=== PATIENT | female | born 1985 | race Caucasian/White ===

== ENCOUNTER 2022-12-25 10:53 | Outpatient (RCR) | payer OTHER, SELFPAY | END 2023-03-30 12:05 | disposition home or self-care (01) | LOC: PT 10:53 | PROVIDERS: Visit Provider Nurse Practitioner Family | DX: M26.609 Unspecified temporomandibular joint disorder, unspecified side (principal) | CPT/HCPCS: 20560; 20561; 97110; 97140; 97161; 97162 ==

== ENCOUNTER 2023-01-20 14:51 | Outpatient (OUT) | payer OTHER, SELFPAY ==
--- NOTE | 2023-01-20 15:01 | XR_ITS ---
The [address] [address] Patient Name: LADI YUN MRN: [id number] date: 1985 Sex: F Assigned Patient Location: [facility] Current Patient Location: [facility] Accession/Order Number: [id number] Exam Date: 01/20/2023 15:15 Report Date: 01/21/2023 07:26 At the request of: GINNY PATEL Procedure: XR cervical spine 2-3V EXAMINATION: XR cervical spine 2-3V HISTORY: Cervicalgia M54.2 COMPARISON: No relevant comparison available. FINDINGS: BONES: Normal alignment with no acute fracture or spondylolisthesis. Mild posterior degenerative spondylosis C5-C7 DISC SPACES: Normal. No significant disc height narrowing, subluxation, or endplate abnormality. PARASPINOUS: Negative. No paraspinous abnormality is seen. OTHER: Negative. XR/XR cervical spine 2-3V IMPRESSION: Mild posterior spondylosis C5-C7 Electronically authenticated by: NELL MAS Date: 01/21/2023 07:26
--- NOTE | 2023-01-20 15:01 | XR_ITS ---
[address] [address] Patient Name: LADI YUN MRN: [id number] date: 1985 Sex: F Assigned Patient Location: [facility] Current Patient Location: Accession/Order Number: [id number] Exam Date: 01/20/2023 15:15 Report Date: 01/21/2023 07:24 At the request of: GINNY PATEL Procedure: XR mandible min 4V PROCEDURE: XR mandible min 4V COMPARISON: None. 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 SOFT TISSUES:Negative. No visible soft tissue swelling. EFFUSION:None visible. OTHER: Negative. XR/XR mandible min 4V IMPRESSION: No acute radiographic abnormality Electronically authenticated by: NELL MAS Date: 01/21/2023 07:24
== END 2023-01-20 14:52 | disposition home or self-care (01) ==
LOC: RAD 14:54
PROVIDERS: PCP Nurse Practitioner Family; Visit Provider Nurse Practitioner Family
DX: M54.2 Cervicalgia (principal); M26.609 Unspecified temporomandibular joint disorder, unspecified side; R29.810 Facial weakness; M47.812 Spondylosis without myelopathy or radiculopathy, cervical region
CPT/HCPCS: 70110; 72040

== ENCOUNTER 2023-01-22 09:58 | Outpatient (RCR) | payer OTHER, SELFPAY | END 2023-03-10 12:04 | disposition home or self-care (01) | LOC: OT 09:58 | PROVIDERS: PCP Nurse Practitioner Family; Visit Provider Nurse Practitioner Family | DX: M54.2 Cervicalgia (principal); M50.30 Other cervical disc degeneration, unspecified cervical region | CPT/HCPCS: 97140; 97166; 97535 ==

== ENCOUNTER 2023-01-26 09:00 | Outpatient (OUT) | payer OTHER, SELFPAY ==
--- NOTE | 2023-01-26 09:04 | MR_ITS ---
The [address] [address] Patient Name: LADI YUN MRN: [id number] date: 1985 Sex: F Assigned Patient Location: MRI Current Patient Location: Accession/Order Number: [id number] Exam Date: 01/26/2023 09:05 Report Date: 01/27/2023 07:53 At the request of: GINNY PATEL Procedure: MR head/brain wo con EXAMINATION: MR head/brain wo con HISTORY: Facial Weakness R29.810 ; loss of sensation on right side of face; right hearing loss COMPARISON: No relevant comparison available. TECHNIQUE: A variety of imaging planes and parameters were utilized for visualization of suspected pathology. Images were performed without contrast. FINDINGS: CEREBRUM: No edema, hemorrhage, mass, acute infarction, or inappropriate atrophy. CEREBELLUM: Cerebellar tonsils extend 3 mm below the foramen magnum. No edema, hemorrhage, mass, acute infarction, or inappropriate atrophy. BRAINSTEM: No edema, hemorrhage, mass, acute infarction, or inappropriate atrophy. CSF SPACES: Ventricles, cisterns, and sulci are appropriate for age. No hydrocephalus, subarachnoid hemorrhage, or mass. SKULL: No mass or other significant visible lesion. SINUSES: Limited views demonstrate no significant mucosal thickening or fluid. ORBITS: Limited views are unremarkable. OTHER: Negative. MR/MR head/brain wo con IMPRESSION: 1. Cerebellar tonsillar ectopia. 2. Otherwise unremarkable brain. No specific findings to account for patient's symptoms. Electronically authenticated by: JACKY FRITZ Date: 01/27/2023 07:53
== END 2023-01-26 09:01 | disposition home or self-care (01) ==
LOC: MRI 09:00
PROVIDERS: PCP Nurse Practitioner Family; Visit Provider Nurse Practitioner Family
DX: R29.810 Facial weakness (principal); Q04.8 Other specified congenital malformations of brain; M26.609 Unspecified temporomandibular joint disorder, unspecified side; M54.2 Cervicalgia
CPT/HCPCS: 70551

== ENCOUNTER 2023-03-17 15:15 | Outpatient (OUT) | payer OTHER, SELFPAY ==
[2023-03-18 05:07] LABS: Varicella-Zoster V Ab, IgG 458 index (Immune >165)
== END 2023-03-17 15:16 | disposition home or self-care (01) ==
LOC: LAB 15:16
PROVIDERS: PCP Nurse Practitioner Family; Visit Provider Nurse Practitioner Family
DX: Z02.1 Encounter for pre-employment examination (principal)
CPT/HCPCS: 36415; 86787

== ENCOUNTER 2023-05-10 13:04 | Outpatient (RCR) | payer OTHER, SELFPAY | END 2023-06-01 15:04 | disposition home or self-care (01) | LOC: OT 13:04 | PROVIDERS: PCP Nurse Practitioner Family | DX: M54.2 Cervicalgia (principal); R68.84 Jaw pain; M54.9 Dorsalgia, unspecified | CPT/HCPCS: 97140; 97166 ==

== ENCOUNTER 2023-05-12 13:02 | Outpatient (RCR) | payer OTHER, SELFPAY | END 2023-06-01 15:05 | disposition home or self-care (01) | LOC: PT 13:02 | PROVIDERS: PCP Nurse Practitioner Family | DX: M54.2 Cervicalgia (principal); R68.84 Jaw pain; M54.9 Dorsalgia, unspecified | CPT/HCPCS: 97010; 97012; 97014; 97140; 97161 ==

== ENCOUNTER 2023-06-11 06:39 | Outpatient (RCR) | payer OTHER, SELFPAY | END 2023-07-04 08:00 | disposition home or self-care (01) | LOC: PT 06:39 | PROVIDERS: PCP Nurse Practitioner Family | DX: M54.2 Cervicalgia (principal); R68.84 Jaw pain; M54.9 Dorsalgia, unspecified | CPT/HCPCS: 97010; 97012; 97014; 97140; 97164 ==

== ENCOUNTER 2023-06-11 15:07 | Outpatient (RCR) | payer OTHER, SELFPAY | END 2023-07-04 08:13 | disposition home or self-care (01) | LOC: OT 15:07 | PROVIDERS: PCP Nurse Practitioner Family | DX: M54.2 Cervicalgia (principal); R68.84 Jaw pain; M54.9 Dorsalgia, unspecified | CPT/HCPCS: 97140 ==

== ENCOUNTER 2023-07-05 09:32 | Outpatient (RCR) | payer OTHER, SELFPAY | END 2023-11-09 16:12 | disposition home or self-care (01) | LOC: OT 09:32 | PROVIDERS: PCP Nurse Practitioner Family; Visit Provider Physician Assistant | DX: M54.2 Cervicalgia (principal); M54.9 Dorsalgia, unspecified; R68.84 Jaw pain | CPT/HCPCS: 97140; 97530; 97535 ==

== ENCOUNTER 2023-07-05 09:33 | Outpatient (RCR) | payer OTHER, SELFPAY | END 2023-07-30 15:29 | disposition home or self-care (01) | LOC: PT 09:33 | PROVIDERS: PCP Nurse Practitioner Family; Visit Provider Physician Assistant | DX: M54.2 Cervicalgia (principal); M54.9 Dorsalgia, unspecified; R68.84 Jaw pain ==

== ENCOUNTER 2023-11-12 09:31 | Outpatient (RCR) | payer OTHER, SELFPAY | END 2023-12-08 11:54 | disposition home or self-care (01) | LOC: PT 09:31 | PROVIDERS: PCP Nurse Practitioner Family | DX: M48.02 Spinal stenosis, cervical region (principal); G99.2 Myelopathy in diseases classified elsewhere | CPT/HCPCS: 97014; 97110; 97140; 97162 ==

== ENCOUNTER 2023-12-14 10:21 | Outpatient (OUT) | payer OTHER, SELFPAY ==
[2023-12-14 11:16] LABS: Basophils Percent Auto 0.6 % (0.2-2.0); Eosinophils Absolute Auto 0.1 10^3/uL (0.0-0.7); Eosinophils Percent Auto 1.2 % (0.9-7.0); Hematocrit 38.3 % (36.0-48.0); Hemoglobin 12.1 g/dL (12.0-16.0); Immature Granulocytes Abs Auto 0.04 10^3/uL (0.00-0.03); Immature Granulocytes Pct Auto 0.6 % (0.0-0.5); Lymphocytes Absolute Auto 2.7 10^3/uL (1.2-3.8); Lymphocytes Percent Auto 37.6 % (20.5-60.0); Mean Corpuscular HGB Conc 31.6 g/dL (29.9-35.2); Mean Corpuscular Hemoglobin 25.9 pg (26.7-34.0); Monocytes Absolute Auto 0.5 10^3/uL (0.3-0.8); Monocytes Percent Auto 7.2 % (1.7-12.0); Neutrophils Absolute Auto 3.8 10^3/uL (1.4-6.5); Neutrophils Percent Auto 52.8 % (43.0-75.0); Platelet Count 320 10^3/uL (150-450); Red Blood Count 4.67 10^6/uL (4.20-5.40); Red Cell Distribution Width 17.7 % (11.0-15.0); White Blood Count 7.2 10^3/uL (4.0-11.0)
[2023-12-14 11:26] LABS: INR 0.94; Partial Thromboplastin Time 29.3 sec (22.3-36.2)
[2023-12-14 11:38] LABS: Estimated Average Glucose 108 mg/dL; Glycohemoglobin A1C 5.4 % (4.5-6.2)
[2023-12-14 11:45] LABS: HCG Quantitative <1 mIU/mL; Thyroid Stimulating Hormone 0.741 uIU/mL (0.358-3.740)
[2023-12-14 12:01] LABS: Free T4 1.08 ng/dL (0.76-1.46)
== END 2023-12-14 10:22 | disposition home or self-care (01) ==
PROVIDERS: Visit Provider Physician Assistant
DX: N92.0 Excessive and frequent menstruation with regular cycle (principal)
CPT/HCPCS: 36415; 83036; 84439; 84443; 84702; 85025; 85610; 85730

== ENCOUNTER 2023-12-15 07:02 | Outpatient (OUT) | payer OTHER, SELFPAY ==
--- NOTE | 2023-12-15 07:06 | US_ITS ---
The [address] [address] Patient Name: LADI YUN MRN: [id number] date: 1985 Sex: F Assigned Patient Location: US Current Patient Location: Accession/Order Number: [id number] Exam Date: 12/15/2023 07:07 Report Date: 12/15/2023 07:43 At the request of: STEVENSON JAEGER Procedure: US pelvis w/ transvaginal EXAMINATION: US pelvis w/ transvaginal HISTORY: Menorrhagia N92.0 COMPARISON: No relevant comparison available. FINDINGS: Transabdominal and transvaginal images The uterus is normal in size, contour and echotexture measuring 6.6 x 2.7 x 3.9 cm. No focal mass. The uterus is anteverted. Endometrium measures 2 mm, normal. The ovaries were not visualized likely due to bowel gas. No free fluid US/US pelvis w/ transvaginal IMPRESSION: Nonvisualization of the ovaries Thin endometrial stripe Electronically authenticated by: NELL MAS Date: 12/15/2023 07:43
--- OUTSIDE RECORDS SUMMARY | 2023-12-15 07:06 | XMS_ITS | CCD ---
Author Organization [facility] Inform ion Partnership [facility] Care Team Providers Care Round Kiln Drawer Name Role Phone MIRIAM CAVAZOS Primary Care Unavailable PROVIDER, UNKNOWN Admitting Unavailable GENARO CASTELLANOS Attending Unavailable PATIENT, SELF Referring Unavailable TERESA PATEL Primary Care Physician Teresa Patel CNP Primary Care Provider Amara Palacio CNP Unavailable TERESA PATEL Admitting Unavailable TERESA PATEL Attending Unavailable RADHA, DR MONCADA Primary Care Unavailable TERESA PATEL Consulting Unavailable TERESA PATEL Admitting Unavailable TERESA PATEL Attending Unavailable RADHA, DR MONCADA Primary Care Unavailable WEST, DR CAMEJO Consulting Unavailable TERESA PATEL Consulting Unavailable MISC, DR ZIMMERMAN Admitting Unavailable MISC, DR ZIMMERMAN Attending Unavailable TERESA PATEL Primary Care Unavailable MISC, DR ZIMMERMAN Consulting Unavailable RADHA, DR MONCADA Primary Care Unavailable LOREE MARTEL Admitting Unavailable LOREE MARTEL Attending Unavailable LOREE MARTEL Consulting Unavailable RADHA, DR MONCADA Primary Care Unavailable PAY, DR PADILLA Admitting Unavailable PAY, DR PADILLA Attending Unavailable WEST, DR CAMEJO Consulting Unavailable PAY, DR PADILLA Consulting Unavailable RADHA, DR MONCADA Primary Care Unavailable ZULEYMA MARTELID Admitting Unavailable LOREE MARTEL Attending Unavailable WEST, DR CAMEJO Consulting Unavailable LOREE MARTEL Consulting Unavailable DWIGHT, TERESA Admitting Unavailable TERESA PATEL Attending Unavailable RADHA, DR MONCADA Primary Care Unavailable TERESA PATEL Admitting Unavailable TERESA PATEL Attending Unavailable RADHA, DR MONCADA Primary Care Unavailable DWIGHT TERESA Admitting Unavailable TERESA PATEL Attending Unavailable TERESA PATEL Primary Care Unavailable TERESA PATEL Consulting Unavailable Miriam Cavazos Primary Care Provider [phone] Dwight FINANCIAL INSTITUTION PRESIDENT, Teresa S Primary Care Provider Pia FINANCIAL INSTITUTION PRESIDENT, Amara Unavailable [phone] Miriam Cavazos Primary Care Unavailable KYLEE VALENCIA Attending Unavailable Mizanin ABA Reuben L Primary Care Provider Bonifacio ARBORIST CLIMBER, Nitza Unavailable Unavailable Dwight FINANCIAL INSTITUTION PRESIDENT, Teresa S Primary Care Provider Bonifacio ARBORIST CLIMBER, Nitza Unavailable Unavailable Elizabeth Piedra Unavailable PROVIDER, UNKNOWN Referring Unavailable MIZANIN, REUBEN L Primary Care Unavailable DWIGHT, TERESA S Primary Care Unavailable ZORAIDA VALLE Attending Unavailable TRISTAN GUALLPA Referring Unavailabl e ZORAIDA VALLE Referring Unavailable MIZANIN, REUBEN L Primary Care Unavailable MIZANIN, REUBEN L Attending Unavailable MAURICE LEÓN Referring Unavailable DWIGHT, TERESA S Primary Care Unavailable MAURICE LEÓN Referring Unavailable MAURICE LEÓN Attending Unavailable DWIGHT, TERESA S Primary Care Unavailable MIZANIN, REUBEN L Referring Unavailable MIZANIN, REUBEN L Primary Care Unavailable DWIGHT, TERESA S Primary Care Unavailable TRISTAN GUALLPA Attending Unavailabl e DWIGHT, TERESA S Primary Care Unavailable TRISTAN GUALLPA Referring Unavailabl e TRISTAN GUALLPA Attending Unavailabl e DWIGHT, TERESA S Referring Unavailable DWIGHT, TERESA S Primary Care Unavailable TRISTAN GUALLPA Attending Unavailabl e MIZANIN, REUBEN L Primary Care Unavailable HUY ASCENCIO Attending Unavailable MIZANIN, REUBNE L Referring Unavailable MIZANIN, REUBEN L Primary Care Unavailable BUTT, BILAL MISTY Referring Unavailable ZORAIDA VALLE Referring Unavailable ZORAIDA VALLE Attending Unavailable MIZANIN, REUBEN L Primary Care Unavailable DWIGHT, TERESA S Referring Unavailable DWIGHT, TERESA S Primary Care Unavailable TRISTAN GUALLPA Attending Unavailabl e MIZANIN, REUBEN L Primary Care Unavailable NAYANA MCLEAN Referring Unavailable MIZANIN, REUBEN L Primary Care Unavailable BUTT, BILAL MISTY Referring Unavailable MIZANIN, REUBEN L Primary Care Unavailable HUY ASCENCIO Attending Unavailable MIZANIN, REUBEN L Primary Care Unavailable ASCENCIO, HUY Referring Unavailable MAURICE LEÓN N Referring Unavailable HAZARIKA, SUROVI Attending Unavailable MIZANIN, REUBEN L Primary Care Unavailable MIZANIN, REUBEN L Primary Care Unavailable MIZANIN, REUBEN L Primary Care Unavailable BUTT, BILAL MISTY Referring Unavailable MIZANIN, REUBEN L Attending Unavailable MIZANIN, REUBEN L Primary Care Unavailable HAZARIKA, SUROVI Referring Unavailable MIZANIN, REUBEN L Primary Care Unavailable CHANTAL HUMPHREY Attending Unavailable MIZANIN, REUBEN L Referring Unavailable MIZANIN, REUBEN L Primary Care Unavailable TRISTAN GUALLPA Attending Unavailabl e Mizanin ABA Reuben L Primary Care Provider BUTT, BILAL MISTY Referring Unavailable MIZANIN, REUBEN L Primary Care Unavailable BUTT, BILAL MISTY Attending Unavailable BUTT, BILAL MISTY Referring Unavailable MIZANIN, REUBEN L Primary Care Unavailable BUTT, BILAL MISTY Attending Unavailable BUTT, BILAL MISTY Referring Unavailable MIZANIN, REUBEN L Primary Care Unavailable BUTT, BILAL MISTY Admitting Unavailable BUTT, BILAL MISTY Attending Unavailable MIZANIN, REUBEN L Primary Care Unavailable NAPOLEON BISHOP Consulting Unavailabl e BUTT, BILAL MISTY Attending Unavailable ASCENCIO, HUY Referring Unavailable MIZANIN, REUBEN L Primary Care Unavailable BUTT, BILAL MISTY Attending Unavailable BUTT, BILAL MISTY Referring Unavailable MIZANIN, REUBEN L Primary Care Unavailable Mikal Garcia Attending Unavailable Silas Durant Attending Unavailable Amara Palacio Attending Unavailable Jimmie Barkley Admitting Unavailable Jimmie Barkley Attending Unavailable Jimmie Barkley Referring Unavailable Erika Flores Attending Unavailable Erika Flores Admitting Unavailable BROOK PIERSON Attending Unavailable STEVENSON JAEGER Attending Unavailable Allergies Allergy Classification Reported Allergen(s) Allergy Type Date of Onset Reaction(s) Facility cariprazine (1 source) cariprazine Drug Allergy 2 Other: See Comments, Unknown [facility] DOPamine Antagonists (2 sources) Metoclopramide Drug Allergy 0 Other: See Comments, Mental Status Change [facility] Penicillins (antibiotic) (1 source) Penicillins Drug Allergy 9 [facility] (20 sources) Metoclopramide; Translations: [METOCLOPRAMIDE] Drug Allergy 0 Other: See Comments, rash [facility] (20 sources) Amoxicillin; Translations: [amoxicillin] Drug Allergy 3 Unknown (qualifier value), [facility] (20 sources) Amoxicillin / Clavulanate; Translations: [amoxicillin-clavu lanate] Drug Allergy [facility] (20 sources) cariprazine; Translations: [cariprazine] Drug Allergy 2 [facility] (20 sources) cariprazine; Translations: [CARIPRAZINE] Drug Allergy 2 Other: See Comments, Unknown [facility] (20 sources) Metoclopramide; Translations: [METOCLOPRAMIDE HCL] Drug Allergy 0 Mental Status Change [facility] Work Phone: (20 sources) Penicillins; Translations: [PENICILLINS] Drug Allergy 9 [facility] (20 sources) Iothalamic Acid; Translations: [IOTHALAMIC ACID] Drug Allergy 4 Other: See Comments [facility] (5 sources) Iothalamate; Translations: [iothalamate] Drug Allergy 4 Unknown [facility] Repository (2 sources) Penicillin Drug Allergy [facility] Repository (2 sources) Iothalamate; Translations: [iothalamate] Drug Allergy 4 [facility] Repository Medications Current Medications Medication Drug Class(es) Dates Sig (Normalized) Sig (Original) acetaminophen 325 mg / HYDROcodone bitartrate 5 mg oral tablet (4 sources) Opioid Agonist Start: 01-12-2022 [place] 325 mg-5 mg oral tablet 1 tab(s), Oral, q6hr as needed for pain, 7 tab(s), Refill(s) 0, [id number], 152, cm, 01/12/22 9:47:00 EDT, Height/Length Dosing, 68, kg, 01/12/22 9:47:00 EDT, Weight Dosing Start Date: 01/12/22 Status: Ordered [id number] 200 actuat albuterol 0.09 mg/actuat metered dose inhaler (20 sources) beta2-Adrenergic Agonist Start: 06-22-2023 End: 09-20-2023 take 1-2 puff(s) by inhalation every four hours as needed for wheezing albuterol HFA (PROVENTIL HFA) 90 mcg/actuation inhaler Inhale 1-2 Puffs as instructed every 4 hours as needed for wheezing/shortne ss of breath. 18 g 0 06/22/2023 Active Comment on above: Inhale 1-2 Puffs as instructed every 4 hours as needed for wheezing/shortness of breath. celecoxib 200 mg oral capsule (20 sources) Nonsteroidal Anti-inflammatory Drug Start: 04-09-2023 End: 12-13-2023 take 1 capsule by mouth once daily celecoxib (CELEBREX) 200 mg capsule take 1 capsule by mouth every day 30 capsule 5 12/13/2023 Active Comment on above: Take 1 capsule by mo ut once daily. TAKE 1 CAPSULE BY MO [facility] EVERY DAY cetirizine hydrochloride 10 mg oral tablet (20 sources) Histamine-1 Receptor Antagonist Start: 10-01-2023 take 1 tablet by mouth once daily at bedtime cetirizine (ZYRTEC) 10 mg tablet Take 1 tablet by mouth daily at bedtime. 90 tablet 1 10/01/2023 Active Start: 01-07-2022 take 1 tablet by layo th once daily at bedtime cetirizine (ZYRTEC) 10 mg tablet Take 10 mg by mouth daily at bedtime. 0 01/07/2022 Active Start: 11-30-2018 End: 03-19-2022 take 1 capsule by mouth once daily as needed cetirizine 10 mg oral capsule 10 mg = 1 cap(s), Oral, Daily, PRN for allergy symptoms, # 40 cap(s), Refills(s) 0 Start Date: 11/30/18 Status: Ordered Comment on above: Take by mouth. Take 10 mg by mouth daily at bedtime. Take 1 tablet by layo th daily at bedtime. clonazePAM 1 mg oral tablet (1 source) Benzodiazepine End: 03-19-20 take 1 tablet by mouth every twelve hours as needed clonazePAM (KLONOPIN) 1 mg tablet Take 1 mg by mouth twice daily as needed. 0 03/19/2022 Discontinued Comment on above: Take 1 mg by mouth t wice daily as needed. dicyclomine hydrochloride 10 mg oral capsule (20 sources) Anticholinergic Start: 12-25-19 23 take 1 capsule by mouth four times daily as needed Bentyl 10 mg Cap 10 mg = 1 cap(s), Oral, QID, PRN Other (see comment), For abdominal cramping, # 16 cap(s), Refills(s) 0, Pharmacy: [facility] #[id number], 152, cm, 12/23/22 19:46:00 EDT, Height/Length Dosing, 58, kg, 12/23/22 19:46:00 EDT, Weight Dosing Start Date: 12/24/22 Status: Ordered Start: 11-14-2021 End: 08-05-2022 take 1 capsule by mouth four times daily Bentyl 10 mg Cap 10 mg = 1 cap(s), Oral, QID, X 7 day(s), # 28 cap(s), Refills(s) 0, Pharmacy: [facility]/pharmacy #[id number], 152, cm, 07/29/22 2:29:00 EST, Height/Length Dosing, 64, kg, 07/29/22 2:29:00 EST, Weight Dosing Start Date: 07/29/22 Stop Date: 08/05/22 Status: Ordered Comment on above: 1 capsule. DULoxetine 60 mg delayed release oral capsule (1 source) Serotonin and Norepinephrine Reuptake Inhibitor Start: 09-09-19 17 take 1 capsule by mouth once daily duloxetine (CYMBALTA) 60 MG capsule Take 1 Capsule by mouth daily. 30 Capsule 5 09/08/2016 Active Ethinyl Estradiol / Ferrous fumarate / Norethindrone (20 sources) Estrogen Start: 07-25-19 24 take 1 tablet by mouth once BLISOVI 24 FE 1 mg-20 mcg (24)/75 mg (4) Take 1 tablet by mouth every afternoon. 0 07/25/2023 Active Blisovi 24 Fe 1- 20 MG-MCG(24) Oral for 84 Days Active Comment on above: Take 1 tablet by layo th every afternoon. fenofibrate 48 mg oral tablet (1 source) Peroxisome Proliferator Receptor alpha Agonist Start: 10-09-2021 take 1 tablet by mouth once daily TriCor 48 mg Tab 48 mg = 1 tab(s), Oral, Daily, # 30 tab(s), Refills(s) 0 Start Date: 10/09/21 Status: Ordered fidaxomicin 200 mg oral tablet (5 sources) Macrolide Antibacterial Start: 03-19-2022 take 1 tablet by mouth twice daily Dificid 200 mg oral tablet 200 mg = 1 tab(s), Oral, BID, # 20 tab(s), Refills(s) 0, Pharmacy: [facility]/pharmacy #[id number], 152, cm, 03/19/22 14:05:00 EDT, Height/Length Dosing, 68.2, kg, 03/19/22 14:05:00 EDT, Weight Dosing Start Date: 03/19/22 Status: Ordered Start: 02-09-2022 Dificid 200 mg oral tablet Refills(s) 0, Infection or prophylaxis for antibiotics Start Date: 02/09/22 Status: Ordered folic acid 1 mg oral tablet (3 sources) Start: 11-07-2022 take 1 tablet by mouth once daily folic acid 1 mg Tab 1 mg = 1 tab(s), Oral, Daily, # 30 tab(s), Refills(s) 0, Pharmacy: [facility]/pharmacy #[id number], 152.4, cm, 11/06/22 14:36:00 EDT, Height/Length Dosing, 59.5, kg, 11/06/22 14:36:00 EDT, Weight Dosing Start Date: 11/07/22 Status: Ordered gabapentin 100 mg oral capsule (20 sources) Anti-epilepti c Agent Start: 10-22-2023 End: 11-21-2023 take 2 capsules by mouth every twelve hours gabapentin (NEURONTIN) 100 mg capsule Take 2 capsules by mouth every 12 hours for 30 days. 120 capsule 0 10/22/2023 Active Start: 07-19-2023 End: 02-28-2024 take 2 capsules by mouth twice daily gabapentin (NEURONTIN) 100 mg capsule TAKE 2 CAPSULES BY MOUTH TWICE A DAY FOR 90 DAYS 120 capsule 2 11/30/2023 02/28/2024 Active Start: 03-26-2023 End: 06-24-2023 take 2 capsules by mouth twice daily gabapentin (NEURONTIN) 100 mg capsule Take 2 capsules by mouth twice daily for 90 days. 120 capsule 2 03/26/2023 Active Gabapentin 100 M G Oral for 30 Days Active Comment on above: Take 2 capsules by m outh twice daily for 90 days. TAKE 2 CAPSULES BY M OUTH TWICE A DAY FOR 90 DAYS Take 2 capsules by m outh two times a day for 90 days. Take 2 BID Take 2 capsules by m outh every 12 hours for 30 days. 12 hr guaiFENesin 600 mg extended release oral tablet (20 sources) guaiFENesin (MUCINEX) 600 mg 12 hr tablet Take 1,200 mg by mouth twice daily as needed for cold/allergy symptoms. 0 Active Comment on above: Take 1,200 mg by layo th twice daily as needed for cold/allergy symptoms. ibuprofen 800 mg oral tablet (1 source) Nonsteroidal Anti-inflammatory Drug Start: 12-19-19 End: 03-19-20 take 1 tablet by mouth every eight hours as needed ibuprofen (MOTRIN) 800 mg tablet Take 1 tablet by mouth every 8 hours as needed. 30 tablet 0 12/18/2018 03/19/2022 Discontinued Comment on above: Take 1 tablet by [facility] every 8 hours as needed. lamoTRIgine (1 source) Mood Stabilizer, Anti-epileptic Agent End: 03-19-20 lamotrigine (LAMICTAL ORAL) Take by mouth. 0 03/19/2022 Discontinued Comment on above: Take by mouth. lisdexamfetamine dimesylate 20 mg oral capsule (20 sources) Central Nervous System Stimulant Start: 12-04-19 End: 04-09-20 VYVANSE 30 mg capsule Start: 07-29-2022 take 1 capsule by [facility] once daily VYVANSE 20 mg capsule Take 20 mg by mouth once daily. 0 03/24/2023 Active Comment on above: TAKE 1 CAPSULE BY MO [facility] EVERY DAY IN THE MORNING FOR 30 DAYS lurasidone hydrochloride 40 mg oral tablet (1 source) Atypical Antipsychotic End: 03-19-20 lurasidone (LATUDA) 40 mg tablet Take by mouth. 0 03/19/2022 Discontinued Comment on above: Take by mouth. magnesium oxide 400 mg oral tablet (1 source) Start: 01-13-20 End: 01-18-20 take 1 tablet by mouth once daily magnesium oxide 400 mg Tab 400 mg = 1 tab(s), Oral, Daily, X 5 day(s), # 5 tab(s), Refills(s) 0, Pharmacy: [facility]/pharmacy #[id number], 152, cm, 01/12/22 9:47:00 EDT, Height/Length Dosing, 68, kg, 01/12/22 9:47:00 EDT, Weight Dosing Start Date: 01/12/22 Stop Date: 01/17/22 Status: Ordered magnesium sulfate 225 MG / potassium chloride 188 MG / sodium sulfate 1479 MG Oral Tablet [Sutab] (2 sources) Start: 07-30-19 take 1 tablet by mouth once Sutab oral tablet See Instructions, 1 EA, Refill(s) 0, Please follow instructions per packaging and physician's handout, [facility]/pharmacy #[id number], 152, cm, 07/30/22 12:41:00 EST, Height/Length Dosing, 65, kg, 07/30/22 12:41:00 EST, Weight Dosing Start Date: 07/30/22 Status: Ordered melatonin 3 mg oral tablet (20 sources) Start: 11-08-19 take 1 tablet by mouth at bedtime as needed for sleep melatonin 3 mg Tab 3 mg = 1 tab(s), Oral, Bedtime, PRN Sleep, # 30 tab(s), Refills(s) 0, [id number] 152.4, cm, 11/06/22 14:36:00 EDT, Height/Length Dosing, 59.5, kg, 11/06/22 14:36:00 EDT, Weight Dosing Start Date: 11/07/22 Status: Ordered Comment on above: Take 3 mg by mouth. metoprolol tartrate 25 mg oral tablet (20 sources) beta-Adrenergic Jeanna Start: 02-03-20 take 1 mg by mouth twice daily Metoprolol tartrate 25 mg Tab mg tab(s), Oral, BID, Refills(s) 0 Start Date: 02/02/22 Status: Ordered Start: 01-30-2022 End: 03-18-2023 take 1 tablet by mouth twice daily metoprolol tartrate, short acting, (LOPRESSOR) 50 mg tablet Take 50 mg by mouth twice daily. 0 01/30/2022 03/18/2023 Discontinued Comment on above: Take 50 mg by mouth twice daily. montelukast (1 source) Leukotriene Receptor Antagonist End: 03-19-20 montelukast sodium (SINGULAIR ORAL) Take 30 mg by mouth. 0 03/19/2022 Discontinued Comment on above: Take 30 mg by mouth. nicotine 21 mg/24 hr Transderm ER Film (1 source) Start: 10-13-19 nicotine 21 mg/24 hr Transderm ER Film 1 patch(es), TransDermal, Daily, 30 EA, Refill(s) 0, [facility]/pharmacy #[id number], 152.4, cm, 10/09/21 9:00:00 EDT, Height/Length Dosing, 78, kg, 10/09/21 9:00:00 EDT, Weight Dosing Start Date: 10/12/21 Status: Ordered OLANZapine 5 mg oral tablet (11 sources) Atypical Antipsychotic Start: 09-09-19 take 3 tablets by mouth once daily OLANZapine (ZYPREXA) 5 mg tablet Take 15 mg by mouth once daily. 0 09/09/2023 Active Start: 09-09-2023 take 1 tablet by layo once daily OLANZapine (ZYPREXA) 5 mg tablet Take 5 mg by mouth once daily. 0 09/09/2023 Active Comment on above: Take 5 mg by mouth o nce daily. omeprazole 40 mg delayed release oral capsule (12 sources) Proton Pump Inhibitor Start: 2 End: 3 take 1 capsule by mouth once daily omeprazole (PRILOSEC) 40 mg capsule Take 40 mg by mouth once daily. 0 02/16/2022 03/18/2023 Discontinued Start: 02-12-2014 End: 03-19-2022 omeprazole (PRILOSEC) 20 mg capsule Comment on above: Take 40 mg by mouth once daily. ondansetron 4 mg oral tablet (8 sources) Serotonin-3 Receptor Antagonist Start: 10-14-2021 take 1 tablet by mouth every eight hours as needed for nausea Zofran 4 mg Tab 4 mg = 1 tab(s), Oral, q8hr, PRN Nausea/Vomiting, # 12 tab(s), Refills(s) 0, Pharmacy: [facility]/pharmacy #[id number], 152, cm, 10/13/21 23:36:00 EDT, Height/Length Dosing, 71.7, kg, 10/13/21 23:36:00 EDT, Weight Dosing Start Date: 10/14/21 Status: Ordered Start: 10-12-2021 take 1 tablet by layo th every eight hours as needed for nausea Zofran 4 mg Tab 4 mg = 1 tab(s), Oral, q8hr, PRN Nausea/Vomiting, # 12 tab(s), Refills(s) 0, Pharmacy: [facility]/pharmacy #[id number], 152.4, cm, 10/09/21 9:00:00 EDT, Height/Length Dosing, 78, kg, 10/09/21 9:00:00 EDT, Weight Dosing Start Date: 10/12/21 Status: Ordered End: 04-09-2023 ondansetron (ZOFRAN) 8 mg ta blet Take 1 tablet by mouth. 0 04/09/2023 Discontinued Comment on above: Take 1 tablet by layo th. oxyCODONE hydrochloride 5 mg oral tablet (10 sources) Opioid Agonist Start: 09-27-2023 End: 10-04-2023 oxyCODONE IR (ROXICODONE) 5 mg immediate release tablet Indications: Postoperative pain One BID 14 tablet 0 09/27/2023 10/04/2023 Active Start: 09-07-2023 End: 09-14-2023 take 1 tablet by mouth every four hours as needed for pain oxyCODONE IR (ROXICODONE) 5 mg immediate release tablet Indications: Postoperative pain Take 1 tablet by mouth every 4 hours as needed for pain for up to 7 days. 42 tablet 0 09/07/2023 09/14/2023 Start: 08-25-2023 End: 09-01-2023 take 1 tablet by mouth every four hours as needed for pain oxyCODONE IR (ROXICODONE) 5 mg immediate release tablet Indications: Postoperative pain Take 1 tablet by mouth every 4 hours as needed for pain for up to 7 days. 42 tablet 0 08/25/2023 09/01/2023 Comment on above: Take 1 tablet by layo th every 4 hours as needed for pain for up to 7 days. One BID pantoprazole 40 mg delayed release oral tablet (20 sources) Proton Pump Inhibitor Start: take 1 tablet by mouth once pantoprazole DR (PROTONIX) 40 mg tablet Take 1 tablet by mouth every afternoon. 0 03/20/2023 Active Start: 10-12-2021 take 1 tablet by layo th twice daily Protonix 40 mg Tab-EC 40 mg = 1 tab(s), Oral, BID, # 60 tab(s), Refills(s) 0, [id number] 152.4, cm, 10/09/21 9:00:00 EDT, Height/Length Dosing, 78, kg, 10/09/21 9:00:00 EDT, Weight Dosing Start Date: 10/12/21 Status: Ordered Comment on above: Take 1 tablet by layo th every afternoon. promethazine hydrochloride 25 mg rectal suppository (20 sources) Phenothiazine Start: 3 End: 3 take 25 mg rectal route every six hours as needed for nausea Phenergan 25 mg Supp 25 mg = 1 supp, Rectal, q6hr, PRN Nausea/Vomiting, # 6 EA, Refills(s) 0, [id number] 152, cm, 12/23/22 19:46:00 EDT, Height/Length Dosing, 58, kg, 12/23/22 19:46:00 EDT, Weight Dosing Start Date: 12/24/22 Status: Ordered Start: 10-20-2022 take 1 tablet by layo th every six hours as needed for nausea promethazine 25 mg Tab 25 mg = 1 tab(s), Oral, q6hr, PRN as needed for nausea/vomiting, # 16 tab(s), Refills(s) 0, [id number], 152.4, cm, 10/20/22 0:45:00 EDT, Height/Length Dosing, 61.2, kg, 10/20/22 0:45:00 EDT, Weight Dosing Start Date: 10/20/22 Status: Ordered Start: 11-13-2021 End: 04-09-2023 promethazine (PHENERGAN) 25 mg tablet Take 0.5 mg by mouth. 0 11/13/2021 04/09/2023 Discontinued Comment on above: Take 0.5 mg by mouth . UNWRAP AND INSERT 1 SUPPOSITORY RECTALLY EVERY 6 HOURS NEEDED FOR NAUSEA AND VOMITING 24 hr propranolol hydrochloride 80 mg extended release oral capsule (20 sources) beta-Adrenergic Jeanna Start: 4 End: 4 take 1 capsule by mouth once daily propranolol ER (INDERAL LA) 80 mg 24 hr capsule take 1 capsule by mouth every day 90 capsule 1 11/16/2023 Active Start: 06-25-2023 propranolol (I NDERAL) 20 mg tablet Indications: Palpitations Take 1 tablet by mouth as directed. Take 20 mg as needed for sustained palpitations. Can repeat 20 mg every 6-8 hrs if needed. 30 tablet 1 06/25/2023 Active Propranolol HCl 20 MG Oral for 8 Days Active Comment on above: Take 1 tablet by layo as directed. Take 20 mg as needed for sustained palpitations. Can repeat 20 mg every 6-8 hrs if needed. Take 1 capsule by mo [facility] once daily. Protonix 40 mg Tab-EC (3 sources) Start: take 1 tablet by mouth twice daily Protonix 40 mg Tab-EC 40 mg = 1 tab(s), Oral, BID, # 60 tab(s), Refills(s) 0, Pharmacy: [facility]/pharmacy #[id number], 152.4, cm, 10/09/21 9:00:00 EDT, Height/Length Dosing, 78, kg, 10/09/21 9:00:00 EDT, Weight Dosing Start Date: 10/12/21 Status: Ordered Pseudoephedrine (4 sources) alpha-Adrenergic Agonist End: 023 take 1 tablet by mouth once daily pseudoephedrine HCl (SUDAFED 12 HOUR ORAL) Take 1 tablet by mouth once daily. 0 03/18/2023 Discontinued take 1 tablet by mouth once shani y pseudoephedrine HCl (SUDAFED 12 HOUR ORAL) Take 1 tablet by mouth once daily. 0 Active Comment on above: Take 1 tablet by laoy once daily. psyllium 525 mg oral capsule (6 sources) Start: 10-22-2022 End: 01-20-2023 take 2 capsules by mouth once daily Metamucil 525 mg oral capsule 1,050 mg = 2 cap(s), Oral, Daily, X 90 day(s), # 180 cap(s), Refills(s) 0, Pharmacy: [facility]/pharmacy #[id number], 152.4, cm, 10/22/22 10:27:00 EDT, Height/Length Dosing, 61.9, kg, 10/22/22 10:27:00 EDT, Weight Dosing Start Date: 10/22/22 Stop Date: 01/20/23 Status: Ordered sucralfate 1000 mg oral tablet (12 sources) Aluminum Complex Start: 10-20-2022 End: 11-03-2022 take 1 tablet by mouth four times daily sucralfate 1 g Tab 1 gm = 1 tab(s), Oral, QID, X 14 day(s), # 56 tab(s), Refills(s) 0, Pharmacy: [facility]/pharmacy #[id number], 152.4, cm, 10/20/22 0:45:00 EDT, Height/Length Dosing, 61.2, kg, 10/20/22 0:45:00 EDT, Weight Dosing Start Date: 10/20/22 Stop Date: 11/03/22 Status: Ordered Start: 07-29-2022 End: 08-12-2022 take 1 tablet by mouth four times daily Carafate 1 gram Tab 1 gm = 1 tab(s), Oral, QID, X 14 day(s), # 56 tab(s), Refills(s) 0, Pharmacy: [facility]/pharmacy #[id number], 152, cm, 07/29/22 2:29:00 EST, Height/Length Dosing, 64, kg, 07/29/22 2:29:00 EST, Weight Dosing Start Date: 07/29/22 Stop Date: 08/12/22 Status: Ordered Start: 10-14-2021 take 1 tablet by layo th four times daily Carafate 1 gram Tab 1 gm = 1 tab(s), Oral, QID, # 240 tab(s), Refills(s) 0, Pharmacy: [facility]/pharmacy #[id number], 152, cm, 10/13/21 23:36:00 EDT, Height/Length Dosing, 71.7, kg, 10/13/21 23:36:00 EDT, Weight Dosing Start Date: 10/14/21 Status: Ordered Start: 10-14-2021 take 1 tablet by layo th four times daily Carafate 1 gram Tab 1 gm = 1 tab(s), Oral, QID, # 240 tab(s), Refills(s) 0, Pharmacy: [facility]/pharmacy #[id number], 152, cm, 10/13/21 23:36:00 EDT, Height/Length Dosing, 71.7, kg, 10/13/21 23:36:00 EDT, Weight Dosing Start Date: 10/14/21 Status: Ordered Start: 10-12-2021 take 2 tablets by mo uth four times daily Carafate 1 gram Tab 2 gm = 2 tab(s), Oral, QID, # 240 tab(s), Refills(s) 0, [id number] 152.4, cm, 10/09/21 9:00:00 EDT, Height/Length Dosing, 78, kg, 10/09/21 9:00:00 EDT, Weight Dosing Start Date: 10/12/21 Status: Ordered SUMAtriptan 50 mg oral tablet (20 sources) Serotonin-1b and Serotonin-1d Receptor Agonist Start: 02-28-2022 take 1 tablet by mouth twice daily as needed for headache SUMAtriptan (IMITREX) 50 mg tablet TAKE 1 TABLET BY MOUTH TWICE DAILY NEEDED AT ONSET OF HEADACHE MAY REPEAT IN 1 HOUR 0 02/28/2022 Active Start: 01-23-2004 End: 03-19-2022 take 1 tablet by mouth once daily as needed for headache Imitrex 100 mg Tab 100 mg = 1 tab(s), Oral, Daily, PRN as needed for migraine headache, Refills(s) 0 Start Date: 11/30/18 Status: Ordered Comment on above: 1 at onset, may repe at x 1. TAKE 1 TABLET BY LAYO TWICE DAILY NEEDED AT ONSET OF HEADACHE MAY REPEAT IN 1 HOUR tiZANidine 4 mg oral tablet (13 sources) Central alpha-2 Adrenergic Agonist Start: 024 End: 024 take 1 tablet by mouth every six hours as needed tiZANidine (ZANAFLEX) 4 mg tablet Take 1 tablet by mouth every 6 hours as needed. 360 tablet 1 09/30/2023 12/29/2023 Active Comment on above: Take 1 tablet by layo th every 6 hours as needed. traZODone hydrochloride 100 mg oral tablet (1 source) Serotonin Reuptake Inhibitor Start: take 1 tablet by mouth once daily at bedtime traZODONE 100 mg Tab 100 mg = 1 tab(s), Oral, Once a day (at bedtime), # 30 tab(s), Refills(s) 5, Pharmacy: [facility] [id number], 160, cm, 03/20/20 16:08:00 EDT, Height/Length Dosing, 79.7, kg, 03/20/20 16:08:00 EDT, Weight Dosing Start Date: 03/20/20 Status: Ordered triamcinolone acetonide 1 mg/ml topical cream (1 source) Corticosteroid Start: Triamcinolone Acetonide 0.1 % 1 application to affected area Externally Twice a day for 14 days Jul, Active vancomycin 125 mg oral capsule (2 sources) Glycopeptide Antibacterial Start: End: take 1 capsule by mouth every six hours vancomycin 125 mg Cap 125 mg = 1 cap(s), Oral, q6hr, X 8 day(s), # 32 cap(s), Refills(s) 0, 0, Stop date 10/20/21 10:07:00 EDT, Route to Pharmacy Electronically, Pharmacy: [facility]/pharmacy #[id number], 152.4, cm, 10/09/21 9:00:00 EDT, Height/Length Dosing, 78, kg, 10/09/21 9:00:00 E... Start Date: 10/12/21 Stop Date: 10/20/21 Status: Ordered vitamin b12 1 mg oral tablet (20 sources) Vitamin B12 Start: take 1 tablet by mouth once cyanocobalamin (VITAMIN B-12) 1,000 mcg tab Take 1 tablet by mouth every afternoon. 0 07/27/2023 Active Start: 11-07-2022 End: 04-09-2023 take 1 tablet by mouth once daily VITAMIN B-12 1,000 mcg tab Take 1,000 mcg by mouth once daily. 0 11/07/2022 04/09/2023 Discontinued Comment on above: Take 1,000 mcg by mo uth once daily. Take 1 tablet by layo every afternoon. Vitamin B12 1000 mcg Tab (3 sources) Start: 11-07-2022 take 1 tablet by mouth once daily Vitamin B12 1000 mcg Tab 1,000 mcg = 1 tab(s), Oral, Daily, # 30 tab(s), Refills(s) 0, Pharmacy: [facility]/pharmacy #[id number], 152.4, cm, 11/06/22 14:36:00 EDT, Height/Length Dosing, 59.5, kg, 11/06/22 14:36:00 EDT, Weight Dosing Start Date: 11/07/22 Status: Ordered Completed/Discontinued Medications Medication Drug Class(es) Dates Sig (Normalized) Sig (Original) busPIRone hydrochloride 10 mg oral tablet (20 sources) Start: 02-23-2022 End: 09-10-2023 take 1 tablet by mouth three times daily busPIRone (BUSPAR) 10 mg tablet Take 10 mg by mouth three times a day. 0 02/23/2022 09/10/2023 Discontinued Start: 02-19-2022 take 10 mg by mouth twice shani y busPIRone 10 mg, Oral, BID, Refills(s) 0 Start Date: 02/19/22 Status: Ordered Comment on above: TAKE 1 TABLET BY LAYO TWICE A DAY FOR 30 DAYS Take 10 mg by mouth three times a day. cyclobenzaprine hydrochloride 10 mg oral tablet (20 sources) Muscle Relaxant Start: 08-25-19 End: 09-14-19 take 1 tablet by mouth three times daily cyclobenzaprine (FLEXERIL) 10 mg tablet Take 1 tablet by mouth three times a day for 20 days. 30 tablet 1 08/25/2023 09/10/2023 Discontinued Start: 12-21-2022 End: 09-10-2023 take 1 tablet by mouth once daily as needed cyclobenzaprine (FLEXERIL) 5 mg tablet Take 1 tablet by mouth once daily as needed. 0 12/21/2022 09/10/2023 Discontinued Comment on above: Take 1 tablet by layo once daily as needed. Take 1 tablet by layo three times a day for 20 days. docusate sodium 100 mg oral capsule (9 sources) Start: 08-25-2023 End: 09-24-2023 take 1 capsule by mouth twice daily docusate sodium (COLACE) 100 mg capsule Take 1 capsule by mouth two times a day. 60 capsule 0 08/25/2023 09/10/2023 Discontinued Start: 05-05-2016 take 1 capsule by [facility] twice daily docusate sodium (COLACE) 100 MG capsule Take 1 Capsule by mouth 2 times daily. 60 Capsule 3 05/05/2016 Active Comment on above: Take 1 capsule by [facility] two times a day. etonogestrel 68 mg drug implant (7 sources) Progestin Start: 12-09-19 End: 03-26-20 etonogestrel (NEXPLANON) 68 mg impl subdermal implant Inject 68 mg subcutaneously. 0 12/08/2018 03/26/2023 Discontinued Comment on above: Inject 68 mg subcuta neously. hydrOXYzine hydrochloride 25 mg oral tablet (20 sources) Antihistamine Start: 09-09-19 End: 09-10-19 hydrOXYzine HCl (ATARAX) 25 mg tablet lithium carbonate 300 mg oral capsule (2 sources) End: 04-09-20 take 1 capsule by mouth three times daily lithium carbonate (ESKALITH) 300 mg capsule TAKE ONE CAPSULE BY MOUTH THREE TIMES A DAY FOR 30 DAYS 0 04/09/2023 Discontinued Comment on above: TAKE ONE CAPSULE BY MOUTH THREE TIMES A DAY FOR 30 DAYS mupirocin 0.02 mg/mg topical ointment (2 sources) RNA Synthetase Inhibitor Antibacterial Start: 08-05-19 End: 08-10-19 mupirocin (BACTROBAN) 2 % ointment Apply 0.5 inch with cotton swab (Q-tip) to each nostril in the morning and evening for 5 days prior to and including day of surgery. Patient should start on August 05, 2023. 22 g 0 08/05/2023 08/10/2023 Comment on above: Apply 0.5 inch with cotton swab (Q-tip) to each nostril in the morning and evening for 5 days prior to and including day of surgery. Patient should start on August 05, 2023. naproxen 250 mg oral tablet (8 sources) Nonsteroidal Anti-inflammatory Drug End: 04-09-20 take 1 tablet by mouth twice daily naproxen (NAPROSYN) 250 mg tablet Take 1 tablet by mouth two times a day. 0 Active Comment on above: Take 250 mg by mouth two times a day with meals. Take 1 tablet by [facility] two times a day. Nexplanon 68 mg subcutaneous implant (1 source) Start: 12-09-19 Nexplanon 68 mg subcutaneous implant 68 mg = 1 EA, Refills(s) 0 Start Date: 12/08/18 Status: Ordered norgestimate-ethinyl estradiol (MARIA EUGENIA ORAL) (16 sources) take 1 tablet by mouth once daily norgestimate-ethinyl estradiol (MARIA EUGENIA ORAL) Take 1 tablet by mouth once daily. 0 Active Comment on above: Take 1 tablet by layo th once daily. potassium chloride 20 meq extended release oral tablet (13 sources) Start: 12-25-19 End: 04-09-20 take 1 tablet by mouth once daily potassium chloride 20 mEq TbER TAKE 1 TABLET BY MOUTH EVERY DAY FOR 5 DAYS 0 12/24/2022 04/09/2023 Discontinued Start: 11-14-2021 take 1 tablet by layo th once daily as needed for diarrhea potassium chloride 20 mEq ER Tab 20 mEq = 1 tab(s), Oral, Daily, PRN when you have diarrhea, # 30 tab(s), Refills(s) 0, Pharmacy: [facility]/pharmacy #[id number], 152, cm, 11/13/21 12:21:00 EDT, Height/Length Dosing, 72.9, kg, 11/13/21 12:21:00 EDT, Weight Dosing Start Date: 11/14/21 Status: Ordered Comment on above: TAKE 1 TABLET BY LAYO TH EVERY DAY FOR 5 DAYS 28-0.8 MG (1 source) Start: 1 take 1 tablet by mouth once daily as needed 28-0.8 MG 1 tablet Orally Once a day for 30 day(s) Sep, Not-Taking/PRN QUEtiapine 50 mg oral tablet (15 sources) Atypical Antipsychotic Start: 4 End: 4 take 1 tablet by mouth once daily at bedtime QUEtiapine (SEROQUEL) 50 mg tablet Take 1 tablet by mouth daily at bedtime. 0 08/06/2023 09/10/2023 Discontinued Start: 02-25-2023 End: 04-09-2023 take 1 tablet by mouth once daily in the evening QUEtiapine XR (SEROQUEL XR) 50 mg Tb24 TAKE 1 TABLET BY MOUTH EVERY DAY IN THE EVENING FOR 30 DAYS 0 02/25/2023 04/09/2023 Discontinued Start: 09-08-2016 quetiapine (SE ROQUEL) 200 MG tablet Take one at bedtime 30 Tablet 5 09/08/2016 Active Comment on above: TAKE 1 TABLET BY LAYO TH EVERY DAY IN THE EVENING FOR 30 DAYS Take 1 tablet by layo th daily at bedtime. Problems Active Problems Problem Classification Problem Date Documented Da te Episodic/Chronic Abdominal pain (14 sources) Abdominal pain; Translations: [Unspecified abdominal pain] Onset: 2 Episodic Administrative/social admission (2 sources) Patient encounter status; Translations: [Persons encountering health services in other specified circumstances] 04-07-2023 Episodic Allergic reactions (1 source) Irritant contact dermatitis, unspecified cause Episodic Anxiety disorders (20 sources) Anxiety disorder; Translations: [Chronic post-traumatic stress disorder] Onset: 2 01-31-2019 Chronic Cardiac dysrhythmias (2 sources) Supraventricular tachycardia; Translations: [Supraventricular tachycardia] Onset: 3 Chronic Conduction disorders (20 sources) Unspecified right bundle-branch block; Translations: [Right bundle branch block] Onset: 2 04-07-2023 Chronic Diseases of white blood cells (20 sources) Leukocytosis; Translations: [Elevated white blood cell count, unspecified] Onset: 2 Chronic Disorders of lipid metabolism (1 source) Hyperlipidemia; Translations: [Hyperlipidemia, unspecified] Onset: 2 Chronic Esophageal disorders (17 sources) Gastroesophageal reflux disease without esophagitis; Translations: [Gastro-esophageal reflux disease without esophagitis] Onset: 2 Chronic Essential hypertension (3 sources) Elevated blood pressure; Translations: [Essential (primary) hypertension] Onset: 3 04-07-2023 Chronic Fluid and electrolyte disorders (20 sources) Hypokalemia; Translations: [Hypokalemia] Onset: 2 Episodic Gastritis and duodenitis (1 source) Gastritis; Translations: [Gastritis, unspecified, without bleeding] Onset: 2 Episodic Gastroduodenal ulcer (except hemorrhage) (20 sources) Gastric ulcer; Translations: [Gastric ulcer, unspecified as acute or chronic, without hemorrhage or perforation] Onset: 2 Chronic Gastrointestinal hemorrhage (1 source) Hematemesis; Translations: [Hematemesis] Onset: 2 Episodic Headache; including migraine (20 sources) Migraine; Translations: [Migraine] Onset: 3 Resolved: 3 10-29-2003 Chronic Hemorrhoids (9 sources) Hemorrhoids; Translations: [Unspecified hemorrhoids] Onset: 3 Episodic Intestinal infection (20 sources) Clostridium difficile colitis; Translations: [Enterocolitis due to Clostridium difficile, not specified as recurrent] Onset: 2 Episodic Comment on above: Problem added second remigio to positive C-Diff lab result. Problem added second remigio to positive C-Diff lab result. Mood disorders (20 sources) Mixed bipolar affective disorder, mild; Translations: [Bipolar disorder] Onset: 6 Resolved: 6 04-03-2020 Chronic Nausea and vomiting (20 sources) Nausea and vomiting; Translations: [Nausea with vomiting, unspecified] Onset: 2 Episodic Nervous system congenital anomalies (20 sources) Cerebellar disorder; Translations: [Other specified congenital malformations of brain] Onset: 3 04-07-2023 Chronic Other connective tissue disease (2 sources) H/O: musculoskeletal disease; Translations: [Personal history of other diseases of the musculoskeletal system and connective tissue] 02-26-2023 Episodic Other disorders of stomach and duodenum (1 source) Cyclical vomiting syndrome; Translations: [Cyclical vomiting syndrome unrelated to migraine] Onset: 3 Episodic Other gastrointestinal disorders (20 sources) Irritable bowel syndrome; Translations: [Other irritable bowel syndrome] Onset: 3 04-09-2023 Chronic Other gastrointestinal disorders (13 sources) Diarrhea; Translations: [Diarrhea, unspecified] Onset: 2 Episodic Other gastrointestinal disorders (1 source) Diarrhea of presumed infectious origin; Translations: [Diarrhea, unspecified] Episodic Other gastrointestinal disorders (1 source) Abnormal feces; Translations: [Other fecal abnormalities] Onset: 3 Episodic Other gastrointestinal disorders (7 sources) Loose stool 10-22-2022 Episodic Other hereditary and degenerative nervous system conditions (1 source) Myelopathy in diseases classified elsewhere; Translations: [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)] Onset: 4 Chronic Other nervous system disorders (3 sources) Chiari malformation type I; Translations: [Compression of brain] 03-05-2023 Chronic Other nervous system disorders (1 source) Compression of brain; Translations: [Chiari malformation type I (HCC)] Onset: 3 Chronic Other nervous system disorders (1 source) Postoperative pain ; Translations: [Other acute postprocedural pain] 09-27-2023 Episodic Other nervous system disorders (1 source) Other acute postprocedural pain; Translations: [Postoperative pain] Onset: 4 Episodic Other nutritional; endocrine; and metabolic disorders (20 sources) Hypomagnesemia; Translations: [Hypomagnesemia] Onset: 2 Chronic Other nutritional; endocrine; and metabolic disorders (20 sources) Obesity; Translations: [Obesity, unspecified] Onset: 2 Chronic Other nutritional; endocrine; and metabolic disorders (1 source) Abnormal weight loss; Translations: [Abnormal weight loss] Onset: 2 Episodic Other nutritional; endocrine; and metabolic disorders (16 sources) Weight loss 02-02-2022 Episodic Other upper respiratory infections (4 sources) Chronic sinusitis, unspecified; Translations: [CHRONIC SINUSITIS UNSPECIFIED] Onset: 2 Chronic Residual codes; unclassified (20 sources) Insomnia; Translations: [Insomnia, unspecified] Onset: 2 Episodic Residual codes; unclassified (1 source) Tobacco user; Translations: [Tobacco use] Onset: 2 Episodic Residual codes; unclassified (2 sources) Family history of malignant neoplasm of digestive organ; Translations: [Family history of malignant neoplasm of digestive organs] Onset: 2 Episodic Residual codes; unclassified (16 sources) Family history of cancer of colon 02-02-2022 Episodic Spondylosis; intervertebral disc disorders; other back problems (3 sources) 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 Added secondary to d ocumentation in Social History. Substance-related disorders (20 sources) Cannabis misuse; Translations: [Cannabis use, unspecified, uncomplicated] Onset: 2 Episodic Unclassified (4 sources) CONTACT W/AND (SUSP) EXPOS COVID-19; Translations: [CONTACT W/AND (SUSP) EXPOS COVID-19] Onset: 2 Unclassified (1 source) COUGH, UNSPECIFIED; Translations: [COUGH, UNSPECIFIED] Onset: 2 Unclassified (9 sources) Liver function test increased 07-30-2022 Unclassified (1 source) Multiple Concerns Onset: 3 Past or Other Problems Problem Classification Problem Date Documented Da te Episodic/Chronic Calculus of urinary tract (20 sources) History of calculus of kidney; Translations: [Personal history of urinary calculi] Onset: 3 04-09-2023 Episodic Cardiac dysrhythmias (20 sources) Tachycardia, unspecified; Translations: [Palpitations] Onset: 2 Episodic Disorders of teeth and jaw (20 sources) Temporomandibular joint disorder; Translations: [Unspecified temporomandibular joint disorder, unspecified side] Onset: 3 04-09-2023 Episodic Gastroduodenal ulcer (except hemorrhage) (20 sources) H/O: peptic ulcer; Translations: [Personal history of peptic ulcer disease] Onset: 2 Episodic Headache; including migraine (20 sources) Headache; Translations: [Headache] Onset: 4 01-22-2004 Episodic Nonspecific chest pain (4 sources) Chest pain, unspecified; Translations: [CHEST PAIN UNSPECIFIED] Onset: 2 Episodic Other aftercare (1 source) Other terminal worker (current) drug therapy; Translations: [OTH LOGISTIC MANAGER CURRENT DRUG THERAPY] Onset: 2 Episodic Other connective tissue disease (20 sources) History of cervical spine fusion; Translations: [Arthrodesis status] Onset: 4 08-24-2023 Episodic Other gastrointestinal disorders (4 sources) Diarrhea, unspecified; Translations: [DIARRHEA UNSPECIFIED] Onset: 2 Episodic Other nervous system disorders (3 sources) Paresthesia of skin; Translations: [PARESTHESIA OF SKIN] Onset: 2 Episodic Other screening for suspected conditions (not mental disorders or infectious disease) (20 sources) Blood chemistry abnormal; Translations: [Other specified abnormal findings of blood chemistry] Onset: 3 Episodic Other upper respiratory disease (1 source) Retropharyngeal abscess; Translations: [Retropharyngeal and parapharyngeal abscess] Onset: 6 05-03-2016 Episodic Screening and history of mental health and substance abuse codes (20 sources) Personal history of nicotine dependence; Translations: [Ex-smoker] Onset: 2 08-03-2023 Episodic Spondylosis; intervertebral disc disorders; other back problems (20 sources) Neck pain; Translations: [Cervicalgia] Onset: 3 04-09-2023 Episodic Unclassified (20 sources) Alcohol use during ( Confirmed ) Resolved: 1 02-24-2011 Unclassified (1 source) Exposure to 2019 novel coronavirus; Translations: [Contact with and (suspected) exposure to COVID19] Unclassified (20 sources) Alcohol use during Resolved: 1 02-24-2011 Unclassified (1 source) CONTACT W/AND (SUSP) EXPOS COVID-19; Translations: [CONTACT W/AND (SUSP) EXPOS COVID-19] Onset: 2 Unclassified (1 source) with history of ; Translations: [ with history of ] Results Test Name Value Interpretation Reference Range Facility PAP [id number] 11-23-2023 Cytology report Cyto stain Doc (Cvx/Vag) Note Invalid Interpretation Code [facility] Comment on above: Result Comment: TEST S RESULT FLAG UNITS REF RANGE LAB Clinician Provided Cytology Information Source.............Cervix No. of containers..01 ThinPrep Vial DIAGNOSIS: 01 NEGATIVE FOR INTRAEPITHELIAL LESION OR MALIGNANCY. THIS SPECIMEN WAS RESCREENED PART OF OUR TOUR MANAGER PROGRAM. Specimen adequacy: 01 Satisfactory for evaluation. Endocervical and/or squamous metaplastic cells (endocervical component) are present. Performed by: 01 Shayna Mckeon, Personnel Arbitrator (ASCP) QC reviewed by: Merna Baig, Personnel Arbitrator . 01 Note: Note 01 The Pap smear is a screening test designed to aid in the detection of premalignant and malignant conditions of the uterine cervix. It is not a diagnostic procedure and should not be used as the sole means of detecting cervical cancer. Both false-positive and false-negative reports do occur. Test Methodology: Note 01 This liquid based ThinPrep(R) pap test was screened with the use of an image guided system. FLAG LEGEND: L-Low Normal,H-High Normal,LL-Alert Low,HH-Alert High <-Panic Low,>-Panic High,A-Abnormal,AA-Critical Abnormal Performed at: [address] [id number] Delicia Mcintosh MD, Performed By: #### 3 [id number] #### [facility] [address] [place] [address] HPV 16+18+31+33+35+39+45+5 1+52+56+58+59+66+68 DNA Probe+sig amp Ql (Cvx) Negative Invalid Interpretation Code Negative [facility] Comment on above: Result Comment: This nucleic acid amplification test detects fourteen high-risk HPV types (16,18,31,33,35,39,45,51,52,56,58,59,66,68) without differentiation. Performed at: [facility] [address] [place], [place] [id number] MD Arnaldo Nesbitt Performed at: =G [facility] [address] [place], [place] [id number] MD Arnaldo Nesbitt Performed By: #### 3 [id number] #### [facility] [address] [place] [address] PAP [id number] 11-16-2023 Collection Technique BRUSH-SPATULA Normal F [facility] Comment on above: Performed By: #### 3 [id number] #### [facility] [address] [place] [address] Gynecological Body Site CERVIX Normal [facility] Comment on above: Performed By: #### 3 [id number] #### [facility] [address] [place] [address] Previous Cytology Negative Normal [facility] Comment on above: Performed By: #### 3 [id number] #### [facility] [address] [place] [address] Previous Treatment NONE Normal [facility] Comment on above: Performed By: #### 3 [id number] #### [facility] [address] [id number] Physician Orderon 11-15-2023 Physician Order [id number] Normal [facility] 11-12-2023 [facility] ----- LADI BYERS ([id number]) 1985 F Date Time Provider Department 11/12/23 JOO CRUZ [facility] During your visit today, we recorded the following information about you: Murillo, Marv M, RN 11/12/2023 1:40 PM Signed Incoming fax received at 1 E office and scanned into patient chart. Marv Murillo RN 11/15/2023 10:26 AM Signed Fax sent to [facility] regarding completed Physical Therapy Initial Examination. Marv Murillo RN November 15, 2023 10:26 AM Allergies As of Date: 11/12/2023 Noted Allergy Reaction CARIPRAZINE 12/29/2021 14 - Other: See Comments 16 - Unknown IOTHALAMIC ACID 08/10/2013 14 - Other: See Comments METOCLOPRAMIDE 08/10/2013 14 - Other: See Comments PENICILLINS 12/18/2018 4 - Hives REGLAN (METOCLOPRAMIDE HCL) 12/30/2009 1 - Mental Status Change Date Reviewed: 11/01/2023 Reviewed by: Berta Barnard MA - Fully Assessed Prescriptions as of 11/15/2023 - gabapentin (NEURONTIN) 100 mg capsule Take 2 capsules by mouth every 12 hours for 30 days. - cetirizine (ZYRTEC) 10 mg tablet Take 1 tablet by mouth daily at bedtime. - tiZANidine (ZANAFLEX) 4 mg tablet Take 1 tablet by mouth every 6 hours as needed. - OLANZapine (ZYPREXA) 5 mg tablet Take 15 mg by mouth once daily. - cyanocobalamin (VITAMIN B-12) 1,000 mcg tab Take 1 tablet by mouth every afternoon. - BLISOVI 24 FE 1 mg-20 mcg (24)/75 mg (4) Take 1 tablet by mouth every afternoon. - propranolol ER (INDERAL LA) 80 mg 24 hr capsule Take 1 capsule by mouth once daily. - gabapentin (NEURONTIN) 100 mg capsule TAKE 2 CAPSULES BY MOUTH TWICE A DAY FOR 90 DAYS - celecoxib (CELEBREX) 200 mg capsule TAKE 1 CAPSULE BY MOUTH EVERY DAY - albuterol HFA (PROVENTIL HFA) 90 mcg/actuation inhaler Inhale 1-2 Puffs as instructed every 4 hours as needed for wheezing/shortness of breath. - VYVANSE 20 mg capsule Take 20 mg by mouth once daily. - pantoprazole DR (PROTONIX) 40 mg tablet Take 1 tablet by mouth every afternoon. - guaiFENesin (MUCINEX) 600 mg 12 hr tablet Take 1,200 mg by mouth twice daily as needed for cold/allergy symptoms. - dicyclomine (BENTYL) 10 mg capsule Take 10 mg by mouth as needed. - SUMAtriptan (IMITREX) 50 mg tablet TAKE 1 TABLET BY MOUTH TWICE DAILY NEEDED AT ONSET OF HEADACHE MAY REPEAT IN 1 HOUR Problem List As Of Date 11/12/2023 Noted Resolved Migraine [346] 01/25/2003 04/09/2023 Migraines [G43.909] 01/22/2004 HEADACHE [R51] 01/22/2004 PTSD (post-traumatic stress disorder) [F43.10] 04/09/2023 Bipolar 1 disorder (HCC) [F31.9] 04/09/2023 Palpitations [R00.2] 04/09/2023 RBBB [I45.10] 04/09/2023 TMJ disorder, unspecified [M26.609] 04/09/2023 Neck pain [M54.2] 04/09/2023 Other irritable bowel syndrome [K58.8] 04/09/2023 History of peptic ulcer [Z87.11] 04/09/2023 History of nephrolithiasis [Z87.442] 04/09/2023 Abnormal Pap smear of cervix [R87.619] 04/09/2023 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] 04/09/2023 DIMITRI (generalized anxiety disorder) [F41.1] 04/09/2023 MDD (major depressive disorder), recurrent epis*04/09/2023 Former smoker [Z87.891] 08/03/2023 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*08/24/2023 Status post cervical spinal arthrodesis [Z98.1] 08/24/2023 S/P cervical spinal fusion [Z98.1] 08/24/2023 Encounter Status:Closed by MARV MURILLO on 11/12/[address] [facility] Office Visit (SPSLU ) ----- LADI BYERS ([id number]) 1985 F Date Time Provider Department 11/01/23 4:00 PM JOO CRUZ During your visit today, we recorded the following information about you: Weight Height 70.4 kg 1.524 m Joo Cruz MD 11/01/2023 3:36 PM Signed SPINE SURGERY FOLLOW UP This is an in-person visit. SERVICE DATE: 11/01/2023 SURGERY DATE: ACDF C6/7 on (Date: 08/24/2023) Ladi Byers is seen for 10 week post operative follow up. She reports she is doing well. Has noticed improvements in hand function. Reports upper back pain, that improved with nsaids. She previously has tried dry needling which improved this pain. No issues with swallowing. She is interested in therapy for back. ANTIPLATELET OR ANTICOAGULATION STATUS: No Patient Entered Questionnaires 08/10/2023 09/09/2023 10/31/2023 Spine Questions Pain Location: Upper back/torso Upper back/torso Upper back/torso Symptoms from neck/cervical spine: Yes Yes Yes Employment Status: Disabled due to back pain, permanently or temporarily Off work 1 month or more due to back/neck pain: Yes Applied for/receive disability/WC due to low back/neck pain Yes 08/10/2023 Spine Red Flags Any type of cancer: No Unexplained fever: No Bowel or bladder disfunction: No Unintentional weight loss: No Osteoporosis: No 06/18/2023 08/10/2023 10/31/2023 Neck Questionnaires Benzel Modified NITIN Score 14 (A lower score indicates increased pain and issues.) Incomplete 13 (A lower score indicates increased pain and issues.) PROMIS Score Percentiles 08/10/2023 09/09/2023 10/31/2023 Physical Health Physical Function Percentile 5 3 18* Sleep Percentile 7 5 Fatigue Percentile 1 4 Pain Interference Percentile 2 1 7 07/22/2023 09/09/2023 10/31/2023 PROMIS SOCIAL ROLE SCORE Social Role Satisfaction Percentile 18* 4 42 04/09/2023 07/02/2023 10/31/2023 PROMIS Global Health Scale Physical Health Percentile 15 4 7 Mental Health Percentile 13 13 13 Percentiles provide an indication of how the patient's score ranks in relation to the general population. Higher percentile rankings indicate better function/quality of life. 50th percentile is the average of the general population and indicates half of respondents had a worse score. Descriptive Summary for PROMIS Physical Function T-score = 41 (Percentile 18) Much difficulty - Do 2 hours of physical labor. Some difficulty - Walk more than a mile (1.6 km). Depression Screenin08/10/2023 09/09/2023 10/31/2023 PHQ-9 Score 14 11 18 08/10/2023 09/09/2023 10/31/2023 PHQ-9 Self-harm Question Question 9 Not at all Not at all Not at all PHQ-9 Self-Harm (Item 9) response options: 0 Not at all 1 Several days 2 More than half the days 3 Nearly every day PHQ-9 Levels: 0-4 No to mild depression 5-9 Mild depression 10-14 Moderate depression 15-19 Moderately severe depression 20-27 Severe depression PHYSICAL EXAM: LMP 07/19/2023 (Exact Date) GENERAL APPEARANCE: Well nourished, well developed, and no apparent distress. NEURO PSYCH: Patient oriented to person, place, and time. Mood pleasant. Benign affect. MUSCULOSKELETAL VISUAL INSPECTION CERVICAL: WNL THORACIC: WNL LUMBAR: WNL MOTOR: 5/5 in all muscle groups. SENSORY: Normal sensory exam GAIT: Normal. Right sided incision CDI, healing well. 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 1. Phone visit in 4 weeks for a check in. Next xrays at 6 month post op maurice. All questions answered. She was in agreement with plan. 2. Follow up: Following above Imaging Ordered: None The majority of the visit was spent counseling and/or coordinating care for the patient. The patient was counseled regarding cervical myelopathy . Total face to face time was 25 minutes. SIGNATURE: Joo Cruz MD PATIENT NAME: Ladi Byers DATE: November 01, 2023 TIME: 3:21 PM PAGER: Referring Provider: JOO CRUZ [[id number]] Allergies As of Date: 11/01/2023 Noted Allergy Reaction CARIPRAZINE 12/29/2021 14 - Other: See Comments 16 - Unknown IOTHALAMIC ACID 08/10/2013 14 - Other: See Comments METOCLOPRAMIDE 08/10/2013 14 - Other: See Comments PENICILLINS 12/18/2018 4 - Hives REGLAN (METOCLOPRAMIDE HCL) 12/30/2009 1 - Mental Status Change Date Reviewed: 11/01/2023 Reviewed by: Berta Barnard MA - Fully Assessed Reason for Visit: Follow Up [171] Cmt: 6 wk post op Primary Visit Diagnosis: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) [M48.02, G99.2] Order(s):CONSULT TO PHYSICAL THERAPY [9032] Order #: [id number] (more content not included)... [facility] XR CERVICAL 2V AP/LATon 04-2 XR CERVICAL 2V AP/LAT * * *Final Report* * * DATE OF EXAM: Nov 01 2023 3:18PM LUX 5308 - XR CERVICAL 2V AP/LAT / PROCEDURE REASON: multiple diagnoses * * * * Physician Interpretation * * * * EXAM TITLE: XR CERVICAL 2V AP/LAT EXAM DATE/TIME: 11/01/2023 3:18 PM COMPARISON: X-ray cervical spine on 08/25/2023 CLINICAL INDICATION/HISTORY: Follow-up TECHNIQUE: AP and lateral views of the cervical spine are presented. FINDINGS: C6-C7 anterior spinal fusion is visualized, with C6-7 disc spacer/bone graft in place. The surgical hardware appears intact. The disc spaces are maintained. There is no significant osteophyte formation. The prevertebral soft tissues are normal. IMPRESSION: Status post C6-C7 anterior spinal fusion. Career Coach: ADRYAN Transcribe Date/Time: Nov 02 2023 2:05P Dictated by : DIEGO AMIN MD This examination was interpreted and the report reviewed and electronically signed by: DIEGO AMIN MD on Nov 02 2023 2:08PM EST [id number] [facility] 09-10-2023 [facility] Office Visit (SPSLUH ) ----- LADI BYERS ([id number]) 1985 F Date Time Provider Department 09/10/23 8:40 AM JOO CRUZ [facility] During your visit today, we recorded the following information about you: Weight Height 65.8 kg 1.524 m Joo Cruz MD 09/10/2023 11:39 AM Signed SPINE SURGERY FOLLOW UP This is an in-person visit. SERVICE DATE: 09/10/2023 SURGERY DATE: ACDF C6/7 on (Date: 08/24/2023) Ladi Byers is seen for 2 week post operative follow up. Patient reports improvement in pre op symptoms . Reports her balance is improved, arm pain improved. No issues with incision. Takes occasional narcotics, but has weaned down. ANTIPLATELET OR ANTICOAGULATION STATUS: No Patient Entered Questionnaires Spine Questions 07/26/2023 08/10/2023 09/09/2023 Pain Location: Neck Upper back/torso Upper back/torso Pain Duration: - - - Pain over last 6 months: - - - Symptoms from neck/cervical spine: Yes Yes Yes Employment Status: - - - Off work 1 month or more due to back/neck pain: - - - Applied for/receive disability/WC due to low back/neck pain - - - Involved in law suit/legal claim: - - - Spine Red Flags 08/10/2023 Any type of cancer: No Unexplained fever: No Bowel or bladder disfunction: No Unintentional weight loss: No Osteoporosis: No Neck Questionnaires 06/18/2023 08/10/2023 Benzel Modified NITIN Score 14 (A lower score indicates increased pain and issues.) Incomplete PROMIS Score Percentiles Physical Health 07/22/2023 08/10/2023 09/09/2023 Physical Function Percentile - 5 3 Sleep Percentile 4 - 7 Fatigue Percentile 4 - 1 Pain Interference Percentile - 2 1 PROMIS SOCIAL ROLE SCORE 06/18/2023 07/22/2023 09/09/2023 Social Role Satisfaction Percentile 14 18* 4 PROMIS Global Health Scale 04/09/2023 07/02/2023 Physical Health Percentile 15 4 Mental Health Percentile 13 13 Percentiles provide an indication of how the patient's score ranks in relation to the general population. Higher percentile rankings indicate better function/quality of life. 50th percentile is the average of the general population and indicates half of respondents had a worse score. Depression Screening: PHQ-9 07/02/2023 08/10/2023 09/09/2023 Score 12 14 11 PHQ-9 Self-harm Question 07/02/2023 08/10/2023 09/09/2023 Thoughts that you would be better off , or of hurting yourself in some way 0 0 0 PHQ-9 Self-Harm (Item 9) response options: 0 Not at all 1 Several days 2 More than half the days 3 Nearly every day PHQ-9 Levels: 0-4 No to mild depression 5-9 Mild depression 10-14 Moderate depression 15-19 Moderately severe depression 20-27 Severe depression PHYSICAL EXAM: Ht 152.4 cm (5') Wt 65.8 kg (145 lb) LMP 07/19/2023 (Exact Date) BMI 28.32 kg/m? GENERAL APPEARANCE: Well nourished, well developed, and no apparent distress. NEURO PSYCH: Patient oriented to person, place, and time. Mood pleasant. Benign affect. MUSCULOSKELETAL VISUAL INSPECTION CERVICAL: WNL THORACIC: WNL LUMBAR: WNL MOTOR: 5/5 in all muscle groups. SENSORY: Normal sensory exam GAIT: Normal. 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 1. 2 weeks out from acdf doing well. Continue with 10lb lifting restriction. Avoid excessive twisting. I will see back at 6 weeks post op with pre visit xrays. All questions answered patient pleased with encounter. 2. Follow up: Following above Imaging Ordered: None The majority of the visit was spent counseling and/or coordinating care for the patient. The patient was counseled regarding cervical stenosis . Total face to face time was 15 minutes. SIGNATURE: Joo Cruz MD PATIENT NAME: Ladi Byers DATE: September 10, 2023 TIME: 9:38 AM PAGER: Referring Provider: JOO CRUZ [[id number]] Allergies As of Date: 09/10/2023 Noted Allergy Reaction CARIPRAZINE 12/29/2021 14 - Other: See Comments 16 - Unknown IOTHALAMIC ACID 08/10/2013 14 - Other: See Comments METOCLOPRAMIDE 08/10/2013 14 - Other: See Comments PENICILLINS 12/18/2018 4 - Hives REGLAN (METOCLOPRAMIDE HCL) 12/30/2009 1 - Mental Status Change Date Reviewed: 08/25/2023 Reviewed by: Jimena Jolley, RN - Fully Assessed Reason for Visit: Established Patient [175] Neck Pain [135] Primary Visit Diagnosis: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) [M48.02, G99.2] Prescriptions as of 09/10/2023 - OLANZapine (ZYPREXA) 5 mg tablet Take 5 mg by mouth once daily. - tiZANidine (ZANAFLEX) 4 mg tablet Take 1 tablet by mouth every 6 hours as needed. - oxyCODONE IR (ROXICODONE) 5 mg immediate release tablet Take 1 tablet by mouth every 4 hours as needed fo (more content not included)... [facility] 09-09-2023 [facility] Telephone ([facility]) ----- DIMITRILADI GONZALES ([id number]) 1985 F Date Time Provider Department 09/09/23 REUBEN AGRAWAL During your visit today, we recorded the following information about you: Lauren Hernandez MA 09/09/2023 9:36 AM Signed Fax came over for Occupational Therapy Re-certification Note from [facility]. Physician signed paperwork and was faxed back over to [place] with confirmation. Lauren Hernandez MA September 09, 2023 9:35 AM Allergies As of Date: 09/09/2023 Noted Allergy Reaction CARIPRAZINE 12/29/2021 14 - Other: See Comments 16 - Unknown IOTHALAMIC ACID 08/10/2013 14 - Other: See Comments METOCLOPRAMIDE 08/10/2013 14 - Other: See Comments PENICILLINS 12/18/2018 4 - Hives REGLAN (METOCLOPRAMIDE HCL) 12/30/2009 1 - Mental Status Change Date Reviewed: 08/25/2023 Reviewed by: Jimena Jolley RN - Fully Assessed Reason for Visit: [facility]- Occupational Therapy [Other] Cmt: Re-certification Note Prescriptions as of 09/09/2023 - tiZANidine (ZANAFLEX) 4 mg tablet Take 1 tablet by mouth every 6 hours as needed. - oxyCODONE IR (ROXICODONE) 5 mg immediate release tablet Take 1 tablet by mouth every 4 hours as needed for pain for up to 7 days. - docusate sodium (COLACE) 100 mg capsule Take 1 capsule by mouth two times a day. - cyclobenzaprine (FLEXERIL) 10 mg tablet Take 1 tablet by mouth three times a day for 20 days. - QUEtiapine (SEROQUEL) 50 mg tablet Take 1 tablet by mouth daily at bedtime. - cyanocobalamin (VITAMIN B-12) 1,000 mcg tab Take 1 tablet by mouth every afternoon. - BLISOVI 24 FE 1 mg-20 mcg (24)/75 mg (4) Take 1 tablet by mouth every afternoon. - propranolol ER (INDERAL LA) 80 mg 24 hr capsule Take 1 capsule by mouth once daily. - gabapentin (NEURONTIN) 100 mg capsule TAKE 2 CAPSULES BY MOUTH TWICE A DAY FOR 90 DAYS - gabapentin (NEURONTIN) 100 mg capsule Take 2 capsules by mouth two times a day for 90 days. - celecoxib (CELEBREX) 200 mg capsule TAKE 1 CAPSULE BY MOUTH EVERY DAY - albuterol HFA (PROVENTIL HFA) 90 mcg/actuation inhaler Inhale 1-2 Puffs as instructed every 4 hours as needed for wheezing/shortness of breath. - VYVANSE 20 mg capsule - pantoprazole DR (PROTONIX) 40 mg tablet Take 1 tablet by mouth every afternoon. - cyclobenzaprine (FLEXERIL) 5 mg tablet Take 1 tablet by mouth once daily as needed. - guaiFENesin (MUCINEX) 600 mg 12 hr tablet Take 1,200 mg by mouth twice daily as needed for cold/allergy symptoms. - dicyclomine (BENTYL) 10 mg capsule 1 capsule. - busPIRone (BUSPAR) 10 mg tablet Take 10 mg by mouth three times a day. - hydrOXYzine HCl (ATARAX) 25 mg tablet - cetirizine (ZYRTEC) 10 mg tablet Take 10 mg by mouth daily at bedtime. - SUMAtriptan (IMITREX) 50 mg tablet TAKE 1 TABLET BY MOUTH TWICE DAILY NEEDED AT ONSET OF HEADACHE MAY REPEAT IN 1 HOUR Problem List As Of Date 09/09/2023 Noted Resolved Migraine [346] 01/25/2003 04/09/2023 Migraines [G43.909] 01/22/2004 HEADACHE [R51] 01/22/2004 PTSD (post-traumatic stress disorder) [F43.10] 04/09/2023 Bipolar 1 disorder (HCC) [F31.9] 04/09/2023 Palpitations [R00.2] 04/09/2023 RBBB [I45.10] 04/09/2023 TMJ disorder, unspecified [M26.609] 04/09/2023 Neck pain [M54.2] 04/09/2023 Other irritable bowel syndrome [K58.8] 04/09/2023 History of peptic ulcer [Z87.11] 04/09/2023 History of nephrolithiasis [Z87.442] 04/09/2023 Abnormal Pap smear of cervix [R87.619] 04/09/2023 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] 04/09/2023 DIMITIR (generalized anxiety disorder) [F41.1] 04/09/2023 MDD (major depressive disorder), recurrent epis*04/09/2023 Former smoker [Z87.891] 08/03/2023 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*08/24/2023 Status post cervical spinal arthrodesis [Z98.1] 08/24/2023 S/P cervical spinal fusion [Z98.1] 08/24/2023 Encounter Status:Closed by LAUREN HERNANDEZ on 09/09/23 [facility] LADI BYERS ([id number]) 1985 F Date Time Provider Department 08/27/23 JOO CRUZ [facility] During your visit today, we recorded the following information about you: Marv Murillo RN 08/27/2023 9:14 AM Signed Incoming mail to [address] office [employer]. Insurance document scanned into patient chart. Allergies As of Date: 08/27/2023 Noted Allergy Reaction CARIPRAZINE 12/29/2021 14 - Other: See Comments 16 - Unknown IOTHALAMIC ACID 08/10/2013 14 - Other: See Comments METOCLOPRAMIDE 08/10/2013 14 - Other: See Comments PENICILLINS 12/18/2018 4 - Hives REGLAN (METOCLOPRAMIDE HCL) 12/30/2009 1 - Mental Status Change Date Reviewed: 08/25/2023 Reviewed by: Jimena Jolley, MOISE - Fully Assessed Prescriptions as of 08/27/2023 - oxyCODONE IR (ROXICODONE) 5 mg immediate release tablet Take 1 tablet by mouth every 4 hours as needed for pain for up to 7 days. - docusate sodium (COLACE) 100 mg capsule Take 1 capsule by mouth two times a day. - cyclobenzaprine (FLEXERIL) 10 mg tablet Take 1 tablet by mouth three times a day for 20 days. - QUEtiapine (SEROQUEL) 50 mg tablet Take 1 tablet by mouth daily at bedtime. - cyanocobalamin (VITAMIN B-12) 1,000 mcg tab Take 1 tablet by mouth every afternoon. - BLISOVI 24 FE 1 mg-20 mcg (24)/75 mg (4) Take 1 tablet by mouth every afternoon. - propranolol ER (INDERAL LA) 80 mg 24 hr capsule Take 1 capsule by mouth once daily. - gabapentin (NEURONTIN) 100 mg capsule TAKE 2 CAPSULES BY MOUTH TWICE A DAY FOR 90 DAYS - gabapentin (NEURONTIN) 100 mg capsule Take 2 capsules by mouth two times a day for 90 days. - celecoxib (CELEBREX) 200 mg capsule TAKE 1 CAPSULE BY MOUTH EVERY DAY - albuterol HFA (PROVENTIL HFA) 90 mcg/actuation inhaler Inhale 1-2 Puffs as instructed every 4 hours as needed for wheezing/shortness of breath. - VYVANSE 20 mg capsule - pantoprazole DR (PROTONIX) 40 mg tablet Take 1 tablet by mouth every afternoon. - cyclobenzaprine (FLEXERIL) 5 mg tablet Take 1 tablet by mouth once daily as needed. - guaiFENesin (MUCINEX) 600 mg 12 hr tablet Take 1,200 mg by mouth twice daily as needed for cold/allergy symptoms. - dicyclomine (BENTYL) 10 mg capsule 1 capsule. - busPIRone (BUSPAR) 10 mg tablet Take 10 mg by mouth three times a day. - hydrOXYzine HCl (ATARAX) 25 mg tablet - cetirizine (ZYRTEC) 10 mg tablet Take 10 mg by mouth daily at bedtime. - SUMAtriptan (IMITREX) 50 mg tablet TAKE 1 TABLET BY MOUTH TWICE DAILY NEEDED AT ONSET OF HEADACHE MAY REPEAT IN 1 HOUR Problem List As Of Date 08/27/2023 Noted Resolved Migraine [346] 01/25/2003 04/09/2023 Migraines [G43.909] 01/22/2004 HEADACHE [R51] 01/22/2004 PTSD (post-traumatic stress disorder) [F43.10] 04/09/2023 Bipolar 1 disorder (HCC) [F31.9] 04/09/2023 Palpitations [R00.2] 04/09/2023 RBBB [I45.10] 04/09/2023 TMJ disorder, unspecified [M26.609] 04/09/2023 Neck pain [M54.2] 04/09/2023 Other irritable bowel syndrome [K58.8] 04/09/2023 History of peptic ulcer [Z87.11] 04/09/2023 History of nephrolithiasis [Z87.442] 04/09/2023 Abnormal Pap smear of cervix [R87.619] 04/09/2023 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] 04/09/2023 DIMITRI (generalized anxiety disorder) [F41.1] 04/09/2023 MDD (major depressive disorder), recurrent epis*04/09/2023 Former smoker [Z87.891] 08/03/2023 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*08/24/2023 Status post cervical spinal arthrodesis [Z98.1] 08/24/2023 S/P cervical spinal fusion [Z98.1] 08/24/2023 Encounter Status:Closed by MARV MURILLO on 08/27/23 [facility] 08-26-2023 [facility] Telephone ([employer]) ----- JAMALADI ([id number]) 1985 F Date Time Provider Department 08/26/23 [facility] [place] your visit today, we recorded the following information about you: Palak Holbrook, MOISE 08/26/2023 9:28 AM Signed CALL FOR ER FOLLOW UP: Ladi was seen for cervical spinal fusion at Date:08/24/2023 - 08/25/2023 (30 hours) [facility] How is patient doing now? Sore from incision all across chest. Pain with position changes but otherwise states pain is controlled. Otherwise is moving, taking all meds as prescribed (sometimes waits 5 hours between oxycodone doses). Admission Follow Up scheduled 09-10-23 DX/Clinical Impression: s/p neck surgery PTSD (post-traumatic stress disorder) Bipolar 1 disorder (HCC) RBBB DIMITRI (generalized anxiety disorder) MDD (major depressive disorder), recurrent episode, mild (HCC) 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) S/P cervical spinal fusion Medication List at Discharge: albuterol sulfate 90 mcg/actuation 1-2 Puffs INHALATION EVERY 4 HOURS NEEDED buspirone HCl 10 mg 3 TIMES DAILY Patient not taking: Reported on 08/24/2023 celecoxib 200 mg ORAL DAILY cetirizine HCl 10 mg ORAL AT BEDTIME cyanocobalamin (vitamin B-12) 1,000 mcg 1 tablet ORAL EVERY AFTERNOON cyclobenzaprine HCl 5 mg Tab, 1 tablet ORAL ONCE DAILY NEEDED 10 mg ORAL 3 TIMES DAILY dicyclomine HCl 10 mg 1 capsule docusate sodium 100 mg ORAL 2 TIMES DAILY gabapentin 100 mg Cap, TAKE 2 CAPSULES BY MOUTH TWICE A DAY FOR 90 DAYS 200 mg ORAL 2 TIMES DAILY guaifenesin 1,200 mg ORAL 2 TIMES DAILY NEEDED hydroxyzine HCl 25 mg No dose, route, or frequency recorded. 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 [place] [id number] TEL FAX Allergies As of Date: 08/26/2023 Noted Allergy Reaction CARIPRAZINE 12/29/2021 14 - Other: See Comments 16 - Unknown IOTHALAMIC ACID 08/10/2013 14 - Other: See Comments METOCLOPRAMIDE 08/10/2013 14 - Other: See Comments PENICILLINS 12/18/2018 4 - Hives REGLAN (METOCLOPRAMIDE HCL) 12/30/2009 1 - Mental Status Change Date Reviewed: 08/25/2023 Reviewed by: Jimena Jolley RN - Fully Assessed Reason for Visit: Appointment [186] Prescriptions as of 08/26/2023 - oxyCODONE IR (ROXICODONE) 5 mg immediate release tablet Take 1 tablet by mouth every 4 hours as needed for pain for up to 7 days. - docusate sodium (COLACE) 100 mg capsule Take 1 capsule by mouth two times a day. - cyclobenzaprine (FLEXERIL) 10 mg tablet Take 1 tablet by mouth three times a day for 20 days. - QUEtiapine (SEROQUEL) 50 mg tablet Take 1 tablet by mouth daily at bedtime. - cyanocobalamin (VITAMIN B-12) 1,000 mcg tab Take 1 tablet by mouth every afternoon. - BLISOVI 24 FE 1 mg-20 mcg (24)/75 mg (4) Take 1 tablet by mouth every afternoon. - propranolol ER (INDERAL LA) 80 mg 24 hr capsule Take 1 capsule by mouth once daily. - gabapentin (NEURONTIN) 100 mg capsule TAKE 2 CAPSULES BY MOUTH TWICE A DAY FOR 90 DAYS - gabapentin (NEURONTIN) 100 mg capsule Take 2 capsules by mouth two times a day for 90 days. - celecoxib (CELEBREX) 200 mg capsule TAKE 1 CAPSULE BY MOUTH EVERY DAY - albuterol HFA (PROVENTIL HFA) 90 mcg/actuation inhaler Inhale 1-2 Puffs as instructed every 4 hours as needed for wheezing/shortness of breath. - VYVANSE 20 mg capsule - pantoprazole DR (PROTONIX) 40 mg tablet Take 1 tablet by mouth every afternoon. - cyclobenzaprine (FLEXERIL) 5 mg tablet Take 1 tablet by mouth once daily as needed. - guaiFENesin (MUCINEX) 600 mg 12 hr tablet Take 1,200 mg by mouth twice daily as needed for cold/allergy symptoms. - dicyclomine (BENTYL) 10 mg capsule 1 capsule. - busPIRone (BUSPAR) 10 mg tablet Take 10 mg by mouth three times a day. - hydrOXYzine HCl (ATARAX) 25 mg tablet - cetirizine (ZYRTEC) 10 mg tablet Take 10 mg by mouth daily at bedtime. - SUMAtriptan (IMITREX) 50 mg tablet TAKE 1 TABLET BY MOUTH TWICE DAILY NEEDED AT ONSET OF HEADACHE MAY REPEAT IN 1 HOUR Problem List As Of Date 08/26/2023 Noted Resolved Migraine [346] 01/25/2003 04/09/2023 Migraines [G43.909] 01/22/2004 HEADACHE [R51] 01/22/2004 PTSD (post-traumatic stress disorder) [F43.10] 04/09/2023 Bipolar 1 disorder (HCC) [F31.9] 04/09/2023 Palpitations [R00.2] more content not included)... Normal [facility] 08-25-2023 ALL[facility] HNO ID: [id number] Author: YULY SUMMERS RT(R) Service: Radiology Author Type: Technologist Type: Allied Health Filed: 08/25/2023 13:49 Note Text: Radiology Service Progress Note PATIENT NAME: Ladi Byers DATE OF SERVICE: August 25, 2023 TIME: 1:48 PM PATIENT IDENTITY VERIFICATION COMPLETED USING TWO (2) IDENTIFIERS: Name and Date of confirmed by patient verbally and Name and Date of confirmed by identification band. FALL SCREENING: Has the patient had 2 falls in the last year or 1 fall with injury or currently using an Ambulatory Assistive Device (Walker, Cane, Wheelchair, Crutches, etc.)? Inpatient: Screened on floor PATIENT GENDER DATA: Female. status: : No status: N/A PATIENT RELEVANT IMPLANT DATA REVIEWED: Not Applicable PATIENT PRESENTS WITH AN IMPLANTABLE OR ATTACHED TIRE TECHNICIAN: No RADIOLOGY DEPARTMENT: General X-ray: Exam(s) Completed: Spine X-Ray(s): Cervical AP / LAT PERIPHERAL IV DATA: Not applicable SIGNED BY: RT Carlos Manuel(R) August 25, 2023 1:48 PM [facility] Basic metabolic 2000 panelon 08-25-2023 Anion gap [Moles/Vol] 10 mmol/L Normal - [facility] Comment on above: Order Comment: Speci men Type: BLOOD SPECIMEN Ordering Facility: [facility] Address: [address] [place] [address] Performed By: #### 2 4321-2 #### [facility] CLIA [id number] [address] [place] [address] [place] Calcium [Mass/Vol] 8.8 mg/dL Normal 8.5-10.2 [facility] Comment on above: Order Comment: Speci men Type: BLOOD SPECIMEN Ordering Facility: [facility] Address: [address] [place] [address] Performed By: #### 2 4321-2 #### [facility] CLIA [id number] [address] [place] [address] [place] Chloride [Moles/Vol] 107 mmol/L High 97-105 [facility] Comment on above: Order Comment: Speci men Type: BLOOD SPECIMEN Ordering Facility: [facility] Address: [address] [place] [address] Performed By: #### 2 4321-2 #### [facility] CLIA [id number] [address] [place] [address] [place] CO2 [Moles/Vol] 23 mmol/L Normal 22-30 [facility] Comment on above: Order Comment: Speci men Type: BLOOD SPECIMEN Ordering Facility: [facility] Address: [address] [place] [address] Performed By: #### 2 4321-2 #### [facility] CLIA [id number] [address] [place] [address] [place] Creatinine [Mass/Vol] 0.73 mg/dL Normal 0.58-0.96 [facility] Comment on above: Order Comment: Speci men Type: BLOOD SPECIMEN Ordering Facility: [facility] Address: [address] [place] [address] Performed By: #### 2 4321-2 #### [facility] CLIA [id number] [address] [place] [address] [place] Creatinine and Glomerular filtration rate.predicted panel (S/P/Bld) 108 mL/min/1.73m??? Normal >=60 [facility] Comment on above: Order Comment: Speci men Type: BLOOD SPECIMEN Ordering Facility: [facility] Address: [address] [place] [address] Result Comment: Ludivina mated Glomerular Filtration Rate (eGFR) is calculated using the 2020 CKD-EPI creatinine equation. This equation utilizes serum creatinine, sex, and age as parameters. The creatinine assay has traceable calibration to isotope dilution-mass spectrometry. Refer to KDIGO guidelines for clinical interpretation. In patients with unstable renal function, e.g. those with acute kidney injury, the eGFR may not accurately reflect actual GFR. Performed By: #### 2 4321-2 #### [facility] IA [id number] [address] [place] [address] [place] Glucose [Mass/Vol] 103 mg/dL High 74-99 [facility] Comment on above: Order Comment: Caryn campos Type: BLOOD SPECIMEN Ordering Facility: [facility] Address: [address] [place] [address] Result Comment: The [place] Diabetes Association (ADA) provides guidance for cutoff values for fasting glucose and random glucose. The ADA defines fasting as no caloric intake for at least 8 hours. Fasting plasma glucose results between 100 to 125 mg/dL indicate increased risk for diabetes (prediabetes). Fasting plasma glucose results greater than or equal to 126 mg/dL meet the criteria for diagnosis of diabetes. In the absence of unequivocal hyperglycemia, results should be confirmed by repeat testing. In a patient with classic symptoms of hyperglycemia or hyperglycemic crisis, random plasma glucose results greater than or equal to 200 mg/dL meet the criteria for diagnosis of diabetes. Reference: Standards of Medical Care in Diabetes 2016, [place] [employer]. Diabetes Care. 2016.39(Suppl 1). Performed By: #### 2 4321-2 #### [facility] IA [id number] [address] [place], [place] [id number] [place] Potassium [Moles/Vol] 4.5 mmol/L Normal 3.7-5.1 [facility] Comment on above: Order Comment: Caryn campos Type: BLOOD SPECIMEN Ordering Facility: [facility] Address: [address] [place] [address] Performed By: #### 2 4321-2 #### [facility] IA [id number] [address] [place], [place] [id number] [place] Sodium [Moles/Vol] 140 mmol/L Normal 136-144 [facility] Comment on above: Order Comment: Speci men Type: BLOOD SPECIMEN Ordering Facility: [facility] Address: [address] [id number] Performed By: #### 2 4321-2 #### [facility] CLIA [id number] [address] [place], [place] [id number] [facility] Urea nitrogen [Mass/Vol] 6 mg/dL Low 01-22 [facility] Comment on above: Order Comment: Caryn campos Type: BLOOD SPECIMEN Ordering Facility: [facility] Address: [address] [place] [address] Performed By: #### 2 4321-2 #### [facility] CLIA [id number] [address] [id number] [facility] CASE MGT INIT ASSESon 2023 CASE MGT INIT ASSES HNO ID: [id number] Author: JUANJOSE CHAN LISW Service: ? Author Type: Retail Event Coordinator Type: Care Mgt Initial Assessment Filed: 08/25/2023 10:14 Note Text: CARE MANAGEMENT: ASSESSMENT AND DISCHARGE PLAN SERVICE DATE: August 25, 2023 SERVICE TIME: 10:12 PCP: Reuben Agrawal PA-C Primary Contact: Extended Emergency Contact Information Primary Emergency Contact: Jameson Byers Address: [address] [place] [address] Mobile Relation: Son Secondary Emergency Contact: Dari Byers Mobile Relation: Mother Admission Status: Inpatient Insurance Provider: [employer] Discharge Planning requested by: Per Department Practice Potential Transition Plans Home Advance Directives Current Advance Directive: None White Washer Attempted to Assist with AD Completion: Yes Action: Education Provided Current Living Arrangements and Support Lives with: Children Type of Residence: Private Residence (Apartment or Condo) Does the patient have to climb stairs at home?: No Support: Children, Parent How do you manage to accomplish the following: Independent: Ambulation;Transportation to appointments/community;Ba the/Shower;Dress;Meals/Me al Prep;Going to the bathroom;Medication Management Current Services/Equipment Current Post-Acute Service(s): None Discharge Planning Patient Goal(s): Less pain, General wellness Rosalie of Choice Explained: Rosalie of Choice Given: No Reason Not Given: No placements necessary Are you interested in bedside delivery of your medications? No Discharge Planning Participant(s): Patient Patient/Family Comments: Caregiver Assessment: Caregiver is ready, willing and able to meet the patient's needs as recommended by the inter-professional team: Yes Name of Caregiver: 18 yo son Transport at Discharge: Transportation Arrangements: Car Needs Prior to Discharge: Needs Prior to Discharge: Ready for Discharge Post-Acute Discharge Plan: Patient had spine surgery. CM met with the patient at bedside. Patient resides with her 2 sons in an apartment. Patient is independent in ADLs and drives. Patient's mother will provide transport at discharge. DME: none Anticipated Needs:none CM Department will continue to follow. The patient was discharged home with no needs. The patient was aware of the discharge. The patient will be transported by her mother. SIGNATURE: MISHEL Omalley PATIENT NAME: Ladi Byers DATE: August 25, 2023 TIME: 10:12 AM CONTACT #: [phone] [facility] CBC panel Auto (Bld)on 08-25 Erythrocyte distribution width (RBC) [Ratio] 16.1 % High 11.5-15.0 [facility] Comment on above: Order Comment: Caryn campos Type: BLOOD SPECIMEN Ordering Facility: [facility] Address: [address] [place] [address] Performed By: #### 2 4321-2 #### [facility] CLIA [id number] [address] [place] [address] [place] Hematocrit (Bld) [Volume fraction] 30.2 % Low 36.0-46.0 [facility] Comment on above: Order Comment: Caryn campos Type: BLOOD SPECIMEN Ordering Facility: [facility] Address: [address] [place] [address] Performed By: #### 2 4321-2 #### [facility] CLIA [id number] [address] [place] [address] [place] Hemoglobin (Bld) [Mass/Vol] 9.5 g/dL Low 11.5-15.5 [facility] Comment on above: Order Comment: Speci men Type: BLOOD SPECIMEN Ordering Facility: [facility] Address: [address] [place] [address] Performed By: #### 2 4321-2 #### [facility] CLIA [id number] [address] [place] [address] [place] MCH (RBC) [Entitic mass] 25.4 pg Low 26.0-34.0 [facility] Comment on above: Order Comment: Speci men Type: BLOOD SPECIMEN Ordering Facility: [facility] Address: [address] [place] [address] Performed By: #### 2 4321-2 #### [facility] CLIA [id number] [address] [place] [address] [place] MCHC (RBC) [Mass/Vol] 31.5 g/dL Normal 30.5-36.0 [facility] Comment on above: Order Comment: Speci men Type: BLOOD SPECIMEN Ordering Facility: [facility] Address: [address] [place] [address] Performed By: #### 2 4321-2 #### [facility] IA [id number] [address] [place] [address] [place] MCV (RBC) [Entitic vol] 80.7 fL Normal 80.0-100.0 [facility] Comment on above: Order Comment: Speci men Type: BLOOD SPECIMEN Ordering Facility: [facility] Address: [address] [place] [address] Performed By: #### 2 4321-2 #### [facility] IA [id number] [address] [place] [address] [place] Nucleated RBC (Bld) [#/Vol] 10*3/uL Normal <0.01 [facility] Comment on above: Order Comment: Speci men Type: BLOOD SPECIMEN Ordering Facility: [facility] Address: [address] [place] [address] Performed By: #### 2 4321-2 #### [facility] CLIA [id number] [address] [place] [address] [place] Platelet mean volume (Bld) [Entitic vol] 9.6 fL Normal 9.0-12.7 [facility] Comment on above: Order Comment: Speci men Type: BLOOD SPECIMEN Ordering Facility: [facility] Address: [address] [place] [address] Performed By: #### 2 4321-2 #### [facility] CLIA [id number] [address] [place] [address] [place] Platelets (Bld) [#/Vol] 355 10*3/uL Normal 150-400 [facility] Comment on above: Order Comment: Speci men Type: BLOOD SPECIMEN Ordering Facility: [facility] Address: [address] [place] [address] Performed By: #### 2 4321-2 #### [facility] IA [id number] [address] [place] [address] [place] RBC (Bld) [#/Vol] 3.74 10*6/uL Low 3.90-5.20 [facility] Comment on above: Order Comment: Speci men Type: BLOOD SPECIMEN Ordering Facility: [facility] Address: [address] [place] [address] Performed By: #### 2 4321-2 #### [facility] CLIA [id number] [address] [place], [place] [id number] [place] WBC (Bld) [#/Vol] 14.23 10*3/uL High 3.70-11.00 [facility] Comment on above: Order Comment: Speci men Type: BLOOD SPECIMEN Ordering Facility: [facility] Address: [address] [place] [address] Performed By: #### 2 4321-2 #### [facility] CLIA [id number] [address] [place], [place] [id number] [place] CNDSon 08-25-2023 CNDS HNO ID: [id number] Author: DERIK AMARAL MD Service: Orthopaedic Surgery Author Type: Resident Type: Discharge Summary Filed: 08/25/2023 07:08 Note Text: ----- Attestation signed by Joo Cruz MD at 08/25/2023 8:18 AM I have personally seen and examined the above patient. I have confirmed the carrasco components of the history and physical exam with the patient and agree with the findings, assesment and plan documented above by the ortho resident. Post op acdf doing well.. Joo Cruz MD Spine Surgery. ----- ORTHOPEDIC SURGERY DISCHARGE SUMMARY ADMISSION DATE: 08/24/2023 DISCHARGE DATE: 08/25/2023 Attending Physician: Joo Cruz MD Reason for Hospitalization: C6-7 ACDF Admitting Diagnosis: Cervical stenosis Discharge Diagnosis: Cervical stenosis Additional Diagnoses: ACTIVE PROBLEM LIST Migraines Headache(784.0) Ptsd (Post-Traumatic Stress Disorder) Bipolar 1 Disorder (Hcc) Palpitations Rbbb TMJ Disorder, Unspecified Neck Pain Other Irritable Bowel Syndrome History of Peptic Ulcer History of Nephrolithiasis Abnormal Pap Smear of Cervix Cerebellar Tonsillar Ectopia (Hcc) Dimitri (Generalized Anxiety Disorder) Mdd (Major Depressive Disorder), Recurrent Episode, Mild (Hcc) Former Smoker 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 It was determined she would benefit from surgery. The procedure, its risks, benefits, and potential complications were discussed in detail with the patient prior to surgery. Understanding of all topics was conveyed by the patient, and consent was given for surgery. The patient was electively admitted to the [facility] on 08/24/2023. Surgery was scheduled and on 08/24/2023 she underwent a Procedure(s) (LRB): ARTHRODESIS ANT DISC PREP DISCECTOMY OSTEOPHYTECTOMY DECOMPRES S CORD/NERVE ROOT C' BELOW C2 (N/A) SPINE ALLOGRAFT (N/A) ANTERIOR INSTRUMENTATION 2 VERTEBRAL SEGMENTS (N/A). The procedure was tolerated well and she was sent to the post operative recovery room in stable condition, where she also did well. She was subsequently sent to her hospital room for postoperative management. Once on the floor her postoperative course was unremarkable and she did well. Her diet was advanced which she tolerated. Her pain was well controlled and was eventually transitioned to oral medication alone prior to discharge. She worked with Physical and Occupational Therapy who recommended she be discharged. Her dressing remained clean dry and intact throughout her stay. She remained afebrile with stable vital signs throughout her stay. She was stable for discharge. Complete and comprehensive discharge instructions were provided to the patient as well as necessary prescriptions. The patient had no further questions and was advised to call with any questions, concerns, or problems. Patient was hemodynamically stable postoperatively and postoperative labs were reviewed. Discharge Antibiotics: Prior to surgery the patient was treated with antibiotics and continued with antibiotics 24 hours postoperatively Transfers: PACU and then to the hospital surgical floor when PACU criteria was met. DVT Prophylaxis: See discharge medications section Pain Control: Oral narcotics Complications: Continued throughout the hospital course without complications. Patient Condition at Discharge: Stable Discharge Disposition: Home Other Information: N/A Discharge Activity/Weight Bearing Status: WBAT, no heavy lifting, bending, twisting The patient was instructed to follow-up as per preoperative plan. Future Appointments Date Time Provider Department Center 09/10/2023 8:40 AM Joo Cruz MD [facility] 09/13/2023 9:15 AM [facility] 11/01/2023 4:00 PM Joo Cruz MD [facility] 01/31/2024 1:30 PM Franchesca Low MD [facility] [place] Discharge Medications: Medication List START taking these medications docusate sodium 100 mg capsule Commonly known as: COLACE Take 1 capsule by mouth two times a day. oxyCODONE IR 5 mg immediate release tablet Commonly known as: ROXICODONE Take 1 tablet by mouth every 4 hours as needed for (more content not included)... Normal [facility] THERAPY NTon 08-25-2023 THERAPY NT HNO ID: [id number] Author: AKIN BILLINGSLEY, PT, DPT Service: Physical Therapy Author Type: Physical Therapist Type: Therapy (PT/OT/Speech/Resp) Filed: 08/25/2023 13:34 Note Text: Physical Therapy Evaluation Summary SERVICE DATE: 08/25/2023 SERVICE TIME: 1253 to 1311 ROOM: [place] [address] PT 6 Clicks Score: 24 DISCHARGE RECOMMENDATIONS Home-Cleared from PT standpoint for D/C home today with no skilled PT needs Recommended Discharge Equipment: No equipment needs anticipated ASSESSMENT Response to Therapy Interventions: Good Participation in Activities, Improved Tolerance for Activity, Notable Progression with Functional Activities/Skills, Pain, On-Track to Achieve Discharge Goals PRECAUTIONS Spine C-spine CURRENT HOSPITAL COURSE 38 y.o female admitted 08/24/23 s/p C6-7 ACDF Relevant Past Medical History: RBBB, PTSD, bipolar, CAD, MDD, migraines HOME LIVING Patient Lives With: Family, Other: See Comment Comments: 18 y/o and 12 y.o sons Assistance Available: PRN Entry To Home: No Stairs Number Of Stairs To Bed/Bath: 0 Laundry: son can complete Equipment Owned: Other: See Comment (none) PRIOR FUNCTIONAL LEVEL Within Functional Limits Pt ambulated without AD. Independent with ADLs/IADLs SUBJECTIVE I already noticed I do not have the balance issues I had before THERAPY DIAGNOSIS Reduced mobility-other TREATMENT INTERVENTIONS Evaluation Skilled Treatment Time (minutes): 18 TRAINING AND EDUCATION PROVIDED Advanced Balance Activities, Anatomy and Impact on Deficits, Assistive Device Use, Bed Mobility, Benefits of In-Hospital Mobility, Energy Conservation, Handout Issued, Precautions/Restrictions, Gait Pattern, Reduction of Deviations THERAPEUTIC SKILLS USED Activity Dosing, Assessment of Tolerance Including Vitals Response to Activity, Cues for Sequencing/Proper Technique for Activity, Cuing Verbal, Teach-Back for Education FUNCTIONAL STATUS Bed Mobility Supine To Sit: Modified Independent Sit to Supine: Modified Independent Scooting: Modified Independent Transfers Sit To Stand: Independent Stand To Sit: Independent Bed to Chair Independent Gait Supervision Gait Device: None General Deviations/Observations: Petrona decreased, Arm swing decreased Gait Distance (feet): 175 feet x 1, 15 feet x 1 Stairs GOALS Patient will demonstrate understanding of importance of mobility during hospital stay and resolve all functional needs identified., Patient will demonstrate progress with functional mobility to allow safe discharge to home with available support and/or physical assistance. Rehab Potential: Good Progress Toward Goals: Progressing as expected PLAN PT Frequency: 2 Times Per Week Treatment Interventions: Functional Mobility Training Plan for Next Visit: Gait Training SIGNATURE: Akin Billingsley, PT, DPT PATIENT NAME: Ladi Byers DATE: August 25, 2023 TIME: 1:34 PM [facility] THERAPY NT HNO ID: [id number] Author: LATOYA HEIN OTR/Rocio Service: Occupational Therapy Author Type: Occupational Therapist Type: Therapy (PT/OT/Speech/Resp) Filed: 08/25/2023 13:39 Note Text: Per discussion with PT, pt with no skilled OT needs at this time. OT to discontinue orders. [facility] XR CERVICAL 2V AP/LATon 08-06 XR CERVICAL 2V AP/LAT * * *Final Report* * * DATE OF EXAM: Aug 25 2023 1:54PM LUX 5308 - XR CERVICAL 2V AP/LAT / PROCEDURE REASON: Post-operative / post-procedure assessment, asymptomatic * * * * Physician Interpretation * * * * History: Postoperative imaging FINDINGS/ IMPRESSION: AP and lateral views of the cervical spine have been obtained. Correlation is made with prior study of 06/18/2023. Since the prior study patient has had anterior plate and screw fusion at the C6 and C7 levels with intervertebral spacer in place. Hardware is intact and alignment satisfactory. No acute bony abnormality is seen. Prevertebral soft tissues are unremarkable. Career Coach: ADRYAN Transcribe Date/Time: Aug 25 2023 3:54P Dictated by : EUGENIA CISENROS MD This examination was interpreted and the report reviewed and electronically signed by: EUGENIA CISNEROS MD on Aug 25 2023 3:55PM EST [id number] [facility] ANES POSTPROC EVALon 024 ANES POSTPROC EVAL HNO ID: [id number] Author: GENEVIEVE VIEIRA MD Service: Anesthesiology Author Type: Anesthesiologist Type: Anesthesia Postprocedure Evaluation Filed: 08/24/2023 15:18 Note Text: POST ANESTHESIA EVALUATION NOTE : 1985 Procedure Summary Date: 08/24/23 Room / Location: OR09 / [facility] Anesthesia Start: 1204 Anesthesia Stop: 1501 Procedures: ARTHRODESIS ANT DISC PREP DISCECTOMY OSTEOPHYTECTOMY DECOMPRES S CORD/NERVE ROOT C' BELOW C2 (Neck) SPINE ALLOGRAFT (Neck) ANTERIOR INSTRUMENTATION 2 VERTEBRAL SEGMENTS (Neck) Diagnosis: Cervical spinal stenosis Pre-op testing (Cervical spinal stenosis [M48.02]) (Pre-op testing [Z01.818]) Surgeons: Joo Cruz MD Responsible Provider: Genevieve Vieira MD Anesthesia Type: general ASA Status: 3 Anesthesia Type: general Airway Type: ETT Last Vitals Vitals Value Taken Time BP 129/73 08/24/23 1515 Temp 36.2 ?C (97.2 ?F) 08/24/23 1453 Pulse 71 08/24/23 1517 Resp 18 08/24/23 1453 SpO2 90 % 08/24/23 1517 Vitals shown include unfiled device data. Post Anesthesia Patient Status Patient Evaluation: PACU. PACU/ICU Patient Condition: stable. Anticipated Disposition: inpatient floor planned admission. Neurological Status: aware and responsive. Pulmonary Status: breathing comfortably on room air Airway Control: returned to baseline unsupported. Cardiovascular Status: stable. Pain Management: clinically adequate Postoperative Hydration: acceptable. Intraoperative Events: no significant anesthesia events Post Operative Nausea/Vomiting Status: no significant post operative nausea or vomiting Recommendation: continue current plan of care. Anesthesia Observations No Documentation SIGNATURE: Genevieve Vieira MD PATIENT NAME: Ladi Byers DATE: August 24, 2023 TIME: 3:18 PM CSN: [id number] [facility] ANES PRE-OPon 08-24-2023 ANES PRE-OP HNO ID: [id number] Author: GENEVIEVE VIEIRA MD Service: Anesthesiology Author Type: Anesthesiologist Type: Anesthesia Preprocedure Evaluation Filed: 08/24/2023 10:52 Note Text: ANESTHESIOLOGY DAY OF SURGERY NOTE : 1985 Procedure Information Date/Time: 08/24/23 1145 Procedures: ARTHRODESIS ANT DISC PREP DISCECTOMY OSTEOPHYTECTOMY DECOMPRES S CORD/NERVE ROOT C' BELOW C2 (Neck) SPINE ALLOGRAFT (Neck) ANTERIOR INSTRUMENTATION 2 VERTEBRAL SEGMENTS (Neck) Location: [facility]09 / [facility] Surgeons: Joo Cruz MD Estimated body mass index is 29.1 kg/m? as calculated from the following: Height as of 08/03/23: 152.4 cm (5'). Weight as of 08/10/23: 67.6 kg (149 lb). Most recent hematocrit and potassium results: Hematocrit 36.9 08/04/2023 Potassium 3.9 08/04/2023 Relevant Problems CARDIO (+) Migraines (+) RBBB NEURO-PSYCH (+) History of nephrolithiasis (+) History of peptic ulcer (+) Migraines I - PHYSICAL EVALUATION AIRWAY Patient intubated: No. Tracheostomy tube not present Mallampati: III. TM distance: >3 FB. Neck ROM: full ROM without neurological symptoms. Mouth opening: adequate. Short neck: no. Thick neck: no Koo present: no Lip Bite Test: II Microretrognathia/Microna gthia/Recessed Chin: No DENTAL Dental findings: missing tooth/teeth and teeth intact. Additional comments: Some crown. II - ANESTHESIA PLAN ASA Score: 3 Anesthetic Plan: general Airway type: ETT NPO Status: adequate Beta Jeanna Monitoring Plan Monitoring plan: standard ASA and invasive hemodynamic monitoring. Monitoring method: arterial Line Post Procedure Analgesic Plan Postoperative analgesic plan: parenteral or oral opioids and multimodal analgesia. Informed Consent Anesthetic risks, benefits, alternatives, personnel and consent discussed: yes. Patient / Responsible Constitution Party agrees to proceed: yes Patient / Surrogate agrees to blood products: Yes Significant changes in the patient condition since the History and Physical, not otherwise documented in primary service progress note: no. Vitals Value Taken Time BP 112/79 08/24/23 1018 Pulse 74 08/24/23 1018 Resp 16 08/24/23 1018 Temp 37.2 ?C (99 ?F) 08/24/23 1018 SpO2 100 % 08/24/23 1018 Facility-Administered Medications as of 08/24/2023 Medication Dose Route Frequency - [COMPLETED] acetaminophen 1,000 mg tab(s) (TYLENOL) 1,000 mg ORAL Pre-Op Once - [COMPLETED] promethazine 12.5 mg tab(s) (PHENERGAN) 12.5 mg ORAL Pre-Op Once - [COMPLETED] magnesium oxide 800 mg tab(s) (MAG-OX) 800 mg ORAL ONCE - lidocaine (PF) 10 mg/mL (1 %) 1-2 mg injection (XYLOCAINE) 0.1-0.2 mL INTRADERMAL PRN - lactated ringers iv infusion 5-30 mL/hr INTRAVENOUS CONTINUOUS - NaCl 0.9% iv flush bag 20 mL INTRAVENOUS PRN - ceFAZolin iv piggyback 2 g in D5W (iso-osmotic) 100 mL (ANCEF) 2 g INTRAVENOUS Pre-Op Once - scopolamine 1 mg over 3 days 1 Patch (TRANSDERM-SCOP) 1 Patch TRANSDERMAL q 72 HR And - [START ON 08/27/2023] scopolamine - REMOVE PATCH OTHER q 72 HR And - scopolamine - VERIFY patch OTHER q 8 H Outpatient Medications as of 08/24/2023 Medication Sig - celecoxib (CELEBREX) 200 mg capsule TAKE 1 CAPSULE BY MOUTH EVERY DAY - albuterol HFA (PROVENTIL HFA) 90 mcg/actuation inhaler Inhale 1-2 Puffs as instructed every 4 hours as needed for wheezing/shortness of breath. - VYVANSE 20 mg capsule - pantoprazole DR (PROTONIX) 40 mg tablet Take 1 tablet by mouth every afternoon. - cyclobenzaprine (FLEXERIL) 5 mg tablet Take 1 tablet by mouth once daily as needed. - guaiFENesin (MUCINEX) 600 mg 12 hr tablet Take 1,200 mg by mouth twice daily as needed for cold/allergy symptoms. - dicyclomine (BENTYL) 10 mg capsule 1 capsule. - cetirizine (ZYRTEC) 10 mg tablet Take 10 mg by mouth daily at bedtime. - SUMAtriptan (IMITREX) 50 mg tablet TAKE 1 TABLET BY MOUTH TWICE DAILY NEEDED AT ONSET OF HEADACHE MAY REPEAT IN 1 HOUR - busPIRone (BUSPAR) 10 mg tablet Take 10 mg by mouth three times a day. (Patient not taking: Reported on 08/24/2023) - hydrOXYzine HCl (ATARAX) 25 mg tablet (Patient not taking: Reported on 08/24/2023) I have interviewed and examined the patient. I have reviewed the medical record and/or the pre-anesthesia evaluation, pertinent labs, and test results. This contains updated information obtained within 48 hours of Surgery/Procedure. SIGNATURE: Genevieve Vieira MD PATIENT NAME: Ladi Byers DATE: August 24, 2023 TIME: 10:51 AM CSN: [id number] [facility] BRIEF OP NOTon 08-24-2023 BRIEF OP NOT HNO ID: [id number] Author: JOO CRUZ MD Service: Neurosurgery Author Type: Physician Type: Brief Op Note Filed: 08/24/2023 14:51 Note Text: BRIEF OP NOTE LOG ID: [id number] Surgery/Procedure Date: 08/24/2023 Incision/Procedure Start Time: 12:49 PM Incision Close/Procedure End Time: 2:41 PM Surgeon(s)/Proceduralist( s) and Caterers Helper(s): Surgeon(s) and Role: * Joo Cruz MD - Primary Pre-Op/Pre-Procedure Diagnosis: cervical myelo/radiculopathy Post-Op/Post-Procedure Diagnosis: same Procedure(s): ACDF C6/7 Anesthesia: General Estimated Blood Loss: 15 mls Specimens Removed: * No specimens in log * Drain: Implant Name Type Inv. Item Serial No. Customer Equipment Engineer Lot No. LRB No. Used Action PIN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 once daily. - gabapentin (NEURONTIN) 100 mg capsule TAKE 2 CAPSULES BY MOUTH TWICE A DAY FOR 90 DAYS - gabapentin (NEURONTIN) 100 mg capsule Take 2 capsules by mouth two times a day for 90 days. - celecoxib (CELEBREX) 200 mg capsule TAKE 1 CAPSULE BY MOUTH EVERY DAY - albuterol HFA (PROVENTIL HFA) 90 mcg/actuation inhaler Inhale 1-2 Puffs as instructed every 4 hours as needed for wheezing/shortness of breath. - VYVANSE 20 mg capsule - pantoprazole DR (PROTONIX) 40 mg tablet Take 1 tablet by mouth every afternoon. - cyclobenzaprine (FLEXERIL) 5 mg tablet Take 1 tablet by mouth once daily as needed. - guaiFENesin (MUCINEX) 600 mg 12 hr tablet Take 1,200 mg by mouth twice daily as needed for cold/allergy symptoms. - dicyclomine (BENTYL) 10 mg capsule 1 capsule. - busPIRone (BUSPAR) 10 mg tablet Take 10 mg by mouth three times a day. - hydrOXYzine HCl (ATARAX) 25 mg tablet - cetirizine (ZYRTEC) 10 mg tablet Take 10 mg by mouth daily at bedtime. - SUMAtriptan (IMITREX) 50 mg tablet TAKE 1 TABLET BY MOUTH TWICE DAILY NEEDED AT ONSET OF HEADACHE MAY REPEAT IN 1 HOUR Problem List As Of Date 08/06/2023 Noted Resolved Migraine [346] 01/25/2003 04/09/2023 Migraines [G43.909] 01/22/2004 HEADACHE [R51] 01/22/2004 PTSD (post-traumatic stress disorder) [F43.10] 04/09/2023 Bipolar 1 disorder (HCC) [F31.9] 04/09/2023 Palpitations [R00.2] 04/09/2023 RBBB [I45.10] 04/09/2023 TMJ disorder, unspecified [M26.609] 04/09/2023 Neck pain [M54.2] 04/09/2023 Other irritable bowel syndrome [K58.8] 04/09/2023 History of peptic ulcer [Z87.11] 04/09/2023 History of nephrolithiasis [Z87.442] 04/09/2023 Abnormal Pap smear of cervix [R87.619] 04/09/2023 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] 04/09/2023 DIMITRI (generalized anxiety disorder) [F41.1] 04/09/2023 MDD (major depressive disorder), recurrent epis*04/09/2023 Former smoker [Z87.891] 08/03/2023 Encounter Status:Closed by VENTURA DE JESUS on 08/06/23 Normal [facility] Basic metabolic 2000 panelon 08-04-2023 Anion gap [Moles/Vol] 10 mmol/L Normal 9-18 [facility] Comment on above: Order Comment: Speci men Type: BLOOD SPECIMENOrdering Facility: [facility] Address: [address] [place] [address] Performed By: #### 2 4321-2 ####[facility] LABCL[facility] [id number] [place] [address] Calcium [Mass/Vol] 9.5 mg/dL Normal 8.5-10.2 [facility] Comment on above: Order Comment: Speci men Type: BLOOD SPECIMENOrdering Facility: [facility] Address: [address] [place] [address] Performed By: #### 2 4321-2 ####[facility] LABCL[facility] [id number] [place] [address] Chloride [Moles/Vol] 106 mmol/L High 97-105 [facility] Comment on above: Order Comment: Speci men Type: BLOOD SPECIMENOrdering Facility: [facility] Address: [address] [place] [address] Performed By: #### 2 4321-2 ####[facility] LABCL[facility] [id number] [place] [address] CO2 [Moles/Vol] 24 mmol/L Normal 22-30 [facility] Comment on above: Order Comment: Speci men Type: BLOOD SPECIMENOrdering Facility: [facility] Address: [address] [place] [address] Performed By: #### 2 4321-2 ####[facility]CL[facility] [id number] [place] [address] Creatinine [Mass/Vol] 0.79 mg/dL Normal 0.58-0.96 [facility] Comment on above: Order Comment: Speci men Type: BLOOD SPECIMENOrdering Facility: [facility] Address: [address] [place] [address] Performed By: #### 2 4321-2 ####[facility] LABCL[facility] [id number] [place] [address] Creatinine and Glomerular filtration rate.predicted panel (S/P/Bld) 98 mL/min/1.73m??? Normal >=60 [facility] Comment on above: Order Comment: Speci men Type: BLOOD SPECIMENOrdering Facility: [facility] Address: [address] [id number] Result Comment: Ludivina mated Glomerular Filtration Rate (eGFR) is calculated using the 2020 CKD-EPI creatinine equation. This equation utilizes serum creatinine, sex, and age as parameters. The creatinine assay has traceable calibration to isotope dilution-mass spectrometry. Refer to KDIGO guidelines for clinical interpretation. In patients with unstable renal function, e.g. those with acute kidney injury, the eGFR may not accurately reflect actual GFR. Performed By: #### 2 4321-2 ####[facility]CL[facility] [id number] [place] [address] Glucose [Mass/Vol] 98 mg/dL Normal 74-99 [facility] Comment on above: Order Comment: Caryn campos Type: BLOOD SPECIMENOrdering Facility: [facility] Address: [address] [place] [address] Result Comment: The [place] [employer] (ADA) provides guidance for cutoff values for fasting glucose and random glucose. The ADA defines fasting as no caloric intake for at least 8 hours. Fasting plasma glucose results between 100 to 125 mg/dL indicate increased risk for diabetes (prediabetes). Fasting plasma glucose results greater than or equal to 126 mg/dL meet the criteria for diagnosis of diabetes. In the absence of unequivocal hyperglycemia, results should be confirmed by repeat testing. In a patient with classic symptoms of hyperglycemia or hyperglycemic crisis, random plasma glucose results greater than or equal to 200 mg/dL meet the criteria for diagnosis of diabetes. Reference: Standards of Medical Care in Diabetes 2016, [place] [employer]. Diabetes Care. 2016.39(Suppl 1). Performed By: #### 2 4321-2 ####[facility] [id number] [place] [address] Potassium [Moles/Vol] 3.9 mmol/L Normal 3.7-5.1 [facility] Comment on above: Order Comment: Caryn campos Type: BLOOD SPECIMENOrdering Facility: [facility] Address: [address] [id number] Performed By: #### 2 4321-2 ####[facility]CL[facility] [id number] [place] [address] Sodium [Moles/Vol] 140 mmol/L Normal 136-144 [facility] Comment on above: Order Comment: Speci men Type: BLOOD SPECIMENOrdering Facility: [facility] Address: [address] [place] [address] Performed By: #### 2 4321-2 ####[facility]CL[facility] [id number] [place] [address] Urea nitrogen [Mass/Vol] 8 mg/dL Normal 7-21 [facility] Comment on above: Order Comment: Speci men Type: BLOOD SPECIMENOrdering Facility: [facility] Address: [address] [place] [address] Performed By: #### 2 4321-2 ####[facility]CL[facility] [id number] [place] [address] CBC W Auto Differential pane l (Bld)on 08-04-2023 Basophils (Bld) [#/Vol] 10*3/uL Normal <0.11 [facility] Comment on above: Order Comment: Speci men Type: BLOOD SPECIMENOrdering Facility: [facility] Address: [address] [place] [address] Performed By: #### 5 7021-8 ####[facility] [id number] [place] [address] Basophils/100 WBC (Bld) 0.3 % Normal [facility] Comment on above: Order Comment: Speci men Type: BLOOD SPECIMENOrdering Facility: [facility] Address: [address] [place] [address] Performed By: #### 5 7021-8 ####[facility] LABIA [id number] [place] [address] Differential cell count method Nom (Bld) Auto Normal [facility] Comment on above: Order Comment: Speci men Type: BLOOD SPECIMENOrdering Facility: [facility] Address: [address] [place] [address] Performed By: #### 5 7021-8 ####[facility]CL[facility] [id number] [place] [address] Eosinophils (Bld) [#/Vol] 0.08 10*3/uL Normal <0.46 [facility] Comment on above: Order Comment: Speci men Type: BLOOD SPECIMENOrdering Facility: [facility] Address: [address] [place] [address] Performed By: #### 5 7021-8 ####[facility]CL[facility] [id number] [place] [address] Eosinophils/100 WBC (Bld) 1.3 % Normal [facility] Comment on above: Order Comment: Speci men Type: BLOOD SPECIMENOrdering Facility: [facility] Address: [address] [place] [address] Performed By: #### 5 7021-8 ####[facility]CL[facility] [id number] [place] [address] Erythrocyte distribution width (RBC) [Ratio] 14.8 % Normal 11.5-15.0 [facility] Comment on above: Order Comment: Speci men Type: BLOOD SPECIMENOrdering Facility: [facility] Address: [address] [place] [address] Performed By: #### 5 7021-8 ####[facility]CL[facility] [id number] [place] [address] Hematocrit (Bld) [Volume fraction] 36.9 % Normal 36.0-46.0 [facility] Comment on above: Order Comment: Speci men Type: BLOOD SPECIMENOrdering Facility: [facility] Address: [address] [place] [address] Performed By: #### 5 7021-8 ####[facility] [id number] [place] [address] Hemoglobin (Bld) [Mass/Vol] 11.5 g/dL Normal 11.5-15.5 [facility] Comment on above: Order Comment: Speci men Type: BLOOD SPECIMENOrdering Facility: [facility] Address: [address] [place] [address] Performed By: #### 5 7021-8 ####[facility] [id number] [place] [address] Immature granulocytes (Bld) [#/Vol] 10*3/uL Normal <0.10 [facility] Comment on above: Order Comment: Speci men Type: BLOOD SPECIMENOrdering Facility: [facility] Address: [address] [place] [address] Performed By: #### 5 7021-8 ####[facility] [id number] [place] [address] Immature granulocytes/100 WBC (Bld) 0.3 % Normal [facility] Comment on above: Order Comment: Speci men Type: BLOOD SPECIMENOrdering Facility: [facility] Address: [address] [place] [address] Performed By: #### 5 7021-8 ####[facility]CL[facility] [id number] [place] [address] Lymphocytes (Bld) [#/Vol] 2.60 10*3/uL Normal 1.00-4.00 [facility] Comment on above: Order Comment: Speci men Type: BLOOD SPECIMENOrdering Facility: [facility] Address: [address] [place] [address] Performed By: #### 5 7021-8 ####[facility]CL[facility] [id number] [place] [address] Lymphocytes/100 WBC (Bld) 40.9 % Normal [facility] Comment on above: Order Comment: Speci men Type: BLOOD SPECIMENOrdering Facility: [facility] Address: [address] [place] [address] Performed By: #### 5 7021-8 ####[facility]CL[facility] [id number] [place] [address] MCH (RBC) [Entitic mass] 24.7 pg Low 26.0-34.0 [facility] Comment on above: Order Comment: Speci men Type: BLOOD SPECIMENOrdering Facility: [facility] Address: [address] [place] [address] Performed By: #### 5 7021-8 ####[facility]CL[facility] [id number] [place] [address] MCHC (RBC) [Mass/Vol] 31.2 g/dL Normal 30.5-36.0 [facility] Comment on above: Order Comment: Speci men Type: BLOOD SPECIMENOrdering Facility: [facility] Address: [address] [place] [address] Performed By: #### 5 7021-8 ####[facility] LABIA [id number] [place] [address] MCV (RBC) [Entitic vol] 79.2 fL Low 80.0-100.0 [facility] Comment on above: Order Comment: Speci men Type: BLOOD SPECIMENOrdering Facility: [facility] Address: [address] [place] [address] Performed By: #### 5 7021-8 ####[facility] LABIA [id number] [place] [address] Monocytes (Bld) [#/Vol] 0.38 10*3/uL Normal <0.87 [facility] Comment on above: Order Comment: Speci men Type: BLOOD SPECIMENOrdering Facility: [facility] Address: [address] [place] [address] Performed By: #### 5 7021-8 ####[facility] LABIA [id number] [place] [address] Monocytes/100 WBC (Bld) 6.0 % Normal [facility] Comment on above: Order Comment: Speci men Type: BLOOD SPECIMENOrdering Facility: [facility] Address: [address] [place] [address] Performed By: #### 5 7021-8 ####[facility]CL[facility] [id number] [place] [address] Neutrophils (Bld) [#/Vol] 3.26 10*3/uL Normal 1.45-7.50 [facility] Comment on above: Order Comment: Speci men Type: BLOOD SPECIMENOrdering Facility: [facility] Address: [address] [place] [address] Performed By: #### 5 7021-8 ####[facility]CL[facility] [id number] [place] [address] Neutrophils/100 WBC (Bld) 51.2 % Normal [facility] Comment on above: Order Comment: Speci men Type: BLOOD SPECIMENOrdering Facility: [facility] Address: [address] [place] [address] Performed By: #### 5 7021-8 ####[facility]CL[facility] [id number] [place] [address] Nucleated RBC (Bld) [#/Vol] 10*3/uL Normal <0.01 [facility] Comment on above: Order Comment: Speci men Type: BLOOD SPECIMENOrdering Facility: [facility] Address: [address] [place] [address] Performed By: #### 5 7021-8 ####[facility]CL[facility] [id number] [place] [address] Nucleated RBC/100 WBC (Bld) [Ratio] 0.0 /100 WBC Normal [facility] Comment on above: Order Comment: Speci men Type: BLOOD SPECIMENOrdering Facility: [facility] Address: [address] [place] [address] Performed By: #### 5 7021-8 ####[facility]CL[facility] [id number] [place] [address] Platelet mean volume (Bld) [Entitic vol] 9.0 fL Normal 9.0-12.7 [facility] Comment on above: Order Comment: Speci men Type: BLOOD SPECIMENOrdering Facility: [facility] Address: [address] [place] [address] Performed By: #### 5 7021-8 ####[facility]CL[facility] [id number] [place] [address] Platelets (Bld) [#/Vol] 359 10*3/uL Normal 150-400 [facility] Comment on above: Order Comment: Speci men Type: BLOOD SPECIMENOrdering Facility: [facility] Address: [address] [place] [address] Performed By: #### 5 7021-8 ####[facility] LABIA [id number] [place] [address] RBC (Bld) [#/Vol] 4.66 10*6/uL Normal 3.90-5.20 [facility] Comment on above: Order Comment: Speci men Type: BLOOD SPECIMENOrdering Facility: [facility] Address: [address] [place] [address] Performed By: #### 5 7021-8 ####[facility] LABIA [id number] [place] [address] WBC (Bld) [#/Vol] 6.36 10*3/uL Normal 3.70-11.00 [facility] Comment on above: Order Comment: Speci men Type: BLOOD SPECIMENOrdering Facility: [facility] Address: [address] [place] [address] Performed By: #### 5 7021-8 ####[facility] LABIA [id number] [place] [address] CONFIRM BLOOD TYPEon 024 ABO O Normal [facility] Comment on above: Order Comment: Speci men Type: BLOOD SPECIMENOrdering Facility: [facility] Address: [address] [place] [address] Performed By: #### C ONABO ####[facility] BANKCLIA [id number] [address] Rh Nom (Bld) Positive Normal [facility] Comment on above: Order Comment: Speci men Type: BLOOD SPECIMENOrdering Facility: [facility] Address: [address] [place] [address] Performed By: #### C ONABO ####[facility] MA[facility] BLOOD BANKCLIA [id number] [address] TYPE AND SCREEN,30 DAYon ABO O Normal [facility] Comment on above: Order Comment: Speci men Type: BLOOD SPECIMENOrdering Facility: [facility] Address: [address] [place] [address] Performed By: #### T SCR30 ####[facility] BLOOD BANKCLIA [id number] [address] HISTORICAL AB SCR STATUS Negative Normal [facility] Comment on above: Order Comment: Speci men Type: BLOOD SPECIMENOrdering Facility: [facility] Address: [address] [place] [address] Performed By: #### T SCR30 ####[facility] BLOOD BANKCLIA [id number] [address] Rh Nom (Bld) Positive Normal [facility] Comment on above: Order Comment: Speci men Type: BLOOD SPECIMENOrdering Facility: [facility] Address: [address] [place] [address] Performed By: #### T SCR30 ####[facility] BLOOD BANKCLIA [id number] [address] CNPNon 08-03-2023 CNPN Telephone (SPNSMN) ----- LADI BYERS ([id number]) 1985 F Date Time Provider Department 08/03/23 JOO CRUZ During your visit today, we recorded the following information about you: Ventura De Jesus RN 08/03/2023 8:36 AM Signed Neuro SPINE CARE COORDINATION QUICK NOTE Call to the pt who has cx and postponed her PACC apt times two. Insurer requesting nicotine test. FC working with insurer have been updated that pt has cord compression with long tract signs per Dr. Cruz. Pt has apt today and will complete her nicotine screen today . JOSEE updated. Allergies As of Date: 08/03/2023 Noted Allergy Reaction CARIPRAZINE 12/29/2021 14 - Other: See Comments 16 - Unknown IOTHALAMIC ACID 08/10/2013 14 - Other: See Comments METOCLOPRAMIDE 08/10/2013 14 - Other: See Comments PENICILLINS 12/18/2018 4 - Hives REGLAN (METOCLOPRAMIDE HCL) 12/30/2009 1 - Mental Status Change Date Reviewed: 08/02/2023 Reviewed by: Julieta Correa OCCA - Fully Assessed Prescriptions as of 08/03/2023 - propranolol ER (INDERAL LA) 80 mg 24 hr capsule Take 1 capsule by mouth once daily. - gabapentin (NEURONTIN) 100 mg capsule TAKE 2 CAPSULES BY MOUTH TWICE A DAY FOR 90 DAYS - gabapentin (NEURONTIN) 100 mg capsule Take 2 capsules by mouth two times a day for 90 days. - celecoxib (CELEBREX) 200 mg capsule TAKE 1 CAPSULE BY MOUTH EVERY DAY - albuterol HFA (PROVENTIL HFA) 90 mcg/actuation inhaler Inhale 1-2 Puffs as instructed every 4 hours as needed for wheezing/shortness of breath. - VYVANSE 20 mg capsule - pantoprazole DR (PROTONIX) 40 mg tablet Take 1 tablet by mouth every afternoon. - melatonin 3 mg tablet Take 3 mg by mouth. - cyclobenzaprine (FLEXERIL) 5 mg tablet Take 1 tablet by mouth once daily as needed. - guaiFENesin (MUCINEX) 600 mg 12 hr tablet Take 1,200 mg by mouth twice daily as needed for cold/allergy symptoms. - dicyclomine (BENTYL) 10 mg capsule 1 capsule. - busPIRone (BUSPAR) 10 mg tablet Take 10 mg by mouth three times a day. - hydrOXYzine HCl (ATARAX) 25 mg tablet - cetirizine (ZYRTEC) 10 mg tablet Take 10 mg by mouth daily at bedtime. - SUMAtriptan (IMITREX) 50 mg tablet TAKE 1 TABLET BY MOUTH TWICE DAILY NEEDED AT ONSET OF HEADACHE MAY REPEAT IN 1 HOUR Problem List As Of Date 08/03/2023 Noted Resolved Migraine [346] 01/25/2003 04/09/2023 Migraines [G43.909] 01/22/2004 HEADACHE [R51] 01/22/2004 PTSD (post-traumatic stress disorder) [F43.10] 04/09/2023 Bipolar 1 disorder (HCC) [F31.9] 04/09/2023 Palpitations [R00.2] 04/09/2023 RBBB [I45.10] 04/09/2023 TMJ disorder, unspecified [M26.609] 04/09/2023 Neck pain [M54.2] 04/09/2023 Other irritable bowel syndrome [K58.8] 04/09/2023 History of peptic ulcer [Z87.11] 04/09/2023 History of nephrolithiasis [Z87.442] 04/09/2023 Abnormal Pap smear of cervix [R87.619] 04/09/2023 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] 04/09/2023 DIMITRI (generalized anxiety disorder) [F41.1] 04/09/2023 MDD (major depressive disorder), recurrent epis*04/09/2023 Encounter Status:Closed by VENTURA DE JESUS on 08/03/23 [facility] HISTORY PHYSICALon HISTORY PHYSICAL HNO ID: [id number] Author: NAYANA MCLEAN PA-C Service: ? Author Type: Physician Caterers Helper Type: H&P Filed: 08/06/2023 09:46 Note Text: HISTORY AND PHYSICAL EXAMINATION SERVICE DATE: 08/03/2023 SERVICE TIME: 12:00 PM PRIMARY CARE PHYSICIAN: Reuben Agrawal PA-C REASON FOR VISIT: Ladi Byers is a 38 year old female who is scheduled for ARTHRODESIS ANT DISC PREP DISCECTOMY OSTEOPHYTECTOMY DECOMPRES S CORD/NERVE ROOT C' BELOW C2 SPINE ALLOGRAFT ANTERIOR INSTRUMENTATION 2 VERTEBRAL SEGMENTS at the request of Dr. Joo Cruz for consultation. My final recommendation will be communicated back to the requesting physician by way of shared medical record or letter. The patient has the following: ACTIVE PROBLEM LIST Migraines Headache(784.0) Ptsd (Post-Traumatic Stress Disorder) Bipolar 1 Disorder (Hcc) Palpitations Rbbb TMJ Disorder, Unspecified Neck Pain Other Irritable Bowel Syndrome History of Peptic Ulcer History of Nephrolithiasis Abnormal Pap Smear of Cervix Cerebellar Tonsillar Ectopia (Hcc) Dimitri (Generalized Anxiety Disorder) Mdd (Major Depressive Disorder), Recurrent Episode, Mild (Hcc) Former Smoker Subjective CHIEF COMPLAINT: Pre op exam HPI: Patient is a 38 year old female with c/o neck pain rated 5 out of 10 and described as aching and tightness. Has been seen and evaluated by neurosurgery. Found to have cervical spinal stenosis. Patient has been recommended for procedure listed above; electing to proceed. PAST MEDICAL HISTORY Diagnosis Date Bipolar 1 disorder (HCC) Followed by psychiatry C. difficile diarrhea Cervical dysplasia or atypia status post cryo treatment Chlamydia 07/05/2004 DIMITRI (generalized anxiety disorder) 04/09/2023 Headache(784.0) 07/05/2009 Daily-qod, thoracic to base of skull, tightening, no time of day History of peptic ulcer large 2021 MDD (major depressive disorder), recurrent episode, mild (HCC) 04/09/2023 Migraine headache 07/05/2003 Photophobia, nausea, vomiting, weekly Neck pain Nephrolithiasis 07/05/2004 Other irritable bowel syndrome Palpitation Evaluated by cardiology RBBB TMJ disorder, unspecified PAST SURGICAL HISTORY Procedure Laterality Date ACL repair 2001 Left knee COLONOSCOPY 08/25/2022 EGD 10/09/2021 ulcer EGD 02/09/2022 scar from previous ulcer EGD 08/25/2022 TONSILLECTOMY HX FAMILY HISTORY Problem Relation Age of Onset Skin Cancer Mother Alcohol/Drug Mother Migraines Father Drug abuse Brother Colon Cancer Maternal Grandmother Ischemic Heart Disease Paternal Grandmother Ischemic Heart Disease Paternal Grandfather Lung Cancer Paternal Grandfather Colon Cancer Maternal great-grandfather SOCIAL HISTORY: Social History Tobacco Use Smoking status: Former Packs/day: 0.50 Years: 20.00 Additional pack years: 0.00 Total pack years: 10.00 Types: Cigarettes Quit date: 07/12/2023 Years since quittin.0 Smokeless tobacco: Never Vaping Use Vaping Use: current everyday user Substances: Nicotine, Flavoring Devices: Disposable Substance Use Topics Alcohol use: Yes Alcohol/week: 2.0 standard drinks of alcohol Types: 2 Standard drinks or equivalent per week Comment: 7-8 drinks per month Drug use: No Comment: Marijuana at age 17 Prior to Admission medications as of 08/03/23 1205 Medication Sig Last Dose Taking cyanocobalamin (VITAMIN B-12) 1,000 mcg tab Take 1 tablet by mouth every afternoon. Taking Yes BLISOVI 24 FE 1 mg-20 mcg (24)/75 mg (4) Take 1 tablet by mouth every afternoon. Taking Yes mupirocin (BACTROBAN) 2 % ointment Apply 0.5 inch with cotton swab (Q-tip) to each nostril in the morning and evening for 5 days prior to and including day of surgery. Patient should start on August 05, 2023. Yes propranolol ER (INDERAL LA) 80 mg 24 hr capsule Take 1 capsule by mouth once daily. Taking Yes gabapentin (NEURONTIN) 100 mg capsule TAKE 2 CAPSULES BY MOUTH TWICE A DAY FOR 90 DAYS Taking Yes gabapentin (NEURONTIN) 100 mg capsule Take 2 capsules by mouth two times a day for 90 days. Taking Yes celecoxib (CELEBREX) 200 mg capsule TAKE 1 CAPSULE BY MOUTH EVERY DAY Taking Yes albuterol HFA (PROVENTIL HFA) 90 mcg/actuation inhaler Inhale 1-2 Puffs as instructed every 4 hours as needed for wheezing/shortness of breath. Taking Yes VYVANSE 20 mg capsule Taking Yes pantoprazole DR (PROTONIX) 40 mg tablet Take 1 tablet by mouth every afternoon. Yes cyclobenzaprine (FLEXERIL) 5 mg tablet Take 1 tablet by mouth once daily as needed. Taking Yes guaiFENesin (MUCINEX) 600 mg 12 hr tablet Take 1,200 mg by mouth twice daily as needed for cold/allergy symptoms. Taking Yes dicyclomine (BENTYL) 10 mg capsule 1 capsule. Taking Yes busPIRone (BUSPAR) 10 mg tablet Take 10 mg by mouth three times a day. Taking Yes hydrOXYzine HCl (ATARAX) 25 mg tablet Taking Yes cetirizine (ZYRTEC) 10 mg tablet Take 10 mg by mouth daily (more content not included)... Normal [facility] NICOTINE/COTININEon 08-03-19 24 Cotinine [Mass/Vol] 100 ng/mL High <2 [facility] Comment on above: Order Comment: Speci men Type: BLOOD SPECIMENOrdering Facility: [facility] Address: [address] [place] [address] Result Comment: Acti ve tobacco product user: Nicotine concentration: 30 - 50 ng/mL Cotinine concentration: 200 - 800 ng/mL Passive exposure to tobacco: Nicotine concentration: < 2 ng/mL Cotinine concentration: < 8 ng/mL Unexposed non-tobacco user or abstinent user for > 2 weeks: Nicotine concentration: < 2 ng/mL Cotinine concentration: < 2 ng/mL This test was developed and its performance characteristics determined by [facility]'s [facility] Pathology and Laboratory Medicine [place] ([facility]). It has not been cleared or approved by the FDA. [facility] is regulated under CLIA as qualified to perform high-complexity testing. This test is used for clinical purposes. It should not be regarded as investigational or for research. Performed By: #### N ICOT ####[facility] LABCLIA [id number] [place] [address] [place] Nicotine [Mass/Vol] 16 ng/mL High <2 [facility] Comment on above: Order Comment: Speci men Type: BLOOD SPECIMENOrdering Facility: [facility] Address: [address] [place] [address] Performed By: #### N ICOT ####[facility] LABCLIA [id number] [place] [address] [place] STAPH AUREUS PCRon 4 S. aureus and MRSA panel SAMAN+probe (Nose) Normal Negative [facility] Comment on above: Order Comment: Speci men Type: SWAB OF INTERNAL NOSEOrdering Facility: [facility] Address: [address], [place] [address] Result Comment: Nega tive for Staphylococcus aureus by PCR. Negative for MRSA by PCR Performed By: #### S APCR ####[facility] LABCLIA [id number] [id number] [id number] [place] CNOVon 08-02-2023 CNOV Office Visit (CHRISTIAN ) ----- LADI BYERS ([id number]) 1985 F Date Time Provider Department 08/02/23 11:00 AM CHANTAL HUMPHREY During your visit today, we recorded the following information about you: Pulse Blood pressure Weight Height 112/minute 118/74 70.3 kg 1.524 m Last Period 07/19/23 Chantal Humphrey APRN.[employer]CIAL [employer] PRESIDENT 08/02/2023 12:22 PM Signed [facility] [place] [facility] [place] Department of Cardiovascular Medicine SECTION OF CLINICAL CARDIOLOGY OUTPATIENT VISIT DATE August 02, 2023 OUTPATIENT VISIT TYPE ESTABLISHED PRIMARY CARE PHYSICIAN: Reuben Agrawal [address] [place] [address] CHIEF COMPLAINT: Follow Up HISTORY OF PRESENT ILLNESS: Ms. Byers is a 38 year old female, patient of Dr. Low who presents today for a cardiovascular medicine follow-up visit to review ZIO monitor results. Ms. Byers was seen by Dr. Low in June at which time Ms. Byers had concerns regarding palpitations/tachycardia and RBBB. She was provided with PRN propranolol and a ZIO monitor was applied. She presents today to review these results. She states that she has used propranolol a few times and it has helped her palpitations. PMH: PAST MEDICAL HISTORY Diagnosis Date Bipolar 1 disorder (HCC) Followed by psychiatry C. difficile diarrhea Cervical dysplasia or atypia status post cryo treatment Chlamydia 07/05/2004 DIMITRI (generalized anxiety disorder) 04/09/2023 Headache(784.0) 07/05/2009 Daily-qod, thoracic to base of skull, tightening, no time of day History of peptic ulcer large 2021 MDD (major depressive disorder), recurrent episode, mild (HCC) 04/09/2023 Migraine headache 07/05/2003 Photophobia, nausea, vomiting, weekly Neck pain Nephrolithiasis 07/05/2004 Other irritable bowel syndrome Palpitation Evaluated by cardiology RBBB TMJ disorder, unspecified PAST SURGICAL HISTORY Procedure Laterality Date ACL repair 2001 Left knee COLONOSCOPY 08/25/2022 EGD 10/09/2021 ulcer EGD 02/09/2022 scar from previous ulcer EGD 08/25/2022 TONSILLECTOMY HX SOCIAL HISTORY Social History Tobacco Use Smoking status: Every Day Packs/day: 0.50 Years: 20.00 Additional pack years: 0.00 Total pack years: 10.00 Types: Cigarettes Smokeless tobacco: Never Vaping Use Vaping Use: current everyday user Substances: Nicotine, Flavoring Devices: Disposable Substance Use Topics Alcohol use: Yes Alcohol/week: 2.0 standard drinks of alcohol Types: 2 Standard drinks or equivalent per week Comment: 7-8 drinks per month Drug use: No Comment: Marijuana at age 17 FAMILY HISTORY Problem Relation Age of Onset Skin Cancer Mother Alcohol/Drug Mother Migraines Father Drug abuse Brother Colon Cancer Maternal Grandmother Ischemic Heart Disease Paternal Grandmother Ischemic Heart Disease Paternal Grandfather Lung Cancer Paternal Grandfather Colon Cancer Maternal great-grandfather ALLERGIES Allergen Reactions Cariprazine Other: See Comments, Unknown Iothalamic Acid Other: See Comments Metoclopramide Other: See Comments Penicillins Hives Reglan [Metoclopram* Mental Status Change MEDICATIONS: gabapentin (NEURONTIN) 100 mg capsule TAKE 2 CAPSULES BY MOUTH TWICE A DAY FOR 90 DAYS gabapentin (NEURONTIN) 100 mg capsule Take 2 capsules by mouth two times a day for 90 days. celecoxib (CELEBREX) 200 mg capsule TAKE 1 CAPSULE BY MOUTH EVERY DAY propranolol (INDERAL) 20 mg tablet Take 1 tablet by mouth as directed. Take 20 mg as needed for sustained palpitations. Can repeat 20 mg every 6-8 hrs if needed. albuterol HFA (PROVENTIL HFA) 90 mcg/actuation inhaler Inhale 1-2 Puffs as instructed every 4 hours as needed for wheezing/shortness of breath. VYVANSE [address] (PROTONIX) 40 mg tablet Take 1 tablet by mouth every afternoon. melatonin 3 mg tablet Take 3 mg by mouth. cyclobenzaprine (FLEXERIL) 5 mg tablet Take 1 tablet by mouth once daily as needed. guaiFENesin (MUCINEX) 600 mg 12 hr tablet Take 1,200 mg by mouth twice daily as needed for cold/allergy symptoms. dicyclomine (BENTYL) 10 mg capsule 1 capsule. busPIRone (BUSPAR) 10 mg tablet Take 10 mg by mouth three times a day. hydrOXYzine HCl (ATARAX) 25 mg tablet cetirizine (ZYRTEC) 10 mg tablet Take 10 mg by mouth daily at bedtime. SUMAtriptan (IMITREX) 50 mg tablet TAKE 1 TABLET BY MOUTH TWICE DAILY NEEDED AT ONSET OF HEADACHE MAY REPEAT IN 1 HOUR REVIEW OF SYSTEMS: ROS is otherwise negative apart from what has been documented in HPI PHYSICAL EXAMINATION: BP 118/74 (BP Site: Right Arm, BP Position: Sitting, BP Cuff Size: Regular Adult) Pulse 112 Ht 152.4 cm (5') Wt 70.3 kg (155 lb) LMP 07/19/2023 (Exact Date) SpO2 98% BMI 30.27 kg/m? General: Well ap (more content not included)... Normal [facility] yKle [facility]20[facility] [place] LADI BYERS ([id number]) 1985 F Date Time Provider Department 07/29/23 REUBEN AGRAWAL During your visit today, we recorded the following information about you: Godfrey Martin MA 07/29/2023 10:41 AM Signed Type of form: Discharge note Form received via fax When form is completed, Fax form to [facility] @ [phone] Form has been forwarded to Physician Mailbox: Reuben Agrawal PA-C Last appointment: 04/09/2023 Next scheduled appointment: Visit date not found Godfrey Martin MA July 29, 2023 10:40 AM Godfrey Martin MA 07/30/2023 12:16 PM Signed Faxed back. Sent to scanning. Godfrey Martin MA July 30, 2023 12:15 PM Allergies As of Date: 07/29/2023 Noted Allergy Reaction CARIPRAZINE 12/29/2021 14 - Other: See Comments 16 - Unknown IOTHALAMIC ACID 08/10/2013 14 - Other: See Comments METOCLOPRAMIDE 08/10/2013 14 - Other: See Comments PENICILLINS 12/18/2018 4 - Hives REGLAN (METOCLOPRAMIDE HCL) 12/30/2009 1 - Mental Status Change Date Reviewed: 07/26/2023 Reviewed by: Corine Smalls MA - Fully Assessed Reason for Visit: Orders [681] Cmt: Discharge note Prescriptions as of 07/30/2023 - gabapentin (NEURONTIN) 100 mg capsule TAKE 2 CAPSULES BY MOUTH TWICE A DAY FOR 90 DAYS - gabapentin (NEURONTIN) 100 mg capsule Take 2 capsules by mouth two times a day for 90 days. - celecoxib (CELEBREX) 200 mg capsule TAKE 1 CAPSULE BY MOUTH EVERY DAY - propranolol (INDERAL) 20 mg tablet Take 1 tablet by mouth as directed. Take 20 mg as needed for sustained palpitations. Can repeat 20 mg every 6-8 hrs if needed. - albuterol HFA (PROVENTIL HFA) 90 mcg/actuation inhaler Inhale 1-2 Puffs as instructed every 4 hours as needed for wheezing/shortness of breath. - VYVANSE 20 mg capsule - pantoprazole DR (PROTONIX) 40 mg tablet Take 1 tablet by mouth every afternoon. - melatonin 3 mg tablet Take 3 mg by mouth. - cyclobenzaprine (FLEXERIL) 5 mg tablet Take 1 tablet by mouth once daily as needed. - guaiFENesin (MUCINEX) 600 mg 12 hr tablet Take 1,200 mg by mouth twice daily as needed for cold/allergy symptoms. - dicyclomine (BENTYL) 10 mg capsule 1 capsule. - busPIRone (BUSPAR) 10 mg tablet Take 10 mg by mouth three times a day. - hydrOXYzine HCl (ATARAX) 25 mg tablet - cetirizine (ZYRTEC) 10 mg tablet Take 10 mg by mouth daily at bedtime. - SUMAtriptan (IMITREX) 50 mg tablet TAKE 1 TABLET BY MOUTH TWICE DAILY NEEDED AT ONSET OF HEADACHE MAY REPEAT IN 1 HOUR Problem List As Of Date 07/29/2023 Noted Resolved Migraine [346] 01/25/2003 04/09/2023 Migraines [G43.909] 01/22/2004 HEADACHE [R51] 01/22/2004 PTSD (post-traumatic stress disorder) [F43.10] 04/09/2023 Bipolar 1 disorder (HCC) [F31.9] 04/09/2023 Palpitations [R00.2] 04/09/2023 RBBB [I45.10] 04/09/2023 TMJ disorder, unspecified [M26.609] 04/09/2023 Neck pain [M54.2] 04/09/2023 Other irritable bowel syndrome [K58.8] 04/09/2023 History of peptic ulcer [Z87.11] 04/09/2023 History of nephrolithiasis [Z87.442] 04/09/2023 Abnormal Pap smear of cervix [R87.619] 04/09/2023 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] 04/09/2023 DIMITRI (generalized anxiety disorder) [F41.1] 04/09/2023 MDD (major depressive disorder), recurrent epis*04/09/2023 Encounter Status:Closed by GODFREY MARTIN on 07/29/23 [facility] CNOVon 07-26-2023 CNOV Office Visit ([facility]PS[facility] ) ----- LADI BYERS ([id number]) 1985 F Date Time Provider Department 07/26/23 8:40 AM JOO CRUZ [facility] During your visit today, we recorded the following information about you: Joo Cruz MD 07/26/2023 12:31 PM Signed SPINE SURGERY ESTABLISHED This is an in-person visit. DATE OF SERVICE: 07/26/2023 DATE OF LAST VISIT: 07/02/2023 SUBJECTIVE: HPI:Ladi Byers is a 38 year old female presenting alone. Patient returns to see me following updated imaging, she denies any changes in her overall condition continues to report left greater than right radicular complaints going down the back of the arms into the middle finger. She reports that she has stopped all nicotine products, she denies any progression of her balance issues, reports no issues with bowel or bladder. DERMATOMAL DISTRIBUTION: L>R C7 AMBULATORY STATUS: Independent Community Distances ANTIPLATELET OR ANTICOAGULATION STATUS: No PREVIOUS CONSERVATIVE TREATMENTS: Nsaids Traction therapy PT Membrane stablizers REVIEW OF SYSTEMS: All are negative except those stated in the History of Present illness. MEDICATIONS: gabapentin (NEURONTIN) 100 mg capsule TAKE 2 CAPSULES BY MOUTH TWICE A DAY FOR 90 DAYS gabapentin (NEURONTIN) 100 mg capsule Take 2 capsules by mouth two times a day for 90 days. celecoxib (CELEBREX) 200 mg capsule TAKE 1 CAPSULE BY MOUTH EVERY DAY propranolol (INDERAL) 20 mg tablet Take 1 tablet by mouth as directed. Take 20 mg as needed for sustained palpitations. Can repeat 20 mg every 6-8 hrs if needed. albuterol HFA (PROVENTIL HFA) 90 mcg/actuation inhaler Inhale 1-2 Puffs as instructed every 4 hours as needed for wheezing/shortness of breath. VYVANSE [address] (PROTONIX) 40 mg tablet Take 1 tablet by mouth every afternoon. melatonin 3 mg tablet Take 3 mg by mouth. cyclobenzaprine (FLEXERIL) 5 mg tablet Take 1 tablet by mouth once daily as needed. guaiFENesin (MUCINEX) 600 mg 12 hr tablet Take 1,200 mg by mouth twice daily as needed for cold/allergy symptoms. dicyclomine (BENTYL) 10 mg capsule 1 capsule. busPIRone (BUSPAR) 10 mg tablet Take 10 mg by mouth three times a day. hydrOXYzine HCl (ATARAX) 25 mg tablet cetirizine (ZYRTEC) 10 mg tablet Take 10 mg by mouth daily at bedtime. SUMAtriptan (IMITREX) 50 mg tablet TAKE 1 TABLET BY MOUTH TWICE DAILY NEEDED AT ONSET OF HEADACHE MAY REPEAT IN 1 HOUR Patient Entered Questionnaires Spine Questions 07/02/2023 07/22/2023 07/26/2023 Pain Location: Neck Neck Neck Pain Duration: 1 to 5 years - - Pain over last 6 months: Every day or nearly every day in the past 6 months - - Symptoms from neck/cervical spine: Yes Yes Yes Employment Status: Looking for work, unemployed - - Off work 1 month or more due to back/neck pain: Yes - - Applied for/receive disability/WC due to low back/neck pain No - - Involved in law suit/legal claim: No - - Neck Questionnaires 06/18/2023 Benzel Modified NITIN Score 14 (A lower score indicates increased pain and issues.) PROMIS Score Percentiles Physical Health 06/18/2023 07/02/2023 07/22/2023 Physical Function Percentile - 12 - Sleep Percentile 1 - 4 Fatigue Percentile 1 - 4 Pain Interference Percentile - 4 - PROMIS SOCIAL ROLE SCORE 06/18/2023 07/22/2023 Social Role Satisfaction Percentile 14 18* PROMIS Global Health Scale 04/09/2023 07/02/2023 Physical Health Percentile 15 4 Mental Health Percentile 13 13 Percentiles provide an indication of how the patient's score ranks in relation to the general population. Higher percentile rankings indicate better function/quality of life. 50th percentile is the average of the general population and indicates half of respondents had a worse score. Depression Screening: PHQ-9 04/07/2023 07/02/2023 Score 7 12 PHQ-9 Self-harm Question 04/07/2023 07/02/2023 Thoughts that you would be better off , or of hurting yourself in some way 0 0 PHQ-9 Self-Harm (Item 9) response options: 0 Not at all 1 Several days 2 More than half the days 3 Nearly every day PHQ-9 Levels: 0-4 No to mild depression 5-9 Mild depression 10-14 Moderate depression 15-19 Moderately severe depression 20-27 Severe depression OBJECTIVE: PHYSICAL EXAM: LMP 03/31/2023 GENERAL APPEARANCE: Well nourished, well developed, and no apparent distress. NEURO PSYCH: Patient oriented to person, place, and time. Mood pleasant. Benign affect. MUSCULOSKELETAL VISUAL INSPECTION CERVICAL: WNL THORACIC: WNL LUMBAR: WNL MOTOR: 5/5 in all muscle groups. SENSORY: Normal sensory exam GAIT: Normal. DATA REVIEW:Diagnostic tests reviewed for today's visit, films/specimens were personally reviewed by me: [facility] records independently reviewed MRI reviewed with large central C6/7 dis heirnation slightly biased towar (more content not included)... [facility] 07-20-2023 [facility] Telephone ([facility]) ----- LADI BYERS ([id number]) 1985 F Date Time Provider Department 07/20/23 JOO CRUZ [facility] During your visit today, we recorded the following information about you: Ventura De Jesus RN 07/20/2023 12:12 PM Signed Neuro SPINE CARE COORDINATION QUICK NOTE Insurance recommending Nicotine test. Order has been placed and the pt. Will complete at [facility]. Ventura De Jesus RN 07/27/2023 11:32 AM Signed Neuro SPINE CARE COORDINATION QUICK NOTE Call to the pt for update. She is planning her nicotine test on 07-29-23 along with her PACC apt. Allergies As of Date: 07/20/2023 Noted Allergy Reaction CARIPRAZINE 12/29/2021 14 - Other: See Comments 16 - Unknown IOTHALAMIC ACID 08/10/2013 14 - Other: See Comments METOCLOPRAMIDE 08/10/2013 14 - Other: See Comments PENICILLINS 12/18/2018 4 - Hives REGLAN (METOCLOPRAMIDE HCL) 12/30/2009 1 - Mental Status Change Date Reviewed: 07/02/2023 Reviewed by: Marv Murillo RN - Fully Assessed Prescriptions as of 07/27/2023 - gabapentin (NEURONTIN) 100 mg capsule TAKE 2 CAPSULES BY MOUTH TWICE A DAY FOR 90 DAYS - gabapentin (NEURONTIN) 100 mg capsule Take 2 capsules by mouth two times a day for 90 days. - celecoxib (CELEBREX) 200 mg capsule TAKE 1 CAPSULE BY MOUTH EVERY DAY - propranolol (INDERAL) 20 mg tablet Take 1 tablet by mouth as directed. Take 20 mg as needed for sustained palpitations. Can repeat 20 mg every 6-8 hrs if needed. - albuterol HFA (PROVENTIL HFA) 90 mcg/actuation inhaler Inhale 1-2 Puffs as instructed every 4 hours as needed for wheezing/shortness of breath. - VYVANSE 20 mg capsule - pantoprazole DR (PROTONIX) 40 mg tablet Take 1 tablet by mouth every afternoon. - melatonin 3 mg tablet Take 3 mg by mouth. - cyclobenzaprine (FLEXERIL) 5 mg tablet Take 1 tablet by mouth once daily as needed. - guaiFENesin (MUCINEX) 600 mg 12 hr tablet Take 1,200 mg by mouth twice daily as needed for cold/allergy symptoms. - dicyclomine (BENTYL) 10 mg capsule 1 capsule. - busPIRone (BUSPAR) 10 mg tablet Take 10 mg by mouth three times a day. - hydrOXYzine HCl (ATARAX) 25 mg tablet - cetirizine (ZYRTEC) 10 mg tablet Take 10 mg by mouth daily at bedtime. - SUMAtriptan (IMITREX) 50 mg tablet TAKE 1 TABLET BY MOUTH TWICE DAILY NEEDED AT ONSET OF HEADACHE MAY REPEAT IN 1 HOUR Problem List As Of Date 07/20/2023 Noted Resolved Migraine [346] 01/25/2003 04/09/2023 Migraines [G43.909] 01/22/2004 HEADACHE [R51] 01/22/2004 PTSD (post-traumatic stress disorder) [F43.10] 04/09/2023 Bipolar 1 disorder (HCC) [F31.9] 04/09/2023 Palpitations [R00.2] 04/09/2023 RBBB [I45.10] 04/09/2023 TMJ disorder, unspecified [M26.609] 04/09/2023 Neck pain [M54.2] 04/09/2023 Other irritable bowel syndrome [K58.8] 04/09/2023 History of peptic ulcer [Z87.11] 04/09/2023 History of nephrolithiasis [Z87.442] 04/09/2023 Abnormal Pap smear of cervix [R87.619] 04/09/2023 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] 04/09/2023 DIMITRI (generalized anxiety disorder) [F41.1] 04/09/2023 MDD (major depressive disorder), recurrent epis*04/09/2023 Encounter Status:Closed by VENTURA DE JESUS on 07/20/23 Normal [facility] ECG 12-Leadon 07-19-2023 ECG 12-Lead [id number] Normal [facility] Comment on above: Other Comment: PROVI CARLO REFUSED TO SIGN Echocardiographyon Echocardiography [id number] Normal [facility] CT CERVICAL SPINE WO IVCONon 07-16-2023 CT CERVICAL SPINE WO IVCON * * *Final Report* * * DATE OF EXAM: Jul 16 2023 3:26PM [facility] [place] CERVICAL SPINE WO IVCON / PROCEDURE REASON: M48.02-Spinal stenosis of cervical region * * * * Physician Interpretation * * * * EXAMINATION: CT CERVICAL SPINE WO IVCON CLINICAL HISTORY: Spinal stenosis of cervical region TECHNIQUE: Spiral, high resolution axial unenhanced images were obtained from the skull base to the cervicothoracic junction with sagittal and coronal planar reconstructions. MQ: [id number] CT Radiation dose: Integrated CT Dose-Length Product (DLP) for this visit = 450 mGy*cm CT Dose Reduction Employed: Automated exposure control(AEC) and iterative recon COMPARISON: None. RESULT: Counting reference: Craniocervical junction. Anatomic Variants: None. Radio Talk Show Host (topogram) images: No additional findings. Alignment: There appears be minimal C5 on C6 anterolisthesis. No jumped facet. There is straightening of the cervical spine curvature. Craniocervical junction: Craniocervical junction is normal. Osseous structures/fracture: No evidence of a lytic or blastic process in the visualized spine. No evidence of acute or chronic fracture. Cervical soft tissues: The paraspinal soft tissues are within normal limits. Degenerative changes: No significant degenerative changes. The disc spaces are grossly maintained. No central canal stenosis. IMPRESSION: Straightening of the cervical spine curvature. Minimal C5 on C6 anterolisthesis. No CT evidence of central canal stenosis. Career Coach: [facility] Transcribe Date/Time: Jul 16 2023 8:55P Dictated by : DIEGO AMIN MD This examination was interpreted and the report reviewed and electronically signed by: DIEGO AMIN MD on Jul 16 2023 9:00PM EST [id number] [facility] Office Visit (MATTS ) ----- LADI BYERS ([id number]) 1985 F Date Time Provider Department 07/09/23 11:00 AM TRISTAN GUALLPA During your visit today, we recorded the following information about you: Temperature Pulse Blood pressure Weight 98.3 degrees 109/minute 110/69 77 kg Height 1.524 m Tristan Guallpa MD 07/12/2023 6:58 AM Signed Impression: This is Ms. Ladi Byers, a 38 year old female who presents to the [facility] clinic with the chief complaint of tremor. Reports episodes of head heaviness. Starts in neck. Neck pain. Hands can get shaky and lock up. It can be difficult to hold things with the hands. Ongoing for 6 months. Seems to be brought on with activity (e.g., physical therapy). Feels better with neck extension. Episodes can occur every day. Random. 60 to 90 seconds. No weakness between episodes. No constant numbness/tingling. Does well on exam today. I wonder if these episodes are cervical related. The patient is established with neurosurgery and has cervical spine surgery scheduled, in fact. I also wonder if there is an affective component to these episodes. Plan: - No further workup at this time from neurology/neuromuscular perspective. - If possible, obtain a video of 1 of these episodes. This could be sent to our office for further review. - Follow-up together as needed. Tristan Guallpa MD Staff, Neurom[facility] Center [facility] [place] HPI: This is Ms. Ladi Byers, a 38 year old female who presents to the [facility] clinic with the chief complaint of tremor. Review: Last seen 03/05/2023. New complaints today, outside work-up discussed. Cervical pain. Constant? Seems worse in the setting of stress. Outside of the left face, no fluctuating numbness. No fluctuating weakness in the arms or legs that seems to be related to neck pain. No trouble swallowing. On very focused exam, does quite well. Brings MRI report as well as MRI CD-ROM. MRI CD-ROM uploaded into our system during our visit together. This study seems to have shown very slight descent of cerebellar tonsils through the foramen magnum. Of note, very recently with challenging social situation. On unpaid leave since our last visit. The patient's TMJ seems to be improving. Plan: - Physical therapy prescription refilled for TMJ today. - With regard to MRI findings as well as neck pain, referral to neurosurgery to go over the patient's symptomatology as well as MRI report. - For comprehensive care, follow-up with primary care. CC: Tremor? Today: Tremor Feels like head is hanging on shoulders Sensation of tremor Almost like shaking of seizure Starts in neck Like up behind back of skull Neck hurts when this happens Imitates an episode Sits on hospital bed in room Pops neck Tearful Hands can get shaky Hands lock up Hard to hold pots and pans Ongoing for past 6 months or so PT seems to have brought things on Can last 60-90 seconds Can occur every day Random, Comes on with PT Stress brings it on Worse when explaining it Feels better when head is back Feels better on traction machine No weakness between episodes No constant numbness/tingling Get floaters Head spinning Balance issues (she thinks this is cord related) Past history per chart review includes: (Per my 12/21/2022 clinic note) Past medical history, problem list: Migraine, nephrolithiasis, chlamydia, cervical dysplasia or atypia status post cryo treatment Past surgical history: ACL repair, knee arthroscopy Family history: Social history: Former smoker Drinks alcohol OBJECTIVE: PHYSICAL EXAM: Imitates an episode Sits on hospital bed in room Pops neck Tearful Crying Starts to do its own thing Head contorted Neurological: Mental Status: Alert. Speech fluent. Cranial Nerves: CN IX: No hypophonia. Motor: No rest tremor (but writhing in pain) No postural tremor No intention tremor Individual muscle group testing: Right Left Shoulder abduction 5 5 Elbow flexion 5 5 Elbow extension 5 5 Wrist extension Wrist flexion Finger extension 5 Approx 5? Distal finger flexion 5 5 Thumb abduction Snow Groomer Approx 5 5 Hip flexion Knee extension Knee flexion Dorsiflexion 5 5 Ankle inversion 5 5 Ankle eversion Plantarflexion See below See below Performs multiple unassisted squats Toe walks. Reflexes: R L Biceps 2 2 Triceps 2 2 Patellar 2 2 Ankle 2 2 Difficult, but toes seem down Sensation: Intact to sharp in the distal upper and lower extremities. Coordination: FNF intact. Gait: Stands with arms crossed. Ambulates easily in the clinic ram. Normal, narrow-based gait. Good foot clearance. This note was partially created using voice recognition software and is (more content not included)... Normal [facility] HbA1c (Bld)on 07-08-2023 Average glucose Estimated from glycated hemoglobin (Bld) [Mass/Vol] 94 mg/dL Normal [facility] Comment on above: Order Comment: Speci men Type: BLOOD SPECIMENOrdering Facility: [facility] Address: [address] [place] [address] Result Comment: eAG: (Estimated average glucose) is a calculated value from HgbA1c and is hvac sales representative of the average blood glucose level in the last 2-3 month period. Performed By: #### [id number] ####[facility] LABCLIA [id number] [facility] [place] [address] [place] HbA1c (Bld) [Mass fraction] 4.9 % Normal 4.3-5.6 [facility] Comment on above: Order Comment: Speci men Type: BLOOD SPECIMENOrdering Facility: [facility] Address: [address] [place] [address] Result Comment: Amer ican Diabetes Association guidelines indicate that patients with HgbA1c in the range 5.7-6.4% are at increased risk for development of diabetes, and intervention by lifestyle modification may be beneficial. HgbA1c greater or equal to 6.5% is considered diagnostic of diabetes. Performed By: #### 5 [id number] ####[facility] LABCLIA [id number] [facility] [id number] [address] [facility] CNPNon 07-06-2023 CNPN Telephone (SPNSMN) ----- LADI BYERS ([id number]) 1985 F Date Time Provider Department 07/06/23 JOO CRUZ SPNSMN During your visit today, we recorded the following information about you: Ventura De Jesus, RN 07/06/2023 9:42 AM Signed Neuro SPINE CARE COORDINATION SURGERY SCHEDULING Patient accepts surgery date of 08-10-[address] Cruz . Planned procedure is C6-7 ACDF . PACC will be 07-23-23 with CAT and IC. Healthquest : completed Medications reviewed : Yes}. Meds to be stopped prior to surgery : NSAIDS and Vitamins and supplements. Additional pre op clearances needed : cardiac.-elevated HR Any implanted devices : No. Transplant History No na. Patient will get optimization lab work : HgbA1C. Questions answered. Patient verbalizes understanding via teach back. Additional comments : home with sons Preoperative Needs Assessment Do you live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 daily. - etonogestrel (NEXPLANON) 68 mg impl subdermal implant Inject 68 mg subcutaneously. - hydrOXYzine HCl (ATARAX) 25 mg tablet - promethazine (PHENERGAN) 25 mg tablet Take 0.5 mg by mouth. - cetirizine (ZYRTEC) 10 mg tablet Take 10 mg by mouth daily at bedtime. - omeprazole (PRILOSEC) 40 mg capsule Take 40 mg by mouth once daily. - SUMAtriptan (IMITREX) 50 mg tablet TAKE 1 TABLET BY MOUTH TWICE DAILY NEEDED AT ONSET OF HEADACHE MAY REPEAT IN 1 HOUR Problem List As Of Date 03/02/2023 Noted Resolved MIGRAINE [346] 01/25/2003 MIGRAINE NOS [346.9] 01/22/2004 HEADACHE [R51] 01/22/2004 Encounter Status:Closed by REMY PUCKETT CORINA on 03/10/23 [facility] Telephone (NIQ) ----- LADI BYERS ([id number]) 1985 F Date Time Provider Department 03/02/23 TRISTAN GUALLPA NIQ During your visit today, we recorded the following information about you: Corina Osman 03/02/2023 10:08 AM Signed Received Attending Physician Statement by fax from [employer]. Scanned to patient's chart for review. Allergies As of Date: 03/02/2023 Noted Allergy Reaction CARIPRAZINE 12/29/2021 14 - Other: See Comments IOTHALAMIC ACID 08/10/2013 14 - Other: See Comments METOCLOPRAMIDE 08/10/2013 14 - Other: See Comments PENICILLINS 12/18/2018 4 - Hives REGLAN (METOCLOPRAMIDE HCL) 12/30/2009 1 - Mental Status Change Date Reviewed: 01/15/2023 Reviewed by: Jacklyn Charles, MA - Fully Assessed Reason for Visit: Forms [913] Prescriptions as of 08/05/2023 - cyanocobalamin (VITAMIN B-12) 1,000 mcg tab Take 1 tablet by mouth every afternoon. - BLISOVI 24 FE 1 mg-20 mcg (24)/75 mg (4) Take 1 tablet by mouth every afternoon. - mupirocin (BACTROBAN) 2 % ointment Apply 0.5 inch with cotton swab (Q-tip) to each nostril in the morning and evening for 5 days prior to and including day of surgery. Patient should start on August 05, 2023. - propranolol ER (INDERAL LA) 80 mg 24 hr capsule Take 1 capsule by mouth once daily. - gabapentin (NEURONTIN) 100 mg capsule TAKE 2 CAPSULES BY MOUTH TWICE A DAY FOR 90 DAYS - gabapentin (NEURONTIN) 100 mg capsule Take 2 capsules by mouth two times a day for 90 days. - celecoxib (CELEBREX) 200 mg capsule TAKE 1 CAPSULE BY MOUTH EVERY DAY - albuterol HFA (PROVENTIL HFA) 90 mcg/actuation inhaler Inhale 1-2 Puffs as instructed every 4 hours as needed for wheezing/shortness of breath. - VYVANSE 20 mg capsule - pantoprazole DR (PROTONIX) 40 mg tablet Take 1 tablet by mouth every afternoon. - cyclobenzaprine (FLEXERIL) 5 mg tablet Take 1 tablet by mouth once daily as needed. - guaiFENesin (MUCINEX) 600 mg 12 hr tablet Take 1,200 mg by mouth twice daily as needed for cold/allergy symptoms. - dicyclomine (BENTYL) 10 mg capsule 1 capsule. - busPIRone (BUSPAR) 10 mg tablet Take 10 mg by mouth three times a day. - hydrOXYzine HCl (ATARAX) 25 mg tablet - cetirizine (ZYRTEC) 10 mg tablet Take 10 mg by mouth daily at bedtime. - SUMAtriptan (IMITREX) 50 mg tablet TAKE 1 TABLET BY MOUTH TWICE DAILY NEEDED AT ONSET OF HEADACHE MAY REPEAT IN 1 HOUR Problem List As Of Date 03/02/2023 Noted Resolved MIGRAINE [346] 01/25/2003 MIGRAINE NOS [346.9] 01/22/2004 HEADACHE [R51] 01/22/2004 Encounter Status:Closed by CORINA OSMAN on 08/05/23 [facility] 02-22-2023 [facility] Telephone ([facility]) ----- LADI BYERS ([id number]) 1985 F Date Time Provider Department 02/22/23 TRISTAN GUALLPA During your visit today, we recorded the following information about you: Jr Long 02/22/2023 2:33 PM Signed Received a fax from [facility] requesting a physician signature on a P.T. recertification dated 02/19/23. Scanned into [employer]. Genaro Vee RN 02/22/2023 2:[address] Ramu Vee RN BSN [facility] [place] Jr Long 03/01/2023 11:59 AM Signed Kodi from [facility] calling to see if the provider could sign and fax back the recertification ZACH. She can be reached at [phone] if any questions. Genaro Vee RN 03/01/2023 12:[address] Ramu Vee RN BSN [facility] [place] Genaro Vee RN 03/01/2023 2:01 PM Signed Called Kodi at [facility] Explained that Dr Guallpa and pt had a discussion that pt's PCP would order the aquatherapy Per her request I faxed office note from Dr Guallpa attn Kodi [phone] Genaro Vee RN BSN [facility] [place] Allergies As of Date: 02/22/2023 Noted Allergy Reaction CARIPRAZINE 12/29/2021 14 - Other: See Comments IOTHALAMIC ACID 08/10/2013 14 - Other: See Comments METOCLOPRAMIDE 08/10/2013 14 - Other: See Comments PENICILLINS 12/18/2018 4 - Hives REGLAN (METOCLOPRAMIDE HCL) 12/30/2009 1 - Mental Status Change Date Reviewed: 01/15/2023 Reviewed by: Jacklyn Charles MA - Fully Assessed Reason for Visit: Forms [913] Prescriptions as of 05/11/2023 - norgestimate-ethinyl estradiol (MARIA EUGENIA ORAL) Take 1 tablet by mouth once daily. - celecoxib (CELEBREX) 200 mg capsule Take 1 capsule by mouth once daily. - VYVANSE 20 mg capsule - pantoprazole DR (PROTONIX) 40 mg tablet Take 1 tablet by mouth every afternoon. - melatonin 3 mg tablet Take 3 mg by mouth. - gabapentin (NEURONTIN) 100 mg capsule Take 2 capsules by mouth twice daily for 90 days. - cyclobenzaprine (FLEXERIL) 5 mg tablet Take 1 tablet by mouth once daily as needed. - guaiFENesin (MUCINEX) 600 mg 12 hr tablet Take 1,200 mg by mouth twice daily as needed for cold/allergy symptoms. - dicyclomine (BENTYL) 10 mg capsule 1 capsule. - busPIRone (BUSPAR) 10 mg tablet Take 10 mg by mouth three times a day. - hydrOXYzine HCl (ATARAX) 25 mg tablet - cetirizine (ZYRTEC) 10 mg tablet Take 10 mg by mouth daily at bedtime. - SUMAtriptan (IMITREX) 50 mg tablet TAKE 1 TABLET BY MOUTH TWICE DAILY NEEDED AT ONSET OF HEADACHE MAY REPEAT IN 1 HOUR Problem List As Of Date 02/22/2023 Noted Resolved MIGRAINE [346] 01/25/2003 MIGRAINE NOS [346.9] 01/22/2004 HEADACHE [R51] 01/22/2004 Encounter Status:Closed by JR LONG on 05/11/23 [facility] Pelvis Non-OB Completeon 02-08-2023 US Pelvis Non-OB Complete Exam Date/Time: 02/04/2023 13:38 EDT Reason for Exam: R10.2 Report IMPRESSION: NORMAL APPEARANCE OF THE UTERUS AND RIGHT OVARY. THE LEFT OVARY WAS NOT VISUALIZED. CLINICAL HISTORY: Pelvic pain. COMPARISON: COMMENT: Transabdominal and transvaginal images were obtained. Transvaginal portion of the examination was ended early due to patient discomfort. The uterus measurements and an estimated volume are: Uterus Length: 7.2 cm Endometrium Thickness: 0.2 cm No abnormality of the echo pattern of the uterus is noted. No uterine mass is evident. The right ovary measurements and an estimated volume are: Right Ovary Length: 2.6 cm Right Ovary Width: 1.9 cm Right Ovary Height: 1.5 cm Right Ovary Volume: 3.8 cm3 Normal sonographic appearance of the right ovary. The left ovary was not visualized. No adnexal mass. No free fluid within the pelvis. Ordering Provider: Jimmie Barkley FINAL REPORT Dictated: 02/08/2023 11:58 am Yury Ho DO Signed (Electronic Signature): 02/08/2023 11:58 am Signed by: Yury Ho DO Transcribed by: DEEPTHI Technologist: EVAN Technical Comments Transabdominal Ultrasound Performed Transvaginal Ultrasound Performed Uterus Position Anteverted [facility] US Transvaginal Non-OBon US Transvaginal Non-OB Exam Date/Time: 02/04/2023 13:40 EDT Reason for Exam: Pelvic pain Report Please see ultrasound pelvis non-OB complete report. Ordering Provider: Jimmie Barkley FINAL REPORT Dictated: 02/08/2023 11:58 am Yury Ho DO Signed (Electronic Signature): 02/08/2023 11:58 am Signed by: Yury Ho DO Transcribed by: DEEPTHI Technologist: EVAN [facility] Consent for Treatmenton Consent for Treatment [id number]:12 7 [facility] Consent for Treatmenton 01-04 Consent for Treatment [id number]:12 [facility] Consent for Treatment [id number]:12 7 [facility] Physician Orderon 01-28-2023 Physician Order [id number]#1.00CD:12 7 [facility] Telephone ([facility]) ----- LADI BYERS ([id number]) 1985 F Date Time Provider Department 01/01/23 TRISTAN GUALLPAFV During your visit today, we recorded the following information about you: Janel Villagomez 01/01/2023 4:13 PM Signed Received call from SARITHA Arguello at [facility], who has concerns about new symptoms patients is having. She would like to speak to either nurse or provider regarding this. Saundra Cell [phone] ok to leave message Genaro Vee RN 01/01/2023 4:56 PM Signed Called Saundra [phone] She reports she evaluated pt last week Did cervical stretching last week and pt returned today Pt's jaw and face pain gone which is good However now she has constant dizziness NOT VBP presenting it has random peaks Also visual issues with floaters and black spots Both symptoms new for her Next appt Monday 01/08 Would like advice before she does any further therapy with pt Genaro Vee RECRUITING ADMINISTRATOR [facility] [place] Allergies As of Date: 01/01/2023 Noted Allergy Reaction CARIPRAZINE 12/29/2021 14 - Other: See Comments IOTHALAMIC ACID 08/10/2013 14 - Other: See Comments METOCLOPRAMIDE 08/10/2013 14 - Other: See Comments PENICILLINS 12/18/2018 4 - Hives REGLAN (METOCLOPRAMIDE HCL) 12/30/2009 1 - Mental Status Change Date Reviewed: 12/21/2022 Reviewed by: Evette Jeffrey MA - Fully Assessed Reason for Visit: Patient Update [1234] Prescriptions as of 01/13/2023 - guaiFENesin (MUCINEX) 600 mg 12 hr tablet Take 1,200 mg by mouth twice daily as needed for cold/allergy symptoms. - VYVANSE 30 mg capsule TAKE 1 CAPSULE BY MOUTH EVERY DAY IN THE MORNING FOR 30 DAYS - VITAMIN B-12 1,000 mcg tab Take 1,000 mcg by mouth once daily. - dicyclomine (BENTYL) 10 mg capsule 1 capsule. - busPIRone (BUSPAR) 10 mg tablet TAKE 1 TABLET BY MOUTH TWICE A DAY FOR 30 DAYS - metoprolol tartrate, short acting, (LOPRESSOR) 50 mg tablet Take 50 mg by mouth twice daily. - etonogestrel (NEXPLANON) 68 mg impl subdermal implant Inject 68 mg subcutaneously. - hydrOXYzine HCl (ATARAX) 25 mg tablet - promethazine (PHENERGAN) 25 mg tablet Take 0.5 mg by mouth. - cetirizine (ZYRTEC) 10 mg tablet Take 10 mg by mouth daily at bedtime. - omeprazole (PRILOSEC) 40 mg capsule Take 40 mg by mouth once daily. - SUMAtriptan (IMITREX) 50 mg tablet TAKE 1 TABLET BY MOUTH TWICE DAILY NEEDED AT ONSET OF HEADACHE MAY REPEAT IN 1 HOUR Problem List As Of Date 01/01/2023 Noted Resolved MIGRAINE [346] 01/25/2003 MIGRAINE NOS [346.9] 01/22/2004 HEADACHE [R51] 01/22/2004 Encounter Status:Closed by JANEL VILLAGOMEZ on 01/13/23 Normal [facility] Discharge Instructionson Discharge Instructions [id number]:1 27 Normal [facility] ED Clinical Summaryon 2022 ED Clinical Summary (Inserted Image. Natalya ble to display) [place] [id number] ED Clinical Summary Person Information Name: LADI BYERS [facility] Age: 37 Years : 1985 Sex: Female Language: Nepali PCP: TERESA PATEL CNP Marital Status: Single Visit Id: Visit Reason: Abdominal pain; Diarrhea; Vomiting; VOMITING Speciality: Acuity: 3 Enc Type: Emergency Med Service: Emergency Arrival: 12/23/2022 19:36:32 Discharge: 12/24/2022 01:12:14 LOS: 000 05:36 Checkin: 12/23/2022 19:36:32 Checkout: 12/24/2022 01:12:14 Dispo Type: Home (Routine DC) EVENTS: Event Name Event Status Request Date/Time Start Date/Time Complete Date/Time Arrive Complete 12/23/2022 19:36:32 12/23/2022 19:36:32 12/23/2022 19:36:32 Document Home Meds Request 12/23/2022 19:36:32 Triage Complete 12/23/2022 19:36:32 12/23/2022 19:46:05 12/23/2022 19:46:05 Registration Complete 12/23/2022 19:39:00 12/23/2022 19:39:00 12/23/2022 19:39:00 Reg Complete Request 12/23/2022 19:39:00 Reg Bed Request Complete 12/23/2022 19:39:00 12/23/2022 19:39:00 12/23/2022 19:39:00 Isolation Screening Request 12/23/2022 19:46:06 Pending Labs Complete 12/23/2022 19:46:56 12/23/2022 22:19:47 Lab Complete 12/23/2022 19:46:56 12/23/2022 22:19:47 Urine Collect Complete 12/23/2022 19:46:56 12/23/2022 22:19:47 Bed Assign Complete 12/23/2022 20:11:20 12/23/2022 20:11:20 12/23/2022 20:11:20 Dr Exam Complete 12/23/2022 20:11:20 12/23/2022 20:34:47 12/23/2022 20:34:47 RN Exam Complete 12/23/2022 20:11:20 12/23/2022 20:26:22 12/23/2022 20:26:22 Pending Labs Complete 12/23/2022 20:17:24 12/23/2022 20:17:24 12/23/2022 20:38:08 Lab Complete 12/23/2022 20:17:24 12/23/2022 20:17:24 12/23/2022 20:38:08 Pending Labs Complete 12/23/2022 20:19:26 12/23/2022 20:19:26 12/23/2022 20:19:26 Pending Labs Complete 12/23/2022 20:23:18 12/23/2022 20:23:18 12/23/2022 20:23:27 Lab Complete 12/23/2022 20:23:18 12/23/2022 20:23:18 12/23/2022 20:23:27 Pending Labs Complete 12/23/2022 20:30:58 12/23/2022 20:30:58 12/23/2022 20:30:58 EKG Complete 12/23/2022 20:33:09 12/23/2022 20:44:14 Registration Complete 12/23/2022 20:34:47 12/23/2022 20:43:47 12/23/2022 20:43:47 Pending Labs Cancel 12/23/2022 20:45:27 12/23/2022 20:51:17 Lab Cancel 12/23/2022 20:45:27 12/23/2022 20:51:17 Pending Labs Complete 12/23/2022 20:51:27 12/23/2022 20:51:27 12/23/2022 20:54:35 Pending Labs Complete 12/23/2022 20:51:29 12/23/2022 20:51:29 12/23/2022 21:01:21 Lab Complete 12/23/2022 20:51:29 12/23/2022 20:51:29 12/23/2022 21:01:21 Pending Labs Complete 12/23/2022 20:51:39 12/23/2022 22:42:30 Lab Complete 12/23/2022 20:51:39 12/23/2022 22:42:30 Urine Collect Complete 12/23/2022 20:51:39 12/23/2022 22:42:30 Pending Labs Complete 12/23/2022 20:54:49 12/23/2022 20:54:49 12/23/2022 20:58:04 Meds Admin Complete 12/23/2022 20:56:07 12/24/2022 00:58:07 Meds Admin Complete 12/23/2022 20:56:29 12/23/2022 22:26:48 Pending Labs Complete 12/23/2022 20:59:24 12/23/2022 20:59:24 12/23/2022 21:09:34 Meds Admin Request 12/23/2022 21:06:32 Meds Admin Complete 12/23/2022 21:28:18 12/23/2022 21:54:49 Meds Admin Complete 12/23/2022 21:29:46 12/23/2022 21:54:49 Discharge Complete 12/24/2022 00:33:30 12/24/2022 01:12:18 12/24/2022 01:12:18 Transfer Complete 12/24/2022 01:12:18 12/24/2022 01:12:18 12/24/2022 01:12:18 ADDRESS: [address] [place] [address] DR SANCHEZ [facility] [phone] PHYS DOC NOTES: MEDICAL INFORMATION: Prescriptions Given: New Medications [facility]/pharmacy #[id number], [address], [place] [id number], [phone] dicyclomine (Bentyl 10 mg Cap) 1 Capsules By Mouth 4 times a day as needed Other (see comment). For abdominal cramping. Refills: 0. potassium chloride (potassium chloride 20 mEq ER Tab) 1 Tablets By Mouth every day for 5 Days. Refills: 0. Medications to Continue Taking That Have Changed [facility]/pharmacy #[id number], [address], [place] [id number], [phone] START: promethazine (Phenergan 25 mg Supp) 1 Suppositories By rectum every 6 hours as needed Nausea/Vomiting. Refills: 0. Other Medications START: promethazine (promethazine 25 mg Tab) 1 Tablets By Mouth every 6 hours as needed as needed for nausea/vomiting. Refills: 0. Medications to Continue with No Changes Other Medications busPIRone 10 Milligram By Mouth 2 times a day. cyanocobalamin (Vitamin B12 1000 mcg Tab) 1 Tablets By Mouth every day. Refills: 0. folic acid (folic acid 1 mg Tab) 1 Tablets By Mouth every day. Refills: 0. lisdexamfetamine (Vyvanse 20 mg oral capsule) TAKE 1 CAPSULE BY MOUTH EVERY DAY IN THE MORNING FOR 30 DAYS. melatonin (melatonin 3 mg Tab) 1 Tablets By Mouth at bedtime as needed Sleep. Refills: 0. metoprolol (Metoprolol tartrate 25 mg Tab) By Mouth 2 times a day. pantoprazole (Protonix 40 mg Tab-DR) 1 Tablets By Mouth every day. Refills: 0. psyllium (Metamucil 525 mg oral capsule) 2 Capsules By Mouth every day for 90 Days. Refills: 0. sumatriptan (Imitrex 100 mg Tab) 1 Tablets By Mouth every da (more content not included)... Normal [facility] ED Note-Physicianon 12-25-19 ED Note-Physician Basic Information Time Seen: Silas Durant DO 12/23/2022 20:34 Chief Complaint pt. states she has had intermittent diarrhea x 1 year, vomiting started today. hx Cdiff and ulcers per pt. History of Present Illness 37-year-old female to the emergency department chief complaint of vomiting, abdominal pain. Patient reports she has a history of chronic diarrhea. She has cyclical vomiting. She follows with Dr. Antunez. She reports she has had multiple scopes and no one can figure out what is wrong with her. She reports that she uses marijuana near daily to help with her chronic nausea. She denies any fever, sweats, chills. Symptoms today are similar to past presentations. No dysuria, urgency, frequency. No chest pain or shortness of breath. She took a Zofran at home but believes she vomited up immediately. Review of Systems A 10 point review of systems is negative except as noted above. Medical and Surgical History: Reviewed and noted Social history: Lives at home Tobacco: Denies Physical Exam Vitals & Measurements T: 36.7 ?C(Oral) HR: 83(Peripheral) RR: 22 BP: 119/78 SpO2: 97% HT: 152 cm WT: 58 kg BMI: 25.1 VITALS: I have reviewed the triage vital signs. GENERAL: Adult female vomiting actively. Daughter at the bedside. NEURO: Alert and oriented. Moves all extremities. Face is symmetric and expressive. EYES: PERRL. No scleral icterus or conjunctival injection. No discharge. HENT: Normocephalic, atraumatic. Hearing is grossly intact. Nares grossly patent and without discharge. Mucous membranes moist. NECK: No JVD. Patient moves neck without restriction. CARDIO: Rhythm regular. Normal rate. No murmur, rub, or gallop. Pulses equal bilaterally in the upper and lower extremity. No lower extremity edema. PULM: Lungs clear to auscultation in all alas. No wheezes, rales, or rhonchi. No conversational dyspnea. No splinting, stridor, or accessory muscle use. GI/: Abdomen is soft and non-tender. Normoactive bowel sounds. EXTREMITIES: Symmetric muscle bulk. No joint swelling. No clubbing, cyanosis, or deformity. SKIN: Warm and dry. Normal turgor. No rash or lesions appreciated. PSYCH: Anxious Procedure Critical Care Procedure Note Authorized and Performed by: Silas Durant DO Total critical care time: 33 min Due to a high probability of clinically significant, life threatening deterioration, the patient required my highest level of preparedness to intervene emergently and I personally spent this critical care time directly and personally managing the patient. This critical care time included obtaining a history; examining the patient; pulse oximetry; ordering and review of studies; arranging urgent treatment with development of a management plan; evaluation of patient's response to treatment; frequent reassessment; and, discussions with other providers. This critical care time was performed to assess and manage the high probability of imminent, life-threatening deterioration that could result in multi-organ failure. It was exclusive of separately billable procedures and treating other patients and teaching time. Please see MDM section and the rest of the note for further information on patient assessment and treatment. Medical Decision Making 37-year-old female to the emergency department chief complaint of nausea, vomiting, unable to keep anything down. Vital stable, the patient is afebrile. Abdominal examination is benign. This similar to the patient's past presentations. Basic labs, lipase are ordered. EKG is ordered given her history of prolonged QTc. Fluids are ordered for the patient. Patient's QTc is significantly prolonged today as per her past presentation. We will correct her electrolytes. She is placed on monitoring. Given her severe nausea vomiting we will give a single dose of Phenergan antiemetic as piggyback over 30 minutes while she is on monitoring. Discussed risks with the patient and she is agreeable. Lab reviewed and noted. Her liver function tests have improved from previous. Normal renal function. She is mildly hypokalemic. Magnesium is within normal limits. hCG negative. EKG without evidence of ischemia, QTc is significantly prolonged again. No indication for further imaging of the abdomen today. Patient observed on telemetry monitoring. She was given fluid rehydration. She had no significant increase in her QTc with the medication Phenergan. Patient reevaluated several times at the bedside. Her symptoms improved. She is no longer writhing on the cart. She is no longer vomiting. She was able to tolerate a p.o. challenge. Findings discussed with the patient. She refused the second bag of potassium that was ordered. She would like discharge home. I believe this is reasonable at this point. We discussed risks of antiemetics given her prolonged QTc. She will use Phenergan only when absolutely needed. She reports that she has seen a security architect for this in the past. My recommendation was she discussed with them debora (more content not included)... Normal [facility] Comment on above: Result Comment: Elec tronically Signed By: Silas Durant DO\.br\Date and Time Signed: 12/24/22 02:36 EDT ED Patient Education Noteon 12-24-2022 ED Patient Education Note Gastroenterology Cyclic Vomiting Syndrome, Adult Cyclic vomiting syndrome (CVS) is a condition that causes episodes of severe nausea and vomiting. It can last for hours or even days. Attacks may occur several times a month or several times a year. Between episodes of CVS, you may be otherwise healthy. What are the causes? The cause of this condition is not known. Although many of the episodes can happen for no obvious reason, you may have specific CVS triggers. Episodes may be triggered by: ? An infection, especially colds and the flu. ? Emotional stress, including excitement or anxiety about finances, relationships, or moving. ? Certain foods or beverages, such as chocolate, cheese, alcohol, and food additives. ? Food allergies. ? Motion sickness. ? Eating a large meal before bed. ? Being very tired. ? Being overheated. ? Menstruation. ? Long-term cannabis use. What increases the risk? You are more likely to develop this condition if: ? You get migraine headaches. ? You have a family history of CVS or migraine headaches. What are the signs or symptoms? Symptoms tend to happen at the same time of day, and each episode tends to last about the same amount of time. Symptoms commonly start at night or when you wake up. Many people have warning signs (prodrome) before an episode, which may include slight nausea, sweating, and pale skin (pallor). The most common symptoms of a CVS attack include: ? Severe vomiting. Vomiting may happen every 5?15 minutes. ? Severe nausea. ? Gagging (retching). Other symptoms may include: ? Headache. ? Dizziness. ? Sensitivity to light or sound. ? Abdominal pain. This can be severe. ? Loose stools or diarrhea. ? Weakness or exhaustion. ? Dehydration. This can cause: ? Thirst. ? Dry mouth. ? Decreased urination. ? Fatigue. How is this diagnosed? This condition may be diagnosed based on your symptoms, medical history, and family history of CVS or migraine. Your health care provider will ask whether you have had: ? Episodes of severe nausea and vomiting that have happened a total of 5 or more times, or 3 or more times in the past 6 months. ? Episodes that last for 1 hour or more, and occur 1 week apart or further apart. ? Episodes that are similar each time. ? Normal health between episodes. Your health care provider will also do a physical exam. To rule out other conditions, you may have tests, such as: ? Blood tests. ? Urine tests. ? Imaging tests. How is this treated? There is no cure for this condition, but treatment can help manage or prevent CVS episodes. Work with your health care provider to find the best treatment for you. Treatment may include: ? Avoiding stress and CVS triggers. ? Eating smaller, more frequent meals. ? Taking medicines, such as: ? Anti-nausea medicines. ? Antacids. ? Antidepressants. ? Antihistamines. ? Medicines for migraines. ? Zqbh-toi-qsnoxri pain medicine. ? Over-the counter diet supplements. Severe nausea and vomiting may require you to stay at the hospital. You may need IV fluids to prevent or treat dehydration. Follow these instructions at home: During an episode ? Take zjsy-fbo-tnxkquq and prescription medicines only as told by your health care provider. ? Stay in bed and rest in a dark, quiet room. After an episode ? Drink an oral rehydration solution (ORS), if directed by your health care provider. This is a drink that helps you replace fluids and the salts and minerals in your blood (electrolytes). It can be found at pharmacies and retail stores. ? Drink small amounts of clear fluids slowly and gradually add more. ? Drink clear fluids such as water or fruit juice that has water added (is diluted). You may also eat low-calorie popsicles. ? Avoid drinking fluids that contain a lot of sugar or caffeine, such as sports drinks and soda. ? Eat soft foods in small amounts every 3?4 hours. Eat your regular diet, but avoid spicy or fatty foods, such as tajik fries and pizza. General instructions ? Monitor your condition for any changes. ? Keep track of your attacks and symptoms, and pay attention to any triggers. Avoid those triggers when you can. ? If you use cannabis, stop using it right away. Ending cannabis use can reduce or even stop your cyclic vomiting syndrome. ? Keep all follow-up visits. This is important. Where to find more information ? Cyclic Vomiting Syndrome Association: cvsaonline.org Contact a health care provider if: ? Your condition gets worse. ? You cannot drink fluids without vomiting. ? You have pain and trouble swallowing after an episode. Get help right away if: ? You have blood in your vomit. ? Your vomit looks like coffee grounds. ? You have stools that are bloody or black, or stools that look like tar. ? You have signs of dehydration, such as: ? Sunken eyes. ? Not making tears while (more content not included)... Normal [facility] ED Patient Summaryon 023 ED Patient Summary (Inserted Image. Natalya ble to display) [address] [address] Patient Discharge Instructions Person Information Name: LADI BYERS Age: 37 Years Arrival Date: 12/23/2022 19:36:32 Discharge Diagnosis: Cyclical vomiting; Marijuana use; Prolonged QT interval Primary Care Physician: TERESA PATEL CNP Provider Information Primary Provider: Silas Durant DO Advanced Staff Interpreter:None The exam and treatment you received in the Emergency Department were for an urgent problem and are not intended as complete care. It is important that you follow up with a doctor, nurse practitioner, or physician?s nursing assistants teacher for ongoing care. If your symptoms become worse or you do not improve as expected and you are unable to reach your usual health care provider, you should return to the Emergency Department. We are available 24 hours a day. LADI BYERS has been given the following list of patient education materials, prescriptions and follow-up instructions: Follow-up Instructions: With: Address: When: Vito ROBERTSON [address] [place] [address]. [address] [place], [place] [phone] [employer] (1) In 3 days 12/27/2022 Comments: Call to discuss your ongoing cyclic vomiting. Abstain from marijuana for 6 months to determine if this may be the cause. Take antinausea meds only as prescribed. There is increased risk of these medications for you given your prolonged QTc. Only take 1 antiemetic at this time. Follow-up with your security architect to discuss your QTc prolongation further. With: Address: When: TERESA PATEL [address] [place] [phone] [employer] (1) In 3 days 12/27/2022 Comments: Call the office of your primary care doctor to arrange for follow-up within the above-stated timeframe. Follow-up with your primary care doctor about this ED visit. You should review your labs, imaging, and diagnoses from this ED visit with your primary care physician. There are occasionally non-emergent findings that require additional follow-up after your ED visit. If you were prescribed medications you should discuss possible side-effects and drug interactions with your pharmacist. Call 911 or go to the nearest Emergency Department if you develop any new or worsening symptoms. Seek immediate medical attention if you develop: worsening abdominal pain, new or worsening nausea, new or worsening vomiting, new or worsening diarrhea, chest pain, shortness of breath, pain with urination, problems urinating, fever, chills, weakness, or any new or worsening symptoms. In the event that this physician does not participate in your insurance network, please consult with your insurance company to find a nearby participating provider. Patient Education Materials: Cyclic Vomiting Syndrome, Adult; Hypokalemia A MESSAGE TO ALL PATIENTS REGARDING OPIOIDS PRESCRIPTION OPIOIDS: WHAT YOU NEED TO KNOW Prescription opioids can be used to help relieve zorvvhbt-rm-wjczpt pain and are often prescribed following a surgery or injury, or for certain health conditions. These medications can be an important part of the treatment but also come with serious risks. It is important to work with your healthcare provider to make sure you are getting the safest, most effective care. WHAT ARE THE RISKS AND SIDE EFFECTS OF OPIOID USE? Prescription opioids carry serious risks of addiction and overdose, especially with prolonged use. An opioid overdose, often marked by slowed breathing, can cause sudden . The use of prescription opioids can have a number of side effects as well, even when taken as directed: ? Tolerance?meaning you might need to take more of the medication for the same pain relief ? Physical dependence?meaning you have symptoms of withdrawal when a medication is stopped ? Increased sensitivity to pain ? Constipation ? Nausea, vomiting, and dry mouth ? Sleepiness and dizziness ? Confusion ? Depression ? Low levels of testosterone that can result in lower sex drive, energy, and strength ? Itching and sweating RISKS ARE GREATER WITH: ? History of drug misuse, substance use disorder, or overdose ? Mental health conditions (such as depression or anxiety) ? Sleep apnea ? Older age (65 years and older) ? Avoid alcohol while taking prescription opioids. Also, unless specifically advised by your health care provider, medications to avoid include: ? Benzodiazepines (such as Xanax or Valium) ? Muscle relaxants (such as Soma or Flexeril) ? Hypnotics (such as Ambien or Lunesta) ? Other prescription opioids KNOW YOUR OPTIONS Talk to your health care provider about ways to manage your pain that don?t involve prescription opioids. Some of these options may actually work better and have fewer risks and side effects. Options may include: ? Pain relievers such as acetaminophen, ibuprofen, and naproxen ? Some (more content not included)... Normal [facility] Monitor Recordon 12-24-2022 Monitor Record [id number] Normal [facility] U Drug Screenon 12-24-2022 Tetrahydrocannabinol Screen method >50 ng/mL Ql (U) Positive Abnormal Negative [facility] Comment on above: Result Comment: Nega tive Cutoff: <50 ng/mL Performed By: #### 2 [id number] ####[facility] [address] [place] [address] Amphetamines Screen method >1000 ng/mL Ql (U) Negative Normal Negative [facility] Comment on above: Result Comment: Nega tive Cutoff: <1000 ng/mL Performed By: #### 2 [id number] ####[facility] [address] [place] [address] Barbiturates Screen Ql (U) Negative Normal Negative [facility] Comment on above: Result Comment: Nega tive Cutoff: <200 ng/mL Performed By: #### 2 [id number] ####[facility] [address] [place] [address] Benzodiazepines Ql (U) Negative Normal Negative [facility] Comment on above: Result Comment: Nega tive Cutoff: <200 ng/mL Performed By: #### 2 [id number] ####[facility] [address] [facility] [address] Cocaine Ql (U) Negative Normal Negative [facility] Comment on above: Result Comment: Nega tive Cutoff: <300 ng/mL Performed By: #### 2 [id number] ####[facility] [address] [place] [address] Opiates Screen Ql (U) Negative Normal Negative [facility] Comment on above: Result Comment: Nega tive Cutoff: <300 ng/mL Performed By: #### 2 [id number] ####[address] [place] [address] Phencyclidine Screen method >25 ng/mL Ql (U) Negative Normal Negative [facility] Comment on above: Result Comment: Nega tive Cutoff: <25 ng/mL These drug screen results are to be used for medical (i.e., treatment) purposes only. Unconfirmed drug screening results must not be used for non-medical purposes (e.g., employment testing, legal testing). Performed By: #### 2 [id number] ####[facility] [address] [place] [address] UA With Cult Reflexon 2022 Bilirubin Ql (U) Negative Normal Negative [facility] Comment on above: Performed By: #### 1 [id number] ####[facility] [address] [place] [address] Clarity (U) CLEAR Normal Clear [facility] Comment on above: Performed By: #### 1 [id number] ####[facility] [address] [facility] [place] [facility] [place] [address] Color (U) YELLOW Normal Yellow [facility] Comment on above: Performed By: #### 1 [id number] ####[facility] [address] [place] [address] Crystals LM Ql (Urine sed) Present Normal [facility] Comment on above: Performed By: #### 1 [id number] ####[address] [address] Epithelial cells.squamous LM.HPF (Urine sed) [#/Area] 0-2 Normal 0-2 [facility] Comment on above: Performed By: #### 1 [id number] ####[facility] [address] [place] [address] Glucose Test strip (U) [Mass/Vol] Negative Normal Negative [facility] Comment on above: Performed By: #### 1 [id number] ####[address] [address] Hemoglobin Ql (U) Negative Normal Negative [facility] Comment on above: Performed By: #### 1 [id number] ####[address] [address] Ketones (U) [Mass/Vol] 1+ Abnormal Negative [facility] Comment on above: Performed By: #### 1 [id number] ####[address] [address] [place].plasma/[place] .RBC (Bld) [Mass ratio] 0-3 Normal 0-3 [facility] Comment on above: Performed By: #### 1 [id number] ####[address] [address] Nitrite Ql (U) Negative Normal Negative [facility] Comment on above: Performed By: #### 1 [id number] ####[address] [address] pH (U) 8.5 [pH] Invalid Interpretation Code 5.0-9.0 [facility] Comment on above: Performed By: #### 1 [id number] ####[facility] [address] [place] [address] Protein (U) [Mass/Vol] 1+ Abnormal Negative [facility] Comment on above: Performed By: #### 1 [id number] ####[address] [address] Specific gravity (U) [Rel density] 1.010 Invalid Interpretation Code 1.005-1.030 [facility] Comment on above: Performed By: #### 1 [id number] ####[address] [address] Type of Urine collection method Clean Catch Normal [facility] Comment on above: Performed By: #### 1 [id number] ####[address] [address] Urobilinogen Qn (U) 0.2 {Patty'U}/dL Normal 0.0-1.0 [facility] Comment on above: Performed By: #### 1 [id number] ####[address] [address] WBC Auto Ql (U) Negative Normal Negative [facility] Comment on above: Performed By: #### 1 [id number] ####[address] [address] WBC LM.HPF (Urine sed) [#/Area] 0-5 Normal 0-5 [facility] Comment on above: Performed By: #### 1 [id number] ####[address] [address] Auto Diffon 12-23-2022 Basophils/100 WBC (Bld) 1.0 % Normal 0.0-2.0 [facility] Comment on above: Order Comment: Order Added by Discern Expert. Performed By: #### 2 740848, [id number], [id number], 4419242, 2874749, 7886793, 3941960, 8969187 ####[address] [address] Basophils/Leukocytes Auto (Bld) [Pure # fraction] 0.1 E9/L Normal 0.0-0.2 [facility] Comment on above: Order Comment: Order Added by Discern Expert. Performed By: #### 2 472154, [id number], [id number], 2550802, 7855788, 1495559, 1820255, 3848449 ####[address] [place] [address] Eosinophils/100 WBC (Bld) 0.2 % Normal 0.0-8.0 [facility] Comment on above: Order Comment: Order Added by Discern Expert. Performed By: #### 2 454881, [id number], 11729799, 0178648, 6252633, 4275078, 3720335, 8546976 ####[address] [address] Eosinophils/Leukocytes Auto (Bld) [Pure # fraction] 0.0 E9/L Normal 0.0-0.5 [facility] Comment on above: Order Comment: Order Added by Discern Expert. Performed By: #### 2 994549, [id number], 40574696, 2477252, 3366317, 3977168, 1578714, 8711621 ####[address] [address] Lymphocytes/100 WBC (Bld) 20.2 % Normal 14.0-50.0 [facility] Comment on above: Order Comment: Order Added by Discern Expert. Performed By: #### 2 839347, [id number], [id number], 8677057, 9124470, 0172753, 3787637, 7469642 ####[address] [address] Lymphocytes/Leukocytes Auto (Bld) [Pure # fraction] 2.0 E9/L Normal 1.0-4.0 [facility] Comment on above: Order Comment: Order Added by Discern Expert. Performed By: #### 2 396702, [id number], 24048916, 4265003, 0417988, 4019966, 6296754, 3747988 ####[address] [address] Monocytes/100 WBC (Bld) 4.2 % Normal 4.0-14.0 [facility] Comment on above: Order Comment: Order Added by Discern Expert. Performed By: #### 2 167377, [id number], 51575896, 3395794, 5270138, 5715577, 2546943, 8222977 ####[facility] [address] [place] [address] Monocytes/Leukocytes Auto (Bld) [Pure # fraction] 0.4 E9/L Normal 0.2-1.0 [facility] Comment on above: Order Comment: Order Added by Discern Expert. Performed By: #### 2 002015, [id number], 69460185, 2726471, 0687416, 3979824, 7330445, 1514629 ####[facility] [address] [place] [address] Neutrophils/100 WBC (Bld) 74.4 % Normal 36.0-75.0 [facility] Comment on above: Order Comment: Order Added by Discern Expert. Performed By: #### 2 745614, 15424712, 78746493, 7830330, 3465298, 7411125, 0543840, 2231675 ####[facility] [address] [place] [address] Neutrophils/Leukocytes Auto (Bld) [Pure # fraction] 7.3 E9/L Normal 2.0-7.5 [facility] Comment on above: Order Comment: Order Added by Ke Expert. Performed By: #### 2 141784, 39715943, 74134616, 5064048, 7159914, 1301501, 3825920, 9203103 ####[facility] [address] [place] [address] B hCG Qualon 12-23-2022 Beta hCG Ql Negative Normal [facility] Comment on above: Performed By: #### 2 406076, 82432474, 88361570, 6434551, 5968073, 9125560, 9923446, 1425153 ####[facility] [address] [place] [address] BMPon 12-23-2022 Creatinine [Mass/Vol] 0.6 mg/dL Normal 0.5-1.3 [facility] Comment on above: Performed By: #### 2 073992, 11832545, 82050459, 7054894, 1617733, 3562219, 7493690, 8331089 ####[facility] [address] [place] [address] Urea nitrogen [Mass/Vol] 7 mg/dL Normal 5-21 [facility] Comment on above: Performed By: #### 2 796198, 76040708, 28689572, 8199106, 0984942, 1156049, 4967327, 9558029 ####[facility] [address] [place] [address] Urea nitrogen/Creatinine [Mass ratio] 12 No Units Normal 10-20 [facility] Comment on above: Performed By: #### 2 684683, 26521571, 24665885, 9619537, 3925760, 9635711, 9227109, 8822456 ####[facility] [address] [place] [address] Anion gap [Moles/Vol] 14 mmol/L Normal 6-16 [facility] Comment on above: Performed By: #### 2 081466, 63828067, 43953670, 6090675, 8494672, 6181154, 0745953, 7862722 ####[facility] [address] [place] [address] Calcium [Mass/Vol] 9.5 mg/dL Normal 8.9-11.1 [facility] Comment on above: Performed By: #### 2 086998, 20530499, 97237518, 9131228, 4238202, 8784021, 0340206, 4900049 ####[facility] [address] [place] [address] Chloride [Moles/Vol] 102 mmol/L Normal 101-111 [facility] Comment on above: Performed By: #### 2 362876, 65174631, 54538594, 9190240, 1049152, 8902196, 1491407, 9742362 ####[facility] [address] [place] [address] CO2 [Moles/Vol] 28 mmol/L Normal 21-31 [facility] Comment on above: Performed By: #### 2 400000, 78468724, 51571218, 6151600, 8372362, 1475427, 1007163, 7854936 ####[facility] [address] [place] [address] Glucose [Mass/Vol] 105 mg/dL Normal 55-199 [facility] Comment on above: Result Comment: If t his glucose result represents a fasting glucose, interpretation should refer to the following reference range: 55-99 mg/dL Performed By: #### 2 821574, 86651664, 94095743, 9392442, 4408760, 5951981, 2794030, 9231189 ####[facility] [address] [place] [address] Potassium [Moles/Vol] 3.1 mmol/L Low 3.5-5.3 [facility] Comment on above: Performed By: #### 2 835765, 38885245, 62662648, 2412807, 1836072, 6779436, 5323493, 4755792 ####[facility] [address] [place] [address] Sodium [Moles/Vol] 141 mmol/L Normal 135-145 [facility] Comment on above: Performed By: #### 2 893078, 24736098, 60558752, 8280247, 4043674, 6795840, 3432795, 2393287 ####[facility] [address] [place] [address] CBC w/ Auto Diffon 3 Erythrocyte distribution width (RBC) [Ratio] 13.6 % Normal 10.9-14.2 [facility] Comment on above: Performed By: #### 2 177262, 95663260, 19392883, 6065819, 1200411, 3252023, 8623676, 2636273 ####[facility] [address] [place] [address] Hematocrit (Bld) [Volume fraction] 47.1 % High 34.0-46.0 [facility] Comment on above: Performed By: #### 2 608475, 03823104, 11702781, 1490438, 4513846, 1066654, 8229642, 6087687 ####[address] [address] Hemoglobin (Bld) [Mass/Vol] 16.6 g/dL High 12.0-16.0 [facility] Comment on above: Performed By: #### 2 884472, 21676641, 44252380, 1306287, 3472192, 6976124, 3301212, 0197666 ####[address] [address] MCH (RBC) [Entitic mass] 34.9 pg High 27.0-34.0 [facility] Comment on above: Performed By: #### 2 796518, 64426543, 51521861, 2180994, 6431630, 2959674, 2274988, 7175708 ####[facility] [address] [place] [address] MCHC (RBC) [Mass/Vol] 35.2 g/dL Normal 31.4-36.0 [facility] Comment on above: Performed By: #### 2 255709, 42048553, 66206294, 8092980, 9309472, 4302285, 7604432, 4385534 ####[address] [address] MCV (RBC) [Entitic vol] 99.1 fL Normal 80.0-100.0 [facility] Comment on above: Performed By: #### 2 081324, 28552132, 27240161, 6756054, 1610698, 0437334, 0332638, 7740976 ####[address] [address] Platelet mean volume (Bld) [Entitic vol] 7.7 fL Normal 6.4-10.8 [facility] Comment on above: Performed By: #### 2 898236, 89692031, 11574086, 4894380, 3298150, 8754071, 8786010, 3708840 ####[facility] [address] [place] [address] Platelets (Bld) [#/Vol] 294.0 E9/L Normal 150.0-500.0 [facility] Comment on above: Performed By: #### 2 809136, 64432720, 74607968, 2178371, 9899298, 8037628, 9141809, 0066832 ####[facility] [address] [place] [address] RBC (Bld) [#/Vol] 4.8 E12/L Normal 4.3-5.9 [facility] Comment on above: Performed By: #### 2 389810, 02468956, 83931979, 6843923, 0110972, 9574323, 4464122, 5081802 ####[facility] [address] [place] [address] WBC corrected for nucl RBC Auto (Bld) [#/Vol] 9.8 E9/L Normal 4.0-11.0 [facility] Comment on above: Performed By: #### 2 946469, 17452822, 82421325, 8427611, 8049455, 5575446, 9255737, 5036301 ####[address] [address] CHEMISTRYOrdered By: SYSTEM SYSTEM on 12-23-2022 Amphetamines Screen method >1000 ng/mL Ql (U) Negative (12/23/22 9:58 PM) Normal Negative [facility] Barbiturates Screen Ql (U) Negative (12/23/22 9:58 PM) Normal Negative [facility] Benzodiazepines Ql (U) Negative (12/23/22 9:58 PM) Normal Negative [facility] Cocaine Ql (U) Negative (12/23/22 9:58 PM) Normal Negative [facility] Opiates Screen Ql (U) Negative (12/23/22 9:58 PM) Normal Negative [facility] Phencyclidine Screen method >25 ng/mL Ql (U) Negative (12/23/22 9:58 PM) Normal Negative [facility] Tetrahydrocannabinol Screen method >50 ng/mL Ql (U) Positive *ABN* (12/23/22 9:58 PM) Invalid Interpretation Code Negative [facility] Albumin [Mass/Vol] 4.6 g/dL Normal 3.3 - 5.0 gm/dL [facility] Albumin/Globulin [Mass ratio] 1.4 {ratio} Normal 1.1 - 2.2 [facility] ALP [Catalytic activity/Vol] 78 [iU]/d Normal 21 - 98 Int._Unit/L [facility] ALT No additional P-5'-P [Catalytic activity/Vol] 41 [iU]/d Normal 6 - 46 Int._Unit/L [facility] Anion gap [Moles/Vol] 14 mmol/L Normal 6 - 16 mEq/L [facility] AST [Catalytic activity/Vol] 59 [iU]/d High 5 - 43 Int._Unit/L [facility] Bilirubin [Mass/Vol] 0.9 mg/dL Normal 0.0 - 1 .1 mg/dL [facility] Bilirubin.direct [Mass/Vol] 0.1 mg/dL Normal 0.1 - 0.4 mg/dL [facility] Bilirubin.indirect [Mass or moles/Vol] 0.8 mg/dL Normal 0.1 - 0.9 mg/dL [facility] Calcium [Mass/Vol] 9.5 mg/dL Normal 8.9 - 11. 1 mg/dL [facility] Chloride [Moles/Vol] 102 mmol/L Normal 101 - 1 11 mmol/L [facility] CO2 [Moles/Vol] 28 mmol/L Normal 21 - 31 mmol/L [facility] Creatinine [Mass/Vol] 0.6 mg/dL Normal 0.5 - 1.3 mg/dL [facility] GFR/1.73 sq M.predicted among non-blacks MDRD (S/P/Bld) [Vol rate/Area] 118 mL/min/1.73 m2 Normal >=59mL/min/ 1.73 m2 [facility] Chem S Globulin (S) [Mass/Vol] 3.2 g/dL Normal 1.4 - 4.0 gm/dL [facility] Glucose [Mass/Vol] 105 mg/dL Normal 55 - 199 mg/dL [facility] Lipase [Catalytic activity/Vol] 32 U/L Normal 13 - 58 unit/L [facility] Magnesium [Mass/Vol] 2.2 mg/dL Normal 1.3 - 2 .4 mg/dL [facility] Potassium [Moles/Vol] 3.1 mmol/L Low 3.5 - 5.3 mmol/L [facility] Protein [Mass/Vol] 7.8 g/dL Normal 6.0 - 7.8 gm/dL [facility] Remisol Sodium [Moles/Vol] 141 mmol/L Normal 135 - 145 mmol/L [facility] Remisol Urea nitrogen [Mass/Vol] 7 mg/dL Normal 5 - 21 mg/dL [facility] Remisol Urea nitrogen/Creatinine [Mass ratio] 12 mg/mg Normal 10 - 20 [facility] Consent for Treatmenton 12-04 Consent for Treatment [id number] Normal [facility] ED Note-Nursingon 12-23-2022 ED Note-Nursing pt restless on ED ca rt. pt uncooperative with this RN to hook patient to IV pump with medications per provider orders. pt states Why is it taking so long to give me meds? . as this RN is attempting to administer medications, pt requesting to use restroom. pt denies needs of assistance and is asking for meds while pt in restroom. pt instructed she will receive her medications once she is back on ED cart and on credit card associate. Normal [facility] HEMATOLOGYOrdered By: SYSTEM SYSTEM on 12-23-2022 Basophils/100 WBC (Bld) 1.0 % Normal 0.0 - 2.0 % [facility] HemeAutoSS Basophils/Leukocytes Auto (Bld) [Pure # fraction] 0.1 E9/L Normal 0.0 - 0.2 E9/L [facility]eAutoSS Eosinophils/100 WBC (Bld) 0.2 % Normal 0.0 - 8.0 % [facility] HemeAutoSS Eosinophils/Leukocytes Auto (Bld) [Pure # fraction] 0.0 E9/L Normal 0.0 - 0.5 E9/L [facility] HemeAutoSS Lymphocytes/100 WBC (Bld) 20.2 % Normal 14.0 - 50.0 % [facility] HemeAutoSS Lymphocytes/Leukocytes Auto (Bld) [Pure # fraction] 2.0 E9/L Normal 1.0 - 4.0 E9/L [facility] HemeAutoSS Monocytes/100 WBC (Bld) 4.2 % Normal 4.0 - 14.0 % [facility] HemeAutoSS Monocytes/Leukocytes Auto (Bld) [Pure # fraction] 0.4 E9/L Normal 0.2 - 1.0 E9/L [facility]eAutoSS Neutrophils/100 WBC (Bld) 74.4 % Normal 36.0 - 75.0 % [facility] HemeAutoSS Neutrophils/Leukocytes Auto (Bld) [Pure # fraction] 7.3 E9/L Normal 2.0 - 7.5 E9/L [facility] HemeAutoSS HEMATOLOGYOrdered By: Archie Hackett on 12-23-2022 Erythrocyte distribution width (RBC) [Ratio] 13.6 % Normal 10.9 - 14.2 % [facility]eAutoSS Hematocrit (Bld) [Volume fraction] 47.1 % High 34.0 - 46.0 % [facility] HemeAutoSS Hemoglobin (Bld) [Mass/Vol] 16.6 g/dL High 12.0 - 16.0 gm/dL [facility] HemeAutoSS MCH (RBC) [Entitic mass] 34.9 pg High 27.0 - 34.0 pg [facility] HemeAutoSS MCHC (RBC) [Mass/Vol] 35.2 g/dL Normal 31.4 - 36.0 gm/dL [facility] HemeAutoSS MCV (RBC) [Entitic vol] 99.1 fL Normal 80.0 - 100.0 fL [facility] HemeAutoSS Platelet mean volume (Bld) [Entitic vol] 7.7 fL Normal 6.4 - 10.8 fL [facility] HemeAutoSS Platelets (Bld) [#/Vol] 294.0 E9/L Normal 150.0 - 500.0 E9/L [facility] HemeAutoSS RBC (Bld) [#/Vol] 4.8 E12/L Normal 4.3 - 5.9 E12/L [facility] HemeAutoSS WBC corrected for nucl RBC Auto (Bld) [#/Vol] 9.8 E9/L Normal 4.0 - 11.0 E9/L [facility] HemeAutoSS Hep Func Panelon 12-23-2022 Albumin [Mass/Vol] 4.6 g/dL Normal 3.3-5.0 [facility] Comment on above: Performed By: #### 2 291651, 88868849, 96416930, 5302531, 8100536, 6334182, 9031426, 5738314 ####[facility] [address] [place] [address] Albumin/Globulin (S) [Mass conc ratio] 1.4 Normal 1.1-2.2 [facility] Comment on above: Performed By: #### 2 056448, 71627865, 65232393, 1630798, 2810673, 2395750, 2183434, 0061776 ####[facility] [address] [place] [address] ALP [Catalytic activity/Vol] 78 Int._Unit/L Normal 21-98 [facility] Comment on above: Performed By: #### 2 367371, 19701173, 44135585, 9486138, 0145440, 0789281, 1411865, 2829433 ####[facility] [address] [place] [address] ALT No additional P-5'-P [Catalytic activity/Vol] 41 Int._Unit/L Normal 6-46 [facility] Comment on above: Performed By: #### 2 094498, 12047459, 80459324, 7042462, 7381419, 8023551, 0611895, 7655205 ####[facility] [address] [place] [address] AST [Catalytic activity/Vol] 59 Int._Unit/L High 5-43 [facility] Comment on above: Performed By: #### 2 587745, 39801222, 77094665, 1894054, 8611874, 5182398, 9479200, 9717328 ####[facility] [address] [place] [address] Bilirubin [Mass/Vol] 0.9 mg/dL Normal 0.0-1.1 [facility] Comment on above: Performed By: #### 2 177227, 95196096, 93167098, 2112648, 7296202, 3414792, 6427168, 1826940 ####[address] [place] [address] Bilirubin.direct [Mass/Vol] 0.1 mg/dL Normal 0.1-0.4 [facility] Comment on above: Performed By: #### 2 643168, 04452499, 66672967, 6393420, 9491815, 0105154, 8878155, 7060628 ####[address] [address] Bilirubin.indirect [Mass or moles/Vol] 0.8 mg/dL Normal 0.1-0.9 [facility] Comment on above: Performed By: #### 2 861948, 50737459, 00710528, 6302342, 7031066, 7663601, 5535600, 4644368 ####[address] [address] Globulin (S) [Mass/Vol] 3.2 g/dL Normal 1.4-4.0 [facility] Comment on above: Performed By: #### 2 914900, 86733014, 61722974, 7940168, 9481689, 1071857, 4215919, 4333356 ####[address] [place] [address] Protein [Mass/Vol] 7.8 g/dL Normal 6.0-7.8 [facility] Comment on above: Performed By: #### 2 268907, 41626291, 62746461, 3638320, 0768889, 4493430, 5460592, 4959563 ####[address] [address] Lipase Levelon 12-23-2022 Lipase [Catalytic activity/Vol] 32 U/L Normal 13-58 [facility] Comment on above: Performed By: #### 2 235959, 88888687, 17174043, 9794937, 1316171, 7942984, 4203414, 7173146 ####[facility] [address] [place] [address] Magnesiumon 12-23-2022 Magnesium [Mass/Vol] 2.2 mg/dL Normal 1.3-2.4 [facility] Comment on above: Performed By: #### 2 553536, 23030097, 16681474, 1673037, 2057834, 3106647, 5022380, 1011874 ####[facility] [address] [place] [address] SEROLOGYOrdered By: Micky sebastian on 12-23-2022 Beta hCG Ql Negative (12/23/22 8:13 PM) Normal [facility]ero URINALYSISOrdered By: Micky isaacs on 12-23-2022 Bilirubin Ql (U) Negative (12/23/22 9:58 PM) Normal Negative [facility] UA Auto SS Clarity (U) Clear (12/23/22 9:58 PM) Normal Clear [facility] UA Auto SS Color (U) Yellow (12/23/22 9:58 PM) Normal Yellow [facility] UA Auto SS Crystals LM Ql (Urine sed) Present (12/23/22 9:58 PM) Normal [facility] UA Auto SS Epithelial cells.squamous LM.HPF (Urine sed) [#/Area] 0-2 /HPF Normal 0-2/HPF [facility] UA Auto SS Glucose Test strip (U) [Mass/Vol] Negative (12/23/22 9:58 PM) Normal Negative [facility] UA Auto SS Hemoglobin Ql (U) Negative (12/23/22 9:58 PM) Normal Negative [facility] UA Auto SS Ketones (U) [Mass/Vol] 1+ *ABN* (12/23/22 9:58 PM) Invalid Interpretation Code Negative [facility] UA Auto SS [place].plasma/[place] .RBC (Bld) [Mass ratio] 0-3 /HPF Normal 0-3/HPF [facility] UA Auto SS Nitrite Ql (U) Negative (12/23/22 9:58 PM) Normal Negative [facility] UA Auto SS pH (U) 8.5 *NA* (12/23/22 9:58 PM) Invalid Interpretation Code 5.0 - 9.0 [facility] UA Auto SS Protein (U) [Mass/Vol] 1+ *ABN* (12/23/22 9:58 PM) Invalid Interpretation Code Negative [facility] UA Auto SS Specific gravity (U) [Rel density] 1.010 *NA* (12/23/22 9:58 PM) Invalid Interpretation Code 1.005 - 1.030 [facility] Auto SS UA Spec Desc Clean Catch (12/23/22 9:58 PM) Normal [facility] Auto SS Urobilinogen Qn (U) 0.6691777 {Patty'U}/dL Normal 0.0 - 1.0 EU/dL [facility] UA Auto SS WBC Auto Ql (U) Negative (12/23/22 9:58 PM) Normal Negative [facility] UA Auto SS WBC LM.HPF (Urine sed) [#/Area] 0-5 /HPF Normal 0-5/HPF [facility] UA Auto SS eGFRon 12-23-2022 GFR/1.73 sq M.predicted among non-blacks MDRD (S/P/Bld) [Vol rate/Area] 118 mL/min/1.73 m2 Normal >=59 [facility] Comment on above: Order Comment: Order added by Discern Expert. Result Comment: [employer] Operator lanette kidney disease could be indicated at eGFR's of less than 60 mL/min/1.73m2. Kidney failure is indicated at less than 15 mL/min/1.73m2. Performed By: #### 2 839034, 38107878, 90099062, 8977094, 6565939, 5818230, 6248562, 0978299 ####[facility] [address] [place] [address] CNOVon 12-21-2022 CNOV Office Visit ([facility] ) ----- LADI BYERS ([id number]) 1985 F Date Time Provider Department 12/21/22 8:00 AM TRISTAN GUALLPA During your visit today, we recorded the following information about you: Pulse Blood pressure Weight Height 93/minute 127/82 57.2 kg 1.524 m Tristan Guallpa MD 12/22/2022 6:38 PM Signed Reason for Evaluation: Consultation requested by Teresa Patel for an opinion regarding left facial droop. My final recommendations will be communicated back to the requesting physician by way of shared medical record or letter to requesting physician via US mail. Impression: This is Ms. Ladi Byers, a 37 year old female who presents to the [facility] clinic with the chief complaint of pain. Suspect temporomandibular disorder for multiple reasons. Pain near the ear. Ear feels full. Ear hurts. Head and neck hurt. Cracking and popping with jaw movement. Jaw seems to deviate to the affected side during our interaction today. Impression is at least for temporomandibular disorder. Plan: - Physical therapy for temporomandibular disorder. - Follow-up in clinic as needed. Reach out anytime with any questions or concerns. MyChart is an excellent way to get ahold of our team. Tristan Guallpa MD Staff, [facility] [place] HPI: This is Ms. Ladi Byers, a 37 year old female who presents to the [facility] clinic with the chief complaint of pain. CC: Pain, excruciating Today: Hospitalized a year ago for stomach ulcer Treated for Cdiff Has been to ENT Left septum deviated it seems Has been told she has TMJ by dentist Pain started a few months ago, maybe beginning of year Constant Just anterior to left ear Like pressure Worse when she moves her jaw Ear feels full on left Ear hurts on inside Gets tinnitus bilateral, same both side ENT last saw her last month Not always able to complete 8 hour shift Nothing sets it off, it's always there Feels better when plugging ear Feels better if she hums Jaw pops Head can spin Room can spin around her When she moves her jaw she gets pain Jaw movement is With jaw movement gets cracking or popping Jaw gets tired after eating Head and neck hurt Does not think she grinds teeth Area has been affected before by trauma, but no clear trauma link to today's symptoms Wearing mouth guard for about 2 months Past history per chart review includes: Past medical history, problem list: Migraine, nephrolithiasis, chlamydia, 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 Speech fluent. Cogent. Responds appropriately. Cranial Nerves: CNII: Visual alas intact. CNIII, IV, : Pupils are reactive to light. Horizontal and vertical gaze intact. CN V: Facial sensation intact bilaterally to touch. Reports left V2 is 80% and left V3 is about 50%. CN VII: Smile is symmetric. CN VIII: Hearing intact to finger rub bilaterally. CN IX: No hypophonia. CN XI: Full strength shoulder shrug bilaterally. CN XII: Tongue protrusion full, midline. Jaw slightly to left Motor: Individual muscle group testing: Right Left Shoulder abduction 5 5 Elbow flexion 5 5 Elbow extension 5 5 Wrist extension 5 5 Wrist flexion Finger extension 5 5 Distal finger flexion 5 5 Thumb abduction Hip flexion Knee extension Knee flexion Dorsiflexion Plantarflexion Ambulates easily. Hops on one foot. Performs multiple deep knee bends. Toe walks Reflexes: R L Biceps 1-2 1 Patellar 2 X (deferred on L per patient preference) Ankle 2 2 Sensation: Intact to sharp in the distal upper and lower extremities. Rhomberg negative. Coordination: Intact yfcvet-mc-qtst-finger bilaterally. Gait: Stands with arms crossed. Ambulates easily in the clinic ram. Normal, narrow-based gait. Able to tandem walk. Good arm swing. Turns easily. Hops on one foot, then the other. Toe walks David Hallpike Reports reproduction of symptoms left ear down No nystagmus noted Same with right ear down This note was partially created using voice recognition software and is inherently subject to errors including those of syntax and sound-alike substitutions which may escape proofreading. In such instances, original meaning may be extrapolated by contextual derivation. I spent a total of 44 minutes on the date of the service which included time spent talking to the patient/documenting in the chart, examining the patient. Referring Provider: TERESA PATEL [[id number]] Allergies As of Date: 12/21/2022 Noted Allergy Reaction CARIPRAZINE 0 (more content not included)... Normal [facility] CHEMISTRYOrdered By: SYSTEM SYSTEM on 11-07-2022 Anion gap [Moles/Vol] 11 mmol/L Normal 6 - 16 mEq/L [facility] Calcium [Mass/Vol] 8.3 mg/dL Low 8.9 - 11. 1 mg/dL [facility] Chloride [Moles/Vol] 106 mmol/L Normal 101 - 1 11 mmol/L [facility] CO2 [Moles/Vol] 24 mmol/L Normal 21 - 31 mmol/L [facility] Cobalamin (Vitamin B12) [Mass/Vol] 258 pg/mL Normal 50 - 1500 pg/mL [facility] Creatinine [Mass/Vol] 0.7 mg/dL Normal 0.5 - 1.3 mg/dL [facility] Folate [Mass/Vol] 3.2 ng/mL Low >=6.7ng/mL [facility] GFR/1.73 sq M.predicted among non-blacks MDRD (S/P/Bld) [Vol rate/Area] 114 mL/min/1.73 m2 Normal >=59mL/min/ 1.73 m2 [facility] S Glucose [Mass/Vol] 78 mg/dL Normal 55 - 199 mg/dL [facility] Magnesium [Mass/Vol] 2.4 mg/dL Normal 1.3 - 2 .4 mg/dL [facility] Potassium [Moles/Vol] 3.9 mmol/L Normal 3.5 - 5.3 mmol/L [facility] Sodium [Moles/Vol] 137 mmol/L Normal 135 - 145 mmol/L [facility] Urea nitrogen [Mass/Vol] 9 mg/dL Normal 5 - 21 mg/dL [facility] Urea nitrogen/Creatinine [Mass ratio] 13 mg/mg Normal 10 - 20 [facility] HEMATOLOGYOrdered By: SYSTEM SYSTEM on 11-07-2022 Basophils/100 WBC (Bld) 0.2 % Normal 0.0 - 2.0 % [facility] HemeAutoSS Basophils/Leukocytes Auto (Bld) [Pure # fraction] 0.0 E9/L Normal 0.0 - 0.2 E9/L [facility]eAuto[facility] Eosinophils/100 WBC (Bld) 0.2 % Normal 0.0 - 8.0 % [facility]eAuto[facility] Eosinophils/Leukocytes Auto (Bld) [Pure # fraction] 0.0 E9/L Normal 0.0 - 0.5 E9/L [facility] Lymphocytes/100 WBC (Bld) 25.0 % Normal 14.0 - 50.0 % [facility]eAuto[facility] Lymphocytes/Leukocytes Auto (Bld) [Pure # fraction] 1.2 E9/L Normal 1.0 - 4.0 E9/L [facility]eAuto[facility] Monocytes/100 WBC (Bld) 9.6 % Normal 4.0 - 14.0 % [facility]eAuto[facility] Monocytes/Leukocytes Auto (Bld) [Pure # fraction] 0.5 E9/L Normal 0.2 - 1.0 E9/L [facility]Auto[facility] Neutrophils/100 WBC (Bld) 65.0 % Normal 36.0 - 75.0 % [facility]eAuto[facility] Neutrophils/Leukocytes Auto (Bld) [Pure # fraction] 3.2 E9/L Normal 2.0 - 7.5 E9/L [facility] HEMATOLOGYOrdered By: Archie Hackett on 11-07-2022 Erythrocyte distribution width (RBC) [Ratio] 13.6 % Normal 10.9 - 14.2 % [facility]eAuto[facility] Hematocrit (Bld) [Volume fraction] 40.2 % Normal 34.0 - 46.0 % [facility]eAuto[facility] Hemoglobin (Bld) [Mass/Vol] 14.0 g/dL Normal 12.0 - 16.0 gm/dL [facility] MCH (RBC) [Entitic mass] 35.0 pg High 27.0 - 34.0 pg [facility]eAuto[facility] MCHC (RBC) [Mass/Vol] 34.8 g/dL Normal 31.4 - 36.0 gm/dL [facility]eAuto[facility] MCV (RBC) [Entitic vol] 100.5 fL High 80.0 - 100.0 fL [facility]eAuto[facility] Platelet mean volume (Bld) [Entitic vol] 7.8 fL Normal 6.4 - 10.8 fL [facility]eAutoSS Platelets (Bld) [#/Vol] 216.0 E9/L Normal 150.0 - 500.0 E9/L [facility] RBC (Bld) [#/Vol] 4.0 E12/L Low 4.3 - 5.9 E12/L [facility] WBC corrected for nucl RBC Auto (Bld) [#/Vol] 4.9 E9/L Normal 4.0 - 11.0 E9/L [facility] CHEMISTRYOrdered By: SYSTEM SYSTEM on 11-06-2022 Amphetamines Screen method >1000 ng/mL Ql (U) Positive 2 *ABN* (11/06/22 5:23 PM) Invalid Interpretation Code Negative [facility] Comment on above: Result Comment: No c onfirmation requested by Physican\Results verified by repeat analysis\Unconfirmed by alternate method\Critical Result UD_AMPH:POS Called to [facility] ER by NORBERT AVERY And Read Back For Confirmation at: 11/06/2022 18:45:06 Barbiturates Screen Ql (U) Negative (11/06/22 5:23 PM) Normal Negative [facility] Benzodiazepines Ql (U) Negative (11/06/22 5:23 PM) Normal Negative [facility] Cocaine Ql (U) Negative (11/06/22 5:23 PM) Normal Negative [facility] Opiates Screen Ql (U) Negative (11/06/22 5:23 PM) Normal Negative [facility] Phencyclidine Screen method >25 ng/mL Ql (U) Negative (11/06/22 5:23 PM) Normal Negative [facility] Tetrahydrocannabinol Screen method >50 ng/mL Ql (U) Positive 1 *ABN* (11/06/22 5:23 PM) Invalid Interpretation Code Negative [facility] Comment on above: Result Comment: No c onfirmation requested by Physican\Results verified by repeat analysis\Unconfirmed by alternate method\Critical Result UD_THC:POS Called to [facility] ER by NORBERT AVERY And Read Back For Confirmation at: 11/06/2022 18:45:06 Albumin [Mass/Vol] 4.4 g/dL Normal 3.3 - 5.0 gm/dL [facility] Albumin/Globulin [Mass ratio] 1.3 {ratio} Normal 1.1 - 2.2 [facility] ALP [Catalytic activity/Vol] 90 [iU]/d Normal 21 - 98 Int._Unit/L [facility] ALT No additional P-5'-P [Catalytic activity/Vol] 48 [iU]/d High 6 - 46 Int._Unit/L [facility] Anion gap [Moles/Vol] 23 mmol/L High 6 - 16 mEq/L [facility] AST [Catalytic activity/Vol] 68 [iU]/d High 5 - 43 Int._Unit/L [facility] Bilirubin [Mass/Vol] 3.0 mg/dL High 0.0 - 1 .1 mg/dL [facility] Bilirubin.direct [Mass/Vol] 0.6 mg/dL High 0.1 - 0.4 mg/dL [facility] Bilirubin.indirect [Mass or moles/Vol] 2.4 mg/dL High 0.1 - 0.9 mg/dL [facility] Calcium [Mass/Vol] 9.7 mg/dL Normal 8.9 - 11. 1 mg/dL [facility] Chloride [Moles/Vol] 99 mmol/L Low 101 - 1 11 mmol/L [facility] CO2 [Moles/Vol] 19 mmol/L Low 21 - 31 mmol/L [facility] Creatinine [Mass/Vol] 0.8 mg/dL Normal 0.5 - 1.3 mg/dL [facility] GFR/1.73 sq M.predicted among non-blacks MDRD (S/P/Bld) [Vol rate/Area] 97 mL/min/1.73 m2 Normal >=59mL/min/ 1.73 m2 [facility] Globulin (S) [Mass/Vol] 3.4 g/dL Normal 1.4 - 4.0 gm/dL [facility] Glucose [Mass/Vol] 87 mg/dL Normal 55 - 199 mg/dL [facility] Lipase [Catalytic activity/Vol] 23 U/L Normal 13 - 58 unit/L [facility] Potassium [Moles/Vol] 3.4 mmol/L Low 3.5 - 5.3 mmol/L [facility] Protein [Mass/Vol] 7.8 g/dL Normal 6.0 - 7.8 gm/dL [facility] Sodium [Moles/Vol] 138 mmol/L Normal 135 - 145 mmol/L [facility] Troponin I.cardiac [Mass/Vol] 3.00 pg/mL Low 10.10 - 27.10 pg/mL [facility] TSH Qn 0.91 m[IU]/L Normal 0.34 - 5.60 mcIU/mL [facility] Urea nitrogen [Mass/Vol] 11 mg/dL Normal 5 - 21 mg/dL [facility] Urea nitrogen/Creatinine [Mass ratio] 14 mg/mg Normal 10 - 20 [facility] HEMATOLOGYOrdered By: [employer] SYSTEM on 11-06-2022 Basophils/100 WBC (Bld) 0.2 % Normal 0.0 - 2.0 % [facility] Basophils/Leukocytes Auto (Bld) [Pure # fraction] 0.0 E9/L Normal 0.0 - 0.2 E9/L [facility] Eosinophils/100 WBC (Bld) 0.0 % Normal 0.0 - 8.0 % [facility] Eosinophils/Leukocytes Auto (Bld) [Pure # fraction] 0.0 E9/L Normal 0.0 - 0.5 E9/L [facility] Lymphocytes/100 WBC (Bld) 4.2 % Low 14.0 - 50.0 % [facility] Lymphocytes/Leukocytes Auto (Bld) [Pure # fraction] 0.5 E9/L Low 1.0 - 4.0 E9/L [facility] Monocytes/100 WBC (Bld) 3.1 % Low 4.0 - 14.0 % [facility] Monocytes/Leukocytes Auto (Bld) [Pure # fraction] 0.3 E9/L Normal 0.2 - 1.0 E9/L [facility] Neutrophils/100 WBC (Bld) 92.5 % High 36.0 - 75.0 % [facility] Neutrophils/Leukocytes Auto (Bld) [Pure # fraction] 10.2 E9/L High 2.0 - 7.5 E9/L [facility] HEMATOLOGYOrdered By: Monse Alejandro on 11-06-2022 Erythrocyte distribution width (RBC) [Ratio] 13.8 % Normal 10.9 - 14.2 % [facility] Hematocrit (Bld) [Volume fraction] 48.6 % High 34.0 - 46.0 % [facility] Hemoglobin (Bld) [Mass/Vol] 16.3 g/dL High 12.0 - 16.0 gm/dL [facility] MCH (RBC) [Entitic mass] 34.2 pg High 27.0 - 34.0 pg [facility] MCHC (RBC) [Mass/Vol] 33.5 g/dL Normal 31.4 - 36.0 gm/dL [facility] MCV (RBC) [Entitic vol] 102.2 fL High 80.0 - 100.0 fL [facility] Platelet mean volume (Bld) [Entitic vol] 7.3 fL Normal 6.4 - 10.8 fL [facility] Platelets (Bld) [#/Vol] 328.0 E9/L Normal 150.0 - 500.0 E9/L [facility] RBC (Bld) [#/Vol] 4.8 E12/L Normal 4.3 - 5.9 E12/L [facility] WBC corrected for nucl RBC Auto (Bld) [#/Vol] 11.0 E9/L Normal 4.0 - 11.0 E9/L [facility] SEROLOGYOrdered By: Trent Schmidt on 11-06-2022 Beta hCG Ql Negative (11/06/22 3:05 PM) Normal [facility] URINALYSISOrdered By: Liu Schmidt on 11-06-2022 Bacteria LM Ql (Urine sed) Trace /HPF Normal Trace/HPF [facility] Bilirubin Ql (U) Negative (11/06/22 5:23 PM) Normal Negative [facility] Clarity (U) Clear (11/06/22 5:23 PM) Normal Clear [facility] Color (U) Yellow (11/06/22 5:23 PM) Normal Yellow [facility] Epithelial cells.squamous LM.HPF (Urine sed) [#/Area] 0-2 /HPF Normal 0-2/HPF [facility] Glucose Test strip (U) [Mass/Vol] Negative (11/06/22 5:23 PM) Normal Negative [facility] Hemoglobin Ql (U) Trace *ABN* (11/06/22 5:23 PM) Invalid Interpretation Code Negative [facility] Ketones (U) [Mass/Vol] 3+ *ABN* (11/06/22 5:23 PM) Invalid Interpretation Code Negative [facility] Auto SS [place].plasma/[place] .RBC (Bld) [Mass ratio] 0-3 /HPF Normal 0-3/HPF [facility] Nitrite Ql (U) Negative (11/06/22 5:23 PM) Normal Negative [facility] pH (U) 6.0 *NA* (11/06/22 5:23 PM) Invalid Interpretation Code 5.0 - 9.0 [facility] Protein (U) [Mass/Vol] Negative (11/06/22 5:23 PM) Normal Negative [facility] Specific gravity (U) [Rel density] 1.025 *NA* (11/06/22 5:23 PM) Invalid Interpretation Code 1.005 - 1.030 [facility] UA Spec Desc Clean Catch (11/06/22 5:23 PM) Normal [facility] Urobilinogen Qn (U) [id number] {Patty'U}/dL Normal 0.0 - 1.0 EU/dL [facility] WBC Auto Ql (U) Negative (11/06/22 5:23 PM) Normal Negative [facility] SS WBC LM.HPF (Urine sed) [#/Area] 0-5 /HPF Normal 0-5/HPF [facility] CHEMISTRYOrdered By: SYSTEM SYSTEM on 10-22-2022 Albumin [Mass/Vol] 4.2 g/dL Normal 3.3 - 5.0 gm/dL [facility] Albumin/Globulin [Mass ratio] 1.4 {ratio} Normal 1.1 - 2.2 [facility] ALP [Catalytic activity/Vol] 65 [iU]/d Normal 21 - 98 Int._Unit/L [facility] ALT No additional P-5'-P [Catalytic activity/Vol] 51 [iU]/d High 6 - 46 Int._Unit/L [facility] Anion gap [Moles/Vol] 14 mmol/L Normal 6 - 16 mEq/L [facility] AST [Catalytic activity/Vol] 86 [iU]/d High 5 - 43 Int._Unit/L [facility] Bilirubin [Mass/Vol] 0.9 mg/dL Normal 0.0 - 1 .1 mg/dL [facility] Calcium [Mass/Vol] 9.2 mg/dL Normal 8.9 - 11. 1 mg/dL [facility] Chloride [Moles/Vol] 105 mmol/L Normal 101 - 1 11 mmol/L [facility] CO2 [Moles/Vol] 24 mmol/L Normal 21 - 31 mmol/L [facility] Creatinine [Mass/Vol] 0.6 mg/dL Normal 0.5 - 1.3 mg/dL [facility] Ferritin [Mass/Vol] 79 ng/mL Normal 11 - 307 ng/mL [facility] GFR/1.73 sq M.predicted among blacks MDRD (S/P/Bld) [Vol rate/Area] mL/min/1.73 m2 Normal >=59mL/min/ 1.73 m2 [facility] GFR/1.73 sq M.predicted among non-blacks MDRD (S/P/Bld) [Vol rate/Area] mL/min/1.73 m2 Normal >=59mL/min/ 1.73 m2 [facility] Globulin (S) [Mass/Vol] 2.9 g/dL Normal 1.4 - 4.0 gm/dL [facility] Glucose [Mass/Vol] 84 mg/dL Normal 55 - 199 mg/dL [facility] Iron [Mass/Vol] 48 ug/dL Normal 35 - 153 mcg/dL [facility] Iron binding capacity [Mass/Vol] 423 ug/dL High 250 - 400 mcg/dL [facility] Potassium [Moles/Vol] 3.1 mmol/L Low 3.5 - 5.3 mmol/L [facility] Protein [Mass/Vol] 7.1 g/dL Normal 6.0 - 7.8 gm/dL [facility] Sodium [Moles/Vol] 140 mmol/L Normal 135 - 145 mmol/L [facility] Transferrin [Mass/Vol] 302 mg/dL Normal 200 - 370 mg/dL [facility] Urea nitrogen [Mass/Vol] 5 mg/dL Normal 5 - 21 mg/dL [facility] Urea nitrogen/Creatinine [Mass ratio] 8 mg/mg Low 10 - 20 [facility] HEMATOLOGYOrdered By: Hellen tipton on 10-22-2022 Erythrocyte distribution width (RBC) [Ratio] 14.3 % High 10.9 - 14.2 % [facility] Hematocrit (Bld) [Volume fraction] 44.9 % Normal 34.0 - 46.0 % [facility] Hemoglobin (Bld) [Mass/Vol] 15.4 g/dL Normal 12.0 - 16.0 gm/dL [facility] MCH (RBC) [Entitic mass] 34.9 pg High 27.0 - 34.0 pg [facility] MCHC (RBC) [Mass/Vol] 34.3 g/dL Normal 31.4 - 36.0 gm/dL [facility] MCV (RBC) [Entitic vol] 101.7 fL High 80.0 - 100.0 fL [facility] Platelet mean volume (Bld) [Entitic vol] 7.8 fL Normal 6.4 - 10.8 fL [facility] Platelets (Bld) [#/Vol] 254.0 E9/L Normal 150.0 - 500.0 E9/L [facility] RBC (Bld) [#/Vol] 4.4 E12/L Normal 4.3 - 5.9 E12/L [facility] WBC corrected for nucl RBC Auto (Bld) [#/Vol] 6.8 E9/L Normal 4.0 - 11.0 E9/L [facility] CHEMISTRYOrdered By: SYSTEM SYSTEM on 07-29-2022 Albumin [Mass/Vol] 4.9 g/dL Normal 3.3 - 5.0 gm/dL [facility] Albumin/Globulin [Mass ratio] 1.4 {ratio} Normal 1.1 - 2.2 [facility] ALP [Catalytic activity/Vol] 95 [iU]/d Normal 21 - 98 Int._Unit/L [facility] ALT No additional P-5'-P [Catalytic activity/Vol] 109 [iU]/d High 6 - 46 Int._Unit/L [facility] Anion gap [Moles/Vol] 20 mmol/L High 6 - 16 mEq/L [facility] AST [Catalytic activity/Vol] 148 [iU]/d High 5 - 43 Int._Unit/L [facility] Bilirubin [Mass/Vol] 2.8 mg/dL High 0.0 - 1 .1 mg/dL [facility] Bilirubin.direct [Mass/Vol] 0.6 mg/dL High 0.1 - 0.4 mg/dL [facility] Bilirubin.indirect [Mass or moles/Vol] 2.2 mg/dL High 0.1 - 0.9 mg/dL [facility] Calcium [Mass/Vol] 9.5 mg/dL Normal 8.9 - 11. 1 mg/dL [facility] Chloride [Moles/Vol] 97 mmol/L Low 101 - 1 11 mmol/L [facility] CO2 [Moles/Vol] 19 mmol/L Low 21 - 31 mmol/L [facility] Creatinine [Mass/Vol] 0.9 mg/dL Normal 0.5 - 1.3 mg/dL [facility] GFR/1.73 sq M.predicted among blacks MDRD (S/P/Bld) [Vol rate/Area] mL/min/1.73 m2 Normal >=59mL/min/ 1.73 m2 [facility] Chem S GFR/1.73 sq M.predicted among non-blacks MDRD (S/P/Bld) [Vol rate/Area] mL/min/1.73 m2 Normal >=59mL/min/ 1.73 m2 [facility] Chem S Globulin (S) [Mass/Vol] 3.4 g/dL Normal 1.4 - 4.0 gm/dL [facility] Glucose [Mass/Vol] 98 mg/dL Normal 55 - 199 mg/dL [facility] Lipase [Catalytic activity/Vol] 32 U/L Normal 13 - 58 unit/L [facility] Potassium [Moles/Vol] 3.1 mmol/L Low 3.5 - 5.3 mmol/L [facility] Protein [Mass/Vol] 8.3 g/dL High 6.0 - 7.8 gm/dL [facility] Sodium [Moles/Vol] 133 mmol/L Low 135 - 145 mmol/L [facility] Urea nitrogen [Mass/Vol] 7 mg/dL Normal 5 - 21 mg/dL [facility] Urea nitrogen/Creatinine [Mass ratio] 8 mg/mg Low 10 - 20 [facility] HEMATOLOGYOrdered By: SYSTEM SYSTEM on 07-29-2022 Basophils/100 WBC (Bld) 0.7 % Normal 0.0 - 2.0 % [facility] Basophils/Leukocytes Auto (Bld) [Pure # fraction] 0.1 E9/L Normal 0.0 - 0.2 E9/L [facility] Eosinophils/100 WBC (Bld) 0.6 % Normal 0.0 - 8.0 % [facility] Eosinophils/Leukocytes Auto (Bld) [Pure # fraction] 0.1 E9/L Normal 0.0 - 0.5 E9/L [facility] Lymphocytes/100 WBC (Bld) 20.3 % Normal 14.0 - 50.0 % [facility] Lymphocytes/Leukocytes Auto (Bld) [Pure # fraction] 2.9 E9/L Normal 1.0 - 4.0 E9/L [facility] Monocytes/100 WBC (Bld) 4.5 % Normal 4.0 - 14.0 % [facility] Monocytes/Leukocytes Auto (Bld) [Pure # fraction] 0.6 E9/L Normal 0.2 - 1.0 E9/L [facility] Neutrophils/100 WBC (Bld) 73.9 % Normal 36.0 - 75.0 % [facility] Neutrophils/Leukocytes Auto (Bld) [Pure # fraction] 10.5 E9/L High 2.0 - 7.5 E9/L [facility] HEMATOLOGYOrdered By: Virginia De Jesus on 07-29-2022 Erythrocyte distribution width (RBC) [Ratio] 15.4 % High 10.9 - 14.2 % [facility] Hematocrit (Bld) [Volume fraction] 54.3 % High 34.0 - 46.0 % [facility] Hemoglobin (Bld) [Mass/Vol] 18.4 g/dL High 12.0 - 16.0 gm/dL [facility] MCH (RBC) [Entitic mass] 33.8 pg Normal 27.0 - 34.0 pg [facility] MCHC (RBC) [Mass/Vol] 33.8 g/dL Normal 31.4 - 36.0 gm/dL [facility] MCV (RBC) [Entitic vol] 99.9 fL Normal 80.0 - 100.0 fL [facility] Platelet mean volume (Bld) [Entitic vol] 7.2 fL Normal 6.4 - 10.8 fL [facility] Platelets (Bld) [#/Vol] 278.0 E9/L Normal 150.0 - 500.0 E9/L [facility] RBC (Bld) [#/Vol] 5.4 E12/L Normal 4.3 - 5.9 E12/L [facility] WBC corrected for nucl RBC Auto (Bld) [#/Vol] 14.2 E9/L High 4.0 - 11.0 E9/L [facility] Covid-19 PCR (CVDTBH)on 05-05 SARS-CoV-2 (COVID-19) RNA SAMAN+probe Ql (Unsp spec) Not detected Normal NOT DETECTED [facility] Comment on above: Result Comment: This test is not yet approved or cleared by the [place] FDA. When there are no FDA-approved or cleared tests available, and other criteria are met, FDA can make tests available under an emergency access mechanism called an Emergency Use Authorization (EUA). The EUA for this test is supported by the [place] Service Technician of Health and Human Service's (HHS's) declaration that circumstances exist to justify the emergency use of in vitro diagnostics for the detection and/or diagnosis of the virus that causes COVID-19. This EUA will remain in effect (meaning this test can be used) for the duration of the COVID-19 declaration justifying emergency of IVDs, unless it is terminated or revoked by FDA (after which the test may no longer be used). When diagnostic testing is negative, the possibility of a false negative should be considered in the context of a patient's recent exposures and the presence of clinical signs and symptoms consistent with SARS-CoV-2. Performed By: #### C MP, [facility] #### [facility] [address] [place] [address] Dr. Kingsley Bautista INFLUENZA A AND B AGon 05-18 INFLUANEGH SEE BELOW Normal [facility] Comment on above: Result Comment: Nega tive for Flu A protein angiten. Infection due to Flu A cannot be ruled out. Flu A angiten in the sample may be below the detection limit of the test. Performed By: #### I NFLUAB #### [facility] [address] [place] [address] Dr. Kingsley Bautista [facility] SEE BELOW Normal [facility] Comment on above: Result Comment: Nega tive for Flu B protein antigen. Infection due to Flu B cannot be ruled out. Flu B antigen in the sample may be below the detection limit of the test. Performed By: #### I NFLUAB #### [facility] [address] [place] [address] Dr. Kingsley Bautista INFLUENZA A AG Negative Normal NEGATIVE SEE COMMENT [facility] Comment on above: Performed By: #### I NFLUAB #### [facility] [address] [place] [address] Dr. Kingsley Bautista INFLUENZA B AG Negative Normal NEGATIVE SEE COMMENT [facility] Comment on above: Performed By: #### I NFLUAB #### [facility] [address] [place] [address] Dr. Kingsley Bautista INTERNAL CONTROLS Within Normal Limits Normal Wi thin Normal Limits [facility] Comment on above: Performed By: #### I NFLUAB #### [facility] [address] [place] [address] Dr. Kingsley Bautista GI PANEL (PCR)on 01-13-2022 Adenovirus F 40/41 Not detected Normal NOT DETECTED [facility] Comment on above: Performed By: #### G IPANEL #### [facility] [address] [place] [address] Dr. Kingsley Bautista Astrovirus Not detected Normal NOT DETECTED [facility] Comment on above: Performed By: #### G IPANEL #### [facility] [address] [place] [address] Dr. Kingsley Bautista C. Diff toxin A/B Detected Critically abnormal NOT DETECTED [facility] Comment on above: Performed By: #### G IPANEL #### [facility] [address] [place] [address] Dr. Kingsley Bautista Campylobacter Not detected Normal NOT DETECTED [facility] Comment on above: Performed By: #### G IPANEL #### [facility] [address] [place] [address] Dr. Kingsley Bautista Cryptosporidium Not detected Normal NOT DETECTED [facility] Comment on above: Performed By: #### G IPANEL #### [facility] [address] [place] [address] Dr. Kingsley Bautista Cyclos. Cayetanensis Not detected Normal NOT DETECTED [facility] Comment on above: Performed By: #### G IPANEL #### [facility] [address] [place] [address] Dr. Kingsley Bautista E. Coli O157 Not Applicable Normal Not Applicable [facility] Comment on above: Performed By: #### G IPANEL #### [facility] [address] [place] [address] Dr. Kingsley Bautista E. histolytica Not detected Normal NOT DETECTED [facility] Comment on above: Performed By: #### G IPANEL #### [facility] [address] [place] [address] Dr. Kingsley Bautista EAEC Not detected Normal NOT DETECTED [facility] Comment on above: Performed By: #### G IPANEL #### [facility] [address] [place] [address] Dr. Kingsley Bautista EIEC Not detected Normal NOT DETECTED [facility] Comment on above: Performed By: #### G IPANEL #### [facility] [address] [place] [address] Dr. Kingsley Bautista EPEC Not detected Normal NOT DETECTED [facility] Comment on above: Performed By: #### G IPANEL #### [facility] [address] [place] [address] Dr. Kingsley Bautista ETEC Not detected Normal NOT DETECTED [facility] Comment on above: Performed By: #### G IPANEL #### [facility] [address] [place] [address] Dr. Kingsley Dunham. Lamblia Not detected Normal NOT DETECTED [facility] Comment on above: Performed By: #### G IPANEL #### [facility] [address] [place] [address] Dr. Kingsley Bautista GIPANEL CONTROLS PASSED Normal [facility] Comment on above: Performed By: #### G IPANEL #### [facility] [address] [address] [address] Kingsley [facility] HEADER GI PANEL BACTERIA Normal T [facility] Comment on above: Performed By: #### G IPANEL #### [facility] [address] [address] [address] Kingsley GILLESPIE ECOLI GI PANEL DIARRHEAGEN IC E.COLI / SHIGELLA Normal [facility] Comment on above: Performed By: #### G IPANEL #### [facility] [address] [place] [address] Dr. Kingsley GILLESPIE INFO SEE BELOW [facility] Comment on above: Result Comment: EAEC - Enteroaggregative E. Coli EPEC- Enteropathogenic E. Coli ETEC- Enterotoxigenic E. Coli lt/st STEC- Shigella-like toxin-producing E. Coli stx1/stx2 EIEC- Shigella/Enteroinvasive E. Coli Performed By: #### G IPANEL #### [facility] [address] [place] [address] Dr. Kingsley GILLESPIE PARASITES GI PANEL PARASITES Normal [facility] Comment on above: Performed By: #### G IPANEL #### [facility] [address] [place] [address] Dr. Kingsley GILLESPIE VIRUS GI PANEL VIRUSES Normal [facility] Comment on above: Performed By: #### G IPANEL #### [facility] [address] [place] [address] Dr. Kingsley Bautista Norovirus GI/GII Not detected Normal NOT DETECTED [facility] Comment on above: Performed By: #### G IPANEL #### [facility] [address] [place] [address] Dr. Kingsley Bautista P. Shigelloides Not detected Normal NOT DETECTED [facility] Comment on above: Performed By: #### G IPANEL #### [facility] [address] [place] [address] Dr. Kingsley Bautista Rotavirus A Not detected Normal NOT DETECTED [facility] Comment on above: Performed By: #### G IPANEL #### [facility] [address] [address] [address] Kingsley Bautista Salmonella Not detected Normal NOT DETECTED [facility] Comment on above: Performed By: #### G IPANEL #### [facility] [address] [place] [address] Dr. Kingsley Bautista Sapovirus Not detected Normal NOT DETECTED [facility] Comment on above: Performed By: #### G IPANEL #### [facility] [address] [address] [address] Kingsley Bautista STEC Not detected Normal NOT DETECTED [facility] Comment on above: Performed By: #### G IPANEL #### [facility] [address] [place] [address] Dr. Kingsley Bautista Vibrio Not detected Normal NOT DETECTED [facility] Comment on above: Performed By: #### G IPANEL #### [facility] [address] [place] [address] Dr. Kingsley Bautista Vibrio Cholera Not detected Normal NOT DETECTED [facility] Comment on above: Performed By: #### G IPANEL #### [facility] [address] [place] [address] Dr. Kingsley Bautista Y. Enterocolitica Not detected Normal NOT DETECTED [facility] Comment on above: Performed By: #### G IPANEL #### [facility] [address] [place] [address] Dr. Kingsley Bautista CHEMISTRYOrdered By: SYSTEM SYSTEM on 01-12-2022 Albumin [Mass/Vol] 4.4 g/dL Normal 3.3 - 5.0 gm/dL [facility] Albumin/Globulin [Mass ratio] 1.5 {ratio} Normal 1.1 - 2.2 [facility] ALP [Catalytic activity/Vol] 85 [iU]/d Normal 21 - 98 Int._Unit/L [facility] ALT No additional P-5'-P [Catalytic activity/Vol] 97 [iU]/d High 6 - 46 Int._Unit/L [facility] Anion gap [Moles/Vol] 13 mmol/L Normal 6 - 16 mEq/L [facility] AST [Catalytic activity/Vol] 122 [iU]/d High 5 - 43 Int._Unit/L [facility] Bilirubin [Mass/Vol] 1.9 mg/dL High 0.0 - 1 .1 mg/dL [facility] Bilirubin.direct [Mass/Vol] 0.4 mg/dL Normal 0.1 - 0.4 mg/dL [facility] Bilirubin.indirect [Mass or moles/Vol] 1.5 mg/dL High 0.1 - 0.9 mg/dL [facility] Calcium [Mass/Vol] 9.4 mg/dL Normal 8.9 - 11. 1 mg/dL [facility] Chloride [Moles/Vol] 104 mmol/L Normal 101 - 1 11 mmol/L [facility] CO2 [Moles/Vol] 23 mmol/L Normal 21 - 31 mmol/L [facility] Creatinine [Mass/Vol] 0.8 mg/dL Normal 0.5 - 1.3 mg/dL [facility] GFR/1.73 sq M.predicted among blacks MDRD (S/P/Bld) [Vol rate/Area] mL/min/1.73 m2 Normal >=59mL/min/ 1.73 m2 [facility] Chem S GFR/1.73 sq M.predicted among non-blacks MDRD (S/P/Bld) [Vol rate/Area] mL/min/1.73 m2 Normal >=59mL/min/ 1.73 m2 [facility] Chem S Globulin (S) [Mass/Vol] 2.9 g/dL Normal 1.4 - 4.0 gm/dL [facility] Glucose [Mass/Vol] 105 mg/dL Normal 55 - 199 mg/dL [facility] Lipase [Catalytic activity/Vol] 37 U/L Normal 13 - 58 unit/L [facility] Magnesium [Mass/Vol] 1.2 mg/dL Low 1.3 - 2 .4 mg/dL [facility] Potassium [Moles/Vol] 3.0 mmol/L Low 3.5 - 5.3 mmol/L [facility] Remisol Protein [Mass/Vol] 7.3 g/dL Normal 6.0 - 7.8 gm/dL [facility] Remisol Sodium [Moles/Vol] 137 mmol/L Normal 135 - 145 mmol/L [facility] Remisol Urea nitrogen [Mass/Vol] 7 mg/dL Normal 5 - 21 mg/dL [facility] Remisol Urea nitrogen/Creatinine [Mass ratio] 9 mg/mg Low 10 - 20 [facility] Remisol HEMATOLOGYOrdered By: Genoveva Lorenzo on 01-12-2022 Anisocytosis Ql (Bld) Present (01/12/22 10:03 AM) Normal [facility] HemeManSS Erythrocyte distribution width (RBC) [Ratio] 21.1 % High 10.9 - 14.2 % [facility] Hematocrit (Bld) [Volume fraction] 45.0 % Normal 34.0 - 46.0 % [facility] Hemoglobin (Bld) [Mass/Vol] 15.6 g/dL Normal 12.0 - 16.0 gm/dL [facility] Comment on above: Result Comment: Spec imen warmed for presence of possible cold agglutinin. Results Verified By Repeat Analysis Slide reviewed by BR. MCH (RBC) [Entitic mass] 32.1 pg Normal 27.0 - 34.0 pg [facility] MCHC (RBC) [Mass/Vol] 34.7 g/dL Normal 31.4 - 36.0 gm/dL [facility] MCV (RBC) [Entitic vol] 92.5 fL Normal 80.0 - 100.0 fL [facility] Morphology Kirill (Bld) [Interp] See Morphology (01/12/22 10:03 AM) Normal [facility] HemeManSS Platelet mean volume (Bld) [Entitic vol] 7.7 fL Normal 6.4 - 10.8 fL [facility] Platelets (Bld) [#/Vol] 273.0 E9/L Normal 150.0 - 500.0 E9/L [facility] RBC (Bld) [#/Vol] 4.9 E12/L Normal 4.3 - 5.9 E12/L [facility] WBC corrected for nucl RBC Auto (Bld) [#/Vol] 7.2 E9/L Normal 4.0 - 11.0 E9/L [facility] HEMATOLOGYOrdered By: SYSTEM SYSTEM on 01-12-2022 Basophils/100 WBC (Bld) 0.5 % Normal 0.0 - 2.0 % [facility] Basophils/Leukocytes Auto (Bld) [Pure # fraction] 0.0 E9/L Normal 0.0 - 0.2 E9/L [facility] Eosinophils/100 WBC (Bld) 0.0 % Normal 0.0 - 8.0 % [facility] Eosinophils/Leukocytes Auto (Bld) [Pure # fraction] 0.0 E9/L Normal 0.0 - 0.5 E9/L [facility] Lymphocytes/100 WBC (Bld) 17.8 % Normal 14.0 - 50.0 % [facility] Lymphocytes/Leukocytes Auto (Bld) [Pure # fraction] 1.3 E9/L Normal 1.0 - 4.0 E9/L [facility] Monocytes/100 WBC (Bld) 7.4 % Normal 4.0 - 14.0 % [facility] Monocytes/Leukocytes Auto (Bld) [Pure # fraction] 0.5 E9/L Normal 0.2 - 1.0 E9/L [facility] Neutrophils/100 WBC (Bld) 74.3 % Normal 36.0 - 75.0 % [facility] Neutrophils/Leukocytes Auto (Bld) [Pure # fraction] 5.4 E9/L Normal 2.0 - 7.5 E9/L [facility] HEMATOLOGYOrdered By: Kingsley Bautista on 01-12-2022 Path Review No significant morphological abnormalities identified.CPT [id number] Invalid Interpretation Code [facility] HemeManSS SEROLOGYOrdered By: Virginia tomas on 01-12-2022 Beta hCG Ql Negative (01/12/22 10:03 AM) Normal [facility] Man Sero URINALYSISOrdered By: Virginia Aguirre on 01-12-2022 Bilirubin Ql (U) Negative (01/12/22 1:10 PM) Normal Negative [facility] UA Auto SS Clarity (U) Clear (01/12/22 1:10 PM) Normal Clear [facility] UA Auto SS Color (U) Yellow (01/12/22 1:10 PM) Normal Yellow [facility] UA Auto SS Epithelial cells.squamous LM.HPF (Urine sed) [#/Area] 0-2 /HPF Normal 0-2/HPF [facility]A Auto SS Glucose Test strip (U) [Mass/Vol] Negative (01/12/22 1:10 PM) Normal Negative [facility] UA Auto SS Hemoglobin Ql (U) Trace *ABN* (01/12/22 1:10 PM) Invalid Interpretation Code Negative [facility] UA Auto SS Ketones (U) [Mass/Vol] Negative (01/12/22 1:10 PM) Normal Negative [facility] UA Auto SS [place].plasma/[place] .RBC (Bld) [Mass ratio] 0-3 /HPF Normal 0-3/HPF [facility]A Auto SS Nitrite Ql (U) Negative (01/12/22 1:10 PM) Normal Negative [facility]A Auto SS pH (U) 6.5 *NA* (01/12/22 1:10 PM) Invalid Interpretation Code 5.0 - 9.0 [facility]A Auto SS Protein (U) [Mass/Vol] Negative (01/12/22 1:10 PM) Normal Negative [facility] UA Auto SS Specific gravity (U) [Rel density] <=1.005 *NA* (01/12/22 1:10 PM) Invalid Interpretation Code 1.005 - 1.030 [facility] UA Auto SS UA Spec Desc Clean Catch (01/12/22 1:10 PM) Normal [facility] UA Auto SS Urobilinogen Qn (U) [id number] {Patty'U}/dL Normal 0.0 - 1.0 EU/dL [facility] UA Auto SS WBC Auto Ql (U) Negative (01/12/22 1:10 PM) Normal Negative [facility]A Auto SS WBC LM.HPF (Urine sed) [#/Area] 0-5 /HPF Normal 0-5/HPF [facility] UA Auto SS NM STRESS/REST MULTIon 12-30 NM STRESS/REST MULTI Patient: LADI BYERS Exam Date: 12/30/2021 : 1985 Gender:F Ordering : [facility] Admission #: [id number] Family : Order #: [id number] CLICK HERE TO VIEW EXAM RADIOLOGY REPORT PROCEDURE: RADIONUCLIDE IMAGING STRESS/REST MULTI COMPARISON: None. INDICATIONS: Tachycardia TECHNIQUE: Exam Description: Stress/Rest one day protocol gated SPECT Rest Imagin.5 mCi Tc-99m Cardiolite IV on 12/30/2021 Stress Imaging 30.9 mCi Tc-99m Cardiolite IV on 12/30/2021 Exercise Protocol: 0.4 mg Lexiscan given IV Heart Rate (bpm): Rest: 82 Max: 210 PMHR: 114 Blood Pressure: Rest: 104/70 Max: 146/98 Symptoms: Rest and peak stress ECG findings were normal and the exercise portion of the study was normal per attending physician Dr. Dooley . For more details please see separate cardiac stress test report. FINDINGS: QUALITY OF STUDY: Good. PERFUSION DEFECT: None. LOCATION: N/A SIZE: N/A. SEVERITY: N/A. TYPE: N/A. WALL MOTION: LV SIZE: Normal. 70 mL. TID / TCD: None; 1.0 LVEF: Normal. Calculated EF 63%. SUMMARY: Myocardial perfusion imaging study is NORMAL. CONCLUSION: 1. Normal myocardial profusion scan. No reversible ischemia 2. Normal exercise test Dictated by: Nell Lundberg MD on 12/30/2021 at 15:34 Approved by: Nell Lundberg MD on 12/30/2021 at 15:36 Normal [facility] CBC AUTO DIFFon 12-29-2021 BASO # 0.0 103/ul Normal 0.0-0.1 [facility] Comment on above: Performed By: #### C ANTHONY BHATTI #### [facility] [address] [place] [address] Dr. Kingsley Bautista Basophils/100 WBC (Bld) 0.3 % Normal 0.2-2.0 [facility] Comment on above: Performed By: #### C ANTHONY BHATTI #### [facility] [address] [place] [address] Dr. Kingsley Bautista EO # 0.0 103/ul Normal 0.0-0.7 [facility] Comment on above: Performed By: #### C ANTHONY BHATTI #### [facility] [address] [place] [address] Dr. Kingsley Bautista Eosinophils/100 WBC (Bld) 0.1 % Critically low 0.9-7.0 [facility] Comment on above: Performed By: #### C ANTHONY BHATTI #### [facility] [address] [place] [address] Dr. Kingsley Bautista Erythrocyte distribution width (RBC) [Ratio] 17.1 % Critically high 11.0-15.0 [facility] Comment on above: Performed By: #### C ANTHONY BHATTI #### [facility] [address] [place] [address] Dr. Kingsley Bautitsa Hematocrit (Bld) [Volume fraction] 44.6 % Normal 36.0-48.0 [facility] Comment on above: Performed By: #### C MP, CMADM #### [facility] [address] [place] [address] Dr. Kingsley Bautista Hemoglobin (Bld) [Mass/Vol] 15.1 g/dL Normal 12.0-16.0 [facility] Comment on above: Performed By: #### C MP, CMADM #### [facility] [address] [place] [address] Dr. Kingsley Bautista IG # 0.02 10e3/ul Normal 0.00-0.03 [facility] Comment on above: Performed By: #### C DAVY, CMADM #### [facility] [address] [place] [address] Dr. Kingsley Bautista IG % 0.3 % Normal 0.0-0.5 [facility] Comment on above: Performed By: #### C DAVY, CMADM #### [facility] [address] [place] [address] Dr. Kingsley Bautista LYMPH # 1.9 103/ul Normal 1.2-3.8 [facility] Comment on above: Performed By: #### C DAVY, CMADM #### [facility] [address] [place] [address] Dr. Kingsley Bautista Lymphocytes/100 WBC (Bld) 26.1 % Normal 20.5-60.0 [facility] Comment on above: Performed By: #### C MP, CMADM #### [facility] [address] [place] [address] Dr. Kingsley Bautista MANUAL DIFF REQ NO Normal [facility] Comment on above: Performed By: #### C MP, CMADM #### [facility] [address] [place] [address] Dr. Kingsley Bautista MCH (RBC) [Entitic mass] 31.0 pg Normal 26.7-34.0 [facility] Comment on above: Performed By: #### C MP, CMADM #### [facility] [address] [place] [address] Dr. Kingsley Bautista MCHC (RBC) [Mass/Vol] 33.9 g/dL Normal 29.9-35.2 [facility] Comment on above: Performed By: #### C MP, CMADM #### [facility] [address] [place] [address] Dr. Kingsley Bautista MCV (RBC) [Entitic vol] 91.6 fL Normal 81.0-99.0 [facility] Comment on above: Performed By: #### C MP, CMADM #### [facility] [address] [place] [address] Dr. Kingsley Bautista MONO # 0.5 103/ul Normal 0.3-0.8 [facility] Comment on above: Performed By: #### C MP, CMADM #### [facility] [address] [place] [address] Dr. Kingsley Bautista Monocytes/100 WBC (Bld) 6.5 % Normal 1.7-12.0 [facility] Comment on above: Performed By: #### C MP, CMADM #### [facility] [address] [place] [address] Dr. Kingsley Bautista NEUT # 4.8 103/ul Normal 1.4-6.5 [facility] Comment on above: Performed By: #### C MP, CMADM #### [facility] [address] [place] [address] Dr. Kingsley Bautista Neutrophils/100 WBC (Bld) 66.7 % Normal 43.0-75.0 [facility] Comment on above: Performed By: #### C MP, CMADM #### [facility] [address] [place] [address] Dr. Kingsley Bautista Platelet mean volume (Bld) [Entitic vol] 8.9 fL Critically low 9.5-13.5 [facility] Comment on above: Performed By: #### C MP, CMADM #### [facility] [address] [place] [address] Dr. Kingsley Bautista PLT 263 103/ul Normal 150-450 [facility] Comment on above: Performed By: #### C MP, CMADM #### [facility] [address] [place] [address] Dr. Kingsley Bautista RBC 4.87 106/ul Normal 4.20-5.40 [facility] Comment on above: Performed By: #### C MP, CMADM #### [facility] [address] [place] [address] Dr. Kingsley Bautista WBC 7.2 103/ul Normal 4.0-11.0 [facility] Comment on above: Performed By: #### C DAVY, CMADM #### [facility] [address] [place] [address] Dr. Kingsley Bautista LIPASEon 12-29-2021 Lipase [Catalytic activity/Vol] 142.0 U/L Normal 73.0-393.0 [facility] Comment on above: Performed By: #### E , BMP #### [facility] [address] [place] [address] Dr. Kingsley Bautista PROF 14(COMP METB)on 022 Albumin [Mass/Vol] 4.1 g/dL Normal 3.4-5.0 [facility] Comment on above: Performed By: #### E , BMP #### [facility] [address] [place] [address] Dr. Kingsley Bautista Albumin/Globulin [Mass ratio] 1.1 {ratio} Normal [facility] Comment on above: Performed By: #### E , BMP #### [facility] [address] [place] [address] Dr. Kingsley Bautista ALP [Catalytic activity/Vol] 109 U/L Normal 46-116 [facility] Comment on above: Performed By: #### E , BMP #### [facility] [address] [place] [address] Dr. Kingsley Bautista ALT [Catalytic activity/Vol] 92 U/L Critically high 14-59 [facility] Comment on above: Performed By: #### E , BMP #### [facility] [address] [place] [address] Dr. Kingsley Bautista Anion gap [Moles/Vol] 17.4 mmol/L Normal [facility] Comment on above: Performed By: #### E , BMP #### [facility] [address] [place] [address] Dr. Kingsley Bautista AST [Catalytic activity/Vol] 123 U/L Critically high 15-37 [facility] Comment on above: Performed By: #### E , BMP #### [facility] [address] [place] [address] Dr. Kingsley Bautista Bilirubin [Mass/Vol] 1.2 mg/dL Critically high 0.2-1.0 [facility] Comment on above: Performed By: #### E , BMP #### [facility] [address] [place] [address] Dr. Kingsley Bautista Calcium [Mass/Vol] 9.3 mg/dL Normal 8.5-10.1 [facility] Comment on above: Performed By: #### E , BMP #### [facility] [address] [place] [address] Dr. Kingsley Bautista Chloride [Moles/Vol] 105 mmol/L Normal 98-107 [facility] Comment on above: Performed By: #### E , BMP #### [facility] [address] [place] [address] Dr. Kingsley Bautista CO2 [Moles/Vol] 22.1 mmol/L Normal 21.0-32.0 [facility] Comment on above: Performed By: #### E , BMP #### [facility] [address] [place] [address] Dr. Kingsley Bautista Creatinine [Mass/Vol] 0.67 mg/dL Normal 0.55-1.02 [facility] Comment on above: Performed By: #### E , BMP #### [facility] [address] [place] [address] Dr. Kingsley Bautista EGFR-AF BRAZILIAN >=60 Normal >=60 [facility] Comment on above: Performed By: #### E , BMP #### [facility] [address] [place] [address] Dr. Kingsley Bautista EGFR-NON AF BRAZILIAN >=60 Normal >=60 [facility] Comment on above: Performed By: #### E , BMP #### [facility] [address] [address] [address] Kingsley Bautista Globulin (S) [Mass/Vol] 3.8 g/dL Normal [facility] Comment on above: Performed By: #### E , BMP #### [facility] [address] [address] [address] Kingsley Bautista Glucose [Mass/Vol] 101 mg/dL Normal 74-106 [facility] Comment on above: Performed By: #### E , BMP #### [facility] [address] [place] [address] Dr. Kingsley Bautista Potassium [Moles/Vol] 3.5 mmol/L Normal 3.5-5.1 [facility] Comment on above: Performed By: #### E , BMP #### [facility] [address] [place] [address] Dr. Kingsley Bautista Protein [Mass/Vol] 7.9 g/dL Normal 6.4-8.2 [facility] Comment on above: Performed By: #### E , BMP #### [facility] [address] [place] [address] Dr. Kingsley Bautista Sodium [Moles/Vol] 141 mmol/L Normal 136-145 [facility] Comment on above: Performed By: #### E , BMP #### [facility] [address] [address] [address] Kingsley Bautista Urea nitrogen [Mass/Vol] 6.0 mg/dL Critically low 7.0-18.0 [facility] Comment on above: Performed By: #### E , BMP #### [facility] [address] [place] [address] Dr. Kingsley Bautista Urea nitrogen/Creatinine [Mass ratio] 9.0 mg/mg Normal [facility] Comment on above: Performed By: #### E , BMP #### [facility] [address] [place] [address] Dr. Kingsley Bautista TROPONIN, HIGH SENSITIVITYon 12-29-2021 HSTROP 4.5 pg/mL Normal 4.0-51.3 [facility] Comment on above: Result Comment: CUT- OFF POINTS HAVE BEEN ESTABLISHED BASED ON THE FOURTH UNIVERSAL DEFINITIONS OF MYOCARDIAL INFARCTION. THE UPPER REFERENCE LIMIT (URL) OF TROPONIN, DEFINED THE 99TH PERCENTILE OF cTnI DISTRIBUTION IN A REFERENCE POPULATION, HAS BEEN CONFIRMED THE DECISION THRESHOLD FOR LA DIAGNOSIS. Performed By: #### E , [facility] #### [facility] [address] [address] [address] Kingsley Bautista XR CHEST 2 Von 12-29-2021 XR CHEST 2 V EXAMINATION: XR CHES T 2 V HISTORY: SHORTNESS OF BREATH COMPARISON: 09/10/2019 TECHNIQUE: PA and lateral FINDINGS: LUNGS: No significant pulmonary parenchymal abnormalities. VASCULATURE: No increased pulmonary vasculature. PLEURA: No pneumothorax, effusion, or pleural thickening. CARDIAC: No cardiomegaly or cardiac silhouette abnormality. MEDIASTINUM: No visible mass or adenopathy. BONES: No fracture or visible bone lesion. OTHER: Negative. IMPRESSION: No acute disease. Electronically authenticated by: NELL LUNDBERG Date: 2021-12-29 09:43 Normal [facility] CHEMISTRYOrdered By: SYSTEM SYSTEM on 10-14-2021 Anion gap [Moles/Vol] 9 mmol/L Normal 6 - 16 mEq/L [facility] Rem[facility] Calcium [Mass/Vol] 8.4 mg/dL Low 8.9 - 11. 1 mg/dL [facility] Chloride [Moles/Vol] 109 mmol/L Normal 101 - 1 11 mmol/L [facility] CO2 [Moles/Vol] 26 mmol/L Normal 21 - 31 mmol/L [facility] Creatinine [Mass/Vol] 0.7 mg/dL Normal 0.5 - 1.3 mg/dL [facility] CRP [Mass/Vol] 0.5 mg/dL Normal <=1.9mg/dL [facility] GFR/1.73 sq M.predicted among blacks MDRD (S/P/Bld) [Vol rate/Area] mL/min/1.73 m2 Normal >=59mL/min/ 1.73 m2 [facility] Chem S GFR/1.73 sq M.predicted among non-blacks MDRD (S/P/Bld) [Vol rate/Area] mL/min/1.73 m2 Normal >=59mL/min/ 1.73 m2 [facility] Chem S Glucose [Mass/Vol] 96 mg/dL Normal 55 - 199 mg/dL [facility] Lactate [Mass/Vol] 0.5 mmol/L Normal 0.5 - 2.2 mmol/L [facility] Magnesium [Mass/Vol] 2.3 mg/dL Normal 1.3 - 2 .4 mg/dL [facility] Potassium [Moles/Vol] 4.0 mmol/L Normal 3.5 - 5.3 mmol/L [facility] Sodium [Moles/Vol] 140 mmol/L Normal 135 - 145 mmol/L [facility] TSH Qn 1.15 m[IU]/L Normal 0.34 - 5.60 mcIU/mL [facility] Urea nitrogen [Mass/Vol] mg/dL Normal 5 - 21 mg/dL [facility] Urea nitrogen/Creatinine [Mass ratio] Unable to Calculate Invalid Interpretation Code 10 - 20 [facility] Lactate [Mass/Vol] 0.8 mmol/L Normal 0.5 - 2.2 mmol/L [facility] HEMATOLOGYOrdered By: Neli rose on 10-14-2021 Hemoglobin (Bld) [Mass/Vol] 12.4 g/dL Normal 12.0 - 16.0 gm/dL [facility] HEMATOLOGYOrdered By: SYSTEM SYSTEM on 10-14-2021 Basophils/100 WBC (Bld) 0.4 % Normal 0.0 - 2.0 % [facility] Basophils/Leukocytes Auto (Bld) [Pure # fraction] 0.0 E9/L Normal 0.0 - 0.2 E9/L [facility] Eosinophils/100 WBC (Bld) 0.1 % Normal 0.0 - 8.0 % [facility] Eosinophils/Leukocytes Auto (Bld) [Pure # fraction] 0.0 E9/L Normal 0.0 - 0.5 E9/L [facility] Lymphocytes/100 WBC (Bld) 18.3 % Normal 14.0 - 50.0 % [facility] Lymphocytes/Leukocytes Auto (Bld) [Pure # fraction] 1.5 E9/L Normal 1.0 - 4.0 E9/L [facility] Monocytes/100 WBC (Bld) 6.4 % Normal 4.0 - 14.0 % [facility] Monocytes/Leukocytes Auto (Bld) [Pure # fraction] 0.5 E9/L Normal 0.2 - 1.0 E9/L [facility] Neutrophils/100 WBC (Bld) 74.8 % Normal 36.0 - 75.0 % [facility] Neutrophils/Leukocytes Auto (Bld) [Pure # fraction] 6.0 E9/L Normal 2.0 - 7.5 E9/L [facility] HEMATOLOGYOrdered By: Ann-Marie Gregory on 10-14-2021 Erythrocyte distribution width (RBC) [Ratio] 16.1 % High 10.9 - 14.2 % [facility] Hematocrit (Bld) [Volume fraction] 38.2 % Normal 34.0 - 46.0 % [facility] Hemoglobin (Bld) [Mass/Vol] 13.2 g/dL Normal 12.0 - 16.0 gm/dL [facility] MCH (RBC) [Entitic mass] 33.2 pg Normal 27.0 - 34.0 pg [facility] MCHC (RBC) [Mass/Vol] 34.7 g/dL Normal 31.4 - 36.0 gm/dL [facility] MCV (RBC) [Entitic vol] 95.7 fL Normal 80.0 - 100.0 fL [facility] Platelet mean volume (Bld) [Entitic vol] 8.0 fL Normal 6.4 - 10.8 fL [facility] Platelets (Bld) [#/Vol] 328.0 E9/L Normal 150.0 - 500.0 E9/L [facility] RBC (Bld) [#/Vol] 4.0 E12/L Low 4.3 - 5.9 E12/L [facility] WBC corrected for nucl RBC Auto (Bld) [#/Vol] 8.0 E9/L Normal 4.0 - 11.0 E9/L [facility] BLOOD BANKOrdered By: Neli rose on 10-13-2021 ABO/Rh Interp Positive Invalid Interpretation Code [facility] BB Subsection BLOOD BANKOrdered By: Archie Hackett on 10-13-2021 ABSC Gel Interp Negative (10/13/21 11:53 PM) Normal [facility] BB Subsection CHEMISTRYOrdered By: SYSTEM SYSTEM on 10-13-2021 Albumin [Mass/Vol] 4.1 g/dL Normal 3.3 - 5.0 gm/dL [facility] Remisol Albumin/Globulin [Mass ratio] 1.3 {ratio} Normal 1.1 - 2.2 [facility] ALP [Catalytic activity/Vol] 69 [iU]/d Normal 21 - 98 Int._Unit/L [facility] ALT No additional P-5'-P [Catalytic activity/Vol] 41 [iU]/d Normal 6 - 46 Int._Unit/L [facility] Anion gap [Moles/Vol] 18 mmol/L High 6 - 16 mEq/L [facility] AST [Catalytic activity/Vol] 47 [iU]/d High 5 - 43 Int._Unit/L [facility] Bilirubin [Mass/Vol] 0.9 mg/dL Normal 0.0 - 1 .1 mg/dL [facility]isol Bilirubin.direct [Mass/Vol] 0.2 mg/dL Normal 0.1 - 0.4 mg/dL [facility]isol Bilirubin.indirect [Mass or moles/Vol] 0.7 mg/dL Normal 0.1 - 0.9 mg/dL [facility]isol Calcium [Mass/Vol] 9.6 mg/dL Normal 8.9 - 11. 1 mg/dL [facility] Chloride [Moles/Vol] 100 mmol/L Low 101 - 1 11 mmol/L [facility] CO2 [Moles/Vol] 23 mmol/L Normal 21 - 31 mmol/L [facility] Creatinine [Mass/Vol] 0.9 mg/dL Normal 0.5 - 1.3 mg/dL [facility] GFR/1.73 sq M.predicted among blacks MDRD (S/P/Bld) [Vol rate/Area] mL/min/1.73 m2 Normal >=59mL/min/ 1.73 m2 [facility] Chem S GFR/1.73 sq M.predicted among non-blacks MDRD (S/P/Bld) [Vol rate/Area] mL/min/1.73 m2 Normal >=59mL/min/ 1.73 m2 [facility] Chem S Globulin (S) [Mass/Vol] 3.2 g/dL Normal 1.4 - 4.0 gm/dL [facility] Glucose [Mass/Vol] 116 mg/dL Normal 55 - 199 mg/dL [facility] Lactate [Mass/Vol] 2.5 mmol/L High 0.5 - 2.2 mmol/L [facility] Protein [Mass/Vol] 7.3 g/dL Normal 6.0 - 7.8 gm/dL [facility] Sodium [Moles/Vol] 138 mmol/L Normal 135 - 145 mmol/L [facility] Troponin I.cardiac [Mass/Vol] 3.40 pg/mL Low 10.10 - 27.10 pg/mL [facility] Urea nitrogen [Mass/Vol] mg/dL Normal 5 - 21 mg/dL [facility] Urea nitrogen/Creatinine [Mass ratio] Unable to Calculate Invalid Interpretation Code 10 - 20 [facility] Remisol CHEMISTRYOrdered By: Archie mccabe on 10-13-2021 Potassium [Moles/Vol] 2.7 mmol/L Invalid Interpretation Code 3.5 - 5.3 mmol/L [facility]isol Comment on above: Result Comment: Crit ical Result verified by repeat analysis\Critical Result S_K:2.7 Called to SERGIO GAVIRIA AT by ARCHIE HACKETT And Read Back For Confirmation at: 10/14/2021 00:30:16 COAGULATIONOrdered By: Archie Hackett on 10-13-2021 aPTT Coag (PPP) [Time] 32.8 s Normal 25.1 - 36.5 second(s) [facility] Auto Coag INR Coag (PPP) [Relative time] 1.0 {INR} Invalid Interpretation Code [facility] Auto Coag PT Coag (PPP) [Time] 12.1 s Normal 10.2 - 12.9 second(s) [facility] Auto Coag HEMATOLOGYOrdered By: SYSTEM SYSTEM on 10-13-2021 Basophils/100 WBC (Bld) 0.8 % Normal 0.0 - 2.0 % [facility] Basophils/Leukocytes Auto (Bld) [Pure # fraction] 0.1 E9/L Normal 0.0 - 0.2 E9/L [facility] Eosinophils/100 WBC (Bld) 0.2 % Normal 0.0 - 8.0 % [facility] Eosinophils/Leukocytes Auto (Bld) [Pure # fraction] 0.0 E9/L Normal 0.0 - 0.5 E9/L [facility] Lymphocytes/100 WBC (Bld) 26.2 % Normal 14.0 - 50.0 % [facility] Lymphocytes/Leukocytes Auto (Bld) [Pure # fraction] 2.9 E9/L Normal 1.0 - 4.0 E9/L [facility] Monocytes/100 WBC (Bld) 8.3 % Normal 4.0 - 14.0 % [facility] Monocytes/Leukocytes Auto (Bld) [Pure # fraction] 0.9 E9/L Normal 0.2 - 1.0 E9/L [facility] Neutrophils/100 WBC (Bld) 64.5 % Normal 36.0 - 75.0 % [facility] Neutrophils/Leukocytes Auto (Bld) [Pure # fraction] 7.1 E9/L Normal 2.0 - 7.5 E9/L [facility] HEMATOLOGYOrdered By: Neli rose on 10-13-2021 Erythrocyte distribution width (RBC) [Ratio] 16.0 % High 10.9 - 14.2 % [facility] Hematocrit (Bld) [Volume fraction] 44.7 % Normal 34.0 - 46.0 % [facility] Hemoglobin (Bld) [Mass/Vol] 15.6 g/dL Normal 12.0 - 16.0 gm/dL [facility] MCH (RBC) [Entitic mass] 32.7 pg Normal 27.0 - 34.0 pg [facility] MCHC (RBC) [Mass/Vol] 34.9 g/dL Normal 31.4 - 36.0 gm/dL [facility] MCV (RBC) [Entitic vol] 93.7 fL Normal 80.0 - 100.0 fL [facility] Platelet mean volume (Bld) [Entitic vol] 8.0 fL Normal 6.4 - 10.8 fL [facility] Platelets (Bld) [#/Vol] 383.0 E9/L Normal 150.0 - 500.0 E9/L [facility] RBC (Bld) [#/Vol] 4.8 E12/L Normal 4.3 - 5.9 E12/L [facility] WBC corrected for nucl RBC Auto (Bld) [#/Vol] 11.1 E9/L High 4.0 - 11.0 E9/L [facility] CHEMISTRYOrdered By: SYSTEM SYSTEM on 10-11-2021 Anion gap [Moles/Vol] 12 mmol/L Normal 6 - 16 mEq/L [facility] Calcium [Mass/Vol] 8.3 mg/dL Low 8.9 - 11. 1 mg/dL [facility] Chloride [Moles/Vol] 106 mmol/L Normal 101 - 1 11 mmol/L [facility] CO2 [Moles/Vol] 27 mmol/L Normal 21 - 31 mmol/L [facility] Creatinine [Mass/Vol] 0.6 mg/dL Normal 0.5 - 1.3 mg/dL [facility] GFR/1.73 sq M.predicted among blacks MDRD (S/P/Bld) [Vol rate/Area] mL/min/1.73 m2 Normal >=59mL/min/ 1.73 m2 [facility] Chem S GFR/1.73 sq M.predicted among non-blacks MDRD (S/P/Bld) [Vol rate/Area] mL/min/1.73 m2 Normal >=59mL/min/ 1.73 m2 [facility] Chem S Glucose [Mass/Vol] 82 mg/dL Normal 55 - 199 mg/dL [facility] Potassium [Moles/Vol] 3.5 mmol/L Normal 3.5 - 5.3 mmol/L [facility] Sodium [Moles/Vol] 141 mmol/L Normal 135 - 145 mmol/L [facility] Urea nitrogen [Mass/Vol] mg/dL Normal 5 - 21 mg/dL [facility] Urea nitrogen/Creatinine [Mass ratio] Unable to Calculate Invalid Interpretation Code 10 - 20 [facility] CHEMISTRYOrdered By: SYSTEM SYSTEM on 10-10-2021 Anion gap [Moles/Vol] 9 mmol/L Normal 6 - 16 mEq/L [facility] Chloride [Moles/Vol] 109 mmol/L Normal 101 - 1 11 mmol/L [facility] CO2 [Moles/Vol] 26 mmol/L Normal 21 - 31 mmol/L [facility] Potassium [Moles/Vol] 3.2 mmol/L Low 3.5 - 5.3 mmol/L [facility] Sodium [Moles/Vol] 141 mmol/L Normal 135 - 145 mmol/L [facility] HEMATOLOGYOrdered By: SYSTEM SYSTEM on 10-10-2021 Basophils/100 WBC (Bld) 0.2 % Normal 0.0 - 2.0 % [facility] Basophils/Leukocytes Auto (Bld) [Pure # fraction] 0.0 E9/L Normal 0.0 - 0.2 E9/L [facility] Eosinophils/100 WBC (Bld) 0.4 % Normal 0.0 - 8.0 % [facility] Eosinophils/Leukocytes Auto (Bld) [Pure # fraction] 0.0 E9/L Normal 0.0 - 0.5 E9/L [facility] Lymphocytes/100 WBC (Bld) 25.6 % Normal 14.0 - 50.0 % [facility] Lymphocytes/Leukocytes Auto (Bld) [Pure # fraction] 1.9 E9/L Normal 1.0 - 4.0 E9/L [facility] Monocytes/100 WBC (Bld) 5.8 % Normal 4.0 - 14.0 % [facility] Monocytes/Leukocytes Auto (Bld) [Pure # fraction] 0.4 E9/L Normal 0.2 - 1.0 E9/L [facility] Neutrophils/100 WBC (Bld) 68.0 % Normal 36.0 - 75.0 % [facility] Neutrophils/Leukocytes Auto (Bld) [Pure # fraction] 5.2 E9/L Normal 2.0 - 7.5 E9/L [facility] HEMATOLOGYOrdered By: Archie Hackett on 10-10-2021 Erythrocyte distribution width (RBC) [Ratio] 16.5 % High 10.9 - 14.2 % [facility] Hematocrit (Bld) [Volume fraction] 36.6 % Normal 34.0 - 46.0 % [facility] Hemoglobin (Bld) [Mass/Vol] 12.6 g/dL Normal 12.0 - 16.0 gm/dL [facility] MCH (RBC) [Entitic mass] 33.0 pg Normal 27.0 - 34.0 pg [facility] MCHC (RBC) [Mass/Vol] 34.4 g/dL Normal 31.4 - 36.0 gm/dL [facility] MCV (RBC) [Entitic vol] 95.9 fL Normal 80.0 - 100.0 fL [facility] Platelet mean volume (Bld) [Entitic vol] 7.9 fL Normal 6.4 - 10.8 fL [facility] Platelets (Bld) [#/Vol] 227.0 E9/L Normal 150.0 - 500.0 E9/L [facility] RBC (Bld) [#/Vol] 3.8 E12/L Low 4.3 - 5.9 E12/L [facility] WBC corrected for nucl RBC Auto (Bld) [#/Vol] 7.6 E9/L Normal 4.0 - 11.0 E9/L [facility] Reference Laboratory Testing Ordered By: Generated DomainUser on 10-10-2021 Gastrin [Mass/Vol] 150 pg/mL High 0-115pg/mL [facility] Comment on above: Result Comment: Siem [facility] Immulite 2000 Immunochemiluminometric assay (ICMA) Values obtained with different assay methods or kits cannot be used interchangeably. Results cannot be interpreted as absolute evidence of the presence or absence of malignant disease. Performed at: [facility] [id number] MD Yash Lewis BLOOD BANKOrdered By: Jules Torres on 10-09-2021 ABO/Rh Interp Positive Invalid Interpretation Code [facility] BB Subsection ABSC Gel Interp Negative (10/09/21 2:03 PM) Normal [facility] BB Subsection CHEMISTRYOrdered By: SYSTEM SYSTEM on 10-09-2021 Potassium [Moles/Vol] 3.0 mmol/L Low 3.5 - 5.3 mmol/L [facility] Anion gap [Moles/Vol] 10 mmol/L Normal 6 - 16 mEq/L [facility] Calcium [Mass/Vol] 8.0 mg/dL Low 8.9 - 11. 1 mg/dL [facility] Chloride [Moles/Vol] 103 mmol/L Normal 101 - 1 11 mmol/L [facility] CO2 [Moles/Vol] 27 mmol/L Normal 21 - 31 mmol/L [facility] Creatinine [Mass/Vol] 0.7 mg/dL Normal 0.5 - 1.3 mg/dL [facility] GFR/1.73 sq M.predicted among blacks MDRD (S/P/Bld) [Vol rate/Area] mL/min/1.73 m2 Normal >=59mL/min/ 1.73 m2 [facility] Chem S GFR/1.73 sq M.predicted among non-blacks MDRD (S/P/Bld) [Vol rate/Area] mL/min/1.73 m2 Normal >=59mL/min/ 1.73 m2 [facility] Chem S Glucose [Mass/Vol] 93 mg/dL Normal 55 - 199 mg/dL [facility] Magnesium [Mass/Vol] 1.3 mg/dL Normal 1.3 - 2 .4 mg/dL [facility] Sodium [Moles/Vol] 137 mmol/L Normal 135 - 145 mmol/L [facility] Urea nitrogen [Mass/Vol] 5 mg/dL Normal 5 - 21 mg/dL [facility] Urea nitrogen/Creatinine [Mass ratio] 7 mg/mg Low 10 - 20 [facility] Albumin [Mass/Vol] 4.0 g/dL Normal 3.3 - 5.0 gm/dL [facility] Albumin/Globulin [Mass ratio] 1.4 {ratio} Normal 1.1 - 2.2 [facility] ALP [Catalytic activity/Vol] 60 [iU]/d Normal 21 - 98 Int._Unit/L [facility] ALT No additional P-5'-P [Catalytic activity/Vol] 29 [iU]/d Normal 6 - 46 Int._Unit/L [facility] AST [Catalytic activity/Vol] 29 [iU]/d Normal 5 - 43 Int._Unit/L [facility] Bilirubin [Mass/Vol] 0.9 mg/dL Normal 0.0 - 1 .1 mg/dL [facility] Bilirubin.direct [Mass/Vol] 0.2 mg/dL Normal 0.1 - 0.4 mg/dL [facility] Bilirubin.indirect [Mass or moles/Vol] 0.7 mg/dL Normal 0.1 - 0.9 mg/dL [facility] Calcium [Mass/Vol] 9.3 mg/dL Normal 8.9 - 11. 1 mg/dL [facility] Creatinine [Mass/Vol] 0.7 mg/dL Normal 0.5 - 1.3 mg/dL [facility] GFR/1.73 sq M.predicted among blacks MDRD (S/P/Bld) [Vol rate/Area] mL/min/1.73 m2 Normal >=59mL/min/ 1.73 m2 [facility] Chem S GFR/1.73 sq M.predicted among non-blacks MDRD (S/P/Bld) [Vol rate/Area] mL/min/1.73 m2 Normal >=59mL/min/ 1.73 m2 [facility] Chem S Globulin (S) [Mass/Vol] 2.9 g/dL Normal 1.4 - 4.0 gm/dL [facility] Glucose [Mass/Vol] 121 mg/dL Normal 55 - 199 mg/dL [facility] Lipase [Catalytic activity/Vol] 21 U/L Normal 13 - 58 unit/L [facility] Protein [Mass/Vol] 6.9 g/dL Normal 6.0 - 7.8 gm/dL [facility] TSH Qn 2.68 m[IU]/L Normal 0.34 - 5.60 mcIU/mL [facility] Urea nitrogen [Mass/Vol] 5 mg/dL Normal 5 - 21 mg/dL [facility] Urea nitrogen/Creatinine [Mass ratio] 7 mg/mg Low 10 - 20 [facility] COAGULATIONOrdered By: Rosita Lorenzo on 10-09-2021 aPTT Coag (PPP) [Time] 28.4 s Normal 25.1 - 36.5 second(s) [facility] INR Coag (PPP) [Relative time] 1.1 {INR} Invalid Interpretation Code [facility] PT Coag (PPP) [Time] 13.1 s High 10.2 - 12.9 second(s) [facility] HEMATOLOGYOrdered By: SYSTEM SYSTEM on 10-09-2021 Basophils/100 WBC (Bld) 0.1 % Normal 0.0 - 2.0 % [facility] Basophils/Leukocytes Auto (Bld) [Pure # fraction] 0.0 E9/L Normal 0.0 - 0.2 E9/L [facility] Eosinophils/100 WBC (Bld) 0.5 % Normal 0.0 - 8.0 % [facility] Eosinophils/Leukocytes Auto (Bld) [Pure # fraction] 0.0 E9/L Normal 0.0 - 0.5 E9/L [facility] Lymphocytes/100 WBC (Bld) 27.9 % Normal 14.0 - 50.0 % [facility] Lymphocytes/Leukocytes Auto (Bld) [Pure # fraction] 2.5 E9/L Normal 1.0 - 4.0 E9/L [facility] Monocytes/100 WBC (Bld) 6.4 % Normal 4.0 - 14.0 % [facility] Monocytes/Leukocytes Auto (Bld) [Pure # fraction] 0.6 E9/L Normal 0.2 - 1.0 E9/L [facility] Neutrophils/100 WBC (Bld) 65.1 % Normal 36.0 - 75.0 % [facility] Neutrophils/Leukocytes Auto (Bld) [Pure # fraction] 5.8 E9/L Normal 2.0 - 7.5 E9/L [facility] Basophils/100 WBC (Bld) 0.7 % Normal 0.0 - 2.0 % [facility] Basophils/Leukocytes Auto (Bld) [Pure # fraction] 0.1 E9/L Normal 0.0 - 0.2 E9/L [facility] Eosinophils/100 WBC (Bld) 0.3 % Normal 0.0 - 8.0 % [facility] Eosinophils/Leukocytes Auto (Bld) [Pure # fraction] 0.0 E9/L Normal 0.0 - 0.5 E9/L [facility] Lymphocytes/100 WBC (Bld) 20.2 % Normal 14.0 - 50.0 % [facility] Lymphocytes/Leukocytes Auto (Bld) [Pure # fraction] 2.0 E9/L Normal 1.0 - 4.0 E9/L [facility] Monocytes/100 WBC (Bld) 7.3 % Normal 4.0 - 14.0 % [facility] Monocytes/Leukocytes Auto (Bld) [Pure # fraction] 0.7 E9/L Normal 0.2 - 1.0 E9/L [facility] Neutrophils/100 WBC (Bld) 71.5 % Normal 36.0 - 75.0 % [facility] Neutrophils/Leukocytes Auto (Bld) [Pure # fraction] 6.9 E9/L Normal 2.0 - 7.5 E9/L [facility] HEMATOLOGYOrdered By: Archie Hackett on 10-09-2021 Erythrocyte distribution width (RBC) [Ratio] 16.2 % High 10.9 - 14.2 % [facility] Hematocrit (Bld) [Volume fraction] 37.9 % Normal 34.0 - 46.0 % [facility] Hemoglobin (Bld) [Mass/Vol] 13.0 g/dL Normal 12.0 - 16.0 gm/dL [facility] MCH (RBC) [Entitic mass] 32.6 pg Normal 27.0 - 34.0 pg [facility] MCHC (RBC) [Mass/Vol] 34.2 g/dL Normal 31.4 - 36.0 gm/dL [facility] MCV (RBC) [Entitic vol] 95.2 fL Normal 80.0 - 100.0 fL [facility] Platelet mean volume (Bld) [Entitic vol] 7.9 fL Normal 6.4 - 10.8 fL [facility] Platelets (Bld) [#/Vol] 238.0 E9/L Normal 150.0 - 500.0 E9/L [facility] RBC (Bld) [#/Vol] 4.0 E12/L Low 4.3 - 5.9 E12/L [facility] WBC corrected for nucl RBC Auto (Bld) [#/Vol] 8.9 E9/L Normal 4.0 - 11.0 E9/L [facility] HEMATOLOGYOrdered By: Chanel Jaquez on 10-09-2021 Erythrocyte distribution width (RBC) [Ratio] 15.6 % High 10.9 - 14.2 % [facility] Hematocrit (Bld) [Volume fraction] 36.1 % Normal 34.0 - 46.0 % [facility] Hemoglobin (Bld) [Mass/Vol] 12.6 g/dL Normal 12.0 - 16.0 gm/dL [facility] MCH (RBC) [Entitic mass] 32.9 pg Normal 27.0 - 34.0 pg [facility] MCHC (RBC) [Mass/Vol] 35.0 g/dL Normal 31.4 - 36.0 gm/dL [facility] MCV (RBC) [Entitic vol] 94.2 fL Normal 80.0 - 100.0 fL [facility] Platelet mean volume (Bld) [Entitic vol] 7.8 fL Normal 6.4 - 10.8 fL [facility] Platelets (Bld) [#/Vol] 288.0 E9/L Normal 150.0 - 500.0 E9/L [facility] RBC (Bld) [#/Vol] 3.8 E12/L Low 4.3 - 5.9 E12/L [facility] WBC corrected for nucl RBC Auto (Bld) [#/Vol] 9.7 E9/L Normal 4.0 - 11.0 E9/L [facility] Reference Laboratory Testing Ordered By: Generated DomainUser on 10-09-2021 Calprotectin (Stl) [Mass/Mass] 19 ug/g Invalid Interpretation Code 0-120mcg/gm [facility] Comment on above: Result Comment: Conc entration Interpretation Follow-Up <16 - 50 ug/g Normal None >50 -120 ug/g Borderline Re-evaluate in 4-6 weeks >120 ug/g Abnormal Repeat as clinically indicated Performed at: [facility] [id number] MD Yash Lewis [facility]on SARS-CoV-2 (COVID-19) RNA SAMAN+probe Ql (Unsp spec) Not detected Normal NOT DETECTED [facility] Comment on above: Result Comment: This test is not yet approved or cleared by the [place] FDA. When there are no FDA-approved or cleared tests available, and other criteria are met, FDA can make tests available under an emergency access mechanism called an Emergency Use Authorization (EUA). The EUA for this test is supported by the [place] of Health and Human Service's (HHS's) declaration that circumstances exist to justify the emergency use of in vitro diagnostics for the detection and/or diagnosis of the virus that causes COVID-19. This EUA will remain in effect (meaning this test can be used) for the duration of the COVID-19 declaration justifying emergency of IVDs, unless it is terminated or revoked by FDA (after which the test may no longer be used). When diagnostic testing is negative, the possibility of a false negative should be considered in the context of a patient's recent exposures and the presence of clinical signs and symptoms consistent with SARS-CoV-2. Performed By: #### C DAVY, CMADM #### [facility] [address] [place] [address] Dr. Kingsley Bautista INFLUENZA A AND B AGon 10-03 [facility] SEE BELOW Normal [facility] Comment on above: Result Comment: Nega tive for Flu A protein angiten. Infection due to Flu A cannot be ruled out. Flu A angiten in the sample may be below the detection limit of the test. Performed By: #### C DAVY, CMADM #### [facility] [address] [place] [address] Dr. Kingsley Bautista INFLUBNEG SEE BELOW Normal [facility] Comment on above: Result Comment: Nega tive for Flu B protein antigen. Infection due to Flu B cannot be ruled out. Flu B antigen in the sample may be below the detection limit of the test. Performed By: #### C DAVY, HERMANDM #### [facility] [address] [place] [address] Dr. Kingsley Bautista INFLUENZA A AG Negative Normal NEGATIVE SEE COMMENT [facility] Comment on above: Performed By: #### C DAVY, CMADM #### [facility] [address] [place] [address] Dr. Kingsley Bautista INFLUENZA B AG Negative Normal NEGATIVE SEE COMMENT [facility] Comment on above: Performed By: #### C DAVY, HERMANDM #### [facility] [address] [place] [address] Dr. Kingsley Bautista INTERNAL CONTROLS Within Normal Limits Normal Wi thin Normal Limits [facility] Comment on above: Performed By: #### C DAVY, HERMANDM #### [facility] [address] [place] [address] Dr. Kingsley Bautista CBC AUTO DIFFon 09-27-2021 BASO # 0.0 103/ul Normal 0.0-0.1 [facility] Comment on above: Performed By: #### C BC #### [facility] [address] [place] [address] Dr. Kingsley Bautista Basophils/100 WBC (Bld) 0.2 % Normal 0.2-2.0 [facility] Comment on above: Performed By: #### C BC #### [facility] [address] [place] [address] Dr. Kingsley Bautista EO # 0.0 103/ul Normal 0.0-0.7 [facility] Comment on above: Performed By: #### C BC #### [facility] [address] [place] [address] Dr. Kingsley Bautista Eosinophils/100 WBC (Bld) 0.0 % Critically low 0.9-7.0 [facility] Comment on above: Performed By: #### C BC #### [facility] [address] [place] [address] Dr. Kingsley Bautista Erythrocyte distribution width (RBC) [Ratio] 13.4 % Normal 11.0-15.0 [facility] Comment on above: Performed By: #### C BC #### [facility] [address] [place] [address] Dr. Kingsley Bautista Hematocrit (Bld) [Volume fraction] 43.6 % Normal 36.0-48.0 [facility] Comment on above: Performed By: #### C BC #### [facility] [address] [place] [address] Dr. Kingsley Bautista Hemoglobin (Bld) [Mass/Vol] 15.1 g/dL Normal 12.0-16.0 [facility] Comment on above: Performed By: #### C BC #### [facility] [address] [place] [address] Dr. Kingsley Bautista IG # 0.03 10e3/ul Normal 0.00-0.03 [facility] Comment on above: Performed By: #### C BC #### [facility] [address] [place] [address] Dr. Kingsley Bautisat IG % 0.3 % Normal 0.0-0.5 [facility] Comment on above: Performed By: #### C BC #### [facility] [address] [place] [address] Dr. Kingsley Bautista LYMPH # 1.5 103/ul Normal 1.2-3.8 [facility] Comment on above: Performed By: #### C BC #### [facility] [address] [place] [address] Dr. Kingsley Bautista Lymphocytes/100 WBC (Bld) 13.6 % Critically low 20.5-60.0 [facility] Comment on above: Performed By: #### C BC #### [facility] [address] [place] [address] Dr. Kingsley Bautista MANUAL DIFF REQ NO Normal [facility] Comment on above: Performed By: #### C BC #### [facility] [address] [place] [address] Dr. Kingsley Bautista MCH (RBC) [Entitic mass] 32.1 pg Normal 26.7-34.0 [facility] Comment on above: Performed By: #### C BC #### [facility] [address] [place] [address] Dr. Kingsley Bautista MCHC (RBC) [Mass/Vol] 34.6 g/dL Normal 29.9-35.2 [facility] Comment on above: Performed By: #### C BC #### [facility] [address] [place] [address] Dr. Kingsley Bautista MCV (RBC) [Entitic vol] 92.8 fL Normal 81.0-99.0 [facility] Comment on above: Performed By: #### C BC #### [facility] [address] [place] [address] Dr. Kingsley Bautista MONO # 0.6 103/ul Normal 0.3-0.8 [facility] Comment on above: Performed By: #### C BC #### [facility] [address] [place] [address] Dr. Kingsley Bautista Monocytes/100 WBC (Bld) 5.7 % Normal 1.7-12.0 [facility] Comment on above: Performed By: #### C BC #### [facility] [address] [place] [address] Dr. Kingsley Bautista NEUT # 9.1 103/ul Critically high 1.4-6.5 [facility] Comment on above: Performed By: #### C BC #### [facility] [address] [place] [address] Dr. Kingsley Bautista Neutrophils/100 WBC (Bld) 80.2 % Critically high 43.0-75.0 [facility] Comment on above: Performed By: #### C BC #### [facility] [address] [place] [address] Dr. Kingsley Bautista Platelet mean volume (Bld) [Entitic vol] 9.0 fL Critically low 9.5-13.5 [facility] Comment on above: Performed By: #### C BC #### [facility] [address] [place] [address] Dr. Kingsley Bautista PLT 341 103/ul Normal 150-450 [facility] Comment on above: Performed By: #### C BC #### [facility] [address] [place] [address] Dr. Kingsley Bautista RBC 4.70 106/ul Normal 4.20-5.40 [facility] Comment on above: Performed By: #### C BC #### [facility] [address] [place] [address] Dr. Kingsley Bautista WBC 11.3 103/ul Critically high 4.0-11.0 [facility] Comment on above: Performed By: #### C BC #### [facility] [address] [place] [address] Dr. Kingsley Bautista ETHANOL (BLD ALC)on 09-28-19 AL[facility] NOTE NOTE: 80 mg/dl is th e legal limit for a blood alcohol level Normal [facility] Comment on above: Performed By: #### E TH, BMP #### [facility] [address] [place] [address] Dr. Kingsley Bautista Ethanol [Mass/Vol] 59 mg/dL Normal [facility] Comment on above: Performed By: #### E , BMP #### [facility] [address] [place] [address] Dr. Kingsley Bautista PROF CHEM 8 (BAS METB)on Anion gap [Moles/Vol] 16.4 mmol/L Normal [facility] Comment on above: Performed By: #### E , BMP #### [facility] [address] [place] [address] Dr. Kingsley Bautista Calcium [Mass/Vol] 9.1 mg/dL Normal 8.5-10.1 [facility] Comment on above: Performed By: #### E , BMP #### [facility] [address] [place] [address] Dr. Kingsley Bautista Chloride [Moles/Vol] 102 mmol/L Normal 98-107 [facility] Comment on above: Performed By: #### E , BMP #### [facility] [address] [place] [address] Dr. Kingsley Bautista CO2 [Moles/Vol] 25.6 mmol/L Normal 22.0-30.0 [facility] Comment on above: Performed By: #### E , BMP #### [facility] [address] [place] [address] Dr. Kingsley Bautista Creatinine [Mass/Vol] 0.78 mg/dL Normal 0.52-1.04 [facility] Comment on above: Performed By: #### E , BMP #### [facility] [address] [place] [address] Dr. Kingsley Bautista EGFR-AF BRAZILIAN >60 Normal >=60 [facility] Comment on above: Performed By: #### E , BMP #### [facility] [address] [place] [address] Dr. Kingsley Bautista EGFR-NON AF BRAZILIAN >60 Normal >=60 [facility] Comment on above: Performed By: #### E , BMP #### [facility] [address] [place] [address] Dr. Kingsley Bautista Glucose [Mass/Vol] 82 mg/dL Normal 74-106 [facility] Comment on above: Performed By: #### E , BMP #### [facility] [address] [place] [address] Dr. Kingsley Bautista Potassium [Moles/Vol] 3.0 mmol/L Critically low 3.4-5.0 [facility] Comment on above: Performed By: #### E , BMP #### [facility] [address] [place] [address] Dr. Kingsley Bautista Sodium [Moles/Vol] 140 mmol/L Normal 137-145 [facility] Comment on above: Performed By: #### E , BMP #### [facility] [address] [place] [address] Dr. Kingsley Bautista Urea nitrogen [Mass/Vol] 5.0 mg/dL Critically low 7.0-18.0 [facility] Comment on above: Performed By: #### E , BMP #### [facility] [address] [place] [address] Dr. Kingsley Bautista Urea nitrogen/Creatinine [Mass ratio] 6.4 mg/mg Normal [facility] Comment on above: Performed By: #### E , BMP #### [facility] [address] [place] [address] Dr. Kingsley Bautista CARDIAC MAURICE ADMITon 022 CK [Catalytic activity/Vol] 163 U/L Critically high 30-135 [facility] Comment on above: Performed By: #### C ANTHONY BHATTI #### [facility] [address] [place] [address] Dr. Kingsley Bautista CK.MB [Mass/Vol] 0.86 ng/mL Normal <=2.37 [facility] Comment on above: Performed By: #### C ANTHONY BHATTI #### [facility] [address] [place] [address] Dr. Kingsley Bautista HSTROP 4.2 pg/mL Normal 4.0-35.5 [facility] Comment on above: Result Comment: CUT- OFF POINTS HAVE BEEN ESTABLISHED BASED ON THE FOURTH UNIVERSAL DEFINITIONS OF MYOCARDIAL INFARCTION. THE UPPER REFERENCE LIMIT (URL) OF TROPONIN, DEFINED THE 99TH PERCENTILE OF cTnI DISTRIBUTION IN A REFERENCE POPULATION, HAS BEEN CONFIRMED THE DECISION THRESHOLD FOR LA DIAGNOSIS. Performed By: #### C DAVY, ANTHONY #### [facility] [address] [place] [address] Dr. Kingsley Bautista TREMAINE 44.0 ng/mL Normal <=61.5 [facility] Comment on above: Performed By: #### C ADVY, HERMANDM #### [facility] [address] [place] [address] Dr. Kingsley Bautista CBC AUTO DIFFon 09-09-2021 BASO # 0.0 103/ul Normal 0.0-0.1 [facility] Comment on above: Performed By: #### C DAVY, ANTHONY #### [facility] [address] [place] [address] Dr. Kingsley Bautista Basophils/100 WBC (Bld) 0.3 % Normal 0.2-2.0 [facility] Comment on above: Performed By: #### C DAVY, HERMANDM #### [facility] [address] [place] [address] Dr. Kingsley Bautista EO # 0.0 103/ul Normal 0.0-0.7 [facility] Comment on above: Performed By: #### C DAVY, HERMANDM #### [facility] [address] [place] [address] Dr. Kingsley Bautista Eosinophils/100 WBC (Bld) 0.5 % Critically low 0.9-7.0 [facility] Comment on above: Performed By: #### C DAVY, HERMANDM #### [facility] [address] [place] [address] Dr. Kingsley Bautista Erythrocyte distribution width (RBC) [Ratio] 14.1 % Normal 11.0-15.0 [facility] Comment on above: Performed By: #### C DAVY, HERMANDM #### [facility] [address] [place] [address] Dr. Kingsley Bautista Hematocrit (Bld) [Volume fraction] 42.2 % Normal 36.0-48.0 [facility] Comment on above: Performed By: #### C DAVY, HERMANDM #### [facility] [address] [place] [address] Dr. Kingsley Bautista Hemoglobin (Bld) [Mass/Vol] 14.4 g/dL Normal 12.0-16.0 [facility] Comment on above: Performed By: #### C MP, CMADM #### [facility] [address] [place] [address] Dr. Kingsley Bautista IG # 0.02 10e3/ul Normal 0.00-0.03 [facility] Comment on above: Performed By: #### C MP, CMADM #### [facility] [address] [place] [address] Dr. Kingsley Bautista IG % 0.3 % Normal 0.0-0.5 [facility] Comment on above: Performed By: #### C MP, CMADM #### [facility] [address] [place] [address] Dr. Kingsley Bautista LYMPH # 1.8 103/ul Normal 1.2-3.8 [facility] Comment on above: Performed By: #### C MP, CMADM #### [facility] [address] [place] [address] Dr. Kingsley Bautista Lymphocytes/100 WBC (Bld) 30.6 % Normal 20.5-60.0 [facility] Comment on above: Performed By: #### C MP, CMADM #### [facility] [address] [place] [address] Dr. Kingsley Bautista MANUAL DIFF REQ NO Normal [facility] Comment on above: Performed By: #### C MP, CMADM #### [facility] [address] [place] [address] Dr. Kingsley Bautista MCH (RBC) [Entitic mass] 31.7 pg Normal 26.7-34.0 [facility] Comment on above: Performed By: #### C MP, CMADM #### [facility] [address] [place] [address] Dr. Kingsley Bautista MCHC (RBC) [Mass/Vol] 34.1 g/dL Normal 29.9-35.2 [facility] Comment on above: Performed By: #### C MP, CMADM #### [facility] [address] [address] [address] Kingsley Bautista MCV (RBC) [Entitic vol] 93.0 fL Normal 81.0-99.0 [facility] Comment on above: Performed By: #### C MP, CMADM #### [facility] [address] [address] [address] Kingsley Bautista MONO # 0.4 103/ul Normal 0.3-0.8 [facility] Comment on above: Performed By: #### C MP, CMADM #### [facility] [address] [address] [address] Kingsley Bautista Monocytes/100 WBC (Bld) 7.2 % Normal 1.7-12.0 [facility] Comment on above: Performed By: #### C MP, CMADM #### [facility] [address] [place] [address] Dr. Kingsley Bautista NEUT # 3.7 103/ul Normal 1.4-6.5 [facility] Comment on above: Performed By: #### C MP, CMADM #### [facility] [address] [place] [address] Dr. Kingsley Bautista Neutrophils/100 WBC (Bld) 61.1 % Normal 43.0-75.0 [facility] Comment on above: Performed By: #### C MP, CMADM #### [facility] [address] [place] [address] Dr. Kingsley Bautista Platelet mean volume (Bld) [Entitic vol] 9.7 fL Normal 9.5-13.5 [facility] Comment on above: Performed By: #### C MP, CMADM #### [facility] [address] [place] [address] Dr. Kingsley Bautista PLT 314 103/ul Normal 150-450 [facility] Comment on above: Performed By: #### C MP, CMADM #### [facility] [address] [place] [address] Dr. Kingsley Bautista RBC 4.54 106/ul Normal 4.20-5.40 [facility] Comment on above: Performed By: #### C DAVY, HERMANDM #### [facility] [address] [place] [address] Dr. Kingsley Bautista WBC 6.0 103/ul Normal 4.0-11.0 [facility] Comment on above: Performed By: #### C DAVY, HERMANDM #### [facility] [address] [place] [address] Dr. Kingsley Bautista D-DIMERon 09-09-2021 D-DIMER <0.19 Normal 0.19-0.50 [facility] Comment on above: Performed By: #### C DAVY, HERMANDM #### [facility] [address] [place] [address] Dr. Kingsley Bautista D-DIMER COMMENTS SEE BELOW Normal [facility] Comment on above: Result Comment: Incr eases in D-Dimer concentration observed with thromboembolic events can be variable due to localization, size, and age of the thrombus. Therefore, a thromboembolic event cannot be diagnosed with certainty on the basis of the reference range. D-Dimers may also be elevated for a variety of disorders including: advanced age, , coronary disease, cancer, liver disease, infection, inflammation, hematoma, DIC, trauma, post-surgery, diabetes, thrombolytic or anticoagulant therapy, stress, and generalized hospitalization. Performed By: #### C DAVY, CMADM #### [facility] [address] [place] [address] Dr. Kingsely Bautista DRUG SCREEN RAPID (URINE)on 09-09-2021 AMP Positive Abnormal NEGATIVE [facility] Comment on above: Performed By: #### E RUR, DRUGRPD, PREGU #### [facility] [address] [place] [address] Dr. Kingsley Bautista BAR Negative Normal NEGATIVE [facility] Comment on above: Performed By: #### E RUR, DRUGRPD, PREGU #### [facility] [address] [place] [address] Dr. Kingsley Bautista BUP Negative Normal NEGATIVE [facility] Comment on above: Performed By: #### E RUR, DRUGRPD, PREGU #### [facility] [address] [place] [address] Dr. Kingsley Bautista BZO Negative Normal NEGATIVE [facility] Comment on above: Performed By: #### E RUR, DRUGRPD, PREGU #### [facility] [address] [place] [address] Dr. Kingsley Bautista CALLY Negative Normal NEGATIVE [facility] Comment on above: Performed By: #### E RUR, DRUGRPD, PREGU #### [facility] [address] [place] [address] Dr. Kingsley Bautista CUT-OFFS SEE BELOW Normal [facility] Comment on above: Result Comment: AMP (Amphetamine): 500ng/mL, BAR (Barbituates): 200 ng/mL, BZO (Benzodiazepines): 150 ng/mL, BUP (Buprenorphine): 10 ng/mL, CALLY (Cocaine): 150 ng/mL, mAMP (Methamphetamine): 500 ng/mL, MTD (Methadone): 200 ng/mL, OPI (Opiates): 100 ng/mL, OXY (Oxycodone): 100 ng/mL, PCP (Phencyclidine): 25 ng/mL, PPX (Propoxyphene): 300 ng/mL, THC (Cannabinoids): 50 ng/mL, TCA (Trycyclic Antidepressants): 300 ng/mL Performed By: #### E RUR, DRUGRPD, PREGU #### [facility] [address] [place] [address] Dr. Kingsley Bautista DRUG CUT HEADER DRUG CLASS TEST SYST EM CUT-OFF CONCENTRATIONS ARE FOLLOWS: Normal [facility] Comment on above: Performed By: #### E RUR, DRUGRPD, PREGU #### [facility] [address] [place] [address] Dr. Kingsley Bautista mAMP Negative Normal NEGATIVE [facility] Comment on above: Performed By: #### E RUR, DRUGRPD, PREGU #### [facility] [address] [place] [address] Dr. Kingsley Bautista MTD Negative Normal NEGATIVE [facility] Comment on above: Performed By: #### E RUR, DRUGRPD, PREGU #### [facility] [address] [place] [address] Dr. Kingsley Bautista OPI Negative Normal NEGATIVE [facility] Comment on above: Performed By: #### E RUR, DRUGRPD, PREGU #### [facility] [address] [place] [address] Dr. Kingsley Bautista OXY Negative Normal NEGATIVE [facility] Comment on above: Performed By: #### E RUR, DRUGRPD, PREGU #### [facility] [address] [place] [address] Dr. Kingsley Bautista PCP Negative Normal NEGATIVE [facility] Comment on above: Performed By: #### E RUR, DRUGRPD, PREGU #### [facility] [address] [place] [address] Dr. Kingsley Bautista PPX Negative Normal NEGATIVE [facility] Comment on above: Performed By: #### E RUR, DRUGRPD, PREGU #### [facility] [address] [place] [address] Dr. Kingsley Bautista TCA Negative Normal NEGATIVE [facility] Comment on above: Performed By: #### E RUR, DRUGRPD, PREGU #### [facility] [address] [place] [address] Dr. Kingsley Bautista THC Positive Abnormal NEGATIVE [facility] Comment on above: Performed By: #### E RUR, DRUGRPD, PREGU #### [facility] [address] [place] [address] Dr. Kingsley Bautista ER URINE PROFILEon 2 Bilirubin Ql (U) Negative Normal NEGATIVE [facility] Comment on above: Performed By: #### E RUR, DRUGRPD, PREGU #### [facility] [address] [place] [address] Dr. Kingsley Bautista Clarity (U) CLEAR Normal CLEAR [facility] Comment on above: Performed By: #### E RUR, DRUGRPD, PREGU #### [facility] [address] [place] [address] Dr. Kingsley Bautista Color (U) LT. YELLOW Normal YELLOW [facility] Comment on above: Performed By: #### E RUR, DRUGRPD, PREGU #### [facility] [address] [place] [address] Dr. Kingsley ROBERTSAHHenny A micrscopic examina tion will be performed if indicated. Normal [facility] Comment on above: Performed By: #### E RUR, DRUGRPD, PREGU #### [facility] [address] [place] [address] Dr. Kingsley Bautista Glucose Ql (U) Negative Normal NEGATIVE [facility] Comment on above: Performed By: #### E RUR, DRUGRPD, PREGU #### [facility] [address] [place] [address] Dr. Kingsley Bautista Hemoglobin Ql (U) Negative Normal NEGATIVE [facility] Comment on above: Performed By: #### E RUR, DRUGRPD, PREGU #### [facility] [address] [place] [address] Dr. Kingsley Bautista Ketones Ql (U) Negative Normal NEGATIVE [facility] Comment on above: Performed By: #### E RUR, DRUGRPD, PREGU #### [facility] [address] [place] [address] Dr. Kingsley Bautista LEUKOCYTES Negative Normal NEGATIVE [facility] Comment on above: Performed By: #### E RUR, DRUGRPD, PREGU #### [facility] [address] [place] [address] Dr. Kingsley Bautista Nitrite Ql (U) Negative Normal NEGATIVE [facility] Comment on above: Performed By: #### E RUR, DRUGRPD, PREGU #### [facility] [address] [place] [address] Dr. Kingsley Bautista pH (U) 6.5 [pH] Normal 5-9 [facility] Comment on above: Performed By: #### E RUR, DRUGRPD, PREGU #### [facility] [address] [place] [address] Dr. Kingsley Bautista SPEC GRAVITY <=1.005 Abnormal 1.005-<=1.0 25 [facility] Comment on above: Performed By: #### E RUR, DRUGRPD, PREGU #### [facility] [address] [place] [address] Dr. Kingsley Bautista UA PROTEIN Negative Normal NEGATIVE/ TRACE [facility] Comment on above: Performed By: #### E RUR, DRUGRPD, PREGU #### [facility] [address] [place] [address] Dr. Kingsley Bautista UR MICRO IND NOT INDICATED Normal [facility] Comment on above: Performed By: #### E RUR, DRUGRPD, PREGU #### [facility] [address] [place] [address] Dr. Kingsley Bautista Urobilinogen Qn (U) 0.2 {Patty'U}/dL Normal 0.2 - 1. 0 [facility] Comment on above: Performed By: #### E RUR, DRUGRPD, PREGU #### [facility] [address] [place] [address] Dr. Kingsley Bautista URon 09-09-2021 , QUAL Negative Normal NEGATIVE [facility] Comment on above: Performed By: #### E RUR, DRUGRPD, PREGU #### [facility] [address] [place] [address] Dr. Kingsley Bautista PROF 14(COMP METB)on 022 Albumin [Mass/Vol] 3.9 g/dL Normal 3.5-5.0 [facility] Comment on above: Performed By: #### C ANTHONY BHATTI #### [facility] [address] [place] [address] Dr. Kingsley Bautista Albumin/Globulin [Mass ratio] 1.2 {ratio} Normal [facility] Comment on above: Performed By: #### C DAVY, CMADM #### [facility] [address] [place] [address] Dr. Kingsley Bautista ALP [Catalytic activity/Vol] 67 U/L Normal 38-126 [facility] Comment on above: Performed By: #### C DAVY, HERMANDM #### [facility] [address] [place] [address] Dr. Kingsley Bautista ALT [Catalytic activity/Vol] 26 U/L Normal 9-52 [facility] Comment on above: Performed By: #### C MP, CMADM #### [facility] [address] [address] [address] Kingsley Bautista Anion gap [Moles/Vol] 11.3 mmol/L Normal Th e [facility] Comment on above: Performed By: #### C MP, CMADM #### [facility] [address] [place] [address] Dr. Kingsley Bautista AST [Catalytic activity/Vol] 38 U/L Critically high 14-36 [facility] Comment on above: Performed By: #### C MP, CMADM #### [facility] [address] [place] [address] Dr. Kingsley Bautista Bilirubin [Mass/Vol] 0.8 mg/dL Normal 0.2-1.3 [facility] Comment on above: Performed By: #### C DAVY, CMADM #### [facility] [address] [place] [address] Dr. Kingsley Bautista Calcium [Mass/Vol] 8.8 mg/dL Normal 8.4-10.2 [facility] Comment on above: Performed By: #### C DAVY, CMADM #### [facility] [address] [place] [address] Dr. Kingsley Bautista Chloride [Moles/Vol] 103 mmol/L Normal 98-107 [facility] Comment on above: Performed By: #### C MP, CMADM #### [facility] [address] [place] [address] Dr. Kingsley Bautista CO2 [Moles/Vol] 24.8 mmol/L Normal 22.0-30.0 [facility] Comment on above: Performed By: #### C MP, CMADM #### [facility] [address] [place] [address] Dr. Knigsley Bautista Creatinine [Mass/Vol] 0.86 mg/dL Normal 0.52-1.04 [facility] Comment on above: Performed By: #### C MP, CMADM #### [facility] [address] [place] [address] Dr. Kingsley Bautista EGFR-AF BRAZILIAN >60 Normal >=60 [facility] Comment on above: Performed By: #### C MP, CMADM #### [facility] [address] [place] [address] Dr. Kingsley Bautista EGFR-NON AF BRAZILIAN >60 Normal >=60 [facility] Comment on above: Performed By: #### C MP, CMADM #### [facility] [address] [address] [address] Kingsley Bautista Globulin (S) [Mass/Vol] 3.3 g/dL Normal [facility] Comment on above: Performed By: #### C MP, CMADM #### [facility] [address] [place] [address] Dr. Kingsley Bautista Glucose [Mass/Vol] 102 mg/dL Normal 74-106 [facility] Comment on above: Performed By: #### C MP, CMADM #### [facility] [address] [place] [address] Dr. Kingsley Bautista Potassium [Moles/Vol] 3.1 mmol/L Critically low 3.4-5.0 [facility] Comment on above: Performed By: #### C MP, CMADM #### [facility] [address] [place] [address] Dr. Kingsley Bautista Protein [Mass/Vol] 7.2 g/dL Normal 6.1-8.2 [facility] Comment on above: Performed By: #### C MP, CMADM #### [facility] [address] [place] [address] Dr. Kingsley Bautista Sodium [Moles/Vol] 136 mmol/L Critically low 137-145 [facility] Comment on above: Performed By: #### C MP, CMADM #### [facility] [address] [place] [address] Dr. Kingsley Bautista Urea nitrogen [Mass/Vol] 6.0 mg/dL Critically low 7.0-17.0 [facility] Comment on above: Performed By: #### C MP, CMADM #### [facility] [address] [place] [address] Dr. Kingsley Bautista Urea nitrogen/Creatinine [Mass ratio] 7.0 mg/mg Normal [facility] Comment on above: Performed By: #### C DAVY, HERMANDM #### [facility] [address] [place] [address] Dr. Kingsley Bautista PROTIMEon 09-09-2021 INR Coag (PPP) [Relative time] 1.01 {INR} Normal [facility] Comment on above: Performed By: #### C DAVY, HERMANDM #### [facility] [address] [place] [address] Dr. Kingsley Bautista INR GUIDELINES SEE BELOW Normal [facility] Comment on above: Result Comment: HERIEBRTO RED INR: 2.0 - 3.0 CONDITIONS NOT LISTED BELOW 2.5 - 3.5 FOR PROSTHETIC HEART VALVE REPLACEMENT 2.5 - 3.5 RECURRENT THROMBOSIS Performed By: #### C DAVY, ANTHONY #### [facility] [address] [place] [address] Dr. Kingsley Bautista PT Coag (PPP) [Time] 10.9 s Normal 9.0-11.6 [facility] Comment on above: Performed By: #### C DAVY, HERMANDM #### [facility] [address] [place] [address] Dr. Kingsley Bautista PTTon 09-09-2021 aPTT Coag (Bld) [Time] 25.9 s Normal 22.3-36.2 [facility] Comment on above: Performed By: #### C DAVY, HERMANDM #### [facility] [address] [place] [address] Dr. Kingsley Bautista TROPONIN, HIGH SENSITIVITYon 09-09-2021 HSTROP 7.7 pg/mL Normal 4.0-35.5 [facility] Comment on above: Result Comment: CUT- OFF POINTS HAVE BEEN ESTABLISHED BASED ON THE FOURTH UNIVERSAL DEFINITIONS OF MYOCARDIAL INFARCTION. THE UPPER REFERENCE LIMIT (URL) OF TROPONIN, DEFINED THE 99TH PERCENTILE OF cTnI DISTRIBUTION IN A REFERENCE POPULATION, HAS BEEN CONFIRMED THE DECISION THRESHOLD FOR LA DIAGNOSIS. Performed By: #### C DAVY, HERMANDM #### [facility] [address] [place] [address] Dr. Kingsley Bautista XR CHEST 1 Von 09-09-2021 XR CHEST 1 V EXAMINATION: XR CHES T 1 V HISTORY: CHEST PAIN, UNSPECIFIED COMPARISON: 10/09/2020 TECHNIQUE: AP portable] FINDINGS: LUNGS: No significant pulmonary parenchymal abnormalities. VASCULATURE: No increased pulmonary vasculature. PLEURA: No pneumothorax, effusion, or pleural thickening. CARDIAC: No cardiomegaly or cardiac silhouette abnormality. MEDIASTINUM: No visible mass or adenopathy. BONES: No fracture or visible bone lesion. OTHER: Negative. IMPRESSION: No acute disease. Electronically authenticated by: NELL LUNDBERG Date: 2021-09-09 11:09 Normal [facility] Vital Signs Date Time Vital Sign Value Performing Clinician Facility 11-01-2023 15:26-0400 Body height 152.4 cm Joo Cruz MD Work Phone: [facility] 11-01-2023 15:26-0400 Body mass index (BMI) [Ratio] 30.31 kg/m2 Bilaneta Cruz MD Work Phone: [facility] 11-01-2023 15:26-0400 Body weight 70.4 kg Bilal Butt Work Phone: [facility] 09-10-2023 09:06-0500 Body height 152.4 cm Butchal Butt Work Phone: [facility] 09-10-2023 09:06-0500 Body weight 65.77 kg Bilal Butt Work Phone: [facility] 08-10-2023 15:15-0500 Body weight 67.59 kg Huy Ascencio APRN.CNP Work Phone: [facility] 07-15-2023 17:10-0500 Body height 152.4 cm Elizabeth Piedra Other [facility] Other 07-15-2023 17:10-0500 Body mass index (BMI) [Ratio] 30.46 kg/m2 Elizabeth Piedra Other [facility] Other 07-15-2023 17:10-0500 Body temperature 98.6 [degF] Elizabeth Valdes [facility] Other 07-15-2023 17:10-0500 Body weight 70.76 kg Elizabeth Tadeo Other [facility] Other 07-15-2023 17:10-0500 Respiratory rate 18 /min Elizabeth Piedra Other [facility] Other 07-15-2023 17:10-0500 SaO2% (BldA) [Mass fraction] 99 % Elizabeth Piedra Other [facility] Other 07-02-2023 11:01-0500 Body height 152.4 cm Bilal Butt Work Phone: [facility] 07-02-2023 11:01-0500 Body weight 70.35 kg Bilal Butt Work Phone: [facility] 06-18-2023 07:58-0500 Body height 153.3 cm Huy Ascencio [employer]ER[employer] PRESIDENT Work Phone: [facility] 06-18-2023 07:58-0500 Body weight 67.5 kg Huy Ascencio [employer]ER DELIVERER[employer]CIAL [employer]STIT[employer] PRESIDENT Work Phone: [facility] 04-09-2023 12:51-0400 Body height 152.4 cm Reuben Mizanin PA-C Work Phone: [facility] 04-09-2023 12:51-0400 Body temperature 98.2 [degF] Reuben Mizanin PA-C Work Phone: [facility] 04-09-2023 12:51-0400 Body weight 58.42 kg Reuben Mizanin PA-C Work Phone: [facility] 04-09-2023 12:51-0400 Diastolic blood pressure 85 mm[Hg] Reuben Mizanin PA-C Work Phone: [facility] 04-09-2023 12:51-0400 Heart rate 106 /min Reuben Mizanin PA-C Work Phone: [facility] 04-09-2023 12:51-0400 SaO2% (BldA) [Mass fraction] 99 % Reuben Mizanin PA-C Work Phone: [facility] 04-09-2023 12:51-0400 Systolic blood pressure 120 mm[Hg] Reuben Mizanin PA-C Work Phone: [facility] 04-07-2023 09:27-0400 Body height 152.4 cm Maurice León MD Work Phone: [facility] 04-07-2023 09:27-0400 Body weight 57.15 kg Maurice León MD Work Phone: [facility] 03-05-2023 10:40-0400 Body temperature 98.8 [degF] Tristan Guallpa MD Work Phone: [facility] 03-05-2023 10:40-0400 Body weight 54.43 kg Tristan Guallpa MD Work Phone: [facility] 03-05-2023 10:40-0400 Diastolic blood pressure 91 mm[Hg] Tristan Guallpa MD Work Phone: [facility] 03-05-2023 10:40-0400 Heart rate 99 /min Tristan Guallpa MD Work Phone: [facility] 03-05-2023 10:40-0400 SaO2% (BldA) [Mass fraction] 100 % Tristan Guallpa MD Work Phone: [facility] 03-05-2023 10:40-0400 Systolic blood pressure 132 mm[Hg] Tristan Guallpa MD Work Phone: [facility] 12-24-2022 00:25-0400 Diastolic blood pressure 73 mm[Hg] Silas Durant [facility] 12-24-2022 00:25-0400 Heart rate 73 /min Silas Bhargav [facility] 12-24-2022 00:25-0400 Mean blood pressure 81 mm[Hg] Silas Bhargav [facility] 12-24-2022 00:25-0400 Respiratory rate 11 /min Silas Bhargav [facility] 12-24-2022 00:25-0400 SaO2% (BldA) [Mass fraction] 97 % Silas Bhargav [facility] 12-24-2022 00:25-0400 Systolic blood pressure 98 mm[Hg] Silas Bhargav [facility] 12-23-2022 23:30-0400 Diastolic blood pressure 71 mm[Hg] Silas Bhargav [facility] 12-23-2022 23:30-0400 Heart rate 70 /min Silas Bhargav [facility] 12-23-2022 23:30-0400 Mean blood pressure 78 mm[Hg] Silas Bhargav [facility] 12-23-2022 23:30-0400 Respiratory rate 14 /min Silas Bhargav [facility] 12-23-2022 23:30-0400 SaO2% (BldA) [Mass fraction] 98 % Silas Bhargav [facility] 12-23-2022 23:30-0400 Systolic blood pressure 93 mm[Hg] Silas Bhargav [facility] 12-23-2022 22:30-0400 Diastolic blood pressure 82 mm[Hg] Silas Bhargav [facility] 12-23-2022 22:30-0400 Heart rate 78 /min Silas Bhargav [facility] 12-23-2022 22:30-0400 Mean blood pressure 92 mm[Hg] Silas Durant [facility] 12-23-2022 22:30-0400 Respiratory rate 12 /min Silas Durant [facility] 12-23-2022 22:30-0400 SaO2% (BldA) [Mass fraction] 99 % Silas Durant [facility] 12-23-2022 22:30-0400 Systolic blood pressure 111 mm[Hg] Silas Durant [facility] 12-23-2022 22:12-0400 Heart rate 55 /min Silas Durant [facility] 12-23-2022 22:12-0400 Respiratory rate 18 /min Silas Durant [facility] 12-23-2022 19:38-0400 Body temperature 98.06 [degF] Silas Duratn [facility] 12-23-2022 19:38-0400 Heart rate 83 /min Silas Durant [facility] 12-23-2022 19:38-0400 Respiratory rate 22 /min Silas Durant [facility] 11-07-2022 18:00-0400 [facility] 18:00-0400 [facility] 11-07-2022 17:00-0400 [facility] 11-07-2022 17:00-0400 [facility] 11-07-2022 16:33-0400 Heart rate 89 /min [facility] 11-07-2022 16:33-0400 SaO2% (BldA) [Mass fraction] 100 % [facility] 11-07-2022 16:33-0400 Diastolic blood pressure 61 mm[Hg] [facility] 11-07-2022 16:33-0400 Mean blood pressure 78 mm[Hg] [facility] 11-07-2022 16:33-0400 Systolic blood pressure 111 mm[Hg] anniehenny [facility] 11-07-2022 16:32-0400 Body temperature 98.06 [degF] [facility] 11-07-2022 16:00-0400 [facility] 11-07-2022 16:00-0400 [facility]ly [facility]ing [facility] 11-07-2022 16:00-0400 [facility] 11-07-2022 11:41-0400 Heart rate 66 /min [facility] 11-07-2022 11:41-0400 SaO2% (BldA) [Mass fraction] 98 % [facility] 11-07-2022 11:39-0400 Body temperature 97.7 [degF] [facility] 11-07-2022 11:39-0400 Diastolic blood pressure 75 mm[Hg] annied [facility] 11-07-2022 11:39-0400 Mean blood pressure 87 mm[Hg] [facility] 11-07-2022 11:39-0400 Systolic blood pressure 112 mm[Hg] [facility] 11-07-2022 11:00-0400 Respiratory rate 16 /min [facility] 11-07-2022 08:25-0400 Heart rate 74 /min [facility] 11-07-2022 08:25-0400 SaO2% (BldA) [Mass fraction] 98 % [facility] 11-07-2022 08:24-0400 Body temperature 98.24 [degF] [facility] 11-07-2022 08:23-0400 Diastolic blood pressure 70 mm[Hg] [facility] 11-07-2022 08:23-0400 Mean blood pressure 81 mm[Hg] [facility] 11-07-2022 08:23-0400 Systolic blood pressure 103 mm[Hg] [facility] 11-07-2022 08:00-0400 Respiratory rate 18 /min [facility] 11-06-2022 20:29-0400 Heart rate 88 /min [facility] 11-06-2022 14:33-0400 Heart rate 65 /min [facility] 10-22-2022 10:20-0400 Blood Pressure Location Amara Palacio [facility] 10-22-2022 10:20-0400 Body temperature 97.7 [degF] Amara Palacio [facility] 10-22-2022 10:20-0400 Diastolic blood pressure 87 mm[Hg] Amara Palacio [facility] 10-22-2022 10:20-0400 Heart rate 105 /min Amara Palacio [facility] 10-22-2022 10:20-0400 Systolic blood pressure 123 mm[Hg] Amara Palacio [facility] 07-30-2022 12:40-0500 Diastolic blood pressure 64 mm[Hg] Vito ROBERTSON [facility] 07-30-2022 12:40-0500 Systolic blood pressure 102 mm[Hg] Padron SALAM [facility] 07-29-2022 05:30-0500 Diastolic blood pressure 85 mm[Hg] Mikal Radha [facility] 07-29-2022 05:30-0500 Heart rate 69 /min Mikal Radha [facility] 07-29-2022 05:30-0500 Mean blood pressure 96 mm[Hg] Mikal Radha [facility] 07-29-2022 05:30-0500 Respiratory rate 18 /min Mikal Radha [facility] 07-29-2022 05:30-0500 Systolic blood pressure 118 mm[Hg] Mikal Radha [facility] 07-29-2022 05:00-0500 Diastolic blood pressure 80 mm[Hg] Mikal Radha [facility] 07-29-2022 05:00-0500 Heart rate 99 /min Mikal Radha [facility] 07-29-2022 05:00-0500 Mean blood pressure 100 mm[Hg] Mikal Radha [facility] 07-29-2022 05:00-0500 Systolic blood pressure 141 mm[Hg] Mikal Radha [facility] 07-29-2022 04:30-0500 Diastolic blood pressure 84 mm[Hg] Mikal Radha [facility] 07-29-2022 04:30-0500 Heart rate 73 /min Mikal Radha [facility] 07-29-2022 04:30-0500 Mean blood pressure 95 mm[Hg] Mikal Radha [facility] 07-29-2022 04:30-0500 Respiratory rate 11 /min Mikal Radha [facility] 07-29-2022 04:30-0500 Systolic blood pressure 117 mm[Hg] Mikal Radha [facility] 07-29-2022 04:01-0500 SaO2% (BldA) [Mass fraction] 98 % Mikalalaina Garcia [facility] 07-29-2022 03:16-0500 Nursing Progress Note Reason Other: pt back from CT, 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 pt denies current needs. Mikal Garcia [facility] 07-29-2022 03:07-0500 Nursing Progress Note Reason Other: pt to CT at this time Mikal Radha [facility] 07-29-2022 02:51-0500 SaO2% (BldA) [Mass fraction] 99 % Mikalalaina Garcia [facility] 07-29-2022 02:24-0500 Body temperature 97.34 [degF] Mikal Radha [facility] 07-29-2022 02:24-0500 Heart rate 117 /min Mikal Radha [facility] 07-29-2022 02:24-0500 Respiratory rate 20 /min Mikal Radha [facility] 07-29-2022 02:24-0500 SaO2% (BldA) [Mass fraction] 96 % Mikal Radha [facility] 03-19-2022 14:03-0400 Blood Pressure Location Padron SALAM [facility] 03-19-2022 14:03-0400 Diastolic blood pressure 80 mm[Hg] Padron SALAM [facility] 03-19-2022 14:03-0400 Heart rate 82 /min Padron SALAM [facility] 03-19-2022 14:03-0400 Respiratory rate 16 /min Vito SALAM [facility] 03-19-2022 14:03-0400 Systolic blood pressure 117 mm[Hg] Padron SALAM [facility] 03-19-2022 08:05-0400 Body height 152.4 cm Brooks Lamb MD Work Phone: [facility] 03-19-2022 08:05-0400 Body weight 68.81 kg Brooks Lamb MD Work Phone: [facility] 03-19-2022 08:05-0400 Diastolic blood pressure 72 mm[Hg] Brooks Lamb MD Work Phone: [facility] 03-19-2022 08:05-0400 Heart rate 91 /min Brooks Lamb MD Work Phone: [facility] 03-19-2022 08:05-0400 Systolic blood pressure 108 mm[Hg] Brooks Lamb MD Work Phone: [facility] 02-19-2022 10:43-0400 Blood Pressure Location Amara Palacio [facility] 02-19-2022 10:43-0400 Body temperature 97.52 [degF] Amara Palacio [facility] 02-19-2022 10:43-0400 Diastolic blood pressure 72 mm[Hg] Amara Pia [facility] 02-19-2022 10:43-0400 Heart rate 98 /min Amara Pia [facility] 02-19-2022 10:43-0400 Systolic blood pressure 103 mm[Hg] Amaradeana TovarPia [facility] 02-09-2022 09:22-0400 Diastolic blood pressure 80 mm[Hg] Padron SALAM [facility] 02-09-2022 09:22-0400 Heart rate 54 /min Padron SALAM [facility] 02-09-2022 09:22-0400 Respiratory rate 16 /min Padron SALAM [facility] 02-09-2022 09:22-0400 SaO2% (BldA) [Mass fraction] 100 % Padron SALAM [facility] 02-09-2022 09:22-0400 Systolic blood pressure 110 mm[Hg] Padron SALAM [facility] 02-09-2022 09:10-0400 Diastolic blood pressure 75 mm[Hg] Padron SALAM [facility] 02-09-2022 09:10-0400 Heart rate 52 /min Padron SALAM [facility] 02-09-2022 09:10-0400 Respiratory rate 15 /min Padron SALAM [facility] 02-09-2022 09:10-0400 SaO2% (BldA) [Mass fraction] 99 % Padron SALAM [facility] 02-09-2022 09:10-0400 Systolic blood pressure 118 mm[Hg] Padron SALAM [facility] 02-09-2022 09:05-0400 Diastolic blood pressure 88 mm[Hg] Padron SALAM [facility] 02-09-2022 09:05-0400 Heart rate 58 /min Padron SALAM [facility] 02-09-2022 09:05-0400 Respiratory rate 16 /min Padron SALAM [facility] 02-09-2022 09:05-0400 SaO2% (BldA) [Mass fraction] 99 % Padron SALAM [facility] 02-09-2022 09:05-0400 Systolic blood pressure 116 mm[Hg] Padron SALAM [facility] 02-09-2022 08:57-0400 Body temperature 97.34 [degF] Padron SALAM [facility] 02-09-2022 08:55-0400 Respiratory rate 18 /min Padron SALAM [facility] 02-09-2022 08:50-0400 Respiratory rate 22 /min Padron SALAM [facility] 02-09-2022 07:55-0400 Blood Pressure Location Padron SALAM [facility] 02-09-2022 07:55-0400 Body temperature 96.98 [degF] Padron SALAM [facility] 02-02-2022 08:27-0400 Blood Pressure Location Amara Pia [facility] 02-02-2022 08:27-0400 Body temperature 97.34 [degF] Amara Palacio [facility] 02-02-2022 08:27-0400 Diastolic blood pressure 72 mm[Hg] Amara Palacio [facility] 02-02-2022 08:27-0400 Heart rate 96 /min Amara Palacio [facility] 02-02-2022 08:27-0400 SaO2% (BldA) [Mass fraction] 98 % Amara Palacio [facility] 02-02-2022 08:27-0400 Systolic blood pressure 102 mm[Hg] Amara Palacio [facility] 01-12-2022 14:27-0400 Hourly Rounding [facility] 01-12-2022 14:27-0400 Promise to Return [facility] 01-12-2022 14:00-0400 Diastolic blood pressure 88 mm[Hg] [facility] 01-12-2022 14:00-0400 Heart rate 55 /min [facility] 01-12-2022 14:00-0400 Respiratory rate 16 /min [facility] 01-12-2022 14:00-0400 Systolic blood pressure 128 mm[Hg] [facility] 01-12-2022 13:30-0400 Diastolic blood pressure 93 mm[Hg] [facility] 01-12-2022 13:30-0400 Heart rate 80 /min [facility] 01-12-2022 13:30-0400 Mean blood pressure 101 mm[Hg] [facility] 01-12-2022 13:30-0400 Respiratory rate 58 /min [facility] 01-12-2022 13:30-0400 SaO2% (BldA) [Mass fraction] 99 % [facility] 01-12-2022 13:30-0400 Systolic blood pressure 118 mm[Hg] [facility] 01-12-2022 13:00-0400 Hourly Rounding [facility] 01-12-2022 13:00-0400 Promise to Return [facility] 01-12-2022 12:27-0400 Hourly Rounding [facility] 01-12-2022 12:27-0400 Promise to Return [facility] 01-12-2022 12:26-0400 Diastolic blood pressure 92 mm[Hg] [facility] 01-12-2022 12:26-0400 Heart rate 73 /min [facility] 01-12-2022 12:26-0400 Respiratory rate 18 /min [facility] 01-12-2022 12:26-0400 Systolic blood pressure 121 mm[Hg] [facility] 01-12-2022 11:30-0400 Mean blood pressure 111 mm[Hg] [facility] 01-12-2022 09:43-0400 Body temperature 98.42 [degF] [facility] 01-12-2022 09:43-0400 Heart rate 96 /min [facility] 01-12-2022 09:43-0400 Respiratory rate 18 /min [facility] 12-24-2021 08:56-0400 Blood Pressure Location Vito ROBERTSON [facility] 12-24-2021 08:56-0400 Diastolic blood pressure 76 mm[Hg] Padron SALAM [facility] 12-24-2021 08:56-0400 Heart rate 99 /min Padron SALAM [facility] 12-24-2021 08:56-0400 Respiratory rate 16 /min Padron SALAM [facility] 12-24-2021 08:56-0400 Systolic blood pressure 138 mm[Hg] Padron SALAM [facility] 10-14-2021 18:00-0400 Hourly Rounding Nagi DRIVERLIN [facility] 10-14-2021 18:00-0400 Promise to Return Nagiwilla PITTSSLIN [facility] 10-14-2021 15:42-0400 Body temperature 98.6 [degF] Nagiwilla PITTSSLIN [facility] 10-14-2021 15:42-0400 Diastolic blood pressure 70 mm[Hg] Angiwilla PITTSSLIN [facility] 10-14-2021 15:42-0400 Heart rate 87 /min Nagi GEOVANI [facility] 10-14-2021 15:42-0400 Mean blood pressure 84 mm[Hg] Nagi GEOVANI [facility] 10-14-2021 15:42-0400 SaO2% (BldA) [Mass fraction] 98 % Nagi GEOVANI [facility] 10-14-2021 15:42-0400 Systolic blood pressure 110 mm[Hg] Nagi GEOVANI [facility] 10-14-2021 12:00-0400 Body temperature 98.06 [degF] Nagiwilla PITTSSLIN [facility] 10-14-2021 12:00-0400 Diastolic blood pressure 62 mm[Hg] Nagiwilla PITTSSLIN [facility] 10-14-2021 12:00-0400 Heart rate 97 /min Nagiwilla PITTSSLIN [facility] 10-14-2021 12:00-0400 Systolic blood pressure 97 mm[Hg] Nagiwilla PITTSSLIN [facility] 10-14-2021 08:16-0400 Body temperature 97.34 [degF] Nagiwilla PITTSSLIN [facility] 10-14-2021 08:16-0400 Diastolic blood pressure 71 mm[Hg] Nagiwilla PITTSSLIN [facility] 10-14-2021 08:16-0400 Heart rate 62 /min Nagiwilla PITTSSLIN [facility] 10-14-2021 08:16-0400 Mean blood pressure 83 mm[Hg] Nagiwilla PITTSSLIN [facility] 10-14-2021 08:16-0400 SaO2% (BldA) [Mass fraction] 97 % Nagiwilla PITTSSLIN [facility] 10-14-2021 08:16-0400 Systolic blood pressure 107 mm[Hg] Nagi GEOVANI [facility] 10-14-2021 02:10-0400 Blood Pressure Location Nagiwilla PITTSSLIN [facility] 10-14-2021 02:10-0400 Heart rate 107 /min Nagiwilla PITTSSLIN [facility] 10-14-2021 01:14-0400 Mean blood pressure 91 mm[Hg] Nagiwilla PITTSSLIN [facility] 10-14-2021 01:14-0400 Respiratory rate 15 /min Nagiwilla PITTSSLIN [facility] 10-14-2021 00:39-0400 Mean blood pressure 98 mm[Hg] Nagiwilla PITTSSLIN [facility] 10-14-2021 00:39-0400 Respiratory rate 15 /min Nagiwilla DRIVERLIN [facility] 10-13-2021 23:30-0400 Heart rate 101 /min Nagiwilla DRIVERLIN [facility] 10-13-2021 23:30-0400 Respiratory rate 16 /min Nagiwilla DRIVERLIN [facility] 10-12-2021 16:00-0400 Hourly Rounding [facility] 10-12-2021 16:00-0400 Promise to Return [facility] 10-12-2021 11:34-0400 Blood Pressure Location [facility] 10-12-2021 11:34-0400 Body temperature 98.42 [degF] [facility] 10-12-2021 11:34-0400 BP/Pulse Patient Position [facility] 10-12-2021 11:34-0400 Diastolic blood pressure 77 mm[Hg] [facility] 10-12-2021 11:34-0400 Heart rate 65 /min [facility] 10-12-2021 11:34-0400 Mean blood pressure 92 mm[Hg] [facility] 11:34-0400 Respiratory rate 18 /min [facility] 10-12-2021 11:34-0400 SaO2% (BldA) [Mass fraction] 98 % [facility]-12-2021 11:34-0400 Systolic blood pressure 123 mm[Hg] [facility] 10-12-2021 08:13-0400 [facility] 10-12-2021 08:13-0400 Body temperature 98.24 [degF] [facility] 10-12-2021 08:13-0400 BP/Pulse [facility] 10-12-2021 08:13-0400 Diastolic blood pressure 49 mm[Hg] [facility] 10-12-2021 08:13-0400 Heart rate 84 /min [facility] 10-12-2021 08:13-0400 Mean blood pressure 64 mm[Hg] [facility] 10-12-2021 08:13-0400 Respiratory rate 18 /min [facility] 10-12-2021 08:13-0400 SaO2% (BldA) [Mass fraction] 97 % [facility] 10-12-2021 08:13-0400 Systolic blood pressure 93 mm[Hg] [facility] 10-12-2021 01:00-0400 Blood Pressure [facility] 10-12-2021 01:00-0400 Body temperature 97.34 [degF] [facility] 10-12-2021 01:00-0400 BP/Pulse [facility] 10-12-2021 01:00-0400 Diastolic blood pressure 78 mm[Hg] [facility]agonz[facility]lez [facility] 10-12-2021 01:00-0400 Heart rate 59 /min [facility] 10-12-2021 01:00-0400 Mean blood pressure 91 mm[Hg] [facility]-12-[facility]21 01:00-0400 Respiratory rate 18 /min [facility] 10-12-2021 01:00-0400 SaO2% (BldA) [Mass fraction] 98 % [facility] 10-12-2021 01:00-0400 Systolic blood pressure 118 mm[Hg] [facility] 10-11-2021 21:00-0400 Mean blood pressure 98 mm[Hg] gonzález [facility] 10-11-2021 17:10-0400 Mean blood pressure 96 mm[Hg] [facility] 10-11-2021 01:00-0400 Mean blood pressure 79 mm[Hg] [facility] 10-10-2021 10:00-0400 Respiratory rate 10 /min gonzález [facility] 10-10-2021 09:00-0400 Respiratory rate 9 /min [facility] 10-10-2021 08:00-0400 Body temperature 98.06 [degF] [facility] 10-10-2021 08:00-0400 Respiratory rate 19 /min gonzález [facility] 10-10-2021 04:00-0400 Body temperature 98.24 [degF] [facility] 10-10-2021 00:00-0400 Body temperature 98.6 [degF] [facility] 10-09-2021 11:10-0400 Heart rate 60 /min [facility] 10-09-2021 10:58-0400 Nursing Progress Note Reason Other: PT TO FLOOR VIA Mónica PFEIFFER ON IV pump [facility] 10-09-2021 10:40-0400 Nursing Progress Note Reason Other: Patient and family updadted on admission and room [facility] 10-09-2021 08:56-0400 Heart rate 67 /min [facility] Encounters Encounter Date Encounter Type Care Provider Facility Start: 12-14-2023 End: 12-14-2023 ambulatory STEVENSON JAEGER Not Available Start: 12-12-2023 Refill Reuben hampton PA-C Work Phone: Internal [facility] Comment on above: Refill Request Start: 11-30-2023 [facility] Get Medical Advice Reuben Agrawal PA-C Work Phone: Internal [facility] Comment on above: Refill Start: 11-16-2023 End: 11-16-2023 ambulatory BROOK Bradley FELTER Not Available Start: 11-15-2023 End: 11-16-2023 ambulatory Erika J Sandra Facility:[facility] Start: 11-15-2023 End: 11-15-2023 Lab Drop off Erika Flores [facility] Start: 11-13-2023 Refill Chantal Humphrey APRN.[employer] Work Phone: Cardiology Comment on above: Refill Request Start: 11-12-2023 Telephone encounter Joo Cruz MD Work Phone: [facility] [place] Start: 11-01-2023 End: 11-02-2023 ambulatory JOO CRUZ Facility:[facility] Start: 11-01-2023 Encounter for other preprocedural examination [facility] Start: 11-01-2023 End: 11-01-2023 Postop follow up visit related to original px Joo Cruz MD Work Phone: [facility] [place] Comment on above: 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) Start: 11-01-2023 End: 11-01-2023 Patient encounter status General [facility] Start: 11-01-2023 End: 11-01-2023 Subsequent hospital visit by physician General [facility] Radiology Comment on above: Cervical spinal sten osis [M48.02] Start: 10-22-2023 ambulatory Joo mackenzie MD Work Phone: [facility] [place] Comment on above: Appeal Denied Start: 09-24-2023 Refill Joo makcenzie MD Work Phone: [facility] [place] Comment on above: Refill Request Start: 09-14-2023 ambulatory Reuben LIZ-C Work Phone: Internal Medicine [facility] Comment on above: Questions Start: 09-10-2023 End: 09-10-2023 ambulatory REUBEN AGRAWAL Facility:[facility] Start: 09-10-2023 End: 09-11-2023 ambulatory JOO CRUZ Facility:[facility] Start: 09-10-2023 End: 09-10-2023 [facility] Reuben LIZ-C Work Phone: Internal Medicine [facility] Comment on above: Palpitations (Primar y Dx); Bipolar 1 disorder (HCC); S/P cervical spinal fusion Start: 09-10-2023 End: 09-10-2023 Postop follow up visit related to original px Joo Cruz MD Work Phone: [facility] [place] Comment on above: 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) Start: 09-09-2023 ambulatory Joo mackenzie MD Work Phone: [facility] [place] Comment on above: Zanaflex Start: 09-09-2023 E-mail encounter hussein m caregiver Joo Cruz MD Work Phone: [facility] Start: 09-09-2023 Telephone encounter Reuben Agrawal PA-C Work Phone: Internal Medicine [facility] Comment on above: [facility] l- Occupational Therapy (Re-certification Note) Start: 09-06-2023 ambulatory Joo mackenzie MD Work Phone: [facility] [place] Comment on above: Medication Start: 09-01-2023 ambulatory Joo mackenzie MD Work Phone: [facility] [place] Comment on above: Question Start: 08-27-2023 Telephone encounter Joo Cruz MD Work Phone: [facility] [place] Start: 08-26-2023 ambulatory Reuben L Darlin anin PA-C Work Phone: Internal Medicine [facility] Comment on above: Plasma consent to re lease medical records Start: 08-26-2023 Telephone encounter Reuben L Mizanin PA-C Work Phone: Internal Medicine [facility] Comment on above: Appointment Start: 08-24-2023 End: 08-25-2023 ambulatory JOO CRUZ Facility:[facility] Start: 08-19-2023 Telephone encounter Joo Cruz MD Work Phone: Neurology Comment on above: Patient Update; Alicia ent Question Start: 08-12-2023 ambulatory Reuben L Darlin anin PA-C Work Phone: [facility] Comment on above: Clearance Start: 08-10-2023 End: 08-10-2023 ambulatory REUBEN L MIZANIN Facility:[facility] Start: 08-10-2023 End: 08-10-2023 Patient encounter procedure Huy Ascencio COOLER DELIVERER.FINANCIAL INSTITUTION PRESIDENT Work Phone: [facility] [place] Comment on above: Spinal stenosis of c ervical region (Primary Dx) Start: 08-06-2023 Telephone encounter Joo Cruz MD Work Phone: [facility] [place] Start: 08-04-2023 End: 08-04-2023 ambulatory REUBEN L MIZANIN Facility:[facility] Start: 08-04-2023 Encounter for other preprocedural examination TERESA PATEL [facility] Start: 08-03-2023 End: 08-03-2023 ambulatory REUBEN L MIZANIN Facility:[facility] Start: 08-03-2023 End: 08-03-2023 ambulatory REUBEN L MIZANIN Facility:[facility] Start: 08-03-2023 Encounter for other preprocedural examination TERESA PATEL [facility] Start: 08-02-2023 End: 08-02-2023 ambulatory SUROVI HAZARIKA Facility:[facility] Start: 07-29-2023 End: 07-30-2023 ambulatory REUBEN L MIZANIN Facility:[facility] Start: 07-29-2023 Encounter for other preprocedural examination TERESA PATEL [facility] Start: 07-26-2023 End: 07-26-2023 ambulatory BILAL MISTY BUTT Facility:[facility] Start: 07-16-2023 ambulatory UNKNOWN PROVIDER Facili ty:[facility] Start: 07-15-2023 End: 07-15-2023 ambulatory Elizabeth Piedra Other [facility] Other Start: 07-15-2023 Office outpatient ne w 20 minutes Elizabeth Piedra [facility] Start: 07-09-2023 End: 07-09-2023 ambulatory REUBEN L MIZANIN Facility:[facility] Start: 07-08-2023 End: 07-08-2023 ambulatory REUBEN L MIZANIN Facility:[facility] Start: 07-02-2023 End: 07-02-2023 ambulatory BILAL MISTY BUTT Facility:[facility] Start: 07-02-2023 End: 07-02-2023 Office outpatient new 30 minutes Bilal Mistyheidy Cruz MD Work Phone: [facility] [place] Comment on above: Spinal stenosis of c ervical region (Primary Dx) Start: 06-25-2023 End: 06-25-2023 ambulatory MAURICE LEÓN Facility:[facility] Start: 06-18-2023 End: 06-18-2023 ambulatory Reuben L Mizanin ABA Work Phone: Internal [facility] Comment on above: Question on results Start: 06-18-2023 End: 06-18-2023 Subsequent hospital visit by physician Xr [facility] General Radiology Comment on above: Cervicalgia [M54.2] Start: 06-18-2023 End: 06-18-2023 Patient encounter procedure Huy Ascencio COOLER DELIVERER.FINANCIAL INSTITUTION PRESIDENT Work Phone: [facility] [place] Comment on above: Cervicalgia (Primary Dx); 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; Radiculopathy, cervical region Start: 06-14-2023 Telephone encounter Reuben Agrawal PA-C Work Phone: [facility] Comment on above: Orders (OT recertifi cation note) Start: 06-03-2023 E-mail encounter hussein m caregiver Reuben Saeedanin PA-C Work Phone: [place] Start: 06-03-2023 Follow-up encounter Reuben Agrawal PA-C Work Phone: [facility] Comment on above: Follow up Start: 06-03-2023 Telephone encounter Reuben Agrawal PA-C Work Phone: [facility] Start: 06-02-2023 E-mail encounter hussein m caregiver [facility] Provider [facility] Start: 06-02-2023 Patient encounter procedure [facility] Provider Pain Management Comment on above: regarding appointmen t with pain mgmt Start: 06-02-2023 Telephone encounter Reuben Agrawal PA-C Work Phone: [address] [place] [address] Comment on above: Patient Question Start: 04-16-2023 End: 04-16-2023 ambulatory Nitza Bonifacio ARBORIST CLIMBER [facility] Social Work Comment on above: SDOH Start: 04-15-2023 End: 04-15-2023 ambulatory Ladiperri Calixtoi RT(R) Radiology Comment on above: Radiology MRI Start: 04-15-2023 Patient encounter procedure Ladi Stevens RT(R) [facility] Start: 04-12-2023 Telephone encounter Reubenalonso Agrawal PA-C Work Phone: [facility] Comment on above: Received Outside Med ical Records (Records received ) Start: 04-09-2023 End: 04-09-2023 ambulatory REUBEN AGRAWAL Facility:[facility] Start: 04-09-2023 Telephone encounter Reuben Agrawal PA-C Work Phone: Internal [facility] Comment on above: [facility] l Medical Record Request Joce Heller TRANSITION NURSE Medical Records Request [facility] Start: 04-09-2023 End: 04-09-2023 Office outpatient new 60 minutes Reuben Agrawal PA-C Work Phone: [facility] Comment on above: Abnormal EKG (Primar y Dx); RBBB; Palpitation; Jaw pain; TMJ disorder, unspecified; Cerebellar tonsillar ectopia (HCC); Neck pain; Upper back pain; History of peptic ulcer; Other irritable bowel syndrome; Bipolar 1 disorder (HCC); PTSD (post-traumatic stress disorder); DIMITRI (generalized anxiety disorder); MDD (major depressive disorder), recurrent episode, mild (HCC); Migraine without status migrainosus, not intractable, unspecified migraine type; Abnormal cervical Papanicolaou smear, unspecified abnormal pap finding; History of nephrolithiasis; Elevated blood pressure reading in office with diagnosis of hypertension; Encounter to establish care with new doctor Start: 04-07-2023 End: 04-07-2023 [facility] Maurice León MD Work Phone: [facility] Comment on above: Abnormal EKG (Primar y Dx); Encounter to establish care with new doctor; PTSD (post-traumatic stress disorder); DIMITIR (generalized anxiety disorder); MDD (major depressive disorder), recurrent episode, mild (HCC); Elevated blood pressure reading in office with diagnosis of hypertension; Cerebellar tonsillar ectopia (HCC); Prolonged Q-T interval on ECG; RBBB Start: 03-26-2023 ambulatory Zoraida cobb PA-C Work Phone: [facility] Comment on above: Echo and gabapentin Start: 03-26-2023 E-mail encounter fro m caregiver Zoraida Valle PA-C Work Phone: [facility] Start: 03-26-2023 Telephone encounter Zoraida menard PA-C Work Phone: [facility] Comment on above: Patient Update; Alicia ent Question; Orders Start: 03-18-2023 End: 03-18-2023 ambulatory [facility] Facility:[facility] Start: 03-18-2023 End: 03-18-2023 ambulatory Zoraida Perez Tori TRONCOSO Work Phone: [facility] Comment on above: Chiari I malformatio n (HCC) (Primary Dx); Chiari malformation type I (HCC) Start: 03-18-2023 End: 03-18-2023 Telemedicine consultation with patient Zoraida Chris Valle PA-C Work Phone: [facility] Start: 03-05-2023 End: 03-05-2023 ambulatory [facility] Kathryn [facility] Facility:[facility] Start: 03-05-2023 End: 03-05-2023 Patient encounter procedure Tristan Guallpa MD Work Phone: Neurology Comment on above: Chiari malformation type I (HCC) (Primary Dx); History of TMJ syndrome Start: 03-04-2023 End: 03-04-2023 ambulatory [facility] Start: 03-02-2023 Telephone encounter Tristan Guallpa MD Work Phone: Neurology Comment on above: Forms Start: 02-26-2023 End: 02-26-2023 [facility] Tristan Guallpa MD Work Phone: Neurology Comment on above: History of TMJ disor carlo (Primary Dx) Start: 02-22-2023 Telephone encounter Tristan Guallpa MD Work Phone: Neurology Comment on above: Forms Start: 02-04-2023 End: 02-05-2023 ambulatory [facility] Facility:[facility] Start: 02-01-2023 Emergency department patient visit Mikal Garcia Facility:[facility] Start: 01-15-2023 End: 01-15-2023 ambulatory TERESA PATEL Facility:[facility] Start: 01-01-2023 Telephone encounter Tristan Guallpa MD Work Phone: Neurology Comment on above: Patient Update Start: 12-23-2022 End: 12-24-2022 Emergency department patient visit Silas Durant Facility:[facility] Start: 12-23-2022 End: 12-24-2022 Emergency department patient visit Silas Durant [facility] Start: 12-21-2022 End: 12-21-2022 ambulatory TERESA PATEL Facility:[facility] Start: 11-26-2022 End: 11-27-2022 ambulatory Amara Palacio Facility:[facility] Start: 11-07-2022 ambulatory Miriam Ash Cavazos Fac ility:[id number] Start: 11-06-2022 End: 11-07-2022 Observation Trey Treadwell [facility] Start: 11-05-2022 End: 11-05-2022 Lab Drop off Erika Flores [facility] Start: 10-27-2022 End: 10-27-2022 Patient encounter procedure Amara Palacio [facility] Start: 10-22-2022 End: 10-22-2022 Patient encounter procedure Amara Palacio [facility] Start: 09-01-2022 Letter encounter Miriam Guevaraan Work Phone: [facility] Start: 08-25-2022 End: 08-25-2022 Lab Drop off Padron SALAM [facility] Start: 07-30-2022 End: 07-30-2022 Patient encounter procedure Padronlino TOLBERTAM [facility] Start: 07-29-2022 End: 07-29-2022 Emergency department patient visit Mikal SMarialuisa Garcia [facility] Start: 05-18-2022 End: 05-18-2022 ambulatory TERESA PATEL Facility:[facility] Start: 03-20-2022 End: 03-20-2022 Lab Drop off Padronlino ROBERTSON [facility] Start: 03-19-2022 End: 03-19-2022 Patient encounter procedure Brooks Lamb MD Work Phone: [facility] [place] Comment on above: Diarrhea of presumed infectious origin (Primary Dx) Start: 02-19-2022 End: 02-19-2022 Patient encounter procedure Amara Palacio [facility] Start: 02-09-2022 End: 02-09-2022 Patient encounter procedure Vito ROBERTSON [facility] Start: 02-02-2022 End: 02-02-2022 Patient encounter procedure Amara Palacio [facility] Start: 01-13-2022 End: 01-13-[address] DOCTOR HAN Facility:[facility] Start: 01-12-2022 End: 01-12-2022 Emergency department patient visit Pardeep Jo [facility] Start: 12-30-2021 End: 12-31-2021 ambulatory TERESA PATEL Facility:[facility] Start: 12-29-2021 End: 12-29-[address] ANTWAN GARCIA Facility:[facility] Start: 12-24-2021 End: 05-13-2022 Recurring Vito ROBERTSON [facility] Start: 12-24-2021 End: 12-24-2021 Patient encounter procedure Vito ROBERTSON [facility] Start: 12-23-2021 ambulatory TERESA PATEL Facility: [facility] Start: 12-03-2021 End: 12-03-2021 Patient encounter procedure Amara Palacio [facility] Start: 10-21-2021 ambulatory TERESA PATEL Facility: [facility] Start: 10-13-2021 End: 10-14-2021 Observation Nagi OLIVO [facility] Start: 10-09-2021 End: 10-12-2021 Evaluation and management of inpatient Trey Treadwell [facility] Start: 10-03-2021 End: 10-03-2021 ambulatory TERSEA PATEL Facility:[facility] Start: 09-27-2021 End: 09-27-[address] ANTWAN GARCIA Facility:[facility] Start: 09-09-2021 End: 09-09-[address] ANTWAN GARCIA Facility:[facility] Start: 05-19-2016 End: 05-23-2016 ambulatory [facility]OS [facility] Procedures Date Procedure Procedure Detail Performing Clinician Start: 08-04-2023 Antibody screen TERESA PATEL Comment on above: Order Comment: Specimen Type: BLOOD SPEC IMENOrdering Facility: [facility] Address: [address] [place] [address] Performed By: #### T [id number] ####CC MAIN BLOOD BANKCLIA [id number] [facility] [id number] [address] [place] Start: 07-26-2023 Follow-up visit Follow Up BILAL MISTY BUTT Start: 06-18-2023 Radex spine cervical 4 or 5 views Huy Ascencio APRN.CNP Work Phone: Start: 08-25-2022 Colonoscopy Amara Palacio Start: 02-09-2022 Esophagogastroduodenoscopy Vito ROBERTSON Start: 10-09-2021 Esophagogastroduodenoscopy Trey Stephenson i Start: 07-05-2001 Rupture of anterior cruciate ligament of left knee (disorder) Trey Treadwell Plan of Treatment Date Care Activity Detail Author Start: 2035 Shingles (RZV) Vaccine (1 of 2) Shingles (RZV) Vaccine (1 of 2) [facility] Start: 02-12-2033 Urine microalbumin profile DTaP,Tdap,Td Vaccine (8 - Td or Tdap) [facility] Start: 09-09-2024 Annual PCP Team Chronic Disease Visit Annual PCP Team Chronic Disease Visit [facility] Start: 08-03-2024 BP Controlled (<130/80) BP Controlled (<130/80) [facility] Start: 06-25-2024 BP Controlled (<130/80) BP Controlled (<130/80) [facility] Start: 04-09-2024 Annual PCP Team Chronic Disease Visit Annual PCP Team Chronic Disease Visit [facility] Start: 02-08-2024 End: 02-08-2024 Patient encounter procedure 02/08/2024 1:30 PM EDT Office Visit Cardiology [address] [place] [address] Franchesca Low MD [address] [place] [id number] 6 month f/u, rs from 01/30 Cardiology Comment on above: 6 month f/u, rs from 01/30 Start: 08-15-2023 Hepatitis B Vaccine (3 of 3 - 19+ 3-dose series) Hepatitis B Vaccine (3 of 3 - 19+ 3-dose series) [facility] Start: 03-05-2023 Covid-19 Vaccine ( season) Covid-19 Vaccine ( season) [facility] Start: 03-05-2023 Influenza vaccination INFLUENZA (#1) [facility] Start: 08-29-2022 COVID-19 VACCINE (3 - Pfizer series) COVID-19 VACCINE (3 - Pfizer series) [facility] Start: 07-05-2022 DEPRESSION ASSESSMENT DEPRESSION ASSESSMENT [facility] Start: 04-04-2022 Influenza vaccination Influenza Vaccine (#1) [facility] Start: 03-19-2022 End: 05-19-2022 CBC panel - Blood by Automated count CBC Lab Routine Diarrhea of presumed infectious origin Expected: 03/19/2022, Expires: 05/19/2022 [facility] Work Phone: Comment on above: Expected: 03/19/2022, Expires: 2 Start: 03-19-2022 End: 05-19-2022 Comprehensive metabolic 2000 panel - Serum or Plasma COMP METABOLIC PANEL Lab Routine Diarrhea of presumed infectious origin Expected: 03/19/2022, Expires: 05/19/2022 [facility] Work Phone: Comment on above: Expected: 03/19/2022, Expires: 2 Start: 03-05-2022 Influenza vaccination INFLUENZA (#1) [facility] Start: 2015 HPV TESTING HPV TESTING [facility] Start: 2015 Screening for malignant neoplasm of cervix HPV Testing [facility] Start: 07-03-2009 PAP TESTING PAP TESTING [facility] Start: 07-03-2009 Screening for malignant neoplasm of cervix Pap Testing [facility] Start: 07-03-2007 Screening for malignant neoplasm of cervix Cervical Cancer Screening [facility] Start: 2006 Screening for malignant neoplasm of cervix Pap Smear [facility] Start: 02-18-2004 Urine microalbumin profile [facility] Start: 2003 BP Controlled (<130/80) BP Controlled (<130/80) [facility] Start: 2003 HEPATITIS C SCREENING HEPATITIS C SCREENING [facility] Start: 2003 Hepatitis C screening [facility] Start: 2003 Tetanus + diphtheria + acellular pertussis vaccine (product) Tdap Booster [facility] Start: 02-18-2000 HIV screening HIV Test [facility] Start: 1997 Adult depression screening assessment DEPRESSION SCREENING [facility] Start: 1991 Pneumococcal vaccination [facility] Start: 1985 COVID-19 VACCINE (#1) COVID-19 VACCINE (#1) [facility] Start: 1985 HEPATITIS B (1 of 3 - 3-dose series) HEPATITIS B (1 of 3 - 3-dose series) [facility] Start: 1985 Hepatitis B Vaccine (1 of 3 - 3-dose series) Hepatitis B Vaccine (1 of 3 - 3-dose series) [facility] Start: 1985 Screening for malignant neoplasm of breast Mammography shared decision making (35 through 39 years) [facility] Calprotectin [Mass/m ass] in Stool CALPROTECTIN,FECAL Lab Routine Diarrhea of presumed infectious origin Ordered: 03/19/2022 [facility] Work Phone: Comment on above: Ordered: 03/19/2022 Clostridioides diffi cile toxin genes [Presence] in Stool by SAMAN with probe detection C. DIFFICILE PCR Lab Routine Diarrhea of presumed infectious origin Ordered: 03/19/2022 [facility] Work Phone: Comment on above: Ordered: 03/19/2022 End: 07-31-2024 Ct cervical spine w/o contrast material CT CERVICAL SPINE WO IVCON Radiology Routine Spinal stenosis of cervical region 1 Occurrences starting 07/02/2023 until 07/31/2024 [facility] Work Phone: Comment on above: 1 Occurrences starting 07/02/2023 until 07/31/2024 End: 04-09-2024 Echocardiography ECHO Cardiology Routine Abnormal EKG 1 Occurrences starting 04/09/2023 until 04/09/2024 [facility] Work Phone: Comment on above: 1 Occurrences starting 04/09/2023 until 04/09/2024 Gastrointestinal pathogens panel - Stool by Culture STOOL CULTURE/EIA Microbiology Routine Diarrhea of presumed infectious origin Ordered: 03/19/2022 [facility] Work Phone: Comment on above: Ordered: 03/19/2022 Giardia lamblia+Cryptosporidium sp Ag [Presence] in Stool by Immunoassay CRYPTOSPORIDIUM AND GIARDIA ANTIGENS BY EIA Microbiology Routine Diarrhea of presumed infectious origin Ordered: 03/19/2022 [facility] Work Phone: Comment on above: Ordered: 03/19/2022 End: 04-16-2024 Mri spinal canal cervical w/o contrast matrl MRI CERVICAL SPINE WO IVCON Radiology Routine Chiari I malformation (HCC) 1 Occurrences starting 03/18/2023 until 04/16/2024 [facility] Work Phone: Comment on above: 1 Occurrences starting 03/18/2023 until 04/16/2024 SPINE INTERVENTION PROCEDURE SPINE INTERVENTION PROCEDURE Procedures Routine Cervicalgia 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 Radiculopathy, cervical region Ordered: 06/18/2023 [facility] Work Phone: Comment on above: Ordered: 06/18/2023 XR Cervical spine AP and Lateral XR CERV GENERAL 2V AP/LAT Radiology Routine Cervical spinal stenosis Pre-op testing 11/01/2023 3:18 PM EDT [facility] Work Phone: [facility] PRASANNA [place] [facility] Immunizations Immunization Date Immunization Notes Care Provider Fa [facility] 06-17-2023 hepatitis B vaccine, adult dosage Joo Cruz MD Work Phone: [facility] 03-16-2023 hepatitis B vaccine, adult dosage Joo Cruz MD Work Phone: [facility] 02-14-2023 Influenza, injectable, [facility]in [place] Canine Kidney, preservative free, quadrivalent Joo Cruz MD Work Phone: [facility] 02-12-2023 hepatitis B vaccine, adult dosage Joo Cruz MD Work Phone: [facility] 02-12-2023 tetanus toxoid, reduced diphtheria toxoid, and acellular pertussis vaccine, adsorbed Joo Cruz MD Work Phone: [facility] 07-04-2022 SARS-CoV-2 mRNA (qvyosluqddb-sinw-puv belkis) vaccine Padron [facility] Comment on above: Result Comment: 2022: TPVALL 06-13-2022 SARS-CoV-2 mRNA (bzzqgrappzi-pseu-vzm belkis) vaccine [facility] Comment on above: Result Comment: 2022: TPVALL 02-03-2011 tetanus toxoid, reduced diphtheria toxoid, and acellular pertussis vaccine, adsorbed Trey Treadwell [facility] Comment on above: Reason for Medicatio n: Other (see comment) Reason for Medicatio n: Other (see comment) 09-09-2010 influenza virus vaccine, split virus (incl. purified surface antigen) Elizabeth Piedra Other [facility] Other 02-14-1997 measles, mumps and rubella virus vaccine Vito TOLBERT [facility] 02-07-1990 diphtheria, tetanus toxoids and pertussis vaccine Joo Cruz MD Work Phone: [facility] 11-07-1989 trivalent poliovirus vaccine, live, oral Joo Cruz MD Work Phone: [facility] 04-24-1987 haemophilus influenzae type b vaccine, conjugate unspecified formulation Joo Cruz MD Work Phone: [facility] 04-24-1987 Hib, unspecified formulation Vito ROBERTSON [facility] 01-22-1987 diphtheria, tetanus toxoids and pertussis vaccine Joo Cruz MD Work Phone: [facility] 11-19-1986 trivalent poliovirus vaccine, live, oral Joo Cruz MD Work Phone: [facility] 06-18-1986 measles, mumps and rubella virus vaccine Padron [facility] 1985 diphtheria, tetanus toxoids and pertussis vaccine Joo Cruz MD Work Phone: [facility] 1985 diphtheria, tetanus toxoids and pertussis vaccine Joo Cruz MD Work Phone: [facility] 1985 trivalent poliovirus vaccine, live, oral Joo Cruz MD Work Phone: [facility] 1985 diphtheria, tetanus toxoids and pertussis vaccine Joo Cruz MD Work Phone: [facility] 1985 trivalent poliovirus vaccine, live, oral Joo Cruz MD Work Phone: [facility] NEGATED: Highlighted row has not occurred!03-19-2022 influenza virus vaccine, unspecified formulation [facility] NEGATED: Highlighted row has not occurred!02-19-2022 influenza virus vaccine, unspecified formulation Amara Palacio [facility] Payers Date Payer Category Payer Unknown [facility] [place] MEDICA[employer] [id number] 2016-Present [id number] 2014 Medicaid [id number] 1985 Unknown [id number] 1985 Unknown [id number] 1985 Unknown [id number]3 1985 Unknown [id number] 1985 Unknown [id number] 2.840.1.860984.3.579.2.59 1985 Unknown [id number] 2.840.1.321877.3.579.2.59 1985 Unknown [id number] .[id number] 1985 Unknown [id number] 2.840.1.682231.3.579.2.593 1985 Unknown [id number] 1985 Unknown [id number] 2.840.1.572287.3.579.2.593 1985 Unknown [id number] 1985 Unknown [id number] 1985 Unknown [id number] 1985 Unknown [id number] .[id number] 1985 Unknown [id number] 1985 Unknown [id number] .840.1.137421.3.579.2.72 1985 Unknown [id number] 1985 Unknown [id number] 1985 Unknown [id number] 1959 Medicaid [id number] 1959 Self-pay Social History Date Type Detail Facility Start: 03-20-2020 End: 08-02-2023 Tobacco smoking status Ex-smoker (finding) [facility] Comment on above: Patient vapes 1 cart erage a day quit over a month ag o Start: 12-21-2022 End: 01-15-2023 Sex Assigned At Female [facility] Start: 11-13-2021 Tobacco smoking status Heavy t obacco smoker (finding) [facility] Comment on above: Patient vapes 1 cart erage a day Tobacco smoking status Never [facility] Comment on above: quit over a month ag o End: 07-12-2023 History of tobacco use Current smoker [facility] End: 07-12-2023 History of tobacco use Cigarette Smoker [facility] Start: 03-19-2022 End: 01-15-2023 Cigarettes smoked current (pack per day) - Reported 0.5 [facility] Start: 03-19-2022 End: 08-02-2023 Tobacco use and exposure Smokeless tobacco non-user [facility] Start: 03-19-2022 End: 11-01-2023 Alcohol intake Current drinker of alcohol (finding) [facility] Start: 1985 Sex Assigned At Not on file C [facility] Start: 03-09-2022 End: 03-19-2022 Exposure to SARS-CoV-2 (event) Not sure [facility] Start: 05-02-2016 End: 07-02-2023 Tobacco smoking status NHIS Smokes tobacco daily [facility] Work Phone: Start: 05-02-2016 Alcohol Comment rare/social [facility] Start: 1985 [facility] Start: 03-18-2023 Gender identity Identifies as female gender (finding) [facility] Start: 04-08-2023 Sexual orientation Bisexual (finding ) [facility] Has the [employer], [employer], oil, or water company threatened to shut off services in your home in past 12Mo Yes [facility] Are you now , , , , never or living with a partner? Never [facility] How often to you hav e a drink containing alcohol? 2-4 times a month [facility] How hard is it for y ou to pay for the very basics like food, housing, medical care, and heating Very hard [facility] Do you feel stress - tense, restless, nervous, or anxious, or unable to sleep at night because your mind is troubled all the time - these days [OSQ] Very much [facility] (I/We) worried carley er (my/our) food would run out before (I/we) got money to buy more. Often true [facility] At any time in the p ast 12 months, were you homeless or living in prison [including now]? No [facility] Start: 06-22-2023 Sexual orientation Choose not to dis close [facility] Medical Equipment Procedure Code Equipment Code Equipment Origin al Text Equipment Identifier Dates FDA Start: 10-09-2021 FDA Start: 10-09-2021 FDA Start: 10-09-2021 FDA Start: 10-09-2021 FDA Start: 10-09-2021 FDA Start: 10-09-2021 Unknown Unknown 10/09/21 Non Biological Unknown FDA Start: 10-09-2021 FDA Start: 10-09-2021 Unknown Unknown 10/09/21 Non Biological Unknown FDA Start: 10-09-2021 FDA Start: 10-09-2021 Unknown Unknown 10/09/21 Non Biological Unknown FDA Start: 10-09-2021 FDA Start: 10-09-2021 Unknown Unknown 10/09/21 Non Biological Unknown FDA Start: 10-09-2021 FDA Start: 10-09-2021 Unknown Unknown 10/09/21 Non Biological Unknown FDA Start: 10-09-2021 FDA Start: 10-09-2021 Unknown Unknown 10/09/21 Non Biological Unknown FDA Start: 10-09-2021 FDA Start: 10-09-2021 Unknown Unknown 10/09/21 Non Biological Unknown FDA Start: 10-09-2021 FDA Start: 10-09-2021 Unknown Unknown 10/09/21 Non Biological Unknown FDA Start: 10-09-2021 FDA Start: 10-09-2021 Unknown Unknown 10/09/21 Non Biological Unknown FDA Start: 10-09-2021 FDA Start: 10-09-2021 Unknown Unknown 10/09/21 Non Biological Unknown FDA Start: 10-09-2021 FDA Start: 10-09-2021 Unknown Unknown 10/09/21 Non Biological Unknown FDA Start: 10-09-2021 FDA Start: 10-09-2021 Unknown Unknown 10/09/21 Non Biological Unknown FDA Start: 10-09-2021 FDA Start: 10-09-2021 Unknown Unknown 10/09/21 Non Biological Unknown FDA Start: 10-09-2021 FDA Start: 10-09-2021 Unknown Unknown 10/09/21 Non Biological Unknown FDA Start: 10-09-2021 FDA Start: 10-09-2021 Unknown Unknown 10/09/21 Non Biological Unknown FDA Start: 10-09-2021 FDA Start: 10-09-2021 Unknown Unknown 10/09/21 Non Biological Unknown FDA Start: 10-09-2021 FDA Start: 10-09-2021 Unknown Unknown 10/09/21 Non Biological Unknown FDA Start: 10-09-2021 FDA Start: 10-09-2021 Spacer Avs 4d 6m m Spinal Bone Plug - [id number] Start: 08-24-2023 Schoolcraft Plate, 1 Level, Sz 18mm [id number] Start: 08-24-2023 Schoolcraft Self Start ing Variable Screw Size 4mm X 12mm [id number] Start: 08-24-2023 Unknown Unknown 10/09/21 Non Biological Unknown FDA Start: 10-09-2021 FDA Start: 10-09-2021 Functional Status Date Assessment Result Facility 12-23-2022 Functional Status N/A [facility] 11-06-2022 Functional Status N/A [facility] 11-06-2022 Functional Status [facility] 10-22-2022 Functional Status N/A [facility] 07-30-2022 Functional Status N/A [facility] 07-29-2022 Functional Status Yes [facility] 03-19-2022 Functional Status N/A [facility] 02-19-2022 N/A [facility] 02-09-2022 Functional Status N/A [facility] 02-02-2022 Functional Status N/A [facility] 01-12-2022 Functional Status N/A [facility] 12-24-2021 Functional Status N/A [facility] Clinical Notes 01-25-2003 to 12-13-2023 Telephone Encounter - Reuben Agrawal PA-C - 12/13/2023 4:44 PM EDTTelephone Encounter - Reuben Agrawal PA-C - 12/13/2023 4:44 PM EDTBJoo mackenzie MD - 11/01/2023 3:21 PM EDT Note Date & Type Note Facility 12-13-2023 Telephone encounter Note Rx sent as requested. [facility] 12-13-2023 Miscellaneous Notes Rx sent as requested. Patient is requesting a medication refill. Last appointment: 09/10/2023 Next scheduled appointment: Requested Prescriptions Pending Prescriptions Disp Refills celecoxib (CELEBREX) 200 mg capsule [Pharmacy Med Name: CELECOXIB 200 MG CAPSULE] 30 capsule 5 Sig: take 1 capsule by mouth every day Lauren Hernandez MA December 13, 2023 7:35 AM documented in this encounter [facility] 12-13-2023 Telephone encounter Note Patient is requesting a medication refill. Last appointment: 09/10/2023 Next scheduled appointment: Requested Prescriptions Pending Prescriptions Disp Refills celecoxib (CELEBREX) 200 mg capsule [Pharmacy Med Name: CELECOXIB 200 MG CAPSULE] 30 capsule 5 Sig: take 1 capsule by mouth every day Lauren Hernandez MA December 13, 2023 7:35 AM [facility] 11-30-2023 Telephone encounter Note Rx prescribed by neurosurg. Please forward to neurosurg as she has maintained care with that team. Reuben Agrawal PA-C [facility] 11-30-2023 Miscellaneous Notes Rx prescribed by neurosurg. Please forward to neurosurg as she has maintained care with that team. Reuben Agrawal PA-C [facility]: 09/10/23 Last ov: 04/09/23 Next ov: none Patient requests via MyChart refills as follows: Requested Prescriptions Pending Prescriptions Disp Refills gabapentin (NEURONTIN) 100 mg capsule 120 capsule 2 Sig: TAKE 2 CAPSULES BY MOUTH TWICE A DAY FOR 90 DAYS Please review and advise. Nilda Herndon MA documented in this encounter [facility] 11-30-2023 Telephone encounter Note [facility]: 09/10/23 Last ov: 04/09/23 Next ov: none Patient requests via MyChart refills as follows: Requested Prescriptions Pending Prescriptions Disp Refills gabapentin (NEURONTIN) 100 mg capsule 120 capsule 2 Sig: TAKE 2 CAPSULES BY MOUTH TWICE A DAY FOR 90 DAYS Please review and advise. Nilda Herndon MA T [facility] 11-16-2023 Telephone encounter Note Received request for refill of the following medications: Requested Prescriptions Pending Prescriptions Disp Refills propranolol ER (INDERAL LA) 80 mg 24 hr capsule [Pharmacy Med Name: PROPRANOLOL ER 80 MG CAPSULE] 90 capsule 1 Sig: take 1 capsule by mouth every day Patient requested a 90 day refill. Pharmacy verified and updated accordingly. Patient was last seen in cardiology office: 08/02/2023. Upcoming appointment scheduled: na. Labs: Hemoglobin (g/dL) Date Value 08/25/2023 9.5 07/07/2010 12.8 Hematocrit (%) Date Value 08/25/2023 30.2 07/07/2010 37.7 WBC (k/uL) Date Value 08/25/2023 14.23 07/07/2010 9.73 Platelet Count (k/uL) Date Value 08/25/2023 355 07/07/2010 264 Creatinine Date Value Ref Range Status 08/25/2023 0.73 0.58 - 0.96 mg/dL Final 08/04/2023 0.79 0.58 - 0.96 mg/dL Final [facility] 11-16-2023 Miscellaneous Notes Received request for refill of the following medications: Requested Prescriptions Pending Prescriptions Disp Refills propranolol ER (INDERAL LA) 80 mg 24 hr capsule [Pharmacy Med Name: PROPRANOLOL ER 80 MG CAPSULE] 90 capsule 1 Sig: take 1 capsule by mouth every day Patient requested a 90 day refill. Pharmacy verified and updated accordingly. Patient was last seen in cardiology office: 08/02/2023. Upcoming appointment scheduled: na. Labs: Hemoglobin (g/dL) Date Value 08/25/2023 9.5 07/07/2010 12.8 Hematocrit (%) Date Value 08/25/2023 30.2 07/07/2010 37.7 WBC (k/uL) Date Value 08/25/2023 14.23 07/07/2010 9.73 Platelet Count (k/uL) Date Value 08/25/2023 355 07/07/2010 264 Creatinine Date Value Ref Range Status 08/25/2023 0.73 0.58 - 0.96 mg/dL Final 08/04/2023 0.79 0.58 - 0.96 mg/dL Final documented in this encounter [facility] 11-12-2023 Telephone encounter Note Incoming fax received at 1 E office and scanned into patient chart. [facility] 11-12-2023 Miscellaneous Notes Incoming fax received at 1 E office and scanned into patient chart. documented in this encounter [facility] 11-01-2023 Note HNO ID: [id number] Author: JOO CRUZ MD Service: ? Author Type: Physician Type: Progress Notes Filed: 11/01/2023 15:36 Note Text: SPINE SURGERY FOLLOW UP This is an in-person visit. SERVICE DATE: 11/01/2023 SURGERY DATE: ACDF C6/7 on (Date: 08/24/2023) Ladi Byers is seen for 10 week post operative follow up. She reports she is doing well. Has noticed improvements in hand function. Reports upper back pain, that improved with nsaids. She previously has tried dry needling which improved this pain. No issues with swallowing. She is interested in therapy for back. ANTIPLATELET OR ANTICOAGULATION STATUS: No Patient Entered Questionnaires 08/10/2023 09/09/2023 10/31/2023 Spine Questions Pain Location: Upper back/torso Upper back/torso Upper back/torso Symptoms from neck/cervical spine: Yes Yes Yes Employment Status: Disabled due to back pain, permanently or temporarily Off work 1 month or more due to back/neck pain: Yes Applied for/receive disability/WC due to low back/neck pain Yes 08/10/2023 Spine Red Flags Any type of cancer: No Unexplained fever: No Bowel or bladder disfunction: No Unintentional weight loss: No Osteoporosis: No 06/18/2023 08/10/2023 10/31/2023 Neck Questionnaires Benzel Modified NITIN Score 14 (A lower score indicates increased pain and issues.) Incomplete 13 (A lower score indicates increased pain and issues.) PROMIS Score Percentiles 08/10/2023 09/09/2023 10/31/2023 Physical Health Physical Function Percentile 5 3 18* Sleep Percentile 7 5 Fatigue Percentile 1 4 Pain Interference Percentile 2 1 7 07/22/2023 09/09/2023 10/31/2023 PROMIS SOCIAL ROLE SCORE Social Role Satisfaction Percentile 18* 4 42 04/09/2023 07/02/2023 10/31/2023 PROMIS Global Health Scale Physical Health Percentile 15 4 7 Mental Health Percentile 13 13 13 Percentiles provide an indication of how the patient's score ranks in relation to the general population. Higher percentile rankings indicate better function/quality of life. 50th percentile is the average of the general population and indicates half of respondents had a worse score. Descriptive Summary for PROMIS Physical Function T-score = 41 (Percentile 18) Much difficulty - Do 2 hours of physical labor. Some difficulty - Walk more than a mile (1.6 km). Depression Screenin08/10/2023 09/09/2023 10/31/2023 PHQ-9 Score 14 11 18 08/10/2023 09/09/2023 10/31/2023 PHQ-9 Self-harm Question Question 9 Not at all Not at all Not at all PHQ-9 Self-Harm (Item 9) response options: 0 Not at all 1 Several days 2 More than half the days 3 Nearly every day PHQ-9 Levels: 0-4 No to mild depression 5-9 Mild depression 10-14 Moderate depression 15-19 Moderately severe depression 20-27 Severe depression PHYSICAL EXAM: LMP 07/19/2023 (Exact Date) GENERAL APPEARANCE: Well nourished, well developed, and no apparent distress. NEURO PSYCH: Patient oriented to person, place, and time. Mood pleasant. Benign affect. MUSCULOSKELETAL VISUAL INSPECTION CERVICAL: WNL THORACIC: WNL LUMBAR: WNL MOTOR: 5/5 in all muscle groups. SENSORY: Normal sensory exam GAIT: Normal. Right sided incision CDI, healing well. 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 1. Phone visit in 4 weeks for a check in. Next xrays at 6 month post op maurice. All questions answered. She was in agreement with plan. 2. Follow up: Following above Imaging Ordered: None The majority of the visit was spent counseling and/or coordinating care for the patient. The patient was counseled regarding cervical myelopathy . Total face to face time was 25 minutes. SIGNATURE: Joo Cruz MD PATIENT NAME: Ladi Byers DATE: November 01, 2023 TIME: 3:21 PM PAGER: [facility] 11-01-2023 Note HNO ID: [id number] Author: YULY SUMMERS RT(Heidy) Service: Radiology Author Type: Technologist Type: Progress Notes Filed: 11/01/2023 15:19 Note Text: Radiology Service Progress Note PATIENT NAME: Ladi Byers DATE OF SERVICE: November 01, 2023 TIME: 3:18 PM PATIENT IDENTITY VERIFICATION COMPLETED USING TWO (2) IDENTIFIERS: Name and Date of confirmed by patient verbally and Name and Date of confirmed by identification band. FALL SCREENING: Has the patient had 2 falls in the last year or 1 fall with injury or currently using an Ambulatory Assistive Device (Walker, Cane, Wheelchair, Crutches, etc.)? No PATIENT GENDER DATA: Female. status: : No status: NO. PATIENT RELEVANT IMPLANT DATA REVIEWED: Not Applicable PATIENT PRESENTS WITH AN IMPLANTABLE OR ATTACHED TIRE TECHNICIAN: No RADIOLOGY DEPARTMENT: General X-ray: Exam(s) Completed: Spine X-Ray(s): Cervical AP / LAT PERIPHERAL IV DATA: Not applicable SIGNED BY: RT Carlos Manuel(R) November 01, 2023 3:18 PM [facility] 11-01-2023 History of Presen t illness Narrative SPINE SURGERY FOLLOW UP This is an in-person visit. SERVICE DATE: 11/01/2023 SURGERY DATE: ACDF C6/7 on (Date: 08/24/2023) Ladi Byers is seen for 10 week post operative follow up. She reports she is doing well. Has noticed improvements in hand function. Reports upper back pain, that improved with nsaids. She previously has tried dry needling which improved this pain. No issues with swallowing. She is interested in therapy for back. ANTIPLATELET OR ANTICOAGULATION STATUS: No Patient Entered Questionnaires 08/10/2023 09/09/2023 10/31/2023 Spine Questions Pain Location: Upper back/torso Upper back/torso Upper back/torso Symptoms from neck/cervical spine: Yes Yes Yes Employment Status: Disabled due to back pain, permanently or temporarily Off work 1 month or more due to back/neck pain: Yes Applied for/receive disability/WC due to low back/neck pain Yes 08/10/2023 Spine Red Flags Any type of cancer: No Unexplained fever: No Bowel or bladder disfunction: No Unintentional weight loss: No Osteoporosis: No 06/18/2023 08/10/2023 10/31/2023 Neck Questionnaires Benzel Modified NITIN Score 14 (A lower score indicates increased pain and issues.) Incomplete 13 (A lower score indicates increased pain and issues.) PROMIS Score Percentiles 08/10/2023 09/09/2023 10/31/2023 Physical Health Physical Function Percentile 5 3 18* Sleep Percentile 7 5 Fatigue Percentile 1 4 Pain Interference Percentile 2 1 7 07/22/2023 09/09/2023 10/31/2023 PROMIS SOCIAL ROLE SCORE Social Role Satisfaction Percentile 18* 4 42 04/09/2023 07/02/2023 10/31/2023 PROMIS Global Health Scale Physical Health Percentile 15 4 7 Mental Health Percentile 13 13 13 Percentiles provide an indication of how the patient's score ranks in relation to the general population. Higher percentile rankings indicate better function/quality of life. 50th percentile is the average of the general population and indicates half of respondents had a worse score. Descriptive Summary for PROMIS Physical Function T-score = 41 (Percentile 18) Much difficulty - Do 2 hours of physical labor. Some difficulty - Walk more than a mile (1.6 km). Depression Screenin08/10/2023 09/09/2023 10/31/2023 PHQ-9 Score 14 11 18 08/10/2023 09/09/2023 10/31/2023 PHQ-9 Self-harm Question Question 9 Not at all Not at all Not at all PHQ-9 Self-Harm (Item 9) response options: 0 Not at all 1 Several days 2 More than half the days 3 Nearly every day PHQ-9 Levels: 0-4 No to mild depression 5-9 Mild depression 10-14 Moderate depression 15-19 Moderately severe depression 20-27 Severe depression PHYSICAL EXAM: LMP 07/19/2023 (Exact Date) GENERAL APPEARANCE: Well nourished, well developed, and no apparent distress. NEURO PSYCH: Patient oriented to person, place, and time. Mood pleasant. Benign affect. MUSCULOSKELETAL VISUAL INSPECTION CERVICAL: WNL THORACIC: WNL LUMBAR: WNL MOTOR: 5/5 in all muscle groups. SENSORY: Normal sensory exam GAIT: Normal. Right sided incision CDI, healing well. 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 1. Phone visit in 4 weeks for a check in. Next xrays at 6 month post op maurice. All questions answered. She was in agreement with plan. 2. Follow up: Following above Imaging Ordered: None The majority of the visit was spent counseling and/or coordinating care for the patient. The patient was counseled regarding cervical myelopathy . Total face to face time was 25 minutes. SIGNATURE: Joo Cruz MD PATIENT NAME: Ladi Byers DATE: November 01, 2023 TIME: 3:21 PM PAGER: documented in this encounter [facility] 11-01-2023 History of Presen t illness Narrative Radiology Service Progress Note PATIENT NAME: Ladi Byers DATE OF SERVICE: November 01, 2023 TIME: 3:18 PM PATIENT IDENTITY VERIFICATION COMPLETED USING TWO (2) IDENTIFIERS: Name and Date of confirmed by patient verbally and Name and Date of confirmed by identification band. FALL SCREENING: Has the patient had 2 falls in the last year or 1 fall with injury or currently using an Ambulatory Assistive Device (Walker, Cane, Wheelchair, Crutches, etc.)? No PATIENT GENDER DATA: Female. status: : No status: NO. PATIENT RELEVANT IMPLANT DATA REVIEWED: Not Applicable PATIENT PRESENTS WITH AN IMPLANTABLE OR ATTACHED TIRE TECHNICIAN: No RADIOLOGY DEPARTMENT: General X-ray: Exam(s) Completed: Spine X-Ray(s): Cervical AP / LAT PERIPHERAL IV DATA: Not applicable SIGNED BY: RT Carlos Manuel(R) November 01, 2023 3:18 PM documented in this encounter [facility] 09-27-2023 Miscellaneous Notes Neuro SPINE CARE COORDINATION QUICK NOTE SURGERY DATE: ACDF C6/7 on (Date: 08/24/2023) - improved balance - hand strength improving. Occasional RUE pain but improving. Pt continues with Roxicodone 1-2 day - requesting one more refill as she continues to taper. Pt very mindful with opioid use as she reports family HX of dependence. Root canal pending on 09-29-23 ( pt reports right tooth pain and right ear pain ) - pt is currently on ATB per her dentist. Tylenol / Motrin alternating for her tooth pain Neurontin 200 BID Pt requests one refill of Roxicodone - she is taking 1-2 per day and continues to wean. Routed to Dr. Cruz for review/ Refill Last filled: 09/07/23 Last OV: 09/10/23 documented in this encounter [facility] 09-10-2023 Note HNO ID: [id number] Author: REUBEN AGRAWAL PA-C Service: ? Author Type: Physician Caterers Helper Type: Progress Notes Filed: 09/10/2023 12:27 Note Text: Telemedicine Visit - [facility] Virtual Visit Note Patient seen on [employer] Video Visit platform. Location of patient: [place] I have communicated my name and active licensure. The patient's identity and physical location were verified at the time of this visit. Either the patient or their legal hvac sales representative has been informed of the risks and benefits of -- and alternatives to -- treatment through a remote evaluation and consents to proceed with the evaluation remotely. History of Present Illness Ladi Byers is a 38 year old year old female who presents for follow up. Psych: She reports a hx of depression, anxiety, complex PTSD and Bipolar disorder. She's followed by psychiatry. Most recently, Seroquel is being tapered off and starting on Zyprexa. She's is no longer on the hydroxyzine. Surgery: She had C-spine surgery 08/24/2023 which she reports was to help cervical radiculopathy and balance. She's maintained her follow ups with neurosurgery. She's reports her flexeril was changed to Tizanidine. She states she has a 10 pound lifting restriction. She is not doing PT for her neck - but is in OT for other medical conditions. 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 Inquiry was made to her specialists - and it was recommended she wait 3 months from her C-spine surgery which was 08/24/2023. Cardio: She has seen cardiology and was started on propranolol. She's notes her average HR is improved and also thinks the medication has helped her anxiety. She also wanted to make me aware that I should be receiving information from her data reduction technician regarding her disability case. PAST MEDICAL HISTORY Diagnosis Date Bipolar 1 disorder (HCC) Followed by psychiatry C. difficile diarrhea Cervical dysplasia or atypia status post cryo treatment Chlamydia 07/05/2004 DIMITRI (generalized anxiety disorder) 04/09/2023 Headache(784.0) 07/05/2009 Daily-qod, thoracic to base of skull, tightening, no time of day History of peptic ulcer large 2021 MDD (major depressive disorder), recurrent episode, mild (HCC) 04/09/2023 Migraine headache 07/05/2003 Photophobia, nausea, vomiting, weekly Neck pain Nephrolithiasis 07/05/2004 Other irritable bowel syndrome Palpitation Evaluated by cardiology RBBB TMJ disorder, unspecified PAST SURGICAL HISTORY Procedure Laterality Date ACL repair 2002 Left knee COLONOSCOPY 08/25/2022 EGD 10/09/2021 ulcer EGD 02/09/2022 scar from previous ulcer EGD 08/25/2022 TONSILLECTOMY HX FAMILY HISTORY Problem Relation Age of Onset Skin Cancer Mother Alcohol/Drug Mother Migraines Father Drug abuse Brother Colon Cancer Maternal Grandmother Ischemic Heart Disease Paternal Grandmother Ischemic Heart Disease Paternal Grandfather Lung Cancer Paternal Grandfather Colon Cancer Maternal great-grandfather Social History Tobacco Use Smoking status: Former Packs/day: 0.50 Years: 20.00 Additional pack years: 0.00 Total pack years: 10.00 Types: Cigarettes Quit date: 07/12/2023 Years since quittin.1 Smokeless tobacco: Never Vaping Use Vaping Use: current everyday user Substances: Nicotine, Flavoring Devices: Disposable Substance Use Topics Alcohol use: Yes Alcohol/week: 2.0 standard drinks of alcohol Types: 2 Standard drinks or equivalent per week Comment: 7-8 drinks per month Drug use: No Comment: Marijuana at age 17 Current Outpatient Medications Medication Sig OLANZapine (ZYPREXA) 5 mg tablet Take 5 mg by mouth once daily. tiZANidine (ZANAFLEX) 4 mg tablet Take 1 tablet by mouth every 6 hours as needed. oxyCODONE IR (ROXICODONE) 5 mg immediate release tablet Take 1 tablet by mouth every 4 hours as needed for pain for up to 7 days. cyanocobalamin (VITAMIN B-12) 1,000 mcg tab Take 1 tablet by mouth every afternoon. BLISOVI 24 FE 1 mg-20 mcg (24)/75 mg (4) Take 1 tablet by mouth every afternoon. propranolol ER (INDERAL LA) 80 mg 24 hr capsule Take 1 capsule by mouth once daily. gabapentin (NEURONTIN) 100 mg capsule TAKE 2 CAPSULES BY MOUTH TWICE A DAY FOR 90 DAYS celecoxib (CELEBREX) 200 mg capsule TAKE 1 CAPSULE BY MOUTH EVERY DAY albuterol HFA (PROVENTIL HFA) 90 mcg/actuation inhaler Inhale 1-2 Puffs as instructed every 4 hours as needed for wheezing/shortness of breath. VYVANSE [address] (PROTONIX) 40 mg tablet Take 1 tablet by mouth every afternoon. guaiFENesin (MUCINEX) 600 mg 12 hr tablet Take 1,200 mg by mouth twice daily as needed for cold/allergy symptoms. dicyclomine (BENTYL) 10 mg capsule 1 capsule. cetirizine (ZYRTEC) 10 mg tablet Take 10 mg by mouth daily at bedtime. SUMAtriptan (IMITREX) 50 mg tablet TAKE 1 TABLET BY MOUTH TWICE DAILY NEE (more content not included)... [facility] 09-10-2023 History of Presen t illness Narrative Telemedicine Visit - Distance Health Virtual Visit Note Patient seen on [employer] Video Visit platform. Location of patient: [place] I have communicated my name and active licensure. The patient's identity and physical location were verified at the time of this visit. Either the patient or their legal hvac sales representative has been informed of the risks and benefits of -- and alternatives to -- treatment through a remote evaluation and consents to proceed with the evaluation remotely. History of Present Illness Ladi Byers is a 38 year old year old female who presents for follow up. Psych: She reports a hx of depression, anxiety, complex PTSD and Bipolar disorder. She's followed by psychiatry. Most recently, Seroquel is being tapered off and starting on Zyprexa. She's is no longer on the hydroxyzine. Surgery: She had C-spine surgery 08/24/2023 which she reports was to help cervical radiculopathy and balance. She's maintained her follow ups with neurosurgery. She's reports her flexeril was changed to Tizanidine. She states she has a 10 pound lifting restriction. She is not doing PT for her neck - but is in OT for other medical conditions. 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 Inquiry was made to her specialists - and it was recommended she wait 3 months from her C-spine surgery which was 08/24/2023. Cardio: She has seen cardiology and was started on propranolol. She's notes her average HR is improved and also thinks the medication has helped her anxiety. She also wanted to make me aware that I should be receiving information from her data reduction technician regarding her disability case. PAST MEDICAL HISTORY Diagnosis Date Bipolar 1 disorder (HCC) Followed by psychiatry C. difficile diarrhea Cervical dysplasia or atypia status post cryo treatment Chlamydia 07/05/2004 DIMITRI (generalized anxiety disorder) 04/09/2023 Headache(784.0) 07/05/2009 Daily-qod, thoracic to base of skull, tightening, no time of day History of peptic ulcer large 2021 MDD (major depressive disorder), recurrent episode, mild (HCC) 04/09/2023 Migraine headache 07/05/2003 Photophobia, nausea, vomiting, weekly Neck pain Nephrolithiasis 07/05/2004 Other irritable bowel syndrome Palpitation Evaluated by cardiology RBBB TMJ disorder, unspecified PAST SURGICAL HISTORY Procedure Laterality Date ACL repair 2001 Left knee COLONOSCOPY 08/25/2022 EGD 10/09/2021 ulcer EGD 02/09/2022 scar from previous ulcer EGD 08/25/2022 TONSILLECTOMY HX FAMILY HISTORY Problem Relation Age of Onset Skin Cancer Mother Alcohol/Drug Mother Migraines Father Drug abuse Brother Colon Cancer Maternal Grandmother Ischemic Heart Disease Paternal Grandmother Ischemic Heart Disease Paternal Grandfather Lung Cancer Paternal Grandfather Colon Cancer Maternal great-grandfather Social History Tobacco Use Smoking status: Former Packs/day: 0.50 Years: 20.00 Additional pack years: 0.00 Total pack years: 10.00 Types: Cigarettes Quit date: 07/12/2023 Years since quittin.1 Smokeless tobacco: Never Vaping Use Vaping Use: current everyday user Substances: Nicotine, Flavoring Devices: Disposable Substance Use Topics Alcohol use: Yes Alcohol/week: 2.0 standard drinks of alcohol Types: 2 Standard drinks or equivalent per week Comment: 7-8 drinks per month Drug use: No Comment: Marijuana at age 17 Current Outpatient Medications Medication Sig OLANZapine (ZYPREXA) 5 mg tablet Take 5 mg by mouth once daily. tiZANidine (ZANAFLEX) 4 mg tablet Take 1 tablet by mouth every 6 hours as needed. oxyCODONE IR (ROXICODONE) 5 mg immediate release tablet Take 1 tablet by mouth every 4 hours as needed for pain for up to 7 days. cyanocobalamin (VITAMIN B-12) 1,000 mcg tab Take 1 tablet by mouth every afternoon. BLISOVI 24 FE 1 mg-20 mcg (24)/75 mg (4) Take 1 tablet by mouth every afternoon. propranolol ER (INDERAL LA) 80 mg 24 hr capsule Take 1 capsule by mouth once daily. gabapentin (NEURONTIN) 100 mg capsule TAKE 2 CAPSULES BY MOUTH TWICE A DAY FOR 90 DAYS celecoxib (CELEBREX) 200 mg capsule TAKE 1 CAPSULE BY MOUTH EVERY DAY albuterol HFA (PROVENTIL HFA) 90 mcg/actuation inhaler Inhale 1-2 Puffs as instructed every 4 hours as needed for wheezing/shortness of breath. VYVANSE [address] (PROTONIX) 40 mg tablet Take 1 tablet by mouth every afternoon. guaiFENesin (MUCINEX) 600 mg 12 hr tablet Take 1,200 mg by mouth twice daily as needed for cold/allergy symptoms. dicyclomine (BENTYL) 10 mg capsule 1 capsule. cetirizine (ZYRTEC) 10 mg tablet Take 10 mg by mouth daily at bedtime. SUMAtriptan (IMITREX) 50 mg tablet TAKE 1 TABLET BY MOUTH TWICE DAILY NEEDED AT ONSET OF HEADACHE MAY REPEAT IN 1 HOUR No current facility-administered medications for this visit. ALLERGIES Allergen Reactions Cariprazine Other: See Comments, Unknown Iothalamic Acid Other: See Comments Metoclopramide Other: See Comments Penicillins Hives Reglan [Metoclopram* Mental Status Change Video Exam (Examination performed via Video enabled technology) General appearance: Alert, oriented, pleasant, in NAD :Yes Ill appearing :No Lethargic appearing :No Respiratory distress :No ASSESSMENT/PLAN: 1. Palpitations - ICD9: 785.1, ICD10: R00.2 (primary diagnosis) Palpations previously evaluated and had also seen cardiology. Compliant with propranolol with benefit. Continue care as outlined by specialist. 2. Bipolar 1 disorder (HCC) - ICD9: 296.7, ICD10: F31.9 Known psychiatric conditions followed by psychiatry. Continue care as outlined by specialist. 3. S/P cervical spinal fusion - ICD9: V45.4, ICD10: Z98.1 C-spine surgery 08/24/2023. Advised to maintain care as recommended by neurosurgery. Advised that if she wishes to donate plasma to reach back out to me after 11/22/2023 if a form needs completed. Recommend follow up in April for annual physical. Reuben Agrawal PA-C documented in this encounter [facility] 09-10-2023 Note HNO ID: [id number] Author: JOO CRUZ MD Service: ? Author Type: Physician Type: Progress Notes Filed: 09/10/2023 11:39 Note Text: SPINE SURGERY FOLLOW UP This is an in-person visit. SERVICE DATE: 09/10/2023 SURGERY DATE: ACDF C6/7 on (Date: 08/24/2023) Ladi Byers is seen for 2 week post operative follow up. Patient reports improvement in pre op symptoms . Reports her balance is improved, arm pain improved. No issues with incision. Takes occasional narcotics, but has weaned down. ANTIPLATELET OR ANTICOAGULATION STATUS: No Patient Entered Questionnaires Spine Questions 07/26/2023 08/10/2023 09/09/2023 Pain Location: Neck Upper back/torso Upper back/torso Pain Duration: - - - Pain over last 6 months: - - - Symptoms from neck/cervical spine: Yes Yes Yes Employment Status: - - - Off work 1 month or more due to back/neck pain: - - - Applied for/receive disability/WC due to low back/neck pain - - - Involved in law suit/legal claim: - - - Spine Red Flags 08/10/2023 Any type of cancer: No Unexplained fever: No Bowel or bladder disfunction: No Unintentional weight loss: No Osteoporosis: No Neck Questionnaires 06/18/2023 08/10/2023 Benzel Modified NITIN Score 14 (A lower score indicates increased pain and issues.) Incomplete PROMIS Score Percentiles Physical Health 07/22/2023 08/10/2023 09/09/2023 Physical Function Percentile - 5 3 Sleep Percentile 4 - 7 Fatigue Percentile 4 - 1 Pain Interference Percentile - 2 1 PROMIS SOCIAL ROLE SCORE 06/18/2023 07/22/2023 09/09/2023 Social Role Satisfaction Percentile 14 18* 4 PROMIS Global Health Scale 04/09/2023 07/02/2023 Physical Health Percentile 15 4 Mental Health Percentile 13 13 Percentiles provide an indication of how the patient's score ranks in relation to the general population. Higher percentile rankings indicate better function/quality of life. 50th percentile is the average of the general population and indicates half of respondents had a worse score. Depression Screening: PHQ-9 07/02/2023 08/10/2023 09/09/2023 Score 12 14 11 PHQ-9 Self-harm Question 07/02/2023 08/10/2023 09/09/2023 Thoughts that you would be better off , or of hurting yourself in some way 0 0 0 PHQ-9 Self-Harm (Item 9) response options: 0 Not at all 1 Several days 2 More than half the days 3 Nearly every day PHQ-9 Levels: 0-4 No to mild depression 5-9 Mild depression 10-14 Moderate depression 15-19 Moderately severe depression 20-27 Severe depression PHYSICAL EXAM: Ht 152.4 cm (5') Wt 65.8 kg (145 lb) LMP 07/19/2023 (Exact Date) BMI 28.32 kg/m? GENERAL APPEARANCE: Well nourished, well developed, and no apparent distress. NEURO PSYCH: Patient oriented to person, place, and time. Mood pleasant. Benign affect. MUSCULOSKELETAL VISUAL INSPECTION CERVICAL: WNL THORACIC: WNL LUMBAR: WNL MOTOR: 5/5 in all muscle groups. SENSORY: Normal sensory exam GAIT: Normal. 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 1. 2 weeks out from acdf doing well. Continue with 10lb lifting restriction. Avoid excessive twisting. I will see back at 6 weeks post op with pre visit xrays. All questions answered patient pleased with encounter. 2. Follow up: Following above Imaging Ordered: None The majority of the visit was spent counseling and/or coordinating care for the patient. The patient was counseled regarding cervical stenosis . Total face to face time was 15 minutes. SIGNATURE: Joo Cruz MD PATIENT NAME: Ladi Byers DATE: September 10, 2023 TIME: 9:38 AM PAGER: [facility] 09-10-2023 History of Presen t illness Narrative SPINE SURGERY FOLLOW UP This is an in-person visit. SERVICE DATE: 09/10/2023 SURGERY DATE: ACDF C6/7 on (Date: 08/24/2023) Ladi Byers is seen for 2 week post operative follow up. Patient reports improvement in pre op symptoms . Reports her balance is improved, arm pain improved. No issues with incision. Takes occasional narcotics, but has weaned down. ANTIPLATELET OR ANTICOAGULATION STATUS: No Patient Entered Questionnaires Spine Questions 07/26/2023 08/10/2023 09/09/2023 Pain Location: Neck Upper back/torso Upper back/torso Pain Duration: - - - Pain over last 6 months: - - - Symptoms from neck/cervical spine: Yes Yes Yes Employment Status: - - - Off work 1 month or more due to back/neck pain: - - - Applied for/receive disability/WC due to low back/neck pain - - - Involved in law suit/legal claim: - - - Spine Red Flags 08/10/2023 Any type of cancer: No Unexplained fever: No Bowel or bladder disfunction: No Unintentional weight loss: No Osteoporosis: No Neck Questionnaires 06/18/2023 08/10/2023 Benzel Modified NITIN Score 14 (A lower score indicates increased pain and issues.) Incomplete PROMIS Score Percentiles Physical Health 07/22/2023 08/10/2023 09/09/2023 Physical Function Percentile - 5 3 Sleep Percentile 4 - 7 Fatigue Percentile 4 - 1 Pain Interference Percentile - 2 1 PROMIS SOCIAL ROLE SCORE 06/18/2023 07/22/2023 09/09/2023 Social Role Satisfaction Percentile 14 18* 4 PROMIS Global Health Scale 04/09/2023 07/02/2023 Physical Health Percentile 15 4 Mental Health Percentile 13 13 Percentiles provide an indication of how the patient's score ranks in relation to the general population. Higher percentile rankings indicate better function/quality of life. 50th percentile is the average of the general population and indicates half of respondents had a worse score. Depression Screening: PHQ-9 07/02/2023 08/10/2023 09/09/2023 Score 12 14 11 PHQ-9 Self-harm Question 07/02/2023 08/10/2023 09/09/2023 Thoughts that you would be better off , or of hurting yourself in some way 0 0 0 PHQ-9 Self-Harm (Item 9) response options: 0 Not at all 1 Several days 2 More than half the days 3 Nearly every day PHQ-9 Levels: 0-4 No to mild depression 5-9 Mild depression 10-14 Moderate depression 15-19 Moderately severe depression 20-27 Severe depression PHYSICAL EXAM: Ht 152.4 cm (5') Wt 65.8 kg (145 lb) LMP 07/19/2023 (Exact Date) BMI 28.32 kg/m GENERAL APPEARANCE: Well nourished, well developed, and no apparent distress. NEURO PSYCH: Patient oriented to person, place, and time. Mood pleasant. Benign affect. MUSCULOSKELETAL VISUAL INSPECTION CERVICAL: WNL THORACIC: WNL LUMBAR: WNL MOTOR: 5/5 in all muscle groups. SENSORY: Normal sensory exam GAIT: Normal. 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 1. 2 weeks out from acdf doing well. Continue with 10lb lifting restriction. Avoid excessive twisting. I will see back at 6 weeks post op with pre visit xrays. All questions answered patient pleased with encounter. 2. Follow up: Following above Imaging Ordered: None The majority of the visit was spent counseling and/or coordinating care for the patient. The patient was counseled regarding cervical stenosis . Total face to face time was 15 minutes. SIGNATURE: Joo Cruz MD PATIENT NAME: Ladi Byers DATE: September 10, 2023 TIME: 9:38 AM PAGER: documented in this encounter [facility] 09-09-2023 Miscellaneous Notes Fax came over for Occupational Therapy Re-certification Note from [facility]. Physician signed paperwork and was faxed back over to [place] with confirmation. Lauren Hernandez MA September 09, 2023 9:35 AM documented in this encounter [facility] 09-06-2023 Miscellaneous Notes Pt returned your call. [phone] Neuro SPINE CARE COORDINATION QUICK NOTE Procedure(s): ACDF C6/7 ( 08-24-23 ) Call to the pt and LM on identified VM documented in this encounter [facility] 08-27-2023 Miscellaneous Notes Incoming mail to 1 [address] office [employer]. Insurance document scanned into patient chart. documented in this encounter [facility] 08-26-2023 Miscellaneous Notes Images from the original note were not included. CALL FOR ER FOLLOW UP: Ladi was seen for cervical spinal fusion at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 changes to potassium levels in the blood can be life-threatening. What are the causes? This condition may be caused by: Antibiotic medicine. Diarrhea or vomiting. Taking too much of a medicine that helps you have a bowel movement (laxative)can cause diarrhea and lead to hypokalemia. Chronic kidney disease (CKD). Medicines that help the body get rid of excess fluid (diuretics). Eating disorders, such as anorexia or bulimia. Low magnesium levels in the body. Sweating a lot. What are the signs or symptoms? Symptoms of this condition include: Weakness. Constipation. Fatigue. Muscle cramps. Mental confusion. Skipped heartbeats or irregular heartbeat (palpitations). Tingling or numbness. How is this diagnosed? This condition is diagnosed with a blood test. How is this treated? This condition may be treated by: Taking potassium supplements. Adjusting the medicines that you take. Eating more foods that contain a lot of potassium. If your potassium level is very low, you may need to get potassium through an IV and be monitored in the hospital. Follow these instructions at home: Eating and drinking Eat a healthy diet. A healthy diet includes fresh fruits and vegetables, whole grains, healthy fats, and lean proteins. If told, eat more foods that contain a lot of potassium. These include: ?Nuts, such as peanuts and pistachios. ?Seeds, such as sunflower seeds and pumpkin seeds. ?Peas, lentils, and pena beans. ?Whole grain and bran cereals and breads. ?Fresh fruits and vegetables, such as apricots, avocado, bananas, cantaloupe, kiwi, oranges, tomatoes, asparagus, and potatoes. ?Juices, such as orange, tomato, and prune. ?Lean meats, including fish. ?Milk and milk products, such as yogurt. General instructions Take togs-pyb-rdyqpzh and prescription medicines only as told by your health care provider. This includes vitamins, natural food products, and supplements. Keep all follow-up visits. This is important. Contact a health care provider if: You have weakness that gets worse. You feel your heart pounding or racing. You vomit. You have diarrhea. You have diabetes and you have trouble keeping your blood sugar in your target range. Get help right away if: You have chest pain. You have shortness of breath. You have vomiting or diarrhea that lasts for more than 2 days. You faint. These symptoms may be an emergency. Get help right away. Call 911. Do not wait to see if the symptoms will go away. Do not drive yourself to the hospital. Summary Hypokalemia means that the amount of potassium in the blood is lower than normal. This condition is diagnosed with a blood test. Hypokalemia may be treated by taking potassium supplements, adjusting the medicines that you take, or eating more foods that are high in potassium. If your potassium level is very low, you may need to get potassium through an IV and be monitored in the hospital. This information is not intended to replace advice given to you by your health care provider. Make sure you discuss any questions you have with your health care provider. Document Revised: 03/05/2022 Document Reviewed: 03/05/2022 [employer] Patient Education 2022 [employer]. Follow Up Care 12/23/2022 19:37:14 With:Vito ROBERTSON Address: [address] [place] [address]. [address] [place] [address] Business (1) When:12/27/2022 Comments:Call to discuss your ongoing cyclic vomiting.Abstain from marijuana for 6 months to determine if this may be the cause.Take antinausea meds only as prescribed. There is increased risk of these medications for you given your prolonged QTc. Only take 1 antiemetic at this time. Follow-up with your card iologist to discuss your QTc prolongation further. With:TERESA PATEL Address: [address] [place] [phone] Business (1) When:12/27/2022 Comments:Call the office of your primary care doctor to arrange for follow-up within the above-stated timeframe. Follow-up with your primary care doctor about this ED visit. You should review your labs, imaging, and diagnoses from this ED visit with your primary care physician. There are occasionally non-emergent findings that require additional follow-up after your ED visit. If you were prescribed medications you should discuss possible side-effects and drug interactions with your pharmacist. Call 911 or go to the nearest Emergency Department if you develop any new or worsening symptoms.Seek immediate medical attention if you develop:worsening abdominal pain, new or worsening nausea, new or worsening vomiting, new or worsening diarrhea, chest pain, shortness of breath, pain with urination, problems urinating, fever, chills, weakness, or any new or worsening symptoms. [facility]06-21-2023 Evaluation + Plan noteExtracted from: Title:ED Note Author:Silas Durant DO Date: Cyclical vomiting (R11.15: C yclical vomiting syndrome unrelated to migraine) Marijuana use (F12.90: Cannabis use, unspecified, uncomplicated) Prolonged QT interval (R94.31: Abnormal electrocardiogram [ECG] [EKG]) Orders: lorazepam, 1 mg = 0.5 mL, Injection, IV Push, Once, Stop date 12/23/22 22:00:00 EDT, Routine, Start date 12/23/22 22:00:00 EDT, 12/23/22 21:26:00 EDT magnesium sulfate + Generic Diluent 50 mL, 2 gram = 50 mL, IV Piggyback, Once, Stop date 12/23/22 20:56:00 EDT, STAT, Start date 12/23/22 20:56:00 EDT, 25 mL/hr, Infuse over 2 hour(s), 12/23/22 20:56:00 EDT pantoprazole, 40 mg = 10 mL, Injection, IV Push, Once, Stop date 12/23/22 21:29:00 EDT, STAT, Start date 12/23/22 21:29:00 EDT, 12/23/22 21:29:00 EDT potassium chloride + Generic Diluent 100 mL, 20 mEq = 100 mL, IV Piggyback, q2hr for 2 dose(s), Stop date 12/24/22 0:54:00 EDT, STAT, Start date 12/23/22 20:55:00 EDT, 50 mL/hr, Infuse over 2 hour(s), 12/23/22 20:55:00 EDT promethazine, 25 mg = 1 mL, Injection, IV Push, Once, Stop date 12/23/22 21:27:00 EDT, STAT, Start date 12/23/22 21:27:00 EDT, run as piggyback over 30 min, 12/23/22 21:27:00 EDT Sodium Chloride 0.9% intravenous solution, Soln-IV, Misc, Once, Stop date 12/23/22 21:06:27 EDT, Physician Stop, 12/23/22 21:06:27 EDT Sodium Chloride 0.9% intravenous solution, Soln-IV, Misc, Once, Stop date 12/23/22 21:30:31 EDT, Physician Stop, 12/23/22 21:30:31 EDT Sodium Chloride 0.9% intravenous solution 1,000 mL, 1,000 mL, IV, 999 mL/hr, STAT, Start date 12/23/22 21:06:00 EDT, 1 hour(s), Total volume (mL): 1,000, 58 kg, 1.56, m2 Add on Test Add on Test Automated Diff Basic Metabolic Panel Beta hCG Qual CBC w/ Auto Diff Drug Screen Urine ECG 12 Lead Adult eGFR Extra Blue Tube Extra SST Tube Hepatic Function Panel Lipase Level Magnesium Level UA With Cult Reflex Future Scheduled Tests Laboratory* Fecal WBC Lactoferrin 10/22/22 * Giardia lamblia, Direct Detection EIA 10/22/22 * O & P Exam, Routine 10/22/22 * Clostridium Difficile PCR 10/22/22 * Enteric Panel by PCR 10/22/22 * Gastrin Level 11/09/22 [facility]06-19-2023 NoteHNO ID: [id number] Author: Tristan Guallpa MD Service: ? Author Type: Physician Type: Progress Notes Filed: 12/22/2022 6:38 PM Note Text: Reason for Evaluation: Consultation requested by Teresa Patel for an opinion regarding left facial droop. My final recommendations will be communicated back to the requesting physician by way of shared medical record or letter to requesting physician via US mail. Impression: This is Ms. Ladi Byers, a 37 year old female who presents to the [facility] clinic with the chief complaint of pain. Suspect temporomandibular disorder for multiple reasons. Pain near the ear. Ear feels full. Ear hurts. Head and neck hurt. Cracking and popping with jaw movement. Jaw seems to deviate to the affected side during our interaction today. Impression is at least for temporomandibular disorder. Plan: - Physical therapy for temporomandibular disorder. - Follow-up in clinic as needed. Reach out anytime with any questions or concerns. MyChart is an excellent way to get ahold of our team. Tristan Guallpa MD Staff, [facility] [place] HPI: This is Ms. Ladi Byers, a 37 year old female who presents to the [facility] clinic with the chief complaint of pain. CC: Pain, excruciating Today: Hospitalized a year ago for stomach ulcer Treated for Cdiff Has been to ENT Left septum deviated it seems Has been told she has TMJ by dentist Pain started a few months ago, maybe beginning of year Constant Just anterior to left ear Like pressure Worse when she moves her jaw Ear feels full on left Ear hurts on inside Gets tinnitus bilateral, same both side ENT last saw her last month Not always able to complete 8 hour shift Nothing sets it off, it's always there Feels better when plugging ear Feels better if she hums Jaw pops Head can spin Room can spin around her When she moves her jaw she gets pain Jaw movement is With jaw movement gets cracking or popping Jaw gets tired after eating Head and neck hurt Does not think she grinds teeth Area has been affected before by trauma, but no clear trauma link to today's symptoms Wearing mouth guard for about 2 months Past history per chart review includes: Past medical history, problem list: Migraine, nephrolithiasis, chlamydia, 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 Speech fluent. Cogent. Responds appropriately. Cranial Nerves: CNII: Visual alas intact. CNIII, IV, : Pupils are reactive to light. Horizontal and vertical gaze intact. CN V: Facial sensation intact bilaterally to touch. Reports left V2 is 80% and left V3 is about 50%. CN VII: Smile is symmetric. CN VIII: Hearing intact to finger rub bilaterally. CN IX: No hypophonia. CN XI: Full strength shoulder shrug bilaterally. CN XII: Tongue protrusion full, midline. Jaw slightly to left Motor: Individual muscle group testing: Right Left Shoulder abduction 5 5 Elbow flexion 5 5 Elbow extension 5 5 Wrist extension 5 5 Wrist flexion Finger extension 5 5 Distal finger flexion 5 5 Thumb abduction Hip flexion Knee extension Knee flexion Dorsiflexion Plantarflexion Ambulates easily. Hops on one foot. Performs multiple deep knee bends. Toe walks Reflexes: R L Biceps 1-2 1 Patellar 2 X (deferred on L per patient preference) Ankle 2 2 Sensation: Intact to sharp in the distal upper and lower extremities. Rhomberg negative. Coordination: Intact evpwvr-ff-wfcx-finger bilaterally. Gait: Stands with arms crossed. Ambulates easily in the clinic ram. Normal, narrow-based gait. Able to tandem walk. Good arm swing. Turns easily. Hops on one foot, then the other. Toe walks [place] Reports reproduction of symptoms left ear down No nystagmus noted Same with right ear down This note was partially created using voice recognition software and is inherently subject to errors including those of syntax and sound-alike substitutions which may escape proofreading. In such instances, original meaning may be extrapolated by contextual derivation. I spent a total of 44 minutes on the date of the service which included time spent talking to the patient/documenting in the chart, examining the patient.[facility]05-06-2023 Hospital Discharge instructions Patient Education 11/07/2022 16:53:43 Hypokalemia Hypokalemia Hypokalemia means that the amount of potassium in the blood is lower than normal. Potassium is a mineral (electrolyte) that helps regulate the amount of fluid in the body. It also stimulates muscle tightening (contraction) and helps nerves work properly. Normally, most of the body's potassium is inside cells, and only a very small amount is in the blood. Because the amount in the blood is so small, minor changes to potassium levels in the blood can be life-threatening. What are the causes? This condition may be caused by: Antibiotic medicine. Diarrhea or vomiting. Taking too much of a medicine that helps you have a bowel movement (laxative)can cause diarrhea and lead to hypokalemia. Chronic kidney disease (CKD). Medicines that help the body get rid of excess fluid (diuretics). Eating disorders, such as anorexia or bulimia. Low magnesium levels in the body. Sweating a lot. What are the signs or symptoms? Symptoms of this condition include: Weakness. Constipation. Fatigue. Muscle cramps. Mental confusion. Skipped heartbeats or irregular heartbeat (palpitations). Tingling or numbness. How is this diagnosed? This condition is diagnosed with a blood test. How is this treated? This condition may be treated by: Taking potassium supplements. Adjusting the medicines that you take. Eating more foods that contain a lot of potassium. If your potassium level is very low, you may need to get potassium through an IV and be monitored in the hospital. Follow these instructions at home: Eating and drinking Eat a healthy diet. A healthy diet includes fresh fruits and vegetables, whole grains, healthy fats, and lean proteins. If told, eat more foods that contain a lot of potassium. These include: ?Nuts, such as peanuts and pistachios. ?Seeds, such as sunflower seeds and pumpkin seeds. ?Peas, lentils, and pena beans. ?Whole grain and bran cereals and breads. ?Fresh fruits and vegetables, such as apricots, avocado, bananas, cantaloupe, kiwi, oranges, tomatoes, asparagus, and potatoes. ?Juices, such as orange, tomato, and prune. ?Lean meats, including fish. ?Milk and milk products, such as yogurt. General instructions Take cgym-srj-mlgmgdg and prescription medicines only as told by your health care provider. This includes vitamins, natural food products, and supplements. Keep all follow-up visits. This is important. Contact a health care provider if: You have weakness that gets worse. You feel your heart pounding or racing. You vomit. You have diarrhea. You have diabetes and you have trouble keeping your blood sugar in your target range. Get help right away if: You have chest pain. You have shortness of breath. You have vomiting or diarrhea that lasts for more than 2 days. You faint. These symptoms may be an emergency. Get help right away. Call 911. Do not wait to see if the symptoms will go away. Do not drive yourself to the hospital. Summary Hypokalemia means that the amount of potassium in the blood is lower than normal. This condition is diagnosed with a blood test. Hypokalemia may be treated by taking potassium supplements, adjusting the medicines that you take, or eating more foods that are high in potassium. If your potassium level is very low, you may need to get potassium through an IV and be monitored in the hospital. This information is not intended to replace advice given to you by your health care provider. Make sure you discuss any questions you have with your health care provider. Document Revised: 03/05/2022 Document Reviewed: 03/05/2022 [employer] Patient Education 2022 [employer]. Follow Up Care 11/06/2022 14:31:05 With:Vito ROBERTSON Address: [address] [place] [address]. [address] [place] [address] Business (1) When: Unknown With:TERESA PATEL Address: [facility] [place] [phone] Business (1) When: Unknown [facility]05-06-2023 Evaluation + Plan noteExtracted from: Title:Discharge Note Author:Mile JUAREZ, Trey Pineda ate:11/07/22 Home Discharge To, Anticipated II - Home independently Discharged to - Home independently Prescriptions folic acid 1 mg Tab, 1 mg= 1 tab(s), Oral, Daily melatonin 3 mg Tab, 3 mg= 1 tab(s), Oral, Bedtime, PRN Metamucil 525 mg oral capsule, 1050 mg= 2 cap(s), Oral, Daily promethazine 25 mg Tab, 25 mg= 1 tab(s), Oral, q6hr, PRN Protonix 40 mg Tab-DR, 40 mg= 1 tab(s), Oral, Daily Vitamin B12 1000 mcg Tab, 1000 mcg= 1 tab(s), Oral, Daily Home busPIRone, 10 mg, Oral, BID Imitrex 100 mg Tab, 100 mg= 1 tab(s), Oral, Daily, PRN Metoprolol tartrate 25 mg Tab, Oral, BID, Not taking Vyvanse 20 mg oral capsule With When Contact Information Vito Sidhu. [address] [place] [address] Business (1) Additional Instructions: TERESA PATEL In 0 days [address] [place] [phone] Business (1) Additional Instructions: Extracted from: Title:ED Note Author:Julia TRONCOSO, Iggy Ambriz Enrike e:11/06/22 1. Acid reflux (K21.9: Gastr o-esophageal reflux disease without esophagitis) 2. Acute hypokalemia (E87.6: Hypokalemia) 3. Hemorrhoids (K64.9: Unspecified hemorrhoids) 4. History of stomach ulcers (Z87.11: Personal history of peptic ulcer disease) 5. LFT elevation (R79.89: Other specified abnormal findings of blood chemistry) 6. Marijuana use (F12.90: Cannabis use, unspecified, uncomplicated) 7. Obesity (E66.9: Obesity, unspecified) 8. Intractable nausea and vomiting (R11.2: Nausea with vomiting, unspecified) 9. Mixed bipolar affective disorder, mild (F31.61: Bipolar disorder, current episode mixed, mild) Orders: famotidine, 20 mg = 2 mL, Soln-IV, IV Push, Once, Stop date 11/06/22 14:45:00 EDT, STAT, Start date 11/06/22 14:45:00 EDT, 11/06/22 14:45:00 EDT ketorolac, 30 mg = 1 mL, Injection, IV Push, Once, Stop date 11/06/22 14:45:00 EDT, STAT, Start date 11/06/22 14:45:00 EDT, 11/06/22 14:45:00 EDT lorazepam, 1 mg = 0.5 mL, Injection, IV Push, Once, Stop date 11/06/22 17:18:00 EDT, STAT, Start date 11/06/22 17:18:00 EDT, 11/06/22 17:18:00 EDT magnesium sulfate + Generic Diluent 50 mL, 2 gram = 50 mL, IV Piggyback, Once, Stop date 11/06/22 16:24:00 EDT, STAT, Start date 11/06/22 16:24:00 EDT, 25 mL/hr, Infuse over 2 hour(s), 11/06/22 16:24:00 EDT morphine, 4 mg = 2 mL, Injection, IV Push, Once, Stop date 11/06/22 17:08:00 EDT, STAT, Start date 11/06/22 17:08:00 EDT, 11/06/22 17:08:00 EDT ondansetron, 4 mg = 2 mL, Injection, IV Push, Once, Stop date 11/06/22 17:17:00 EDT, STAT, Start date 11/06/22 17:17:00 EDT, Infuse over 30 minute(s), 11/06/22 17:17:00 EDT pantoprazole, 40 mg = 10 mL, Injection, IV Push, Once, Stop date 11/06/22 14:45:00 EDT, STAT, Start date 11/06/22 14:45:00 EDT, 11/06/22 14:45:00 EDT promethazine, 12.5 mg = 0.5 mL, Injection, IV Push, Once, Stop date 11/06/22 14:45:00 EDT, STAT, Start date 11/06/22 14:45:00 EDT, 11/06/22 14:45:00 EDT Sodium Chloride 0.9% intravenous solution, 1,000 mL, Soln-IV, IV, Once, Stop date 11/06/22 14:45:00 EDT, STAT, Start date 11/06/22 14:45:00 EDT, Infuse over 61, minute(s) Automated Diff Basic Metabolic Panel Beta hCG Qual CBC w/ Auto Diff CT Abdomen/Pelvis w/ Contrast Drug Screen Urine ECG 12 Lead Adult ECG 12 Lead Adult ED Physician consult Hospitalist for continued care eGFR Extra Blue Tube Extra SST Tube Hepatic Function Panel Lipase Level Troponin 0 Hr. UA With Cult Reflex Future Appointments Appointment Date:11/19/2022 09:20:00 AM Scheduled Provider:Amara Palacio CNP Location:[facility] [place] [facility] Appointment Type:[facility] Follow Up Diagnostic Tests Pending * Clostridium Difficile PCR 11/06/22 * Acute Hepatitis A B C Panel 11/07/22 Future Scheduled Tests Laboratory* Fecal WBC Lactoferrin 10/22/22 * Giardia lamblia, Direct Detection EIA 10/22/22 * O & P Exam, Routine 10/22/22 * Clostridium Difficile PCR 10/22/22 * Enteric Panel by PCR 10/22/22 [facility]04-20-2023 Hospital Discharge instructions Patient Education 10/22/2022 10:51:58 Abdominal Pain, Adult Abdominal Pain, Adult Pain in the abdomen (abdominal pain) can be caused by many things. Often, abdominal pain is not serious and it gets better with no treatment or by being treated at home. However, sometimes abdominal pain is serious. Your health care provider will ask questions about your medical history and do a physical exam to try to determine the cause of your abdominal pain. Follow these instructions at home: Medicines Take jvlp-tfv-onjbgtr and prescription medicines only as told by your health care provider. Do not take a laxative unless told by your health care provider. General instructions Watch your condition for any changes. Drink enough fluid to keep your urine pale yellow. Keep all follow-up visits as told by your health care provider. This is important. Contact a health care provider if: Your abdominal pain changes or gets worse. You are not hungry or you lose weight without trying. You are constipated or have diarrhea for more than 2 3 days. You have pain when you urinate or have a bowel movement. Your abdominal pain wakes you up at night. Your pain gets worse with meals, after eating, or with certain foods. You are vomiting and cannot keep anything down. You have a fever. You have blood in your urine. Get help right away if: Your pain does not go away as soon as your health care provider told you to expect. You cannot stop vomiting. Your pain is only in areas of the abdomen, such as the right side or the left lower portion of the abdomen. Pain on the right side could be caused by appendicitis. You have bloody or black stools, or stools that look like tar. You have severe pain, cramping, or bloating in your abdomen. You have signs of dehydration, such as: ?Dark urine, very little urine, or no urine. ?Cracked lips. ?Dry mouth. ?Sunken eyes. ?Sleepiness. ?Weakness. You have trouble breathing or chest pain. Summary Often, abdominal pain is not serious and it gets better with no treatment or by being treated at home. However, sometimes abdominal pain is serious. Watch your condition for any changes. Take fwxg-tla-cbkyuez and prescription medicines only as told by your health care provider. Contact a health care provider if your abdominal pain changes or gets worse. Get help right away if you have severe pain, cramping, or bloating in your abdomen. This information is not intended to replace advice given to you by your health care provider. Make sure you discuss any questions you have with your health care provider. Document Revised: 08/09/2020 Document Reviewed: 10/30/2019 [employer] Patient Education 2022 [employer]. Follow Up Care 10/14/2022 11:29:35 With:Amara Palacio CNP Address: When:1 month [facility] 01-26-2023 Evaluation + Plan note Future Scheduled Tests Laboratory* [id number]-[id number] 07/30/22 * Ceruloplasmin 07/30/22 * Antimitochondrial Antibody, Quantitative 07/30/22 * Smooth Muscle Antibody Screen 07/30/22 * DAY w/Reflex if POS 07/30/22 * TIBC Calculated 07/30/22 * Celiac Disease Comprehensive 07/30/22 * HCV Antibody RFX to Quant PCR 07/30/22 * CBC w/ Indices 07/30/22 * Comprehensive Metabolic Panel 07/30/22 * Ferritin 07/30/22 * Gastrin Level 12/24/21 * Hepatitis B Surface Antibody 07/30/22 * Hepatitis B Surface Antigen 07/30/22 * Iron Level 07/30/22 * Transferrin 07/30/22 [facility]01-25-2023 Evaluation + Plan noteExtracted from: Title:ED Note Author:Mikal Garcia DO Date :07/29/22 Abdominal pain, acute (R10.9 : Unspecified abdominal pain) Hypokalemia (E87.6: Hypokalemia) N&V (nausea and vomiting) (R11.2: Nausea with vomiting, unspecified) Orders: Al hydroxide/Mg hydroxide/simethicone, 30 mL, Susp-Oral, Oral, Once, Stop date 07/29/22 2:38:00 EST, STAT, Start date 07/29/22 2:38:00 EST atropine/hyoscyamine/PB/scopolamine, 10 mL, Elixir, Oral, Once, Stop date 07/29/22 2:38:00 EST, STAT, Start date 07/29/22 2:38:00 EST dicyclomine, 10 mg = 1 cap(s), Oral, QID, X 7 day(s), # 28 cap(s), Refills(s) 0, Pharmacy: [facility]/pharmacy #[id number], 152, cm, 07/29/22 2:29:00 EST, Height/Length Dosing, 64, kg, 07/29/22 2:29:00 EST, Weight Dosing dicyclomine, 10 mg = 1 cap(s), Cap, Oral, Once, Stop date 07/29/22 4:33:00 EST, STAT, Start date 07/29/22 4:33:00 EST, 07/29/22 4:33:00 EST famotidine, 20 mg = 2 mL, Soln-IV, IV Push, Once, Stop date 07/29/22 2:38:00 EST, STAT, Start date 07/29/22 2:38:00 EST, 07/29/22 2:38:00 EST Lactated Ringers Injection, 1,000 mL, Soln-IV, IV, Once, Stop date 07/29/22 4:24:00 EST, STAT, Start date 07/29/22 4:24:00 EST, Infuse over 61, minute(s) Lactated Ringers Injection, Soln-IV, Misc, Once, Stop date 07/29/22 2:37:21 EST, Physician Stop, 07/29/22 2:37:21 EST Lactated Ringers Injection, 1,000 mL, Soln-IV, IV, Once, Stop date 07/29/22 2:23:00 EST, STAT, Start date 07/29/22 2:23:00 EST, Infuse over 61, minute(s) Lactated Ringers Injection, Soln-IV, Misc, Once, Stop date 07/29/22 4:29:48 EST, Physician Stop, 07/29/22 4:29:48 EST lidocaine topical, 200 mg, 10 mL, Soln-Oral, Oral, Once, Stop date 07/29/22 2:38:00 EST, STAT, Start date 07/29/22 2:38:00 EST morphine, 4 mg = 2 mL, Injection, IV Push, Once, Stop date 07/29/22 3:21:00 EST, STAT, Start date 07/29/22 3:21:00 EST, 07/29/22 3:21:00 EST ondansetron, 4 mg = 2 mL, Injection, IV Push, Once, Stop date 07/29/22 2:23:00 EST, STAT, Start date 07/29/22 2:23:00 EST, 07/29/22 2:23:00 EST pantoprazole, 40 mg = 10 mL, Injection, IV Push, Once, Stop date 07/29/22 2:38:00 EST, STAT, Start date 07/29/22 2:38:00 EST, 07/29/22 2:38:00 EST pantoprazole, 40 mg = 1 tab(s), Oral, Daily, # 30 tab(s), Refills(s) 0, Pharmacy: [facility]/pharmacy #[id number], 152, cm, 07/29/22 2:29:00 EST, Height/Length Dosing, 64, kg, 07/29/22 2:29:00 EST, Weight Dosing potassium chloride, 40 mEq = 2 tab(s), Tab-ER, Oral, Once, Stop date 07/29/22 4:25:00 EST, STAT, Start date 07/29/22 4:25:00 EST, 07/29/22 4:25:00 EST promethazine, 12.5 mg = 0.5 mL, Injection, IV Push, Once, Stop date 07/29/22 3:21:00 EST, STAT, Start date 07/29/22 3:21:00 EST, 07/29/22 3:21:00 EST promethazine, 12.5 mg = 0.5 mL, Injection, IV Push, Once, Stop date 07/29/22 4:33:00 EST, STAT, Start date 07/29/22 4:33:00 EST, 07/29/22 4:33:00 EST sucralfate, 1 gm = 1 tab(s), Oral, QID, X 14 day(s), # 56 tab(s), Refills(s) 0, Pharmacy: [facility]/pharmacy #[id number], 152, cm, 07/29/22 2:29:00 EST, Height/Length Dosing, 64, kg, 07/29/22 2:29:00 EST, Weight Dosing Automated Diff Basic Metabolic Panel CBC w/ Auto Diff CT Abdomen/Pelvis w/ Contrast eGFR Hepatic Function Panel Lipase Level U Beta Hcg Qual UA With Cult Reflex Future Appointments Appointment Date:07/30/2022 12:30:00 PM Scheduled Provider:Vito ROBERTSON MD Location:[facility] Appointment Type:[facility] Follow Up Future Scheduled Tests Laboratory* Gastrin Level 12/24/21 [facility]01-25-2023 Hospital Discharge instructions Patient Education 07/29/2022 05:43:13 Abdominal Pain, Adult Abdominal Pain, Adult Pain in the abdomen (abdominal pain) can be caused by many things. Often, abdominal pain is not serious and it gets better with no treatment or by being treated at home. However, sometimes abdominal pain is serious. Your health care provider will ask questions about your medical history and do a physical exam to try to determine the cause of your abdominal pain. Follow these instructions at home: Medicines Take tcpq-pms-tqzukuw and prescription medicines only as told by your health care provider. Do not take a laxative unless told by your health care provider. General instructions Watch your condition for any changes. Drink enough fluid to keep your urine pale yellow. Keep all follow-up visits as told by your health care provider. This is important. Contact a health care provider if: Your abdominal pain changes or gets worse. You are not hungry or you lose weight without trying. You are constipated or have diarrhea for more than 2 3 days. You have pain when you urinate or have a bowel movement. Your abdominal pain wakes you up at night. Your pain gets worse with meals, after eating, or with certain foods. You are vomiting and cannot keep anything down. You have a fever. You have blood in your urine. Get help right away if: Your pain does not go away as soon as your health care provider told you to expect. You cannot stop vomiting. Your pain is only in areas of the abdomen, such as the right side or the left lower portion of the abdomen. Pain on the right side could be caused by appendicitis. You have bloody or black stools, or stools that look like tar. You have severe pain, cramping, or bloating in your abdomen. You have signs of dehydration, such as: ?Dark urine, very little urine, or no urine. ?Cracked lips. ?Dry mouth. ?Sunken eyes. ?Sleepiness. ?Weakness. You have trouble breathing or chest pain. Summary Often, abdominal pain is not serious and it gets better with no treatment or by being treated at home. However, sometimes abdominal pain is serious. Watch your condition for any changes. Take mssf-srr-plfbeny and prescription medicines only as told by your health care provider. Contact a health care provider if your abdominal pain changes or gets worse. Get help right away if you have severe pain, cramping, or bloating in your abdomen. This information is not intended to replace advice given to you by your health care provider. Make sure you discuss any questions you have with your health care provider. Document Released: 03/31/2006 Document Revised: 10/30/2019 Document Reviewed: 10/30/2019 [employer] Patient Education 2020 [employer]. Follow Up Care 07/29/2022 02:21:57 With:Vito ROBERTSON Address: [address] [place] [address]. [address] [place] [address] Business (1) When:08/01/2022 With:TERESA PATEL Address: [address] [place] [phone] Business (1) When:08/01/2022 [facility]09-16-2022 Evaluation + Plan note Diagnostic Tests Pending * Clostridium difficile by PCR 03/20/22 Future Scheduled Tests Laboratory* Gastrin Level 12/24/21 [facility]09-15-2022 Evaluation + Plan note Future Scheduled Tests Laboratory* Clostridium difficile by PCR 03/19/22 * Gastrin Level 12/24/21 [facility] [id number] History of Present illness Narrative* Brooks Lamb MD - 03/19/2022 8:04 AM EDT CHIEF COMPLAINT: Patient presents with: Eval for Fecal Transplant : C Diff since October- 3 rounds of antibiotics and nothing is helping This consult was requested by Amara Palacio CNP for an opinion regarding recurrent C diff infection. My final recommendations will be communicated to the requesting health care provider by way of the shared medical record for internal providers or letter via the [employer] for external providers. HPI: Ladi Byers is a 37 year old female who presents for Eval for Fecal Transplant (C Diff since October- 3 rounds of antibiotics and nothing is helping ). ER visit in October 2021 - PUD + C diff. Feb 2022 - healed PUD. Gets 7-10 Bms/day. Given Vancomycin X 1 course. Then Difficid X 2 course. Continues to have diarrhea. Nausea + Denies any blood in stool. Mucus + Abdominal pain/cramps + Bloating + No prior colonoscopy. 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 No sick contacts. PUD thought to be secondary to Ibuprofen. Record Review: [facility] / Outside records reviewed. PAST MEDICAL HISTORY Diagnosis Date Abnormal Pap smear Normal x 2 since then C. difficile diarrhea Cervical dysplasia or atypia status post cryo treatment Chlamydia 07/05/2004 Headache(784.0) 07/05/2009 Daily-qod, thoracic to base of skull, tightening, no time of day Migraine headache 07/05/2003 Photophobia, nausea, vomiting, weekly Nephrolithiasis 07/05/2004 PAST SURGICAL HISTORY Procedure Laterality Date ACL repair Left knee KNEE ARTHROSCOPY Allergies: ALLERGIES Allergen Reactions Cariprazine Other: See Comments Iothalamic Acid Other: See Comments Metoclopramide Other: See Comments Penicillins Ishmael Escalera [Metoclopram* Mental Status Change Medications: busPIRone (BUSPAR) 10 mg tablet TAKE 1 TABLET BY MOUTH TWICE A DAY FOR 30 DAYS metoprolol tartrate, short acting, (LOPRESSOR) 50 mg tablet Take 50 mg by mouth twice daily. etonogestrel (NEXPLANON) 68 mg impl subdermal implant Inject 68 mg subcutaneously. promethazine (PHENERGAN) 25 mg tablet Take 0.5 mg by mouth. cetirizine (ZYRTEC) 10 mg tablet Take 10 mg by mouth daily at bedtime. omeprazole (PRILOSEC) 40 mg capsule Take 40 mg by mouth once daily. 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 Gas, Heartburn All other systems reviewed and are negative. Are you taking any blood thinners? No Physical Examination: BP 108/72 Pulse 91 Ht 5' 0 (1.52m) Wt 151 lb 11.2 oz (68.8kg) LMP 01/09/2004 BMI 29.63 kg/(m^2). Physical Exam Constitutional: Appearance: Normal appearance. HENT: Head: Normocephalic. Mouth/Throat: Mouth: Mucous membranes are moist. Eyes: Extraocular Movements: Extraocular movements intact. Cardiovascular: Rate and Rhythm: Normal rate. Pulses: Normal pulses. Pulmonary: Effort: Pulmonary effort is normal. Abdominal: General: There is no distension. Palpations: Abdomen is soft. There is no mass. Tenderness: There is no abdominal tenderness. There is no guarding. Musculoskeletal: Cervical back: Normal range of motion and neck supple. Right lower leg: No edema. Left lower leg: No edema. Skin: General: Skin is warm and dry. Neurological: General: No focal deficit present. Mental Status: She is alert and oriented to person, place, and time. Psychiatric: Mood and Affect: Mood normal. Behavior: Behavior normal. ASSESSMENT: Ms. Ladi Byers is a very pleasant 37 year old lady with PMH/PSH found to have PUD and C diff infection in October. Since then had 3 courses of antibiotics (Vancomycin X 1, Difficid X 2) but persistent diarrhea here for FMT evaluation. PLAN: Check CBC, CMP Check stool c/s, o/p, c diff, stool calprotectin Avoid NSAIDs. RTC 3 months/PRN. Brooks Lamb MD DATE: 03/19/22 TIME: 8:13 AM CC: Amara Palacio, LEILA [facility] Discharge instructions Patient Education 02/19/2022 10:44:55 Peptic Ulcer, Hwdr-wj-Urzn Peptic Ulcer A peptic ulcer is a painful sore in the lining of your stomach or the first part of your small intestine. What are the causes? Common causes of this condition include: An infection. Using certain pain medicines too often or too much. What increases the risk? You are more likely to get this condition if you: Smoke. Have a family history of ulcer disease. Drink alcohol. Have been hospitalized in an intensive care unit (ICU). What are the signs or symptoms? Symptoms include: Burning pain in the area between the chest and the belly button. The pain may: ?Not go away (be persistent). ?Be worse when your stomach is empty. ?Be worse at night. Heartburn. Feeling sick to your stomach (nauseous) and throwing up (vomiting). Bloating. If the ulcer results in bleeding, it can cause you to: Have poop (stool) that is black and looks like tar. Throw up bright red blood. Throw up material that looks like coffee grounds. How is this treated? Treatment for this condition may include: Stopping things that can cause the ulcer, such as: ?Smoking. ?Using pain medicines. Medicines to reduce stomach acid. Antibiotic medicines if the ulcer is caused by an infection. A procedure that is done using a small, flexible tube that has a camera at the end (upper endoscopy). This may be done if you have a bleeding ulcer. Surgery. This may be needed if: ?You have a lot of bleeding. ?The ulcer caused a hole somewhere in the digestive system. Follow these instructions at home: Do not drink alcohol if your doctor tells you not to drink. Limit how much caffeine you take in. Do not use any products that contain nicotine or tobacco, such as cigarettes, e- cigarettes, and chewing tobacco. If you need help quitting, ask your doctor. Take ubww-euk-mqovjpu and prescription medicines only as told by your doctor. ?Do not stop or change your medicines unless you talk with your doctor about it first. ?Do not take aspirin, ibuprofen, or other NSAIDs unless your doctor told you to do so. Keep all follow-up visits as told by your doctor. This is important. Contact a doctor if: You do not get better in 7 days after you start treatment. You keep having an upset stomach (indigestion) or heartburn. Get help right away if: You have sudden, sharp pain in your belly (abdomen). You have belly pain that does not go away. You have bloody poop (stool) or black, tarry poop. You throw up blood. It may look like coffee grounds. You feel light-headed or feel like you may pass out (faint). You get weak. You get sweaty or feel sticky and cold to the touch (clammy). Summary Symptoms of a peptic ulcer include burning pain in the area between the chest and the belly button. Take medicines only as told by your doctor. Limit how much alcohol and caffeine you have. Keep all follow-up visits as told by your doctor. This information is not intended to replace advice given to you by your health care provider. Make sure you discuss any questions you have with your health care provider. Document Released: 09/15/2010 Document Revised: 12/27/2018 Document Reviewed: 12/27/2018 [employer] Patient Education 2020 [employer]. Follow Up Care 02/10/2022 14:51:10 With:MARCELO JUAREZ, BRITTNI Padron, [facility] Address: [address] [place], [place] [address]. [address] [place] [phone] When:1 to 2 weeks Comments:Elevated liver enzymes. [facility] [id number] Hospital Discharge instructions Patient Education 02/09/2022 09:04:31 Endoscopy, Care After Procedure [facility] ([facility]) Endoscopy Care After Procedure Please read the instructions outlined below and refer to this sheet in the next few weeks. These discharge instructions provide you with general information on caring [facility] Your doctor may also give you specific instructions. While your treatment has been planned according to the most current medical practices available, unavoidable complications occasionally occur. If you have any problems or questions after discharge, please call your doctor. ACTIVITY You may resume your regular activity but move at a slower pace for the next 24 hours. Take frequent rest periods for the next 24 hours. Walking will help expel (get rid of) the air and reduce the bloated feeling in your abdomen. No driving for 24 hours (because of the anesthesia (medicine) used during the test). You may shower. Do not sign any important legal documents or operate any machinery for 24 hours (because of the anesthesia used during the test). NUTRITION Drink plenty of fluids. You may resume your normal diet. Begin with a light meal and progress to your normal diet. Avoid alcoholic beverages for 24 hours or as instructed by your caregiver. MEDICATIONS You may resume your normal medications unless your caregiver tells you otherwise. WHAT YOU CAN EXPECT TODAY You may experience abdominal discomfort such as a feeling of fullness or gas pains. FOLLOW-UP Your doctor will discuss the results of your test with you. SEEK IMMEDIATE MEDICAL ATTENTION IF ANY OF THE FOLLOWING OCCUR: Excessive nausea (feeling sick to your stomach) and/or vomiting. Severe abdominal pain and distention (swelling). Trouble swallowing. Temperature over 100 F (37.8 C). Rectal bleeding or vomiting of blood. Document Released: 02/02/2005 Document Re-Released: 12/13/2006 ExitCare Patient Information 2009 [employer]. Follow Up Care 12/24/2021 09:43:04 With:Vito ROBERTSON Address: [address] [place] [address]. [address] [place] [address] [facility] ([employer] When:1 to 2 weeks Comments:Call for any problems. Office will call for follow up appointment [facility]08-01-2022 Hospital Discharge instructions Patient Education 02/02/2022 08:53:42 Clostridioides Difficile Infection Clostridioides Difficile Infection Clostridioides difficile infection, also known as C. difficile or C. diff infection, happens when too much C. diff bacteria grows and causes inflammation of the colon (colitis). It is linked to recent use of antibiotic medicine. This infection can be passed from person to person (is contagious). You may also be exposed to the bacteria in the environment, such as from contact with food, water, or surfaces that have the bacteria on them. What are the causes? Certain bacteria live in the colon and help to digest food. This infection develops when the balance of helpful bacteria in the colon changes and the C. diff bacteria grow out of control. This is caused by taking antibiotics. What increases the risk? The following factors may make you more likely to develop this condition: Taking certain antibiotics that kill many types of bacteria or taking antibiotics for a long time. Having an extended stay in health care settings, such as hospitals and long-term care facilities. Being older than age 65. Having had a C. diff infection before or a known exposure to C. diff bacteria. Having a weak disease-fighting system (immune system). Taking a medicine to reduce stomach acid, such as a proton pump inhibitor, for a long time. Having a serious underlying condition, such as colon cancer or inflammatory bowel disease (IBD). Having had a gastrointestinal (GI) tract procedure or surgery. Some people develop this infection even though they do not have any known risk factors. What are the signs or symptoms? Symptoms of this condition include: Diarrhea (three or more times a day) for several days. Fever. Tiredness (fatigue). Loss of appetite. Nausea. Swelling, pain, cramping, or tenderness in the abdomen. How is this diagnosed? This condition is diagnosed with: Your medical history and a physical exam. Tests, which may include: ?A test for C. diff in your stool (feces). ?Blood tests. ?Imaging tests, such as a CT scan of your abdomen. A procedure in which your health care provider can look inside your colon. This is rare. How is this treated? Treatment for this condition may include: Stopping the antibiotics that you were taking when the C. diff infection began. Do this only as told by your health care provider. Taking certain antibiotics to stop C. diff growth. Taking donor stool from a healthy person and placing it into the colon (fecal transplant). This maybe done if the infection keeps coming back. Having surgery to remove the infected part of the colon. This is rare. Follow these instructions at home: Medicines Take fnre-kje-mehhguw and prescription medicines only as told by your health care provider. Take your antibiotic medicine as told by your health care provider. Do not stop taking the antibiotic even if you start to feel better. Do not treat diarrhea with medicines unless your health care provider tells you to. Eating and drinking Follow instructions from your health care provider about eating or drinking restrictions. Eat foods that are bland and easy to digest in small amounts as you can. These foods include bananas, applesauce, rice, lean meats, toast, and crackers. Follow instructions on how to replace body fluid that has been lost (rehydrate). This may include: ?Drinking clear fluids, such as water, clear fruit juice, and low-calorie sports drinks. ?Sucking on ice chips. ?Taking an oral rehydration solution (ORS). This drink is sold at pharmacies and retail stores. Avoid milk, caffeine, and alcohol. Drink enough fluid to keep your urine pale yellow. Activity Rest as told by your health care provider. Return to your normal activities as told by your health care provider. Ask your health care provider what activities are safe for you. General instructions Wash your hands often with soap and water for at least 20 seconds. Bathe using soap and water daily. Be sure your home is clean before you leave the hospital or clinic to go home. Continue daily cleaning for at least a week after going home. Keep all follow-up visits as told by your health care provider. This is important. How is this prevented? Hand hygiene Wash your hands thoroughly with soap and water for at least 20 seconds before preparing food and after using the bathroom. Make sure the people you live with also wash their hands often with soap andwater for at least 20 seconds. If you are being treated at a hospital or clinic, make sure that all health care providers and visitors wash their hands with soap and water before touching you. Contact precautions If you develop diarrhea while in the hospital or a long-term care facility, tell your health care team right away. When visiting someone in the hospital or a long-term care facility, follow guidelines for wearing agown, gloves, or other protective equipment. If possible, avoid contact with people who have diarrhea. If you are sick and live with other people, use a separate bathroom, if possible. Clean environment Clean surfaces that are touched often every day. C. diff bacteria are very resistant to cleaning and can live for months on surfaces. The bacteria are killed only by cleaning products containing 10%-solution chlorine bleach. Be sure to: ?Read the elementary school counselor's instructions or read online resources to find out if the product you are using will work for the surface you are cleaning. ?Clean frequently touched surfaces, such as toilets (remember the flush handle), bathtubs, sinks, door knobs, and work surfaces. If you are in the [facility], make sure that staff members clean the surfaces in your room daily. Shirin staff person know right away if body fluids have splashed or spilled. Washing clothes and linens Use a laundry detergent containing chlorine bleach. Be sure to use powder detergent instead of liquid. Only some liquid detergents have bleaching agents that contain chlorine bleach. Powder detergents contain chlorine bleach in low levels to help kill any bacteria. Run your washing machine on the hot setting once a month without clothes or linens but with enough detergent for washing at full capacity. This will kill any remaining C. diff bacteria. Contact a health care provider if: Your symptoms do not get better, or they get worse, even with treatment. Your symptoms go away and then come back. You have a fever. You develop new symptoms. Get help right away if: You have more pain or tenderness in your abdomen. You have stool that is mostly bloody, or your stool looks dark black and tarry. You cannot eat or drink without vomiting. You have signs or symptoms of dehydration, such as: ?Dark urine, very little urine, or no urine. ?Cracked lips or dry mouth. ?Not making tears when you cry. ?Sunken eyes. ?Sleepiness. ?Weakness or dizziness. Summary Clostridioides difficile, or C. diff, infection happens when too much C. diff bacteria grows and causes inflammation of the colon (colitis) after antibiotic use. Symptoms of this infection include diarrhea, fever, tiredness (fatigue), loss of appetite, nausea, and symptoms affecting the abdomen. This infection may be treated by stopping the antibiotics you were using when the infection began, and then taking certain antibiotics to stop C. diff from growing. Sometimes, fecal transplant or surgery is done. Handwashing, contact precautions, a clean environment, and washing clothes and linens can help prevent or limit spread of this infection. This information is not intended to replace advice given to you by your health care provider. Make sure you discuss any questions you have with your health care provider. Document Released: 03/31/2006 Document Revised: 11/15/2019 Document Reviewed: 11/15/2019 [employer] Patient Education 2020 [employer]. Follow Up Care 01/12/2022 08:08:14 With:MARCELO JUAREZ, BRITTNI Padron, [facility] Address: [address] [place] [address]. [address] [place] [address] When:1 month [facility] [phone] Hospital Discharge instructions Patient Education 01/12/2022 14:42:18 Hypomagnesemia Hypomagnesemia Hypomagnesemia is a condition in which the level of magnesium in the blood is low. Magnesium is a mineral that is found in many foods. It is used in many different processes in the body. Hypomagnesemia can affect every organ in the body. In severe cases, it can cause life-threatening problems. What are the causes? This condition may be caused by: Not getting enough magnesium in your diet. Malnutrition. Problems with absorbing magnesium from the intestines. Dehydration. Alcohol abuse. Vomiting. Severe or chronic diarrhea. Some medicines, including medicines that make you urinate more (diuretics). Certain diseases, such as kidney disease, diabetes, celiac disease, and overactive thyroid. What are the signs or symptoms? Symptoms of this condition include: Loss of appetite. Nausea and vomiting. Involuntary shaking or trembling of a body part (tremor). Muscle weakness. Tingling in the arms and legs. Sudden tightening of muscles (muscle spasms). Confusion. Psychiatric issues, such as depression, irritability, or psychosis. A feeling of fluttering of the heart. Seizures. These symptoms are more severe if magnesium levels drop suddenly. How is this diagnosed? This condition may be diagnosed based on: Your symptoms and medical history. A physical exam. Blood and urine tests. How is this treated? Treatment depends on the cause and the severity of the condition. It may be treated with: A magnesium supplement. This can be taken in pill form. If the condition is severe, magnesium is usually given through an IV. Changes to your diet. You may be directed to eat foods that have a lot of magnesium, such as green leafy vegetables, peas, beans, and nuts. Stopping any intake of alcohol. Follow these instructions at home: Make sure that your diet includes foods with magnesium. Foods that have a lot of magnesium in them include: ?Green leafy vegetables, such as spinach and broccoli. ?Beans and peas. ?Nuts and seeds, such as almonds and sunflower seeds. ?Whole grains, such as whole grain bread and fortified cereals. Take magnesium supplements if your health care provider tells you to do that. Take them as directed. Take arlv-lxu-jtklsxi and prescription medicines only as told by your health care provider. Have your magnesium levels monitored as told by your health care provider. When you are active, drink fluids that contain electrolytes. Avoid drinking alcohol. Keep all follow-up visits as told by your health care provider. This is important. Contact a health care provider if: You get worse instead of better. Your symptoms return. Get help right away if you: Develop severe muscle weakness. Have trouble breathing. Feel that your heart is racing. Summary Hypomagnesemia is a condition in which the level of magnesium in the blood is low. Hypomagnesemia can affect every organ in the body. Treatment may include eating more foods that contain magnesium, taking magnesium supplements, and not drinking alcohol. Have your magnesium levels monitored as told by your health care provider. This information is not intended to replace advice given to you by your health care provider. Make sure you discuss any questions you have with your health care provider. Document Released: 03/17/2006 Document Revised: 06/03/2018 Document Reviewed: 05/23/2018 [employer] Patient Education 2020 [employer]. 01/12/2022 14:42:18 Hypokalemia Hypokalemia Hypokalemia means that the amount of potassium in the blood is lower than normal. Potassium is a chemical (electrolyte) that helps regulate the amount of fluid in the body. It also stimulates muscle tightening (contraction) and helps nerves work properly. Normally, most of the body's potassium is inside cells, and only a very small amount is in the blood. Because the amount in the blood is so small, minor changes to potassium levels in the blood can be life-threatening. What are the causes? This condition may be caused by: Antibiotic medicine. Diarrhea or vomiting. Taking too much of a medicine that helps you have a bowel movement (laxative)can cause diarrhea and lead to hypokalemia. Chronic kidney disease (CKD). Medicines that help the body get rid of excess fluid (diuretics). Eating disorders, such as bulimia. Low magnesium levels in the body. Sweating a lot. What are the signs or symptoms? Symptoms of this condition include: Weakness. Constipation. Fatigue. Muscle cramps. Mental confusion. Skipped heartbeats or irregular heartbeat (palpitations). Tingling or numbness. How is this diagnosed? This condition is diagnosed with a blood test. How is this treated? This condition may be treated by: Taking potassium supplements by mouth. Adjusting the medicines that you take. Eating more foods that contain a lot of potassium. If your potassium level is very low, you may need to get potassium through an IV and be monitored in the hospital. Follow these instructions at home: Take upvd-mrk-vkdzfpq and prescription medicines only as told by your health care provider. This includes vitamins and supplements. Eat a healthy diet. A healthy diet includes fresh fruits and vegetables, whole grains, healthy fats, and lean proteins. If instructed, eat more foods that contain a lot of potassium. This includes: ?Nuts, such as peanuts and pistachios. ?Seeds, such as sunflower seeds and pumpkin seeds. ?Peas, lentils, and pena beans. ?Whole grain and bran cereals and breads. ?Fresh fruits and vegetables, such as apricots, avocado, bananas, cantaloupe, kiwi, oranges, tomatoes, asparagus, and potatoes. ?[place] juice. ?Tomato juice. ?Red meats. ?Yogurt. Keep all follow-up visits as told by your health care provider. This is important. Contact a health care provider if you: Have weakness that gets worse. Feel your heart pounding or racing. Vomit. Have diarrhea. Have diabetes (diabetes mellitus) and you have trouble keeping your blood sugar (glucose) in your target range. Get help right away if you: Have chest pain. Have shortness of breath. Have vomiting or diarrhea that lasts for more than 2 days. Faint. Summary Hypokalemia means that the amount of potassium in the blood is lower than normal. This condition is diagnosed with a blood test. Hypokalemia may be treated by taking potassium supplements, adjusting the medicines that you take, or eating more foods that are high in potassium. If your potassium level is very low, you may need to get potassium through an IV and be monitored in the hospital. This information is not intended to replace advice given to you by your health care provider. Make sure you discuss any questions you have with your health care provider. Document Released: 06/21/2006 Document Revised: 02/01/2019 Document Reviewed: 02/01/2019 [employer] Patient Education 2020 [employer]. 01/12/2022 14:42:18 Diarrhea, Adult Diarrhea, Adult Diarrhea is frequent loose and watery bowel movements. Diarrhea can make you feel weak and cause you to become dehydrated. Dehydration can make you tired and thirsty, cause you to have a dry mouth, and decrease how often you urinate. Diarrhea typically lasts 2 3 days. However, it can last longer if it is a sign of something more serious. It is important to treat your diarrhea as told by your health care provider. Follow these instructions at home: Eating and drinking Follow these recommendations as told by your health care provider: Take an oral rehydration solution (ORS). This is an tfkw-pyx-skprmiz medicine that helps return your body to its normal balance of nutrients and water. It is found at pharmacies and retail stores. Drink plenty of fluids, such as water, ice chips, diluted fruit juice, and low- calorie sports drinks. You can drink milk also, if desired. Avoid drinking fluids that contain a lot of sugar or caffeine, such as energy drinks, sports drinks, and soda. Eat bland, ujsl-ui-fjnvay foods in small amounts as you are able. These foods include bananas, applesauce, rice, lean meats, toast, and crackers. Avoid alcohol. Avoid spicy or fatty foods. Medicines Take udtn-oxh-cmaftlc and prescription medicines only as told by your health care provider. If you were prescribed an antibiotic medicine, take it as told by your health care provider. Do notstop using the antibiotic even if you start to feel better. General instructions Wash your hands often using soap and water. If soap and water are not available, use a hand commercial counsel. Others in the household should wash their hands as well. Hands should be washed: ?After using the toilet or changing a diaper. ?Before preparing, cooking, or serving food. ?While caring for a sick person or while visiting someone in a hospital. Drink enough fluid to keep your urine pale yellow. Rest at home while you recover. Watch your condition for any changes. Take a warm bath to relieve any burning or pain from frequent diarrhea episodes. Keep all follow-up visits as told by your health care provider. This is important. Contact a health care provider if: You have a fever. Your diarrhea gets worse. You have new symptoms. You cannot keep fluids down. You feel light-headed or dizzy. You have a headache. You have muscle cramps. Get help right away if: You have chest pain. You feel extremely weak or you faint. You have bloody or black stools or stools that look like tar. You have severe pain, cramping, or bloating in your abdomen. You have trouble breathing or you are breathing very quickly. Your heart is beating very quickly. Your skin feels cold and clammy. You feel confused. You have signs of dehydration, such as: ?Dark urine, very little urine, or no urine. ?Cracked lips. ?Dry mouth. ?Sunken eyes. ?Sleepiness. ?Weakness. Summary Diarrhea is frequent loose and watery bowel movements. Diarrhea can make you feel weak and cause you to become dehydrated. Drink enough fluids to keep your urine pale yellow. Make sure that you wash your hands after using the toilet. If soap and water are not available, usehand commercial counsel. Contact a health care provider if your diarrhea gets worse or you have new symptoms. Get help right away if you have signs of dehydration. This information is not intended to replace advice given to you by your health care provider. Make sure you discuss any questions you have with your health care provider. Document Released: 06/11/2003 Document Revised: 11/07/2019 Document Reviewed: 11/25/2018 [employer] Patient Education 2020 [employer]. 01/12/2022 14:42:18 Nausea and Vomiting, Adult Nausea and Vomiting, Adult Nausea is the feeling that you have an upset stomach or that you are about to vomit. Vomiting is when stomach contents are thrown up and out of the mouth as a result of nausea. Vomiting can make you feel weak and cause you to become dehydrated. Dehydration can make you feel tired and thirsty, cause you to have a dry mouth, and decrease how often you urinate. Older adults and people with other diseases or a weak disease-fighting system (immune system) are at higher risk for dehydration. It is important to treat your nausea and vomiting as told by your health care provider. Follow these instructions at home: Watch your symptoms for any changes. Tell your health care provider about them. Follow these instructions to care for yourself at home. Eating and drinking Take an oral rehydration solution (ORS). This is a drink that is sold at pharmacies and retail stores. Drink clear fluids slowly and in small amounts as you are able. Clear fluids include water, ice chips, low-calorie sports drinks, and fruit juice that has water added (diluted fruit juice). Eat bland, yduo-ql-ynkkqt foods in small amounts as you are able. These foods include bananas, applesauce, rice, lean meats, toast, and crackers. Avoid fluids that contain a lot of sugar or caffeine, such as energy drinks, sports drinks, and soda. Avoid alcohol. Avoid spicy or fatty foods. General instructions Take ruzf-hjt-rdrzenu and prescription medicines only as told by your health care provider. Drink enough fluid to keep your urine pale yellow. Wash your hands often using soap and water. If soap and water are not available, use hand commercial counsel. Make sure that all people in your household wash their hands well and often. Rest at home while you recover. Watch your condition for any changes. Breathe slowly and deeply when you feel nauseated. Keep all follow-up visits as told by your health care provider. This is important. Contact a health care provider if: Your symptoms get worse. You have new symptoms. You have a fever. You cannot drink fluids without vomiting. Your nausea does not go away after 2 days. You feel light-headed or dizzy. You have a headache. You have muscle cramps. You have a rash. You have pain while urinating. Get help right away if: You have pain in your chest, neck, arm, or jaw. You feel extremely weak or you faint. You have persistent vomiting. You have vomit that is bright red or looks like black coffee grounds. You have bloody or black stools or stools that look like tar. You have a severe headache, a stiff neck, or both. You have severe pain, cramping, or bloating in your abdomen. You have difficulty breathing, or you are breathing very quickly. Your heart is beating very quickly. Your skin feels cold and clammy. You feel confused. You have signs of dehydration, such as: ?Dark urine, very little urine, or no urine. ?Cracked lips. ?Dry mouth. ?Sunken eyes. ?Sleepiness. ?Weakness. These symptoms may represent a serious problem that is an emergency. Do not wait to see if the symptoms will go away. Get medical help right away. Call your local emergency services (911 in the [place] Do not drive yourself to the hospital. Summary Nausea is the feeling that you have an upset stomach or that you are about to vomit. As nausea getsworse, it can lead to vomiting. Vomiting can make you feel weak and cause you to become dehydrated. Follow instructions from your health care provider about eating and drinking to prevent dehydration. Take acql-cpv-rwlfiyh and prescription medicines only as told by your health care provider. Contact your health care provider if your symptoms get worse, or you have new symptoms. Keep all follow-up visits as told by your health care provider. This is important. This information is not intended to replace advice given to you by your health care provider. Make sure you discuss any questions you have with your health care provider. Document Released: 06/21/2006 Document Revised: 10/13/2019 Document Reviewed: 11/29/2018 [employer] Patient Education 2020 [employer]. 01/12/2022 14:42:18 Abdominal Pain, Adult Abdominal Pain, Adult Pain in the abdomen (abdominal pain) can be caused by many things. Often, abdominal pain is not serious and it gets better with no treatment or by being treated at home. However, sometimes abdominal pain is serious. Your health care provider will ask questions about your medical history and do a physical exam to try to determine the cause of your abdominal pain. Follow these instructions at home: Medicines Take ilsw-efr-bbgaqmk and prescription medicines only as told by your health care provider. Do not take a laxative unless told by your health care provider. General instructions Watch your condition for any changes. Drink enough fluid to keep your urine pale yellow. Keep all follow-up visits as told by your health care provider. This is important. Contact a health care provider if: Your abdominal pain changes or gets worse. You are not hungry or you lose weight without trying. You are constipated or have diarrhea for more than 2 3 days. You have pain when you urinate or have a bowel movement. Your abdominal pain wakes you up at night. Your pain gets worse with meals, after eating, or with certain foods. You are vomiting and cannot keep anything down. You have a fever. You have blood in your urine. Get help right away if: Your pain does not go away as soon as your health care provider told you to expect. You cannot stop vomiting. Your pain is only in areas of the abdomen, such as the right side or the left lower portion of the abdomen. Pain on the right side could be caused by appendicitis. You have bloody or black stools, or stools that look like tar. You have severe pain, cramping, or bloating in your abdomen. You have signs of dehydration, such as: ?Dark urine, very little urine, or no urine. ?Cracked lips. ?Dry mouth. ?Sunken eyes. ?Sleepiness. ?Weakness. You have trouble breathing or chest pain. Summary Often, abdominal pain is not serious and it gets better with no treatment or by being treated at home. However, sometimes abdominal pain is serious. Watch your condition for any changes. Take etxx-lep-rwgwvsv and prescription medicines only as told by your health care provider. Contact a health care provider if your abdominal pain changes or gets worse. Get help right away if you have severe pain, cramping, or bloating in your abdomen. This information is not intended to replace advice given to you by your health care provider. Make sure you discuss any questions you have with your health care provider. Document Released: 03/31/2006 Document Revised: 10/30/2019 Document Reviewed: 10/30/2019 [employer] Patient Education 2020 [employer]. Follow Up Care 01/12/2022 09:37:31 With:Vito ROBERTSON Address: [address] [place] [address] Business (1) When:01/15/2022 14:27:38 Comments:Return to the emergency room if your pain gets worse, vomiting recurs or any new symptoms. With:TERESA PATEL Address: [address] [place] [phone] Business (1) When:Within 3 Day(s) [facility]07-11-2022 Evaluation + Plan noteExtracted from: Title:ED Note Author:Pardeep Jo M.D. te:01/12/22 1. Vomiting and diarrhea (R1 1.10: Vomiting, unspecified) 2. Abdominal pain (R10.9: Unspecified abdominal pain) Ordered: acetaminophen-hydrocodone, 1 tab(s), Oral, q6hr as needed for pain, 7 tab(s), Refill(s) 0, [facility]/pharmacy #[id number], 152, cm, 01/12/22 9:47:00 EDT, Height/Length Dosing, 68, kg, 01/12/22 9:47:00 EDT, Weight Dosing 3. Hypokalemia (E87.6: Hypokalemia) 4. Hypomagnesemia (E83.42: Hypomagnesemia) Diarrhea, unspecified (R19.7: Diarrhea, unspecified) Orders: HYDROmorphone, 0.5 mg = 0.5 mL, Injection, IV Push, Once, Stop date 01/12/22 12:02:00 EDT, STAT, Start date 01/12/22 12:02:00 EDT, 01/12/22 12:02:00 EDT magnesium oxide, 400 mg = 1 tab(s), Oral, Daily, X 5 day(s), # 5 tab(s), Refills(s) 0, Pharmacy: [facility]/pharmacy #[id number], 152, cm, 01/12/22 9:47:00 EDT, Height/Length Dosing, 68, kg, 01/12/22 9:47:00 EDT, Weight Dosing magnesium oxide, 400 mg = 1 tab(s), Tab, Oral, Once, Stop date 01/12/22 13:46:00 EDT, STAT, Start date 01/12/22 13:46:00 EDT magnesium sulfate + Generic Diluent 50 mL, 2 gm = 50 mL, Soln-IV, IV Piggyback, Once, Stop date 01/12/22 10:56:00 EDT, STAT, Start date 01/12/22 10:56:00 EDT, 25 mL/hr, Infuse over 2 hour(s) morphine, 4 mg = 2 mL, Injection, IV Push, Once, Stop date 01/12/22 10:09:00 EDT, STAT, Start date 01/12/22 10:09:00 EDT, 01/12/22 10:09:00 EDT ondansetron, 4 mg = 2 mL, Injection, IV Push, Once, Stop date 01/12/22 10:07:00 EDT, STAT, Start date 01/12/22 10:07:00 EDT, 01/12/22 10:07:00 EDT potassium chloride, 40 mEq = 2 tab(s), Tab-ER, Oral, Once, Stop date 01/12/22 13:47:00 EDT, STAT, Start date 01/12/22 13:47:00 EDT promethazine, 12.5 mg = 0.5 mL, Injection, IV Push, Once, Stop date 01/12/22 12:02:00 EDT, STAT, Start date 01/12/22 12:02:00 EDT, 01/12/22 12:02:00 EDT Sodium Chloride 0.9% intravenous solution, 1,000 mL, Soln-IV, IV, Once, Stop date 01/12/22 10:07:00 EDT, STAT, Start date 01/12/22 10:07:00 EDT, mL/hr, Infuse over 61, minute(s) Sodium Chloride 0.9% with KCl 20 mEq/l 1,000 mL, 1,000 mL, IV, 500 mL/hr, for 1 dose(s), Stop date 01/12/22 13:28:00 EDT, STAT, Start date 01/12/22 11:29:00 EDT, 2 hour(s), Total volume (mL): 1,000, 68 kg, 1.69, m2 Automated Diff Basic Metabolic Panel Beta hCG Qual CBC w/ Auto Diff Clostridium difficile by PCR CT Abdomen/Pelvis w/ Contrast eGFR Enteric Panel by PCR Extra Blue Tube Hepatic Function Panel Lipase Level Magnesium Level Morphology Path. Review UA With Cult Reflex Future Appointments Appointment Date:02/02/2022 08:20:00 AM Scheduled Provider:Amara Palacio CNP Location:[facility] [place] [facility] Appointment Type:BAD Follow Up Appointment Date:02/12/2022 09:00:00 AM Scheduled Provider: Location:[facility] Appointment Type:Surgery PAT COVID Testing Appointment Date:02/19/2022 08:35:00 AM Scheduled Provider: Location:[facility] Appointment Type:Surgery FT Future Scheduled Tests Laboratory* Gastrin Level 12/24/21 [facility]06-22-2022 Evaluation + Plan note Future Scheduled Tests Laboratory* Gastrin Level 12/24/21 [facility]04-12-2022 Hospital Discharge instructions Patient Education 10/14/2021 17:33:17 Peptic Ulcer Eating Plan Peptic Ulcer Eating Plan Peptic ulcers are sores that form on the lining of the stomach, esophagus, or the part of the smallintestine that is attached to the stomach (duodenum). These sores are also called stomach ulcers. When ulcers develop, they can cause a burning feeling in the stomach as well as bloating, nausea, vomiting, and poor appetite. If you have a history of peptic ulcers, it is important to keep track of what foods and drinks cause symptoms. What are tips for following this plan? Eat a healthy, well-balanced diet. This includes: ?Fresh fruits and vegetables. Eat a variety of colors of fruits and vegetables. ?Whole grains. Try to make sure at least half of the grains you eat each day are whole grains. ?Low-fat dairy. ?Lean meat, fish, poultry, eggs, beans, and nuts. ?Healthy fats, such as olive oil, grapeseed oil, or canola oil. Try to eat less than 8 teaspoons offats and oils each day. Avoid foods that cause irritation or pain. These may be different for different people. Keep a fooddiary to identify foods that cause symptoms. Avoid processed foods that have added salt and sugar. Avoid drinking alcohol. Avoid drinks with caffeine, such as cola, black tea, energy drinks, and coffee. Recommended foods Grains Whole grains. Vegetables All fresh or frozen vegetables. Low-sodium canned vegetables. Fruits All fresh, frozen, or dried fruit. Fruit canned in juice. Meats and other protein foods Lean cuts of meat. Skinless poultry. Fresh or canned fish. Eggs. Tofu. Nuts and nut butter. Dried beans. Low-sodium canned beans. Dairy Low-fat or nonfat (skim) milk. Nonfat or low-fat yogurt. Nonfat or low-fat cheese. Beverages Water. Soy or nut milks. Caffeine-free soft drinks. Herbal tea. Fats and oils [place] oil. Canola oil. Grapeseed oil. [place] oil. Seasoning and other foods Low-fat salad dressing. Ketchup. Low-fat mayonnaise. All spices except pepper. Low-sodium seasoningmixes. Foods to avoid Meats and other protein foods Fatty meats. Fried meats. Any meat that causes symptoms. Dairy Whole milk. Ice cream. Cream. Chocolate milk. Beverages Alcohol. Coffee. Cola and energy drinks. Black or green tea. [place]. Fats and oils Butter. Lard. Ghee. Seasoning and other foods Pepper. Hot sauce. Any seasonings or condiments that cause symptoms. Summary Peptic ulcers can cause burning in the stomach as well as bloating, nausea, vomiting, and poor appetite. You may be able to limit symptoms by avoiding foods that make you feel worse. Work with your dietitian or health care provider to identify foods that cause symptoms. This may include caffeinated drinks, alcohol, or pepper. This information is not intended to replace advice given to you by your health care provider. Make sure you discuss any questions you have with your health care provider. Document Released: 09/12/2012 Document Revised: 06/03/2018 Document Reviewed: 08/02/2017 [employer] Patient Education 2020 [employer]. 10/14/2021 17:33:16 Peptic Ulcer Peptic Ulcer A peptic ulcer is a sore in the lining of the stomach (gastric ulcer) or the first part of the small intestine (duodenal ulcer). The ulcer causes a gradual wearing away (erosion) of the deeper tissue. What are the causes? Normally, the lining of the stomach and the small intestine protects them from the acid that digests food. The protective lining can be damaged by: An infection caused by a type of bacteria called Helicobacter pylori or H. pylori. Regular use of NSAIDs, such as ibuprofen or aspirin. Rare tumors in the stomach, small intestine, or pancreas (Rosemarie German syndrome). What increases the risk? The following factors may make you more likely to develop this condition: Smoking. Having a family history of ulcer disease. Drinking alcohol. Having been hospitalized in an intensive care unit (ICU). What are the signs or symptoms? Symptoms of this condition include: Persistent burning pain in the area between the chest and the belly button. The pain may be worse on an empty stomach and at night. Heartburn. Nausea and vomiting. Bloating. If the ulcer results in bleeding, it can cause: Black, tarry stools. Vomiting of bright red blood. Vomiting of material that looks like coffee grounds. How is this diagnosed? This condition may be diagnosed based on: Your medical history and a physical exam. Various tests or procedures, such as: ?Blood tests, stool tests, or breath tests to check for the H. pylori bacteria. ?An X-ray exam (upper gastrointestinal series) of the esophagus, stomach, and small intestine. ?Upper endoscopy. The health care provider examines the esophagus, stomach, and small intestine using a small flexible tube that has a video camera at the end. ?Biopsy. A tissue sample is removed to be examined under a microscope. How is this treated? Treatment for this condition may include: Eliminating the cause of the ulcer, such as smoking or use of NSAIDs, and limiting alcohol and caffeine intake. Medicines to reduce the amount of acid in your digestive tract. Antibiotic medicines, if the ulcer is caused by an H. pylori infection. An upper endoscopy may be used to treat a bleeding ulcer. Surgery. This may be needed if the bleeding is severe or if the ulcer created a hole somewhere in the digestive system. Follow these instructions at home: Do not drink alcohol if your health care provider tells you not to drink. Do not use any products that contain nicotine or tobacco, such as cigarettes, e- cigarettes, and chewing tobacco. If you need help quitting, ask your health care provider. Take iitn-esv-ghvriya and prescription medicines only as told by your health care provider. ?Do not use xflp-hox-kkwlexi medicines in place of prescription medicines unless your health care provider approves. ?Do not take aspirin, ibuprofen, or other NSAIDs unless your health care provider told you to do so. Take tzcx-pgp-lcfsmjk and prescription medicines only as told by your health care provider. Keep all follow-up visits as told by your health care provider. This is important. Contact a health care provider if: Your symptoms do not improve within 7 days of starting treatment. You have ongoing indigestion or heartburn. Get help right away if: You have sudden, sharp, or persistent pain in your abdomen. You have bloody or dark black, tarry stools. You vomit blood or material that looks like coffee grounds. You become light-headed or you feel faint. You become weak. You become sweaty or clammy. Summary A peptic ulcer is a sore in the lining of the stomach (gastric ulcer) or the first part of the small intestine (duodenal ulcer). The ulcer causes a gradual wearing away (erosion) of the deeper tissue. Do not use any products that contain nicotine or tobacco, such as cigarettes, e- cigarettes, and chewing tobacco. If you need help quitting, ask your health care provider. Take cdmo-txi-adjtved and prescription medicines only as told by your health care provider. Do not use btyy-rea-cjqmlwz medicines in place of prescription medicines unless your health care provider approves. Contact your health care provider if you have ongoing indigestion or heartburn. Keep all follow-up visits as told by your health care provider. This is important. This information is not intended to replace advice given to you by your health care provider. Make sure you discuss any questions you have with your health care provider. Document Released: 06/18/2001 Document Revised: 12/27/2018 Document Reviewed: 12/27/2018 [employer] Patient Education 2020 [employer]. 10/14/2021 17:33:09 Gastrointestinal Bleeding Gastrointestinal Bleeding Gastrointestinal (GI) bleeding is bleeding somewhere along the digestive tract, between the mouth and the anus. This tract includes the mouth, esophagus, stomach, small intestine, large intestine, and anus. The large intestine is often called the colon. GI bleeding can be caused by various problems. The severity of these problems can range from mild to serious or even life-threatening. If you have GI bleeding, you may find blood in your stools (feces), you may have black stools, or you may vomit blood. If there is a lot of bleeding, you may need to stay in the hospital. What are the causes? This condition may be caused by: Inflammation, irritation, or swelling of the esophagus (esophagitis). The esophagus is part of the body that moves food from your mouth to your stomach. Swollen veins in the rectum (hemorrhoids). Areas of painful tearing in the anus that are often caused by passing hard stool (anal fissures). Pouches that form on the colon over time, with age, and may bleed a lot (diverticulosis). Inflammation (diverticulitis) in areas with diverticulosis. This can cause pain, fever, and bloody stools, although bleeding may be mild. Growths (polyps) or cancer. Colon cancer often starts out as precancerous polyps. Gastritis and ulcers. With these, bleeding may come from the upper GI tract, near the stomach. What increases the risk? You are more likely to develop this condition if you: Have an infection in your stomach from a type of bacteria called Helicobacter pylori. Take certain medicines, such as: ?NSAIDs. ?Aspirin. ?Selective serotonin reuptake inhibitors (SSRIs). ?Steroids. ?Antiplatelet or anticoagulant medicines. Smoke. Drink alcohol. What are the signs or symptoms? Common symptoms of this condition include: Bright red blood in your vomit, or vomit that looks like coffee grounds. Bloody, black, or tarry stools. ?Bleeding from the lower GI tract will usually cause red or maroon blood in the stools. ?Bleeding from the upper GI tract may cause black, tarry stools that are often stronger smelling than usual. ?In certain cases, if the bleeding is fast enough, the stools may be red. Pain or cramping in the abdomen. How is this diagnosed? This condition may be diagnosed based on: Your medical history and a physical exam. Various tests, such as: ?Blood tests. ?Stool tests. ?X-rays and other imaging tests. ?Esophagogastroduodenoscopy (EGD). In this test, a flexible, lighted tube is used to look at your esophagus, stomach, and small intestine. ?Colonoscopy. In this test, a flexible, lighted tube is used to look at your colon. How is this treated? Treatment for this condition depends on the cause of the bleeding. For example: For bleeding from the esophagus, stomach, small intestine, or colon, the health care provider doingyour EGD or colonoscopy may be able to stop the bleeding as part of the procedure. Inflammation or infection of the colon can be treated with medicines. Certain rectal problems can be treated with creams, suppositories, or warm baths. Medicines may be given to reduce acid in your stomach. Surgery is sometimes needed. Blood transfusions are sometimes needed if a lot of blood has been lost. If bleeding is mild, you may be allowed to go home. If there is a lot of bleeding, you will need tostay in the hospital for observation. Follow these instructions at home: Take wgfu-xro-znifqqs and prescription medicines only as told by your health care provider. Eat foods that are high in fiber, such as beans, whole grains, and fresh fruits and vegetables. This will help to keep your stools soft. Eating 1 3 prunes each day works well for many people. Drink enough fluid to keep your urine pale yellow. Keep all follow-up visits as told by your health care provider. This is important. Contact a health care provider if: Your symptoms do not improve. Get help right away if: Your bleeding does not stop. You feel light-headed or you faint. You feel weak. You have severe cramps in your back or abdomen. You pass large blood clots in your stool. Your symptoms are getting worse. You have chest pain or fast heartbeats. Summary Gastrointestinal (GI) bleeding is bleeding somewhere along the digestive tract, between the mouth and anus. GI bleeding can be caused by various problems. The severity of these problems can range from mild to serious or even life-threatening. Treatment for this condition depends on the cause of the bleeding. Take ijrg-vhq-ivjomse and prescription medicines only as told by your health care provider. Keep all follow-up visits as told by your health care provider. This is important. Get help right away if your bleeding increases, your symptoms are getting worse, or you have new symptoms. This information is not intended to replace advice given to you by your health care provider. Make sure you discuss any questions you have with your health care provider. Document Released: 06/18/2001 Document Revised: 02/01/2019 Document Reviewed: 02/01/2019 [employer] Patient Education 2020 [employer]. 10/14/2021 11:53:50 Hematemesis Hematemesis Hematemesis is when you vomit blood. It is a sign of bleeding in the upper GI tract (gastrointestinal tract). The upper GI tract includes the mouth, throat, esophagus, stomach, and the upper part of the small intestine (duodenum). Hematemesis is usually caused by bleeding in the esophagus or stomach. You may suddenly vomit bright red blood. Or, the blood may look like coffee grounds. You may also have other symptoms, such as: Stomach pain. Heartburn. Stool (feces) that looks black and tarry. Follow these instructions at home: Take qvdp-elh-lchgvtd and prescription medicines only as told by your health care provider. Do not take NSAIDs, including aspirin and ibuprofen, unless your health care provider approves. These medicines can increase bleeding. Rest as needed. Drink enough fluids to keep your urine pale yellow. Take small sips of fluid at a time. Do not drink alcohol. Do not use any products that contain nicotine or tobacco, such as cigarettes and e-cigarettes. If you need help quitting, ask your health care provider. Keep all follow-up visits as told by your health care provider. This is important. Contact a health care provider if: You have more blood in your vomit. Your vomiting of blood begins again after it has stopped. You have persistent stomach pain. You have nausea, indigestion, or heartburn. Get help right away if: You faint. You feel weak or dizzy. You are urinating less than normal or not at all. You vomit up: ?Large amounts of blood or dark material that may look like coffee grounds. ?Bright red blood. You have any of the following: ?Persistent vomiting. ?A rapid heartbeat. ?Blood in your stool. ?Chest pain. ?Difficulty breathing. These symptoms may represent a serious problem that is an emergency. Do not wait to see if the symptoms will go away. Get medical help right away. Call your local emergency services (911 in the [place]). Do not drive yourself to the hospital. Summary Hematemesis is when you vomit blood. It is a sign of bleeding in the upper GI tract (gastrointestinal tract). Hematemesis is usually caused by bleeding in the esophagus or stomach. Do not take NSAIDs (including aspirin and ibuprofen), drink alcohol, or use tobacco products. Take pxmt-azn-ooqdhfj and prescription medicines only as told by your health care provider. This information is not intended to replace advice given to you by your health care provider. Make sure you discuss any questions you have with your health care provider. Document Released: 07/29/2005 Document Revised: 07/01/2018 Document Reviewed: 07/01/2018 [employer] Patient Education 2020 [employer]. Follow Up Care 10/13/2021 23:28:04 With:MARCELO JUAREZ, BRITTNI Padron, [facility] Address: [address] [place] [address]. [address] [place] [address] When:2 to 4 weeks With:TERESA PATEL CNP S Address: [facility] [facility] [place] [phone] When:2 to 4 days [facility]04-12-2022 Evaluation + Plan noteExtracted from: Title:Discharge Note Author:Sonido Hayes MD Date:10/14/21 1. Coffee ground emesis (K92.0: Hematemesis) 2. Abdominal pain in female (R10.9: Unspecified abdominal pain) 3. Gastric ulcer (K25.9: Gastric ulcer, unspecified as acute or chronic, without hemorrhage or perforation) 4. Hypokalemia (E87.6: Hypokalemia) 5. Clostridium difficile colitis (A04.72: Enterocolitis due to Clostridium difficile, not specified as recurrent) 6. Hyperlipidemia (E78.5: Hyperlipidemia, unspecified) 7. Bipolar disorder (F31.9: Bipolar disorder, unspecified) 8. Tobacco abuse (Z72.0: Tobacco use) 9. Marijuana use (F12.90: Cannabis use, unspecified, uncomplicated) Orders: ondansetron, 4 mg = 1 tab(s), Oral, q8hr, PRN Nausea/Vomiting, # 12 tab(s), Refills(s) 0, Pharmacy: [facility]/pharmacy #[id number], 152, cm, 10/13/21 23:36:00 EDT, Height/Length Dosing, 71.7, kg, 10/13/21 23:36:00 EDT, Weight Dosing sucralfate, 1 gm = 1 tab(s), Tab, Oral, QID, Routine, Start date 10/14/21 13:00:00 EDT sucralfate, 1 gm = 1 tab(s), Oral, QID, # 240 tab(s), Refills(s) 0, Pharmacy: [facility]/pharmacy #[id number], 152, cm, 10/13/21 23:36:00 EDT, Height/Length Dosing, 71.7, kg, 10/13/21 23:36:00 EDT, Weight Dosing tramadol, 50 mg = 1 tab(s), Tab, Oral, q6hr PRN Pain for 7 day(s), Stop date 10/21/21 12:10:00 EDT, Routine, Start date 10/14/21 12:11:00 EDT, 10/14/21 12:11:00 EDT Hemoglobin Regular Diet Prescriptions Carafate 1 gram Tab, 1 gm= 1 tab(s), Oral, QID Protonix 40 mg Tab-EC, 40 mg= 1 tab(s), Oral, BID vancomycin 125 mg Cap, 125 mg= 1 cap(s), Oral, q6hr Zofran 4 mg Tab, 4 mg= 1 tab(s), Oral, q8hr, PRN Home Imitrex 100 mg Tab, 100 mg= 1 tab(s), Oral, Once With When Contact Information MARCELO JUAREZ, BRITTNI Padron, LYNDSAY Within 2 to 4 weeks [address] [place] [address] Additional Instructions: DWIGHT DEE, TERESA S Within 2 to 4 [address] [facility] [phone] Additional Instructions: Peptic Ulcer Eating Plan Peptic Ulcer Gastrointestinal Bleeding Hematemesis Extracted from: Title:Admission H & P Author:Nagi OLIVO DO Date:10/14/21 1. N&V (nausea and vomiting) (R11.2: Nausea with vomiting, unspecified) Question related to gastrointestinal tract bleeding (note below regarding ulcer) versus role of marijuana use versus other. Will limit patient's p.o. intake to ice chips, continue as needed Zofran and Phenergan and continue to hydrate 2. Coffee ground emesis (K92.0: Hematemesis) Of concern with her recent diagnosed large gastric ulcer with visible vessel. Patient was given Protonix 80 mg at 2300 approximately 4 hours prior. With no recurrent coffee-ground emesis or blood in her stool will hold on Protonix drip for now but will have a low threshold if concern exist. Will monitor hemoglobin closely hemoglobin was within normal limits on her presentation Ordered: pantoprazole, 40 mg = 10 mL, Injection, IV Push, BID, Routine, Start date 10/14/21 9:00:00 EDT, 10/14/21 3:00:00 EDT 3. Abdominal pain in female (R10.9: Unspecified abdominal pain) Make as needed lower dose Dilaudid available, as she states this was effective on previous hospitalization but will be conservative with such for this can certainly decreased GI motility. 4. Marijuana use (F12.90: Cannabis use, unspecified, uncomplicated) Advised against its use to I described to patient in layman's terms cyclical vomiting or cannabis hyperemesis syndrome on the basic physiology behind such. 5. Gastric ulcer (K25.9: Gastric ulcer, unspecified as acute or chronic, without hemorrhage or perforation) And recent hospitalization on 09 October patient was noted to have a large antral ulcer of 3 x 4 cm with an adherent clot once the clot was removed there was a visible vessel. Patient was given Protonix. We will continue Carafate if tolerated orally Ordered: pantoprazole, 40 mg = 10 mL, Injection, IV Push, BID, Routine, Start date 10/14/21 9:00:00 EDT, 10/14/21 3:00:00 EDT 6. Hypokalemia (E87.6: Hypokalemia) This can certainly affect GI motility and likely results from GI losses both vomiting and diarrhea (see below). Will empirically treat with magnesium as she was on prior hospitalization where she was 1.3. Check mag levels in the a.m. Patient has been ordered 40 mEq by the emergency department. Repeat labs in the a.m. to determine if further potassium supplementation is needed Ordered: magnesium sulfate + Generic Diluent 50 mL, 2 gram = 50 mL, IV Piggyback, Once, Stop date 10/14/21 3:00:00 EDT, Routine, Start date 10/14/21 3:00:00 EDT, 25 mL/hr, Infuse over 2 hour(s), 10/14/21 2:59:00 EDT Magnesium Level 7. Clostridium difficile colitis (A04.72: Enterocolitis due to Clostridium difficile, not specified as recurrent) Curiously patient states she had diarrhea for 2 months and did not seek medical attention. She confirms receiving Cipro approximately 3 weeks ago for a sinus infection but curiously states that the diarrhea had not worsened. This was diagnosed on a recent admission she was given a few days of Dificid. Patient has not vomited up her vancomycin, which will be continued orally. She states her diarrhea had worsened when she went home but implies she believes it was due to advancing her diet. With duration of symptoms, question additional factors. Repeat lactic acid with a.m. labs Ordered: C-Reactive Protein TSH With T4fr Reflex 8. Tobacco abuse (Z72.0: Tobacco use) Continue her nicotine patch. She estimates she has smoked for 20 years at 1/2 pack/day has not smoked cigarettes since 9. Hyperlipidemia (E78.5: Hyperlipidemia, unspecified) Weight confirmation of home meds she was previously on TriCor. Can resume once confirmed its observe for any further vomiting 10. Bipolar disorder (F31.9: Bipolar disorder, unspecified) Patient states she had weaned herself off her meds greater than a few months ago and she feels that she is doing well without them. She discussed this with her counselor who was in support Orders: ondansetron, 4 mg = 2 mL, Injection, IV Push, q6hr PRN Nausea, Routine, Start date 10/14/21 3:02:00 EDT, 10/14/21 3:02:00 EDT promethazine, 12.5 mg = 0.5 mL, Injection, IV Push, q6hr PRN Nausea, Routine, Start date 10/14/21 3:02:00 EDT, 10/14/21 3:02:00 EDT Sodium Chloride 0.9% intravenous solution 1,000 mL, 1,000 mL, IV, 75 mL/hr, Routine, Start date 10/14/21 3:02:00 EDT, 13.3 hour(s), Total volume (mL): 1,000, 71.7 kg, 1.74, m2 Basic Metabolic Panel Cardiac Monitoring CBC w/ Auto Diff Lactic Acid Notify Provider Vital Signs Notify Provider Vital Signs NPO Diet Place in Status Resuscitation Status - Full Up ad [place] Vital Signs Weight Patient is admitted as an observation if there is no further coffee-ground emesis, hemoglobin remained stable, and diarrhea improves then she would not be anticipated to require 2 midnight stay Extracted from: Title:ED Note Author:Verónica Yates DO Date :10/13/21 Abdominal pain in female (R1 0.9: Unspecified abdominal pain) Hypokalemia (E87.6: Hypokalemia) N&V (nausea and vomiting) (R11.2: Nausea with vomiting, unspecified) Orders: HYDROmorphone, 0.5 mg = 0.5 mL, Injection, IV Push, Once, Stop date 10/14/21 1:04:00 EDT, STAT, Start date 10/14/21 1:04:00 EDT, 10/14/21 1:04:00 EDT morphine, 4 mg = 1 mL, Injection, IV Push, Once, Stop date 10/13/21 23:42:00 EDT, STAT, Start date 10/13/21 23:42:00 EDT, 10/13/21 23:42:00 EDT pantoprazole, 80 mg = 20 mL, Injection, IV Push, Once, Stop date 10/13/21 23:42:00 EDT, STAT, Start date 10/13/21 23:42:00 EDT, Infuse over 2 minute(s), 10/13/21 23:42:00 EDT potassium chloride, Soln-IV, Misc, Once, Stop date 10/14/21 0:56:23 EDT, Physician Stop, 10/14/21 0:56:23 EDT potassium chloride + Generic Diluent 100 mL, 20 mEq = 100 mL, IV Piggyback, Once, Stop date 10/14/21 0:57:00 EDT, STAT, Start date 10/14/21 0:57:00 EDT, 50 mL/hr, Infuse over 2 hour(s), 10/14/21 0:57:00 EDT potassium chloride + Generic Diluent 100 mL, 20 mEq = 100 mL, IV Piggyback, Once, Stop date 10/14/21 0:57:00 EDT, STAT, Start date 10/14/21 0:57:00 EDT, 50 mL/hr, Infuse over 2 hour(s), 10/14/21 0:57:00 EDT promethazine, 25 mg = 1 mL, Injection, IV Push, Once, Stop date 10/13/21 23:42:00 EDT, STAT, Start date 10/13/21 23:42:00 EDT, 10/13/21 23:42:00 EDT Sodium Chloride 0.9% intravenous solution, Soln-IV, Misc, Once, Stop date 10/14/21 0:57:56 EDT, Physician Stop, 10/14/21 0:57:56 EDT Sodium Chloride 0.9% intravenous solution, 1,000 mL, IV, Stop date 10/14/21 1:01:00 EDT, Start date 10/14/21 1:01:00 EDT Sodium Chloride 0.9% intravenous solution 1,000 mL, 1,000 mL, IV, 983.61 mL/hr, for 30 day(s), Stop date 11/12/21 23:43:00 EDT, STAT, Start date 10/13/21 23:44:00 EDT, 61 minute(s), Total volume (mL): 1,000, 71.7 kg, 1.74, m2 ABO/Rh ABO/Rh History Check Antibody Screen Automated Diff Basic Metabolic Panel Blood Bank ID# CBC w/ Auto Diff CT Abdomen/Pelvis w/ Contrast ECG 12 Lead Adult ED Physician consult Hospitalist for continued care eGFR Hepatic Function Panel Lactic Acid Lactic Acid PT & PTT Stool for Occult Blood POC Troponin [facility]04-10-2022 Evaluation + Plan noteExtracted from: Title:Discharge Note Author:Mile JUAREZ, Trey Pineda ate:10/12/21 Gastritis Antral Ulcer -S/P EGD on 10/09/21, no stigmata of bleeding at this time. CBC good overnight. -PPI BID -Carafate -Follow up w/GI C. Diff Colitis -Likely etiology of diarrhea -Pharmacy did not have Dificid we will switch her over to vancomycin 125 4 times daily times 8 days -Follow up w/GI out patient Leukocytosis: Likely from above Tobacco use: Tobacco cessation counseling performed. Continue patch Obesity: Patient's BMI >30. Lifestyle modifications encouraged. Obesity is a pro-inflammatory state likely affecting above medical processes. Outpatient follow up. Migraines: Chronic, no FND, Resume Imitrex Insomnia -Chronic -Ambien as needed Hyponatremia: resolved Hypokalemia: resolved Code: Full Diet: Regular diet DVT prophylaxis: SCDs Plan: Plan was discussed with patient and family (if applicable) at bedside Orders: nicotine, 1 patch(es), TransDermal, Daily, 30 EA, Refill(s) 0, [id number], 152.4, cm, 10/09/21 9:00:00 EDT, Height/Length Dosing, 78, kg, 10/09/21 9:00:00 EDT, Weight Dosing nicotine, 21 mg, 1 patch(es), Patch-ER, TransDermal, Once, Stop date 10/11/21 16:00:00 EDT, Routine, Start date 10/11/21 16:00:00 EDT, to replace patch that fell off during shower until tomorrow's dose ondansetron, 4 mg = 1 tab(s), Oral, q8hr, PRN Nausea/Vomiting, # 12 tab(s), Refills(s) 0, Pharmacy: [facility]/pharmacy #[id number], 152.4, cm, 10/09/21 9:00:00 EDT, Height/Length Dosing, 78, kg, 10/09/21 9:00:00 EDT, Weight Dosing pantoprazole, 40 mg = 1 tab(s), Oral, BID, # 60 tab(s), Refills(s) 0, Pharmacy: [facility]/pharmacy #[id number], 152.4, cm, 10/09/21 9:00:00 EDT, Height/Length Dosing, 78, kg, 10/09/21 9:00:00 EDT, Weight Dosing sucralfate, 2 gm = 2 tab(s), Oral, QID, # 240 tab(s), Refills(s) 0, Pharmacy: [facility]/pharmacy #[id number], 152.4, cm, 10/09/21 9:00:00 EDT, Height/Length Dosing, 78, kg, 10/09/21 9:00:00 EDT, Weight Dosing sumatriptan, 100 mg = 2 tab(s), Tab, Oral, Once, Stop date 10/11/21 12:00:00 EDT, Routine, Start date 10/11/21 12:00:00 EDT, 10/11/21 11:12:00 EDT vancomycin, 125 mg = 1 cap(s), Oral, q6hr, X 8 day(s), # 32 cap(s), Refills(s) 0, 0, Stop date 10/20/21 10:07:00 EDT, Route to Pharmacy Electronically, [id number] 152.4, cm, 10/09/21 9:00:00 EDT, Height/Length Dosing, 78, kg, 10/09/21 9:00:00 E... Calprotectin, Fecal Stable Home Prescriptions Carafate 1 gram Tab, 2 gm= 2 tab(s), Oral, QID nicotine 21 mg/24 hr Transderm ER Film, 1 patch(es), TransDermal, Daily Protonix 40 mg Tab-EC, 40 mg= 1 tab(s), Oral, BID traZODONE 100 mg Tab, 100 mg= 1 tab(s), Oral, Once a day (at bedtime), 5 refills vancomycin 125 mg Cap, 125 mg= 1 cap(s), Oral, q6hr Zofran 4 mg Tab, 4 mg= 1 tab(s), Oral, q8hr, PRN Home cetirizine 10 mg oral capsule, 10 mg= 1 cap(s), Oral, Daily, PRN Imitrex 100 mg Tab, 100 mg= 1 tab(s), Oral, Once Nexplanon 68 mg subcutaneous implant, 68 mg= 1 EA TriCor 48 mg Tab, 48 mg= 1 tab(s), Oral, Daily With When Contact Information [address] [place] [address] Business (1) Additional Instructions: Peptic Ulcer TERESA PATEL In 0 days [address] [facility] [phone] Business (1) Additional Instructions: Peptic Ulcer Endoscopy, Care After Procedure (SHSSTEV) Extracted from: Title:APSO Note Author:Mile JUAREZ, [facility] Date: Gastritis Antral Ulcer -S/P EGD on 10/09/21, no stigmata of bleeding at this time. CBC good overnight. -Protonix drip x 2 more days -Advancing diet as tolerated, now clear liquids, patient still nauseated and requring IV fluids -Zofran as needed for nausea -Holding 3 units of PRBCs -Dilaudid for pain control -Transferring to the floor Diarrhea -Chronic, infectious V irritable V inflammatory -Fecal calprotectin, enteric PCR, TCH -If enteric PCR negative will give loperamide Hypokalemia Hypomagnesemia -Patient is continuting to have difficutlies w/PO and requiring IV replacement of Mg and K -2g of IV mag -40 more of K -Repeat BMP later Leukocytosis: Likely from above Tobacco use: Tobacco cessation counseling performed. Continue patch Obesity: Patient's BMI >30. Lifestyle modifications encouraged. Obesity is a pro-inflammatory state likely affecting above medical processes. Outpatient follow up. Chronic Medical Conditions -Med rec than resume Code: Full Diet: NPO for possible EGD DVT prophylaxis: SCDs Plan: Plan was discussed with patient and family (if applicable) at bedside Orders: HYDROmorphone, 0.5 mg = 0.5 mL, Injection, IV Push, q4hr PRN Pain, Routine, Start date 10/10/21 10:05:00 EDT, 10/10/21 10:05:00 EDT magnesium sulfate + Generic Diluent 50 mL, 2 gram = 50 mL, Soln-IV, IV Piggyback, Once, Stop date 10/10/21 8:00:00 EDT, Routine, Start date 10/10/21 8:00:00 EDT, 25 mL/hr, Infuse over 2 hour(s) nicotine, 21 mg, 1 patch(es), Patch-ER, TransDermal, Daily, Routine, Start date 10/09/21 14:30:00 EDT ondansetron, 4 mg = 2 mL, Injection, IV Push, q6hr PRN Nausea, Routine, Start date 10/09/21 11:06:00 EDT, 10/09/21 11:06:00 EDT potassium chloride, Soln-IV, Misc, Once, Stop date 10/10/21 0:30:21 EDT, Physician Stop, 10/10/21 0:30:21 EDT potassium chloride + Generic Diluent 100 mL, 20 mEq = 100 mL, Soln-IV, IV Piggyback, q2hr for 2 dose(s), Stop date 10/10/21 10:54:00 EDT, Routine, Start date 10/10/21 6:55:00 EDT, 50 mL/hr, Infuse over 2 hour(s) potassium chloride + Generic Diluent 100 mL, 20 mEq = 100 mL, Soln-IV, IV Piggyback, q2hr for 3 dose(s), Stop date 10/09/21 17:06:00 EDT, Routine, Start date 10/09/21 11:07:00 EDT, 50 mL/hr, Infuse over 2 hour(s) remove patch, 1 patch(es), Patch, Topical, Daily, 10/10/21 9:00:00 EDT Sodium Chloride 0.9% intravenous solution, Soln-IV, Misc, Once, Stop date 10/09/21 11:40:05 EDT, Physician Stop, 10/09/21 11:40:05 EDT Sodium Chloride 0.9% intravenous solution 1,000 mL, 1,000 mL, IV, 120 mL/hr, Routine, Start date 10/09/21 11:07:00 EDT, 8.3 hour(s), Total volume (mL): 1,000, 78 kg, 1.82, m2 Ambulate with Assistance Automated Diff Automated Diff Automated Diff Automated Diff Basic Metabolic Panel Basic Metabolic Panel Calprotectin, Fecal Cardiac Monitoring Clear Liquid Diet Communication Order Physician to Nursing Consult to GI eGFR Elevate Head of Bed Enteric Panel by PCR Evaluate Need For Continued Telemetry Magnesium Level Place in Status Resuscitation Status - Full Transfer Patient Intrahospital Transfer Patient Intrahospital TSH With T4fr Reflex Vital Signs Weight Addendum by Mile JUAREZ, [facility] evan on October 10, 2021 11:27:57 EDT +ve for C. Diff. Dificid 200mg BID x 10 days. Extracted from: Title:Abdominal Pain * Author:Vito ROBERTSON MD te:10/09/21 Impression and Plan 36 years old white female with severe epigastric abdominal pain associated with chronic nausea, nonbloody emesis and chronic diarrhea, she also reports 45 pounds weight loss over the last 6 months, noted to have hypokalemia and normal CBC, normal lipase and normal LFTs, abdomen CT scan showed antral wall thickening. The patient includes peptic ulcer disease, gastritis and duodenitis. Her diarrhea needs to be further evaluated to rule out infectious etiology and inflammatory bowel disease, this can be done as an outpatient, for now we will proceed with EGD to rule out peptic ulcer disease 1. Proceed with EGD 2. Stool testing for enteric panel, C. difficile 3. Outpatient colonoscopy to rule out inflammatory bowel disease 4. 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 -Protonix 40 mg twice daily -Zofran as needed for nausea -GI consulted Diarrhea -Chronic, infectious V irritable V inflammatory -Fecal calprotectin, enteric PCR, TCH -If enteric PCR negative will give loperamide Hypokalemia -Likely secondary to diarrhea -Give 60 M EQ's of potassium, follow-up with BMP, adjust accordingly Leukocytosis -Acute likely from above -As above Tobacco use -Tobacco cessation counseling performed -Continue patch Obesity -Patient's BMI >30. Lifestyle modifications encouraged. Obesity is a pro- inflammatory state likely affecting above medical processes. Outpatient follow up. Chronic Medical Conditions -Med rec than resume Code: Full Diet: NPO for possible EGD DVT prophylaxis: SCDs now, Lovenox later Family: Aunt bedside and updated Admit: Plan: Plan was discussed with patient and family (if applicable) at bedside Orders: nicotine, 21 mg, 1 patch(es), Patch-ER, TransDermal, Daily, Routine, Start date 10/10/21 9:00:00 EDT ondansetron, 4 mg = 2 mL, Injection, IV Push, q6hr PRN Nausea, Routine, Start date 10/09/21 11:06:00 EDT, 10/09/21 11:06:00 EDT pantoprazole, 40 mg = 10 mL, Injection, IV Push, BID, Routine, Start date 10/09/21 21:00:00 EDT, 10/09/21 10:30:00 EDT potassium chloride + Generic Diluent 100 mL, 20 mEq = 100 mL, Soln-IV, IV Piggyback, q2hr for 3 dose(s), Stop date 10/09/21 17:06:00 EDT, Routine, Start date 10/09/21 11:07:00 EDT, 50 mL/hr, Infuse over 2 hour(s) remove patch, 1 patch(es), Patch, Topical, Daily, 10/11/21 9:00:00 EDT Sodium Chloride 0.9% intravenous solution 1,000 mL, 1,000 mL, IV, 120 mL/hr, Routine, Start date 10/09/21 11:07:00 EDT, 8.3 hour(s), Total volume (mL): 1,000, 78 kg, 1.82, m2 Ambulate with Assistance Basic Metabolic Panel Calprotectin, Fecal Cardiac Monitoring Communication Order Physician to Nursing Consult to GI Elevate Head of Bed Enteric Panel by PCR Evaluate Need For Continued Telemetry Magnesium Level NPO Diet Place in Status Resuscitation Status - Full TSH With T4fr Reflex Vital Signs Weight Addendum by Mile JUAREZ, [facility] ad on October 09, 2021 12:54:04 EDT Status: In patient >2 midnights, ICU. Patient has giant ulcer noted on EGD, will require close monitoring For Giant ulcer: contacted blood bank, hold 3 units of blood, stat type and cross match w/auto renew q3days, appreciate blood bank assistance, ppi drip, Gi following, appreciate assistance, agree with recs. CBC q6hr. Extracted from: Title:ED Note Author:Kirt Figueroa PA-C te:10/09/21 1. Nausea vomiting and diarr hea (R11.2: Nausea with vomiting, unspecified) 2. Hypokalemia (E87.6: Hypokalemia) 3. Gastritis (K29.70: Gastritis, unspecified, without bleeding) Diarrhea, unspecified (R19.7: Diarrhea, unspecified) Orders: pantoprazole, 40 mg = 10 mL, Injection, IV Push, Once, Stop date 10/09/21 9:29:00 EDT, STAT, Start date 10/09/21 9:29:00 EDT, 10/09/21 9:29:00 EDT potassium bicarbonate, 50 mEq = 2 tab(s), Tab-Eff, Oral, Once, Stop date 10/09/21 10:12:00 EDT, STAT, Start date 10/09/21 10:12:00 EDT, 10/09/21 10:12:00 EDT promethazine, 12.5 mg = 0.5 mL, Injection, IV Push, Once, Stop date 10/09/21 9:29:00 EDT, STAT, Start date 10/09/21 9:29:00 EDT, 10/09/21 9:29:00 EDT Sodium Chloride 0.9% intravenous solution, 1,000 mL, Soln-IV, IV, Once, Stop date 10/09/21 9:29:00 EDT, STAT, Start date 10/09/21 9:29:00 EDT, mL/hr, Infuse over 61, minute(s) Sodium Chloride 0.9% with KCl 40 mEq/l 1,000 mL, 1,000 mL, IV, 250 mL/hr, STAT, Start date 10/09/21 10:12:00 EDT, 4 hour(s), Total volume (mL): 1,000, 78 kg, 1.82, m2 Automated Diff Basic Metabolic Panel CBC w/ Auto Diff ECG 12 Lead Adult ED Physician consult Hospitalist for continued care eGFR Hepatic Function Panel Lipase Level PT & PTT [facility]04-10-2022 Hospital Discharge instructions Patient Education 10/12/2021 10:12:41 Peptic Ulcer Peptic Ulcer A peptic ulcer is a sore in the lining of the stomach (gastric ulcer) or the first part of the small intestine (duodenal ulcer). The ulcer causes a gradual wearing away (erosion) of the deeper tissue. What are the causes? Normally, the lining of the stomach and the small intestine protects them from the acid that digests food. The protective lining can be damaged by: An infection caused by a type of bacteria called Helicobacter pylori or H. pylori. Regular use of NSAIDs, such as ibuprofen or aspirin. Rare tumors in the stomach, small intestine, or pancreas (Rosemarie German syndrome). What increases the risk? The following factors may make you more likely to develop this condition: Smoking. Having a family history of ulcer disease. Drinking alcohol. Having been hospitalized in an intensive care unit (ICU). What are the signs or symptoms? Symptoms of this condition include: Persistent burning pain in the area between the chest and the belly button. The pain may be worse on an empty stomach and at night. Heartburn. Nausea and vomiting. Bloating. If the ulcer results in bleeding, it can cause: Black, tarry stools. Vomiting of bright red blood. Vomiting of material that looks like coffee grounds. How is this diagnosed? This condition may be diagnosed based on: Your medical history and a physical exam. Various tests or procedures, such as: ?Blood tests, stool tests, or breath tests to check for the H. pylori bacteria. ?An X-ray exam (upper gastrointestinal series) of the esophagus, stomach, and small intestine. ?Upper endoscopy. The health care provider examines the esophagus, stomach, and small intestine using a small flexible tube that has a video camera at the end. ?Biopsy. A tissue sample is removed to be examined under a microscope. How is this treated? Treatment for this condition may include: Eliminating the cause of the ulcer, such as smoking or use of NSAIDs, and limiting alcohol and caffeine intake. Medicines to reduce the amount of acid in your digestive tract. Antibiotic medicines, if the ulcer is caused by an H. pylori infection. An upper endoscopy may be used to treat a bleeding ulcer. Surgery. This may be needed if the bleeding is severe or if the ulcer created a hole somewhere in the digestive system. Follow these instructions at home: Do not drink alcohol if your health care provider tells you not to drink. Do not use any products that contain nicotine or tobacco, such as cigarettes, e- cigarettes, and chewing tobacco. If you need help quitting, ask your health care provider. Take vrxo-cyn-nryltsn and prescription medicines only as told by your health care provider. ?Do not use ugcx-crl-lhifiwr medicines in place of prescription medicines unless your health care provider approves. ?Do not take aspirin, ibuprofen, or other NSAIDs unless your health care provider told you to do so. Take zmby-tdn-zzhtqlc and prescription medicines only as told by your health care provider. Keep all follow-up visits as told by your health care provider. This is important. Contact a health care provider if: Your symptoms do not improve within 7 days of starting treatment. You have ongoing indigestion or heartburn. Get help right away if: You have sudden, sharp, or persistent pain in your abdomen. You have bloody or dark black, tarry stools. You vomit blood or material that looks like coffee grounds. You become light-headed or you feel faint. You become weak. You become sweaty or clammy. Summary A peptic ulcer is a sore in the lining of the stomach (gastric ulcer) or the first part of the small intestine (duodenal ulcer). The ulcer causes a gradual wearing away (erosion) of the deeper tissue. Do not use any products that contain nicotine or tobacco, such as cigarettes, e- cigarettes, and chewing tobacco. If you need help quitting, ask your health care provider. Take olpe-myb-kekbrbe and prescription medicines only as told by your health care provider. Do not use tmur-shs-bwesqnp medicines in place of prescription medicines unless your health care provider approves. Contact your health care provider if you have ongoing indigestion or heartburn. Keep all follow-up visits as told by your health care provider. This is important. This information is not intended to replace advice given to you by your health care provider. Make sure you discuss any questions you have with your health care provider. Document Released: 06/18/2001 Document Revised: 12/27/2018 Document Reviewed: 12/27/2018 [employer] Patient Education 2020 [employer] 10/12/2021 10:12:41 Endoscopy, Care After Procedure (SHSSTEV) Endoscopy Care After Procedure Please read the instructions outlined below and refer to this sheet in the next few weeks. These discharge instructions provide you with general information on caring [facility] Your doctor may also give you specific instructions. While your treatment has been planned according to the most current medical practices available, unavoidable complications occasionally occur. If you have any problems or questions after discharge, please call your doctor. ACTIVITY You may resume your regular activity but move at a slower pace for the next 24 hours. Take frequent rest periods for the next 24 hours. Walking will help expel (get rid of) the air and reduce the bloated feeling in your abdomen. No driving for 24 hours (because of the anesthesia (medicine) used during the test). You may shower. Do not sign any important legal documents or operate any machinery for 24 hours (because of the anesthesia used during the test). NUTRITION Drink plenty of fluids. You may resume your normal diet. Begin with a light meal and progress to your normal diet. Avoid alcoholic beverages for 24 hours or as instructed by your caregiver. MEDICATIONS You may resume your normal medications unless your caregiver tells you otherwise. WHAT YOU CAN EXPECT TODAY You may experience abdominal discomfort such as a feeling of fullness or gas pains. FOLLOW-UP Your doctor will discuss the results of your test with you. SEEK IMMEDIATE MEDICAL ATTENTION IF ANY OF THE FOLLOWING OCCUR: Excessive nausea (feeling sick to your stomach) and/or vomiting. Severe abdominal pain and distention (swelling). Trouble swallowing. Temperature over 100 F (37.8 C). Rectal bleeding or vomiting of blood. Document Released: 02/02/2005 Document Re-Released: 12/13/2006 [facility] Patient Information 2009 [employer]. Follow Up Care 10/09/2021 08:53:26 With:Vito ROBERTSON Address: [address] [place] [address] Business (1) When: Unknown Comments:Peptic Ulcer With:TERESA PATEL Address: [address] [facility] [address] [phone] Business (1) When: Unknown [facility]07-24-2003 History of Past illness Narrative* Problem Noted Date Diagnosed Date Resolved Date Migraine 01/25/2003 04/09/2023 documented as of this encounter (statuses as of 04/10/2023) [address] History of Past illness Narrative* Problem Noted Date Diagnosed Date Resolved Date Migraine 01/25/2003 04/09/2023 documented as of this encounter (statuses as of 04/10/2023) [address] History of Past illness Narrative* Problem Noted Date Diagnosed Date Resolved Date Migraine 01/25/2003 04/09/2023 documented as of this encounter (statuses as of 04/13/2023) [address] History of Past illness Narrative* Problem Noted Date Diagnosed Date Resolved Date Migraine 01/25/2003 04/09/2023 documented as of this encounter (statuses as of 04/15/2023) [address] History of Past illness Narrative* Problem Noted Date Diagnosed Date Resolved Date Migraine 01/25/2003 04/09/2023 documented as of this encounter (statuses as of 04/16/2023) [address] History of Past illness Narrative* Problem Noted Date Diagnosed Date Resolved Date Migraine 01/25/2003 04/09/2023 documented as of this encounter (statuses as of 05/12/2023) [address] History of Past illness Narrative* Problem Noted Date Diagnosed Date Resolved Date Migraine 01/25/2003 04/09/2023 documented as of this encounter (statuses as of 06/02/2023) [address] History of Past illness Narrative* Problem Noted Date Diagnosed Date Resolved Date Migraine 01/25/2003 04/09/2023 documented as of this encounter (statuses as of 06/03/2023) [address] History of Past illness Narrative* Problem Noted Date Diagnosed Date Resolved Date Migraine 01/25/2003 04/09/2023 documented as of this encounter (statuses as of 06/04/2023) [address] History of Past illness Narrative* Problem Noted Date Diagnosed Date Resolved Date Migraine 01/25/2003 04/09/2023 documented as of this encounter (statuses as of 06/04/2023) [address] History of Past illness Narrative* Problem Noted Date Diagnosed Date Resolved Date Migraine 01/25/2003 04/09/2023 documented as of this encounter (statuses as of 06/14/2023) [address] History of Past illness Narrative* Problem Noted Date Diagnosed Date Resolved Date Migraine 01/25/2003 04/09/2023 documented as of this encounter (statuses as of 06/18/2023) [address] History of Past illness Narrative* Problem Noted Date Diagnosed Date Resolved Date Migraine 01/25/2003 04/09/2023 documented as of this encounter (statuses as of 06/19/2023) [address] History of Past illness Narrative* Problem Noted Date Diagnosed Date Resolved Date Migraine 01/25/2003 04/09/2023 documented as of this encounter (statuses as of 06/20/2023) [address] History of Past illness Narrative* Problem Noted Date Diagnosed Date Resolved Date Migraine 01/25/2003 04/09/2023 documented as of this encounter (statuses as of 07/04/2023) [address] History of Past illness Narrative* Problem Noted Date Diagnosed Date Resolved Date Migraine 01/25/2003 04/09/2023 documented as of this encounter (statuses as of 08/06/2023) [address] History of Past illness Narrative* Problem Noted Date Diagnosed Date Resolved Date Migraine 01/25/2003 04/09/2023 documented as of this encounter (statuses as of 08/06/2023) [address] History of Past illness Narrative* Problem Noted Date Diagnosed Date Resolved Date Migraine 01/25/2003 04/09/2023 documented as of this encounter (statuses as of 08/11/2023) [address] History of Past illness Narrative* Problem Noted Date Diagnosed Date Resolved Date Migraine 01/25/2003 04/09/2023 documented as of this encounter (statuses as of 08/13/2023) [address] History of Past illness Narrative* Problem Noted Date Diagnosed Date Resolved Date Migraine 01/25/2003 04/09/2023 documented as of this encounter (statuses as of 08/19/2023) [address] History of Past illness Narrative* Problem Noted Date Diagnosed Date Resolved Date Migraine 01/25/2003 04/09/2023 documented as of this encounter (statuses as of 08/26/2023) [address] History of Past illness Narrative* Problem Noted Date Diagnosed Date Resolved Date Migraine 01/25/2003 04/09/2023 documented as of this encounter (statuses as of 08/26/2023) [address] History of Past illness Narrative* Problem Noted Date Diagnosed Date Resolved Date Migraine 01/25/2003 04/09/2023 documented as of this encounter (statuses as of 08/27/2023) [address] History of Past illness Narrative* Problem Noted Date Diagnosed Date Resolved Date Migraine 01/25/2003 04/09/2023 documented as of this encounter (statuses as of 09/02/2023) [address] History of Past illness Narrative* Problem Noted Date Diagnosed Date Resolved Date Migraine 01/25/2003 04/09/2023 documented as of this encounter (statuses as of 09/06/2023) [address] History of Past illness Narrative* Problem Noted Date Diagnosed Date Resolved Date Migraine 01/25/2003 04/09/2023 documented as of this encounter (statuses as of 09/09/2023) [address] History of Past illness Narrative* Problem Noted Date Diagnosed Date Resolved Date Migraine 01/25/2003 04/09/2023 documented as of this encounter (statuses as of 09/09/2023) [address] History of Past illness Narrative* Problem Noted Date Diagnosed Date Resolved Date Migraine 01/25/2003 04/09/2023 documented as of this encounter (statuses as of 09/10/2023) [address] History of Past illness Narrative* Problem Noted Date Diagnosed Date Resolved Date Migraine 01/25/2003 04/09/2023 documented as of this encounter (statuses as of 09/10/2023) [address] History of Past illness Narrative* Problem Noted Date Diagnosed Date Resolved Date Migraine 01/25/2003 04/09/2023 documented as of this encounter (statuses as of 09/15/2023) [address] History of Past illness Narrative* Problem Noted Date Diagnosed Date Resolved Date Migraine 01/25/2003 04/09/2023 documented as of this encounter (statuses as of 09/27/2023) [address] History of Past illness Narrative* Problem Noted Date Diagnosed Date Resolved Date Migraine 01/25/2003 04/09/2023 documented as of this encounter (statuses as of 10/22/2023) [facility] Appointment Date:12/24/2021 08:30:00 AM Scheduled Provider:Vito ROBERTSON MD Location:[facility] Appointment Type:BADH Follow Up [facility] Evaluation + Plan note Future Appointments Appointment Date:02/12/2022 09:00:00 AM Scheduled Provider: Location:[facility] Appointment Type:Surgery PAT COVID Testing Appointment Date:02/19/2022 08:35:00 AM Scheduled Provider: Location:[facility] Appointment Type:Surgery FT Future Scheduled Tests Laboratory* Gastrin Level 12/24/21 [facility] Evaluation + Plan note Future Appointments Appointment Date:02/09/2022 08:40:00 AM Scheduled Provider: Location:[facility] Appointment Type:Surgery FT Appointment Date:03/11/2022 08:00:00 AM Scheduled Provider:Vito ROBERTSON MD Location:[facility] Appointment Type:BAD Follow Up Future Scheduled Tests Laboratory* Gastrin Level 12/24/21 [facility] Evaluation + Plan note Future Appointments Appointment Date:03/11/2022 08:00:00 AM Scheduled Provider:Vito ROBERTSON MD Location:[facility] Appointment Type:BAD Follow Up Future Scheduled Tests Laboratory* Gastrin Level [facility] Appointment Date:02/24/2022 03:00:00 PM Scheduled Provider:Vito ROBERTSON MD Location:[facility] Health Appointment Type:BAD Follow Up Future Scheduled Tests Laboratory* Gastrin Level 12/24/21 [facility] Evaluation + Plan note Future Appointments Appointment Date:08/03/2022 03:00:00 PM Scheduled Provider: Location:.[facility] Appointment Type:US Abdominal/Pelvis (FT) Future Scheduled Tests Laboratory* [id number] 07/30/22 * Ceruloplasmin 07/30/22 * Antimitochondrial Antibody, Quantitative 07/30/22 * Smooth Muscle Antibody Screen 07/30/22 * DAY w/Reflex if POS 07/30/22 * TIBC Calculated 07/30/22 * Celiac Disease Comprehensive 07/30/22 * HCV Antibody RFX to Quant PCR 07/30/22 * CBC w/ Indices 07/30/22 * Comprehensive Metabolic Panel 07/30/22 * Ferritin 07/30/22 * Gastrin Level 12/24/21 * Hepatitis B Surface Antibody 07/30/22 * Hepatitis B Surface Antigen 07/30/22 * Iron Level 07/30/22 * Transferrin 07/30/22 Radiology* US Liver 08/03/22 [facility] Evaluation + Plan note Future Appointments Appointment Date:10/27/2022 10:30:00 AM Scheduled Provider: [facility] Type:US Abdominal/Pelvis (FT) Appointment Date:11/19/2022 09:20:00 AM Scheduled Provider:Amara Palacio CNP Location:[facility] Digestive [facility] Appointment Type:[facility] Follow Up Future Scheduled Tests Laboratory* Fecal WBC Lactoferrin 10/22/22 * Giardia lamblia, Direct Detection EIA 10/22/22 * O & P Exam, Routine 10/22/22 * Clostridium Difficile PCR 10/22/22 * Enteric Panel by PCR 10/22/22 Radiology* US Gallbladder 10/27/22 [facility] Evaluation + Plan note Future Appointments Appointment Date:10/27/2022 10:30:00 AM Scheduled [facility]: [facility] Type:US Abdominal/Pelvis (FT) Appointment Date:11/19/2022 09:20:00 AM Scheduled Provider:Amara Palacio CNP Location:[facility] Digestive [facility] Appointment Type:[facility] Follow Up Diagnostic Tests Pending * Wmpdm-3-Tuoadzgteed 10/22/22 * Antimitochondrial Antibody, Quantitative 10/22/22 * DAY w/Reflex if POS 10/22/22 * Celiac Disease Comprehensive 10/22/22 * Ceruloplasmin 10/22/22 * Hepatitis B Surface Antibody 10/22/22 * Hepatitis B Surface Antigen 10/22/22 * HCV Antibody RFX to Quant PCR 10/22/22 * Smooth Muscle Antibody Screen 10/22/22 * Gastrin Level 10/22/22 Future Scheduled Tests Laboratory* Fecal WBC Lactoferrin 10/22/22 * Giardia lamblia, Direct Detection EIA 10/22/22 * O & P Exam, Routine 10/22/22 * Clostridium Difficile PCR 10/22/22 * Enteric Panel by PCR 10/22/22 Radiology* US Gallbladder [facility]27[facility]22 [facility]ments Appointment Date:11/19/2022 09:20:00 AM Scheduled Provider:Amara Palacio CNP Location:[facility] [facility] Appointment Type:[facility] Follow Up Future Scheduled Tests Laboratory* Fecal WBC Lactoferrin 10/22/22 * Giardia lamblia, Direct Detection EIA 10/22/22 * O & P Exam, Routine 10/22/22 * Clostridium Difficile PCR 10/22/22 * Enteric Panel by PCR 10/22/22 [facility] Future Appointments Appointment Date:11/19/2022 09:20:00 AM Scheduled Provider:Amara Palacio CNP Location:[facility] Appointment Type:[facility] Follow Up Diagnostic Tests Pending * PAP [id number] 11/05/22 Future Scheduled Tests Laboratory* Fecal WBC Lactoferrin 10/22/22 * Giardia lamblia, Direct Detection EIA 10/22/22 * O & P Exam, Routine 10/22/22 * Clostridium Difficile PCR 10/22/22 * Enteric Panel by PCR 10/22/22 [facility]* Diagnosis Diarrhea of presumed infectious origin- Primary [facility] [place] [facility] Diagnosis History of TMJ disorder- Primary Personal history of other musculoskeletal disorders [facility] [place] [facility]* Diagnosis Chiari malformation type I (HCC)- Primary Compression of brain History of TMJ syndrome Personal history of other musculoskeletal disorders [facility] [place] [facility]* Diagnosis Chiari I malformation (HCC)- Primary Compression of brain Chiari malformation type I (HCC) Compression of brain [facility] [place] [facility]* Diagnosis Abnormal EKG- Primary Nonspecific abnormal electrocardiogram (ECG) (EKG) Encounter to establish care with new doctor Other reasons for seeking consultation PTSD (post-traumatic stress disorder) Posttraumatic stress disorder DIMITRI (generalized anxiety disorder) Generalized anxiety disorder MDD (major depressive disorder), recurrent episode, mild (HCC) Major depressive disorder, recurrent episode, mild Elevated blood pressure reading in office with diagnosis of hypertension Cerebellar tonsillar ectopia (HCC) Other specified congenital anomalies of brain Prolonged Q-T interval on ECG Nonspecific abnormal electrocardiogram (ECG) (EKG) RBBB Right bundle branch block [facility] Diagnosis Abnormal EKG- Primary Nonspecific abnormal electrocardiogram (ECG) (EKG) RBBB Right bundle branch block Palpitation Palpitations Jaw pain TMJ disorder, unspecified Cerebellar tonsillar ectopia (HCC) Other specified congenital anomalies of brain Neck pain Cervicalgia Upper back pain History of peptic ulcer Personal history of peptic ulcer disease Other irritable bowel syndrome Bipolar 1 disorder (HCC) Bipolar I disorder, most recent episode (or current) unspecified PTSD (post-traumatic stress disorder) Posttraumatic stress disorder DIMITRI (generalized anxiety disorder) Generalized anxiety disorder MDD (major depressive disorder), recurrent episode, mild (HCC) Major depressive disorder, recurrent episode, mild Migraine without status migrainosus, not intractable, unspecified migraine type Abnormal cervical Papanicolaou smear, unspecified abnormal pap finding History of nephrolithiasis Personal history of urinary calculi Elevated blood pressure reading in office with diagnosis of hypertension Encounter to establish care with new doctor Other reasons for seeking consultation [facility] Diagnosis Encounter for screening involving social determinants of health (SDoH)- Primary [facility] [place] [facility]* Diagnosis Cervicalgia- Primary 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 Displacement of cervical intervertebral disc without myelopathy Radiculopathy, cervical region Brachial neuritis or radiculitis nos documented [facility] [place] [facility]* Diagnosis Cervicalgia 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 Displacement of cervical intervertebral disc without myelopathy Radiculopathy, cervical region Brachial neuritis or radiculitis nos documented [facility] [place] [facility]* Diagnosis Spinal stenosis of cervical region- Primary Spinal stenosis in cervical region Cervicalgia Displacement of cervical intervertebral disc without myelopathy Brachial neuritis Brachial neuritis or radiculitis nos [facility] Diagnosis Spinal stenosis of cervical region- Primary Spinal stenosis in cervical region Cervical spinal stenosis Spinal stenosis in cervical region Pre-op testing Preoperative examination, unspecified [facility] [place] [facility]* Diagnosis 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)- Primary [facility] [place] [facility]* Diagnosis Palpitations- Primary Bipolar 1 disorder (HCC) Bipolar I disorder, most recent episode (or current) unspecified S/P cervical spinal fusion Arthrodesis status [facility] [place] [facility]* Diagnosis Chronic TMJ pain- Primary [facility] [place] [facility]* Diagnosis Postoperative pain Other acute postoperative pain [facility] [place] [facility]* Diagnosis 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 general Narrative - Reported* Type Description Date Medical History migraines Medical History back pain Medical History Esophageal reflux Surgical History Acl left knee 2002 Surgical History left knee ligament reconstructi on 2003 Hospitalization History 01/30/05 Hospitalization History stomach ulcer 2021 [facility] Other Hospital course Narrative No data available for this section [facility] No data available for this section [facility] Progress note No data available for this section [facility] Reason for referral (narrative)* Diagnostic Procedure Only (Routine) - Closed Specialty Diagnoses / Procedures Referred By Renee ambrosio Referred To Contact XR IMAGING Diagnoses Cervicalgia 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 Radiculopathy, cervical region Procedures XR CERV OTHER 4V AP/LAT/FLX/EXT RADEX SPINE CERVICAL 4 OR 5 VIEWS Huy Ascencio, COOLER DELIVERER.FINANCIAL INSTITUTION PRESIDENT [id number] [place] [address] [place] [address] Referral ID Status Reason Start Date Expiration Date V isits Requested Visits Authorized [id number] Closed Auto-Generate d Referral 06/18/2023 07/17/2024 1 1 [facility] for visit Narrative* Diagnostic Procedure Only (Routine) - Closed Specialty Diagnoses / Procedures Referred By Contac t Referred To Contact XR IMAGING Diagnoses Cervicalgia 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 Radiculopathy, cervical region Procedures XR CERV OTHER 4V AP/LAT/FLX/EXT RADEX SPINE CERVICAL 4 OR 5 VIEWS Huy Ascencio APRN.FINANCIAL INSTITUTION PRESIDENT [id number] [place] [id number] X[facility] [place] [address] Referral ID Status Reason Start Date Expiration Date V isits Requested Visits Authorized [id number] Closed Auto-Generate d Referral 06/18/2023 07/17/2024 1 1 [facility] for visit Narrative* Diagnostic Procedure Only (Routine) - Closed Specialty Diagnoses / Procedures Referred By Contac t Referred To Contact XR IMAGING Diagnoses Cervical spinal stenosis Pre-op testing Procedures XR CERV GENERAL 2V AP/LAT RADEX SPINE CERVICAL 2 OR 3 VIEWS Joo Cruz MD [address] [place] [address] Xr Imaging [facility] Referral ID Status Reason Start Date Expiration Date V isits Requested Visits Authorized [id number] Closed Auto-Generate d Referral 07/07/2023 08/04/2024 1 1 [facility] Summary Purpose Family History No Family History Records FoundNo Family History Records FoundNo Family History Records FoundNo Family History Records FoundNo Family History Records FoundNo Family History Records FoundNo Family History Records Found No data available for this section No Family History Records FoundNo Family History Records FoundNo Family History Records FoundNo Family History Records Found Advance Directives No Advanced Directives Records FoundLatest Code Status on File Code Status Date Activated Date Inactivated Comments Full Code 05/03/2016 3:00 PM 05/05/2016 1:34 PM Code Status History Code Status Date Activated Date Inactivated Comments Full Code 05/03/2016 4:03 AM 05/03/2016 3:00 PM Full Code 05/03/2016 3:46 AM 05/03/2016 4:03 AM Reason for Referral Specialty Diagnoses / Procedures Referred By Contac t Referred To Contact [facility] Diagnoses 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) Procedures CONSULT TO PHYSICAL THERAPY PHYSICAL THERAPY EVALUATION HIGH COMPLEX 45 MINS Joo Cruz MD [address] [place] [address] [facility] [place] [address] [place] [address] Referral ID Status Reason Start Date Expiration Date Visits Requested Visits Authorized [id number] Pending Review Auto-Generat ed Referral 11/01/2023 10/31/2024 1 1 Specialty Diagnoses / Procedures Referred By Contac t Referred To Contact Dentistry Diagnoses Chronic TMJ pain Procedures CONSULT TO DENTISTRY OFFICE/OUTPATIENT [facility] MDM 60 MINUTES Reuben Agrawal PA-C [address] [place] [address] Referral ID Status Reason Start Date Expiration Date Visits Requested Visits Authorized [id number] Pending Review PCP Requested Referral 09/14/2023 09/13/2024 1 1 Specialty Diagnoses / Procedures Referred By Contac t Referred To Contact CT IMAGING Diagnoses Spinal stenosis of cervical region Procedures CT CERVICAL SPINE WO IVCON CT CERVICAL SPINE W/O CONTRAST MATERIAL Joo Cruz MD [address] [place] [address] [address] [place] [address] Referral ID Status Reason Start Date Expiration Date Visits Requested Visits Authorized [id number] Additional Clinical Info Needed Auto-Generat ed Referral 3 07/31/2024 1 1 Specialty Diagnoses / Procedures Referred By Contac t Referred To Contact Diagnoses Cervicalgia 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 Radiculopathy, cervical region Procedures CONSULT TO SPINE SURGERY OFFICE/OUTPATIENT [facility] MDM 60-74 MINUTES Huy Ascencio APRN.FINANCIAL INSTITUTION PRESIDENT [address] [place] [address] Referral ID Status Reason Start Date Expiration Date Visits Requested Visits Authorized [id number] Authorized PCP Requested Referral 3 06/17/2024 1 1 Specialty Diagnoses / Procedures Referred By Contac t Referred To Contact XR IMAGING Diagnoses Cervicalgia 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 Radiculopathy, cervical region Procedures XR CERV OTHER 4V AP/LAT/FLX/EXT RADEX SPINE CERVICAL 4 OR 5 VIEWS Huy Ascencio, COOLER DELIVERER.FINANCIAL INSTITUTION PRESIDENT [address] [place] [address] [place] [address] Referral ID Status Reason Start Date Expiration Date V isits Requested Visits Authorized [id number] Closed Auto-Generate d Referral 06/18/2023 07/17/2024 1 1 Specialty Diagnoses / Procedures Referred By Contac t Referred To Contact [facility] Diagnoses Neck pain Jaw pain Upper back pain Procedures CONSULT TO ROBOTIC WELD TECHNICIAN OCCUPATIONAL THERAPY EVAL HIGH COMPLEX 60 MINS Reuben Agrawal PA-C [address] [place] [address] [facility] [address] [address] Referral ID Status Reason Start Date Expiration Date Visits Requested Visits Authorized [id number] Pending Review Auto-Generat ed Referral 04/09/2023 04/08/2024 1 1 Specialty Diagnoses / Procedures Referred By Contac t Referred To Contact [facility] Diagnoses Neck pain Jaw pain Upper back pain Procedures CONSULT TO PHYSICAL THERAPY PHYSICAL THERAPY EVALUATION HIGH COMPLEX 45 MINS Reuben Agrawal PA-C [address] [place] [address] [facility] [address] [address] Referral ID Status Reason Start Date Expiration Date Visits Requested Visits Authorized [id number] Pending Review Auto-Generat ed Referral 04/09/2023 04/08/2024 1 1 Specialty Diagnoses / Procedures Referred By Contac t Referred To Contact Cardiology Diagnoses Abnormal EKG Procedures CONSULT TO CARDIOLOGY OFFICE/OUTPATIENT [facility] MDM 60-74 MINUTES Reuben Agrawal PA-C [address] [place] [address] Referral ID Status Reason Start Date Expiration Date Visits Requested Visits Authorized [id number] Authorized PCP Requested Referral 04/09/2023 04/08/2024 1 1 Specialty Diagnoses / Procedures Referred By Contac t Referred To Contact [facility] Diagnoses Abnormal EKG Procedures ECHO ECHO TTHRC R-T 2D W/WOM-MODE COMPL SPEC&COLR D Reuben Agrawal PA-C [address] [place] [address] [facility] [place] [address] [place] [address] Referral ID Status Reason Start Date Expiration Date Visits Requested Visits Authorized [id number] Pending Review Auto-Generat ed Referral 04/09/2023 04/08/2024 1 1 Specialty Diagnoses / Procedures Referred By Renee ambrosio Referred To Contact Cardiology Diagnoses PTSD (post-traumatic stress disorder) DIMITRI (generalized anxiety disorder) MDD (major depressive disorder), recurrent episode, mild (HCC) Elevated blood pressure reading in office with diagnosis of hypertension Cerebellar tonsillar ectopia (HCC) Abnormal EKG Prolonged Q-T interval on ECG RBBB Procedures CONSULT TO CARDIOLOGY OFFICE/OUTPATIENT NEW [facility]IGH MDM 60-74 MINUTES Maurice León MD [address] [facility] [address] [place] [address] Referral ID Status Reason Start Date Expiration Date Visits Requested Visits Authorized [id number] Authorized PCP Requested Referral 04/07/2023 04/06/2024 1 1 Specialty Diagnoses / Procedures Referred By Renee ambrosio Referred To Contact [facility] Diagnoses Encounter to establish care with new doctor PTSD (post-traumatic stress disorder) DIMITRI (generalized anxiety disorder) MDD (major depressive disorder), recurrent episode, mild (HCC) Elevated blood pressure reading in office with diagnosis of hypertension Cerebellar tonsillar ectopia (HCC) Abnormal EKG Procedures ESTABLISH WITH PRIMARY CARE NEW PATIENT OFFICE/OUTPATIENT NEW [facility] 60-74 MINUTES Maurice León MD [address] [facility] [address] [place] [address] [facility] [address] [place] [address] Referral ID Status Reason Start Date Expiration Date Visits Requested Visits Authorized [id number] Authorized PCP Requested Referral 04/07/2023 04/06/2024 1 1 Specialty Diagnoses / Procedures Referred By Renee ambrosio Referred To Contact MR IMAGING Diagnoses Chiari I malformation (HCC) Procedures MRI CERVICAL SPINE WO IVCON MRI SPINAL CANAL CERVICAL W/O CONTRAST LILYL Zoraida Valle PA-C [address] [place] [address] [place] [address] Referral ID Status Reason Start Date Expiration Date Visits Requested Visits Authorized [id number] Pending Review Auto-Generat ed Referral 03/18/2023 04/16/2024 1 1 Specialty Diagnoses / Procedures Referred By Contac t Referred To Contact Neurosurgery Diagnoses Chiari malformation type I (HCC) Procedures CONSULT TO NEUROSURGERY OFFICE/OUTPATIENT [facility] MDM 60-74 MINUTES Tristan Guallpa MD [address] [place] [address] Referral ID Status Reason Start Date Expiration Date Visits Requested Visits Authorized [id number] Authorized PCP Requested Referral 03/05/2023 03/04/2024 1 1 Additional Source Comments INFORMATION SOURCE (unrecogn ized section and content) DATE CREATED AUTHOR 08/12/2021 [employer] DATE CREATED AUTHOR AUTHOR'S ORGANIZ ATION 05/22/2022 [facility] DATE CREATED AUTHOR AUTHOR'S ORGANIZ ATION 02/16/2023 [facility] DATE CREATED AUTHOR AUTHOR'S ORGANIZ ATION 03/05/2023 [facility] DATE CREATED AUTHOR AUTHOR'S ORGANIZ ATION 05/12/2023 [facility] DATE CREATED AUTHOR AUTHOR'S ORGANIZ ATION 07/17/2023 [facility] DATE CREATED AUTHOR AUTHOR'S ORGANIZ ATION 09/11/2023 [facility] DATE CREATED AUTHOR AUTHOR'S ORGANIZ ATION 11/16/2023 [facility] DATE CREATED AUTHOR AUTHOR'S ORGANIZ ATION 11/16/2023 [facility] DATE CREATED AUTHOR AUTHOR'S ORGANIZ ATION 11/25/2023 [facility] DATE CREATED AUTHOR AUTHOR'S ORGANIZ ATION 12/14/2023 [facility] [place] [facility] dical Specialists EPIC Care Team (unrecognized sect ion and content) Round Kiln Drawer Relationship Specialty Start Date End Date Teresa Patel, FINANCIAL INSTITUTION PRESIDENT [address] [place] [address] PCP - General 12/18/18 Amara Palacio CNP [address] [place] [address] Referring Family Practice 02/20/22 [employer]n Drawer Relationship Specialty Start Date End Date Sterling Cavazost [address] [place] [address] PCP - General 05/02/16 [employer] Drawer Relationship Specialty Start Date End Date Teresa Patel CNP [address] [place] [address] PCP - General 12/18/18 Amara Palacio CNP [address] [place] [address] Referring Family Medicine 02/20/22 [employer] Drawer Relationship Specialty Start Date End Date Teresa Patel CNP [address] [place] [address] PCP - General 12/18/18 Amara Palacio CNP [address] [place] [address] Referring Family Medicine 02/20/22 [employer] Drawer Relationship Specialty Start Date End Date Teresa Patel CNP [address] [place] [address] PCP - General 12/18/18 Amara Palacio CNP [address] [place] [address] Referring Family Medicine 02/20/22 Round [employer]n Drawer Relationship Specialty Start Date End Date Teresa Patel CNP [address] [facility] [place] [address] PCP - General 12/18/18 Amara Palacio CNP [address] [place] [address] Referring Family Medicine 02/20/22 [employer] Drawer Relationship Specialty Start Date End Date Teresa Patel CNP [address] [facility] [place] [address] PCP - General 12/18/18 Amara Palacio CNP [address] [place] [address] Referring Family Medicine 02/20/22 [employer] Drawer Relationship Specialty Start Date End Date Teresa Patel CNP [address] [facility] [place] [address] PCP - General 12/18/18 Amara Palacio CNP [address] [place] [address] Referring Family Medicine 02/20/22 Round [employer]n Drawer Relationship Specialty Start Date End Date Teresa Patel CNP [address] [facility] [place] [address] PCP - General 12/18/18 Amara Palacio CNP [address] [place] [address] Referring Family Medicine 02/20/22 Round [employer] Drawer Relationship Specialty Start Date End Date Teresa Patel CNP [address] [place] [address] PCP - General 12/18/18 Amara Palacio CNP [address] [place] [address] Referring Family Medicine 02/20/22 Round [employer]n Drawer Relationship Specialty Start Date End Date Reuben Agrawal PA-C [address] [place] [address] PCP - General Internal Medicine 04/09/23 Amara Palacio CNP [address] [place] [address] Referring Family Medicine 02/20/22 Round Kiln Drawer Relationship Specialty Start Date End Date Reuben Agrawal PA-C [address] [place] [address] PCP - General Internal Medicine 04/09/23 Amara Palacio CNP [address] [place] [address] Referring Family Medicine 02/20/22 Round Kiln Drawer Relationship Specialty Start Date End Date Reuben Agrawal PA-C [address] [place] [address] PCP - General Internal Medicine 04/09/23 Amara Palacio CNP [address] [place] [address] Referring Family Medicine 02/20/22 Round Kiln Drawer Relationship Specialty Start Date End Date Reuben Agrawal PA-C [address] [place] [address] PCP - General Internal Medicine 04/09/23 Amara Palacio, LEILA [address] [place] [address] Referring Family Medicine 02/20/22 [facility] [employer] Drawer Relationship Specialty Start Date End Date Teresa Patel FINANCIAL INSTITUTION PRESIDENT [address] [place] [address] PCP - General 12/18/18 04/08/23 Reuben Agrawal PA-C [address] [place] [address] PCP - General Internal Medicine 04/09/23 Amara Palacio, LEILA [address] [place] [address] Referring Family Medicine 02/20/22 [facility] 04/15/23 04/20/23 Round [employer]n Drawer Relationship Specialty Start Date End Date Reuben Agrawal PA-C [address] [place] [address] PCP - General Internal Medicine 04/09/23 Amara Palacio, LEILA [address] [place] [address] Referring Family Medicine 02/20/22 Round Kiln Drawer Relationship Specialty Start Date End Date Reuben Agrawal PA-C [address] [place] [address] PCP - General Internal Medicine 04/09/23 Amara Palacio CNP [address] [place] [address] Referring Family Medicine 02/20/22 Round Kiln Drawer Relationship Specialty Start Date End Date Reuben Agrawal PA-C [address] [place] [address] PCP - General Internal Medicine 04/09/23 Amara Palacio CNP [address] [place] [address] Referring Family Medicine 02/20/22 Round Kiln Drawer Relationship Specialty Start Date End Date Reuben Agrawal PA-C [address] [place] [address] PCP - General Internal Medicine 04/09/23 Amara Palacio CNP [address] [place] [address] Referring Family Medicine 02/20/22 Round [employer]n Drawer Relationship Specialty Start Date End Date Reuben Agrawal PA-C [address] [place] [address] PCP - General Internal Medicine 04/09/23 Amara Palacio CNP [address] [place] [address] Referring Family Medicine 02/20/22 Round Kiln Drawer Relationship Specialty Start Date End Date Reuben Agrawal PA-C [address] [place] [address] PCP - General Internal Medicine 04/09/23 Amara Palacio, LEILA [address] [place] [address] Referring Family Medicine 02/20/22 Round Kiln Drawer Relationship Specialty Start Date End Date Reuben Agrawal PA-C [address] [place] [address] PCP - General Internal Medicine 04/09/23 Amara Palacio, LEILA [address] [place] [address] Referring Family Medicine 02/20/22 Round Kiln Drawer Relationship Specialty Start Date End Date Teresa [facility] FINANCIAL INSTITUTION PRESIDENT [address] [place] [address] PCP - General 12/18/18 04/08/23 Reuben Agrawal PA-C [address] [place] [address] PCP - General Internal Medicine 04/09/23 Amara Palacio, FINANCIAL INSTITUTION PRESIDENT [address] [facility] [place] [place] [address] Referring Family Medicine 02/20/22 Nitza Yarbrough LSW Retail Event Coordinator Interior Design Faculty Member 04/15/23 04/20/23 Round Kiln Drawer Relationship Specialty Start Date End Date Reuben Agrawal PA-C [address] [place] [address] PCP - General Internal Medicine 04/09/23 Amara Palacio CNP [address] [place] [address] Referring Family Medicine 02/20/22 Round Kiln Drawer Relationship Specialty Start Date End Date Reuben Agrawal PA-C [address] [place] [address] PCP - General Internal Medicine 04/09/23 Amara Palacio CNP [address] [place] [address] Referring Family Medicine 02/20/22 Round Kiln Drawer Relationship Specialty Start Date End Date Reuben Agrawal PA-C [address] [place] [address] PCP - General Internal Medicine 04/09/23 Amara Palacio CNP [address] [place] [address] Referring Family Medicine 02/20/22 Round Kiln Drawer Relationship Specialty Start Date End Date Reuben Agrawal PA-C [address] [place] [address] PCP - General Internal Medicine 04/09/23 Amara Palacio CNP [address] [place] [address] Referring Family Medicine 02/20/22 Round Kiln Drawer Relationship Specialty Start Date End Date Reuben Agrawal PA-C [address] [place] [address] PCP - General Internal Medicine 04/09/23 Amara Palacio CNP [address] [place] [address] Referring Family Medicine 02/20/22 Round Kiln Drawer Relationship Specialty Start Date End Date Reuben Agrawal PA-C [address] [place] [address] PCP - General Internal Medicine 04/09/23 Amara Palacio CNP [address] [place] [address] Referring Family Medicine 02/20/22 Round Kiln Drawer Relationship Specialty Start Date End Date Reuben Agrawal PA-C [address] [place] [address] PCP - General Internal Medicine 04/09/23 Amara Palacio CNP [address] [place] [address] Referring Family Medicine 02/20/22 Round Kiln Drawer Relationship Specialty Start Date End Date Reuben Agrawal PA-C [address] [place] [address] PCP - General Internal Medicine 04/09/23 Amara Palacio, LEILA [address] [place] [address] Referring Family Medicine 02/20/22 Round Kiln Drawer Relationship Specialty Start Date End Date Reuben Agrawal PA-C [address] [place] [address] PCP - General Internal Medicine 04/09/23 Amara Palacio CNP [address] [place] [address] Referring Family Medicine 02/20/22 Round Kiln Drawer Relationship Specialty Start Date End Date Reuben Agrawal PA-C [address] [place] [address] PCP - General Internal Medicine 04/09/23 Amara Palacio CNP [address] [place] [address] Referring Family Medicine 02/20/22 Round Kiln Drawer Relationship Specialty Start Date End Date Reuben Agrawal PA-C [address] [place] [address] PCP - General Internal Medicine 04/09/23 Amara Palacio CNP [address] [place] [address] Referring Family Medicine 02/20/22 Round Kiln Drawer Relationship Specialty Start Date End Date Reuben Agrawal PA-C [address] [place] [address] PCP - General Internal Medicine 04/09/23 Amara Palacio CNP [address] [place] [address] Referring Family Medicine 02/20/22 Round Kiln Drawer Relationship Specialty Start Date End Date Reuben Agrawal PA-C [address] [place] [address] PCP - General Internal Medicine 04/09/23 Amara Palacio CNP [address] [place] [address] Referring Family Medicine 02/20/22 Round Kiln Drawer Relationship Specialty Start Date End Date Reuben Agrawal PA-C [address] [place] [address] PCP - General Internal Medicine 04/09/23 Amara Palacio CNP [address] [place] [address] Referring Family Medicine 02/20/22 Source Comments (unrecognize d section and content) In the event this informatio n is protected by the Federal Confidentiality of Alcohol and Drug Abuse Patient Records regulations: The Federal rules restrict any use of the information to criminally investigate or prosecute any alcohol or drug abuse patient.[facility] the event this information is protected by the Federal Confidentiality of Alcohol and Drug Abuse Patient Records regulations: The Federal rules restrict any use of the information to criminally investigate or prosecute any alcohol or drug abuse patient.[facility] HospitalIn the event this information is protected by the Federal Confidentiality of Alcohol and Drug Abuse Patient Records regulations: The Federal rules restrict any use of the information to criminally investigate or prosecute any alcohol or drug abuse patient.[facility] HospitalIn the event this information is protected by the Federal Confidentiality of Alcohol and Drug Abuse Patient Records regulations: The Federal rules restrict any use of the information to criminally investigate or prosecute any alcohol or drug abuse patient.[facility] HospitalIn the event this information is protected by the Federal Confidentiality of Alcohol and Drug Abuse Patient Records regulations: The Federal rules restrict any use of the information to criminally investigate or prosecute any alcohol or drug abuse patient.[facility] HospitalIn the event this information is protected by the Federal Confidentiality of Alcohol and Drug Abuse Patient Records regulations: The Federal rules restrict any use of the information to criminally investigate or prosecute any alcohol or drug abuse patient.[facility] HospitalIn the event this information is protected by the Federal Confidentiality of Alcohol and Drug Abuse Patient Records regulations: The Federal rules restrict any use of the information to criminally investigate or prosecute any alcohol or drug abuse patient.[facility] HospitalIn the event this information is protected by the Federal Confidentiality of Alcohol and Drug Abuse Patient Records regulations: The Federal rules restrict any use of the information to criminally investigate or prosecute any alcohol or drug abuse patient.[facility] HospitalIn the event this information is protected by the Federal Confidentiality of Alcohol and Drug Abuse Patient Records regulations: The Federal rules restrict any use of the information to criminally investigate or prosecute any alcohol or drug abuse patient.[facility] HospitalIn the event this information is protected by the Federal Confidentiality of Alcohol and Drug Abuse Patient Records regulations: The Federal rules restrict any use of the information to criminally investigate or prosecute any alcohol or drug abuse patient.[facility] HospitalIn the event this information is protected by the Federal Confidentiality of Alcohol and Drug Abuse Patient Records regulations: The Federal rules restrict any use of the information to criminally investigate or prosecute any alcohol or drug abuse patient.[facility] HospitalIn the event this information is protected by the Federal Confidentiality of Alcohol and Drug Abuse Patient Records regulations: The Federal rules restrict any use of the information to criminally investigate or prosecute any alcohol or drug abuse patient.[facility] HospitalIn the event this information is protected by the Federal Confidentiality of Alcohol and Drug Abuse Patient Records regulations: The Federal rules restrict any use of the information to criminally investigate or prosecute any alcohol or drug abuse patient.[facility] HospitalIn the event this information is protected by the Federal Confidentiality of Alcohol and Drug Abuse Patient Records regulations: The Federal rules restrict any use of the information to criminally investigate or prosecute any alcohol or drug abuse patient.[facility] HospitalIn the event this information is protected by the Federal Confidentiality of Alcohol and Drug Abuse Patient Records regulations: The Federal rules restrict any use of the information to criminally investigate or prosecute any alcohol or drug abuse patient.[facility] HospitalIn the event this information is protected by the Federal Confidentiality of Alcohol and Drug Abuse Patient Records regulations: The Federal rules restrict any use of the information to criminally investigate or prosecute any alcohol or drug abuse patient.[facility] HospitalIn the event this information is protected by the Federal Confidentiality of Alcohol and Drug Abuse Patient Records regulations: The Federal rules restrict any use of the information to criminally investigate or prosecute any alcohol or drug abuse patient.[facility] HospitalIn the event this information is protected by the Federal Confidentiality of Alcohol and Drug Abuse Patient Records regulations: The Federal rules restrict any use of the information to criminally investigate or prosecute any alcohol or drug abuse patient.[facility] HospitalIn the event this information is protected by the Federal Confidentiality of Alcohol and Drug Abuse Patient Records regulations: The Federal rules restrict any use of the information to criminally investigate or prosecute any alcohol or drug abuse patient.[facility] HospitalIn the event this information is protected by the Federal Confidentiality of Alcohol and Drug Abuse Patient Records regulations: The Federal rules restrict any use of the information to criminally investigate or prosecute any alcohol or drug abuse patient.[facility] HospitalIn the event this information is protected by the Federal Confidentiality of Alcohol and Drug Abuse Patient Records regulations: The Federal rules restrict any use of the information to criminally investigate or prosecute any alcohol or drug abuse patient.[facility] HospitalIn the event this information is protected by the Federal Confidentiality of Alcohol and Drug Abuse Patient Records regulations: The Federal rules restrict any use of the information to criminally investigate or prosecute any alcohol or drug abuse patient.[facility] HospitalIn the event this information is protected by the Federal Confidentiality of Alcohol and Drug Abuse Patient Records regulations: The Federal rules restrict any use of the information to criminally investigate or prosecute any alcohol or drug abuse patient.[facility] HospitalIn the event this information is protected by the Federal Confidentiality of Alcohol and Drug Abuse Patient Records regulations: The Federal rules restrict any use of the information to criminally investigate or prosecute any alcohol or drug abuse patient.[facility] HospitalIn the event this information is protected by the Federal Confidentiality of Alcohol and Drug Abuse Patient Records regulations: The Federal rules restrict any use of the information to criminally investigate or prosecute any alcohol or drug abuse patient.[facility] HospitalIn the event this information is protected by the Federal Confidentiality of Alcohol and Drug Abuse Patient Records regulations: The Federal rules restrict any use of the information to criminally investigate or prosecute any alcohol or drug abuse patient.[facility] HospitalIn the event this information is protected by the Federal Confidentiality of Alcohol and Drug Abuse Patient Records regulations: The Federal rules restrict any use of the information to criminally investigate or prosecute any alcohol or drug abuse patient.[facility] HospitalIn the event this information is protected by the Federal Confidentiality of Alcohol and Drug Abuse Patient Records regulations: The Federal rules restrict any use of the information to criminally investigate or prosecute any alcohol or drug abuse patient.[facility] HospitalIn the event this information is protected by the Federal Confidentiality of Alcohol and Drug Abuse Patient Records regulations: The Federal rules restrict any use of the information to criminally investigate or prosecute any alcohol or drug abuse patient.[facility] HospitalIn the event this information is protected by the Federal Confidentiality of Alcohol and Drug Abuse Patient Records regulations: The Federal rules restrict any use of the information to criminally investigate or prosecute any alcohol or drug abuse patient.[facility] HospitalIn the event this information is protected by the Federal Confidentiality of Alcohol and Drug Abuse Patient Records regulations: The Federal rules restrict any use of the information to criminally investigate or prosecute any alcohol or drug abuse patient.[facility] HospitalIn the event this information is protected by the Federal Confidentiality of Alcohol and Drug Abuse Patient Records regulations: The Federal rules restrict any use of the information to criminally investigate or prosecute any alcohol or drug abuse patient.[facility] HospitalIn the event this information is protected by the Federal Confidentiality of Alcohol and Drug Abuse Patient Records regulations: The Federal rules restrict any use of the information to criminally investigate or prosecute any alcohol or drug abuse patient.[facility] HospitalIn the event this information is protected by the Federal Confidentiality of Alcohol and Drug Abuse Patient Records regulations: The Federal rules restrict any use of the information to criminally investigate or prosecute any alcohol or drug abuse patient.[facility] HospitalIn the event this information is protected by the Federal Confidentiality of Alcohol and Drug Abuse Patient Records regulations: The Federal rules restrict any use of the information to criminally investigate or prosecute any alcohol or drug abuse patient.[facility] HospitalIn the event this information is protected by the Federal Confidentiality of Alcohol and Drug Abuse Patient Records regulations: The Federal rules restrict any use of the information to criminally investigate or prosecute any alcohol or drug abuse patient.[facility] HospitalIn the event this information is protected by the Federal Confidentiality of Alcohol and Drug Abuse Patient Records regulations: The Federal rules restrict any use of the information to criminally investigate or prosecute any alcohol or drug abuse patient.[facility] HospitalIn the event this information is protected by the Federal Confidentiality of Alcohol and Drug Abuse Patient Records regulations: The Federal rules restrict any use of the information to criminally investigate or prosecute any alcohol or drug abuse patient.[facility] HospitalIn the event this information is protected by the Federal Confidentiality of Alcohol and Drug Abuse Patient Records regulations: The Federal rules restrict any use of the information to criminally investigate or prosecute any alcohol or drug abuse patient.[facility] HospitalIn the event this information is protected by the Federal Confidentiality of Alcohol and Drug Abuse Patient Records regulations: The Federal rules restrict any use of the information to criminally investigate or prosecute any alcohol or drug abuse patient.[facility] HospitalIn the event this information is protected by the Federal Confidentiality of Alcohol and Drug Abuse Patient Records regulations: The Federal rules restrict any use of the information to criminally investigate or prosecute any alcohol or drug abuse patient.[facility] HospitalIn the event this information is protected by the Federal Confidentiality of Alcohol and Drug Abuse Patient Records regulations: The Federal rules restrict any use of the information to criminally investigate or prosecute any alcohol or drug abuse patient.[facility] HospitalIn the event this information is protected by the Federal Confidentiality of Alcohol and Drug Abuse Patient Records regulations: The Federal rules restrict any use of the information to criminally investigate or prosecute any alcohol or drug abuse patient.[facility] HospitalIn the event this information is protected by the Federal Confidentiality of Alcohol and Drug Abuse Patient Records regulations: The Federal rules restrict any use of the information to criminally investigate or prosecute any alcohol or drug abuse patient.[facility] HospitalIn the event this information is protected by the Federal Confidentiality of Alcohol and Drug Abuse Patient Records regulations: The Federal rules restrict any use of the information to criminally investigate or prosecute any alcohol or drug abuse patient.[facility] HospitalIn the event this information is protected by the Federal Confidentiality of Alcohol and Drug Abuse Patient Records regulations: The Federal rules restrict any use of the information to criminally investigate or prosecute any alcohol or drug abuse patient.[facility] HospitalIn the event this information is protected by the Federal Confidentiality of Alcohol and Drug Abuse Patient Records regulations: The Federal rules restrict any use of the information to criminally investigate or prosecute any alcohol or drug abuse patient.[facility] HospitalIn the event this information is protected by the Federal Confidentiality of Alcohol and Drug Abuse Patient Records regulations: The Federal rules restrict any use of the information to criminally investigate or prosecute any alcohol or drug abuse patient.[facility] HospitalIn the event this information is protected by the Federal Confidentiality of Alcohol and Drug Abuse Patient Records regulations: The Federal rules restrict any use of the information to criminally investigate or prosecute any alcohol or drug abuse patient.[facility] HospitalIn the event this information is protected by the Federal Confidentiality of Alcohol and Drug Abuse Patient Records regulations: The Federal rules restrict any use of the information to criminally investigate or prosecute any alcohol or drug abuse patient.[facility] Reason for Visit (unrecogniz ed section and content) Reason Comments Eval for Fecal Transplant C Diff since A pril- 3 rounds of antibiotics and nothing is helping Specialty Diagnoses / Procedures Referred By Contact Referred To Contact Gastroenterology / GASTROENTEROLOGY Diagnoses Evaluation of FMT (Fecal Transplant). Procedures NEW DDI PATIENT Amara Palacio, LEILA [address] [place] [address] Brooks Lamb MD [address] [place] [address] Referral ID Status Reason Start Date Expiration Date V isits Requested Visits Authorized [id number] Closed OON/Self Pay Override 03/19/2022 05/18/2022 1 1 Reason Comments Patient Update Reason Comments Follow Up Reason Comments Follow Up Specialty Diagnoses / Procedures Referred By Contac t Referred To Contact Neurology / NEUROMUSCULAR Diagnoses TMJ follow up, back/neck pain Procedures EST NI PATIENT Teresa Patel, FINANCIAL INSTITUTION PRESIDENT [address] [place] [address] Tristan Guallpa MD [address] [place] [address] Referral ID Status Reason Start Date Expiration Date V isits Requested Visits Authorized [id number] Outside PCP 03/05/2023 05/04/2023 1 1 Reason Comments New Patient Specialty Diagnoses / Procedures Referred By Contac t Referred To Contact Neurosurgery Diagnoses Chiari malformation type I (HCC) Procedures CONSULT TO NEUROSURGERY OFFICE/OUTPATIENT NEW HIGH MDM 60-74 MINUTES Tristan Guallpa MD [address] [place] [address] Referral ID Status Reason Start Date Expiration Date V isits Requested Visits Authorized [id number] Closed PCP Requested Referral 03/05/2023 03/04/2024 1 1 Reason Comments Patient Update Patient Question Orders Reason Comments Multiple Concerns Cardiology referral extensive health history would like care moved to [facility] Specialty Diagnoses / Procedures Referred By Contac t Referred To Contact Diagnoses Evaluation Procedures VIRTUAL VISIT MNT, GILBERTO CADE EA. 15 MIN INCREMENT [id number] Maurice León MD [address] [facility] [address] [place] [address] [place] [address] Referral ID Status Reason Start Date Expiration Date V isits Requested Visits Authorized [id number] New Request 04/05/2023 07/04/2023 99 99 Reason Comments [facility] Medical Record Req uest Reason Comments [facility] TRANSITION NURSE Medical Records Requ est Reason Comments [facility] Inpatient/Outpatient M edical Record Reque Reason Comments [facility] Medical Records R equest Reason Comments Establish Care Patient has no sarika rns, will like to establish care with a PCP Specialty Diagnoses / Procedures Referred By Contac t Referred To Contact Diagnoses Establish care with PCP Procedures Establish Care with PCP Maurice León MD [address] [place] [address] [facility] [address] Referral ID Status Reason Start Date Expiration Date V isits Requested Visits Authorized [id number] New Request 04/09/2023 07/08/2023 99 99 Reason Comments Received Outside Medical Records Records received Reason Comments Radiology MRI Reason Onset Date Comments SDOH 04/16/2023 Reason Comments Forms Reason Comments Patient Question Reason Comments Orders OT recertification n ote Reason Comments Neck Pain Specialty Diagnoses / Procedures Referred By Contac t Referred To Contact Neurosurgery / SPINE Diagnoses 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] Procedures NEW MEDICAL Reuben Agrawal PA-C [address] [place] [address] Huy Ascencio, HIMANSHU.FINANCIAL INSTITUTION PRESIDENT [address] [place] [address] Referral ID Status Reason Start Date Expiration Date V isits Requested Visits Authorized [id number] Pending Review 06/18/2023 08/17/2023 1 1 Reason Comments New Patient Neck pain Reason Comments Follow Up Neck and arm pain Reason Comments Patient Update Patient Question Reason Comments Appointment Reason Comments [facility]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 This clinical summary was aggregated from multiple sources. Caution should be exercised in using it in the provision of clinical care. This summary normalizes information from multiple sources, and as a consequence, information in this document may materially change the coding, format and clinical context of patient data. In addition, data may be omitted in some cases. CLINICAL DECISIONS SHOULD BE BASED ON THE PRIMARY CLINICAL RECORDS. [facility]. provides no warranty or guarantee of the accuracy or completeness of information in this document.
== END 2023-12-15 07:03 | disposition home or self-care (01) ==
LOC: US 07:02
PROVIDERS: Visit Provider Obstetrics & Gynecology
DX: N92.0 Excessive and frequent menstruation with regular cycle (principal)
CPT/HCPCS: 76830; 76856

== ENCOUNTER 2024-02-09 12:23 | Outpatient (REF) | payer OTHER, SELFPAY | END 2024-02-09 12:24 | disposition home or self-care (01) | LOC: LAB 12:23 | PROVIDERS: Visit Provider Obstetrics & Gynecology | DX: N92.0 Excessive and frequent menstruation with regular cycle (principal) | CPT/HCPCS: 88305 ==

== ENCOUNTER 2024-02-11 08:03 | Outpatient (OUT) | payer OTHER, SELFPAY ==
--- NOTE | 2024-02-11 08:38 | XR_ITS ---
[address] [address] Patient Name: LADI YUN MRN: [id number] date: 1985 Sex: F Assigned Patient Location: [facility] Current Patient Location: Accession/Order Number: [id number] Exam Date: 02/11/2024 09:05 Report Date: 02/12/2024 10:13 At the request of: STEVENSON JAEGER Procedure: XR chest 2V EXAMINATION: XR chest 2V, 02/11/2024 9:05 AM EDT HISTORY: Preop exam COMPARISON: None. TECHNIQUE: Chest x-ray: Two views. FINDINGS: No focal consolidations or pleural effusions. Cardiomediastinal silhouette is unremarkable. Visualized osseous structures are unremarkable. Lower cervical spine anterior fusion. XR/XR chest 2V IMPRESSION: No acute disease. Electronically authenticated by: ALENA GUPTA Date: 02/12/2024 10:13
--- NOTE | 2024-02-11 08:38 | ECG_ITS ---
The [facility] Test Date: 2024-02-11 Pat Name: LADI YUN Department: Room: - Gender: Female Combination Presser: : 1985 Requested By: STEVENSON JAEGER Order Number: [id number] Reading MD: BEATA REEVES Measurements Intervals [place] Rate: 96 P: -1 SD: 124 QRS: 257 QRSD: 148 T: 18 QT: 439 QTc: 555 Interpretive Statements SINUS RHYTHM MARKED RIGHT AXIS DEVIATION [QRS AXIS > 100] RIGHT BUNDLE BRANCH BLOCK [120+ ms QRS DURATION, UPRIGHT V1, 40+ ms S IN I/aVL/V4/V5/V6] Compared to ECG 12/29/2021 07:56:18 Electronically Signed On 02-11-2024 18:31:47 EDT by BEATA REEVES
== END 2024-02-11 08:04 | disposition home or self-care (01) ==
LOC: PST 08:03
PROVIDERS: Visit Provider Obstetrics & Gynecology
DX: Z01.810 Encounter for preprocedural cardiovascular examination (principal); Z30.2 Encounter for sterilization; R10.2 Pelvic and perineal pain; N92.0 Excessive and frequent menstruation with regular cycle; N93.9 Abnormal uterine and vaginal bleeding, unspecified
CPT/HCPCS: 71046; 93005

== ENCOUNTER 2024-02-11 08:55 | Outpatient (OUT) | payer OTHER, SELFPAY ==
--- NOTE | 2024-02-11 09:01 | XR_ITS ---
The [address] [address] Patient Name: LADI YUN MRN: [id number] date: 1985 Sex: F Assigned Patient Location: [facility] Current Patient Location: [facility] Accession/Order Number: [id number] Exam Date: 02/11/2024 09:05 Report Date: 02/15/2024 06:18 At the request of: NON-STAFF PHYSICIAN Procedure: XR cervical spine 2-3V EXAMINATION: XR cervical spine 2-3V HISTORY: Stenosis Of Cervical Spine With Myelopathy COMPARISON: XR C-spine 01/20/2023 FINDINGS: BONES: Plate and screws along the anterior margin of C6-C7 with plate from the anterior margin of the vertebral bodies 4.4 mm. Straightening of normal lordotic curvature of cervical spine. No fracture or significant listhesis. No significant facet arthropathy. DISC SPACES: Intervertebral disc spacer at C6-C7. PARASPINOUS: Negative. No paraspinous abnormality is seen. OTHER: Negative. XR/XR cervical spine 2-3V IMPRESSION: 1. Interval disc spacer placement and anterior mechanical fusion C6-C7. Please see details above and correlate with desired surgical findings. Electronically authenticated by: JACKY FRITZ Date: 02/15/2024 06:18
== END 2024-02-11 08:56 | disposition home or self-care (01) ==
LOC: RAD 08:57
DX: Z01.810 Encounter for preprocedural cardiovascular examination (principal); R10.2 Pelvic and perineal pain; N92.0 Excessive and frequent menstruation with regular cycle; N93.9 Abnormal uterine and vaginal bleeding, unspecified; M48.02 Spinal stenosis, cervical region; G99.2 Myelopathy in diseases classified elsewhere
CPT/HCPCS: 71046; 72040; 93005

== ENCOUNTER 2024-02-25 07:05 | Day surgery (SDC) | payer OTHER, SELFPAY ==
[2024-02-11 08:41] VITALS: BP 110/78; PULSE 103; TEMP 36.2; O2SAT 97; BMI 32.9
[2024-02-25] VITALS (12 sets, daily range): BP systolic 121–159; BP diastolic 81–106; PULSE 65–93; TEMP 36.1–36.3; O2SAT 93–100; BMI 34.0
--- OUTSIDE RECORDS SUMMARY | 2024-02-25 07:10 | XMS_ITS | CCD ---
Author Organization [facility] CliniSyva Care Team Providers Care Coagulating Bath Mixer Name Role Phone MIRIAM CAVAZOS Primary Care Unavailable PROVIDER, UNKNOWN Admitting Unavailable GENARO CASTELLANOS Attending Unavailable PATIENT, SELF Referring Unavailable TERESA PATEL Primary Care Physician [phone] Teresa Patel CNP Primary Care Provider [phone] Amara Palacio CNP Unavailable TERESA PATEL Admitting Unavailable TERESA PATEL Attending Unavailable RADHA, DR MONCADA Primary Care Unavailable TERESA PATEL Consulting Unavailable DWIGHT, TERESA Admitting Unavailable TERESA PATEL Attending Unavailable RADHA, DR MONCADA Primary Care Unavailable WEST, DR CAMEJO Consulting Unavailable TERESA PATEL Consulting Unavailable MISC, DR ZIMMERMAN Admitting Unavailable MISC, DR ZIMMERMAN Attending Unavailable TERESA PATEL Primary Care Unavailable MISC, DR ZIMMERMAN Consulting Unavailable RADHA, DR MONCADA Primary Care Unavailable LOREE MARTEL Admitting Unavailable LOREE MARTEL Attending Unavailable TAHMINA, LOREE Consulting Unavailable RADHA, DR MONCADA Primary Care Unavailable PAY, DR PADILLA Admitting Unavailable PAY, DR PADILLA Attending Unavailable WEST, DR CAMEJO Consulting Unavailable PAY, DR PADILLA Consulting Unavailable RADHA, DR MONCADA Primary Care Unavailable ZULEYMA MARTELID Admitting Unavailable LOREE MARTEL Attending Unavailable WEST, DR CAMEJO Consulting Unavailable LOREE MARTEL Consulting Unavailable DWIGHT, TERESA Admitting Unavailable DWIGHT, TERESA Attending Unavailable RADHA, DR MONCADA Primary Care Unavailable DWIGHT, TERESA Admitting Unavailable TERESA PATEL Attending Unavailable RADHA, DR MONCADA Primary Care Unavailable DWIGHT, TERESA Admitting Unavailable DWIGHT, TERESA Attending Unavailable TERESA PATEL Primary Care Unavailable DWIGHT TERESA Consulting Unavailable Miriam Cavazos Primary Care Provider Teresa Patel CNP Primary Care Provider Pia GANG DRILL OPERATOR, Amara Unavailable [phone] Miriam Cavazos Primary Care Unavailable KYLEE VALENCIA Attending Unavailable Mizanin PA-C, Reuben L Primary Care Provider Bonifacio INSPECTOR OF DREDGING, Nitza Unavailable Unavailable Dwight DEE, Teresa S Primary Care Provider Bonifacio INSPECTOR OF DREDGING, Nitza Unavailable Unavailable Elizabeth Piedra Unavailable PROVIDER, UNKNOWN Referring Unavailable MIZANIN, REUBEN L Primary Care Unavailable Mizanin PA-C, Reuben L Primary Care Provider Mikal Garcia Attending Unavailable Silas Durant Attending Unavailable Amara Palacio Attending Unavailable Jimmie Barkley Admitting Unavailable Jimmie Barkley Attending Unavailable Jimmie Barkley Referring Unavailable Erika Flores Attending Unavailable Erika Flores Admitting Unavailable MIZANIN, REUBEN L Primary Care Unavailable ZORAIDA VALLE Referring Unavailable MIZANIN, REUBEN L Primary Care Unavailable HUY ASCENCIO Attending Unavailable MIZANIN, REUBEN L Primary Care Unavailable HUY ASCENCIO Referring Unavailable MIZANIN, REUBEN L Primary Care Unavailable MIZANIN, REUBEN L Referring Unavailable MIZANIN, REUBEN L Primary Care Unavailable BUTT, BILAL MISTY Referring Unavailable MIZANIN, REUBEN L Primary Care Unavailable HAZARIKA, SUROVI Referring Unavailable CHANTAL HUMPHREY Attending Unavailable TERESA PATEL S Primary Care Unavailable TRISTAN GUALLPA Referring Unavailabl e TRISTAN GUALLPA Attending Unavailabl e MIZANIN, REUBEN L Primary Care Unavailable ZORAIDA VALLE Referring Unavailable ZORAIDA VALLE Attending Unavailable MIZANIN, REUBEN L Primary Care Unavailable MIZANIN, REUBEN L Referring Unavailable HUY ASCENCIO Attending Unavailable MIZANIN, REUBEN L Primary Care Unavailable MAURICE LEÓN Referring Unavailable HAZARIKA, SUROVI Attending Unavailable MIZANIN, REUBEN L Primary Care Unavailable MIZANIN, REUBEN L Primary Care Unavailable MIZANIN, REUBEN L Referring Unavailable TRISTAN GUALLPA Attending Unavailabl e MIZANIN, REUBEN L Primary Care Unavailable BUTT, BILAL MISTY Referring Unavailable MIZANIN, REUBEN L Primary Care Unavailable BUTT, BILAL MISTY Referring Unavailable MIZANIN, REUBEN L Primary Care Unavailable NAYANA MCLEAN Referring Unavailable DWIGHT, TERESA S Primary Care Unavailable DWIGHT, TERESA S Referring Unavailable TRISTAN GUALLPA Attending Unavailabl e DWIGHT, TERESA S Primary Care Unavailable TRISTAN GUALLPA Referring Unavailabl ZORAIDA Bustos Attending Unavailable DWIGHT, TERESA S Primary Care Unavailable ROMELIAMAURICE Referring Unavailable ROMELIAMAURICE Attending Unavailable MIZANIN, REUBEN L Primary Care Unavailable MIZANIN, REUBEN L Attending Unavailable DWIGHT, TERESA S Primary Care Unavailable ROMELIA, MAURICE N Referring Unavailable MIZANIN, REUBEN L Attending Unavailable BUTT, BILAL MISTY Referring Unavailable BUTT, BILAL MISTY Attending Unavailable MIZANIN, REUBEN L Primary Care Unavailable BUTT, BILAL MISTY Referring Unavailable MIZANIN, REUBEN L Primary Care Unavailable BUTT, BILAL MISTY Referring Unavailable BUTT, BILAL MISTY Attending Unavailable MIZANIN, REUBEN L Primary Care Unavailable NAPOLEON BISHOP Consulting Unavailabl e BUTT, BILAL MISTY Admitting Unavailable MIZANIN, REUBEN L Primary Care Unavailable BUTT, BILAL MISTY Attending Unavailable HUY ASCENCIO Referring Unavailable MIZANIN, REUBEN L Primary Care Unavailable BUTT, BILAL MISTY Attending Unavailable BUTT, BILAL MISTY Referring Unavailable MIZANIN, REUBEN L Primary Care Unavailable BUTT, BILAL MISTY Attending Unavailable DO Solomon Sorensen Attending Provider [phone] BROOK PIERSON Attending Unavailable SOLOMON SORENSEN Attending Unavailable SOLOMON SORENSEN Attending Unavailable Solomon Sorensen Attending Unavailable Solomon Sorensen Admitting Unavailable Allergies Allergy Classification Reported Allergen(s) Allergy Type Date of Onset Reaction(s) Facility cariprazine (2 sources) cariprazine Drug Allergy 2 Other: See Comments, Unknown [facility] DOPamine Antagonists (4 sources) Metoclopramide Drug Allergy 0 Other: See Comments, Mental Status Change [facility] Penicillins (antibiotic) (2 sources) Penicillins Drug Allergy 9 Hives [facility] (20 sources) Metoclopramide; Translations: [METOCLOPRAMIDE] Drug Allergy 0 Other: See Comments, rash [facility] Rep[facility] (20 sources) Amoxicillin; Translations: [amoxicillin] Drug Allergy 3 Unknown (qualifier value), [facility] (20 sources) Amoxicillin / Clavulanate; Translations: [amoxicillin-clavu lanate] Drug Allergy [facility] (20 sources) cariprazine; Translations: [cariprazine] Drug Allergy 2 [facility] (20 sources) cariprazine; Translations: [CARIPRAZINE] Drug Allergy 2 Other: See Comments, Unknown [facility] (20 sources) Metoclopramide; Translations: [METOCLOPRAMIDE HCL] Drug Allergy 0 Mental Status Change [facility] Work Phone: (20 sources) Penicillins; Translations: [PENICILLINS] Drug Allergy 9 [facility] (20 sources) Iothalamic Acid; Translations: [IOTHALAMIC ACID] Drug Allergy 4 Other: See Comments [facility] (5 sources) Iothalamate; Translations: [iothalamate] Drug Allergy 4 Unknown [facility] Repository (2 sources) Penicillin Drug Allergy [facility] Repository (2 sources) Iothalamate; Translations: [iothalamate] Drug Allergy 4 [facility] Repository (1 source) Amoxicillin Drug Allergy 4 [facility] Repository (1 source) cariprazine Drug Allergy 4 [facility] Repository Medications Current Medications Medication Drug Class(es) Dates Sig (Normalized) Sig (Original) acetaminophen 325 mg / HYDROcodone bitartrate 5 mg oral tablet (4 sources) Opioid Agonist Start: 01-12-2022 Bevier 325 mg-5 mg oral tablet 1 tab(s), Oral, q6hr as needed for pain, 7 tab(s), Refill(s) 0, [id number], 152, cm, 01/12/22 9:47:00 EDT, Height/Length Dosing, 68, kg, 01/12/22 9:47:00 EDT, Weight Dosing Start Date: 01/12/22 Status: Ordered [id number] 200 actuat albuterol 0.09 mg/actuat metered dose [...] on above: Take 1 capsule by mo [facility] once daily. TAKE 1 CAPSULE BY [facility] EVERY DAY cetirizine hydrochloride 10 mg oral tablet (20 sources) Histamine-1 Receptor Antagonist Start: 10-01-2023 take 1 tablet by mouth once daily at bedtime cetirizine (ZYRTEC) 10 mg tablet Take 1 tablet by mouth daily at bedtime. 90 tablet 1 10/01/2023 Active Start: 01-07-2022 take 1 tablet by layo once daily at bedtime cetirizine (ZYRTEC) 10 [...] at bedtime. Take 1 tablet by layo daily at bedtime. clonazePAM 1 mg oral [...] cramping, # 16 cap(s), Refills(s) 0, Pharmacy: [id number], 152, cm, 12/23/22 19:46:00 EDT, Height/Length Dosing, 58, kg, 12/23/22 19:46:00 EDT, Weight Dosing Start Date: 12/24/22 Status: Ordered Start: 11-14-2021 End: 08-05-2022 take 1 capsule by mouth four times daily Bentyl 10 mg Cap 10 mg = 1 cap(s), Oral, QID, X 7 day(s), # 28 cap(s), Refills(s) 0, Pharmacy: [id number], 152, cm, 07/29/22 2:29:00 EST, Height/Length [...] BID, # 20 tab(s), Refills(s) 0, Pharmacy: [facility]acy [facility][id number], 152, cm, 03/19/22 14:05:00 EDT, Height/Length [...] Daily, # 30 tab(s), Refills(s) 0, Pharmacy: [facility]acy [facility][id number], 152.4, cm, 11/06/22 14:36:00 EDT, Height/Length [...] capsule 0 10/22/2023 Active Start: 07-19-2023 End: 04-03-2024 take 2 capsules by mouth twice daily gabapentin (NEURONTIN) 100 mg capsule Take 2 capsules by mouth two times a day for 90 days. 120 capsule 2 01/04/2024 04/03/2024 Active Start: 03-26-2023 End: 06-24-2023 take 2 [...] on above: Take 1 tablet by layo every 8 hours as needed. lamoTRIgine (1 source) Mood Stabilizer, Anti-epileptic Agent End: 03-19-20 lamotrigine (LAMICTAL ORAL) Take by mouth. 0 03/19/2022 Discontinued Comment on above: Take by mouth. lisdexamfetamine dimesylate 20 mg oral capsule (20 sources) Central Nervous System Stimulant Start: 12-04-19 End: 04-09-20 VYVANSE 30 mg capsule Start: 07-29-2022 take 1 capsule by mo [facility] once daily VYVANSE 20 mg capsule Take 20 mg by mouth once daily. 0 03/24/2023 Active Comment on above: TAKE 1 CAPSULE BY [facility] EVERY DAY IN THE MORNING FOR 30 [...] day(s), # 5 tab(s), Refills(s) 0, Pharmacy: [id number], 152, cm, 01/12/22 9:47:00 EDT, Height/Length [...] follow instructions per packaging and physician's handout, [id number], 152, cm, 07/30/22 12:41:00 EST, Height/Length Dosing, 65, kg, 07/30/22 12:41:00 EST, Weight Dosing Start Date: 07/30/22 Status: Ordered melatonin 3 mg oral tablet (20 sources) Start: 11-08-19 take 1 tablet by mouth at bedtime as needed for sleep melatonin 3 mg Tab 3 mg = 1 tab(s), Oral, Bedtime, PRN Sleep, # 30 tab(s), Refills(s) 0, [id number] 152.4, cm, 11/06/22 14:36:00 EDT, Height/Length Dosing, 59.5, kg, 11/06/22 14:36:00 EDT, Weight Dosing Start Date: 11/07/22 Status: Ordered Comment on above: Take 3 mg by mouth. metoprolol tartrate 25 mg oral tablet (20 sources) beta-Adrenergic Jaenna Start: 02-03-20 take 1 mg by mouth [...] patch(es), TransDermal, Daily, 30 EA, Refill(s) 0, [id number], 152.4, cm, 10/09/21 9:00:00 EDT, Height/Length Dosing, 78, kg, 10/09/21 9:00:00 EDT, Weight Dosing Start Date: 10/12/21 Status: Ordered OLANZapine 5 mg oral tablet (17 sources) Atypical Antipsychotic Start: 09-09-19 take 3 tablets by mouth once daily OLANZapine (ZYPREXA) 5 mg tablet Take 15 mg by mouth once daily. 0 09/09/2023 Active Start: 09-09-2023 take 1 tablet by layo th once daily OLANZapine (ZYPREXA) 5 mg tablet Take 5 mg by mouth once daily. 0 09/09/2023 Active Comment on above: Take 5 mg by mouth o nce daily. omeprazole 40 mg delayed release oral capsule (12 sources) Proton Pump Inhibitor Start: End: 3 take 1 capsule by mouth [...] Nausea/Vomiting, # 12 tab(s), Refills(s) 0, Pharmacy: [id number], 152, cm, 10/13/21 23:36:00 EDT, Height/Length Dosing, 71.7, kg, 10/13/21 23:36:00 EDT, Weight Dosing Start Date: 10/14/21 Status: Ordered Start: 10-12-2021 take 1 tablet by layo th every eight hours as needed for nausea Zofran 4 mg Tab 4 mg = 1 tab(s), Oral, q8hr, PRN Nausea/Vomiting, # 12 tab(s), Refills(s) 0, Pharmacy: [facility]/pharmacy #[id number], 152.4, cm, 10/09/21 9:00:00 EDT, Height/Length [...] tablet (20 sources) Proton Pump Inhibitor Start: 01-25-202 3 take 1 tablet by mouth once pantoprazole DR (PROTONIX) 40 mg tablet Take 1 tablet by mouth every afternoon. 0 03/20/2023 Active Start: 10-12-2021 take 1 tablet by layo th twice daily Protonix 40 mg Tab-EC 40 mg = 1 tab(s), Oral, BID, # 60 tab(s), Refills(s) 0, [id number] 152.4, cm, 10/09/21 9:00:00 EDT, Height/Length Dosing, 78, kg, 10/09/21 9:00:00 EDT, Weight Dosing Start Date: 10/12/21 Status: Ordered Comment on above: Take 1 tablet by layo th every afternoon. promethazine hydrochloride 25 mg rectal suppository (20 sources) Phenothiazine Start: End: 3 take 25 mg rectal route every six hours as needed for nausea Phenergan 25 mg Supp 25 mg = 1 supp, Rectal, q6hr, PRN Nausea/Vomiting, # 6 EA, Refills(s) 0, [id number] 152, cm, 12/23/22 19:46:00 EDT, Height/Length Dosing, 58, kg, 12/23/22 19:46:00 EDT, Weight Dosing Start Date: 12/24/22 Status: Ordered Start: 10-20-2022 take 1 tablet by layo th every six hours as needed for nausea promethazine 25 mg Tab 25 mg = 1 tab(s), Oral, q6hr, PRN as needed for nausea/vomiting, # 16 tab(s), Refills(s) 0, [id number] 152.4, cm, 10/20/22 0:45:00 EDT, [...] oral capsule (20 sources) beta-Adrenergic Jeanna Start: End: take 1 capsule by mouth once daily [...] if needed. Take 1 capsule by mo [facility] once daily. Protonix 40 mg Tab-EC (3 sources) Start: 022 take 1 tablet by mouth twice daily Protonix 40 mg Tab-EC 40 mg = 1 tab(s), Oral, BID, # 60 tab(s), Refills(s) 0, Pharmacy: [facility]/pharmacy #[id number], 152.4, cm, 10/09/21 9:00:00 EDT, Height/Length [...] above: Take 1 tablet by layo once daily. psyllium 525 mg oral capsule (6 sources) Start: 10-22-2022 End: 01-20-2023 take 2 capsules by mouth once daily Metamucil 525 mg oral capsule 1,050 mg = 2 cap(s), Oral, Daily, X 90 day(s), # 180 cap(s), Refills(s) 0, Pharmacy: [facility]/pharmacy #[id number], 152.4, cm, 10/22/22 10:27:00 EDT, Height/Length [...] day(s), # 56 tab(s), Refills(s) 0, Pharmacy: [facility]/pharmacy #[id number], 152.4, cm, 10/20/22 0:45:00 EDT, Height/Length Dosing, 61.2, kg, 10/20/22 0:45:00 EDT, Weight Dosing Start Date: 10/20/22 Stop Date: 11/03/22 Status: Ordered Start: 07-29-2022 End: 08-12-2022 take 1 tablet by mouth four times daily Carafate 1 gram Tab 1 gm = 1 tab(s), Oral, QID, X 14 day(s), # 56 tab(s), Refills(s) 0, [id number] 152, cm, 07/29/22 2:29:00 EST, Height/Length Dosing, 64, kg, 07/29/22 2:29:00 EST, Weight Dosing Start Date: 07/29/22 Stop Date: 08/12/22 Status: Ordered Start: 10-14-2021 take 1 tablet by layo th four times daily Carafate 1 gram Tab 1 gm = 1 tab(s), Oral, QID, # 240 tab(s), Refills(s) 0, Pharmacy: [facility]acy [id number], 152, cm, 10/13/21 23:36:00 EDT, Height/Length Dosing, 71.7, kg, 10/13/21 23:36:00 EDT, Weight Dosing Start Date: 10/14/21 Status: Ordered Start: 10-14-2021 take 1 tablet by layo four times daily Carafate 1 gram Tab 1 gm = 1 tab(s), Oral, QID, # 240 tab(s), Refills(s) 0, [id number] 152, cm, 10/13/21 23:36:00 EDT, Height/Length Dosing, 71.7, kg, 10/13/21 23:36:00 EDT, Weight Dosing Start Date: 10/14/21 Status: Ordered Start: 10-12-2021 take 2 tablets by mo [facility] four times daily Carafate 1 gram Tab 2 gm = 2 tab(s), Oral, QID, # 240 tab(s), Refills(s) 0, [id number] 152.4, cm, 10/09/21 9:00:00 EDT, [...] 1 HOUR tiZANidine 4 mg oral tablet (14 sources) Central alpha-2 Adrenergic Agonist Start: End: take 1 tablet by mouth every six hours as needed tiZANidine (ZANAFLEX) 4 mg tablet Take 1 tablet by mouth every 6 hours as needed. 360 tablet 1 09/30/2023 12/29/2023 Active Comment on above: Take 1 tablet by layo every 6 hours as needed. traZODone hydrochloride 100 mg oral tablet (1 source) Serotonin Reuptake Inhibitor Start: 020 take 1 tablet by mouth once daily at bedtime traZODONE 100 mg Tab 100 mg = 1 tab(s), Oral, Once a day (at bedtime), # 30 tab(s), Refills(s) 5, Pharmacy: [id number], 160, cm, 03/20/20 16:08:00 EDT, Height/Length [...] 10:07:00 EDT, Route to Pharmacy Electronically, Pharmacy: [facility]/pharmacy #[id number], 152.4, cm, 10/09/21 9:00:00 EDT, Height/Length [...] on above: Take 1,000 mcg by mo [facility] once daily. Take 1 tablet by layo every afternoon. Vitamin B12 1000 mcg Tab (3 sources) Start: 11-07-2022 take 1 tablet by mouth once daily Vitamin B12 1000 mcg Tab 1,000 mcg = 1 tab(s), Oral, Daily, # 30 tab(s), Refills(s) 0, Pharmacy: [facility]/pharmacy #[id number], 152.4, cm, 11/06/22 14:36:00 EDT, Height/Length [...] Discontinued Start: 05-05-2016 take 1 capsule by [facility] twice daily docusate sodium (COLACE) 100 MG capsule Take 1 Capsule by mouth 2 times daily. 60 Capsule 3 05/05/2016 Active Comment on above: Take 1 capsule by [facility] two times a day. etonogestrel 68 mg [...] day with meals. [facility]. Nexplanon 68 [...] diarrhea, # 30 tab(s), Refills(s) 0, Pharmacy: [facility]/pharmacy [id number], 152, cm, 11/13/21 12:21:00 EDT, Height/Length [...] [Other acute postprocedural pain] 09-27-2023 Episodic Other nutritional; endocrine; and metabolic disorders [...] 2 Episodic Other aftercare (1 source) Other moth exterminator (current) drug therapy; Translations: [OTH SLIP OPERATOR CURRENT DRUG THERAPY] Onset: 2 Episodic Other connective tissue disease (20 sources) History of cervical spine fusion; Translations: [Arthrodesis status] Onset: 4 08-24-2023 Episodic Other gastrointestinal disorders (4 sources) Diarrhea, unspecified; Translations: [DIARRHEA UNSPECIFIED] Onset: 2 Episodic Other nervous system disorders (3 sources) Paresthesia of skin; Translations: [PARESTHESIA OF SKIN] Onset: 2 Episodic Other nervous system disorders (1 source) Other acute postprocedural pain; Translations: [Postoperative pain] Onset: 4 Episodic Other screening for suspected conditions (not [...] Test Name Value Interpretation Reference Range Facility Pathology Request for Lab Co rpon 02-09-2024 Pathology Request for Lab [facility] Normal [facility] Comment on above: Order Comment: PATHO LOGY STEEP TENDER SPECIMEN Result Comment: See report. Scanned copy available in EMR. PERFORMED BY: [place] [id number] PATHOLOGIST [facility] [employer] [facility]EVERMAN ABHAY SOLOMON M.D. Performed By: #### P ATH TO [facility] #### [address] [place] [facility] LADI BYERS ([id number]) 1985 Date Time Provider Department 01/24/24 JOO CRUZ [facility] During your visit today, we recorded the following information about you: Joo Cruz MD 01/24/2024 10:49 AM Signed Call placed to the patient as she is now 6 months postop. Reports significant improvement in preoperative status no issues swallowing no issues with her incision. She has participated in formal physical therapy for her upper back spasms with significant relief she has no complaints at this time. She reports that she is pleased she underwent the surgery. She will obtain upright x-rays and return to see me after. All questions were answered she was thankful for the encounter on the phone call. Joo Cruz MD Spine Surgery. Allergies As of Date: 01/24/2024 Noted Allergy Reaction CARIPRAZINE 12/29/2021 14 - Other: See Comments 16 - Unknown IOTHALAMIC ACID 08/10/2013 14 - Other: See Comments METOCLOPRAMIDE 08/10/2013 14 - Other: See Comments PENICILLINS 12/18/2018 4 - Hives REGLAN (METOCLOPRAMIDE HCL) 12/30/2009 1 - Mental Status Change Date Reviewed: 11/30/2023 Reviewed by: Michell Mcconnell APRN.GANG DRILL OPERATOR - Fully Assessed Prescriptions as of 01/26/2024 - gabapentin (NEURONTIN) 100 mg capsule Take 2 capsules by mouth two times a day for 90 days. - celecoxib (CELEBREX) 200 mg capsule take 1 capsule by mouth every day - propranolol ER (INDERAL LA) 80 mg 24 hr capsule take 1 capsule by mouth every day - gabapentin (NEURONTIN) 100 mg capsule Take 2 capsules by mouth every 12 hours for 30 days. - cetirizine (ZYRTEC) 10 mg tablet Take 1 tablet by mouth daily at bedtime. - OLANZapine (ZYPREXA) 5 mg tablet Take 15 mg by mouth once daily. - cyanocobalamin (VITAMIN B-12) 1,000 mcg tab Take 1 tablet by mouth every afternoon. - BLISOVI 24 FE 1 mg-20 mcg (24)/75 mg (4) Take 1 tablet by mouth every afternoon. - albuterol HFA (PROVENTIL HFA) 90 mcg/actuation [...] 1 HOUR Problem List As Of Date 01/24/2024 Noted Resolved Migraine [346] 01/25/2003 04/09/2023 Migraines [...] 08/24/2023 S/P cervical spinal fusion [Z98.1] 08/24/2023 Level of Service: OFFICE/OUTPATIENT ESTABLISHED [facility] 10 MIN [[id number]] Encounter Status:Closed by JOO CRUZ on 01/24/24 [facility] 01-17-2024 CNPN Telephone (SPNSMN) ----- LADI BYERS ([id number]) 1985 F Date Time Provider Department 01/17/24 JOO CRUZ [facility]NS[facility] During your visit today, we recorded the following information about you: Ventura De Jesus, RN 01/17/2024 8:26 AM Signed Neuro SPINE CARE COORDINATION QUICK NOTE Call to the pt @ Dr. Cruz request Pt will have x rays done locally ( she will my chart the facility name and fax) Virtual apt with Dr. Cruz on 01-21-24 @ 4 20 pm Allergies As of Date: 01/17/2024 Noted Allergy Reaction CARIPRAZINE 12/29/2021 14 - Other: See Comments 16 - Unknown IOTHALAMIC ACID 08/10/2013 14 - Other: See Comments METOCLOPRAMIDE 08/10/2013 14 - Other: See Comments PENICILLINS 12/18/2018 4 - Hives REGLAN (METOCLOPRAMIDE HCL) 12/30/2009 1 - Mental Status Change Date Reviewed: 11/30/2023 Reviewed by: Michell Mcconnell APRN.GANG DRILL OPERATOR - Fully Assessed Prescriptions as of 01/17/2024 - gabapentin (NEURONTIN) 100 mg capsule Take 2 capsules by mouth two times a day for 90 days. - celecoxib (CELEBREX) 200 mg capsule take 1 capsule by mouth every day - propranolol ER (INDERAL LA) 80 mg 24 hr capsule take 1 capsule by mouth every day - gabapentin (NEURONTIN) 100 mg capsule Take 2 capsules by mouth every 12 hours for 30 days. - cetirizine (ZYRTEC) 10 mg tablet Take 1 tablet by mouth daily at bedtime. - OLANZapine (ZYPREXA) 5 mg tablet Take 15 mg by mouth once daily. - cyanocobalamin (VITAMIN B-12) 1,000 mcg tab Take 1 tablet by mouth every afternoon. - BLISOVI 24 FE 1 mg-20 mcg (24)/75 mg (4) Take 1 tablet by mouth every afternoon. - albuterol HFA (PROVENTIL HFA) 90 mcg/actuation [...] 1 HOUR Problem List As Of Date 01/17/2024 Noted Resolved Migraine [346] 01/25/2003 04/09/2023 Migraines [...] spinal fusion [Z98.1] 08/24/2023 Encounter Status:Closed by VENTURA DE JESUS on 01/17/24 [facility] PAP [id number] 11-23-2023 Cytology report Cyto stain Doc (Cvx/Vag) Note Invalid Interpretation Code [facility] Comment on above: Result Comment: TEST S RESULT FLAG UNITS REF RANGE LAB Clinician Provided Cytology Information Source.............Cervix No. of containers..01 ThinPrep Vial DIAGNOSIS: 01 NEGATIVE FOR INTRAEPITHELIAL LESION OR MALIGNANCY. THIS SPECIMEN WAS RESCREENED PART OF OUR LINE REPAIRER TOWER PROGRAM. Specimen adequacy: 01 Satisfactory for evaluation. Endocervical and/or squamous metaplastic cells (endocervical component) are present. Performed by: 01 Shayna Mckeon, Threshing Department Supervisor (ASCP) QC reviewed by: Hayden Baig Threshing Department Supervisor . 01 Note: Note 01 The Pap [...] <-Panic Low,>-Panic High,A-Abnormal,AA-Critical Abnormal Performed at: [address] [address] Delicia Mcintosh MD, Performed By: #### 3 [id number] #### [facility] Laboratory [address] [place] [address] HPV 16+18+31+33+35+39+45+5 1+52+56+58+59+66+68 DNA Probe+sig amp Ql (Cvx) Negative Invalid Interpretation Code Negative [facility] Comment on above: Result Comment: This nucleic acid amplification test detects fourteen high-risk HPV types (16,18,31,33,35,39,45,51,52,56,58,59,66,68) without differentiation. Performed at: [address] [id number] MD Arnaldo Nesbitt Performed at: =G [facility] [id number] MD Arnaldo Nesbitt Performed By: #### 3 [id number] #### [facility] Laboratory [address] [place] [address] PAP [id number] 11-16-2023 Collection Technique BRUSH-SPATULA Normal F [facility] Comment on above: Performed By: #### 3 [id number] #### [facility] [address] [place] [address] Gynecological Body Site CERVIX Normal [facility] Comment on above: Performed By: #### 3 [id number] #### [facility] [address] [place] [address] Previous Cytology Negative Normal [facility] Comment on above: Performed By: #### 3 [id number] #### [facility] [address] [place] [address] Previous Treatment NONE Normal [facility] Comment on above: Performed By: #### 3 [id number] #### [facility] [address] [place] [address] Physician Orderon 11-15-2023 Physician Order [id number] Normal [facility] ----- LADI BYERS ([id number]) 1985 F Date Time Provider Department 11/12/23 JOO CRUZ [facility] During your visit today, we recorded the following information about you: Marv Murillo RN 11/12/2023 1:40 PM Signed Incoming fax received at 1 E office and scanned into patient chart. Marv Murillo RN 11/15/2023 10:26 AM Signed Fax sent to [facility] regarding completed Physical Therapy Initial Examination. Marv [...] Encounter Status:Closed by MAR[facility] Office Visit ([facility] ) ----- ARIADNE BYERSANDA Rocio ([id number]) 1985 F Date Time Provider Department 11/01/23 4:00 PM JOO CRUZ [facility] During your visit today, we recorded the following information about you: Weight Height 70.4 kg 1.524 m Joo Cruz MD 11/01/2023 3:36 PM Signed SPINE SURGERY FOLLOW UP This is an in-person visit. SERVICE DATE: 11/01/2023 SURGERY DATE: ACDF C6/7 on (Date: 08/24/2023) Ladi L Dimitrikvng is seen for 10 week post operative [...] 3:21 PM PAGER: Referring Provider: JOO CRUZ [[id number]] Allergies As of Date: 11/01/2023 Noted Allergy [...] Order #: [id number] (more content not included)... [facility] XR CERVICAL 2V AP/LATon 04- XR CERVICAL 2V AP/LAT * * *Final [...] IMPRESSION: Status post C6-C7 anterior spinal fusion. Scaffold Erector: PSCB Transcribe Date/Time: Nov 02 2023 2:05P Dictated by : DIEGO AMIN MD This examination was interpreted and the report reviewed and electronically signed by: DIEGO AMIN MD on Nov 02 2023 2:08PM EST [id number] [facility] CNOVon 09-10-2023 CNOV Office Visit (SPSLUH ) ----- LADI BYERS ([id number]) 1985 F Date Time Provider Department 09/10/23 8:40 AM JOO CRUZ [facility] During your visit today, we recorded the [...] 9:38 AM PAGER: Referring Provider: JOO CRUZ [[id number]] Allergies As of Date: 09/10/2023 Noted Allergy [...] as needed fo (more content not included)... [facility] 09-09-[address] [facility] Telephone ([employer]) ----- LADI BYERS ([id number]) 1985 F Date Time Provider Department 09/09/23 [facility] your visit today, we recorded the following information about you: Lauren Hernandez MA 09/09/2023 9:36 AM Signed Fax came over for Occupational Therapy Re-certification Note from [facility]. Physician signed paperwork and was faxed back over to [place] with confirmation. Lauren Hernandez MA September 09, [...] - Fully Assessed Reason for Visit: [facility]- Occupational Therapy [Other] Cmt: Re-certification Note [...] Encounter Status:Closed by LAUREN HERNANDEZ on 09/09/23 [facility] Kyle 08-27-2023 [facility] Telephone ([facility]) ----- GADBERRY,LADI L ([id number]) 1985 F Date Time Provider Department 08/27[facility]23 [facility] your visit today, we recorded the following information about you: Marv Murillo RN 08/27/2023 9:14 AM Signed Incoming mail to 1 E office [employer]. Insurance document scanned into patient chart. Allergies [...] by: Jimena Jolley RN - Fully Assessed Prescriptions as of 08/27/2023 [...] Encounter Status:Closed by MARV MURILLO on 08/27/23 [facility] Kyle 08-26-[address] [facility] Telephone ([employer]) ----- DIMITRILADI GONZALES ([id number]) 1985 F Date Time Provider Department 08/26/23 [facility] During your visit today, we recorded the following information about you: Palak Holbrook, RN 08/26/2023 9:28 AM Signed CALL FOR ER FOLLOW UP: Ladi was seen for cervical spinal fusion at Date:08/24/2023 - 08/25/2023 (30 hours) [facility] How is patient doing now? Sore from [...] MAY REPEAT IN 1 HOUR Palak INTERIANO event marketing intern of Stephani Douglas PA-C [place] [id number] TEL FAX Allergies As of Date: 08/26/2023 [...] Palpitations [R00.2] more content not included)... Normal [facility] HEALTHon 08-25-2023 [facility] HNO ID: [id number] Author: YULY SUMMERS RT(Heidy) Service: Radiology Author Type: Technologist Type: Allied [...] PATIENT PRESENTS WITH AN IMPLANTABLE OR ATTACHED MANAGER BRANCH: No RADIOLOGY DEPARTMENT: General X-ray: Exam(s) Completed: Spine X-Ray(s): Cervical AP / LAT PERIPHERAL IV DATA: Not applicable SIGNED BY: RT Carlos Manuel(R) August 25, 2023 1:48 PM [facility] Basic metabolic 2000 panelon 08-25-2023 Anion gap [Moles/Vol] 10 mmol/L Normal 9-18 [facility] Comment on above: Order Comment: Jaelyni beth Type: BLOOD SPECIMENOrdering Facility: [facility] Address: [address] [place] [address] Performed By: #### 2 4321-2 ####[facility]ORATORYCLIA [id number] [place] [id number] [place] Calcium [Mass/Vol] 8.8 mg/dL Normal 8.5-10.2 [facility] Comment on above: Order Comment: Caryn campos Type: BLOOD SPECIMENOrdering Facility: [facility] Address: [address] [place] [address] Performed By: #### 2 4321-2 ####[facility] LABORATORYCLIA [id number] [place] [address] [place] Chloride [Moles/Vol] 107 mmol/L High 97-105 [facility] Comment on above: Order Comment: Caryn campos Type: BLOOD SPECIMENOrdering Facility: [facility] Address: [address] [place] [address] Performed By: #### 2 4321-2 ####[facility] LABORATORYCLIA [id number] [place] [address] [place] CO2 [Moles/Vol] 23 mmol/L Normal 22-30 [facility] Comment on above: Order Comment: Speci men Type: BLOOD SPECIMENOrdering Facility: [facility] Address: [address] [place] [address] Performed By: #### 2 4321-2 ####[facility] LABORATORYCLIA [id number] [place] [address] [place] Creatinine [Mass/Vol] 0.73 mg/dL Normal 0.58-0.96 [facility] Comment on above: Order Comment: Speci men Type: BLOOD SPECIMENOrdering Facility: [facility] Address: [address] [place] [address] Performed By: #### 2 4321-2 ####[facility] LABORATORYCLIA [id number] [address] Creatinine and Glomerular filtration rate.predicted panel (S/P/Bld) 108 mL/min/1.73m??? Normal >=60 [facility] Comment on above: Order Comment: Speci men Type: BLOOD SPECIMENOrdering Facility: [facility] Address: [address] [place] [address] Result Comment: Ludivina mated Glomerular Filtration Rate [...] actual GFR. Performed By: #### 2 4321-2 ####[facility] LABORATORYCLIA [id number] [place] [address] [place] Glucose [Mass/Vol] 103 mg/dL High 74-99 [facility] Comment on above: Order Comment: Speci men Type: BLOOD SPECIMENOrdering Facility: [facility] Address: [address] [place] [address] Result Comment: The [place] [employer] (ADA) provides guidance for cutoff [...] Standards of Medical Care in Diabetes 2016, [place] [employer]. Diabetes Care. 2016.39(Suppl 1). Performed By: #### 2 4321-2 ####[facility] LABORATORYCLIA [id number] [place] [address] [place] Potassium [Moles/Vol] 4.5 mmol/L Normal 3.7-5.1 [facility] Comment on above: Order Comment: Specemily men Type: BLOOD SPECIMENOrdering Facility: [facility] Address: [address] [place] [address] Performed By: #### 2 4321-2 ####[facility] LABORATORYCLIA [id number] [place] [address] [place] Sodium [Moles/Vol] 140 mmol/L Normal 136-144 [facility] Comment on above: Order Comment: Caryn campos Type: BLOOD SPECIMENOrdering Facility: [facility] Address: [address] [place] [address] Performed By: #### 2 4321-2 ####[facility] LABORATORYCLIA [id number] [place] [address] [place] Urea nitrogen [Mass/Vol] 6 mg/dL Low 7-21 [facility] Comment on above: Order Comment: Jaelyni men Type: BLOOD SPECIMENOrdering Facility: [facility] Address: [address] [place] [address] Performed By: #### 2 4321-2 ####[facility] LABORATORYCLIA [id number] [place] [address] [place] LANNY MGT INDARIEN Donnelly 2023 CASE MGT INIT RAYO HNO ID: [id number] Author: JUANJOSE CHAN LISW Service: ? Author Type: Vice Principal Type: Care Mgt Initial Assessment Filed: 08/25/2023 10:14 Note Text: CARE MANAGEMENT: ASSESSMENT AND DISCHARGE PLAN SERVICE DATE: August 25, 2023 SERVICE TIME: 10:12 PCP: Reuben Agrawal PA-C Primary Contact: Extended Emergency Contact Information Primary Emergency Contact: Jameson Byers Address: [address] [place] [address], [place] [address] [facility] Mobile Relation: Son Secondary Emergency Contact: Dari Byers Mobile Relation: Mother Admission Status: Inpatient Insurance Provider: [employer] Discharge Planning requested by: Per Department Practice Potential Transition Plans Home Advance Directives Current Advance Directive: None Leadership Development Manager Attempted to Assist with AD Completion: Yes [...] Planning Patient Goal(s): Less pain, General wellness [place] of Choice Explained: [place] of [place] Given: No Reason Not Given: [...] 25, 2023 TIME: 10:12 AM CONTACT #: [phone] [facility] CBC panel Auto (Bld)on 08-25 Erythrocyte distribution width (RBC) [Ratio] 16.1 % High 11.5-15.0 [facility] Comment on above: Order Comment: Speci men Type: BLOOD SPECIMEN Ordering Facility: [facility] Address: [address] [place] [address] Performed By: #### 5 8410-2 #### [facility] CLIA [id number] [address] [place] [address] [place] Hematocrit (Bld) [Volume fraction] 30.2 % Low 36.0-46.0 [facility] Comment on above: Order Comment: Speci men Type: BLOOD SPECIMEN Ordering Facility: [facility] Address: [address] [place] [address] Performed By: #### 5 8410-2 #### [facility] CLIA [id number] [address] [place], [place] [address] [place] Hemoglobin (Bld) [Mass/Vol] 9.5 g/dL Low 11.5-15.5 [facility] Comment on above: Order Comment: Speci men Type: BLOOD SPECIMEN Ordering Facility: [facility] Address: [address] [place] [address] Performed By: #### 5 8410-2 #### [facility] CLIA [id number] [address] [place], [place] [address] [place] MCH (RBC) [Entitic mass] 25.4 pg Low 26.0-34.0 [facility] Comment on above: Order Comment: Speci men Type: BLOOD SPECIMEN Ordering Facility: [facility] Address: [address] [place] [address] Performed By: #### 5 8410-2 #### [facility] CLIA [id number] [address] [place] [address] [place] MCHC (RBC) [Mass/Vol] 31.5 g/dL Normal 30.5-36.0 [facility] Comment on above: Order Comment: Speci men Type: BLOOD SPECIMEN Ordering Facility: [facility] Address: [address] [place] [address] Performed By: #### 5 8410-2 #### [facility] CLIA [id number] [address] [place] [address] [place] MCV (RBC) [Entitic vol] 80.7 fL Normal 80.0-100.0 [facility] Comment on above: Order Comment: Speci men Type: BLOOD SPECIMEN Ordering Facility: [facility] Address: [address] [place] [address] Performed By: #### 5 8410-2 #### [facility] [place] [id number] [address] [place] [address] [place] Nucleated RBC (Bld) [#/Vol] 10*3/uL Normal <0.01 [facility] Comment on above: Order Comment: Speci men Type: BLOOD SPECIMEN Ordering Facility: [facility] Address: [address] [place] [address] Performed By: #### 5 8410-2 #### [facility] [place] [id number] [address] [place] [address] [place] Platelet mean volume (Bld) [Entitic vol] 9.6 fL Normal 9.0-12.7 [facility] Comment on above: Order Comment: Speci men Type: BLOOD SPECIMEN Ordering Facility: [facility] Address: [address] [place] [address] Performed By: #### 5 8410-2 #### [facility] CLIA [id number] [address] [place] [address] [place] Platelets (Bld) [#/Vol] 355 10*3/uL Normal 150-400 [facility] Comment on above: Order Comment: Speci men Type: BLOOD SPECIMEN Ordering Facility: [facility] Address: [address] [place] [address] Performed By: #### 5 8410-2 #### [facility] CLIA [id number] [address] [place], [place] [address] [place] RBC (Bld) [#/Vol] 3.74 10*6/uL Low 3.90-5.20 [facility] Comment on above: Order Comment: Caryn campos Type: BLOOD SPECIMEN Ordering Facility: [facility] Address: [address] [place] [address] Performed By: #### 5 8410-2 #### [facility] [place] [id number] [address] [place], [place] [address] [place] WBC (Bld) [#/Vol] 14.23 10*3/uL High 3.70-11.00 [facility] Comment on above: Order Comment: Caryn campos Type: BLOOD SPECIMEN Ordering Facility: [facility] Address: [address] [place] [address] Performed By: #### 5 8410-2 #### [facility] [place] [id number] [address] [place], [place] [address] [employer] [place] CNDSon 08-25-2023 CNDS HNO ID: [id number] Author: DERIK AMARAL MD Service: Orthopaedic Surgery [...] The patient was electively admitted to the [facility] on 08/24/2023. Surgery was scheduled and [...] Center 09/10/2023 8:40 AM Joo Cruz MD [facility] 09/13/2023 9:15 AM GENERAL [facility] 11/01/2023 4:00 PM Joo Cruz MD [facility] 01/31/2024 1:30 PM Franchesca Low MD [facility] Discharge Medications: Medication List START taking these medications docusate sodium 100 mg capsule Commonly known as: COLACE Take 1 capsule by mouth two times a day. oxyCODONE IR 5 mg immediate release tablet Commonly known as: ROXICODONE Take 1 tablet by mouth every 4 hours as needed for (more content not included)... [facility] THERAPY NTon 08-25-2023 THERAPY NT HNO ID: [id number] Author: AKIN BILLINGSLEY, PT, DPT Service: Physical Therapy Author Type: Physical Therapist Type: Therapy (PT/OT/Speech/Resp) Filed: 08/25/2023 13:34 Note Text: Physical Therapy Evaluation Summary SERVICE DATE: 08/25/2023 SERVICE TIME: 1253 to 1311 ROOM: [place] [address] PT 6 Clicks Score: 24 DISCHARGE RECOMMENDATIONS [...] DATE: August 25, 2023 TIME: 1:34 PM [facility] THERAPY NT HNO ID: [id number] Author: LATOYA HEIN OTR/Rocio Service: Occupational Therapy Author Type: Occupational Therapist Type: Therapy (PT/OT/Speech/Resp) Filed: 08/25/2023 13:39 Note Text: Per discussion with PT, pt with no skilled OT needs at this time. OT to discontinue orders. [facility] XR CERVICAL 2V AP/LATon 08-06 XR CERVICAL [...] is seen. Prevertebral soft tissues are unremarkable. Scaffold Erector: PSCB Transcribe Date/Time: Aug 25 2023 3:54P Dictated by : EUGENIA CISNEROS MD This examination was interpreted and the report reviewed and electronically signed by: EUGENIA CISNEROS MD on Aug 25 2023 3:55PM EST [id number] [facility] ANES POSTPROC EVALon 024 ANES POSTPROC EVAL HNO ID: [id number] Author: GENEVIEVE VIEIRA MD Service: Anesthesiology Author [...] August 24, 2023 TIME: 3:18 PM CSN: [id number] [facility] ANES PRE-OPon 08-24-2023 ANES PRE-OP HNO ID: [id number] Author: GENEVIEVE VIEIRA MD Service: Anesthesiology Author [...] and consent discussed: yes. Patient / Responsible Republican agrees to proceed: yes Patient / Surrogate [...] August 24, 2023 TIME: 10:51 AM CSN: [id number] [facility] BRIEF OP NOTon 08-24-2023 BRIEF OP NOT HNO ID: [id number] Author: JOO CRUZ MD Service: Neurosurgery Author Type: Physician Type: Brief Op Note Filed: 08/24/2023 14:51 Note Text: BRIEF OP NOTE LOG ID: [id number] Surgery/Procedure Date: 08/24/2023 Incision/Procedure Start Time: 12:49 PM Incision Close/Procedure End Time: 2:41 PM Surgeon(s)/Proceduralist( s) and Admission Specialist(s): Surgeon(s) and Role: * Joo Cruz MD - Primary Pre-Op/Pre-Procedure Diagnosis: cervical myelo/radiculopathy Post-Op/Post-Procedure Diagnosis: same Procedure(s): ACDF C6/7 Anesthesia: General Estimated Blood Loss: 15 mls Specimens Removed: * No specimens in log * Drain: Implant Name Type Inv. Item Serial No. Bookkeeper Lot No. LRB No. Used Action PIN YELLOW TITANIUM 14MM DISTRACTION STERILE DISPOSABLE - [id number] Pin PIN YELLOW TITANIUM 14MM DISTRACTION STERILE DISPOSABLE MEDICAL D0142-38 N/A 1 Non-Implant PIN YELLOW TITANIUM 14MM DISTRACTION STERILE DISPOSABLE - [id number] Pin PIN YELLOW TITANIUM 14MM DISTRACTION STERILE DISPOSABLE MEDICAL R4502-28 N/A 1 Non-Implant SPACER AVS 4D 6MM SPINAL BONE PLUG - [id number] Graft SPACER AVS 4D 6MM SPINAL BONE PLUG [id number] SHANNON SPINE N/A 1 Implanted OZARK SELF STARTING VARIABLE SCREW SIZE 4MM X 12MM Screw SHANNON N/A 4 Implanted OZARK PLATE, 1 LEVEL, SZ 18MM Plate SHANNON Pending 1 Implanted Complications: None Wbat Xrays PT/OT ADAT Po pain control with IV back up Anticipate d/c in AM. SIGNATURE: Joo Cruz MD PATIENT NAME: Ladi Byers DATE: August 24, 2023 TIME: 2:51 PM PAGER/CONTACT #: [phone] Joo Cruz MD Spine Surgery. Call/text with any issues: Please page [facility] ([phone]) from 5p-6a and on weekends for any issues. Between 5PM to 7AM, or if urgent, please page the orthopaedic on-call resident at: [facility] ([phone]) for [facility] patients [phone] for [facility] patients [facility] CONSULTon 08-24-2023 CONSULT HNO ID: [id number] Author: NAPOLEON BISHOP MD Service: General Internal [...] Penicillins Hives Reglan [Metoclopram* Mental Status Change PRIOR TO [...] NECK: Ne (more content not included)... Normal [facility] HCG Preg Ur Qlon 08-24-2023 HCG ( test) Ql (U) Negative Normal Negative [facility] Comment on above: Order Comment: Speci men Type: URINE SPECIMEN [facility] Address: [address] [place] [address] Result Comment: This test is intended to aid in the early detection of . Very dilute urine samples, as indicated by a low specific gravity, may not contain independent sales representative levels of hCG. This test [...] . Performed By: #### 2 106-3 #### [facility] [id number] [address] [place] [address] [place] NURSING PROGon 08-24-2023 NURSING PROG HNO ID: [id number] Author: JULES ZUÑIGA RN Service: ? Author Type: Registered Nurse Type: Nursing Progress Note Filed: 08/24/2023 18:27 Note Text: Transfer Note: PATIENT NAME: Ladi Byers Patient Location: [facility]/[id number] Room: [place]-[id number] Patient transferred into room/unit [facility] in stable condition. Actions taken: No futher actions taken at this time. Will continue to monitor and check with patient. [facility] OPERATIVE NOon 08-24-2023 OPERATIVE NO HNO ID: [id number] Author: JOO CRUZ MD Service: Neurosurgery Author Type: Physician Type: Operative Report Filed: 08/24/2023 16:58 Note Text: Operative NOTE LOG ID: [id number] Surgery/Procedure Date: 08/24/2023 Incision/Procedure Start Time: 12:49 PM Incision Close/Procedure End Time: 2:41 PM Surgeon(s)/Proceduralist( s) and Admission Specialist(s): Surgeon(s) and Role: * Joo Cruz MD - Primary Pre-Op/Pre-Procedure Diagnosis: Cervical myelopathy /radiculopathy Post-Op/Post-Procedure Diagnosis: same Procedure(s): ACDF C6/7 Anesthesia: General Estimated Blood Loss: 15 mls Specimens Removed: * No specimens in log * Drain: Implant Name Type Inv. Item Serial No. Bookkeeper Lot No. LRB No. Used Action PIN YELLOW TITANIUM 14MM DISTRACTION STERILE DISPOSABLE - [id number] Pin PIN YELLOW TITANIUM 14MM DISTRACTION STERILE DISPOSABLE MEDICAL M7336-25 N/A 1 Non-Implant PIN YELLOW TITANIUM 14MM DISTRACTION STERILE DISPOSABLE - [id number] Pin PIN YELLOW TITANIUM 14MM DISTRACTION STERILE DISPOSABLE MEDICAL S7534-56 N/A 1 Non-Implant SPACER AVS 4D 6MM SPINAL BONE PLUG - [id number] Graft SPACER AVS 4D 6MM SPINAL BONE PLUG [id number] SHANNON SPINE N/A 1 Implanted OZARK SELF [...] the longus colli muscle flaps at C6/7. Fedora pins were placed into the vertebral body of C6 and C7. We confirmed our level using intraoperative fluoroscopy according to [facility]. At this point, The surgical microscope was brought into the field and the remaining portion of the operation performed using microdissection techniques. A complete diskectomy was performed at C6-C7 level. An anterior annulotomy was created using a #15 blade scalpel. The disk and endplate cartilages were removed in their entirety from [id number] in anterior-posterior fashion. A posterior osteophyte was [...] used a 6 (more content not included)... [facility] XR CERVICAL 2V AP/LATon 08-06 XR CERVICAL [...] spaces are maintained IMPRESSION: SATISFACTORY POSTOPERATIVE SPINE Scaffold Erector: PSCB Transcribe Date/Time: Aug 26 2023 3:02P Dictated by : SADIE NATH MD This examination was interpreted and the report reviewed and electronically signed by: SADIE NATH MD on Aug 26 2023 3:03PM EST [id number] [facility] XR VERIFY LEVEL M-LIKKR-LMwz 08-24-2023 XR VERIFY LEVEL C-SPINE-NB * * [...] phone and Skype during the surgical procedure. [facility] Transcribe Date/Time: Aug 24 2023 1:18P Dictated by : EUGENIA CISNEROS MD This examination was interpreted and the report reviewed and electronically signed by: EUGENIA CISNEROS MD on Aug 24 2023 1:20PM EST [id number] [facility] 08-19-[address] [facility] Telephone (NIQ) ----- LADI BYERS ([id number]) 1985 F Date Time Provider Department 08/19/23 JOO CRUZ [facility] During your visit today, we recorded [...] appointment: 09/10/2023 Best number to reach caller: [phone] Best time to reach caller: anytime Is [...] for Visit: Patient Update [1234] Patient Question [2517] Prescriptions as of 08/19/2023 - QUEtiapine (SEROQUEL) [...] Status:Closed by VENTURA DE JESUS on 08/19/23 [facility] Ernesto 08-10-2023 CNOV Office Visit ([facility] ) ----- LADI BYERS ([id number]) 1985 F Date Time Provider Department 08/10/23 3:30 PM HUY ASCENCIO [facility] During your visit today, we recorded the following information about you: Weight 67.6 kg Huy Ascencio APRN.GANG DRILL OPERATOR 08/10/2023 3:30 PM Signed Spine Care Path [...] just get past . Currently employed at [employer]. 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 Smoker and [...] Physical Therapy and Occupational therapy : At [facility] 01/2023 - 05/31/2023 - 22 visits , [...] 2 PROMIS (more content not included)... Normal [facility] CNPNon 08-06-2023 CNPN Telephone (SPNSMN) ----- LADI BYERS ([id number]) 1985 F Date Time Provider Department 08/06/23 JOO CRUZ SPNSMN During your visit today, we recorded the following information about you: Ventura De Jesus, RN 08/06/2023 10:04 AM Signed Neuro SPINE CARE COORDINATION QUICK NOTE Call to the pt - due to ATB. Use for the tooth infection - she will postponed to 08-24-[address] Cruz Allergies As of [...] by VENTURA DE JESUS on 08/06/23 Normal [facility] Basic metabolic 2000 panelon 08-04-2023 Anion gap [Moles/Vol] 10 mmol/L Normal 9-18 [facility] Comment on above: Order Comment: Speci men Type: BLOOD SPECIMENOrdering Facility: [facility] Address: [address] [place] [address] Performed By: #### 2 4321-2 ####[facility] LABCLIA [id number] [place] [address] Calcium [Mass/Vol] 9.5 mg/dL Normal 8.5-10.2 [facility] Comment on above: Order Comment: Speci men Type: BLOOD SPECIMENOrdering Facility: [facility] Address: [address] [place] [address] Performed By: #### 2 4321-2 ####[facility] LABCLIA [id number] [place] [address] Chloride [Moles/Vol] 106 mmol/L High 97-105 [facility] Comment on above: Order Comment: Speci men Type: BLOOD SPECIMENOrdering Facility: [facility] Address: [address] [place] [address] Performed By: #### 2 4321-2 ####[facility] LABCLIA [id number] [place] [address] CO2 [Moles/Vol] 24 mmol/L Normal 22-30 [facility] Comment on above: Order Comment: Speci men Type: BLOOD SPECIMENOrdering Facility: [facility] Address: [address] [place] [address] Performed By: #### 2 4321-2 ####[facility] LABCLIA [id number] [place] [address] Creatinine [Mass/Vol] 0.79 mg/dL Normal 0.58-0.96 [facility] Comment on above: Order Comment: Speci men Type: BLOOD SPECIMENOrdering Facility: [facility] Address: [address] [place] [address] Performed By: #### 2 4321-2 ####[facility] LABCLIA [id number] [place] [address] Creatinine and Glomerular filtration rate.predicted panel (S/P/Bld) 98 mL/min/1.73m??? Normal >=60 [facility] Comment on above: Order Comment: Speci men Type: BLOOD SPECIMENOrdering Facility: [facility] Address: [address] [place] [address] Result Comment: Ludivina mated Glomerular Filtration Rate [...] actual GFR. Performed By: #### 2 4321-2 ####[facility] LABCLIA [id number] [place] [address] Glucose [Mass/Vol] 98 mg/dL Normal 74-99 [facility] Comment on above: Order Comment: Speci men Type: BLOOD SPECIMENOrdering Facility: [facility] Address: [address] [id number] Result Comment: The [place] Diabetes Association (ADA) provides guidance for cutoff [...] Standards of Medical Care in Diabetes 2016, [place] [employer]. Diabetes Care. 2016.39(Suppl 1). Performed By: #### 2 4321-2 ####[facility] LABCLIA [id number] [place] [address] Potassium [Moles/Vol] 3.9 mmol/L Normal 3.7-5.1 [facility] Comment on above: Order Comment: Speci men Type: BLOOD SPECIMENOrdering Facility: [facility] Address: [address] [place] [address] Performed By: #### 2 4321-2 ####[facility] LABCLIA [id number] [place] [address] Sodium [Moles/Vol] 140 mmol/L Normal 136-144 [facility] Comment on above: Order Comment: Speci men Type: BLOOD SPECIMENOrdering Facility: [facility] Address: [address] [place] [address] Performed By: #### 2 4321-2 ####[facility] LABCLIA [id number] [place] [address] Urea nitrogen [Mass/Vol] 8 mg/dL Normal 7-21 [facility] Comment on above: Order Comment: Speci men Type: BLOOD SPECIMENOrdering Facility: [facility] Address: [address] [place] [address] Performed By: #### 2 4321-2 ####[facility] LABCLIA [id number] [place] [address] CBC W Auto Differential pane l (Bld)on 08-04-2023 Basophils (Bld) [#/Vol] 10*3/uL Normal <0.11 [facility] Comment on above: Order Comment: Speci men Type: BLOOD SPECIMENOrdering Facility: [facility] Address: [address] [place] [address] Performed By: #### 5 7021-8 ####[facility] LABCLIA [id number] [place] [address] Basophils/100 WBC (Bld) 0.3 % Normal [facility] Comment on above: Order Comment: Speci men Type: BLOOD SPECIMENOrdering Facility: [facility] Address: [address] [place] [address] Performed By: #### 5 7021-8 ####[facility] LABCLIA [id number] [place] [address] Differential cell count method Nom (Bld) Auto Normal [facility] Comment on above: Order Comment: Speci men Type: BLOOD SPECIMENOrdering Facility: [facility] Address: [address] [place] [address] Performed By: #### 5 7021-8 ####[facility] LABCLIA [id number] [place] [address] Eosinophils (Bld) [#/Vol] 0.08 10*3/uL Normal <0.46 [facility] Comment on above: Order Comment: Speci men Type: BLOOD SPECIMENOrdering Facility: [facility] Address: [address] [place] [address] Performed By: #### 5 7021-8 ####[facility] LABCLIA [id number] [place] [address] Eosinophils/100 WBC (Bld) 1.3 % Normal [facility] Comment on above: Order Comment: Speci men Type: BLOOD SPECIMENOrdering Facility: [facility] Address: [address] [place] [address] Performed By: #### 5 7021-8 ####[facility] LABCLIA [id number] [place] [address] Erythrocyte distribution width (RBC) [Ratio] 14.8 % Normal 11.5-15.0 [facility] Comment on above: Order Comment: Speci men Type: BLOOD SPECIMENOrdering Facility: [facility] Address: [address] [place] [address] Performed By: #### 5 7021-8 ####[facility] LABCLIA [id number] [place] [address] Hematocrit (Bld) [Volume fraction] 36.9 % Normal 36.0-46.0 [facility] Comment on above: Order Comment: Speci men Type: BLOOD SPECIMENOrdering Facility: [facility] Address: [address] [place] [address] Performed By: #### 5 7021-8 ####[facility] LABCLIA [id number] [place] [address] Hemoglobin (Bld) [Mass/Vol] 11.5 g/dL Normal 11.5-15.5 [facility] Comment on above: Order Comment: Speci men Type: BLOOD SPECIMENOrdering Facility: [facility] Address: [address] [place] [address] Performed By: #### 5 7021-8 ####[facility] LABCLIA [id number] [place] [address] Immature granulocytes (Bld) [#/Vol] 10*3/uL Normal <0.10 [facility] Comment on above: Order Comment: Speci men Type: BLOOD SPECIMENOrdering Facility: [facility] Address: [address] [place] [address] Performed By: #### 5 7021-8 ####[facility] LABCLIA [id number] [place] [address] Immature granulocytes/100 WBC (Bld) 0.3 % Normal [facility] Comment on above: Order Comment: Speci men Type: BLOOD SPECIMENOrdering Facility: [facility] Address: [address] [place] [address] Performed By: #### 5 7021-8 ####[facility] LABCLIA [id number] [place] [address] Lymphocytes (Bld) [#/Vol] 2.60 10*3/uL Normal 1.00-4.00 [facility] Comment on above: Order Comment: Speci men Type: BLOOD SPECIMENOrdering Facility: [facility] Address: [address] [place] [address] Performed By: #### 5 7021-8 ####[facility] LABIA [id number] [place] [address] Lymphocytes/100 WBC (Bld) 40.9 % Normal [facility] Comment on above: Order Comment: Speci men Type: BLOOD SPECIMENOrdering Facility: [facility] Address: [address] [place] [address] Performed By: #### 5 7021-8 ####[facility] LABCLIA [id number] [place] [address] MCH (RBC) [Entitic mass] 24.7 pg Low 26.0-34.0 [facility] Comment on above: Order Comment: Speci men Type: BLOOD SPECIMENOrdering Facility: [facility] Address: [address] [place] [address] Performed By: #### 5 7021-8 ####[facility] LABIA [id number] [place] [address] MCHC (RBC) [Mass/Vol] 31.2 g/dL Normal 30.5-36.0 [facility] Comment on above: Order Comment: Speci men Type: BLOOD SPECIMENOrdering Facility: [facility] Address: [address] [place] [address] Performed By: #### 5 7021-8 ####[facility] LABCLIA [id number] [place] [address] MCV (RBC) [Entitic vol] 79.2 fL Low 80.0-100.0 [facility] Comment on above: Order Comment: Speci men Type: BLOOD SPECIMENOrdering Facility: [facility] Address: [address] [place] [address] Performed By: #### 5 7021-8 ####[facility] LABCLIA [id number] [place] [address] Monocytes (Bld) [#/Vol] 0.38 10*3/uL Normal <0.87 [facility] Comment on above: Order Comment: Speci men Type: BLOOD SPECIMENOrdering Facility: [facility] Address: [address] [place] [address] Performed By: #### 5 7021-8 ####[facility] LABCLIA [id number] [place] [address] Monocytes/100 WBC (Bld) 6.0 % Normal [facility] Comment on above: Order Comment: Speci men Type: BLOOD SPECIMENOrdering Facility: [facility] Address: [address] [place] [address] Performed By: #### 5 7021-8 ####[facility] LABCLIA [id number] [place] [address] Neutrophils (Bld) [#/Vol] 3.26 10*3/uL Normal 1.45-7.50 [facility] Comment on above: Order Comment: Speci men Type: BLOOD SPECIMENOrdering Facility: [facility] Address: [address] [place] [address] Performed By: #### 5 7021-8 ####[facility] LABCLIA [id number] [place] [address] Neutrophils/100 WBC (Bld) 51.2 % Normal [facility] Comment on above: Order Comment: Speci men Type: BLOOD SPECIMENOrdering Facility: [facility] Address: [address] [place] [address] Performed By: #### 5 7021-8 ####[facility] LABCLIA [id number] [place] [address] Nucleated RBC (Bld) [#/Vol] 10*3/uL Normal <0.01 [facility] Comment on above: Order Comment: Speci men Type: BLOOD SPECIMENOrdering Facility: [facility] Address: [address] [place] [address] Performed By: #### 5 7021-8 ####[facility] LABCLIA [id number] [place] [address] Nucleated RBC/100 WBC (Bld) [Ratio] 0.0 /100 WBC Normal [facility] Comment on above: Order Comment: Speci men Type: BLOOD SPECIMENOrdering Facility: [facility] Address: [address] [place] [address] Performed By: #### 5 7021-8 ####[facility] LABCLIA [id number] [place] [address] Platelet mean volume (Bld) [Entitic vol] 9.0 fL Normal 9.0-12.7 [facility] Comment on above: Order Comment: Speci men Type: BLOOD SPECIMENOrdering Facility: [facility] Address: [address] [place] [address] Performed By: #### 5 7021-8 ####[facility] LABCLIA [id number] [place] [address] Platelets (Bld) [#/Vol] 359 10*3/uL Normal 150-400 [facility] Comment on above: Order Comment: Speci men Type: BLOOD SPECIMENOrdering Facility: [facility] Address: [address] [place] [address] Performed By: #### 5 7021-8 ####[facility] LABCLIA [id number] [place] [address] RBC (Bld) [#/Vol] 4.66 10*6/uL Normal 3.90-5.20 [facility] Comment on above: Order Comment: Speci men Type: BLOOD SPECIMENOrdering Facility: [facility] Address: [address] [place] [address] Performed By: #### 5 7021-8 ####[facility] LABCLIA [id number] [place] [address] WBC (Bld) [#/Vol] 6.36 10*3/uL Normal 3.70-11.00 [facility] Comment on above: Order Comment: Speci men Type: BLOOD SPECIMENOrdering Facility: [facility] Address: [address] [place] [address] Performed By: #### 5 7021-8 ####[facility] LABCLIA [id number] [place] [address] CONFIRM BLOOD TYPEon 024 ABO O Normal [facility] Comment on above: Order Comment: Speci men Type: BLOOD SPECIMENOrdering Facility: [facility] Address: [address] [place] [address] Performed By: #### C ONABO ####[facility] MA[facility] BLOOD BANKCLIA [id number] [place] [address] [place] Rh Nom (Bld) Positive Normal [facility] Comment on above: Order Comment: Speci men Type: BLOOD SPECIMENOrdering Facility: [facility] Address: [address] [place] [address] Performed By: #### C ONABO ####CC MAIN BLOOD BANKCLIA [id number] [address] [address] [place] TYPE AND SCREEN,30 DAYon ABO O Normal [facility] Comment on above: Order Comment: Speci men Type: BLOOD SPECIMENOrdering Facility: [facility] Address: [address] [place] [address] Performed By: #### T SCR30 ####CC MAIN BLOOD BANKCLIA [id number] [address] [place] HISTORICAL AB SCR STATUS Negative Normal [facility] Comment on above: Order Comment: Speci men Type: BLOOD SPECIMENOrdering Facility: [facility] Address: [address] [place] [address] Performed By: #### T SCR30 ####[facility] MA[facility] BLOOD BANKCLIA [id number] [address] [place] Rh Nom (Bld) Positive Normal [facility] Comment on above: Order Comment: Speci men Type: BLOOD SPECIMENOrdering Facility: [facility] Address: [address] [place] [address] Performed By: #### T SCR30 ####CC MAIN BLOOD BANKCLIA [id number] [address] [place] CNPNon 08-03-2023 CNPN Telephone (SPNSMN) ----- LADI BYERS ([id number]) 1985 F Date Time Provider Department 08/03/23 JOO CRUZ SPNSMN During your visit today, we recorded the following information about you: Ventura De Jesus, RN 08/03/2023 8:36 AM Signed Neuro SPINE CARE COORDINATION QUICK NOTE Call to the pt who has cx and postponed her PACC apt times two. Insurer requesting nicotine test. FC working with insurer have been updated that pt has cord compression with long tract signs per Dr. Cruz. Pt has apt today and will complete her nicotine screen today . PAVE updated. Allergies As of Date: 08/03/2023 Noted [...] Status:Closed by VENTURA DE JESUS on 08/03/23 [facility] HISTORY PHYSICALon HISTORY PHYSICAL HNO ID: [id number] Author: NAYANA MCLEAN PA-C Service: ? Author Type: Physician Admission Specialist Type: H&P Filed: 08/06/2023 09:46 Note Text: [...] mouth daily (more content not included)... Normal [facility] NICOTINE/COTININEon 08-03-19 24 Cotinine [Mass/Vol] 100 ng/mL High <2 [facility] Comment on above: Order Comment: Speci men Type: BLOOD SPECIMENOrdering Facility: [facility] Address: [address] [place] [address] Result Comment: Acti ve tobacco product user: Nicotine concentration: 30 - 50 ng/mL Cotinine concentration: 200 - 800 ng/mL Passive exposure to tobacco: Nicotine concentration: < 2 ng/mL Cotinine concentration: < 8 ng/mL Unexposed non-tobacco user or abstinent user for > 2 weeks: Nicotine concentration: < 2 ng/mL Cotinine concentration: < 2 ng/mL This test was developed and its performance characteristics determined by [facility]'s Yury Moeller [facility] Pathology and Laboratory Medicine [place] ([facility]). It has not been cleared or approved by the FDA. [facility] is regulated under CLIA as qualified to perform high-complexity testing. This test is used for clinical purposes. It should not be regarded as investigational or for research. Performed By: #### N ICOT ####[facility] LABIA [id number] [place] [address] [place] Nicotine [Mass/Vol] 16 ng/mL High <2 [facility] Comment on above: Order Comment: Speci men Type: BLOOD SPECIMENOrdering Facility: [facility] Address: [address] [place] [address] Performed By: #### N ICOT ####[facility] [id number] [place] [address] [place] STAPH AUREUS PCRon S. aureus and MRSA panel SAMAN+probe (Nose) Normal Negative [facility] Comment on above: Order Comment: Speci men Type: SWAB OF INTERNAL NOSEOrdering Facility: [facility] Address: [address] [place] [address] Result Comment: Nega tive for Staphylococcus aureus by PCR. Negative for MRSA by PCR Performed By: #### S APCR ####[facility] [id number] [place] [address] [place] CNOVon 08-02-2023 CNOV Office Visit ([place] ) ----- LADI [id number]) 1985 F Date Time Provider Department 08/02/23 11:00 AM CHANTAL HUMPHREY During your visit today, we recorded the following information about you: Pulse Blood pressure Weight Height 112/minute 118/74 70.3 kg 1.524 m Last Period 07/19/23 Chantal Humphrey APRN.GANG DRILL OPERATOR 08/02/2023 12:22 PM Signed [facility] [place] [facility] Department of Cardiovascular Medicine SECTION OF CLINICAL CARDIOLOGY OUTPATIENT VISIT DATE August 02, 2023 OUTPATIENT VISIT TYPE ESTABLISHED PRIMARY CARE PHYSICIAN: Reuben Agrawal [address] [place] [address] CHIEF COMPLAINT: Follow Up HISTORY OF PRESENT [...] Well ap (more content not included)... Normal [facility] CNPNon 07-29-2023 CNPN Telephone (INJobs2Web) ----- LADI BYERS ([id number]) 1985 F Date Time Provider Department 07/29/23 [facility] During your visit today, we recorded the following information about you: Godfrey Martin MA 07/29/2023 10:41 AM Signed Type of form: Discharge note Form received via fax When form is completed, Fax form to [facility] serves @ [phone] Form has been forwarded to Physician Mailbox: [...] Encounter Status:Closed by GODFREY MARTIN on 07/29/23 [facility] CNOVon 07-26-2023 CNOV Office Visit (SPSLUH ) ----- LADI BYERS ([id number]) 1985 F Date Time Provider Department 07/26/23 8:40 AM JOO CRUZ [facility] During your visit today, we recorded [...] depression 20-27 Severe depression OBJECTIVE: PHYSICAL EXAM: [facility] 03/31/2023 GENERAL APPEARANCE: Well nourished, well developed, [...] slightly biased towar (more content not included)... [facility] 07-20-[address] [facility] Telephone (SPNSMN) ----- LADI BYERS ([id number]) 1985 F Date Time Provider Department 07/20/23 JOO CRUZMN During your visit today, we recorded the following information about you: Ventura De Jesus, MOISE 07/20/2023 12:12 PM Signed Neuro SPINE CARE COORDINATION QUICK NOTE Insurance recommending Nicotine test. Order has been placed and the pt. Will complete at [facility]. Ventura De Jesus RN 07/27/2023 11:32 [...] Change Date Reviewed: 07/02/2023 Reviewed by: Marv Murillo, RN - Fully Assessed Prescriptions as of [...] by VENTURA DE JESUS on 07/20/23 Normal [facility] ECG 12-Leadon 07-19-2023 ECG 12-Lead [id number]#1.00TIFF Normal [facility] Comment on above: Other Comment: PROVI CARLO REFUSED TO SIGN Echocardiographyon Echocardiography [id number]#1.00TIFF Normal [facility] CT CERVICAL SPINE WO IVCONon 07-16-2023 CT CERVICAL SPINE WO IVCON * * *Final Report* * * DATE OF EXAM: Jul 16 2023 3:26PM [facility] 0505 - CT CERVICAL SPINE WO IVCON [...] Counting reference: Craniocervical junction. Anatomic Variants: None. Undercutter (topogram) images: No additional findings. Alignment: There [...] No CT evidence of central canal stenosis. Scaffold Erector: PSCB Transcribe Date/Time: Jul 16 2023 8:55P Dictated by : DIEGO AMIN MD This examination was interpreted and the report reviewed and electronically signed by: DIEGO AMIN MD on Jul 16 2023 9:00PM EST [id number] [facility] CNOVon 07-09-2023 CNOV Office Visit (NEUFHS ) ----- LADI BYERS ([id number]) 1985 F Date Time Provider Department 07/09/23 11:00 AM TRISTAN GUALLPA During your visit today, we recorded the following information about you: Temperature Pulse Blood pressure Weight 98.3 degrees 109/minute 110/69 77 kg Height 1.524 m Tristan Guallpa MD 07/12/2023 6:58 AM Signed Impression: This is Ms. Ladi Byers, a 38 year old female who presents to the [facility] clinic with the chief complaint of [...] needed. Tristan Guallpa MD Staff, Neu[facility] [place] HPI: This is Ms. 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 Normal [facility] HbA1c (Bld)on 07-08-2023 Average glucose Estimated from glycated hemoglobin (Bld) [Mass/Vol] 94 mg/dL Normal [facility] Comment on above: Order Comment: Caryn campos Type: BLOOD SPECIMENOrdering Facility: [facility] Address: [address] [place] [address] Result Comment: eAG: (Estimated average glucose) is a calculated value from HgbA1c and is independent sales representative of the average blood glucose level in the last 2-3 month period. Performed By: #### 5 5454-3 ####[facility] LABIA [id number] [address] [place] HbA1c (Bld) [Mass fraction] 4.9 % Normal 4.3-5.6 [facility] Comment on above: Order Comment: Caryn campos Type: BLOOD SPECIMENOrdering Facility: [facility] Address: [address] [place] [address] Result Comment: Amer ican Diabetes Association guidelines indicate that patients with HgbA1c in the range 5.7-6.4% are at increased risk for development of diabetes, and intervention by lifestyle modification may be beneficial. HgbA1c greater or equal to 6.5% is considered diagnostic of diabetes. Performed By: #### 5 5454-3 ####[facility] LABCLIA [id number] [address] [place] Kyle 07-06-2023 LEILAN Telephone (SPNSMN) ----- LADI BYERS ([id number]) 1985 F Date Time Provider Department 07/06/23 JOO CRUZ SPNSMN During your visit today, we recorded the following information about you: Ventura De Jesus RN 07/06/2023 9:42 AM Signed Neuro SPINE [...] teach back. Additional comments : home with mavis Preoperative Needs Assessment Do you live alone [...] Status:Closed by VENTURA DE JESUS [facility] LADI BY[facility] ([id number]) 1985 F Date Time Provider Department 07/06/23 DIMITRY [facility] During your visit today, we recorded the following information about you: Nell Riley LPN 07/06/2023 1:45 PM Signed Phoned patient and spoke with Ladi to confirm appointment for Ladi Byers for spine procedure on 07/15/2023. 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 [facility] 06-25-2023 [facility] Office Visit (LORAINE ) ----- LADI BYERS ([id number]) 1985 F Date Time Provider Department 06/25/23 11:00 AM FRANCHESCA LOW During your visit today, we recorded the following information about you: Pulse Blood pressure Weight 83/minute 118/78 69.3 kg Franchesca Low MD 06/25/2023 11:36 AM Signed [facility] [place] SECTION OF REGIONAL CARDIOLOGY OUTPATIENT VISIT DATE June 25, 2023 OUTPATIENT VISIT TYPE NEW PRIMARY CARE PHYSICIAN: Reuben Agrawal [address] [place] [address] REFERRING PHYSICIAN: Maurice León [facility] [address] [place] [address] Patient is being seen at the request of the referring physician for palpitations- HISTORY OF PRESENT ILLNESS: Ms. Byers is a 38 year old female, seen in clinic today as a new patient for evaluation of palpitations, right bundle branch block noted on EKG. Hx of palpitations with possible sinus tachycardia-seen an treated at [facility]. Was started on metoprolol in the [...] with psychiatrist [facility] [place]. REVIEW OF SYSTEMS: 10 systems reviewed and [...] I have personally reviewed ECG: Sinus rhythm, SD 108, right bundle branch block. PAST MEDICAL [...] MEDICATIONS: albuterol (more content not included)... Normal [facility] QUO22kg 06-25-2023 ECG01 Ventricular Rate : 8 3 BPM Atrial Rate : 83 BPM P-R Interval : 108 ms QRS Duration : 136 ms Q-T Interval : 378 ms QTC Calculation(Bazett) : 444 ms Calculated P [place] : 27 degrees Calculated R [place] : -87 degrees Calculated T [place] : 44 degrees SINUS RHYTHM WITH SHORT SD COMPLETE RIGHT BUNDLE BRANCH BLOCK LEFT ANTERIOR FASCICULAR BLOCK LOW VOLTAGE QRS, IN PRECORDIAL LEADS ABNORMAL ECG Confirmed by SANDY MARES MD ([id number]) on 06/30/2023 6:20:36 PM NAME : LADI BYERS PID : [id number] : 1985 Gender : Female Race : ORD : Procedure Date : Jun 25 2023 10:53:52 Edit Date : Jun 30 2023 18:20:42 Diagnosis: SINUS RHYTHM WITH SHORT SD COMPLETE RIGHT BUNDLE BRANCH BLOCK LEFT ANTERIOR FASCICULAR BLOCK LOW VOLTAGE QRS, IN PRECORDIAL LEADS ABNORMAL ECG Confirmed by SANDY MARES MD ([id number]) on 06/30/2023 6:20:36 PM Test Reason : Location : 145 : LOCARD Overread By : SANDY MARES MD Edited By : SANDY MARES MD Referred By : FRANCHESCA LOW Acquired by : Gissel edge [facility] CNOVon 06-18-2023 CNOV Office Visit ([facility] ) ----- LADI BYERS ([id number]) 1985 F Date Time Provider Department 06/18/23 8:00 AM HUY ASCENCIO [facility] During your visit today, we recorded the following information about you: Weight Height 67.5 kg 1.533 m Huy Ascencio APRN.GANG DRILL OPERATOR 06/18/2023 12:10 PM Signed Spine Care Path [...] just get past . Currently employed at [employer]. 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 Smoker and [...] Physical Therapy and Occupational therapy : At [facility] 01/2023 - 05/31/2023 - visits , restarted on 06/14 and 2022 [...] History o (more content not included)... Normal [facility] ECHOon 06-18-2023 Echocardiography Echocardiography Rep ort: Transthoracic Echo [facility] Date of service: 06/18/2023 3:31:30 PM PRESS HAND Ordering physician: REUBEN AGRAWAL Indication: Abnormal ECG [...] * * Final * * * CC IP [employer] Image : [id number] Normal [facility] No Panel Informationon 06-18 [facility] XR CERVICAL 4V AP/LAT/FLX/EX Ton 06-18-2023 XR [...] instability at C5-6 upon flexion and extension Scaffold Erector: ADRYAN Transcribe Date/Time: Jun 18 2023 12:44P Dictated by : WILFREDO PORTILLO MD This examination was interpreted and the report reviewed and electronically signed by: WILFREDO PORTILLO MD on Jun 18 2023 12:47PM EST [id number] Normal [facility] CNPNon 06-14-2023 CNPN Telephone (INJobs2Web) ----- LADI BYERS ([id number]) 1985 F Date Time Provider Department 06/14/23 [facility] During your visit today, we recorded the [...] Encounter Status:Closed by GODFREY MARTIN on 06/14/23 [facility] Kyle 06-03-2023 CNPN Telephone (INJobs2Web) ----- LADI BYERS ([id number]) 1985 F Date Time Provider Department 06/03/23 [facility] During your visit today, we recorded the [...] - appt 06/18 We never received any STEEP TENDER records that we requested including any paps Maintain care with STEEP TENDER High risk to be 35+ years old smoking and on combination oral control. Increased risk for blood clots/stroke. Would not recommend she be on it. Work with STEEP TENDER regarding options/recommendations. Will send Cedexis message to pt Reuben Agrawal PA-C Allergies [...] Encounter Status:Closed by REUBEN AGRAWAL on 06/03/23 [facility] 06-02-2023 CNPN Telephone (4CQ) ----- LADI BYERS ([id number]) 1985 F Date Time Provider Department 06/02/23 [...] calling: self Call patient at: on cell [phone] (home) [phone] (cell) Was an appointment scheduled: No Closing statement: Results or non-symptom based questions: Thank you for calling [facility], your call will be returned within the [...] Fully Assessed Reason for Visit: Patient Question [6121] Prescriptions as of 06/03/2023 - norgestimate-ethinyl estradiol [...] Encounter Status:Closed by GODFREY MARTIN on 06/03/23 [facility] Kyle [facility]-06-20[facility] LAD[facility] BY[facility] ([id number]) 1985 F Date Time Provider Department 05/06/23 REUBEN AGRAWAL 4CQ During your visit today, we recorded the following information about you: Huber Serrano 05/06/2023 10:23 AM Signed Ladi Byers is calling Reuben Agrawal PA-C today Patient called asking if PT and OT orders can be sent to [facility]. Patient is unsure of the fax # but does have a ph of [phone]. Please advise. No chief complaint on file. Patient has been identified by name and birthdate. Duration of symptoms: N/A Person calling: self Call patient at: at home [phone] (home) [phone] (cell) Was an appointment scheduled: No Closing statement: Results or non-symptom based questions: Thank you for calling [facility], your call will be returned within the next business day. Reuben Barragan PA-C 05/06/2023 12:16 PM Signed Okay to [...] Status:Closed by GODFREY MARTIN on 05/06/23 Normal [facility] MRI CERVICAL SPINE WO IVCONo n 04-15-2023 [...] vertebrae with counting from the craniocervical junction. Scaffold Erector: PSCB Transcribe Date/Time: Apr 15 2023 12:11P Dictated by : KRISTY RINCON MD This examination was interpreted and the report reviewed and electronically signed by: KRISTY RINCON MD on Apr 15 2023 12:19PM EST [id number] Normal [facility] 04-12-[address] [facility] Telephone ([facility]) ----- LADI BYERS ([id number]) 1985 F Date Time Provider Department 04/12/23 REUBEN AGRAWAL During your visit today, we [...] Reason for Visit: Received Outside Medical Records [[id number]] Cmt: Records received Prescriptions as of 04/12/2023 [...] Encounter Status:Closed by YUE BURKETT on 04/12/23 [facility] Ernesto 04-09-2023 CNOV Office Visit (INMSHE ) ----- LADI BYERS ([id number]) 1985 F Date Time Provider Department 04/09/23 1:20 PM MIZANIN, REUBEN L INMSHE During your visit today, we recorded the [...] enjoyed her previous PCP which was an BENCH BORING MACHINE OPERATOR - thinks her labs were done earlier this year. Pt currently in [employer] school at [employer]. Psych: She reports a hx of depression, [...] denied because she needed to see a nipple machine operator. She suspects they didn't submit the right information for authorization. She also reports that the nipple machine operator verbally told psychiatry it was okay - but that documentation suggested otherwise so psychiatry will not refill/change medications. She had a stress test previously with cardiology - reports it ws done at [facility]. TMJ: Pt reports she was previously dx [...] She takes Imitrex prn. She's followed by [facility] - mild cerebellar tonsillar ectopia. MRI C-spine ordered. C-spine: She reports ongoing neck pain and upper back pain. She has had imaging including xray. She's followed by [facility] - mild cerebellar tonsillar ectopia. MRI C-spine ordered. She requests an order for PT and OT - previously was seeing therapy but wishes to transfer all care to [facility]. She takes naproxen daily and flexeril prn. IBS: She reports a history of irritable bowel syndrome. She has had a colonoscopy in the past - done at [facility]. She takes Bentyl prn with benefit. PUD: She reports a history of a gastric ulcer. She has had an EGD in the past - done at [facility]. She takes pantoprazole daily. She also takes naproxen daily. She also reports hx of fibromyalgia and nephrolithiasis. STEEP TENDER: She's followed by STEEP TENDER annually. She has a history of abnormal [...] Medications: norges (more content not included)... Normal [facility] CNPNon 04-09-2023 CNPN Telephone (FELIPE) ----- JAMALADI Rocio ([id number]) 1985 F Date Time Provider Department 04/09/23 [facility] During your visit today, we recorded the following information about you: Lauren Hernandez MA 04/09/2023 3:51 PM Signed Just sent over a request for medical records for [facility]. Lauren Hernandez MA April 09, 2023 3:51 PM Reuben Agrawal PA-C 04/15/2023 6:07 PM Signed Received papers printed from [facility] fax. Unfortunately, pages 1-123 were not included. Page 124 does include HPV test results which are negative (though not date). Will check with clinical who provided me the fax. ABA Matthews Jennifer, MA 04/20/2023 10:12 AM Signed Called [facility] and requested pages 1-123 that we have [...] Student - Fully Assessed Reason for Visit: [facility] Medical Record Request [Other] Prescriptions as of [...] Encounter Status:Closed by LAUREN HERNANDEZ on 04/09/23 [facility] ----- JAMALADI Rocio ([id number]) 1985 F Date Time Provider Department 04/09/23 [facility] During your visit today, we recorded the following information about you: Lauren Hernandez MA 04/09/2023 3:53 PM Signed Just sent over a request for medical records for [facility]. Lauren Hernandez MA April 09, 2023 3:53 [...] Other: See Comments PENICILLINS 12/18/2018 4 - Ishmael CAMPBELL (METOCLOPRAMIDE HCL) 12/30/2009 1 - Mental Status Change Date Reviewed: 04/09/2023 Reviewed by: Arsenio Humphrey MA Student - Fully Assessed Reason for Visit: [facility] Medical Record Request [Other] Prescriptions [...] Encounter Status:Closed by LAUREN HERNANDEZ on 04/09/23 [facility]INJobs[facility]Web[facility] ----- LADI BYERS ([id number]) 1985 F Date Time Provider Department 04/09/23 [facility]RAW[facility] During your visit today, we recorded the following information about you: Lauren Hernandez MA 04/09/2023 3:59 PM Signed Just sent over a request for medical records for [facility]. Lauren Hernandez MA April 09, 2023 3:59 PM Yue Burkett MA 04/12/2023 9:58 AM Signed Records received printed and scanned into chart placed in provider box Reuben Agrawal PA-C 04/15/2023 6:05 PM Signed Reviewed records from PCP office (initially was [facility] but later records in that file are listed as Joce Heller) Family history updated. ABA Matthews Meredith L, PA-C 04/16/2023 6:31 PM Signed Additional records reviewed (pages 1-55). Had chemical nuclear stress test. Pt did have palpitation during - note made it was [facility] ABA Matthews Meredith L, PA-C 04/19/2023 7:35 PM Addendum Received additional information from [facility]. Packet #1 96 pages No new information [...] Student - Fully Assessed Reason for Visit: [facility] Medical Records Request [Other] Prescriptions as of [...] Encounter Status:Closed by LAUREN HERNANDEZ on 04/09/23 [facility]Fluidnet[facility] ----- LADI BYERS ([id number]) 1985 F Date Time Provider Department 04/09/23 [facility] During your visit today, we recorded the following information about you: Lauren Hernandez MA 04/09/2023 3:54 PM Signed Just sent over a request for medical records for Joce Heller PICU NURSE. Lauren Hernandez MA April 09, 2023 [...] Fully Assessed Reason for Visit: Joce Heller PICU NURSE Medical Records Request [Other] Prescriptions as [...] Encounter Status:Closed by LAUREN HERNANDEZ on 04/09/23 [facility] ----- LADI BYERS ([id number]) 1985 F Date Time Provider Department 04/09/23 REUBEN AGRAWAL During your visit today, we recorded the following information about you: Lauren Hernandez MA 04/09/2023 3:56 PM Signed Just sent over a request for medical records for [facility]. Lauren Hernandez MA April 09, 2023 3:56 [...] Student - Fully Assessed Reason for Visit: [facility] Inpatient/Outpatient Medical Record Reque [Other] Prescriptions [...] Encounter Status:Closed by LAUREN HERNANDEZ on 04/09/23 [facility] 03-26-[address] [facility] ----- LADI BYERS ([id number]) 1985 F Date Time Provider Department 03/26/23 [facility] During your visit today, we recorded the [...] for Visit: Patient Update [1234] Patient Question [7977] Orders [681] Order(s):gabapentin (NEURONTIN) 100 mg capsuleTake [...] Encounter Status:Closed by ZORAIDA VALLE on 03/26/23 [facility] CNOVon 03-05-2023 CNOV Office Visit (NEUS ) ----- LADI BYERS ([id number]) 1985 F Date Time Provider Department 03/05/23 11:00 AM TRISTAN GUALLPA During your visit today, we recorded the following information about you: Temperature Pulse Blood pressure Weight 98.8 degrees 99/minute 132/91 54.4 kg Tristan Guallpa MD 03/10/2023 10:24 PM Signed Impression: This is Ms. Ladi Byers, a 38 year old female who presents to the [facility] Neurology clinic for follow up. New complaints [...] care. Tristan Guallpa MD Staff, [facility] [place] HPI: This is Ms. Ladi Byers, a 38 year old female who presents to the [facility] Neurology clinic for follow up. Review: Just seen by virtual visit 02/26/2023. This is Ms. Ladi Byers, a 38 year old female who presents to the [facility] Neurology clinic for follow up. 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 Normal [facility] Office Visiton 03-04-2023 Follow-up visit [id number] Ariadne Byers 1985 F Date Provider Department Center 03/04/2023 [id number] VALENCIA CARD [facility] No family history on file Level of Service:63915 SD OFFICE/OUTPATIENT ESTABLISHED MOD MDM 30-39 MIN Normal [facility] CNPNon 03-02-2023 CNPN Telephone (NIQ) ----- LADI BYERS ([id number]) 1985 F Date Time Provider Department 03/02/23 TRISTAN GUALLPA NICece During your visit today, we recorded the following information about you: Corina Osman 03/02/2023 10:08 AM Signed Received Attending Physician Statement by fax from [facility]. Scanned to patient's chart for review. Allergies [...] Encounter Status:Closed by CORINA OSMAN on 08/05/23 [facility] ----- LADI BYERS ([id number]) 1985 F Date Time Provider Department 03/02/23 TRISTAN GUALLPA During your visit today, we recorded the following information about you: Corina Osman 03/02/2023 8:56 AM Signed Received PT Recertification addendum by fax from [facility]. Scanned to patient's chart for provider review. Genaro Vee RN 03/02/2023 9:[address] Guallpa aware of outside medical records available in scanned documents Genaro Vee ELEMENTARY ASSISTANT TEACHER [facility] [place] Allergies As of Date: 03/02/2023 Noted Allergy [...] 01/22/2004 Encounter Status:Closed by CORINA OSMAN on 03/10/23 [facility]NEAD[facility] ----- LADI BYERS ([id number]) 1985 F Date Time Provider Department 02/22/23 TRISTAN GUALLPA NEMEGANFV During your visit today, we recorded the following information about you: Jr Mark 02/22/2023 2:33 PM Signed Received a fax from [facility] requesting a physician signature on a P.T. recertification dated 02/19/23. Scanned into [employer]. Genaro Vee RN 02/22/2023 2:[address] Ramu Vee ELEMENTARY ASSISTANT TEACHER [facility] [place] Jr Mark 03/01/2023 11:59 AM Signed Kodi from [facility] calling to see if the provider could sign and fax back the recertification ZACH. She can be reached at [phone] if any questions. Genaro Vee RN 03/01/2023 12:[address] Ramu Vee RN BSN [facility] [place] Genaro Vee RN 03/01/2023 2:01 PM Signed Keven Mariee at [facility] Explained that Dr Guallpa and pt had a discussion that pt's PCP would order the aquatherapy Per her request I faxed office note from Dr Guallpa attn Kodi [phone] Genaro Vee RN BSN [facility] [place] Allergies As of Date: 02/22/2023 Noted Allergy [...] 01/22/2004 HEADACHE [R51] 01/22/2004 Encounter Status:Closed by ETHANMARKHALEY العراقي on 05/11/23 [facility] US Pelvis Non-OB Completeon 02-08-2023 US Pelvis Non-OB [...] Yury Ho DO Transcribed by: DEEPTHI Technologist: MEGAN Technical Comments Transabdominal Ultrasound Performed Transvaginal Ultrasound Performed Uterus Position Anteverted [facility] US Transvaginal Non-OBon US Transvaginal Non-OB Exam Date/Time: 02/04/2023 13:40 EDT Reason for Exam: Pelvic pain Report Please see ultrasound pelvis non-OB complete report. Ordering Provider: Jimmie Barkley FINAL REPORT Dictated: 02/08/2023 11:58 am Yury Ho DO Signed (Electronic Signature): 02/08/2023 11:58 am Signed by: Yury Ho DO Transcribed by: DEEPTHI Technologist: AD [facility] Consent for Treatmenton 08-0 Consent for Treatment [id number]:12 7 [facility] Consent for Treatmenton -3 Consent for Treatment [id number]:12 7 [facility] Consent for Treatment [id number]:12 7 [facility] Physician Orderon 01-28-2023 Physician Order [id number]:12 7 [facility] CNPN Telephone (NEADFV) ----- LADI BYERS ([id number]) 1985 F Date Time Provider Department 01/01/23 TRISTAN GUALLPA NEADFV During your visit today, we recorded the following information about you: Janel Villagomez 01/01/2023 4:13 PM Signed Received call from SARITHA Arguello at [facility], who has concerns about new symptoms patients is having. She would like to speak to either nurse or provider regarding this. Saundra Harman [phone] ok to leave message Genaro Vee, RN 01/01/2023 4:56 PM Signed Called Saundra [phone] She reports she evaluated pt last week [...] any further therapy with pt Genaro Vee RN BSN [facility] [place] Allergies As of Date: 01/01/2023 Noted Allergy [...] Encounter Status:Closed by JANEL VILLAGOMEZ on 01/13/23 [facility] Discharge Instructionson Discharge Instructions [id number]#[id number]:1 27 Normal [facility] ED Clinical Summaryon 2022 ED Clinical Summary (Inserted Image. Natalya ble to display) [address] [address] ED Clinical Summary Person Information Name: LADI BYERS [place] Age: 37 Years : 1985 Sex: Female Language: Bangladeshi PCP: TERESA PATEL CNP Marital Status: Single [...] 12/24/2022 01:12:18 12/24/2022 01:12:18 12/24/2022 01:12:18 ADDRESS: [facility] [place] ID [id number] PHYS DOC NOTES: MEDICAL INFORMATION: Prescriptions Given: New Medications [id number], [address], [place] [id number], [phone] dicyclomine (Bentyl 10 mg Cap) 1 Capsules By Mouth 4 times a day as needed Other (see comment). For abdominal cramping. Refills: 0. potassium chloride (potassium chloride 20 mEq ER Tab) 1 Tablets By Mouth every day for 5 Days. Refills: 0. Medications to Continue Taking That Have Changed [facility] [id number], [address], [place] [id number], [phone] START: promethazine (Phenergan 25 mg Supp) 1 [...] every da (more content not included)... Normal [facility] ED Note-Physicianon 12-25-19 ED Note-Physician [...] She reports that she has seen a nipple machine operator for this in the past. My recommendation was she discussed with them debora (more content not included)... Normal [facility] Comment on above: Result Comment: [...] ? Antihistamines. ? Medicines for migraines. ? Butf-zpo-ghnqiby pain medicine. ? Over-the counter diet supplements. Severe nausea and vomiting may require you to stay at the hospital. You may need IV fluids to prevent or treat dehydration. Follow these instructions at home: During an episode ? Take cdhx-nzk-bgzxajq and prescription medicines only as told by [...] avoid spicy or fatty foods, such as puerto rican fries and pizza. General instructions ? Monitor [...] tears while (more content not included)... Normal [facility] ED Patient Summaryon 023 ED Patient Summary (Inserted Image. Natalya ble to display) [address] [address] Patient Discharge Instructions Person Information Name: LADI BYERS Age: 37 Years Arrival Date: 12/23/2022 19:36:32 Discharge Diagnosis: Cyclical vomiting; Marijuana use; Prolonged QT interval Primary Care Physician: TERESA PATEL CNP Provider Information Primary Provider: Silas Durant DO Advanced Middleware Systems Architect:Jake The exam and treatment you received in the Emergency Department were for an urgent problem and are not intended as complete care. It is important that you follow up with a doctor, nurse practitioner, or physician?s administrative library assistant for ongoing care. If your symptoms become worse or you do not improve as expected and you are unable to reach your usual health care provider, you should return to the Emergency Department. We are available 24 hours a day. LADI BYERS has been given the following list of patient education materials, prescriptions and follow-up instructions: Follow-up Instructions: With: Address: When: Vito ROBERTSON [address] [place], [place] [id number] Business (1) In 3 days 12/27/2022 Comments: Call to discuss your ongoing cyclic vomiting. Abstain from marijuana for 6 months to determine if this may be the cause. Take antinausea meds only as prescribed. There is increased risk of these medications for you given your prolonged QTc. Only take 1 antiemetic at this time. Follow-up with your nipple machine operator to discuss your QTc prolongation further. With: Address: Laura: TERESA PATEL [address] [place] [phone] [facility] (1) In 3 days 12/27/2022 Comments: Call [...] opioids can be used to help relieve wnzyjwfz-nx-defkka pain and are often prescribed following a [...] ? Some (more content not included)... Normal [facility] Monitor Recordon 12-24-2022 Monitor Record [id number]:1 27 Normal [facility] U Drug Screenon 12-24-2022 Tetrahydrocannabinol Screen method >50 ng/mL Ql (U) Positive Abnormal Negative [facility] Comment on above: Result Comment: Nega tive Cutoff: <50 ng/mL Performed By: #### 2 765329 ####[facility] [address] [place] [address] Amphetamines Screen method >1000 ng/mL Ql (U) Negative Normal Negative [facility] Comment on above: Result Comment: Nega tive Cutoff: <1000 ng/mL Performed By: #### 2 296518 ####[facility] [address] [place] [address] Barbiturates Screen Ql (U) Negative Normal Negative [facility] Comment on above: Result Comment: Nega tive Cutoff: <200 ng/mL Performed By: #### 2 922181 ####[facility] [address] [place] [address] Benzodiazepines Ql (U) Negative Normal Negative Fi [facility] Comment on above: Result Comment: Nega tive Cutoff: <200 ng/mL Performed By: #### 2 180737 ####[facility] [address] [place] [address] Cocaine Ql (U) Negative Normal Negative [facility] Comment on above: Result Comment: Nega tive Cutoff: <300 ng/mL Performed By: #### 2 905993 ####[facility] [address] [place] [address] Opiates Screen Ql (U) Negative Normal Negative [facility] Comment on above: Result Comment: Nega tive Cutoff: <300 ng/mL Performed By: #### 2 924313 ####[address] [address] Phencyclidine Screen method >25 ng/mL Ql (U) Negative Normal Negative [facility] Comment on above: Result Comment: Nega tive Cutoff: <25 ng/mL These drug screen results are to be used for medical (i.e., treatment) purposes only. Unconfirmed drug screening results must not be used for non-medical purposes (e.g., employment testing, legal testing). Performed By: #### 2 991482 ####[address] [address] UA With Cult Reflexon 2022 Bilirubin Ql (U) Negative Normal Negative [facility] Comment on above: Performed By: #### 1 [id number] ####[address] [address] Clarity (U) CLEAR Normal Clear [facility] Comment on above: Performed By: #### 1 3275546 ####[address] [address] Color (U) YELLOW Normal Yellow [facility] Comment on above: Performed By: #### 1 5829899 ####[address] [address] Crystals LM Ql (Urine sed) Present Normal [facility] Comment on above: Performed By: #### 1 2915131 ####[address] [address] Epithelial cells.squamous LM.HPF (Urine sed) [#/Area] 0-2 Normal 0-2 [facility] Comment on above: Performed By: #### 1 3377572 ####[address] [address] Glucose Test strip (U) [Mass/Vol] Negative Normal Negative [facility] Comment on above: Performed By: #### 1 7630343 ####[address] [address] Hemoglobin Ql (U) Negative Normal Negative [facility] Comment on above: Performed By: #### 1 0177603 ####[address] [address] Ketones (U) [Mass/Vol] 1+ Abnormal Negative [facility] Comment on above: Performed By: #### 1 0522932 ####[address] [address] Coleridge.plasma/Coleridge .RBC (Bld) [Mass ratio] 0-3 Normal 0-3 [facility] Comment on above: Performed By: #### 1 1497870 ####[address] [address] Nitrite Ql (U) Negative Normal Negative [facility] Comment on above: Performed By: #### 1 8702123 ####[address] [address] pH (U) 8.5 [pH] Invalid Interpretation Code 5.0-9.0 [facility] Comment on above: Performed By: #### 1 2470383 ####[address] [address] Protein (U) [Mass/Vol] 1+ Abnormal Negative [facility] Comment on above: Performed By: #### 1 3988104 ####[address] [address] Specific gravity (U) [Rel density] 1.010 Invalid Interpretation Code 1.005-1.030 [facility] Comment on above: Performed By: #### 1 7710934 ####[address] [address] Type of Urine collection method Clean Catch Normal [facility] Comment on above: Performed By: #### 1 8586555 ####[address] [address] Urobilinogen Qn (U) 0.2 {Patty'U}/dL Normal 0.0-1.0 [facility] Comment on above: Performed By: #### 1 2188145 ####[facility] [address] [place] [address] WBC Auto Ql (U) Negative Normal Negative [facility] Comment on above: Performed By: #### 1 3158771 ####[facility] [address] [place] [address] WBC LM.HPF (Urine sed) [#/Area] 0-5 Normal 0-5 [facility] Comment on above: Performed By: #### 1 2056772 ####[facility] [address] [place] [address] Auto Diffon 12-23-2022 Basophils/100 WBC (Bld) 1.0 % Normal 0.0-2.0 [facility] Comment on above: Order Comment: Order Added by Discern Expert. Performed By: #### 2 828676, 38413829, 07878172, 6813954, 1581798, 9554637, 5667204, 2550027 ####[address] [address] Basophils/Leukocytes Auto (Bld) [Pure # fraction] 0.1 E9/L Normal 0.0-0.2 [facility] Comment on above: Order Comment: Order Added by Discern Expert. Performed By: #### 2 905791, 12806886, 79154878, 3861568, 7228968, 3824454, 6213338, 7169292 ####[facility] [address] [place] [address] Eosinophils/100 WBC (Bld) 0.2 % Normal 0.0-8.0 [facility] Comment on above: Order Comment: Order Added by Discern Expert. Performed By: #### 2 445287, 27735748, 38116095, 8717935, 8538592, 7813955, 8449632, 8195164 ####[facility] [address] [place] [address] Eosinophils/Leukocytes Auto (Bld) [Pure # fraction] 0.0 E9/L Normal 0.0-0.5 [facility] Comment on above: Order Comment: Order Added by Ke Expert. Performed By: #### 2 286644, 46229036, 76041107, 1855122, 6662702, 0917716, 5061559, 2666179 ####[facility] [address] [place] [address] Lymphocytes/100 WBC (Bld) 20.2 % Normal 14.0-50.0 [facility] Comment on above: Order Comment: Order Added by Discern Expert. Performed By: #### 2 319409, 47473294, 70644364, 4034102, 5084874, 8158977, 6720327, 7707812 ####[address] [place] [address] Lymphocytes/Leukocytes Auto (Bld) [Pure # fraction] 2.0 E9/L Normal 1.0-4.0 [facility] Comment on above: Order Comment: Order Added by Ke Expert. Performed By: #### 2 953445, 55931917, 01990074, 1765031, 4229319, 1442647, 7615367, 6148742 ####[address] [address] Monocytes/100 WBC (Bld) 4.2 % Normal 4.0-14.0 [facility] Comment on above: Order Comment: Order Added by Ke Expert. Performed By: #### 2 948666, 75134416, 70065709, 4440964, 5546261, 9300361, 1441144, 3959942 ####[address] [place] [address] Monocytes/Leukocytes Auto (Bld) [Pure # fraction] 0.4 E9/L Normal 0.2-1.0 [facility] Comment on above: Order Comment: Order Added by Ke Expert. Performed By: #### 2 623075, 15442318, 21375475, 3263515, 6106004, 0353615, 8873712, 5998526 ####[address] [address] Neutrophils/100 WBC (Bld) 74.4 % Normal 36.0-75.0 [facility] Comment on above: Order Comment: Order Added by Discern Expert. Performed By: #### 2 691590, 42639429, 47457274, 9451983, 9465834, 5197156, 9859178, 6180278 ####[facility] [address] [place] [address] Neutrophils/Leukocytes Auto (Bld) [Pure # fraction] 7.3 E9/L Normal 2.0-7.5 [facility] Comment on above: Order Comment: Order Added by Discern Expert. Performed By: #### 2 092554, 66760575, 31831887, 6001480, 8065005, 9166389, 4963360, 0423104 ####[facility] [address] [place] [address] B hCG Qualon 12-23-2022 Beta hCG Ql Negative Normal [facility] Comment on above: Performed By: #### 2 323143, 13300860, 73858813, 7118273, 1879981, 5656976, 5623613, 5206490 ####[facility] [address] [place] [address] BMPon 12-23-2022 Creatinine [Mass/Vol] 0.6 mg/dL Normal 0.5-1.3 [facility] Comment on above: Performed By: #### 2 165345, 80078862, 26413734, 5119590, 9792446, 5127146, 1625276, 7752803 ####[facility] [address] [place] [address] Urea nitrogen [Mass/Vol] 7 mg/dL Normal 5-21 [facility] Comment on above: Performed By: #### 2 352039, 42687544, 91824370, 1349147, 9573751, 2320033, 9459216, 4307579 ####[facility] [address] [place] [address] Urea nitrogen/Creatinine [Mass ratio] 12 No Units Normal 10-20 [facility] Comment on above: Performed By: #### 2 589911, 63368753, 74705782, 9027663, 0916730, 1820334, 0377860, 2124166 ####[facility] [address] [place] [address] Anion gap [Moles/Vol] 14 mmol/L Normal 6-16 [facility] Comment on above: Performed By: #### 2 418761, 28173855, 18474227, 8052754, 9767893, 7656668, 8927006, 9665182 ####[facility] [address] [place] [address] Calcium [Mass/Vol] 9.5 mg/dL Normal 8.9-11.1 [facility] Comment on above: Performed By: #### 2 220207, 64373084, 45544022, 9441814, 7406007, 9971556, 9088258, 9634648 ####[facility] [address] [place] [address] Chloride [Moles/Vol] 102 mmol/L Normal 101-111 [facility] Comment on above: Performed By: #### 2 051331, 24241771, 87258645, 4589972, 8519696, 2543052, 8710743, 1093798 ####[facility] [address] [place] [address] CO2 [Moles/Vol] 28 mmol/L Normal 21-31 [facility] Comment on above: Performed By: #### 2 701187, 20137542, 63030816, 2587230, 5889469, 5828159, 0933834, 8222612 ####[facility] [address] [place] [address] Glucose [Mass/Vol] 105 mg/dL Normal 55-199 [facility] Comment on above: Result Comment: If t his glucose result represents a fasting glucose, interpretation should refer to the following reference range: 55-99 mg/dL Performed By: #### 2 540639, 62273051, 96538937, 0571939, 1854646, 0389795, 2183357, 9629480 ####[facility] [address] [place] [address] Potassium [Moles/Vol] 3.1 mmol/L Low 3.5-5.3 [facility] Comment on above: Performed By: #### 2 205707, 45868263, 86050826, 2068779, 1592507, 6881086, 2519226, 2678328 ####[facility] [address] [place] [address] Sodium [Moles/Vol] 141 mmol/L Normal 135-145 [facility] Comment on above: Performed By: #### 2 937547, 50648514, 06134483, 7963508, 3382559, 5659495, 4685434, 8346564 ####[address] [place] [address] CBC w/ Auto Diffon 3 Erythrocyte distribution width (RBC) [Ratio] 13.6 % Normal 10.9-14.2 [facility] Comment on above: Performed By: #### 2 949956, 10925741, 47805598, 5810330, 5323620, 1846579, 2843131, 2975722 ####[address] [place] [address] Hematocrit (Bld) [Volume fraction] 47.1 % High 34.0-46.0 [facility] Comment on above: Performed By: #### 2 987133, 36467988, 53127287, 6115955, 3913156, 8934037, 5634962, 7912236 ####[address] [place] [address] Hemoglobin (Bld) [Mass/Vol] 16.6 g/dL High 12.0-16.0 [facility] Comment on above: Performed By: #### 2 295428, 88477211, 84012896, 0517868, 9702773, 0090927, 4686636, 1292426 ####[place] [address] [address] MCH (RBC) [Entitic mass] 34.9 pg High 27.0-34.0 [facility] Comment on above: Performed By: #### 2 979199, 89133174, 55426718, 4923258, 8627025, 8464741, 7023454, 0393162 ####[address] [address] MCHC (RBC) [Mass/Vol] 35.2 g/dL Normal 31.4-36.0 [facility] Comment on above: Performed By: #### 2 721257, 61326902, 53251117, 5610545, 1757345, 1074475, 2384737, 4443094 ####[place] [address] MCV (RBC) [Entitic vol] 99.1 fL Normal 80.0-100.0 [facility] Comment on above: Performed By: #### 2 086995, 48568951, 86867429, 1596976, 7803257, 4311637, 0824410, 1211516 ####[address] [address] Platelet mean volume (Bld) [Entitic vol] 7.7 fL Normal 6.4-10.8 [facility] Comment on above: Performed By: #### 2 674510, 05882534, 74238804, 3300798, 2426220, 2971905, 9039676, 8887333 ####[address] [address] Platelets (Bld) [#/Vol] 294.0 E9/L Normal 150.0-500.0 [facility] Comment on above: Performed By: #### 2 579474, 11858124, 84404380, 6530564, 0096532, 0569784, 3042734, 2567918 ####[address] [address] RBC (Bld) [#/Vol] 4.8 E12/L Normal 4.3-5.9 [facility] Comment on above: Performed By: #### 2 119130, 24570643, 88603773, 0168923, 5355147, 4328150, 7310283, 9657311 ####[facility] [address] [place] [address] WBC corrected for nucl RBC Auto (Bld) [#/Vol] 9.8 E9/L Normal 4.0-11.0 [facility] Comment on above: Performed By: #### 2 196565, 77385021, 77458052, 0843962, 9350604, 3835453, 7007507, 9084980 ####[facility] [address] [place] [address] CHEMISTRYOrdered By: SYSTEM SYSTEM on 12-23-2022 Amphetamines [...] mg/dL FT Remisol GFR/1.73 sq M.predicted among non-blacks MDRD (S/P/Bld) [Vol rate/Area] 118 mL/min/1.73 m2 Normal >=59mL/min/ 1.73 m2 [facility] S Globulin (S) [Mass/Vol] 3.2 g/dL Normal 1.4 - 4.0 gm/dL [facility] Remisol Glucose [Mass/Vol] 105 mg/dL Normal 55 - 199 mg/dL [facility] Remisol Lipase [Catalytic activity/Vol] 32 U/L Normal 13 - 58 unit/L [facility]isol Magnesium [Mass/Vol] 2.2 mg/dL Normal 1.3 - 2 .4 mg/dL [facility] Potassium [Moles/Vol] 3.1 mmol/L Low 3.5 - 5.3 mmol/L [facility] Protein [Mass/Vol] 7.8 g/dL Normal 6.0 - 7.8 gm/dL [facility] Sodium [Moles/Vol] 141 mmol/L Normal 135 - 145 mmol/L [facility] Urea nitrogen [Mass/Vol] 7 mg/dL Normal 5 - 21 mg/dL [facility] Urea nitrogen/Creatinine [Mass ratio] 12 mg/mg Normal 10 - 20 [facility] Remisol Consent for Treatmenton 12-04 Consent for Treatment [id number]:12 7 Normal [facility] ED Note-Nursingon 12-23-2022 ED Note-Nursing [...] is back on ED cart and on clinical research monitor. Normal [facility] HEMATOLOGYOrdered By: SYSTEM SYSTEM on 12-23-2022 Basophils/100 WBC (Bld) 1.0 % Normal 0.0 - 2.0 % [facility] [...] 7.3 E9/L Normal 2.0 - 7.5 E9/L FT HemeAutoSS HEMATOLOGYOrdered By: Archie Hackett on 12-23-2022 Erythrocyte distribution width (RBC) [Ratio] 13.6 % Normal 10.9 - 14.2 % FT HemeAutoSS Hematocrit (Bld) [Volume fraction] 47.1 % High 34.0 - 46.0 % FT HemeAutoSS Hemoglobin (Bld) [Mass/Vol] 16.6 g/dL High 12.0 - 16.0 gm/dL FT HemeAutoSS MCH (RBC) [Entitic mass] 34.9 pg High 27.0 - 34.0 pg [facility] HemeAutoSS MCHC (RBC) [Mass/Vol] 35.2 g/dL Normal 31.4 - 36.0 gm/dL [facility] HemeAutoSS MCV (RBC) [Entitic vol] 99.1 fL Normal 80.0 - 100.0 fL [facility] HemeAutoSS Platelet mean volume (Bld) [Entitic vol] 7.7 fL Normal 6.4 - 10.8 fL FT HemeAutoSS Platelets (Bld) [#/Vol] 294.0 E9/L Normal 150.0 - 500.0 E9/L FT HemeAutoSS RBC (Bld) [#/Vol] 4.8 E12/L Normal 4.3 - 5.9 E12/L FT HemeAutoSS WBC corrected for nucl RBC Auto (Bld) [#/Vol] 9.8 E9/L Normal 4.0 - 11.0 E9/L FT HemeAutoSS Hep Func Panelon 12-23-2022 Albumin [Mass/Vol] 4.6 g/dL Normal 3.3-5.0 [facility] Comment on above: Performed By: #### 2 209588, 43441155, 97922445, 3263402, 2477035, 9373806, 8048695, 4044444 ####[facility] [address] [place] [address] Albumin/Globulin (S) [Mass conc ratio] 1.4 Normal 1.1-2.2 [facility] Comment on above: Performed By: #### 2 483524, 32820761, 88880439, 4868943, 1962467, 9864542, 9443438, 9879467 ####[address] [place] [address] ALP [Catalytic activity/Vol] 78 Int._Unit/L Normal 21-98 [facility] Comment on above: Performed By: #### 2 974998, 27038801, 34418113, 2922932, 6371566, 7646583, 5367888, 0693658 ####[address] [address] ALT No additional P-5'-P [Catalytic activity/Vol] 41 Int._Unit/L Normal 6-46 [facility] Comment on above: Performed By: #### 2 979759, 35185978, 16010536, 8030559, 3956981, 4286729, 1919489, 1161458 ####[place] [address] AST [Catalytic activity/Vol] 59 Int._Unit/L High 5-43 [facility] Comment on above: Performed By: #### 2 551646, 96704098, 30727883, 2961535, 1852582, 1652967, 7425665, 8600371 ####[address] [address] Bilirubin [Mass/Vol] 0.9 mg/dL Normal 0.0-1.1 [facility] Comment on above: Performed By: #### 2 537970, 88765071, 44120283, 3875090, 0293097, 3664324, 6897366, 0043359 ####[address] [address] Bilirubin.direct [Mass/Vol] 0.1 mg/dL Normal 0.1-0.4 [facility] Comment on above: Performed By: #### 2 611148, 78568729, 09925972, 2764394, 6624947, 0167419, 7401007, 3650741 ####[facility] [address] [place] [address] Bilirubin.indirect [Mass or moles/Vol] 0.8 mg/dL Normal 0.1-0.9 [facility] Comment on above: Performed By: #### 2 157415, 01308677, 67963535, 4534875, 5174891, 9077177, 8226350, 9031867 ####[facility] [address] [place] [address] Globulin (S) [Mass/Vol] 3.2 g/dL Normal 1.4-4.0 [facility] Comment on above: Performed By: #### 2 873103, 19981091, 27049627, 8758229, 9776951, 3400833, 4225359, 9152301 ####[facility] [address] [place] [address] Protein [Mass/Vol] 7.8 g/dL Normal 6.0-7.8 [facility] Comment on above: Performed By: #### 2 177948, 33795068, 30058893, 8733835, 3156041, 1770647, 4068238, 1735034 ####[address] [place] [address] Lipase Levelon 12-23-2022 Lipase [Catalytic activity/Vol] 32 U/L Normal 13-58 [facility] Comment on above: Performed By: #### 2 760016, 76720778, 80640313, 3833627, 6637309, 6984546, 7843789, 4368580 ####[facility] [address] [place] [address] Magnesiumon 12-23-2022 Magnesium [Mass/Vol] 2.2 mg/dL Normal 1.3-2.4 [facility] Comment on above: Performed By: #### 2 138892, 35392614, 74909594, 8577840, 6072889, 2704128, 0166797, 6751066 ####[facility] [address] [place] [address] SEROLOGYOrdered By: Micky sebastian on 12-23-2022 Beta hCG Ql Negative (12/23/22 8:13 PM) Normal [facility] URINALYSISOrdered By: Micky isaacs on [...] Interpretation Code Negative [facility] UA Auto SS Coleridge.plasma/Coleridge .RBC (Bld) [Mass ratio] 0-3 /HPF Normal [...] Desc Clean Catch (12/23/22 9:58 PM) Normal [facility] UA Auto SS Urobilinogen Qn (U) 0.1468879 {Patty'U}/dL Normal 0.0 - 1.0 EU/dL [facility] UA Auto SS WBC Auto Ql (U) Negative (12/23/22 9:58 PM) Normal Negative FT UA Auto SS WBC LM.HPF (Urine sed) [#/Area] 0-5 /HPF Normal 0-5/HPF [facility] UA Auto SS eGFRon 12-23-2022 GFR/1.73 sq M.predicted among non-blacks MDRD (S/P/Bld) [Vol rate/Area] 118 mL/min/1.73 m2 Normal >=59 [facility] Comment on above: Order Comment: Order added by Discern Expert. Result Comment: Trimming Cutter Machine lanette kidney disease could be indicated at eGFR's of less than 60 mL/min/1.73m2. Kidney failure is indicated at less than 15 mL/min/1.73m2. Performed By: #### 2 833252, 65642164, 15232307, 8393984, 6740391, 4571518, 0462843, 9113149 ####[facility] [facility] [id number] [place] [address] CHEMISTRYOrdered By: SYSTEM SYSTEM on 11-07-2022 Anion [...] 114 mL/min/1.73 m2 Normal >=59mL/min/ 1.73 m2 [facility] Chem S Glucose [Mass/Vol] 78 mg/dL Normal [...] 10 - 20 [facility] Remisol HEMATOLOGYOrdered By: mSchool SYSTEM on 11-07-2022 Basophils/100 WBC (Bld) 0.2 [...] Result UD_AMPH:POS Called to ESTEBAN CORDON AT by NORBERT AVERY And Read Back For [...] Result UD_THC:POS Called to ESTEBAN CORDON AT by NORBERT AVERY And Read Back For [...] 97 mL/min/1.73 m2 Normal >=59mL/min/ 1.73 m2 [facility] Chem S Globulin (S) [Mass/Vol] 3.4 g/dL [...] [facility] Remisol HEMATOLOGYOrdered By: SYSTEM SYSTEM on 11-06-2022 Basophils/100 WBC (Bld) 0.2 [...] hCG Ql Negative (11/06/22 3:05 PM) Normal [facility] URINALYSISOrdered By: Liu Schmidt on [...] Interpretation Code Negative [facility] UA Auto SS Coleridge.plasma/Coleridge .RBC (Bld) [Mass ratio] 0-3 /HPF Normal [...] [facility] UA Auto SS Urobilinogen Qn (U) [id number] {Patty'U}/dL Normal 0.0 - 1.0 EU/dL [facility] [...] Normal >=59mL/min/ 1.73 m2 [facility] Chem S Globulin (S) [Mass/Vol] 2.9 g/dL [...] 11. 1 mg/dL [facility] Remisol Chloride [Moles/Vol] 97 mmol/L Low 101 [...] - 4.0 gm/dL [facility] Remisol Glucose [Mass/Vol] 98 mg/dL Normal 55 - 199 mg/dL [facility] Remisol Lipase [Catalytic activity/Vol] 32 U/L Normal 13 - 58 unit/L [facility] Remisol Potassium [Moles/Vol] 3.1 mmol/L Low 3.5 - 5.3 mmol/L [facility] Remisol Protein [Mass/Vol] 8.3 g/dL High 6.0 - 7.8 gm/dL [facility] Remisol Sodium [Moles/Vol] 133 mmol/L Low 135 - 145 mmol/L [facility] Remisol Urea [...] - 11.0 E9/L [facility] HemeAutoSS Covid-19 PCR ([facility]on 05-05 SARS-CoV-2 (COVID-19) RNA SAMAN+probe Ql (Unsp spec) Not detected Normal NOT DETECTED [facility] Comment on above: Result Comment: This test is not yet approved or cleared by the [place] FDA. When there are no FDA-approved or cleared tests available, and other criteria are met, FDA can make tests available under an emergency access mechanism called an Emergency Use Authorization (EUA). The EUA for this test is supported by the [place] of Health and Human Service's (HHS's) declaration [...] with SARS-CoV-2. Performed By: #### C MP, [facility] #### [facility] [address] [place] [address] Dr. Kingsley Bautista INFLUENZA A AND B AGon 05-18 [facility] SEE BELOW Normal [facility] Comment on above: Result Comment: Nega tive for Flu A protein angiten. Infection due to Flu A cannot be ruled out. Flu A angiten in the sample may be below the detection limit of the test. Performed By: #### I NFLUAB #### [facility] [address] [place] [address] Dr. Kingsley Bautista INFLUBNEG SEE BELOW Normal [facility] Comment on above: Result Comment: Nega tive for Flu B protein antigen. Infection due to Flu B cannot be ruled out. Flu B antigen in the sample may be below the detection limit of the test. Performed By: #### I NFLUAB #### [facility] [address] [place] [address] Dr. Kingsley Bautista INFLUENZA A AG Negative Normal NEGATIVE SEE COMMENT [facility] Comment on above: Performed By: #### I NFLUAB #### [facility] [address] [place] [address] Dr. Kingsley Bautista INFLUENZA B AG Negative Normal NEGATIVE SEE COMMENT [facility] Comment on above: Performed By: #### I NFLUAB #### [facility] [address] [place] [address] Dr. Kingsley Bautista INTERNAL CONTROLS Within Normal Limits Normal Wi thin Normal Limits [facility] Comment on above: Performed By: #### I NFLUAB #### [facility] [address] [place] [address] Dr. Kingsley Bautista GI PANEL (PCR)on 01-13-2022 Adenovirus F 40/41 Not detected Normal NOT DETECTED [facility] Comment on above: Performed By: #### G IPANEL #### [facility] [address] [place] [address] Dr. Kingsley Bautista Astrovirus Not detected Normal NOT DETECTED [facility] Comment on above: Performed By: #### G IPANEL #### [facility] [address] [place] [address] Dr. Kingsley Bautista C. Diff toxin A/B Detected Critically abnormal NOT DETECTED [facility] Comment on above: Performed By: #### G IPANEL #### [facility] [address] [place] [address] Dr. Kingsley Bautista Campylobacter Not detected Normal NOT DETECTED [facility] Comment on above: Performed By: #### G IPANEL #### [facility] [address] [place] [address] Dr. Kingsley Bautista Cryptosporidium Not detected Normal NOT DETECTED [facility] Comment on above: Performed By: #### G IPANEL #### [facility] [address] [place] [address] Dr. Kingsley Bautista Cyclos. Cayetanensis Not detected Normal NOT DETECTED [facility] Comment on above: Performed By: #### G IPANEL #### [facility] [address] [place] [address] Dr. Kingsley Bautista E. Coli O157 Not Applicable Normal Not Applicable [facility] Comment on above: Performed By: #### G IPANEL #### [facility] [address] [place] [address] Dr. Kingsley Bautista E. histolytica Not detected Normal NOT DETECTED [facility] Comment on above: Performed By: #### G IPANEL #### [facility] [address] [place] [address] Dr. Kingsley Bautista EAEC Not detected Normal NOT DETECTED [facility] Comment on above: Performed By: #### G IPANEL #### [facility] [address] [place] [address] Dr. Kingsley Bautista EIEC Not detected Normal NOT DETECTED [facility] Comment on above: Performed By: #### G IPANEL #### [facility] [address] [place] [address] Dr. Kingsley Bautista EPEC Not detected Normal NOT DETECTED [facility] Comment on above: Performed By: #### G IPANEL #### [facility] [address] [place] [address] Dr. Kingsley Bautista ETEC Not detected Normal NOT DETECTED [facility] Comment on above: Performed By: #### G IPANEL #### [facility] [address] [address] [address] Kingsley Watson Lamblia Not detected Normal NOT DETECTED [facility] Comment on above: Performed By: #### G IPANEL #### [facility] [address] [place] [address] Dr. Kingsley ALTAMIRANO CONTROLS PASSED Normal [facility] Comment on above: Performed By: #### G IPANEL #### [facility] [address] [place] [address] Dr. Kingsley CHILD HEADER GI PANEL BACTERIA Normal [facility] Comment on above: Performed By: #### G IPANEL #### [facility] [address] [place] [address] Dr. Kingsley GILLESPIE ECOLI GI PANEL DIARRHEAGEN IC E.COLI / SHIGELLA Normal [facility] Comment on above: Performed By: #### G IPANEL #### [facility] [address] [place] [address] Dr. Kingsley GILLESPIE INFO SEE BELOW Normal [facility] Comment on above: Result Comment: EAEC - Enteroaggregative E. Coli EPEC- Enteropathogenic E. Coli ETEC- Enterotoxigenic E. Coli lt/st STEC- Shigella-like toxin-producing E. Coli stx1/stx2 EIEC- Shigella/Enteroinvasive E. Coli Performed By: #### G IPANEL #### [facility] [address] [place] [address] Dr. Kingsley GILLESPIE PARASITES GI PANEL PARASITES Normal [facility] Comment on above: Performed By: #### G IPANEL #### [facility] [address] [place] [address] Dr. Kingsley GILLESPIE VIRUS GI PANEL VIRUSES Normal [facility] Comment on above: Performed By: #### G IPANEL #### [facility] [address] [address] [address] Kingsley Bautista Norovirus GI/GII Not detected Normal NOT DETECTED [facility] Comment on above: Performed By: #### G IPANEL #### [facility] [address] [place] [address] Dr. Kingsley Bautista P. Shigelloides Not detected Normal NOT DETECTED [facility] Comment on above: Performed By: #### G IPANEL #### [facility] [address] [address] [address] Kingsley Bautista Rotavirus A Not detected Normal NOT DETECTED [facility] Comment on above: Performed By: #### G IPANEL #### [facility] [address] [place] [address] Dr. Kingsley Bautista Salmonella Not detected Normal NOT DETECTED [facility] Comment on above: Performed By: #### G IPANEL #### [facility] [address] [place] [address] Dr. Kingsley Bautista Sapovirus Not detected Normal NOT DETECTED [facility] Comment on above: Performed By: #### G IPANEL #### [facility] [address] [place] [address] Dr. Kingsley Bautista STEC Not detected Normal NOT DETECTED [facility] Comment on above: Performed By: #### G IPANEL #### [facility] [address] [place] [address] Dr. Kingsley Bautista Vibrio Not detected Normal NOT DETECTED [facility] Comment on above: Performed By: #### G IPANEL #### [facility] [address] [place] [address] Dr. Kingsley Bautista Vibrio Cholera Not detected Normal NOT DETECTED [facility] Comment on above: Performed By: #### G IPANEL #### [facility] [address] [place] [address] Dr. Kingsley Bautista Y. Enterocolitica Not detected Normal NOT DETECTED [facility] Comment on above: Performed By: #### G IPANEL #### [facility] [address] [address] [address] Kingsley Bautista CHEMISTRYOrdered By: SYSTEM SYSTEM [...] - 4.0 gm/dL [facility] Remisol Glucose [Mass/Vol] 105 mg/dL Normal 55 - 199 mg/dL [facility] Remisol Lipase [Catalytic activity/Vol] 37 U/L Normal [...] Ql (Bld) Present (01/12/22 10:03 AM) Normal [facility] HemeManSS Erythrocyte distribution width (RBC) [Ratio] 21.1 % High 10.9 - 14.2 % [facility] HemeAutoSS Hematocrit (Bld) [Volume fraction] 45.0 % Normal 34.0 - 46.0 % [facility] HemeAutoSS Hemoglobin (Bld) [Mass/Vol] 15.6 g/dL Normal 12.0 - 16.0 gm/dL [facility]eAutoSS Comment on above: Result Comment: Spec imen warmed for presence of possible cold agglutinin. Results Verified By Repeat Analysis Slide reviewed by BR. MCH (RBC) [Entitic mass] 32.1 pg Normal 27.0 - 34.0 pg [facility] HemeAutoSS MCHC (RBC) [Mass/Vol] 34.7 g/dL Normal 31.4 - 36.0 gm/dL [facility] HemeAutoSS MCV (RBC) [Entitic vol] 92.5 fL Normal 80.0 - 100.0 fL [facility]eAutoSS Morphology Kirill (Bld) [Interp] See Morphology (01/12/22 10:03 AM) Normal [facility] HemeManSS Platelet mean volume (Bld) [Entitic vol] 7.7 fL Normal 6.4 - 10.8 fL [facility] HemeAutoSS Platelets (Bld) [#/Vol] 273.0 E9/L Normal 150.0 - 500.0 E9/L [facility] HemeAutoSS RBC (Bld) [#/Vol] 4.9 E12/L Normal 4.3 - 5.9 E12/L [facility] HemeAutoSS WBC corrected for nucl RBC Auto (Bld) [#/Vol] 7.2 E9/L Normal 4.0 - 11.0 E9/L [facility] HemeAutoSS HEMATOLOGYOrdered By: SYSTEM SYSTEM on 01-12-2022 Basophils/100 WBC (Bld) 0.5 % Normal 0.0 - 2.0 % [facility] [...] Path Review No significant morphological abnormalities identified.CPT 82806 Invalid Interpretation Code FT HemeManSS SEROLOGYOrdered By: Virginia tomas on 01-12-2022 Beta hCG Ql Negative (01/12/22 10:03 AM) Normal [facility] Man Sero URINALYSISOrdered By: Virginia Aguirre on [...] PM) Normal Negative [facility] UA Auto SS Coleridge.plasma/Coleridge .RBC (Bld) [Mass ratio] 0-3 /HPF Normal [...] [facility] UA Auto SS Urobilinogen Qn (U) 0.4170019 {Patty'U}/dL Normal 0.0 - 1.0 EU/dL [facility] UA Auto SS WBC Auto Ql (U) Negative (01/12/22 1:10 PM) Normal Negative [facility] UA Auto SS WBC LM.HPF (Urine sed) [#/Area] 0-5 /HPF Normal 0-5/HPF [facility] UA Auto SS NM STRESS/REST MULTIon 12-30 NM STRESS/REST MULTI Patient: LADI BYERS Exam Date: 12/30/2021 : 1985 Gender:F Ordering : TERESASHAINA PATEL [facility] Admission #: [id number] Family : Order #: [id number] CLICK HERE TO VIEW EXAM RADIOLOGY REPORT [...] MD on 12/30/2021 at 15:36 Normal [facility] CBC AUTO DIFFon 12-29-2021 BASO # 0.0 103/ul Normal 0.0-0.1 [facility] Comment on above: Performed By: #### C ANTHONY BHATTI #### [facility] [address] [address] [address] Kingsley Bautista Basophils/100 WBC (Bld) 0.3 % Normal 0.2-2.0 [facility] Comment on above: Performed By: #### C ANTHONY BHATTI #### [facility] [address] [place] [address] Dr. Kingsley Bautista EO # 0.0 103/ul Normal 0.0-0.7 [facility] Comment on above: Performed By: #### C DAVY, HERMANDM #### [facility] [address] [place] [address] Dr. Kingsley Bautista Eosinophils/100 WBC (Bld) 0.1 % Critically low 0.9-7.0 [facility] Comment on above: Performed By: #### C DAVY, HERMANDM #### [facility] [address] [place] [address] Dr. Kingsley Bautista Erythrocyte distribution width (RBC) [Ratio] 17.1 % Critically high 11.0-15.0 [facility] Comment on above: Performed By: #### C DAVY, HERMANDM #### [facility] [address] [place] [address] Dr. Kingsley Bautista Hematocrit (Bld) [Volume fraction] 44.6 % Normal 36.0-48.0 [facility] Comment on above: Performed By: #### C DAVY, CMADM #### [facility] [address] [place] [address] Dr. Kingsley Bautista Hemoglobin (Bld) [Mass/Vol] 15.1 g/dL Normal 12.0-16.0 [facility] Comment on above: Performed By: #### C DAVY, CMADM #### [facility] [address] [place] [address] Dr. Kingsley Bautista IG # 0.02 10e3/ul Normal 0.00-0.03 [facility] Comment on above: Performed By: #### C DAVY, CMADM #### [facility] [address] [place] [address] Dr. Kingsley Bautista IG % 0.3 % Normal 0.0-0.5 [facility] Comment on above: Performed By: #### C DAVY, CMADM #### [facility] [address] [place] [address] Dr. Kingsley Bautista LYMPH # 1.9 103/ul Normal 1.2-3.8 [facility] Comment on above: Performed By: #### C DAVY, CMADM #### [facility] [address] [place] [address] Dr. Kingsley Bautista Lymphocytes/100 WBC (Bld) 26.1 % Normal 20.5-60.0 [facility] Comment on above: Performed By: #### C MP, CMADM #### [facility] [address] [place] [address] Dr. Kingsley Bautista MANUAL DIFF REQ NO Normal [facility] Comment on above: Performed By: #### C MP, CMADM #### [facility] [address] [place] [address] Dr. Kingsley Bautista MCH (RBC) [Entitic mass] 31.0 pg Normal 26.7-34.0 [facility] Comment on above: Performed By: #### C MP, CMADM #### [facility] [address] [place] [address] Dr. Kingsley Bautista MCHC (RBC) [Mass/Vol] 33.9 g/dL Normal 29.9-35.2 [facility] Comment on above: Performed By: #### C DAVY, CMADM #### [facility] [address] [place] [address] Dr. Kingsley Bautista MCV (RBC) [Entitic vol] 91.6 fL Normal 81.0-99.0 [facility] Comment on above: Performed By: #### C MP, CMADM #### [facility] [address] [place] [address] Dr. Kingsley Bautista MONO # 0.5 103/ul Normal 0.3-0.8 [facility] Comment on above: Performed By: #### C MP, CMADM #### [facility] [address] [place] [address] Dr. Kingsley Bautista Monocytes/100 WBC (Bld) 6.5 % Normal 1.7-12.0 [facility] Comment on above: Performed By: #### C MP, CMADM #### [facility] [address] [place] [address] Dr. Kingsley Bautista NEUT # 4.8 103/ul Normal 1.4-6.5 [facility] Comment on above: Performed By: #### C DAVY, CMADM #### [facility] [address] [place] [address] Dr. Kingsley Bautista Neutrophils/100 WBC (Bld) 66.7 % Normal 43.0-75.0 [facility] Comment on above: Performed By: #### C DAVY, CMADM #### [facility] [address] [place] [address] Dr. Kingsley Bautista Platelet mean volume (Bld) [Entitic vol] 8.9 fL Critically low 9.5-13.5 [facility] Comment on above: Performed By: #### C DAYV, CMADM #### [facility] [address] [place] [address] Dr. Kingsley Bautista PLT 263 103/ul Normal 150-450 [facility] Comment on above: Performed By: #### C DAVY, CMADM #### [facility] [address] [place] [address] Dr. Kingsley Bautista RBC 4.87 106/ul Normal 4.20-5.40 [facility] Comment on above: Performed By: #### C DAVY, CMADM #### [facility] [address] [place] [address] Dr. Kingsley Bautista WBC 7.2 103/ul Normal 4.0-11.0 [facility] Comment on above: Performed By: #### C DAVY, CMADM #### [facility] [address] [place] [address] Dr. Kingsley Bautista LIPASEon 12-29-2021 Lipase [Catalytic activity/Vol] 142.0 U/L Normal 73.0-393.0 [facility] Comment on above: Performed By: #### E TH, BMP #### [facility] [address] [place] [address] Dr. Kingsley Bautista PROF 14(COMP METB)on Albumin [Mass/Vol] 4.1 g/dL Normal 3.4-5.0 [facility] Comment on above: Performed By: #### E TH, BMP #### [facility] [address] [place], [place] [id number] Dr. Kingsley Bautista Albumin/Globulin [Mass ratio] 1.1 {ratio} Normal [facility] Comment on above: Performed By: #### E , BMP #### [facility] [address] [place] [address] Dr. Kingsley Bautista ALP [Catalytic activity/Vol] 109 U/L Normal 46-116 [facility] Comment on above: Performed By: #### E , BMP #### [facility] [address] [place] [address] Dr. Kingsley Bautista ALT [Catalytic activity/Vol] 92 U/L Critically high 14-59 [facility] Comment on above: Performed By: #### E , BMP #### [facility] [address] [place] [address] Dr. Kingsley Bautista Anion gap [Moles/Vol] 17.4 mmol/L Normal [facility] Comment on above: Performed By: #### E , BMP #### [facility] [address] [place] [address] Dr. Kingsley Bautista AST [Catalytic activity/Vol] 123 U/L Critically high 15-37 [facility] Comment on above: Performed By: #### E , BMP #### [facility] [address] [place] [address] Dr. Kingsley Bautista Bilirubin [Mass/Vol] 1.2 mg/dL Critically high 0.2-1.0 [facility] Comment on above: Performed By: #### E , BMP #### [facility] [address] [place] [address] Dr. Kingsley Bautista Calcium [Mass/Vol] 9.3 mg/dL Normal 8.5-10.1 [facility] Comment on above: Performed By: #### E , BMP #### [facility] [address] [place] [address] Dr. Kingsley Bautista Chloride [Moles/Vol] 105 mmol/L Normal 98-107 [facility] Comment on above: Performed By: #### E , BMP #### [facility] [address] [place] [address] Dr. Kingsley Bautista CO2 [Moles/Vol] 22.1 mmol/L Normal 21.0-32.0 [facility] Comment on above: Performed By: #### E , BMP #### [facility] [address] [place] [address] Dr. Kingsley Bautista Creatinine [Mass/Vol] 0.67 mg/dL Normal 0.55-1.02 [facility] Comment on above: Performed By: #### E , BMP #### [facility] [address] [place] [address] Dr. Kingsley Bautista EGFR-AF CITIZ[place] >=60 Normal >=60 [facility] Comment on above: Performed By: #### E , BMP #### [facility] [address] [place] [address] Dr. Kingsley Bautista EGFR-NON AF CITIZEN OF [place] >=60 Normal >=60 [facility] Comment on above: Performed By: #### E , BMP #### [facility] [address] [place] [address] Dr. Kingsley Bautista Globulin (S) [Mass/Vol] 3.8 g/dL Normal [facility] Comment on above: Performed By: #### E , BMP #### [facility] [address] [place] [address] Dr. Kingsley Bautista Glucose [Mass/Vol] 101 mg/dL Normal 74-106 [facility] Comment on above: Performed By: #### E , BMP #### [facility] [address] [place] [address] Dr. Kingsley Bautista Potassium [Moles/Vol] 3.5 mmol/L Normal 3.5-5.1 [facility] Comment on above: Performed By: #### E , BMP #### [facility] [address] [place] [address] Dr. Kingsley Bautista Protein [Mass/Vol] 7.9 g/dL Normal 6.4-8.2 [facility] Comment on above: Performed By: #### E , BMP #### [facility] [address] [place] [address] Dr. Kingsley Bautista Sodium [Moles/Vol] 141 mmol/L Normal 136-145 [facility] Comment on above: Performed By: #### E TH, BMP #### [facility] [address] [place] [address] Dr. Kingsley Bautista Urea nitrogen [Mass/Vol] 6.0 mg/dL Critically low 7.0-18.0 [facility] Comment on above: Performed By: #### E TH, BMP #### [facility] [address] [place] [address] Dr. Kingsley Bautista Urea nitrogen/Creatinine [Mass ratio] 9.0 mg/mg Normal [facility] Comment on above: Performed By: #### E TH, BMP #### [facility] [address] [place] [address] Dr. Kingsley Bautista TROPONIN, HIGH SENSITIVITYon 12-29-2021 HSTROP 4.5 pg/mL Normal 4.0-51.3 [facility] Comment on above: Result Comment: CUT- OFF POINTS HAVE BEEN ESTABLISHED BASED ON THE FOURTH UNIVERSAL DEFINITIONS OF MYOCARDIAL INFARCTION. THE UPPER REFERENCE LIMIT (URL) OF TROPONIN, DEFINED THE 99TH PERCENTILE OF cTnI DISTRIBUTION IN A REFERENCE POPULATION, HAS BEEN CONFIRMED THE DECISION THRESHOLD FOR ID DIAGNOSIS. Performed By: #### E TH, BMP #### [facility] [address] [place] [address] Dr. Kingsley Bautista XR CHEST 2 Von [...] by: NELL LUNDBERG Date: 2021-12-29 09:43 Normal [facility] CHEMISTRYOrdered By: SYSTEM SYSTEM on 10-14-2021 Anion gap [Moles/Vol] 9 mmol/L Normal 6 - 16 mEq/L [facility] Remisol Calcium [Mass/Vol] 8.4 mg/dL Low 8.9 - 11. 1 mg/dL [facility] Remisol Chloride [Moles/Vol] 109 mmol/L Normal 101 - 1 11 mmol/L [facility] Remisol CO2 [Moles/Vol] 26 mmol/L Normal 21 - 31 mmol/L [facility] Remisol Creatinine [Mass/Vol] 0.7 mg/dL Normal 0.5 - 1.3 mg/dL [facility] Remisol CRP [Mass/Vol] 0.5 mg/dL Normal <=1.9mg/dL [facility] Remisol GFR/1.73 sq M.predicted among blacks MDRD (S/P/Bld) [Vol rate/Area] mL/min/1.73 m2 Normal >=59mL/min/ 1.73 m2 FT Chem S GFR/1.73 sq M.predicted among non-blacks MDRD (S/P/Bld) [Vol rate/Area] mL/min/1.73 m2 Normal >=59mL/min/ 1.73 m2 [facility] Chem S Glucose [Mass/Vol] 96 mg/dL Normal [...] 12.4 g/dL Normal 12.0 - 16.0 gm/dL [facility] HEMATOLOGYOrdered By: SYSTEM SYSTEM on 10-14-2021 [...] 10-13-2021 ABO/Rh Interp Positive Invalid Interpretation Code [facility] BB Subsection BLOOD BANKOrdered By: Archie Hackett [...] rate/Area] mL/min/1.73 m2 Normal >=59mL/min/ 1.73 m2 [facility] [facility] Globulin (S) [Mass/Vol] 3.2 g/dL [...] 0.8 % Normal 0.0 - 2.0 % [facility] [...] 34.9 g/dL Normal 31.4 - 36.0 gm/dL [facility]SS MCV (RBC) [Entitic vol] 93.7 fL Normal 80.0 - 100.0 fL [facility] Platelet mean volume (Bld) [Entitic vol] 8.0 fL Normal 6.4 - 10.8 fL [facility] Platelets (Bld) [#/Vol] 383.0 E9/L Normal 150.0 - 500.0 E9/L [facility]eAutoSS RBC (Bld) [#/Vol] 4.8 E12/L Normal 4.3 - 5.9 E12/L [facility] WBC corrected for nucl RBC Auto (Bld) [#/Vol] 11.1 E9/L High 4.0 - 11.0 E9/L [facility] CHEMISTRYOrdered By: SYSTEM SYSTEM on 10-11-2021 Anion gap [Moles/Vol] 12 mmol/L Normal 6 - 16 mEq/L [facility] [...] rate/Area] mL/min/1.73 m2 Normal >=59mL/min/ 1.73 m2 [facility] S GFR/1.73 sq M.predicted among non-blacks MDRD (S/P/Bld) [Vol rate/Area] mL/min/1.73 m2 Normal >=59mL/min/ 1.73 m2 [facility] S Glucose [Mass/Vol] 82 mg/dL Normal 55 - 199 mg/dL [facility] Potassium [Moles/Vol] 3.5 mmol/L Normal 3.5 - 5.3 mmol/L [facility] Remisol Sodium [Moles/Vol] 141 mmol/L Normal 135 - 145 mmol/L [facility] Urea nitrogen [Mass/Vol] mg/dL Normal 5 - 21 mg/dL [facility] Urea nitrogen/Creatinine [Mass ratio] Unable to Calculate Invalid Interpretation Code 10 - 20 [facility] CHEMISTRYOrdered By: SYSTEM SYSTEM on 10-10-2021 Anion gap [Moles/Vol] 9 mmol/L Normal 6 - 16 mEq/L [facility] Chloride [Moles/Vol] 109 mmol/L Normal 101 - 1 11 mmol/L [facility] CO2 [Moles/Vol] 26 mmol/L Normal 21 - 31 mmol/L [facility] Potassium [Moles/Vol] 3.2 mmol/L Low 3.5 - 5.3 mmol/L [facility] Sodium [Moles/Vol] 141 mmol/L Normal 135 - 145 mmol/L [facility] HEMATOLOGYOrdered By: SYSTEM SYSTEM on 10-10-2021 [...] [facility] Reference Laboratory Testing Ordered By: Malorie DomainUseheidy on 10-10-2021 Gastrin [Mass/Vol] 150 pg/mL High 0-115pg/mL [facility]Outs[facility] Comment on above: Result Comment: [facility] Immulite 2000 Immunochemiluminometric assay (ICMA) Values obtained with different assay methods or kits cannot be used interchangeably. Results cannot be interpreted as absolute evidence of the presence or absence of malignant disease. Performed at: [address] [id number] MD Yash Lewis BLOOD BANKOrdered By: Jules Torres on 10-09-2021 ABO/Rh Interp Positive Invalid Interpretation Code [facility] Subsection ABSC Gel Interp Negative (10/09/21 2:03 PM) Normal [facility] Subsection CHEMISTRYOrdered By: SYSTEM SYSTEM on 10-09-2021 Potassium [Moles/Vol] 3.0 mmol/L Low 3.5 - 5.3 mmol/L [facility] Anion gap [Moles/Vol] 10 mmol/L Normal 6 - 16 mEq/L [facility] Calcium [Mass/Vol] 8.0 mg/dL Low 8.9 - 11. 1 mg/dL [facility] Chloride [Moles/Vol] 103 mmol/L Normal 101 - 1 11 mmol/L [facility] CO2 [Moles/Vol] 27 mmol/L Normal 21 - 31 mmol/L [facility] Creatinine [Mass/Vol] 0.7 mg/dL Normal 0.5 - 1.3 mg/dL [facility] GFR/1.73 sq M.predicted among blacks MDRD (S/P/Bld) [Vol rate/Area] mL/min/1.73 m2 Normal >=59mL/min/ 1.73 m2 [facility] S GFR/1.73 sq M.predicted among non-blacks MDRD (S/P/Bld) [Vol rate/Area] mL/min/1.73 m2 Normal >=59mL/min/ 1.73 m2 [facility] S Glucose [Mass/Vol] 93 mg/dL Normal 55 - 199 mg/dL [facility] Magnesium [Mass/Vol] 1.3 mg/dL Normal 1.3 - 2 .4 mg/dL [facility] Sodium [Moles/Vol] 137 mmol/L Normal 135 - 145 mmol/L [facility] Urea nitrogen [Mass/Vol] 5 mg/dL Normal 5 - 21 mg/dL [facility] Urea nitrogen/Creatinine [Mass ratio] 7 mg/mg Low 10 - 20 [facility] Albumin [Mass/Vol] 4.0 g/dL Normal 3.3 - 5.0 gm/dL [facility] Albumin/Globulin [Mass ratio] 1.4 {ratio} Normal [...] rate/Area] mL/min/1.73 m2 Normal >=59mL/min/ 1.73 m2 [facility] S Globulin (S) [Mass/Vol] 2.9 g/dL Normal 1.4 - 4.0 gm/dL [facility] Remisol Glucose [Mass/Vol] 121 mg/dL Normal 55 - 199 mg/dL [facility] Remisol Lipase [Catalytic activity/Vol] 21 U/L Normal [...] 0.1 % Normal 0.0 - 2.0 % [facility] [...] [facility] Reference Laboratory Testing Ordered By: Malorie DomainUser on 10-09-2021 Calprotectin (Stl) [Mass/Mass] 19 ug/g Invalid Interpretation Code 0-120mcg/gm [facility]Outs[facility] Comment on above: Result Comment: Conc entration Interpretation Follow-Up <16 - 50 ug/g Normal None >50 -120 ug/g Borderline Re-evaluate in 4-6 weeks >120 ug/g Abnormal Repeat as clinically indicated Performed at: [facility] [id number] MD Yash Lewis Covid-19 PCR (CVDTB)on SARS-CoV-2 (COVID-19) RNA SAMAN+probe Ql (Unsp spec) Not detected Normal NOT DETECTED [facility] Comment on above: Result Comment: This test is not yet approved or cleared by the [place] FDA. When there are no FDA-approved or cleared tests available, and other criteria are met, FDA can make tests available under an emergency access mechanism called an Emergency Use Authorization (EUA). The EUA for this test is supported by the [place] of Health and Human Service's (HHS's) declaration [...] with SARS-CoV-2. Performed By: #### C DAVY, HERMANDM #### [facility] [address] [place] [address] Dr. Kingsley Bautista INFLUENZA A AND B AGon 10-03 [facility] SEE BELOW Normal [facility] Comment on above: Result Comment: Nega tive for Flu A protein angiten. Infection due to Flu A cannot be ruled out. Flu A angiten in the sample may be below the detection limit of the test. Performed By: #### C DAVY, CMADM #### [facility] [address] [place] [address] Dr. Kingsley Bautista [facility] SEE BELOW Normal [facility] Comment on above: Result Comment: Nega tive for Flu B protein antigen. Infection due to Flu B cannot be ruled out. Flu B antigen in the sample may be below the detection limit of the test. Performed By: #### C DAVY, CMADM #### [facility] [address] [place] [address] Dr. Kingsley Bautista INFLUENZA A AG Negative Normal NEGATIVE SEE COMMENT [facility] Comment on above: Performed By: #### C ANTHONY BHATTI #### [facility] [address] [place] [address] Dr. Kingsley Bautista INFLUENZA B AG Negative Normal NEGATIVE SEE COMMENT [facility] Comment on above: Performed By: #### C ANTHONY BHATTI #### [facility] [address] [place] [address] Dr. Kingsley Bautista INTERNAL CONTROLS Within Normal Limits Normal Wi thin Normal Limits [facility] Comment on above: Performed By: #### C ANTHONY BHATTI #### [facility] [address] [place] [address] Dr. Kingsley Bautista CBC AUTO DIFFon 09-27-2021 BASO # 0.0 103/ul Normal 0.0-0.1 [facility] Comment on above: Performed By: #### C BC #### [facility] [address] [place] [address] Dr. Kingsley Bautista Basophils/100 WBC (Bld) 0.2 % Normal 0.2-2.0 [facility] Comment on above: Performed By: #### C BC #### [facility] [address] [place] [address] Dr. Kingsley Bautista EO # 0.0 103/ul Normal 0.0-0.7 [facility] Comment on above: Performed By: #### C BC #### [facility] [address] [place] [address] Dr. Kingsley Bautista Eosinophils/100 WBC (Bld) 0.0 % Critically low 0.9-7.0 [facility] Comment on above: Performed By: #### C BC #### [facility] [address] [place] [address] Dr. Kingsley Bautista Erythrocyte distribution width (RBC) [Ratio] 13.4 % Normal 11.0-15.0 [facility] Comment on above: Performed By: #### C BC #### [facility] [address] [place] [address] Dr. Kingsley Bautista Hematocrit (Bld) [Volume fraction] 43.6 % Normal 36.0-48.0 [facility] Comment on above: Performed By: #### C BC #### [facility] [address] [place] [address] Dr. Kingsley Bautista Hemoglobin (Bld) [Mass/Vol] 15.1 g/dL Normal 12.0-16.0 [facility] Comment on above: Performed By: #### C BC #### [facility] [address] [place] [address] Dr. Kingsley Bautista IG # 0.03 10e3/ul Normal 0.00-0.03 [facility] Comment on above: Performed By: #### C BC #### [facility] [address] [place] [address] Dr. Kingsley Bautista IG % 0.3 % Normal 0.0-0.5 [facility] Comment on above: Performed By: #### C BC #### [facility] [address] [place] [address] Dr. Kingsley Bautista LYMPH # 1.5 103/ul Normal 1.2-3.8 [facility] Comment on above: Performed By: #### C BC #### [facility] [address] [place] [address] Dr. Kingsley Bautista Lymphocytes/100 WBC (Bld) 13.6 % Critically low 20.5-60.0 [facility] Comment on above: Performed By: #### C BC #### [facility] [address] [place] [address] Dr. Kingsley Bautista MANUAL DIFF REQ NO Normal [facility] Comment on above: Performed By: #### C BC #### [facility] [address] [place] [address] Dr. Kingsley Bautista MCH (RBC) [Entitic mass] 32.1 pg Normal 26.7-34.0 [facility] Comment on above: Performed By: #### C BC #### [facility] [address] [place] [address] Dr. Kingsley Bautista MCHC (RBC) [Mass/Vol] 34.6 g/dL Normal 29.9-35.2 [facility] Comment on above: Performed By: #### C BC #### [facility] [address] [place] [address] Dr. Kingsley Bautista MCV (RBC) [Entitic vol] 92.8 fL Normal 81.0-99.0 [facility] Comment on above: Performed By: #### C BC #### [facility] [address] [place] [address] Dr. Kingsley Bautista MONO # 0.6 103/ul Normal 0.3-0.8 [facility] Comment on above: Performed By: #### C BC #### [facility] [address] [place] [address] Dr. Kingsley Bautista Monocytes/100 WBC (Bld) 5.7 % Normal 1.7-12.0 [facility] Comment on above: Performed By: #### C BC #### [facility] [address] [place] [address] Dr. Kingsley Bautista NEUT # 9.1 103/ul Critically high 1.4-6.5 [facility] Comment on above: Performed By: #### C BC #### [facility] [address] [place] [address] Dr. Kingsley Bautista Neutrophils/100 WBC (Bld) 80.2 % Critically high 43.0-75.0 [facility] Comment on above: Performed By: #### C BC #### [facility] [address] [place] [address] Dr. Kingsley Bautista Platelet mean volume (Bld) [Entitic vol] 9.0 fL Critically low 9.5-13.5 [facility] Comment on above: Performed By: #### C BC #### [facility] [address] [place] [address] Dr. Kingsley Bautista PLT 341 103/ul Normal 150-450 [facility] Comment on above: Performed By: #### C BC #### [facility] [address] [place] [address] Dr. Kingsley Bautista RBC 4.70 106/ul Normal 4.20-5.40 [facility] Comment on above: Performed By: #### C BC #### [facility] [address] [place] [address] Dr. Kingsley Bautista WBC 11.3 103/ul Critically high 4.0-11.0 [facility] Comment on above: Performed By: #### C BC #### [facility] [address] [place] [address] Dr. Kingsley Bautista ETHANOL (BLD ALC)on 09-28-19 ALC NOTE NOTE: 80 mg/dl is e legal limit for a blood alcohol level Normal [facility] Comment on above: Performed By: #### E , BMP #### [facility] [address] [place] [address] Dr. Kingsley Bautista Ethanol [Mass/Vol] 59 mg/dL Normal [facility] Comment on above: Performed By: #### E , BMP #### [facility] [address] [place] [address] Dr. Kingsley Bautista PROF CHEM 8 (BAS METB)on Anion gap [Moles/Vol] 16.4 mmol/L Normal [facility] Comment on above: Performed By: #### E , BMP #### [facility] [address] [place] [address] Dr. Kingsley Bautista Calcium [Mass/Vol] 9.1 mg/dL Normal 8.5-10.1 [facility] Comment on above: Performed By: #### E , BMP #### [facility] [address] [place] [address] Dr. Kingsley Bautista Chloride [Moles/Vol] 102 mmol/L Normal 98-107 [facility] Comment on above: Performed By: #### E , BMP #### [facility] [address] [place] [address] Dr. Kingsley Bautista CO2 [Moles/Vol] 25.6 mmol/L Normal 22.0-30.0 [facility] Comment on above: Performed By: #### E , BMP #### [facility] [address] [place] [address] Dr. Kingsley Bautista Creatinine [Mass/Vol] 0.78 mg/dL Normal 0.52-1.04 [facility] Comment on above: Performed By: #### E , BMP #### [facility] [address] [place] [address] Dr. Kingsley Bautista EGFR-AF CITIZ[place] >60 Normal >=60 [facility] Comment on above: Performed By: #### E , BMP #### [facility] [address] [place] [address] Dr. Kingsley Bautista EGFR-NON AF CITIZEN [place] >60 Normal >=60 [facility] Comment on above: Performed By: #### E , BMP #### [facility] [address] [place] [address] Dr. Kingsley Bautista Glucose [Mass/Vol] 82 mg/dL Normal 74-106 [facility] Comment on above: Performed By: #### E , BMP #### [facility] [address] [place] [address] Dr. Kingsley Bautista Potassium [Moles/Vol] 3.0 mmol/L Critically low 3.4-5.0 [facility] Comment on above: Performed By: #### E , BMP #### [facility] [address] [place] [address] Dr. Kingsley Bautista Sodium [Moles/Vol] 140 mmol/L Normal 137-145 [facility] Comment on above: Performed By: #### E , BMP #### [facility] [address] [place] [address] Dr. Kingsley Bautista Urea nitrogen [Mass/Vol] 5.0 mg/dL Critically low 7.0-18.0 [facility] Comment on above: Performed By: #### E , BMP #### [facility] [address] [place] [address] Dr. Kingsley Bautista Urea nitrogen/Creatinine [Mass ratio] 6.4 mg/mg Normal [facility] Comment on above: Performed By: #### E , BMP #### [facility] [address] [place] [address] Dr. Kingsley Bautista CARDIAC MAURICE ADMITon 022 CK [Catalytic activity/Vol] 163 U/L Critically high 30-135 [facility] Comment on above: Performed By: #### C ANTHONY BHATTI #### [facility] [address] [place] [address] Dr. Kingsley Bautista CK.MB [Mass/Vol] 0.86 ng/mL Normal <=2.37 [facility] Comment on above: Performed By: #### C ANTHONY BHATTI #### [facility] [address] [place] [address] Dr. Kingsley Bautista HSTROP 4.2 pg/mL Normal 4.0-35.5 [facility] Comment on above: Result Comment: CUT- OFF POINTS HAVE BEEN ESTABLISHED BASED ON THE FOURTH UNIVERSAL DEFINITIONS OF MYOCARDIAL INFARCTION. THE UPPER REFERENCE LIMIT (URL) OF TROPONIN, DEFINED THE 99TH PERCENTILE OF cTnI DISTRIBUTION IN A REFERENCE POPULATION, HAS BEEN CONFIRMED THE DECISION THRESHOLD FOR ID DIAGNOSIS. Performed By: #### C ANTHONY BHATTI #### [facility] [address] [place] [address] Dr. Kingsley Bautista TREMAINE 44.0 ng/mL Normal <=61.5 [facility] Comment on above: Performed By: #### C ANTHONY BHATTI #### [facility] [address] [place] [address] Dr. Kingsley Bautista CBC AUTO DIFFon 09-09-2021 BASO # 0.0 103/ul Normal 0.0-0.1 [facility] Comment on above: Performed By: #### C ANTHONY BHATTI #### [facility] [address] [place] [address] Dr. Kingsley Bautista Basophils/100 WBC (Bld) 0.3 % Normal 0.2-2.0 [facility] Comment on above: Performed By: #### C ANTHONY BHATTI #### [facility] [address] [place] [address] Dr. Kingsley Bautista EO # 0.0 103/ul Normal 0.0-0.7 [facility] Comment on above: Performed By: #### C ANTHONY BHATTI #### [facility] [address] [place] [address] Dr. Kingsley Bautista Eosinophils/100 WBC (Bld) 0.5 % Critically low 0.9-7.0 [facility] Comment on above: Performed By: #### C DAVY, HERMANDM #### [facility] [address] [place] [address] Dr. Kingsley Bautista Erythrocyte distribution width (RBC) [Ratio] 14.1 % Normal 11.0-15.0 [facility] Comment on above: Performed By: #### C DAVY, HERMANDM #### [facility] [address] [place] [address] Dr. Kingsley Bautista Hematocrit (Bld) [Volume fraction] 42.2 % Normal 36.0-48.0 [facility] Comment on above: Performed By: #### C DAVY, HERMANDM #### [facility] [address] [place] [address] Dr. Kingsley Bautista Hemoglobin (Bld) [Mass/Vol] 14.4 g/dL Normal 12.0-16.0 [facility] Comment on above: Performed By: #### C DAVY, CMADM #### [facility] [address] [place] [address] Dr. Kingsley Bautista IG # 0.02 10e3/ul Normal 0.00-0.03 [facility] Comment on above: Performed By: #### C DAVY, HERMANDM #### [facility] [address] [place] [address] Dr. Kingsley Bautista IG % 0.3 % Normal 0.0-0.5 [facility] Comment on above: Performed By: #### C DAVY, CMADM #### [facility] [address] [place] [address] Dr. Kingsley Bautista LYMPH # 1.8 103/ul Normal 1.2-3.8 [facility] Comment on above: Performed By: #### C DAVY, CMADM #### [facility] [address] [place] [address] Dr. Kingsley Bautista Lymphocytes/100 WBC (Bld) 30.6 % Normal 20.5-60.0 [facility] Comment on above: Performed By: #### C DAVY, HERMANDM #### [facility] [address] [place] [address] Dr. Kingsley Bautista MANUAL DIFF REQ NO Normal [facility] Comment on above: Performed By: #### C MP, CMADM #### [facility] [address] [place] [address] Dr. Kingsley Bautista MCH (RBC) [Entitic mass] 31.7 pg Normal 26.7-34.0 [facility] Comment on above: Performed By: #### C MP, CMADM #### [facility] [address] [place] [address] Dr. Kingsley Bautista MCHC (RBC) [Mass/Vol] 34.1 g/dL Normal 29.9-35.2 [facility] Comment on above: Performed By: #### C MP, CMADM #### [facility] [address] [place] [address] Dr. Kingsley Bautista MCV (RBC) [Entitic vol] 93.0 fL Normal 81.0-99.0 [facility] Comment on above: Performed By: #### C MP, CMADM #### [facility] [address] [place] [address] Dr. Kingsley Bautista MONO # 0.4 103/ul Normal 0.3-0.8 [facility] Comment on above: Performed By: #### C MP, CMADM #### [facility] [address] [place] [address] Dr. Kingsley Bautista Monocytes/100 WBC (Bld) 7.2 % Normal 1.7-12.0 [facility] Comment on above: Performed By: #### C MP, CMADM #### [facility] [address] [place] [address] Dr. Kingsley Bautista NEUT # 3.7 103/ul Normal 1.4-6.5 [facility] Comment on above: Performed By: #### C MP, CMADM #### [facility] [address] [place] [address] Dr. Kingsley Bautista Neutrophils/100 WBC (Bld) 61.1 % Normal 43.0-75.0 [facility] Comment on above: Performed By: #### C MP, CMADM #### [facility] [address] [address] [address] Kingsley Bautista Platelet mean volume (Bld) [Entitic vol] 9.7 fL Normal 9.5-13.5 [facility] Comment on above: Performed By: #### C MP, CMADM #### [facility] [address] [address] [address] Kingsley Bautista PLT 314 103/ul Normal 150-450 [facility] Comment on above: Performed By: #### C MP, CMADM #### [facility] [address] [address] [address] Kingsley Bautista RBC 4.54 106/ul Normal 4.20-5.40 [facility] Comment on above: Performed By: #### C MP, CMADM #### [facility] [address] [place] [address] Dr. Kingsley Bautista WBC 6.0 103/ul Normal 4.0-11.0 [facility] Comment on above: Performed By: #### C MP, CMADM #### [facility] [address] [place] [address] Dr. Kingsley Bautista D-DIMERon 09-09-2021 D-DIMER <0.19 Normal 0.19-0.50 [facility] Comment on above: Performed By: #### C MP, CMADM #### [facility] [address] [place] [address] Dr. Kingsley Bautista D-DIMER COMMENTS SEE BELOW Normal [facility] Comment on above: Result Comment: Incr eases [...] and generalized hospitalization. Performed By: #### C MP, CMADM #### [facility] [address] [place] [address] Dr. Kingsley Bautista DRUG SCREEN RAPID (URINE)on 09-09-2021 AMP Positive Abnormal NEGATIVE [facility] Comment on above: Performed By: #### E RUR, DRUGRPD, PREGU #### [facility] [address] [place] [address] Dr. Kingsley Bautista BAR Negative Normal NEGATIVE [facility] Comment on above: Performed By: #### E RUR, DRUGRPD, PREGU #### [facility] [address] [place] [address] Dr. Kingsley Bautista BUP Negative Normal NEGATIVE [facility] Comment on above: Performed By: #### E RUR, DRUGRPD, PREGU #### [facility] [address] [place] [address] Dr. Kingsley Bautista BZO Negative Normal NEGATIVE [facility] Comment on above: Performed By: #### E RUR, DRUGRPD, PREGU #### [facility] [address] [place] [address] Dr. Kingsley Bautista CALLY Negative Normal NEGATIVE [facility] Comment on above: Performed By: #### E RUR, DRUGRPD, PREGU #### [facility] [address] [place] [address] Dr. Kingsley Bautista CUT-OFFS SEE BELOW Normal [facility] Comment on above: Result Comment: AMP (Amphetamine): [...] By: #### E RUR, DRUGRPD, PREGU #### [facility] [address] [place] [address] Dr. Kingsley Bautista DRUG CUT HEADER DRUG CLASS TEST SYST EM CUT-OFF CONCENTRATIONS ARE FOLLOWS: Normal [facility] Comment on above: Performed By: #### E RUR, DRUGRPD, PREGU #### [facility] [address] [place] [address] Dr. Kingsley Bautista mAMP Negative Normal NEGATIVE [facility] Comment on above: Performed By: #### E RUR, DRUGRPD, PREGU #### [facility] [address] [place] [address] Dr. Kingsley Bautista MTD Negative Normal NEGATIVE [facility] Comment on above: Performed By: #### E RUR, DRUGRPD, PREGU #### [facility] [address] [place] [address] Dr. Kingsley Bautista OPI Negative Normal NEGATIVE [facility] Comment on above: Performed By: #### E RUR, DRUGRPD, PREGU #### [facility] [address] [place] [address] Dr. Kingsley Bautista OXY Negative Normal NEGATIVE [facility] Comment on above: Performed By: #### E RUR, DRUGRPD, PREGU #### [facility] [address] [place] [address] Dr. Kingsley Bautista PCP Negative Normal NEGATIVE [facility] Comment on above: Performed By: #### E RUR, DRUGRPD, PREGU #### [facility] [address] [place] [address] Dr. Kingsley Bautista PPX Negative Normal NEGATIVE [facility] Comment on above: Performed By: #### E RUR, DRUGRPD, PREGU #### [facility] [address] [place] [address] Dr. Kingsley Bautista TCA Negative Normal NEGATIVE [facility] Comment on above: Performed By: #### E RUR, DRUGRPD, PREGU #### [facility] [address] [place] [address] Dr. Kingsley Bautista THC Positive Abnormal NEGATIVE [facility] Comment on above: Performed By: #### E RUR, DRUGRPD, PREGU #### [facility] [address] [address] [address] Kingsley Bautista ER URINE PROFILEon 2 Bilirubin Ql (U) Negative Normal NEGATIVE [facility] Comment on above: Performed By: #### E RUR, DRUGRPD, PREGU #### [facility] [address] [place] [address] Dr. Kingsley Bautista Clarity (U) CLEAR Normal CLEAR [facility] Comment on above: Performed By: #### E RUR, DRUGRPD, PREGU #### [facility] [address] [place] [address] Dr. Kingsley Bautista Color (U) LT. YELLOW Normal YELLOW [facility] Comment on above: Performed By: #### E RUR, DRUGRPD, PREGU #### [facility] [address] [place] [address] Dr. Kingsley BOWENS A micrscopic examina tion will be performed if indicated. Normal [facility] Comment on above: Performed By: #### E RUR, DRUGRPD, PREGU #### [facility] [address] [place] [address] Dr. Kingsley Bautista Glucose Ql (U) Negative Normal NEGATIVE [facility] Comment on above: Performed By: #### E RUR, DRUGRPD, PREGU #### [facility] [address] [place] [address] Dr. Kingsley Bautista Hemoglobin Ql (U) Negative Normal NEGATIVE [facility] Comment on above: Performed By: #### E RUR, DRUGRPD, PREGU #### [facility] [address] [place] [address] Dr. Kingsley Bautista Ketones Ql (U) Negative Normal NEGATIVE [facility] Comment on above: Performed By: #### E RUR, DRUGRPD, PREGU #### [facility] [address] [place] [address] Dr. Kingsley Bautista LEUKOCYTES Negative Normal NEGATIVE [facility] Comment on above: Performed By: #### E RUR, DRUGRPD, PREGU #### [facility] [address] [place] [address] Dr. Kingsley Bautista Nitrite Ql (U) Negative Normal NEGATIVE [facility] Comment on above: Performed By: #### E RUR DRUGRPD, PREGU #### [facility] [address] [place] [address] Dr. Kingsley Bautista pH (U) 6.5 [pH] Normal 5-9 [facility] Comment on above: Performed By: #### E RUR DRUGRPD, PREGU #### [facility] [address] [place] [address] Dr. Kingsley Bautista SPEC GRAVITY <=1.005 Abnormal 1.005-<=1.0 25 [facility] Comment on above: Performed By: #### E RUHeidy DRUGRPD, PREGU #### [facility] [address] [place] [address] Dr. Kingsley Bautista UA PROTEIN Negative Normal NEGATIVE/ TRACE [facility] Comment on above: Performed By: #### Fermin MORALES DRUGRPD, PREGU #### [facility] [address] [place] [address] Dr. Kingsley Bautista UR MICRO IND NOT INDICATED Normal [facility] Comment on above: Performed By: #### Fermin MORALES DRUGRPD, PREGU #### [facility] [address] [place] [address] Dr. Kingsley Bautista Urobilinogen Qn (U) 0.2 {Patty'U}/dL Normal 0.2 - 1. 0 [facility] Comment on above: Performed By: #### Fermin RUR, DRUGRPD, PREGU #### [facility] [address] [place] [address] Dr. Kingsley Bautista URon 09-09-2021 , QUAL Negative Normal NEGATIVE [facility] Comment on above: Performed By: #### E RUR, DRUGRPD, PREGU #### [facility] [address] [place] [address] Dr. Kingsley Bautista PROF 14(COMP METB)on 022 Albumin [Mass/Vol] 3.9 g/dL Normal 3.5-5.0 [facility] Comment on above: Performed By: #### C MP, CMADM #### [facility] [address] [address] [address] Kingsley Bautista Albumin/Globulin [Mass ratio] 1.2 {ratio} Normal [facility] Comment on above: Performed By: #### C MP, CMADM #### [facility] [address] [address] [address] Kingsley Bautista ALP [Catalytic activity/Vol] 67 U/L Normal 38-126 [facility] Comment on above: Performed By: #### C MP, CMADM #### [facility] [address] [address] [address] Kingsley Bautista ALT [Catalytic activity/Vol] 26 U/L Normal 9-52 [facility] Comment on above: Performed By: #### C DAVY, CMADM #### [facility] [address] [address] [address] Kingsley Bautista Anion gap [Moles/Vol] 11.3 mmol/L Normal [facility] Comment on above: Performed By: #### C DAVY, CMADM #### [facility] [address] [address] [address] Kingsley Bautista AST [Catalytic activity/Vol] 38 U/L Critically high 14-36 [facility] Comment on above: Performed By: #### C DAVY, CMADM #### [facility] [address] [address] [address] Kingsley Bautista Bilirubin [Mass/Vol] 0.8 mg/dL Normal 0.2-1.3 [facility] Comment on above: Performed By: #### C MP, CMADM #### [facility] [address] [address] [address] Kingsley Bautista Calcium [Mass/Vol] 8.8 mg/dL Normal 8.4-10.2 [facility] Comment on above: Performed By: #### C MP, CMADM #### [facility] [address] [address] [address] Kingsley Bautista Chloride [Moles/Vol] 103 mmol/L Normal 98-107 [facility] Comment on above: Performed By: #### C MP, CMADM #### [facility] [address] [address] [address] Kingsley Bautista CO2 [Moles/Vol] 24.8 mmol/L Normal 22.0-30.0 [facility] Comment on above: Performed By: #### C MP, CMADM #### [facility] [address] [address] [address] Kingsley Bautista Creatinine [Mass/Vol] 0.86 mg/dL Normal 0.52-1.04 [facility] Comment on above: Performed By: #### C MP, CMADM #### [facility] [address] [place] [address] Dr. Kingsley Bautista EGFR-AF CITIZEN OF [place] >60 Normal >=60 [facility] Comment on above: Performed By: #### C MP, CMADM #### [facility] [address] [address] [address] Kingsley Bautista EGFR-NON AF CITIZEN OF [place] >60 Normal >=60 [facility] Comment on above: Performed By: #### C MP, CMADM #### [facility] [address] [address] [address] Kingsley Bautista Globulin (S) [Mass/Vol] 3.3 g/dL Normal [facility] Comment on above: Performed By: #### C MP, CMADM #### [facility] [address] [address] [address] Kingsley Bautista Glucose [Mass/Vol] 102 mg/dL Normal 74-106 [facility] Comment on above: Performed By: #### C MP, CMADM #### [facility] [address] [address] [address] Kingsley Bautista Potassium [Moles/Vol] 3.1 mmol/L Critically low 3.4-5.0 [facility] Comment on above: Performed By: #### C MP, CMADM #### [facility] [address] [address] [address] Kingsley Bautista Protein [Mass/Vol] 7.2 g/dL Normal 6.1-8.2 [facility] Comment on above: Performed By: #### C DAVY, CMADM #### [facility] [address] [place] [address] Dr. Kingsley Bautista Sodium [Moles/Vol] 136 mmol/L Critically low 137-145 [facility] Comment on above: Performed By: #### C DAVY, CMADM #### [facility] [address] [place] [address] Dr. Kingsley Bautista Urea nitrogen [Mass/Vol] 6.0 mg/dL Critically low 7.0-17.0 [facility] Comment on above: Performed By: #### C DAVY, CMADM #### [facility] [address] [place] [address] Dr. Kingsley Bautista Urea nitrogen/Creatinine [Mass ratio] 7.0 mg/mg Normal [facility] Comment on above: Performed By: #### C DAVY, CMADM #### [facility] [address] [place] [address] Dr. Kingsley Bautista PROTIMEon 09-09-2021 INR Coag (PPP) [Relative time] 1.01 {INR} Normal [facility] Comment on above: Performed By: #### C DAVY, CMADM #### [facility] [address] [place] [address] Dr. Kingsley Bautista INR GUIDELINES SEE BELOW Normal [facility] Comment on above: Result Comment: HERIBERTO RED INR: 2.0 - 3.0 CONDITIONS NOT LISTED BELOW 2.5 - 3.5 FOR PROSTHETIC HEART VALVE REPLACEMENT 2.5 - 3.5 RECURRENT THROMBOSIS Performed By: #### C DAVY, CMADM #### [facility] [address] [place] [address] Dr. Kingsley Bautista PT Coag (PPP) [Time] 10.9 s Normal 9.0-11.6 [facility] Comment on above: Performed By: #### C DAVY, CMADM #### [facility] [address] [place] [address] Dr. Kingsley Bautista PTTon 09-09-2021 aPTT Coag (Bld) [Time] 25.9 s Normal 22.3-36.2 Th [facility] Comment on above: Performed By: #### C DAVY, CMADM #### [facility] [address] [address] [address] Kingsley Bautista TROPONIN, HIGH SENSITIVITYon 09-09-2021 HSTROP 7.7 pg/mL Normal 4.0-35.5 [facility] Comment on above: Result Comment: CUT- OFF POINTS HAVE BEEN ESTABLISHED BASED ON THE FOURTH UNIVERSAL DEFINITIONS OF MYOCARDIAL INFARCTION. THE UPPER REFERENCE LIMIT (URL) OF TROPONIN, DEFINED THE 99TH PERCENTILE OF cTnI DISTRIBUTION IN A REFERENCE POPULATION, HAS BEEN CONFIRMED THE DECISION THRESHOLD FOR ID DIAGNOSIS. Performed By: #### C DAVY, CMADM #### [facility] [address] [address] [address] Kingsley Bautista XR CHEST 1 Von [...] by: NELL LUNDBERG Date: 2021-09-09 11:09 Normal [facility] Vital Signs Date Time Vital Sign Value Performing Clinician Facility 11-01-2023 15:26-0400 Body height 152.4 cm Joo Cruz MD Work Phone: [facility] 11-01-2023 15:26-0400 Body mass index (BMI) [Ratio] 30.31 kg/m2 Joo Cruz MD Work Phone: [facility] 11-01-2023 15:26-0400 Body weight 70.4 kg Joo Cruz MD Work Phone: [facility] 09-10-2023 09:06-0500 Body height 152.4 cm Joo Cruz MD Work Phone: [facility] 09-10-2023 09:06-0500 Body weight 65.77 kg Joo Cruz MD Work Phone: [facility] 08-10-2023 15:15-0500 Body weight 67.59 kg Huy Ascencio MANAGER TRACK[employer] D[employer]LL OPERATOR Work Phone: [facility] 07-15-2023 17:10-0500 Body height 152.4 cm Elizabeth Piedra Other [employer] Other 07-15-2023 17:10-0500 Body mass index (BMI) [Ratio] 30.46 kg/m2 Elizabeth Piedra Other [employer] Other 07-15-2023 17:10-0500 Body temperature 98.6 [degF] Elizabeth Piedra Other [employer] Other 07-15-2023 17:10-0500 Body weight 70.76 kg Elizabeth Piedra Other [employer] Other 07-15-2023 17:10-0500 Respiratory rate 18 /min Elizabeth Piedra Other [employer] Other 07-15-2023 17:10-0500 SaO2% (BldA) [Mass fraction] 99 % Elizabeth Piedra Other [employer] Other 07-02-2023 11:01-0500 Body height 152.4 cm Joo Cruz MD Work Phone: [facility] 07-02-2023 11:01-0500 Body weight 70.35 kg Joo Butt Work Phone: [facility] 06-18-2023 07:58-0500 Body height 153.3 cm Huy Ascencio MANAGER TRACK.GANG DRILL OPERATOR Work Phone: [facility] 06-18-2023 07:58-0500 Body weight 67.5 kg Huy Ascencio MANAGER TRACK[employer] DRILL OPERATOR Work Phone: [facility] 04-09-2023 12:51-0400 Body height 152.4 cm Reuben Mizanin PA-C Work Phone: [facility] 04-09-2023 12:51-0400 Body temperature 98.2 [degF] Reuben Mizanin PA-C Work Phone: [facility] 04-09-2023 12:51-0400 Body weight 58.42 kg Reuben Mizanin PA-C Work Phone: [facility] 04-09-2023 12:51-0400 Diastolic blood pressure 85 mm[Hg] Reuben Mizanin PA-C Work Phone: [facility] 04-09-2023 12:51-0400 Heart rate 106 /min Reuben Mizanin PA-C Work Phone: [facility] 04-09-2023 12:51-0400 SaO2% (BldA) [Mass fraction] 99 % Reuben Mizanin PA-C Work Phone: [facility] 04-09-2023 12:51-0400 Systolic blood pressure 120 mm[Hg] Reuben Mizanin PA-C Work Phone: [facility] 04-07-2023 09:27-0400 Body height 152.4 cm Maurice León MD Work Phone: [facility] 04-07-2023 09:27-0400 Body weight 57.15 kg Maurice León MD Work Phone: [facility] 03-05-2023 10:40-0400 Body temperature 98.8 [degF] Tristan Guallpa MD Work Phone: [facility] 03-05-2023 10:40-0400 Body weight 54.43 kg Tristan Guallpa MD Work Phone: [facility] 03-05-2023 10:40-0400 Diastolic blood pressure 91 mm[Hg] Tristan Guallpa MD Work Phone: [facility] 03-05-2023 10:40-0400 Heart rate 99 /min Tristan Guallpa MD Work Phone: [facility] 03-05-2023 10:40-0400 SaO2% (BldA) [Mass fraction] 100 % Tristan Guallpa MD Work Phone: [facility] 03-05-2023 10:40-0400 Systolic blood pressure 132 mm[Hg] Tristan Guallpa MD Work Phone: [facility] 12-24-2022 00:25-0400 Diastolic blood pressure 73 mm[Hg] [facility] 12-24-2022 00:25-0400 Heart rate 73 /min [facility] 12-24-2022 00:25-0400 Mean blood pressure 81 mm[Hg] [facility] 12-24-2022 00:25-0400 Respiratory rate 11 /min [facility] 12-24-2022 00:25-0400 SaO2% (BldA) [Mass fraction] 97 % [facility] 12-24-2022 00:25-0400 Systolic blood pressure 98 mm[Hg] [facility] 12-23-2022 23:30-0400 Diastolic blood pressure 71 mm[Hg] [facility] 12-23-2022 23:30-0400 Heart rate 70 /min [facility] 12-23-2022 23:30-0400 Mean blood pressure 78 mm[Hg] [facility] 12-23-2022 23:30-0400 Respiratory rate 14 /min [facility] 12-23-2022 23:30-0400 SaO2% (BldA) [Mass fraction] 98 % [facility] 12-23-2022 23:30-0400 Systolic blood pressure 93 mm[Hg] [facility] 12-23-2022 22:30-0400 Diastolic blood pressure 82 mm[Hg] [facility] 12-23-2022 22:30-0400 Heart rate 78 /min [facility] 12-23-2022 22:30-0400 Mean blood pressure 92 mm[Hg] [facility] 12-23-2022 22:30-0400 Respiratory rate 12 /min [facility] 12-23-2022 22:30-0400 SaO2% (BldA) [Mass fraction] 99 % [facility] 12-23-2022 22:30-0400 Systolic blood pressure 111 mm[Hg] [facility] 12-23-2022 22:12-0400 Heart rate 55 /min [facility] 12-23-2022 22:12-0400 Respiratory rate 18 /min [facility] 12-23-2022 19:38-0400 Body temperature 98.06 [degF] [facility] 12-23-2022 19:38-0400 Heart rate 83 /min [facility] 12-23-2022 19:38-0400 Respiratory rate 22 /min [facility] 11-07-2022 18:00-0400 Hourly Rounding [facility] 11-07-2022 18:00-0400 [facility] 11-07-[facility]22 17:00-0400 Hourly Rounding mad [facility] 11-07-2022 17:00-0400 [facility] 11-07-2022 16:33-0400 Heart rate 89 /min [facility] 11-07-2022 16:33-0400 SaO2% (BldA) [Mass fraction] 100 % [facility] 11-07-2022 16:33-0400 Diastolic blood pressure 61 mm[Hg] [facility] 11-07-2022 16:33-0400 Mean blood pressure 78 mm[Hg] [facility] 11-07-2022 16:33-0400 Systolic blood pressure 111 mm[Hg] [facility] 11-07-2022 16:32-0400 Body temperature 98.06 [degF] [facility] 11-07-2022 16:00-0400 Blood Pressure Location [facility] 11-07-2022 16:00-0400 Hourly Rounding [facility] 11-07-2022 16:00-0400 [facility] 11-07-2022 11:41-0400 Heart rate 66 /min [facility] 11-07-2022 11:41-0400 SaO2% (BldA) [Mass fraction] 98 % [facility] 11-07-2022 11:39-0400 Body temperature 97.7 [degF] [facility] 11-07-2022 11:39-0400 Diastolic blood pressure 75 mm[Hg] [facility] 11-07-2022 11:39-0400 Mean blood pressure 87 mm[Hg] [facility] 11-07-2022 11:39-0400 Systolic blood pressure 112 mm[Hg] [facility] 11-07-2022 11:00-0400 Respiratory rate 16 /min [facility] 11-07-2022 08:25-0400 Heart rate 74 /min [facility] 11-07-2022 08:25-0400 SaO2% (BldA) [Mass fraction] 98 % [facility] 11-07-2022 08:24-0400 Body temperature 98.24 [degF] [facility] 11-07-2022 08:23-0400 Diastolic blood pressure 70 mm[Hg] [facility] 11-07-2022 08:23-0400 Mean blood pressure 81 mm[Hg] [facility] 11-07-2022 08:23-0400 Systolic blood pressure 103 mm[Hg] [facility] 11-07-2022 08:00-0400 Respiratory rate 18 /min [facility] 11-06-2022 20:29-0400 Heart rate 88 /min [facility] 11-06-2022 14:33-0400 Heart rate 65 /min [facility] 10-22-2022 10:20-0400 Blood Pressure Location Amara Palacio [facility] 10-22-2022 10:20-0400 Body temperature 97.7 [degF] Amara Pia [facility] 10-22-2022 10:20-0400 Diastolic blood pressure 87 mm[Hg] Amara Tovarmetz [facility] 10-22-2022 10:20-0400 Heart rate 105 /min Amara Tovarmetz [facility] 10-22-2022 10:20-0400 Systolic blood pressure 123 mm[Hg] Amara Tovarmetz [facility] 07-30-2022 12:40-0500 Diastolic blood pressure 64 mm[Hg] Padron SALAM [facility] 07-30-2022 12:40-0500 Systolic blood pressure 102 mm[Hg] Padron SALAM [facility] 07-29-2022 05:30-0500 Diastolic blood pressure 85 mm[Hg] [facility] 07-29-2022 05:30-0500 Heart rate 69 /min [facility] 07-29-2022 05:30-0500 Mean blood pressure 96 mm[Hg] [facility] 07-29-2022 05:30-0500 Respiratory rate 18 /min [facility] 07-29-2022 05:30-0500 Systolic blood pressure 118 mm[Hg] [facility] 07-29-2022 05:00-0500 Diastolic blood pressure 80 mm[Hg] [facility] 07-29-2022 05:00-0500 Heart rate 99 /min [facility] 07-29-2022 05:00-0500 Mean blood pressure 100 mm[Hg] [facility] 07-29-2022 05:00-0500 Systolic blood pressure 141 mm[Hg] [facility] 07-29-2022 04:30-0500 Diastolic blood pressure 84 mm[Hg] [facility] 07-29-2022 04:30-0500 Heart rate 73 /min [facility] 07-29-2022 04:30-0500 Mean blood pressure 95 mm[Hg] [facility] 07-29-2022 04:30-0500 Respiratory rate 11 /min [facility] 07-29-2022 04:30-0500 Systolic blood pressure 117 mm[Hg] [facility] 07-29-2022 04:01-0500 SaO2% (BldA) [Mass fraction] 98 % [facility] 07-29-2022 03:16-0500 Nursing Progress Note Reason Other: pt back from CT, pt reapplied to clinical research monitor and 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 pt denies current needs. [facility] 07-29-2022 03:07-0500 Nursing Progress Note Reason Other: pt to CT at this time [facility] 07-29-2022 02:51-0500 SaO2% (BldA) [Mass fraction] 99 % [facility] 07-29-2022 02:24-0500 Body temperature 97.34 [degF] [facility] 07-29-2022 02:24-0500 Heart rate 117 /min [facility] 07-29-2022 02:24-0500 Respiratory rate 20 /min [facility] 07-29-2022 02:24-0500 SaO2% (BldA) [Mass fraction] 96 % [facility] 03-19-2022 14:03-0400 Blood Pressure Location Padron SALAM [facility] 03-19-2022 14:03-0400 Diastolic blood pressure 80 mm[Hg] Padron SALAM [facility] 03-19-2022 14:03-0400 Heart rate 82 /min Padron SALAM [facility] 03-19-2022 14:03-0400 Respiratory rate 16 /min Padron SALAM [facility] 03-19-2022 14:03-0400 Systolic blood pressure 117 mm[Hg] Padron SALAM [facility] 03-19-2022 08:05-0400 Body height 152.4 cm Brooks Lamb MD Work Phone: [facility] 03-19-2022 08:05-0400 Body weight 68.81 kg Brooks Lamb MD Work Phone: [facility] 03-19-2022 08:05-0400 Diastolic blood pressure 72 mm[Hg] Brooks Lamb MD Work Phone: [facility] 03-19-2022 08:05-0400 Heart rate 91 /min Brooks Lamb MD Work Phone: [facility] 03-19-2022 08:05-0400 Systolic blood pressure 108 mm[Hg] Brooks Lamb MD Work Phone: [facility] 02-19-2022 10:43-0400 Blood Pressure Location Amara Palacio [facility] 02-19-2022 10:43-0400 Body temperature 97.52 [degF] Amara Palacio [facility] 02-19-2022 10:43-0400 Diastolic blood pressure 72 mm[Hg] Amara Palacio [facility] 02-19-2022 10:43-0400 Heart rate 98 /min Amara Palacio [facility] 02-19-2022 10:43-0400 Systolic blood pressure 103 mm[Hg] Amara Palacio [facility] 02-09-2022 09:22-0400 Diastolic blood pressure 80 mm[Hg] [facility] 02-09-2022 09:22-0400 Heart rate 54 /min [facility] 02-09-2022 09:22-0400 Respiratory rate 16 /min [facility] 02-09-2022 09:22-0400 SaO2% (BldA) [Mass fraction] 100 % [facility] 02-09-2022 09:22-0400 Systolic blood pressure 110 mm[Hg] [facility] 02-09-2022 09:10-0400 Diastolic blood pressure 75 mm[Hg] [facility] 02-09-2022 09:10-0400 Heart rate 52 /min [facility] 02-09-2022 09:10-0400 Respiratory rate 15 /min [facility] 02-09-2022 09:10-0400 SaO2% (BldA) [Mass fraction] 99 % [facility] 02-09-2022 09:10-0400 Systolic blood pressure 118 mm[Hg] [facility] 02-09-2022 09:05-0400 Diastolic blood pressure 88 mm[Hg] [facility] 02-09-2022 09:05-0400 Heart rate 58 /min [facility] 02-09-2022 09:05-0400 Respiratory rate 16 /min [facility] 02-09-2022 09:05-0400 SaO2% (BldA) [Mass fraction] 99 % [facility] 02-09-2022 09:05-0400 Systolic blood pressure 116 mm[Hg] Padron [facility] 02-09-2022 08:57-0400 Body temperature 97.34 [degF] [facility] 02-09-2022 08:55-0400 Respiratory rate 18 /min [facility] 02-09-2022 08:50-0400 Respiratory rate 22 /min [facility]ito [facility] 02-09-2022 07:55-0400 Blood Pressure Location [facility] 02-09-2022 07:55-0400 Body temperature 96.98 [degF] [facility] 02-02-2022 08:27-0400 Blood Pressure Location Amara Palacio [facility] 02-02-2022 08:27-0400 Body temperature 97.34 [degF] Amara Tovarmetz [facility] 02-02-2022 08:27-0400 Diastolic blood pressure 72 mm[Hg] Amara Palacio [facility] 02-02-2022 08:27-0400 Heart rate 96 /min Amara Tovarmetz [facility] 02-02-2022 08:27-0400 SaO2% (BldA) [Mass fraction] 98 % Amara Tovarmetz [facility] 02-02-2022 08:27-0400 Systolic blood pressure 102 mm[Hg] Amaraochoa TovarPia [facility] 01-12-2022 14:27-0400 [facility] 01-12-2022 14:27-0400 Promise to Return [facility] 01-12-2022 14:00-0400 Diastolic blood pressure 88 mm[Hg] [facility] 01-12-2022 14:00-0400 Heart rate 55 /min [facility] 01-12-2022 14:00-0400 Respiratory rate 16 /min [facility] 01-12-2022 14:00-0400 Systolic blood pressure 128 mm[Hg] [facility] 01-12-2022 13:30-0400 Diastolic blood pressure 93 mm[Hg] [facility] 01-12-2022 13:30-0400 Heart rate 80 /min [facility] 01-12-2022 13:30-0400 Mean blood pressure 101 mm[Hg] [facility] 01-12-2022 13:30-0400 Respiratory rate 58 /min [facility] 01-12-2022 13:30-0400 SaO2% (BldA) [Mass fraction] 99 % [facility] 01-12-2022 13:30-0400 Systolic blood pressure 118 mm[Hg] [facility] 01-12-2022 13:00-0400 Hourly Rounding [facility] 01-12-2022 13:00-0400 Promise to Return [facility] 01-12-2022 12:27-0400 Hourly Rounding [facility] 01-12-2022 12:27-0400 Promise to Return [facility] 01-12-2022 12:26-0400 Diastolic blood pressure 92 mm[Hg] [facility] 01-12-2022 12:26-0400 Heart rate 73 /min [facility] 01-12-2022 12:26-0400 Respiratory rate 18 /min [facility] 01-12-2022 12:26-0400 Systolic blood pressure 121 mm[Hg] [facility] 01-12-2022 11:30-0400 Mean blood pressure 111 mm[Hg] [facility] 01-12-2022 09:43-0400 Body temperature 98.42 [degF] [facility] 01-12-2022 09:43-0400 Heart rate 96 /min [facility] 01-12-2022 09:43-0400 Respiratory rate 18 /min [facility] 12-24-2021 08:56-0400 Blood Pressure Location Padron SALAM [facility] 12-24-2021 08:56-0400 Diastolic blood pressure 76 mm[Hg] Padron SALAM [facility] 12-24-2021 08:56-0400 Heart rate 99 /min Padron SALAM [facility] 12-24-2021 08:56-0400 Respiratory rate 16 /min Padron SALAM [facility] 12-24-2021 08:56-0400 Systolic blood pressure 138 mm[Hg] Padron SALAM [facility] 10-14-2021 18:00-0400 Hourly Rounding [facility] 10-14-2021 18:00-0400 Promise to Return Nagi [facility] 10-14-2021 15:42-0400 Body temperature 98.6 [degF] [facility]iwilla [facility] 10-14-2021 15:42-0400 Diastolic blood pressure 70 mm[Hg] [facility] 10-14-2021 15:42-0400 Heart rate 87 /min [facility] 10-14-2021 15:42-0400 Mean blood pressure 84 mm[Hg] [facility] 10-14-2021 15:42-0400 SaO2% (BldA) [Mass fraction] 98 % Nagi [facility] 10-14-2021 15:42-0400 Systolic blood pressure 110 mm[Hg] [facility] 10-14-2021 12:00-0400 Body temperature 98.06 [degF] [facility] 10-14-2021 12:00-0400 Diastolic blood pressure 62 mm[Hg] [facility] 10-14-2021 12:00-0400 Heart rate 97 /min [facility] 10-14-2021 12:00-0400 Systolic blood pressure 97 mm[Hg] [facility] 10-14-2021 08:16-0400 Body temperature 97.34 [degF] [facility] 10-14-2021 08:16-0400 Diastolic blood pressure 71 mm[Hg] Nagi [facility] 10-14-2021 08:16-0400 Heart rate 62 /min [facility]iw[facility] 10-14-2021 08:16-0400 Mean blood pressure 83 mm[Hg] Nagi [facility] 10-14-2021 08:16-0400 SaO2% (BldA) [Mass fraction] 97 % Nagi [facility] 10-14-2021 08:16-0400 Systolic blood pressure 107 mm[Hg] [facility] 10-14-2021 02:10-0400 Blood Pressure Location [facility]iw[facility] 10-14-2021 02:10-0400 Heart rate 107 /min [facility] 10-14-2021 01:14-0400 Mean blood pressure 91 mm[Hg] [facility]i [facility] 10-14-2021 01:14-0400 Respiratory rate 15 /min Nagi [facility] 10-14-2021 00:39-0400 Mean blood pressure 98 mm[Hg] Nagi [facility] 10-14-2021 00:39-0400 Respiratory rate 15 /min Nagi [facility] 10-13-2021 23:30-0400 Heart rate 101 /min Nagi [facility] 10-13-2021 23:30-0400 Respiratory rate 16 /min Nagi [facility] 10-12-2021 16:00-0400 [facility] 16:00-0400 [facility] 10-12-2021 11:34-0400 [facility] 10-12-2021 11:34-0400 Body temperature 98.42 [degF] [facility] 10-12-2021 11:34-0400 BP/Pulse [facility] 10-12-2021 11:34-0400 Diastolic blood pressure 77 mm[Hg] [facility] 10-12-2021 11:34-0400 Heart rate 65 /min [facility] 10-12-2021 11:34-0400 Mean blood pressure 92 mm[Hg] [facility] 10-12-2021 11:34-0400 Respiratory rate 18 /min [facility] 10-12-2021 11:34-0400 SaO2% (BldA) [Mass fraction] 98 % [facility] 10-12-2021 11:34-0400 Systolic blood pressure 123 mm[Hg] [facility] 10-12-2021 08:13-0400 Blood Pressure Location [facility] 10-12-2021 08:13-0400 Body temperature 98.24 [degF] [facility] 10-12-2021 08:13-0400 BP/Pulse [facility] 10-12-2021 08:13-0400 Diastolic blood pressure 49 mm[Hg] [facility] 10-12-2021 08:13-0400 Heart rate 84 /min [facility] 10-12-2021 08:13-0400 Mean blood pressure 64 mm[Hg] [facility] 10-12-2021 08:13-0400 Respiratory rate 18 /min [facility] 10-12-2021 08:13-0400 SaO2% (BldA) [Mass fraction] 97 % [facility] 10-12-2021 08:13-0400 Systolic blood pressure 93 mm[Hg] [facility] 10-12-2021 01:00-0400 [facility] 10-12-2021 01:00-0400 Body temperature 97.34 [degF] [facility] 10-12-2021 01:00-0400 BP/Pulse [facility] 10-12-2021 01:00-0400 Diastolic blood pressure 78 mm[Hg] [facility] 10-12-2021 01:00-0400 Heart rate 59 /min [facility] 10-12-2021 01:00-0400 Mean blood pressure 91 mm[Hg] [facility]-12[facility]21 01:00-0400 Respiratory rate 18 /min [facility] 10-12-2021 01:00-0400 SaO2% (BldA) [Mass fraction] 98 % [facility] 10-12-2021 01:00-0400 Systolic blood pressure 118 mm[Hg] [facility] 10-11-2021 21:00-0400 Mean blood pressure 98 mm[Hg] [facility] 10-11-2021 17:10-0400 Mean blood pressure 96 mm[Hg] [facility] 10-11-2021 01:00-0400 Mean blood pressure 79 mm[Hg] gonz[facility]lez [facility] 10-10-2021 10:00-0400 Respiratory rate 10 /min [facility] 10-10-2021 09:00-0400 Respiratory rate 9 /min [facility] 10-10-2021 08:00-0400 Body temperature 98.06 [degF] [facility] 10-10-2021 08:00-0400 Respiratory rate 19 /min [facility] 10-10-2021 04:00-0400 Body temperature 98.24 [degF] [facility] 10-10-2021 00:00-0400 Body temperature 98.6 [degF] [facility] 10-09-2021 11:10-0400 Heart rate 60 /min [facility] 10-09-2021 10:58-0400 Nursing Progress Note Reason Other: PT TO FLOOR VIA Mónica PFEIFFER ON IV pump [facility] 10-09-2021 10:40-0400 Nursing Progress Note Reason Other: Patient and family updadted on admission and room [facility] 10-09-2021 08:56-0400 Heart rate 67 /min [facility] Encounters Encounter Date Encounter Type Care Provider Facility Start: 02-10-2024 End: 02-10-2024 ambulatory Solomon Franchesca [facility] Work Phone: Start: 02-10-2024 End: 02-10-2024 Departed Referred DO Solomon Franchesca Work Phone: [facility] Start: 02-09-2024 End: 02-09-2024 ambulatory SOLOMON FRANCHESCA Not Available Start: 01-26-2024 Telephone encounter Joo Cruz MD Work Phone: [facility] Start: 01-24-2024 Office outpatient vi sit 10 minutes Joo Cruz MD Work Phone: [facility] [place] Start: 01-17-2024 Orders Only Michell Mcconnell MANAGER TRACK.GANG DRILL OPERATOR Work Phone: [facility] Comment on above: 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) For [place] Start: 12-23-2023 ambulatory Reuben Chan Darlin colbertin PA-C Work Phone: Internal Medicine [facility] Comment on above: Approval Start: 12-14-2023 End: 12-14-2023 ambulatory SOLOMON SORENSEN Not Available Start: 12-12-2023 Refill Reuben Chan Darlin colbertin PA-C Work Phone: Internal [facility] Comment on above: Refill Request Start: 11-30-2023 MC Get Medical Advice Reuben Rocio Agrawal PA-C Work Phone: Internal [facility] Comment on above: Refill Start: 11-16-2023 End: 11-16-2023 ambulatory BROOK MEADOWSLINO Not Available Start: 11-15-2023 End: 11-16-2023 ambulatory Erika J Sandra [facility] Start: 11-15-2023 End: 11-15-2023 Lab Drop off [facility] J [facility] Start: 11-13-2023 Refill Chantal Kam VOSSN.GANG DRILL OPERATOR Work Phone: Cardiology Comment on above: Refill Request Start: 11-12-2023 Telephone encounter Joo Cruz MD Work Phone: [facility] Start: 11-01-2023 End: 11-01-2023 Postop follow up visit related to original px Joo Cruz MD Work Phone: [facility] Comment on above: 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) Start: 11-01-2023 End: 11-01-2023 ambulatory JOO CRUZ Facility:[facility] Start: 11-01-2023 Encounter for other preprocedural examination [facility] Start: 11-01-2023 End: 11-01-2023 Patient encounter status [facility] Start: 11-01-2023 End: 11-01-2023 Subsequent hospital visit by physician General Radio [facility] Comment on above: Cervical spinal sten osis [M48.02] Start: 10-22-2023 ambulatory Joo mackenzie MD Work Phone: [facility] Comment on above: Appeal Denied Start: 09-24-2023 Refill Joo mackenzie MD Work Phone: [facility] Comment on above: Refill Request Start: 09-14-2023 ambulatory Reuben hampton PA-C Work Phone: Internal [facility] Comment on above: Questions Start: 09-10-2023 End: 09-10-2023 ambulatory REUBEN AGRAWAL Facility:[facility] Start: 09-10-2023 End: 09-10-2023 [facility] Reuben Agrawal PA-C Work Phone: [facility] Comment on above: Palpitations (Primar y Dx); Bipolar 1 disorder (HCC); S/P cervical spinal fusion Start: 09-10-2023 End: 09-10-2023 ambulatory JOO CRUZ Facility:[facility] Start: 09-10-2023 End: 09-10-2023 Postop follow up visit related to original px Joo Cruz MD Work Phone: [facility] Comment on above: 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) Start: 09-09-2023 ambulatory Joo mackenzie MD Work Phone: [facility] Comment on above: [employer] Start: 09-09-2023 E-mail encounter fro m caregiver Joo Cruz MD Work Phone: [facility] Start: 09-09-2023 Telephone encounter Reuben SHERWOODC Work Phone: [facility] Comment on above: [facility] l- Occupational Therapy (Re-certification Note) Start: 09-06-2023 ambulatory Joo mackenzie MD Work Phone: [facility] Comment on above: Medication Start: 09-01-2023 ambulatory Joo mackenzie MD Work Phone: [facility] Comment on above: Question Start: 08-27-2023 Telephone encounter Joo Cruz MD Work Phone: [facility] Start: 08-26-2023 ambulatory Reuben L Darlin anin PA-C Work Phone: Internal Medicine [facility] Comment on above: Plasma consent to re lease medical records Start: 08-26-2023 Telephone encounter Reuben L Mizanin PA-C Work Phone: Internal Medicine [facility] Comment on above: Appointment Start: 08-24-2023 End: 08-25-2023 ambulatory SHERIFYANADAAL Henny ABREUNI Facility:[facility] Start: 08-19-2023 Telephone encounter Joo Cruz MD Work Phone: Neurology Comment on above: Patient Update; Alicia ent Question Start: 08-12-2023 ambulatory Reuben L Darlin anin PA-C Work Phone: Internal Medicine [facility] Comment on above: Clearance Start: 08-10-2023 End: 08-10-2023 ambulatory REUBEN L MIZANIN Facility:[facility] Start: 08-10-2023 End: 08-10-2023 Patient encounter procedure Huy Ascencio MANAGER TRACK.GANG DRILL OPERATOR Work Phone: [facility] Comment on above: Spinal stenosis of c ervical region (Primary Dx) Start: 08-06-2023 Telephone encounter Joo rCuz MD Work Phone: [facility] Start: 08-04-2023 End: 08-04-2023 ambulatory REUBEN L MIZANIN Facility:[facility] Start: 08-04-2023 Encounter for other preprocedural examination REUBEN ANDERSANIN [facility] Start: 08-03-2023 End: 08-03-2023 ambulatory REUBEN L MIZANIN Facility:[facility] Start: 08-03-2023 End: 08-03-2023 ambulatory REUBEN Rocio AGRAWAL Facility:[facility] Start: 08-03-2023 Encounter for other preprocedural examination REUBEN AGRAWAL [facility] Start: 08-02-2023 End: 08-02-2023 ambulatory REUBEN L MIZANIN Facility:[facility] Start: 07-29-2023 End: 07-29-2023 ambulatory REUBEN AGRAWAL Facility:[facility] Start: 07-29-2023 Encounter for other preprocedural examination REUBEN AGRAWAL [facility] Start: 07-26-2023 End: 07-26-2023 ambulatory BILAL MISTY BUTT Facility:[facility] Start: 07-16-2023 ambulatory UNKNOWN PROVIDER Facili ty:[facility] Start: 07-15-2023 End: 07-15-2023 ambulatory Elizabeth Piedra Other [employer] Other Start: 07-15-2023 Office outpatient ne w 20 minutes Elizabeth Piedra [facility] Start: 07-09-2023 End: 07-09-2023 ambulatory REUBEN Rocio AGRAWAL Facility:[facility] Start: 07-08-2023 End: 07-08-2023 ambulatory REUBEN AGRAWAL Facility:[facility] Start: 07-02-2023 End: 07-02-2023 Office outpatient new 30 minutes Bilal Misty Cruz MD Work Phone: [facility] Comment on above: Spinal stenosis of c ervical region (Primary Dx) Start: 07-02-2023 End: 07-02-2023 ambulatory HUY ASCENCIO Facility:[facility] Start: 06-25-2023 End: 06-25-2023 ambulatory REUBEN AGRAWAL Facility:[facility] Start: 06-18-2023 End: 06-18-2023 ambulatory Reuben Rocio Darlinmemo PA-C Work Phone: Internal Medicine [facility] Comment on above: Question on results Start: 06-18-2023 End: 06-18-2023 Subsequent hospital visit by physician Xr [facility] General Radiology Comment on above: Cervicalgia [M54.2] Start: 06-18-2023 End: 06-18-2023 Patient encounter procedure Huy Ascencio MANAGER TRACK.GANG DRILL OPERATOR Work Phone: [facility] Comment on above: Cervicalgia (Primary Dx); 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; Radiculopathy, cervical region Start: 06-14-2023 Telephone encounter Reuben Rocio Andersanin PA-C Work Phone: [facility] Comment on above: Orders (OT recertifi cation note) Start: 06-03-2023 E-mail encounter hussein m caregiver Reuben Chan Mizanin PA-C Work Phone: [place] Start: 06-03-2023 Follow-up encounter Reuben Rocio Mizanin PA-C Work Phone: [facility] Comment on above: Follow up Start: 06-03-2023 Telephone encounter Reuben Rocio Mizanin PA-C Work Phone: [facility] Start: 06-02-2023 E-mail encounter fro m caregiver [facility] [address] Start: 06-02-2023 Patient encounter procedure [facility] Provider Pain Management Comment on above: regarding appointmen t with pain mgmt Start: 06-02-2023 Telephone encounter Reuben Chan Phone.comanin PA-C Work Phone: [address] [place] [address] Comment on above: Patient Question Start: 04-16-2023 End: 04-16-2023 ambulatory Nitza Yarbrough INSPECTOR OF DREDGING Primary [facility] Social Work Comment on above: SDOH Start: 04-15-2023 End: 04-15-2023 ambulatory Ladi Stevens RT(R) Radiology Comment on above: Radiology MRI Start: 04-15-2023 Patient encounter procedure Ladi Stevens RT(R) CARON CASTELLANOS Start: 04-12-2023 Telephone encounter Reuben Rocio Andersanin PA-C Work Phone: [facility] Comment on above: Received Outside [facility] Records (Records received ) Start: 04-09-2023 Telephone encounter Reuben Rocio Andersanin PA-C Work Phone: Internal Medicine [facility] Comment on above: [facility] PICU NURSE Medical Records Request [facility] In patient/Outpatient Medical Record [facility] Medical Records Request Start: 04-09-2023 End: 04-09-2023 ambulatory TERESA PATEL Facility:[facility] Start: 04-09-2023 End: 04-09-2023 Office outpatient new 60 minutes Reuben Agrawal PA-C Work Phone: Internal Medicine [facility] Comment on above: Abnormal EKG (Primar y [...] with new doctor Start: 04-07-2023 End: 04-07-2023 [facility] Maurice León MD Work Phone: Family Medicine Comment on above: Abnormal EKG (Primar y Dx); Encounter to establish care with new doctor; PTSD (post-traumatic stress disorder); DIMITRI (generalized anxiety disorder); MDD (major depressive disorder), recurrent episode, mild (HCC); Elevated blood pressure reading in office with diagnosis of hypertension; Cerebellar tonsillar ectopia (HCC); Prolonged Q-T interval on ECG; RBBB Start: 03-26-2023 ambulatory Zoraida cobb PA-C Work Phone: [facility] Comment on above: Echo and gabapentin Start: 03-26-2023 E-mail encounter hussein m caregiver Zoraida Valle PA-C Work Phone: [facility] Start: 03-26-2023 Telephone encounter Zoraida menard PA-C Work Phone: [facility] Comment on above: Patient Update; Alicia ent Question; Orders Start: 03-18-2023 End: 03-18-2023 ambulatory Zoraida Perez Tori TRONCOSO Work Phone: [facility] Comment on above: Chiari I malformatio n (HCC) (Primary Dx); Chiari malformation type I (HCC) Start: 03-18-2023 End: 03-18-2023 Telemedicine consultation with patient Zoraida Perez Tori TRONCOSO Work Phone: [facility] Start: 03-05-2023 End: 03-05-2023 ambulatory TERESA PATEL Facility:[facility] Start: 03-05-2023 End: 03-05-2023 Patient encounter procedure Tristan Guallpa MD Work Phone: Neurology Comment on above: Chiari malformation type I (HCC) (Primary Dx); History of TMJ syndrome Start: 03-04-2023 End: 03-04-2023 ambulatory [facility] Start: 03-02-2023 Telephone encounter Tristan Guallpa MD Work Phone: Neurology Comment on above: Forms Start: 02-26-2023 End: 02-26-2023 [facility] Tristan Guallpa MD Work Phone: Neurology Comment on above: History of TMJ disor carlo (Primary Dx) Start: 02-22-2023 Telephone encounter Tristan Guallpa MD Work Phone: Neurology Comment on above: Forms Start: 02-04-2023 End: 02-05-2023 ambulatory Jimmie Barkley [facility] Start: 02-01-2023 Emergency department patient visit Mikal Garcia Facility:[facility] Start: 01-01-2023 Telephone encounter Tristan Guallpa MD Work Phone: Neurology Comment on above: Patient Update Start: 12-23-2022 End: 12-24-2022 Emergency department patient visit Silas Durant Facility:[facility] Start: 12-23-2022 End: 12-24-2022 Emergency department patient visit [facility] Start: 11-26-2022 End: 11-27-2022 ambulatory Amara Palacio Facility:[facility] Start: 11-07-2022 ambulatory Miriam Ash Cavazos Fac ility:[id number] Start: 11-06-2022 End: 11-07-2022 Observation Lissettgonzález Kleinbenitomayda [facility] Start: 11-05-2022 End: 11-05-2022 Lab Drop off Erika [facility] Start: 10-27-2022 End: 10-27-2022 Patient encounter procedure Amara [facility] Start: 10-22-2022 End: 10-22-2022 Patient encounter procedure Amara Palacio [facility] Start: 09-01-2022 Letter encounter Miriam Cavazos [facility] Start: 08-25-2022 End: 08-25-2022 Lab Drop off Vito ROBERTSON [facility] Start: 07-30-2022 End: 07-30-2022 Patient encounter procedure Padron SALAM [facility] Start: 07-29-2022 End: 07-29-2022 Emergency department patient visit Mikal [facility] Start: 05-18-2022 End: 05-18-2022 ambulatory TERESA PATEL Facility:[facility] Start: 03-20-2022 End: 03-20-2022 Lab Drop off Padron MARCELO [facility] Start: 03-19-2022 End: 03-19-2022 Patient encounter procedure Brooks Lamb MD Work Phone: [facility] [place] Comment on above: Diarrhea of presumed infectious origin (Primary Dx) Start: 02-19-2022 End: 02-19-2022 Patient encounter procedure Amara Palacio [facility] Start: 02-09-2022 End: 02-09-2022 Patient encounter procedure Vito ROBERTSON [facility] Start: 02-02-2022 End: 02-02-2022 Patient encounter procedure Amara Palacio [facility] Start: 01-13-2022 End: 01-13-[address] DOCTOR HAN Facility:[facility] Start: 01-12-2022 End: 01-12-2022 Emergency department patient visit Pardeep Jo [facility] Start: 12-30-2021 End: 12-31-2021 ambulatory TERESA PATEL Facility:[facility] Start: 12-29-2021 End: 12-29-[address] ANTWAN GARCIA Facility:[facility] Start: 12-24-2021 End: 05-13-2022 Recurring Vito ROBERTSON [facility] Start: 12-24-2021 End: 12-24-2021 Patient encounter procedure Vito ROBERTSON [facility] Start: 12-23-2021 ambulatory TERESA PATEL Facility: [facility] Start: 12-03-2021 End: 12-03-2021 Patient encounter procedure Amara Palacio [facility] Start: 10-21-2021 ambulatory TERESA PATEL Facility: [facility] Start: 10-13-2021 End: 10-14-2021 Observation Nagi Kirk [facility] Start: 10-09-2021 End: 10-12-2021 Evaluation and management of inpatient Trey Treadwell [facility] Start: 10-03-2021 End: 10-03-2021 ambulatory TERESA PATEL Facility:[facility] Start: 09-27-2021 End: 09-27-[address] ANTWAN GARCIA Facility:[facility] Start: 09-09-2021 End: 09-09-[address] ANTWAN GARCIA Facility:[facility] Start: 05-19-2016 End: 05-23-2016 ambulatory MIRIAM CAVAZOS Facility:[facility] Procedures Date Procedure Procedure Detail Performing Clinician Start: 08-04-2023 Antibody screen REUBEN AGRAWAL Comment on above: Order Comment: Specimen Type: BLOOD SPEC IMENOrdering Facility: [facility] Address: [address] [place] [address] Performed By: #### T [id number] ####CC MAIN BLOOD BANKCLIA [id number] [place] [address] [place] Start: 07-26-2023 Follow-up visit [...] DTaP,Tdap,Td Vaccine (8 - Td or Tdap) [facility] Start: 09-09-2024 Annual PCP Team Chronic Disease Visit Annual PCP Team Chronic Disease Visit [facility] Start: 08-03-2024 BP Controlled (<130/80) BP Controlled (<130/80) [facility] Start: 06-25-2024 BP Controlled (<130/80) BP Controlled (<130/80) [facility] Start: 04-09-2024 Annual PCP Team Chronic Disease Visit Annual PCP Team Chronic Disease Visit [facility] Start: 03-05-2024 Influenza vaccination Influenza Vaccine (#1) [facility] Start: 02-28-2024 End: 02-28-2024 Patient encounter procedure Radiology Comment on above: S/P cervical spinal fusion [Z98.1 6 month Post Op Foll ow Up Start: 02-09-2024 [facility] Start: 02-08-2024 End: 02-08-2024 Patient encounter procedure 02/08/2024 1:30 PM EDT Office Visit Cardiology [address] [place] [address] Franchesca Low MD [address] [place], [place] [id number] 6 month f/u, rs from 01/30 Cardiology Comment on above: 6 month f/u, rs from 01/30 Start: 02-04-2024 End: 02-04-2024 ambulatory 02/04/2024 4:20 PM EDT [facility] [address] [place] [phone] Joo Cruz MD [address] [place] [id number] add on per [place] [facility] Comment on above: add on per [place] Start: 01-21-2024 End: 01-21-2024 ambulatory 01/21/2024 4:20 PM EDT [facility] [address] [place] [phone] Joo Cruz MD [address] [place] [id number] add on per [place] [facility] Comment on above: add on per [place] Start: 08-15-2023 Hepatitis B Vaccine (3 of 3 - 19+ 3-dose series) Hepatitis B Vaccine (3 of 3 - 19+ 3-dose series) [facility] Start: 03-05-2023 Covid-19 Vaccine ( season) Covid-19 Vaccine () [facility] Start: 03-05-2023 Influenza vaccination INFLUENZA (#1) [facility] Start: 08-29-2022 COVID-19 VACCINE (3 - Pfizer series) COVID-19 VACCINE (3 - Pfizer series) [facility] Start: 07-05-2022 DEPRESSION ASSESSMENT DEPRESSION ASSESSMENT [facility] Start: 04-04-2022 Influenza vaccination Influenza Vaccine (#1) [facility] Start: 03-19-2022 End: 05-19-2022 CBC panel - Blood by Automated count CBC Lab Routine Diarrhea of presumed infectious origin Expected: 03/19/2022, Expires: 05/19/2022 [facility] Work Phone: Comment on above: Expected: 03/19/2022, Expires: 2 Start: 03-19-2022 End: 05-19-2022 Comprehensive metabolic 2000 panel - Serum or Plasma COMP METABOLIC PANEL Lab Routine Diarrhea of presumed infectious origin Expected: 03/19/2022, Expires: 05/19/2022 [facility] Work Phone: Comment on above: Expected: 03/19/2022, Expires: 2 Start: 03-05-2022 Influenza vaccination INFLUENZA (#1) [facility] Start: 2015 HPV TESTING HPV TESTING [facility] Start: 2015 Screening for malignant neoplasm of cervix HPV Testing [facility] Start: 07-03-2009 PAP TESTING PAP TESTING [facility] Start: 07-03-2009 Screening for malignant neoplasm of cervix Pap Testing [facility] Start: 07-03-2007 Screening for malignant neoplasm of cervix Cervical Cancer Screening [facility] Start: 2006 Screening for malignant neoplasm of cervix [facility] Start: 02-18-2004 Urine microalbumin profile [facility] Start: 2003 BP Controlled (<130/80) BP Controlled (<130/80) [facility] Start: 2003 HEPATITIS C SCREENING HEPATITIS C SCREENING [facility] Start: 2003 Hepatitis C screening [facility] Start: 2003 Tetanus + diphtheria + acellular pertussis vaccine (product) Tdap Booster [facility] Start: 02-18-2000 HIV screening HIV Test [facility] Start: 1997 Adult depression screening assessment DEPRESSION SCREENING [facility] Start: 1991 Pneumococcal vaccination [facility] Start: 1985 COVID-19 VACCINE (#1) COVID-19 VACCINE (#1) [facility] Start: 1985 HEPATITIS B (1 of 3 - 3-dose series) HEPATITIS B (1 of 3 - 3-dose series) [facility] Start: 1985 Hepatitis B Vaccine (1 of 3 - 3-dose series) Hepatitis B Vaccine (1 of 3 - 3-dose series) [facility] Start: 1985 Screening for malignant neoplasm of breast Mammography shared decision making (35 through 39 years) [facility] Calprotectin [Mass/m ass] in Stool CALPROTECTIN,FECAL Lab Routine Diarrhea of presumed infectious origin Ordered: 03/19/2022 [facility] Work Phone: Comment on above: Ordered: 03/19/2022 Clostridioides diffi cile toxin genes [Presence] in Stool by SAMAN with probe detection C. DIFFICILE PCR Lab Routine Diarrhea of presumed infectious origin Ordered: 03/19/2022 [facility] Work Phone: Comment on above: Ordered: 03/19/2022 End: 07-31-2024 Ct cervical spine w/o contrast material CT CERVICAL SPINE WO IVCON Radiology Routine Spinal stenosis of cervical region 1 Occurrences starting 07/02/2023 until 07/31/2024 [facility] Work Phone: Comment on above: 1 Occurrences starting 07/02/2023 until 07/31/2024 End: 04-09-2024 Echocardiography ECHO Cardiology Routine Abnormal EKG 1 Occurrences starting 04/09/2023 until 04/09/2024 [facility] Work Phone: Comment on above: 1 Occurrences starting 04/09/2023 until 04/09/2024 Gastrointestinal pathogens panel - Stool by Culture STOOL CULTURE/EIA Microbiology Routine Diarrhea of presumed infectious origin Ordered: 03/19/2022 [facility] Work Phone: Comment on above: Ordered: 03/19/2022 Giardia lamblia+Cryptosporidium sp Ag [Presence] in Stool by Immunoassay CRYPTOSPORIDIUM AND GIARDIA ANTIGENS BY EIA Microbiology Routine Diarrhea of presumed infectious origin Ordered: 03/19/2022 [facility] Work Phone: Comment on above: Ordered: 03/19/2022 End: 04-16-2024 Mri spinal canal cervical w/o contrast matrl MRI CERVICAL SPINE WO IVCON Radiology Routine Chiari I malformation (HCC) 1 Occurrences starting 03/18/2023 until 04/16/2024 [facility] Work Phone: Comment on above: 1 Occurrences starting 03/18/2023 until 04/16/2024 SPINE INTERVENTION PROCEDURE SPINE INTERVENTION PROCEDURE Procedures Routine Cervicalgia 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 Radiculopathy, cervical region Ordered: 06/18/2023 [facility] Work Phone: Comment on above: Ordered: 06/18/2023 XR Cervical spine AP and Lateral XR CERV GENERAL 2V AP/LAT Radiology Routine Cervical spinal stenosis Pre-op testing 11/01/2023 3:18 PM EDT [facility] Work Phone: End: 02-15-2025 XR Cervical spine AP and Lateral XR CERV GENERAL 2V AP/LAT Radiology Routine 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) 1 Occurrences starting 01/17/2024 until 02/15/2025 [facility] Work Phone: Comment on above: 1 Occurrences starting 01/17/2024 until 02/15/2025 [facility] Immunizations Immunization Date Immunization Notes Care Provider Fa [facility] 06-17-2023 hepatitis B vaccine, adult dosage Joo Cruz MD Work Phone: [facility] 03-16-2023 hepatitis B vaccine, adult dosage Joo Cruz MD Work Phone: [facility] 02-14-2023 Influenza, injectable, Madin Marian Canine Kidney, preservative free, quadrivalent Joo Cruz MD Work Phone: [facility] 02-14-2023 influenza virus vaccine, unspecified formulation Michell Mcconnell APRN.GANG DRILL OPERATOR Work Phone: [facility] 02-12-2023 hepatitis B vaccine, adult dosage Joo Cruz MD Work Phone: [facility] 02-12-2023 tetanus toxoid, reduced diphtheria toxoid, and acellular pertussis vaccine, adsorbed Joo Cruz MD Work Phone: [facility] 07-04-2022 SARS-CoV-2 mRNA (wajhviwaqax-mvbr-xot belkis) vaccine Vito TOLBERT [facility] Comment on above: Result Comment: 2022: TPVALL 06-13-2022 SARS-CoV-2 mRNA (zbcobzpcagu-bume-itb belkis) vaccine Padron SALAM [facility] Comment on above: Result Comment: 2022: TPVALL 02-03-2011 tetanus toxoid, reduced diphtheria toxoid, and acellular pertussis vaccine, adsorbed [facility] Comment on above: Reason for Medicatio n: Other (see comment) Reason for Medicatio n: Other (see comment) 09-09-2010 influenza virus vaccine, split virus (incl. purified surface antigen) Elizabeth Piedra Other [employer] Other 09-09-2010 influenza virus vaccine, unspecified formulation DO Solomon Sorensen Work Phone: [facility] 02-14-1997 measles, mumps and rubella virus vaccine Padron SALAM [facility] 02-07-1990 diphtheria, tetanus toxoids and pertussis vaccine Joo Cruz MD Work Phone: [facility] 11-07-1989 trivalent poliovirus vaccine, live, oral Joo Cruz MD Work Phone: [facility] 04-24-1987 haemophilus influenzae type b vaccine, conjugate unspecified formulation Joo Cruz MD Work Phone: [facility] 04-24-1987 Hib, unspecified formulation Padron SALAM [facility] 01-22-1987 diphtheria, tetanus toxoids and pertussis vaccine Joo Cruz MD Work Phone: [facility] 11-19-1986 trivalent poliovirus vaccine, live, oral Joo Cruz MD Work Phone: [facility] 06-18-1986 measles, mumps and rubella virus vaccine Padron SALAM [facility] 1985 diphtheria, tetanus toxoids and pertussis vaccine Joo Cruz MD Work Phone: [facility] 1985 diphtheria, tetanus toxoids and pertussis vaccine Joo Cruz MD Work Phone: [facility] 1985 trivalent poliovirus vaccine, live, oral Joo Cruz MD Work Phone: [facility] 1985 diphtheria, tetanus toxoids and pertussis vaccine Joo Cruz MD Work Phone: [facility] 1985 trivalent poliovirus vaccine, live, oral Joo Cruz MD Work Phone: [facility] NEGATED: Highlighted row has not occurred!03-19-2022 influenza virus vaccine, unspecified formulation Padron [facility] NEGATED: Highlighted row has not occurred!02-19-2022 influenza virus vaccine, unspecified formulation Amara Palacio [facility] Payers Date Payer Category Payer Unknown [facility] [employer] [employer]ICA[employer] [id number] 2016-Present [id number] 2014 Medicaid [id number] 1985 Unknown [id number] [id number] 1985 Unknown [id number] 2.16.840.1.194001.3.579.2.593 1985 Unknown [id number] 2..840.1.373703.3.579.2.593 1985 Unknown [id number] 2.16.840.1.544247.3.579.2.593 1985 Unknown [id number] 2.16.840.1.253614.3.579.2.593 1985 Unknown [id number] 2.16.840.1.814064.3.579.2.593 1985 Unknown [id number] 2.16.840.1.786028.3.579.2.593 1985 Unknown [id number] 2.16.840.1.900412.3.579.2.593 1985 Unknown [id number] 2.16.840.1.433232.3.579.2.593 1985 Unknown [id number] 2.16.840.1.143489.3.579.2.593 1985 Unknown [id number] 2.16.840.1.210444.3.579.2.356 1985 Unknown [id number] 2.16.840.1.413205.3.579.2.727 1985 Unknown [id number] 2.16.840.1.392639.3.579.2.727 1985 Unknown [id number] 2.16.840.1.814578.3.579.2.727 1985 Unknown [id number] 2.16.840.1.552176.3.579.2.727 1985 Unknown [id number] 2.16.840.1.511347.3.579.2.727 1985 Unknown [id number] 2.16.840.1.626492.3.579.2.727 1985 Unknown [id number] 2.16.840.1.858118.3.579.2.1259 1985 Unknown [id number] 2.16.840.1.090672.3.579.2.1259 1985 Unknown [id number] 2.16.840.1.610701.3.579.2.1259 1959 Medicaid [id number] 1959 Self-pay Unknown [id number] Social History Date Type Detail Facility Start: 03-20-2020 End: 08-02-2023 Tobacco smoking status [facility]-smoker [facility] Comment on above: Patient vapes 1 cart erage a day quit over a month ag o Start: 12-21-2022 End: 01-15-2023 Sex Assigned At Female [facility] Start: 11-13-2021 Tobacco smoking status Heavy t obacco smoker (finding) [facility] Comment on above: Patient vapes 1 cart erage a day Tobacco smoking status Never [facility] Comment on above: quit over a month ag o End: 07-12-2023 History of tobacco use Current smoker [facility] End: 07-12-2023 History of tobacco use Cigarette Smoker [facility] Start: 03-19-2022 End: 01-15-2023 Cigarettes smoked current (pack per day) - Reported 0.5 [facility] Start: 03-19-2022 End: 08-02-2023 Tobacco use and exposure Smokeless tobacco non-user [facility] Start: 03-19-2022 End: 11-01-2023 Alcohol intake Current drinker of alcohol (finding) [facility] Start: 1985 Sex Assigned At Not on file C [facility] Start: 03-09-2022 End: 03-19-2022 Exposure to SARS-CoV-2 (event) Not sure [facility] Start: 05-02-2016 End: 07-02-2023 Tobacco smoking status NHIS Smokes tobacco daily [employer] Work Phone: Start: 05-02-2016 Alcohol Comment rare/social [facility] Start: 1985 Sex Assigned At Female C [facility] Start: 03-18-2023 Gender identity Identifies as female gender (finding) [facility] Start: 04-08-2023 Sexual orientation Bisexual (finding ) [facility] Has the [employer], [employer], or water [employer] threatened to shut off services in your home in past 12Mo Yes [facility] Are you now , , , , never or living with a partner? Never [facility] How often to you hav e a drink containing alcohol? 2-4 times a month [facility] How hard is it for y ou to pay for the very basics like food, housing, medical care, and heating Very hard [facility] Do you feel stress - tense, restless, nervous, or anxious, or unable to sleep at night because your mind is troubled all the time - these days [OSQ] Very much [facility] (I/We) worried wheth er (my/our) food would run out before (I/we) got money to buy more. Often true [facility] At any time in the p ast 12 months, were you homeless or living in correction [including now]? No [facility] Start: 06-22-2023 Sexual orientation Choose not to dis close [facility] Medical Equipment Procedure Code Equipment Code Equipment [...] 4d 6m m Spinal Bone Plug - [id number] Start: 08-24-2023 [place] Plate, 1 Level, Sz 18mm [id number] Start: 08-24-2023 [place] Self Start ing Variable Screw Size 4mm X 12mm [id number] Start: 08-24-2023 Unknown Unknown 10/09/21 Non Biological Unknown FDA Start: 10-09-2021 FDA Start: 10-09-2021 Functional Status Date Assessment Result Facility 12-23-2022 Functional Status N/A [facility] 11-06-2022 Functional Status N/A [facility] 11-06-2022 Functional Status [facility] 10-22-2022 Functional Status N/A [facility] 07-30-2022 Functional Status N/A [facility] 07-29-2022 Functional Status Yes [facility] 03-19-2022 Functional Status N/A [facility] 02-19-2022 N/A [facility] 02-09-2022 Functional Status N/A [facility] 02-02-2022 Functional Status N/A [facility] 01-12-2022 Functional Status N/A [facility] 12-24-2021 Functional Status N/A [facility] Clinical Notes 01-25-2003 to 01-26-2024 Telephone Encounter - Ventura De Jesus RN - 01/26/2024 12:13 PM EDTTelephone Encounter - Ventura De Jesus RN - 01/26/2024 12:13 PM EDTButt, Joo Gilbert MD - 11/01/2023 3:21 PM EDT Note Date & Type Note Facility 01-26-2024 Telephone encounter Note Neuro SPINE CARE COORDINATION QUICK NOTE The script was faxed but pt has not schedule the cervical plain films. She will call facility today to schedule. Pt is aware that the CD will need to be mailed to the office or images pushed via PACK system. [facility] Work Phone: 01-26-2024 Miscellaneous Notes Neuro SPINE CARE COORDINATION QUICK NOTE The script was faxed but pt has not schedule the cervical plain films. She will call facility today to schedule. Pt is aware that the CD will need to be mailed to the office or images pushed via PACK system. documented in this encounter [facility] 01-24-2024 Telephone encounter Note Call placed to the patient as she is now 6 months postop. Reports significant improvement in preoperative status no issues swallowing no issues with her incision. She has participated in formal physical therapy for her upper back spasms with significant relief she has no complaints at this time. She reports that she is pleased she underwent the surgery. She will obtain upright x-rays and return to see me after. All questions were answered she was thankful for the encounter on the phone call. Joo Cruz MD Spine Surgery. [facility] Work Phone: 01-24-2024 Miscellaneous Notes Call placed to the patient as she is now 6 months postop. Reports significant improvement in preoperative status no issues swallowing no issues with her incision. She has participated in formal physical therapy for her upper back spasms with significant relief she has no complaints at this time. She reports that she is pleased she underwent the surgery. She will obtain upright x-rays and return to see me after. All questions were answered she was thankful for the encounter on the phone call. Joo Cruz MD Spine Surgery. documented in this encounter [facility] 01-17-2024 Telephone encounter Note Neuro SPINE CARE COORDINATION QUICK NOTE Call to the pt @ Dr. Cruz request Pt will have x rays done locally ( she will my chart the facility name and fax) Virtual apt with Dr. Cruz on 01-21-24 @ 4 20 pm [facility] Work Phone: 01-17-2024 Miscellaneous Notes Neuro SPINE CARE COORDINATION QUICK NOTE Call to the pt @ Dr. Cruz request Pt will have x rays done locally ( she will my chart the facility name and fax) Virtual apt with Dr. Cruz on 01-21-24 @ 4 20 pm documented in this encounter [facility] 12-23-2023 Telephone encounter Note Printed and placed in pcp inbox. Godfrey Martin MA December 23, 2023 6:54 AM [facility] 12-23-2023 Miscellaneous Notes Printed and placed in pcp inbox. Godfrey Martin MA December 23, 2023 6:54 AM documented in this encounter [facility] 12-13-2023 Telephone encounter Note Rx sent as requested. [facility] 12-13-2023 Miscellaneous Notes Rx sent as requested. Patient is requesting a medication refill. Last appointment: 09/10/2023 Next scheduled appointment: Requested Prescriptions Pending Prescriptions Disp Refills celecoxib (CELEBREX) 200 mg capsule [Pharmacy Med Name: CELECOXIB 200 MG CAPSULE] 30 capsule 5 Sig: take 1 capsule by mouth every day Lauren Hernandez MA December 13, 2023 7:35 AM documented in this encounter [facility] 12-13-2023 Telephone encounter Note Patient is requesting a medication refill. Last appointment: 09/10/2023 Next scheduled appointment: Requested Prescriptions Pending Prescriptions Disp Refills celecoxib (CELEBREX) 200 mg capsule [Pharmacy Med Name: CELECOXIB 200 MG CAPSULE] 30 capsule 5 Sig: take 1 capsule by mouth every day Lauren Hernandez MA December 13, 2023 7:35 AM [facility] 11-30-2023 Telephone encounter Note Rx prescribed by neurosurg. Please forward to neurosurg as she has maintained care with that team. Reuben Agrawal PA-C [facility] 11-30-2023 Miscellaneous Notes Rx prescribed by neurosurg. [...] Nilda Herndon MA documented in this encounter [facility] 11-30-2023 Telephone encounter Note Distance Health: 09/10/23 Last ov: 04/09/23 Next ov: none Patient requests via MyChart refills as follows: Requested Prescriptions Pending Prescriptions Disp Refills gabapentin (NEURONTIN) 100 mg capsule 120 capsule 2 Sig: TAKE 2 CAPSULES BY MOUTH TWICE A DAY FOR 90 DAYS Please review and advise. Nilda Herndon MA [facility] 11-16-2023 Telephone encounter Note Received request for [...] 08/04/2023 0.79 0.58 - 0.96 mg/dL Final [facility] 11-16-2023 Miscellaneous Notes Received request for refill [...] 0.96 mg/dL Final documented in this encounter [facility] 11-12-2023 Telephone encounter Note Incoming fax received at 1 E office and scanned into patient chart. [facility] 11-12-2023 Miscellaneous Notes Incoming fax received at 1 E office and scanned into patient chart. documented in this encounter [facility] 11-01-2023 History of Presen t illness Narrative [...] severe depression 20-27 Severe depression PHYSICAL EXAM: [facility] 07/19/2023 (Exact Date) GENERAL APPEARANCE: Well nourished, [...] 3:21 PM PAGER: documented in this encounter [facility] 11-01-2023 Note HNO ID: [id number] Author: JOO CRUZ MD Service: ? Author [...] November 01, 2023 TIME: 3:21 PM PAGER: [facility] 11-01-2023 History of Presen t illness Narrative [...] PATIENT PRESENTS WITH AN IMPLANTABLE OR ATTACHED MANAGER BRANCH: No RADIOLOGY DEPARTMENT: General X-ray: Exam(s) Completed: Spine X-Ray(s): Cervical AP / LAT PERIPHERAL IV DATA: Not applicable SIGNED BY: RT Carlos Manuel(Heidy) November 01, 2023 3:18 PM documented in this encounter [facility] 11-01-2023 Note HNO ID: [id number] Author: YULY SUMMERS RT(R) Service: Radiology Author Type: Technologist Type: Progress [...] PATIENT PRESENTS WITH AN IMPLANTABLE OR ATTACHED MANAGER BRANCH: No RADIOLOGY DEPARTMENT: General X-ray: Exam(s) Completed: Spine X-Ray(s): Cervical AP / LAT PERIPHERAL IV DATA: Not applicable SIGNED BY: ORLIN Horowitz) November 01, 2023 3:18 PM [facility] 09-27-2023 Miscellaneous Notes Neuro SPINE CARE COORDINATION [...] Last OV: 09/10/23 documented in this encounter [facility] 09-10-2023 Note HNO ID: [id number] Author: REUBEN AGRAWAL PA-C Service: ? Author Type: Physician Admission Specialist Type: Progress Notes Filed: 09/10/2023 12:27 Note Text: Telemedicine Visit - Distance Health Virtual Visit Note Patient seen on [employer] Video Visit platform. Location of patient: [place] Reuben Agrawal PA-C I have communicated my name and active licensure. The patient's identity and physical location were verified at the time of this visit. Either the patient or their legal independent sales representative has been informed of the [...] I should be receiving information from her lacemaker regarding her disability case. PAST MEDICAL HISTORY Diagnosis Date Bipolar 1 disorder (HCC) Followed by psychiatry C. difficile diarrhea Cervical dysplasia or atypia status post cryo treatment Chlamydia 07/05/2004 DIMITRI (generalized anxiety disorder) 04/09/2023 Headache(784.0) 07/05/2009 Daily-qod, thoracic to base of skull, tightening, no time of day History of peptic ulcer large 2021 MDD (major depressive disorder), recurrent episode, mild ([facility]) 04/09/2023 Migraine headache 07/05/2003 Photophobia, nausea, [...] TWICE DAILY NEE (more content not included)... [facility] 09-10-2023 History of Presen t illness Narrative Telemedicine Visit - Distance Health Virtual Visit Note Patient seen on [employer] Video Visit platform. Location of patient: [place] Agrawal PA-C I have communicated my name and active licensure. The patient's identity and physical location were verified at the time of this visit. Either the patient or their legal independent sales representative has been informed of the [...] I should be receiving information from her lacemaker regarding her disability case. PAST MEDICAL HISTORY [...] Reuben Agrawal PA-C documented in this encounter [facility] 09-10-2023 Note HNO ID: [id number] Author: JOO CRUZ MD Service: ? Author [...] September 10, 2023 TIME: 9:38 AM PAGER: [facility] 09-10-2023 History of Presen t illness Narrative [...] 9:38 AM PAGER: documented in this encounter [facility] 09-09-2023 Miscellaneous Notes Fax came over for Occupational Therapy Re-certification Note from [facility]. Physician signed paperwork and was faxed back over to [place] with confirmation. Lauren Hernandez MA September 09, 2023 9:35 AM documented in this encounter [facility] 09-06-2023 Miscellaneous Notes Pt returned your call. [phone] Neuro SPINE CARE COORDINATION QUICK NOTE Procedure(s): ACDF C6/7 ( 08-24-23 ) Call to the pt and LM on identified VM documented in this encounter [facility] 08-27-2023 Miscellaneous Notes Incoming mail to 1 E office [employer]. Insurance document scanned into patient chart. documented in this encounter [facility] 08-26-2023 Miscellaneous Notes Images from the original note were not included. CALL FOR ER FOLLOW UP: Ladi was seen for cervical spinal fusion at Date:08/24/2023 - 08/25/2023 (30 hours) [facility] How is patient doing now? Sore from [...] MAY REPEAT IN 1 HOUR Palak INTERIANO event marketing intern of Stephani Douglas PA-C [place] [id number] TEL FAX documented in this encounter [facility] 08-25-2023 Note HNO ID: [id number] Author: NAPOLEON BISHOP MD Service: General Internal [...] Oral 65 18 96 % -- -- 08/24/23 2018 106/61 36.7 ?C (98.1 ?F) Oral 62 [...] which included preparing to see the patient, [id number] patient care, completing clinical documen (more content not included)... [facility] 08-25-2023 Note HNO ID: [id number] Author: DERIK AMARAL MD Service: Orthopaedic Surgery [...] Flexion Arm Extension Wrist Ext Wrist Flex Threshing Department Supervisor HI R 5 5 5 5 5 [...] page the orthopaedic on-call resident at: [facility] ([id number]) for [facility] patients [phone] for [facility] patients [address] for [facility] patients [address] for [facility] patients [address] for [facility] patients Please page [employer] ([id number]) from 7am-5pm and on weekends for any issues. [facility] 08-24-2023 Note HNO ID: [id number] Author: JOO CRUZ MD Service: Neurosurgery Author [...] page the orthopaedic on-call resident at: [facility] ([id number]) for [facility] patients [phone] for [facility] patients [facility] 08-24-2023 Note HNO ID: [id number] Author: RADAMES CARTY AA Service: ? Author Type: Processing Specialist Type: Anesthesia Procedure Notes Filed: 08/24/2023 12:56 [...] August 24, 2023 TIME: 12:55 PM CSN: [id number] [facility] 08-24-2023 Note HNO ID: [id number] Author: RADAMES CARTY AA Service: ? Author Type: Processing Specialist Type: Anesthesia Procedure Notes Filed: 08/24/2023 12:49 Note Text: ANESTHESIOLOGY PROCEDURE NOTE A-Line General Information Procedure Start Time/Medication Administration: 08/24/2023 12:23 PM Procedure End Time: 08/24/2023 12:33 PM Patient location during procedure: OR Timeout Performed Pre-procedure: timeout performed Consent Obtained: Yes Patient identity confirmed: arm band and patient Indications: continuous blood pressure monitoring Staffing CAA: Radames Carty AA Performed by: CAA Preparation Sterility Preparation: hand hygiene performed prior [...] August 24, 2023 TIME: 12:46 PM CSN: [id number] [facility] 08-24-2023 Note HNO ID: [id number] Author: JOO CRUZ MD Service: Neurosurgery Author Type: Physician Type: Progress Notes Filed: 08/24/2023 12:07 Note Text: Patient seen and examined. No neurological changes with prolonged hyperextension of neck. Moving all limbs 5/5. Reports L>R radicular complaints. Understands plan for surgery along with associated risks. All questions answered. Proceed with surgery. Joo Cruz MD Spine Surgery. [facility] 08-19-2023 Miscellaneous Notes Neuro SPINE CARE COORDINATION [...] appointment: 09/10/2023 Best number to reach caller: [phone] Best time to reach caller: anytime Is it OK to leave a detailed voice message? Yes Katey Orellana documented in this encounter [facility] 08-13-2023 Miscellaneous Notes Pt presented forms for healthcare provider regarding ability to donate up to 850mL of plasma twice a week due to her being dx with cerebellar tonsillar ectopia. I'm uncertain of any restrictions for plasma donation regarding her cerebellar tonsillar ectopia - of note - also planned to have C-spine surgery. Any recommendations/restrictions? Reuben Agrawal PA-C documented in this encounter [facility] 08-10-2023 History of Presen t illness Narrative [...] just get past . Currently employed at [employer]. 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 Smoker and [...] Physical Therapy and Occupational therapy : At [facility] 01/2023 - 05/31/2023 - 22 visits , restarted on 06/14 and 2022 Treating Physicians: Reuben LIZ - Internal Medicine - Referring Provider Dr Guallpa - Neurology Zoraida LIZ - Neurology - spine consult Dr. Roe -Spine - 2014 Dr. Guallpa - Neurology History of Spine Injections/Surgery: Cervical trigger points in 2015 with DAY Left Acl repair -2002 Throat [...] PTSD, DIMITRI - managed by Nitza Gonzalez GANG DRILL OPERATOR NEURO: Headaches, Numbness, and hx vertigo ENDOCRINE: [...] PRN Imaging Ordered: None SIGNATURE: Huy Ascencio APRN.LEILA PATIENT NAME: Ladi Byers DATE:August 10, 2023 TIME:3:14 PM documented in this encounter [facility] 08-10-2023 Note HNO ID: [id number] Author: HUY ASCENCIO APRN.LEILA Service: ? Author Type: Nurse Practitioner [...] just get past . Currently employed at [employer]. 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 Smoker and [...] Physical Therapy and Occupational therapy : At [facility] 01/2023 - 05/31/2023 - 22 visits , [...] Mental Health Percentile (more content not included)... [facility] 08-06-2023 Miscellaneous Notes Neuro SPINE CARE COORDINATION QUICK NOTE Call to the pt - due to ATB. Use for the tooth infection - she will postponed to 08-24-[address] Cruz documented in this encounter [facility] 08-02-2023 Note HNO ID: [id number] Author: CHANTAL HUMPHREY APRN.GANG DRILL OPERATOR Service: ? Author Type: Nurse Practitioner Type: Progress Notes Filed: 08/02/2023 12:22 Note Text: [facility] [place] [facility] Department of Cardiovascular Medicine SECTION OF CLINICAL CARDIOLOGY OUTPATIENT VISIT DATE August 02, 2023 OUTPATIENT VISIT TYPE ESTABLISHED PRIMARY CARE PHYSICIAN: Reuben Agrawal [address] [place] [address] CHIEF COMPLAINT: Follow Up HISTORY OF PRESENT [...] Abdomen: Soft, nontender (more content not included)... [facility] 07-29-2023 Note HNO ID: [id number] Author: YOGI HAY LPN Service: ? Author Type: LICENSED NURSE Type: Progress Notes Filed: 07/29/2023 10:48 Note Text: Neuro SPINE CARE COORDINATION VSEA PRE-OP VISIT Met with patient via VSEA for pre op education. Given both written and verbal instructions re : Skin prep, wound care, pain management and post op restrictions. Provided to patient: [facility] Surgery Guide, Spine Surgery Pre/post op education. Yes Reviewed with patient to report to desk J19 for surgery ? Yes. Reviewed with the patient to call [phone] the day before to get surgery report [...] : All questions answered. Yogi Hay LPN [facility] 07-26-2023 Note HNO ID: [id number] Author: JOO CRUZ MD Service: ? Author [...] depression 20-27 Severe depression OBJECTIVE: PHYSICAL EXAM: [facility] 03/31/2023 GENERAL APPEARANCE: Well nourished, well developed, [...] no autofusions noted ASSESSMENT/PLAN No diagnosis found. [place] (more content not included)... [facility] 07-15-2023 Evaluation note Encounter Date Diagnosis Assessment [...] understanding and is agreeable with treatment plan. [employer] Other 01-05-2024 NoteHNO ID: [id number] Author: TRISTAN GUALLPA MD Service: ? Author Type: Physician Type: Progress Notes Filed: 07/12/2023 06:58 Note Text: Impression: This is Ms. Ladi Byers, a 38 year old female who presents to the [facility] Neurology clinic with the chief complaint of [...] needed. Tristan Guallpa MD Staff, Neuromuscular Center [facility] [place] HPI: This is Ms. Ladi Byers, a 38 year old female who presents to the [facility] Neurology clinic with the chief complaint of [...] Distal finger flexion 5 5 Thumb abduction Threshing Department Supervisor Approx 5 5 Hip flexion Knee extension [...] included time spent preparing (more content not included)...[facility] 07-02-2023 NoteHNO ID: [id number] Author: Joo Cruz MD Service: ? 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 Author Type: Physician Type: Progress Notes Filed: 06/25/2023 11:36 AM Note Text: [facility] [place] SECTION OF REGIONAL CARDIOLOGY OUTPATIENT VISIT DATE June 25, 2023 OUTPATIENT VISIT TYPE NEW PRIMARY CARE PHYSICIAN: Reuben Agrawal [address] [place] [address] REFERRING PHYSICIAN: Maurice León [address] [place] [id number] Patient is being seen at the request of the referring physician for palpitations- HISTORY OF PRESENT ILLNESS: Ms. Byers is a 38 year old female, seen in clinic today as a new patient for evaluation of palpitations, right bundle branch block noted on EKG. Hx of palpitations with possible sinus tachycardia-seen an treated at [facility]. Was started on metoprolol in the [...] with psychiatrist [facility] [place]. REVIEW OF SYSTEMS: 10 systems reviewed and [...] I have personally reviewed ECG: Sinus rhythm, SD 108, right bundle branch block. PAST MEDICAL [...] 20 mg capsule pantoprazole (more content not included)...[facility] 06-18-2023 NoteHNO ID: [id number] Author: Jossy Martin RT(R) Service: ? Author [...] BY: RT Ramez(R) June 18, 2023 9:05 [facility]12-15-2023 Instructions* Patient Instructions* Huy Ascencio APRN.GANG DRILL OPERATOR - 06/18/2023 8:33 AM EST Images from the original note were not included. Chronic Neck Pain Overview: Neck pain is common. Approximately three out of four [place] adults will experience an episode of neck [...] or narcotic medications are not recommended for moth exterminator use. Other medications, particularly antidepressants, may be [...] prompt, urgent medical attention. SIGNATURE: Huy Ascencio APRN.GANG DRILL OPERATOR PATIENT NAME: Ladi Byers DATE: June 18, [...] 2023 TIME: 8:33 AM [facility] History of Present illness Narrative* Huy Ascencio [...] just get past . Currently employed at [employer]. 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 Smoker and [...] Physical Therapy and Occupational therapy : At [facility] 01/2023 - 05/31/2023 - 22 visits , [...] Physical Therapy and Occupational therapy : At [facility] 01/2023 - 05/31/2023 - 22 visits ,restarted [...] 18, 2023 TIME:7:56 AM documented in this [facility]12-[facility]-2023 NoteHNO ID: [id number] Author: Huy Ascencio APRN.CNP Service: ? Author Type: Nurse Practitioner Type: [...] just get past . Currently employed at [employer]. 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 Smoker and [...] Physical Therapy and Occupational therapy : At [facility] 01/2023 - 05/31/2023 - 22 visits , restarted on 06/14 and 2022 Treating Physicians: Reuben LIZ - Internal Medicine - Referring Provider Dr Guallpa - Neurology Zoraida LIZ - Neurology - spine consult Dr. Roe -Spine - 2014 Dr. Guallpa - Neurology History of Spine Injections/Surgery: Cervical trigger points in 2015 with DAY Left Acl repair -2002 Throat [...] PAST MEDICAL HISTORY Diag (more content not included)...[facility]12-11-2023 Miscellaneous Notes* Telephone Encounter - Godfrey Martin MA - 06/14/2023 1:28 PM EST OT note received from rehab services. Needs signed and faxed back. In pcp inbox. Godfrey Martin MA June 14, 2023 1:29 PM [facility] Miscellaneous Notes* Telephone Encounter - Reuben Agrawal PA-C - 06/03/2023 3:54 PM EST Notified the contact who had notified me of it not being covered Reuben Agrawal PA-C documented in this [facility]23 Miscellaneous Notes* Telephone Encounter - Godfrey Martin [...] calling: self Call patient at: on cell [phone] (home) [phone] (cell) Was an appointment scheduled: No Closing statement: Results or non-symptom based questions: Thank you for calling [facility], your call will be returned within the next business day. Ladi Bocanegra documented in this encounterFair[facility]11-30-2023 Miscellaneous Notes* Telephone Encounter - Reuben Agrawal [...] - appt 06/18 We never received any STEEP TENDER records that we requested including any paps Maintain care with STEEP TENDER High risk to be 35+ years old smoking and on combination oral control. Increased risk for blood clots/stroke. Would not recommend she be on it. Work with STEEP TENDER regarding options/recommendations. Will send [employer] message to pt Reuben Agrawal PA-C documented in this encounterFair[facility]10-13-2023 NoteHNO ID: [id number] Author: Nitza Yarbrough LSW Service: ? Author Type: Vice Principal Type: Progress Notes Filed: 04/16/2023 3:39 PM Note Text: Primary Care Social Work Provider Action / FYI PCP Action Date of Service: 04/16/2023 Patient identified by name and date of : Yes- via [employer] Referral Source: Pursue Patient Outreach: Follow Up Mode of Outreach: [employer] Response Time: Contact made Patient Identified Needs: Food: Resource eligibility limitations Assessment Provide Patient Resources PCSW Action Taken Provide Patient Resources Is the patient ready for discharge? Yes Social Barrier resolution or patient discharge reason: Patient self-managing with resources given Narrative: PCSW received return message from patient via [employer]. She stated she is interested in additional food resources. At this time she is awaiting SNAP and Medicaid benefits. SW was able to locate local food pantries that serve patient's area. SW provided a list and encouraged patient to reach out for additional needs. Interventions: Discharge from PCSW panel JACOB Sanchez April 16, 2023 3:33 PM [facility] [employer] Wednesdays 1pm-5pm [address] [facility] [address] [facility] [address] Mon,Tues, Fri 9am-12pm and 1pm-3pm [facility] [employer] [address] [place] [address] Community Action Commission of [facility] AND [facility] Open M-F 9am-3:30pm [address] [place] [address] [facility] History of Present illness Narrative* Nitza Yarbrough LSW - 04/16/2023 1:45 PM EDT Primary Care Social Work Provider Action / FYI PCP Action Date of Service: 04/16/2023 Patient identified by name and date of : Yes- via [employer] Referral Source: Pursue Patient Outreach: Follow Up Mode of Outreach: MyChart Response Time: Contact made Patient Identified Needs: Food: Resource eligibility limitations Assessment Provide Patient Resources PCSW Action Taken Provide Patient Resources Is the patient ready for discharge? Yes Social Barrier resolution or patient discharge reason: Patient self-managing with resources given Narrative: PCSW received return message from patient via [employer]. She stated she is interested in additional food resources. At this time she is awaiting SNAP and Medicaid benefits. SW was able to locate local food pantries that serve patient's area. SW provided a list and encouraged patient to reach out for additional needs. Interventions: Discharge from PCSW panel JACOB Sanchez April 16, 2023 3:33 PM [place] [employer] Wednesdays 1pm-5pm [address] [facility] [employer] [address] [place] - [address] Mon,Tues, Fri 9am-12pm and 1pm-3pm [facility] [address] [facility] [place] [facility] [address] Community Action Commission of [facility] Open M-F 9am-3:30pm [address] [facility] [phone] documented in this encounterFairfield Medical Center10-13-2023 NoteHNO ID: [id number] Author: Zoraida Valle PA-C Service: ? Author Type: Physician Admission Specialist Type: Progress Notes Filed: 04/16/2023 7:27 AM Note Text: This note was created using NoteWriter. Subjective Ladi Byers is a 38 year [...] able to work. 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 This virtual visit was conducted via [employer] which is a HIPAA compliant video platform. I received consent from the patient to perform the visit using this platform. The visit required patient-provider interaction for the medical decision making as documented herein. I have communicated my name and active licensure. The patient's identity and physical location were verified at the time of this visit. Either the patient or their legal independent sales representative has been informed of the risks and benefits of -- and alternatives to -- treatment through a remote evaluation and consents to proceed with the evaluation remotely.[facility]10-13-2023 NotePatient Outreach (RASHIDA) LADI BYERS ([id number]) 1985 F Date Time Provider Department 04/16/23 NITZA YARBROUGH During your visit today, we recorded the following information about you: Nitza Yarbrough LSW 04/16/2023 3:39 PM Signed Primary Care Social Work Provider Action / FYI PCP Action Date of Service: 04/16/2023 Patient identified by name and date of : Yes- via [employer] Referral Source: Pursue Patient Outreach: Follow Up Mode of Outreach: [employer] Response Time: Contact made Patient Identified Needs: Food: Resource eligibility limitations Assessment Provide Patient Resources PCSW Action Taken Provide Patient Resources Is the patient ready for discharge? Yes Social Barrier resolution or patient discharge reason: Patient self-managing with resources given Narrative: PCSW received return message from patient via [employer]. She stated she is interested in additional food resources. At this time she is awaiting SNAP and Medicaid benefits. SW was able to locate local food pantries that serve patient's area. SW provided a list and encouraged patient to reach out for additional needs. Interventions: Discharge from PCSW panel JACOB Sanchez April 16, 2023 3:33 PM [place] [employer] Wednesdays 1pm-5pm [address] [facility] [employer] [address] [place] - [address] Mon,Tues, Fri 9am-12pm and 1pm-3pm [facility] [address] [place], [place] - [address] Community Action Commission [facility] Open M-F 9am-3:30pm [address] [facility] [phone] Allergies As of Date: 04/16/2023 Noted Allergy [...] epis*04/09/2023 Encounter Status:Closed by NITZA YARBROUGH on 04/16/23[facility] 04-15-2023 NoteHNO ID: [id number] Author: Nitza Yarbrough LSW Service: ? Author Type: Vice Principal Type: Progress Notes Filed: 04/15/2023 4:09 PM Note Text: Primary Care Social Work Provider Action / FYI PCP Action Date of Service: 04/15/2023 Patient identified by name and date of : Yes- via [employer] Referral Source: Pursue Patient Outreach: Initial Mode of Outreach: [employer] Response Time: Unable to reach (1st Attempt) Left message by: [employer] Message JACOB Sanchez April 15, 2023 4:09 [facility]10-12-2023 NoteHNO ID: [id number] Author: Ladi Stevens RT(R) Service: ? Author [...] PERIPHERAL IV DATA: Not applicable SIGNED BY: ORLIN Edwards) April 15, 2023 10:46 [facility]10-12-2023 History of Present illness Narrative* Ladi Stevens [...] PERIPHERAL IV DATA: Not applicable SIGNED BY: ORLIN Edwards) April 15, 2023 10:46 AM documented in this encounterFair[facility] Center10-12-2023 NotePatient Outreach (RASHIDA) JAMALADI ([id number]) 1985 F Date Time Provider Department 04/15/23 NITZA YARBROUGH During your visit today, we recorded the following information about you: Nitza Yarbrough LSW 04/15/2023 4:09 PM Signed Primary Care Social Work Provider Action / FYI PCP Action Date of Service: 04/15/2023 Patient identified by name and date of : Yes- via [employer] Referral Source: Pursue Patient Outreach: Initial Mode of Outreach: [employer] Response Time: Unable to reach (1st Attempt) Left message by: [employer] Message JACOB Sanchez April 15, 2023 4:09 [...] epis*04/09/2023 Encounter Status:Closed by NITZA YARBROUGH on 04/15/23[facility] 04-12-2023 Miscellaneous Notes* Telephone Encounter - Yue Burkett MA - 04/12/2023 11:52 AM EDT Records received and printed for provider will hand to provider documented in this encounterFairfield Medical Center10-06-2023 NoteHNO ID: [id number] Author: Reuben Agrawal PA-C Service: ? Author Type: Physician Admission Specialist Type: Progress Notes Filed: 04/09/2023 5:54 PM Note Text: Subjective HPI Patient here to establish care. She'd like to get nearly all of her medical care in one system - except for psychiatry because she likes her psych and it's quite difficult to find a new psychiatrist. She really enjoyed her previous PCP which was an BENCH BORING MACHINE OPERATOR - thinks her labs were done earlier this year. 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 Psych: She reports a hx of depression, [...] denied because she needed to see a nipple machine operator. She suspects they didn't submit the right information for authorization. She also reports that the nipple machine operator verbally told psychiatry it was okay - but that documentation suggested otherwise so psychiatry will not refill/change medications. She had a stress test previously with cardiology - reports it ws done at [facility] which is part of the [facility]. TMJ: Pt reports she was previously dx [...] She takes Imitrex prn. She's followed by [facility] - mild cerebellar tonsillar ectopia. MRI C-spine ordered. C-spine: She reports ongoing neck pain and upper back pain. She has had imaging including xray. She's followed by [facility] - mild cerebellar tonsillar ectopia. MRI C-spine ordered. She requests an order for PT and OT - previously was seeing therapy but wishes to transfer all care to [facility]. She takes naproxen daily and flexeril prn. IBS: She reports a history of irritable bowel syndrome. She has had a colonoscopy in the past - done at [facility]. She takes Bentyl prn with benefit. PUD: She reports a history of a gastric ulcer. She has had an EGD in the past - done at [facility]. She takes pantoprazole daily. She also takes naproxen daily. She also reports hx of fibromyalgia and nephrolithiasis. STEEP TENDER: She's followed by STEEP TENDER annually. She has a history of abnormal [...] mouth., Disp: , Rfl: (more content not included)...[facility]10-06-2023 History of Present illness Narrative* Reuben Agrawal PA-C - 04/09/2023 5:16 PM EDT Subjective HPI Patient here to establish care. She'd like to get nearly all of her medical care in one system - except for psychiatry because she likes her psych and it's quite difficult to find a new psychiatrist. She really enjoyed her previous PCP which was an BENCH BORING MACHINE OPERATOR - thinks her labs were done earlier this year. Pt currently in [employer] school at [employer]. Psych: She reports a hx of depression, [...] denied because she needed to see a nipple machine operator. She suspects they didn't submit the right information for authorization. She alsoreports that the nipple machine operator verbally told psychiatry it was okay - but that documentation suggested otherwise so psychiatry will not refill/change medications. She had a stress test previously withcardiology - reports it ws done at [facility] which is part of the [facility]. TMJ: Pt reports she was previously dx [...] She takes Imitrex prn. She's followed by [facility] - mild cerebellar tonsillar ectopia. MRI C-spine ordered. C-spine: She reports ongoing neck pain and upper back pain. She has had imaging including xray. She's followed by [facility] - mild cerebellar tonsillar ectopia. MRI C-spine ordered. She requests an order for PT and OT - previously was seeing therapy but wishes to transfer all care to [facility]. She takes naproxen daily and flexeril prn. IBS: She reports a history of irritable bowel syndrome. She has had a colonoscopy in the past - done at [facility]. She takes Bentyl prn with benefit. PUD: She reports a history of a gastric ulcer. She has had an EGD in the past - done at [facility]. She takes pantoprazole daily. She also takes naproxen daily. She also reports hx of fibromyalgia and nephrolithiasis. STEEP TENDER: She's followed by STEEP TENDER annually. She has a history of abnormal [...] CONSULT TO PHYSICAL THERAPY - CONSULT TO AQUARIUM SPECIALIST 5. TMJ disorder, unspecified - ICD9: 524.60, [...] CONSULT TO PHYSICAL THERAPY - CONSULT TO AQUARIUM SPECIALIST 8. Upper back pain - ICD9: 724.5, ICD10: M54.9 Likely also related to neck pain. Referral to PT/OT made. - CONSULT TO PHYSICAL THERAPY - CONSULT TO AQUARIUM SPECIALIST 9. History of peptic ulcer - ICD9: [...] that required tx and is followed by STEEP TENDER annually. Will request records. Records requested Colonoscopy with pathology EGD with pathology Stress test Previous PT and OT notes Previous PCP records for history Last 1-2 years of labs from PCP Last paps and note from STEEP TENDER EKGs done within the past year To Do Still need to obtain/review family history Review records Evaluate if she had Hep C screening Update pap in health maintenance Update vaccinations on file Recheck BP Reuben Chan. ABA Agrawal I spent a total of 95 minutes on the date of the service which included preparing to see the patient, ilwl-lg-ysuw patient care, completing clinical documentation, performing a medically appropriate examination, counseling and educating the patient/family/caregiver, and ordering medications, tests,or procedures. documented in this encounterFairfield [facility] Center10-06-2023 Miscellaneous Notes* Telephone Encounter - Lauren Hernandez MA - 04/09/2023 3:58 PM EDT Just sent over a request for medical records for [facility]. Lauren Hernandez MA April 09, 2023 3:59 PM documented in this encounterFairfield Medical Center10-06-2023 Miscellaneous Notes* Telephone Encounter - Lauren Hernandez MA - 04/09/2023 3:55 PM EDT Just sent over a request for medical records for [facility]. Lauren Hernandez MA April 09, 2023 3:56 PM documented in this encounterFairfield Medical Center10-06-2023 Miscellaneous Notes* Telephone Encounter - Lauren Hernandez MA - 04/09/2023 3:53 PM EDT Just sent over a request for medical records for [facility] PICU NURSE. Lauren Hernandez MA April 09, 2023 3:54 PM documented in this encounterFairfield Medical Center10-06-2023 Miscellaneous Notes* Telephone Encounter - Lauren Hernandez MA - 04/09/2023 3:49 PM EDT Just sent over a request for medical records for [facility]. Lauren Hernandez MA April 09, 2023 3:51 PM documented in this encounterFairfield Medical Center10-04-2023 NoteHNO ID: [id number] Author: Maurice León MD Service: ? Author Type: Physician Type: Progress Notes Filed: 04/07/2023 3:57 PM Note Text: GENERAL VISIT Patient seen on [employer] video visit platform. I have communicated my name and active licensure. The patient's identity and physical location were verified at the time of this visit. Either the patient or their legal independent sales representative has been informed of the [...] h/o of being followed by [facility], and multiple psychiatry meds and diagnoses, needing to establish with a [facility] PCP (prefers [facility] as lives near [place]), as well as needing a Paint Spraying Machine Operator Helper through [facility], to medically clear her for adjustment of her psychiatric medications, d/t findings on EKG performed at PSYCH evaluation by her local PSYCH team and [facility]. Dx Cerebral Tonsillar Ectopia, and mild post spondylosis C5-C7, seeing PT and OT, has been very helpful. Had last PT appt that insurance would cover, as of right now no surgery will be needed, d/t relief she has been able to achieve, but needs relationship with PCP to allow additional PT/OT authorization. Sees Mental health for PTSD, Anxiety and Depression, from [facility] [facility] and PSYCH won't recommend change in meds till cardiac clearance. Patient used to take seroquel for sleep, but given EKG PSYCH says needs ECHO, but insurance won't approve ECHO w/o consult to CARDIOLOGY first. Per CARDIOLOGY NOTE from [facility], dated 03-04-23: Patient here for 1 year follow up chest pain and palpitations. She was seen in [facility] in November 2022 for GI issues. [...] as needed Kylee Valencia MD Interventional Cardiology [facility] Reviewed: problem list, medical/surgical/family/social history, medications, and allergies EKG: asked patient to upload through [facility], see under SCANNED DOCUMENTS from today Unconfirmed reading: Sinus rhythm with frequent VPC's, RBBB (120+ ms QRS orientation), Left anterior fascicular block, Moderate T-Wave abnormality, Abnormal EKG (Vent rate 69, SD 122, QRS 138, QT/QTc 488/507 ALLERGIES Allergen [...] BY MOUTH TWICE DA (more content not included)...[facility]10-04-2023 History of Present illness Narrative* Maurice León MD - 04/07/2023 3:05 PM EDT GENERAL VISIT Patient seen on [employer] video visit platform. I have communicated my name and active licensure. The patient's identity and physical location wereverified at the time of this visit. Either the patient or their legal independent sales representative has been informed of the [...] h/o of being followed by [facility], and multiple psychiatry meds and diagnoses, needing to establish with a [facility] PCP (prefers [facility] as lives near [place]), as well as needing a Paint Spraying Machine Operator Helper through [facility], tomedically clear her for adjustment of her psychiatric medications, d/t findings on EKG performed atPSYCH evaluation by her local PSYCH team and [facility]. Dx Cerebral Tonsillar Ectopia, and mild post spondylosis C5-C7, seeing PT and OT, has been very helpful. Had last PT appt that insurance wouldcover, as of right now no surgery will be needed, d/t relief she has been able to achieve, but needs relationship with PCP to allow additional PT/OT authorization. Sees Mental health for PTSD, Anxiety and Depression, from [facility] and PSYCH won't recommend change in meds till cardiac clearance. Patient used to take seroquel for sleep, but given EKG PSYCH says needs ECHO, but insurance won't approve ECHO w/o consult to CARDIOLOGY first. Per CARDIOLOGY NOTE from [facility], dated 03-04-23: Patient here for 1 year follow up chest pain and palpitations. She was seen in [facility] in November 2022 for GI issues. [...] as needed Kylee Valencia MD Interventional Cardiology [facility] Reviewed: problem list, medical/surgical/family/social history, medications, and allergies EKG: asked patient to upload through [employer], see under SCANNED DOCUMENTS from today Unconfirmed reading: Sinus rhythm with frequent VPC's, RBBB (120+ ms QRS orientation), Left anterior fascicular block, Moderate T-Wave abnormality, Abnormal EKG (Vent rate 69, SD 122, QRS 138, QT/KWa413/507 ALLERGIES Allergen Reactions Cariprazine Other: See Comments, [...] on last reading, patient is comfortable with [place] location - ESTABLISH WITH PRIMARY CARE - [...] which included preparing to see the patient, sfsd-wf-whot patient care, completing clinical documentation, obtaining and/or reviewing separately obtained history, performing a medically appropriate examination, counseling and educating the pat ient/family/caregiver, ordering medications, tests, or procedures, communicating with other HCPs (not separately reported), independently interpreting results (not separately reported), communicatingresults to the patient/family/caregiver, and care coordination (not separately reported). Maurcie León MD documented in this encounterFairfield Medical Center10-04-2023 Nurse Note* Madelyn Meade MA - 04/07/2023 9:35 AM EDT Items addressed in this encounter: Virtual Visit Pre Check In Checked in name and location verified patient aware of Telehealth appointment with Dr Romelia Meade MA April 07, 2023 9:35 AM 9:35 AM documented in this encounterFairfield Medical Center09-22-2023 Miscellaneous Notes* Telephone Encounter - Néstor Lees - 03/26/2023 11:10 AM EDT General Call Caller : pt Contact Reason for Call : Pt would like to discuss receiving an order for an ECHO. She also would like to discuss the continuation of Gabapentin, as the prescribing physician will no longer refill Patient requesting return call ? Yes documented in this encounterFairfield Medical Center09-14-2023 NoteHNO ID: [id number] Author: Zoraida Valle PA-C Service: ? Author Type: Physician Admission Specialist Type: Progress Notes Filed: 03/18/2023 8:00 AM Note Text: This note was created using [employer]. Subjective Ladi Byers is a 38 year [...] able to work. 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 Can be vv Pt given number [phone] Or can call [phone]. I spent a total of 50 minutes on the date of the service which included preparing to see the patient, xgjr-ff-lxwk patient care, completing clinical documentation, obtaining and/or reviewing separately obtained history, counseling and educating the patient/family/caregiver, ordering medications, tests, or procedures, communicating with other HCPs (not separately reported), independently interpreting results (not separately reported), communicating results to the patient/family/caregiver, and care coordination (not separately reported). This virtual visit was conducted via [employer] which is a HIPAA compliant video platform. I received consent from the patient to perform the visit using this platform. The visit required patient-provider interaction for the medical decision making as documented herein. I have communicated my name and active licensure. The patient's identity and physical location were verified at the time of this visit. Either the patient or their legal independent sales representative has been informed of the risks and benefits of -- and alternatives to -- treatment through a remote evaluation and consents to proceed with the evaluation remotely.[facility]09-14-2023 History of Present illness Narrative* Zoraida Valle PA- C - 03/18/2023 7:14 AM EDT This note was created using [employer]. Subjective Ladi Byers is a 38 year [...] able to work. 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 Can be vv Pt given number [phone] Or can call [phone]. I spent a total of 50 minutes on the date of the service which included preparing to see the patient, xazq-rr-wnuj patient care, completing clinical documentation, obtaining and/or reviewing separately obtained history, counseling and educating the patient/family/caregiver, ordering medications, sascha ts, or procedures, communicating with other HCPs (not separately reported), independently interpreting results (not separately reported), communicating results to the patient/family/caregiver, and care coordination (not separately reported). This virtual visit was conducted via [employer] which is a HIPAA compliant video platform. I received consent from the patient to perform the visit using this platform. The visit required patient-provider interaction for the medical decision making as documented herein. I have communicated my name and active licensure. The patient's identity and physical location wereverified at the time of this visit. Either the patient or their legal independent sales representative has been informed of the risks and benefits of -- and alternatives to -- treatment through a remote evaluation andconsents to proceed with the evaluation remotely. documented in this encounterFairfield Medical Center09-01-2023 History of Present illness Narrative* Tristan Guallpa MD - 03/05/2023 11:00 AM EDT Impression: This is Ms. Ladi Byers, a 38 year old female who [facility]. New complaints [...] care. Tristan Guallpa MD Staff, [facility] [place] HPI: This is Ms. Ladi Byers, a 38 year old female who presents to the [facility] for follow up. Review: Just seen by virtual visit 02/26/2023. This is Ms. Ladi Byers, a 38 year old female who presents to the [facility] for follow up. 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 documented in this encounterFairfield Medical Center09-01-2023 NoteHNO ID: [id number] Author: Tristan Guallpa MD Service: ? Author Type: Physician Type: Progress Notes Filed: 03/10/2023 10:24 PM Note Text: Impression: This is Ms. Ladi Byers, a 38 year old female who presents to the [facility] for follow up. New complaints [...] care. Tristan Guallpa MD Staff, [facility] [place] HPI: This is Ms. Ladi Byers, a 38 year old female who presents to the [facility] for follow up. Review: Just seen by virtual visit 02/26/2023. This is Ms. Ladi Byers, a 38 year old female who presents to the [facility] for follow up. 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 She was seen in [facility] in November 2022 for GI issues. It was advised she stop Seroquel due to her ECG. She stopped it for awhile, but then started it back up less than 1 week ago. Still gets intermittent chest pain and palpitations.[facility]08-31-2023 NoteCardiology Follow Up Progress Note Chief Complaint: [...] All questions were answere (more content not included)...[facility]08-29-2023 Miscellaneous Notes* Telephone Encounter - Corina Osman - 03/02/2023 10:07 AM EDT Received Attending Physician Statement by fax from [facility]. Scanned to patient's chart for review. documented in this encounterFairfield Medical Center08-29-2023 Miscellaneous Notes* Telephone Encounter - Genaro Vee RN - 03/02/2023 9:[address] Guallpa aware of outside medical records available in scanned documents Genaro Vee RN BSN [facility] [place] * Telephone Encounter - Corina Osman - 03/02/2023 8:54 AM EDT Received PT Recertification addendum by fax from [facility]. Scanned to patient's chart for provider review. documented in this encounterFairfield Medical Center08-28-2023 Miscellaneous Notes* Telephone Encounter - Genaro Vee RN - 03/01/2023 1:47 PM EDT Called Kodi at [facility] Explained that Dr Guallpa and pt had a discussion that pt's PCP would order the aquatherapy Per her request I faxed office note from Dr Guallpa attn Kodi [phone] Genaro Vee RN BSN [facility] [place] * Telephone Encounter - Genaro Vee RN - 03/01/2023 12:[address] Guallpa aware Genaro Vee RN BSN [facility] [place] * Telephone Encounter - Jr Mark - 03/01/2023 11:57 AM EDT Kodi from [facility] calling to see if the provider could sign and fax back the recertification ZACH. She can be reached at [phone] if any questions. * Telephone Encounter - Genaro Vee RN - 02/22/2023 2:[address] Ramu Vee ELEMENTARY ASSISTANT TEACHER [facility] [place] * Telephone Encounter - Jr Mark - 02/22/2023 2:21 PM EDT Received a fax from [facility] requesting a physician signature on a P.T. recertification dated 02/19/23. Scanned into [employer]. documented in this encounterFairfield Medical Center08-25-2023 History of Present illness Narrative* Tristan Guallpa MD - 02/26/2023 11:00 AM EDT I received consent from the patient to perform the visit as a virtual encounter. Individuals who were included in, or assisted with the encounter were: Ladi Byers Tristan Guallpa MD Location: home Impression: This is Ms. Ladi Byers, a 38 year old female who [facility] the [facility] for follow up. Seen initially [...] needed Tristan Guallpa MD Staff, [facility] [place] HPI: This is Ms. Ladi Byers, a 38 year old female who presents to the [facility] for follow up. Review: Last seen 01/15 by virtual visit. This is Ms. Ladi Byers, a 37 year old female who presents to the [facility] for follow-up. Seen previously in [...] Sabra maneuver exercises to the patient via [employer]. - Follow-up with primary care. Could discuss [...] patient/documenting in the chart. documented in this encounterFairfield Medical Center08-25-2023 NoteHNO ID: [id number] Author: Tristan Guallpa MD Service: ? Author [...] year old female who presents to the [facility] for follow up. Seen initially [...] needed Tristan Guallpa MD Staff, [facility] [place] HPI: This is Ms. Ladi Byers, a 38 year old female who presents to the [facility] for follow up. Review: Last seen 01/15 by virtual visit. This is Ms. Ladi Byers, a 37 year old female who presents to the [facility] for follow-up. Seen previously in [...] Sabra maneuver exercises to the patient via [employer]. - Follow-up with primary care. Could discuss [...] spent talking to the patient/documenting in the chart.[facility]06-30-2023 Miscellaneous Notes* Telephone Encounter - Genaro Vee RN - 01/01/2023 4:51 PM EDT Called [facility] [phone] She reports she evaluated pt last week [...] any further therapy with pt Genaro Vee RN BSN [facility] [place] * Telephone Encounter - Janel Villagomez - 01/01/2023 3:51 PM EDT Received call from SARITHA Arguello at [facility], who has concerns about new symptoms patients is having. She would like to speak to either nurse or provider regarding this. [facility] Cell [phone] ok to leave message documented in this encounterFairfield Medical Center06-22-2023 Hospital Discharge instructions Patient Education 12/24/2022 00:35:36 [...] medicines. ?Antacids. ?Antidepressants. ?Antihistamines. ?Medicines for migraines. ?Blor-npz-njbsefe pain medicine. ?Over-the counter diet supplements. Severe nausea and vomiting may require you to stay at the hospital. You may need IV fluids to prevent or treat dehydration. Follow these instructions at home: During an episode Take pavi-dqq-xctzkov and prescription medicines only as told by [...] avoid spicy or fatty foods, such as puerto rican fries and pizza. General instructions Monitor your [...] provider. Document Revised: 01/28/2022 Document Reviewed: 01/28/2022 [employer] Patient Education 2022 [employer]. 12/24/2022 00:35:36 Hypokalemia Hypokalemia Hypokalemia means that [...] products, such as yogurt. General instructions Take edrd-tnb-efanvlg and prescription medicines only as told by [...] provider. Document Revised: 03/05/2022 Document Reviewed: 03/05/2022 [employer] Patient Education 2022 [employer]. Follow Up Care 12/23/2022 19:37:14 With:Vito ROBERTSON Address: [address] [place] [address]. [address] [place] [id number] Business (1) When:12/27/2022 Comments:Call to discuss your ongoing cyclic vomiting.Abstain from marijuana for 6 months to determine if this may be the cause.Take antinausea meds only as prescribed. There is increased risk of these medications for you given your prolonged QTc. Only take 1 antiemetic at this time. Follow-up with your card iologist to discuss your QTc prolongation further. With:TERESA PATEL Address: [address] [place] [address]- [phone] [employer] (1) When:12/27/2022 Comments:Call the office of your [...] weakness, or any new or worsening symptoms. [facility]06-21-20[facility] Evaluation + Plan noteExtracted from: Title:ED Note [...] by PCR 10/22/22 * Gastrin Level 11/09/22 [facility]05-06-2023 Hospital Discharge instructions Patient Education 11/07/2022 16:53:43 [...] products, such as yogurt. General instructions Take dmxs-xom-tgyxkhx and prescription medicines only as told by [...] provider. Document Revised: 03/05/2022 Document Reviewed: 03/05/2022 [employer] Patient Education 2022 [employer] [place] [employer]. Follow Up Care 11/06/2022 14:31:05 With:Vito ROBERTSON Address: [address] [place] [address] Business (1) When: Unknown With:TERESA PATEL Address: [address] [place] [phone] Business (1) When: Unknown [facility] Evaluation + Plan noteExtracted from: Title:Discharge Note [...] oral capsule With When Contact Information Vito ROBERTSON [address] [place] [address] Business (1) Additional Instructions: TERESA PATEL In 0 days [address] [place] [phone] Business (1) Additional Instructions: Extracted from: Title:ED [...] Date:11/19/2022 09:20:00 AM Scheduled Provider:Amara Palacio CNP Location[facility] Type:[facility] Follow Up Diagnostic Tests Pending * Clostridium Difficile PCR 11/06/22 * Acute Hepatitis A B C Panel 11/07/22 Future Scheduled Tests Laboratory* Fecal WBC Lactoferrin 10/22/22 * Giardia lamblia, Direct Detection EIA 10/22/22 * O & P Exam, Routine 10/22/22 * Clostridium Difficile PCR 10/22/22 * Enteric Panel by PCR 10/22/22 [facility] Hospital Discharge instructions Patient Education 10/22/2022 10:51:58 [...] Follow these instructions at home: Medicines Take uohn-fvf-ykeujqn and prescription medicines only as told by [...] Watch your condition for any changes. Take dlmc-hhr-tcrefdl and prescription medicines only as told by [...] provider. Document Revised: 08/09/2020 Document Reviewed: 10/30/2019 [employer] Patient Education 2022 [employer] [place] [employer]. Follow Up Care 10/14/2022 11:29:35 With:Amara Palacio CNP Address: When:[address] [facility] 01-26-2023 Evaluation + Plan note Future Scheduled Tests Laboratory* Ktcjr-0-Rpdvindtnvt 07/30/22 * Ceruloplasmin 07/30/22 * Antimitochondrial Antibody, [...] * Iron Level 07/30/22 * Transferrin 07/30/22 [facility] Evaluation + Plan noteExtracted from: Title:ED Note [...] day(s), # 28 cap(s), Refills(s) 0, Pharmacy: [facility]/pharmacy #[id number], 152, cm, 07/29/22 2:29:00 EST, Height/Length [...] Daily, # 30 tab(s), Refills(s) 0, Pharmacy: [facility]/pharmacy #[id number], 152, cm, 07/29/22 2:29:00 EST, Height/Length [...] day(s), # 56 tab(s), Refills(s) 0, Pharmacy: [facility]/pharmacy #[id number], 152, cm, 07/29/22 2:29:00 EST, Height/Length Dosing, 64, kg, 07/29/22 2:29:00 EST, Weight Dosing Automated Diff Basic Metabolic Panel CBC w/ Auto Diff CT Abdomen/Pelvis w/ Contrast eGFR Hepatic Function Panel Lipase Level U Beta Hcg Qual UA With Cult Reflex Future Appointments Appointment Date:07/30/2022 12:30:00 PM Scheduled Provider:Vito ROBERTSON MD Location[place] Type[facility] Follow Up Future Scheduled Tests Laboratory* Gastrin Level 12/24/21 [facility]23 Hospital Discharge instructions Patient Education 07/29/2022 05:43:13 [...] Follow these instructions at home: Medicines Take usrj-lky-zhzkejc and prescription medicines only as told by [...] Watch your condition for any changes. Take oevg-gxe-crbvlpe and prescription medicines only as told by [...] 03/31/2006 Document Revised: 10/30/2019 Document Reviewed: 10/30/2019 [employer] Patient Education 2019 [employer] Follow Up Care 07/29/2022 02:21:57 With:Vito ROBERTSON Address: [address] [place] [address] Business (1) When:08/01/2022 With:TERESA PATEL Address: [address] [place] [phone] Business (1) When:08/01/2022 [facility]16[facility] Evaluation + Plan note Diagnostic Tests Pending * Clostridium difficile by PCR 03/20/22 Future Scheduled Tests Laboratory* Gastrin Level 12/24/21 [facility]20[facility] Evaluation + Plan note Future Scheduled Tests Laboratory* Clostridium difficile by PCR 03/19/22 * Gastrin Level 12/24/[address] [facility] [id number] History of Present illness Narrative* Brooks Lamb [...] for internal providers or letter via the [employer] for external providers. HPI: Ladi [...] Comments Metoclopramide Other: See Comments Penicillins Hives Regshubham [Metoclopram* Mental Status Change Medications: busPIRone (BUSPAR) [...] DATE: 03/19/22 TIME: 8:13 AM CC: Amara Palacio CNP [facility] Discharge instructions Patient Education 02/19/2022 10:44:55 Peptic Ulcer, Binx-es-Aqik Peptic Ulcer A peptic ulcer is a [...] need help quitting, ask your doctor. Take yjxr-rkj-xshghvv and prescription medicines only as told by [...] 09/15/2010 Document Revised: 12/27/2018 Document Reviewed: 12/27/2018 [employer] Patient Education 2020 [employer]. Follow Up Care 02/10/2022 14:51:10 With:MARCELO JUAREZ, BRITTNI Padron, [facility] Address: [address] [place] [address]. [address] [place] [address] When:1 to 2 weeks Comments:Elevated liver enzymes. [facility] [id number] Hospital Discharge instructions Patient Education 02/09/2022 09:04:31 Endoscopy, Care After Procedure [facility] Endoscopy Care After Procedure Please read the instructions outlined below and refer to this sheet in the next few weeks. These discharge instructions provide you with general information on caring [facility] Your doctor may also give you specific [...] Document Re-Released: 12/13/2006 [employer] Patient Information 2009 [employer]. Follow Up Care 12/24/2021 09:43:04 With:Vito ROBERTSON Address: [address] [place] [address]. [address] [place] [address] [facility] (1) When:1 to 2 weeks Comments:Call for any problems. Office will call for follow up appointment [facility]08[facility]20[facility] Hospital Discharge instructions Patient Education 02/02/2022 08:53:42 [...] Follow these instructions at home: Medicines Take gdix-lxy-oethzlr and prescription medicines only as told by [...] chlorine bleach. Be sure to: ?Read the drilling machine operator's instructions or read online resources to find out if the product you are using will work for the surface you are cleaning. ?Clean frequently touched surfaces, such as toilets (remember the flush handle), bathtubs, sinks, door knobs, and work surfaces. If you are in the hospital, make sure that staff members clean the [...] 03/31/2006 Document Revised: 11/15/2019 Document Reviewed: 11/15/2019 [employer] Patient Education 2020 [employer]. Follow Up Care 01/12/2022 08:08:14 With:MARCELO JUAREZ, BRITTNI Padron, [facility] Address: [address] [place] [address]. [address] [place] [address] When:[address] [facility] [id number] Hospital Discharge instructions Patient Education 01/12/2022 14:42:18 [...] do that. Take them as directed. Take ewvw-wja-ulnlyor and prescription medicines only as told by [...] 03/17/2006 Document Revised: 06/03/2018 Document Reviewed: 05/23/2018 [employer] Patient Education 2020 [employer]. 01/12/2022 14:42:18 Hypokalemia Hypokalemia Hypokalemia means that [...] hospital. Follow these instructions at home: Take hhea-xky-rdbiequ and prescription medicines only as told by [...] cantaloupe, kiwi, oranges, tomatoes, asparagus, and potatoes. ?[place] juice. ?Tomato juice. ?Red meats. ?Yogurt. Keep [...] 06/21/2006 Document Revised: 02/01/2019 Document Reviewed: 02/01/2019 [employer] Patient Education 2020 [employer]. 01/12/2022 14:42:18 Diarrhea, Adult Diarrhea, Adult Diarrhea [...] oral rehydration solution (ORS). This is an wboe-qtn-abzhtsk medicine that helps return your body to [...] drinks, sports drinks, and soda. Eat bland, fdyv-ab-nxrysx foods in small amounts as you are able. These foods include bananas, applesauce, rice, lean meats, toast, and crackers. Avoid alcohol. Avoid spicy or fatty foods. Medicines Take jhos-rwm-djpgvsd and prescription medicines only as told by your health care provider. If you were prescribed an antibiotic medicine, take it as told by your health care provider. Do notstop using the antibiotic even if you start to feel better. General instructions Wash your hands often using soap and water. If soap and water are not available, use a hand logging truck driver. Others in the household should wash their [...] soap and water are not available, usehand logging truck driver. Contact a health care provider if your diarrhea gets worse or you have new symptoms. Get help right away if you have signs of dehydration. This information is not intended to replace advice given to you by your health care provider. Make sure you discuss any questions you have with your health care provider. Document Released: 06/11/2003 Document Revised: 11/07/2019 Document Reviewed: 11/25/2018 [employer] Patient Education 2020 [employer]. 01/12/2022 14:42:18 Nausea and Vomiting, Adult Nausea [...] water added (diluted fruit juice). Eat bland, afex-bc-nvmcuh foods in small amounts as you are able. These foods include bananas, applesauce, rice, lean meats, toast, and crackers. Avoid fluids that contain a lot of sugar or caffeine, such as energy drinks, sports drinks, and soda. Avoid alcohol. Avoid spicy or fatty foods. General instructions Take zrhf-wfi-idrerub and prescription medicines only as told by your health care provider. Drink enough fluid to keep your urine pale yellow. Wash your hands often using soap and water. If soap and water are not available, use hand logging truck driver. Make sure that all people in your [...] eating and drinking to prevent dehydration. Take rrhl-zbx-vvjpexl and prescription medicines only as told by [...] 06/21/2006 Document Revised: 10/13/2019 Document Reviewed: 11/29/2018 [employer] Patient Education 2020 [employer]. 01/12/2022 14:42:18 Abdominal Pain, Adult Abdominal Pain, [...] Follow these instructions at home: Medicines Take kzll-mrj-clhpdtk and prescription medicines only as told by [...] Watch your condition for any changes. Take pbzf-zrx-irkglco and prescription medicines only as told by [...] 03/31/2006 Document Revised: 10/30/2019 Document Reviewed: 10/30/2019 [employer] Patient Education 2020 [employer]. Follow Up Care 01/12/2022 09:37:31 With:Vito ROBERTSON Address: [address] [place] [address] Business (1) When:01/15/2022 14:27:38 Comments:Return to the emergency room if your pain gets worse, vomiting recurs or any new symptoms. With:TERESA PATEL Address: [address] [place] [phone] Business (1) When:Within 3 Day(s) [facility]07[facility] Evaluation + Plan noteExtracted from: Title:ED Note Author:Sandro Hunter, Pardeep Quinones te:01/12/22 1. Vomiting and diarrhea (R1 1.10: [...] day(s), # 5 tab(s), Refills(s) 0, Pharmacy: [facility]/pharmacy #[id number], 152, cm, 01/12/22 9:47:00 EDT, Height/Length [...] Date:02/02/2022 08:20:00 AM Scheduled Provider:Amara Palacio CNP Location[place] App[facility]ment Type:[facility] Follow Up Appointment Date:02/12/2022 09:00:00 AM Scheduled Provider: Location:[facility] Appointment Type:Surgery PAT COVID Testing Appointment Date:02/19/2022 08:35:00 AM Scheduled Provider: Location:[facility] Appointment Type:Surgery FT Future Scheduled Tests Laboratory* Gastrin Level 12/24/21 [facility] Evaluation + Plan note Future Scheduled Tests Laboratory* Gastrin Level 12/24/21 [facility]-12[facility] Hospital Discharge instructions Patient Education 10/14/2021 17:33:17 [...] soft drinks. Herbal tea. Fats and oils [place] oil. [place] oil. Grapeseed oil. [place] oil. Seasoning and other foods Low-fat salad dressing. Ketchup. Low-fat mayonnaise. All spices except pepper. Low-sodium seasoningmixes. Foods to avoid Meats and other protein foods Fatty meats. Fried meats. Any meat that causes symptoms. Dairy Whole milk. Ice cream. Cream. Chocolate milk. Beverages Alcohol. Coffee. Cola and energy drinks. Black or green tea. [place]. Fats and oils Butter. Lard. Ghee. Seasoning [...] 09/12/2012 Document Revised: 06/03/2018 Document Reviewed: 08/02/2017 [employer] Patient Education 2020 [employer]. 10/14/2021 17:33:16 Peptic Ulcer Peptic Ulcer A [...] quitting, ask your health care provider. Take ggzr-mfw-btgvykq and prescription medicines only as told by your health care provider. ?Do not use bxpt-yef-aroxusv medicines in place of prescription medicines unless your health care provider approves. ?Do not take aspirin, ibuprofen, or other NSAIDs unless your health care provider told you to do so. Take upfa-jzc-tjgkbki and prescription medicines only as told by [...] quitting, ask your health care provider. Take vvyi-ngz-imzllte and prescription medicines only as told by your health care provider. Do not use yyrh-oyi-odrennq medicines in place of prescription medicines unless [...] 06/18/2001 Document Revised: 12/27/2018 Document Reviewed: 12/27/2018 [employer] Patient Education 2020 [employer]. 10/14/2021 17:33:09 Gastrointestinal Bleeding Gastrointestinal Bleeding Gastrointestinal [...] observation. Follow these instructions at home: Take sgtn-grm-jkldqyp and prescription medicines only as told by [...] on the cause of the bleeding. Take gptc-hnd-pudpoyb and prescription medicines only as told by [...] 06/18/2001 Document Revised: 02/01/2019 Document Reviewed: 02/01/2019 [employer] Patient Education 2020 [employer]. 10/14/2021 11:53:50 Hematemesis Hematemesis Hematemesis is when [...] tarry. Follow these instructions at home: Take oxal-eok-aodeaqn and prescription medicines only as told by [...] your local emergency services (911 in the [place]). Do not drive yourself to the hospital. Summary Hematemesis is when you vomit blood. It is a sign of bleeding in the upper GI tract (gastrointestinal tract). Hematemesis is usually caused by bleeding in the esophagus or stomach. Do not take NSAIDs (including aspirin and ibuprofen), drink alcohol, or use tobacco products. Take vent-jhj-blawvup and prescription medicines only as told by your health care provider. This information is not intended to replace advice given to you by your health care provider. Make sure you discuss any questions you have with your health care provider. Document Released: 07/29/2005 Document Revised: 07/01/2018 Document Reviewed: 07/01/2018 [employer] Patient Education 2020 [employer]. Follow Up Care 10/13/2021 23:28:04 With:MARCELO JUAREZ, Padron, [facility], [facility] Address: [address] [place] [address]. [address] [place] [address] When:2 to 4 weeks With:TERESA PATEL CNP Address: [address] [place] [phone] When:2 to 4 days [facility]04-12-20[facility] Evaluation + Plan noteExtracted from: Title:Discharge Note Author:Sonido Hayes MD S Date:10/14/21 1. Coffee ground emesis (K92.0: Hematemesis) [...] Nausea/Vomiting, # 12 tab(s), Refills(s) 0, Pharmacy: [facility]/pharmacy #[id number], 152, cm, 10/13/21 23:36:00 EDT, Height/Length Dosing, 71.7, kg, 10/13/21 23:36:00 EDT, Weight Dosing sucralfate, 1 gm = 1 tab(s), Tab, Oral, QID, Routine, Start date 10/14/21 13:00:00 EDT sucralfate, 1 gm = 1 tab(s), Oral, QID, # 240 tab(s), Refills(s) 0, Pharmacy: [facility]/pharmacy #[id number], 152, cm, 10/13/21 23:36:00 EDT, Height/Length [...] Once With When Contact Information MARCELO JUAREZ, Vito, BRITTNI, MED Within 2 to 4 weeks [address] [place] [address] Additional Instructions: TERESA PATEL CNP S Within 2 to [address] [place] [phone] Additional Instructions: Peptic Ulcer Eating Plan Peptic [...] PTT Stool for Occult Blood POC Troponin [facility]04-10-20[facility] Evaluation + Plan noteExtracted from: Title:Discharge Note Author:Mile JUAREZ, Ahmahenny Pineda ate:10/12/21 Gastritis Antral Ulcer -S/P EGD [...] patch(es), TransDermal, Daily, 30 EA, Refill(s) 0, [facility]/pharmacy #[id number], 152.4, cm, 10/09/21 9:00:00 EDT, Height/Length Dosing, 78, kg, 10/09/21 9:00:00 EDT, Weight Dosing nicotine, 21 mg, 1 patch(es), Patch-ER, TransDermal, Once, Stop date 10/11/21 16:00:00 EDT, Routine, Start date 10/11/21 16:00:00 EDT, to replace patch that fell off during shower until tomorrow's dose ondansetron, 4 mg = 1 tab(s), Oral, q8hr, PRN Nausea/Vomiting, # 12 tab(s), Refills(s) 0, Pharmacy: [facility]/pharmacy #[id number], 152.4, cm, 10/09/21 9:00:00 EDT, Height/Length Dosing, 78, kg, 10/09/21 9:00:00 EDT, Weight Dosing pantoprazole, 40 mg = 1 tab(s), Oral, BID, # 60 tab(s), Refills(s) 0, Pharmacy: [facility]/pharmacy #[id number], 152.4, cm, 10/09/21 9:00:00 EDT, Height/Length Dosing, 78, kg, 10/09/21 9:00:00 EDT, Weight Dosing sucralfate, 2 gm = 2 tab(s), Oral, QID, # 240 tab(s), Refills(s) 0, Pharmacy: [facility]/pharmacy #[id number], 152.4, cm, 10/09/21 9:00:00 EDT, Height/Length [...] 10:07:00 EDT, Route to Pharmacy Electronically, Pharmacy: [facility]/pharmacy #[id number], 152.4, cm, 10/09/21 9:00:00 EDT, Height/Length [...] Oral, Daily With When Contact Information Vito ROBERTSON [address] [place] [address] Business (1) Additional Instructions: Peptic Ulcer TERESA PATEL In 0 [address] [place] [phone] Business (1) Additional Instructions: Peptic Ulcer Endoscopy, Care After Procedure (SHSSTEV) Extracted from: Title:APSO Note Author:Mile JUAREZ, [facility] Date: Gastritis Antral Ulcer -S/P EGD on [...] Vital Signs Weight Addendum by Mile JUAREZ, [facility] ad on October 10, 2021 11:27:57 EDT +ve [...] findings Extracted from: Title:Admission H & P Author:Mile JU[facility]Z, [facility] Date:10/09/21 Gastritis -Spoke with high school librarian, very much appreciate assistance, likely EGD -Patient [...] Vital Signs Weight Addendum by Mile JUAREZ, [facility] ad on October 09, 2021 12:54:04 [...] Function Panel Lipase Level PT & PTT [facility]04-10[facility]20[facility] Hospital Discharge instructions Patient Education 10/12/2021 10:12:41 [...] quitting, ask your health care provider. Take oqzv-szj-bcieaub and prescription medicines only as told by your health care provider. ?Do not use fvwg-ibh-ebbariy medicines in place of prescription medicines unless your health care provider approves. ?Do not take aspirin, ibuprofen, or other NSAIDs unless your health care provider told you to do so. Take zlsy-evt-lbvdrio and prescription medicines only as told by [...] quitting, ask your health care provider. Take slqy-ory-ygociwi and prescription medicines only as told by your health care provider. Do not use blnb-qlc-esbgyor medicines in place of prescription medicines unless [...] 06/18/2001 Document Revised: 12/27/2018 Document Reviewed: 12/27/2018 [employer] Patient Education 2020 [employer]. 10/12/2021 10:12:41 Endoscopy, Care After Procedure (SHSSTEV) Endoscopy Care After Procedure Please read the instructions outlined below and refer to this sheet in the next few weeks. These discharge instructions provide you with general information on caring for yourself after you leave [facility]. Your doctor may also give you specific [...] Document Re-Released: 12/13/2006 ExitCare Patient Information 2009 [employer]. Follow Up Care 10/09/2021 08:53:26 With:Vito ROBERTSON Address: [address]. [address] [place] [address] Business (1) When: Unknown Comments:Peptic Ulcer With:TERESA PATEL Address: [address] [place] [phone] Business (1) When: Unknown [facility] History of Past illness Narrative* Problem Noted Date Diagnosed Date Resolved Date Migraine 01/25/2003 04/09/2023 documented as of this encounter (statuses as of 04/10/2023) [facility]2003 History of Past illness Narrative* Problem Noted Date Diagnosed Date Resolved Date Migraine 01/25/2003 04/09/2023 documented as of this encounter (statuses as of 04/10/2023) [facility] History of Past illness Narrative* Problem Noted Date Diagnosed Date Resolved Date Migraine 01/25/2003 04/09/2023 documented as of this encounter (statuses as of 04/13/2023) [address] History of Past illness Narrative* Problem Noted Date Diagnosed Date Resolved Date Migraine 01/25/2003 04/09/2023 documented as of this encounter (statuses as of 04/15/2023) [address] History of Past illness Narrative* Problem Noted Date Diagnosed Date Resolved Date Migraine 01/25/2003 04/09/2023 documented as of this encounter (statuses as of 04/16/2023) [address] History of Past illness Narrative* Problem Noted Date Diagnosed Date Resolved Date Migraine 01/25/2003 04/09/2023 documented as of this encounter (statuses as of 05/12/2023) [address] History of Past illness Narrative* Problem Noted Date Diagnosed Date Resolved Date Migraine 01/25/2003 04/09/2023 documented as of this encounter (statuses as of 06/02/2023) [address] History of Past illness Narrative* Problem Noted Date Diagnosed Date Resolved Date Migraine 01/25/2003 04/09/2023 documented as of this encounter (statuses as of 06/03/2023) [address] History of Past illness Narrative* Problem Noted Date Diagnosed Date Resolved Date Migraine 01/25/2003 04/09/2023 documented as of this encounter (statuses as of 06/04/2023) [address] History of Past illness Narrative* Problem Noted Date Diagnosed Date Resolved Date Migraine 01/25/2003 04/09/2023 documented as of this encounter (statuses as of 06/04/2023) [address] History of Past illness Narrative* Problem Noted Date Diagnosed Date Resolved Date Migraine 01/25/2003 04/09/2023 documented as of this encounter (statuses as of 06/14/2023) [address] History of Past illness Narrative* Problem Noted Date Diagnosed Date Resolved Date Migraine 01/25/2003 04/09/2023 documented as of this encounter (statuses as of 06/18/2023) [address] History of Past illness Narrative* Problem Noted Date Diagnosed Date Resolved Date Migraine 01/25/2003 04/09/2023 documented as of this encounter (statuses as of 06/19/2023) [address] History of Past illness Narrative* Problem Noted Date Diagnosed Date Resolved Date Migraine 01/25/2003 04/09/2023 documented as of this encounter (statuses as of 06/20/2023) [address] History of Past illness Narrative* Problem Noted Date Diagnosed Date Resolved Date Migraine 01/25/2003 04/09/2023 documented as of this encounter (statuses as of 07/04/2023) [address] History of Past illness Narrative* Problem Noted Date Diagnosed Date Resolved Date Migraine 01/25/2003 04/09/2023 documented as of this encounter (statuses as of 08/06/2023) [address] History of Past illness Narrative* Problem Noted Date Diagnosed Date Resolved Date Migraine 01/25/2003 04/09/2023 documented as of this encounter (statuses as of 08/06/2023) [address] History of Past illness Narrative* Problem Noted Date Diagnosed Date Resolved Date Migraine 01/25/2003 04/09/2023 documented as of this encounter (statuses as of 08/11/2023) [address] History of Past illness Narrative* Problem Noted Date Diagnosed Date Resolved Date Migraine 01/25/2003 04/09/2023 documented as of this encounter (statuses as of 08/13/2023) [address] History of Past illness Narrative* Problem Noted Date Diagnosed Date Resolved Date Migraine 01/25/2003 04/09/2023 documented as of this encounter (statuses as of 08/19/2023) [address] History of Past illness Narrative* Problem Noted Date Diagnosed Date Resolved Date Migraine 01/25/2003 04/09/2023 documented as of this encounter (statuses as of 08/26/2023) [address] History of Past illness Narrative* Problem Noted Date Diagnosed Date Resolved Date Migraine 01/25/2003 04/09/2023 documented as of this encounter (statuses as of 08/26/2023) [address] History of Past illness Narrative* Problem Noted Date Diagnosed Date Resolved Date Migraine 01/25/2003 04/09/2023 documented as of this encounter (statuses as of 08/27/2023) [address] History of Past illness Narrative* Problem Noted Date Diagnosed Date Resolved Date Migraine 01/25/2003 04/09/2023 documented as of this encounter (statuses as of 09/02/2023) [address] History of Past illness Narrative* Problem Noted Date Diagnosed Date Resolved Date Migraine 01/25/2003 04/09/2023 documented as of this encounter (statuses as of 09/06/2023) [address] History of Past illness Narrative* Problem Noted Date Diagnosed Date Resolved Date Migraine 01/25/2003 04/09/2023 documented as of this encounter (statuses as of 09/09/2023) [address] History of Past illness Narrative* Problem Noted Date Diagnosed Date Resolved Date Migraine 01/25/2003 04/09/2023 documented as of this encounter (statuses as of 09/09/2023) [address] History of Past illness Narrative* Problem Noted Date Diagnosed Date Resolved Date Migraine 01/25/2003 04/09/2023 documented as of this encounter (statuses as of 09/10/2023) [address] History of Past illness Narrative* Problem Noted Date Diagnosed Date Resolved Date Migraine 01/25/2003 04/09/2023 documented as of this encounter (statuses as of 09/10/2023) [address] History of Past illness Narrative* Problem Noted Date Diagnosed Date Resolved Date Migraine 01/25/2003 04/09/2023 documented as of this encounter (statuses as of 09/15/2023) [address] History of Past illness Narrative* Problem Noted Date Diagnosed Date Resolved Date Migraine 01/25/2003 04/09/2023 documented as of this encounter (statuses as of 09/27/2023) [address] History of Past illness Narrative* Problem Noted Date Diagnosed Date Resolved Date Migraine 01/25/2003 04/09/2023 documented as of this encounter (statuses as of 10/22/2023) [facility] Appointment Date:12/24/2021 08:30:00 AM Scheduled Provider:Vito ROBERTSON MD Location:[facility] Appointment Type:BADH Follow Up [facility] Evaluation + Plan note Future Appointments Appointment Date:02/12/2022 09:00:00 AM Scheduled Provider: Location:[facility] Appointment Type:Surgery PAT COVID Testing Appointment Date:02/19/2022 08:35:00 AM Scheduled Provider: Location:[facility] Appointment Type:Surgery FT Future Scheduled Tests Laboratory* Gastrin Level 12/24/[address] [facility] Evaluation + Plan note Future Appointments Appointment Date:02/09/2022 08:40:00 AM Scheduled Provider: Location:[facility] Appointment Type:Surgery FT Appointment Date:03/11/2022 08:00:00 AM Scheduled Provider:Vito ROBERTSON MD Location:[facility] Appointment Type:BAD Follow Up Future Scheduled Tests Laboratory* Gastrin Level 12/24/[address] [facility] Evaluation + Plan note Future Appointments Appointment Date:03/11/2022 08:00:00 AM Scheduled Provider:Vito ROBERTSON MD Location:[facility] Appointment Type:BAD Follow Up Future Scheduled Tests Laboratory* [place] Level [facility]ments Appointment Date:02/24/2022 03:00:00 PM Scheduled Provider:Vito ROBERTSON MD Location[facility] Appointment Type:BAD Follow Up Future Scheduled Tests Laboratory* Gastrin Level 12/24/[address] [facility] Evaluation + Plan note Future Appointments Appointment Date:08/03/2022 03:00:00 PM Scheduled Provider: Location[facility] Appointment Type:US Abdominal/Pelvis () Future Scheduled Tests Laboratory* Mnihl-1-Yjdyvixjlwj 07/30/22 * Ceruloplasmin 07/30/22 * Antimitochondrial Antibody, [...] * Transferrin 07/30/22 Radiology* US Liver 08/03/[address] [facility] Evaluation + Plan note Future Appointments Appointment Date:10/27/2022 10:30:00 AM Scheduled Provider: Location[facility] Appointment Type:US Abdominal/Pelvis () Appointment Date:11/19/2022 09:20:00 AM Scheduled Provider:Amara Palacio CNP Location:[facility] Appointment Type:[facility] Follow Up Future Scheduled Tests Laboratory* Fecal WBC Lactoferrin 10/22/22 * Giardia lamblia, Direct Detection EIA 10/22/22 * O & P Exam, Routine 10/22/22 * Clostridium Difficile PCR 10/22/22 * Enteric Panel by PCR 10/22/22 Radiology* US Gallbladder 10/27/[address] [facility] Evaluation + Plan note Future Appointments Appointment Date:10/27/2022 10:30:00 AM Scheduled Provider: Location[facility] Appointment Type:US Abdominal/Pelvis () Appointment Date:11/19/2022 09:20:00 AM Scheduled Provider:Amara Palacio CNP Location:[facility] Appointment Type:[facility] Follow Up Diagnostic Tests Pending * Khcab-0-Ekqkofzmosa 10/22/22 * Antimitochondrial Antibody, Quantitative 10/22/22 * [...] by PCR 10/22/22 Radiology* US Gallbladder 10/27/22 [facility] App[facility]ments Appointment Date:11/19/2022 09:20:00 AM Scheduled Provider:Aamra Palacio CNP Location[place] Appointment Type:[facility] Follow Up Future Scheduled Tests Laboratory* Fecal WBC Lactoferrin 10/22/22 * Giardia lamblia, Direct Detection EIA 10/22/22 * O & P Exam, Routine 10/22/22 * Clostridium Difficile PCR 10/22/22 * Enteric Panel by PCR 10/22/22 [facility] Future Appointments Appointment Date:11/19/2022 09:20:00 AM Scheduled Provider:Amara Palacio CNP Location:[facility] Appointment Type:[facility] Follow Up Diagnostic Tests Pending * PAP [id number] 11/05/22 Future Scheduled Tests Laboratory* Fecal WBC Lactoferrin 10/22/22 * Giardia lamblia, Direct Detection EIA 10/22/22 * O & P Exam, Routine 10/22/22 * Clostridium Difficile PCR 10/22/22 * Enteric Panel by PCR 10/22/22 [facility]* Diagnosis Diarrhea of presumed infectious origin- Primary [facility] Diagnosis History of TMJ disorder- Primary Personal history of other musculoskeletal disorders [facility]* Diagnosis Chiari malformation type I (HCC)- Primary Compression of brain History of TMJ syndrome Personal history of other musculoskeletal disorders [facility] Diagnosis Chiari I malformation (HCC)- Primary Compression of brain Chiari malformation type I (HCC) Compression of brain [facility]* Diagnosis Abnormal EKG- Primary Nonspecific abnormal [...] bundle branch block [facility] Diagnosis Abnormal EKG- Primary Nonspecific abnormal [...] for seeking consultation [facility]* Diagnosis Encounter for screening involving social determinants of health (SDoH)- Primary [facility]* Diagnosis Cervicalgia- Primary 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 Displacement of cervical intervertebral disc without myelopathy Radiculopathy, cervical region Brachial neuritis or radiculitis nos [facility]* Diagnosis Cervicalgia 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 Displacement of cervical intervertebral disc without myelopathy Radiculopathy, cervical region Brachial neuritis or radiculitis nos [facility]* Diagnosis Spinal stenosis of cervical region- Primary Spinal stenosis in cervical region Cervicalgia Displacement of cervical intervertebral disc without myelopathy Brachial neuritis Brachial neuritis or radiculitis nos [facility]* Diagnosis Spinal stenosis of cervical region- Primary Spinal stenosis in cervical region Cervical spinal stenosis Spinal stenosis in cervical region Pre-op testing Preoperative examination, unspecified [facility] Diagnosis 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)- Primary [facility]* Diagnosis Palpitations- Primary Bipolar 1 disorder (HCC) Bipolar I disorder, most recent episode (or current) unspecified S/P cervical spinal fusion Arthrodesis status [facility]* Diagnosis Chronic TMJ pain- Primary documented in this encounter [facility] note* Diagnosis Postoperative pain Other acute postoperative pain [facility] Diagnosis 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)- Primary documented in this encounter [facility] note* Diagnosis Cervical spinal stenosis Spinal stenosis in cervical region Pre-op testing Preoperative examination, unspecified [facility]* Diagnosis 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)- Primary documented in this encounter [facility] noteNo assessment information [facility] Work Phone: History general Narrative - Reported* Type Description Date Medical History migraines Medical History back pain Medical History Esophageal reflux Surgical History Acl left knee 2002 Surgical History left knee ligament reconstructi on 2003 Hospitalization History 01/30/05 Hospitalization History stomach ulcer 2021 [employer] Other Hospital course Narrative No data available for this section [facility] No data available for this section [facility] Progress note No data available for this section [facility] Reason for referral (narrative)* Diagnostic Procedure Only (Routine) - Closed Specialty Diagnoses / Procedures Referred By Renee ambrosio Referred To Contact XR IMAGING Diagnoses Cervicalgia 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 Radiculopathy, cervical region Procedures XR CERV OTHER 4V AP/LAT/FLX/EXT RADEX SPINE CERVICAL 4 OR 5 VIEWS Huy Ascencio, HARISH [address] [place] [address] [place] [id number] Referral ID Status Reason Start Date Expiration Date V isits Requested Visits Authorized [id number] Closed Auto-Generate d Referral 06/18/2023 07/17/2024 1 1 [facility] Diagnostic Procedure Only (Routine) - New Request Specialty Diagnoses / Procedures Referred By Contac t Referred To Contact XR IMAGING Diagnoses 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) Procedures XR CERV GENERAL 2V AP/LAT RADEX SPINE CERVICAL 2 OR 3 VIEWS Michell Mcconnell, HIMANSHU.GANG DRILL OPERATOR [address], Mail Code [address] [place] [phone] Xr Imaging [facility]95 Referral ID Status Reason Start Date Expiration Date Visits Requested Visits Authorized [id number] New Request Auto-Generat ed Referral 01/17/2024 02/15/2025 1 1 [facility] for visit Narrative* Diagnostic Procedure Only (Routine) - Closed Specialty Diagnoses / Procedures Referred By Contac t Referred To Contact XR IMAGING Diagnoses Cervicalgia 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 Radiculopathy, cervical region Procedures XR CERV OTHER 4V AP/LAT/FLX/EXT RADEX SPINE CERVICAL 4 OR 5 VIEWS Huy Ascencio, MANAGER TRACK.GANG DRILL OPERATOR [address] [place] [address] Xr Imaging [place] [address] Referral ID Status Reason Start Date Expiration Date V isits Requested Visits Authorized [id number] Closed Auto-Generate d Referral 06/18/2023 07/17/2024 1 1 [facility] for visit Narrative* Diagnostic Procedure Only (Routine) - Closed Specialty Diagnoses / Procedures Referred By Contac t Referred To Contact XR IMAGING Diagnoses Cervical spinal stenosis Pre-op testing Procedures XR CERV GENERAL 2V AP/LAT RADEX SPINE CERVICAL 2 OR 3 VIEWS Joo Cruz MD [address] [place] [address] Xr Imaging [facility]95 Referral ID Status Reason Start Date Expiration Date V isits Requested Visits Authorized [id number] Closed Auto-Generate d Referral 07/07/2023 08/04/2024 1 1 [facility] Summary Purpose Family History No Family History Records Found Relationship Condition Age at Onset Recorded Date/T chen aunt Family history of other condition Unknown Unknown grandparent Unknown Family history of other condition Unknown grandparent Family history of other condition Unknown Advance Directives No Advanced Directives Records FoundLatest [...] HIGH COMPLEX 45 MINS Joo Cruz MD [address] [place], [place] [id number] [facility] [place] [address] [place] [address] Referral ID Status Reason Start Date Expiration Date Visits Requested Visits Authorized [id number] Pending Review Auto-Generat ed Referral 11/01/2023 10/31/2024 1 1 Specialty Diagnoses / Procedures Referred By Contac t Referred To Contact Dentistry Diagnoses Chronic TMJ pain Procedures CONSULT TO DENTISTRY OFFICE/OUTPATIENT [facility] 60 MINUTES Reuben Agrawal PA-C [address] [place] [address] Referral ID Status Reason Start Date Expiration Date Visits Requested Visits Authorized [id number] Pending Review PCP Requested Referral 09/14/2023 09/13/2024 1 1 Specialty Diagnoses / Procedures Referred By Contac t Referred To Contact CT IMAGING Diagnoses Spinal stenosis of cervical region Procedures CT CERVICAL SPINE WO IVCON CT CERVICAL SPINE W/O CONTRAST MATERIAL Joo Cruz MD [address] [place] [address] [address] [place] [id number] Referral ID Status Reason Start Date Expiration Date Visits Requested Visits Authorized [id number] Additional Clinical Info Needed Auto-Generat ed Referral 07/31/2024 1 1 Specialty Diagnoses / Procedures Referred By Contac t Referred To Contact Diagnoses Cervicalgia 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 Radiculopathy, cervical region Procedures CONSULT TO SPINE SURGERY OFFICE/OUTPATIENT [facility] MDM 60-74 MINUTES Huy Ascencio, MANAGER TRACK.GANG DRILL OPERATOR [address] [place] [address] Referral ID Status Reason Start Date Expiration Date Visits Requested Visits Authorized [id number] Authorized PCP Requested Referral 06/17/2024 1 1 Specialty Diagnoses / Procedures Referred By Contac t Referred To Contact XR IMAGING Diagnoses Cervicalgia 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 Radiculopathy, cervical region Procedures XR CERV OTHER 4V AP/LAT/FLX/EXT RADEX SPINE CERVICAL 4 OR 5 VIEWS Huy Ascencio APRN.GANG DRILL OPERATOR [address] [place] [address] [place] [id number] Referral ID Status Reason Start Date Expiration Date V isits Requested Visits Authorized [id number] Closed Auto-Generate d Referral 06/18/2023 07/17/2024 1 1 Specialty Diagnoses / Procedures Referred By Contac t Referred To Contact [facility] Diagnoses Neck pain Jaw pain Upper back pain Procedures CONSULT TO AQUARIUM SPECIALIST OCCUPATIONAL THERAPY EVAL HIGH COMPLEX 60 MINS Reuben Agrawal PA-C [address] [place] [address] [facility] [address] [address] Referral ID Status Reason Start Date Expiration Date Visits Requested Visits Authorized [id number] Pending Review Auto-Generat ed Referral 04/09/2023 04/08/2024 1 1 Specialty Diagnoses / Procedures Referred By Contac t Referred To Contact [facility] Diagnoses Neck pain Jaw pain Upper back pain Procedures CONSULT TO PHYSICAL THERAPY PHYSICAL THERAPY EVALUATION HIGH COMPLEX 45 MINS Reuben Agrawal PA-C [address] [place] [address] [facility] [address] [address] Referral ID Status Reason Start Date Expiration Date Visits Requested Visits Authorized [id number] Pending Review Auto-Generat ed Referral 04/09/2023 04/08/2024 1 1 Specialty Diagnoses / Procedures Referred By Contac t Referred To Contact Cardiology Diagnoses Abnormal EKG Procedures CONSULT TO CARDIOLOGY OFFICE/OUTPATIENT [facility] 60-74 MINUTES Reuben Agrawal PA-C [address] [place] [address] Referral ID Status Reason Start Date Expiration Date Visits Requested Visits Authorized [id number] Authorized PCP Requested Referral 04/09/2023 04/08/2024 1 1 Specialty Diagnoses / Procedures Referred By Contac t Referred To Contact [facility] Diagnoses Abnormal EKG Procedures ECHO ECHO TTHRC R-T 2D W/WOM-MODE COMPL SPEC&COLR D Reuben Agrawal PA-C [address] [place] [address] [facility] [address] [address] Referral ID Status Reason Start Date Expiration Date Visits Requested Visits Authorized [id number] Pending Review Auto-Generat ed Referral 04/09/2023 04/08/2024 1 1 Specialty Diagnoses / Procedures Referred By Contac t Referred To Contact Cardiology Diagnoses PTSD (post-traumatic stress disorder) DIMITRI (generalized anxiety disorder) MDD (major depressive disorder), recurrent episode, mild (HCC) Elevated blood pressure reading in office with diagnosis of hypertension Cerebellar tonsillar ectopia (HCC) Abnormal EKG Prolonged Q-T interval on ECG RBBB Procedures CONSULT TO CARDIOLOGY OFFICE/OUTPATIENT [facility] 60-74 MINUTES Maurice León MD [address] [facility] [address] [place] [address] Referral ID Status Reason Start Date Expiration Date Visits Requested Visits Authorized [id number] Authorized PCP Requested Referral 04/07/2023 04/06/2024 1 1 Specialty Diagnoses / Procedures Referred By Contac t Referred To Contact FAMILY MEDICINE Diagnoses Encounter to establish care with new doctor PTSD (post-traumatic stress disorder) DIMITRI (generalized anxiety disorder) MDD (major depressive disorder), recurrent episode, mild (HCC) Elevated blood pressure reading in office with diagnosis of hypertension Cerebellar tonsillar ectopia (HCC) Abnormal EKG Procedures ESTABLISH WITH PRIMARY CARE NEW PATIENT OFFICE/OUTPATIENT [facility] MDM 60-74 MINUTES Maurice León MD [address] [place] [address] [facility] Kim [address] [place] [address] Referral ID Status Reason Start Date Expiration Date Visits Requested Visits Authorized [id number] Authorized PCP Requested Referral 04/07/2023 04/06/2024 1 1 Specialty Diagnoses / Procedures Referred By Contac t Referred To Contact MR IMAGING Diagnoses Chiari I malformation (HCC) Procedures MRI CERVICAL SPINE WO IVCON MRI SPINAL CANAL CERVICAL W/O CONTRAST Zoraida Jeong PA-C [address] [place] [address] [place] [id number] Referral ID Status Reason Start Date Expiration Date Visits Requested Visits Authorized [id number] Pending Review Auto-Generat ed Referral 03/18/2023 04/16/2024 1 1 Specialty Diagnoses / Procedures Referred By Contac t Referred To Contact Neurosurgery Diagnoses Chiari malformation type I (HCC) Procedures CONSULT TO NEUROSURGERY OFFICE/OUTPATIENT NEW [facility] MDM 60-74 MINUTES Tristan Guallpa MD [address] [place] [address] Referral ID Status Reason Start Date Expiration Date Visits Requested Visits Authorized [id number] Authorized PCP Requested Referral 03/05/2023 03/04/2024 1 1 Additional Source Comments INFORMATION SOURCE (unrecogn ized section and content) DATE CREATED AUTHOR 08/12/2021 [employer] [facility] DATE CREATED AUTHOR AUTHOR'S ORGANIZ ATION 05/22/2022 [facility] DATE CREATED AUTHOR AUTHOR'S ORGANIZ ATION 02/16/2023 [facility] DATE CREATED AUTHOR AUTHOR'S ORGANIZ ATION 03/05/2023 [facility] DATE CREATED AUTHOR AUTHOR'S ORGANIZ ATION 05/12/2023 [facility] DATE CREATED AUTHOR AUTHOR'S ORGANIZ ATION 07/17/2023 [facility] DATE CREATED AUTHOR AUTHOR'S ORGANIZ ATION 11/16/2023 [facility] DATE CREATED AUTHOR AUTHOR'S ORGANIZ ATION 11/25/[address] [facility] DATE CREATED AUTHOR AUTHOR'S ORGANIZ ATION 01/21/2024 [facility] DATE CREATED AUTHOR AUTHOR'S ORGANIZ ATION 01/26/2024 [facility] DATE CREATED AUTHOR AUTHOR'S ORGANIZ ATION 02/12/2024 [facility] EPIC DATE CREATED AUTHOR AUTHOR'S ORGANIZ ATION 02/18/2024 [facility] ysician Group Care Team (unrecognized sect ion and content) Coagulating Bath Mixer Relationship Specialty Start Date End Date Teresa Patel CNP [address] [place] [address] PCP - General 12/18/18 Amara Palacio CNP [address] [place] [address] Referring Family Practice 02/20/22 Coagulating Bath Mixer Relationship Specialty Start Date End Date Miriam Cavazos [address] [place] [address] PCP - General 05/02/16 Coagulating Bath Mixer Relationship Specialty Start Date End Date Teresa Patel CNP [address] [place] [address] PCP - General 12/18/18 Amara Palacio CNP [address] [facility] [place] [address] Referring Family Medicine 02/20/22 Coagulating Bath Mixer Relationship Specialty Start Date End Date Teresa Patel CNP [address] [place] [address] PCP - General 12/18/18 Amara Palacio CNP [address] [facility] [place] [address] Referring Family Medicine 02/20/22 Coagulating Bath Mixer Relationship Specialty Start Date End Date Teresa Patel CNP [address] [place] [address] PCP - General 12/18/18 Amara Palacio CNP [address] [place] [address] Referring Family Medicine 02/20/22 Coagulating Bath Mixer Relationship Specialty Start Date End Date Teresa Patel CNP [address] [place] [address] PCP - General 12/18/18 Amara Palacio CNP [address] [place] [address] Referring Family Medicine 02/20/22 Coagulating Bath Mixer Relationship Specialty Start Date End Date Teresa Patel CNP [address] [place] [address] PCP - General 12/18/18 Amara Palacio CNP [address] [place] [address] Referring Family Medicine 02/20/22 Coagulating Bath Mixer Relationship Specialty Start Date End Date Teresa Patel CNP [address] [place] [address] PCP - General 12/18/18 Amara Palacio CNP [address] [place] [address] Referring Family Medicine 02/20/22 Coagulating Bath Mixer Relationship Specialty Start Date End Date DwightTeresa travisLEILA [address] [place] [address] PCP - General 12/18/18 Amara Palacio CNP [address] [place] [address] Referring Family Medicine 02/20/22 Coagulating Bath Mixer Relationship Specialty Start Date End Date Dwight Teresa KathrynLEILA [address] [place] [address] PCP - General 12/18/18 Amara Palacio CNP [address] [place] [address] Referring Family Medicine 02/20/22 Coagulating Bath Mixer Relationship Specialty Start Date End Date Reuben Agrawal PA-C [address] [place] [address] PCP - General Internal Medicine 04/09/23 Amara Palacio CNP [address] [place] [address] Referring Family Medicine 02/20/22 Coagulating Bath Mixer Relationship Specialty Start Date End Date Reuben Agrawal PA-C [address] [place] [address] PCP - General Internal Medicine 04/09/23 Amara Palacio CNP [address] [place] [address] Referring Family Medicine 02/20/22 Coagulating Bath Mixer Relationship Specialty Start Date End Date Reuben Agrawal PA-C [address] [place] [id number] PCP - General Internal Medicine 04/09/23 Amaar Palacio, LEILA [address] [place] [address] Referring Family Medicine 02/20/22 Coagulating Bath Mixer Relationship Specialty Start Date End Date Reuben Agrawal PA-C [address] [place] [address] [phone] PCP - General Internal Medicine 04/09/23 Amara Palacio, LEILA [address] [place] [facility] [place] [address] Referring Family Medicine 02/20/22 Nitza Yarbrough LSW Vice Principal Retail Pharmacy Technician 04/15/23 Coagulating Bath Mixer Relationship Specialty Start Date End Date Teresa Patel CNP [address] [place] [id number] PCP - General 12/18/18 04/08/23 Reuben Agrawal PA-C [address] [place] [address] [phone] PCP - General Internal Medicine 04/09/23 Amara Palacio, LEILA [address] [place] [address] Referring Family Medicine 02/20/22 Nitza Yarbrough LSW Vice Principal Retail Pharmacy Technician 04/15/23 04/20/23 Coagulating Bath Mixer Relationship Specialty Start Date End Date Reuben Agrawal PA-C [address] [place] [address] [id number] PCP - General Internal Medicine 04/09/23 Amara Palacio CNP [address] [place] [address] Referring Family Medicine 02/20/22 Coagulating Bath Mixer Relationship Specialty Start Date End Date Reuben Agrawal PA-C [address] [place] [address] [phone] PCP - General Internal Medicine 04/09/23 Amara Palacio CNP [address] [place] [address] Referring Family Medicine 02/20/22 Coagulating Bath Mixer Relationship Specialty Start Date End Date Reuben Agrawal PA-C [address] [place] [address] [phone] PCP - General Internal Medicine 04/09/23 Amara Palacio CNP [address] [place] [address] Referring Family Medicine 02/20/22 Coagulating Bath Mixer Relationship Specialty Start Date End Date Reuben Agrawal PA-C [address] [place] [address] PCP - General Internal Medicine 04/09/23 Amara Palacio CNP [address] [place] [address] Referring Family Medicine 02/20/22 Coagulating Bath Mixer Relationship Specialty Start Date End Date Reuben Agrawal PA-C [address] [place] [address] [id number] PCP - General Internal Medicine 04/09/23 Amara Palacio CNP [address] [place] [address] [place] [address] Referring Family Medicine 02/20/22 Coagulating Bath Mixer Relationship Specialty Start Date End Date Reuben Agrawal PA-C [address] [place] [address] [id number] PCP - General Internal Medicine 04/09/23 Amara Palacio CNP [address] [place] [address] [place] [address] Referring Family Medicine 02/20/22 Coagulating Bath Mixer Relationship Specialty Start Date End Date Reuben Agrawal PA-C [address] [place] [address] [id number] PCP - General Internal Medicine 04/09/23 Amara Palacio CNP [address] [facility] [place] [address] Referring Family Medicine 02/20/22 Coagulating Bath Mixer Relationship Specialty Start Date End Date Teresa Patel CNP [address] [place] [address] [id number] PCP - General 12/18/18 04/08/23 Reuben Agrawal PA-C [address] [place] [address] [phone] PCP - General Internal Medicine 04/09/23 Amara Palacio CNP [address] [place] [address] Referring Family Medicine 02/20/22 Nitza Yarbrough LSW Vice Principal Retail Pharmacy Technician 04/15/23 04/20/23 Coagulating Bath Mixer Relationship Specialty Start Date End Date Reuben Agrawal PA-C [address] [place] [address] [phone] PCP - General Internal Medicine 04/09/23 Amara Palacio CNP [address] [place] [address] Referring Family Medicine 02/20/22 Coagulating Bath Mixer Relationship Specialty Start Date End Date Reuben Agrawal PA-C [address] [place] [address] [id number] PCP - General Internal Medicine 04/09/23 Amara Palacio CNP [address] [place] [address] Referring Family Medicine 02/20/22 Coagulating Bath Mixer Relationship Specialty Start Date End Date Reuben Agrawal PA-C [address] [place] [address] 40650 PCP - General Internal Medicine 04/09/23 Amara Palacio CNP [address] [place] [address] Referring Family Medicine 02/20/22 Coagulating Bath Mixer Relationship Specialty Start Date End Date Reuben Agrawal PA-C [address] [place] [address] [phone] PCP - General Internal Medicine 04/09/23 Amara Palacio CNP [address] [place] [address] Referring Family Medicine 02/20/22 Coagulating Bath Mixer Relationship Specialty Start Date End Date Reuben Agrawal PA-C [address] [place] [address] [phone] PCP - General Internal Medicine 04/09/23 Amara Palacio CNP [address] [facility] [place] [address] Referring Family Medicine 02/20/22 Coagulating Bath Mixer Relationship Specialty Start Date End Date Reuben Agrawal PA-C [address] [place] [address] [phone] PCP - General Internal Medicine 04/09/23 Amara Palacio CNP [address] [facility] [place] [address] Referring Family Medicine 02/20/22 Coagulating Bath Mixer Relationship Specialty Start Date End Date Reuben Agrawal PA-C [address] [place] [address] [phone] PCP - General Internal Medicine 04/09/23 Amara Palacio CNP [address] [place] [address] Referring Family Medicine 02/20/22 Coagulating Bath Mixer Relationship Specialty Start Date End Date Reuben Agrawal PA-C [address] [place] [address] [phone] PCP - General Internal Medicine 04/09/23 Amara Palacio, LEILA [address] [place] [address] Referring Family Medicine 02/20/22 Coagulating Bath Mixer Relationship Specialty Start Date End Date Reuben Agrawal PA-C [address] [place] [address] [phone] PCP - General Internal Medicine 04/09/23 Amara Palacio, LEILA [address] [place] [address] Referring Family Medicine 02/20/22 Coagulating Bath Mixer Relationship Specialty Start Date End Date Reuben Agrawal PA-C [address] [place] [address] [phone] PCP - General Internal Medicine 04/09/23 Amara Palacio, GANG DRILL OPERATOR [address] [place] [address] Referring Family Medicine 02/20/22 Coagulating Bath Mixer Relationship Specialty Start Date End Date Reuben Agrawal PA-C [address] [place] [address] [phone] PCP - General Internal Medicine 04/09/23 Amara Palacio CNP [address] [place] [address] Referring Family Medicine 02/20/22 Coagulating Bath Mixer Relationship Specialty Start Date End Date Reuben Agrawal PA-C [address] [place] [address] 49106 PCP - General Internal Medicine 04/09/23 Amara Palacio CNP [address] [place] [address] Referring Family Medicine 02/20/22 Coagulating Bath Mixer Relationship Specialty Start Date End Date Reuben Agrawal PA-C [address] [place] [address] 49607 PCP - General Internal Medicine 04/09/23 Amara Palacio CNP [address] [place] [address] Referring Family Medicine 02/20/22 Coagulating Bath Mixer Relationship Specialty Start Date End Date Reuben Agrawal PA-C [address] [place] [address] [id number] PCP - General Internal Medicine 04/09/23 Amara Palacio CNP [address] [place] [address] Referring Family Medicine 02/20/22 Coagulating Bath Mixer Relationship Specialty Start Date End Date Reuben Agrawal PA-C [address] [place] [address] [id number] PCP - General Internal Medicine 04/09/23 Amara Palacio CNP [facility] [place] [address] Referring Family Medicine 02/20/22 Team Status: Inactive Member Role Status Dates Solomon Sorensen DO Attending Provider Active Start : February 10, 2024 End: February 10, 2024 Source Comments (unrecognize d section and content) In the event this informatio n is protected by the Federal Confidentiality of Alcohol and Drug Abuse Patient Records regulations: The Federal rules restrict any use of the information to criminally investigate or prosecute any alcohol or drug abuse patient.[facility] the event this information is protected by the Federal Confidentiality of Alcohol and Drug Abuse Patient Records regulations: The Federal rules restrict any use of the information to criminally investigate or prosecute any alcohol or drug abuse patient.[facility] CenterIn the event this information is protected by the Federal Confidentiality of Alcohol and Drug Abuse Patient Records regulations: The Federal rules restrict any use of the information to criminally investigate or prosecute any alcohol or drug abuse patient.[facility] CenterIn the event this information is protected by the Federal Confidentiality of Alcohol and Drug Abuse Patient Records regulations: The Federal rules restrict any use of the information to criminally investigate or prosecute any alcohol or drug abuse patient.[facility] CenterIn the event this information is protected by the Federal Confidentiality of Alcohol and Drug Abuse Patient Records regulations: The Federal rules restrict any use of the information to criminally investigate or prosecute any alcohol or drug abuse patient.[facility] CenterIn the event this information is protected by the Federal Confidentiality of Alcohol and Drug Abuse Patient Records regulations: The Federal rules restrict any use of the information to criminally investigate or prosecute any alcohol or drug abuse patient.[facility] CenterIn the event this information is protected by the Federal Confidentiality of Alcohol and Drug Abuse Patient Records regulations: The Federal rules restrict any use of the information to criminally investigate or prosecute any alcohol or drug abuse patient.[facility] CenterIn the event this information is protected by the Federal Confidentiality of Alcohol and Drug Abuse Patient Records regulations: The Federal rules restrict any use of the information to criminally investigate or prosecute any alcohol or drug abuse patient.[facility] CenterIn the event this information is protected by the Federal Confidentiality of Alcohol and Drug Abuse Patient Records regulations: The Federal rules restrict any use of the information to criminally investigate or prosecute any alcohol or drug abuse patient.[facility] CenterIn the event this information is protected by the Federal Confidentiality of Alcohol and Drug Abuse Patient Records regulations: The Federal rules restrict any use of the information to criminally investigate or prosecute any alcohol or drug abuse patient.[facility] CenterIn the event this information is protected by the Federal Confidentiality of Alcohol and Drug Abuse Patient Records regulations: The Federal rules restrict any use of the information to criminally investigate or prosecute any alcohol or drug abuse patient.[facility] CenterIn the event this information is protected by the Federal Confidentiality of Alcohol and Drug Abuse Patient Records regulations: The Federal rules restrict any use of the information to criminally investigate or prosecute any alcohol or drug abuse patient.[facility] CenterIn the event this information is protected by the Federal Confidentiality of Alcohol and Drug Abuse Patient Records regulations: The Federal rules restrict any use of the information to criminally investigate or prosecute any alcohol or drug abuse patient.[facility] CenterIn the event this information is protected by the Federal Confidentiality of Alcohol and Drug Abuse Patient Records regulations: The Federal rules restrict any use of the information to criminally investigate or prosecute any alcohol or drug abuse patient.[facility] CenterIn the event this information is protected by the Federal Confidentiality of Alcohol and Drug Abuse Patient Records regulations: The Federal rules restrict any use of the information to criminally investigate or prosecute any alcohol or drug abuse patient.[facility] CenterIn the event this information is protected by the Federal Confidentiality of Alcohol and Drug Abuse Patient Records regulations: The Federal rules restrict any use of the information to criminally investigate or prosecute any alcohol or drug abuse patient.[facility] CenterIn the event this information is protected by the Federal Confidentiality of Alcohol and Drug Abuse Patient Records regulations: The Federal rules restrict any use of the information to criminally investigate or prosecute any alcohol or drug abuse patient.[facility] CenterIn the event this information is protected by the Federal Confidentiality of Alcohol and Drug Abuse Patient Records regulations: The Federal rules restrict any use of the information to criminally investigate or prosecute any alcohol or drug abuse patient.[facility] CenterIn the event this information is protected by the Federal Confidentiality of Alcohol and Drug Abuse Patient Records regulations: The Federal rules restrict any use of the information to criminally investigate or prosecute any alcohol or drug abuse patient.[facility] CenterIn the event this information is protected by the Federal Confidentiality of Alcohol and Drug Abuse Patient Records regulations: The Federal rules restrict any use of the information to criminally investigate or prosecute any alcohol or drug abuse patient.[facility] CenterIn the event this information is protected by the Federal Confidentiality of Alcohol and Drug Abuse Patient Records regulations: The Federal rules restrict any use of the information to criminally investigate or prosecute any alcohol or drug abuse patient.[facility] CenterIn the event this information is protected by the Federal Confidentiality of Alcohol and Drug Abuse Patient Records regulations: The Federal rules restrict any use of the information to criminally investigate or prosecute any alcohol or drug abuse patient.[facility] CenterIn the event this information is protected by the Federal Confidentiality of Alcohol and Drug Abuse Patient Records regulations: The Federal rules restrict any use of the information to criminally investigate or prosecute any alcohol or drug abuse patient.[facility] CenterIn the event this information is protected by the Federal Confidentiality of Alcohol and Drug Abuse Patient Records regulations: The Federal rules restrict any use of the information to criminally investigate or prosecute any alcohol or drug abuse patient.[facility] CenterIn the event this information is protected by the Federal Confidentiality of Alcohol and Drug Abuse Patient Records regulations: The Federal rules restrict any use of the information to criminally investigate or prosecute any alcohol or drug abuse patient.[facility] CenterIn the event this information is protected by the Federal Confidentiality of Alcohol and Drug Abuse Patient Records regulations: The Federal rules restrict any use of the information to criminally investigate or prosecute any alcohol or drug abuse patient.[facility] CenterIn the event this information is protected by the Federal Confidentiality of Alcohol and Drug Abuse Patient Records regulations: The Federal rules restrict any use of the information to criminally investigate or prosecute any alcohol or drug abuse patient.[facility] CenterIn the event this information is protected by the Federal Confidentiality of Alcohol and Drug Abuse Patient Records regulations: The Federal rules restrict any use of the information to criminally investigate or prosecute any alcohol or drug abuse patient.[facility] CenterIn the event this information is protected by the Federal Confidentiality of Alcohol and Drug Abuse Patient Records regulations: The Federal rules restrict any use of the information to criminally investigate or prosecute any alcohol or drug abuse patient.[facility] CenterIn the event this information is protected by the Federal Confidentiality of Alcohol and Drug Abuse Patient Records regulations: The Federal rules restrict any use of the information to criminally investigate or prosecute any alcohol or drug abuse patient.[facility] CenterIn the event this information is protected by the Federal Confidentiality of Alcohol and Drug Abuse Patient Records regulations: The Federal rules restrict any use of the information to criminally investigate or prosecute any alcohol or drug abuse patient.[facility] CenterIn the event this information is protected by the Federal Confidentiality of Alcohol and Drug Abuse Patient Records regulations: The Federal rules restrict any use of the information to criminally investigate or prosecute any alcohol or drug abuse patient.[facility] CenterIn the event this information is protected by the Federal Confidentiality of Alcohol and Drug Abuse Patient Records regulations: The Federal rules restrict any use of the information to criminally investigate or prosecute any alcohol or drug abuse patient.[facility] CenterIn the event this information is protected by the Federal Confidentiality of Alcohol and Drug Abuse Patient Records regulations: The Federal rules restrict any use of the information to criminally investigate or prosecute any alcohol or drug abuse patient.[facility] CenterIn the event this information is protected by the Federal Confidentiality of Alcohol and Drug Abuse Patient Records regulations: The Federal rules restrict any use of the information to criminally investigate or prosecute any alcohol or drug abuse patient.[facility] CenterIn the event this information is protected by the Federal Confidentiality of Alcohol and Drug Abuse Patient Records regulations: The Federal rules restrict any use of the information to criminally investigate or prosecute any alcohol or drug abuse patient.[facility] CenterIn the event this information is protected by the Federal Confidentiality of Alcohol and Drug Abuse Patient Records regulations: The Federal rules restrict any use of the information to criminally investigate or prosecute any alcohol or drug abuse patient.[facility] CenterIn the event this information is protected by the Federal Confidentiality of Alcohol and Drug Abuse Patient Records regulations: The Federal rules restrict any use of the information to criminally investigate or prosecute any alcohol or drug abuse patient.[facility] CenterIn the event this information is protected by the Federal Confidentiality of Alcohol and Drug Abuse Patient Records regulations: The Federal rules restrict any use of the information to criminally investigate or prosecute any alcohol or drug abuse patient.[facility] CenterIn the event this information is protected by the Federal Confidentiality of Alcohol and Drug Abuse Patient Records regulations: The Federal rules restrict any use of the information to criminally investigate or prosecute any alcohol or drug abuse patient.[facility] CenterIn the event this information is protected by the Federal Confidentiality of Alcohol and Drug Abuse Patient Records regulations: The Federal rules restrict any use of the information to criminally investigate or prosecute any alcohol or drug abuse patient.[facility] CenterIn the event this information is protected by the Federal Confidentiality of Alcohol and Drug Abuse Patient Records regulations: The Federal rules restrict any use of the information to criminally investigate or prosecute any alcohol or drug abuse patient.[facility] CenterIn the event this information is protected by the Federal Confidentiality of Alcohol and Drug Abuse Patient Records regulations: The Federal rules restrict any use of the information to criminally investigate or prosecute any alcohol or drug abuse patient.[facility] CenterIn the event this information is protected by the Federal Confidentiality of Alcohol and Drug Abuse Patient Records regulations: The Federal rules restrict any use of the information to criminally investigate or prosecute any alcohol or drug abuse patient.[facility] CenterIn the event this information is protected by the Federal Confidentiality of Alcohol and Drug Abuse Patient Records regulations: The Federal rules restrict any use of the information to criminally investigate or prosecute any alcohol or drug abuse patient.[facility] CenterIn the event this information is protected by the Federal Confidentiality of Alcohol and Drug Abuse Patient Records regulations: The Federal rules restrict any use of the information to criminally investigate or prosecute any alcohol or drug abuse patient.[facility] CenterIn the event this information is protected by the Federal Confidentiality of Alcohol and Drug Abuse Patient Records regulations: The Federal rules restrict any use of the information to criminally investigate or prosecute any alcohol or drug abuse patient.[facility] CenterIn the event this information is protected by the Federal Confidentiality of Alcohol and Drug Abuse Patient Records regulations: The Federal rules restrict any use of the information to criminally investigate or prosecute any alcohol or drug abuse patient.[facility] CenterIn the event this information is protected by the Federal Confidentiality of Alcohol and Drug Abuse Patient Records regulations: The Federal rules restrict any use of the information to criminally investigate or prosecute any alcohol or drug abuse patient.[facility] CenterIn the event this information is protected by the Federal Confidentiality of Alcohol and Drug Abuse Patient Records regulations: The Federal rules restrict any use of the information to criminally investigate or prosecute any alcohol or drug abuse patient.[facility] CenterIn the event this information is protected by the Federal Confidentiality of Alcohol and Drug Abuse Patient Records regulations: The Federal rules restrict any use of the information to criminally investigate or prosecute any alcohol or drug abuse patient.[facility] CenterIn the event this information is protected by the Federal Confidentiality of Alcohol and Drug Abuse Patient Records regulations: The Federal rules restrict any use of the information to criminally investigate or prosecute any alcohol or drug abuse patient.[facility] CenterIn the event this information is protected by the Federal Confidentiality of Alcohol and Drug Abuse Patient Records regulations: The Federal rules restrict any use of the information to criminally investigate or prosecute any alcohol or drug abuse patient.[facility] CenterIn the event this information is protected by the Federal Confidentiality of Alcohol and Drug Abuse Patient Records regulations: The Federal rules restrict any use of the information to criminally investigate or prosecute any alcohol or drug abuse patient.[facility] CenterIn the event this information is protected by the Federal Confidentiality of Alcohol and Drug Abuse Patient Records regulations: The Federal rules restrict any use of the information to criminally investigate or prosecute any alcohol or drug abuse patient.[facility] CenterIn the event this information is protected by the Federal Confidentiality of Alcohol and Drug Abuse Patient Records regulations: The Federal rules restrict any use of the information to criminally investigate or prosecute any alcohol or drug abuse patient.[facility] Reason for Visit (unrecogniz ed section and content) Reason Comments Eval for Fecal Transplant C Diff since A pril- 3 rounds of antibiotics and nothing is helping Specialty Diagnoses / Procedures Referred By Contact Referred To Contact Gastroenterology / GASTROENTEROLOGY Diagnoses Evaluation of FMT (Fecal Transplant). Procedures NEW DDI PATIENT Amara Palacio, GANG DRILL OPERATOR [address] [place] [address] Brooks Lamb MD [address] [facility] [place] [address] Referral ID Status Reason Start Date Expiration Date V isits Requested Visits Authorized [id number] Closed OON/Self Pay Override 03/19/2022 05/18/2022 1 1 Reason Comments Patient Update Reason Comments Follow Up Reason Comments Follow Up Specialty Diagnoses / Procedures Referred By Contac t Referred To Contact Neurology / NEUROMUSCULAR Diagnoses TMJ follow up, back/neck pain Procedures EST NI PATIENT Dwight Teresa Kathryn, GANG DRILL OPERATOR [address] [place] [address] Tristan Guallpa MD [address] [place] [address] Referral ID Status Reason Start Date Expiration Date V isits Requested Visits Authorized [id number] Outside PCP 03/05/2023 05/04/2023 1 1 Reason Comments New Patient Specialty Diagnoses / Procedures Referred By Contac t Referred To Contact Neurosurgery Diagnoses Chiari malformation type I (HCC) Procedures CONSULT TO NEUROSURGERY OFFICE/OUTPATIENT NEW HIGH MDM 60-74 MINUTES Tristan Guallpa MD [address] [place] [address] Referral ID Status Reason Start Date Expiration Date V isits Requested Visits Authorized [id number] Closed PCP Requested Referral 03/05/2023 03/04/2024 1 1 Reason Comments Patient Update Patient Question Orders Reason Comments Multiple Concerns Cardiology referral extensive health history would like care moved to [facility] Specialty Diagnoses / Procedures Referred By Contac t Referred To Contact Diagnoses Evaluation Procedures VIRTUAL VISIT MNT, GILBERTO CADE EA. 15 MIN INCREMENT [id number] Maurice León MD [address] [place] [address] [place] [id number] Referral ID Status Reason Start Date Expiration Date V isits Requested Visits Authorized [id number] New Request 04/05/2023 07/04/2023 99 99 Reason Comments [facility] Medical Record Req uest Reason Comments [facility] PICU NURSE Medical Records Requ est Reason Comments [facility] Inpatient/Outpatient M edical Record Reque Reason Comments [facility] Medical Records R equest Reason Comments Establish Care Patient has no sarika rns, will like to establish care with a PCP Specialty Diagnoses / Procedures Referred By Contac t Referred To Contact Diagnoses Establish care with PCP Procedures Establish Care with PCP Maurice León MD [address] [facility] [address] [place] [address] [facility] [address] Referral ID Status Reason Start Date Expiration Date V isits Requested Visits Authorized [id number] New Request 04/09/2023 07/08/2023 99 99 Reason [...] [M50.30] Procedures NEW MEDICAL Reuben Agrawal PA-C [address] [place] [address] Huy Ascencio, MANAGER TRACK.GANG DRILL OPERATOR [address] [place] [address] Referral ID Status Reason Start Date Expiration Date V isits Requested Visits Authorized [id number] Pending Review 06/18/2023 08/17/2023 1 1 Reason Comments New Patient Neck pain Reason Comments Follow Up Neck and arm pain Reason Comments Patient Update Patient Question Reason Comments Appointment Reason Comments [facility]- Marine Biologist apy Re-certification Note Reason Comments Established Patient Neck Pain Reason Comments Telemedicine Reason Onset Date Comments Refill Request 09/24/2023 Reason Comments Follow Up 6 wk post op Reason Comments Refill Request Goals (unrecognized section and content) Goals may be documented in a n alternate section FOR RECORDS PERTAINING TO PATIENTS WHO ARE [...] BE BASED ON THE PRIMARY CLINICAL RECORDS. [facility] provides no warranty or guarantee of the accuracy or completeness of information in this document.
[2024-02-25 07:14] LABS: Basophils Percent Auto 0.3 % (0.2-2.0); Eosinophils Absolute Auto 0.1 10^3/uL (0.0-0.7); Eosinophils Percent Auto 1.5 % (0.9-7.0); Hematocrit 36.5 % (36.0-48.0); Hemoglobin 12.3 g/dL (12.0-16.0); Immature Granulocytes Abs Auto 0.03 10^3/uL (0.00-0.03); Immature Granulocytes Pct Auto 0.3 % (0.0-0.5); Lymphocytes Absolute Auto 3.5 10^3/uL (1.2-3.8); Lymphocytes Percent Auto 38.5 % (20.5-60.0); Mean Corpuscular HGB Conc 33.7 g/dL (29.9-35.2); Mean Corpuscular Hemoglobin 30.1 pg (26.7-34.0); Mean Corpuscular Volume 89.5 fL (81.0-99.0); Mean Platelet Volume 8.7 fL (9.5-13.5); Monocytes Absolute Auto 0.5 10^3/uL (0.3-0.8); Monocytes Percent Auto 5.6 % (1.7-12.0); Neutrophils Absolute Auto 4.8 10^3/uL (1.4-6.5); Neutrophils Percent Auto 53.8 % (43.0-75.0); Platelet Count 304 10^3/uL (150-450); Red Blood Count 4.08 10^6/uL (4.20-5.40); Red Cell Distribution Width 15.1 % (11.0-15.0)
[2024-02-25 07:40] LABS: HCG Quantitative <1 mIU/mL
[2024-02-25] MEDS: LACTATED RINGER'S SOLUTION 1,000 ML 50 ML IV (07:40)
[2024-02-25] MEDS: FAMOTIDINE/PF 20 MG/2 ML VIAL IV (07:59)
--- NOTE | 2024-02-25 10:07 | PM.ONB ---
Brief Operative Note Date of procedure: 02/25/24 Pre-op diagnosis general: menorrhagia, desires permenant sterilization Post-op diagnosis: same as pre-op Procedure: NAME OF PROCEDURE: robotic assisted Laparoscopic bilateral salpingectomy, with Sonia endometrial ablation with hysteroscopy PROCEDURE: The patient was taken back to the OR where she was prepped and draped in the normal sterile fashion after being placed in the dorsal lithotomy position, after being placed under general anesthesia without difficulty. a weighted speculum was then placed into the vagina. Pap and endometrial bx were performed without difficultyThe anterior lip was grasped with a single tooth tenaculum. The patient was then sounded to approximatley 9cm. The patient was gently sounded using Hegar dilators and the hysteroscope was passed through the cervix into the uterus where both ostia were seen. No gross evidence of polyps, fibroids or malignancy. The cervical length was noted to be 4cm. The Sonia ablation apparatus was set to approximately 5cm in length. This was placed in through the cervix and into the uterus. After the seal was tested, at that time the total ablation of 120 seconds was performed with the Sonia without difficulty. All instruments were removed from the vagina. A wet sponge stick was placed into the patient's vagina. Attention was then turned to the patient's abdomen, where a scalpel was used to make a small infraumbilical incision. The S retractors were then used to dissect the underlying layers until the fascia could be seen. The fascia was then grasped with Opal clamps and tented up. A knife was then used to make a small incision to the fascia. The muscle was identified, at that time two sutures of #0 Vicryl on a GI needlewas then used and placed through the fascia. The peritoneum was then identified and entered bluntly. The 10-4 Kaden was then placed into the patient's abdomen. This was confirmed with direct visualization of the bowel, using the laparoscope. The patient's abdomen was then insufflated using approximately 4 liters of CO2 gas. Survey of the patient's abdomen demonstrated normal appearing ovaries, uterus and tubes. A second and third lateral robotic ports, which was 8mm in size, was then placed laterally after incision was made in the skin under direct visualization. the robotic arms were engaged. The patient's tube on the patient's right side was identified. The tube was then tented up using a grasper. The ligasure was used to transect and coagulate the mesosalpingx from the fimbriated end to the insertion at the uterus, the tube was amputated and removed in its entirety.? Excellent hemostasis was noted. ?This was performed on the contralateral sideas well. The lateral ports were then moved under direct visualization with excellent hemostasis. The abdomen was deinsufflated. All instruments were removed from the patient's abdomen. The fascia was closed using the #0 Vicryl on GI needle. The skin was closed using 4-0 Vicryl subcuticularly. All instruments were removed from the patient's vagina as well. The patient was taken out of the dorsal lithotomy position and placed in the supine position and taken to recovery in stable condition. Sponge, lap and needle counts were correct x2. ??? Anesthesia: LOVE Surgeon: Solomon Sorensen Terminal Gauger Supervisor: Sybil Lugo Estimated blood loss (mL): 5 Pathology: other (tubes) Condition: stable Disposition: PACU Urinary Catheter Management Urinary Catheter Management Urethral: Cath placed during this visit: no
[2024-02-25] MEDS: HYDROMORPHONE HCL 0.5 MG/0.5 ML SYRINGE IV ×3 (10:36→11:10)
--- NOTE | 2024-02-25 10:51 | PC.NURSE ---
Peripad applied and no vaginal drainage noted
[2024-02-25] MEDS: HYDROCODONE/ACET 5-325 MG TABLET 1 TAB PO (10:53)
--- NOTE | 2024-02-25 10:59 | PC.NURSE ---
Medicated with Dilaudid IV for pain; peripad dry
--- NOTE | 2024-02-25 11:02 | PC.NURSE ---
Medicated as ordered for pain
--- NOTE | 2024-02-25 11:06 | PC.NURSE ---
Medicated with oral pain medication; peripad dry
--- NOTE | 2024-02-25 11:15 | PC.NURSE ---
Medicated with IV Dilaudid for incisional pain
--- NOTE | 2024-02-25 12:25 | PC.NURSE ---
Peripad dry and mid abdominal dresing changed for moderate amount bloody drainage using 4x4's and opsite; no active drainage noted and procedure tolerated well
--- NOTE | 2024-02-25 12:28 | PC.NURSE ---
Up to bathroom and voided clear yellow without difficulty.
== END 2024-02-25 12:29 | disposition home or self-care (01) ==
PROVIDERS: Visit Provider Obstetrics & Gynecology
PROC: (CPT 840; principal; 2024-02-25 08:30)
PROC: (CPT 840; 2024-02-25 08:30)
DX: Z30.2 Encounter for sterilization (principal); N92.0 Excessive and frequent menstruation with regular cycle; N93.9 Abnormal uterine and vaginal bleeding, unspecified; R10.2 Pelvic and perineal pain; F17.290 Nicotine dependence, other tobacco product, uncomplicated; I50.9 Heart failure, unspecified; K21.9 Gastro-esophageal reflux disease without esophagitis
CPT/HCPCS: 58563; 58661; 36415; 84702; 85025; 88302; J1100; J1170; J1885; J2250; J2405; J2704; J3010

== ENCOUNTER 2024-10-12 15:59 | Outpatient (RCR) | payer OTHER, SELFPAY | END 2024-11-21 08:19 | disposition home or self-care (01) | LOC: PT 15:59 | PROVIDERS: Visit Provider Physician Assistant | DX: M54.9 Dorsalgia, unspecified (principal) | CPT/HCPCS: 97110; 97140; 97161 ==

== ENCOUNTER 2024-12-26 13:37 | Observation (INO) | payer OTHER, SELFPAY ==
[2024-12-26] VITALS (17 sets, daily range): BP systolic 124–145; BP diastolic 76–98; PULSE 77–115; TEMP 36.4–37.2; O2SAT 95–100; BMI 37.1; BMI 34.9
--- NOTE | 2024-12-26 13:48 | CT_ITS ---
The [address] [address] Patient Name: LAID YUN MRN: [id number] date: 1985 Sex: F Assigned Patient Location: ED.MAIN Current Patient Location: ED.MAIN Accession/Order Number: [id number] Exam Date: 12/26/2024 14:48 Report Date: 12/26/2024 14:54 At the request of: CASTILLO MAR MD Procedure: CT abdomen pelvis w con CT abdomen pelvis w con 12/26/2024 2:40 PM SIGNS AND SYMPTOMS: Abdominal pain, nausea, vomiting TECHNIQUE: Multidetector ct axial images of the abdomen and pelvis were obtained with IV contrast. Multiplanar reformats were performed and reviewed to further define anatomy and possible pathology. CT was performed with one or more of the following dose reduction techniques: Automated exposure control, adjustment of the mA and/or kV according to patient size, or use of iterative reconstruction technique. COMPARISON: None. FINDINGS: Lower Chest: Within normal limits. ABDOMEN: Liver: Within normal limits. Bile Ducts: Normal caliber. Gallbladder: No calcified gallstones. Normal caliber wall. Pancreas: Within normal limits. Spleen: Within normal limits. Adrenals: Within normal limits. Kidneys: Within normal limits. Pelvis: Reproductive Organs: No pelvic masses. Ureters: Within normal limits. Bladder: Within normal limits. Bowel: Normal caliber. There is a normal appendix in the right lower quadrant. Mesenteric Lymph Nodes: No enlarged mesenteric lymph nodes. Peritoneum: No ascites or free air, no fluid collection. Vessels: within normal limits Retroperitoneum: Within normal limits. Abdominal Wall: Within normal limits. Bones: Within normal limits. CT/CT abdomen pelvis w con IMPRESSION: No acute intra-abdominal pathology. No bowel obstruction or obstructive uropathy. Impression dictated by: Everett Ochoa M.D. 12/26/2024 2:54 PM Dictation Location: [place] [address] Electronically authenticated by: [id number] Y Date: 12/26/2024 14:54
--- NOTE | 2024-12-26 13:52 | ED.ABDPAIN1 ---
HPI - Abdominal Pain General Chief Complaint: Abdominal Pain Stated Complaint: VOMITING STOMACH ALCER Time Seen by Provider: 12/26/24 13:46 Source: patient Mode of arrival: Wheelchair Limitations: no limitations History of Present Illness HPI narrative: 39-year-old female presents to the emergency department for abdominal pain. It is in the epigastric area and it feels like a burning. It started yesterday. No hematemesis. She is worried she might have another ulcer. She states she had a bleeding ulcer previously and they had to do endoscopy and cauterize it. No fever or blood in her stool. Related Data Home Medications ?Medication ?Instructions ?Recorded ?Confirmed albuterol sulfate 90 mcg/actuation 2 inh inhalation Q4H PRN shortness 02/11/24 02/25/24 aerosol inhaler of breath or wheezing celecoxib 200 mg capsule 200 mg PO Q12H 02/11/24 02/25/24 cetirizine 10 mg tablet 10 mg PO DAILY 02/11/24 02/11/24 cyanocobalamin (vitamin B-12) 1,000 mcg PO DAILY 02/11/24 02/25/24 1,000 mcg tablet gabapentin 100 mg capsule 100 mg PO Q12H 02/11/24 02/25/24 lisdexamfetamine 40 mg capsule 40 mg PO DAILY 02/11/24 02/25/24 (Vyvanse) norethindrone 1 mg-ethinyl 1 tab PO DAILY 02/11/24 02/25/24 estradiol 20 mcg (24)-iron 75 mg (4) tablet (Blisovi 24 Fe) olanzapine 15 mg tablet 15 mg PO QPM 02/11/24 02/25/24 pantoprazole 40 mg tablet,delayed 40 mg PO DAILY 02/11/24 02/25/24 release propranolol 80 mg capsule,24 80 mg PO Q24H 02/11/24 02/25/24 hr,extended release ramelteon 8 mg tablet 8 mg PO QPM 02/11/24 02/25/24 sumatriptan succinate 50 mg tablet 50 mg PO Q2H PRN migraine headache 02/11/24 02/25/24 tizanidine 4 mg tablet 4 mg PO Q8H PRN muscle spasticity 02/11/24 02/25/24 Previous Rx's ?Medication ?Instructions ?Recorded hydrocodone 5 mg-acetaminophen 325 1 tab PO Q4H PRN pain 4 days #16 02/25/24 mg tablet tabs ibuprofen 800 mg tablet 800 mg PO Q8H PRN pain 14 days #40 02/25/24 tabs hydrocodone 5 mg-acetaminophen 325 1 tab PO Q6H PRN pain 5 days #20 12/26/24 mg tablet tabs ondansetron 4 mg disintegrating 4 mg PO Q6H PRN nausea and 12/26/24 tablet vomiting #20 tabs Allergies Allergy/AdvReac Type Severity Reaction Status Date / Time cariprazine (From Vraylar) Allergy out of Verified 12/26/24 13:42 body experience metoclopramide (From Reglan) Allergy Unknown Verified 12/26/24 13:42 Penicillins Allergy Rash Verified 12/26/24 13:42 Review of Systems ROS Narrative A ten point review of systems is negative except as noted above. [facility] Medical History (Updated 12/26/24 @ 15:02 by Crispin Benavides MD) Fibromyalgia ?M79.7 - Fibromyalgia (ICD-10) Back pain ?M54.9 - Dorsalgia, unspecified (ICD-10) Neck pain ?M54.2 - Cervicalgia (ICD-10) ADD (attention deficit disorder) ?F98.8 - Other specified behavioral and emotional disorders with onset usually occurring in childhood and adolescence (ICD-10) Insomnia ?G47.00 - Insomnia, unspecified (ICD-10) Bipolar disorder ?F31.9 - Bipolar disorder, unspecified (ICD-10) Depression ?F32.A - Depression, unspecified (ICD-10) PTSD (post-traumatic stress disorder) ?F43.10 - Post-traumatic stress disorder, unspecified (ICD-10) Anxiety ?F41.9 - Anxiety disorder, unspecified (ICD-10) Panic attacks ?F41.0 - Panic disorder [episodic paroxysmal anxiety] (ICD-10) Electronic cigarette use ?Z78.9 - Other specified health status (ICD-10) COVID-19 ?U07.1 - COVID-19 (ICD-10) Seasonal allergies ?J30.2 - Other seasonal allergic rhinitis (ICD-10) Bronchitis ?J40 - Bronchitis, not specified as acute or chronic (ICD-10) Migraine ?G43.909 - Migraine, unspecified, not intractable, without status migrainosus (ICD-10) Request for sterilization ?Z30.2 - Encounter for sterilization (ICD-10) Pelvic pain ?R10.2 - Pelvic and perineal pain (ICD-10) Abnormal uterine bleeding ?N93.9 - Abnormal uterine and vaginal bleeding, unspecified (ICD-10) Menorrhagia ?N92.0 - Excessive and frequent menstruation with regular cycle (ICD-10) Kidney stones ?N20.0 - Calculus of kidney (ICD-10) Peptic ulcer ?K27.9 - Peptic ulcer, site unspecified, unspecified as acute or chronic, without hemorrhage or perforation (ICD-10) GERD (gastroesophageal reflux disease) ?K21.9 - Gastro-esophageal reflux disease without esophagitis (ICD-10) Tachycardia ?R00.0 - Tachycardia, unspecified (ICD-10) Postoperative nausea and vomiting ?R11.2 - Nausea with vomiting, unspecified (ICD-10) ?Z98.890 - Other specified postprocedural states (ICD-10) Surgical History History of colonoscopy ?Z98.890 - Other specified postprocedural states (ICD-10) History of esophagogastroduodenoscopy (EGD) ?Z98.890 - Other specified postprocedural states (ICD-10) S/P ACL repair ?Z98.890 - Other specified postprocedural states (ICD-10) History of arthroscopy of knee ?Z98.890 - Other specified postprocedural states (ICD-10) H/O cervical spinal arthrodesis (08/24/23) ?Z98.1 - Arthrodesis status (ICD-10) Family History Other Family history of bone cancer Family history of colon cancer Family history of diabetes mellitus Family history of hypertension Family history of lung cancer Family history of myocardial infarction Family history of stroke Social History (Updated 02/25/24 @ 07:28 by Jessica Manrique, MOISE) Within the past year, how often did you have a drink containing alcohol: monthly or less Smoking status: Former smoker Second hand tobacco smoke exposure: No Non-prescribed substance use: cannabis (any form) Non-prescribed substance use details: used last yesterday 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 General: The patient appears uncomfortable. She is laying on her right side and retching from time to time. Skin: Warm, dry, no pallor noted. There is no rash noted. Head: Normocephalic, atraumatic Eye: Normal conjunctiva, no drainage Ears, Nose, Mouth, and Throat: oral mucosa is moist. Nares patent. Cardiovascular: Regular Rate and Rhythm Respiratory: Patient is in no distress, no accessory muscle use, lungs are clear to auscultation, no wheezing, rales or rhonchi Back: non-tender GI: Mild tenderness in epigastric area without mass or distention Musculoskeletal: The patient has no evidence of calf tenderness, no pitting edema, symmetrical pulses noted bilaterally Neurological: A&O, normal speech Psychiatric: Cooperative Constitutional Vital Signs, click to edit/add: Last Vital Signs Pulse 115 H 12/26/24 13:42 Resp 12/26/24 13:42 BP 124/88 12/26/24 13:42 Pulse Ox 95 12/26/24 14:20 O2 Del Method Room Air 12/26/24 13:42 Course Vital Signs Vital signs: Vital Signs Pulse Rate 115 H 12/26/24 13:42 Respiratory Rate 12/26/24 13:42 Blood Pressure 124/88 12/26/24 13:42 Pulse Oximetry 100 12/26/24 13:42 Oxygen Delivery Method Room Air 12/26/24 13:42 Pulse Rate 115 H 12/26/24 13:42 Respiratory Rate 12/26/24 13:42 Blood Pressure 124/88 12/26/24 13:42 Pulse Oximetry 95 12/26/24 14:20 Oxygen Delivery Method Room Air 12/26/24 13:42 MDM - Abdominal Pain MDM Narrative Medical decision making narrative: Blood work is essentially normal and CT of the abdomen shows no acute findings. She has had no hematemesis. She was given IV Protonix as well as antiemetics and is discharged home on [place] and Zofran. She is already on Protonix at home. 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 Treatment diagnosis and follow-up were discussed with the patient. Differential Diagnosis Differential diagnosis: Likely abdominal pain, constipation, diverticulitis, gastroenteritis and pancreatitis Lab Data Attestation: I reviewed the patient's lab results. Labs: Lab Results 12/26/24 Range/Units 13:50 WBC 15.7 H (4.0-11.0) 10^3/uL RBC 5.44 H (4.20-5.40) 10^6/uL Hgb 16.9 H (12.0-16.0) g/dL Hct 47.6 (36.0-48.0) % MCV 87.5 (81.0-99.0) fL MCH 31.1 (26.7-34.0) pg MCHC 35.5 H (29.9-35.2) g/dL RDW 13.7 (11.0-15.0) % Plt Count 435 (150-450) 10^3/uL MPV 9.8 (9.5-13.5) fL Neut % (Auto) 77.8 H (43.0-75.0) % Lymph % (Auto) 16.6 L (20.5-60.0) % [place] % (Auto) 4.8 (1.7-12.0) % Eos % (Auto) 0.0 L (0.9-7.0) % Baso % (Auto) 0.3 (0.2-2.0) % Neut # (Auto) 12.2 H (1.4-6.5) 10^3/uL Lymph # (Auto) 2.6 (1.2-3.8) 10^3/uL [place] # (Auto) 0.8 (0.3-0.8) 10^3/uL Eos # (Auto) 0.0 (0.0-0.7) 10^3/uL Baso # (Auto) 0.1 (0.0-0.1) 10^3/uL Abs Immat Gran (auto) 0.08 H (0.00-0.03) 10^3/uL Imm/Tot Granulo (auto) 0.5 (0.0-0.5) % Sodium 142 (136-145) mmol/L Potassium 3.4 L (3.5-5.1) mmol/L Chloride 100 (98-107) mmol/L Carbon Dioxide 26.8 (21.0-32.0) mmol/L Anion Gap 18.6 BUN 12.0 (7.0-18.0) mg/dL Creatinine 1.34 H (0.55-1.02) mg/dL Est GFR ( Amer) 53 L (>=60 mL/min/1.73m^2) Est GFR (Non-Af Amer) 44 L (>=60 mL/min/1.73m^2) BUN/Creatinine Ratio 9.0 Glucose 162 H (74-106) mg/dL Calcium 11.1 H (8.5-10.1) mg/dL Total Bilirubin 1.1 H (0.2-1.0) mg/dL Direct Bilirubin 0.2 (0.0-0.2) mg/dL AST 28 (15-37) U/L ALT 52 (14-59) U/L Alkaline Phosphatase 109 (46-116) U/L Total Protein 8.8 H (6.4-8.2) g/dL Albumin 4.9 (3.4-5.0) g/dL Globulin 3.9 g/dL Albumin/Globulin Ratio 1.3 Amylase 29 (25-115) U/L Lipase 33.0 (16.0-77.0) U/L Serum HCG, Qual Negative (NEGATIVE) Imaging Data CT scan - abdomen: Radiologist's impression: ITS Impressions Abdomen/Pelvis CT 12/26/24 13:48 IMPRESSION: No acute intra-abdominal pathology. No bowel obstruction or obstructive uropathy. Impression dictated by: Everett Ochoa M.D. 12/26/2024 2:54 PM Dictation Location: [place] [address] Electronically authenticated by: [id number] Y Date: 12/26/2024 14:54 ECG Data Attestation: I personally reviewed and interpreted this ECG as follows: (EKG on my interpretation shows sinus rhythm with a rate of 43) Discharge Plan Discharge Chief Complaint: Abdominal Pain Clinical Impression: Abdominal pain Patient Disposition: Home, Self-Care Time of Disposition Decision: 15:02 Condition: Good Mode of Transportation: Private Vehicle Prescriptions / Home Meds: New hydrocodone-acetaminophen 5-325 mg tablet 1 tab PO Q6H PRN (Reason: pain) 5 Days Qty: 20 0RF ondansetron 4 mg tablet,disintegrating 4 mg PO Q6H PRN (Reason: nausea and vomiting) Qty: 20 0RF No Action celecoxib 200 mg capsule 200 mg PO Q12H cetirizine 10 mg tablet 10 mg PO DAILY cyanocobalamin (vitamin B-12) 1,000 mcg tablet 1,000 mcg PO DAILY pantoprazole 40 mg tablet,delayed release (DR/EC) 40 mg PO DAILY propranolol 80 mg capsule,extended release 24 hr 80 mg PO Q24H olanzapine 15 mg tablet 15 mg PO QPM gabapentin 100 mg capsule 100 mg PO Q12H albuterol sulfate 90 mcg/actuation HFA aerosol inhaler 2 inh INHALATION Q4H PRN (Reason: shortness of breath or wheezing) ramelteon 8 mg tablet 8 mg PO QPM norethindrone-e.estradiol-iron [Blisovi 24 Fe] 1 mg-20 mcg (24)/75 mg (4) tablet 1 tab PO DAILY lisdexamfetamine [Vyvanse] 40 mg capsule 40 mg PO DAILY tizanidine 4 mg tablet 4 mg PO Q8H PRN (Reason: muscle spasticity) sumatriptan succinate 50 mg tablet 50 mg PO Q2H PRN (Reason: migraine headache) ibuprofen 800 mg tablet 800 mg PO Q8H PRN (Reason: pain) 14 Days Qty: 40 0RF hydrocodone-acetaminophen 5-325 mg tablet 1 tab PO Q4H PRN (Reason: pain) 4 Days Qty: 16 0RF Print Language: Indonesian Instructions: Abdominal Pain (ED) Referrals: Trent Jeffers MD [Physician, General Surgery] Trent Navarro MD [Physician, General Surgery] Physician,Non-Staff, [Physician] - 1 week
[2024-12-26 14:03] LABS: Basophils Absolute Auto 0.1 10^3/uL (0.0-0.1); Basophils Percent Auto 0.3 % (0.2-2.0); Hematocrit 47.6 % (36.0-48.0); Hemoglobin 16.9 g/dL (12.0-16.0); Immature Granulocytes Abs Auto 0.08 10^3/uL (0.00-0.03); Immature Granulocytes Pct Auto 0.5 % (0.0-0.5); Lymphocytes Absolute Auto 2.6 10^3/uL (1.2-3.8); Lymphocytes Percent Auto 16.6 % (20.5-60.0); Mean Corpuscular HGB Conc 35.5 g/dL (29.9-35.2); Mean Corpuscular Hemoglobin 31.1 pg (26.7-34.0); Mean Corpuscular Volume 87.5 fL (81.0-99.0); Mean Platelet Volume 9.8 fL (9.5-13.5); Monocytes Absolute Auto 0.8 10^3/uL (0.3-0.8); Monocytes Percent Auto 4.8 % (1.7-12.0); Neutrophils Absolute Auto 12.2 10^3/uL (1.4-6.5); Neutrophils Percent Auto 77.8 % (43.0-75.0); Platelet Count 435 10^3/uL (150-450); Red Blood Count 5.44 10^6/uL (4.20-5.40); Red Cell Distribution Width 13.7 % (11.0-15.0); White Blood Count 15.7 10^3/uL (4.0-11.0)
[2024-12-26] MEDS: PROMETHAZINE HCL 12.5 MG in 0.9 % SODIUM CHLORIDE 50 ML 202 MG IV (14:03)
[2024-12-26] MEDS: PANTOPRAZOLE SODIUM 40 MG VIAL IV ×2 (14:03→23:17)
[2024-12-26 14:18] LABS: HCG Qualitative NEGATIVE (NEGATIVE); Internal Control Within Normal Limits
[2024-12-26 14:19] LABS: Alanine Aminotransferase 52 U/L (14-59); Albumin Globulin Ratio 1.3; Albumin Level 4.9 g/dL (3.4-5.0); Alkaline Phosphatase 109 U/L (46-116); Amylase 29 U/L (25-115); Anion Gap 18.6; Aspartate Amino Transferase 28 U/L (15-37); Bilirubin Direct 0.2 mg/dL (0.0-0.2); Bilirubin Total 1.1 mg/dL (0.2-1.0); Calcium 11.1 mg/dL (8.5-10.1); Carbon Dioxide 26.8 mmol/L (21.0-32.0); Chloride 100 mmol/L (98-107); Estimated GFR (African America 53 (>=60 mL/min/1.73m^2); Estimated GFR (Non-African Ame 44 (>=60 mL/min/1.73m^2); Globulin 3.9 g/dL; Glucose 162 mg/dL (74-106); Potassium 3.4 mmol/L (3.5-5.1); Sodium 142 mmol/L (136-145); Total Protein 8.8 g/dL (6.4-8.2)
[2024-12-26] MEDS: ONDANSETRON PF 4 MG/2 ML VIAL IV ×2 (15:06→16:30)
--- NOTE | 2024-12-26 15:58 | ECG_ITS ---
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 Measurements Intervals [place] Rate: 80 P: 33 MO: 172 QRS: 269 QRSD: 136 T: 114 QT: 440 QTc: 476 Interpretive Statements 1100 Sinus rhythm 1108 Marked sinus arrhythmia 2450 Right bundle branch block [address] depression, possible subendocardial injury 4364 Twave abnormality, possible anterolateral ischemia 7100 Abnormal right axis deviation 9150 abnormal ECG Compared to ECG 02/11/2024 08:41:47 No significant changes Electronically Signed On 12-26-2024 21:58:28 EDT by CINDY GREEN M.D.
--- NOTE | 2024-12-26 15:58 | PC.NURSE ---
Pt still vomiting at this time Dr. blankenship went in to speak with patient and patient does not want to go home due to this continuous nausea Calling about admit at this time
--- NOTE | 2024-12-26 16:22 | PM.IMHP1 ---
Internal Medicine - H&P: HPI History of Present Illness Chief complaint: VOMITING STOMACH ALCER Narrative: This is a 39-year-old female with past medical history of migraine on Imitrex as needed as well as history of bleeding stomach ulcer here for intractable nausea and vomiting that started last night. Patient does not recall eating outside or eating something unusual, however since last night she was complaining of abdominal crampiness as well as burning sensation in the epigastric area 8/10 comes and goes no radiation referral. Associated with intractable nausea and vomiting with anorexia. Patient said that she cannot keep anything down. He denies any diarrhea or fever or chills. She denies any exposure to sick contacts. In the ED, patient was tachycardic and she was in distress they tried to turn discharge her after symptomatically however patient continued to be nauseous and vomiting. She denies alcohol intake or drug use or smoking but states that she smokes marijuana. Last time she had marijuana more than 2 days ago. Patient was saturating well on room air but she was sitting up in bed contracted trying to avoid vomiting. She was in distress complaining of severe nausea when I saw her. CBC drawn in the ED showed leukocytosis of 15,000 with hemoglobin of 16.9 and platelet count of 400 35K, to me appears to be hemoconcentrated, her chemistry showed potassium of 3.4 as well as creatinine of 1.34 with lactic acid of 3, her calcium was 11 which I think is also due to dehydration, AST and ALT were normal. She did have total protein of 8.8 which also consistent with dehydration. CT abdomen pelvis was negative for acute intra-abdominal pathology and is negative for bowel obstruction obstructive uropathy. EKG Review of Systems ROS Status of ROS 10 or more systems reviewed and unremarkable except as noted in history and below [facility] Medical History (Updated 12/26/24 @ 17:13 by Kylee Donaldson MD) Stomach ulcer ?K25.9 - Gastric ulcer, unspecified as acute or chronic, without hemorrhage or perforation (ICD-10) Fibromyalgia ?M79.7 - Fibromyalgia (ICD-10) Back pain ?M54.9 - Dorsalgia, unspecified (ICD-10) Neck pain ?M54.2 - Cervicalgia (ICD-10) ADD (attention deficit disorder) ?F98.8 - Other specified behavioral and emotional disorders with onset usually occurring in childhood and adolescence (ICD-10) Insomnia ?G47.00 - Insomnia, unspecified (ICD-10) Bipolar disorder ?F31.9 - Bipolar disorder, unspecified (ICD-10) Depression ?F32.A - Depression, unspecified (ICD-10) PTSD (post-traumatic stress disorder) ?F43.10 - Post-traumatic stress disorder, unspecified (ICD-10) Anxiety ?F41.9 - Anxiety disorder, unspecified (ICD-10) Panic attacks ?F41.0 - Panic disorder [episodic paroxysmal anxiety] (ICD-10) Electronic cigarette use ?Z78.9 - Other specified health status (ICD-10) COVID-19 ?U07.1 - COVID-19 (ICD-10) Seasonal allergies ?J30.2 - Other seasonal allergic rhinitis (ICD-10) Bronchitis ?J40 - Bronchitis, not specified as acute or chronic (ICD-10) Migraine ?G43.909 - Migraine, unspecified, not intractable, without status migrainosus (ICD-10) Request for sterilization ?Z30.2 - Encounter for sterilization (ICD-10) Pelvic pain ?R10.2 - Pelvic and perineal pain (ICD-10) Abnormal uterine bleeding ?N93.9 - Abnormal uterine and vaginal bleeding, unspecified (ICD-10) Menorrhagia ?N92.0 - Excessive and frequent menstruation with regular cycle (ICD-10) Kidney stones ?N20.0 - Calculus of kidney (ICD-10) Peptic ulcer ?K27.9 - Peptic ulcer, site unspecified, unspecified as acute or chronic, without hemorrhage or perforation (ICD-10) GERD (gastroesophageal reflux disease) ?K21.9 - Gastro-esophageal reflux disease without esophagitis (ICD-10) Tachycardia ?R00.0 - Tachycardia, unspecified (ICD-10) Postoperative nausea and vomiting ?R11.2 - Nausea with vomiting, unspecified (ICD-10) ?Z98.890 - Other specified postprocedural states (ICD-10) Surgical History History of colonoscopy ?Z98.890 - Other specified postprocedural states (ICD-10) History of esophagogastroduodenoscopy (EGD) ?Z98.890 - Other specified postprocedural states (ICD-10) S/P ACL repair ?Z98.890 - Other specified postprocedural states (ICD-10) History of arthroscopy of knee ?Z98.890 - Other specified postprocedural states (ICD-10) H/O cervical spinal arthrodesis (08/24/23) ?Z98.1 - Arthrodesis status (ICD-10) Family History Other Family history of bone cancer Family history of colon cancer Family history of diabetes mellitus Family history of hypertension Family history of lung cancer Family history of myocardial infarction Family history of stroke Social History (Updated 02/25/24 @ 07:28 by Jessica Manrique, MOISE) Within the past year, how often did you have a drink containing alcohol: monthly or less Smoking status: Former smoker Second hand tobacco smoke exposure: No Non-prescribed substance use: cannabis (any form) Non-prescribed substance use details: used last yesterday 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 Highest level of school completed/degree received: some college, no degree Little interest or pleasure in doing things: not at all Feeling down, depressed, or hopeless: not at all Meds Home Medications and Allergies Home Medications ?Medication ?Instructions ?Recorded ?Confirmed ?Type albuterol sulfate 90 mcg/actuation 2 inh inhalation Q4H PRN shortness 02/11/24 12/26/24 History aerosol inhaler of breath or wheezing celecoxib 200 mg capsule 200 mg PO .QD 02/11/24 12/26/24 History gabapentin 100 mg capsule 200 mg PO Q12H 02/11/24 12/26/24 History norethindrone 1 mg-ethinyl 1 tab PO DAILY 02/11/24 12/26/24 History estradiol 20 mcg (24)-iron 75 mg (4) tablet (Blisovi 24 Fe) pantoprazole 40 mg tablet,delayed 40 mg PO DAILY 02/11/24 12/26/24 History release propranolol 80 mg capsule,24 80 mg PO Q24H 02/11/24 12/26/24 History hr,extended release sumatriptan succinate 50 mg tablet 50 mg PO Q2H PRN migraine headache 02/11/24 12/26/24 History tizanidine 4 mg tablet 4 mg PO .QHS muscle spasticity 02/11/24 12/26/24 History brexpiprazole 3 mg tablet (Rexulti) 3 mg PO .QD 12/26/24 12/26/24 History bupropion HCl 300 mg 24 hr tablet, 300 mg PO .QD 12/26/24 12/26/24 History extended release clonidine HCl 0.1 mg tablet 0.1 mg PO BID 12/26/24 12/26/24 History hydrocodone 5 mg-acetaminophen 325 1 tab PO Q6H PRN pain 5 days #20 12/26/24 Rx mg tablet tabs lisdexamfetamine 50 mg capsule 50 mg PO .QD 12/26/24 12/26/24 History ([place]) ondansetron 4 mg disintegrating 4 mg PO Q6H PRN nausea and 12/26/24 Rx tablet vomiting #20 tabs Allergies Allergy/AdvReac Type Severity Reaction Status Date / Time cariprazine (From Vraylar) Allergy out of Verified 12/26/24 13:42 body experience metoclopramide (From Reglan) Allergy Unknown Verified 12/26/24 13:42 Penicillins Allergy Rash Verified 12/26/24 13:42 Exam Narrative Exam Narrative: General: The patient appears uncomfortable. She is sitting in bed and in distress vomiting and complaining of pain Skin: Warm, dry, no pallor noted. There is no rash noted. Head: Normocephalic, atraumatic Eye: Normal conjunctiva, no drainage Ears, Nose, Mouth, and Throat: oral mucosa is moist. Nares patent. Cardiovascular: Regular Rate and Rhythm Respiratory: Patient is in no distress, no accessory muscle use, lungs are clear to auscultation, no wheezing, rales or rhonchi Back: non-tender GI: Mild tenderness in epigastric area without mass or distention, no signs of acute Musculoskeletal: The patient has no evidence of calf tenderness, no pitting edema, symmetrical pulses noted bilaterally Neurological: A&O, normal speech Constitutional Vital Signs, click to edit/add: Last Vital Signs Pulse 115 H 12/26/24 13:42 Resp 20 12/26/24 13:42 BP 131/96 H 12/26/24 15:17 Pulse Ox 97 12/26/24 15:50 O2 Del Method Room Air 12/26/24 13:42 Internal Medicine - H&P: Reslt Labs Labs: Short CBC 12/26/24 Range/Units 13:50 WBC 15.7 H (4.0-11.0) 10^3/uL Hgb 16.9 H (12.0-16.0) g/dL Hct 47.6 (36.0-48.0) % Plt Count 435 (150-450) 10^3/uL BMP 12/26/24 13:50 Sodium 142 Potassium 3.4 L Chloride 100 Carbon Dioxide 26.8 BUN 12.0 Creatinine 1.34 H Glucose 162 H Calcium 11.1 H Liver Function 12/26/24 Range/Units 13:50 Total Bilirubin 1.1 H (0.2-1.0) mg/dL Direct Bilirubin 0.2 (0.0-0.2) mg/dL AST 28 (15-37) U/L ALT 52 (14-59) U/L Alkaline Phosphatase 109 (46-116) U/L Albumin 4.9 (3.4-5.0) g/dL Assessment and Plan Assessment and Plan (1) Intractable nausea and vomiting: (2) Depression: Plan Intractable Nausea and Vomiting Leukocytosis likely reactive and in the setting of hemoconcentration Lactic Acidosis in the setting of Dehydration and GI losses Hypokalemia due to GI losses DIOGO in the setting of dehydration and pre renal azotemia -Observe in medical floor with telemetry -Suscpicion for gastric ulcer bleed is extremely low given stable Hgb, abscence of melena or hematochezia or hematemesis -Start Zofran and Compazine IV PRN for nausea/vomiting -Obtain repeat lactic acid and troponin -Also repleted pt's potassium -EKG ordered and reviewed with cardiology, I was concerned about pt's T wave inversions in I, AVL, V4, and V5. I shared the EKG findings with the mainframe architect trousseau consultant, Dr. Chand, as has the patient clinical picture. He states that vomiting could cause T wave inversion which would be transient. No need for any invasive or noninvasive workup for hemic heart disease for now. Will get a troponin for completion. -Started IV NS 100 ml/hr for a total of 2 liters, will reassess pt's renal function tomorrow in am -Discussed the plan with the pt, answered all her questions
[2024-12-26] MEDS: 0.9 % SODIUM CHLORIDE 1,000 ML 1000 ML IV ×2 (16:30→20:36)
[2024-12-26 17:13] LABS: Lactate/Lactic Acid 2.7 mmol/L (0.4-2.0)
[2024-12-26] MEDS: PROCHLORPERAZINE 10 MG/2 ML VIAL 5 MG IV (18:02)
[2024-12-26 19:26] LABS: Magnesium 1.2 mg/dL (1.8-2.4)
[2024-12-26 19:49] LABS: Lactate/Lactic Acid 2.5 mmol/L (0.4-2.0)
[2024-12-26] MEDS: ONDANSETRON PF 4 MG/2 ML VIAL 2 MG IV (20:36)
[2024-12-26] MEDS: MAGNESIUM SULFATE IN WATER 4 GM/100 ML PIGGYBACK IV (21:51)
[2024-12-26] MEDS: 0.9 % SODIUM CHLORIDE 1,000 ML 100 ML IV (21:52)
[2024-12-26 22:29] LABS: Lactate/Lactic Acid 1.8 mmol/L (0.4-2.0)
[2024-12-26] MEDS: GABAPENTIN 100 MG CAPSULE 200 MG PO (23:17)
[2024-12-26] MEDS: DICYCLOMINE HCL 10 MG CAPSULE 20 MG PO (23:17)
[2024-12-27] MEDS: POTASSIUM CHLORIDE IN WATER 10 MEQ/100 ML PREMIX 100 MEQ IV ×4 (00:11→04:42)
[2024-12-27] MEDS: SUMATRIPTAN SUCCINATE 50 MG TABLET PO (03:27)
[2024-12-27 04:06] VITALS: BP 129/85; PULSE 85; TEMP 36.7; O2SAT 97
[2024-12-27 04:12] LABS: Bilirubin Urine NEGATIVE (NEGATIVE); Blood Urine TRACE-I (NEGATIVE); Clarity Urine CLEAR (CLEAR); Color Urine LT. YELLOW (YELLOW); Glucose Urine UA NEGATIVE (NEGATIVE); Ketones Urine 40 mg/dL (NEGATIVE); Leukocyte Esterase Urine NEGATIVE (NEGATIVE); Nitrite Urine NEGATIVE (NEGATIVE); Protein Urine NEGATIVE (NEG/TRACE); Specific Gravity Urine 1.025 (1.005-1.025); Urobilinogen Urine 0.2 EU/dL (0.2-1.0)
[2024-12-27 04:18] LABS: Bacteria Urine NONE SEEN #/HPF (NONE SEEN); Cast Seen? NONE SEEN #/LPF (NONE SEEN); Crystals Seen? None Seen #/HPF (None Seen); Mucus Urine NONE SEEN (NONE SEEN); RBC Urine NONE SEEN #/HPF (0-2); Squamous Epithelial Cell Urine RARE #/LPF (NONE/RARE); WBC Urine NONE SEEN #/HPF (NONE SEEN)
[2024-12-27 04:19] LABS: Urine Culture Indicated NO
[2024-12-27 04:20] LABS: Amphetamine Screen Urine POSITIVE (NEGATIVE); Barbiturates Screen Urine NEGATIVE (NEGATIVE); Benzodiazepines Screen Urine NEGATIVE (NEGATIVE); Buprenorphine Screen Urine NEGATIVE (NEGATIVE); Cannabinoid Screen Urine POSITIVE (NEGATIVE); Cocaine Screen Urine NEGATIVE (NEGATIVE); Methadone Screen Urine NEGATIVE (NEGATIVE); Methamphetamines Screen Urine NEGATIVE (NEGATIVE); Opiate Screen Urine NEGATIVE (NEGATIVE); Oxycodone Screen Urine NEGATIVE (NEGATIVE); Phencyclidine Screen Urine NEGATIVE (NEGATIVE); Tricyclic Antidepressant Urine NEGATIVE (NEGATIVE)
[2024-12-27 05:10] LABS: Basophils Percent Auto 0.2 % (0.2-2.0); Hematocrit 37.6 % (36.0-48.0); Hemoglobin 13.3 g/dL (12.0-16.0); Immature Granulocytes Abs Auto 0.05 10^3/uL (0.00-0.03); Immature Granulocytes Pct Auto 0.4 % (0.0-0.5); Lymphocytes Percent Auto 22.6 % (20.5-60.0); Mean Corpuscular HGB Conc 35.4 g/dL (29.9-35.2); Mean Corpuscular Hemoglobin 30.9 pg (26.7-34.0); Mean Corpuscular Volume 87.2 fL (81.0-99.0); Mean Platelet Volume 9.9 fL (9.5-13.5); Monocytes Absolute Auto 1.1 10^3/uL (0.3-0.8); Monocytes Percent Auto 8.1 % (1.7-12.0); Neutrophils Absolute Auto 9.3 10^3/uL (1.4-6.5); Neutrophils Percent Auto 68.7 % (43.0-75.0); Platelet Count 306 10^3/uL (150-450); Red Blood Count 4.31 10^6/uL (4.20-5.40); Red Cell Distribution Width 13.5 % (11.0-15.0); White Blood Count 13.5 10^3/uL (4.0-11.0)
[2024-12-27 05:32] LABS: Alanine Aminotransferase 34 U/L (14-59); Albumin Globulin Ratio 1.2; Albumin Level 3.6 g/dL (3.4-5.0); Alkaline Phosphatase 81 U/L (46-116); Anion Gap 16.4; Aspartate Amino Transferase 17 U/L (15-37); Bilirubin Total 0.6 mg/dL (0.2-1.0); Calcium 8.5 mg/dL (8.5-10.1); Chloride 104 mmol/L (98-107); Estimated GFR (African America >60 (>=60 mL/min/1.73m^2); Estimated GFR (Non-African Ame >60 (>=60 mL/min/1.73m^2); Globulin 3.1 g/dL; Glucose 98 mg/dL (74-106); Magnesium 2.5 mg/dL (1.8-2.4); Potassium 3.4 mmol/L (3.5-5.1); Sodium 140 mmol/L (136-145); Total Protein 6.7 g/dL (6.4-8.2)
[2024-12-27 08:03] VITALS: BP 122/81; PULSE 101; TEMP 36.8; O2SAT 98
[2024-12-27] MEDS: PROPRANOLOL HCL 80 MG CAP.24H PO (08:22)
[2024-12-27] MEDS: BUPROPION HCL 150 MG XL TABLET 24H 300 MG PO (08:22)
[2024-12-27] MEDS: CLONIDINE HCL 0.1 MG TABLET PO (08:22)
[2024-12-27] MEDS: GABAPENTIN 100 MG CAPSULE 200 MG PO (08:22)
[2024-12-27] MEDS: ONDANSETRON PF 4 MG/2 ML VIAL 2 MG IV (08:23)
[2024-12-27] MEDS: PANTOPRAZOLE SODIUM 40 MG TABLET.DR PO (08:23)
[2024-12-27] MEDS: DICYCLOMINE HCL 10 MG CAPSULE PO (11:47)
--- NOTE | 2024-12-27 12:19 | CM.NOTE ---
Rounds made with Dr. Donaldson. Plan for discharge today. Follow up with PCP in 1-2 weeks. Script for Bently for abd cramping. Verbalizes understanding.
--- NOTE | 2024-12-27 14:15 | P.DS_ITS ---
DS: Providers Provider Date of admission: 12/26/24 17:46 Primary care physician: SHALONDA Bo Anticipated date of discharge: 12/27/24 DS: Diagnosis Discharge Diagnosis (1) Intractable nausea and vomiting: (2) Depression: Plan As above DS: Summary Hospital Course Hospital Course: This is a 39-year-old female with past medical history of migraine on Imitrex as needed as well as history of bleeding stomach ulcer here for intractable nausea and vomiting that started last night. Patient does not recall eating outside or eating something unusual, however since last night she was complaining of abdominal crampiness as well as burning sensation in the epigastric area 02/11 comes and goes no radiation referral. Associated with intractable nausea and vomiting with anorexia. Patient said that she cannot keep anything down. He denies any diarrhea or fever or chills. She denies any exposure to sick contacts. In the ED, patient was tachycardic and she was in distress they tried to turn discharge her after symptomatically however patient continued to be nauseous and vomiting. She denies alcohol intake or drug use or smoking but states that she smokes marijuana. Last time she had marijuana more than 2 days ago. Patient was saturating well on room air but she was sitting up in bed contracted trying to avoid vomiting. She was in distress complaining of severe nausea when I saw her. CBC drawn in the ED showed leukocytosis of 15,000 with hemoglobin of 16.9 and platelet count of 400 35K, to me appears to be hemoconcentrated, her chemistry showed potassium of 3.4 as well as creatinine of 1.34 with lactic acid of 3, her calcium was 11 which I think is also due to dehydration, AST and ALT were normal. She did have total protein of 8.8 which also consistent with dehydration. CT abdomen pelvis was negative for acute intra-abdominal pathology and is negative for bowel obstruction obstructive uropathy. Intractable Nausea and Vomiting Leukocytosis likely reactive and in the setting of hemoconcentration Lactic Acidosis in the setting of Dehydration and GI losses Hypokalemia due to GI losses DIOGO in the setting of dehydration and pre renal azotemia -Observe in medical floor with telemetry -Suscpicion for gastric ulcer bleed is extremely low given stable Hgb, abscence of melena or hematochezia or hematemesis -Start Zofran and Compazine IV PRN for nausea/vomiting -Obtain repeat lactic acid and troponin -Also repleted pt's potassium -EKG ordered and reviewed with cardiology, I was concerned about pt's T wave inversions in I, AVL, V4, and V5. I shared the EKG findings with the customer counter associate personnel monitor, Dr. hCand, as has the patient clinical picture. He states that vomiting could cause T wave inversion which would be transient. No need for any invasive or noninvasive workup for hemic heart disease for now. Will get a troponin for completion. -Started IV NS 100 ml/hr for a total of 2 liters, will reassess pt's renal function tomorrow in am -Discussed the plan with the pt, answered all her questions 12/27/2024 patient is doing much better no nausea no vomiting is able to tolerate food. She wants to be discharged today I think she is hemodynamically stable and clinically stable to be discharged today. I reviewed her labs her renal function improved with IV hydration. Her leukocytosis still there but very mild compared on admission which I think is due to hemoconcentration on admission. Patient will be discharged today and she was counseled on increasing hydration and to follow with her PCP with another lab work before she sees her PCP. She understand agrees with this plan of management and was appreciative of her effort Status at Discharge Overall status at discharge: patient is back to baseline Time Spent with Patient Time attestation: Total time spent providing and/or coordinating discharge services: Exam Narrative Exam Narrative: General: Patient is much more comfortable than yesterday. Lying in bed comfortable Skin: Warm, dry, no pallor noted. There is no rash noted. Head: Normocephalic, atraumatic Eye: Normal conjunctiva, no drainage Ears, Nose, Mouth, and Throat: oral mucosa is moist. Nares patent. Cardiovascular: Regular Rate and Rhythm Respiratory: Patient is in no distress, no accessory muscle use, lungs are clear to auscultation, no wheezing, rales or rhonchi Back: non-tender GI: Still has some mild tenderness in epigastric area without mass or distention, no signs of acute Abdomen: Musculoskeletal: The patient has no evidence of calf tenderness, no pitting edema, symmetrical pulses noted bilaterally Neurological: A&O, normal speech Constitutional Vital Signs, click to edit/add: Last Vital Signs Temp 98.2 F 12/27/24 08:03 Pulse 101 H 12/27/24 08:03 Resp 16 12/27/24 08:03 BP 122/81 12/27/24 08:03 Pulse Ox 98 12/27/24 08:03 O2 Del Method Room Air 12/27/24 08:03 DS: Data Data Completed and Pending Labs on day of discharge: Labs from last 24 hours 12/27/24 12/27/24 12/26/24 04:48 04:02 22:00 WBC 13.5 H RBC 4.31 Hgb 13.3 Hct 37.6 MCV 87.2 MCH 30.9 MCHC 35.4 H RDW 13.5 Plt Count 306 MPV 9.9 Neut % (Auto) 68.7 Lymph % (Auto) 22.6 [place] % (Auto) 8.1 Eos % (Auto) 0.0 L Baso % (Auto) 0.2 Neut # (Auto) 9.3 H Lymph # (Auto) 3.0 [place] # (Auto) 1.1 H Eos # (Auto) 0.0 Baso # (Auto) 0.0 Abs Immat Gran (auto) 0.05 H Imm/Tot Granulo (auto) 0.4 Sodium 140 Potassium 3.4 L Chloride 104 Carbon Dioxide 23.0 Anion Gap 16.4 BUN 6.0 L Creatinine 0.75 Est GFR ( Amer) >60 Est GFR (Non-Af Amer) >60 BUN/Creatinine Ratio 8.0 Glucose 98 Lactate 1.8 Calcium 8.5 Magnesium 2.5 H Total Bilirubin 0.6 Direct Bilirubin AST 17 ALT 34 Alkaline Phosphatase 81 Troponin I High Sens Total Protein 6.7 Albumin 3.6 Globulin 3.1 Albumin/Globulin Ratio 1.2 Amylase Lipase Serum HCG, Qual Urine Color Lt. yellow Urine Clarity Clear Urine pH 6.0 Ur Specific [place] 1.025 Urine Protein Negative Urine Glucose (UA) Negative Urine Ketones 40 A Urine Occult Blood Trace-i Urine Nitrite Negative Urine Bilirubin Negative Urine Urobilinogen 0.2 Ur Leukocyte Esterase Negative Urine RBC None seen Urine WBC None seen Ur Squamous Epith Cells Rare Urine Crystals None seen Urine Bacteria None seen Urine Casts None seen Urine Mucus None seen Ur Culture Indicated? No Urine Opiates Screen Negative Ur Buprenorphine Scrn Negative Ur Oxycodone Screen Negative Urine Methadone Screen Negative Ur Barbiturates Screen Negative U Tricyclic Antidepress Negative Ur Phencyclidine Scrn Negative Ur Amphetamines Screen Positive A U Methamphetamines Scrn Negative U Benzodiazepines Scrn Negative Urine Cocaine Screen Negative U Cannabinoids Screen Positive A 12/26/24 12/26/24 12/26/24 19:00 16:35 13:50 WBC RBC Hgb Hct MCV MCH MCHC RDW Plt Count MPV Neut % (Auto) Lymph % (Auto) [place] % (Auto) Eos % (Auto) Baso % (Auto) Neut # (Auto) Lymph # (Auto) [place] # (Auto) Eos # (Auto) Baso # (Auto) Abs Immat Gran (auto) Imm/Tot Granulo (auto) Sodium 142 Potassium 3.4 L Chloride 100 Carbon Dioxide 26.8 Anion Gap 18.6 BUN 12.0 Creatinine 1.34 H Est GFR ( Amer) 53 L Est GFR (Non-Af Amer) 44 L BUN/Creatinine Ratio 9.0 Glucose 162 H Lactate 2.5 H* 2.7 H* 3.0 H* Calcium 11.1 H Magnesium 1.2 L Total Bilirubin 1.1 H Direct Bilirubin 0.2 AST 28 ALT 52 Alkaline Phosphatase 109 Troponin I High Sens 8.0 6.0 Total Protein 8.8 H Albumin 4.9 Globulin 3.9 Albumin/Globulin Ratio 1.3 Amylase 29 Lipase 33.0 Serum HCG, Qual Negative Urine Color Urine Clarity Urine pH Ur Specific [place] Urine Protein Urine Glucose (UA) Urine Ketones Urine Occult Blood Urine Nitrite Urine Bilirubin Urine Urobilinogen Ur Leukocyte Esterase Urine RBC Urine WBC Ur Squamous Epith Cells Urine Crystals Urine Bacteria Urine Casts Urine Mucus Ur Culture Indicated? Urine Opiates Screen Ur Buprenorphine Scrn Ur Oxycodone Screen Urine Methadone Screen Ur Barbiturates Screen U Tricyclic Antidepress Ur Phencyclidine Scrn Ur Amphetamines Screen U Methamphetamines Scrn U Benzodiazepines Scrn Urine Cocaine Screen U Cannabinoids Screen Discharge Plan Discharge Disposition: Home Health Service Condition: Good Discharge Medications: New hydrocodone-acetaminophen 5-325 mg tablet 1 tab PO Q6H PRN (Reason: pain) 5 Days Qty: 20 0RF ondansetron 4 mg tablet,disintegrating 4 mg PO Q6H PRN (Reason: nausea and vomiting) Qty: 20 0RF dicyclomine 10 mg Capsule 10 mg PO BID 10 Days Qty: 20 0RF Continued albuterol sulfate 90 mcg/actuation HFA aerosol inhaler 2 inh INHALATION Q4H PRN (Reason: shortness of breath or wheezing) Rexulti 3 mg tablet 3 mg PO .QD bupropion HCl 300 mg tablet extended release 24 hr 300 mg PO .QD clonidine HCl 0.1 mg tablet 0.1 mg PO BID Discontinued celecoxib 200 mg capsule 200 mg PO .QD gabapentin 100 mg capsule 200 mg PO Q12H No Action pantoprazole 40 mg tablet,delayed release (DR/EC) 40 mg PO DAILY propranolol 80 mg capsule,extended release 24 hr 80 mg PO Q24H tizanidine 4 mg tablet 4 mg PO .QHS sumatriptan succinate 50 mg tablet 50 mg PO Q2H PRN (Reason: migraine headache) lisdexamfetamine [Vyvanse] 50 mg capsule 50 mg PO .QD Activity: increase activity as tolerated Print Language: Jordanian Patient Instructions: Acute Nausea and Vomiting (DC), Abdominal Pain (DC) Forms: Portal Instructions Follow Up Appointments: January 02 @ 1:40pm with SHALONDA Bo [phone]
[2024-12-27] MEDS: POTASSIUM CHLORIDE 10 MEQ ER TABLET 20 MEQ PO (15:01)
--- NOTE | 2024-12-28 14:36 | CM.DCFOLLOWU ---
1st attempt 12/28/24, no answer
--- NOTE | 2024-12-29 10:00 | CM.DCFOLLOWU ---
2nd attempt 12/29/24, no answer
== END 2024-12-27 15:30 | disposition home or self-care (01) ==
LOC: ER 15:56 → MS 17:57
PROVIDERS: Admitting Provider Student in an Organized Health Care Education/Training Program; Emergency Provider Emergency Medicine; PCP Physician Assistant; Visit Provider Student in an Organized Health Care Education/Training Program
DX: R11.2 Nausea with vomiting, unspecified (principal); E86.0 Dehydration; R10.13 Epigastric pain; Z98.1 Arthrodesis status; Z87.891 Personal history of nicotine dependence; F32.A Depression, unspecified; E87.6 Hypokalemia; N17.9 Acute kidney failure, unspecified; R79.89 Other specified abnormal findings of blood chemistry
CPT/HCPCS: 36415; 74177; 80048; 80053; 80076; 80307; 81001; 82150; 83605; 83690; 83735; 84484; 84703; 85025; 93005; 96361; 96365; 96366; 96367; 96375; 96376; 99285; G0378; J0780; J2405; J2550; J3475; J3480; Q9967

== ENCOUNTER 2025-04-05 07:25 | Observation (INO) | payer OTHER, SELFPAY ==
--- OUTSIDE RECORDS SUMMARY | 2023-09-08 07:15 | XMS_ITS | Continuity of Care Document ---
Author Organization [facility] Address [address] [place] [address] Phone Care Team Providers Care Assurance Manager Name Role Phone Ju Upton DDS Unavailable Unavailable Allergies, Adverse Reactions, Alerts Substance Reaction Status Criticality METOCLOPRAMIDE HCL Active No Inform ation amoxicillin Active No Information Medications Medication Instructions Dosage Effective Dates (start - stop) Status Comments melatonin 3 mg capsule - Active Vyvanse 20 mg capsule take 1 capsule by oral route every day in the morning 20 MG - Active gabapentin 400 mg capsule take 1 capsule by oral route 3 times every day 400 MG - Active naproxen 250 mg tablet take 1 tablet by oral route 2 times every day with food 250 MG - Active folic acid 1 mg tablet take 1 tablet by oral route every day 1 MG - Active B-12 Plus 5,000 mcg-100 mcg sublingual tablet - Active Candicidal 100 mg-150 mg-50 mg-150 mg capsule - Active Leonor 0.25 mg-35 mcg tablet take 1 tablet by oral route every day 1.00 tablet - Active buspirone 15 mg tablet take 1 tablet by oral route 2 times every day 15 MG - Active ondansetron HCl 8 mg tablet take 1 tablet by oral route 2 times every day 8 MG - Active cyclobenzaprine ER 15 mg capsule,extended release 24 hr take 1 capsule by oral route every day 15 MG - Active Imitrex 50 mg tablet take 1 tablet by oral route after onset of migraine; may repeat after 2 hours if headache returns,not to exceed 200mg in 24hrs 50 MG - Active Prilosec OTC 20 mg tablet,delayed release - Active Procedures Procedure Date Oral Hygiene Instruction Resin Composite 1s; Posterior Mar-06-202 4 Resin Composite 1s; Posterior 4 Oral Hygiene Instruction Resin Composite 2s; Posterior 4 Oral Hygiene Instruction Post Op Visit Dental Bitewings Four Films Intraoral-periapical 1st Film Oral Hygiene Instruction Periodic Oral Eval Estab Patient 2023 IMMUNIZATION ADMIN HEP B VACCINE, ADULT, IM MISC Charge IMMUNIZATION ADMIN HEP B VACCINE, ADULT, IM Resin Three Surfaces Anterior 3 Resin Composite 1s; Posterior 3 Oral Hygiene Instruction IMMUNIZATION ADMIN, EACH ADD HEP B VACCINE, ADULT, IM IMMUNIZATION ADMIN TDAP VACCINE >7 IM Resin Three Surfaces Anterior 3 Resin Three Surfaces Anterior 3 Oral Hygiene Instruction Oral Hygiene Instruction Resin Composite 2s; Posterior 3 Prophylaxis Adult Nutrit Couns For Control Of [place] Dis Sep Oral Hygiene Instruction Limited Oral Eval Oral Hygiene Instruction Resin 4+ W/incis Angle Anterior 023 Resin 4+ W/incis Angle Anterior 023 Resin One Surface; Anterior Oral Hygiene Instruction Prophylaxis Adult Oral Hygiene Instruction Comp Oral Eval New/estab Patient 2021 Oral Hygiene Instruction Advance Directives Directive Yes / No Effective Date File Name No Information Encounters Encounter Description Practice Location Reason(s) For Visit Diagnoses Date Provider Providers Copied on Encounter [facility], [address] [place] [address], [place], [place], [id number], tel:[phone] Dental Clinic FILLING (chief complaint) Encounter for screening for dental disorders 4 Won Dodd. . tel:[phone] [facility], [address], [place], [id number], [place] tel:[phone] Dental Clinic Encounter for screening for dental disorders 4 Won SHERMANS Ju. . tel:[phone] [facility], [address], [place], [id number], [place] tel:[phone] Dental Clinic Body mass index [BMI] 28.0-28.9, adultEncounter for screening for [facility] tel:[phone] [facility], [address], [place], [id number], [place] tel:[phone] Dental Clinic bro (chief complaint) Encounter for screening for dental disorders 4 [facility] Ju. . tel:[phone] [facility], [address], [place], [id number], [place] tel:[phone] [facility] No Information 3 Visci DO Chris. [address], [place], [id number], [place]. tel:[phone] [facility], [address], [place], [id number], [place] tel:[phone] [facility] No Information 3 Visci DO Chris. [address], [place], [id number], [place]. tel:[phone] [facility], [address], [place], [id number], [place] tel:[phone] [facility] No Information - 3 Visci DO Chris. [address], [place], [id number], [place]. tel:[phone] [facility], [address], [place], [id number], [place] tel:[phone] Dental Clinic fill (chief complaint) Encounter for screening for dental disorders 3 Won DDS Ju. . tel:[phone] [facility], [address], [place], [id number], [place] tel:[phone] [facility] No Information 3 Visci DO Perez. [address], [place], [id number], [place]. tel:[phone] [facility], [address], [place], [id number], [place] tel:[phone] [facility] No Information 3 Viscemily Sher. [address], [place], [id number], [place]. tel:[phone] [facility], [address], [place], [id number], [place] tel:[phone] Dental Clinic BRO (chief complaint) Encounter for screening for dental disorders 3 Won DDS Ju. . tel:[phone] [facility], [address], [place], [id number], [place] tel:[phone] Dental Clinic Fill (chief complaint) Encounter for screening for dental disorders 3 Won DDS Ju. . tel:[phone] [facility], [address], [place], [id number], [place] tel:[phone] Dental Clinic Adult prophy (chief complaint) Encounter for screening for dental disorders 3 Adiel DDS Iggy. [address] [place], [address], [place]. tel:[phone] [facility], [address], [place], [id number], [place] tel:[phone] Dental Clinic consult (chief complaint) Encounter for screening for dental disorders 3 Antony DDS Brenden. [address], [place], [id number], [place]. tel:[phone] [facility], [address] [place] [address], [id number], [place] tel:[phone] Dental Clinic Fill (chief complaint) Encounter for screening for dental disorders 3 Won STRICKLAND Ju. . tel:[phone] [facility], [address] [place] [address], [id number], [place] tel:[phone] Dental Clinic Encounter for screening for dental disorders 3 Won STRICKLAND Ju. . tel:[phone] [facility], [address] [place] [address], [id number], [place] tel:[phone] Dental Clinic Filling (chief complaint) Encounter for screening for dental disorders 2 Won [facility] Master. [address] [place] [address], [id number], [place]. tel:[phone] [facility], [address] [place] [address], [id number], [place] tel:[phone] Dental Clinic prophy (chief complaint) Encounter for screening for dental disorders 2 Won STRICKLAND Ju. . tel:[phone] [facility], [address] [place] [address], [id number], [place] tel:[phone] Dental Clinic DN (chief complaint) prophy (chief complaint) Encounter for screening for dental disorders 2 Won SHERMANS Ju. . tel:[phone] Family History Family Member Type Diagnosis Age At Onset No Information Immunizations Vaccine Date Status Comments Hep B, adult, 3 dose administered Source: New Immunization Record Hep B, adult, 3 dose administered Source: New Immunization Record Influenza, injectable, MDCK, preservative free, quadrivalent administered Source: Other Regist ry Hep B, adult, 3 dose administered Source: New Immunization Record Tdap (Boostrix) administered Source: New Immunization Record COVID-19, mRNA, LNP-S, PF, 3 0 mcg/0.3 mL dose, nik-sucrose administered Source: [facility] COVID-19, mRNA, LNP-S, PF, 3 0 mcg/0.3 mL dose, nik-sucrose administered Source: [facility] MMR administered Source: Other R egistry DTP administered Source: Other R egistry OPV administered Source: Other R egistry Hib, unspecified formulation administered Source: Other Registry DTP administered Source: Other R egistry OPV administered Source: Other R egistry MMR administered Source: Other R egistry DTP administered Source: Other R egistry OPV administered Source: Other R egistry DTP administered Source: Other R egistry OPV administered Source: Other R egistry DTP administered Source: Other R egistry Payers Payer name Insurance type Covered libertarian ID Authorvelia brar(s) [facility] [employer] [place] [id number] Medicaid Wrap - [place] [id number] [facility] Medicaid [place] [id number] Medicaid Wrap - [place] [id number] [place] [employer] [place] [id number] Medicaid Wrap - [place] [id number] [place] 0223 [id number] Medicaid Wrap - [place]HC [place] [id number] Social History Type Description Quantity Date Captured Comments Alcohol Use Details Unknown Caffeine Use Details Unknown Tobacco Use Status Ex-cigarette smoker 024 Smoking Status Former smoker Sex Female Sexual Orientation Straight or heterosexual Gender Identity Female Vital Signs Date / Time: Height Weight BMI Pulse Rate Blood Pressure Temperature Respiratory Rate Body Surface Area Head Circumference Head Circ. Percentile Wt./Robert. Percentile BMI percentile Pulse Ox Inhaled Ox 11:18 AM 69 /min 105/69 mm[Hg] Chief Complaint And Reason For Visit From encounter dated 09/08/2023 11:15'. FILLING (chief complaint). Description: FILLING Reason For Referral Reason For Referral No Information Plan Of Treatment Date Type Action Status Goal PRAPARE ASSESSMENT. Due on due Goal Depression screening. Due on due Goal Tdap Vaccine. Due on 2032 due Goal RLP. Due on due Goal Influenza vaccine. Due on [place] due Goal Unhealthy drug use screening . Due on due Goal Tdap due Goal Hepatitis C screening. Due o n due Goal HPV. Due on due Goal Influenza vaccine. Due on due Goal Tdap due Goal Hepatitis C screening. Due o n due Goal RLP. Due on due Goal Depression screening. Due on due Goal Unhealthy drug use screening . Due on due Goal Tdap Vaccine. Due on 2032 due Goal PRAPARE ASSESSMENT. Due on due Goal HPV. Due on due Goal Dietary management education , guidance, and counseling completed Goal Unhealthy drug use screening . Due on due Goal HPV. Due on due Goal RLP. Due on due Goal Influenza vaccine. Due on due Goal PRAPARE ASSESSMENT. Due on due Goal Depression screening. Due on due Goal Tdap due Goal Hepatitis C screening. Due o n due Goal Tdap Vaccine. Due on 2032 due Goal Unhealthy drug use screening . Due on due Goal Tdap due Goal PRAPARE ASSESSMENT. Due on due Goal RLP. Due on due Goal Tdap Vaccine. Due on 2032 due Goal Depression screening. Due on due Goal Hepatitis C screening. Due o n due Goal HPV. Due on due Goal Influenza vaccine. Due on due Goal Depression screening. Due on due Goal Influenza vaccine. Due on due Goal HPV. Due on due Goal Tdap due Goal Hepatitis C screening. Due o n due Goal PRAPARE ASSESSMENT. Due on due Goal Unhealthy drug use screening . Due on due Goal RLP. Due on due Goal Tdap Vaccine. Due on 2032 due Goal Tdap Vaccine. Due on 2032 due Goal PRAPARE ASSESSMENT. Due on due Goal Tdap due Goal Depression screening. Due on due Goal Influenza vaccine. Due on Se p due Goal RLP. Due on due Goal RLP. Due on due Goal Depression screening. Due on due Goal Tdap Vaccine. Due on 2032 due Goal PRAPARE ASSESSMENT. Due on S ep due Goal Tdap due Goal Influenza vaccine. Due on Se p due Goal Depression screening. Due on due Goal PRAPARE ASSESSMENT. Due on A due Goal Influenza vaccine. Due on Au due Goal Tdap Vaccine. Due on 2032 due Goal RLP. Due on due Goal Tdap due Goal Hep A. Due on du e Goal Tdap. Due on due Goal Influenza vaccine. Due on Ap due Goal Depression screening. Due on due Goal PRAPARE ASSESSMENT. Due on A due Goal RLP. Due on due Goal Tdap Vaccine. Due on 2022 due Goal RLP. Due on due Goal Depression screening. Due on due Goal Tdap. Due on due Goal Influenza vaccine. Due on Ap due Goal PRAPARE ASSESSMENT. Due on A due Goal Tdap Vaccine. Due on 2022 due Goal PRAPARE ASSESSMENT. Due on M due Goal Influenza vaccine. Due on Ma due Goal Depression screening. Due on due Goal Tdap. Due on due Goal RLP. Due on due Goal Hep A. Due on du e Goal Hep A. Due on du e Goal Tdap Vaccine. Due on 2022 due Goal PRAPARE ASSESSMENT. Due on due Goal Depression screening. Due on due Goal Tdap. Due on due Goal RLP. Due on due Goal Influenza vaccine. Due on due Goal PRAPARE ASSESSMENT. Due on due Goal Tdap. Due on due Goal Depression screening. Due on due Goal Influenza vaccine. Due on due Goal RLP. Due on due Goal Influenza vaccine. Due on Oc due Goal Tdap. Due on due Goal RLP. Due on due Goal Depression screening. Due on due Goal PRAPARE ASSESSMENT. Due on O due Goal Influenza vaccine. Due on due Goal Depression screening. Due on due Goal Tdap. Due on due Goal RLP. Due on due Goal Depression screening. Due on due Goal Tdap. Due on due Goal Influenza vaccine. Due on due Goal RLP. Due on due History Of Present Illness Encounter Date Complaint History Of Prese nt Illness FILLING FILLING bro rbo fill BRO BRO Fill Adult prophy Adult Prophy consult Fill Filling Continue with tr eatment prophy prophy prophy prophy DN DN Functional Status Date Functional Assessmen t No Information Instructions Date Instruction Additional Infor mation Giving encouragement to exercise Related to Body mass index [BMI] 28.0-28.9, adult Dietary management e ducation, guidance, and counseling Related to Body mass index [BMI] 28.0-28.9, adult Assessments Type Assessment Date No Information Patient Care Teams Name Effective Dates (start - stop) Status Members No Information
--- OUTSIDE RECORDS SUMMARY | 2025-02-15 11:45 | XMS_ITS ---
Author Organization [facility] es Address [address] [place] [address] Care Team Providers Care Senior Media Buyer Name Role Phone Bre Tineo Primary Care Provider [phone] Nayana Gifford [phone] REASON FOR VISIT 1 week f/u Social History Sex Assigned At : Social History Observation Description Sex Assigned At Female Encounters Encounter Location Date Provider Diagnosis [facility] [address] [place] [address] 2024 Nayana Zaragoza Plan Of Treatment Next Appt Details Provider Name:Bre rene, 04/13/2025 05:15:00 PM, [address] [facility] [place], [address], Provider Name:Nayana Zaragoza, 1 02:45:00 PM, [address] [place], [address], Progress Notes * LADI YUN LDOB:1984 (40 yo F)Acc No.[id number]:02/15/2025 F/U - Patient Patient: LADI LEONG Provider: Jose ZARAGOZA :1985 A ge:39 Y S ex:Female Date:02/15/2025 Address:[address], [place], [id number] Pcp:Bre Tineo Subjective: * Chief Complaints: * 1 . 1 week f/u. Objective: Therapeutic Interventions: Assessment: Plan: * Images: Care Plan Details* * Electronic signature of JACOB Giles on 04/05/2025 at 07:41 AM EDT Sign off status: Pending * Provider: Jose ZARAGOZA Date: 0 02/15/2025 Generated for Deborah spears/Gin/Harshad on: 1 07:41 AM EDT
--- OUTSIDE RECORDS SUMMARY | 2025-03-01 10:47 | XMS_ITS ---
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 Name Role Phone HAZARIKA, SUROVI Referring Unavailable MIZANIN, REUBEN L Primary Care Unavailable HAZARIKA, SUROVI Referring Unavailable MIZANIN, REUBEN L Primary Care Unavailable PACENTA, LLOYD Referring Unavailable MIZANIN, REUBEN L Primary Care Unavailable BUTT, BILAL MISTY Attending Unavailable BUTT, BILAL MISTY Referring Unavailable MIZANIN, REUBEN L Primary Care Unavailable MIZANIN, REUBEN L Referring Unavailable MIZANIN, REUBEN L Primary Care Unavailable Guanaco, Saundra Admitting Unavailable Genserene, Saundra Attending Unavailable Gennari, Saundra Admitting Unavailable Aravind Douglass Attending Unavailable Kylee Cuba Consulting Unavailable Kylee Cuba Consulting Unavailable MD Kylee Cuba Consulting Unavailab le Kylee Cuba Consulting Unavailable Verónica Yates Attending Unavailable MIZANIN, REUBEN L Referring Unavailable MIZANIN, REUBEN L Primary Care Unavailable HAZARIKA, SUROVI Attending Unavailable MIZANIN, REUBEN L Primary Care Unavailable MIZANIN, REUBEN L Attending Unavailable MIZANIN, REUBEN L Primary Care Unavailable MIZANIN, REUBEN L Referring Unavailable MIZANIN, REUBEN L Primary Care Unavailable MIZANIN, REUBEN L Attending Unavailable MIZANIN, REUBEN L Primary Care Unavailable MIZANIN, REUBEN L Referring Unavailable MIZANIN, REUBEN L Primary Care Unavailable MIZANIN, REUBEN L Attending Unavailable MIZANIN, REUBEN L Primary Care Unavailable HAZARIKA, SUROVI Referring Unavailable MIZANIN, REUBEN L Primary Care Unavailable PROBLEMS DATE TYPE CONDITION / CODE ATTENDING STATUS [facility] 10/05/2024 Active Upper back pain / M54.9(ICD-10) MIZANIN, REUBEN L Active [facility] 04/09/2023 Active Neck pain / M54.2(ICD-10) REUBEN AGRAWAL Active [facility] 01/29/2025 Active SOB (shortness o f breath) / R06.02(ICD-10) NA [facility] 01/29/2025 Active Wheezing / R06.2(ICD-10) NA [facility] 01/26/2025 Active Forgetfulness / R68.89(ICD-10) NA Active [facility] 01/26/2025 Active Nausea and vomit ing, unspecified vomiting type / R11.2(ICD-10) REUBEN AGRAWAL Active [facility] 01/26/2025 Active Fatty liver / K76.0(ICD-10) REUBEN AGRAWAL Active [facility] 10/05/2024 Active Vitamin D defici ency / E55.9(ICD-10) NA Active [facility] 01/25/2025 Active Dyslipidemia / E78.5(ICD-10) NA Active [facility] 01/25/2025 Active Special screenin g examination for viral disease / Z11.59(ICD-10) Active [facility] 12/17/2024 Active Screening mammog roseann, encounter for / Z12.31(ICD-10) [facility] 12/12/2024 Active History of tobac co use / Z87.891(ICD-10) FRANCHESCA LOW Active [facility] 12/12/2024 Active Mixed hyperlipid emia / E78.2(ICD-10) DEVANTE SUROVI Active [facility] 08/24/2023 Active 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 Author Type: Physician Sub Master Type: Progress Notes Filed: 03/01/2025 12:47 Note Text: Subjective The patient is a 40-year-old female with chronic neck and back pain, presenting for evaluation and management of worsening myofascial neck and upper back pain with radicular symptoms into the shoulders and arms. Neck and Back Pain: - Brianna Byers reports worsening pain in the back, shoulders, neck, and arm over the past several months but has had chronic (years) of pain. - Recent physical therapy (PT) and occupational therapy (OT) were beneficial; completed visits for the year. Most particularly - found benefit from dry needling and traction. - Pain is most comfortable when the head is laid back. - Currently taking Celebrex in the morning, gabapentin 2x in the morning and 2x at 12:00, and 2-3 muscle relaxers at night (more than prescribed) - Pain at night is severe, takes my breath away. - Tried OxyContin from mother's post-surgery medication, which provided relief and sleep. Musculoskeletal: (+) neck pain, (+) upper back pain, (+) shoulder pain, (+) arm muscle cramping Respiratory: (+) nocturnal shortness of breath Objective Blood pressure 108/74, pulse (!) 56, temperature 36.4 ?C (97.6 ?F), height 152.4 cm (5'), weight 81.6 kg (179 lb 14.3 oz), last menstrual period 07/19/2023, SpO2 97%. General: No acute distress. Physical Exam HENT: Head: Normocephalic and atraumatic. Eyes: Extraocular Movements: Extraocular movements intact. Conjunctiva/sclera: Conjunctivae normal. Cardiovascular: Rate and Rhythm: Normal rate and regular rhythm. Heart sounds: No murmur heard. Pulmonary: Effort: Pulmonary effort is normal. Breath sounds: Normal breath sounds. Musculoskeletal: Comments: Soft tissue tenderness of bilateral cervical paraspinal and upper back. Dec ROM due to pain Neurological: Mental Status: She is alert. Mental status is at baseline. Psychiatric: Mood and Affect: Mood normal. Assessment AND Plan 1. Upper back pain (M54.9) 2. 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 Neck pain (M54.2) - Chronic, worsening pain with mechanical features; prior PT/OT provided significant relief but benefits diminished after completion. - Current regimen includes celecoxib in the morning, gabapentin 2 tabs BID (morning and noon), and muscle relaxants at night; requires 2-3 muscle relaxants nightly for pain relief which is more than prescribed. - Increase gabapentin to include an additional nighttime dose. - Discussed LDN - not FDA approved. Start low-dose naltrexone and titrate up; provided education on mechanism, off-label use, and expected effects. - Order TENS unit for home use (used previously and PT and found beneficial) - Discussed potential benefits of acupuncture and advised patient to check insurance coverage. - likely would provide similar relief as the dry needling. - Discussed risks of opioid use, including addiction and tolerance. Do not recommend opioids. Certainly don't recommend taking someone elses medication. - Provided education on mechanical nature of pain, rationale for medication adjustments, and home management strategies. Reuben Agrawal PA-C Recording using NASOFORM software for draft documentation of the visit was discussed with the patient/authorized industrial relations representative; all questions welcomed and answered. Patient/authorized industrial relations representative agreed to proceed CNOV Observed: 03/01/2025 11:00 AM Status: COMPLETED Source: [facility] Office Visit (FELIPE) BRIANNA BYERS ([id number]) 1985 F Date Time Provider Department 03/01/25 11:00 AM REUBEN AGRAWAL During your visit today, we recorded the following information about you: Temperature Pulse Blood pressure Weight 97.6 degrees 56/minute 108/74 81.6 kg Height 1.524 m Reuben Agrawal PA-C 03/01/2025 11:27 AM Signed - Increase your gabapentin by adding your usual two-pill dose at bedtime; continue your current morning and noon gabapentin doses as before. - Continue taking Celebrex (celecoxib) each morning and your muscle relaxer as previously prescribed. - A prescription for low-dose naltrexone has been sent to the compounding pharmacy ([facility]); they will contact you with pickup instructions and dosing details. You'll start low - and titrate up to 4.5mg to take daily - An order for a TENS unit (electrical stimulator) has been placed through [facility]; expect their call within 1-2 days to arrange delivery and setup. - Check with your insurance about coverage for acupuncture treatments and consider scheduling sessions if covered. - You may try an acupuncture mat (the spiky mat available online) as an additional at-home therapy. Unsure if it'll help. - If you?d like to resume physical therapy or occupational therapy for your neck and back, contact our office to request a referral. Reuben Agrawal PA-C 03/01/2025 12:47 PM Signed Subjective The patient is a 40-year-old female with chronic neck and back pain, presenting for evaluation and management of worsening myofascial neck and upper back pain with radicular symptoms into the shoulders and arms. Neck and Back Pain: - Brianna Byers reports worsening pain in the back, shoulders, neck, and arm over the past several months but has had chronic (years) of pain. - Recent physical therapy (PT) and occupational therapy (OT) were beneficial; completed visits for the year. Most particularly - found benefit from dry needling and traction. - Pain is most comfortable when the head is laid back. - Currently taking Celebrex in the morning, gabapentin 2x in the morning and 2x at 12:00, and 2-3 muscle relaxers at night (more than prescribed) - Pain at night is severe, takes my breath away. - Tried OxyContin from mother's post-surgery medication, which provided relief and sleep. Musculoskeletal: (+) neck pain, (+) upper back pain, (+) shoulder pain, (+) arm muscle cramping Respiratory: (+) nocturnal shortness of breath Objective Blood pressure 108/74, pulse (!) 56, temperature 36.4 ?C (97.6 ?F), height 152.4 cm (5'), weight 81.6 kg (179 lb 14.3 oz), last menstrual period 07/19/2023, SpO2 97%. General: No acute distress. Physical Exam HENT: Head: Normocephalic and atraumatic. Eyes: Extraocular Movements: Extraocular movements intact. Conjunctiva/sclera: Conjunctivae normal. Cardiovascular: Rate and Rhythm: Normal rate and regular rhythm. Heart sounds: No murmur heard. Pulmonary: Effort: Pulmonary effort is normal. Breath sounds: Normal breath sounds. Musculoskeletal: Comments: Soft tissue tenderness of bilateral cervical paraspinal and upper back. Dec ROM due to pain Neurological: Mental Status: She is alert. Mental status is at baseline. Psychiatric: Mood and Affect: Mood normal. Assessment AND Plan 1. Upper back pain (M54.9) 2. 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 Neck pain (M54.2) - Chronic, worsening pain with mechanical features; prior PT/OT provided significant relief but benefits diminished after completion. - Current regimen includes celecoxib in the morning, gabapentin 2 tabs BID (morning and noon), and muscle relaxants at night; requires 2-3 muscle relaxants nightly for pain relief which is more than prescribed. - Increase gabapentin to include an additional nighttime dose. - Discussed LDN - not FDA approved. Start low-dose naltrexone and titrate up; provided education on mechanism, off-label use, and expected effects. - Order TENS unit for home use (used previously and PT and found beneficial) - Discussed potential benefits of acupuncture and advised patient to check insurance coverage. - likely would provide similar relief as the dry needling. - Discussed risks of opioid use, including addiction and tolerance. Do not recommend opioids. Certainly don't recommend taking someone elses medication. - Provided education on mechanical nature of pain, rationale for medication adjustments, and home management strategies. Reuben Agrawal PA-C Recording using NASOFORM software for draft documentation of the visit was discussed with the patient/authorized industrial relations representative; all questions welcomed and answered. Patient/authorized industrial relations representative agreed to proceed Allergies As of Date: 03/01/2025 Noted Allergy Reaction CARIPRAZINE 12/29/2021 14 - Other: See Comments 16 - Unknown METOCLOPRAMIDE 08/10/2013 14 - Other: See Comments PENICILLINS 12/18/2018 4 - Hives REGLAN (METOCLOPRAMIDE HCL) 12/30/2009 1 - Mental Status Change Date Reviewed: 03/01/2025 Reviewed by: Bess Tabares MA - Fully Assessed Reason for Visit: Back Pain [12] Cmt: Upper back and neck pain worse in the last few months Primary Visit Diagnosis:Upper back pain [M54.9] Other Visit Diagnoses: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) [M48.02, G99.2] Neck pain [M54.2] Order(s):TENS, TWO LEAD [[id number]] Order #: [id number] gabapentin (NEURONTIN) 100 mg capsuleTake 2 capsules by mouth three times a day for 180 days.Disp: 540 capsuleRfl: 1 naltrexone capsule 4.5 mg (CPD)Take 1 capsule by mouth once daily. After completion of titrationDisp: 30 capsuleRfl: 1 naltrexone capsule 1.5 mg (CPD)Take 1 po every day x 1 week then 2 po every day x 1 week then 3 po daily x 2 weeksDisp: 63 capsuleRfl: 0 Prescriptions as of 03/01/2025 - gabapentin (NEURONTIN) 100 mg capsule Take 2 capsules by mouth three times a day for 180 days. - naltrexone capsule 4.5 mg (CPD) Take 1 capsule by mouth once daily. After completion of titration - naltrexone capsule 1.5 mg (CPD) Take 1 po every day x 1 week then 2 po every day x 1 week then 3 po daily x 2 weeks - olanzapine-samidorphan (LYBALVI) 5-10 mg tablet Take 1 tablet by mouth once daily. - buPROPion XL (WELLBUTRIN XL) 150 mg 24 hr tablet Take 1 tablet by mouth once daily. - lisdexamfetamine (VYVANSE) 50 mg capsule Take 1 capsule by mouth once daily for 30 days. - vit-iron fumarate-fa ( MULTIVITAMINS) 28 mg iron- 800 mcg tab Take 1 tablet by mouth once daily. - pantoprazole DR (PROTONIX) 40 mg tablet Take 40 mg by mouth once daily. - cetirizine (ZYRTEC) 10 mg tablet Take 1 tablet by mouth daily at bedtime. - celecoxib (CELEBREX) 200 mg capsule Take 1 capsule by mouth once daily. - tiZANidine (ZANAFLEX) 4 mg tablet Take 1 tablet by mouth daily at bedtime. - REXULTI 3 mg tablet Take 2 mg by mouth once daily. - buPROPion XL (WELLBUTRIN XL) 300 mg 24 hr tablet Take 300 mg by mouth once daily. - cloNIDine HCl (CATAPRES) 0.1 mg tablet Take 0.1 mg by mouth two times a day as needed. For Anxiety - eszopiclone (LUNESTA) 2 mg Take 2 mg by mouth daily at bedtime. - ergocalciferol 50,000 unit capsule (VITAMIN D2, DRISDOL) Take 1 capsule by mouth one time a week. - SUMAtriptan (IMITREX) 50 mg tablet Take 1 tablet (50 mg) by mouth as needed for migraine headache (see administration instructions). at onset of headache. May repeat after 2 hours. - propranolol ER (INDERAL LA) 80 mg 24 hr capsule TAKE 1 CAPSULE BY MOUTH EVERY DAY - cyanocobalamin (VITAMIN B-12) 1,000 mcg tab Take 1 tablet by mouth every afternoon. - albuterol HFA (PROVENTIL HFA) 90 mcg/actuation inhaler Inhale 1-2 Puffs as instructed every 4 hours as needed for wheezing/shortness of breath. - guaiFENesin (MUCINEX) 600 mg 12 hr tablet Take 1,200 mg by mouth twice daily as needed for cold/allergy symptoms. - dicyclomine (BENTYL) 10 mg capsule Take 10 mg by mouth as needed. 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 - Continue taking Celebrex (celecoxib) each morning and your muscle relaxer as previously prescribed. - A prescription for low-dose naltrexone has been sent to the [facility] ([facility]); they will contact you with pickup instructions and dosing details. You'll start low - and titrate up to 4.5mg to take daily - An order for a TENS unit (electrical stimulator) has been placed through [facility]; expect their call within 1-2 days to arrange delivery and setup. - Check with your insurance about coverage for acupuncture treatments and consider scheduling sessions if covered. - You may try an acupuncture mat (the spiky mat available online) as an additional at-home therapy. Unsure if it'll help. - If you?d like to resume physical therapy or occupational therapy for your neck and back, contact our office to request a referral. Prescriptions ordered this encounter Disp Refills Start End GABAPENTIN 100 MG CAPSULE 540 * 1 03/01/2025 08/28/2025 Route: PO Sig: Take 2 capsules by mouth three times a day for 180 days. NALTREXONE 4.5 MG CAPSULE (CPD) 30 c* 1 03/01/2025 Cmt: Compound Medication Route: PO Sig: Take 1 capsule by mouth once daily. After completion of titration NALTREXONE 1.5 MG CAPSULE (CPD) 63 c* 0 03/01/2025 Cmt: Compound Medication Sig: Take 1 po every day x 1 week then 2 po every day x 1 week then 3 po daily x 2 weeks Medications Discontinued During This Encounter Prescriptions - gabapentin (NEURONTIN) 100 mg capsule (Discontinued) Take 2 capsules by mouth two times a day for 90 days. - nitroglycerin sublingual (NITROQUICK) 0.3 mg SL tablet (Discontinued) Dissolve 1 tablet under the tongue one time only for 1 dose. To be administered in Radiology for CTA exam - magnesium oxide 200 mg magnesium tab (Discontinued) Take 2 tablets by mouth once daily. Level of Service: OFFICE/OUTPATIENT ESTABLISHED MOD [facility] 30 MIN [17143] Additional E/M codes: VISIT CPLX INHERENT EANDM ASSOC WITH MED * Disposition: Return if symptoms worsen or fail to improve. Follow-up and Disposition History for Encounter Date Provider Department Center 03/01/2025 [id number]-AQNGTGCREUBEN AGRAWAL*FELIPE [facility] Encounter Status:Closed by REUBEN AGRAWAL on 03/01/25 CNPN Observed: 02/19/2025 12:00 AM Status: COMPLETED Source: [facility] Telephone ([facility]) BRIANNA BYERS ([id number]) 1985 F Date Time Provider Department 02/19/25 REUBEN AGRAWAL During your visit today, we recorded the following information about you: Reuben Agrawal PA-C 02/19/2025 12:24 PM Signed Received updated Rx list from [facility]. Updated psych medication Reuben Agrawal PA-C Allergies As of Date: 02/19/2025 Noted Allergy Reaction CARIPRAZINE 12/29/2021 14 - Other: See Comments 16 - Unknown METOCLOPRAMIDE 08/10/2013 14 - Other: See Comments PENICILLINS 12/18/2018 4 - Hives REGLAN (METOCLOPRAMIDE HCL) 12/30/2009 1 - Mental Status Change Date Reviewed: 01/29/2025 Reviewed by: Tess Jim, NOAM - Fully Assessed Reason for Visit: Received Outside Medical Records [[id number]] Visit Diagnosis:Attention deficit disorder, unspecified type [F98.8] Order(s):magnesium oxide 200 mg magnesium tabTake 2 tablets by mouth once daily.Disp: Rfl: olanzapine-samidorphan (LYBALVI) 5-10 mg tabletTake 1 tablet by mouth once daily.Disp: Rfl: buPROPion XL (WELLBUTRIN XL) 150 mg 24 hr tabletTake 1 tablet by mouth once daily.Disp: Rfl: lisdexamfetamine (VYVANSE) 50 mg capsuleTake 1 capsule by mouth once daily for 30 days.Disp: Rfl: Prescriptions as of 02/19/2025 - magnesium oxide 200 mg magnesium tab Take 2 tablets by mouth once daily. - olanzapine-samidorphan (LYBALVI) 5-10 mg tablet Take 1 tablet by mouth once daily. - buPROPion XL (WELLBUTRIN XL) 150 mg 24 hr tablet Take 1 tablet by mouth once daily. - lisdexamfetamine (VYVANSE) 50 mg capsule Take 1 capsule by mouth once daily for 30 days. - vit-iron fumarate-fa ( MULTIVITAMINS) 28 mg iron- 800 mcg tab Take 1 tablet by mouth once daily. - pantoprazole DR (PROTONIX) 40 mg tablet Take 40 mg by mouth once daily. - cetirizine (ZYRTEC) 10 mg tablet Take 1 tablet by mouth daily at bedtime. - gabapentin (NEURONTIN) 100 mg capsule Take 2 capsules by mouth two times a day for 90 days. - nitroglycerin sublingual (NITROQUICK) 0.3 mg SL tablet Dissolve 1 tablet under the tongue one time only for 1 dose. To be administered in Radiology for CTA exam - celecoxib (CELEBREX) 200 mg capsule Take 1 capsule by mouth once daily. - tiZANidine (ZANAFLEX) 4 mg tablet Take 1 tablet by mouth daily at bedtime. - REXULTI 3 mg tablet Take 2 mg by mouth once daily. - buPROPion XL (WELLBUTRIN XL) 300 mg 24 hr tablet Take 300 mg by mouth once daily. - cloNIDine HCl (CATAPRES) 0.1 mg tablet Take 0.1 mg by mouth two times a day as needed. For Anxiety - eszopiclone (LUNESTA) 2 mg Take 2 mg by mouth daily at bedtime. - ergocalciferol 50,000 unit capsule (VITAMIN D2, DRISDOL) Take 1 capsule by mouth one time a week. - SUMAtriptan (IMITREX) 50 mg tablet Take 1 tablet (50 mg) by mouth as needed for migraine headache (see administration instructions). at onset of headache. May repeat after 2 hours. - propranolol ER (INDERAL LA) 80 mg 24 hr capsule TAKE 1 CAPSULE BY MOUTH EVERY DAY - cyanocobalamin (VITAMIN B-12) 1,000 mcg tab Take 1 tablet by mouth every afternoon. - albuterol HFA (PROVENTIL HFA) 90 mcg/actuation inhaler Inhale 1-2 Puffs as instructed every 4 hours as needed for wheezing/shortness of breath. - guaiFENesin (MUCINEX) 600 mg 12 hr tablet Take 1,200 mg by mouth twice daily as needed for cold/allergy symptoms. - dicyclomine (BENTYL) 10 mg capsule Take 10 mg by mouth as needed. 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 LYBALVI 5 MG-10 MG TABLET 02/19/2025 Class: Med Update Route: PO Sig: Take 1 tablet by mouth once daily. BUPROPION XL 150 MG TAB 02/19/2025 Class: Med Update Route: PO Sig: Take 1 tablet by mouth once daily. LISDEXAMFETAMINE 50 MG CAPSULE 02/19/2025 03/21/2025 Class: Med Update Route: PO Sig: Take 1 capsule by mouth once daily for 30 days. Medications Discontinued During This Encounter Prescriptions - lisdexamfetamine (VYVANSE) 60 mg capsule (Discontinued) Take 1 capsule by mouth once daily for 30 days. Encounter Status:Closed by REUBEN AGRAWAL on 02/19/25 PROGRESS Observed: 02/05/2025 2:53 PM Status: COMPLETED Source: [facility] HNO ID: [id number] Author: SOLEDAD HANNAH, RN Service: ? Author Type: Registered Nurse Type: Progress Notes Filed: 02/05/2025 14:56 Note Text: Progress note printed and faxed to Bre Tineo CNP at [phone] as requested. Transmission received with request for their office to fax our office an updated medication list LUNG DIFFUSION CAPACITY (DLCO) Observed: 01/29/2025 9:17 AM Status: F Source: [facility] Medical Office [place] [address] Test Date: 2025-01-29 Pat Name: BRIANNA BYERS Department: Room: Gender: Female Desktop Technician: : 1985 Requested By: Order Number: [id number] Reading MD: Willy Castaneda MD Interpretive Statements Pre/Post BD PRE The two largest FVCs were repeatable. The two largest FEV1s were repeatable. Time to Peak Flow greater than ATS/ERS standard, FEV1 may not be valid. Current ATS/ERS acceptability and repeatability standards for DLCO met with 2 acceptable maneuvers. Medications and Allergies were reviewed for possible drug interactions per policy. No contraindications or sensitivities were noted. Meds taken: albuterol/21 hours, Zyrtec/ 13 hours before testing. 2 puffs Albuterol (180 mcg) delivered by MDI via holding chamber. HR pre = 71 /min, HR post = 74/min. POST The two largest FVCs were repeatable. The two largest FEV1s were repeatable. Last patient height taken 01/29/2025 IMPRESSION: Spirometry is normal. Negative bronchodilator response. The diffusion capacity (corrected for hemoglobin) is normal. Electronically Signed On 01-29-2025 16:56:16 EDT by Willy Castaneda MD ID: [id number] Name: BRIANNA BYERS Race: White Ht: 60.43 in Wt: 182.10 lbs Age: 39 Gender: Female : 1985 Dx: Shortness of breath Smoking Hx: Non-smoker Doctor: FRANCHESCA LOW Test Date: 01/29/2025 Site: [facility] Tech: Tess Jim PRE-BRONCH POST-BRONCH Donnie LLN Pred ULN %Pred ZScore Donnie %Pred %Chg ZScore SPIROMETRY FVC 3.21 2.26 2.96 3.68 108 0.58 3.23 109 0 0.61 FEV1 2.67 1.89 2.50 3.07 107 0.50 2.71 108 1 0.60 FEV1/FVC 0.83 0.73 0.84 0.93 99 -0.11 0.84 100 0 0.02 FEFMax 6.07 4.91 6.44 7.96 94 -0.39 6.66 103 9 0.24 FEF50 4.86 1.92 3.53 5.14 137 1.35 4.66 131 -4 1.15 FIF50 4.19 3.89 -7 FEF50/FIF50 1.16 90-100 1.20 3 FIVC 3.34 3.30 -1 DIL73-03 3.28 1.79 2.94 4.33 111 0.43 3.43 116 4 0.62 ExpiredTime 5.53 6.12 10 TimeToFEFMax 0.16 0.12 -24 GINNA 0.16 0.12 -25 VolExtrap% 5 4 -25 LUNG DIFFUSION DLCOunc 16.18 15.49 19.57 24.42 82 -1.34 DLCOStdPB 16.01 15.49 19.57 24.42 81 -1.42 VA 4.30 3.55 4.30 5.12 100 0.01 Kco 3.72 3.63 4.61 5.70 80 -1.49 Comments: Pre/Post BD PRE The two largest FVCs were repeatable. The two largest FEV1s were repeatable. Time to Peak Flow greater than ATS/ERS standard, FEV1 may not be valid. Current ATS/ERS acceptability and repeatability standards for DLCO met with 2 acceptable maneuvers. Medications and Allergies were reviewed for possible drug interactions per policy. No contraindications or sensitivities were noted. Meds taken: albuterol/21 hours, Zyrtec/ 13 hours before testing. 2 puffs Albuterol (180 mcg) delivered by MDI via holding chamber. HR pre = 71 /min, HR post = 74/min. POST The two largest FVCs were repeatable. The two largest FEV1s were repeatable. 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 The two largest FEV1s were repeatable. Time to Peak Flow greater than ATS/ERS standard, FEV1 may not be valid. Current ATS/ERS acceptability and repeatability standards for DLCO met with 2 acceptable maneuvers. Medications and Allergies were reviewed for possible drug interactions per policy. No contraindications or sensitivities were noted. Meds taken: albuterol/21 hours, Zyrtec/ 13 hours before testing. 2 puffs Albuterol (180 mcg) delivered by MDI via holding chamber. HR pre = 71 /min, HR post = 74/min. POST The two largest FVCs were repeatable. The two largest FEV1s were repeatable. Last patient height taken 01/29/2025 IMPRESSION: Spirometry is normal. Negative bronchodilator response. The diffusion capacity (corrected for hemoglobin) is normal. Electronically Signed On 01-29-2025 16:56:16 EDT by Willy Castaneda MD ID: [id number] Name: BRIANNA BYERS Race: White Ht: 60.43 in Wt: 182.10 lbs Age: 39 Gender: Female : 1985 Dx: Shortness of breath Smoking Hx: Non-smoker Doctor: FRANCHESCA LOW Test Date: 01/29/2025 Site: [facility] Tech: Tess Jim PRE-BRONCH POST-BRONCH Donnie LLN Pred ULN %Pred ZScore Donnie %Pred %Chg ZScore SPIROMETRY FVC 3.21 2.26 2.96 3.68 108 0.58 3.23 109 0 0.61 FEV1 2.67 1.89 2.50 3.07 107 0.50 2.71 108 1 0.60 FEV1/FVC 0.83 0.73 0.84 0.93 99 -0.11 0.84 100 0 0.02 FEFMax 6.07 4.91 6.44 7.96 94 -0.39 6.66 103 9 0.24 FEF50 4.86 1.92 3.53 5.14 137 1.35 4.66 131 -4 1.15 FIF50 4.19 3.89 -7 FEF50/FIF50 1.16 90-100 1.20 3 FIVC 3.34 3.30 -1 IOV72-43 3.28 1.79 2.94 4.33 111 0.43 3.43 116 4 0.62 ExpiredTime 5.53 6.12 10 TimeToFEFMax 0.16 0.12 -24 GINNA 0.16 0.12 -25 VolExtrap% 5 4 -25 LUNG DIFFUSION DLCOunc 16.18 15.49 19.57 24.42 82 -1.34 DLCOStdPB 16.01 15.49 19.57 24.42 81 -1.42 VA 4.30 3.55 4.30 5.12 100 0.01 Kco 3.72 3.63 4.61 5.70 80 -1.49 Comments: Pre/Post BD PRE The two largest FVCs were repeatable. The two largest FEV1s were repeatable. Time to Peak Flow greater than ATS/ERS standard, FEV1 may not be valid. Current ATS/ERS acceptability and repeatability standards for DLCO met with 2 acceptable maneuvers. Medications and Allergies were reviewed for possible drug interactions per policy. No contraindications or sensitivities were noted. Meds taken: albuterol/21 hours, Zyrtec/ 13 hours before testing. 2 puffs Albuterol (180 mcg) delivered by MDI via holding chamber. HR pre = 71 /min, HR post = 74/min. POST The two largest FVCs were repeatable. The two largest FEV1s were repeatable. Last patient height taken 01/29/2025 FVC_PRE (L) : 3.21 L FVC_POST (L) : 3.23 L FVC_PRED (L) : 2.96 L FVC_LLN (L) : 2.26 L FVC_ULN (L) : 3.68 L FEV1_PRE (L) : 2.67 L FEV1_POST (L) : 2.71 L FEV1_PRED (L) : 2.50 L FEV1_LLN (L) : 1.89 L FEV1_ULN (L) : 3.07 L FEV1/FVC_PRE (%) : 83 % FEV1/FVC_POST (%) : 84 % FEV1/FVC_PRED (%) : 84 % FEV1/FVC_LLN (%) : 73 % GNF37_OGK (L/S) : 5.77 L/S SPR83_FSIN (L/S) : 6.65 L/S CBT37_YZD (L/S) : 1.21 L/S UCW18_BWSJ (L/S) : 1.24 L/S PQR37_VDFO (L/S) : 1.09 L/S FOM12_JND (L/S) : 0.52 L/S FGH58_TDL (L/S) : 2.06 L/S IBT68-17%_PRE (L/S) : 3.28 L/S URD48-45%_POST (L/S) : 3.43 L/S AYS82-12%_PRED (L/S) : 2.94 L/S UPQ57-09%_LLN (L/S) : 1.79 L/S PEF_PRE (L/S) : 6.07 L/S PEF_POST (L/S) : 6.66 L/S PEFMAX_LLN (L/S) : 4.91 L/S PEFMAX_ULN (L/S) : 7.96 L/S SVC_PRED (L) : 2.96 L/S SVC_LLN (L) : 2.26 L/S SVC_ULN (L/S) : 3.68 L/S IC_PRED (L) : 1.97 L/S ERV_PREDICTED (L) : 0.99 L/S DLCO (ML/MIN/MMHG) : 16.18 ml/min/mmHg DLCO_PRED (ML/MIN/MMHG) : 19.57 ml/min/mmHg DLCO_LLN(ML/MIN/MMHG) : 15.49 ml/min/mmHg DLCO_ULN (ML/MIN/MMHG) : 24.42 ml/min/mmHg FET_PRE (S) : 5.53 S FET_POST (S) : 6.12 S VA (L) : 4.30 L VA_PRD (L) : 4.30 L DLCO/VA (ML/MIN/MMHG/L) : 0.04 ml/min/mmHg/L DLCO_VA_PRED (L) : 0.05 ml/min/mmHg/L DLCOCOR (ML/MIN/MMHG) : 16.01 ml/min/mmHg DLCOCOR_PRED (ML/MIN/MMHG) : 19.57 ml/min/mmHg DLCO/VACOR (ML/MIN/MMHG/L) : 0.04 ml/min/mmHg/L METHYLMALONATE SERPL-SCNC Collected: 01/26/2025 10:32 AM Status: F Source: [facility] Comment: Specimen Type : BLOOD SPECIMEN Ordering Facility: [facility] Address: [address] [place] [address] TYPE CODE TESTS RESULT OUT OF RANGE REFERENCE UNITS LAB 23037-3(LOINC ) Methylmalonate SerPl-sCnc 0.10 <=0.40 umol/L Result Comment: This test wa s developed, and its performance characteristics determined by the [facility] Department of Pathology and Laboratory Medicine. It has not been cleared or approved by the FDA. The [facility] Department of Pathology and Laboratory Medicine is regulated under CLIA as qualified to perform high-complexity testing. This test is used for clinical purposes. It should not be regarded as investigational or for research. Performed By: #### 28710-4 # ### [facility] CLIA [id number] [address] [place] [address] OF [facility] VIT B12 SERPL-MCNC Collected: 10:32 AM Status: F Source: [facility] Comment: Specimen Type : BLOOD SPECIMEN Ordering Facility: [facility] Address: [address] [place] [address] TYPE CODE TESTS RESULT OUT OF RANGE REFERENCE UNITS LAB 2132-9(LOINC) Vit B12 SerPl-mCnc 158 700-4791 pg/mL Performed By: #### 2132-9, 2 284-8, TSHRF #### [facility] CLIA [id number] [address] [place] [address] OF [facility] FOLATE SERPL-MCNC Collected: 10:32 AM Status: F Source: [facility] Comment: Specimen Type : BLOOD SPECIMEN Ordering Facility: [facility] Address: [address] [place] [address] TYPE CODE TESTS RESULT OUT OF RANGE REFERENCE UNITS LAB 2284-8(LOINC) Folate SerPl-mCnc 3.8 Low >4.7 ng/mL Performed By: #### 2132-9, 2 284-8, TSHRF #### [facility] CLIA [id number] [address] [place], [place] [address] [place] TSH W/REFLEX FT4 Collected: 10:32 AM Status: F Source: [facility] Comment: Specimen Type : BLOOD SPECIMEN Ordering Facility: [facility] Address: [address] [place] [address] TYPE CODE TESTS RESULT OUT OF RANGE REFERENCE UNITS LAB 3016-3(LOINC) TSH SerPl-aCnc 1.080 0.270-4.200 mIU/L Result Comment: If the patie nt is , TSH reference range varies by gestational period: First Trimester (weeks 9-12): 0.180-2.990 mIU/L Second Trimester: 0.110-3.980 mIU/L Third Trimester: 0.480-4.710 mIU/L Oziel Chan et al. A Practical Approach for the Verifications and Determination of Site- and Trimester-Specific Reference Intervals for Thyroid Function tests in . Thyroid, 2019:29:3:412-420. Soren Christensen, et al. 2017 Guidelines of the [place] Thyroid Association for the Diagnosis and Management of Thyroid Disease during and the . Thyroid, 2017:27:3:315-389. Performed By: #### 2132-9, 2 284-8, TSHRF #### [facility] CLIA [id number] [address] [place], [place] [id number] [place] DEPRECATED HGB A1C BLD Collected: 01/26 10:32 AM Status: F Source: [facility] Order Comment: Specimen Type : BLOOD SPECIMEN Ordering Facility: [facility] Address: [address] [place] [address] TYPE CODE TESTS RESULT OUT OF RANGE REFERENCE UNITS LAB 4548-4(LOINC) HbA1c MFr Bld 5.2 4.3-5.6 % Result Comment: [place] [employer] Association guidelines indicate that patients with HgbA1c in the range 5.7-6.4% are at increased risk for development of diabetes, and intervention by lifestyle modification may be beneficial. HgbA1c greater or equal to 6.5% is considered diagnostic of diabetes. LAB 64333-8([facility]) Est. average glucose Bld gHb Est-mCnc 103 mg/dL Result Comment: eAG: (Estima marlyn average glucose) is a calculated value from HgbA1c and is industrial relations representative of the average blood glucose level in the last 2-3 month period. Performed By: #### 94405-9 # ### [facility] CLIA [id number] [address] [place] [address] OF [facility] PROGRESS Observed: 01/26/2025 9:56 AM Status: COMPLETED Source: [facility] HNO ID: [id number] Author: REUBEN AGRAWAL PA-C Service: ? Author Type: Physician Sub Master Type: Progress Notes Filed: 01/27/2025 20:36 Note Text: Subjective Brianna Byers is a 39 year old female. HPI Patient here for an ER follow up. Memory: noted for years but worse the past few months. Forgets conversations that happened even yesterday. If not written down, forgets about it. Known ADD. Admits depression has been uncontrolled. Followed by psychiatry - seen last week and had medication change - seen monthly. She hasn't mentioned her memory concern to her psychiatrist. N/V/Epigastric pain: She recently was seen at the [facility] for N/V/Epigastric pain then went for evaluation at [facility] ER for same symptoms. At [facility], she was admitted and had CT and EGD (per pt report). She reports she was told the EGD was normal. Pt with hx of gastric ulcer. She smokes marijuana every day - she believes the marijuana helps her nausea. Hx of IBS. She is compliant with her PPI. She does find the phenergan helps. Never had GES. She reports during recent hospital stay - she was told something was wrong with her liver. Review of Systems All other systems reviewed and are negative. Objective BP 103/73 Pulse 63 Temp 36.1 ?C (97 ?F) (Temporal) Ht 154 cm (5' 0.64 ) Wt 80.7 kg (177 lb 14.6 oz) LMP 07/19/2023 (Exact Date) SpO2 98% BMI 34.02 kg/m? Physical Exam HENT: Head: Normocephalic and atraumatic. Eyes: Extraocular Movements: Extraocular movements intact. Conjunctiva/sclera: Conjunctivae normal. Cardiovascular: Rate and Rhythm: Normal rate and regular rhythm. Heart sounds: No murmur heard. Pulmonary: Effort: Pulmonary effort is normal. Breath sounds: Normal breath sounds. Neurological: Mental Status: She is alert. Mental status is at baseline. Psychiatric: Mood and Affect: Mood normal. Affect is tearful (when discussing her memory). Assessment AND Plan Nausea and vomiting, unspecified vomiting type N/V with epigastric pain which has been recently persistent evaluated at 2 ERs (one with hospitalization) including labs, CT (per pt report) and EGD (per pt report). Will request records from [facility] - I'm able to see the labs but not the radiology/CTs or EGD. Recommend d/c of Marijuana use - concern for Marijuana-induced hyperemesis syndrome. Recommend appt with GI - may want further testing for FUNCTIONAL cause such as gastroparesis. Fatty liver Request records from [facility] particularly imaging. I do see reference to fatty liver in the notes I can see from [facility]. Discussed this can be addressed at appt with GI - may benefit from Fibroscan. Recommend weight loss. Forgetfulness Patient expresses concern for her memory as it relates to recent recall of conversations (such as yesterday). Highly suspect either side effect from medication (on sedating medication) or it relate to her uncontrolled depression or known hx of ADD. Labs ordered to evaluate for other possible causes. Reviewed most recent brain imaging - hold off repeat imaging at this time. Recommend she ensure she speaks with her psychiatrist regarding her concerns. If he/she does not feel it'd relate to what they are managing - consider neuropsych testing. Certainly would benefit from better controlling depression (pt acknowledges uncontrolled) prior to memory testing. ABA Matthews Observed: 01/26/2025 9:20 AM Status: COMPLETED Source: [facility] Office Visit (INCTHE) BRIANNA BYERS ([id number]) 1985 F Date Time Provider Department 01/26/25 9:20 AM MARTITARAUL REUBEN Rocio FELIPE During your visit today, we recorded the following information about you: Temperature Pulse Blood pressure Weight 97 degrees 63/minute 103/73 80.7 kg Height 1.54 m Reuben Agrawal, PRESLEYC 01/27/2025 8:36 PM Signed Subjective Brianna Byers is a 39 year old female. HPI Patient here for an ER follow up. Memory: noted for years but worse the past few months. Forgets conversations that happened even yesterday. If not written down, forgets about it. Known ADD. Admits depression has been uncontrolled. Followed by psychiatry - seen last week and had medication change - seen monthly. She hasn't mentioned her memory concern to her psychiatrist. N/V/Epigastric pain: She recently was seen at the [facility] for N/V/Epigastric pain then went for evaluation at [facility] ER for same symptoms. At [facility], she was admitted and had CT and EGD (per pt report). She reports she was told the EGD was normal. Pt with hx of gastric ulcer. She smokes marijuana every day - she believes the marijuana helps her nausea. Hx of IBS. She is compliant with her PPI. She does find the phenergan helps. Never had GES. She reports during recent hospital stay - she was told something was wrong with her liver. Review of Systems All other systems reviewed and are negative. Objective BP 103/73 Pulse 63 Temp 36.1 ?C (97 ?F) (Temporal) Ht 154 cm (5' 0.64 ) Wt 80.7 kg (177 lb 14.6 oz) LMP 07/19/2023 (Exact Date) SpO2 98% BMI 34.02 kg/m? Physical Exam HENT: Head: Normocephalic and atraumatic. Eyes: Extraocular Movements: Extraocular movements intact. Conjunctiva/sclera: Conjunctivae normal. Cardiovascular: Rate and Rhythm: Normal rate and regular rhythm. Heart sounds: No murmur heard. Pulmonary: Effort: Pulmonary effort is normal. Breath sounds: Normal breath sounds. Neurological: Mental Status: She is alert. Mental status is at baseline. Psychiatric: Mood and Affect: Mood normal. Affect is tearful (when discussing her memory). Assessment AND Plan Nausea and vomiting, unspecified vomiting type N/V with epigastric pain which has been recently persistent evaluated at 2 ERs (one with hospitalization) including labs, CT (per pt report) and EGD (per pt report). Will request records from [facility] - I'm able to see the labs but not the radiology/CTs or EGD. Recommend d/c of Marijuana use - concern for Marijuana-induced hyperemesis syndrome. Recommend appt with GI - may want further testing for FUNCTIONAL cause such as gastroparesis. Fatty liver Request records from [facility] particularly imaging. I do see reference to fatty liver in the notes I can see from [facility]. Discussed this can be addressed at appt with GI - may benefit from Fibroscan. Recommend weight loss. Forgetfulness Patient expresses concern for her memory as it relates to recent recall of conversations (such as yesterday). Highly suspect either side effect from medication (on sedating medication) or it relate to her uncontrolled depression or known hx of ADD. Labs ordered to evaluate for other possible causes. Reviewed most recent brain imaging - hold off repeat imaging at this time. Recommend she ensure she speaks with her psychiatrist regarding her concerns. If he/she does not feel it'd relate to what they are managing - consider neuropsych testing. Certainly would benefit from better controlling depression (pt acknowledges uncontrolled) prior to memory testing. ABA Matthews Meredith L, PA-C 01/26/2025 10:20 AM Signed [facility] Many physicians, nurse practitioners and physician assistants General gastroenterology, procedures as well as specialty care including hepatology Phone number: [phone] Address: [address] [place] [address] [place] [address] [email or web address] Soledad Hannah RN 02/05/2025 2:56 PM Signed Progress note printed and faxed to Bre Tineo CNP at [phone] as requested. Transmission received with request for their office to fax our office an updated medication list Allergies As of Date: 01/26/2025 Noted Allergy Reaction CARIPRAZINE 12/29/2021 14 - Other: See Comments 16 - Unknown METOCLOPRAMIDE 08/10/2013 14 - Other: See Comments PENICILLINS 12/18/2018 4 - Hives REGLAN (METOCLOPRAMIDE HCL) 12/30/2009 1 - Mental Status Change Date Reviewed: 01/26/2025 Reviewed by: Nilda Herndon MA - Fully Assessed Reason for Visit: Follow Up [171] Cmt: Was put on a new medication, doesn't remember the name of it, it is for depression Primary Visit Diagnosis:Nausea and vomiting, unspecified vomiting type [R11.2] Other Visit Diagnoses:Fatty liver [K76.0] Forgetfulness [R68.89] Order(s):VITAMIN B12 [SQB12] Order #: [id number] FUTURE METHYLMALONIC ACID [SQMMA] Order #: [id number] FUTURE FOLATE, SERUM [SQSERFOL] Order #: [id number] FUTURE TSH W/REFLEX FT4 [SQTSHRF] Order #: [id number] FUTURE HEMOGLOBIN A1C [EUAJN0G] Order #: [id number] FUTURE CONSULT TO GASTROENTEROLOGY [9010] Order #: [id number]: [id number] FUTURE [] promethazine (PHENERGAN) 12.5 mg tabletTake 1-2 tablets by mouth every 6 hours as needed for nausea/vomiting for up to 7 days.Disp: 40 tabletRfl: 0 Prescriptions as of 02/05/2025 - vit-iron fumarate-fa ( MULTIVITAMINS) 28 mg iron- 800 mcg tab Take 1 tablet by mouth once daily. - pantoprazole DR (PROTONIX) 40 mg tablet Take 40 mg by mouth once daily. - cetirizine (ZYRTEC) 10 mg tablet Take 1 tablet by mouth daily at bedtime. - gabapentin (NEURONTIN) 100 mg capsule Take 2 capsules by mouth two times a day for 90 days. - nitroglycerin sublingual (NITROQUICK) 0.3 mg SL tablet Dissolve 1 tablet under the tongue one time only for 1 dose. To be administered in Radiology for CTA exam - celecoxib (CELEBREX) 200 mg capsule Take 1 capsule by mouth once daily. - tiZANidine (ZANAFLEX) 4 mg tablet Take 1 tablet by mouth daily at bedtime. - REXULTI 3 mg tablet Take 2 mg by mouth once daily. - buPROPion XL (WELLBUTRIN XL) 300 mg 24 hr tablet Take 300 mg by mouth once daily. - cloNIDine HCl (CATAPRES) 0.1 mg tablet Take 0.1 mg by mouth two times a day as needed. For Anxiety - eszopiclone (LUNESTA) 2 mg Take 2 mg by mouth daily at bedtime. - lisdexamfetamine (VYVANSE) 60 mg capsule Take 1 capsule by mouth once daily for 30 days. - ergocalciferol 50,000 unit capsule (VITAMIN D2, DRISDOL) Take 1 capsule by mouth one time a week. - SUMAtriptan (IMITREX) 50 mg tablet Take 1 tablet (50 mg) by mouth as needed for migraine headache (see administration instructions). at onset of headache. May repeat after 2 hours. - propranolol ER (INDERAL LA) 80 mg 24 hr capsule TAKE 1 CAPSULE BY MOUTH EVERY DAY - cyanocobalamin (VITAMIN B-12) 1,000 mcg tab Take 1 tablet by mouth every afternoon. - albuterol HFA (PROVENTIL HFA) 90 mcg/actuation inhaler Inhale 1-2 Puffs as instructed every 4 hours as needed for wheezing/shortness of breath. - guaiFENesin (MUCINEX) 600 mg 12 hr tablet Take 1,200 mg by mouth twice daily as needed for cold/allergy symptoms. - dicyclomine (BENTYL) 10 mg capsule Take 10 mg by mouth as needed. Problem List As Of Date 01/26/2025 Noted Resolved Migraine [346] 01/25/2003 04/09/2023 Migraines [...] 04/09/2023 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] 04/09/2023 ANA (generalized anxiety disorder) [F41.1] 04/09/2023 MDD (major depressive disorder), recurrent epis*04/09/2023 History of tobacco use [Z87.891] 08/03/2023 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*08/24/2023 Status post cervical spinal arthrodesis [Z98.1] 08/24/2023 S/P cervical spinal fusion [Z98.1] 08/24/2023 Vitamin D deficiency [E55.9] 10/05/2024 Upper back pain [M54.9] 10/05/2024 Mixed hyperlipidemia [E78.2] 12/12/2024 Other instructions from your clinician: [facility] Many physicians, nurse practitioners and physician assistants General gastroenterology, procedures as well as specialty care including hepatology Phone number: [phone] Address: [address] [place] [address] [email or web address] Prescriptions ordered this encounter Disp Refills Start End PROMETHAZINE 12.5 MG TABLET 40 t* 0 01/26/2025 02/02/2025 Route: PO Sig: Take 1-2 tablets by mouth every 6 hours as needed for nausea/vomiting for up to 7 days. Medications Discontinued During This Encounter Prescriptions - ondansetron orally disintegrating (ZOFRAN ODT) 4 mg disintegrating tablet (Discontinued) Take 4 mg by mouth every 8 hours as needed. - OLANZapine (ZYPREXA) 15 mg tablet (Discontinued) Reported on 01/26/2025 Level of Service: OFFICE/OUTPATIENT ESTABLISHED MOD MDM 30 MIN [11870] Additional E/M codes: VISIT CPLX INHERENT EANDM ASSOC WITH MED * Follow-up and Disposition History for Encounter Date Provider Department Center 01/26/2025 [id number]-PNAKZALREUBEN AGRAWAL*[facility] Encounter Status:Closed by REUBEN AGRAWAL on 01/27/25 CNPN Observed: 01/26/2025 12:00 AM Status: COMPLETED Source: [facility] Telephone (INLocalCustomer) ANABRIANNA GONZALES ([id number]) 1985 F Date Time Provider Department 01/26[facility] During your visit today, we recorded the following information about you: Reuben Agrawal PA-C 01/26/2025 1:01 PM Signed Please request records from [facility] regarding recent hospital stay (01/2025). I can see in careeverywhere some information including labs - but I can't see her CT report(s) or EGD report(s) which I need. ABA Matthews Alexandra, MA 01/26/2025 3:13 PM Signed Requested. Godfrey Martin MA January 26, 2025 3:13 PM Sabrina Koo MA 01/31/2025 4:37 PM Signed Received and scanned into chart. Scan on 01/30/2025 11:32 AM by Provider, ABA Soto: Consultation - Emergency Medicine Reuben Agrawal PA-C 01/31/2025 7:18 PM Signed EGD reviewed - nml esophagus but pylorus lumen slightly smaller in size likely from previous scarring related to ulcer in 2021 - may or may not be significant (possible mild gastric outlet obstruction syndrome. Will update pt and encouraged to see GI Reuben Agrawal PA-C Allergies As of Date: 01/26/2025 Noted Allergy Reaction CARIPRAZINE 12/29/2021 14 - Other: See Comments 16 - Unknown METOCLOPRAMIDE 08/10/2013 14 - Other: See Comments PENICILLINS 12/18/2018 4 - Hives REGLAN (METOCLOPRAMIDE HCL) 12/30/2009 1 - Mental Status Change Date Reviewed: 01/26/2025 Reviewed by: Nilda Herndon MA - Fully Assessed Reason for Visit: Request Outside Medical Records [3577] Cmt: [facility] Prescriptions as of 02/01/2025 - vit-iron fumarate-fa ( MULTIVITAMINS) 28 mg iron- 800 mcg tab Take 1 tablet by mouth once daily. - pantoprazole DR (PROTONIX) 40 mg tablet Take 40 mg by mouth once daily. - promethazine (PHENERGAN) 12.5 mg tablet Take 1-2 tablets by mouth every 6 hours as needed for nausea/vomiting for up to 7 days. - cetirizine (ZYRTEC) 10 mg tablet Take 1 tablet by mouth daily at bedtime. - gabapentin (NEURONTIN) 100 mg capsule Take 2 capsules by mouth two times a day for 90 days. - nitroglycerin sublingual (NITROQUICK) 0.3 mg SL tablet Dissolve 1 tablet under the tongue one time only for 1 dose. To be administered in Radiology for CTA exam - celecoxib (CELEBREX) 200 mg capsule Take 1 capsule by mouth once daily. - tiZANidine (ZANAFLEX) 4 mg tablet Take 1 tablet by mouth daily at bedtime. - REXULTI 3 mg tablet Take 2 mg by mouth once daily. - buPROPion XL (WELLBUTRIN XL) 300 mg 24 hr tablet Take 300 mg by mouth once daily. - cloNIDine HCl (CATAPRES) 0.1 mg tablet Take 0.1 mg by mouth two times a day as needed. For Anxiety - eszopiclone (LUNESTA) 2 mg Take 2 mg by mouth daily at bedtime. - lisdexamfetamine (VYVANSE) 60 mg capsule Take 1 capsule by mouth once daily for 30 days. - ergocalciferol 50,000 unit capsule (VITAMIN D2, DRISDOL) Take 1 capsule by mouth one time a week. - SUMAtriptan (IMITREX) 50 mg tablet Take 1 tablet (50 mg) by mouth as needed for migraine headache (see administration instructions). at onset of headache. May repeat after 2 hours. - propranolol ER (INDERAL LA) 80 mg 24 hr capsule TAKE 1 CAPSULE BY MOUTH EVERY DAY - cyanocobalamin (VITAMIN B-12) 1,000 mcg tab Take 1 tablet by mouth every afternoon. - albuterol HFA (PROVENTIL HFA) 90 mcg/actuation inhaler Inhale 1-2 Puffs as instructed every 4 hours as needed for wheezing/shortness of breath. - guaiFENesin (MUCINEX) 600 mg 12 hr tablet Take 1,200 mg by mouth twice daily as needed for cold/allergy symptoms. - dicyclomine (BENTYL) 10 mg capsule Take 10 mg by mouth as needed. Problem List As Of Date 01/26/2025 Noted Resolved Migraine [346] 01/25/2003 04/09/2023 Migraines [...] 04/09/2023 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] 04/09/2023 ANA (generalized anxiety disorder) [F41.1] 04/09/2023 MDD (major depressive disorder), recurrent epis*04/09/2023 History of tobacco use [Z87.891] 08/03/2023 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*08/24/2023 Status post cervical spinal arthrodesis [Z98.1] 08/24/2023 S/P cervical spinal fusion [Z98.1] 08/24/2023 Vitamin D deficiency [E55.9] 10/05/2024 Upper back pain [M54.9] 10/05/2024 Mixed hyperlipidemia [E78.2] 12/12/2024 Encounter Status:Closed by GODFREY MARTIN on 01/26/25 ECHO Observed: 01/25/2025 1:40 PM Status: F Source: [facility] Echocardiography Report: Tra nsthoracic Echo [facility] Date of service: 01/25/2025 1:40:41 PM ABDOMINAL MUSCLE NURSE Ordering physician: FRANCHESCA LOW Exam indication: Shortness of Breath Technologist: Tuan Lorenzana Interpreting physician: Franchesca Low MD PATIENT: Name: MS. BRIANNA BYERS : 1985 Age: 39 years Gender: F Primary rhythm: sinus. Secondary rhythm: RBBB. Height: 154.90 cm BSA: 1.92 m Weight: 86.10 kg BMI: 35.9 kg/m Heart rate 68 bpm Blood pressure 100/66 mmHg Technically difficult exam due to body habitus. Color Doppler was utilized to interrogate the cardiac valves assessed and spectral Doppler was utilized to determine the flow velocities and pressure gradients reported in this exam. MEASUREMENTS: Value Indexed Normal Max aortic dimension 2.9 cm Ao < 3.8 Left atrial volume 24 ml (Neri's) 13 ml/m Flavia <= 34 LV ID (diastole) 4.8 cm (2D) 2.48 cm/m LV ID (systole) 3.2 cm (2D) 1.68 cm/m IVS, leaflet tips 1.0 cm (2D) Posterior wall thickness 0.9 cm (2D) Left ventricular mass 164 g (2D) 85 g/m LV stroke volume 25 ml (2D biplane) LV end diastolic volume 45 ml (2D biplane) 23.3 ml/m 29<=EDVi<62 LV end systolic volume 20 ml (2D biplane) 10.5 ml/m Ejection Fraction 55 % (2D biplane) EF > 54 FINDINGS: LEFT VENTRICLE The left ventricle is small. Left ventricular systolic function is normal. Indeterminate left ventricular diastolic function due to inconsistent or technically suboptimal data. Mitral annular lateral E/e': 10.6. Mitral annular septal E/e': 9.0. Wall Motion: All scored segments are normal. RIGHT VENTRICLE The right ventricle is normal in size. Right ventricular systolic function is normal. Tricuspid annular displacement is 1.6 cm. Estimated right ventricular systolic pressure is not reported due to an insufficient tricuspid regurgitation signal. Estimated right atrial pressure is 3 mmHg based on IVC assessment. LEFT ATRIUM The left atrial cavity is normal in size. RIGHT ATRIUM The right atrial cavity is normal in size. Inferior Vena Cava: The inferior vena cava appears normal measuring 1.4 cm. The vessel decreases greater than 50 percent with inspiration. MITRAL VALVE There is trace mitral valve regurgitation. There is no thickening. The pressure half time is 64 msec. The peak mitral E/A ratio is 0.82. The average mitral E/e' ratio is 9.8. The mitral flow deceleration time is 222 msec. TRICUSPID VALVE There is trace tricuspid valve regurgitation. There is no thickening. AORTIC VALVE There is no aortic valve regurgitation. There is no thickening. The peak gradient is 3 mmHg (peak velocity = 79.5 cm/s). PULMONIC VALVE The pulmonic valve was not seen or not interrogated. There is trace pulmonic valve regurgitation. AORTA The visualized aorta is normal in size. Measurements - Mid ascending aorta 2.9 cm. PULMONARY ARTERIES The pulmonary arteries are unseen or not interrogated. INTERATRIAL SEPTUM There is no evidence of intracardiac shunting as detected by Doppler. PERICARDIUM There is an epicardial fat pad. CONCLUSIONS: - Technically difficult exam due to body habitus. - Exam indication: Shortness of Breath - The left ventricle is small. Left ventricular systolic function is normal. EF = 55 5% (2D biplane) - The right ventricle is normal in size. Right ventricular systolic function is normal. Technically limited study. No significant valvular abnormalities. - Exam was compared with the prior echocardiographic exam performed on 06/18/2023. Overall no significant change. * * * Final * * * [employer] [facility] : [id number] CREATININE + EGFR PNL SERPLBLD Collecte d: 01/25/2025 1:07 PM Status: F Source: [facility] Order Comment: Specimen Type : BLOOD SPECIMEN Ordering Facility: [facility] Address: [address] [place], [place] [address] TYPE CODE TESTS RESULT OUT OF RANGE REFERENCE UNITS LAB 2160-0(LOINC) Creat SerPl-mCnc 0.98 High 0.58-0.96 mg/dL LAB 21614-1(LOINC) eGFRcr SerPlBld CKD-EPI 2020 75 >=60 mL/min/1. 73m??? Result Comment: Estimated Gl omerular Filtration Rate (eGFR) is calculated using the 2020 CKD-EPI creatinine equation. This equation utilizes serum creatinine, sex, and age as parameters. The creatinine assay has traceable calibration to isotope dilution-mass spectrometry. Refer to KDIGO guidelines for clinical interpretation. In patients with unstable renal function, e.g. those with acute kidney injury, the eGFR may not accurately reflect actual GFR. Performed By: #### 04687-4, 23359-9 #### [facility] CLIA [id number] [address] [place] [address] #### 18845-6 #### [facility] CLIA [id number] [address] [place], [place] [address] [facility] CLIA [id number] [address] STATES OF [facility] LIPID 1996 PNL SERPL Collected: 025 1:07 PM Status: F Source: [facility] Order Comment: Specimen Type : BLOOD SPECIMEN Ordering Facility: [facility] Address: [address] [place] [address] TYPE CODE TESTS RESULT OUT OF RANGE REFERENCE UNITS LAB 2092-3(LOINC) Cholest SerPl-mCnc 257 High <200 mg/dL Result Comment: <200 mg/dL, Desirable 200-239 mg/dL, Borderline high >239 mg/dL, High LAB 2571-8(LOINC) Trigl SerPl-mCnc 206 High <150 mg/dL Result Comment: <150 mg/dL, Normal 150-199 mg/dL, Borderline high 200-499 mg/dL, High >499 mg/dL, Very high LAB 2085-03(LOINC) HDLc SerPl-mCnc 54 >39 mg/dL Result Comment: 40-59 mg/dL, Acceptable >59 mg/dL, High: Negative risk factor for coronary heart disease <40 mg/dL, Low: Positive risk factor for coronary heart disease LAB 2088-07(LOINC) LDLc SerPl-mCnc 165 High <100 mg/dL Result Comment: <100 mg/dL, Optimal 100-129 mg/dL, Near optimal/above optimal 130-159 mg/dL, Borderline high 160-189 mg/dL, High >189 mg/dL, Very high Secondary prevention optimal LDL Cholesterol levels are recommended to be <70 mg/dL LDL cholesterol is calculated using the Lim-NIH equation. LAB 14961-5(LOINC) NonHDLc SerPl-mCnc 203 High <130 mg/dL Result Comment: <130 mg/dL, Optimal 130-159 mg/dL, Near optimal/above optimal 160-189 mg/dL, Borderline high 190-219 mg/dL, High >219 mg/dL, Very high Secondary prevention optimal non HDL Cholesterol levels are recommended to be <100 mg/dL LAB 55070-2(LOINC) VLDLc SerPl Calc-mCnc 40 High <30 mg/dL LAB 9830-1(LOINC) Cholest/HDLc SerPl 4.76 <5.10 LAB 92999-2(LOINC) LDLc/HDLc SerPl 3.06 High <2.54 Result Comment: Reference: 1. National Cholesterol Education Program ATP III Guideline At-A-Glance Quick Desk Reference: National Heart, Lung, and Blood [place]. National Institutes of Health. 2001: NIH Publication No. 01-3305. 2. An International Atherosclerosis Society position paper: global recommendations for the management of dyslipidemia: executive summary, Atherosclerosis. 2014: 232(2):410-413. LAB FT FASTING TIME 16 hrs Performed By: #### 24312-2, 35213-9 #### [facility] CLIA [id number] [address] [place] [address] [place] #### 46482-4 #### [facility] CLIA [id number] [address] [place], [place] [address] [place] [facility] CLIA [id number] [address] [place] NT-PROBNP SERPL-MCNC Collected: 01/25/2025 1:07 PM S tatus: F Source: [facility] Comment: Specimen Type : BLOOD SPECIMEN Ordering Facility: [facility] Address: [address] [place] [address] TYPE CODE TESTS RESULT OUT OF RANGE REFERENCE UNITS LAB 94988-7(LOINC) NT-proBNP SerPl-mCnc <36 <125 pg/mL Performed By: #### 30955-3, 80136-9 #### [facility] CLIA [id number] [address] [place], [place] [address] [facility] [place] #### 21596-7 #### [facility] CLIA [id number] [address] [place] [address] [place] [facility] CLIA [id number] [address] [place] [address] [facility] 25(OH)D3 SERPL-MCNC Collected: 01/25/2025 1:[address] atus: F Source: [facility] Comment: Specimen Type : BLOOD SPECIMEN Ordering Facility: [facility] Address: [address] [place] [address] TYPE CODE TESTS RESULT OUT OF RANGE REFERENCE UNITS LAB 1988-09(LOINC) 25(OH)D3 SerPl-mCnc 68.4 31.0-80.0 ng/mL Performed By: #### 1988- ## ## [facility] CLIA [id number] [address] [place] [address] [place] HCV AB SER QL Collected: 01/25/2025 1:07 PM Status: F Source: [facility] Comment: Specimen Type : BLOOD SPECIMEN Ordering Facility: [facility] Address: [address] [place] [address] TYPE CODE TESTS RESULT OUT OF RANGE REFERENCE UNITS LAB 96041-2(LOINC) HCV Ab Ser Ql Negative Negative Result Comment: The result s uggests no evidence of infection with Hepatitis C virus. Should recent infection be suspected, repeat testing may be considered 4-6 weeks after this draw. Performed By: #### 90430-3 # ### [facility] CLIA [id number] [address] [place] [address] [place] CNPN Observed: 01/18/2025 12:00 AM Status: COMPLETED Source: [facility] Telephone (CARDLO) BRIANNA BYERS ([id number]) 1985 F Date Time Provider Department 01/18/25 FRANCHESCA LOW During your visit today, we recorded the following information about you: Nury Ya 01/18/2025 12:01 PM Signed Brianna is calling Franchesca Low MD today because her CT scan was denied by her insurance Please advise Patient has been identified by name and birthdate. Duration of symptoms: N/A Person calling: self Call patient at: at home [phone] (home) [phone] (cell) Was an appointment scheduled: No Closing statement: Prior Authorization Calls: Thank you for calling [facility], your call will be returned within the next 24 hours or next business day. Zenaida Haynes, RN 01/18/2025 2:18 PM Signed Please discuss with patient about calcium score instead, and options to do at [facility] with copay $99 vs . Order placed in chart. MD Zahira Ray Kirk D, RN 01/18/2025 2:43 PM Signed Spoke to pt on phone, below information given per Dr Low Please discuss with patient about calcium score instead, and options to do at [facility] with copay $99 vs . Order placed in chart. Pt prefers to have done at , pt supplied fax number of [phone] Order faxed as requested Above number provided is not a fax # Called and faxed to [phone] Confirmed fax was received Allergies As of Date: 01/18/2025 Noted Allergy Reaction CARIPRAZINE 12/29/2021 14 - Other: See Comments 16 - Unknown METOCLOPRAMIDE 08/10/2013 14 - Other: See Comments PENICILLINS 12/18/2018 4 - Hives REGLAN (METOCLOPRAMIDE HCL) 12/30/2009 1 - Mental Status Change Date Reviewed: 12/12/2024 Reviewed by: Franchesca Low MD - Fully Assessed Reason for Visit: Insurance Authorization [[id number]] Primary Visit Diagnosis:Encounter for screening for cardiovascular disorders [Z13.6] Other Visit Diagnoses:Mixed hyperlipidemia [E78.2] Palpitations [R00.2] Order(s):CT CALCIUM SCORING SELF PAY [9262040] Order #: [id number] FUTURE Prescriptions as of 01/18/2025 - cetirizine (ZYRTEC) 10 mg tablet Take 1 tablet by mouth daily at bedtime. - nitroglycerin sublingual (NITROQUICK) 0.3 mg SL tablet Dissolve 1 tablet under the tongue one time only for 1 dose. To be administered in Radiology for CTA exam - gabapentin (NEURONTIN) 100 mg capsule Take 2 capsules by mouth two times a day for 90 days. - celecoxib (CELEBREX) 200 mg capsule Take 1 capsule by mouth once daily. - tiZANidine (ZANAFLEX) 4 mg tablet Take 1 tablet by mouth daily at bedtime. - REXULTI 3 mg tablet Take 2 mg by mouth once daily. - buPROPion XL (WELLBUTRIN XL) 300 mg 24 hr tablet Take 300 mg by mouth once daily. - cloNIDine HCl (CATAPRES) 0.1 mg tablet Take 0.1 mg by mouth two times a day as needed. For Anxiety - eszopiclone (LUNESTA) 2 mg Take 2 mg by mouth daily at bedtime. - OLANZapine (ZYPREXA) 15 mg tablet Take 15 mg by mouth once daily. - lisdexamfetamine (VYVANSE) 60 mg capsule Take 1 capsule by mouth once daily for 30 days. - ergocalciferol 50,000 unit capsule (VITAMIN D2, DRISDOL) Take 1 capsule by mouth one time a week. - SUMAtriptan (IMITREX) 50 mg tablet Take 1 tablet (50 mg) by mouth as needed for migraine headache (see administration instructions). at onset of headache. May repeat after 2 hours. - propranolol ER (INDERAL LA) 80 mg 24 hr capsule TAKE 1 CAPSULE BY MOUTH EVERY DAY - cyanocobalamin (VITAMIN B-12) 1,000 mcg tab Take 1 tablet by mouth every afternoon. - BLISOVI 24 FE 1 mg-20 mcg (24)/75 mg (4) Take 1 tablet by mouth every afternoon. - albuterol HFA (PROVENTIL HFA) 90 mcg/actuation inhaler Inhale 1-2 Puffs as instructed every 4 hours as needed for wheezing/shortness of breath. - guaiFENesin (MUCINEX) 600 mg 12 hr tablet Take 1,200 mg by mouth twice daily as needed for cold/allergy symptoms. - dicyclomine (BENTYL) 10 mg capsule Take 10 mg by mouth as needed. Problem List As Of Date 01/18/2025 Noted Resolved Migraine [346] 01/25/2003 04/09/2023 Migraines [...] 04/09/2023 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] 04/09/2023 ANA (generalized anxiety disorder) [F41.1] 04/09/2023 MDD (major depressive disorder), recurrent epis*04/09/2023 History of tobacco use [Z87.891] 08/03/2023 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*08/24/2023 Status post cervical spinal arthrodesis [Z98.1] 08/24/2023 S/P cervical spinal fusion [Z98.1] 08/24/2023 Vitamin D deficiency [E55.9] 10/05/2024 Upper back pain [M54.9] 10/05/2024 Mixed hyperlipidemia [E78.2] 12/12/2024 Encounter Status:Closed by FRANCHESCA LOW on 01/18/25 [employer] EDUCATION VIDEO Observed: 2024 1:30 PM Status: F Source: [facility] GetWell Understands Educatio n Yes GetWell Education Video After a Hospital Stay: Managing Appointments GetWell Learning Participants Patient GETWELL EDUCATION VIDEO Observed: 2024 1:26 PM Status: F Source: [facility] GetWell Learning Participant s Patient GetWell Education Video Avoiding Infections in the Hospital GetWell Understands Education Yes DISCHARGE NOTE-NURSING Observed: 025 1:22 PM Status: F Source: [facility] Discharge Note-Nursing BRIANNA BYERS :1985 Visit Date:01/02/2025 Inpatient Discharge Instructions Your Care Team Admitting Physician - Saundra Blanc MD Reason for Your Visit Nausea and vomiting over a week, on and off. Your Diagnosis Intractable nausea and vomiting Leukocytosis Dehydration Marijuana use Mixed bipolar affective disorder, mild History of gastric ulcer Abdominal pain Nausea Vomiting Tests Performed CT Abdomen/Pelvis w/ Contrast This Is Your Medications List brexpiprazole (Rexulti 3 mg oral tablet) buPROPion (buPROPion 300 mg/24 hours ER Tab) celecoxib (celecoxib 200 mg Cap) clonidine (cloNIDine 0.1 mg tab) cyanocobalamin (Vitamin B12 1000 mcg Tab) dicyclomine (Bentyl 10 mg Cap) folic acid (folic acid 1 mg Tab) gabapentin (gabapentin 100 mg Cap) lisdexamfetamine (Vyvanse 20 mg oral capsule) melatonin (melatonin 3 mg Tab) metoprolol (Metoprolol tartrate 25 mg Tab) ondansetron (Zofran ODT 4 mg Tab-Dis) ondansetron (ondansetron 4 mg Dis Tab) pantoprazole (Protonix 40 mg Tab-DR) sumatriptan (Imitrex 100 mg Tab) tizanidine (tiZANidine 4 mg Tab) [Image Removed: STOP]Stop taking these medications busPIRone promethazine (Phenergan 25 mg Supp) promethazine (promethazine 25 mg Tab) Procedure History Esophagogastroduodenoscopy (01/03/2025), Colonoscopy (08/25/2022), Esophagogastroduodenoscopy (02/09/2022), EGD - Esophagogastroduodenoscopy (10/09/2021), Tear of anterior cruciate ligament of left knee (2001). Discharge Vitals Temperature (Oral) 36.5 ???C Heart Rate (Monitored) 88 Respiratory Rate 16 Blood Pressure 115/81 Weight 90.0 kg What to do next Instructions From Your Doctor Event Name Event Result Pending Diagnostic Test Results None Discharge Instructions Please return to ER if symptoms change or worsen. Please follow-up with GI as instructed. New Follow Up Appointments after Discharge Follow Up with Patient preferrs to make own hospital follow up appointment(s). When: Follow Up with Bereket JUAREZ, BRITTNI Beckham, MED When: Within 2 to 4 weeks Comments: Call for followup appointment for outpatient gastric emptying study Where: [facility] [address], [address] [place] [address] [phone] Follow Up with GINNY PATEL When: Where: [address] [facility] [address], [place] [address] [phone] Business (1) Medications What How Much When Instructions Next Dose Changed ondansetron (Zofran ODT 4 mg Tab-Dis) 1 Tablets By Mouth Every 8 hours as needed for Nausea/Vomiting Pickup at [id number] As needed, after 8:00 PM Unchanged brexpiprazole (Rexulti 3 mg oral tablet) 1 Tablets By Mouth Every day Resume 01/05/2025 Unchanged buPROPion (buPROPion 300 mg/ 24 hours ER Tab) 1 Tablets By Mouth Every day Resume 01/05/2025 Unchanged celecoxib (celecoxib 200 mg Cap) 1 Capsules By Mouth Every day Resume 01/05/2025 Unchanged clonidine (cloNIDine 0.1 mg tab) See instructions 1 tab(s) SubLingual Resume 01/05/2025 Unchanged cyanocobalamin (Vitamin B12 1000 mcg Tab) 1 Tablets By Mouth Every day Resume 01/05/2025 Unchanged dicyclomine (Bentyl 10 mg Cap) 1 Capsules By Mouth 4 times a day as needed for Other (see comment) For abdominal cramping As needed Unchanged folic acid (folic acid 1 mg Tab) 1 Tablets By Mouth Every day Resume 01/05/2025 Unchanged gabapentin (gabapentin 100 mg Cap) 2 Capsules By Mouth 2 times a day Resume tonight at 9:00 PM Unchanged lisdexamfetamine (Vyvanse 20 mg oral capsule) TAKE 1 CAPSULE BY MOUTH EVERY DAY IN THE MORNING FOR 30 DAYS Resume 01/05/2025 Unchanged melatonin (melatonin 3 mg Tab) 1 Tablets By Mouth At bedtime as needed for Sleep As needed Unchanged metoprolol (Metoprolol tartrate 25 mg Tab) By Mouth 2 times a day Resume tonight at 9:00 PM Unchanged pantoprazole (Protonix 40 mg Tab-DR) 1 Tablets By Mouth Every day 01/05/2025 Unchanged sumatriptan (Imitrex 100 mg Tab) 1 Tablets By Mouth Every day as needed for as needed for migraine headache As needed Unchanged tizanidine (tiZANidine 4 mg Tab) 1 Tablets By Mouth At bedtime Resume tonight at bedtime Pharmacy Information [facility] #[id number]: [address] [place], [place] [phone] What How Much When Comments Stop Taking busPIRone 10 Milligram By Mouth 2 times a day Stop Taking promethazine (Phenergan 25 mg Supp) 1 Suppositories By rectum Every 6 hours as needed for Nausea/Vomiting Stop Taking promethazine (promethazine 25 mg Tab) 1 Tablets By Mouth Every 6 hours as needed for as needed for nausea/vomiting Test Results CBC BMP WBC: 10.4 E9/L (01/03/25 06:42:00) Glucose Lvl: 118 mg/dL (01/03/25 06:42:00) RBC: 4.9 E12/L (01/03/25 06:42:00) BUN: 5 mg/dL (01/03/25 06:42:00) HGB: 15.1 gm/dL (01/03/25 06:42:00) Creatinine: 0.9 mg/dL (01/03/25 06:42:00) Hct: 43.8 % (01/03/25 06:42:00) BUN/Creat Ratio: 6 Low (01/03/25 06:42:00) MCV: 89.7 fL (01/03/25 06:42:00) Sodium Lvl: 138 mmol/L (01/03/25 06:42:00) MCH: 30.9 pg (01/03/25 06:42:00) Potassium Lvl: 4 mmol/L (01/03/25 06:42:00) MCHC: 34.4 gm/dL (01/03/25 06:42:00) Chloride: 105 mmol/L (01/03/25 06:42:00) RDW: 15.2 % High (01/03/25 06:42:00) CO2: 24 mmol/L (01/03/25 06:42:00) Platelet: 351 E9/L (01/03/25 06:42:00) AGAP: 13 mEq/L (01/03/25 06:42:00) MPV: 7.7 fL (01/03/25 06:42:00) Calcium Lvl: 9.2 mg/dL (01/03/25 06:42:00) Allergies Augmentin (UNK) amoxicillin (Unknown) Reglan Vraylar (UNK) iothalamate (Unknown) Problems Ongoing - Any problem that you are currently receiving treatment for. Acid reflux Acute hypokalemia Antral erosion Antral ulcer Anxiety disorder C. difficile colitis Chronic post-traumatic stress disorder (PTSD) Clostridium difficile diarrhea Diarrhea Epigastric pain Family history of colon cancer Hemorrhoids History of stomach ulcers Hx of gastric ulcer Hypomagnesemia Insomnia Intractable nausea and vomiting Leukocytosis LFT elevation Loose stools Marijuana use Mixed bipolar affective disorder, mild Nausea Obesity Smoker Weight loss Historical - Any problem that you are no longer receiving treatment for. Alcohol use during Alcohol use during Education Materials Cannabinoid Hyperemesis Syndrome Cannabinoid hyperemesis syndrome (CHS) is a condition that causes repeated nausea, vomiting, and abdominal pain after long-term use of marijuana (cannabis). People with CHS typically use marijuana 3???5 times a day for many years before they have symptoms, although it is possible to develop CHS with far less daily use. Symptoms of CHS may be mild at first but can get worse and more frequent. In some cases, CHS may cause severe daily vomiting, which can lead to weight loss and dehydration. What are the causes? The exact cause of CHS is not known. Long-term use of marijuana may overstimulate certain proteins in the brain and digestive tract that react with chemicals in marijuana (cannabinoid receptors). This overstimulation may cause CHS. What are the signs or symptoms? Symptoms of CHS are often mild during the first few episodes, but they can get worse over time. Symptoms may include: ??? Frequent nausea, especially early in the morning. ??? Vomiting. This can become severe. ??? Abdominal pain. ??? Feeling very tired (lethargic). ??? Headaches. CHS may go away and come back many times (recur). People may not have symptoms or may otherwise be healthy in between CHS episodes. Taking hot showers can relieve the symptoms of CHS, so feeling the need to take several hot showers throughout the day can be a sign of this condition. How is this diagnosed? CHS may be diagnosed based on: ??? Your symptoms and medical history, including any drug use. ??? A physical exam. You may have tests done to rule out other problems that could cause your symptoms. These tests may include: ??? Blood tests. ??? Urine tests. ??? Imaging tests, such as an X-ray or a CT scan. How is this treated? Treatment for this condition involves stopping marijuana use. Treatment may include: ??? A drug rehab program, if you have trouble stopping marijuana use. ??? Medicines for nausea. These may be given at the hospital through an IV inserted into one of your veins, or they may be medicines that you take by mouth (orally). ??? Certain creams that contain a substance called capsaicin. These may improve symptoms when applied to the abdomen. ??? Hot showers to help relieve symptoms. In severe cases, you may need treatment at a hospital. You may be given IV fluids to prevent or treat dehydration as well as medicines to treat nausea, vomiting, and pain. Follow these instructions at home: During an episode of CHS ??? Stay in bed and rest in a dark, quiet room. ??? Take anti-nausea medicine as told by your health care provider. ??? Try taking hot showers to relieve your symptoms. After an episode of CHS ??? Drink small amounts of clear fluids. Slowly add more if you can keep the fluids down without vomiting. ??? Once you are able to eat without vomiting, eat soft foods in small amounts every 3???4 hours. General instructions ??? Do not use any products that contain marijuana.If you need help quitting, ask your health care provider for resources and treatment options. ??? Drink enough fluid to keep your urine pale yellow. Avoid drinking fluids that have a lot of sugar or caffeine, such as coffee and soda. ??? Take and apply ylyf-kuu-bailjjs and prescription medicines only as told by your health care provider. Ask your health care provider before starting any new medicines or treatments. ??? Keep all follow-up visits. This includes any recommended programs for substance use disorders. Contact a health care provider if: ??? Your symptoms get worse. ??? You cannot drink fluids without vomiting or severe pain. ??? You have pain and trouble swallowing after an episode. Get help right away if: ??? You cannot stop vomiting. ??? You have blood in your vomit or your vomit looks like coffee grounds. ??? You have severe abdominal pain. ??? You have stools that are bloody or black, or stools that look like tar. ??? You have symptoms of dehydration, such as: ? Sunken eyes. ? Inability to make tears. ? Cracked lips or dry mouth. ? Decreased urine production. ? Weakness. ? Sleepiness. ? Dizziness, light-headedness, or fainting. These symptoms may be an emergency. Get help right away. Call 911. ??? Do not wait to see if the symptoms will go away. ??? Do not drive yourself to the hospital. Summary ??? Cannabinoid hyperemesis syndrome (CHS) is a condition that causes repeated nausea, vomiting, and abdominal pain after long-term use of marijuana. ??? Treatment for this condition involves stopping marijuana use. Hot showers and capsaicin creams may also help relieve symptoms. ??? Your health care provider may prescribe medicines to help with nausea. ??? Ask your health care provider before starting any medicines or other treatments. This information is not intended to replace advice given to you by your health care provider. Make sure you discuss any questions you have with your health care provider. Document Revised: 10/19/2022 Document Reviewed: 10/19/2022 [employer] Patient Education ??? 2023 [employer] Common Emergency Awareness Tips IS IT A STROKE? Act FAST and Check for these signs: FACE Does the face look uneven? ARM Does one arm drift down? SPEECH Does their speech sound strange? TIME Call at any sign of stroke Heart Attack Signs Chest discomfort: Most heart attacks involve discomfort in the center of the chest and lasts more than a few minutes, or goes away and comes back. It can feel like uncomfortable pressure, squeezing, fullness or pain. Discomfort in upper body: Symptoms can include pain or discomfort in one or both arms, back, neck, jaw or stomach. Shortness of breath: With or without discomfort. Other signs: Breaking out in a cold sweat, nausea, or lightheaded. Remember, MINUTES DO MATTER. If you experience any of these heart attack warning signs, call to get immediate medical attention! Patient Survey You may receive a survey in the mail asking you about your stay with us. We want to hear from you, please share your experience with us by completing your survey. Thank you for choosing [facility]. Lizbeth Award Nomination The LIZBETH (Diseases Attacking the Immune SYstem) Award is an international recognition program that honors and celebrates the skillful, compassionate care nurses provide every day. Anyone who experiences or observes amazing care being provided by a nurse is encouraged to submit a nomination. To nominate your nurse, use your smart phone to scan the QR code below. Patient Portal You may access all of your results and other medical record information on our secure patient portal. If you are not signed up for this yet, please contact [employer] at [phone] to get signed up today. Language Information Language assistance services are available as needed. Patient Name: BRIANNA BYERS Rocio I have received these discharge instructions and my questions have been answered. Patient/Soda Room Operator Name: Patient/Soda Room Operator Signature: Relationship to Patient: Witness Name/Signature: Date: INPATIENT PATIENT SUMMARY Observed: 09/2024 1:05 PM Status: C Source: [facility] Inpatient Patient Summary [place] [id number] Patient Discharge Instructions PERSON INFORMATION Name: BRIANNA BYERS Date of : 1985 Current Date: 01/04/2025 13:05:51 PHYSICIANS Admitting Physician: Saundra Blanc MD Primary Care Physician: GINNY PATEL CNP PCP Phone Number: [phone] Comment: Discharge Diagnosis: 1:Intractable nausea and vomiting; 2:Leukocytosis; 3:Dehydration; 4:Marijuana use; 5:Mixed bipolar affective disorder, mild; 6:History of gastric ulcer Condition at Discharge: Improved BRIANNA BYERS has been given the following list of follow-up instructions, prescriptions, and patient education materials: PATIENT FOLLOW-UP INFORMATION Diet: Discharge Activity: Discharge Restrictions: Wound Care Instructions: Remove Your Dressing In Days Call Your Doctor For: IF UNABLE TO CONTACT YOUR PHYSICIAN AND YOU FEEL IT IS AN EMERGENCY, GO TO THE NEAREST EMERGENCY ROOM OR CALL 911 Home Treatment: Devices/Equipment: None Special Services: Additional Instructions: Please return to ER if symptoms change or worsen. Please follow-up with GI as instructed. Primary Care Physician to provide the following pending test results: None Follow up: With: Address: When: Patient preferrs to make own hospital follow up appointment(s). With: Address: When: Bereket JUAREZ, BRITTNI Beckham, [address], [address] [place] [address] [phone] Within 2 to 4 weeks Comments: Call for followup appointment for outpatient gastric emptying study With: Address: When: GINNY PATEL [address] [place] [address] [phone] Business (1) In the event that this physician does not participate in your insurance network, please consult with your insurance company to find a nearby participating provider. Comment: IJAMA AMANDA L, have received the attached patient education materials/instructions and have verbalized understanding: Patient Signature Date Clinican/Nurse Signature Date HERE ARE THE MEDICATION CHANGES THAT OCCURRED DURING YOUR HOSPITAL STAY Medications to Continue Taking That Have Changed [id number], [address] [place] [phone], [phone] START: ondansetron (Zofran ODT 4 mg Tab-Dis) 1 Tablets By Mouth every 8 hours as needed Nausea/Vomiting. Refills: 0. Last Dose: Next Dose: Other Medications START: ondansetron (ondansetron 4 mg Dis Tab) 1 Tablets By Mouth every 6 hours as needed Nausea/Vomiting. Last Dose: Next Dose: Medications to Continue with No Changes Other Medications brexpiprazole (Rexulti 3 mg oral tablet) 1 Tablets By Mouth every day. Last Dose: Next Dose: buPROPion (buPROPion 300 mg/24 hours ER Tab) 1 Tablets By Mouth every day. Last Dose: Next Dose: celecoxib (celecoxib 200 mg Cap) 1 Capsules By Mouth every day. Last Dose: Next Dose: clonidine (cloNIDine 0.1 mg tab) 1 tab(s) SubLingual. Last Dose: Next Dose: cyanocobalamin (Vitamin B12 1000 mcg Tab) 1 Tablets By Mouth every day. Refills: 0. Last Dose: Next Dose: dicyclomine (Bentyl 10 mg Cap) 1 Capsules By Mouth 4 times a day as needed Other (see comment). For abdominal cramping. Refills: 0. Last Dose: Next Dose: folic acid (folic acid 1 mg Tab) 1 Tablets By Mouth every day. Refills: 0. Last Dose: Next Dose: gabapentin (gabapentin 100 mg Cap) 2 Capsules By Mouth 2 times a day. Last Dose: Next Dose: lisdexamfetamine (Vyvanse 20 mg oral capsule) TAKE 1 CAPSULE BY MOUTH EVERY DAY IN THE MORNING FOR 30 DAYS. Last Dose: Next Dose: melatonin (melatonin 3 mg Tab) 1 Tablets By Mouth at bedtime as needed Sleep. Refills: 0. Last Dose: Next Dose: metoprolol (Metoprolol tartrate 25 mg Tab) By Mouth 2 times a day. Last Dose: Next Dose: pantoprazole (Protonix 40 mg Tab-DR) 1 Tablets By Mouth every day. Refills: 0. Last Dose: Next Dose: sumatriptan (Imitrex 100 mg Tab) 1 Tablets By Mouth every day as needed as needed for migraine headache. Last Dose: Next Dose: tizanidine (tiZANidine 4 mg Tab) 1 Tablets By Mouth at bedtime. Last Dose: Next Dose: No Longer Take the Following Medications busPIRone 10 Milligram By Mouth 2 times a day. promethazine (Phenergan 25 mg Supp) 1 Suppositories By rectum every 6 hours as needed Nausea/Vomiting. Refills: 0. promethazine (promethazine 25 mg Tab) 1 Tablets By Mouth every 6 hours as needed as needed for nausea/vomiting. Refills: 0. Comment: MEDICATION LIST PROVIDED FOR YOU IS A LIST OF YOUR CURRENT MEDICATIONS. PLEASE CARRY THIS WITH YOU AT ALL TIMES. brexpiprazole (Rexulti 3 mg oral tablet) 1 Tablets By Mouth every day. buPROPion (buPROPion 300 mg/24 hours ER Tab) 1 Tablets By Mouth every day. celecoxib (celecoxib 200 mg Cap) 1 Capsules By Mouth every day. clonidine (cloNIDine 0.1 mg tab) 1 tab(s) SubLingual. cyanocobalamin (Vitamin B12 1000 mcg Tab) 1 Tablets By Mouth every day. Refills: 0. dicyclomine (Bentyl 10 mg Cap) 1 Capsules By Mouth 4 times a day as needed Other (see comment). For abdominal cramping. Refills: 0. folic acid (folic acid 1 mg Tab) 1 Tablets By Mouth every day. Refills: 0. gabapentin (gabapentin 100 mg Cap) 2 Capsules By Mouth 2 times a day. lisdexamfetamine (Vyvanse 20 mg oral capsule) TAKE 1 CAPSULE BY MOUTH EVERY DAY IN THE MORNING FOR 30 DAYS. melatonin (melatonin 3 mg Tab) 1 Tablets By Mouth at bedtime as needed Sleep. Refills: 0. metoprolol (Metoprolol tartrate 25 mg Tab) By Mouth 2 times a day. ondansetron (ondansetron 4 mg Dis Tab) 1 Tablets By Mouth every 6 hours as needed Nausea/Vomiting. ondansetron (Zofran ODT 4 mg Tab-Dis) 1 Tablets By Mouth every 8 hours as needed Nausea/Vomiting. Refills: 0. pantoprazole (Protonix 40 mg Tab-DR) 1 Tablets By Mouth every day. Refills: 0. sumatriptan (Imitrex 100 mg Tab) 1 Tablets By Mouth every day as needed as needed for migraine headache. tizanidine (tiZANidine 4 mg Tab) 1 Tablets By Mouth at bedtime. Pharmacy Information: [facility] Comment: PATIENT EDUCATION INFORMATION Instructions: Cannabinoid Hyperemesis Syndrome Cannabinoid hyperemesis syndrome (CHS) is a condition that causes repeated nausea, vomiting, and abdominal pain after long-term use of marijuana (cannabis). People with CHS typically use marijuana 3?5 times a day for many years before they have symptoms, although it is possible to develop CHS with far less daily use. Symptoms of CHS may be mild at first but can get worse and more frequent. In some cases, CHS may cause severe daily vomiting, which can lead to weight loss and dehydration. What are the causes? The exact cause of CHS is not known. Long-term use of marijuana may overstimulate certain proteins in the brain and digestive tract that react with chemicals in marijuana (cannabinoid receptors). This overstimulation may cause CHS. What are the signs or symptoms? Symptoms of CHS are often mild during the first few episodes, but they can get worse over time. Symptoms may include: ??? Frequent nausea, especially early in the morning. ??? Vomiting. This can become severe. ??? Abdominal pain. ??? Feeling very tired (lethargic). ??? Headaches. CHS may go away and come back many times (recur). People may not have symptoms or may otherwise be healthy in between CHS episodes. Taking hot showers can relieve the symptoms of CHS, so feeling the need to take several hot showers throughout the day can be a sign of this condition. How is this diagnosed? CHS may be diagnosed based on: ??? Your symptoms and medical history, including any drug use. ??? A physical exam. You may have tests done to rule out other problems that could cause your symptoms. These tests may include: ??? Blood tests. ??? Urine tests. ??? Imaging tests, such as an X-ray or a CT scan. How is this treated? Treatment for this condition involves stopping marijuana use. Treatment may include: ??? A drug rehab program, if you have trouble stopping marijuana use. ??? Medicines for nausea. These may be given at the hospital through an IV inserted into one of your veins, or they may be medicines that you take by mouth (orally). ??? Certain creams that contain a substance called capsaicin. These may improve symptoms when applied to the abdomen. ??? Hot showers to help relieve symptoms. In severe cases, you may need treatment at a hospital. You may be given IV fluids to prevent or treat dehydration as well as medicines to treat nausea, vomiting, and pain. Follow these instructions at home: During an episode of CHS ??? Stay in bed and rest in a dark, quiet room. ??? Take anti-nausea medicine as told by your health care provider. ??? Try taking hot showers to relieve your symptoms. After an episode of CHS ??? Drink small amounts of clear fluids. Slowly add more if you can keep the fluids down without vomiting. ??? Once you are able to eat without vomiting, eat soft foods in small amounts every 3?4 hours. General instructions ??? Do not use any products that contain marijuana.If you need help quitting, ask your health care provider for resources and treatment options. ??? Drink enough fluid to keep your urine pale yellow. Avoid drinking fluids that have a lot of sugar or caffeine, such as coffee and soda. ??? Take and apply cuin-bcs-hylhpxw and prescription medicines only as told by your health care provider. Ask your health care provider before starting any new medicines or treatments. ??? Keep all follow-up visits. This includes any recommended programs for substance use disorders. Contact a health care provider if: ??? Your symptoms get worse. ??? You cannot drink fluids without vomiting or severe pain. ??? You have pain and trouble swallowing after an episode. Get help right away if: ??? You cannot stop vomiting. ??? You have blood in your vomit or your vomit looks like coffee grounds. ??? You have severe abdominal pain. ??? You have stools that are bloody or black, or stools that look like tar. ??? You have symptoms of dehydration, such as: ? Sunken eyes. ? Inability to make tears. ? Cracked lips or dry mouth. ? Decreased urine production. ? Weakness. ? Sleepiness. ? Dizziness, light-headedness, or fainting. These symptoms may be an emergency. Get help right away. Call 911. ??? Do not wait to see if the symptoms will go away. ??? Do not drive yourself to the hospital. Summary ??? Cannabinoid hyperemesis syndrome (CHS) is a condition that causes repeated nausea, vomiting, and abdominal pain after long-term use of marijuana. ??? Treatment for this condition involves stopping marijuana use. Hot showers and capsaicin creams may also help relieve symptoms. ??? Your health care provider may prescribe medicines to help with nausea. ??? Ask your health care provider before starting any medicines or other treatments. This information is not intended to replace advice given to you by your health care provider. Make sure you discuss any questions you have with your health care provider. Document Revised: 10/19/2022 Document Reviewed: 10/19/2022 [employer] Patient Education ? 2023 [employer] Medication Leaflets: You may receive a survey from [employer] asking you to rate your care experience. Your feedback is important and will help us understand what we do well and how we can improve the quality of care we provide to you, your loved ones and our community. It???s an honor to serve you. Thank you for choosing [facility] INPATIENT CLINICAL SUMMARY Observed: 09/2024 1:05 PM Status: C Source: [facility] Inpatient Clinical Summary [address] [id number] Clinical Summary Person Information: Name: BRIANNA BYERS Age: 39 Years : 1985 Sex: Female PCP: GINNY PATEL CNP Marital Status: Single Race: White Ethnicity: Non- or Language: Somali Visit Id: Visit Reason: Vomiting; Nausea; Abdominal pain; PER PATIENT, ANOTHER STOMACH ULCER, N/V, ABD PAIN, SWEATING Speciality: Acuity: Enc Type: Observation Med Service: Medical Arrival: 01/02/2025 21:13:34 Discharge: Dispo Type: Admitted as IP to this [facility] Address: [address] [place] [address] [address] [place] [id number] Provider Notes: Diagnosis: 1:Intractable nausea and vomiting; 2:Leukocytosis; 3:Dehydration; 4:Marijuana use; 5:Mixed bipolar affective disorder, mild; 6:History of gastric ulcer Problems Active Intractable nausea and vomiting Loose stools Hemorrhoids Antral erosion Hx of gastric ulcer Diarrhea Epigastric pain LFT elevation Antral ulcer Acid reflux History of stomach ulcers Nausea Family history of colon cancer Weight loss Insomnia C. difficile colitis Clostridium difficile diarrhea Hypomagnesemia Obesity Leukocytosis Acute hypokalemia Marijuana use Smoker Chronic post-traumatic stress disorder (PTSD) Mixed bipolar affective disorder, mild Anxiety disorder Smoking Status: Never Smoker Functional Status: Sensory Deficits: History of Falls: Mobility Assistance Prior to Admission: Independent ADLs: Independent Current Level of Assistance for Self-Care/Mobility: Cognitive Status: Oriented x 3 Allergies Reglan Vraylar (UNK) Augmentin (UNK) amoxicillin (Unknown) iothalamate (Unknown) Measurements: Height: 152.4 cm Weight: 90.0 kg Blood Pressure: 115 mmHg / 81 mmHg BMI: 35.35 kg/m2 Procedures Esophagogastroduodenoscopy (01/03/2025) Immunizations No Immunizations Documented This Visit Final Med List: brexpiprazole (Rexulti 3 mg oral tablet) 1 Tablets By Mouth every day. buPROPion (buPROPion 300 mg/24 hours ER Tab) 1 Tablets By Mouth every day. celecoxib (celecoxib 200 mg Cap) 1 Capsules By Mouth every day. clonidine (cloNIDine 0.1 mg tab) 1 tab(s) SubLingual. cyanocobalamin (Vitamin B12 1000 mcg Tab) 1 Tablets By Mouth every day. Refills: 0. dicyclomine (Bentyl 10 mg Cap) 1 Capsules By Mouth 4 times a day as needed Other (see comment). For abdominal cramping. Refills: 0. folic acid (folic acid 1 mg Tab) 1 Tablets By Mouth every day. Refills: 0. gabapentin (gabapentin 100 mg Cap) 2 Capsules By Mouth 2 times a day. lisdexamfetamine (Vyvanse 20 mg oral capsule) TAKE 1 CAPSULE BY MOUTH EVERY DAY IN THE MORNING FOR 30 DAYS. melatonin (melatonin 3 mg Tab) 1 Tablets By Mouth at bedtime as needed Sleep. Refills: 0. metoprolol (Metoprolol tartrate 25 mg Tab) By Mouth 2 times a day. ondansetron (ondansetron 4 mg Dis Tab) 1 Tablets By Mouth every 6 hours as needed Nausea/Vomiting. ondansetron (Zofran ODT 4 mg Tab-Dis) 1 Tablets By Mouth every 8 hours as needed Nausea/Vomiting. Refills: 0. pantoprazole (Protonix 40 mg Tab-DR) 1 Tablets By Mouth every day. Refills: 0. sumatriptan (Imitrex 100 mg Tab) 1 Tablets By Mouth every day as needed as needed for migraine headache. tizanidine (tiZANidine 4 mg Tab) 1 Tablets By Mouth at bedtime. Care Team Members: Attending Physician: Saundra Blanc MD Consulting Physician: Referring Physician: Follow up: With: Address: When: Patient preferrs to make own hospital follow up appointment(s). With: Address: When: Bereket JUAREZ, Kylee Roblero [facility], [address] [place] [phone] Within 2 to 4 weeks Comments: Call for followup appointment for outpatient gastric emptying study With: Address: When: GINNY PATEL [address] [facility] [place] [phone] Business (1) Patient Education Information: Cannabinoid Hyperemesis Syndrome DISCHARGE SUMMARY Observed: 01/04/2025 12:36 PM Status: F Source: [facility] Discharge Summary Admission and Discharge Information Admitting Physician - Saundra Blanc MD Admitting Diagnoses: Discharge Order Date Discharge Patient - Ordered -- 01/04/25 12:36:00 EDT Discharge Diagnoses 1. Intractable nausea and vomiting, 01/03/2025 2. Leukocytosis, 01/03/2025 3. Dehydration, 01/03/2025 4. Marijuana use, 01/03/2025 5. Mixed bipolar affective disorder, mild, 01/03/2025 6. History of gastric ulcer, 01/03/2025 Abdominal pain, 01/02/2025 Nausea, 01/02/2025 Vomiting, 01/02/2025 Procedure History Esophagogastroduodenoscopy (01/03/2025), Colonoscopy (08/25/2022), Esophagogastroduodenoscopy (02/09/2022), EGD - Esophagogastroduodenoscopy (10/09/2021), Tear of anterior cruciate ligament of left knee (2001). Hospital Course 39-year-old female with past medical history of gastric ulcers, GERD, bipolar disorder, daily marijuana use, presented to ER on 01/02 due to intractable nausea vomiting with epigastric pain. Patient stated symptoms been going on for over a week. Patient denied any diarrhea fevers chills. Patient was [facility] at [facility] 12/26. At that time patient had CT A/P with no acute process. White blood cell count then 15.7. In ED patient was mildly tachycardic with white count 15.3. Patient's potassium 3.4. Anion gap 19. Patient received multiple doses of antiemetics as well as morphine and Bentyl in the ED but still worsening pain. Patient was admitted for further workup and treatment. GI was consulted follow patient. Patient had EGD 01/03 showed normal esophagus. Otherwise normal. Patient was observed overnight and symptoms improved. Patient did have CT a/PE to rule out any other acute illnesses. CTA was negative. GI recommended patient follow-up with them as outpatient for possible gastric emptying study. Discussed diagnosis and treatment plan with patient who agrees and accept plan of treatment. Patient stable at discharge. Medication changes zofran ODT PRN Follow-up appointments PCP as needed GI within 2 to 4 weeks Discharge time 33 minutes which included extensive conversation with patient about diagnosis and treatment plan. Along with communication with consultants, nursing, case management. Services Consulted Consult to GI - Ordered -- 01/03/25 3:52:00 EDT, Intractable n/v, hx gastric ulcers, Consult and Co- manage Physical Exam Vitals & Measurements T: 36.5 ???C(Oral) TMIN: 36.4 ???C(Temporal Artery) TMAX: 36.8 ???C(Temporal Artery) HR: 88(Monitored) RR: 16 BP: 115/81 SpO2: 99% WT: 90.0 kg General: NAD, exam out of proportion to complaints Skin: Warm, dry Head: No trauma, normocephalic Neck: Trachea midline, supple, negative for JVD Eye: Conjunctive are clear, clear sclera , EOMI ENMT: oral mucosa moist, no lesions or edema nose or external ears Cardiovascular: Regular rate and rhythm, S1-S2 present, negative for murmurs rubs or gallops Respiratory: Lungs clear to auscultation, bilateral symmetric movement, negative for wheezes rales or rhonchi Chest wall: no deformity. Gastrointestinal: Abdomen soft, bowel sounds present, nontender to palpation Back: No tenderness Extremities: Range of motion intact, no edema Neurological: awake, alert, speech normal, cranial nerves II through XII intact, no sensory defects, alert and oriented x3 Psychiatric: cooperative, affect appropriate for age, pleasant Tests Performed CT Abdomen/Pelvis w/ Contrast Discharge Plan Discharge Disposition Discharge To, Anticipated II - Home independently Discharged to - Home independently Transported by, Anticipated - Family Discharge Medication List Prescriptions Bentyl 10 mg Cap, 10 mg= 1 cap(s), Oral, QID, PRN folic acid 1 mg Tab, 1 mg= 1 tab(s), Oral, Daily, Not taking: Not taking melatonin 3 mg Tab, 3 mg= 1 tab(s), Oral, Bedtime, PRN Protonix 40 mg Tab-DR, 40 mg= 1 tab(s), Oral, Daily Vitamin B12 1000 mcg Tab, 1000 mcg= 1 tab(s), Oral, Daily, Still taking, not as prescribed: Once a week, Zofran ODT 4 mg Tab-Dis, 4 mg= 1 tab(s), Oral, q8hr, PRN Home buPROPion 300 mg/24 hours ER Tab, 300 mg= 1 tab(s), Oral, Daily celecoxib 200 mg Cap, 200 mg= 1 cap(s), Oral, Daily cloNIDine 0.1 mg tab, See Instructions gabapentin 100 mg Cap, 200 mg= 2 cap(s), Oral, BID Imitrex 100 mg Tab, 100 mg= 1 tab(s), Oral, Daily, PRN Metoprolol tartrate 25 mg Tab, Oral, BID ondansetron 4 mg Dis Tab, 4 mg= 1 tab(s), Oral, q6hr, PRN Rexulti 3 mg oral tablet, 3 mg= 1 tab(s), Oral, Daily tiZANidine 4 mg Tab, 4 mg= 1 tab(s), Oral, Bedtime Vyvanse 20 mg oral capsule Follow-up With When Contact Information Bereket JUAREZ, Kylee Roblero, GAS, MED Within 2 to 4 weeks [address], [address] [place] [address]- [phone] Additional Instructions: Call for followup appointment for outpatient gastric emptying study GINNY PATEL [address] [place] [address]- [phone] Business (1) Additional Instructions: Patient Education Cannabinoid Hyperemesis Syndrome Result Comment: Electronical ly Signed By: Rafat HERNANDEZ, Aravind J.\.br\Date and Time Signed: 01/04/25 13:[address] ABDOMEN/PELVIS W/ CONTRAST Observed: 01/04/2025 11:36 AM Status: F Source: [facility] Exam Date/Time: 01/04/2025 11:48 EDT Reason for Exam: n/v abd pain;Nausea with vomiting Report IMPRESSION: NO ACUTE FINDINGS. CT OF THE ABDOMEN AND PELVIS WITH INTRAVENOUS CONTRAST MEDIUM. HISTORY: NAUSEA WITH VOMITING, N/V ABD PAIN. EPIGASTRIC ABDOMINAL PAIN, NAUSEA, VOMITING TECHNICAL FACTORS: CT imaging of the abdomen and pelvis were obtained and formatted as 5 mm contiguous axial images from the domes of the diaphragm to the symphysis pubis. Sagittal and coronal reconstructions were also obtained. Comparison: 11/06/2022 Findings: Lower chest: Cardiac size normal. No pericardial effusion. No coronary artery calcification. Lung bases clear. Liver: Normal in size, shape, and attenuation. Bile Ducts: Normal in caliber. Gallbladder: No stones or wall thickening. Pancreas: Normal without masses, cysts, ductal dilatation or calcification. Spleen: Normal in size without masses or calcifications. No splenules. Kidneys: Normal in size and enhancement. No hydronephrosis, masses, or stones. Adrenals: Normal. Small bowel: Normal in caliber. Appendix: Normal. Colon: Normal in caliber. Peritoneum: No ascites, free air, or fluid collections. Vessels: Aorta normal in course and caliber. Portal vein, splenic vein, superior mesenteric vein are patent. Report Lymph nodes: Retroperitoneal: No enlarged retroperitoneal lymph nodes. Mesenteric: No enlarged mesenteric lymph nodes. Pelvic: No enlarged pelvic lymph nodes. Ureters: Normal in course and caliber. No calcifications. Bladder: No wall thickening. Reproductive organs: No pelvic masses. Abdominal Wall: No hernia identified. No diastasis of rectus musculature. No edema or masses. Bones: No bone lesions. No degenerative changes. No post operative changes. All CT scans at this facility use dose modulation, iterative reconstruction, and/or weight based dosing when appropriate to reduce radiation dose to as low as reasonably achievable. Technical Comments: GFR (mL/min/1/73m2) 83 Contrast: Isovue 300 Contrast amount in ml's: 100.00 Rectal Contrast Given? No Ordering Provider: Aravind Douglass FINAL REPORT Dictated: 01/04/2025 12:04 pm Robert Parikh MD Signed (Electronic Signature): 01/04/2025 12:04 pm Signed by: Robert Parikh MD Transcribed by: DEEPTHI Technologist: CLEVE PATIENT EDUCATION - TEXT Observed: 01/04 11:19 AM Status: C Source: [facility] Patient Education - Text Gastroenterology Cannabinoid Hyperemesis Syndrome Cannabinoid hyperemesis syndrome (CHS) is a condition that causes repeated nausea, vomiting, and abdominal pain after long-term use of marijuana (cannabis). People with CHS typically use marijuana 3?5 times a day for many years before they have symptoms, although it is possible to develop CHS with far less daily use. Symptoms of CHS may be mild at first but can get worse and more frequent. In some cases, CHS may cause severe daily vomiting, which can lead to weight loss and dehydration. What are the causes? The exact cause of CHS is not known. Long-term use of marijuana may overstimulate certain proteins in the brain and digestive tract that react with chemicals in marijuana (cannabinoid receptors). This overstimulation may cause CHS. What are the signs or symptoms? Symptoms of CHS are often mild during the first few episodes, but they can get worse over time. Symptoms may include: ??? Frequent nausea, especially early in the morning. ??? Vomiting. This can become severe. ??? Abdominal pain. ??? Feeling very tired (lethargic). ??? Headaches. CHS may go away and come back many times (recur). People may not have symptoms or may otherwise be healthy in between CHS episodes. Taking hot showers can relieve the symptoms of CHS, so feeling the need to take several hot showers throughout the day can be a sign of this condition. How is this diagnosed? CHS may be diagnosed based on: ??? Your symptoms and medical history, including any drug use. ??? A physical exam. You may have tests done to rule out other problems that could cause your symptoms. These tests may include: ??? Blood tests. ??? Urine tests. ??? Imaging tests, such as an X-ray or a CT scan. How is this treated? Treatment for this condition involves stopping marijuana use. Treatment may include: ??? A drug rehab program, if you have trouble stopping marijuana use. ??? Medicines for nausea. These may be given at the hospital through an IV inserted into one of your veins, or they may be medicines that you take by mouth (orally). ??? Certain creams that contain a substance called capsaicin. These may improve symptoms when applied to the abdomen. ??? Hot showers to help relieve symptoms. In severe cases, you may need treatment at a hospital. You may be given IV fluids to prevent or treat dehydration as well as medicines to treat nausea, vomiting, and pain. Follow these instructions at home: During an episode of CHS ??? Stay in bed and rest in a dark, quiet room. ??? Take anti-nausea medicine as told by your health care provider. ??? Try taking hot showers to relieve your symptoms. After an episode of CHS ??? Drink small amounts of clear fluids. Slowly add more if you can keep the fluids down without vomiting. ??? Once you are able to eat without vomiting, eat soft foods in small amounts every 3?4 hours. General instructions ??? Do not use any products that contain marijuana.If you need help quitting, ask your health care provider for resources and treatment options. ??? Drink enough fluid to keep your urine pale yellow. Avoid drinking fluids that have a lot of sugar or caffeine, such as coffee and soda. ??? Take and apply qbrg-lpa-[id number] and prescription medicines only as told by your health care provider. Ask your health care provider before starting any new medicines or treatments. ??? Keep all follow-up visits. This includes any recommended programs for substance use disorders. Contact a health care provider if: ??? Your symptoms get worse. ??? You cannot drink fluids without vomiting or severe pain. ??? You have pain and trouble swallowing after an episode. Get help right away if: ??? You cannot stop vomiting. ??? You have blood in your vomit or your vomit looks like coffee grounds. ??? You have severe abdominal pain. ??? You have stools that are bloody or black, or stools that look like tar. ??? You have symptoms of dehydration, such as: ? Sunken eyes. ? Inability to make tears. ? Cracked lips or dry mouth. ? Decreased urine production. ? Weakness. ? Sleepiness. ? Dizziness, light-headedness, or fainting. These symptoms may be an emergency. Get help right away. Call 911. ??? Do not wait to see if the symptoms will go away. ??? Do not drive yourself to the hospital. Summary ??? Cannabinoid hyperemesis syndrome (CHS) is a condition that causes repeated nausea, vomiting, and abdominal pain after long-term use of marijuana. ??? Treatment for this condition involves stopping marijuana use. Hot showers and capsaicin creams may also help relieve symptoms. ??? Your health care provider may prescribe medicines to help with nausea. ??? Ask your health care provider before starting any medicines or other treatments. This information is not intended to replace advice given to you by your health care provider. Make sure you discuss any questions you have with your health care provider. Document Revised: 10/19/2022 Document Reviewed: 10/19/2022 [employer] Patient Education ? 2023 [employer] CONSULTATION NOTE Observed: 01/04/2025 9:54 AM Status: F Source: [facility] Consultation Note Patient: BRIANNA BYERS Age: 39 years Sex: Female : 1985 Associated Diagnoses: None Author: Pooja JUAREZ, Milton Herrera Subjective Tolerated liquid diet, advance to regular diet today Objective Vital Signs (last 24 hrs) Last Charted Temp Oral 36.6 DegC (JAN 04 06:58) Heart Rate Monitored 86 bpm (JAN 04 08:13) Resp Rate 12 br/min (JAN 03 15:49) SBP 131 mmHg (JAN 04 08:12) DBP H 90 mmHg (JAN 04 08:12) Weight 90.0 kg (JAN 04 05:00) Impression and Plan This is a 39-year-old lady with past medical history of GERD, gastric ulcer, bipolar disorder, marijuana use disorder who presented to the hospital with abdominal pain Denies any melena or hematochezia, no hematemesis or coffee-ground emesis She reports that she had similar epigastric pain in 2021 when she had a large deep gastric ulcer in the antrum in October 2021, repeat EGD in February 2020 showed that also resolved Denies any NSAID use, no alcohol use Denies any smoking, she reports she vapes and uses marijuana She also reported nausea and vomiting in the past few weeks CT abdomen November 2022 showed steatosis #Abdominal pain EGD January 03 showed possibly minimal narrowing in the pylorus, may not be clinically significant Continue supportive care consider gastric emptying study as an outpatient to see if it is clinically significant, if it is Will refer to bariatric surgery advanced endoscopy for dilation #Fatty liver: NAFLD, can't rule out GAGE Does not drink alcohol, consider FibroScan further workup in clinic Result Comment: Electronical ly Signed By: Pooja JUAREZ, Milton Herrera\.br\Date and Time Signed: 01/04/25 15:33 EDT PROGRESS NOTE-PHYSICIAN Observed: 2024 4:26 PM Status: F Source: [facility] Progress Note-Physician Patient: BRIANNA BYERS Age: 39 years Sex: Female : 1985 Associated Diagnoses: None Author: Kartik Chavez Jr., DO Postoperative Information Postoperative disposition: Postoperative disposition: Home. Optimetrix number: Optimetrix number [id number]. Anesthetic utilized: General. Physical Examination Vital Signs 01/03/2025 16:15 EDT SpO2 97 % 01/03/2025 15:35 EDT SpO2 96 % 01/03/2025 15:35 EDT Respiratory Rate Monitored 20 br/min 01/03/2025 15:35 EDT Heart Rate Monitored 112 bpm [place] 01/03/2025 15:35 EDT Systolic Blood Pressure 149 mmHg HI Diastolic Blood Pressure 95 mmHg AZ Mean Arterial Pressure, Cuff 113 mmHg 01/03/2025 15:30 EDT Systolic Blood Pressure 149 mmHg HI Diastolic Blood Pressure 102 mmHg AZ 01/03/2025 15:30 EDT Temperature Temporal Artery 36.8 DegC Heart Rate Monitored 124 bpm HI Respiratory Rate 15 br/min br/min Respiratory Rate Monitored 14 br/min Mean Arterial Pressure, Cuff 118 mmHg SpO2 97 % Pain Assessment: Controlled. General: Awake, Alert, Appropriate. Respiratory: Adequate air exchange, Non-labored. Cardiovascular: Stable, Normal peripheral perfusion. Neurological: Neurologic exam at baseline. No changes.. Assessment Anesthetic outcome No anesthetic complications noted. No nausea/vomiting. Review / Management Condition: Stable. Plan Transfer/Discharge: Transfer/Discharge Discharge when meets criteria ( From PACU to Ambulatory Surgery Unit, and To home ). Result Comment: Electronical ly Signed By: Kartik Chavez Jr., DO.br\Date and Time Signed: 01/03/25 16:26 EDT ENDOSCOPIC PROCEDURE REPORT - OTHER Obse rved: 01/03/2025 3:34 PM Status: C Source: [facility] Endoscopic Procedure Report - Other Patient: BRIANNA BYERS Age: 39 years Sex: Female : 1985 Associated Diagnoses: None Author: Milton Patton MD Pre-Procedure Procedure Date 01/03/2025 15:34:00 . Procedure Type: Esophagogastroduodenoscopy with biopsy. Procedure provider Performed by Milton Patton MD. Current history and physical Documented on chart. Informed Consent After discussing the rationale, risks and benefits, and alternatives to this procedure, the patient provided signed consent for the procedure. Pre-procedure diagnosis: anemia. Medications Anticoagulant/antiplatelet None. ASA Classification: Class II. . Monitoring: See anesthesia record. . Procedure The procedure was performed in the hospital. See anesthesia record for sedation given during procedure. The patient was positioned starting in the left lateral decubitus position and with safety measures. Endoscope type used was an adult-size, introduced orally, advanced to the 3rd portion of the duodenum. No difficulty was encountered during the procedure. Views were excellent. The patient tolerated the procedure well. Findings 1. Normal examined esophagus 2. Pylorus lumen slightly smaller in size likely from previous scarring related to large ulcer in 2021, may not be clinically significant but it can contribute to nausea and vomiting with mild gastric outlet obstruction symptoms 3. Otherwise normal gastric mucosa, random biopsies were taken to rule out H. pylori 4. Normal examined duodenum Images Procedure images: Rec1_hd_video____[id number].jpg Rec1_hd_video___[id number].jpg Rec1_hd_video____[id number].jpg Rec1_hd_video__[id number].jpg Rec1_hd_video__[id number].jpg Rec1_hd_video_[id number].jpg Rec1_hd_video__[id number].jpg Rec1_hd_video__[id number].jpg Rec1_hd_video__[id number].jpg Rec1_hd_video__[id number].jpg Rec1_hd_video__[id number].jpg Rec1_hd_video__[id number].jpg Rec1_hd_video__[id number].jpg Rec1_hd_video__[id number].jpg Rec1_hd_video_[id number].jpg . Post-Procedure Complications: none. Estimated blood loss: minimal. Specimens: sent to pathology. Devices/ implants: none left in place. Impression and Plan 1. Normal examined esophagus 2. Pylorus lumen slightly smaller in size likely from previous scarring related to large ulcer in 2021, may not be clinically significant but it can contribute to nausea and vomiting with mild gastric outlet obstruction symptoms 3. Otherwise normal gastric mucosa, random biopsies were taken to rule out H. pylori 4. Normal examined duodenum Recommendations: - Advance diet as tolerated, - Consider Reglan before meals, other antiemetics also as needed - Consider gastric emptying study as an outpatient to assess if there is clinically significant gastric outlet obstruction - Await pathology results, follow-up in GI clinic after discharge If no improvement in abdominal pain by tomorrow consider CT abdomen with IV contrast Result Comment: Electronical ly Signed By: Milton Patton MD\.br\Date and Time Signed: 01/03/25 15:38 EDT Other Comment: Missing Attac hment - attachment storage system not supported [id number] Can be viewed in source system Missing Attachment - attachment storage system not supported [id number] Can be viewed in source systemMissing Attachment - attachment storage system not supported [id number] Can be viewed in source systemMissing Attachment - attachment storage system not supported [id number] Can be viewed in source systemMissing Attachment - attachment storage system not supported [id number] Can be viewed in source systemMissing Attachment - attachment storage system not supported [id number] Can be viewed in source systemMissing Attachment - attachment storage system not supported [id number] Can be viewed in source systemMissing Attachment - attachment storage system not supported [id number] Can be viewed in source systemMissing Attachment - attachment storage system not supported [id number] Can be viewed in source systemMissing Attachment - attachment storage system not supported [id number] Can be viewed in source systemMissing Attachment - attachment storage system not supported [id number] Can be viewed in source systemMissing Attachment - attachment storage system not supported [id number] Can be viewed in source systemMissing Attachment - attachment storage system not supported [id number] Can be viewed in source systemMissing Attachment - attachment storage system not supported [id number] Can be viewed in source systemMissing Attachment - attachment storage system not supported [id number] Can be viewed in source system MAIN OR INTRAOPERATIVE RECORD Observed: 01/03/2025 3:24 PM Status: C Source: [facility] Main OR Intraoperative Recor d IntraOp Document Type FT Summary Primary Physician: Milton Patton MD Finalized Date/Time: 01/04/25 13:41:34 Pt. Name: JAMA BRIANNARICHI Chan D.O.B./Sex: 1985 Female Med Rec #: [id number] Physician: Saundra Blanc MD Financial #: [id number] Pt. Type: O Room/Bed: [facility]/01 Admit/Disch: 01/02/25 21:13:34 - Institution: Case Times FT Entry 1 Patient Times In Room 01/03/25 15:16:00 Out Room 01/03/25 15:30:00 Procedure Times Start 01/03/25 15:24:00 Stop 01/03/25 15:28:00 Anesthesia Times Start 01/03/25 15:16:00 Stop 01/03/25 15:30:00 Last Modified By: Azeb Jaquez RN 01/03/25 15:30:29 Case Attendance FT Entry 1 Entry 2 Entry 3 Case Attendee Cedrick GARCÍA, Micah Patton MD, Gilmar Jones Role Performed WELL TESTER Surgeon - Primary Scrub - Primary Time In 01/03/25 15:16:00 01/03/25 15:16:00 01/03/25 15:16:00 Time Out 01/03/25 15:30:00 01/03/25 15:30:00 01/03/25 15:30:00 Procedure EGD(.) EGD(.) EGD(.) Comments Dr. Chavez supervising procedure. Last Modified By: Katy Anderson CST, RN, Azeb Argueta RN 01/04/25 13:41:08 01/03/25 15:30:30 01/03/25 15:30:30 Entry 4 Case Attendee Azeb Jaquez RN Role Performed Sprinkler Irrigation Equipment Mechanic - Primary Time In 01/03/25 15:16:00 Time Out 01/03/25 15:30:00 Procedure EGD(.) Comments Last Modified By: Azeb Jaquez RN 01/03/25 15:30:30 Perioperative Protocols FT Pre-Care Text: Implements protective measures prior to operative or invasive procedure, confirms identity before the operative or invasive procedure, verifies operative procedure, surgical site, and laterality Entry 1 Procedure(s) EGD(.) Patient Identity Birthday, ID Band Verified (select at Check, Patient least 2): Participation Consents / H and P Anesthesia Consent, Operative Site N/A Verified H&P, Surgery/Procedure Marking Verified Consent Surgical Site No Laterality Verified n/a Verified Procedure Verified Yes Correct Patient Yes Position Verified Availability Equipment, Medication Prep Dry n/a Verified (If Applicable) PreOp Antibiotic No Time Out Micah Philip CRNA, Given Participants Gilmar Aguilar Sarmini MD, Milton Herrera, Azeb Jaquez RN Time Out Complete 01/03/25 15:19:00 Outcomes Met? Yes Last Modified By: Azeb Jaquez RN 01/03/25 15:19:52 Post-Care Text: The patient is free from signs and symptoms of injury caused by extraneous objects Allergy Information FT Pre-Care Text: Verifies allergies Entry 1 Allergies Reviewed? Yes Allergies Reviewed Self/Patient With Outcomes Met? Yes Last Modified By: Azeb Jaquez RN 01/03/25 15:20:00 Post-Care Text: The patient received appropriate medication(s) safely administered during the perioperative period Surgical Procedures FT Entry 1 Procedure Description Procedure EGD Modifiers . Surgeon Description EGD with gastric biopsy. Primary Procedure Yes Primary Surgeon Pooja JUAREZ, Milton Herrera Start 01/03/25 15:24:00 Stop 01/03/25 15:28:00 Anesthesia Type General Surgical Service Gastroenterology Wound Class 2 - Clean-Contaminated Last Modified By: Azeb Jaquez RN 01/03/25 15:28:32 General Case Data FT Pre-Care Text: Classifies surgical wound, implements aseptic technique, initiates traffic control Entry 1 Case Information OR ENDO 1 FT Case Level Level 2 Wound Class 2 - Clean-Contaminated Specialty Gastroenterology ASA Class 2 Preop Diagnosis NAUSEA, VOMITING Postop Same As Preop No Postop Diagnosis Slightly narrow pylorus Outcomes Met? Yes Last Modified By: Azeb Jaquez RN 01/03/25 15:28:24 Post-Care Text: The patient is free from signs and symptoms of infection Skin Assessment (Pre Procedure) FT Pre-Care Text: Implements protective measures to prevent skin/ tissue injury due to thermal or mechanical sources Evaluates for signs and symptoms of physical injury to skin and tissue Entry 1 Skin Integrity Intact, [place], Warm, & Skin Abnormality No Dry Outcomes Met? Yes Last Modified By: Azeb Jaquez RN 01/03/25 15:20:37 Post-Care Text: The patient is free from signs and symptoms of injury caused by extraneous objects Patient Positioning FT Pre-Care Text: Identifies physical alterations that require additional precautions for procedure-specific positioning, verifies presence of prosthetics or corrective devices, positions the patient, evaluates the patient for signs and symptoms of injury as a result of positioning Entry 1 Procedure EGD(.) Body Position Lateral, right side up Feet Uncrossed? Yes Left Arm Position Resting at Side Right Arm Position Resting at Side Left Leg Position Extended Right Leg Position Extended Positioning Device Safety Strap, Pillow Under Head Large Press Points Checked Yes By Azeb Jaquez RN Outcomes Met? Yes Last Modified By: Azeb Jaquez RN 01/03/25 15:20:45 Post-Care Text: The patient is free from signs and symptoms of injury related to positioning Patient Care Devices FT Pre-Care Text: Implements protective measures to prevent skin/ tissue injury due to thermal or mechanical sources Entry 1 Entry 2 Equipment Type ENDOSCOPY VIDEO SYSTEM MONITOR CHARGE SURGERY Equipment Number [id number] E1 Equipment Setting Outcomes Met? Yes Yes Last Modified By: Azeb Jaquez RN, RN, Kara N 01/03/25 15:21:02 01/03/25 15:21:02 Post-Care Text: The patient is free from signs and symptoms of injury caused by extraneous objects Transport To OR FT Pre-Care Text: Transports according to individual needs. Evaluates for signs and symptoms of skin and tissue injury as a result of transfer or transport Entry 1 Via Cart By Azeb Jaquez RN Safety Precautions Side Rails Up Outcomes Met? Yes Last Modified By: Azeb Jaquez RN 01/03/25 15:21:09 Post-Care Text: The patient is free from signs and symptoms of injury related to transfer/transport Departure From OR Pre-Care Text: Transports according to individual needs. Evaluates for signs and symptoms of skin and tissue injury as a result of transfer or transport. Entry 1 Via Cart Safety Precautions Side Rails Up PostOp Destination PACU Transported By Azeb Jaquez RN Patient Status Stable Skin. Condition Intact, [place], Warm, & Dry Airway Maintenance Oxygen in Use? No Airway Device N/A Outcomes Met? Yes Last Modified By: Azeb Jaquez RN 01/03/25 15:21:24 Post-Care Text: The patient is free from signs and symptoms of injury related to transfer/transport General Comments: Report given to PACU,RN/KS,health safety coordinator Administration FT Pre-Care Text: Verifies allergies, administers prescribed medications and solutions, administers prescribed antibiotic therapy and immunizing agents as ordered, evaluates response to medications Administers prescribed medications and solutions Entry 1 Expiration Date Yes Outcomes Met? Yes Verified Last Modified By: Azeb Jaquez RN 01/03/25 15:21:30 Post-Care Text: The patient received appropriate medication(s) safely administered during the perioperative period For HobsonJaclyn please see scanned medication reconcilliation form for medications used at the field during the procedure. Cultures & Specimens FT Pre-Care Text: Manages specimen handling and disposition Manages culture specimen collection Entry 1 Cultures Ordered n/a Specimens Ordered Yes Specimen Disposition Designated OR Area Frozen Section Times Outcomes Met? Yes Last Modified By: Azeb Jaquez RN 01/03/25 15:21:35 Post-Care Text: The patient is free from signs and symptoms of injury caused by extraneous objects The patient is free from signs and symptoms of infection Sign Out FT Entry 1 Before Patient Leaves OR Nurse verbally Yes Nurse verbally n/a confirms with the confirms with the team the name of team that the procedure(s) instrument, sponge, recorded and needle counts are correct (or N/A) Nurse verbally Yes Nurse verbally Yes confirms with the confirms with the team how the team whether there specimen is labeled are any equipment (including patient problems to be name), if applicable addressed Sign Out Complete 01/03/25 15:28:00 Last Modified By: Azeb Jaquez RN 01/03/25 15:28:27 Case Comments <None> Finalized By: Katy Anderson CST Document Signatures Signed By: Azeb Jaquez RN 01/03/25 15:30 Katy Anderson CST 01/04/25 13:41 Unfinalized History Date/Time Username Reason for Unfinalizing Freetext Reason for Unfinalizing 01/04/25 13:40 [id number] Other - See Nurses Notes 01/04/25 Chart opened to review and send charges [facility] MAIN OR PACU I RECORD Observed: 01/04/20 3:24 PM Status: F Source: [facility] Main OR PACU I Record PACU Phase I Document Type FT Summary Primary Physician: Pooja JUAREZ, Milton Herrera Finalized Date/Time: 01/03/25 17:10:20 Pt. Name: BRIANNA BYERS Cheli/Sex: 1985 Female Med Rec #: [id number] Physician: Saundra Blanc MD Financial #: [id number] Pt. Type: O Room/Bed: 14 Admit/Disch: 01/02/25 21:13:34 - Institution: Case Times PACU I FT Pre-Care Text: Identifies barriers to communication and implements measures to provide psychological support Develops individualized plan of care, and ensures continuity of care Maintains patient's dignity and privacy, and maintains patient confidentiality Identifies and reports philosophical, cultural, and spiritual beliefs and values Identifies individual values and wishes concerning care Implements aseptic technique, and administers prescribed antibiotic therapy and immunizing agents as ordered Evaluates postoperative tissue perfusion Implements thermoregulation measures, and monitors body temperature Evaluates postoperative respiratory status Evaluates postoperative cardiac status Evaluates postoperative neurological status Assesses pain control, collaborated in initiating patient-controlled analgesia and implements alternative methods of pain control Verifies allergies, administers prescribed medications and solutions, evaluates response to medications Entry 1 In PACU I 01/03/25 15:30:00 Discharge from PACU 01/03/25 15:50:00 I Outcomes Met? Yes Last Modified By: Margareth Ramírez RN 01/03/25 17:10:05 Post-Care Text: The patient demonstrates knowledge of the expected response to the operative or invasive procedure The patient's care is consistent with the individualized perioperative plan of care The patient's right to privacy is maintained The patient's value system, lifestyle, ethnicity, and culture are considered, respected, and incorporated into the perioperative plan of care The patient participates in decisions affecting his or her perioperative plan of care The patient is free from signs and symptoms of infection The patient has wound/tissue perfusion consistent with or improved from baseline levels established preoperatively The patient is at or returning to normothermia at the conclusion of the immediate postoperative period The patient's respiratory function is consistent with or improved from baseline levels established preoperatively The patient's cardiovascular status is consistent with or improved from baseline levels established preoperatively The patient's cardiovascular status is consistent with or improved from baseline levels established preoperatively The patient demonstrates and/or reports adequate pain control throughout the perioperative period The patient received appropriate medication(s), safely administered during the perioperative period Acuity Level PACU I FT Entry 1 Start Time 01/03/25 15:30:00 Stop Time 01/03/25 15:50:00 Acuity Level Acuity Level I Last Modified By: Margareth Ramírez RN 01/03/25 17:10:16 Finalized By: Margareth Ramírez RN Document Signatures Signed By: Margareth Ramírez RN 01/03/25 17:10 CONSULTATION NOTE Observed: 01/03/2025 3:22 PM Status: F Source: [facility] Consultation Note Patient: BRIANNA BYERS Age: 39 years Sex: Female : 1985 Associated Diagnoses: None Author: Pooja JUAREZ, Miltno Herrera Basic Information Abdominal pain History of Present Illness This is a 39-year-old lady with past medical history of GERD, gastric ulcer, bipolar disorder, marijuana use disorder who presented to the hospital with abdominal pain Denies any melena or hematochezia, no hematemesis or coffee-ground emesis She reports that she had similar epigastric pain in 2021 when she had a large deep gastric ulcer in the antrum in October 2021, repeat EGD in February 2020 showed that also resolved Denies any NSAID use, no alcohol use Denies any smoking, she reports she vapes and uses marijuana She also reported nausea and vomiting in the past few weeks CT abdomen November 2022 showed steatosis Health Status Current medications: (Selected) Inpatient Medications Ordered NS 1000 mL Soln-IV 1,000 mL: 1,000 mL, IV, 125 mL/hr, Routine, Start date 01/03/25 3:52:00 EDT, 8 hour(s), Total volume (mL): 1,000, 82.1 kg, 1.86, m2 Zofran 4 mg/2 mL Injection: 4 mg = 2 mL, Injection, IV Push, q4hr PRN Nausea, Routine, Start date 01/03/25 3:52:00 EDT, 01/03/25 3:52:00 EDT capsaicin topical 0.025% cream: 1 chris, Cream, Topical, QID PRN Nausea/Vomiting, STAT, Start date 01/03/25 7:56:00 EDT morphine 4 mg/mL Inj: 4 mg = 1 mL, Injection, IV Push, q3hr PRN Pain, Stop date 01/07/25 3:40:00 EDT, Routine, Start date 01/03/25 3:50:00 EDT, 01/03/25 3:50:00 EDT pantoprazole 40 mg IV Inj: 40 mg = 10 mL, Injection, IV Push, q12hr, Routine, Start date 01/03/25 4:00:00 EDT, 01/03/25 3:52:00 EDT Prescriptions Prescribed Bentyl 10 mg Cap: 10 mg = 1 cap(s), Oral, QID, PRN Other (see comment), For abdominal cramping, # 16 cap(s), Refills(s) 0, Pharmacy: [facility]/pharmacy #[id number], 152, cm, 12/23/22 19:46:00 EDT, Height/Length Dosing, 58, kg, 12/23/22 19:46:00 EDT, Weight Dosing Phenergan 25 mg Supp: 25 mg = 1 supp, Rectal, q6hr, PRN Nausea/Vomiting, # 6 EA, Refills(s) 0, [id number] 152, cm, 12/23/22 19:46:00 EDT, Height/Length Dosing, 58, kg, 12/23/22 19:46:00 EDT, Weight Dosing Protonix 40 mg Tab-DR: 40 mg = 1 tab(s), Oral, Daily, # 30 tab(s), Refills(s) 0, [id number], 152, cm, 07/29/22 2:29:00 EST, Height/Length Dosing, 64, kg, 07/29/22 2:29:00 EST, Weight Dosing Vitamin B12 1000 mcg Tab: 1,000 mcg = 1 tab(s), Oral, Daily, # 30 tab(s), Refills(s) 0, [id number], 152.4, cm, 11/06/22 14:36:00 EDT, Height/Length Dosing, 59.5, kg, 11/06/22 14:36:00 EDT, Weight Dosing folic acid 1 mg Tab: 1 mg = 1 tab(s), Oral, Daily, # 30 tab(s), Refills(s) 0, [id number], 152.4, cm, 11/06/22 14:36:00 EDT, Height/Length Dosing, 59.5, kg, 11/06/22 14:36:00 EDT, Weight Dosing melatonin 3 mg Tab: 3 mg = 1 tab(s), Oral, Bedtime, PRN Sleep, # 30 tab(s), Refills(s) 0, [id number], 152.4, cm, 11/06/22 14:36:00 EDT, Height/Length Dosing, 59.5, kg, 11/06/22 14:36:00 EDT, Weight Dosing promethazine 25 mg Tab: 25 mg = 1 tab(s), Oral, q6hr, PRN as needed for nausea/vomiting, # 16 tab(s), Refills(s) 0, [id number], 152.4, cm, 10/20/22 0:45:00 EDT, Height/Length Dosing, 61.2, kg, 10/20/22 0:45:00 EDT, Weight Dosing Documented Medications Documented Imitrex 100 mg Tab: 100 mg = 1 tab(s), Oral, Daily, PRN as needed for migraine headache, Refills(s) 0 Metoprolol tartrate 25 mg Tab: mg tab(s), Oral, BID, Refills(s) 0 Rexulti 3 mg oral tablet: 3 mg = 1 tab(s), Oral, Daily, Refills(s) 0 Vyvanse 20 mg oral capsule: TAKE 1 CAPSULE BY MOUTH EVERY DAY IN THE MORNING FOR 30 DAYS buPROPion 300 mg/24 hours ER Tab: 300 mg = 1 tab(s), Oral, Daily, Refills(s) 0 busPIRone: 10 mg, Oral, BID, Refills(s) 0 celecoxib 200 mg Cap: 200 mg = 1 cap(s), Oral, Daily, Refills(s) 0 cloNIDine 0.1 mg tab: See Instructions, 1 tab(s) SubLingual, Refills(s) 0 gabapentin 100 mg Cap: 200 mg = 2 cap(s), Oral, BID, Refills(s) 0 ondansetron 4 mg Dis Tab: 4 mg = 1 tab(s), Oral, q6hr, PRN Nausea/Vomiting, Refills(s) 0 tiZANidine 4 mg Tab: 4 mg = 1 tab(s), Oral, Bedtime, Refills(s) 0 Physical Examination Vital Signs (last 24 hrs) Last Charted Temp Temporal 36.4 DegC (JAN 03 14:24) Heart Rate Monitored 102 bpm (JAN 03:) Resp Rate 20 br/min (JAN 03 14:24) SBP 141 mmHg (JAN 03:) DBP 100 mmHg (JAN 03:) Weight 84.4 kg (JAN 03 06:00) BMI 35.35 (JAN 03 03:18) Impression and Plan This is a 39-year-old lady with past medical history of GERD, gastric ulcer, bipolar disorder, marijuana use disorder who presented to the hospital with abdominal pain Denies any melena or hematochezia, no hematemesis or coffee-ground emesis She reports that she had similar epigastric pain in 2021 when she had a large deep gastric ulcer in the antrum in October 2021, repeat EGD in February 2020 showed that also resolved Denies any NSAID use, no alcohol use Denies any smoking, she reports she vapes and uses marijuana She also reported nausea and vomiting in the past few weeks CT abdomen November 2022 showed steatosis #Abdominal pain Proceed with EGD Avoid NSAIDs PPI daily #Fatty liver: NAFLD, can't rule out GAGE Does not drink alcohol, consider FibroScan further workup in clinic Result Comment: Electronical ly Signed By: Pooja JUAREZ, Milton Herrera\.br\Date and Time Signed: 01/03/25 15:34 EDT SURGICAL PATHOLOGY REPORT Observed: 08/2024 3:22 PM Status: F Source: [address] [id number]- Surgical Pathology Report Collected Date/Time: 01/03/2025 15:22 EDT Pathologist: Michele JUAREZ PhD, Kingsley Chan Received Date/Time: 01/04/2025 07:24 EDT Pooja JUAREZ, Milton Patton MD, Milton Herrera 07 Surgical Pathology Report - 01/11/2025 12:01 EDT - Auth (Verified) Final Diagnosis STOMACH, BIOPSY: - GASTRIC MUCOSA WITH PROTON PUMP INHIBITOR INDUCED CHANGES. - NO H. PYLORI MICROORGANISMS IDENTIFIED WITH IMMUNOSTAIN. (Electronic Signature) Kingsley Bautista MD PhD 01/11/2025 12:01 Clinical Information Nausea, vomiting Pre-Op Diagnosis: Nausea, vomiting Procedure: EGD Post-Op Diagnosis: 1. Normal examined esophagus 2. Pylorus lumen slightly smaller in size likely from previous scarring related to large ulcer in 2021, may not be clinically significant but it can contribute to nausea and vomiting with mild gastric outlet obstruction symptoms 3. Otherwise normal gastric mucosa, random biopsies were taken to rule out H. pylori 4. Normal examined duodenum Specimen(s) Received Gastric biopsy Gross Description Received in formalin labeled with patient name, number, and gastric biopsy are two fragments of chacon tissue each measuring 0.1 cm. Specimen is entirely submitted in one cassette. (DC) DC:MCA Microscopic Description The use of one or more reagents in the above tests is regulated as an analyte specific reagent (ASR). The test or tests are ordered following initial H&E microscopic examination. The performance characteristics were determined by the [facility] Surgical Pathology. They have not been cleared or approved by the [place] Food and Drug Administration. The FDA has determined that such clearance or approval is not necessary. These tests are used for clinical purposes. They should not be regarded as investigational or for research. Appropriate positive and negative controls are performed and are acceptable. This report was transcribed using voice recognition technology and might contain unintended computerized trains dispatcher supervisor errors. Microscopic examination performed unless gross only specified. Quality was accessed and acceptable. Performed By: #### [id number] # ### [facility] [address] [place] [address] SURGICAL PATHOLOGY REPORT Observed: 08/2024 3:22 PM Status: F Source: [address] [place] [address]- Surgical Pathology Report Collected Date/Time: 01/03/2025 15:22 EDT Pathologist: Michele JUAREZ PhD, Kingsley Chan Received Date/Time: 01/04/2025 07:24 EDT Pooja JUAREZ, Milton Patton MD, Milton Barry Surgical Pathology Report - 01/11/2025 12:01 EDT - Auth (Verified) Final Diagnosis STOMACH, BIOPSY: - GASTRIC MUCOSA WITH PROTON PUMP INHIBITOR INDUCED CHANGES. - NO H. PYLORI MICROORGANISMS IDENTIFIED WITH IMMUNOSTAIN. (Electronic Signature) Kingsley Bautista MD PhD 01/11/2025 12:01 Clinical Information Nausea, vomiting Pre-Op Diagnosis: Nausea, vomiting Procedure: EGD Post-Op Diagnosis: 1. Normal examined esophagus 2. Pylorus lumen slightly smaller in size likely from previous scarring related to large ulcer in 2021, may not be clinically significant but it can contribute to nausea and vomiting with mild gastric outlet obstruction symptoms 3. Otherwise normal gastric mucosa, random biopsies were taken to rule out H. pylori 4. Normal examined duodenum Specimen(s) Received Gastric biopsy Gross Description Received in formalin labeled with patient name, number, and gastric biopsy are two fragments of chacon tissue each measuring 0.1 cm. Specimen is entirely submitted in one cassette. (DC) DC:MCA Microscopic Description The use of one or more reagents in the above tests is regulated as an analyte specific reagent (ASR). The test or tests are ordered following initial H&E microscopic examination. The performance characteristics were determined by the [facility] Surgical Pathology. They have not been cleared or approved by the [place] Food and Drug Administration. The FDA has determined that such clearance or approval is not necessary. These tests are used for clinical purposes. They should not be regarded as investigational or for research. Appropriate positive and negative controls are performed and are acceptable. This report was transcribed using voice recognition technology and might contain unintended computerized trains dispatcher supervisor errors. Microscopic examination performed unless gross only specified. Quality was accessed and acceptable. Performed By: #### [id number] # ### [facility] [address] [place] [id number] MAIN OR PREOPERATIVE RECORD Observed: 2:45 PM Status: F Source: [facility] Main OR Preoperative Record Holding Area Document Type FT Summary Primary Physician: Milton Patton MD Finalized Date/Time: 01/03/25 14:26:44 Pt. Name: JAMA BRIANNARICHI Bower/Sex: 1985 Female Med Rec #: [id number] Physician: Saundra Blanc MD Financial #: [id number] Pt. Type: O Room/Bed: 14/ Admit/Disch: 01/02/25 21:13:34 - Institution: Case Times Holding FT Pre-Care Text: Verifies consent for planned procedure, identifies individual values and wishes concerning care, includes family members in perioperative teaching Secures patient's records' belongings, and valuables, maintains patient's dignity and privacy, and maintains patient confidentiality Entry 1 In Holding 01/03/25 14:20:00 Outcomes Met? Yes Last Modified By: Kenyetta Capone RN 01/03/25 14:25:29 Post-Care Text: The patient participates in decisions affecting his or her perioperative plan of care The patient's right to privacy is maintained Surgery Checklist FT Entry 1 Patient Birthday, ID Band Procedure History and Physical, Identification: Check, Patient Verification: Surgical Consent, With Participation Patient NPO after Midnight: Yes Date/Time: 01/03/25 10:30:00 Personal Items: Jewelry Personal Items necklace, earrings, Comment: metal implant to neck Limitations: n/a Complaints of Pain: Yes Pain Comment: 01/11 abdominal pain Operative Site n/a Marking: Marked By: n/a Availability Equipment Verified: Does Patient Smoke Yes If Yes to Smoking. vapes Cigars or Cigarettes. How much per day? Patient states Yes Comment - Adult inpatient room 314 postop adult Supervision supervision available Case Cancelled in No Holding Area see comments below for reason Last Modified By: Kenyetta Capone RN 01/03/25 14:26:42 General Comments: Pt NPO since midnight other than ice chips throughout the morning until 1030. /,Rn Finalized By: Kenyetta Capone RN Document Signatures Signed By: Kenyetta Capone RN 01/03/25 14:26 PROGRESS NOTE-PHYSICIAN Observed: 2024 2:16 PM Status: F Source: [facility] Progress Note-Physician Patient: BRIANNA BYERS Age: 39 years Sex: Female : 1985 Associated Diagnoses: None Author: Kartik Chavez Jr., DO Preoperative Information Anesthesia history: Patient history: No prior anesthetic problems. Informed consent: Signed by patient. Re-evaluation prior to induction: Initial evaluation reviewed: No significant change. Review of Systems Respiratory: Negative except as documented in history of present illness. Cardiovascular: Negative except as documented in history of present illness. Health Status Allergies: Allergic Reactions (Selected) Severe Amoxicillin- Unknown. Augmentin- Unk. Severity Not Documented Iothalamate- Unknown. Reglan- No reactions were documented. Vraylar- Unk., Allergies (5) Active Severity Reaction Augmentin Severe UNK amoxicillin Severe Unknown Reglan None Documented Vraylar UNK iothalamate Unknown Current medications: (Selected) Inpatient Medications Ordered NS 1000 mL Soln-IV 1,000 mL: 1,000 mL, IV, 125 mL/hr, Routine, Start date 01/03/25 3:52:00 EDT, 8 hour(s), Total volume (mL): 1,000, 82.1 kg, 1.86, m2 Zofran 4 mg/2 mL Injection: 4 mg = 2 mL, Injection, IV Push, q4hr PRN Nausea, Routine, Start date 01/03/25 3:52:00 EDT, 01/03/25 3:52:00 EDT capsaicin topical 0.025% cream: 1 chris, Cream, Topical, QID PRN Nausea/Vomiting, STAT, Start date 01/03/25 7:56:00 EDT morphine 4 mg/mL Inj: 4 mg = 1 mL, Injection, IV Push, q3hr PRN Pain, Stop date 01/07/25 3:40:00 EDT, Routine, Start date 01/03/25 3:50:00 EDT, 01/03/25 3:50:00 EDT pantoprazole 40 mg IV Inj: 40 mg = 10 mL, Injection, IV Push, q12hr, Routine, Start date 01/03/25 4:00:00 EDT, 01/03/25 3:52:00 EDT Prescriptions Prescribed Bentyl 10 mg Cap: 10 mg = 1 cap(s), Oral, QID, PRN Other (see comment), For abdominal cramping, # 16 cap(s), Refills(s) 0, Pharmacy: [facility]/pharmacy #[id number], 152, cm, 12/23/22 19:46:00 EDT, Height/Length Dosing, 58, kg, 12/23/22 19:46:00 EDT, Weight Dosing Phenergan 25 mg Supp: 25 mg = 1 supp, Rectal, q6hr, PRN Nausea/Vomiting, # 6 EA, Refills(s) 0, [id number] 152, cm, 12/23/22 19:46:00 EDT, Height/Length Dosing, 58, kg, 12/23/22 19:46:00 EDT, Weight Dosing Protonix 40 mg Tab-DR: 40 mg = 1 tab(s), Oral, Daily, # 30 tab(s), Refills(s) 0, [id number], 152, cm, 07/29/22 2:29:00 EST, Height/Length Dosing, 64, kg, 07/29/22 2:29:00 EST, Weight Dosing Vitamin B12 1000 mcg Tab: 1,000 mcg = 1 tab(s), Oral, Daily, # 30 tab(s), Refills(s) 0, [id number], 152.4, cm, 11/06/22 14:36:00 EDT, Height/Length Dosing, 59.5, kg, 11/06/22 14:36:00 EDT, Weight Dosing folic acid 1 mg Tab: 1 mg = 1 tab(s), Oral, Daily, # 30 tab(s), Refills(s) 0, [id number], 152.4, cm, 11/06/22 14:36:00 EDT, Height/Length Dosing, 59.5, kg, 11/06/22 14:36:00 EDT, Weight Dosing melatonin 3 mg Tab: 3 mg = 1 tab(s), Oral, Bedtime, PRN Sleep, # 30 tab(s), Refills(s) 0, [id number], 152.4, cm, 11/06/22 14:36:00 EDT, Height/Length Dosing, 59.5, kg, 11/06/22 14:36:00 EDT, Weight Dosing promethazine 25 mg Tab: 25 mg = 1 tab(s), Oral, q6hr, PRN as needed for nausea/vomiting, # 16 tab(s), Refills(s) 0, [id number], 152.4, cm, 10/20/22 0:45:00 EDT, Height/Length Dosing, 61.2, kg, 10/20/22 0:45:00 EDT, Weight Dosing Documented Medications Documented Imitrex 100 mg Tab: 100 mg = 1 tab(s), Oral, Daily, PRN as needed for migraine headache, Refills(s) 0 Metoprolol tartrate 25 mg Tab: mg tab(s), Oral, BID, Refills(s) 0 Rexulti 3 mg oral tablet: 3 mg = 1 tab(s), Oral, Daily, Refills(s) 0 Vyvanse 20 mg oral capsule: TAKE 1 CAPSULE BY MOUTH EVERY DAY IN THE MORNING FOR 30 DAYS buPROPion 300 mg/24 hours ER Tab: 300 mg = 1 tab(s), Oral, Daily, Refills(s) 0 busPIRone: 10 mg, Oral, BID, Refills(s) 0 celecoxib 200 mg Cap: 200 mg = 1 cap(s), Oral, Daily, Refills(s) 0 cloNIDine 0.1 mg tab: See Instructions, 1 tab(s) SubLingual, Refills(s) 0 gabapentin 100 mg Cap: 200 mg = 2 cap(s), Oral, BID, Refills(s) 0 ondansetron 4 mg Dis Tab: 4 mg = 1 tab(s), Oral, q6hr, PRN Nausea/Vomiting, Refills(s) 0 tiZANidine 4 mg Tab: 4 mg = 1 tab(s), Oral, Bedtime, Refills(s) 0, Home Medications (18) Active Bentyl 10 mg Cap 10 mg = 1 cap(s), PRN, Oral, QID buPROPion 300 mg/24 hours ER Tab 300 mg = 1 tab(s), Oral, Daily busPIRone 10 mg, Oral, BID celecoxib 200 mg Cap 200 mg = 1 cap(s), Oral, Daily cloNIDine 0.1 mg tab See Instructions folic acid 1 mg Tab 1 mg = 1 tab(s), Oral, Daily gabapentin 100 mg Cap 200 mg = 2 cap(s), Oral, BID Imitrex 100 mg Tab 100 mg = 1 tab(s), PRN, Oral, Daily melatonin 3 mg Tab 3 mg = 1 tab(s), PRN, Oral, Bedtime Metoprolol tartrate 25 mg Tab , Oral, BID ondansetron 4 mg Dis Tab 4 mg = 1 tab(s), PRN, Oral, q6hr Phenergan 25 mg Supp 25 mg = 1 supp, PRN, Rectal, q6hr promethazine 25 mg Tab 25 mg = 1 tab(s), PRN, Oral, q6hr Protonix 40 mg Tab-DR 40 mg = 1 tab(s), Oral, Daily Rexulti 3 mg oral tablet 3 mg = 1 tab(s), Oral, Daily tiZANidine 4 mg Tab 4 mg = 1 tab(s), Oral, Bedtime Vitamin B12 1000 mcg Tab 1,000 mcg = 1 tab(s), Oral, Daily Vyvanse 20 mg oral capsule , Medications (5) Active Scheduled: (1) pantoprazole 40 mg IV Inj [F] 40 mg 10 mL, IV Push, q12hr Continuous: (1) Sodium Chloride 0.9% 1,000 mL 1,000 mL, IV, 125 mL/hr PRN: (3) capsaicin topical 0.025% Crea [F] 1 chris, Topical, QID morphine 4 mg/mL preservative-free [F] 4 mg 1 mL, IV Push, q3hr ondansetron 2 mg/mL Inj [F] 4 mg 2 mL, IV Push, q4hr Problem list: All Problems Acid reflux / SNOMED CT 306055526 / Confirmed Acute hypokalemia / SNOMED CT 820956477 / Confirmed Antral erosion / SNOMED CT 013502702 / Confirmed Antral ulcer / SNOMED CT 8668415877 / Confirmed Anxiety disorder / SNOMED CT 166502231 / Confirmed C. difficile colitis / SNOMED CT 8904336475 / Confirmed Chronic post-traumatic stress disorder (PTSD) / SNOMED CT 751748416 / Confirmed Clostridium difficile diarrhea / SNOMED CT 9398301741 / Confirmed Problem added secondary to positive C-Diff lab result. Diarrhea / SNOMED CT 749920867 / Confirmed Epigastric pain / SNOMED CT 142184305 / Confirmed Family history of colon cancer / SNOMED CT 378393810 / Confirmed Hemorrhoids / SNOMED CT 480940617 / Confirmed History of stomach ulcers / SNOMED CT 431532699 / Confirmed Hx of gastric ulcer / SNOMED CT 865370185 / Confirmed Hypomagnesemia / SNOMED CT 401955430 / Confirmed Insomnia / SNOMED CT 563607941 / Confirmed Intractable nausea and vomiting / SNOMED CT 9388018873 / Confirmed Leukocytosis / SNOMED CT 285179360 / Confirmed LFT elevation / SNOMED CT 0328625439 / Confirmed Loose stools / SNOMED CT 2614915199 / Confirmed Marijuana use / SNOMED CT 5232078001 / Confirmed Mixed bipolar affective disorder, mild / SNOMED CT 179524238 / Confirmed Nausea / SNOMED CT 2691515589 / Confirmed Obesity / SNOMED CT 0810240486 / Confirmed Smoker / SNOMED CT 553757983 / Confirmed Added secondary to documentation in Social History. Weight loss / SNOMED CT 395248040 / Confirmed Resolved: / SNOMED CT 129833795 Resolved: / SNOMED CT 438227243 Resolved: / SNOMED CT 107903021 Resolved: / SNOMED CT 336367721 Resolved: / SNOMED CT 513305010 Resolved: / SNOMED CT 185293926 Resolved: / SNOMED CT 423411889 Resolved: Alcohol use during / Patient Care Resolved: Alcohol use during / Patient Care Canceled: / SNOMED CT 177596043 Canceled: C. difficile diarrhea / SNOMED CT [id number] Canceled: Difficulty chewing / SNOMED CT [id number] Histories Past Medical History: Active Antral ulcer ([id number]) Resolved Alcohol use during : Resolved on 02/02/2011 at 25 years. Alcohol use during : Resolved on 02/03/2011 at 25 years. Procedure history: Colonoscopy ([id number]) on 08/25/2022 at 37 Years. Esophagogastroduodenoscopy ([id number]) on 02/09/2022 at 36 Years. EGD - Esophagogastroduodenoscopy ([id number]) on 10/09/2021 at 36 Years. Tear of anterior cruciate ligament of left knee ([id number]) in 2001 at 17 Years. 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 Home/Environment 12/08/2018 Lives with: Children Living situation: Home/Independent Substance Abuse 02/02/2011 Risk Assessment: Denies Substance Abuse Comment: use during first trimester - 02/02/2011 20:52 - Gilberto PHIPPS, Rukhsana Dunham 08/15/2019 Use: Current Type: Marijuana Frequency: Daily Comment: denies - 01/12/2022 09:49 - Amos PHIPPS, June Leblanc 01/02/2025 Use: Current Type: Marijuana Comment: daily - 01/02/2025 21:34 - Edilberto RN, Elsa Christensen Tobacco 03/20/2020 Tobacco Use: Former smoker, quit more, vapes Smokeless tobacco use: Current vaping or e-cigar Type: Vaping Ready to change: No Concerns about tobacco use in household: Yes Smoking Cessation Yes 11/13/2021 Risk Assessment: Medium Risk 12/24/2021 Tobacco Use: Former smoker, quit more Type: Vaping Number of years: 20 Started at age: 18.0 Years Stopped at age: 36 Years Previous treatment: None Comment: Patient vapes 1 carterage a day - 11/13/2021 16:02 - Pamela Mims RN 07/30/2022 Tobacco Use: Former smoker, quit more Smokeless tobacco use: Current vaping or e-cigar, Never Type: Cigarettes 10/22/2022 Tobacco Use: Former smoker, quit more Smokeless tobacco use: Never Type: Cigarettes Comment: quit over a month ago - 11/13/2021 13:01 - Dasia Anderson RN 01/02/2025 Tobacco Use: Former smoker, quit more . Physical Examination Vital Signs 01/03/2025 12:18 EDT Hourly Rounding Yes Promise to Return Yes 01/03/2025 11:50 EDT Hourly Rounding Yes Promise to Return Yes 01/03/2025 11:13 EDT Heart Rate Monitored 95 bpm SpO2 96 % 01/03/2025 11:13 EDT Systolic Blood Pressure 108 mmHg Diastolic Blood Pressure 71 mmHg Mean Arterial Pressure, Cuff 84 mmHg 01/03/2025 11:13 EDT Blood Pressure Location Left arm 01/03/2025 11:12 EDT Temperature Oral 36.8 DegC 01/03/2025 10:17 EDT Hourly Rounding Yes Promise to Return Yes 01/03/2025 9:21 EDT Hourly Rounding Yes Promise to Return Yes 01/03/2025 8:31 EDT Hourly Rounding Yes Promise to Return Yes 01/03/2025 7:39 EDT Heart Rate Monitored 104 bpm HI SpO2 96 % 01/03/2025 7:39 EDT Blood Pressure Location Left arm 01/03/2025 7:38 EDT Systolic Blood Pressure 113 mmHg Diastolic Blood Pressure 78 mmHg Mean Arterial Pressure, Cuff 90 mmHg 01/03/2025 7:38 EDT Temperature Oral 36.8 DegC 01/03/2025 7:00 EDT Respiratory Rate 18 br/min Hourly Rounding Yes Promise to Return Yes 01/03/2025 6:20 EDT Heart Rate Monitored 114 bpm HI SpO2 95 % 01/03/2025 6:19 EDT Systolic Blood Pressure 108 mmHg Diastolic Blood Pressure 78 mmHg Mean Arterial Pressure, Cuff 88 mmHg 01/03/2025 6:00 EDT Respiratory Rate 20 br/min Blood Pressure Location Left arm Hourly Rounding Yes Promise to Return Yes 01/03/2025 5:24 EDT Hourly Rounding Yes Promise to Return Yes 01/03/2025 4:00 EDT Hourly Rounding Yes Promise to Return Yes 01/03/2025 3:00 EDT Peripheral Pulse Rate 108 bpm HI Hourly Rounding Yes Promise to Return Yes 01/03/2025 2:30 EDT Temperature Oral 36.7 DegC Peripheral Pulse Rate 117 bpm HI Systolic Blood Pressure 109 mmHg Diastolic Blood Pressure 73 mmHg Blood Pressure Location Left arm SpO2 96 % 01/03/2025 2:00 EDT SpO2 100 % 01/03/2025 2:00 EDT Heart Rate Monitored 93 bpm 01/03/2025 2:00 EDT Respiratory Rate 18 br/min Systolic Blood Pressure 134 mmHg Diastolic Blood Pressure 99 mmHg HI Mean Arterial Pressure, Cuff 111 mmHg Hourly Rounding Yes Promise to Return Yes 01/03/2025 1:56 EDT Heart Rate Monitored 108 bpm HI 01/03/2025 1:56 EDT SpO2 95 % 01/03/2025 1:53 EDT SpO2 98 % 01/03/2025 1:53 EDT Heart Rate Monitored 125 bpm HI 01/03/2025 1:53 EDT Systolic Blood Pressure 98 mmHg Diastolic Blood Pressure 67 mmHg 01/03/2025 1:53 EDT Respiratory Rate 18 br/min Mean Arterial Pressure, Cuff 77 mmHg 01/03/2025 1:00 EDT SpO2 96 % 01/03/2025 1:00 EDT Heart Rate Monitored 119 bpm [place] 01/03/2025 1:00 EDT Respiratory Rate 18 br/min Systolic Blood Pressure 103 mmHg Diastolic Blood Pressure 69 mmHg Mean Arterial Pressure, Cuff 80 mmHg 01/03/2025 0:30 EDT SpO2 96 % 01/03/2025 0:30 EDT Heart Rate Monitored 111 bpm [place] 01/03/2025 0:30 EDT Respiratory Rate 16 br/min Systolic Blood Pressure 120 mmHg Diastolic Blood Pressure 87 mmHg Mean Arterial Pressure, Cuff 98 mmHg 01/03/2025 0:00 EDT Heart Rate Monitored 113 bpm [place] SpO2 97 % 01/03/2025 0:00 EDT Respiratory Rate 18 br/min Systolic Blood Pressure 123 mmHg Diastolic Blood Pressure 85 mmHg Mean Arterial Pressure, Cuff 98 mmHg 01/02/2025 23:00 EDT SpO2 96 % 01/02/2025 23:00 EDT Heart Rate Monitored 106 bpm [place] 01/02/2025 23:00 EDT Respiratory Rate 18 br/min Systolic Blood Pressure 124 mmHg Diastolic Blood Pressure 89 mmHg Mean Arterial Pressure, Cuff 101 mmHg 01/02/2025 22:10 EDT SpO2 98 % 01/02/2025 22:10 EDT Systolic Blood Pressure 121 mmHg Diastolic Blood Pressure 95 mmHg [place] 01/02/2025 22:10 EDT Heart Rate Monitored 122 bpm [place] Mean Arterial Pressure, Cuff 104 mmHg 01/02/2025 21:18 EDT Temperature Oral 37.0 DegC Peripheral Pulse Rate 112 bpm HI Respiratory Rate 22 br/min HI Systolic Blood Pressure 96 mmHg Diastolic Blood Pressure 76 mmHg SpO2 96 % Measurements from flowsheet : Measurements 01/03/2025 6:00 EDT Weight Measured 84.4 kg 01/03/2025 3:18 EDT Height/Length Measured 152.4 cm Body Mass Index Measured 35.35 kg/m2 Weight Measured 82.1 kg 01/03/2025 2:30 EDT Height/Length Measured 152.40 cm BSA Measured 1.89 m2 Body Mass Index Measured 36.34 kg/m2 Weight Measured 84.4 kg 01/02/2025 21:18 EDT Height/Length Measured 152.4 cm Height/Length Dosing 152.4 cm Weight Dosing 82.1 kg Body Mass Index Measured 35.35 kg/m2 Weight Measured 82.1 kg Airway: Mallampati classification: II (soft palate, fauces, uvula visible). Respiratory: Lungs are clear to auscultation, Respirations are non-labored. Cardiovascular: Regular rhythm. Plan [place] [employer]esthesi[employer] (ASA) physical status classification: Class II. Anesthetic Preoperative Plan: Anesthesia General, and -TIVA. Result Comment: Electronical ly Signed By: Kartik Chavez Jr., DO\.br\Date and Time Signed: 01/03/25 14:17 EDT INTERDISCIPLINARY NOTE - BENSON E BACCARAT MANAGER Observed: 01/03/2025 11:39 AM Status: F Source: [facility] Interdisciplinary Note - Benson e Cell Room Operator CM met with patient at bedside. Patient is from home with her two sons, one is an adult. Patient states she is independent with all self care, drives and does not use any DME in the home. Patient denies discharge needs at this time and states family will transport home at discharge. Patient confirms she has a PCP and follows with primary care out of [facility]. Plan is home when medically stable. Dr Douglass is attending and GI on consult. Possible DC after scope pending GI. CM to follow. Result Comment: Electronical ly Signed By: Godfrey Parker I\.br\Date and Time Signed: 01/03/25 11:42 EDT EGFR Collected: 6:42 AM Status: F Source: [facility] TYPE CODE TESTS RESULT OUT OF RANGE REFERENCE UNITS LAB [id number]([facility]) eGFR 83 Normal >=59 mL/min/1 .7 3 m2 Performed By: #### [id number] #### [facility] [address] [place] [address] BMP Collected: 01/03/2025 6:42 AM Status: F Source: [facility] TYPE CODE TESTS RESULT OUT OF RANGE REFERENCE UNITS LAB [id number](LOINC) Glucose Lvl 118 Normal 55-199 mg/d L LAB [id number](LOINC) BUN 5 Normal 5-21 mg/dL LAB [id number](LOINC) Creatinine 0.9 Normal 0.5-1.3 mg/dL LAB [id number](INC) BUN/Creat Ratio 6 Low 10-20 No Units LAB [id number](INC) Calcium Lvl 9.2 Normal 8.9-11.1 mg/ dL LAB [id number](INC) Sodium Lvl 138 Normal 135-145 mmol/ L LAB [id number]([facility]) Potassium Lvl 4.0 Normal 3.5-5.3 mm ol/L LAB [id number]([facility]) Chloride 105 Normal 101-111 mmol/L LAB [id number]([facility]) CO2 24 Normal 21-31 mmol/L LAB [id number]([facility]) AGAP 13 Normal 6-16 mEq/L Performed By: #### [id number] # ### [facility] [address] [place] [address] CBC W/ AUTO DIFF Collected: 5 6:42 AM Status: F Source: [facility] TYPE CODE TESTS RESULT OUT OF RANGE REFERENCE UNITS LAB [id number]([facility]) WBC 10.4 Normal 4.0-11.0 E9/L LAB [id number]([facility]) RBC 4.9 Normal 4.3-5.9 E12/L LAB [id number]([facility]) HGB 15.1 Normal 12.0-16.0 gm/dL LAB [id number]([facility]) Hct 43.8 Normal 34.0-46.0 % LAB [id number]([facility]) RDW 15.2 High 10.9-14.2 % LAB [id number]([facility]) MCH 30.9 Normal 27.0-34.0 pg LAB [id number]([facility]) MCHC 34.4 Normal 31.4-36.0 gm/dL LAB [id number](INC) MCV 89.7 Normal 80.0-100.0 fL LAB [id number](INC) MPV 7.7 Normal 6.4-10.8 fL LAB [id number](INC) Platelet 351.0 Normal 150.0-500.0 E9/ L LAB [id number]([facility]) Neutro Auto 71.8 Normal 36.0-75.0 % LAB [id number]([facility]) Lymph Auto 21.1 Normal 14.0-50.0 % LAB [id number](LOINC) [place] Auto 6.5 Normal 4.0-14.0 % LAB [id number](LOINC) Eos Auto 0.0 Normal 0.0-8.0 % LAB [id number](LOINC) Basophil Auto 0.6 Normal 0.0-2.0 % LAB [id number](LOINC) Neutro Absolute 7.4 Normal 2.0-7.5 E9/L LAB [id number](LOINC) Lymph Absolute 2.2 Normal 1.0-4.0 E9/L LAB [id number](LOINC) [place] Absolute 0.7 Normal 0.2-1.0 E9 /L LAB [id number](LOINC) Eos Absolute 0.0 Normal 0.0-0.5 E9/ L LAB [id number](INC) Basophil Absolute 0.1 Normal 0.0-0.2 E9/L Performed By: #### [id number] # ### [facility] [address] [place] [address] U BETAHCG QUAL Collected: 01/03/2025 6:30 AM Status: F Source: [facility] TYPE CODE TESTS RESULT OUT OF RANGE REFERENCE UNITS LAB [id number]([facility]) U beta hCG Ql Negative Normal Performed By: #### [id number] #### [facility] [address] [place] [address] UA WITH CULT RFLX Collected: 6:30 AM Status: F Source: [facility] TYPE CODE TESTS RESULT OUT OF RANGE REFERENCE UNITS LAB [id number](IN C) UA Spec Desc Clean Catch Normal LAB [id number](IN C) UA Color Yellow Normal Yellow Result Comment: Microscopic readings are only performed on those samples that meet specific criteria set forth by [facility]. LAB [id number](LOIN C) UA Clarity Clear Normal Clear LAB [id number](IN C) UA Spec Grav 1.035 Unknown 1.005-1.030 LAB [id number](LOIN C) UA pH 6.0 Unknown 5.0-9.0 LAB [id number](IN C) UA Protein 1+ Abnormal Negative mg/dL LAB [id number](LOIN C) UA Glucose Negative Normal Negative mg/dL LAB [id number](LOIN C) UA Ketones Trace Abnormal Negative mg/dL LAB [id number](LOIN C) UA Bili Negative Normal Negative mg/dL LAB [id number](LOIN C) UA Blood Negative Normal Negative mg/dL LAB [id number](LOIN C) UA Nitrite Negative Normal Negative mg/dL LAB [id number](LOIN C) UA Urobilinogen Negative Normal Negative mg/dL LAB [id number](LOIN C) UA Leuk Est Negative Normal Negative CD:68431 32443 LAB [id number](LOIN C) UA WBC 0-5 Normal 0-5 CD:25326 08170 LAB [id number](LOIN C) UA RBC 4-20 Abnormal 0-3 CD:58586 61836 LAB [id number](LOIN C) UA Squam Epithelial 3-4 Unknown CD:06660 41315 LAB [id number](LOIN C) UA Bacteria Trace Normal Trace /HPF LAB [id number](LOIN C) UA Mucous 4+ Abnormal Negative CD:18200 95707 LAB [id number](LOIN C) UA Hyal Cast 0-3 Normal 0-3 CD:10188 50965 Performed By: #### [id number] #### [facility] [address] [place] [address] HISTORY AND PHYSICAL Observed: 5 4:06 AM Status: C Source: [facility] History and Physical Chief Complaint Nausea and vomiting over a week, on and off. History of Present Illness 39yo female with a PMH gastric ulcers, GERD, bipolar affective disorder, daily marijuana use. Presented to the ED with intractable n/v and epigastric pain. States her symptoms have been going on for well over a week. No diarrhea or fever. Denies any blood in her vomit, but has occasional felt it has looked like coffee grounds. She was seen at [facility] on 12/26. Had a CT A/P then with no acute process identified. WBC then was 15.7K. States her symptoms have not improved at all since then; they have not worsened. Has a hx gastric ulcers 2y ago and states this feels very similar to then. Indicates she takes Protonix. Is also on Celebrex. She is not a diabetic, no hx gastroparesis. Does admit to smoking marijuana daily. ED Course: Vitals revealed tachycardia. No fever. WBC elevated at 15.3K (similar to where it was at at [facility] on 12/26). Her K+ is low at 3.4 and anion gap elevated at 19, indicating a degree of dehydration. Decision to re-CT her was decided against as she just had a CT on the 12/26 and indicated symptoms had not worsened since then. She has received multiple doses of anti-emetics as well as Morphine and Bentyl in the ED, but still continues to be bent over in pain and retching. Admitted for further symptom control. Review of Systems Constitutional: no fever, no chills, no sweats, + weakness Skin: no jaundice, no rash, no lesions, no petechiae ENMT: no ear pain, no sore throat, no congestion, no hoarseness Respiratory: no shortness of breath, no cough, no orthopnea, no wheezing Cardiovascular: no chest pain, no palpitations, no edema Gastrointestinal: as above Genitourinary: no dysuria, no hematuria Musculoskeletal: no trauma, no joint or muscle pain Neurologic: no headache, no dizziness, no weakness Psychiatric: no depression, no anxiety Heme/Lymph: no bleeding tendency, no bruising tendency Additional ROS info: Except as noted in the above Review of Systems and in the History of Present Illness all other systems have been reviewed and are negative or noncontributory. Scoring Ricardo Fall Risk Score: 30 (01/03/25) Physical Exam Vitals & Measurements T: 37.0 ???C(Oral) HR: 108(Peripheral) RR: 18 BP: 134/99 SpO2: 100% HT: 152.4 cm WT: 82.1 kg General: appears ill, sitting up in bed burping/dry heaving Skin: warm, dry, no rash Head: AT/NC Neck: Trachea midline, supple Eye: normal conjunctiva, sclera clear Cardiovascular: tachy S1S2, normal peripheral perfusion Respiratory: Lungs CTA, respirations labored, breath sounds equal, no w/r/r Chest wall: no deformity Gastrointestinal: soft, TTP most in the epigastric area and into the LUQ, no peritoneal sign, distended Extremities: no deformity, no edema Neurological: A&O, no focal deficits, normal speech Psychiatric: cooperative Lab Results WBC: 15.3 E9/L High (01/02/25:32:00) RBC: 5.7 E12/L (01/02/25:32:00) HGB: 17.3 gm/dL High (01/02/25:32:00) Hct: 50.4 % High (01/02/25:32:00) MCV: 88.6 fL (01/02/25:32:00) MCH: 30.4 pg (01/02/25::) MCHC: 34.3 gm/dL (01/02/25:32:00) RDW: 15.3 % High (01/02/25:32:00) Platelet: 404 E9/L (01/02/25::) MPV: 8 fL (01/02/25::) Neutro Auto: 69 % (01/02/25:32:) Lymph Auto: 24.2 % (01/02/25::) Carolina Auto: 5.8 % (01/02/25:32:) Eos Auto: 0.1 % (01/02/25::) Basophil Auto: 0.9 % (01/02/25:32:00) Neutro Absolute: 10.5 E9/L High (01/02/25::00) Lymph Absolute: 3.7 E9/L (01/02/25:32:00) [place] Absolute: 0.9 E9/L (01/02/25:32:00) Eos Absolute: 0 E9/L (01/02/25::00) Basophil Absolute: 0.1 E9/L (01/02/25:32:00) Glucose Lvl: 129 mg/dL (01/02/25:32:00) BUN: 6 mg/dL (01/02/25::00) Creatinine: 1.1 mg/dL (01/02/25::00) eGFR: 65 mL/min/1.73 m2 (01/02/25:32:00) BUN/Creat Ratio: 6 Low (01/02/25:32:00) Sodium Lvl: 140 mmol/L (01/02/25:32:00) Potassium Lvl: 3.4 mmol/L Low (01/02/25:32:00) Chloride: 100 mmol/L Low (01/02/25:32:00) CO2: 24 mmol/L (01/02/25:32:00) AGAP: 19 mEq/L High (01/02/25:32:00) Calcium Lvl: 10.4 mg/dL (01/02/25:32:00) Alk Phos: 80 Int._Unit/L (01/02/25:32:00) ALT: 41 Int._Unit/L (01/02/25:32:) AST: 33 Int._Unit/L (01/02/25::) Total Protein: 8.5 gm/dL High (01/02/25:32:00) Albumin Lvl: 5.5 gm/dL High (01/02/25:32:) Globulin: 3 gm/dL (01/02/25::) A/G Ratio: 1.8 (01/02/25:32:00) Bili Total: 0.6 mg/dL (01/02/25:32:00) Bili Direct: 0 mg/dL (01/02/25:32:) Bili Indirect: 0.6 mg/dL (01/02/25:32:00) Lipase Lvl: 20 unit/L (01/02/25:32:00) Assessment/Plan 39yo female with a PMH gastric ulcers, GERD, bipolar affective disorder, daily marijuana use. 1. Intractable nausea and vomiting (R11.2: Nausea with vomiting, unspecified) Presents with a >1w history of intractable n/v and epigastric pain. Differential includes PUD versus cannabis hyperemesis syndrome. Continue with Zofran prn pain. Did just receive a 2nd dose of Phenergan. s/p Capsaicin cream in the ED Ordered Morphine IV prn pain Ordered Protonix BID NPO Consult GI for EGD due to hx gastric ulcers, patient on Celebrex 2. Leukocytosis (D72.829: Elevated white blood cell count, unspecified) Likely reactive. Had negative CT A/P on 12/26 at [facility]. 3. Dehydration (E86.0: Dehydration) Due to GI losses. Ordered NS at 125 cc/hr 4. Marijuana use (F12.90: Cannabis use, unspecified, uncomplicated) Admits to daily Marijuana use. Cannabis hyperemesis high on differential. 5. Mixed bipolar affective disorder, mild (F31.61: Bipolar disorder, current episode mixed, mild) Restart home meds when able to take po. 6. History of gastric ulcer (Z87.11: Personal history of peptic ulcer disease) Protonix. GI consult for EGD Attestation Anticipate <2MN length of stay. Problem List/Past Medical History Ongoing Acid reflux Acute hypokalemia Antral erosion Antral ulcer Anxiety disorder C. difficile colitis Chronic post-traumatic stress disorder (PTSD) Clostridium difficile diarrhea Diarrhea Epigastric pain Family history of colon cancer Hemorrhoids History of stomach ulcers Hx of gastric ulcer Hypomagnesemia Insomnia Intractable nausea and vomiting Leukocytosis LFT elevation Loose stools Marijuana use Mixed bipolar affective disorder, mild Nausea Obesity Smoker Weight loss Historical Alcohol use during Alcohol use during Procedure/Surgical History Colonoscopy (08/25/2022), Esophagogastroduodenoscopy (02/09/2022), EGD - Esophagogastroduodenoscopy (10/09/2021), Tear of anterior cruciate ligament of left knee (2001). Medications Inpatient morphine 4 mg/mL Inj, 4 mg= 1 mL, IV Push, q3hr, PRN NS 1000 mL Soln-IV 1,000 mL, 1000 mL, IV pantoprazole 40 mg IV Inj, 40 mg= 10 mL, IV Push, q12hr potassium chloride additive + premix generic diluent 100 mL Zofran 4 mg/2 mL Injection, 4 mg= 2 mL, IV Push, q4hr, PRN Home Bentyl 10 mg Cap, 10 mg= 1 cap(s), Oral, QID, PRN buPROPion 300 mg/24 hours ER Tab, 300 mg= 1 tab(s), Oral, Daily busPIRone, 10 mg, Oral, BID, Not taking: Not taking celecoxib 200 mg Cap, 200 mg= 1 cap(s), Oral, Daily cloNIDine 0.1 mg tab, See Instructions folic acid 1 mg Tab, 1 mg= 1 tab(s), Oral, Daily, Not taking: Not taking gabapentin 100 mg Cap, 200 mg= 2 cap(s), Oral, BID Imitrex 100 mg Tab, 100 mg= 1 tab(s), Oral, Daily, PRN melatonin 3 mg Tab, 3 mg= 1 tab(s), Oral, Bedtime, PRN Metoprolol tartrate 25 mg Tab, Oral, BID ondansetron 4 mg Dis Tab, 4 mg= 1 tab(s), Oral, q6hr, PRN Phenergan 25 mg Supp, 25 mg= 1 supp, Rectal, q6hr, PRN, Not taking: Not taking promethazine 25 mg Tab, 25 mg= 1 tab(s), Oral, q6hr, PRN, Not taking: Not taking Protonix 40 mg Tab-DR, 40 mg= 1 tab(s), Oral, Daily Rexulti 3 mg oral tablet, 3 mg= 1 tab(s), Oral, Daily tiZANidine 4 mg Tab, 4 mg= 1 tab(s), Oral, Bedtime Vitamin B12 1000 mcg Tab, 1000 mcg= 1 tab(s), Oral, Daily, Still taking, not as prescribed: Once a week, Vyvanse 20 mg oral capsule Allergies Augmentin (UNK) amoxicillin (Unknown) Reglan Vraylar (UNK) iothalamate (Unknown) Social History Alcohol - Denies Alcohol Use, 02/02/2011 Current, Beer, 1-2 times per month, 12/08/2018 Employment/School laid off, Previous employment/school: Has been laid off work since 10/2019 due to Covid 19 virus 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 Living situation: Home/Independent., 12/08/2018 Substance Abuse - Denies Substance Abuse, 02/02/2011 Current, Marijuana, 01/02/2025 Current, Marijuana, Daily, 08/15/2019 Tobacco - Medium Risk, 11/13/2021 Former smoker, quit more than 30 days ago Tobacco Use:., 01/02/2025 Former smoker, quit more than 30 days ago Tobacco Use:. Never Smokeless Tobacco Use:. Cigarettes, 10/22/2022 Former smoker, quit more than 30 days ago Tobacco Use:. Never, Current vaping or e-cigarette use Smokeless Tobacco Use:. Cigarettes, 07/30/2022 Former smoker, quit more than 30 days ago Tobacco Use:. Vaping, 20 year(s). Started age 18.0 Years. Stopped age 36 Years. Previous treatment: None., 12/24/2021 Former smoker, quit more than 30 days ago, vapes Tobacco Use:. Current vaping or e-cigarette use Smokeless Tobacco Use:. Vaping, Ready to change: No. Household tobacco concerns: Yes. Yes, 03/20/2020 Family History Alcoholism: Mother. Drug addiction: Mother and Brother. Primary malignant neoplasm of colon: Grandparent. Immunizations Vaccine Date Status Comments SARSCoV2 mRNA(aekdpycxo-nuar-avhnfn) vac 07/04/2022 Recorded 2022-07-30: TPVALL SARSCoV2 mRNA(nxwxnmxmn-hpdo-pdbpof) vac 06/13/2022 Recorded 2022-07-30: TPVALL influenza virus vaccine, inactivated - Not Given Patient Refuses influenza virus vaccine, inactivated - Not Given Patient Refuses diphtheria/pertussis, acel/tetanus adult 02/03/2011 Given Other (see comment) measles/mumps/rubella virus vaccine 02/14/1997 Recorded Hib, unspecified formulation 04/24/1987 Recorded measles/mumps/rubella virus vaccine 06/18/1986 Recorded Separate progress note was not done due to patient was admitted after midnight. I did see patient patient independently this morning. Patient was resting in bed. Patient had stated pain had improved with medication. Patient scheduled for EGD later today. Agree with assessment and plan as above. Result Comment: Electronical ly Signed By: Aravind Douglass DO\.br\Date and Time Signed: 01/03/25 09:59 EDT HISTORY AND PHYSICAL Observed: 5 4:06 AM Status: F Source: [facility] History and Physical Chief Complaint Nausea and vomiting over a week, on and off. History of Present Illness 39yo female with a PMH gastric ulcers, GERD, bipolar affective disorder, daily marijuana use. Presented to the ED with intractable n/v and epigastric pain. States her symptoms have been going on for well over a week. No diarrhea or fever. Denies any blood in her vomit, but has occasional felt it has looked like coffee grounds. She was seen at [facility] on 12/26. Had a CT A/P then with no acute process identified. WBC then was 15.7K. States her symptoms have not improved at all since then; they have not worsened. Has a hx gastric ulcers 2y ago and states this feels very similar to then. Indicates she takes Protonix. Is also on Celebrex. She is not a diabetic, no hx gastroparesis. Does admit to smoking marijuana daily. ED Course: Vitals revealed tachycardia. No fever. WBC elevated at 15.3K (similar to where it was at at [facility] on 12/26). Her K+ is low at 3.4 and anion gap elevated at 19, indicating a degree of dehydration. Decision to re-CT her was decided against as she just had a CT on the 12/26 and indicated symptoms had not worsened since then. She has received multiple doses of anti-emetics as well as Morphine and Bentyl in the ED, but still continues to be bent over in pain and retching. Admitted for further symptom control. Review of Systems Constitutional: no fever, no chills, no sweats, + weakness Skin: no jaundice, no rash, no lesions, no petechiae ENMT: no ear pain, no sore throat, no congestion, no hoarseness Respiratory: no shortness of breath, no cough, no orthopnea, no wheezing Cardiovascular: no chest pain, no palpitations, no edema Gastrointestinal: as above Genitourinary: no dysuria, no hematuria Musculoskeletal: no trauma, no joint or muscle pain Neurologic: no headache, no dizziness, no weakness Psychiatric: no depression, no anxiety Heme/Lymph: no bleeding tendency, no bruising tendency Additional ROS info: Except as noted in the above Review of Systems and in the History of Present Illness all other systems have been reviewed and are negative or noncontributory. Scoring Ricardo Fall Risk Score: 30 (01/03/25) Physical Exam Vitals & Measurements T: 37.0 ???C(Oral) HR: 108(Peripheral) RR: 18 BP: 134/99 SpO2: 100% HT: 152.4 cm WT: 82.1 kg General: appears ill, sitting up in bed burping/dry heaving Skin: warm, dry, no rash Head: AT/NC Neck: Trachea midline, supple Eye: normal conjunctiva, sclera clear Cardiovascular: tachy S1S2, normal peripheral perfusion Respiratory: Lungs CTA, respirations labored, breath sounds equal, no w/r/r Chest wall: no deformity Gastrointestinal: soft, TTP most in the epigastric area and into the LUQ, no peritoneal sign, distended Extremities: no deformity, no edema Neurological: A&O, no focal deficits, normal speech Psychiatric: cooperative Lab Results WBC: 15.3 E9/L High (01/02/25:32:00) RBC: 5.7 E12/L (01/02/25::) HGB: 17.3 gm/dL High (01/02/25:32:00) Hct: 50.4 % High (01/02/25::) MCV: 88.6 fL (01/02/25::) MCH: 30.4 pg (01/02/25::) MCHC: 34.3 gm/dL (01/02/25:32:) RDW: 15.3 % High (01/02/25::) Platelet: 404 E9/L (01/02/25:32:00) MPV: 8 fL (01/02/25:32:) Neutro Auto: 69 % (01/02/25:32:) Lymph Auto: 24.2 % (01/02/25:32:) [place] Auto: 5.8 % (01/02/25:32:) Eos Auto: 0.1 % (01/02/25::) Basophil Auto: 0.9 % (01/02/25::) Neutro Absolute: 10.5 E9/L High (01/02/25:32:00) Lymph Absolute: 3.7 E9/L (01/02/25:32:00) [place] Absolute: 0.9 E9/L (01/02/25:32:) Eos Absolute: 0 E9/L (01/02/25::00) Basophil Absolute: 0.1 E9/L (01/02/25:32:00) Glucose Lvl: 129 mg/dL (01/02/25:32:00) BUN: 6 mg/dL (01/02/25:32:00) Creatinine: 1.1 mg/dL (01/02/25::) eGFR: 65 mL/min/1.73 m2 (01/02/25) BUN/Creat Ratio: 6 Low (01/02/25::) Sodium Lvl: 140 mmol/L (01/02/25::) Potassium Lvl: 3.4 mmol/L Low (01/02/25:) Chloride: 100 mmol/L Low (01/02/25::) CO2: 24 mmol/L (01/02/25::) AGAP: 19 mEq/L High (01/02/25) Calcium Lvl: 10.4 mg/dL (01/02/25) Alk Phos: 80 Int._Unit/L (01/02/25::) ALT: 41 Int._Unit/L (01/02/25) AST: 33 Int._Unit/L (01/02/25:) Total Protein: 8.5 gm/dL High (01/02/25::) Albumin Lvl: 5.5 gm/dL High (01/02/25:) Globulin: 3 gm/dL (01/02/25:) A/G Ratio: 1.8 (01/02/25::) Bili Total: 0.6 mg/dL (01/02/25::) Bili Direct: 0 mg/dL (01/02/25::00) Bili Indirect: 0.6 mg/dL (01/02/25::) Lipase Lvl: 20 unit/L (01/02/25::) Assessment/Plan 39yo female with a PMH gastric ulcers, GERD, bipolar affective disorder, daily marijuana use. 1. Intractable nausea and vomiting (R11.2: Nausea with vomiting, unspecified) Presents with a >1w history of intractable n/v and epigastric pain. Differential includes PUD versus cannabis hyperemesis syndrome. Continue with Zofran prn pain. Did just receive a 2nd dose of Phenergan. s/p Capsaicin cream in the ED Ordered Morphine IV prn pain Ordered Protonix BID NPO Consult GI for EGD due to hx gastric ulcers, patient on Celebrex 2. Leukocytosis (D72.829: Elevated white blood cell count, unspecified) Likely reactive. Had negative CT A/P on 12/26 at [facility]. 3. Dehydration (E86.0: Dehydration) Due to GI losses. Ordered NS at 125 cc/hr 4. Marijuana use (F12.90: Cannabis use, unspecified, uncomplicated) Admits to daily Marijuana use. Cannabis hyperemesis high on differential. 5. Mixed bipolar affective disorder, mild (F31.61: Bipolar disorder, current episode mixed, mild) Restart home meds when able to take po. 6. History of gastric ulcer (Z87.11: Personal history of peptic ulcer disease) Protonix. GI consult for EGD Attestation Anticipate <2MN length of stay. Problem List/Past Medical History Ongoing Acid reflux Acute hypokalemia Antral erosion Antral ulcer Anxiety disorder C. difficile colitis Chronic post-traumatic stress disorder (PTSD) Clostridium difficile diarrhea Diarrhea Epigastric pain Family history of colon cancer Hemorrhoids History of stomach ulcers Hx of gastric ulcer Hypomagnesemia Insomnia Intractable nausea and vomiting Leukocytosis LFT elevation Loose stools Marijuana use Mixed bipolar affective disorder, mild Nausea Obesity Smoker Weight loss Historical Alcohol use during Alcohol use during Procedure/Surgical History Colonoscopy (08/25/2022), Esophagogastroduodenoscopy (02/09/2022), EGD - Esophagogastroduodenoscopy (10/09/2021), Tear of anterior cruciate ligament of left knee (2001). Medications Inpatient morphine 4 mg/mL Inj, 4 mg= 1 mL, IV Push, q3hr, PRN NS 1000 mL Soln-IV 1,000 mL, 1000 mL, IV pantoprazole 40 mg IV Inj, 40 mg= 10 mL, IV Push, q12hr potassium chloride additive + premix generic diluent 100 mL Zofran 4 mg/2 mL Injection, 4 mg= 2 mL, IV Push, q4hr, PRN Home Bentyl 10 mg Cap, 10 mg= 1 cap(s), Oral, QID, PRN buPROPion 300 mg/24 hours ER Tab, 300 mg= 1 tab(s), Oral, Daily busPIRone, 10 mg, Oral, BID, Not taking: Not taking celecoxib 200 mg Cap, 200 mg= 1 cap(s), Oral, Daily cloNIDine 0.1 mg tab, See Instructions folic acid 1 mg Tab, 1 mg= 1 tab(s), Oral, Daily, Not taking: Not taking gabapentin 100 mg Cap, 200 mg= 2 cap(s), Oral, BID Imitrex 100 mg Tab, 100 mg= 1 tab(s), Oral, Daily, PRN melatonin 3 mg Tab, 3 mg= 1 tab(s), Oral, Bedtime, PRN Metoprolol tartrate 25 mg Tab, Oral, BID ondansetron 4 mg Dis Tab, 4 mg= 1 tab(s), Oral, q6hr, PRN Phenergan 25 mg Supp, 25 mg= 1 supp, Rectal, q6hr, PRN, Not taking: Not taking promethazine 25 mg Tab, 25 mg= 1 tab(s), Oral, q6hr, PRN, Not taking: Not taking Protonix 40 mg Tab-DR, 40 mg= 1 tab(s), Oral, Daily Rexulti 3 mg oral tablet, 3 mg= 1 tab(s), Oral, Daily tiZANidine 4 mg Tab, 4 mg= 1 tab(s), Oral, Bedtime Vitamin B12 1000 mcg Tab, 1000 mcg= 1 tab(s), Oral, Daily, Still taking, not as prescribed: Once a week, Vyvanse 20 mg oral capsule Allergies Augmentin (UNK) amoxicillin (Unknown) Reglan Vraylar (UNK) iothalamate (Unknown) Social History Alcohol - Denies Alcohol Use, 02/02/2011 Current, Beer, 1-2 times per month, 12/08/2018 Employment/School laid off, Previous employment/school: Has been laid off work since 10/2019 due to Covid 19 virus 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 Living situation: Home/Independent., 12/08/2018 Substance Abuse - Denies Substance Abuse, 02/02/2011 Current, Marijuana, 01/02/2025 Current, Marijuana, Daily, 08/15/2019 Tobacco - Medium Risk, 11/13/2021 Former smoker, quit more than 30 days ago Tobacco Use:., 01/02/2025 Former smoker, quit more than 30 days ago Tobacco Use:. Never Smokeless Tobacco Use:. Cigarettes, 10/22/2022 Former smoker, quit more than 30 days ago Tobacco Use:. Never, Current vaping or e-cigarette use Smokeless Tobacco Use:. Cigarettes, 07/30/2022 Former smoker, quit more than 30 days ago Tobacco Use:. Vaping, 20 year(s). Started age 18.0 Years. Stopped age 36 Years. Previous treatment: None., 12/24/2021 Former smoker, quit more than 30 days ago, vapes Tobacco Use:. Current vaping or e-cigarette use Smokeless Tobacco Use:. Vaping, Ready to change: No. Household tobacco concerns: Yes. Yes, 03/20/2020 Family History Alcoholism: Mother. Drug addiction: Mother and Brother. Primary malignant neoplasm of colon: Grandparent. Immunizations Vaccine Date Status Comments SARSCoV2 mRNA(adnzgsxlq-ivyq-iuufpt) vac 07/04/2022 Recorded 2022-07-30: TPVALL SARSCoV2 mRNA(tcwekugry-mysa-qyfbpz) vac 06/13/2022 Recorded 2022-07-30: TPVALL influenza virus vaccine, inactivated - Not Given Patient Refuses influenza virus vaccine, inactivated - Not Given Patient Refuses diphtheria/pertussis, acel/tetanus adult 02/03/2011 Given Other (see comment) measles/mumps/rubella virus vaccine 02/14/1997 Recorded Hib, unspecified formulation 04/24/1987 Recorded measles/mumps/rubella virus vaccine 06/18/1986 Recorded Result Comment: Electronical ly Signed By: Guanaco JUAREZ, Saundra\.anne\Date and Time Signed: 01/03/25 04:06 EDT ED PATIENT EDUCATION NOTE Observed: 08/2024 2:43 AM Status: C Source: [facility] ED Patient Education Note ED PATIENT SUMMARY Observed: 01/03/2025 2:43 AM Status: C Source: [facility] ED Patient Summary [place] [id number] Patient Discharge Instructions Person Information Name: BRIANNA BYERS Age: 39 Years Arrival Date: 01/02/2025 21:13:34 Discharge Diagnosis: 1:Intractable nausea and vomiting; 2:Marijuana use; 3:History of gastric ulcer; 4:Leukocytosis Primary Care Physician: GINNY PATEL CNP Provider Information Primary Provider: Verónica Yates DO [employer]:Brian Aguilar PA-C The exam and treatment you received in the Emergency Department were for an urgent problem and are not intended as complete care. It is important that you follow up with a doctor, nurse practitioner, or physician???s assistant chief train dispatcher for ongoing care. If your symptoms become worse or you do not improve as expected and you are unable to reach your usual health care provider, you should return to the Emergency Department. We are available 24 hours a day. BRIANNA BYERS has been given the following list of patient education materials, prescriptions and follow-up instructions: Follow-up Instructions: In the event that this physician does not participate in your insurance network, please consult with your insurance company to find a nearby participating provider. Patient Education Materials: A MESSAGE TO ALL PATIENTS REGARDING OPIOIDS PRESCRIPTION OPIOIDS: WHAT YOU NEED TO KNOW Prescription opioids can be used to help relieve trzcizdw-ev-rjvqnb pain and are often prescribed following a [...] as well, even when taken as directed: ??? Tolerance???meaning you might need to take more of the medication for the same pain relief ??? Physical dependence???meaning you have symptoms of withdrawal when a medication is stopped ??? Increased sensitivity to pain ??? Constipation ??? Nausea, vomiting, and dry mouth ??? Sleepiness and dizziness ??? Confusion ??? Depression ??? Low levels of testosterone that can result in lower sex drive, energy, and strength ??? Itching and sweating RISKS ARE GREATER WITH: ??? History of drug misuse, substance use disorder, or overdose ??? Mental health conditions (such as depression or anxiety) ??? Sleep apnea ??? Older age (65 years and older) ??? Avoid alcohol while taking prescription opioids. Also, unless specifically advised by your health care provider, medications to avoid include: ??? Benzodiazepines (such as Xanax or Valium) ??? Muscle relaxants (such as Soma or Flexeril) ??? Hypnotics (such as Ambien or Lunesta) ??? Other prescription opioids KNOW YOUR OPTIONS Talk to your health care provider about ways to manage your pain that don???t involve prescription opioids. Some of these options may actually work better and have fewer risks and side effects. Options may include: ??? Pain relievers such as acetaminophen, ibuprofen, and naproxen ??? Some medication that are also used for depression or seizures ??? Physical therapy and exercise ??? Cognitive behavioral therapy, a psychological, goal-directed approach, in which patients learn how to modify physical, behavioral, and emotional triggers of pain and stress. IF YOU ARE PRESCRIBED OPIOIDS FOR PAIN: ??? Never take opioids in greater amounts or more often than prescribed. ??? Follow up with your primary health care provider. o Work together to create a plan on how to manage your pain. o Talk about ways to help manage your pain that don???t involve prescription opioids. o Talk about any and all concerns and side effects. ??? Help prevent misuse and abuse o Never sell or share prescription opioids. o Never use another person???s prescription opioids. ??? Store prescription opioids in a secure place and out of reach of others (this may include visitors, children, friends, and family). ??? Safely dispose of unused prescription opioids: Find your community drug take-back program or your pharmacy mail-back program, or flush them down the toilet, following guidance from the Food and Drug Administration (www.fda.gov/Drugs/ResourcesForYou). ??? Visit www.cdc.gov/drugoverdose to learn about the risks of opioids abuse and overdose. ??? If you believe you may be struggling with addiction, tell your health career development coordinator and ask for guidance or call [facility]???S National Helpline at 6-233-077-HELP. v Source: US Department of Health and Human Services/Center for Disease Control & Prevention [facility] Medications Given: Medication Dose Route droperidol 2.50 mg IV Push Right Antecubit [place] diphenhydrAMINE 25.00 mg IV Push Right Antecubit [place] dicyclomine 20.00 mg IntraMuscular Right Thigh famotidine 20.00 mg IV Push Right Antecubit [place] Sodium Chloride 0.9% intravenous solution 50.00 mL IV Piggyback Right Antecubit [place] promethazine 25.00 mg IV Piggyback Right Antecubit [place] morphine 4.00 mg IV Push Right Antecubit [place] ondansetron 4.00 mg IV Push Right Antecubit [place] acetaminophen 1000.00 mg IV Piggyback Right Antecubit [place] capsaicin topical 1.00 chris Topical Medication Information: Medications to Continue with No Changes Other Medications busPIRone 10 Milligram By Mouth 2 times a day. cyanocobalamin (Vitamin B12 1000 mcg Tab) 1 Tablets By Mouth every day. Refills: 0. dicyclomine (Bentyl 10 mg Cap) 1 Capsules By Mouth 4 times a day as needed Other (see comment). For abdominal cramping. Refills: 0. folic acid (folic acid 1 [...] Tablets By Mouth every day. Refills: 0. promethazine (Phenergan 25 mg Supp) 1 Suppositories By rectum every 6 hours as needed Nausea/Vomiting. Refills: 0. promethazine (promethazine 25 mg Tab) 1 Tablets By Mouth every 6 hours as needed as needed for nausea/vomiting. Refills: 0. sumatriptan (Imitrex 100 mg Tab) 1 Tablets By Mouth every day as needed as needed for migraine headache. Comment: Patient Portal You may access all of your results and other medical record information on our secure patient portal. If you are not signed up for this yet, please contact [employer] at [phone] to get signed up today. LIZBETH Award Nomination The LIZBETH (Diseases Attacking the Immune SYstem) Award is an international recognition program that honors and celebrates the skillful, compassionate care nurses provide every day. Anyone who experiences or observes amazing care being provided by a nurse is encouraged to submit a nomination. To nominate your nurse, use your smart phone to scan the QR code below. Language Information Language assistance services are available as needed. You may receive a survey from [employer] asking you to rate your care experience. Your feedback is important and will help us understand what we do well and how we can improve the quality of care we provide to you, your loved ones and our community. It???s an honor to serve you. Thank you for choosing [facility] Patient Education Materials: JAMA Rao AMANDA L , have received the following patient education materials/instructions and have verbalized understanding: Patient Education Materials: Follow-up Instructions: Patient Signature Date Clinician/Nurse Signature Date 01/03/2025 02:43:08 ED CLINICAL SUMMARY Observed: 01/03/2025 2:43 AM Status: C Source: [facility] ED Clinical Summary [address] [address] ED Clinical Summary Person Information Name: BRIANNA BYERS [facility] Age: 39 Years : 1985 Sex: Female Language: Somali PCP: GINNY PATEL CNP Marital Status: Single Visit Id: Visit Reason: Vomiting; Nausea; Abdominal pain; PER PATIENT, ANOTHER STOMACH ULCER, N/V, ABD PAIN, SWEATING Speciality: Acuity: 2 Enc Type: Observation Med Service: Medical Arrival: 01/02/2025 21:13:34 Discharge: LOS: 000 05:30 Checkin: 01/02/2025 21:13:34 Checkout: 01/03/2025 02:43:05 Dispo Type: Admitted as IP to this [facility] EVENTS: Event Name Event Status Request Date/Time Start Date/Time Complete Date/Time Arrive Complete 01/02/2025 21:13:34 01/02/2025 21:13:34 01/02/2025 21:13:34 Document Home Meds Request 01/02/2025 21:13:34 Triage Complete 01/02/2025 21:13:34 01/02/2025 21:23:30 01/02/2025 21:23:30 Bed Assign Complete 01/02/2025 21:16:59 01/02/2025 21:16:59 01/02/2025 21:16:59 Dr Exam Complete 01/02/2025 21:16:59 01/02/2025 21:18:15 01/02/2025 21:18:15 RN Exam Complete 01/02/2025 21:16:59 01/02/2025 21:34:31 01/02/2025 21:34:31 Registration Complete 01/02/2025 21:18:15 01/02/2025 21:25:37 01/02/2025 21:25:37 Dr Exam Complete 01/02/2025 21:20:50 01/02/2025 21:20:50 01/02/2025 21:20:50 Isolation Screening Request 01/02/2025 21:23:31 Pending Labs Request 01/02/2025 21:25:13 Lab Complete 01/02/2025 21:25:13 01/02/2025 22:13:13 Reg Complete Request 01/02/2025 21:25:37 Reg Bed Request Complete 01/02/2025 21:25:37 01/02/2025 21:25:37 01/02/2025 21:25:37 Meds Admin Complete 01/02/2025 21:26:37 01/02/2025 21:32:08 Pending Labs Request 01/02/2025 21:28:45 Lab Request 01/02/2025 21:28:45 Urine Collect Request 01/02/2025 21:28:45 Pending Labs Complete 01/02/2025 21:33:07 01/02/2025 21:33:07 01/02/2025 21:59:37 Lab Complete 01/02/2025 21:33:07 01/02/2025 21:33:07 01/02/2025 21:59:37 Meds Admin Complete 01/02/2025 22:00:12 01/02/2025 22:08:17 Pending Labs Complete 01/02/2025 22:13:06 01/02/2025 22:13:06 01/02/2025 22:13:07 Meds Admin Complete 01/02/2025 22:46:06 01/02/2025 22:59:24 Meds Admin Complete 01/02/2025 22:49:06 01/02/2025 22:59:25 Meds Admin Complete 01/02/2025 23:49:30 01/03/2025 00:03:47 Meds Admin Complete 01/03/2025 00:07:00 01/03/2025 00:13:09 Observation Request 01/03/2025 00:38:17 Patient Care Request 01/03/2025 00:38:17 Patient Care Request 01/03/2025 00:38:18 Patient Care Request 01/03/2025 00:38:18 Patient Care Request 01/03/2025 00:38:20 Patient Care Request 01/03/2025 00:38:20 ADDRESS: [facility] [address] [id number] PHYS DOC NOTES: MEDICAL INFORMATION: Prescriptions Given: Medications to Continue with No Changes Other Medications busPIRone 10 Milligram By Mouth 2 times a day. cyanocobalamin (Vitamin B12 1000 mcg Tab) 1 Tablets By Mouth every day. Refills: 0. dicyclomine (Bentyl 10 mg Cap) 1 Capsules By Mouth 4 times a day as needed Other (see comment). For abdominal cramping. Refills: 0. folic acid (folic acid 1 [...] Tablets By Mouth every day. Refills: 0. promethazine (Phenergan 25 mg Supp) 1 Suppositories By rectum every 6 hours as needed Nausea/Vomiting. Refills: 0. promethazine (promethazine 25 mg Tab) 1 Tablets By Mouth every 6 hours as needed as needed for nausea/vomiting. Refills: 0. sumatriptan (Imitrex 100 mg Tab) 1 Tablets By Mouth every day as needed as needed for migraine headache. PATIENT EDUCATION INFORMATION: Instructions: Follow up: DIAGNOSIS: 1:Intractable nausea and vomiting; 2:Marijuana use; 3:History of gastric ulcer; 4:Leukocytosis EXTRA BLUE Collected: 01/02/2025 9:32 PM Status: F Source: [facility] TYPE CODE TESTS RESULT OUT OF RANGE REFERENCE UNITS LAB CD:[id number](L OINC) Tube Collected Plasma Yes Unknown Performed By: #### [id number] #### [facility] [address] [place] [address] HEP FUNC PANEL Collected: 9:32 PM Status: F Source: [facility] TYPE CODE TESTS RESULT OUT OF RANGE REFERENCE UNITS LAB [id number](LOINC) ALT 41 Normal 6-46 Int._Uni t /L LAB [id number]([facility]) AST 33 Normal 5-43 Int._Uni t /L LAB [id number]([facility]) Albumin Lvl 5.5 High 3.3-5.0 gm/d L LAB [id number]([facility]) Globulin 3.0 Normal 1.4-4.0 gm/dL LAB [id number]([facility]) A/G Ratio 1.8 Normal 1.1-2.2 LAB [id number]([facility]) Alk Phos 80 Normal 21-98 Int._Un it /L LAB [id number]([facility]) Bili Direct 0.0 Normal 0.0-0.4 mg/d L LAB [id number]([facility]) Bili Indirect 0.6 Normal 0.1-0.9 mg /dL LAB [id number]([facility]) Bili Total 0.6 Normal 0.0-1.1 mg/dL LAB [id number]([facility]) Total Protein 8.5 High 6.0-7.8 gm /dL Performed By: #### [id number] # ### [facility] [address] [place] [address] LIPASE LEVEL Collected: 9:32 PM Status: F Source: [facility] TYPE CODE TESTS RESULT OUT OF RANGE REFERENCE UNITS LAB [id number]([facility]) Lipase Lvl 20 Normal 13-58 unit/ L Performed By: #### [id number] # ### [facility] [address] [place] [address] EGFR Collected: 9:32 PM Status: F Source: [facility] TYPE CODE TESTS RESULT OUT OF RANGE REFERENCE UNITS LAB [id number]([facility]) eGFR 65 Normal >=59 mL/min/1 .7 3 m2 Performed By: #### [id number] #### [facility] [address] [place] [address] BMP Collected: 01/02/2025 9:32 PM Status: F Source: [facility] TYPE CODE TESTS RESULT OUT OF RANGE REFERENCE UNITS LAB [id number]([facility]) Glucose Lvl 129 Normal 55-199 mg/d L LAB [id number]([facility]) BUN 6 Normal 5-21 mg/dL LAB [id number]([facility]) Creatinine 1.1 Normal 0.5-1.3 mg/dL LAB [id number]([facility]) BUN/Creat Ratio 6 Low 10-20 No Units LAB [id number]([facility]) Calcium Lvl 10.4 Normal 8.9-11.1 mg/ dL LAB [id number]([facility]) Sodium Lvl 140 Normal 135-145 mmol/ L LAB [id number]([facility]) Potassium Lvl 3.4 Low 3.5-5.3 mm ol/L LAB [id number]([facility]) Chloride 100 Low 101-111 mmol/L LAB [id number]([facility]) CO2 24 Normal 21-31 mmol/L LAB [id number]([facility]) AGAP 19 High 6-16 mEq/L Performed By: #### [id number] # ### [facility] [address] [place] [address] CBC W/ AUTO DIFF Collected: 5 9:32 PM Status: F Source: [facility] TYPE CODE TESTS RESULT OUT OF RANGE REFERENCE UNITS LAB [id number]([facility]) WBC 15.3 High 4.0-11.0 E9/L Result Comment: Peripheral s mear review performed. LAB [id number]([facility]) RBC 5.7 Normal 4.3-5.9 E12/L LAB [id number]([facility]) HGB 17.3 High 12.0-16.0 gm/dL LAB [id number]([facility]) Hct 50.4 High 34.0-46.0 % LAB [id number]([facility]) RDW 15.3 High 10.9-14.2 % LAB [id number]([facility]) MCH 30.4 Normal 27.0-34.0 pg LAB [id number]([facility]) MCHC 34.3 Normal 31.4-36.0 gm/dL LAB [id number]([facility]) MCV 88.6 Normal 80.0-100.0 fL LAB [id number]([facility]) MPV 8.0 Normal 6.4-10.8 fL LAB [id number]([facility]) Platelet 404.0 Normal 150.0-500.0 E9/ L LAB [id number]([facility]) Neutro Auto 69.0 Normal 36.0-75.0 % LAB [id number](LOINC) Lymph Auto 24.2 Normal 14.0-50.0 % LAB [id number](LOINC) [place] Auto 5.8 Normal 4.0-14.0 % LAB [id number](LOINC) Eos Auto 0.1 Normal 0.0-8.0 % LAB [id number](LOINC) Basophil Auto 0.9 Normal 0.0-2.0 % LAB [id number](LOINC) Neutro Absolute 10.5 High 2.0-7.5 E9/L LAB [id number](LOINC) Lymph Absolute 3.7 Normal 1.0-4.0 E9/L LAB [id number](LOINC) [place] Absolute 0.9 Normal 0.2-1.0 E9 /L LAB [id number](LOINC) Eos Absolute 0.0 Normal 0.0-0.5 E9/ L LAB [id number](LOINC) Basophil Absolute 0.1 Normal 0.0-0.2 E9/L Performed By: #### [id number] # ### [facility] [address] [place] [address] ED NOTE-PHYSICIAN Observed: 01/02/2025 9:13 PM Status: F Source: [facility] ED Note-Physician Basic Information Time Seen: Brian Aguilar PA-C 01/02/2025 21:18 Chief Complaint pt presents with abdominal pain. pt states she believes she has another ulcer. pt states she has not been able to stop throwing up. seen at [facility], CT done. pain and vomiting started History of Present Illness Patient is a 39-year-old female with PMH of GERD, stomach ulcers, intractable nausea and vomiting, marijuana use, bipolar affective disorder, obesity that presents today for evaluation of her epigastric abdominal pain with severe nausea and vomiting. Patient states that she was seen at [facility] for this last week and had a CT scan done as well as blood work and a urine that was negative. She was discharged home at that time. Patient states that she has been continuing to have severe nausea and vomiting with epigastric abdominal pain. She states that she has a history of gastric ulcers and feels as though this is what is causing this. Denies any fevers, bodies, chills. Denies any dysuria, frequency, urgency. She did have a bout of constipation but that is improved and she has no constipation or diarrhea now. Review of Systems No other aggravating or relieving factors no other associated symptoms no other prior treatments or complaints. Family: Reviewed and noncontributory Social: lives at home Review of systems negative unless otherwise specified in the HPI. Physical Exam Vitals & Measurements T: 37.0 ???C(Oral) HR: 122(Monitored) RR: 22 BP: 121/95 SpO2: 98% HT: 152.4 cm WT: 82.1 kg BMI: 35.35 General: The patient appears well and in no apparent distress. Patient is resting comfortably on cart. Skin: Warm, dry, no pallor noted. Head: Normocephalic, atraumatic Neck: No JVD Eye: PERRLA, EOMI ENT: Moist mucus membranes Cardiovascular: Regular rate and rhythm. Normal peripheral perfusion Respiratory: CTA bilaterally. No respiratory distress no accessory muscle use no obvious audible wheezing Chest Wall: no deformity Musculoskeletal: normal ROM, no deformity, no swelling GI: Soft no obvious distention. No rebound or rigidity. No guarding. Moderate epigastric abdominal tenderness. Neurological: A&O moves all extremities equal strength and symmetry Psychiatric: Cooperative and appropriate Medical Decision Making Patient is a 39-year-old female with PMH of GERD, stomach ulcers, intractable nausea and vomiting, marijuana use, bipolar affective disorder, obesity that presents today for evaluation of her epigastric abdominal pain with severe nausea and vomiting. Seen at [facility] for this last week and had a CT scan and labs done that were negative. Has continued despite being discharged home with meds. History of gastric ulcers and states that she feels as though this is what is going on. On exam patient is afebrile and nontoxic-appearing. She does appear in pain and has moderate epigastric abdominal tenderness. Remainder of the abdomen soft nontender with no evidence of guarding or distention. I was able to review the CT scan report done at [facility] which was negative for any acute intra-abdominal pathology. For this reason patient was started with a dose of droperidol and Benadryl as well as Pepcid and Bentyl and labs are obtained. Labs demonstrate leukocytosis with WBC of 15.3 and elevated neutrophils at 10.5 consistent with previous labs at [facility] on 12/26/[facility]24. Patient did not improve with initial medications and therefore was given a dose of morphine, Phenergan and again did not have improvement so was given a dose of IV acetaminophen as well as Zofran. Topical capsaicin was placed. Patient states she feels slightly better but is still dry heaving and having epigastric abdominal pain upon my evaluation. Given intractable nausea and vomiting patient would benefit from admission to the hospital for further workup and evaluation. Patient is agreeable to admission. I spoke with the hospitalist who accepted the patient for admission for further evaluation and management. Assessment/Plan 1. Intractable nausea and vomiting (R11.2: Nausea with vomiting, unspecified) 2. Marijuana use (F12.90: Cannabis use, unspecified, uncomplicated) 3. History of gastric ulcer (Z87.11: Personal history of peptic ulcer disease) 4. Leukocytosis (D72.829: Elevated white blood cell count, unspecified) Orders: acetaminophen + Generic Diluent 100 mL, 1,000 mg = 100 mL, Soln-IV, IV Piggyback, Once, Stop date 01/02/25 23:49:00 EDT, STAT, Start date 01/02/25 23:49:00 EDT, 400 mL/hr, Infuse over 15 minute(s) capsaicin topical, 1 chris, Cream, Topical, Once, Stop date 01/03/25 0:06:00 EDT, STAT, Start date 01/03/25 0:06:00 EDT dicyclomine, 20 mg = 2 mL, Injection, IntraMuscular, Once, Stop date 01/02/25 21:59:00 EDT, STAT, Start date 01/02/25 21:59:00 EDT, 01/02/25 21:59:00 EDT diphenhydrAMINE, 25 mg = 0.5 mL, Injection, IV Push, Once, Stop date 01/02/25 21:26:00 EDT, STAT, Start date 01/02/25 21:26:00 EDT, 01/02/25 21:26:00 EDT droperidol, 2.5 mg = 1 mL, Injection, IV Push, Once, Stop date 01/02/25 21:25:00 EDT, STAT, Start date 01/02/25 21:25:00 EDT, over 2 to 5 minutes, 01/02/25 21:25:00 EDT famotidine, 20 mg = 2 mL, Soln-IV, IV Push, Once, Stop date 01/02/25 21:59:00 EDT, STAT, Start date 01/02/25 21:59:00 EDT, 01/02/25 21:59:00 EDT morphine, 4 mg = 1 mL, Injection, IV Push, Once, Stop date 01/02/25 22:48:00 EDT, STAT, Start date 01/02/25 22:48:00 EDT, 01/02/25 22:48:00 EDT ondansetron, 4 mg = 2 mL, Injection, IV Push, Once, Stop date 01/02/25 23:49:00 EDT, STAT, Start date 01/02/25 23:49:00 EDT, 01/02/25 23:49:00 EDT promethazine 25 mg + Sodium Chloride 0.9% intravenous solution 50 mL, Injection, IV Piggyback, Once, Stop date 01/02/25 22:45:00 EDT, STAT, Start date 01/02/25 22:45:00 EDT, 153 mL/hr, Infuse over 20 minute(s) Basic Metabolic Panel CBC w/ Auto Diff eGFR Extra Blue Tube Extra SST Tube Hepatic Function Panel Lipase Level U Beta Hcg Qual UA with Cult Rflx Medications Administered Given capsaicin topical 0.025% cream, 1 chris, Topical dicyclomine 10 mg/mL Inj, 20 mg, IntraMuscular diphenhydrAMINE 50 mg/mL Inj, 25 mg, IV Push droperidol 2.5 mg/mL Inj, 2.5 mg, IV Push famotidine 10 mg/mL IV Penny, 20 mg, IV Push GenDil 100 mL + [id number] [F] 1000 mg, IV Piggyback morphine 4 mg/mL Inj, 4 mg, IV Push ondansetron 4 mg/2 mL Inj, 4 mg, IV Push Sodium Chloride 0.9% IV Penny 50 mL [F] 50 mL + [id number] [F] 25 mg, IV Piggyback Disposition Plan Patient Discharge Condition Stable Discharge Disposition Admit to medicine Discharge Prescription List Prescriptions No active prescription medications Follow-up No qualifying data available Attestation Patient seen and evaluated by the physician assistant chief train dispatcher. Attending physician was present in the emergency department and supervised care. This visit was performed by both the physician and an APC. I performed all aspects of the MDM as documented. This report was transcribed using voice recognition software. Every effort was made to ensure accuracy, however, inadvertently computerized trains dispatcher supervisor mistakes may be present. Appropriate healthcare PPE was used in evaluating this patient. The healthcare provider was wearing gloves, and utilizing proper hand hygiene. All equipment was properly cleansed. I performed a substantive part of the MDM during the patient???s E/M visit. I personally made or approved the documented management plan and acknowledge its risk of complications. (Independent Interpretation) My (EKG/X-Ray/US/CT as applicable) interpretation as above. (Discussion) Management/test interpretation discussed with APC. Problem List/Past Medical History Ongoing Acid reflux Acute hypokalemia Antral erosion Antral ulcer Anxiety disorder C. difficile colitis Chronic post-traumatic stress disorder (PTSD) Clostridium difficile diarrhea Diarrhea Epigastric pain Family history of colon cancer Hemorrhoids History of stomach ulcers Hx of gastric ulcer Hypomagnesemia Insomnia Intractable nausea and vomiting Leukocytosis LFT elevation Loose stools Marijuana use Mixed bipolar affective disorder, mild Nausea Obesity Smoker Weight loss Historical Alcohol use during Alcohol use during Procedure/Surgical History Colonoscopy (08/25/2022), Esophagogastroduodenoscopy (02/09/2022), EGD - Esophagogastroduodenoscopy (10/09/2021), Tear of anterior cruciate ligament of left knee (2001). Medications Inpatient No active inpatient medications Home Bentyl 10 mg Cap, 10 mg= 1 cap(s), Oral, QID, PRN busPIRone, 10 mg, Oral, BID folic acid 1 mg Tab, 1 mg= 1 tab(s), Oral, Daily Imitrex 100 mg Tab, 100 mg= 1 tab(s), Oral, Daily, PRN melatonin 3 mg Tab, 3 mg= 1 tab(s), Oral, Bedtime, PRN Metoprolol tartrate 25 mg Tab, Oral, BID Phenergan 25 mg Supp, 25 mg= 1 supp, Rectal, q6hr, PRN promethazine 25 mg Tab, 25 mg= 1 tab(s), Oral, q6hr, PRN Protonix 40 mg Tab-DR, 40 mg= 1 tab(s), Oral, Daily Vitamin B12 1000 mcg Tab, 1000 mcg= 1 tab(s), Oral, Daily Vyvanse 20 mg oral capsule Allergies Augmentin (UNK) amoxicillin (Unknown) Reglan Vraylar (UNK) iothalamate (Unknown) Social History Alcohol - Denies Alcohol Use, 02/02/2011 Current, Beer, 1-2 times per month, 12/08/2018 Employment/School laid off, Previous employment/school: Has been laid off work since 10/2019 due to Covid 19 virus 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 Living situation: Home/Independent., 12/08/2018 Substance Abuse - Denies Substance Abuse, 02/02/2011 Current, Marijuana, 01/02/2025 Current, Marijuana, Daily, 08/15/2019 Tobacco - Medium Risk, 11/13/2021 Former smoker, quit more than 30 days ago Tobacco Use:., 01/02/2025 Former smoker, quit more than 30 days ago Tobacco Use:. Never Smokeless Tobacco Use:. Cigarettes, 10/22/2022 Former smoker, quit more than 30 days ago Tobacco Use:. Never, Current vaping or e-cigarette use Smokeless Tobacco Use:. Cigarettes, 07/30/2022 Former smoker, quit more than 30 days ago Tobacco Use:. Vaping, 20 year(s). Started age 18.0 Years. Stopped age 36 Years. Previous treatment: None., 12/24/2021 Former smoker, quit more than 30 days ago, vapes Tobacco Use:. Current vaping or e-cigarette use Smokeless Tobacco Use:. Vaping, Ready to change: No. Household tobacco concerns: Yes. Yes, 03/20/2020 Family History Alcoholism: Mother. Drug addiction: Mother and Brother. Primary malignant neoplasm of colon: Grandparent. Lab Results WBC: 15.3 E9/L High (01/02/25 21:32:00) RBC: 5.7 E12/L (01/02/25 21:32:00) HGB: 17.3 gm/dL High (01/02/25 21:32:00) Hct: 50.4 % High (01/02/25 21:32:00) MCV: 88.6 fL (01/02/25 21:32:00) MCH: 30.4 pg (01/02/25::00) MCHC: 34.3 gm/dL (01/02/25::00) RDW: 15.3 % High (01/02/25::) Platelet: 404 E9/L (01/02/25:32:00) MPV: 8 fL (01/02/25::) Neutro Auto: 69 % (01/02/25::) Lymph Auto: 24.2 % (01/02/25::) [place] Auto: 5.8 % (01/02/25::) Eos Auto: 0.1 % (01/02/25::) Basophil Auto: 0.9 % (01/02/25::) Neutro Absolute: 10.5 E9/L High (01/02/25::) Lymph Absolute: 3.7 E9/L (01/02/25::) Carolina Absolute: 0.9 E9/L (01/02/25::) Eos Absolute: 0 E9/L (01/02/25::) Basophil Absolute: 0.1 E9/L (01/02/25::) Glucose Lvl: 129 mg/dL (01/02/25::) BUN: 6 mg/dL (01/02/25::) Creatinine: 1.1 mg/dL (01/02/25::) eGFR: 65 mL/min/1.73 m2 (01/02/25::) BUN/Creat Ratio: 6 Low (01/02/25::) Sodium Lvl: 140 mmol/L (01/02/25::00) Potassium Lvl: 3.4 mmol/L Low (01/02/25::) Chloride: 100 mmol/L Low (01/02/25::) CO2: 24 mmol/L (01/02/25::) AGAP: 19 mEq/L High (01/02/25:32:) Calcium Lvl: 10.4 mg/dL (07/01/25 21:32:00) Alk Phos: 80 Int._Unit/L (01/02/25 21:32:00) ALT: 41 Int._Unit/L (01/02/25 21:32:00) AST: 33 Int._Unit/L (01/02/25 21:32:00) Total Protein: 8.5 gm/dL High (01/02/25 21:32:00) Albumin Lvl: 5.5 gm/dL High (01/02/25 21:32:00) Globulin: 3 gm/dL (01/02/25 21:32:00) A/G Ratio: 1.8 (01/02/25 21:32:00) Bili Total: 0.6 mg/dL (01/02/25 21:32:00) Bili Direct: 0 mg/dL (01/02/25 21:32:00) Bili Indirect: 0.6 mg/dL (01/02/25 21:32:00) Lipase Lvl: 20 unit/L (01/02/25 21:32:00) Diagnostic Results No qualifying data available. Result Comment: Electronical ly Signed By: Brian Aguilar PA-C\.br\Date and Time Signed: 01/03/25 00:44 EDT\.br\Electronically Co-Signed By: Verónica Yates DO\.br\Date and Time Co-Signed: 01/03/25 00:54 EDT HE SCREENING W JUSTO Observed: 12:57 PM Status: F Source: [facility] * * *Final Report* * * DATE OF EXAM: Dec 17 2024 12:57PM [facility] [id number] - [facility] SCREENING W JUSTO / PROCEDURE REASON: Screening mammogram, encounter for * * * * Physician Interpretation * * * * RESULT: [facility] [id number] [facility] [place] [address] #[id number] - [facility] SCREENING W JUSTO HISTORY: 39 year-old patient presents for screening. Patient is asymptomatic in both breasts. Patient states no personal history of breast cancer. COMPARISON STUDIES: This is a baseline study. MAMMOGRAM TECHNIQUE: The study was acquired using full field digital technology and interpreted from soft copy. Digital Breast Tomosynthesis (DBT) images were obtained and used to assist in the interpretation of this examination. MAMMOGRAM FINDINGS: There are scattered areas of fibroglandular density. No suspicious masses, calcifications or other abnormalities are seen in either breast. IMPRESSION: There is no mammographic evidence of malignancy in either breast. Routine screening mammogram is recommended. Annual mammogram will be due in 1 year. BI-RADS Category 1: Negative RISK: Based on the Tyrer-Cuzick (TC) risk assessment model, this patient has a 6.5% lifetime risk of developing breast cancer, meaning they are at average risk for developing breast cancer. However, this is only an estimate based on available history provided on the patient's questionnaire. We encourage all patients to talk with their providers about these results, further recommendations for managing breast health, and appropriate supplemental screening options if the patient has dense breast tissue. Interpreting Radiologist: Jorge Freeman M.D. Electronically signed on: 12/18/2024 Technical Writer And Editor: KODAK Transcribe Date/Time: Dec 17 2024 12:46P Dictated by : JORGE FREEMAN MD This examination was interpreted and the report reviewed and electronically signed by: JORGE FREEMAN MD on Dec 18 2024 8:20AM EST [id number] PROGRESS Observed: 12/17/2024 12:40 PM Status: COMPLETED Source: [facility] ID: [id number] Author: KELLEY MCCABE [email or web address] Service: ? Author Type: Technologist Type: Progress Notes Filed: 12/17/2024 12:45 Note Text: Radiology Service Progress Note PATIENT NAME: Brianna Byers DATE OF SERVICE: December 17, 2024 TIME: 12:45 PM PATIENT IDENTITY VERIFICATION COMPLETED USING TWO (2) IDENTIFIERS: Name and Date of confirmed by patient verbally and Name and Date of confirmed by identification band. FALL SCREENING: Has the patient had 2 falls in the last year or 1 fall with injury or currently using an Ambulatory Assistive Device (Walker, Cane, Wheelchair, Crutches, etc.)? No PATIENT GENDER DATA: Assigned female at . status: : No status: NO. PATIENT RELEVANT IMPLANT DATA REVIEWED: Not Applicable PATIENT PRESENTS WITH AN IMPLANTABLE OR ATTACHED BRAZER HELPER INDUCTION: No RADIOLOGY DEPARTMENT: Mammography PERIPHERAL IV DATA: Not applicable SIGNED BY: Kelley Mccabe, [employer] December 17, 2024 12:45 PM PROGRESS Observed: 12/12/2024 8:05 AM Status: COMPLETED Source: [facility] HNO ID: [id number] Author: FRANCHESCA LOW MD Service: ? Author Type: Physician Type: Progress Notes Filed: 12/12/2024 08:35 Note Text: [facility] [place] SECTION OF REGIONAL CARDIOLOGY OUTPATIENT VISIT DATE December 12, 2024 OUTPATIENT VISIT TYPE Established PRIMARY CARE PHYSICIAN: Reuben Agrawal [address] [place] [address] REFERRING PHYSICIAN: Everett Edward [address] [place] [id number] C/C Follow-up today with symptoms of shortness of breath Last visit with me in 2022, subsequent F/u with INTELLIGENCE INTERN in Jul 2023 HISTORY OF PRESENT ILLNESS: Ms. Byers is a 39 year old female, seen in clinic today for follow-up. Prior hx of palpitations treated with propanolol. Hx of palpitations with possible sinus tachycardia-seen an treated at [facility]. Was started on metoprolol in the [...] specific cardiovascular complications peripartum. Prior hx of smoking-8pkyr, vapes Additional comorbidities include migraines, gastric ulcer -prior EGD and cauterization, on carafate and PPI, anxiety-follows with psychiatrist through [facility] in [place]. Since prior visit, The patient is a 39-year-old female with a history of hypercholesterolemia, prior tobacco use, and palpitations, presenting for evaluation of dyspnea. The patient reports experiencing dyspnea with minimal exertion, such as speaking in full sentences. She notes associated wheezing but denies any cough, chest pain, or orthopnea. She uses an inhaler without relief. She has not undergone pulmonary function testing. She reports mild dyspnea at rest and has noticed leg swelling. She denies any known allergies to contrast dye. She has a history of palpitations, which have improved with propranolol 80 mg daily. She denies any recent episodes. She has a history of hypercholesterolemia and prior tobacco use, having quit smoking three years ago. She has known allergies to metoclopramide, pantoprazole, and Vraylar. REVIEW OF SYSTEMS: 10 systems reviewed and are negative with the exception of pertinent positives described in HPI PHYSICAL EXAMINATION: BP 95/65 Pulse 75 Wt 86.1 kg (189 lb 13.1 oz) LMP 07/19/2023 (Exact Date) BMI 35.87 kg/m? General: No acute distress, appears comfortable [...] I have personally reviewed ECG: Sinus rhythm, 49 bpm, NC 144, right bundle branch block. PAST MEDICAL HISTORY Diagnosis Date Bipolar 1 disorder (HCC) Followed by psychiatry C. difficile diarrhea Cervical dysplasia or atypia status post cryo treatment Chlamydia 07/05/2004 ANA (generalized anxiety disorder) 04/09/2023 Headache(784.0) 07/05/2009 Daily-qod, thoracic to base of skull, tightening, no time of day History of peptic ulcer large 2021 MDD (major depressive disorder), recurrent episode, mild 04/09/2023 Migraine headache 07/05/2003 Photophobia, nausea, vomiting, weekly Neck pain Nephrolithiasis 07/05/2004 Other irritable bowel syndrome Palpitation Evaluated by cardiology RBBB TMJ disorder, unspecified PAST SURGICAL HISTORY Procedure Laterality Date ACL repair 2001 Left knee COLONOSCOPY 08/25/2022 EGD 10/09/2021 ulcer EGD 02/09/2022 scar from previous ulcer EGD 08/25/2022 TONSILLECTOMY HX SOCIAL HISTORY Social History Tobacco Use Smoking status: Former Current packs/day: 0.00 Average packs/day: 0.5 packs/day for 20.0 years (10.0 ttl pk-yrs) Types: Cigarettes Start date: 07/12/2003 Quit date: 07/12/2023 Years since quittin.4 Smokeless tobacco: Never Vaping Use Vaping status: current everyday user Substances: Nicotine, Flavoring Devices: [...] Reglan [Metoclopram* Mental Status Change CURRENT MEDICATIONS: gabapentin (NEURONTIN) 100 mg capsule Take 2 capsules by mouth two times a day for 90 days. celecoxib (CELEBREX) 200 mg capsule Take 1 capsule by mouth once daily. tiZANidine (ZANAFLEX) 4 mg tablet Take 1 tablet by mouth daily at bedtime. REXULTI 3 mg tablet Take 2 mg by mouth once daily. buPROPion XL (WELLBUTRIN XL) 300 mg 24 hr tablet Take 300 mg by mouth once daily. cloNIDine HCl (CATAPRES) 0.1 mg tablet Take 0.1 mg by mouth two times a day as needed. For Anxiety eszopiclone (LUNESTA) 2 mg Take 2 mg by mouth daily at bedtime. lisdexamfetamine (VYVANSE) 60 mg capsule Take 1 capsule by mouth once daily for 30 days. ergocalciferol 50,000 unit capsule (VITAMIN D2, DRISDOL) Take 1 capsule by mouth one time a week. cetirizine (ZYRTEC) 10 mg tablet TAKE 1 TABLET BY MOUTH EVERYDAY AT BEDTIME pantoprazole DR (PROTONIX) 40 mg tablet Take 1 tablet by mouth every afternoon. SUMAtriptan (IMITREX) 50 mg tablet Take 1 tablet (50 mg) by mouth as needed for migraine headache (see administration instructions). at onset of headache. May repeat after 2 hours. propranolol ER (INDERAL LA) 80 mg 24 hr capsule TAKE 1 CAPSULE BY MOUTH EVERY DAY cyanocobalamin (VITAMIN B-12) 1,000 mcg tab Take 1 tablet by mouth every afternoon. albuterol HFA (PROVENTIL HFA) 90 mcg/actuation inhaler Inhale 1-2 Puffs as instructed every 4 hours as needed for wheezing/shortness of breath. guaiFENesin (MUCINEX) 600 mg 12 hr tablet Take 1,200 mg by mouth twice daily as needed for cold/allergy symptoms. dicyclomine (BENTYL) 10 mg capsule Take 10 mg by mouth as needed. OLANZapine (ZYPREXA) 15 mg tablet Take 15 mg by mouth once daily. (Patient not taking: Reported on 12/12/2024) BLISOVI 24 FE 1 mg-20 mcg (24)/75 mg (4) Take 1 tablet by mouth every afternoon. (Patient not taking: Reported on 12/12/2024) IMPRESSION/PLAN AND RECOMMENDATIONS: Intermittent palpitations, nonexertional, currently controlled on propanolol Right bundle branch block by EKG, echocardiogram June 2023 normal LVEF, normal RV size and function no significant valvular dysfunction. Reassured, no further workup needed for the right bundle branch block Shortness of breath-on minimal exertion, such as taking, often associated with wheezing. No clinical evidence of decompensated HF. Has hx of tobacco use, vaping and mixed HLD CXR, PFTS Nt proBNP and SCr CTA coroanries-evaluate for coronary ASCVD, will need treatment for HLD if Positive ECHO F/u after above tests. May also benefit from lowering propanolol due to sinus jaycob, and potentially change propanolol to selective BB if any evidence of reactive airway disease. Marta Ray MD CNOV Observed: 12/12/2024 8:00 AM Status: COMPLETED Source: [facility] Office Visit (LORAINE) BRIANNA BYERS ([id number]) 1985 F Date Time Provider Department 12/12/24 8:00 AM FRANCHESCA LOW During your visit today, we recorded the following information about you: Pulse Blood pressure Weight 75/minute 95/65 86.1 kg Franchesca Low MD 12/12/2024 8:35 AM Signed [facility] [place] SECTION OF REGIONAL CARDIOLOGY OUTPATIENT VISIT DATE December 12, 2024 OUTPATIENT VISIT TYPE Established PRIMARY CARE PHYSICIAN: Reuben Agrawal [address] [place] [address] REFERRING PHYSICIAN: Everett Edward [facility] [address] C/C Follow-up today with symptoms of shortness of breath Last visit with me in 2022, subsequent F/u with INTELLIGENCE INTERN in Jul 2023 HISTORY OF PRESENT ILLNESS: Ms. Byers is a 39 year old female, seen in clinic today for follow-up. Prior hx of palpitations treated with propanolol. Hx of palpitations with possible sinus tachycardia-seen an treated at [facility]. Was started on metoprolol in the [...] specific cardiovascular complications peripartum. Prior hx of smoking-8pkyr, vapes Additional comorbidities include migraines, gastric ulcer -prior EGD and cauterization, on carafate and PPI, anxiety-follows with psychiatrist [facility] in [place]. Since prior visit, The patient is a 39-year-old female with a history of hypercholesterolemia, prior tobacco use, and palpitations, presenting for evaluation of dyspnea. The patient reports experiencing dyspnea with minimal exertion, such as speaking in full sentences. She notes associated wheezing but denies any cough, chest pain, or orthopnea. She uses an inhaler without relief. She has not undergone pulmonary function testing. She reports mild dyspnea at rest and has noticed leg swelling. She denies any known allergies to contrast dye. She has a history of palpitations, which have improved with propranolol 80 mg daily. She denies any recent episodes. She has a history of hypercholesterolemia and prior tobacco use, having quit smoking three years ago. She has known allergies to metoclopramide, pantoprazole, and Vraylar. REVIEW OF SYSTEMS: 10 systems reviewed and are negative with the exception of pertinent positives described in HPI PHYSICAL EXAMINATION: BP 95/65 Pulse 75 Wt 86.1 kg (189 lb 13.1 oz) LMP 07/19/2023 (Exact Date) BMI 35.87 kg/m? General: No acute distress, appears comfortable [...] I have personally reviewed ECG: Sinus rhythm, 49 bpm, NC 144, right bundle branch block. PAST MEDICAL HISTORY Diagnosis Date Bipolar 1 disorder (HCC) Followed by psychiatry C. difficile diarrhea Cervical dysplasia or atypia status post cryo treatment Chlamydia 07/05/2004 ANA (generalized anxiety disorder) 04/09/2023 Headache(784.0) 07/05/2009 Daily-qod, thoracic to base of skull, tightening, no time of day History of peptic ulcer large 2021 MDD (major depressive disorder), recurrent episode, mild 04/09/2023 Migraine headache 07/05/2003 Photophobia, nausea, vomiting, weekly Neck pain Nephrolithiasis 07/05/2004 Other irritable bowel syndrome Palpitation Evaluated by cardiology RBBB TMJ disorder, unspecified PAST SURGICAL HISTORY Procedure Laterality Date ACL repair 2001 Left knee COLONOSCOPY 08/25/2022 EGD 10/09/2021 ulcer EGD 02/09/2022 scar from previous ulcer EGD 08/25/2022 TONSILLECTOMY HX SOCIAL HISTORY Social History Tobacco Use Smoking status: Former Current packs/day: 0.00 Average packs/day: 0.5 packs/day for 20.0 years (10.0 ttl pk-yrs) Types: Cigarettes Start date: 07/12/2003 Quit date: 07/12/2023 Years since quittin.4 Smokeless tobacco: Never Vaping Use Vaping status: current everyday user Substances: Nicotine, Flavoring Devices: [...] Reglan [Metoclopram* Mental Status Change CURRENT MEDICATIONS: gabapentin (NEURONTIN) 100 mg capsule Take 2 capsules by mouth two times a day for 90 days. celecoxib (CELEBREX) 200 mg capsule Take 1 capsule by mouth once daily. tiZANidine (ZANAFLEX) 4 mg tablet Take 1 tablet by mouth daily at bedtime. REXULTI 3 mg tablet Take 2 mg by mouth once daily. buPROPion XL (WELLBUTRIN XL) 300 mg 24 hr tablet Take 300 mg by mouth once daily. cloNIDine HCl (CATAPRES) 0.1 mg tablet Take 0.1 mg by mouth two times a day as needed. For Anxiety eszopiclone (LUNESTA) 2 mg Take 2 mg by mouth daily at bedtime. lisdexamfetamine (VYVANSE) 60 mg capsule Take 1 capsule by mouth once daily for 30 days. ergocalciferol 50,000 unit capsule (VITAMIN D2, DRISDOL) Take 1 capsule by mouth one time a week. cetirizine (ZYRTEC) 10 mg tablet TAKE 1 TABLET BY MOUTH EVERYDAY AT BEDTIME pantoprazole DR (PROTONIX) 40 mg tablet Take 1 tablet by mouth every afternoon. SUMAtriptan (IMITREX) 50 mg tablet Take 1 tablet (50 mg) by mouth as needed for migraine headache (see administration instructions). at onset of headache. May repeat after 2 hours. propranolol ER (INDERAL LA) 80 mg 24 hr capsule TAKE 1 CAPSULE BY MOUTH EVERY DAY cyanocobalamin (VITAMIN B-12) 1,000 mcg tab Take 1 tablet by mouth every afternoon. albuterol HFA (PROVENTIL HFA) 90 mcg/actuation inhaler Inhale 1-2 Puffs as instructed every 4 hours as needed for wheezing/shortness of breath. guaiFENesin (MUCINEX) 600 mg 12 hr tablet Take 1,200 mg by mouth twice daily as needed for cold/allergy symptoms. dicyclomine (BENTYL) 10 mg capsule Take 10 mg by mouth as needed. OLANZapine (ZYPREXA) 15 mg tablet Take 15 mg by mouth once daily. (Patient not taking: Reported on 12/12/2024) BLISOVI 24 FE 1 mg-20 mcg (24)/75 mg (4) Take 1 tablet by mouth every afternoon. (Patient not taking: Reported on 12/12/2024) IMPRESSION/PLAN AND RECOMMENDATIONS: Intermittent palpitations, nonexertional, currently controlled on propanolol Right bundle branch block by EKG, echocardiogram June 2023 normal LVEF, normal RV size and function no significant valvular dysfunction. Reassured, no further workup needed for the right bundle branch block Shortness of breath-on minimal exertion, such as taking, often associated with wheezing. No clinical evidence of decompensated HF. Has hx of tobacco use, vaping and mixed HLD CXR, PFTS Nt proBNP and SCr CTA coroanries-evaluate for coronary ASCVD, will need treatment for HLD if Positive ECHO F/u after above tests. May also benefit from lowering propanolol due to sinus jaycob, and potentially change propanolol to selective BB if any evidence of reactive airway disease. MD Franchesca Ray MD Allergies As of Date: 12/12/2024 Noted Allergy Reaction CARIPRAZINE 12/29/2021 14 - Other: See Comments 16 - Unknown METOCLOPRAMIDE 08/10/2013 14 - Other: See Comments PENICILLINS 12/18/2018 4 - Hives REGLAN (METOCLOPRAMIDE HCL) 12/30/2009 1 - Mental Status Change Date Reviewed: 12/12/2024 Reviewed by: Franchesca Low MD - Fully Assessed Reason for Visit: Follow Up [171] Primary Visit Diagnosis:SOB (shortness of breath) [R06.02] Other Visit Diagnoses:Wheezing [R06.2] History of tobacco use [Z87.891] Mixed hyperlipidemia [E78.2] Order(s):ECG COMPLETE [ECG01] Order #: [id number] CTA CORONARY W IVCON [[id number]] Order #: [id number] FUTURE iv contrast (will be provided with radiology test)CTA Coronary. No IV access, insert saline lock prior to the sedation, infusion, injection for imaging exam. Discontinue saline lock post exam. If Pt. has a central line or IVAD, may access for administration according to line specific nursing protocol. Once exam is complete flush line and de-access according to line specific nursing protocol in the CT contrast administration guidelines link.Disp: 1 eachRfl: 0 nitroglycerin sublingual (NITROQUICK) 0.3 mg SL tabletDissolve 1 tablet under the tongue one time only for 1 dose. To be administered in Radiology for CTA examDisp: 1 tabletRfl: 0 CT-FRACTIONAL FLOW RESERVE [[id number]] Order #: [id number] FUTURE CREATININE BLD [SQCRET] Order #: [id number] FUTURE NT PRO BNP [SQNTBNP] Order #: [id number] FUTURE ECHO [772873] Order #: [id number]: 1 FUTURE XR CHEST 2V FRONTAL/LAT [[id number]] Order #: [id number] FUTURE SPIROMETRY - BASELINE AND POST DILATOR [5450979] Order #: [id number]: 1 FUTURE LUNG DIFFUSION CAPACITY (DLCO) [2494766] Order #: [id number]: 1 FUTURE Prescriptions as of 12/12/2024 - iv contrast (will be provided with radiology test) CTA Coronary. No IV access, insert saline lock prior to the sedation, infusion, injection for imaging exam. Discontinue saline lock post exam. If Pt. has a central line or IVAD, may access for administration according to line specific nursing protocol. Once exam is complete flush line and de-access according to line specific nursing protocol in the CT contrast administration guidelines link. - nitroglycerin sublingual (NITROQUICK) 0.3 mg SL tablet Dissolve 1 tablet under the tongue one time only for 1 dose. To be administered in Radiology for CTA exam - gabapentin (NEURONTIN) 100 mg capsule Take 2 capsules by mouth two times a day for 90 days. - celecoxib (CELEBREX) 200 mg capsule Take 1 capsule by mouth once daily. - tiZANidine (ZANAFLEX) 4 mg tablet Take 1 tablet by mouth daily at bedtime. - REXULTI 3 mg tablet Take 2 mg by mouth once daily. - buPROPion XL (WELLBUTRIN XL) 300 mg 24 hr tablet Take 300 mg by mouth once daily. - cloNIDine HCl (CATAPRES) 0.1 mg tablet Take 0.1 mg by mouth two times a day as needed. For Anxiety - eszopiclone (LUNESTA) 2 mg Take 2 mg by mouth daily at bedtime. - OLANZapine (ZYPREXA) 15 mg tablet Take 15 mg by mouth once daily. - lisdexamfetamine (VYVANSE) 60 mg capsule Take 1 capsule by mouth once daily for 30 days. - ergocalciferol 50,000 unit capsule (VITAMIN D2, DRISDOL) Take 1 capsule by mouth one time a week. - cetirizine (ZYRTEC) 10 mg tablet TAKE 1 TABLET BY MOUTH EVERYDAY AT BEDTIME - SUMAtriptan (IMITREX) 50 mg tablet Take 1 tablet (50 mg) by mouth as needed for migraine headache (see administration instructions). at onset of headache. May repeat after 2 hours. - propranolol ER (INDERAL LA) 80 mg 24 hr capsule TAKE 1 CAPSULE BY MOUTH EVERY DAY - cyanocobalamin (VITAMIN B-12) 1,000 mcg tab Take 1 tablet by mouth every afternoon. - BLISOVI 24 FE 1 mg-20 mcg (24)/75 mg (4) Take 1 tablet by mouth every afternoon. - albuterol HFA (PROVENTIL HFA) 90 mcg/actuation inhaler Inhale 1-2 Puffs as instructed every 4 hours as needed for wheezing/shortness of breath. - guaiFENesin (MUCINEX) 600 mg 12 hr tablet Take 1,200 mg by mouth twice daily as needed for cold/allergy symptoms. - dicyclomine (BENTYL) 10 mg capsule Take 10 mg by mouth as needed. Problem List As Of Date 12/12/2024 Noted Resolved Migraine [346] 01/25/2003 04/09/2023 Migraines [...] 04/09/2023 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] 04/09/2023 ANA (generalized anxiety disorder) [F41.1] 04/09/2023 MDD (major depressive disorder), recurrent epis*04/09/2023 History of tobacco use [Z87.891] 08/03/2023 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*08/24/2023 Status post cervical spinal arthrodesis [Z98.1] 08/24/2023 S/P cervical spinal fusion [Z98.1] 08/24/2023 Vitamin D deficiency [E55.9] 10/05/2024 Upper back pain [M54.9] 10/05/2024 Mixed hyperlipidemia [E78.2] 12/12/2024 Prescriptions ordered this encounter Disp Refills Start End IV CONTRAST (RADIOLOGY PROCEDURE) - * 1 ea* 0 12/12/2024 12/13/2024 Class: In Office Sig: CTA Coronary. No IV access, insert saline lock prior to the sedation, infusion, injection for imaging exam. Discontinue saline lock post exam. If Pt. has a central line or IVAD, may access for administration according to line specific nursing protocol. Once exam is complete flush line and de-access according to line specific nursing protocol in the CT contrast administration guidelines link. NITROGLYCERIN 0.3 MG SUBLINGUAL TABL* 1 ta* 0 12/12/2024 12/12/2024 Class: In Office Route: SUBLINGUAL Sig: Dissolve 1 tablet under the tongue one time only for 1 dose. To be administered in Radiology for CTA exam Medications Discontinued During This Encounter Prescriptions - pantoprazole DR (PROTONIX) 40 mg tablet (Discontinued) Take 1 tablet by mouth every afternoon. Disposition: Return in about 6 months (around 06/13/2025), or if symptoms worsen or fail to improve. Follow-up and Disposition History for Encounter Date Provider Department Center 12/12/2024 [id number], SUROVI LORAINE Hawkins [facility] Encounter Status:Closed by FRANCHESCA LOW on 12/12/24 ECG COMPLETE Observed: 12/12/2024 7:58 AM Status: F Source: [facility] Ventricular Rate : 49 BPM Atrial Rate : 49 BPM P-R Interval : 144 ms QRS Duration : 142 ms Q-T Interval : 476 ms QTC Calculation(Bazett) : 429 ms Calculated P [place] : 16 degrees Calculated R [place] : 270 degrees Calculated T [place] : 76 degrees SINUS BRADYCARDIA WITH SINUS ARRHYTHMIA COMPLETE RIGHT BUNDLE BRANCH BLOCK ABNORMAL ECG Confirmed by DRE ACKERMAN DO ([id number]) on 12/19/2024 11:17:56 AM NAME : BRIANNA BYERS PID : [id number] : 1985 Gender : Female Race : ORD : [id number] Procedure Date : Dec 12 2024 07:58:47 Edit Date : Dec 19 2024 11:18:04 Diagnosis: SINUS BRADYCARDIA WITH SINUS ARRHYTHMIA COMPLETE RIGHT BUNDLE BRANCH BLOCK ABNORMAL ECG Confirmed by DRE ACKERMAN DO ([id number]) on 12/19/2024 11:17:56 AM Test Reason : R06.02 SOB (shortness of breath) Location : 145 : [place] Overread By : DRE ACKERMAN DO Edited By : DRE ACKERMAN DO Referred By : Augustina Low by : BILLY edge Observed: 11/21/2024 12:00 AM Status: COMPLETED Source: [facility] Telephone (INLocalCustomer) BRIANNA BYERS ([id number]) 1985 F Date Time Provider Department 11/21/24 REUBEN AGRAWAL [facility] During your visit today, we recorded the following information about you: Godfrey Martin MA 11/21/2024 10:14 AM Signed Received from [facility]. Placed in PCP inbox. Godfrey Martin MA November 21, 2024 10:14 AM Allergies As of Date: 11/21/2024 Noted Allergy Reaction CARIPRAZINE 12/29/2021 14 - Other: See Comments 16 - Unknown IOTHALAMIC ACID 08/10/2013 14 - Other: See Comments METOCLOPRAMIDE 08/10/2013 14 - Other: See Comments PENICILLINS 12/18/2018 4 - Hives REGLAN (METOCLOPRAMIDE HCL) 12/30/2009 1 - Mental Status Change Date Reviewed: 10/05/2024 Reviewed by: Carline Buthcer MA - Fully Assessed Reason for Visit: Orders [681] Cmt: PT Discharge Summary Prescriptions as of 11/21/2024 - gabapentin (NEURONTIN) 100 mg capsule Take 2 capsules by mouth two times a day for 90 days. - celecoxib (CELEBREX) 200 mg capsule Take 1 capsule by mouth once daily. - tiZANidine (ZANAFLEX) 4 mg tablet Take 1 tablet by mouth daily at bedtime. - REXULTI 3 mg tablet Take 2 mg by mouth once daily. - buPROPion XL (WELLBUTRIN XL) 300 mg 24 hr tablet Take 300 mg by mouth once daily. - cloNIDine HCl (CATAPRES) 0.1 mg tablet Take 0.1 mg by mouth two times a day as needed. For Anxiety - eszopiclone (LUNESTA) 2 mg Take 2 mg by mouth daily at bedtime. - OLANZapine (ZYPREXA) 15 mg tablet Take 15 mg by mouth once daily. - lisdexamfetamine (VYVANSE) 60 mg capsule Take 1 capsule by mouth once daily for 30 days. - ergocalciferol 50,000 unit capsule (VITAMIN D2, DRISDOL) Take 1 capsule by mouth one time a week. - cetirizine (ZYRTEC) 10 mg tablet TAKE 1 TABLET BY MOUTH EVERYDAY AT BEDTIME - pantoprazole DR (PROTONIX) 40 mg tablet Take 1 tablet by mouth every afternoon. - SUMAtriptan (IMITREX) 50 mg tablet Take 1 tablet (50 mg) by mouth as needed for migraine headache (see administration instructions). at onset of headache. May repeat after 2 hours. - propranolol ER (INDERAL LA) 80 mg 24 hr capsule TAKE 1 CAPSULE BY MOUTH EVERY DAY - cyanocobalamin (VITAMIN B-12) 1,000 mcg tab Take 1 tablet by mouth every afternoon. - BLISOVI 24 FE 1 mg-20 mcg (24)/75 mg (4) Take 1 tablet by mouth every afternoon. - albuterol HFA (PROVENTIL HFA) 90 mcg/actuation inhaler Inhale 1-2 Puffs as instructed every 4 hours as needed for wheezing/shortness of breath. - guaiFENesin (MUCINEX) 600 mg 12 hr tablet Take 1,200 mg by mouth twice daily as needed for cold/allergy symptoms. - dicyclomine (BENTYL) 10 mg capsule Take 10 mg by mouth as needed. Problem List As Of Date 11/21/2024 Noted Resolved Migraine [346] 01/25/2003 04/09/2023 Migraines [...] 04/09/2023 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] 04/09/2023 ANA (generalized anxiety disorder) [F41.1] 04/09/2023 MDD (major depressive disorder), recurrent epis*04/09/2023 Former smoker [Z87.891] 08/03/2023 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*08/24/2023 Status post cervical spinal arthrodesis [Z98.1] 08/24/2023 S/P cervical spinal fusion [Z98.1] 08/24/2023 Vitamin D deficiency [E55.9] 10/05/2024 Upper back pain [M54.9] 10/05/2024 Encounter Status:Closed by GODFREY MARTIN on 11/21/24 CNPN Observed: 10/13/2024 12:00 AM Status: COMPLETED Source: [facility] Telephone (INLocalCustomer) BRIANNA BYERS ([id number]) 1985 F Date Time Provider Department 10[facility]13[facility] During your visit today, we recorded the following information about you: Godfrey Martin MA 10/13/2024 10:57 AM Signed Received from [facility]. Placed in pcp inbox for signature. Godfrey Martin MA October 13, 2024 10:57 AM Reuben Agrawal PA-C 10/16/2024 9:55 AM Signed Form completed and placed in outgoing ACTION box for clinical to process. Reuben Chan. ABA Agrawal Alexandra, MA 10/16/2024 10:09 AM Signed Faxed back. Sent to scanning. Godfrey Martin MA October 16, 2024 10:09 AM Allergies As of Date: 10/13/2024 Noted Allergy Reaction CARIPRAZINE 12/29/2021 14 - Other: See Comments 16 - Unknown IOTHALAMIC ACID 08/10/2013 14 - Other: See Comments METOCLOPRAMIDE 08/10/2013 14 - Other: See Comments PENICILLINS 12/18/2018 4 - Hives REGLAN (METOCLOPRAMIDE HCL) 12/30/2009 1 - Mental Status Change Date Reviewed: 10/05/2024 Reviewed by: Carline Butcher MA - Fully Assessed Reason for Visit: Orders [681] Cmt: PT: Initial Exam Prescriptions as of 10/16/2024 - REXULTI 3 mg tablet Take 2 mg by mouth once daily. - buPROPion XL (WELLBUTRIN XL) 300 mg 24 hr tablet Take 300 mg by mouth once daily. - cloNIDine HCl (CATAPRES) 0.1 mg tablet Take 0.1 mg by mouth two times a day as needed. For Anxiety - eszopiclone (LUNESTA) 2 mg Take 2 mg by mouth daily at bedtime. - OLANZapine (ZYPREXA) 15 mg tablet Take 15 mg by mouth once daily. - lisdexamfetamine (VYVANSE) 60 mg capsule Take 1 capsule by mouth once daily for 30 days. - ergocalciferol 50,000 unit capsule (VITAMIN D2, DRISDOL) Take 1 capsule by mouth one time a week. - cetirizine (ZYRTEC) 10 mg tablet TAKE 1 TABLET BY MOUTH EVERYDAY AT BEDTIME - celecoxib (CELEBREX) 200 mg capsule Take 1 capsule by mouth once daily. - gabapentin (NEURONTIN) 100 mg capsule Take 2 capsules by mouth two times a day for 90 days. - pantoprazole DR (PROTONIX) 40 mg tablet Take 1 tablet by mouth every afternoon. - SUMAtriptan (IMITREX) 50 mg tablet Take 1 tablet (50 mg) by mouth as needed for migraine headache (see administration instructions). at onset of headache. May repeat after 2 hours. - propranolol ER (INDERAL LA) 80 mg 24 hr capsule TAKE 1 CAPSULE BY MOUTH EVERY DAY - cyanocobalamin (VITAMIN B-12) 1,000 mcg tab Take 1 tablet by mouth every afternoon. - BLISOVI 24 FE 1 mg-20 mcg (24)/75 mg (4) Take 1 tablet by mouth every afternoon. - albuterol HFA (PROVENTIL HFA) 90 mcg/actuation inhaler Inhale 1-2 Puffs as instructed every 4 hours as needed for wheezing/shortness of breath. - guaiFENesin (MUCINEX) 600 mg 12 hr tablet Take 1,200 mg by mouth twice daily as needed for cold/allergy symptoms. - dicyclomine (BENTYL) 10 mg capsule Take 10 mg by mouth as needed. Problem List As Of Date 10/13/2024 Noted Resolved Migraine [346] 01/25/2003 04/09/2023 Migraines [...] 04/09/2023 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] 04/09/2023 ANA (generalized anxiety disorder) [F41.1] 04/09/2023 MDD (major depressive disorder), recurrent epis*04/09/2023 Former smoker [Z87.891] 08/03/2023 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*08/24/2023 Status post cervical spinal arthrodesis [Z98.1] 08/24/2023 S/P cervical spinal fusion [Z98.1] 08/24/2023 Vitamin D deficiency [E55.9] 10/05/2024 Upper back pain [M54.9] 10/05/2024 Encounter Status:Closed by GODFREY MARTIN on 10/13/24 CNOV Observed: 10/05/2024 10:40 AM Status: COMPLETED Source: [facility] Office Visit (INMSHE) BRIANNA BYERS ([id number]) 1985 F Date Time Provider Department 10/05/24 10:40 AM [facility] During your visit today, we recorded the following information about you: Temperature Pulse Blood pressure Weight 97.8 degrees 73/minute 121/85 86.6 kg Height 1.549 m Reuben Agrawal PA-C 10/05/2024 12:21 PM Signed Subjective Patient ID: Brianna is a 39 year old female who presents for Yearly Exam (Wants to discuss weight). HPI Patient here for an annual follow up Psych: She reports a hx of depression, anxiety, complex PTSD and Bipolar disorder. She's followed by psychiatry and is on Vyvanse 60mg (has been increasing to that), bupropion XL 300mg, Clonidine 0.1mg BID prn anxiety, Lunesta (recent start - previously failed Rozerem, Temazepam and Zolpidem - for difficulty maintaining sleep), Gabapentin (prescribed by PCP for pain), Propranolol (prescribed by cardio for tachycardia) and is transitioning from Zyprexa (due to weight gain) to Rexulti. Cardiac: She reports she had been following with cardiology regularly for her palpitations and RBBB. She is on propranolol QD. She is on Vyvanse from psychiatry - which has been increasing. She notes no change in her palpitations. TMJ: She has known hx of TMJ pain. She has an oral appliance/mouth guard. She has seen PT and OT. Low Lying Cerebellar tonsils: Known hx of low lying cerebellar tonsiles (3mm). Followed previously by brain team- no intervention needed. Migraines: She reports a hx of migraines particularly when she was young. She takes Imitrex prn which is rarely. She is on gabapentin (from PCP for chronic pain) and Propranolol (from cardiology for tachycardia) C-spine: She reports ongoing neck pain and upper back pain. She has had imaging including and MRI. Hx of C-spine surgery (cervical dissection and fusion) 08/2023. She has seen PT and OT. Much better since surgery. Is on Gabapentin 100mg 2 po BID. IBS: She reports a history of irritable bowel syndrome. She has had a colonoscopy in the past - done at [facility]. She takes Bentyl prn with benefit. PUD: She reports a history of a gastric ulcer. She has had an EGD in the past - done at [facility]. She takes pantoprazole daily. She also takes naproxen daily. Fibromyalgia: Previously dx with Fibromyalgia. She has seen PT/OT - great benefit in the past. Is on Gabapentin 100mg 2 po BID and Celebrex QD. She inquires about restarting Tizanidine for qhs to help with her upper back muscular pain/tightness. Nephrolithiasis: She has a hx of nephrolithiasis. 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 She has a history of abnormal cells and required treatment. She recently had an elective bilateral salpingectomy - had endometrial biopsy as well. She is on combination OBC for her migraines. Obesity: She's frustrated with her weight gain. She attributes it to her mood stabilizers - occurred with Seroquel, Zyprexa. She inquires about the shots to help her weight. Objective BP 121/85 Pulse 73 Temp 36.6 ?C (97.8 ?F) (Temporal) Ht 154.9 cm (5' 1 ) Wt 86.6 kg (191 lb) LMP 07/19/2023 (Exact Date) SpO2 99% BMI 36.09 kg/m? Physical Exam HENT: Head: Normocephalic and atraumatic. Nose: Nose normal. Mouth/Throat: Pharynx: Uvula midline. Eyes: Pupils: Pupils are equal, round, and reactive to light. Neck: Thyroid: No thyromegaly. Cardiovascular: Rate and Rhythm: Normal rate and regular rhythm. Heart sounds: Normal heart sounds. No murmur heard. Pulmonary: Effort: Pulmonary effort is normal. Breath sounds: Normal breath sounds. Abdominal: Palpations: Abdomen is soft. There is no mass. Tenderness: There is no abdominal tenderness. There is no guarding. Musculoskeletal: General: Normal range of motion. Cervical back: Normal range of motion and neck supple. Skin: General: Skin is warm and dry. Findings: No rash. Neurological: Mental Status: She is alert and oriented to person, place, and time. Psychiatric: Judgment: Judgment normal. Assessment AND Plan Routine general medical examination at a health care facility Labs - reviewed CBC CMP - non fasting Lipids - dyslipidemia Recommend lower cholesterol diet Zyprexa being cross tapered to Rexulti in hopes of less metabolic SE (obesity) Repeat in 3-4 months TSH Vit D - low, start Rx weekly Repeat in 3-4 months A1C as POC due to weight gain - nml Preventative Mammo: Ordered today Pt might go outside of [facility] near her home Pap: Followed by CHIEF ORDER DISPATCHER EGD/Colonoscopy: 08/2022 okay Declines COVID and flu vaccination Hep C screening ordered Fibromyalgia with upper back pain Already on Gabapentin and Celebrex regularly Pt inquires about tizanidine as she previously found it beneficial I [facility] if [facility] have any concerns as they are prescribing insomnia tx (unsure if they will be changing plan of care) Psychiatrist Bre Tineo [phone] [place] [phone] ABA Matthews Meredith L, PA-C 10/05/2024 10:58 AM Signed Start Vitamin D prescription weekly Check labs in 3 months Recommend low cholesterol diet Check labs FASTING in 3 months Physical therapy order faxed - but also given to you. Allergies As of Date: 10/05/2024 Noted Allergy Reaction CARIPRAZINE 12/29/2021 14 - Other: See Comments 16 - Unknown IOTHALAMIC ACID 08/10/2013 14 - Other: See Comments METOCLOPRAMIDE 08/10/2013 14 - Other: See Comments PENICILLINS 12/18/2018 4 - Hives REGLAN (METOCLOPRAMIDE HCL) 12/30/2009 1 - Mental Status Change Date Reviewed: 10/05/2024 Reviewed by: Carline Butcher MA - Fully Assessed Reason for Visit: Yearly Exam [187] Cmt: Wants to discuss weight Primary Visit Diagnosis:Routine general medical examination at a health care facility [Z00.00] Other Visit Diagnoses:Upper back pain [M54.9] Attention deficit disorder, unspecified type [F98.8] Vitamin D deficiency [E55.9] Dyslipidemia [E78.5] Weight gain [R63.5] Screening mammogram, encounter for [Z12.31] Special screening examination for viral disease [Z11.59] Order(s):lisdexamfetamine (VYVANSE) 60 mg capsuleTake 1 capsule by mouth once daily for 30 days.Disp: 30 capsuleRfl: 0 CONSULT TO PHYSICAL THERAPY [9035] Order #: [id number]: 1 FUTURE HEMOGLOBIN A1C (POC) [4835083] Order #: [id number]. #:[id number] ergocalciferol 50,000 unit capsule (VITAMIN D2, DRISDOL)Take 1 capsule by mouth one time a week.Disp: 12 capsuleRfl: 3 VITAMIN D 25 HYDROXY [SQVITD] Order #: [id number] FUTURE LIPID PANEL, FASTING [SQLIPB] Order #: [id number] FUTURE HE SCREENING W JUSTO [[id number]] Order #: [id number] FUTURE HEPATITIS C ANTIBODY IA WITH CONFIRMATION [[id number]] Order #: [id number] FUTURE Prescriptions as of 10/05/2024 - REXULTI 3 mg tablet Take 2 mg by mouth once daily. - buPROPion XL (WELLBUTRIN XL) 300 mg 24 hr tablet Take 300 mg by mouth once daily. - cloNIDine HCl (CATAPRES) 0.1 mg tablet Take 0.1 mg by mouth two times a day as needed. For Anxiety - eszopiclone (LUNESTA) 2 mg Take 2 mg by mouth daily at bedtime. - OLANZapine (ZYPREXA) 15 mg tablet Take 15 mg by mouth once daily. - lisdexamfetamine (VYVANSE) 60 mg capsule Take 1 capsule by mouth once daily for 30 days. - ergocalciferol 50,000 unit capsule (VITAMIN D2, DRISDOL) Take 1 capsule by mouth one time a week. - cetirizine (ZYRTEC) 10 mg tablet TAKE 1 TABLET BY MOUTH EVERYDAY AT BEDTIME - celecoxib (CELEBREX) 200 mg capsule Take 1 capsule by mouth once daily. - gabapentin (NEURONTIN) 100 mg capsule Take 2 capsules by mouth two times a day for 90 days. - pantoprazole DR (PROTONIX) 40 mg tablet Take 1 tablet by mouth every afternoon. - SUMAtriptan (IMITREX) 50 mg tablet Take 1 tablet (50 mg) by mouth as needed for migraine headache (see administration instructions). at onset of headache. May repeat after 2 hours. - propranolol ER (INDERAL LA) 80 mg 24 hr capsule TAKE 1 CAPSULE BY MOUTH EVERY DAY - cyanocobalamin (VITAMIN B-12) 1,000 mcg tab Take 1 tablet by mouth every afternoon. - BLISOVI 24 FE 1 mg-20 mcg (24)/75 mg (4) Take 1 tablet by mouth every afternoon. - albuterol HFA (PROVENTIL HFA) 90 mcg/actuation inhaler Inhale 1-2 Puffs as instructed every 4 hours as needed for wheezing/shortness of breath. - guaiFENesin (MUCINEX) 600 mg 12 hr tablet Take 1,200 mg by mouth twice daily as needed for cold/allergy symptoms. - dicyclomine (BENTYL) 10 mg capsule Take 10 mg by mouth as needed. 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] 04/09/2023 ANA (generalized anxiety disorder) [F41.1] 04/09/2023 MDD (major depressive disorder), recurrent epis*04/09/2023 Former smoker [Z87.891] 08/03/2023 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*08/24/2023 Status post cervical spinal arthrodesis [Z98.1] 08/24/2023 S/P cervical spinal fusion [Z98.1] 08/24/2023 Vitamin D deficiency [E55.9] 10/05/2024 Upper back pain [M54.9] 10/05/2024 Other instructions from your clinician: Start Vitamin D prescription weekly Check labs in 3 months Recommend low cholesterol diet Check labs FASTING in 3 months Physical therapy order faxed - but also given to you. Prescriptions ordered this encounter Disp Refills Start End LISDEXAMFETAMINE 60 MG CAPSULE 30 c* 0 10/05/2024 11/04/2024 Class: Med Update Route: ORAL Sig: Take 1 capsule by mouth once daily for 30 days. ERGOCALCIFEROL (VITAMIN D2) 1,250 MC* 12 c* 3 10/05/2024 Route: ORAL Sig: Take 1 capsule by mouth one time a week. Medications Discontinued During This Encounter Prescriptions - gabapentin (NEURONTIN) 100 mg capsule (Discontinued) Take 2 capsules by mouth every 12 hours for 30 days. - VYVANSE 20 mg capsule (Discontinued) Take 20 mg by mouth once daily. - OLANZapine (ZYPREXA) 5 mg tablet (Discontinued) Take 15 mg by mouth once daily. - VYVANSE 50 mg capsule (Discontinued) Take 50 mg by mouth once daily. Level of Service: WELLNESS EXAMS EST 18-39 YRS [54940] Disposition: Return in about 1 year (around 10/05/2025) for Physical with labs. Follow-up and Disposition History for Encounter Date Provider Department Center 10/05/2024 [id number] AGRAWAL*[facility] Letter Text Encounter Status:Closed by REUBEN AGRAWAL on 10/05/24 PROGRESS Observed: 10/05/2024 10:31 AM Status: COMPLETED Source: [facility] HNO ID: [id number] Author: REUBEN AGRAWAL PA-C Service: ? Author Type: Physician Sub Master Type: Progress Notes Filed: 10/05/2024 12:21 Note Text: Subjective Patient ID: Brianna is a 39 year old female who presents for Yearly Exam (Wants to discuss weight). HPI Patient here for an annual follow up Psych: She reports a hx of depression, anxiety, complex PTSD and Bipolar disorder. She's followed by psychiatry and is on Vyvanse 60mg (has been increasing to that), bupropion XL 300mg, Clonidine 0.1mg BID prn anxiety, Lunesta (recent start - previously failed Rozerem, Temazepam and Zolpidem - for difficulty maintaining sleep), Gabapentin (prescribed by PCP for pain), Propranolol (prescribed by cardio for tachycardia) and is transitioning from Zyprexa (due to weight gain) to Rexulti. Cardiac: She reports she had been following with cardiology regularly for her palpitations and RBBB. She is on propranolol QD. She is on Vyvanse from psychiatry - which has been increasing. She notes no change in her palpitations. TMJ: She has known hx of TMJ pain. She has an oral appliance/mouth guard. She has seen PT and OT. Low Lying Cerebellar tonsils: Known hx of low lying cerebellar tonsiles (3mm). Followed previously by brain team- no intervention needed. Migraines: She reports a hx of migraines particularly when she was young. She takes Imitrex prn which is rarely. She is on gabapentin (from PCP for chronic pain) and Propranolol (from cardiology for tachycardia) C-spine: She reports ongoing neck pain and upper back pain. She has had imaging including and MRI. Hx of C-spine surgery (cervical dissection and fusion) 08/2023. She has seen PT and OT. Much better since surgery. Is on Gabapentin 100mg 2 po BID. IBS: She reports a history of irritable bowel syndrome. She has had a colonoscopy in the past - done at [facility]. She takes Bentyl prn with benefit. PUD: She reports a history of a gastric ulcer. She has had an EGD in the past - done at [facility]. She takes pantoprazole daily. She also takes naproxen daily. Fibromyalgia: Previously dx with Fibromyalgia. She has seen PT/OT - great benefit in the past. Is on Gabapentin 100mg 2 po BID and Celebrex QD. She inquires about restarting Tizanidine for qhs to help with her upper back muscular pain/tightness. Nephrolithiasis: She has a hx of nephrolithiasis. 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 She has a history of abnormal cells and required treatment. She recently had an elective bilateral salpingectomy - had endometrial biopsy as well. She is on combination OBC for her migraines. Obesity: She's frustrated with her weight gain. She attributes it to her mood stabilizers - occurred with Seroquel, Zyprexa. She inquires about the shots to help her weight. Objective BP 121/85 Pulse 73 Temp 36.6 ?C (97.8 ?F) (Temporal) Ht 154.9 cm (5' 1 ) Wt 86.6 kg (191 lb) LMP 07/19/2023 (Exact Date) SpO2 99% BMI 36.09 kg/m? Physical Exam HENT: Head: Normocephalic and atraumatic. Nose: Nose normal. Mouth/Throat: Pharynx: Uvula midline. Eyes: Pupils: Pupils are equal, round, and reactive to light. Neck: Thyroid: No thyromegaly. Cardiovascular: Rate and Rhythm: Normal rate and regular rhythm. Heart sounds: Normal heart sounds. No murmur heard. Pulmonary: Effort: Pulmonary effort is normal. Breath sounds: Normal breath sounds. Abdominal: Palpations: Abdomen is soft. There is no mass. Tenderness: There is no abdominal tenderness. There is no guarding. Musculoskeletal: General: Normal range of motion. Cervical back: Normal range of motion and neck supple. Skin: General: Skin is warm and dry. Findings: No rash. Neurological: Mental Status: She is alert and oriented to person, place, and time. Psychiatric: Judgment: Judgment normal. Assessment AND Plan Routine general medical examination at a health care facility Labs - reviewed CBC CMP - non fasting Lipids - dyslipidemia Recommend lower cholesterol diet Zyprexa being cross tapered to Rexulti in hopes of less metabolic SE (obesity) Repeat in 3-4 months TSH Vit D - low, start Rx weekly Repeat in 3-4 months A1C as POC due to weight gain - nml Preventative Mammo: Ordered today Pt might go outside of [facility] near her home Pap: Followed by CHIEF ORDER DISPATCHER EGD/Colonoscopy: 08/2022 okay Declines COVID and flu vaccination Hep C screening ordered Fibromyalgia with upper back pain Already on Gabapentin and Celebrex regularly Pt inquires about tizanidine as she previously found it beneficial I will send letter to [facility] to clarify if they have any concerns as they are prescribing insomnia tx (unsure if they will be changing plan of care) Psychiatrist Bre Tineo [phone] [address] [place] [address] ABA Matthews Observed: 10/05/2024 12:00 AM Status: COMPLETED Source: [facility] Telephone (Fabricly) BRIANNA BYERS ([id number]) 1985 F Date Time Provider Department 10/05/24 [facility] During your visit today, we recorded the following information about you: Reuben Agrawal PA-C 10/05/2024 12:22 PM Signed Letter placed in action outbox. Please fax to psychiatrist (will need to call to get fax number) Psychiatrist Bre Tineo [phone] [address] [facility] [place] [place] [address] ABA Matthews Alexandra, MA 10/06/2024 8:07 AM Signed Called for fax number. Faxed letter to [phone] Godfrey Martin MA October 06, 2024 8:07 AM Allergies As of Date: 10/05/2024 Noted Allergy Reaction CARIPRAZINE 12/29/2021 14 - Other: See Comments 16 - Unknown IOTHALAMIC ACID 08/10/2013 14 - Other: See Comments METOCLOPRAMIDE 08/10/2013 14 - Other: See Comments PENICILLINS 12/18/2018 4 - Hives REGLAN (METOCLOPRAMIDE HCL) 12/30/2009 1 - Mental Status Change Date Reviewed: 10/05/2024 Reviewed by: Carline Butcher MA - Fully Assessed Reason for Visit: Letter [264] Prescriptions as of 10/06/2024 - REXULTI 3 mg tablet Take 2 mg by mouth once daily. - buPROPion XL (WELLBUTRIN XL) 300 mg 24 hr tablet Take 300 mg by mouth once daily. - cloNIDine HCl (CATAPRES) 0.1 mg tablet Take 0.1 mg by mouth two times a day as needed. For Anxiety - eszopiclone (LUNESTA) 2 mg Take 2 mg by mouth daily at bedtime. - OLANZapine (ZYPREXA) 15 mg tablet Take 15 mg by mouth once daily. - lisdexamfetamine (VYVANSE) 60 mg capsule Take 1 capsule by mouth once daily for 30 days. - ergocalciferol 50,000 unit capsule (VITAMIN D2, DRISDOL) Take 1 capsule by mouth one time a week. - cetirizine (ZYRTEC) 10 mg tablet TAKE 1 TABLET BY MOUTH EVERYDAY AT BEDTIME - celecoxib (CELEBREX) 200 mg capsule Take 1 capsule by mouth once daily. - gabapentin (NEURONTIN) 100 mg capsule Take 2 capsules by mouth two times a day for 90 days. - pantoprazole DR (PROTONIX) 40 mg tablet Take 1 tablet by mouth every afternoon. - SUMAtriptan (IMITREX) 50 mg tablet Take 1 tablet (50 mg) by mouth as needed for migraine headache (see administration instructions). at onset of headache. May repeat after 2 hours. - propranolol ER (INDERAL LA) 80 mg 24 hr capsule TAKE 1 CAPSULE BY MOUTH EVERY DAY - cyanocobalamin (VITAMIN B-12) 1,000 mcg tab Take 1 tablet by mouth every afternoon. - BLISOVI 24 FE 1 mg-20 mcg (24)/75 mg (4) Take 1 tablet by mouth every afternoon. - albuterol HFA (PROVENTIL HFA) 90 mcg/actuation inhaler Inhale 1-2 Puffs as instructed every 4 hours as needed for wheezing/shortness of breath. - guaiFENesin (MUCINEX) 600 mg 12 hr tablet Take 1,200 mg by mouth twice daily as needed for cold/allergy symptoms. - dicyclomine (BENTYL) 10 mg capsule Take 10 mg by mouth as needed. 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] 04/09/2023 ANA (generalized anxiety disorder) [F41.1] 04/09/2023 MDD (major depressive disorder), recurrent epis*04/09/2023 Former smoker [Z87.891] 08/03/2023 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*08/24/2023 Status post cervical spinal arthrodesis [Z98.1] 08/24/2023 S/P cervical spinal fusion [Z98.1] 08/24/2023 Vitamin D deficiency [E55.9] 10/05/2024 Upper back pain [M54.9] 10/05/2024 Encounter Status:Closed by GODFREY MARTIN on 10/06/24 LIPID 1995 PNL SERPL Collected: 025 1:02 PM Status: F Source: [facility] Order Comment: Specimen Type : BLOOD SPECIMEN Ordering Facility: [facility] Address: [address] [place] [address] TYPE CODE TESTS RESULT OUT OF RANGE REFERENCE UNITS LAB 2093-3(LOINC) Cholest SerPl-mCnc 221 High <200 mg/dL Result Comment: <200 mg/dL, Desirable 200-239 mg/dL, Borderline high >239 mg/dL, High LAB 2571-8(LOINC) Trigl SerPl-mCnc 300 High <150 mg/dL Result Comment: <150 mg/dL, Normal 150-199 mg/dL, Borderline high 200-499 mg/dL, High >499 mg/dL, Very high LAB 2085-9(LOINC) HDLc SerPl-mCnc 43 >39 mg/dL Result Comment: 40-59 mg/dL, Acceptable >59 mg/dL, High: Negative risk factor for coronary heart disease <40 mg/dL, Low: Positive risk factor for coronary heart disease LAB 07875-5(LOINC) NonHDLc SerPl-mCnc 178 High <130 mg/dL Result Comment: <130 mg/dL, Optimal 130-159 mg/dL, Near optimal/above optimal 160-189 mg/dL, Borderline high 190-219 mg/dL, High >219 mg/dL, Very high Secondary prevention optimal non HDL Cholesterol levels are recommended to be <100 mg/dL LAB FT FASTING TIME 5 hrs LAB 79355-7(LOINC) VLDLc SerPl Calc-mCnc 60 High <30 mg/dL LAB 9830-1(LOINC) Cholest/HDL c SerPl 5.14 High <5.10 LAB 2089-1(LOINC) LDLc SerPl-mCnc 118 High <100 mg/dL Result Comment: <100 mg/dL, Optimal 100-129 mg/dL, Near optimal/above optimal 130-159 mg/dL, Borderline high 160-189 mg/dL, High >189 mg/dL, Very high Secondary prevention optimal LDL Cholesterol levels are recommended to be < 70 mg/dL LAB 68477-1(LOINC) LDLc/HDLc SerPl 2.74 High <2.54 Result Comment: Reference: 1. National Cholesterol Education Program ATP III Guideline At-A-Glance Quick Desk Reference: National Heart, Lung, and Blood [place]. National Institutes of Health. 2001: NIH Publication No. 01-3305. 2. An International Atherosclerosis Society position paper: global recommendations for the management of dyslipidemia: executive summary, Atherosclerosis. 2014: 232(2):410-413. Performed By: #### 18907-1 # ### [facility] CLIA [id number] [address] [place] [address] LAB CLIA [id number] [address] [place], [place] [address] #### TSHRF #### [facility] CLIA [id number] [address] [place] [address] [place] TSH W/REFLEX FT4 Collected: 5 1:02 PM Status: F Source: [facility] Order Comment: Specimen Type : BLOOD SPECIMEN Ordering Facility: [facility] Address: [address] [place] [address] TYPE CODE TESTS RESULT OUT OF RANGE REFERENCE UNITS LAB 3016-3(LOINC) TSH SerPl-aCnc 1.560 0.270-4.200 mIU/L Result Comment: If the patie nt is , TSH reference range varies by gestational period: First Trimester (weeks 9-12): 0.180-2.990 mIU/L Second Trimester: 0.110-3.980 mIU/L Third Trimester: 0.480-4.710 mIU/L Oziel Chan et al. A Practical Approach for the Verifications and Determination of Site- and Trimester-Specific Reference Intervals for Thyroid Function tests in . Thyroid, 2019:29:3:412-420. Soren E, et al. 2017 Guidelines of the [place] Thyroid Association for the Diagnosis and Management of Thyroid Disease during and the . Thyroid, 2017:27:3:315-389. Performed By: #### 79826-6 # ### [facility] CLIA [id number] [address] [place], [place] [id number] [facility] CLIA [id number] [address] [place] [address] #### TSHRF #### [facility] CLIA [id number] [address] [place], [place] [address] [place] 25(OH)D3 SERPL-MCNC Collected: 10/02/2024 1:[address] atus: F Source: [facility] Order Comment: Specimen Type : BLOOD SPECIMEN Ordering Facility: [facility] Address: [address] [place] [address] TYPE CODE TESTS RESULT OUT OF RANGE REFERENCE UNITS LAB 1988-09([facility]) 25(OH)D3 SerPl-mCnc 21.5 Low 31.0-80.0 ng/mL Performed By: #### 1988-09 ## ## [facility] CLIA [id number] [address] [place], [place] [address] [facility] [place] COMP METAB 2000 PNL SERPL Collected: 1:02 PM Status: F Source: [facility] Order Comment: Specimen Type : BLOOD SPECIMEN Ordering Facility: [facility] Address: [address] [place] [address] TYPE CODE TESTS RESULT OUT OF RANGE REFERENCE UNITS LAB 2885-2(LOINC) Prot SerPl-mCnc 7.3 6.3-8.0 g/dL LAB 1751-7(LOINC) Albumin SerPl-mCnc 4.5 3.9-4.9 g/dL LAB 07502-0(LOINC) Calcium SerPl-mCnc 9.8 8.5-10.2 mg/dL LAB 1975-2(LOINC) Bilirub SerPl-mCnc 0.3 0.2-1.3 mg/dL LAB 6768-6(LOINC) ALP SerPl-cCnc 100 34-123 U/L LAB 1920-8(LOINC) AST SerPl-cCnc 17 13-35 U/L LAB 1742-6(LOINC) ALT SerPl-cCnc 20 7-38 U/L LAB 2345-7(LOINC) Glucose SerPl-mCnc 103 High 74-99 mg/dL Result Comment: The [place] Diabetes Association (ADA) provides guidance for cutoff [...] Standards of Medical Care in Diabetes 2016, [place] Diabetes Association. Diabetes Care. 2016.39(Suppl 1). LAB 3094-0(LOINC) BUN SerPl-mCnc 12 7-21 mg/ dL LAB 2160-0(LOINC) Creat SerPl-mCnc 0.98 High 0.58-0.96 mg/dL LAB 2951-2(LOINC) Sodium SerPl-sCnc 139 136-144 mmol/L LAB 2823-3(LOINC) Potassium SerPl-sCnc 4.0 3.7-5.1 mmol/L LAB 2075-0(LOINC) Chloride SerPl-sCnc 103 98-107 mmol/L LAB 2028-9(LOINC) CO2 SerPl-sCnc 22 22-30 mmo l/L LAB 34150-2(LOINC) Anion Gap SerPl-sCnc 14 8-15 mmol/L LAB 62089-7(LOINC) Creatinine + eGFR Pnl SerPlBld 75 >=60 mL/min/1 .73m??? Result Comment: Estimated Gl omerular Filtration Rate (eGFR) is calculated using the 2020 CKD-EPI creatinine equation. This equation utilizes serum creatinine, sex, and age as parameters. The creatinine assay has traceable calibration to isotope dilution-mass spectrometry. Refer to KDIGO guidelines for clinical interpretation. In patients with unstable renal function, e.g. those with acute kidney injury, the eGFR may not accurately reflect actual GFR. Performed By: #### 87116-5 # ### [facility] CLIA [id number] [address] [place] [address] CBC W AUTO DIFF BLD Collected: 10/02/2024 1:[address] atus: F Source: [facility] Order Comment: Specimen Type : BLOOD SPECIMEN Ordering Facility: [facility] Address: [address] [place] [address] TYPE CODE TESTS RESULT OUT OF RANGE REFERENCE UNITS LAB 6690-2(LOINC) WBC # Bld Auto 8.00 3.70-11.00 k/uL LAB 789-8([facility]) RBC # Bld Auto 4.60 3.90-5.20 m/ uL LAB 718-7([facility]) Hgb Bld-mCnc 13.9 11.5-15.5 g/dL LAB 4544-3([facility]) Hct VFr Bld Auto 40.0 36.0-46.0 % LAB 787-2([facility]) MCV RBC Auto 87.0 80.0-100.0 fL LAB 785-6([facility]) MCH RBC Qn Auto 30.2 26.0-34.0 p g LAB 786-4([facility]) MCHC RBC Auto-mCnc 34.8 30.5-36.0 g/dL LAB 37893-6([facility]) RDW RBC-Rto 13.0 11.5-15.0 % LAB 777-3([facility]) Platelet # Bld Auto 325 150-400 k/uL LAB 27058-5([facility]) PMV Bld Auto 9.2 9.0-12.7 fL LAB 770-8([facility]) Neutrophils/leuk NFr Bld Auto 58.3 % LAB 751-8([facility]) Neutrophils # Bld Auto 4.67 1.45-7.50 k/uL LAB 736-9([facility]) Lymphocytes/leuk NFr Bld Auto 35.4 % LAB 731-0([facility]) Lymphocytes # Bld Auto 2.83 1.00-4.00 k/uL LAB 5905-5([facility]) Monocytes/leuk NFr Bld Auto 5.4 % LAB 742-7([facility]) Monocytes # Bld Auto 0.43 <0.87 k/uL LAB 713-8([facility]) Eosinophil/leuk NFr Bld Auto 0.0 % LAB 711-2([facility]) Eosinophil # Bld Auto <0.03 <0.46 k/uL LAB 706-2([facility]) Basophils/leuk NFr Bld Auto 0.3 % LAB 704-7([facility]) Basophils # Bld Auto <0.03 <0.11 k/uL LAB 44482-4([facility]) Imm Granulocytes/yaneth k NFr Bld Auto 0.6 % LAB 86570-4(LOINC) Imm Granulocytes # Bld Auto 0.05 <0.10 k/uL LAB 50158-3(LOINC) nRBC/100 WBC Bld-Rto 0.0 /100 WBC LAB 771-6(LOINC) nRBC # Bld Auto <0.01 <0.01 k/u L LAB 33179-4(LOINC) Differential method Bld Auto Performed By: #### 22580-0 # ### [facility] CLIA [id number] [address] [place] [address] CNOV Observed: 08/04/2024 3:40 PM Status: COMPLETED Source: [facility] Office Visit (SPSLUH) BRIANNA BYERS ([id number]) 1985 F Date Time Provider Department 08/04/24 3:40 PM JOO CRUZ [facility] During your visit today, we recorded the following information about you: Weight Height 85.6 kg 1.524 m Joo Cruz MD 08/04/2024 3:41 PM Signed SPINE SURGERY FOLLOW UP This is an in-person visit. SERVICE DATE: 08/04/2024 SURGERY DATE: ACDF C6/7 on (Date: 08/24/2023) Brianna Byers is seen for 1 year post operative follow up. Patient reports she is doing fantastic. She has no neck pain she has no dysphagia her myelopathic symptoms are nearly completely resolved. 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 She has no issues with her incision she is very pleased with her recovery ANTIPLATELET OR ANTICOAGULATION STATUS: No Patient Entered Questionnaires 01/21/2024 08/02/2024 08/04/2024 Spine Questions Pain Location: Upper back/torso Upper back/torso Pain Duration: 1 to 5 years More than 5 years Pain over last 6 months: Every day or nearly every day in the past 6 months At least half the days in the past 6 months Symptoms from neck/cervical spine: Yes No Employment Status: Looking for work, unemployed Off work 1 month or more due to back/neck pain: Yes Applied for/receive disability/WC due to low back/neck pain Yes Involved in law suit/legal claim: No 08/10/2023 Spine Red Flags Any type of cancer: No Unexplained fever: No Bowel or bladder disfunction: No Unintentional weight loss: No Osteoporosis: No 08/10/2023 10/31/2023 01/21/2024 Neck Questionnaires Benzel Modified NITIN Score Incomplete 13 (Moderate Myelopathy Symptoms) 13 (Moderate Myelopathy Symptoms) PROMIS Score Percentiles 01/21/2024 08/02/2024 08/04/2024 Physical Health Physical Function Percentile 7 24* Sleep Percentile 7 4 Fatigue Percentile 3 0 Pain Interference Percentile 0 4 10/31/2023 01/21/2024 08/02/2024 PROMIS SOCIAL ROLE SCORE Social Role Satisfaction Percentile 42 8 24* 07/02/2023 10/31/2023 08/04/2024 PROMIS Global Health Scale Physical Health Percentile 4 7 7 Mental Health Percentile 13 13 2 Percentiles provide an indication of how the patient's score ranks in relation to the general population. Higher percentile rankings indicate better function/quality of life. 50th percentile is the average of the general population and indicates half of respondents had a worse score. Descriptive Summary for PROMIS Physical Function T-score = 43 (Percentile 24) Little difficulty - Walk more than a mile (1.6 km). Little difficulty - Do chores such as vacuuming or yard work. Depression Screenin10/31/2023 01/21/2024 08/04/2024 PHQ-9 Score 18 13 13 13 22 Multiple values from one day are sorted in reverse-chronological order 10/31/2023 01/21/2024 08/04/2024 PHQ-9 Self-harm Question Question 9 Not at [...] groups. SENSORY: Normal sensory exam GAIT: Normal. REFLEXES: +2 to bilateral U/L extremities. PROPRIOCEPTION: Normal. DATA REVIEW [facility] records independently reviewed Upright x-rays reviewed demonstrating no evidence of hardware failure, there is apparent osseous fusion, I do believe there is a rotational component to this updated x-ray, there appears to be some osteolysis Of the C6 body due to C5 flexion moment. 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 1. 1 year status post anterior cervical dissection and fusion with improvement in preoperative symptoms. She will follow-up in 1 year for an x-ray. We discussed the osteolysis on her x-ray. She has no neck pain, she is completely asymptomatic. She is very happy. All questions were answered she was thanked for the encounter and in agreement with plan 2. Follow up: Following above Imaging Ordered: XR cervical The majority of the visit was spent counseling and/or coordinating care for the patient. The patient was counseled regarding cervical. Total face to face time was 30 minutes. SIGNATURE: Joo Cruz MD PATIENT NAME: Brianna Byers DATE: August 04, 2024 TIME: 3:04 PM PAGER: Referring Provider: JOO CRUZ [[id number]] Allergies As of Date: 08/04/2024 Noted Allergy Reaction CARIPRAZINE 12/29/2021 14 - Other: See Comments 16 - Unknown IOTHALAMIC ACID 08/10/2013 14 - Other: See Comments METOCLOPRAMIDE 08/10/2013 14 - Other: See Comments PENICILLINS 12/18/2018 4 - Hives REGLAN (METOCLOPRAMIDE HCL) 12/30/2009 1 - Mental Status Change Date Reviewed: 08/04/2024 Reviewed by: Amy Ibanez MA - Fully Assessed Reason for Visit: Post Op [174] Cmt: 1 year imaging done Primary Visit Diagnosis: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) [M48.02, G99.2] Prescriptions as of 08/04/2024 - cetirizine (ZYRTEC) 10 mg tablet TAKE 1 TABLET BY MOUTH EVERYDAY AT BEDTIME - celecoxib (CELEBREX) 200 mg capsule Take 1 capsule by mouth once daily. - gabapentin (NEURONTIN) 100 mg capsule Take 2 capsules by mouth two times a day for 90 days. - pantoprazole DR (PROTONIX) 40 mg tablet Take 1 tablet by mouth every afternoon. - SUMAtriptan (IMITREX) 50 mg tablet Take 1 tablet (50 mg) by mouth as needed for migraine headache (see administration instructions). at onset of headache. May repeat after 2 hours. - propranolol ER (INDERAL LA) 80 mg 24 hr capsule TAKE 1 CAPSULE BY MOUTH EVERY DAY - gabapentin (NEURONTIN) 100 mg capsule Take 2 capsules by mouth every 12 hours for 30 days. - OLANZapine (ZYPREXA) 5 mg tablet Take [...] 20 mg by mouth once daily. - guaiFENesin (MUCINEX) 600 mg 12 hr tablet Take 1,200 mg by mouth twice daily as needed for cold/allergy symptoms. - dicyclomine (BENTYL) 10 mg capsule Take 10 mg by mouth as needed. 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] 04/09/2023 ANA (generalized anxiety disorder) [F41.1] 04/09/2023 MDD (major depressive disorder), recurrent epis*04/09/2023 Former smoker [Z87.891] 08/03/2023 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*08/24/2023 Status post cervical spinal arthrodesis [Z98.1] 08/24/2023 S/P cervical spinal fusion [Z98.1] 08/24/2023 Level of Service: OFFICE/OUTPATIENT ESTABLISHED LOW MDM 20 MIN [50114] Additional E/M codes: VISIT CPLX INHERENT EANDM ASSOC WITH MED * Encounter Status:Closed by BUTT, BILAL MISTY on 08/04/24 XR CERVICAL 2V AP/LAT Observed: 08/04/19 3:25 PM Status: F Source: [facility] * * *Final Report* * * DATE OF EXAM: Aug 04 2024 3:25PM LUX 5308 - XR CERVICAL 2V AP/LAT / PROCEDURE REASON: multiple diagnoses * * * * Physician Interpretation * * * * PROCEDURE: Cervical spine INDICATION: 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 Evidence for partial incorporation of the bone plug. Mild degenerative disc disease with slight anterolisthesis at C5-6, greater than previous. No fracture. Prevertebral soft tissues are within normal limits. IMPRESSION: Stable postoperative change. Progressive degenerative disc disease at C5-6 Technical Writer And Editor: PSCNina Transcribe Date/Time: Aug 07 2024 1:07P Dictated by : ROMY NOBLES MD This examination was interpreted and the report reviewed and electronically signed by: ROMY NOBLES MD on Aug 07 2024 1:09PM EST [id number] Observed: 08/04/2024 3:04 PM Status: COMPLETED Source: [facility] HNO ID: [id number] Author: JOO CRUZ MD Service: ? Author Type: Physician Type: Progress Notes Filed: 08/04/2024 15:41 Note Text: SPINE SURGERY FOLLOW UP This is an in-person visit. SERVICE DATE: 08/04/2024 SURGERY DATE: ACDF C6/7 on (Date: 08/24/2023) Brianna Byers is seen for 1 year post operative follow up. Patient reports she is doing fantastic. She has no neck pain she has no dysphagia her myelopathic symptoms are nearly completely resolved. 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 She has no issues with her incision she is very pleased with her recovery ANTIPLATELET OR ANTICOAGULATION STATUS: No Patient Entered Questionnaires 01/21/2024 08/02/2024 08/04/2024 Spine Questions Pain Location: Upper back/torso Upper back/torso Pain Duration: 1 to 5 years More than 5 years Pain over last 6 months: Every day or nearly every day in the past 6 months At least half the days in the past 6 months Symptoms from neck/cervical spine: Yes No Employment Status: Looking for work, unemployed Off work 1 month or more due to back/neck pain: Yes Applied for/receive disability/WC due to low back/neck pain Yes Involved in law suit/legal claim: No 08/10/2023 Spine Red Flags Any type of cancer: No Unexplained fever: No Bowel or bladder disfunction: No Unintentional weight loss: No Osteoporosis: No 08/10/2023 10/31/2023 01/21/2024 Neck Questionnaires Benzel Modified NITIN Score Incomplete 13 (Moderate Myelopathy Symptoms) 13 (Moderate Myelopathy Symptoms) PROMIS Score Percentiles 01/21/2024 08/02/2024 08/04/2024 Physical Health Physical Function Percentile 7 24* Sleep Percentile 7 4 Fatigue Percentile 3 0 Pain Interference Percentile 0 4 10/31/2023 01/21/2024 08/02/2024 PROMIS SOCIAL ROLE SCORE Social Role Satisfaction Percentile 42 8 24* 07/02/2023 10/31/2023 08/04/2024 PROMIS Global Health Scale Physical Health Percentile 4 7 7 Mental Health Percentile 13 13 2 Percentiles provide an indication of how the patient's score ranks in relation to the general population. Higher percentile rankings indicate better function/quality of life. 50th percentile is the average of the general population and indicates half of respondents had a worse score. Descriptive Summary for PROMIS Physical Function T-score = 43 (Percentile 24) Little difficulty - Walk more than a mile (1.6 km). Little difficulty - Do chores such as vacuuming or yard work. Depression Screenin10/31/2023 01/21/2024 08/04/2024 PHQ-9 Score 18 13 13 13 22 Multiple values from one day are sorted in reverse-chronological order 10/31/2023 01/21/2024 08/04/2024 PHQ-9 Self-harm Question Question 9 Not at all Not at all Not at all PHQ-9 Self-Harm (Item 9) response options: 0 Not at all 1 Several days 2 More than half the days 3 Nearly every day PHQ-9 Levels: 0-4 No to mild depression 5-9 Mild depression 10-14 Moderate depression 15-19 Moderately severe depression 20-27 Severe depression PHYSICAL EXAM: [facility] 07/19/2023 (Exact Date) GENERAL APPEARANCE: Well nourished, well developed, and no apparent distress. NEURO PSYCH: Patient oriented to person, place, and time. Mood pleasant. Benign affect. MUSCULOSKELETAL VISUAL INSPECTION CERVICAL: WNL THORACIC: WNL LUMBAR: WNL MOTOR: 5/5 in all muscle groups. SENSORY: Normal sensory exam GAIT: Normal. REFLEXES: +2 to bilateral U/L extremities. PROPRIOCEPTION: Normal. DATA REVIEW [facility] records independently reviewed Upright x-rays reviewed demonstrating no evidence of hardware failure, there is apparent osseous fusion, I do believe there is a rotational component to this updated x-ray, there appears to be some osteolysis Of the C6 body due to C5 flexion moment. 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 1. 1 year status post anterior cervical dissection and fusion with improvement in preoperative symptoms. She will follow-up in 1 year for an x-ray. We discussed the osteolysis on her x-ray. She has no neck pain, she is completely asymptomatic. She is very happy. All questions were answered she was thanked for the encounter and in agreement with plan 2. Follow up: Following above Imaging Ordered: XR cervical The majority of the visit was spent counseling and/or coordinating care for the patient. The patient was counseled regarding cervical. Total face to face time was 30 minutes. SIGNATURE: Joo Cruz MD PATIENT NAME: Brianna Byers DATE: August 04, 2024 TIME: 3:04 PM PAGER: PROGRESS Observed: 08/04/2024 3:00 PM Status: COMPLETED Source: [facility] HNO ID: [id number] Author: DANIEL KELLER RT(R) Service: Radiology Author Type: Technologist Type: Progress Notes Filed: 08/04/2024 15:27 Note Text: Radiology Service Progress Note PATIENT NAME: Brianna Byers DATE OF SERVICE: August 04, 2024 TIME: 3:26 PM PATIENT IDENTITY VERIFICATION COMPLETED USING TWO (2) IDENTIFIERS: Name and Date of confirmed by patient verbally and Name and Date of confirmed by identification band. FALL SCREENING: Has the patient had 2 falls in the last year or 1 fall with injury or currently using an Ambulatory Assistive Device (Walker, Cane, Wheelchair, Crutches, etc.)? No PATIENT GENDER DATA: Assigned female at . status: : No status: N/A PATIENT RELEVANT IMPLANT DATA REVIEWED: Not Applicable PATIENT PRESENTS WITH AN IMPLANTABLE OR ATTACHED BRAZER HELPER INDUCTION: No RADIOLOGY DEPARTMENT: General X-ray: Exam(s) Completed: Spine X-Ray(s): Cervical AP / LAT PERIPHERAL IV DATA: Not applicable SIGNED BY: RT Deonte(R) August 04, 2024 3:26 PM ALLERGIES DATE TYPE / CODE NAME / CODE REACTION SEVERITY SOURCE 12/29/2021 DRUG INGREDI/4195 74958(SNOMED CT) CARIPRAZINE OTHER: SEE [facility] 12/18/2018 Drug Class/411708 003(SNOMED CT) PENICILLINS HIVES [facility] 08/10/2013 DRUG INGREDI/4195 58821(SNOMED CT) METOCLOPRAMIDE OTHER: SEE [facility] 08/10/2013 DRUG INGREDI/4195 07722(SNOMED CT) IOTHALAMIC ACID OTHER: SEE [facility] 08/09/2013 /[id number] (SNOMED CT) iothalamate Unknown [facility] 12/30/2009 DRUG INGREDI/4195 96364(SNOMED CT) METOCLOPRAMIDE HCL Mental Chg [facility] [id number] (SNOMED CT) amoxicillin 179146022 Severe (Severity Modifier) (Qualifier Value) [facility] DON248236056 (SNOMED CT) Augmentin unk Severe (Severity Modifier) (Qualifier Value) [facility] DON048699451 (SNOMED CT) Reglan [facility] DON149375125 (SNOMED CT) Vraylar unk [facility] ENCOUNTERS ADMIT/DISCHARGE ACCOUNT NUMBER ADMITTING ENCOUNTER CLASS LOCATION SOURCE 03/01/2025/03/01/20 [id number] [facility] HospitalBuild ing:[facility] 01/29/2025/01/30/20 [id number] [facility] Hospital[facility] ing:[facility] 01/29/2025/01/30/20 25 [id number] [facility] HospitalBuild ing:[facility] 01/26/2025/01/27/20 [id number] [facility] HospitalBuild ing:[facility] 01/26/2025/01/27/20 [id number] [facility] HospitalBuild ing:[facility] 01/25/2025/01/26/20 [id number] [facility] 01/25/2025/01/26/20 25 [id number] [facility] HospitalBuild ing:L[facility] 01/02/2025 [id number] [facility] FTBuildinNRoom: Y252Ehx: 01 [facility] 01/02/2025/01/05/20 [id number] [facility] FTBuildinNRoom: D455Dof: 01 [facility] 01/02/2025 [id number] Emergency FTMCBuilding: EDRoom: ED-09Bed: CD:[id number] [facility] 12/17/2024 [id number] [facility] 12/12/2024/12/13/19 [id number] Ambulatory [facility] HospitalBuild ing:LNCA [facility] 10/05/2024/10/06/19 [id number] [facility] 10/02/2024/10/03/19 [id number] [facility] 08/04/2024/08/04/19 [id number] [facility] 08/04/2024 [id number] [facility] PAYERS ENCOUNTER GUARANTOR PAYER SUBSCRIBER SOURCE 03/01/2025 Primary Insurance:[employer] MEDICAIDPolicy Number: [id number] Date:5376-12-83Ovcw Name:Francisco BLEDSOE Rocio TALAVERA: [id number] [place] [address] [facility] 01/29/2025 [facility] MEDICA[facility]Policy Number: [id number] Date:3784-31-17Wpnu Name:Francisco BRIANNA Rocio TALAVERA: [id number] [place] [address] [facility] 01/29/2025 [facility]Policy Number: [id number] Date:5873-03-37Qjky Name:X BRIANNA Rocio TALAVERA: [id number] [place] [address] [facility] 01/26/2025 [facility] MEDICAIDPolicy Number: [id number] Date:6553-16-05Anox Name:Francisco PEREZBERRYDOB: [id number] [place] [address] [facility] 01/26/2025 Primary Insurance:[facility] MEDICAIDPolicy Number: [id number] Date:7798-35-31Qvec Name:Francisco Chan GADBERRYDOB: [id number] [place], [facility] 01/25/2025 Primary Insurance:[facility] MEDICAIDPolicy Number: [id number] Date:8959-46-64Iroe Name:Francisco Chan GADBERRYDOB: [id number] [place] [address] [facility] 01/25/2025 Primary Insurance:[facility] MEDICAIDPolicy Number: [id number] Date:5850-99-17Awio Name:Francisco PEREZBERRYDOB: [id number] [place] [address] [facility] 01/02/2025 BRIANNA Chan GADBERRYDOB: FE SANCHEZ DTel: ~~(41 9 (HP) Primary Insurance:CARESOURCEPo licy Number: [id number] Date:6949-03-35NT[address] [address]OI: BRIANNA L JR [facility] 01/02/2025 BRIANNA Chan GADBERRYDOB: FE SANCHEZ DTel: ~~(41 9 (HP) Primary Insurance:CARESOURCEPo licy Number: [id number] Date:8219-06-07ZD [address] [address]OL: BRIANNA NORRIS [facility] 01/02/2025 BRIANNA BYERSDOB: FE SANCHEZ DTel: ~~(41 9 (HP) Primary Insurance:CARESOURCEPo licy Number: [id number] Date:8695-58-44NZ [address] [place] [address]UU: BRIANNA NORRIS [facility] 12/17/2024 Primary Insurance:[employer] MEDICAIDPolicy Number: [id number] Date:6098-22-79Scfx Name:Francisco BYERSDOB: [id number] [address] [place], [address] 12/12/2024 Primary Insurance:[employer] MEDICAIDPolicy Number: [id number] Date:5684-14-20Xrns Name:Francisco BYERSDOB: [id number] [address] [place], [address] 10/05/2024 Primary Insurance:[employer] MEDICAIDPolicy Number: [id number] Date:0293-80-91Cfnr Name:Francisco BYERSDOB: [id number] [address] [place], [address] 10/02/2024 Primary Insurance:[employer] MEDICAIDPolicy Number: [id number] Date:7466-73-93Ksdw Name:Francisco PEREZBERRYDOB: [id number] [address] [place], [address] 08/04/2024 Primary Insurance:[employer] MEDICAIDPolicy Number: [id number] Date:9398-29-17Mshr Name:Francisco BYERSDOB: [id number] [address] [place], [address] 08/04/2024 Primary Insurance:[employer] MEDICAIDPolicy Number: [id number] Date:8631-26-04Ehca Name:Francisco BRIANNA Rocio BYERSDOB: [id number] [place] [address] [facility]
--- OUTSIDE RECORDS SUMMARY | 2025-03-07 07:00 | XMS_ITS ---
Author Organization [facility] es Address [address] [place] [address] Care Team Providers Care Grizzly Worker Name Role Phone Bre Tineo Primary Care Provider [phone] Nayana Gifford [phone] REASON FOR VISIT 2 week f/u Social History Sex Assigned At : Social History Observation Description Sex Assigned At Female Encounters Encounter Location Date Provider Diagnosis [facility] [place] [address] [place] [address] 2024 Nayana Zaragoza Plan Of Treatment Next Appt Details Provider Name:Bre rene, 04/13/2025 05:15:00 PM, [address] [facility] [place], [address], Provider Name:Nayana Zaragoza, 1 02:45:00 PM, [address] [place], [address], Progress Notes * LADI YUN LDOB:1984 (40 yo F)Acc No.[id number]:03/07/2025 F/U - Patient Patient: LADI LEONG Provider: Jose ZARAGOZA :1985 A ge:40 Y S ex:Female Date:03/07/2025 Address:[address], [place], [place] Pcp:Bre Tineo Subjective: * Chief Complaints: * 1 . 2 week f/u. Objective: Therapeutic Interventions: Assessment: Plan: * Images: Care Plan Details* * Electronic signature of AJCOB Giles on 04/05/2025 at 07:41 AM EDT Sign off status: Pending * Provider: Jose ZARAGOZA Date: 0 03/07/2025 Generated for Deborah spears/Gin/Harshad on: 1 07:41 AM EDT
--- OUTSIDE RECORDS SUMMARY | 2025-03-28 05:00 | XMS_ITS ---
Author Organization [facility] es Address [address] [place] [address] Care Team Providers Care Barista Name Role Phone Bre Tineo Primary Care Provider [phone] Nayana Gifford [phone] REASON FOR VISIT BH F/U Social History Sex Assigned At : Social History Observation Description Sex Assigned At Female Encounters Encounter Location Date Provider Diagnosis [facility] [address] [place] [address] 2024 Nayana Zaragoza Plan Of Treatment Next Appt Details Provider Name:Bre rene, 04/13/2025 05:15:00 PM, [address], [address], Provider Name:Nayana Zaragoza, 1 02:45:00 PM, [address] [place], [address], Progress Notes * LADI YUN LDOB:1984 (40 yo F)Acc No.[id number]:03/28/2025 BH F/U - Patient Patient: LADI LEONG Provider: Jose ZARAGOZA :1985 A ge:40 Y S ex:Female Date:03/28/2025 Address:[address], [place], [place] Pcp:Bre Tineo Subjective: * Chief Complaints: * 1 . BH F/U. Objective: Therapeutic Interventions: Assessment: Plan: * Images: Care Plan Details* * Electronic signature of JACOB Giles on 04/05/2025 at 07:41 AM EDT Sign off status: Pending * Provider: Jose ZARAGOZA Date: 0 03/28/2025 Generated for Deborah spears/Gin/Harshad on: 1 07:41 AM EDT
--- OUTSIDE RECORDS SUMMARY | 2025-03-30 13:30 | XMS_ITS ---
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 [employer] Name Role Phone Bre Tineo Primary Care Provider Nayana Prieto Unavailable [phone] REASON FOR VISIT 6 weeks Medications Medication SIG (Take, Route, Frequency, Duration) Notes Start Date End Date Status Atomoxetine HCl 40 MG TAKE 1 CAPSULE BY MOUTH EVERY DAY IN THE MORNING FOR 30 DAYS; Duration: 30 Not-Taking Omeprazole 40 MG 1 capsule 30 minutes before morning meal Orally Once a day Not-Taking Tricor 145 MG 1 tablet orally Once a day Not-Taking Dificid 200 MG 1 tablet Orally Twic e a day for 10 days, then once a day for 20 days Not-Taking Strattera 80 MG 1 capsule in the morning Orally Once a day; Duration: 30 day(s) Not-Taking busPIRone HCl 10 MG TAKE 2 TABLETS BY MOUTH 3 TIMES A DAY NEEDED; Duration: 90 Not-Taking Naproxen 250 MG 1 tablet Orally Twic e a day Not-Taking hydrOXYzine HCl 25 MG TAKE 1-2 TABLETS B Y MOUTH DAILY AT BEDTIME NEEDED FOR 30 DAYS; Duration: 90 Not-Taking Sucralfate 1 GM 1 tablet Orally four times a day Not-Taking Dicyclomine HCl 10 MG 1 capsule Orally F our times a day Not-Taking FLUoxetine HCl 10 MG 1 capsule Orally On ce a day; Duration: 30 day(s) Not-Taking SEROquel XR 50 MG 2 tablet in the evening Orally Once a day; Duration: 30 days Not-Takin g oxyCODONE HCl 5 MG 1 tablet as needed Orally every 6 hrs Not-Taking Turmeric 500 MG 1 capsule Orally onc e a day Not-Taking OLANZapine 15 MG TAKE 1 TABLET BY ALEJANDRO TH EVERY DAY FOR 30 DAYS; Duration: 90 Not-Taking buPROPion HCl ER (XL) 150 MG TAKE 1 TABLET BY MOUTH EVERY DAY IN THE MORNING FOR 30 DAYS; Duration: 90 Not-Taking Imitrex 50 MG 1 tablet at least 2 hours between doses as needed Orally Twice a day Active OLANZapine 10 MG TAKE 1 TABLET BY ALEJANDRO TH EVERY DAY FOR 30 DAYS; Duration: 7 days Not-Taking OLANZapine 2.5 MG take for 7 days and then every other day until complete Orally Once a day; Duration: 10 days 11/02/2024 Not-Taking OLANZapine 5 MG 1 tablet Orally Once a day; Duration: 7 10/16/2024 Not-Taking Folic Acid 1 MG 1 tablet Orally Once a day Active Vitamin B12 1000 MCG 1 tablet Orally Onc e a day Active Ondansetron HCl 8 MG 1 tablet Orally as needed (prn) Active Gabapentin 100 MG 2 capsules Orally twice a day (bid) Active Pantoprazole Sodium 40 MG 1 tablet Orally twice a day (bid) Active Propranolol HCl ER 80 MG 1 capsule Orall y Once a day Active CeleBREX 200 MG 1 capsule with food Orally Once a day Active Blisovi 24 Fe 1-20 MG-MCG(24) 1 tablet Orally Once a day Active tiZANidine HCl 4 MG 2 tablets Orally at bedtime Active Magnesium 200 MG 2 tablets with a ev l Orally Once a day Active cloNIDine HCl 0.1 MG 1 tablet Orally twi ce a day; Duration: 30 days Active Lunesta 2 MG 1 tablet immediately before bedtime Orally Once a day; Duration: 30 days 03/30/2025 05/29/2025 Active Amphetamine-Dextroamphet ER 20 MG 1 capsule in the morning Orally Once a day; Duration: 15 days 03/30/2025 Active Wellbutrin XL 300 MG 1 tablet in the morning Orally Once a day; Duration: 30 days Active lamoTRIgine 200 mg RODGER ONE TABLET BY MOUTH ONCE DAILY FOR 30 DAYS (TAKE WITH THE 100MG); Duration: 30 Not-Taking [place] Carbonate 300 mg TAKE ONE CAPSUL E BY MOUTH THREE TIMES A DAY FOR 30 DAYS; Duration: 30 days Not-Taking Lybalvi 5-10 MG 1 tablet daily for 5 days and then take every other day 4 times and stop Orally Once a day; Duration: 13 days 01/18/2025 Active Rexulti 3 MG 1 tablet Orally Once a day; Duration: 30 days 06/15/2024 Active Wellbutrin XL 150 MG 1 tablet in the morning Orally Once a day; Duration: 30 days 11/02/2024 Active traZODone HCl 150 mg TAKE ONE TABLET BY MOUTH ONCE DAILY AT BEDTIME FOR 30 DAYS; Duration: 30 Not-Taking Omeprazole 40 MG 1 capsule 30 minutes before morning meal Orally Once a day Not-Taking Cetirizine HCl 10 MG 1 tablet Orally Onc e a day Not-Taking Latuda 120 mg TAKE ONE TABLET BY MOUTH ONCE DAILY WITH FOOD FOR 30 DAYS; Duration: 30 Not-Taking lamoTRIgine 100 mg TAKE ONE TABLET BY MOUTH ONCE DAILY FOR 30 DAYS (TAKE WITH THE 200MG); Duration: 30 Not-Taking Singulair 10 MG 1 tablet orally once a day Not-Taking Social History Sex Assigned At : Social History Observation Description Sex Assigned At Female Encounters Encounter Location Date Provider Diagnosis [address] [address] 03/30/2025 Bre Tineo Bipolar depression F 31.30 ; Inattention R41.840 ; Anxiety F41.9 and Psychophysiological insomnia F51.04 Assessments Encounter Date Diagnosis (ICD Code) Assessment Notes Treatment Notes Treatment Clinical Notes Section Notes 03/30/2025 Bipolar depression (ICD-10 - F31.30) Educated on antidepressant. Made aware of Black Box Warning that it can increase suicidal thoughts, especially in minors. If this happens go to the ER. Make the office aware or go to the ER, if you experience seizures or an increase in activity and irritability. Made aware to not abruptly stop medication. Medication can cause headache and nausea. . Denies suicidal or homicidal ideation or plan. No morbid thoughts. Interpersonal issues discussed. Support provided Insight oriented/ Behavior modifying/ Supportive therapy Patient educated on antipsychotic dosing schedule and side effects. Made aware to not abruptly stop the medication. Made aware to notify the office or go to the ER if experience any abnormal repetitive movements. Also, made aware to notify office of any nausea, vomiting, or dizziness. Made aware to not stop medication abruptly. This is an FDA approved use for this medication. Discussed with patient crisis plan. Provided crisis hotline number. [facility] has good support system. Made aware to contact office if has an increase in suicidal thoughts. If outside of office hours, patient to go to the ER. Patient will call the office with any questions or concerns. . 03/30/2025 Inattention (ICD-10 - R41.840) . FDA approved stimulant medication for this age group. Discussed/Denies adverse effects from medication including HTN, tachycardia, insomnia, irritability, headache, or decreased appetite. . All relevant and serious adverse effects were discussed. Standard precautions and potential benefits were discussed. Patient/Guardian consented to begin medication/ continue treatment plan . Patient continues to meet criteria for attention deficit hyperactivity disorder. Pt does not meet criteria for bipolar disorder, major depressive disorder, or other persistent mood disorders. Will continue to monitor the patient for presentation of new symptoms or behaviors. . Continue current treatment; tolerating meds well, compliant; call for problems; questions answered satisfactorily, agreeable to treatment plan . GOALS: . Maintain medication regimen _Improve social and interpersonal functioning _Improve attention and or hyperactivity . follow up 3 months . Crisis Intervention plan was discussed and agreed upon. Patient/Guardian will call 911 in case of emergency. Emergency contact information was provided to the patient/guardian. . OARRS reviewed . 03/30/2025 Anxiety (ICD-10 - F41.9) clonidine: Encouraged to call office or report to the if the patient experiences dizziness or lightheadedness 03/30/2025 Psychophysiological insomnia (ICD-10 - F51.04) . Discussed seriousness of taking hypnotic medication daily and as needed, risks and benefits discussed including risk of addiction and accidental . Pt verbalized understanding. . High risk medications are drugs that have a heightened risk of causing significant patient harm when they are used in error. High risk medicines include medicines: with a low therapeutic index. that present a high risk when administered by the wrong route or when other system errors occur. Please notify provider for any concerns about your medications. . . Informed consent obtained: YES, we discussed the diagnosis/diagnose s, the treatment options, treatment(s) recommended vs. no treatment. We discussed risks and benefits of treatment options, treatment recommendations vs. no treatment. . . Pt is to continue current treatment plan Has good tolerability and compliance with medication Call for problems All questions and concerns discussed . . Informed consent obtained: YES, we discussed the diagnosis/diagnose s, the treatment options, treatment(s) recommended vs. no treatment. We discussed risks and benefits of treatment options, treatment recommendations vs. no treatment. . . Pt is to continue current treatment plan Has good tolerability and compliance with medication Call for problems All questions and concerns discussed . Plan Of Treatment Medication Medication Name Sig Start Date Stop Date Notes cloNIDine HCl 0.1 MG 1 tablet Orally twi ce a day; Duration: 30 days Lunesta 2 MG 1 tablet immediately before bedtime Orally Once a day; Duration: 30 days 03/30/2025 05/29/2025 Amphetamine-Dextroamphet ER 20 MG 1 capsule in the morning Orally Once a day; Duration: 15 days 03/30/2025 Vyvanse 50 MG 1 capsule in the mor [place] Orally Once a day; Duration: 30 days 03/19/2025 Wellbutrin XL 300 MG 1 tablet in the mor [place] Orally Once a day; Duration: 30 days Lybalvi 5-10 MG 1 tablet daily for 5 days and then take every other day 4 times and stop Orally Once a day; Duration: 13 days 01/18/2025 Rexulti 3 MG 1 tablet Orally Once a day; Duration: 30 days 06/15/2024 Wellbutrin XL 150 MG 1 tablet in the mor [place]on Orally Once a day; Duration: 30 days 11/02/2024 Treatment Notes Assessment Notes Bipolar depression Educated on antidepressant. Made aware of Black Box Warning that it can increase suicidal thoughts, especially in minors. If this happens go to the ER. Make the office aware or go to the ER, if you experience seizures or an increase in activity and irritability. Made aware to not abruptly stop medication. Medication can cause headache and nausea. . Denies suicidal or homicidal ideation or plan. No morbid thoughts. Interpersonal issues discussed. Support provided Insight oriented/ Behavior modifying/ Supportive therapy Patient educated on antipsychotic dosing schedule and side effects. Made aware to not abruptly stop the medication. Made aware to notify the office or go to the ER if experience any abnormal repetitive movements. Also, made aware to notify office of any nausea, vomiting, or dizziness. Made aware to not stop medication abruptly. This is an FDA approved use for this medication. Discussed with patient crisis plan. Provided crisis hotline number. [facility] has good support system. Made aware to contact office if has an increase in suicidal thoughts. If outside of office hours, patient to go to the ER. Patient will call the office with any questions or concerns. . Inattention . FDA approved stimulant medication for this age group. Discussed/Denies adverse effects from medication including HTN, tachycardia, insomnia, irritability, headache, or decreased appetite. . All relevant and serious adverse effects were discussed. Standard precautions and potential benefits were discussed. Patient/Guardian consented to begin medication/ continue treatment plan . Patient continues to meet criteria for attention deficit hyperactivity disorder. Pt does not meet criteria for bipolar disorder, major depressive disorder, or other persistent mood disorders. Will continue to monitor the patient for presentation of new symptoms or behaviors. . Continue current treatment; tolerating meds well, compliant; call for problems; questions answered satisfactorily, agreeable to treatment plan . GOALS: . Maintain medication regimen _Improve social and interpersonal functioning _Improve attention and or hyperactivity . follow up 3 months . Crisis Intervention plan was discussed and agreed upon. Patient/Guardian will call 911 in case of emergency. Emergency contact information was provided to the patient/guardian. . OARRS reviewed . Anxiety clonidine: Encourage d to call office or report to the if the patient experiences dizziness or lightheadedness Psychophysiological insomnia . Discussed seriousness of taking hypnotic medication daily and as needed, risks and benefits discussed including risk of addiction and accidental . Pt verbalized understanding. . High risk medications are drugs that have a heightened risk of causing significant patient harm when they are used in error. High risk medicines include medicines: with a low therapeutic index. that present a high risk when administered by the wrong route or when other system errors occur. Please notify provider for any concerns about your medications. . . Informed consent obtained: YES, we discussed the diagnosis/diagnoses, the treatment options, treatment(s) recommended vs. no treatment. We discussed risks and benefits of treatment options, treatment recommendations vs. no treatment. . . Pt is to continue current treatment plan Has good tolerability and compliance with medication Call for problems All questions and concerns discussed . . Informed consent obtained: YES, we discussed the diagnosis/diagnoses, the treatment options, treatment(s) recommended vs. no treatment. We discussed risks and benefits of treatment options, treatment recommendations vs. no treatment. . . Pt is to continue current treatment plan Has good tolerability and compliance with medication Call for problems All questions and concerns discussed . Next Appt Details Follow Up: 2 Weeks, Reason: Provider Name:Bre rene, 04/13/2025 05:15:00 PM, [address] [facility], [address], Provider Name:Nayana Prieto, 1 02:45:00 PM, [address] [place], [address], Progress Notes * LADI YUN LDOB:1984 (40 yo F)Acc No.[id number]:03/30/2025 Behavioral Health Patient: LADI LEONG Appointment Provider: SONIA TRANHNPAltonBC :1985 A ge:40 Y S ex:Female Date:03/30/2025 Address:[facility] [address] , [place], [id number] Subjective: * Chief Complaints: * 6 weeks * HPI: C onstitutional: Patient or guardian consent to the virtual appointment. Verbalized understanding that patient/guardian are financially responsible for visit. Patient is an established patient. The visit via synchronous audio and video only with the use of Doximetry. Patient is in their home and provider is in their office. Present during the appointment are the provider and patient Medical decision: assess effective ness of meds Start:548 Stop:600 P t is tolerating meds well and taking medications daily. . Pt states thah she would like to stop the Lybalvi. Says that it made her anxiety worse. In addition says that the Vyvance is not helping her adhd. . Pt denies mood fluctuation. Energy and motivation are stable. Depressive symptoms are not persistent. Denies episodes of having sadness, anhedonia, isolating behaviors, or crying spells. Anxiety is not controlled. Concentration poor with distractibility. . Sleeping through the night and feels rested upon waking up. Denies Nightmares. Appetite is good. . Denies Euphoria. Pervasive irritability is controlled today. Meaningful relationships intact. Denies increased goal-oriented behavior or increase in purposeless activity. Attending work/school as scheduled. . Denies suicidal or homicidal ideation or plan. No morbid thoughts. Interpersonal issues discussed. Support provided. Insight oriented/ Behavior modifying/ Supportive therapy PLan: Provided pt with weanng instructions for the Lybalvi. She verbalized understanding. Will stop the Vyvanse and will Start adderall . * ROS: C ONSTITUTIONAL: No fever, chills, sweats, weakness SKIN: No jaundice, rash, lesions, petechiae GASTROINTESTINAL: No nausea, vomiting, diarrhea, or GI bleeding MUSCULOSKELETAL: No muscle pain or weakness NEUROLOGIC: No headache, dizziness, numbness, or weakness . * Medical History: * Surgical History: * Hospitalization/Major Diagno stic Procedure: * Medications: T akingPropranolol HCl ER 80 MG Capsule Extended Release 24 Hour 1 capsule Orally Once a day Magnesium 200 MG Tablet 2 tablets with a meal Orally Once a day tiZANidine HCl 4 MG Tablet 2 tablets Orally at bedtime Blisovi 24 Fe 1-20 MG-MCG(24) Tablet 1 tablet Orally Once a day CeleBREX 200 MG Capsule 1 capsule with food Orally Once a day Gabapentin 100 MG Capsule 2 capsules Orally twice a day (bid) Ondansetron HCl 8 MG Tablet 1 tablet Orally as needed (prn) Vitamin B12 1000 MCG Tablet Extended Release 1 tablet Orally Once a day Folic Acid 1 MG Tablet 1 tablet Orally Once a day Pantoprazole Sodium 40 MG Tablet Delayed Release 1 tablet Orally twice a day (bid) Imitrex 50 MG Tablet 1 tablet at least 2 hours between doses as needed Orally Twice a day Wellbutrin XL 150 MG Tablet Extended Release 24 Hour 1 tablet in the morning Orally Once a day Rexulti 3 MG Tablet 1 tablet Orally Once a day cloNIDine HCl 0.1 MG Tablet 1 tablet Orally twice a day Wellbutrin XL 300 MG Tablet Extended Release 24 Hour 1 tablet in the morning Orally Once a day Vyvanse 50 MG Capsule 1 capsule in the morning Orally Once a day Lunesta 2 MG Tablet 1 tablet immediately before bedtime Orally Once a day , stop date 05/29/2025Lybalvi 10-10 MG Tablet 1 tablet Orally Once a day Taking Propranolol HCl ER 80 MG Capsule Extended Release 24 Hour 1 capsule Orally Once a day Taking Magnesium 200 MG Tablet 2 tablets with a meal Orally Once a day Taking tiZANidine HCl 4 MG Tablet 2 tablets Orally at bedtime Taking Blisovi 24 Fe 1-20 MG-MCG(24) Tablet 1 tablet Orally Once a day Taking CeleBREX 200 MG Capsule 1 capsule with food Orally Once a day Taking Gabapentin 100 MG Capsule 2 capsules Orally twice a day (bid) Taking Ondansetron HCl 8 MG Tablet 1 tablet Orally as needed (prn) Taking Vitamin B12 1000 MCG Tablet Extended Release 1 tablet Orally Once a day Taking Folic Acid 1 MG Tablet 1 tablet Orally Once a day Taking Pantoprazole Sodium 40 MG Tablet Delayed Release 1 tablet Orally twice a day (bid) Taking Imitrex 50 MG Tablet 1 tablet at least 2 hours between doses as needed Orally Twice a day Taking Wellbutrin XL 150 MG Tablet Extended Release 24 Hour 1 tablet in the morning Orally Once a day Taking Rexulti 3 MG Tablet 1 tablet Orally Once a day Taking cloNIDine HCl 0.1 MG Tablet 1 tablet Orally twice a day Taking Wellbutrin XL 300 MG Tablet Extended Release 24 Hour 1 tablet in the morning Orally Once a day Taking Vyvanse 50 MG Capsule 1 capsule in the morning Orally Once a day Taking Lunesta 2 MG Tablet 1 tablet immediately before bedtime Orally Once a day , stop date 05/29/2025Taking Lybalvi 10-10 MG Tablet 1 tablet Orally Once a day Not-Taking/PRNbuPROPion HCl ER (XL) 150 MG Tablet Extended Release 24 Hour TAKE 1 TABLET BY MOUTH EVERY DAY IN THE MORNING FOR 30 DAYS OLANZapine 5 MG Tablet 1 tablet Orally Once a day OLANZapine 2.5 MG Tablet take for 7 days and then every other day until complete Orally Once a day OLANZapine 10 MG Tablet TAKE 1 TABLET BY MOUTH EVERY DAY FOR 30 DAYS FLUoxetine HCl 10 MG Capsule 1 capsule Orally Once a day OLANZapine 15 MG Tablet TAKE 1 TABLET BY MOUTH EVERY DAY FOR 30 DAYS Turmeric 500 MG Capsule 1 capsule Orally once a day oxyCODONE HCl 5 MG Tablet 1 tablet as needed Orally every 6 hrs SEROquel XR 50 MG Tablet Extended Release 24 Hour 2 tablet in the evening Orally Once a day hydrOXYzine HCl 25 MG Tablet TAKE 1-2 TABLETS BY MOUTH DAILY AT BEDTIME NEEDED FOR 30 DAYS Naproxen 250 MG Tablet 1 tablet Orally Twice a day busPIRone HCl 10 MG Tablet TAKE 2 TABLETS BY MOUTH 3 TIMES A DAY NEEDED Dicyclomine HCl 10 MG Capsule 1 capsule Orally Four times a day Sucralfate 1 GM Tablet 1 tablet Orally four times a day Omeprazole 40 MG Capsule Delayed Release 1 capsule 30 minutes before morning meal Orally Once a day Atomoxetine HCl 40 MG Capsule TAKE 1 CAPSULE BY MOUTH EVERY DAY IN THE MORNING FOR 30 DAYS Strattera 80 MG Capsule 1 capsule in the morning Orally Once a day Dificid 200 MG Tablet 1 tablet Orally Twice a day for 10 days, then once a day for 20 days Tricor 145 MG Tablet 1 tablet orally Once a day Singulair 10 MG Tablet 1 tablet orally once a day Cetirizine HCl 10 MG Tablet 1 tablet Orally Once a day Omeprazole 40 MG Capsule Delayed Release 1 capsule 30 minutes before morning meal Orally Once a day traZODone HCl 150 mg Tablet TAKE ONE TABLET BY MOUTH ONCE DAILY AT BEDTIME FOR 30 DAYS lamoTRIgine 100 mg Tablet TAKE ONE TABLET BY MOUTH ONCE DAILY FOR 30 DAYS (TAKE WITH THE 200MG) Latuda 120 mg Tablet TAKE ONE TABLET BY MOUTH ONCE DAILY WITH FOOD FOR 30 DAYS [place] Carbonate 300 mg Capsule TAKE ONE CAPSULE BY MOUTH THREE TIMES A DAY FOR 30 DAYS lamoTRIgine 200 mg Tablet RODGER ONE TABLET BY MOUTH ONCE DAILY FOR 30 DAYS (TAKE WITH THE 100MG) Medication List reviewed and reconciled with the patientNot-Taking/PRN buPROPion HCl ER (XL) 150 MG Tablet Extended Release 24 Hour TAKE 1 TABLET BY MOUTH EVERY DAY IN THE MORNING FOR 30 DAYS Not- Taking/PRN OLANZapine 5 MG Tablet 1 tablet Orally Once a day Not-Taking/PRN OLANZapine 2.5 MG Tablet take for 7 days and then every other day until complete Orally Once a day Not-Taking/PRN OLANZapine 10 MG Tablet TAKE 1 TABLET BY MOUTH EVERY DAY FOR 30 DAYS Not-Taking/PRN FLUoxetine HCl 10 MG Capsule 1 capsule Orally Once a day Not-Taking/PRN OLANZapine 15 MG Tablet TAKE 1 TABLET BY MOUTH EVERY DAY FOR 30 DAYS Not-Taking/PRN Turmeric 500 MG Capsule 1 capsule Orally once a day Not- Taking/PRN oxyCODONE HCl 5 MG Tablet 1 tablet as needed Orally every 6 hrs Not-Taking/PRN SEROquel XR 50 MG Tablet Extended Release 24 Hour 2 tablet in the evening Orally Once a day Not-Taking/PRN hydrOXYzine HCl 25 MG Tablet TAKE 1-2 TABLETS BY MOUTH DAILY AT BEDTIME NEEDED FOR 30 DAYS Not-Taking/PRN Naproxen 250 MG Tablet 1 tablet Orally Twice a day Not-Taking/PRN busPIRone HCl 10 MG Tablet TAKE 2 TABLETS BY MOUTH 3 TIMES A DAY NEEDED Not-Taking/PRN Dicyclomine HCl 10 MG Capsule 1 capsule Orally Four times a day Not-Taking/PRN Sucralfate 1 GM Tablet 1 tablet Orally four times a day Not-Taking/PRN Omeprazole 40 MG Capsule Delayed Release 1 capsule 30 minutes before morning meal Orally Once a day Not-Taking/PRN Atomoxetine HCl 40 MG Capsule TAKE 1 CAPSULE BY MOUTH EVERY DAY IN THE MORNING FOR 30 DAYS Not-Taking/PRN Strattera 80 MG Capsule 1 capsule in the morning Orally Once a day Not-Taking/PRN Dificid 200 MG Tablet 1 tablet Orally Twice a day for 10 days, then once a day for 20 days Not-Taking/PRN Tricor 145 MG Tablet 1 tablet orally Once a day Not-Taking/PRN Singulair 10 MG Tablet 1 tablet orally once a day Not-Taking/PRN Cetirizine HCl 10 MG Tablet 1 tablet Orally Once a day Not-Taking/PRN Omeprazole 40 MG Capsule Delayed Release 1 capsule 30 minutes before morning meal Orally Once a day Not- Taking/PRN traZODone HCl 150 mg Tablet TAKE ONE TABLET BY MOUTH ONCE DAILY AT BEDTIME FOR 30 DAYS Not-Taking/PRN lamoTRIgine 100 mg Tablet TAKE ONE TABLET BY MOUTH ONCE DAILY FOR 30 DAYS (TAKE WITH THE 200MG) Not-Taking/PRN Latuda 120 mg Tablet TAKE ONE TABLET BY MOUTH ONCE DAILY WITH FOOD FOR 30 DAYS Not-Taking/PRN [place] Carbonate 300 mg Capsule TAKE ONE CAPSULE BY MOUTH THREE TIMES A DAY FOR 30 DAYS Not-Taking/PRN lamoTRIgine 200 mg Tablet RODGER ONE TABLET BY MOUTH ONCE DAILY FOR 30 DAYS (TAKE WITH THE 100MG) Medication List reviewed and reconciled with the patient Objective: * Vitals: * Examination: G eneral Examination: . AIMS EXAM: . AIMS Muscles of Facial Expression: None AIMS Lips and Perioral Area: None AIMS Jaw Area Involuntary Movements: None AIMS Tongue Involuntary Movements: None AIMS Upper Arms, Wrists, Hands, Fingers: None AIMS Lower Legs, Knees, Ankles, Toes: None AIMS Overall Abnormal Movement Severity: None AIMS Incapacitation Abnormal Movement: None AIMS Self Awareness of Abnormal Movement: Aware, None noted AIMS Current Teeth, Denture Problems: No AIMS Movements Disappear in Sleep: No . . MENTAL STATUS EXAM: . Appearance: cooperative, pleasant Behavior/Motor Activity: N/A Gait/Station: N/A Speech: Normal Mood: Good Affect: Full Thought processes/Associations: Logical and goal directed Thought Content: Non-psychotic Cognition/Attention/Memory/Concentration: Alert and oriented x 4; grossly intact attention; memory-recent/remote judged adequate by interviewer Insight: Good Judgement: Good BH language: Within normal limits Fund of Knowledge: Adequate . Assessment: * Assessment: 1. 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 I nattention - R41.840 ? 3 . A nxiety - F41.9 4 . P sychophysiological insomnia - F51.04? Plan: * Treatment: 2. I nattention Stop Vyvanse Capsule, 50 MG, 1 capsule in the morning, Orally, Once a day, 30 days, 30 Capsule;?Start Amphetamine-Dextroamphet ER Capsule Extended Release 24 Hour, 20 MG, 1 capsule in the morning, Orally, Once a day, 15 days, 15 Capsule, Refills 0. Notes: . FDA approved stimulant medication for this age group. Discussed/Denies adverse effects from medication including HTN, tachycardia, insomnia, irritability, headache, or decreased appetite. . All relevant and serious adverse effects were discussed. Standard precautions and potential benefits were discussed. Patient/Guardian consented to begin medication/ continue treatment plan . Patient continues to meet criteria for attention deficit hyperactivity disorder. Pt does not meet criteria for bipolar disorder, major depressive disorder, or other persistent mood disorders. Will continue to monitor the patient for presentation of new symptoms or behaviors. . Continue current treatment; tolerating meds well, compliant; call for problems; questions answered satisfactorily, agreeable to treatment plan . GOALS: . Maintain medication regimen _Improve social and interpersonal functioning _Improve attention and or hyperactivity . follow up 3 months . Crisis Intervention plan was discussed and agreed upon. Patient/Guardian will call 911 in case of emergency. Emergency contact information was provided to the patient/guardian. . OARRS reviewed . 3. A nxiety Decrease Lybalvi Tablet, 5-10 MG, 1 tablet daily for 5 days and then take every other day 4 times and stop, Orally, Once a day, 13 days, 9, Refills 0; R efill cloNIDine HCl Tablet, 0.1 MG, 1 tablet Orally twice a day, 30 days, 30. Notes: clonidine: Encouraged to call office or report to the if the patient experiences dizziness or lightheadedness 4. P sychophysiological insomnia Refill Lunesta Tablet, 2 MG, 1 tablet immediately before bedtime, Orally, Once a day, 30 days, 30 Tablet, Refills 1. Notes: . Discussed seriousness of taking hypnotic medication daily and as needed, risks and benefits discussed including risk of addiction and accidental . Pt verbalized understanding. . High risk medications are drugs that have a heightened risk of causing significant patient harm when they are used in error. High risk medicines include medicines: with a low therapeutic index. that present a high risk when administered by the wrong route or when other system errors occur. Please notify provider for any concerns about your medications. . . Informed consent obtained: YES, we discussed the diagnosis/diagnoses, the treatment options, treatment(s) recommended vs. no treatment. We discussed risks and benefits of treatment options, treatment recommendations vs. no treatment. . . Pt is to continue current treatment plan Has good tolerability and compliance with medication Call for problems All questions and concerns discussed . . Informed consent obtained: YES, we discussed the diagnosis/diagnoses, the treatment options, treatment(s) recommended vs. no treatment. We discussed risks and benefits of treatment options, treatment recommendations vs. no treatment. . . Pt is to continue current treatment plan Has good tolerability and compliance with medication Call for problems All questions and concerns discussed . * Procedure Codes: 1 160F RVW MEDS BY RX/ IN [id number] SYNCH AUDIO-VIDEO EST SF 10 * Follow Up: 2 Weeks * Images: * Sign off status: Completed true * Appointment Provider: JOANNA TRAN Date: 0 03/30/2025 Generated for Deborah spears/Gin/Harshad on: 07:41 AM EDT History and Physical Notes * HPI (History of Present Illness) Category Sub-Category Detail Notes Category Not es Constitutional Patient or guardian consent to the virtual appointment. Verbalized understanding that patient/guardian are financially responsible for visit. Patient is an established patient. The visit via synchronous audio and video only with the use of Doximetry. Patient is in their home and provider is in their office. Present during the appointment are the provider and patient Medical decision: assess effective ness of meds Start:548 Stop:600 Pt is tolerating meds well and taking medications daily. . Pt states thah she would like to stop the Lybalvi. Says that it made her anxiety worse. In addition says that the Vyvance is not helping her adhd. . Pt denies mood fluctuation. Energy and motivation are stable. Depressive symptoms are not persistent. Denies episodes of having sadness, anhedonia, isolating behaviors, or crying spells. Anxiety is not controlled. Concentration poor with distractibility. . Sleeping through the night and feels rested upon waking up. Denies Nightmares. Appetite is good. . Denies Euphoria. Pervasive irritability is controlled today. Meaningful relationships intact. Denies increased goal-oriented behavior or increase in purposeless activity. Attending work/school as scheduled. . Denies suicidal or homicidal ideation or plan. No morbid thoughts. Interpersonal issues discussed. Support provided. Insight oriented/ Behavior modifying/ Supportive therapy PLan: Provided pt with weanng instructions for the Lybalvi. She verbalized understanding. Will stop the Vyvanse and will Start adderall . Examination Category Sub-Category Detail Notes Category Not es General Examination . AIMS EXAM: . AIMS Muscles of Facial Expression: None AIMS Lips and Perioral Area: None AIMS Jaw Area Involuntary Movements: None AIMS Tongue Involuntary Movements: None AIMS Upper Arms, Wrists, Hands, Fingers: None AIMS Lower Legs, Knees, Ankles, Toes: None AIMS Overall Abnormal Movement Severity: None AIMS Incapacitation Abnormal Movement: None AIMS Self Awareness of Abnormal Movement: Aware, None noted AIMS Current Teeth, Denture Problems: No AIMS Movements Disappear in Sleep: No . . MENTAL STATUS EXAM: . Appearance: cooperative, pleasant Behavior/Motor Activity: N/A Gait/Station: N/A Speech: Normal Mood: Good Affect: Full Thought processes/Associations: Logical and goal directed Thought Content: Non-psychotic Cognition/Attention/Memory/Con centration: Alert and oriented x 4; grossly intact attention; memory-recent/remote judged adequate by interviewer Insight: Good Judgement: Good language: Within normal limits Fund of Knowledge: Adequate .
[2025-04-05] VITALS (29 sets, daily range): BP systolic 106–157; BP diastolic 73–92; PULSE 57–106; TEMP 36.6–36.8; O2SAT 91–100; BMI 36.1; BMI 34.8
--- NOTE | 2025-04-05 07:31 | ECG_ITS ---
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 Measurements Intervals [place] Rate: 97 P: 41 HI: 164 QRS: 245 QRSD: 150 T: 36 QT: 424 QTc: 478 Interpretive Statements 1100 Sinus rhythm 2450 Right bundle branch block 4364 Twave abnormality, possible anterolateral ischemia 7100 Abnormal right axis deviation 9150 abnormal ECG Compared to ECG 12/26/2024 16:22:02 Sinus arrhythmia no longer present ST (T wave) deviation no longer present Possible ischemia still present Electronically Signed On 04-05-2025 11:48:18 EDT by CINDY GREEN M.D.
--- NOTE | 2025-04-05 07:34 | ED.ABDPAIN1 ---
HPI - Abdominal Pain General Chief Complaint: Abdominal Pain Stated Complaint: abdominal pain Time Seen by Provider: 04/05/25 07:27 History of Present Illness HPI narrative: cc =- abd pain woke at 330am with pain across mid and upper abdomen. She also has nausea and has vomited several times, she told me. Pain is non-radiating, sharp and burning, rates 8/10. No recent difficulty passing urine or passing stool. No history of kidney stones. History of bleeding ulcer . She does use cannabis/cannabinoids. No recent fall, injury or trauma to torso to account for the pain. Chart review shows patient was admitted in December for overnight observation after developing intractable nausea and vomiting. She apparently had some dehydration and improved with NS IVF, Zofran and Compazine. CT a/p performed at that time was apparently negative for any worrisome acute pathology. Related Data Home Medications ?Medication ?Instructions ?Recorded ?Confirmed albuterol sulfate 90 mcg/actuation 2 inh inhalation Q4H PRN shortness 02/11/24 12/26/24 aerosol inhaler of breath or wheezing gabapentin 100 mg capsule 200 mg PO Q12H 02/11/24 12/26/24 pantoprazole 40 mg tablet,delayed 40 mg PO DAILY 02/11/24 12/26/24 release propranolol 80 mg capsule,24 80 mg PO Q24H 02/11/24 12/26/24 hr,extended release sumatriptan succinate 50 mg tablet 50 mg PO Q2H PRN migraine headache 02/11/24 12/26/24 tizanidine 4 mg tablet 4 mg PO .QHS muscle spasticity 02/11/24 12/26/24 brexpiprazole 3 mg tablet (Rexulti) 3 mg PO .QD 12/26/24 12/26/24 bupropion HCl 300 mg 24 hr tablet, 300 mg PO .QD 12/26/24 12/26/24 extended release clonidine HCl 0.1 mg tablet 0.1 mg PO BID 12/26/24 12/26/24 lisdexamfetamine 50 mg capsule 50 mg PO .QD 12/26/24 12/26/24 (Vyvanse) Previous Rx's ?Medication ?Instructions ?Recorded hydrocodone 5 mg-acetaminophen 325 1 tab PO Q6H PRN pain 5 days #20 12/26/24 mg tablet tabs ondansetron 4 mg disintegrating 4 mg PO Q6H PRN nausea and 12/26/24 tablet vomiting #20 tabs dicyclomine 10 mg capsule 10 mg PO BID 10 days #20 caps 12/27/24 Allergies Allergy/AdvReac Type Severity Reaction Status Date / Time cariprazine (From Vraylar) Allergy out of Verified 04/05/25 07:35 body experience metoclopramide (From Reglan) Allergy Unknown Verified 04/05/25 07:35 Penicillins Allergy Rash Verified 04/05/25 07:35 PFSH [facility] Medical History (Updated 04/05/25 @ 10:46 by Mckinley Rivas) Stomach ulcer ?K25.9 - Gastric ulcer, unspecified as acute or chronic, without hemorrhage or perforation (ICD-10) Fibromyalgia ?M79.7 - Fibromyalgia (ICD-10) Back pain ?M54.9 - Dorsalgia, unspecified (ICD-10) Neck pain ?M54.2 - Cervicalgia (ICD-10) ADD (attention deficit disorder) ?F98.8 - Other specified behavioral and emotional disorders with onset usually occurring in childhood and adolescence (ICD-10) Insomnia ?G47.00 - Insomnia, unspecified (ICD-10) Bipolar disorder ?F31.9 - Bipolar disorder, unspecified (ICD-10) Depression ?F32.A - Depression, unspecified (ICD-10) PTSD (post-traumatic stress disorder) ?F43.10 - Post-traumatic stress disorder, unspecified (ICD-10) Anxiety ?F41.9 - Anxiety disorder, unspecified (ICD-10) Panic attacks ?F41.0 - Panic disorder [episodic paroxysmal anxiety] (ICD-10) Electronic cigarette use ?Z78.9 - Other specified health status (ICD-10) COVID-19 ?U07.1 - COVID-19 (ICD-10) Seasonal allergies ?J30.2 - Other seasonal allergic rhinitis (ICD-10) Bronchitis ?J40 - Bronchitis, not specified as acute or chronic (ICD-10) Migraine ?G43.909 - Migraine, unspecified, not intractable, without status migrainosus (ICD-10) Request for sterilization ?Z30.2 - Encounter for sterilization (ICD-10) Pelvic pain ?R10.2 - Pelvic and perineal pain (ICD-10) Abnormal uterine bleeding ?N93.9 - Abnormal uterine and vaginal bleeding, unspecified (ICD-10) Menorrhagia ?N92.0 - Excessive and frequent menstruation with regular cycle (ICD-10) Kidney stones ?N20.0 - Calculus of kidney (ICD-10) Peptic ulcer ?K27.9 - Peptic ulcer, site unspecified, unspecified as acute or chronic, without hemorrhage or perforation (ICD-10) GERD (gastroesophageal reflux disease) ?K21.9 - Gastro-esophageal reflux disease without esophagitis (ICD-10) Tachycardia ?R00.0 - Tachycardia, unspecified (ICD-10) Postoperative nausea and vomiting ?R11.2 - Nausea with vomiting, unspecified (ICD-10) ?Z98.890 - Other specified postprocedural states (ICD-10) Surgical History (Updated 12/26/24 @ 18:36 by Paula Carmona RN) H/O tubal ligation ?Z98.51 - Tubal ligation status (ICD-10) History of colonoscopy ?Z98.890 - Other specified postprocedural states (ICD-10) History of esophagogastroduodenoscopy (EGD) ?Z98.890 - Other specified postprocedural states (ICD-10) S/P ACL repair ?Z98.890 - Other specified postprocedural states (ICD-10) History of arthroscopy of knee ?Z98.890 - Other specified postprocedural states (ICD-10) H/O cervical spinal arthrodesis (08/24/23) ?Z98.1 - Arthrodesis status (ICD-10) Family History (Updated 12/26/24 @ 18:12 by Paula Carmona RN) Other Family history of bone cancer Family history of colon cancer Family history of diabetes mellitus Family history of hypertension Family history of lung cancer Family history of myocardial infarction Family history of stroke Social History (Updated 02/25/24 @ 07:28 by Jessica Manrique RN) Within the past year, how often did you have a drink containing alcohol: monthly or less Smoking status: Former smoker Second hand tobacco smoke exposure: No Non-prescribed substance use: cannabis (any form) Non-prescribed substance use details: used last yesterday 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 afebrile General: Uncomfortable and crying when she arrived to the room. Skin: Warm, dry, no pallor noted. Head: Normocephalic, atraumatic. Neck: Supple, no meningismus. Eye: Pupils are equal, round and EOMI. No scleral icterus. Ears, Nose, Mouth, and Throat: Oral mucosa is slightly dry Cardiovascular: Tachycardia. Respiratory: No accessory muscle use or respiratory distress. Lungs are clear to auscultation, no wheezing, rales or rhonchi Back: No CVA tenderness Musculoskeletal: normal ROM GI: Abdomen is soft, non-distended. Normal bowel sounds. No solid or pulsatile masses appreciated. Epigastric tenderness to palpation. No rebound, guarding, or rigidity noted. Neurological: A&O x4. No cranial nerve dysfunction observed. No truncal ataxia. Moves all extremities. Sensation intact. Psychiatric: Interactive. Emotional/crying. Constitutional Vital Signs, click to edit/add: Last Vital Signs Temp 97.8 F 04/05/25 07:45 Pulse 59 L 04/05/25 08:40 Resp 14 04/05/25 08:40 BP 149/76 H 04/05/25 09:08 Pulse Ox 97 04/05/25 09:10 O2 Del Method Room Air 04/05/25 07:35 Course Vital Signs Vital signs: Vital Signs Pulse Rate 106 H 04/05/25 07:35 Respiratory Rate 24 H 04/05/25 07:35 Blood Pressure 106/73 04/05/25 07:35 Pulse Oximetry 95 04/05/25 07:35 Oxygen Delivery Method Room Air 04/05/25 07:35 Temperature 97.8 F 04/05/25 07:45 Pulse Rate 59 L 04/05/25 08:40 Respiratory Rate 14 04/05/25 08:40 Blood Pressure 149/76 H 04/05/25 09:08 Pulse Oximetry 97 04/05/25 09:10 Oxygen Delivery Method Room Air 04/05/25 07:35 MDM - Abdominal Pain MDM Narrative Medical decision making narrative: Patient was placed on metal molder and EKG obtained. Blood drawn and sent for evaluation. Urine ordered to be obtained and sent for testing. Patient ordered to receive a liter normal saline IV fluid. Exam is not consistent with ureteral stone or appendicitis. No history of melena, hematochezia and her daily use of protonix decrease likelihood of gastric/peptic ulcer. Pt ordered to receive IV Zofran, Phenergan and morphine. Xrays abdomen obtained once patient was more comfortable. Xrays did not reveal any worrisome pathology. Patient continued to complain of nausea and abdominal pain and therefore was sent for CT abd/pelvis with IVC. Per radiologist report, the CT showed rugal fold thickening but no bowel obstruction, pancreatitis, appendiceal changes or other worrisome pathology. On recheck @1030 the patient's pain was decreased but still very nauseous - she had vomited in CT suite despite receiving phenergan, zofran x 2 and haldol. Call placed to the educational program assistant hospitalist to discuss observation admission for this patient. I spoke with Dr Stiles and after discussing the case he agreed to obs [facility] on [facility]. The patient was agreeable to admission after we discussed the test results and her diagnosis. Differential Diagnosis Differential diagnosis: Likely abdominal pain, acute appendicitis, calculus of kidney, constipation, gastroenteritis, pancreatitis and small bowel obstruction Medical Records Attestation: I reviewed the patient's medical records. Medical records narrative: see my review in HPI Lab Data Attestation: I reviewed the patient's lab results. Labs: Lab Results 04/05/25 Range/Units 07:45 WBC 12.3 H (4.0-11.0) 10^3/uL RBC 4.76 (4.20-5.40) 10^6/uL Hgb 14.9 (12.0-16.0) g/dL Hct 41.2 (36.0-48.0) % MCV 86.6 (81.0-99.0) fL MCH 31.3 (26.7-34.0) pg MCHC 36.2 H (29.9-35.2) g/dL RDW 12.1 (11.0-15.0) % Plt Count 333 (150-450) 10^3/uL MPV 10.3 (9.5-13.5) fL Neut % (Auto) 77.2 H (43.0-75.0) % Lymph % (Auto) 18.1 L (20.5-60.0) % [place] % (Auto) 4.0 (1.7-12.0) % Eos % (Auto) 0.1 L (0.9-7.0) % Baso % (Auto) 0.3 (0.2-2.0) % Neut # (Auto) 9.5 H (1.4-6.5) 10^3/uL Lymph # (Auto) 2.2 (1.2-3.8) 10^3/uL [place] # (Auto) 0.5 (0.3-0.8) 10^3/uL Eos # (Auto) 0.0 (0.0-0.7) 10^3/uL Baso # (Auto) 0.0 (0.0-0.1) 10^3/uL Abs Immat Gran (auto) 0.04 H (0.00-0.03) 10^3/uL Imm/Tot Granulo (auto) 0.3 (0.0-0.5) % Sodium 141 (136-145) mmol/L Potassium 3.5 (3.5-5.1) mmol/L Chloride 101 (98-107) mmol/L Carbon Dioxide 26.7 (21.0-32.0) mmol/L Anion Gap 16.8 BUN 11.0 (7.0-18.0) mg/dL Creatinine 0.80 (0.55-1.02) mg/dL Est GFR ( Amer) >60 (>=60 mL/min/1.73m^2) Est GFR (Non-Af Amer) >60 (>=60 mL/min/1.73m^2) BUN/Creatinine Ratio 13.8 Glucose 133 H (74-106) mg/dL Lactate 1.1 (0.4-2.0) mmol/L Calcium 9.7 (8.5-10.1) mg/dL Total Bilirubin 0.8 (0.2-1.0) mg/dL AST 24 (15-37) U/L ALT 34 (14-59) U/L Alkaline Phosphatase 94 (46-116) U/L Total Protein 8.3 H (6.4-8.2) g/dL Albumin 4.5 (3.4-5.0) g/dL Globulin 3.8 g/dL Albumin/Globulin Ratio 1.2 Lipase 34.0 (16.0-77.0) U/L Imaging Data xr abd, ct a/p: Radiologist's impression: ITS Impressions Chest/Abdomen X-ray 04/05/25 08:02 IMPRESSION: NONSPECIFIC, NONOBSTRUCTIVE BOWEL GAS PATTERN. Impression dictated by: Pham Venegas M.D. 04/05/2025 9:41 AM Dictation Location: [place] [address] Electronically authenticated by: [id number] Y Date: 04/05/2025 09:41 Abdomen/Pelvis CT 04/05/25 10:12 IMPRESSION: NO BOWEL OR URINARY TRACT OBSTRUCTION. FATTY LIVER. FLUID DISTENDED STOMACH WITH POSSIBLE NONSPECIFIC RUGAL FOLD THICKENING. NO OTHER ACUTE FINDINGS. Impression dictated by: Pham Venegas M.D. 04/05/2025 10:28 AM Dictation Location: [place] [address] Electronically authenticated by: [id number] Y Date: 04/05/2025 10:28 ECG Data Attestation: I personally reviewed and interpreted this ECG as follows: Interpretation: EKG interpretation:Emergency Department physician interpretation.Normal sinus rhythm at 97bpm.right bundle branch block, right axis deviation, T wave inversion in leads V1 through V4. No ST segment elevation or depression. EKG dated 12/26/24 obtained for comparison. Right axis deviation and right bundle branch block were present at that time with T wave inversion noted in leads I, aVL, V1 through V4.. Discharge Plan Discharge Chief Complaint: Abdominal Pain Clinical Impression: Gastritis, Abdominal pain, Intractable nausea Patient Disposition: Admitted as Observation Time of Disposition Decision: 10:30
--- OUTSIDE RECORDS SUMMARY | 2025-04-05 07:41 | XMS_ITS | Encounter Summary ---
Author Organization [facility] Address [address] [place], [place] [id number] Care Team Providers Care Sport Intern Name Role Phone Amara PalacioMarialuisa AUDIT CONSULTANT Unavailable [phone] Rosibel Jerez PA-C Primary Care Provider + Source Comments In the event this information is protected by the Federal Confidentiality of Alcohol and Drug AbusePatient Records regulations: The Federal rules restrict any use of the information to criminally investigate or prosecute any alcohol or drug abuse patient.[facility] Encounter Details Date Type Department Care Team (Late st Contact Info) Description 02/27/2025 Patient Msg Internal Medicine [facility] [address] [place], [place] [id number] Rosibel Jerez PA-C [address] [place], [place] [id number] Appointment Request Social History Tobacco Use Types Packs/Day Years Used Date Smoking Tobacco: Former Cigarettes 0.5 20 0 07/12/2003 - 07/12/2023 Smokeless Tobacco: Never Passive Exposure Comments:va pe Alcohol Use Standard Drinks/Week Comments Yes 2 (1 standard drink = 0.6 oz pur e alcohol) 7-8 drinks per month [facility] Utilities Answer Date Recorded In the past 12 months has th e electric, gas, oil, or water company threatened to shut off services in your home? Yes 10/05/2024 Social Connection and Isolation Panel Answer Date Recorded In a typical week, how many times do you talk on the phone with family, friends, or neighbors? More than three times a week 10/05/2024 How often do you get togethe r with friends or relatives? Once a week 10/05/2024 How often do you attend chur ch or catholic services? 1 to 4 times per year 10/05/2024 Do you belong to any clubs o r organizations such as episcopal groups, unions, fraternal or athletic groups, or school groups? Yes 10/05/2024 How often do you attend meet ings of the clubs or organizations you belong to? 1 to 4 times per year 10/05/2024 Are you , , di vorced, , never , or living with a partner? Never 10/05/2024 AUDIT-C Answer Date Recorded Q1: How often do you have a drink containing alc ohol? 2-4 times a month 10/05/2024 Q2: How many drinks containi ng alcohol do you have on a typical day when you are drinking? 3 or 4 10/05/2024 Q3: How often do you have si x or more drinks on one occasion? Less than monthly 10/05/2024 Overall Financial Resource Strain (CARDIA) Answe r Date Recorded How hard is it for you to pa y for the very basics like food, housing, medical care, and heating? Very hard 10/05/2024 PHQ-2 Answer Date Recorded PHQ-2 score 5 02/28/2025 [facility] [place] of Occupat ional Health - Occupational Stress Questionnaire Answer Date Recorded Do you feel stress - tense, restless, nervous, or anxious, or unable to sleep at night because your mind is troubled all the time - these days? Very much 10/05/2024 Exercise Vital Sign Answer Date Recorde d On average, how many days pe r week do you engage in moderate to strenuous exercise (like a brisk walk)? 0 days 10/05/2024 On average, how many minutes do you engage in exercise at this level? 0 min 10/05/2024 Hunger Vital Sign Answer Date Recorded Within the past 12 months, y ou worried that your food would run out before you got the money to buy more. Often true 10/06/19 25 Within the past 12 months, t he food you bought just didn't last and you didn't have money to get more. Often true 10/05/2024 PRAPARE - Transportation Answer Date Re corded In the past 12 months, has l ack of transportation kept you from medical appointments or from getting medications? No 09/2024 In the past 12 months, has l ack of transportation kept you from meetings, work, or from getting things needed for daily living? No 10/05/2024 Housing Stability Vital Sign Answer Enrike e Recorded In the last 12 months, was t here a time when you were not able to pay the mortgage or rent on time? Yes 04/09/2023 In the last 12 months, how many places have you lived? 1 04/09/2023 In the last 12 months, was t here a time when you did not have a steady place to sleep or slept in a custodial (including now)? No 04/09/2023 Area Deprivation Index Answer Date Darrius rded National Score (1-100), lower number is lower ri sk 87 01/15/2023 State Score (1-10), lower number is lower risk 8 01/15/2023 Data from: https://www.neighborhoodatlas.medicine.[facility].edu/. 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 Answer Date of Assessment Author No 08/25/2023 1:46 PM Sana Wolfe RN * Are you blind or do you have serious difficulty seeing, even when wearing glasses? Answer Date of Assessment Author No 08/25/2023 1:46 PM Sana Wolfe RN * Do you have serious difficulty walking or climbing stairs? Answer Date of Assessment Author No 08/25/2023 1:46 PM Sana Wolfe RN * Do you have difficulty dressing or bathing? Answer Date of Assessment Author No 08/25/2023 1:46 PM Sana Wolfe RN * Because of a physical, mental, or emotional condition, do you have difficulty doing errands alone such as visiting a doctor's office or shopping? Answer Date of Assessment Author No 08/25/2023 1:46 PM Sana Wolfe RN documented as of this encounter Mental Status * Because of a physical, mental, or emotional condition, do you have serious difficulty concentrating, remembering, or making decisions? Answer Entry Date Author No 08/25/2023 1:46 PM Sana Wolfe RN documented in this encounter Plan of Treatment Upcoming Encounters Date Type Department Care Team (Late st Contact Info) Description 06/06/2025 10:30 AM EST Office Visit Gastroenterology [address] [place] [address] [place] [address] [place] [address] Nausea and vomiting, unspecified vomiting type [R11.2] documented as of this encounter Visit Diagnoses Not on filedocumented in this encounter Care Teams Sport Intern Relationship Specialty Start Date End Date Rosibel Jerez PA-C [address] [place] [address] PCP - General Internal Medicine 04/09/23 Amara Palacio AUDIT CONSULTANT [address] [facility] [place] [address] Referring Family Medicine 02/20/22 documented as of this encounter
--- OUTSIDE RECORDS SUMMARY | 2025-04-05 07:41 | XMS_ITS | Encounter Summary ---
Author Organization [facility] Address [facility] [place] [address] Care Team Providers Care Seafood Process Worker Name Role Phone Pia Amara Osbaldo BENCH ASSEMBLY INSPECTOR Unavailable [phone] Rosibel Jerez PA-C Primary Care Provider + Source Comments In the event this information is protected by the Federal Confidentiality of Alcohol and Drug AbusePatient Records regulations: The Federal rules restrict any use of the information to criminally investigate or prosecute any alcohol or drug abuse patient.[facility] Encounter Details Date Type Department Care Team (Late st Contact Info) Description 01/02/2025 Patient [place] [address] Provider, Bela CCDulce Maria 01/04/25 Social History Tobacco Use Types Packs/Day Years Used Date Smoking Tobacco: Former Cigarettes 0.5 20 0 07/12/2003 - 07/12/2023 Smokeless Tobacco: Never Passive Exposure Comments:va pe Alcohol Use Standard Drinks/Week Comments Yes 2 (1 standard drink = 0.6 oz pur e alcohol) 7-8 drinks per month [facility] Utilities Answer Date Recorded In the past 12 months has e electric, gas, oil, or water company [...] often do you attend chur ch or confucianism services? 1 to 4 times per year 10/05/2024 Do you belong to any clubs o r organizations such as yazidi groups, unions, fraternal or athletic groups, or [...] 10/05/2024 PHQ-2 Answer Date Recorded PHQ-2 score 4 12/20/2024 [facility] of Occupat ional Health - Occupational Stress [...] place to sleep or slept in a alf (including now)? No 04/09/2023 Area Deprivation Index Answer Date Darrius rded National Score (1-100), lower number is lower ri sk 87 01/15/2023 State Score (1-10), lower number is lower risk 8 01/15/2023 Data from: https://www.neighborhoodatlas.medicine.[facility].edu/. Last address used for calculation [address] [...] of Assessment Author No 08/25/2023 1:46 PM EST Sana Becerra RN * Are you blind or do [...] 06/06/2025 10:30 AM EST Office Visit Gastroenterology [address] [place] [address] [place] [address] [place] [address] Nausea and vomiting, unspecified vomiting type [R11.2] documented as of this encounter Visit Diagnoses Not on filedocumented in this encounter Care Teams Seafood Process Worker Relationship Specialty Start Date End Date Rosibel Jerez PA-C [address] [place] [address] PCP - General Internal Medicine 04/09/23 Amara Palacio CNP [address] [place] [address] [place] [address] Referring Family Medicine 02/20/22 documented as of this encounter
--- OUTSIDE RECORDS SUMMARY | 2025-04-05 07:41 | XMS_ITS | Encounter Summary ---
Author Organization [facility] Address [address] [place] [address] Care Team Providers Care Lieutenant Colonel Name Role Phone Amara PalacioMarialuisa CUTTING AND PRINTING MACHINE OPERATOR Unavailable [phone] Rosibel Jerez PA-C Primary Care Provider + Source Comments In the event this information is protected by the Federal Confidentiality of Alcohol and Drug AbusePatient Records regulations: The Federal rules restrict any use of the information to criminally investigate or prosecute any alcohol or drug abuse patient.[facility] Encounter Details Date Type Department Care Team (Late st Contact Info) Description 01/29/2025 Results Follow-Up Internal Medicine [facility] [address] [place], [place] [phone] Rosibel Jerez PA-C [address] [place], [place] [id number] Social History Tobacco Use Types Packs/Day Years Used Date Smoking Tobacco: Former Cigarettes 0.5 20 0 07/12/2003 - 07/12/2023 Smokeless Tobacco: Never Passive Exposure Comments:va pe Alcohol Use Standard Drinks/Week Comments Yes 2 (1 standard drink = 0.6 oz pur e alcohol) 7-8 drinks per month [facility] Utilities Answer Date Recorded In the past [...] often do you attend chur ch or hindu services? 1 to 4 times per year 10/05/2024 Do you belong to any clubs o r organizations such as synagogue groups, unions, fraternal or athletic groups, or [...] Answer Date Recorded PHQ-2 score 5 02/28/2025 [facility] [place] of Occupat ional Health - Occupational Stress [...] place to sleep or slept in a fpc (including now)? No 04/09/2023 Area Deprivation Index Answer Date Darrius rded National Score (1-100), lower number is lower ri sk 87 01/15/2023 State Score (1-10), lower number is lower risk 8 01/15/2023 Data from: https://www.neighborhoodatlas.medicine.[facility].edu/. Last address used for calculation [address] [...] 06/06/2025 10:30 AM EST Office Visit Gastroenterology [address] [place] [address] [place] [address] [place] [address] Nausea and vomiting, unspecified vomiting type [R11.2] documented as of this encounter Visit Diagnoses Not on filedocumented in this encounter Care Teams Lieutenant Colonel Relationship Specialty Start Date End Date Rosibel Jerez PA-C [address] [place] [address] PCP - General Internal Medicine 04/09/23 Amara Palacio CNP [address] [place] [address] Referring Family Medicine 02/20/22 documented as of this encounter
--- OUTSIDE RECORDS SUMMARY | 2025-04-05 07:41 | XMS_ITS | Encounter Summary ---
Author Organization [facility] Address [address] [place] [address] Care Team Providers Care Human Resources Designate Name Role Phone Pia Amara Osbaldo ORGANIZATIONAL PSYCHOLOGIST Unavailable [phone] Rosibel Jerez PA-C Primary Care Provider + Source Comments In the event this information is protected by the Federal Confidentiality of Alcohol and Drug AbusePatient Records regulations: The Federal rules restrict any use of the information to criminally investigate or prosecute any alcohol or drug abuse patient.[facility] Reason for Visit * Reason Comments LTD Encounter Details Date Type Department Care Team (Late st Contact Info) Description 02/20/2025 Telephone [address] [place], [place] [phone] Joo Cruz MD [address] [place] [id number] LTD Social History Tobacco Use Types Packs/Day Years Used Date Smoking Tobacco: Former Cigarettes 0.5 20 0 07/12/2003 - 07/12/2023 Smokeless Tobacco: Never Passive Exposure Comments:va pe Alcohol Use Standard Drinks/Week Comments Yes 2 (1 standard drink = 0.6 oz pur e alcohol) 7-8 drinks per month [facility] Utilities Answer Date Recorded In the [...] often do you attend chur ch or pentecostalism services? 1 to 4 times per year 10/05/2024 Do you belong to any clubs o r organizations such as anabaptism groups, unions, fraternal or athletic groups, or [...] 10/05/2024 PHQ-2 Answer Date Recorded PHQ-2 score 6 01/24/2025 [facility] [place] of Occupat ional Health - Occupational Stress [...] is lower risk 8 01/15/2023 Data from: https://www.neighborhoodatlas.medicine.[facility].edu/. 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 She has no issues with her incision she is very pleased with her recovery SSI forms received asking if patient unable to work. Will inform Liner Legal Hot Head Machine Operator that patient has no restrictions from [facility] and unable to complete * Telephone Encounter - Katey Orellana - 02/20/2025 4:52 PM EDT Received Disability paperwork put in doc sign for the team to review. documented in this encounter Plan of Treatment Upcoming Encounters Date Type Department Care Team (Late st Contact Info) Description 06/06/2025 10:30 AM EST Office Visit Gastroenterology [address] [place] [address] [place] [address] [place] [address] Nausea and vomiting, unspecified vomiting type [R11.2] documented as of this encounter Visit Diagnoses Not on filedocumented in this encounter Care Teams Human Resources Designate Relationship Specialty Start Date End Date Rosibel Jerez PA-C [address] [place] [address] PCP - General Internal Medicine 04/09/23 Amara Palacio, ORGANIZATIONAL PSYCHOLOGIST [address] [place] [address] [place] [address] Referring Family Medicine 02/20/22 documented as of this encounter
--- OUTSIDE RECORDS SUMMARY | 2025-04-05 07:41 | XMS_ITS | Encounter Summary ---
Author Organization [facility] Address [address] [place] [address] Care Team Providers Care Sales Support Coordinator Name Role Phone Amara PalacioMarialuisa AB INITIO ETL DEVELOPER Unavailable [phone] Rosibel Jeerz PA-C Primary Care Provider + Source Comments In the event this information is protected by the Federal Confidentiality of Alcohol and Drug AbusePatient Records regulations: The Federal rules restrict any use of the information to criminally investigate or prosecute any alcohol or drug abuse patient.[facility] Encounter Details Date Type Department Care Team (Late st Contact Info) Description 01/18/2025 Patient Msg Internal Medicine [facility] [address] [place], [place] [phone] Rosibel Jerez PA-C [address] [place], [place] [phone] Appointment Request Social History Tobacco Use Types Packs/Day Years Used Date Smoking Tobacco: Former Cigarettes 0.5 20 0 07/12/2003 - 07/12/2023 Smokeless Tobacco: Never Passive Exposure Comments:va pe Alcohol Use Standard Drinks/Week Comments Yes 2 (1 standard drink = 0.6 oz pur e alcohol) 7-8 drinks per month [facility] Utilities Answer Date Recorded In the [...] often do you attend chur ch or gnosticist services? 1 to 4 times per year 10/05/2024 Do you belong to any clubs o r organizations such as congregational groups, unions, fraternal or athletic groups, or [...] Answer Date Recorded PHQ-2 score 4 12/20/2024 [facility] [place] of Occupat ional Health - Occupational Stress [...] place to sleep or slept in a [facility] (including now)? No 04/09/2023 Area Deprivation Index Answer Date Darrius rded National Score (1-100), lower number is lower ri sk 87 01/15/2023 State Score (1-10), lower number is lower risk 8 01/15/2023 Data from: https://www.neighborhoodatlas.medicine.[facility].edu/. Last address used for calculation [address] [...] 06/06/2025 10:30 AM EST Office Visit Gastroenterology [address] [place] [address] [place] [address] [place] [address] Nausea and vomiting, unspecified vomiting type [R11.2] documented as of this encounter Visit Diagnoses Not on filedocumented in this encounter Care Teams Sales Support Coordinator Relationship Specialty Start Date End Date Rosibel Jerez PA-C [address] [place] [address] PCP - General Internal Medicine 04/09/23 Amara Palacio AB INITIO ETL DEVELOPER [address] [facility] [facility] [place] [address] Referring Family Medicine 02/20/22 documented as of this encounter
--- OUTSIDE RECORDS SUMMARY | 2025-04-05 07:41 | XMS_ITS | Encounter Summary ---
Author Organization [facility] Address [address] [place] [address] Care Team Providers Care Aluminum Pourer Name Role Phone Abimael Cavazos Primary Care Provider [phone] Encounter Details Date Type Department Care Team (Late st Contact Info) Description 05/03/2016 Prep for Surgery [facility] Otolaryngology (ENT) [address] [place] [address] Aravind Shelley MD [address] [facility] [id number] [facility] [address] [place] [address] Social History Tobacco Use Types Packs/Day Years Used Date Smoking Tobacco: Every Day Cigarettes Alcohol Use Standard Drinks/Week Comments Yes 0 (1 standard drink = 0.6 oz pur e alcohol) rare/social Substance Use Types Use/Week Comments Yes Marijuana/THC Comments Unknown Sex and Gender Information Value Date Recorded Sex Assigned at Female 03/26/2023 11:00 AM EDT Legal Sex Female 10:02 PM EDT Gender Identity Female 03/26/2023 11:00 AM EDT Sexual Orientation Not on file documented as of this encounter Plan of Treatment Not on file documented as of this encounter Visit Diagnoses Diagnosis Retropharyngeal abscess- Primary documented in this encounter Care Teams Aluminum Pourer Relationship Specialty Start Date End Date Abimael Cavazos [address] [place] [address] PCP - General 05/02/16 documented as of this encounter
--- OUTSIDE RECORDS SUMMARY | 2025-04-05 07:41 | XMS_ITS | Encounter Summary ---
Author Organization [facility] Address [address] [place] [address] Care Team Providers Care And Rescue Fire Fighter Crash Fire Name Role Phone Amara PalacioMarialuisa NEONATAL SOCIAL WORKER Unavailable [phone] Rosibel Jerez PA-C Primary Care Provider + Source Comments In the event this information is protected by the Federal Confidentiality of Alcohol and Drug AbusePatient Records regulations: The Federal rules restrict any use of the information to criminally investigate or prosecute any alcohol or drug abuse patient.[facility] Encounter Details Date Type Department Care Team (Late st Contact Info) Description 01/30/2025 Results Follow-Up Internal Medicine [facility] [address] [place], [place] [phone] Rosibel Jerez PA-C [address] [place], [place] [phone] Social History Tobacco Use Types Packs/Day Years Used Date Smoking Tobacco: Former Cigarettes 0.5 20 0 07/12/2003 - 07/12/2023 Smokeless Tobacco: Never Passive Exposure Comments:va pe Alcohol Use Standard Drinks/Week Comments Yes 2 (1 standard drink = 0.6 oz pur e alcohol) 7-8 drinks per month [facility] Utilities Answer Date Recorded In the [...] often do you attend chur ch or voodoo services? 1 to 4 times per year 10/05/2024 Do you belong to any clubs o r organizations such as judaism groups, unions, fraternal or athletic groups, or [...] Answer Date Recorded PHQ-2 score 5 02/28/2025 [facility] [place] of Occupat ional Health - Occupational Stress [...] place to sleep or slept in a [place] health [place] facility (including now)? No 04/09/2023 Area Deprivation Index Answer Date Darrius rded National Score (1-100), lower number is lower ri sk 87 01/15/2023 State Score (1-10), lower number is lower risk 8 01/15/2023 Data from: https://www.neighborhoodatlas.medicine.[facility].edu/. Last address used for calculation [address] [...] 06/06/2025 10:30 AM EST Office Visit Gastroenterology [address] [place] [address] [place] [address] [place] [address] Nausea and vomiting, unspecified vomiting type [R11.2] documented as of this encounter Visit Diagnoses Not on filedocumented in this encounter Care Teams And Rescue Fire Fighter Crash Fire Relationship Specialty Start Date End Date Rosibel Jerez PA-C [address] [place] [address] PCP - General Internal Medicine 04/09/23 Amara Palacio CNP [address] [place] [address] Referring Family Medicine 02/20/22 documented as of this encounter
--- OUTSIDE RECORDS SUMMARY | 2025-04-05 07:41 | XMS_ITS | Clinical Summary ---
Author Organization [facility] Address [address] [facility] [place] [address] Care Team Providers Care Distance Education Teacher Name Role Phone Abimael Cavazos Primary Care Provider [phone] Source Comments The following information is NOT included in Care Everywhere downloads:Psychiatric notes, ECG results, Cardiac Rehab notes, Pulmonary Function notes, data from [employer] (includes but not limited toPregnancy data,audiograms, eye exams, pre-surgical evaluation notes, well-child exam data).[facility] Allergies Active Allergy Reactions Criticality Noted Date Comments Metoclopramide 03/24/2016 Medications docusate sodium (COLACE) 100 MG capsule Take 1 Capsule by mouth 2 times daily. 60 Capsule 3 05/05/2016 Active quetiapine (SEROQUEL) 200 MG tablet Take one at bedtime 30 Tablet 5 09/08/2016 Active duloxetine (CYMBALTA) 60 MG capsule Take 1 Capsule by mouth daily. 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 Resolved Problems Problem Noted Date Diagnosed Date Resolved Date Bipolar disorder, unspecified 03/26/2016 04/20/2016 Family History Medical History Relation Name Comments Lung Cancer Other Opioid Dependence [Other] Other Relation Name Status Comments Other Social History Tobacco Use Types Packs/Day Years Used Date Smoking Tobacco: Every Day Cigarettes Tobacco Cessation:Counseling Given: Yes Alcohol Use Standard Drinks/Week Comments Yes 0 (1 standard drink = 0.6 oz pur e alcohol) rare/social Substance Use Types Use/Week Comments Yes Marijuana/THC Comments No Sex and Gender Information Value Date Recorded Sex Assigned at Female 03/26/2023 11:00 AM EDT Legal Sex Female 10:02 PM EDT Gender Identity Female 03/26/2023 11:00 AM EDT Sexual Orientation Not on file Last Filed Vital Signs Vital Sign Reading Time Taken Comments Blood Pressure 134/77 05/19/2016 10:37 AM EST Pulse 99 05/19/2016 10:37 AM EST Temperature 36.6 C (97.8 F) 05/19/2016 10:37 AM EST Respiratory Rate 18 05/19/2016 10:37 AM EST Oxygen Saturation 100% 05/05/2016 6:09 AM EDT Inhaled Oxygen Concentration - - Weight 60 kg (132 lb 4.8 oz) 05/19/2016 10:37 AM EST Height 152.4 cm (5') 05/19/2016 10:37 AM EST Body Mass Index 25.84 05/19/2016 10:37 AM EST Plan of Treatment Health Maintenance Due Date Last Done Comments HIV Test 02/18/2000 Hepatitis C Antibody 2003 Tdap Booster 2003 Hepatitis A (HAV) Vaccine (optional start 19+ years) 02/18/2004 Hepatitis B (HBV) Vaccine (1 of 3 - 19+ 3-dose series) 02/18/2004 Pap Smear 2006 HPV Vaccine (optional start 27-45 years) 02/18/2012 Mammography 2025 COVID-19 Vaccine ( - 2023-2 5 season) 2025 Influenza Vaccine (#1) 2025 Shingles (RZV) Vaccine (1 of 2) 2035 Pneumococcal Vaccine(s) Aged Out No l onger eligible based on patient's age to complete this topic Insurance [employer] on file [employer] on file Advance Directives * Full Code (Latest Code Status on File) Date Activated Date Inactivated Comments 05/03/2016 3:00 PM 05/05/2016 1:34 PM * Full Code Date Activated Date Inactivated Comments 05/03/2016 4:03 AM 05/03/2016 3:00 PM * Full Code Date Activated Date Inactivated Comments 05/03/2016 3:46 AM 05/03/2016 4:03 AM Care Teams Distance Education Teacher Relationship Specialty Start Date End Date Abimael Cavazos [address] [place] [address] PCP - General 05/02/16
--- OUTSIDE RECORDS SUMMARY | 2025-04-05 07:42 | XMS_ITS | Encounter Summary ---
Author Organization [facility] Address [address] [place] [address] Care Team Providers Care Tram Inspector Name Role Phone Teresa Quintanilla MD Unavailable [phone] Rosibel Jerez MD Primary Care Provider [phone] Encounter Details Date Type Department Care Team (Late st Contact Info) Description 03/02/2023 Abstract [facility] Ot[facility] [address] [place] [address] Micah Dmaon DO [address] [place] [address] Social History Tobacco Use Types Packs/Day Years Used Date Smoking Tobacco: Never Smokeless Tobacco: Never Tobacco Cessation:Counseling Given: Not Answered Alcohol Use Standard Drinks/Week Comments Never 0 (1 standard drink = 0.6 oz pur e alcohol) caffeine: 2-3 cups per day Comments Unknown Sex and Gender Information Value Date Recorded Sex Assigned at Female 11/09/2023 6:14 AM EDT Legal Sex Female 11:50 PM EDT Gender Identity Female 11/09/2023 6:14 AM EDT Sexual Orientation Not on file documented as of this encounter Plan of Treatment Not on file documented as of this encounter Visit Diagnoses Not on filedocumented in this encounter Care Teams Tram Inspector Relationship Specialty Start Date End Date Rosibel Jerez MD [address] [place] [address] PCP - General Physician Pilot Fuel Engineer 12/14/23 Teresa Quintanilla MD [address] [place], [place] [id number] Referring Physician Family Medicine 03/02/23 documented as of this encounter
--- OUTSIDE RECORDS SUMMARY | 2025-04-05 07:42 | XMS_ITS | Encounter Summary ---
Author Organization [facility] Address [address] [facility] [place] [address] Care Team Providers Care Boiler/Chiller Technician Name Role Phone Teresa Quintanilla MD Unavailable [phone] Rosibel Jerez MD Primary Care Provider Encounter Details Date Type Department Care Team (Late st Contact Info) Description 03/09/2024 Abstract [facility]OM[facility]athryn [facility]ALLACE [address] [place] [address] Solomon Sorensen DO [address] [facility] [address] [place], [place] [id number] Social History Tobacco Use Types Packs/Day Years Used Date Smoking Tobacco: Never Smokeless Tobacco: Never Alcohol Use Standard Drinks/Week Comments Never 0 (1 standard drink = 0.6 oz pur e alcohol) caffeine: 2-3 cups per day Comments No Sex and Gender Information Value Date Recorded Sex Assigned at Female 11/09/2023 6:14 AM EDT Legal Sex Female 11:50 PM EDT Gender Identity Female 11/09/2023 6:14 AM EDT Sexual Orientation Not on file documented as of this encounter Plan of Treatment Not on file documented as of this encounter Visit Diagnoses Not on filedocumented in this encounter Care Teams Boiler/Chiller Technician Relationship Specialty Start Date End Date Rosibel Jerez MD [address] [place] [address] PCP - General Physician Cosmetician 12/14/23 Teresa Quintanilla MD [address] [place] [address] Referring Physician Family Medicine 03/02/23 documented as of this encounter
--- OUTSIDE RECORDS SUMMARY | 2025-04-05 07:42 | XMS_ITS | Encounter Summary ---
Author Organization [facility] Address [address] [place] [address] Care Team Providers Care Snaker Tractor Driver Name Role Phone Amara Palacio CNP Unavailable [phone] Rosibel Jerez PA-C Primary Care Provider + Mar [place]-C Unavailable [phone] Source Comments In the event this information is protected by the Federal Confidentiality of Alcohol and Drug AbusePatient Records regulations: The Federal rules restrict any use of the information to criminally investigate or prosecute any alcohol or drug abuse patient.[facility] Encounter Details Date Type Department Care Team (Late st Contact Info) Description 07/21/2023 Get Medical Advice [facility] [place] [address] [place] [id number] Joo Cruz MD [address] [place] [address] [id number] Test results Social History Tobacco Use Types Packs/Day Years Used Date Smoking Tobacco: Every Day Cigarettes 0.5 20 Smokeless Tobacco: Never Passive Exposure Comments:va pe Alcohol Use Standard Drinks/Week Comments Yes 2 (1 standard drink = 0.6 oz pur e alcohol) 7-8 drinks per month [facility] Utilities Answer Date Recorded In the past 12 months has e electric, gas, oil, or water company threatened to shut off services in your home? Yes 04/09/2023 Social Connection and Isolation Panel Answer Date Recorded In a typical week, how many times do you talk on the phone with family, friends, or neighbors? More than three times a week 04/09/2023 How often do you get togethe r with friends or relatives? Once a week 04/09/2023 How often do you attend chur ch or moravian services? 1 to 4 times per year 04/09/2023 Do you belong to any clubs o r organizations such as gnosticism groups, unions, fraternal or athletic groups, or school groups? Yes 04/09/2023 How often do you attend meet ings of the clubs or organizations you belong to? More than 4 times per year 04/09/2023 Are you , , di vorced, , never , or living with a partner? Never 04/09/2023 AUDIT-C Answer Date Recorded Q1: How often do you have a drink containing alc ohol? 2-4 times a month 04/09/2023 Q2: How many drinks containi ng alcohol do you have on a typical day when you are drinking? Patient declined 04/09/2023 Q3: How often do you have si x or more drinks on one occasion? Patient declined 04/09/2023 Overall Financial Resource Strain (CARDIA) Answe r Date Recorded How hard is it for you to pa y for the very basics like food, housing, medical care, and heating? Very hard 04/09/2023 PHQ-2 Answer Date Recorded PHQ-2 score 3 07/02/2023 [facility] [place] of Occupat ional Health - Occupational Stress Questionnaire Answer Date Recorded Do you feel stress - tense, restless, nervous, or anxious, or unable to sleep at night because your mind is troubled all the time - these days? Very much 04/09/2023 Exercise Vital Sign Answer Date Recorde d Days of Exercise per Week Not on file 2022 On average, how many minutes do you engage in exercise at this level? 60 min 04/09/2023 Hunger Vital Sign Answer Date Recorded Within the past 12 months, y ou worried that your food would run out before you got the money to buy more. Often true 04/09/20 23 Within the past 12 months, t he food you bought just didn't last and you didn't have money to get more. Often true 04/09/2023 PRAPARE - Transportation Answer Date Re corded In the past 12 months, has l ack of transportation kept you from medical appointments or from getting medications? Yes 12/2022 In the past 12 months, has l ack of transportation kept you from meetings, work, or from getting things needed for daily living? Yes 04/09/2023 Housing Stability Vital Sign Answer Enrike e [...] place to sleep or slept in a prison (including now)? No 04/09/2023 Area Deprivation Index Answer Date Darrius rded National Score (1-100), lower number is lower ri sk 87 01/15/2023 State Score (1-10), lower number is lower risk 8 01/15/2023 Data from: https://www.neighborhoodatlas.medicine.[facility].edu/. Last address used for calculation [address] [...] hearing? Answer Date of Assessment Author No 05/03/2014 1:19 PM EDT Rolando Miguel MA * Are you blind or do you have serious difficulty seeing, even when wearing glasses? Answer Date of Assessment Author No 05/03/2014 1:19 PM EDT Rolando Miguel MA * Do you have serious difficulty walking or climbing stairs? Answer Date of Assessment Author No 05/03/2014 1:19 PM EDT Rolando Miguel MA * Do you have difficulty dressing or bathing? Answer Date of Assessment Author No 05/03/2014 1:19 PM EDT Rolando Miguel MA * Because of a physical, mental, or emotional condition, do you have difficulty doing errands alone such as visiting a doctor's office or shopping? Answer Date of Assessment Author No 05/03/2014 1:19 PM EDT Rolando Miguel MA documented as of this encounter Mental Status * Because of a physical, mental, or emotional condition, do you have serious difficulty concentrating, remembering, or making decisions? Answer Entry Date Author No 05/03/2014 1:19 PM EDT Rolando Miguel MA documented in this encounter Plan of Treatment Upcoming Encounters Date Type Department Care Team (Late st Contact Info) Description 06/06/2025 10:30 AM EST Office Visit Gastroenterology [address] [place] [address] [place] [address] [place] [address] Nausea and vomiting, unspecified vomiting type [R11.2] documented as of this encounter Visit Diagnoses Not on filedocumented in this encounter Care Teams Snaker Tractor Driver Relationship Specialty Start Date End Date Rosibel Jerez PA-C [address] [place], [place] [id number] PCP - General Internal Medicine 04/09/23 Amara Palacio CNP [address] [place] [address] [place] [address] Referring Family Medicine 02/20/22 Mar [place] PA-C [address] [place], [place] [phone] [place]. Commissioner Internal Medicine 06/12/24 08/14/24 documented as of this encounter
--- OUTSIDE RECORDS SUMMARY | 2025-04-05 07:42 | XMS_ITS | Encounter Summary ---
Author Organization [facility] Address [address] [place] [phone] Phone Care Team Providers Care Stone Paver Name Role Phone Unavailable Primary Care Provider Unavailabl e Reason for Referral * Imaging (Routine) - Pending Review Specialty Diagnoses / Procedures Referred By Renee t Referred To Contact Radiology Diagnoses Encounter for screening for cardiovascular disorders Mixed hyperlipidemia Palpitations Procedures CT cardiac scoring wo IV contrast Franchesca Grace MD [address] [place] [address] Phone: tel: fax: Referral ID Status Reason Start Date Expiration Date Visits Requested Visits Authorized [id number] Pending Review Perform Procedure 01/23/2025 01/23/2026 1 1 Encounter Details Date Type Department Care Team (Latest Contact Info) Description 01/23/2025 Transcribe Orders [facility] [address] [place] [address] Franchesca Grace MD [address] [place] [address] Encounter for screening for cardiovascular disorders (Primary Dx); Mixed hyperlipidemia; Palpitations Social History Tobacco Use Types Packs/Day Years Used Date Smoking Tobacco: Never Assessed Comments Unknown Sex and Gender Information Value Date Recorded Sex Assigned at Not on file Legal Sex Female 11:14 AM EST Gender Identity Not on file Sexual Orientation Not on file documented as of this encounter Plan of Treatment Scheduled Orders Name Type Priority Associated Diagnoses Orde r Schedule CT cardiac scoring wo IV contrast Imaging Routine Encounter for screening for cardiovascular disorders Mixed hyperlipidemia Palpitations Expected: 01/23/2025, Expires: 01/23/2026 documented as of this encounter Visit Diagnoses Diagnosis Encounter for screening for cardiovascular disorders- Primary Mixed hyperlipidemia Palpitations documented in this encounter
--- OUTSIDE RECORDS SUMMARY | 2025-04-05 07:42 | XMS_ITS | Encounter Summary ---
Author Organization [facility] Address [address] [place] [address] Care Team Providers Care Poultry Offal Worker Name Role Phone Amara PalacioMarialuisa TREER Unavailable [phone] Rosibel Jerez PA-C Primary Care Provider + Source Comments In the event this information is protected by the Federal Confidentiality of Alcohol and Drug AbusePatient Records regulations: The Federal rules restrict any use of the information to criminally investigate or prosecute any alcohol or drug abuse patient.[facility] Encounter Details Date Type Department Care Team (Late st Contact Info) Description 12/19/2024 Patient Msg Internal Medicine [facility] [address] [place], [place] [phone] Rosibel Jerez PA-C [address] [place], [place] [phone] Appointment Request Social History Tobacco Use Types Packs/Day Years Used Date Smoking Tobacco: Former Cigarettes 0.5 20 0 07/12/2003 - 07/12/2023 Smokeless Tobacco: Never Passive Exposure Comments:va pe Alcohol Use Standard Drinks/Week Comments Yes 2 (1 standard drink = 0.6 oz pur e alcohol) 7-8 drinks per month [facility] Utilities Answer Date Recorded In the [...] often do you attend chur ch or sabianism services? 1 to 4 times per year 10/05/2024 Do you belong to any clubs o r organizations such as advent groups, unions, fraternal or athletic groups, or [...] Answer Date Recorded PHQ-2 score 4 12/20/2024 [facility] of Occupat ional Health - Occupational Stress [...] is lower risk 8 01/15/2023 Data from: https://www.neighborhoodatlas.medicine.[facility].edu/. Last address used for calculation [address] [...] 06/06/2025 10:30 AM EST Office Visit Gastroenterology [address] [place] [address] [place] [address] [place] [address] Nausea and vomiting, unspecified vomiting type [R11.2] documented as of this encounter Visit Diagnoses Not on filedocumented in this encounter Care Teams Poultry Offal Worker Relationship Specialty Start Date End Date Rosibel Jerez PA-C [address] [place] [address] PCP - General Internal Medicine 04/09/23 Amara Palacio [place] [address] [facility] [place] [address] Referring Family Medicine 02/20/22 documented as of this encounter
--- OUTSIDE RECORDS SUMMARY | 2025-04-05 07:42 | XMS_ITS | Encounter Summary ---
Author Organization [facility] Address [address] [place], [place] [id number] Care Team Providers Care Soda Column Operator Name Role Phone Fred Cohen Primary Care Provider [phone] Abimael Cavazos Primary Care Provider Unavailabl e Teresa Quintanilla LINE PERSON Primary Care Provider [phone] Amara Palacio LINE PERSON Unavailable [phone] Rosibel Jerez-C Primary Care Provider + Nitza Valdovinos [address] REGISTRAR Unavailable [phone] Mar [place]-C Unavailable [phone] Source Comments In the event this information is protected by the Federal Confidentiality of Alcohol and Drug AbusePatient Records regulations: The Federal rules restrict any use of the information to criminally investigate or prosecute any alcohol or drug abuse patient.[facility] Encounter Details Date Type Department Care Team (Latest Contact Info) Description 03/24/2004 Prob Sum Review Provider, [facility] Social History Tobacco Use Types Packs/Day Years Used Date Smoking Tobacco: Never Assessed Comments No Sex and Gender Information Value Date Recorded Sex Assigned at Female 03/18/2023 5:54 AM EDT Legal Sex Female 9:48 AM EST Gender Identity Female 03/18/2023 5:54 AM EDT Sexual Orientation Choose not to disclose 2022 9:49 AM EST documented as of this encounter Plan of Treatment Upcoming Encounters Date Type Department Care Team (Late st Contact Info) Description 06/06/2025 10:30 AM EST Office Visit Gastroenterology [address] [place] [address] [place] [address] [place] [address] Nausea and vomiting, unspecified vomiting type [R11.2] documented as of this encounter Visit Diagnoses Not on filedocumented in this encounter Care Teams Soda Column Operator Relationship Specialty Start Date End Date Fred Cohen [address] [place] [address] PCP - General 01/31/02 03/26/14 Abimael Cavazos [address] [place] [address] PCP - General Family Medicine 03/27/14 12/17/18 Teresa Quintanilla LINE PERSON [address] [place] [address] PCP - General 12/18/18 04/08/23 Rosibel Jerez PA-C [address] [place] [address] PCP - General Internal Medicine 04/09/23 Amara Palacio LINE PERSON [address] [place] [address] Referring Family Medicine 02/20/22 Nitza Valdovinos, JACOB Stripper Black And White Chute Greaser 04/15/23 04/20/23 Mar [place] PA-C [facility] [place] [phone] Flattening Machine Operator Internal Medicine 06/12/24 08/14/24 documented as of this encounter
--- OUTSIDE RECORDS SUMMARY | 2025-04-05 07:42 | XMS_ITS | Encounter Summary ---
Author Organization [facility] Address [address] [place] [address] Care Team Providers Care Virtual Assistant For Advertisers Name Role Phone Amara Palacio CNP Unavailable [phone] Rosibel Jerez-C Primary Care Provider + Mar P[place]C Unavailable [phone] Source Comments In the event this information is protected by the Federal Confidentiality of Alcohol and Drug AbusePatient Records regulations: The Federal rules restrict any use of the information to criminally investigate or prosecute any alcohol or drug abuse patient.[facility] Encounter Details Date Type Department Care Team (Late st Contact Info) Description 07/28/2023 Patient Msg Spine [place] [address] [place] [address] ProviderBela Preop Education Class 07/29 @ 10am Social History Tobacco Use Types Packs/Day Years Used Date Smoking Tobacco: Every Day Cigarettes 0.5 20 Smokeless Tobacco: Never Passive Exposure Comments:wi pe Alcohol Use Standard Drinks/Week Comments Yes 2 (1 standard drink = 0.6 oz pur e alcohol) 7-8 drinks per month [facility] Utilities Answer Date Recorded In the past [...] often do you attend chur ch or tenriism services? 1 to 4 times per year 04/09/2023 Do you belong to any clubs o r organizations such as religion groups, unions, fraternal or athletic groups, or [...] Answer Date Recorded PHQ-2 score 3 07/02/2023 [facility] [place] of Occupat ional Health - Occupational Stress [...] place to sleep or slept in a group home (including now)? No 04/09/2023 Area Deprivation Index Answer Date Darrius rded National Score (1-100), lower number is lower ri sk 87 01/15/2023 State Score (1-10), lower number is lower risk 8 01/15/2023 Data from: https://www.neighborhoodatlas.medicine.[facility].edu/. Last address used for calculation [address] 01/15/2023 Comments No Sex and Gender Information [...] 06/06/2025 10:30 AM EST Office Visit Gastroenterology [address] [place] [address] [place] [address] [place] [address] Nausea and vomiting, unspecified vomiting type [R11.2] documented as of this encounter Visit Diagnoses Not on filedocumented in this encounter Care Teams Virtual Assistant For Advertisers Relationship Specialty Start Date End Date Rosibel Jerez PA-C [address] [place] [address] PCP - General Internal Medicine 04/09/23 Amara Palacio CNP [address] [place] [address] Referring Family Medicine 02/20/22 Mar [place] PA-C [address] [place] [phone] Gasket Former Internal Medicine 06/12/24 08/14/24 documented as of this encounter
--- OUTSIDE RECORDS SUMMARY | 2025-04-05 07:42 | XMS_ITS | Encounter Summary ---
Author Organization [facility] Address [address] [facility] [place] [address] Care Team Providers Care Physical Optics Teacher Name Role Phone Teresa Quintanilla MD Unavailable [phone] Rosibel Jerez MD Primary Care Provider [phone] Encounter Details Date Type Department Care Team (Late st Contact Info) Description 12/15/2023 Abstract [facility]ACE [address] [facility] [place] [address] Solomon Sorensen DO [address] [facility] [address] [place] Garcia[place], [place] [id number] Social History Tobacco Use Types Packs/Day Years [...] on filedocumented in this encounter Care Teams Physical Optics Teacher Relationship Specialty Start Date End Date Rosibel Jerez MD [address] [place] [address] PCP - General Physician Juice Packaging Machines Setter 12/14/23 Teresa Quintanilla MD [address] [place] [address] Referring Physician Family Medicine 03/02/23 documented as of this encounter
--- OUTSIDE RECORDS SUMMARY | 2025-04-05 07:42 | XMS_ITS | Encounter Summary ---
Author Organization [facility] Address [address] [place] [address] Care Team Providers Care Wire Border Assembler Name Role Phone Amara Palacio CNP Unavailable [phone] Rosibel Jerez-C Primary Care Provider + Mar Ponce PA-C Unavailable [phone] Source Comments In the event this information is protected by the Federal Confidentiality of Alcohol and Drug AbusePatient Records regulations: The Federal rules restrict any use of the information to criminally investigate or prosecute any alcohol or drug abuse patient.[facility] Encounter Details Date Type Department Care Team (Late st Contact Info) Description 01/14/2024 Patient Msg Neurology [address] [place] [id number] Provider, Ccf Dr. Cruz [address] Surgery Appointment Social History Tobacco Use Types Packs/Day Years Used Date Smoking Tobacco: Former Cigarettes 0.5 20 0 07/12/2003 - 07/12/2023 Smokeless Tobacco: Never Passive Exposure Comments:va pe Alcohol Use Standard Drinks/Week Comments Yes 2 (1 standard drink = 0.6 oz pur e alcohol) 7-8 drinks per month [facility] Utilities Answer Date Recorded In the [...] often do you attend chur ch or baptism services? 1 to 4 times per year 04/09/2023 Do you belong to any clubs o r organizations such as taoist groups, unions, fraternal or athletic groups, or [...] 04/09/2023 PHQ-2 Answer Date Recorded PHQ-2 score 4 10/31/2023 [facility] [employer] of Occupat ional Health - Occupational Stress [...] place to sleep or slept in a care home (including now)? No 04/09/2023 Area Deprivation Index Answer Date Darrius rded National Score (1-100), lower number is lower ri sk 87 01/15/2023 State Score (1-10), lower number is lower risk 8 01/15/2023 Data from: https://www.neighborhoodatlas.medicine.[facility].edu/. Last address used for calculation [...] 06/06/2025 10:30 AM EST Office Visit Gastroenterology [address] [place] [address] [place] [address] [place] [address] Nausea and vomiting, unspecified vomiting type [R11.2] documented as of this encounter Visit Diagnoses Not on filedocumented in this encounter Care Teams Wire Border Assembler Relationship Specialty Start Date End Date Rosibel Jerez PA-C [address] [place] [address] PCP - General Internal Medicine 04/09/23 Amara Palacio CNP [address] [place] [address] [place] [address] Referring Family Medicine 02/20/22 Mar Ponce PA-C [address] [place], [place] [id number] Associate Product Manager Internal Medicine 06/12/24 08/14/24 documented as of this encounter
--- OUTSIDE RECORDS SUMMARY | 2025-04-05 07:42 | XMS_ITS | Encounter Summary ---
Author Organization [facility] Address [address] [place] [address] Care Team Providers Care Welder Fitter Arc Name Role Phone Amara Palacio CNP Unavailable [phone] Rosibel Jerez-C Primary Care Provider + Mar Ponce PA-C Unavailable [phone] Source Comments In the event this information is protected by the Federal Confidentiality of Alcohol and Drug AbusePatient Records regulations: The Federal rules restrict any use of the information to criminally investigate or prosecute any alcohol or drug abuse patient.[facility] Encounter Details Date Type Department Care Team (Late st Contact Info) Description 07/27/2023 Patient Msg Spine [place] [address] [place] [address] Provider, Ccf Important Reminder for Preparing Your Skin for Surgery Social History Tobacco Use Types Packs/Day Years Used Date Smoking Tobacco: Every Day Cigarettes 0.5 20 Smokeless Tobacco: Never Passive Exposure Comments:tn pe Alcohol Use Standard Drinks/Week Comments Yes 2 (1 standard drink = 0.6 oz pur e alcohol) 7-8 drinks per month [facility] Utilities Answer Date Recorded In the past [...] often do you attend chur ch or yazdanism services? 1 to 4 times per year 04/09/2023 Do you belong to any clubs o r organizations such as oriental orthodox groups, unions, fraternal or athletic groups, or [...] Date Recorded PHQ-2 score 3 07/02/2023 [facility] [place] of Occupat ional Health - Occupational Stress [...] place to sleep or slept in a assisted (including now)? No 04/09/2023 Area Deprivation Index Answer Date Darrius rded National Score (1-100), lower number is lower ri sk 87 01/15/2023 State Score (1-10), lower number is lower risk 8 01/15/2023 Data from: https://www.neighborhoodatlas.medicine.[facility].edu/. Last address used for calculation [address] [...] 06/06/2025 10:30 AM EST Office Visit Gastroenterology [address] [place] [address] [place] [address] [place] [address] Nausea and vomiting, unspecified vomiting type [R11.2] documented as of this encounter Visit Diagnoses Not on filedocumented in this encounter Care Teams Welder Fitter Arc Relationship Specialty Start Date End Date Rosibel Jerez PA-C [address] [place] [address] PCP - General Internal Medicine 04/09/23 Amara Palacio CNP [address] [place] [address] Referring Family Medicine 02/20/22 Mar Ponce PA-C [address] [place] [address] [employer] Hvac R Instructor Internal Medicine 06/12/24 08/14/24 documented as of this encounter
--- OUTSIDE RECORDS SUMMARY | 2025-04-05 07:42 | XMS_ITS | Encounter Summary ---
Author Organization [facility] Address [address] [place] [address] Care Team Providers Care Cook Camp Name Role Phone Teresa Quintanilla MD Unavailable [phone] Rosibel Jerez MD Primary Care Provider Encounter Details Date Type Department Care Team (Late st Contact Info) Description 02/11/2024 Clinisync Result Encounter [facility] External Department Unsolicited Stevenson Soernsen, DO [address] [facility] [place] [address] Social History Tobacco Use Types Packs/Day Years [...] on file documented as of this encounter Miscellaneous Notes * Result Encounter Note - Shelbi Capone LPN - 02/11/2024 6:34 PM EDT Faxed to PCP documented in this encounter Plan of Treatment Not on file documented as of this encounter Procedures Procedure Name Priority Date/Time Associated Diagnosis Comments ECG 12-LEAD 02/11/2024 8:41 AM EDT documented in this encounter Results * ECG 12-LEAD (02/11/2024 8:41 AM EDT) Anatomical Region Laterality Modality Other 02/11/2024 8:41 AM EDT Narrative 02/11/2024 6:32 [place] [address] Electrocardiograph Report Signed Patient: LADI YUN MR#: [id number] : 1985 Acct:[id number] Age/Sex: 38 / F ADM Date: 02/11/24 Loc: [facility] Attending Dr: Stevenson Sorensen D.O. Ordering Physician: Stevenson Sorensen D.O. Date of Service: 02/11/24 Procedure(s): ECG 12 lead Accession Number(s): [id number] cc: [facility] Test Date: 2024-02-11 Pat Name: LADI YUN Department: Room: - Gender: Female Psychiatric Secretary: : 1985 Requested By: STEVENSON SORENSEN Order Number: [id number] Reading MD: ROBERT REEVES Measurements Intervals [place] Rate: 96 P: -1 MI: 124 QRS: 257 QRSD: 148 T: 18 QT: 439 QTc: 555 Interpretive Statements SINUS RHYTHM MARKED RIGHT AXIS DEVIATION [QRS AXIS > 100] RIGHT BUNDLE BRANCH BLOCK [120+ ms QRS DURATION, UPRIGHT V1, 40+ ms S IN I/aVL/V4/V5/V6] Compared to ECG 12/29/2021 07:56:18 Electronically Signed On 02-11-2024 18:31:47 EDT by ROBERT REEVES Dictated By: Robert Reeves D.O. Signed By: 02/11/24 1832 DD/ 0841 TD/TT: It Quality Analyst: Procedure Note Radiology, Radiologist, MD - 02/11/2024 [address] [place] [id number] Electrocardiograph Report Signed Patient: LADI YUN LMR#: [id number] : 1985Acct:[id number] Age/Sex: 38 / FADM Date: 02/11/24 Loc: PST Attending Dr: Stevenson Sorensen D.O. Ordering Physician: Stevenson Sorensen D.O. Date of Service: 02/11/24 Procedure(s): ECG 12 lead Accession Number(s): [id number] cc: [facility] Test Date: 2024-02-11 Pat Name: LADI YUN Department: Room: - Gender: Female Psychiatric Secretary: : 1985 Requested By: STEVENSON SORENSEN Order Number: [id number] Reading MD: ROBERT REEVES Measurements Intervals [place] Rate: 96 P: -1 MI: 124 QRS: 257 QRSD: 148 T: 18 QT: 439 QTc: 555 Interpretive Statements SINUS RHYTHM MARKED RIGHT AXIS DEVIATION [QRS AXIS > 100] RIGHT BUNDLE BRANCH BLOCK [120+ ms QRS DURATION, UPRIGHT V1, 40+ ms S IN I/aVL/V4/V5/V6] Compared to ECG 12/29/2021 07:56:18 Electronically Signed On 02-11-2024 18:31:47 EDT by RBOERT REEVES Dictated By: Robert Reeves D.O. Signed By:02/11/24 1832 DD/ 0841 TD/TT: It Quality Analyst: Stevenson Sorensen DO [facility] Final Result documented in this encounter Visit Diagnoses Not on filedocumented in this encounter Care Teams Cook Camp Relationship Specialty Start Date End Date Rosibel Jerez MD [address] [place] [address] PCP - General Physician Manager Competitive Intelligence 12/14/23 Teresa Quintanilla MD [address] [place] [address] Referring Physician Family Medicine 03/02/23 documented as of this encounter
--- OUTSIDE RECORDS SUMMARY | 2025-04-05 07:42 | XMS_ITS | Encounter Summary ---
Author Organization [facility] Address [address] [place] [address] Care Team Providers Care Synthetic Gem Press Operator Name Role Phone Teresa Quintanilla MD Unavailable [phone] Rosibel Jerez MD Primary Care Provider Encounter Details Date Type Department Care Team (Late st Contact Info) Description 12/15/2023 Clinisync Result Encounter [facility] External Department Unsolicited Stevenson Sorensen, DO [address] [facility] [place] [address] Social History Tobacco Use Types Packs/Day Years [...] Procedure Name Priority Date/Time Associated Diagnosis Comments US PELVIS W/ TRANSVAGINAL 12/15/2023 7:43 AM EDT documented in this encounter Results * US PELVIS W/ TRANSVAGINAL (12/15/2023 7:43 AM EDT) Anatomical Region Laterality Modality Other 12/15/2023 7:43 AM EDT Narrative 12/15/2023 7:46 [place] [address] Ultrasound Report Signed Patient: LADI YUN MR#: [id number] : 1985 Acct:[id number] Age/Sex: 38 / F ADM Date: 12/15/23 Loc: US Attending Dr: Stevenson Sorensen D.O. Ordering Physician: Stevenson Sorensen D.O. Date of Service: 12/15/23 Procedure(s): US pelvis w/ transvaginal Accession Number(s): [id number] cc: Stevenson Sorensen D.O.; Physician,Non-Staff Dale The [address] [address] Patient Name: LADI YUN MRN: [id number] date: 1985 Sex: F Assigned Patient Location: US Current Patient Location: US Accession/Order Number: [id number] Exam Date: 12/15/2023 07:07 Report Date: 12/15/2023 07:43 At the request of: STEVENSON SORENSEN Procedure: US pelvis w/ transvaginal EXAMINATION: US pelvis w/ transvaginal HISTORY: Menorrhagia N92.0 COMPARISON: No relevant comparison available. FINDINGS: Transabdominal and transvaginal images The uterus is normal in size, contour and echotexture measuring 6.6 x 2.7 x 3.9 cm. No focal mass. The uterus is anteverted. Endometrium measures 2 mm, normal. The ovaries were not visualized likely due to bowel gas. No free fluid US/US pelvis w/ transvaginal IMPRESSION: Nonvisualization of the ovaries Thin endometrial stripe Electronically authenticated by: NELL MAS Date: 12/15/2023 07:43 Dictated By: Nell Mas M.D. Signed By: 12/15/2346 DD/ TD/TT: Chief Ii Dispatcher: Procedure Note Radiology, Radiologist, MD - 12/15/[address] [address] Ultrasound Report Signed Patient: LADI YUN LMR#: [id number] : 1985Acct:[id number] Age/Sex: 38 / FADM Date: 12/15/23 Loc: US Attending Dr: Stevenson Sorensen D.O. Ordering Physician: Stevenson Sorensen D.O. Date of Service: 12/15/23 Procedure(s): US pelvis w/ transvaginal Accession Number(s): [id number] cc: Stevenson Sorensen D.O.; Physician,Non-Staff [place] The [address] [address] Patient Name: LADI YUN MRN: [id number] date: 1985 Sex: F Assigned Patient Location: US Current Patient Location: US Accession/Order Number: [id number] Exam Date: 12/15/2023 07:07 Report Date: 12/15/2023 07:43 At the request of: STEVENSON SORENSEN Procedure: US pelvis w/ transvaginal EXAMINATION: US pelvis w/ transvaginal HISTORY: Menorrhagia N92.0 COMPARISON: No relevant comparison available. FINDINGS: Transabdominal and transvaginal images The uterus is normal in size, contour and echotexture measuring 6.6 x 2.7x 3.9 cm. No focal mass. The uterus is anteverted. Endometrium measures 2 mm, normal. The ovaries were not visualized likely due to bowel gas. No free fluid US/US pelvis w/ transvaginal IMPRESSION: Nonvisualization of the ovaries Thin endometrial stripe Electronically authenticated by: NELL MAS Date: 12/15/2023 07:43 Dictated By: Nell Mas M.D. Signed By:12/15/2346 DD/ 2 TD/TT: Chief Ii Dispatcher: us Stevenson Sorensen DO [facility] Final Result documented in this encounter Visit Diagnoses Not on filedocumented in this encounter Care Teams Synthetic Gem Press Operator Relationship Specialty Start Date End Date Rosibel Jerez MD [address] [place] [address] PCP - General Physician Metal Weather Stripper 12/14/23 Teresa Quintanilla MD [address] [place] [address] Referring Physician Family Medicine 03/02/23 documented as of this encounter
--- OUTSIDE RECORDS SUMMARY | 2025-04-05 07:42 | XMS_ITS | Encounter Summary ---
Author Organization [facility] Address [address] [place] [address] Care Team Providers Care Song Lyricist Name Role Phone Amara Palacio Osbaldo CANDY PULLER Unavailable [phone] Rosibel Jerez PA-C Primary Care Provider + Mar Ponce PA-C Unavailable [phone] Source Comments In the event this information is protected by the Federal Confidentiality of Alcohol and Drug AbusePatient Records regulations: The Federal rules restrict any use of the information to criminally investigate or prosecute any alcohol or drug abuse patient.[facility] Encounter Details Date Type Department Care Team (Late st Contact Info) Description 01/04/2024 Get Medical Advice Internal Medicine [facility] [address] [place] [address] Rosibel Jerez PA-C [address] [place], [place] [id number] Medicine Social History Tobacco Use Types Packs/Day Years Used Date Smoking Tobacco: Former Cigarettes 0.5 20 0 07/12/2003 - 07/12/2023 Smokeless Tobacco: Never Passive Exposure Comments:oh pe Alcohol Use Standard Drinks/Week Comments Yes 2 (1 standard drink = 0.6 oz pur e alcohol) 7-8 drinks per month [facility] Utilities Answer Date Recorded In the past 12 months has [employer], gas, oil, or water [employer] threatened to shut off services in your [...] often do you attend chur ch or congregation services? 1 to 4 times per year 04/09/2023 Do you belong to any clubs o r organizations such as zoroastrianism groups, unions, fraternal or athletic groups, or [...] Answer Date Recorded PHQ-2 score 4 10/31/2023 [facility] of Occupat ional Health - Occupational Stress [...] is lower risk 8 01/15/2023 Data from: https://www.neighborhoodatlas.medicine.[facility].edu/. Last address used for calculation [...] encounter Miscellaneous Notes * Telephone Encounter - Rosibel Jerez PA-C - 01/04/2024 3:42 PM EDT Rx prescribed by neurosurg. Please forward to neurosurg as she has maintained care with that team. Rosibel Jerez PA-C If Neurosurgery no longer following patients care/management - please let me know Rosibel Jerez PA-C * Telephone Encounter - Yue Ross MA - 01/04/2024 2:19 PM EDT Patient was last seen 09/10/2023 documented in this encounter Plan of Treatment Upcoming Encounters Date Type Department Care Team (Late st Contact Info) Description 06/06/2025 10:30 AM EST Office Visit Gastroenterology [address] [place] [address] [place] [address] [place] [address] Nausea and vomiting, unspecified vomiting type [R11.2] documented as of this encounter Visit Diagnoses Diagnosis S/P cervical spinal fusion- Primary Arthrodesis status documented in this encounter Care Teams Song Lyricist Relationship Specialty Start Date End Date Rosibel Jerez PA-C [address] [place] [address] PCP - General Internal Medicine 04/09/23 Amara Palacio CANDY PULLER [address] [place] [address] Referring Family Medicine 02/20/22 Mar Ponce PA-C [facility] [place] [address] Cloud Services Architect Internal Medicine 06/12/24 08/14/24 documented as of this encounter
--- OUTSIDE RECORDS SUMMARY | 2025-04-05 07:42 | XMS_ITS | Encounter Summary ---
Author Organization [facility] Address [address] [place] [address] Care Team Providers Care Move Coordinator Name Role Phone Amara Palacio FORTUNE COOKIE MAKER Unavailable [phone] Rosibel Jerez PA-C Primary Care Provider + Mar Ponce-C Unavailable [phone] Source Comments In the event this information is protected by the Federal Confidentiality of Alcohol and Drug AbusePatient Records regulations: The Federal rules restrict any use of the information to criminally investigate or prosecute any alcohol or drug abuse patient.[facility] Encounter Details Date Type Department Care Team (Late st Contact Info) Description 07/29/2023 Patient Msg [facility] [address] [facility] [address] Provider, Ccf 08/10/2023 Social History Tobacco Use Types Packs/Day Years Used Date Smoking Tobacco: Every Day Cigarettes 0.5 20 Smokeless Tobacco: Never Passive Exposure Comments:va pe Alcohol Use Standard Drinks/Week Comments Yes 2 (1 standard drink = 0.6 oz pur e alcohol) 7-8 drinks per month [facility] Utilities Answer Date Recorded In the [...] often do you attend chur ch or evangelical services? 1 to 4 times per year 04/09/2023 Do you belong to any clubs o r organizations such as amish groups, unions, fraternal or athletic groups, or [...] Answer Date Recorded PHQ-2 score 3 07/02/2023 [facility] [place] of Occupat ional Health - Occupational Stress [...] is lower risk 8 01/15/2023 Data from: https://www.neighborhoodatlas.medicine.[facility].edu/. Last address used for calculation [address] [...] 06/06/2025 10:30 AM EST Office Visit Gastroenterology [address] [place] [address] [place] [address] [place] [address] Nausea and vomiting, unspecified vomiting type [R11.2] documented as of this encounter Visit Diagnoses Not on filedocumented in this encounter Care Teams Move Coordinator Relationship Specialty Start Date End Date Rosibel Jerez PA-C [address] [place] [address] PCP - General Internal Medicine 04/09/23 Amara Palacio CNP [address] [place] [address] Referring Family Medicine 02/20/22 Mar Ponce PA-C NPI: [id number] [place] [address] Nuisance Wildlife Specialist Internal Medicine 06/12/24 08/14/24 documented as of this encounter
--- OUTSIDE RECORDS SUMMARY | 2025-04-05 07:42 | XMS_ITS | Encounter Summary ---
Author Organization [facility] Address [address] [place] [address] Care Team Providers Care Solar Sales Rep Name Role Phone Teresa Quintanilla DIRECTOR CHANNEL Primary Care Provider + Amara Palacio DIRECTOR CHANNEL Unavailable [phone] Rosibel Jerez PA-C Primary Care Provider + Nitza Valdovinos BOARDING HOUSE COOK Unavailable [phone] Mar Ponce-C Unavailable [phone] Source Comments In the event this information is protected by the Federal Confidentiality of Alcohol and Drug AbusePatient Records regulations: The Federal rules restrict any use of the information to criminally investigate or prosecute any alcohol or drug abuse patient.[facility] Encounter Details Date Type Department Care Team (Late st Contact Info) Description 12/22/2022 Patient Msg Neurology [address] [place] [address] Tristan Guallpa MD [address] [place] [id number] Following up Social History Tobacco Use Types Packs/Day Years Used Date Smoking Tobacco: Former Cigarettes 0.5 7 Smokeless Tobacco: Never Alcohol Use Standard Drinks/Week Comments Yes 0 (1 standard drink = 0.6 oz pur e alcohol) 7-8 drinks per month PHQ-2 Answer Date Recorded PHQ-2 Score 0 05/27/2019 Area Deprivation Index Answer Date Darrius rded National Score (1-100), lower number is lower ri sk 74 07/31/2022 State Score (1-10), lower number is lower risk N ot on file 07/31/2022 Data from: https://www.neighborhoodatlas.medicine.[facility]/. Last address used for calculation [address] 07/31/2022 Comments No Sex and Gender Information Value [...] 06/06/2025 10:30 AM EST Office Visit Gastroenterology [address] [place] [address] [place] [address] [facility] [address] Nausea and vomiting, unspecified vomiting type [R11.2] documented as of this encounter Visit Diagnoses Not on filedocumented in this encounter Care Teams Solar Sales Rep Relationship Specialty Start Date End Date Teresa Quintanilla DIRECTOR CHANNEL [address] [place] [address] PCP - General 12/18/18 04/08/23 Rosibel Jerez PA-C [address] [place] [address] PCP - General Internal Medicine 04/09/23 Amara Palacio DIRECTOR CHANNEL [address] [place] [address] Referring Family Medicine 02/20/22 Nitza Valdovinos, BOARDING HOUSE COOK Collar Tacker Documentation Consultant 04/15/23 04/20/23 Mar Ponce PA-C [address] [place] [address] Pole Tester Internal Medicine 06/12/24 08/14/24 documented as of this encounter
--- OUTSIDE RECORDS SUMMARY | 2025-04-05 07:42 | XMS_ITS | Clinical Summary ---
Author Organization [facility] Address [address] [facility] [place] [address] Care Team Providers Care Music Publisher Name Role Phone Teresa Quintanilla MD Unavailable [phone] Rosibel Jerez MD Primary Care Provider Allergies Active Allergy Reactions Criticality Noted Date Comments Amoxicillin Unknown,Rash High 03/04/2023 Other Reaction(s): hives Amoxicillin-Pot Clavulanate Unknown High 02/24/2023 Cariprazine Other,Unknown 12/29/2021 Other Reaction(s): out of body experience, Unknown Iothalamate Unknown 08/09/2013 Metoclopramide Other,Unknown 12/30/2009 Other Reaction(s): rash, Unknown Penicillins Hives,Other,Unknown High 12/18/2018 Medications busPIRone (Buspar) 10 MG tablet Take 2 tablets by mouth in the morning and 2 tablets before bedtime. Active cetirizine (ZyrTEC) 10 MG tablet 1 (one) time each day at the same time. Active cyanocobalamin (Vitamin B-12) 1000 MCG tablet Take 1,000 mcg by mouth in the morning. 11/07/2022 Active dicyclomine (Bentyl) 10 MG capsule every 6 (six) hours. Active gabapentin (Neurontin) 100 MG capsule 1 capsule Active lisdexamfetamin e (Vyvanse) 30 MG capsule 20 mg 1 (one) time each day at the same time. 12/03/2022 Active SUMAtriptan (Imitrex) 50 MG tablet every 12 (twelve) hours. Active Turmeric 500 MG capsule 1 (one) time each day at the same time. Active pantoprazole (ProtoNix) 40 MG EC tablet TAKE 1 TABLET BY MOUTH EVERY DAY FOR 30 DAYS 02/19/2023 Active celecoxib (CeleBREX) 200 MG capsule 1 (one) time each day at the same time Active Blisovi 24 Fe 1-20 MG-MCG(24) tablet Take 1 tablet by mouth in the morning. 07/25/2023 Active propranolol LA (Inderal LA) 80 MG 24 hr capsule 1 capsule 1 (one) time each day at the same time Active ZyPREXA 15 MG tablet 1 (one) time each day at the same time Active Active Problems Problem Noted Date Diagnosed Date Acid reflux 02/24/2023 Anxiety 02/24/2023 Chronic post-traumatic stress disorder (PTSD) Chronic rhinitis 02/24/2023 Current smoker 02/24/2023 Overview (02/24/2023): Added secondary to documentation in Social History. Depressed bipolar I disorder 02/24/2023 Insomnia 02/24/2023 Inattention 02/24/2023 Mixed bipolar affective disorder, mild Obesity 02/24/2023 Mixed hyperlipidemia 05/24/2020 Resolved Problems Problem Noted Date Diagnosed Date Resolved Date Acute hypokalemia 02/24/2023 02/24/2023 Family History Medical History Relation Name Comments Bone cancer Maternal Grandmother Lung cancer Paternal Grandfather Heart attack Paternal Grandmother Relation Name Status Comments Maternal Grandmother Paternal Grandfather Paternal Grandmother Social History Tobacco Use Types Packs/Day Years [...] Sign Reading Time Taken Comments Blood Pressure 122/80 03/09/2024 10:54 AM EDT Pulse - - Temperature - - Respiratory Rate - - Oxygen Saturation - - Inhaled Oxygen Concentration - - Weight 79.6 kg (175 lb 6.4 oz) 03/09/2024 10:54 AM EDT Height 152.4 cm (5') 02/09/2024 1:55 PM EDT Body Mass Index 34.26 02/09/2024 1:55 PM EDT Plan of Treatment Health Maintenance Due Date Last Done Comments HPV/Cotest 2015 Mammogram 2025 Influenza Vaccine (#1) 2025 09/09/2010 Cervical Cancer Screening 11/14/2026 Pap Smear 11/14/2026 11/15/2023 Procedures Procedure Name Priority Date/Time Associated Diagnosis Comments PAP SMEAR Routine 11/15/2023 12:00 AM EDT from Last 3 Months or Most Recently Relevant to Health Maintenance Results * Pap Smear (11/15/2023 12:00 AM EDT) Swab Cervical swab / Unknown [facility] Ob LAB CYTOLOGY ORDERABLES Final Result EXTERNAL LAB from Last 3 Months or Most Recently Relevant to Health Maintenance Insurance [employer] Care Teams Music Publisher Relationship Specialty Start Date End Date Rosibel Jerez MD [address] [place] [address] PCP - General Physician Electrical Assembly Technician 12/14/23 Teresa Quintanilla MD [address] [place], [place] [id number] Referring Physician Family Medicine 03/02/23
--- OUTSIDE RECORDS SUMMARY | 2025-04-05 07:42 | XMS_ITS | Encounter Summary ---
Author Organization [facility] Address [address] [place] [address] Care Team Providers Care Trauma Director Name Role Phone Teresa Quintanilla DIRECTOR OF CASINO Primary Care Provider + Amara Palacio DIRECTOR OF CASINO Unavailable [phone] Rosibel Jerez-C Primary Care Provider + Nitza Valdovinos [facility] Unavailable [phone] Mar Ponce-C Unavailable [phone] Source Comments In the event this information is protected by the Federal Confidentiality of Alcohol and Drug AbusePatient Records regulations: The Federal rules restrict any use of the information to criminally investigate or prosecute any alcohol or drug abuse patient.[facility] Encounter Details Date Type Department Care Team (Late st Contact Info) Description 01/04/2023 Patient Msg Neurology [address] [place] [address] Provider, Ccf from Dr Guallpa office Social History Tobacco Use Types Packs/Day Years [...] N ot on file 07/31/2022 Data from: https://www.neighborhoodatlas.medicine.[facility]/. Last address used for calculation [address] [...] 06/06/2025 10:30 AM EST Office Visit Gastroenterology [address] [place] [address] [place] [address] [place] [address] Nausea and vomiting, unspecified vomiting type [R11.2] documented as of this encounter Visit Diagnoses Not on filedocumented in this encounter Care Teams Trauma Director Relationship Specialty Start Date End Date Teresa Quintanilla CNP [address] [place] [address] PCP - General 12/18/18 04/08/23 Rosibel Jerez PA-C [address] [place] [address] PCP - General Internal Medicine 04/09/23 Amara Palacio CNP [address] [place] [address] Referring Family Medicine 02/20/22 Nitza Valdovinos LSW Net Application Architect Union Laborer 04/15/23 04/20/23 Mar Ponce PA-C [facility] [place], [place] [id number] Finance Business Partner Internal Medicine 06/12/24 08/14/24 documented as of this encounter
--- OUTSIDE RECORDS SUMMARY | 2025-04-05 07:42 | XMS_ITS | Encounter Summary ---
Author Organization [facility] Address [facility] [place] [address] Care Team Providers Care Edge Polisher Name Role Phone Amara Palacio INCOME TAX INVESTIGATOR Unavailable [phone] Rosibel Jerez-C Primary Care Provider + Mar PonceC Unavailable [phone] Source Comments In the event this information is protected by the Federal Confidentiality of Alcohol and Drug AbusePatient Records regulations: The Federal rules restrict any use of the information to criminally investigate or prosecute any alcohol or drug abuse patient.[facility] Encounter Details Date Type Department Care Team (Late st Contact Info) Description 11/30/2023 Patient Msg Spine Surgery [facility] [address] [place] [address] Michell Mcconnell APRN.INCOME TAX INVESTIGATOR [address] Mail Code [address] [place] [id number] Gabapentin Social History Tobacco Use Types Packs/Day Years Used Date Smoking Tobacco: Former Cigarettes 0.5 20 0 07/12/2003 - 07/12/2023 Smokeless Tobacco: Never Passive Exposure Comments:tx pe Alcohol Use Standard Drinks/Week Comments Yes 2 (1 standard drink = 0.6 oz pur e alcohol) 7-8 drinks per month [facility] Utilities Answer Date Recorded In the past 12 months has e Area 1 Security, gas, oil, or water [employer]) threatened to shut off services in your [...] often do you attend chur ch or zoroastrianism services? 1 to 4 times per year 04/09/2023 Do you belong to any clubs o r organizations such as evangelical groups, unions, fraternal or athletic groups, or [...] Answer Date Recorded PHQ-2 score 4 10/31/2023 [facility] of Occupat ional Health - Occupational Stress [...] place to sleep or slept in a longterm (including now)? No 04/09/2023 Area Deprivation Index Answer Date Darrius rded National Score (1-100), lower number is lower ri sk 87 01/15/2023 State Score (1-10), lower number is lower risk 8 01/15/2023 Data from: https://www.neighborhoodatlas.medicine.[facility].edu/. Last address used for calculation [...] 06/06/2025 10:30 AM EST Office Visit Gastroenterology [address] [place] [address] [place] [address] [place] [address] Nausea and vomiting, unspecified vomiting type [R11.2] documented as of this encounter Visit Diagnoses Not on filedocumented in this encounter Care Teams Edge Polisher Relationship Specialty Start Date End Date Rosibel Jerez PA-C [address] [place] [address] PCP - General Internal Medicine 04/09/23 Amara Palacio, INCOME TAX INVESTIGATOR [place] [address] Referring Family Medicine 02/20/22 Mar Ponce PA-C [address] [place] [address] [id number] Banquet Kitchen Supervisor Internal Medicine 06/12/24 08/14/24 documented as of this encounter
--- OUTSIDE RECORDS SUMMARY | 2025-04-05 07:43 | XMS_ITS | Clinical Summary ---
Author Organization [facility] Address [id number] [address] [place] [address] Care Team Providers Care Cloth Bolt Bander Name Role Phone Unavailable Primary Care Provider Unavailabl e Social History Tobacco Use Types Packs/Day Years Used Date Smoking Tobacco: Never Assessed Childcare Answer Date Recorded Childcare Unknown 12/12/2018 Employment Answer Date Recorded Employment Unknown 12/12/2018 Comments Unknown Sex and Gender Information Value Date Recorded Sex Assigned at Not on file Legal Sex Female 12:40 PM EDT Gender Identity Not on file Sexual Orientation Not on file Plan of Treatment Not on file Medical Devices Not on file
--- OUTSIDE RECORDS SUMMARY | 2025-04-05 07:43 | XMS_ITS | Encounter Summary ---
Author Organization [facility] Address [address] [place] [address] Care Team Providers Care Entertainment Director Name Role Phone Amara Palacio CNP Unavailable [phone] Rosibel JerezC Primary Care Provider + Mar Ponce PA-C Unavailable Source Comments In the event this information is protected by the Federal Confidentiality of Alcohol and Drug AbusePatient Records regulations: The Federal rules restrict any use of the information to criminally investigate or prosecute any alcohol or drug abuse patient.[facility] Encounter Details Date Type Department Care Team (Late st Contact Info) Description 08/23/2023 Patient Msg Spine [place] [address] [place] [address] Provider, Ccf ACTION REQUIRED: Skin Preparation before your surgery Social History Tobacco Use Types Packs/Day Years Used Date Smoking Tobacco: Former Cigarettes 0.5 20 0 07/12/2003 - 07/12/2023 Smokeless Tobacco: Never Passive Exposure Comments:va pe Alcohol Use Standard Drinks/Week Comments Yes 2 (1 standard drink = 0.6 oz pur e alcohol) 7-8 drinks per month [facility] Utilities Answer Date Recorded In the [...] often do you attend chur ch or sikhism services? 1 to 4 times per year 04/09/2023 Do you belong to any clubs o r organizations such as restorationist groups, unions, fraternal or athletic groups, or [...] 04/09/2023 PHQ-2 Answer Date Recorded PHQ-2 score 2 08/10/2023 [facility] of Occupat ional Health - Occupational Stress [...] place to sleep or slept in a usp (including now)? No 04/09/2023 Area Deprivation Index Answer Date Darrius rded National Score (1-100), lower number is lower ri sk 87 01/15/2023 State Score (1-10), lower number is lower risk 8 01/15/2023 Data from: https://www.neighborhoodatlas.medicine.[facility].edu/. Last address used for calculation [address] [...] 06/06/2025 10:30 AM EST Office Visit Gastroenterology [address] [place] [address] [place] [address] [place] [address] Nausea and vomiting, unspecified vomiting type [R11.2] documented as of this encounter Visit Diagnoses Not on filedocumented in this encounter Care Teams Entertainment Director Relationship Specialty Start Date End Date Rosibel Jerez PA-C [address] [place] [address] PCP - General Internal Medicine 04/09/23 Amara Palacio CNP [address] [place] [address] [place] [address] Referring Family Medicine 02/20/22 Mar Ponce PA-C [address] [place], [place] [id number] Weapons Designer Internal Medicine 06/12/24 08/14/24 documented as of this encounter
--- OUTSIDE RECORDS SUMMARY | 2025-04-05 07:43 | XMS_ITS | Encounter Summary ---
Author Organization [facility] Address [address] [place] [address] Care Team Providers Care Carbon Capture Power Plant Manager Name Role Phone Amara Palacio CNP Unavailable [phone] Rosibel Jerez-C Primary Care Provider + Mar Ponce PA-C Unavailable [phone] Source Comments In the event this information is protected by the Federal Confidentiality of Alcohol and Drug AbusePatient Records regulations: The Federal rules restrict any use of the information to criminally investigate or prosecute any alcohol or drug abuse patient.[facility] Encounter Details Date Type Department Care Team (Late st Contact Info) Description 07/06/2023 Patient Msg Neurology [address] [place] [phone] Provider, Bela Your Virtual Pre-Op Appointment Has Been Scheduled Social History Tobacco Use Types Packs/Day Years Used Date Smoking Tobacco: Every Day Cigarettes 0.5 20 Smokeless Tobacco: Never Passive Exposure Comments:ks pe Alcohol Use Standard Drinks/Week Comments Yes 2 (1 standard drink = 0.6 oz pur e alcohol) 7-8 drinks per month [facility] Utilities Answer Date Recorded In [...] often do you attend chur ch or synagogue services? 1 to 4 times per year 04/09/2023 Do you belong to any clubs o r organizations such as orthodox groups, unions, fraternal or athletic groups, [...] Date Recorded PHQ-2 score 3 07/02/2023 [facility] [place] of Occupat ional Health - Occupational Stress [...] place to sleep or slept in a jail (including now)? No 04/09/2023 Area Deprivation Index Answer Date Darrius rded National Score (1-100), lower number is lower ri sk 87 01/15/2023 State Score (1-10), lower number is lower risk 8 01/15/2023 Data from: https://www.neighborhoodatlas.medicine.[facility].edu/. Last address used for calculation [address] [...] 06/06/2025 10:30 AM EST Office Visit Gastroenterology [address] [place] [address] [place] [address] [place] [address] Nausea and vomiting, unspecified vomiting type [R11.2] documented as of this encounter Visit Diagnoses Not on filedocumented in this encounter Care Teams Carbon Capture Power Plant Manager Relationship Specialty Start Date End Date Rosibel Jerez PA-C [address] [place] [address] PCP - General Internal Medicine 04/09/23 Amara Palacio CNP [address] [place] [address] Referring Family Medicine 02/20/22 Mar Ponce PA-C [address] [place] [address] Centrifugal Chiller Technician Internal Medicine 06/12/24 08/14/24 documented as of this encounter
--- OUTSIDE RECORDS SUMMARY | 2025-04-05 07:43 | XMS_ITS | Encounter Summary ---
Author Organization [facility] Address [address] [place] [address] Care Team Providers Care Seat Joiner Chainstitch Name Role Phone Amara Palacio CNP Unavailable [phone] Rosibel Jerez-C Primary Care Provider + Mar PonceC Unavailable [phone] Source Comments In the event this information is protected by the Federal Confidentiality of Alcohol and Drug AbusePatient Records regulations: The Federal rules restrict any use of the information to criminally investigate or prosecute any alcohol or drug abuse patient.[facility] Encounter Details Date Type Department Care Team (Late st Contact Info) Description 07/15/2023 Patient Msg Pre Anesthesia [address] [place] [address] Provider, Ccf Pacc Scheduling Social History Tobacco Use Types Packs/Day Years Used Date Smoking Tobacco: Every Day Cigarettes 0.5 20 Smokeless Tobacco: Never Passive Exposure Comments:va pe Alcohol Use Standard Drinks/Week Comments Yes 2 (1 standard drink = 0.6 oz pur e alcohol) 7-8 drinks per month [facility] Utilities Answer Date Recorded In [...] often do you attend chur ch or rastafari services? 1 to 4 times per year 04/09/2023 Do you belong to any clubs o r organizations such as anabaptist groups, unions, fraternal or athletic groups, or [...] Answer Date Recorded PHQ-2 score 3 07/02/2023 [facility] of Occupat ional Health - Occupational Stress [...] risk 8 01/15/2023 Data from: https://www.neighborhoodatlas.medicine.[facility].edu/. Last address used for calculation [...] 06/06/2025 10:30 AM EST Office Visit Gastroenterology [address] [facility] [place] [address] [place] [address] [place] [address] Nausea and vomiting, unspecified vomiting type [R11.2] documented as of this encounter Visit Diagnoses Not on filedocumented in this encounter Care Teams Seat Joiner Chainstitch Relationship Specialty Start Date End Date Rosibel Jerez PA-C [address] [place] [address] PCP - General Internal Medicine 04/09/23 Amara Palacio CNP [address] [place] [address] Referring Family Medicine 02/20/22 Mar Ponce PA-C [address] [place] [address] First Sampler Internal Medicine 06/12/24 08/14/24 documented as of this encounter
--- OUTSIDE RECORDS SUMMARY | 2025-04-05 07:43 | XMS_ITS | Encounter Summary ---
Author Organization [facility] Address [address] [place] [address] Care Team Providers Care Picking Supervisor Name Role Phone Amara Palacio AERONAUTICAL ENGINEERING TECHNOLOGIST Unavailable [phone] Rosibel Jerez PA-C Primary Care Provider + Mar PonceC Unavailable [phone] Source Comments In the event this information is protected by the Federal Confidentiality of Alcohol and Drug AbusePatient Records regulations: The Federal rules restrict any use of the information to criminally investigate or prosecute any alcohol or drug abuse patient.[facility] Encounter Details Date Type Department Care Team (Late st Contact Info) Description 10/07/2023 Patient Msg Cardiology [address] [facility] [place], [place] [phone] Provider, Ccf 01/31/2024 CARDIOLOGY APPOINTMENT CANCELLED, RESCHEDULED TO 02/08/2024 Social History Tobacco Use Types Packs/Day Years Used Date Smoking Tobacco: Former Cigarettes 0.5 20 0 07/12/2003 - 07/12/2023 Smokeless Tobacco: Never Passive Exposure Comments:va pe Alcohol Use Standard Drinks/Week Comments Yes 2 (1 standard drink = 0.6 oz pur e alcohol) 7-8 drinks per month [facility] Utilities Answer Date Recorded In the [...] often do you attend chur ch or yarsanism services? 1 to 4 times per year 04/09/2023 Do you belong to any clubs o r organizations such as jewish groups, unions, fraternal or athletic groups, or [...] PHQ-2 Answer Date Recorded PHQ-2 score 4 09/09/2023 [facility] [place] of Occupat ional Health - Occupational Stress [...] place to sleep or slept in a long-term (including now)? No 04/09/2023 Area Deprivation Index Answer Date Darrius rded National Score (1-100), lower number is lower ri sk 87 01/15/2023 State Score (1-10), lower number is lower risk 8 01/15/2023 Data from: https://www.neighborhoodatlas.medicine.[facility].edu/. Last address used for calculation [address] [...] 06/06/2025 10:30 AM EST Office Visit Gastroenterology [address] [place] [address] [place] [address] [place] [address] Nausea and vomiting, unspecified vomiting type [R11.2] documented as of this encounter Visit Diagnoses Not on filedocumented in this encounter Care Teams Picking Supervisor Relationship Specialty Start Date End Date Rosibel Jerez PA-C [address] [place] [address] PCP - General Internal Medicine 04/09/23 Amara Palacio CNP [address] [place] [address] [place] [address] Referring Family Medicine 02/20/22 Mar Ponce PA-C [facility] [place] [address] Photograph Printer Internal Medicine 06/12/24 08/14/24 documented as of this encounter
--- OUTSIDE RECORDS SUMMARY | 2025-04-05 07:43 | XMS_ITS | Clinical Summary ---
Author Organization [facility] Address [address] [place], [place] [id number] Care Team Providers Care Thermodynamics Engineer Name Role Phone Amara Palacio FINANCE CLERK Unavailable [phone] Rosibel Jerez PA-C Primary Care Provider + Allergies Active Allergy Reactions Criticality Noted Date Comments Cariprazine Other: See Comments,Unknown 022 Metoclopramide Other: See Comments 08/10/2013 Penicillins Hives 12/18/2018 Metoclopramide Hcl Mental Status Change 010 Medications guaiFENesin (MUCINEX) 600 mg 12 hr tablet Take 1,200 mg by mouth twice daily as needed for cold/allergy symptoms. Active dicyclomine (BENTYL) 10 mg capsule Take 10 mg by mouth as needed. Active albuterol HFA (PROVENTIL HFA) 90 mcg/actuation inhaler Inhale 1-2 Puffs as instructed every 4 hours as needed for wheezing/shortnes s of breath. 18 g 023 Active cyanocobalamin (VITAMIN B-12) 1,000 mcg tab Take 1 tablet by mouth every afternoon. 024 Active propranolol ER (INDERAL LA) 80 mg 24 hr capsule TAKE 1 CAPSULE BY MOUTH EVERY DAY 90 capsule 3 024 Active SUMAtriptan (IMITREX) 50 mg tablet Take 1 tablet (50 mg) by mouth as needed for migraine headache (see administration instructions). at onset of headache. May repeat after 2 hours. 27 tablet 1 025 Active REXULTI 3 mg tablet Take 2 mg by mouth once daily. Active buPROPion XL (WELLBUTRIN XL) 300 mg 24 hr tablet Take 300 mg by mouth once daily. Active cloNIDine HCl (CATAPRES) 0.1 mg tablet Take 0.1 mg by mouth two times a day as needed. For Anxiety Active eszopiclone (LUNESTA) 2 mg Take 2 mg by mouth daily at bedtime. Active ergocalciferol 50,000 unit capsule (VITAMIN D2, DRISDOL)Indica tions:Vitamin D deficiency Take 1 capsule by mouth one time a week. 12 capsule 3 025 Active tiZANidine (ZANAFLEX) 4 mg tabletIndicati ons:Neck pain,Upper back pain,TMJ disorder, unspecified Take 1 tablet by mouth daily at bedtime. 90 tablet 1 025 Active celecoxib (CELEBREX) 200 mg capsule Take 1 capsule by mouth once daily. 90 capsule 3 025 Active cetirizine (ZYRTEC) 10 mg tablet Take 1 tablet by mouth daily at bedtime. 90 tablet 1 025 Active vit-iron fumarate-fa ( MULTIVITAMINS) 28 mg iron- 800 mcg tab Take 1 tablet by mouth once daily. 90 tablet 3 025 Active olanzapine-bridget idorphan (LYBALVI) 5-10 mg tablet Take 1 tablet by mouth once daily. 025 Active buPROPion XL (WELLBUTRIN XL) 150 mg 24 hr tablet Take 1 tablet by mouth once daily. 025 Active lisdexamfetami ne (VYVANSE) 50 mg capsuleIndicat ions:Attention deficit disorder, unspecified type Take 1 capsule by mouth once daily for 30 days. 025 Active gabapentin (NEURONTIN) 100 mg capsuleIndicat ions:Upper back pain,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),Neck pain Take 2 capsules by mouth three times a day for 180 days. 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 90 tablet [address] (PROTONIX) 40 mg tablet Take 40 mg by mouth once daily. 022 2024 Discontinued Active Problems Problem Noted Date Diagnosed Date Mixed hyperlipidemia 12/12/2024 Vitamin D deficiency 10/05/2024 Upper back pain 10/05/2024 Stenosis of cervical spine with myelopathy 08/24 Status post cervical spinal arthrodesis 08/24/19 24 S/P cervical spinal fusion 08/24/2023 History of tobacco use 08/03/2023 Assessment & Plan (08/03/2023 12:02 PM EST): Assessment:quit 07/12/2023 10 pack year history PTSD (post-traumatic stress disorder) 04/09/2023 Bipolar 1 disorder 04/09/2023 Overview (04/09/2023): Followed by psychiatry Palpitations 04/09/2023 Overview (04/09/2023): Evaluated by cardiology Assessment & Plan (08/03/2023 12:07 PM EST): Assessment: evaluated by cardiology, wore Zio patch Stable on Propranolol Heart rate in office: 68bpm RBBB 04/09/2023 TMJ disorder, unspecified 04/09/2023 Neck pain 04/09/2023 Other irritable bowel syndrome 04/09/2023 Overview (04/09/2023): Previously had EGD and Colonoscopy History of peptic ulcer 04/09/2023 Assessment & Plan (08/03/2023 12:01 PM EST): Assessment: on Pantoprazole History of nephrolithiasis 04/09/2023 Assessment & Plan (08/03/2023 12:01 PM EST): Assessment: as teenager Abnormal Pap smear of cervix 04/09/2023 Cerebellar tonsillar ectopia 04/09/2023 ANA (generalized anxiety disorder) 04/09/2023 Assessment & Plan (08/03/2023 12:01 PM EST): Assessment: managed with Rx MDD (major depressive disorder), recurrent episo de, mild 04/09/2023 Assessment & Plan (08/03/2023 12:01 PM EST): Assessment: managed with Rx Migraines 01/22/2004 Assessment & Plan (08/03/2023 12:00 PM EST): Assessment: managed with Sumatriptan as needed Headache(784.0) 01/22/2004 Resolved Problems Problem Noted Date Diagnosed Date Resolved Date Migraine 01/25/2003 04/09/2023 Encounters Date Type Department Care Team Description 03/09/2025 Get Medical Advice Internal Medicine [facility] [address] [place] [address] Rosibel Jerez PA-C Medication 03/01/2025 11:00 AM EDT Office Visit Internal Medicine [facility] [address] [place] [address] Rosibel Jerez PA-C Upper back pain (Primary Dx); 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); Neck pain 02/28/2025 Travel 02/27/2025 Patient Msg Internal Medicine [facility] [address] [place] [address] Rosibel Jerez PA-C Appointment Request 02/20/2025 Telephone Neurology [address] [place] [id number] Joo Cruz MD [facility] 02/19/2025 Telephone Internal [address] [address] Rosibel Jerez PA-C Received Outside Medical Records 01/30/2025 Results Follow-Up Internal Medicine [address] [address] Rosibel Jerez PA-C 01/29/2025 9:45 AM EDT Procedure ulmonology [address], [address] [place] [address] Spirometry 01/29/2025 9:15 AM EDT Procedure ulmonology [address], [address] [place] [address] Spirometry 01/29/2025 Results Follow-Up Internal [address] [address] Rosibel Jerez PA-C 01/26/2025 9:20 AM EDT Office Visit Internal [address] [address] Rosibel Jerez PA-C Nausea and vomiting, unspecified vomiting type (Primary Dx); Fatty liver; Forgetfulness 01/26/2025 Telephone Internal Medicine [address] [address] Rosibel Jerez PA-C Request Outside Medical Records ([facility]) 01/26/2025 Get Medical Advice Internal [address] [address] Rosibel Jerez PA-C Pain management 01/26/2025 Travel 01/18/2025 Telephone Cardiology [address] [facility] [place], [place] [id number] Franchesca Low MD Insurance Authorization 01/18/2025 Refill Internal Medicine [facility] [address] [place] [address] Michell Mcconnell APRN.FINANCE CLERK Refill Request 01/18/2025 Refill Internal Medicine [facility] [address] [place] [address] Rosibel Jerez PA-C Refill Request 01/18/2025 Travel 01/18/2025 Patient Msg Internal Medicine [facility] [address] [place] [address] Rosibel Jerez PA-C Appointment Request from Last 3 Months Immunizations Immunization Administration Dates Next Due Haemophilus influenzae b (Hi b) vaccine, unspecified formulation 04/24/1987 diphtheria tetanus pertussis (DTP) vaccine 02/07/1990,01/22/1987,1985,1985,1985 hepatitis B (HepB) vaccine (ENGERIX-B, RECOMBIVAX HB) 06/17/2023,03/16/2023,02/12/2023 influenza (ccIIV4) vaccine, age 6+ mo, quadrivalent, PF (FLUCELVAX) 02/14/2023 measles mumps rubella (MMR) vaccine (M-M-R II, PRIORIX) 02/14/1997,06/18/1986 poliovirus (OPV) vaccine, tr ivalent, live, oral (ORIMUNE) 11/07/1989,11/19/1986,1985,1984 tetanus diphtheria pertussis (Tdap) vaccine, age 7+ yr (ADACEL, BOOSTRIX) 02/12/2023,02/03/2011 Family History Medical History Relation Comments Drug abuse Brother Migraines Father Colon Cancer Maternal Grandmother Colon Cancer Maternal great-grandfather Alcohol/Drug Mother Skin Cancer Mother Ischemic Heart Disease Paternal Grandfather Lung Cancer Paternal Grandfather Ischemic Heart Disease Paternal Grandmother Relation Status Comments Brother Father Maternal Grandmother Maternal great-grandfather Alive Mother Paternal Grandfather Paternal Grandmother Social History Tobacco Use Types Packs/Day Years Used Date Smoking Tobacco: Former Cigarettes 0.5 20 0 07/12/2003 - 07/12/2023 Smokeless Tobacco: Never Tobacco Cessation:Counseling Given: Not Answered Passive Exposure Comments:vape Alcohol Use Standard Drinks/Week Comments Yes 2 (1 standard drink = 0.6 oz pur e alcohol) 7-8 drinks per month [facility] Utilities Answer Date Recorded In the [...] often do you attend chur ch or sikh services? 1 to 4 times per year 10/05/2024 Do you belong to any clubs o r organizations such as rastafari groups, unions, fraternal or athletic groups, or [...] Answer Date Recorded PHQ-2 score 5 02/28/2025 [facility] Dingess of Occupat ional Health - Occupational Stress [...] is lower risk 8 01/15/2023 Data from: https://www.neighborhoodatlas.medicine.[facility].edu/. Last address used for calculation [address] [...] file Not on file Not on file Last Filed Vital Signs Vital Sign Reading Time Taken Comments Blood Pressure 108/74 03/01/2025 10:51 AM EDT Pulse 56 03/01/2025 10:51 AM EDT Temperature 36.4 C (97.6 F) 03/01/2025 10:51 AM EDT Respiratory Rate 18 08/25/2023 11:5 9 AM EST Oxygen Saturation 97% 03/01/2025 10: 51 AM EDT Inhaled Oxygen Concentration - - Weight 81.6 kg (179 lb 14.3 oz) 025 10:51 AM EDT Height 152.4 cm (5') 03/01/2025 10:51 AM EDT Body Mass Index 35.13 03/01/2025 10:51 AM EDT Plan of Treatment Upcoming Encounters Date Type Department Care Team (Late st Contact Info) Description 06/06/2025 10:30 AM EST Office Visit Gastroenterology [address] [place] [address] [place] [address] [place] [address] Nausea and vomiting, unspecified vomiting type [R11.2] Health Maintenance Due Date Last Done Comments Cervical Cancer Screening 07/03/2007 07/03/2004 HPV Vaccine (1 - 3-dose SCDM series) 02/18/2012 Influenza Vaccine (#1) 2025 02/14/2023, 2010 Mammogram Screening 12/17/2025 12/17/2024 Annual PCP Team Chronic Dise ase Visit 03/01/2026 03/01/2025 DTaP,Tdap,Td Vaccine (8 - Td or Tdap) 02/12/2033 02/12/2023, 02/03/2011, 02/07/1990, Additional history exists HIV Screening Completed 07/07/2010 Hepatitis B Vaccine Completed 06/17/2023, 03/16/2023, 02/12/2023 Hepatitis C Screening Completed 01/25/2025 Medical Devices Implanted Type Area Dog Hair Clipper Device Identifier Shelf Expiration Date Model / Serial / Lot Spacer Avs 4d 6mm Spinal Bone Plug - [id number] Implanted:Qty : 1 on 08/24/2023 by Joo Cruz MD at [facility] Graft N/A: Spine - Cervical [employer] 05/01/2028 [id number] / [id number] / [place] Plate, 1 Level, Sz 18mm Implanted:Qty : 1 on 08/24/2023 by Joo Cruz MD at [facility] Plate Pending: Spine - Cervical SHANNON [id number] / / [place] Self Starting Variable Screw Size 4mm X 12mm Implanted:Qty : 4 on 08/24/2023 by Joo Cruz MD at [facility] Screw N/A: Spine - Cervical SHANNON [id number] / / Procedures Procedure Name Priority Date/Time Associated Diagnosis Comments LUNG DIFFUSION CAPACITY (DLCO) Routine 01/29/2025 9:17 AM EDT SOB (shortness of breath) Wheezing SPIROMETRY - BASELINE AND POST DILATOR Routine 01/29/2025 9:17 AM EDT SOB (shortness of breath) Wheezing HEMOGLOBIN A1C Routine 01/26/2025 10:32 AM EDT Forgetfulness TSH W/REFLEX FT4 Routine 01/26/2025 10:3 2 AM EDT Forgetfulness FOLATE SERUM Routine 01/26/2025 10:32 AM EDT Forgetfulness METHYLMALONIC ACID Routine 01/26/2025 10 :32 AM EDT Forgetfulness VITAMIN B12 BLOOD Routine 01/26/2025 10: 32 AM EDT Forgetfulness LVEF TRANSTHORACIC ECHO Routine 01/26/20 1:40 PM EDT ECHO Routine 01/25/2025 1:40 PM EDT SOB (shortness of breath) Wheezing NT PRO BNP Routine 01/25/2025 1:07 PM EDT SOB (shortness of breath) Wheezing CREATININE BLD Routine 01/25/2025 1:07 PM EDT SOB (shortness of breath) Wheezing HEPATITIS C ANTIBODY IA WITH CONFIRMATION Routine 01/25/2025 1:07 PM EDT Special screening examination for viral disease LIPID PANEL, FASTING Routine 01/25/2025 1:07 PM EDT Dyslipidemia VITAMIN D 25 HYDROXY Routine 01/25/2025 1:07 PM EDT Vitamin D deficiency HE SCREENING W JUSTO Routine 12/17/2024 12:57 PM EDT Screening mammogram, encounter for HIV 1/2 COMBO WITH REFLEX TO DIFFERENTIATION 07/07/2010 1:44 PM EST PAP FLUID CERVICAL SCREENING 07/03/2004 from Last 3 Months or Most Recently Relevant to Health Maintenance Results * LUNG DIFFUSION CAPACITY (DLCO) (01/29/2025 9:17 AM EDT) 01/29/2025 9:17 AM EDT Narrative PULMONARY FUNCTION LAB - 01/29/2025 4:56 PM EDT [facility] Office [place] [address] Test Date: 2025-01-29 Pat Name: LADI YUN Department: Room: Gender: Female 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 Last patient height taken 01/29/2025 Franchesca Low MD SCHEDULED PROCEDURES Final Re sult PULMONARY FUNCTION LAB [address] [facility] [place] [address] * SPIROMETRY - BASELINE AND POST DILATOR (01/29/2025 9:17 AM EDT) FVC PRE (L) 3.21 L PULMONAR Y FUNCTION LAB FVC POST (L) 3.23 L PULMONA RY FUNCTION LAB FVC PREDICTED (L) 2.96 L PULMONARY FUNCTION LAB FVC LLN (L) 2.26 L PULMONAR Y FUNCTION LAB FVC ULN (L) 3.68 L PULMONAR Y FUNCTION LAB FEV1 PRE (L) 2.67 L PULMONA RY FUNCTION LAB FEV1_POST (L) 2.71 L PULMON JIMMY FUNCTION LAB FEV1 PREDICTED (L) 2.50 L PULMONARY FUNCTION LAB FEV1 LLN (L) 1.89 L PULMONA RY FUNCTION LAB FEV1 ULN (L) 3.07 L PULMONA RY FUNCTION LAB FEV1/FVC PRE (%) 83 % PULMONARY FUNCTION LAB FEV1/FVC POST (%) 84 % PULMONARY FUNCTION LAB FEV1/FVC PREDICTED (%) 84 % PULMONARY FUNCTION LAB FEV1/FVC LLN (%) 73 % PULMONARY FUNCTION LAB FEF25% PRE (L/S) 5.77 L/S PULMONARY FUNCTION LAB FEF25% POST (L/S) 6.65 L/S PULMONARY FUNCTION LAB FEF75% PRE (L/S0 1.21 L/S PULMONARY FUNCTION LAB FEF75% POST (L/S) 1.24 L/S PULMONARY FUNCTION LAB FEF75% PREDICTED (L/S) 1.09 L/S PULMONARY FUNCTION LAB FEF75% LLN (L/S) 0.52 L/S PULMONARY FUNCTION LAB FEF75% ULN (L/S) 2.06 L/S PULMONARY FUNCTION LAB LLA90-44% PRE (L/S) 3.28 L/S PULMONARY FUNCTION LAB DMZ80-41% POST (L/S) 3.43 L/S PULMONARY FUNCTION LAB MGX39-24% PREDICTED (L/S) 2.94 L/S PULMONARY FUNCTION LAB ZCS95-66% LLN (L/S) 1.79 L/S PULMONARY FUNCTION LAB PEF PRE (L/S) 6.07 L/S PULMON JIMMY FUNCTION LAB PEF POST (L/S) 6.66 L/S PULMO NARY FUNCTION LAB PEF LLN (L/S) 4.91 L/S PULMON JIMMY FUNCTION LAB PEF ULN (L/S) 7.96 L/S PULMON JIMMY FUNCTION LAB SVC PREDICTED (L) 2.96 L/S PULMONARY FUNCTION LAB SVC LLN (L) 2.26 L/S PULMONAR Y FUNCTION LAB SVC ULN (L) 3.68 L/S PULMONAR Y FUNCTION LAB IC PREDICTED (L) 1.97 L/S PULMONARY FUNCTION LAB ERV PREDICTED (L) 0.99 L/S PULMONARY FUNCTION LAB DLCO (ml/min/mmHg) 16.18 ml/min/mmH g PULMONARY FUNCTION LAB DLCO PREDICTED (ml/min/mmHg) 19.57 ml/min/mmH g PULMONARY FUNCTION LAB DLCO LLN (ml/min/mmHg) 15.49 ml/min/mmH g PULMONARY FUNCTION LAB DLCO ULN (ml/min/mmHg) 24.42 ml/min/mmH g PULMONARY FUNCTION LAB FET PRE (S) 5.53 S PULMONAR Y FUNCTION LAB FET POST (S) 6.12 S PULMONA RY FUNCTION LAB VA (L) 4.30 L PULMONARY FUNCTION LAB VA PREDICTED (L) 4.30 L PULMONARY FUNCTION LAB DLCO/VA (ml/min/mmHg/L) 0.04 ml/min/mmH g/L PULMONARY FUNCTION LAB DLCO/VA PREDICTED (ml/min/mmHg/L) 0.05 ml/min/mmH g/L PULMONARY FUNCTION LAB DLCOcor (ml/min/mmHg) 16.01 ml/min/mmH g PULMONARY FUNCTION LAB DLCOcor PREDICTED (ml/min/mmHg) 19.57 ml/min/mmH g PULMONARY FUNCTION LAB DLCO/VAcor (ml/min/mmHg/L) 0.04 ml/min/mmH g/L PULMONARY FUNCTION LAB 01/29/2025 9:17 AM EDT Narrative PULMONARY FUNCTION LAB - 01/29/2025 4:56 PM EDT [place] [address] Test Date: 2025-01-29 Pat Name: LADI YUN Department: Room: 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 Last patient height taken 01/29/2025 Franchesca Low MD SCHEDULED PROCEDURES Final Re sult Performing Organization Address [facility] Co de Phone Number PULMONARY FUNCTION LAB [address] [facility] [place] [address] * TSH W/REFLEX FT4 (01/26/2025 10:32 AM EDT) Pathologist [facility] TSH 1.080 0.270 - 4.200 mIU/L 01/27/2025 12:27 AM EDT [facility] Comment: If the patient is , TSH reference range varies by gestational period: First Trimester (weeks 9-12): 0.180-2.990 mIU/L Second Trimester: 0.110-3.980 mIU/L Third Trimester: 0.480-4.710 mIU/L Oziel Chan et al. A Practical Approach for the Verifications and Determination of Site- and Trimester-Specific Reference Intervals for Thyroid Function tests in . Thyroid, 2019:29:3:412-420. Soren E, et al. 2017 Guidelines of the [place] Thyroid Association for the Diagnosis and Management of Thyroid Disease during and the . Thyroid, 2017:27:3:315-389. Blood BLOOD SPECIMEN / Unknown Venipuncture / Unknown 01/26/2025 10:32 AM EDT 01/26/2025 10:33 AM EDT us Rosibel Jerez PA-C LABORATORY Final Re sult Performing Organization Address [facility]/ZIP Co de Phone Number [facility] [address] [facility] [address] [place] [address], [place] * VITAMIN B12 (01/26/2025 10:32 AM EDT) Vitamin B12 614 232 - 1,245 pg/mL 01/27/2025 12:27 AM EDT [facility] Blood BLOOD SPECIMEN / Unknown Venipuncture / Unknown 01/26/2025 10:32 AM EDT 01/26/2025 10:33 AM EDT [facility] Rocio Solitario LIZ LABORATORY Final Re sult Performing Organization Address [facility] de Phone Number [facility] [address] [address], [place] * METHYLMALONIC ACID (01/26/2025 10:32 AM EDT) Pathologist [facility] Methylmalonic Acid 0.10 <=0.40 umol/L 01/31/2025 8:01 AM EDT [facility] Comment:This test was devcaroleo ped, and its performance characteristics determined by the [facility] Department of Pathology and Laboratory Medicine. It has not been cleared or approved by the FDA. The [facility] Department of Pathology and Laboratory Medicine is regulated under CLIA as qualified to perform high- complexity testing. This test is used for clinical purposes. It should not be regarded as investigational or for research. Blood BLOOD SPECIMEN / Unknown Venipuncture / Unknown 01/26/2025 10:32 AM EDT 01/26/2025 10:33 AM EDT Rosibel Jerez PA-C LABORATORY Final Re sult Performing Organization Address [facility] de Phone Number [facility] [address] [address], [place] * HEMOGLOBIN A1C (01/26/2025 10:32 AM EDT) Hemoglobin A1C 5.2 4.3 - 5.6 % 01/26/2025 7:41 PM EDT [facility] Comment:[place] Diabetes As sociation guidelines indicate that patients with HgbA1c in the range 5.7-6.4% are at increased risk for development of diabetes, and intervention by lifestyle modification may be beneficial. HgbA1c greater or equal to 6.5% is considered diagnostic of diabetes. Estimated Average Glucose 103 mg/dL 01/26/2025 7:41 PM EDT [facility] Comment:eAG: (Estimated aver age glucose) is a calculated value from HgbA1c and is chemical sales representative of the average blood glucose level in the last 2-3 month period. Blood BLOOD SPECIMEN / Unknown Venipuncture / Unknown 01/26/2025 10:32 AM EDT 01/26/2025 10:33 AM EDT Rosibelsarbjit Jerez PA-C LABORATORY Final Re sult Performing Organization Address [facility]/ZIP Co de Phone Number [facility] [address] [facility] [place] [id number], [place] * (ABNORMAL) FOLATE, SERUM (01/26/2025 10:32 AM EDT) Folate 3.8(L) >4.7 ng/mL 01/27/2025 12:27 AM EDT [facility] Blood BLOOD SPECIMEN / Unknown Venipuncture / Unknown 01/26/2025 10:32 AM EDT 01/26/2025 10:33 AM EDT Rosibelsarbjit eJrez PA-C LABORATORY Final Re sult Performing Organization Address [facility] Co de Phone Number [facility] [address] [place] [id number], [place] * ECHO (01/25/2025 1:40 PM EDT) 01/25/2025 1:40 PM EDT [facility] - 01/25/2025 3:40 PM EDT CONCLUSIONS: - Technically difficult exam due to [...] * * * Final * * * [facility] - 01/25/2025 3:40 PM EDT Echocardiography Report: Transthoracic Echo [facility] Date of service: 01/25/2025 1:40:41 PM CLEANER Ordering physician: FRANCHESCA LOW Exam indication: Shortness of Breath Technologist: Tuna Lorenzana Interpreting physician: Franchesca Low MD PATIENT: Name: MS. LADI YUN : 1985 Age: 39 years Gender: F [...] PERICARDIUM There is an epicardial fat pad. Franchesca Low MD ECHO Final Result Performing Organization Address [facility] Co de Phone Number [facility] [address] [place] [address] * LVEF TRANSTHORACIC ECHO (01/25/2025 1:40 PM EDT) LV Ejection Fraction 55 % [facility] Comment: (2D biplane) EF > 54 An LV Ejection Fraction of > 50% is normal 01/25/2025 1:40 PM EDT Franchesca Low MD LVEF RESULTS Final Result Performing Organization Address [facility] Co de Phone Number [facility] [address] [place] [address] * NT PRO BNP (01/25/2025 1:07 PM EDT) NT Pro BNP <36 <125 pg/mL 01/26/2025 8:52 AM EDT [facility] Blood BLOOD SPECIMEN / Unknown Venipuncture / Unknown 01/25/2025 1:07 PM EDT 01/25/2025 1:08 PM EDT Franchesca Low MD LABORATORY Final Result [facility] [address] [place] [address], [place] * VITAMIN D 25 HYDROXY (01/25/2025 1:07 PM EDT) Vitamin D 25 Hydroxy 68.4 31.0 - 80.0 ng/mL 01/26/2025 10:52 AM EDT [facility] Blood BLOOD SPECIMEN / Unknown Venipuncture / Unknown 01/25/2025 1:07 PM EDT 01/25/2025 1:08 PM EDT Rosibel Jerez PA-C LABORATORY Final Re sult [facility] [address] [place] [address], [place] * (ABNORMAL) LIPID PANEL, FASTING (01/25/2025 1:07 PM EDT) Cholesterol, Total 257(H) <200 mg/dL 01/26/2025 8:52 AM EDT [facility] Comment: <200 mg/dL, Desirable 200-239 mg/dL, Borderline high >239 mg/dL, High Triglyceride 206(H) <150 mg/dL 01/26/2025 8:52 AM EDT [facility] Comment: <150 mg/dL, Normal 150-199 mg/dL, Borderline high 200-499 mg/dL, High >499 mg/dL, Very high HDL Cholesterol 54 >39 mg/dL 8:52 AM EDT [facility] Comment: 40-59 mg/dL, Acceptable >59 mg/dL, High: Negative risk factor for coronary heart disease <40 mg/dL, Low: Positive risk factor for coronary heart disease LDL Cholesterol, Calculated 165(H) <100 mg/dL 01/26/2025 8:52 AM EDT [facility] Comment: <100 mg/dL, Optimal 100-129 mg/dL, Near optimal/above optimal 130-159 mg/dL, Borderline high 160-189 mg/dL, High >189 mg/dL, Very high Secondary prevention optimal LDL Cholesterol levels are recommended to be <70 mg/dL LDL cholesterol is calculated using the Lim-NIH equation. Non HDL Cholesterol 203(H) <130 mg/dL 01/26/2025 8:52 AM EDT [facility] Comment: <130 mg/dL, Optimal 130-159 mg/dL, Near optimal/above optimal 160-189 mg/dL, Borderline high 190-219 mg/dL, High >219 mg/dL, Very high Secondary prevention optimal non HDL Cholesterol levels are recommended to be <100 mg/dL VLDL Cholesterol 40(H) <30 mg/dL 01/27/20 8:52 AM EDT [facility] TC:HDL Ratio 4.76 <5.10 01/26/2025 8:52 AM EDT [facility] LDL:HDL Ratio 3.06(H) <2.54 01/26/2025 8:52 AM EDT [facility] Comment: Reference: 1. National Cholesterol Education Program ATP III Guideline At-A-Glance Quick Desk Reference: National Heart, Lung, and Blood [place]. National Institutes of Health. 2001: NIH Publication No. 01-3305. 2. An International Atherosclerosis Society position paper: global recommendations for the management of dyslipidemia: executive summary, Atherosclerosis. 2014: 232(2):410-413. Fasting Time 16 hrs 01/26/2025 8:52 AM EDT [facility] Blood BLOOD SPECIMEN / Unknown Venipuncture / Unknown 01/25/2025 1:07 PM EDT 01/25/2025 1:08 PM EDT us Rosibel Jerez PA-C LABORATORY Final Re sult [facility] [address] [place] [address], [place] [facility] [address] [place] [address], [place] * (ABNORMAL) CREATININE BLD (01/25/2025 1:07 PM EDT) Creatinine 0.98(H) 0.58 - 0.96 mg/dL 01/26/2025 8:52 AM EDT [facility] Estimated Glomerular Filtration Rate 75 >=60 mL/min/1.7 3m 01/26/2025 8:52 AM EDT [facility] Comment:Estimated Glomerular Filtration Rate (eGFR) is calculated using the 2020 CKD-EPI creatinine equation. This equation utilizes serum creatinine, sex, and age as parameters. The creatinine assay has traceable calibration to isotope dilution- mass spectrometry. Refer to KDIGO guidelines for clinical interpretation. In patients with unstable renal function, e.g. those with acute kidney injury, the eGFR may not accurately reflect actual GFR. Blood BLOOD SPECIMEN / Unknown Venipuncture / Unknown 01/25/2025 1:07 PM EDT 01/25/2025 1:08 PM EDT Franchesca Low MD LABORATORY Final Result [facility] [address] [facility] [place] [id number], [place] * HEPATITIS C ANTIBODY IA WITH CONFIRMATION (01/25/2025 1:07 PM EDT) Hep C Antibody IA Negative Negative 01/26/2025 11:10 AM EDT [facility] Comment:The result suggests no evidence of infection with Hepatitis C virus. Should recent infection be suspected, repeat testing may be considered 4-6 weeks after this draw. Blood BLOOD SPECIMEN / Unknown Venipuncture / Unknown 01/25/2025 1:07 PM EDT 01/25/2025 1:08 PM EDT Rosibel Jerez PA-C LABORATORY Final Re sult [facility] [address] [facility] [address] [place] [address], [place] * HE SCREENING W JUSTO (12/17/2024 12:57 PM EDT) Anatomical Region Laterality Modality Breast Other 12/17/2024 12:5 7 PM EDT Impressions 12/18/2024 8:26 AM EDT IMPRESSION: There is no mammographic evidence of [...] patient has dense breast tissue. Interpreting Radiologist: Nisha Prescott M.D. Electronically signed on: 12/18/2024 Host: KODAK Transcribe Date/Time: Dec 17 2024 12:46P Dictated by : NISHA PRESCOTT MD This examination was interpreted and the report reviewed and electronically signed by: NISHA PRESCOTT MD on Dec 18 2024 8:20AM EST Narrative 12/18/2024 8:26 AM EDT * * *Final Report* * * DATE OF EXAM: Dec 17 2024 12:57PM [facility] 0582 - [facility] SCREENING W JUSTO / PROCEDURE REASON: Screening mammogram, encounter for * * * * Physician Interpretation * * * * RESULT: [facility] [address] [facility] [place] [address] #[id number] - [facility] SCREENING W JUSTO HISTORY: 39 year-old patient [...] other abnormalities are seen in either breast. Procedure Note Provider, [facility] - 12/18/2024 * * *Final Report* * * DATE OF EXAM: Dec 17 2024 12:57PM W 0582 - HE SCREENING W JUSTO / PROCEDURE REASON: Screening mammogram, encounter for * * * * Physician Interpretation * * * * RESULT: [facility] [address] [place] [address] #[id number] - [facility] SCREENING W JUSTO HISTORY: 39 year-old patient [...] other abnormalities are seen in either breast. IMPRESSION IMPRESSION: There is no mammographic evidence of [...] patient has dense breast tissue. Interpreting Radiologist: Nisha Prescott M.D. Electronically signed on: 12/18/2024 Host: KODAK Transcribe Date/Time: Dec 17 2024 12:46P Dictated by : NISHA PRESCOTT MD This examination was interpreted and the report reviewed and electronically signed by: NISHA PRESCOTT MD on Dec 18 2024 8:20AM EST us Rosibel RECINOS Final Re sult * HIV AB 1&2 SCREEN (07/07/2010 1:44 PM EST) HIV 1 & 2 Ab (EIA) Nonreactive Nonreactive [facility] 07/07/2010 1:44 PM EST 07/07/2010 1:49 PM EST us Provider [facility] LABORATORY Final Result [facility] * PAP FLUID CERVICAL SCREENING (07/03/2004) Grinder Dresser Specimen #: [id number] Physician: SUMAYA VILLEDA M.D. SPECIMEN SUBMITTED A: CERVICAL,SCREENING, FLUID FINAL DIAGNOSIS A.CERVICAL,SCREENIN G,FLUID SATISFACTORY FOR INTERPRETATION. NEGATIVE FOR INTRAEPITHELIAL LESION OR MALIGNANCY. PREDOMINANCE OF COCCOBACILLI CONSISTENT WITH SHIFT IN VAGINAL SONIA. This specimen has been analyzed by the ThinPrep Imaging System ([employer]), an automated imaging and review system, which assists the laboratory in evaluating cells on ThinPrep Pap tests. Following automated imaging, selected alas from every slide are reviewed by a ceo and founder and/or pathologist. Fred GOMEZ (ASCP) Electronic Signature CLINICAL DATA Menstrual History: Treatment History: H/O LEEP: 01/25/2004 Randal Garcia M.D. 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 Location: [facility] 07/03/2004 07/07/2004 11: 27 AM EST Narrative [facility] - 07/09/2004 4:04 PM EST Ordered by SUMAYA VILLEDA us [facility] Provider CYTOLOGY Final Result Performing Organization Address City/State/[facility] Co de Phone Number [facility] [address] [place] [address] from Last 3 Months or Most Recently Relevant to Health Maintenance Insurance [employer] Care Teams Thermodynamics Engineer Relationship Specialty Start Date End Date Rosibel Jerez PA-C [address] [place], [place] [id number] PCP - General Internal Medicine 04/09/23 Amara Palacio, FINANCE CLERK [address] [place] [address] Referring Family Medicine 02/20/22
--- OUTSIDE RECORDS SUMMARY | 2025-04-05 07:43 | XMS_ITS | Clinical Summary ---
Author Organization [facility] Address [address] [place] [address] Phone Care Team Providers Care Gum Machine Operator Name Role Phone Unavailable Primary Care Provider Unavailabl e Encounters Date Type Department Care Team Description 01/23/2025 Transcribe Orders [facility] [address] [place] [place] [address] Franchesca Grace MD Encounter for screening for cardiovascular disorders (Primary Dx); Mixed hyperlipidemia; Palpitations from Last 3 Months Social History Tobacco Use Types Packs/Day Years Used Date Smoking Tobacco: Never Assessed Comments Unknown Sex and Gender Information Value Date Recorded Sex Assigned at Not on file Legal Sex Female 11:14 AM EST Gender Identity Not on file Sexual Orientation Not on file Plan of Treatment Health Maintenance Due Date Last Done Comments HIV Screening 1985 Lipid Panel 1985 Yearly Adult Physical 1985 MMR Vaccines (1 of 1 - Stand yadira series) 1986 Hepatitis C Screening 2003 Hepatitis B Vaccines (1 of 3 - 19+ 3-dose series) 02/18/2004 Cervical Cancer Screening 2006 HPV/Cotest 2006 Pap Smear 2006 DTaP/Tdap/Td Vaccines (1 - Tdap) 2007 HPV Vaccines (1 - 3-dose sta ndard series) 02/18/2012 Mammogram 2025 COVID-19 Vaccine (1 - 2023-2 5 season) 2025 Influenza Vaccine (#1) 2025 Zoster Vaccines (1 of 2) 2035 HIB Vaccines Aged Out No longer eligi ble based on patient's age to complete this topic Hepatitis A Vaccines Aged Out No long er eligible based on patient's age to complete this topic IPV Vaccines Aged Out No longer eligi ble based on patient's age to complete this topic Meningococcal Vaccine Aged Out No eddie marianela eligible based on patient's age to complete this topic Pneumococcal Vaccine: Pediat rics and At-Risk Adult Patients Aged Out No longer elena gible based on patient's age to complete this topic Rotavirus Vaccines Aged Out No longer eligible based on patient's age to complete this topic
--- OUTSIDE RECORDS SUMMARY | 2025-04-05 07:43 | XMS_ITS | Encounter Summary ---
Author Organization [facility] Address [address] [place] [address] Care Team Providers Care Garden Center Manager Name Role Phone Amara Palacio Osbaldo WARP HAND Unavailable [phone] Rosibel Jerez PA-C Primary Care Provider + Mar Ponce PA-C Unavailable [phone] Source Comments In the event this information is protected by the Federal Confidentiality of Alcohol and Drug AbusePatient Records regulations: The Federal rules restrict any use of the information to criminally investigate or prosecute any alcohol or drug abuse patient.[facility] Encounter Details Date Type Department Care Team (Late st Contact Info) Description 07/02/2023 Get Medical Advice Internal Medicine [facility] [address] [place] [address] Rosibel Jerez PA-C [address] [place], [place] [id number] Therapy Social History Tobacco Use Types Packs/Day Years Used Date Smoking Tobacco: Every Day Cigarettes 0.5 20 Smokeless Tobacco: Never Passive Exposure Comments:va pe Alcohol Use Standard Drinks/Week Comments Yes 2 (1 standard drink = 0.6 oz pur e alcohol) 7-8 drinks per month [facility] Utilities Answer Date Recorded In the [...] any clubs o r organizations such as pentecostal groups, unions, fraternal or athletic groups, or [...] Answer Date Recorded PHQ-2 score 3 07/02/2023 [facility] [place] of Occupat ional Health - Occupational Stress [...] risk 8 01/15/2023 Data from: https://www.neighborhoodatlas.medicine.[facility].edu/. Last address used for calculation [address] [...] 06/06/2025 10:30 AM EST Office Visit Gastroenterology [address] [place] [address] [place] [address] [place] [address] Nausea and vomiting, unspecified vomiting type [R11.2] documented as of this encounter Visit Diagnoses Not on filedocumented in this encounter Care Teams Garden Center Manager Relationship Specialty Start Date End Date Rosibel Jerez PA-C [address] [place] [address] PCP - General Internal Medicine 04/09/23 Amara Palacio CNP [address] [place], [place] [address] [address] Referring Family Medicine 02/20/22 Mar Ponce PA-C [address] [place] [address] Material Control Supervisor Internal Medicine 06/12/24 08/14/24 documented as of this encounter
--- OUTSIDE RECORDS SUMMARY | 2025-04-05 07:43 | XMS_ITS | Encounter Summary ---
Author Organization [facility] Address [address] [facility] [place] [address] Care Team Providers Care Slab Tripper Name Role Phone Teresa Quintanilla MD Unavailable [phone] Rosibel Jerez MD Primary Care Provider Encounter Details Date Type Department Care Team (Late st Contact Info) Description 02/25/2024 Abstract [facility] [address] [place] [address] Solomon Sorensen DO [address] [place], [place] [id number] Social History Tobacco Use Types Packs/Day Years [...] on filedocumented in this encounter Care Teams Slab Tripper Relationship Specialty Start Date End Date Rosibel Jerez MD [address] [place] [address] PCP - General Physician Client Onboarding Analyst 12/14/23 Teresa Quintanilla MD [address] [place] [address] Referring Physician Family Medicine 03/02/23 documented as of this encounter
--- OUTSIDE RECORDS SUMMARY | 2025-04-05 07:43 | XMS_ITS | Encounter Summary ---
Author Organization [facility] Address [address] [place] [address] Care Team Providers Care Rattan Worker Name Role Phone Amara Palacio CNP Unavailable [phone] Rosibel Jerez-C Primary Care Provider + Mar Ponce-C Unavailable [phone] Source Comments In the event this information is protected by the Federal Confidentiality of Alcohol and Drug AbusePatient Records regulations: The Federal rules restrict any use of the information to criminally investigate or prosecute any alcohol or drug abuse patient.[facility] Encounter Details Date Type Department Care Team (Late st Contact Info) Description 08/20/2023 Patient Msg Neurology [address] [place] [address] Joo Cruz MD [address] [place] [phone] Form needs you to sign Social History Tobacco Use Types Packs/Day Years Used Date Smoking Tobacco: Former Cigarettes 0.5 20 0 07/12/2003 - 07/12/2023 Smokeless Tobacco: Never Passive Exposure Comments:va pe Alcohol Use Standard Drinks/Week Comments Yes 2 (1 standard drink = 0.6 oz pur e alcohol) 7-8 drinks per month [facility] Utilities Answer Date Recorded In the [...] often do you attend chur ch or scientology services? 1 to 4 times per year 04/09/2023 Do you belong to any clubs o r organizations such as lutheran groups, unions, fraternal or athletic groups, or [...] Answer Date Recorded PHQ-2 score 2 08/10/2023 [facility] [place] of Occupat ional Health - Occupational Stress [...] is lower risk 8 01/15/2023 Data from: https://www.neighborhoodatlas.medicine.[facility].edu/. Last address used for calculation [address] [...] Date Author No 05/03/2014 1:19 PM EDT Roladno Miguel MA documented in this encounter Miscellaneous Notes * Telephone Encounter - Katey Orellana - 08/26/2023 10:39 AM EST I faxed in the appeals request with the patient signed form. Fax was complete. Also put the paperwork in the patient chart. documented in this encounter Plan of Treatment Upcoming Encounters Date Type Department Care Team (Late st Contact Info) Description 06/06/2025 10:30 AM EST Office Visit Gastroenterology [address] [place] [address] [place] [address] [place] [address] Nausea and vomiting, unspecified vomiting type [R11.2] documented as of this encounter Visit Diagnoses Not on filedocumented in this encounter Care Teams Rattan Worker Relationship Specialty Start Date End Date Mizanin, Rosibel L, PA-C [address] [place] [address] PCP - General Internal Medicine 04/09/23 Amara Palacio, TRANSMISSION SYSTEM OPERATOR [address] [place] [address] Referring Family Medicine 02/20/22 Mar Ponce PA-C [address] [place] [id number] Ship Pilot Dispatcher Internal Medicine 06/12/24 08/14/24 documented as of this encounter
--- OUTSIDE RECORDS SUMMARY | 2025-04-05 07:43 | XMS_ITS | Encounter Summary ---
Author Organization [facility] Address [address] [place] [address] Care Team Providers Care Personnel Clerks Supervisor Name Role Phone Amara Palacio RADIO ARTIST Unavailable [phone] Rosibel Jerez PA-C Primary Care Provider + Mar PonceC Unavailable [phone] Source Comments In the event this information is protected by the Federal Confidentiality of Alcohol and Drug AbusePatient Records regulations: The Federal rules restrict any use of the information to criminally investigate or prosecute any alcohol or drug abuse patient.[facility] Encounter Details Date Type Department Care Team (Late st Contact Info) Description 06/09/2024 Patient Msg Cardiology [address] [facility] [place], [place] [id number] Provider, Ccf Reschedule Appointment Social History Tobacco Use Types Packs/Day Years Used Date Smoking Tobacco: Former Cigarettes 0.5 20 0 07/12/2003 - 07/12/2023 Smokeless Tobacco: Never Passive Exposure Comments:va pe Alcohol Use Standard Drinks/Week Comments Yes 2 (1 standard drink = 0.6 oz pur e alcohol) 7-8 drinks per month [facility] Utilities Answer Date Recorded In the [...] any clubs o r organizations such as sabianism groups, unions, fraternal or athletic groups, or [...] PHQ-2 Answer Date Recorded PHQ-2 score 2 01/21/2024 [facility] [place] of Occupat ional Health - Occupational Stress [...] risk 8 01/15/2023 Data from: https://www.neighborhoodatlas.medicine.[facility].edu/. Last address used for calculation [address] [...] 06/06/2025 10:30 AM EST Office Visit Gastroenterology [address] [place] [address] [place] [address] [place] [address] Nausea and vomiting, unspecified vomiting type [R11.2] documented as of this encounter Visit Diagnoses Not on filedocumented in this encounter Care Teams Personnel Clerks Supervisor Relationship Specialty Start Date End Date Rosibel Jerez PA-C [address] [place] [address] PCP - General Internal Medicine 04/09/23 Amara Palacio CNP [address] [place] [address] Referring Family Medicine 02/20/22 Mar Ponce PA-C [address] [phone] Boarding Room Fixer Internal Medicine 06/12/24 08/14/24 documented as of this encounter
--- OUTSIDE RECORDS SUMMARY | 2025-04-05 07:43 | XMS_ITS | Encounter Summary ---
Author Organization [facility] Address [address] [place] [address] Care Team Providers Care Badger Distiller Operator Name Role Phone Amara Palacio TRAIN DISPATCHER Unavailable [phone] Rosibel Jerez PA-C Primary Care Provider + Nitza ValdovinosW Unavailable [phone] Mar Ponce PA-C Unavailable [phone] Source Comments In the event this information is protected by the Federal Confidentiality of Alcohol and Drug AbusePatient Records regulations: The Federal rules restrict any use of the information to criminally investigate or prosecute any alcohol or drug abuse patient.[facility] Encounter Details Date Type Department Care Team (Late st Contact Info) Description 04/15/2023 Patient Msg Primary Care Social Work [address] [place], [place] [phone] Nitza Valdovinos LSW Patient Outreach Social History Tobacco Use Types Packs/Day Years Used Date Smoking Tobacco: Every Day Cigarettes 0.5 20 Smokeless Tobacco: Never Alcohol Use Standard Drinks/Week Comments Yes 2 (1 standard drink = 0.6 oz pur e alcohol) 7-8 drinks per month [facility] Utilities Answer Date Recorded In [...] often do you attend chur ch or faith services? 1 to 4 times per year 04/09/2023 Do you belong to any clubs o r organizations such as sikh groups, unions, fraternal or athletic groups, or [...] 04/09/2023 PHQ-2 Answer Date Recorded PHQ-2 score 0 04/09/2023 [facility] [place] of Occupat ional Health - Occupational Stress [...] risk 8 01/15/2023 Data from: https://www.neighborhoodatlas.medicine.[facility].edu/. Last address used for calculation [...] Assessment Author No 05/03/2014 1:19 PM EDT Rolnado Miguel MA * Do you have difficulty [...] 06/06/2025 10:30 AM EST Office Visit Gastroenterology [address] [place] [address] [place] [address] [place] [address] Nausea and vomiting, unspecified vomiting type [R11.2] documented as of this encounter Visit Diagnoses Not on filedocumented in this encounter Care Teams Badger Distiller Operator Relationship Specialty Start Date End Date Rosibel Jerez PA-C [address] [place] [address] PCP - General Internal Medicine 04/09/23 Amara Palacio CNP [address] [place] [address] [place] [address] Referring Family Medicine 02/20/22 Nitza Valdovinos, PRE K TEACHER Fine Grader Asset Analyst 04/15/23 04/20/23 Mar Ponce PA-C [address] [place], [place] [phone] Material Loader Internal Medicine 06/12/24 08/14/24 documented as of this encounter
--- OUTSIDE RECORDS SUMMARY | 2025-04-05 07:43 | XMS_ITS | Encounter Summary ---
Author Organization [facility] Address [address] [place] [address] Care Team Providers Care Cloth Examiner Hand Name Role Phone Teresa Quintanilla CNP Primary Care Provider + Amara Palacio VOCATIONAL NURSING INSTRUCTOR Unavailable [phone] Rosibel Jerez-C Primary Care Provider + Nitza Valdovinos FEEDER LOADER Unavailable [phone] Mar Ponce-C Unavailable [phone] Source Comments In the event this information is protected by the Federal Confidentiality of Alcohol and Drug AbusePatient Records regulations: The Federal rules restrict any use of the information to criminally investigate or prosecute any alcohol or drug abuse patient.[facility] Encounter Details Date Type Department Care Team (Late st Contact Info) Description [facility] [place] [address] [id number] Provider, Ccf Establish PCP Social History Tobacco Use Types Packs/Day Years [...] often do you attend chur ch or protestant services? 1 to 4 times per year 04/09/2023 Do you belong to any clubs o r organizations such as methodist groups, unions, fraternal or athletic groups, or [...] Answer Date Recorded PHQ-2 score 0 04/09/2023 [facility] [place] of Occupat ional Health - Occupational Stress [...] place to sleep or slept in a senior care (including now)? No 04/09/2023 Area Deprivation Index [...] as of this encounter Functional Status * AUDIT-C Score Answer Date of Assessment Author -1 04/09/2023 12:43 PM EDT User, My chart * Q1: How often do you have a drink containing alcohol? Answer Date of Assessment Author 2-4 times a month 04/09/2023 12:43 PM EDT UserCourt * Q2: How many drinks containing alcohol do you have on a typical day when you are drinking? Answer Date of Assessment Author Patient declined 04/09/2023 12:43 PM EDT User, Stephani jordant * Q3: How often do you have six or more drinks on one occasion? Answer Date of Assessment Author Patient declined 04/09/2023 12:43 PM EDT User, Stephani jordant * Are you deaf or do you [...] 06/06/2025 10:30 AM EST Office Visit Gastroenterology [address] [place] [address] [place] [address] [place] [address] Nausea and vomiting, unspecified vomiting type [R11.2] documented as of this encounter Visit Diagnoses Not on filedocumented in this encounter Care Teams Cloth Examiner Hand Relationship Specialty Start Date End Date Teresa Quintanilla CNP [address] [place] [address] PCP - General 12/18/18 04/08/23 Rosibel Jerez PA-C [address] [place] [address] PCP - General Internal Medicine 04/09/23 Amara Palacio CNP [address] [place] [address] Referring Family Medicine 02/20/22 Nitza Valdovinos LSW Hand Inspector Cyber Intelligence Analyst 04/15/23 04/20/23 Mar Ponce PA-C [facility] [place] [address] Development Consultant Internal Medicine 06/12/24 08/14/24 documented as of this encounter
--- OUTSIDE RECORDS SUMMARY | 2025-04-05 07:43 | XMS_ITS | Encounter Summary ---
Author Organization [facility] Address [address] [place] [address] Care Team Providers Care Sample Tester Grinder Name Role Phone Teresa Quintanilla MD Unavailable [phone] Rosibel Jerez MD Primary Care Provider Encounter Details Date Type Department Care Team (Late st Contact Info) Description 02/12/2024 Clinisync Result Encounter [facility] External Department Unsolicited Stevenson Sorensen, DO [address] [place] [address] Social History Tobacco Use Types Packs/Day Years [...] Procedure Name Priority Date/Time Associated Diagnosis Comments XR CHEST 2V 02/12/2024 10:13 AM EDT documented in this encounter Results * XR CHEST 2V (02/12/2024 10:13 AM EDT) Anatomical Region Laterality Modality Other 02/12/2024 10:1 3 AM EDT Narrative 02/12/2024 10:15 [place] [address] XRay Report Signed Patient: LADI YUN MR#: [id number] : 1985 Acct:[id number] Age/Sex: 38 / F ADM Date: 02/11/24 Loc: [facility] Attending Dr: Stevenson Sorensen D.O. Ordering Physician: Stevenson Sorensen D.O. Date of Service: 02/11/24 Procedure(s): XR chest 2V Accession Number(s): [id number] cc: Stevenson Sorensen D.O.; Physician,Non-Staff [place] [address] [place] [address] Patient Name: LADI YUN MRN: [id number] date: 1985 Sex: F Assigned Patient Location: [facility] Current Patient Location: Accession/Order Number: [id number] Exam Date: 02/11/2024 09:05 Report Date: 02/12/2024 10:13 At the request of: STEVENSON SORENSEN Procedure: XR chest 2V EXAMINATION: XR chest 2V, 02/11/2024 9:05 AM EDT HISTORY: Preop exam COMPARISON: None. TECHNIQUE: Chest x-ray: Two views. FINDINGS: No focal consolidations or pleural effusions. Cardiomediastinal silhouette is unremarkable. Visualized osseous structures are unremarkable. Lower cervical spine anterior fusion. XR/XR chest 2V IMPRESSION: No acute disease. Electronically authenticated by: AMADOR BARRAZA Date: 02/12/2024 10:13 Dictated By: Amador Barraza M.D. Signed By: 02/12/24 1015 DD/ 1013 TD/TT: Poultry Processing Supervisor: Procedure Note Radiology, Radiologist, MD - 02/12/2024 [address] [place] [id number] XRay Report Signed Patient: LADI YUN LMR#: [id number] : 1985Acct:[id number] Age/Sex: 38 / FADM Date: 02/11/24 Loc: [facility] Attending Dr: Stevenson Sorensen D.O. Ordering Physician: Stevenson Sorensen D.O. Date of Service: 02/11/24 Procedure(s): XR chest 2V Accession Number(s): [id number] cc: Stevenson Sorensen D.O.; Physician,Non-Staff [place] The [address] [address] Patient Name: LADI YUN MRN: [facility]:[id number] date: 1985 Sex: F Assigned Patient Location: [facility] Current Patient Location: Accession/Order Number: [id number] Exam Date: 02/11/2024 09:05 Report Date: 02/12/2024 10:13 At the request of: STEVENSON SORENSEN Procedure: XR chest 2V EXAMINATION: XR chest 2V, 02/11/2024 9:05 AM EDT HISTORY: Preop exam COMPARISON: None. TECHNIQUE: Chest x-ray: Two views. FINDINGS: No focal consolidations or pleural effusions. Cardiomediastinal silhouette is unremarkable. Visualized osseous structures are unremarkable. Lower cervical spineanterior fusion. XR/XR chest 2V IMPRESSION: No acute disease. Electronically authenticated by: AMADOR BARRAZA Date: 02/12/2024 10:13 Dictated By: Amador Barraza M.D. Signed By:02/12/24 1015 DD/ 1013 TD/TT: Poultry Processing Supervisor: Stevenson Sorensen DO [facility] Final Result documented in this encounter Visit Diagnoses Not on filedocumented in this encounter Care Teams Sample Tester Grinder Relationship Specialty Start Date End Date Rosibel Jerez MD [address] [place] [address] PCP - General Physician Tester Armature Or Fields 12/14/23 Teresa Quintanilla MD [facility]5 [place], [place] [address] Referring Physician Family Medicine 03/02/23 documented as of this encounter
--- OUTSIDE RECORDS SUMMARY | 2025-04-05 07:43 | XMS_ITS | Encounter Summary ---
Author Organization [facility] Address [address] [facility] [place] [address] Care Team Providers Care Double Backer Name Role Phone Teresa Quintanilla MD Unavailable [phone] Rosibel Jerez MD Primary Care Provider Encounter Details Date Type Department Care Team (Late st Contact Info) Description 03/02/2024 Abstract [facility] [address] [place] [address] Solomon Sorensen DO [address] [place], [place] [id number] Social History Tobacco Use Types Packs/Day Years [...] on filedocumented in this encounter Care Teams Double Backer Relationship Specialty Start Date End Date Rosibel Jerez MD [address] [place] [address] PCP - General Physician Garnishment Specialist 12/14/23 Teresa Quintanilla MD [address] [place] [address] Referring Physician Family Medicine 03/02/23 documented as of this encounter
--- OUTSIDE RECORDS SUMMARY | 2025-04-05 07:43 | XMS_ITS | Encounter Summary ---
Author Organization [facility] Address [address] [place] [address] Care Team Providers Care Jukebox Coin Collector Name Role Phone Amara Palacio CNP Unavailable [phone] Rosibel Jerez PA-C Primary Care Provider + Mar PonceC Unavailable [phone] Source Comments In the event this information is protected by the Federal Confidentiality of Alcohol and Drug AbusePatient Records regulations: The Federal rules restrict any use of the information to criminally investigate or prosecute any alcohol or drug abuse patient.[facility] Encounter Details Date Type Department Care Team (Late st Contact Info) Description 07/31/2024 Patient Msg [facility] [place] [address] [place] [address] Provider, Ccf follow up apt Social History Tobacco Use Types Packs/Day Years Used Date Smoking Tobacco: Former Cigarettes 0.5 20 0 07/12/2003 - 07/12/2023 Smokeless Tobacco: Never Passive Exposure Comments:va pe Alcohol Use Standard Drinks/Week Comments Yes 2 (1 standard drink = 0.6 oz pur e alcohol) 7-8 drinks per month [facility] Utilities Answer Date Recorded In [...] often do you attend chur ch or quaker services? 1 to 4 times per year 04/09/2023 Do you belong to any clubs o r organizations such as mormon groups, unions, fraternal or athletic groups, or [...] 04/09/2023 PHQ-2 Answer Date Recorded PHQ-2 score 6 08/04/2024 [facility] [place] of Occupat ional Health - Occupational Stress [...] place to sleep or slept in a halfway (including now)? No 04/09/2023 Area Deprivation Index [...] 06/06/2025 10:30 AM EST Office Visit Gastroenterology [address] [place] [address] [place] [address] [place] [address] Nausea and vomiting, unspecified vomiting type [R11.2] documented as of this encounter Visit Diagnoses Not on filedocumented in this encounter Care Teams Jukebox Coin Collector Relationship Specialty Start Date End Date Rosibel Jerez PA-C [address] [place] [address] PCP - General Internal Medicine 04/09/23 Amara Palacio CNP [address] [place] [address] Referring Family Medicine 02/20/22 Mar Ponce PA-C [address] [place] [id number] Warehouse Order Puller Internal Medicine 06/12/24 08/14/24 documented as of this encounter
--- OUTSIDE RECORDS SUMMARY | 2025-04-05 07:43 | XMS_ITS | Encounter Summary ---
Author Organization [facility] Address [address] [place] [address] Care Team Providers Care Crm Business Analyst Name Role Phone Teresa Quintanilla WATER REUSE PROGRAM MANAGER Primary Care Provider + Amara Paalcio WATER REUSE PROGRAM MANAGER Unavailable [phone] Rosibel Jerez PA-C Primary Care Provider + Nitza Valdovinos RESTAURANT ATTENDANT Unavailable [phone] Mar Ponce-C Unavailable [phone] Source Comments In the event this information is protected by the Federal Confidentiality of Alcohol and Drug AbusePatient Records regulations: The Federal rules restrict any use of the information to criminally investigate or prosecute any alcohol or drug abuse patient.[facility] Encounter Details Date Type Department Care Team (Late st Contact Info) Description 03/05/2023 Patient Msg Neurology [address] [place] [address] Tristan Guallpa MD [address] [place] [address] Follow up Social History Tobacco Use Types Packs/Day [...] risk 8 01/15/2023 Data from: https://www.neighborhoodatlas.medicine.[facility]/. Last address used for calculation Thais Fernandez 01/15/2023 Comments No Sex and Gender Information [...] Rolando Miguel MA documented in this encounter Miscellaneous Notes * Telephone Encounter - Phill Hannah - 04/05/2023 11:01 AM EDT Received fax from [facility]. Scan in patient chart for review. documented in this encounter Plan of Treatment Upcoming Encounters Date Type Department Care Team (Late st Contact Info) Description 06/06/2025 10:30 AM EST Office Visit Gastroenterology [address] [place] [address] [place] [address] [place] [address] Nausea and vomiting, unspecified vomiting type [R11.2] documented as of this encounter Visit Diagnoses Not on filedocumented in this encounter Care Teams Crm Business Analyst Relationship Specialty Start Date End Date Teresa Quintanilla CNP [address] [place] [address] PCP - General 12/18/18 04/08/23 Rosibel Jerez PA-C [address] [place] [address] PCP - General Internal Medicine 04/09/23 Amara Palacio CNP [address] [place] [address] [place] [address] Referring Family Medicine 02/20/22 Nitza Valdovinos LSW Painter Rough Tug Boat Engineer 04/15/23 04/20/23 Mar Ponce PA-C [address] [place] [id number] Volunteer Patient Representative Internal Medicine 06/12/24 08/14/24 documented as of this encounter
--- OUTSIDE RECORDS SUMMARY | 2025-04-05 07:43 | XMS_ITS | Encounter Summary ---
Author Organization [facility] Address [address] [place] [facility] [place] [address] Care Team Providers Care Sterile Preparation Technician Name Role Phone Teresa Quintanilla MD Unavailable [phone] Rosibel Jerez MD Primary Care Provider Encounter Details Date Type Department Care Team (Late st Contact Info) Description 02/24/2024 Abstract [facility] WALLACE [address] [place] [address] Solomon Sorensen DO [address] [place], [place] [address] Social History Tobacco Use Types Packs/Day Years [...] on filedocumented in this encounter Care Teams Sterile Preparation Technician Relationship Specialty Start Date End Date Rosibel Jerez MD [address] [place] [address] PCP - General Physician Aircraft Instrument Engineer 12/14/23 Teresa Quintanilla MD [address] [place] [address] Referring Physician Family Medicine 03/02/23 documented as of this encounter
--- OUTSIDE RECORDS SUMMARY | 2025-04-05 07:43 | XMS_ITS | Encounter Summary ---
Demographics Address [address] [facility] [place] [address] Home Phone Mobile Phone Email Address Email Address Preferred Language ENG Marital Status Single Mu-Ism Affiliation Unknown Race White Ethnic Group Not or Lati no Author Organization [facility] Address [address] [place] [address] Care Team Providers Care Bleacher [employer] Name Role Phone Amara Palacio CNP Unavailable [phone] Rosibel Jerez PA-C Primary Care Provider + Mar Ponce-C Unavailable [phone] Source Comments In the event this information is protected by the Federal Confidentiality of Alcohol and Drug AbusePatient Records regulations: The Federal rules restrict any use of the information to criminally investigate or prosecute any alcohol or drug abuse patient.[facility] Reason for Visit * Reason Comments Radiology XR Encounter Details Date Type Department Care Team (Late st Contact Info) Description 06/18/2023 Radiology General Radiology [address] [place] [address] Jossy Martin, RT(R) Radiology XR Social History Tobacco Use Types Packs/Day Years Used Date Smoking Tobacco: Every Day Cigarettes 0.5 20 Smokeless Tobacco: Never Alcohol Use Standard Drinks/Week Comments Yes 2 (1 standard drink = 0.6 oz pur e alcohol) 7-8 drinks per month [facility] Utilities Answer Date Recorded In the [...] often do you attend chur ch or jain services? 1 to 4 times per year [...] Answer Date Recorded PHQ-2 score 0 04/09/2023 [facility] [place] of Occupat ional Health - Occupational Stress [...] is lower risk 8 01/15/2023 Data from: https://www.neighborhoodatlas.medicine.[facility].edu/. Last address used for calculation [address] [...] Rolando Miguel MA documented in this encounter Progress Notes * Jossy Martin RT(R) - 06/18/2023 9:05 AM EST Radiology Service Progress Note PATIENT NAME: Brianna Byers DATE OF SERVICE: June 18, 2023 [...] IV DATA: Not applicable SIGNED BY: RT Ramez(Jeremy) June 18, 2023 9:05 AM documented in this encounter Plan of Treatment Upcoming Encounters Date Type Department Care Team (Late st Contact Info) Description 06/06/2025 10:30 AM EST Office Visit Gastroenterology [address] [place] [address] [place] [address] [place] [address] Nausea and vomiting, unspecified vomiting type [R11.2] documented as of this encounter Visit Diagnoses Not on filedocumented in this encounter Care Teams Bleacher [employer] Pul[employer] Relationship Specialty Start Date End Date Rosibel Jerez PA-C [address] [place] [address] PCP - General Internal Medicine 04/09/23 Amara Palacio CNP [address] [place] [address] Referring Family Medicine 02/20/22 Mar Ponce PA-C [facility] [place] [address] Claim Administrator Internal Medicine 06/12/24 08/14/24 documented as of this encounter
--- OUTSIDE RECORDS SUMMARY | 2025-04-05 07:43 | XMS_ITS | Encounter Summary ---
Author Organization [facility] Address [facility] [place] [address] Care Team Providers Care Psychiatric Mental Health Nurse Name Role Phone Amara Palacio FURNITURE REMOVALIST'S ASSISTANT Unavailable [phone] Rosibel Jerez PA-C Primary Care Provider + Nitza Valdovinos AWS SOFTWARE DEVELOPMENT ENGINEER Unavailable Mar Ponce PA-C Unavailable [phone] Source Comments In the event this information is protected by the Federal Confidentiality of Alcohol and Drug AbusePatient Records regulations: The Federal rules restrict any use of the information to criminally investigate or prosecute any alcohol or drug abuse patient.[facility] Encounter Details Date Type Department Care Team (Late st Contact Info) Description 04/16/2023 Patient Msg Medical Records [address] [place] [address] Provider, Ccf Questionnaire Submission Social History Tobacco Use Types Packs/Day Years Used Date Smoking Tobacco: Every Day Cigarettes 0.5 20 Smokeless Tobacco: Never Alcohol Use Standard Drinks/Week Comments Yes 2 (1 standard drink = 0.6 oz pur e alcohol) 7-8 drinks per month [facility] Utilities Answer Date Recorded In the past [...] any clubs o r organizations such as scientologist groups, unions, fraternal or athletic groups, or [...] Answer Date Recorded PHQ-2 score 0 04/09/2023 [facility] [place] of Occupat ional Health - Occupational Stress [...] place to sleep or slept in a fdc (including now)? No 04/09/2023 Area Deprivation Index Answer Date Darrius rded National Score (1-100), lower number is lower ri sk 87 01/15/2023 State Score (1-10), lower number is lower risk 8 01/15/2023 Data from: https://www.neighborhoodatlas.medicine.[facility].edu/. Last address used for calculation [address] [...] 06/06/2025 10:30 AM EST Office Visit Gastroenterology [address] [place] [address] [place] [address] [place] [address] Nausea and vomiting, unspecified vomiting type [R11.2] documented as of this encounter Visit Diagnoses Not on filedocumented in this encounter Care Teams Psychiatric Mental Health Nurse Relationship Specialty Start Date End Date Rosibel Jerez PA-C [address] [place] [address] PCP - General Internal Medicine 04/09/23 Amara Palacio CNP [address] [place] [address] Referring Family Medicine 02/20/22 Nitza Valdovinos LSW Sous Chef Starting Gate Driver 04/15/23 04/20/23 Mar Ponce PA-C [address] [place], [place] [phone] Buttonhole Marker Internal Medicine 06/12/24 08/14/24 documented as of this encounter
--- OUTSIDE RECORDS SUMMARY | 2025-04-05 07:43 | XMS_ITS | Encounter Summary ---
Author Organization [facility] Address [address] [place], [place] [address] Care Team Providers Care Efficiency Expert Name Role Phone Teresa Quintanilla CNP Primary Care Provider + Amara Palacio FLEET SALES ASSOCIATE Unavailable [phone] Rosibel Jerez-C Primary Care Provider + Nitza Valdovinos [facility] Unavailable [phone] Mar Ponce-C Unavailable [phone] Source Comments In the event this information is protected by the Federal Confidentiality of Alcohol and Drug AbusePatient Records regulations: The Federal rules restrict any use of the information to criminally investigate or prosecute any alcohol or drug abuse patient.[facility] Encounter Details Date Type Department Care Team (Late st Contact Info) Description 03/17/2023 Patient Msg [facility] [address] [place] [id number] Provider, Ccf HOW TO ACCESS YOUR VIRTUAL VISIT Social History Tobacco Use Types Packs/Day Years [...] is lower risk 8 01/15/2023 Data from: https://www.neighborhoodatlas.medicine.[facility].edu/. Last address used for calculation [address] [...] 06/06/2025 10:30 AM EST Office Visit Gastroenterology [address] [place] [address] [place] [address] [place] [address] Nausea and vomiting, unspecified vomiting type [R11.2] documented as of this encounter Visit Diagnoses Not on filedocumented in this encounter Care Teams Efficiency Expert Relationship Specialty Start Date End Date Teresa Quintanilla CNP [address] [place] [address] PCP - General 12/18/18 04/08/23 Rosibel Jerez PA-C [address] [place] [address] PCP - General Internal Medicine 04/09/23 Amara Palacio CNP [address] [place] [address] Referring Family Medicine 02/20/22 Nitza Valdovinos LSW Cartography/Mapping Technician Datacap Developer 04/15/23 04/20/23 Mar Ponce PA-C [facility] [place] [address] Supervisor [place]loom Internal Medicine 06/12/24 08/14/24 documented as of this encounter
--- OUTSIDE RECORDS SUMMARY | 2025-04-05 07:43 | XMS_ITS | Encounter Summary ---
Author Organization [facility] Address [address] [place] [address] Care Team Providers Care Manager Of Investigations Name Role Phone Amara Palacio CNP Unavailable [phone] Rosibel Jerez-C Primary Care Provider + Mar Ponce PA-C Unavailable [phone] Source Comments In the event this information is protected by the Federal Confidentiality of Alcohol and Drug AbusePatient Records regulations: The Federal rules restrict any use of the information to criminally investigate or prosecute any alcohol or drug abuse patient.[facility] Encounter Details Date Type Department Care Team (Late st Contact Info) Description 08/10/2023 Patient Msg [facility] [place] [address] [place] [address] Provider, [facility] Important Reminder for Preparing Your Skin for Surgery Social History Tobacco Use Types Packs/Day Years Used Date Smoking Tobacco: Former Cigarettes 0.5 20 0 07/12/2003 - 07/12/2023 Smokeless Tobacco: Never Passive Exposure Comments:va pe Alcohol Use Standard Drinks/Week Comments Yes 2 (1 standard drink = 0.6 oz pur e alcohol) 7-8 drinks per month [facility] Utilities Answer Date Recorded In the past [...] often do you attend chur ch or hinduism services? 1 to 4 times per year 04/09/2023 Do you belong to any clubs o r organizations such as mandaen groups, unions, fraternal or athletic groups, or [...] Answer Date Recorded PHQ-2 score 2 08/10/2023 [facility] [place] of Occupat ional Health - Occupational Stress [...] is lower risk 8 01/15/2023 Data from: https://www.neighborhoodatlas.medicine.[facility].edu/. Last address used for calculation [address] [...] 06/06/2025 10:30 AM EST Office Visit Gastroenterology [address] [place] [address] [place] [address] [place] [address] Nausea and vomiting, unspecified vomiting type [R11.2] documented as of this encounter Visit Diagnoses Not on filedocumented in this encounter Care Teams Manager Of Investigations Relationship Specialty Start Date End Date Rosibel Jerez PA-C [address] [place] [address] PCP - General Internal Medicine 04/09/23 Amara Palacio CNP [address] [place] [address] [place] [address] Referring Family Medicine 02/20/22 Mar Ponce PA-C [address] [place], [place] [id number] Loss Prevention Research Engineer Internal Medicine 06/12/24 08/14/24 documented as of this encounter
--- OUTSIDE RECORDS SUMMARY | 2025-04-05 07:43 | XMS_ITS | Encounter Summary ---
Author Organization [facility] Address [address] [place] [id number] Care Team Providers Care Alarm Operator Name Role Phone Amara Palacio Osbaldo CARTON MACHINE OPERATOR Unavailable [phone] Rosibel Jerez PA-C Primary Care Provider + Mar Ponce PA-C Unavailable [phone] Source Comments In the event this information is protected by the Federal Confidentiality of Alcohol and Drug AbusePatient Records regulations: The Federal rules restrict any use of the information to criminally investigate or prosecute any alcohol or drug abuse patient.[facility] Encounter Details Date Type Department Care Team (Late st Contact Info) Description 07/03/2023 Get Medical Advice Internal Medicine [facility] [address] [place] [address] Rosibel Jerez PA-C [address] [place], [place] [id number] Follow up from Dr. Cruz Social History Tobacco Use Types Packs/Day Years Used Date Smoking Tobacco: Every Day Cigarettes 0.5 20 Smokeless Tobacco: Never Passive Exposure Comments:or pe Alcohol Use Standard Drinks/Week Comments Yes 2 (1 standard drink = 0.6 oz pur e alcohol) 7-8 drinks per month [facility] Utilities Answer Date Recorded In the past 12 months has e [employer], gas, oil, or water company threatened to [...] often do you attend chur ch or restorationism services? 1 to 4 times per year [...] Answer Date Recorded PHQ-2 score 3 07/02/2023 [facility] [place] of Occupat ional Health - Occupational Stress [...] place to sleep or slept in a nursing home (including now)? No 04/09/2023 Area Deprivation Index Answer Date Darrius rded National Score (1-100), lower number is lower ri sk 87 01/15/2023 State Score (1-10), lower number is lower risk 8 01/15/2023 Data from: https://www.neighborhoodatlas.medicine.[facility].edu/. Last address used for calculation [address] [...] 06/06/2025 10:30 AM EST Office Visit Gastroenterology [address] [place] [address] [place] [address] [place] [address] Nausea and vomiting, unspecified vomiting type [R11.2] documented as of this encounter Visit Diagnoses Not on filedocumented in this encounter Care Teams Alarm Operator Relationship Specialty Start Date End Date Rosibel Jerez PA-C [address] [place] [address] PCP - General Internal Medicine 04/09/23 Amara Palacio CARTON MACHINE OPERATOR [address] [place] [address] [place] [address] Referring Family Medicine 02/20/22 Mar Ponce PA-C [address] [place] [phone] Foundry Process Engineer Internal Medicine 06/12/24 08/14/24 documented as of this encounter
--- OUTSIDE RECORDS SUMMARY | 2025-04-05 07:43 | XMS_ITS | Patient Health Record ---
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 Name Role Phone Bre Tineo Primary Care Provider Nayana Prieto Unavailable [phone] Nitza Gonzalez Unavailable [phone] Allergies Allergen (clinical drug ingredient) Drug/Non Drug Allergy documented on EMR Reaction Allergy Type Onset Date Status metoclopramide REGLAN (uncoded) Unknown Allergy Active cariprazine VRAYLAR (uncoded) Unknown Allergy Active amoxicillin Amoxicillin rash Drug Allergy Act vamshi Reason For Referral No Information Medications Medication SIG (Take, Route, Frequency, Duration) Notes Start Date End Date Status Folic Acid 1 MG 1 tablet Orally Once a day Active Vitamin B12 1000 MCG 1 tablet Orally Onc e a day Active Tricor 145 MG 1 tablet orally Once a day Not-Taking Ondansetron HCl 8 MG 1 tablet Orally as needed (prn) Active Dificid 200 MG 1 tablet Orally Twic e a day for 10 days, then once a day for 20 days Not-Taking Gabapentin 100 MG 2 capsules Orally twice a day (bid) Active Strattera 80 MG 1 capsule in the morning Orally Once a day; Duration: 30 day(s) Not-Taking Pantoprazole Sodium 40 MG 1 tablet Orally twice a day (bid) Active buPROPion HCl ER (XL) 150 MG TAKE 1 TABLET BY MOUTH EVERY DAY IN THE MORNING FOR 30 DAYS; Duration: 90 Not-Taking traZODone HCl 150 mg TAKE ONE TABLET BY MOUTH ONCE DAILY AT BEDTIME FOR 30 DAYS; Duration: 30 Not-Taking Imitrex 50 MG 1 tablet at least 2 hours between doses as needed Orally Twice a day Active Omeprazole 40 MG 1 capsule 30 minutes before morning meal Orally Once a day Not-Taking Cetirizine HCl 10 MG 1 tablet Orally Onc e a day Not-Taking Singulair 10 MG 1 tablet orally once a day Not-Taking FLUoxetine HCl 10 MG 1 capsule Orally On ce a day; Duration: 30 day(s) Not-Taking lamoTRIgine 200 mg RODGER ONE TABLET BY MOUTH ONCE DAILY FOR 30 DAYS (TAKE WITH THE 100MG); Duration: 30 Not-Taking OLANZapine 10 MG TAKE 1 TABLET BY ALEJANDRO TH EVERY DAY FOR 30 DAYS; Duration: 7 days Not-Taking Robinette Carbonate 300 mg TAKE ONE CAPSUL E BY MOUTH THREE TIMES A DAY FOR 30 DAYS; Duration: 30 days Not-Taking OLANZapine 2.5 MG take for 7 days and then every other day until complete Orally Once a day; Duration: 10 days 11/02/2024 Not-Taking Latuda 120 mg TAKE ONE TABLET BY MOUTH ONCE DAILY WITH FOOD FOR 30 DAYS; Duration: 30 Not-Taking OLANZapine 5 MG 1 tablet Orally Once a day; Duration: 7 days 10/16/2024 Not-Taking lamoTRIgine 100 mg TAKE ONE TABLET BY MOUTH ONCE DAILY FOR 30 DAYS (TAKE WITH THE 200MG); Duration: 30 Not-Taking Lunesta 2 MG 1 tablet immediately before bedtime Orally Once a day; Duration: 30 days 03/30/2025 05/29/2025 Active Amphetamine-Dextroamphet ER 20 MG 1 capsule in the morning Orally Once a day; Duration: 15 days 03/30/2025 Active cloNIDine HCl 0.1 MG 1 tablet Orally twi ce a day; Duration: 30 days Active SEROquel XR 50 MG 2 tablet in the evening Orally Once a day; Duration: 30 days Not-Takin g Lybalvi 5-10 MG 1 tablet daily for 5 days and then take every other day 4 times and stop Orally Once a day; Duration: 13 days 01/18/2025 Active oxyCODONE HCl 5 MG 1 tablet as needed Orally every 6 hrs Not-Taking Turmeric 500 MG 1 capsule Orally onc e a day Not-Taking OLANZapine 15 MG TAKE 1 TABLET BY ALEJANDRO TH EVERY DAY FOR 30 DAYS; Duration: 90 Not-Taking Wellbutrin XL 300 MG 1 tablet in the morning Orally Once a day; Duration: 30 days Active Rexulti 3 MG 1 tablet Orally Once a day; Duration: 30 days 06/15/2024 Active Wellbutrin XL 150 MG 1 tablet in the morning Orally Once a day; Duration: 30 days 11/02/2024 Active Propranolol HCl ER 80 MG 1 capsule Orall y Once a day Active busPIRone HCl 10 MG TAKE 2 TABLETS BY MOUTH 3 TIMES A DAY NEEDED; Duration: 90 Not-Taking Naproxen 250 MG 1 tablet Orally Twic e a day Not-Taking hydrOXYzine HCl 25 MG TAKE 1-2 TABLETS B Y MOUTH DAILY AT BEDTIME NEEDED FOR 30 DAYS; Duration: 90 Not-Taking CeleBREX 200 MG 1 capsule with food Orally Once a day Active Atomoxetine HCl 40 MG TAKE 1 CAPSULE BY MOUTH EVERY DAY IN THE MORNING FOR 30 DAYS; Duration: 30 Not-Taking Blisovi 24 Fe 1-20 MG-MCG(24) 1 tablet Orally Once a day Active Omeprazole 40 MG 1 capsule 30 minutes before morning meal Orally Once a day Not-Taking tiZANidine HCl 4 MG 2 tablets Orally at bedtime Active Sucralfate 1 GM 1 tablet Orally four times a day Not-Taking Magnesium 200 MG 2 tablets with a ev l Orally Once a day Active Dicyclomine HCl 10 MG 1 capsule Orally F our times a day Not-Taking Immunizations Vaccine Route Administration Date Status Comme nts Influenza 3+ PRIVATE IM Intramuscular 02/14/2023 Administered given by [facility] pharmacy Social History Tobacco Use: Social History Observation Description Date Details (start date - stop date) Never Smoker NA - NA Sex Assigned At : Social History Observation Description Sex Assigned At Female Tobacco Screen: Question Answer Notes Are you a: never smoker Alcohol Screening: Question Answer Notes Did you have a drink containing alcohol in the p ast year? No Points 0 Interpretation Negative Depression Screening (PHQ-9): Question Answer Notes Little interest or pleasure in doing things Maggie ral days Feeling down, depressed, or hopeless Several day s Trouble falling or staying asleep, or sleeping t oo much Not at all Feeling tired or having little energy Not at all Poor appetite or overeating More than half the d ays Feeling bad about yourself-o r that you are a failure or have let yourself or your family down Not at all Trouble concentrating on thi ngs, such as reading the newspaper or watching television Several days Moving or speaking so slowly that other people could have noticed. Or the opposite being so fidgety or restless that you have been moving around a lot more than usual Several days Thoughts that you would be b evelia off , or of hurting yourself in some way Not at all Total Score 6 Intepretation Mild Depression Section Notes: patient vapes patient vapes patient vapes patient vapes patient vapes patient vapes patient vapes patient vapes patient vapes patient vapes Problems Problem Type SNOMED Code ICD Code Onset Dates Problem Status W/U Status Risk Notes Problem Anxiety (47561606) Anxiety (F41.9) Active confirmed Problem Insomnia disorder related to another mental disorder (36674966) Psychophysiological insomnia (F51.04) Active confirmed Problem Depressed bipolar I disorder (45179994) Bipolar depression (F31.30) Active confirmed Problem History of psychiatric disorder (381777972) History of posttraumatic stress disorder (PTSD) (Z86.59) Active confirmed Problem Obese class II (4800401106804 05) BMI 35.0-35.9,adult (Z68.35) Active confirmed Problem Body mass index 30.00 to 34.99 (3336701434482 07) BMI 34.0-34.9,adult (Z68.34) Active confirmed Problem Inattention (38874089) Inattention (R41.840) Active confirmed Vital Signs Heart Rate 113 /min 11/02/2024 Oximetry 94 % 11/02/2024 Blood pressure diastolic 85 mm Hg 10/02/2024 Height 60 in 11/02/2024 Blood pressure systolic 137 mm Hg 10/02/2024 Weight 188.8 lbs 11/02/2024 BMI 36.87 kg/m2 11/02/2024 Encounters Encounter Location Date Provider Diagnosis [facility] [address] [place] [address] 04/01/2025 Bre Slingwine [facility] [address] [place] [address] 06/15/2024 Bre Slingwine Psychophysiological insomnia F51.04 [facility] [address] [place] [address] 08/29/2024 Bre Slingwine Inattention R41.840 [facility] [address] [place] [address] 09/26/2024 Bre Slingwine Inattention R41.840 [facility] [address] [place] [address] 10/02/2024 Bre Slingwine Bipolar depression F 31.30 [facility] [address] [place] [address] 11/02/2024 Bre Slingwine Anxiety F41.9 [facility] [address] [place] [address] 11/15/2024 Bre Slingwine Psychophysiological insomnia F51.04 [facility] [address] [place] [address] 11/28/2024 Bre Slingwine [facility] [address] [place] [address] 12/12/2024 Bre Slingwine Bipolar depression F 31.30 [facility] [address] [place] [address] 01/16/2025 Bre Slingwine Psychophysiological insomnia F51.04 ; Inattention R41.840 and Anxiety F41.9 [facility] [address] [place] [address] 03/19/2025 Bre Slingwine Inattention R41.840 [facility] [address] [place] [address] 03/30/2025 Bre Slingwine Psychophysiological insomnia F51.04 and Anxiety F41.[address] [address] 01/08/2025 Nayana Prieto Bipolar depression F 31.30 ; Anxiety F41.9 and History of posttraumatic stress disorder (PTSD) Z86.[address] [address] 01/23/2025 Nayana Prieto Bipolar depression F 31.30 and Anxiety F41.[address] [address] 02/08/2025 Nayana Prieto Bipolar depression F 31.30 ; Anxiety F41.9 and History of posttraumatic stress disorder (PTSD) Z86.[address] [address] 10/02/2024 Bre Slingwine Bipolar depression F 31.30 ; Inattention R41.840 ; Anxiety F41.9 and Psychophysiological insomnia F51.[address] [address] 11/02/2024 Bre Slingwine Bipolar depression F 31.30 ; Inattention R41.840 ; Anxiety F41.9 and Psychophysiological insomnia F51.[address] [address] 10/16/2024 Bre Slingwine Psychophysiological insomnia F51.04 ; Bipolar depression F31.30 ; Inattention R41.840 and Anxiety F41.[address] [address] 04/06/2024 Nitza Gonzalez Anxiety F41.9 ; Inattention R41.840 ; Bipolar depression F31.30 and History of posttraumatic stress disorder (PTSD) Z86.[address] [address] 04/27/2024 Nitza Gonzalez Anxiety F41.9 ; Inattention R41.840 ; Bipolar depression F31.30 and History of posttraumatic stress disorder (PTSD) Z86.[address] [address] 05/24/2024 Bre Slingwine Bipolar depression F 31.30 ; Inattention R41.840 ; Anxiety F41.9 and Psychophysiological insomnia F51.[address] [address] 06/15/2024 Bre Slingwine Bipolar depression F 31.30 ; Inattention R41.840 ; Anxiety F41.9 and Psychophysiological insomnia F51.[address] [address] 07/14/2024 Bre Slingwine Bipolar depression F 31.30 ; Inattention R41.840 ; Psychophysiological insomnia F51.04 and Anxiety F41.[address] [place] [address] 08/04/2024 Bre Slingwine Bipolar depression F 31.30 ; Inattention R41.840 ; Psychophysiological insomnia F51.04 and Anxiety F41.[address] [address] 08/31/2024 Bre Slingwine Bipolar depression F 31.30 ; Inattention R41.840 ; Anxiety F41.9 and Psychophysiological insomnia F51.[address] [address] 11/22/2024 Bre Slingwine Bipolar depression F 31.30 ; Inattention R41.840 ; Psychophysiological insomnia F51.04 and Anxiety F41.[address] [address] 12/13/2024 Bre Slingwine Bipolar depression F 31.30 ; Inattention R41.840 ; Psychophysiological insomnia F51.04 and Anxiety F41.[address] [address] 01/18/2025 Bre Slingwine Bipolar depression F 31.30 ; Inattention R41.840 ; Anxiety F41.9 and Psychophysiological insomnia F51.[address] [address] 02/16/2025 Bre Slingwine Anxiety F41.9 ; Bipo lar depression F31.30 ; Psychophysiological insomnia F51.04 and Inattention R41.[address] [address] 03/30/2025 Bre Slingwine Bipolar depression F 31.30 ; Inattention R41.840 ; Anxiety F41.9 and Psychophysiological insomnia F51.04 Assessments Encounter Date Diagnosis (ICD Code) Assessment Notes Treatment Notes Treatment Clinical Notes Section Notes 04/27/2024 Anxiety (ICD-10 - F41.9) Patient will continue Buspar to help with anxiety. Discussed dosing/side effects. She will continue Zyprexa to see if symptoms improve. Second generation antipsychotic medications can cause headache, drowsiness, agitation, dizziness, nausea, or extrapyramidal symptoms such as tremors, muscle spasms, slowness of movement or jerking of muscles. She will follow up in 3 weeks to reassess. . 05/24/2024 Bipolar depression (ICD-10 - F31.30) 06/15/2024 Bipolar depression (ICD-10 - F31.30) 06/15/2024 Psychophysiological insomnia (ICD-10 - F51.04) 07/14/2024 Bipolar depression (ICD-10 - F31.30) Patient will continue current treatment plan. Patient verbally acknowledges understanding instructions including medication education and has no further questions comments or concerns at this time. . Follow in 1 Month . Recommended treatment for Bipolar disorder includes FDA approved and OFF label medications: second generation antipsychotics and mood stabilizers. Discussed life threatening side effect of Lamotrigine. Pt is to monitor for new skin rashes or sensation of a sunburn or itchiness or redness, mouth sores or sores in mucus membranes, and call provider immediately and or go to ER, and stop the medication. Second generation antipsychotic medications can cause headache, drowsiness, agitation, dizziness, nausea, or extrapyramidal symptoms such as tremors, muscle spasms, slowness of movement or jerking of muscles. . Stable . The patient verbalizes understanding with all questions answered thoroughly and is in agreement with treatment plan. . Continue current treatment. Call for problems . GOALS: . Maintain medication regimen . _Improve mood stability . _Improve anxiety control . _Improve social and interpersonal functioning . Patient/Guardian will call sooner if symptoms worsen. Patient understands to go to ER if needed if symptoms become severe. . Crisis Intervention plan was discussed and agreed upon. Patient/Guardian will call 911 in case of emergency. Emergency contact information was provided to the patient/guardian. . Pharmacological management: . Alternative medication plans were discussed with the patient/guardian. All relevant side effects and potential adverse effects were discussed with the patient/guardian. Standard cautions and potential benefits were discussed. Patient/Guardian consented to the start/continuatio n of the treatment. Educated on new antidepressant. Made aware of Black Box Warning [...] provided Insight oriented/ Behavior modifying/ Supportive therapy . Patient educated on antipsychotic dosing schedule and [...] patient crisis plan. Provided crisis hotline number. [facility] has good support system. Made aware to contact office if has an increase in suicidal thoughts. If outside of office hours, patient to go to the ER. Patient will call the office with any questions or concerns. 08/29/2024 Inattention (ICD-10 - R41.840) 08/31/2024 Bipolar depression (ICD-10 - F31.30) Patient will continue current treatment plan. Patient verbally acknowledges understanding instructions including medication education and has no further questions comments or concerns at this time. . Follow in 1 Month . Recommended treatment for Bipolar disorder includes FDA approved and OFF label medications: second generation antipsychotics and mood stabilizers. Second generation antipsychotic medications can cause headache, drowsiness, agitation, dizziness, nausea, or extrapyramidal symptoms such as tremors, muscle spasms, slowness of movement or jerking of muscles. . Stable . The patient verbalizes understanding with all questions answered thoroughly and is in agreement with treatment plan. . Continue current treatment. Call for problems . GOALS: . Maintain medication regimen . _Improve mood stability . _Improve anxiety control . _Improve social and interpersonal functioning . Patient/Guardian will call sooner if symptoms worsen. Patient understands to go to ER if needed if symptoms become severe. . Crisis Intervention plan was discussed and agreed upon. Patient/Guardian will call 911 in case of emergency. Emergency contact information was provided to the patient/guardian. . Pharmacological management: . Alternative medication plans were discussed with the patient/guardian. All relevant side effects and potential adverse effects were discussed with the patient/guardian. Standard cautions and potential benefits were discussed. Patient/Guardian consented to the start/continuatio n of the treatment. 10/02/2024 Bipolar depression (ICD-10 - F31.30) CancelRx Response got Denied on 2024-10-02 14:55:41 for 'LaMICtal 200 MG Tablet'Pharmacy Notes: Prescription not found. Contact Pharmacy by other means Patient will continue current treatment plan. Patient verbally acknowledges understanding instructions including medication education and has no further questions comments or concerns at this time. . . Recommended treatment for Bipolar disorder includes FDA approved and OFF label medications: second generation antipsychotics and mood stabilizers. Discussed life threatening side effect of Lamotrigine. Pt is to monitor for new skin rashes or sensation of a sunburn or itchiness or redness, mouth sores or sores in mucus membranes, and call provider immediately and or go to ER, and stop the medication. Second generation antipsychotic medications can cause headache, drowsiness, agitation, dizziness, nausea, or extrapyramidal symptoms such as tremors, muscle spasms, slowness of movement or jerking of muscles. . Stable . The patient verbalizes understanding with all questions answered thoroughly and is in agreement with treatment plan. . Continue current treatment. Call for problems . GOALS: . Maintain medication regimen . _Improve mood stability . _Improve anxiety control . _Improve social and interpersonal functioning . Patient/Guardian will call sooner if symptoms worsen. Patient understands to go to ER if needed if symptoms become severe. . Crisis Intervention plan was discussed and agreed upon. Patient/Guardian will call 911 in case of emergency. Emergency contact information was provided to the patient/guardian. . Pharmacological management: . Alternative medication plans were discussed with the patient/guardian. All relevant side effects and potential adverse effects were discussed with the patient/guardian. Standard cautions and potential benefits were discussed. Patient/Guardian consented to the start/continuatio n of the treatment. 10/02/2024 Inattention (ICD-10 - R41.840) . FDA approved [...] to the patient/guardian. . [place] . 10/02/2024 Bipolar depression (ICD-10 - F31.30) 10/16/2024 Psychophysiological insomnia (ICD-10 - F51.04) insomnia or trouble falling asleep or staying asleep, can be caused by many different things such as untreated sleep apnea (complete sleep study), anxiety, depression, stress (practice mindfulness, essential oils, melatonin, sleep hygiene, meditation, chammomile tea), poor sleep habits, other medical conditions or medications. The best way to treat insomnia is to treat the cause. In general, we can all benefit from better sleep hygiene. Some recommendations to help you improve your sleep hygiene so you can fall asleep, stay asleep and wake up feeling refreshed include: - keep a routine bedtime and rise time. -avoid caffeine in the late afternoon/early evening, including chocolate -keep your bedroom technology free. Avoid TV and electronics one hour prior to bedtime. Don't have a clock visible in your room. -set up a worry time in the late afternoon to cope with worries and plan for the following day. -avoid naps. If necessary, keep naps under 15-20mins -develop a relaxing routine before bed -keep the bedroom for sleeping nad intimacy only -make your bedroom dark, quiet and comfrotable temperature -do not exercise right before bed. Do get 20-30 minutes of exercise during the day. Pharmacotherapy options: (pt should deny snoring, pauses in breathing during sleep, risk for falls, sleep walking, forning fog or confusion on these meds). REFER FOR A SLEEP STUDY! -Melatonin up to 10mg qhs -Valerian root/chamomile tea -Seroquel -Zolpidem Tartrate (Ambien) 12.5mg oral tablet ER. take 1 tablet at bedtime PRN for sleep (check [place], complete controlled substance agreement (CSA) contract. Complete urine drug screen (UDS). Discuss safety guidelines of sleep aides). *use caution -Eszopiclone (Lunesta) check [place], complete controlled substance agreement (CSA) contract. Complete urine drug screen (UDS). Discuss safety guidelines of sleep aides). *use caution -Hydroxyzine (50-100mg qhs) 30-60min before bed -Trazodone 25-50mg qhs Max 200mg/d (brand names Desyrel, Oleptro) (can use in conjunction with SSRI for mood stabilization), taper off dose if high dose used LT - Doxepin 6mg PO qhs (3mg in elderly pts) (anxiolytic, TCA) PTSD/nightmares: - Prazosin Safety guidelines with taking sleep aids: - rise slowly if you ahve been sitting or lyind down - avoid alcohol while taking thid drug - this drug may cause sleepiness or lwoer alertness. this may lead to falls - some people taking this drug have done thing like sleepwalking, sleep driving, making and eating food, or having sex...rarely, this has led to severe injuries or . Most of hte time people do not remember doing these things. IF this happens, stop taking this drug and tell your provider right away. HPI of insomnia: - naps? - sleep duration - sleep initiation, problems going to sleep? - sleep maintenance, problematic awakeings? - problems staying asleep - breathing during sleep: snoring? - sleep positioning: - hypersomnia sx? - legs at night (RLS?): - movements in sleep: - parasomnia: 10/16/2024 Bipolar depression (ICD-10 - F31.30) Patient will continue current treatment plan. Patient verbally acknowledges understanding instructions including medication education and has no further questions comments or concerns at this time. . Follow in 1 Month . Recommended treatment for Bipolar disorder includes FDA approved and OFF label medications: second generation antipsychotics and mood stabilizers. Second generation antipsychotic medications can cause headache, drowsiness, agitation, dizziness, nausea, or extrapyramidal symptoms such as tremors, muscle spasms, slowness of movement or jerking of muscles. . Stable . The patient verbalizes understanding with all questions answered thoroughly and is in agreement with treatment plan. . Continue current treatment. Call for problems . GOALS: . Maintain medication regimen . _Improve mood stability . _Improve anxiety control . _Improve social and interpersonal functioning . Patient/Guardian will call sooner if symptoms worsen. Patient understands to go to ER if needed if symptoms become severe. . Crisis Intervention plan was discussed and agreed upon. Patient/Guardian will call 911 in case of emergency. Emergency contact information was provided to the patient/guardian. . Pharmacological management: . Alternative medication plans were discussed with the patient/guardian. All relevant side effects and potential adverse effects were discussed with the patient/guardian. Standard cautions and potential benefits were discussed. Patient/Guardian consented to the start/continuatio n of the treatment. Educated on antidepressant. Made aware of Black [...] provided Insight oriented/ Behavior modifying/ Supportive therapy . 11/02/2024 Bipolar depression (ICD-10 - F31.30) Patient educated on antipsychotic dosing schedule and [...] patient crisis plan. Provided crisis hotline number. [facility] has good support system. Made aware to contact office if has an increase in suicidal thoughts. If outside of office hours, patient to go to the ER. Patient will call the office with any questions or concerns. Educated on antidepressant. Made aware of Black [...] provided Insight oriented/ Behavior modifying/ Supportive therapy . 11/02/2024 Anxiety (ICD-10 - F41.9) 11/15/2024 Psychophysiological insomnia (ICD-10 - F51.04) 11/22/2024 Bipolar depression (ICD-10 - F31.30) Educated on [...] patient crisis plan. Provided crisis hotline number. [facility] has good support system. Made aware to contact office if has an increase in suicidal thoughts. If outside of office hours, patient to go to the ER. Patient will call the office with any questions or concerns. . 12/12/2024 Bipolar depression (ICD-10 - F31.30) 12/13/2024 Bipolar depression (ICD-10 - F31.30) Educated on [...] patient crisis plan. Provided crisis hotline number. [facility] has good support system. Made aware to contact office if has an increase in suicidal thoughts. If outside of office hours, patient to go to the ER. Patient will call the office with any questions or concerns. . 01/16/2025 Psychophysiological insomnia (ICD-10 - F51.04) 01/18/2025 Bipolar depression (ICD-10 - F31.30) Patient educated on antipsychotic dosing schedule and [...] patient crisis plan. Provided crisis hotline number. [facility] has good support system. Made aware to contact office if has an increase in suicidal thoughts. If outside of office hours, patient to go to the ER. Patient will call the office with any questions or concerns. Educated on antidepressant. Made aware of Black [...] provided Insight oriented/ Behavior modifying/ Supportive therapy . 01/23/2025 Bipolar depression (ICD-10 - F31.30) 03/19/2025 Inattention (ICD-10 - R41.840) 03/30/2025 Psychophysiological insomnia (ICD-10 - F51.04) 09/26/2024 Inattention (ICD-10 - R41.840) 04/06/2024 Anxiety (ICD-10 - F41.9) Patient will continue Buspar to help with anxiety. Discussed dosing/side effects. She will continue Zyprexa to see if symptoms improve. Second generation antipsychotic medications can cause headache, drowsiness, agitation, dizziness, nausea, or extrapyramidal symptoms such as tremors, muscle spasms, slowness of movement or jerking of muscles. She will follow up in 3 weeks to reassess. . 03/30/2025 Bipolar depression (ICD-10 - F31.30) Educated [...] patient crisis plan. Provided crisis hotline number. [facility] has good support system. Made aware to contact office if has an increase in suicidal thoughts. If outside of office hours, patient to go to the ER. Patient will call the office with any questions or concerns. . 02/16/2025 Anxiety (ICD-10 - F41.9) clonidine: Encouraged to call office or report to the if the patient experiences dizziness or lightheadedness Patient educated on antipsychotic dosing schedule and [...] patient crisis plan. Provided crisis hotline number. [facility] has good support system. Made aware to contact office if has an increase in suicidal thoughts. If outside of office hours, patient to go to the ER. Patient will call the office with any questions or concerns. 02/16/2025 Bipolar depression (ICD-10 - F31.30) Patient educated on antipsychotic dosing schedule and [...] patient crisis plan. Provided crisis hotline number. [facility] has good support system. Made aware to contact office if has an increase in suicidal thoughts. If outside of office hours, patient to go to the ER. Patient will call the office with any questions or concerns. Educated on antidepressant. Made aware of Black [...] provided Insight oriented/ Behavior modifying/ Supportive therapy . 02/08/2025 Bipolar depression (ICD-10 - F31.30) 01/08/2025 Bipolar depression (ICD-10 - F31.30) 08/04/2024 Bipolar depression (ICD-10 - F31.30) Patient will continue current treatment plan. Patient verbally acknowledges understanding instructions including medication education and has no further questions comments or concerns at this time. . Follow in 1 Month . Recommended treatment for Bipolar disorder includes FDA approved and OFF label medications: second generation antipsychotics and mood stabilizers. Discussed life threatening side effect of Lamotrigine. Pt is to monitor for new skin rashes or sensation of a sunburn or itchiness or redness, mouth sores or sores in mucus membranes, and call provider immediately and or go to ER, and stop the medication. Second generation antipsychotic medications can cause headache, drowsiness, agitation, dizziness, nausea, or extrapyramidal symptoms such as tremors, muscle spasms, slowness of movement or jerking of muscles. . Stable . The patient verbalizes understanding with all questions answered thoroughly and is in agreement with treatment plan. . Continue current treatment. Call for problems . GOALS: . Maintain medication regimen . _Improve mood stability . _Improve anxiety control . _Improve social and interpersonal functioning . Patient/Guardian will call sooner if symptoms worsen. Patient understands to go to ER if needed if symptoms become severe. . Crisis Intervention plan was discussed and agreed upon. Patient/Guardian will call 911 in case of emergency. Emergency contact information was provided to the patient/guardian. . Pharmacological management: . Alternative medication plans were discussed with the patient/guardian. All relevant side effects and potential adverse effects were discussed with the patient/guardian. Standard cautions and potential benefits were discussed. Patient/Guardian consented to the start/continuatio n of the treatment. 08/04/2024 Inattention (ICD-10 - R41.840) . FDA approved [...] provided to the patient/guardian. . OARRS reviewed Educated on new antidepressant. Made aware of Black Box Warning [...] provided Insight oriented/ Behavior modifying/ Supportive therapy . . 01/08/2025 Anxiety (ICD-10 - F41.9) 04/06/2024 Inattention (ICD-10 - R41.840) FDA approved stimulant medication for this age [...] presentation of new symptoms or behaviors. . She will increase Vyvanse. Discussed dosing/side effects. tolerating meds well, compliant; call for problems; questions answered satisfactorily, agreeable to treatment plan . GOALS: . Maintain medication regimen _Improve social and interpersonal functioning _Improve attention and or hyperactivity . follow up 3 weeks . Crisis Intervention plan was discussed and agreed upon. Patient/Guardian will call 911 in case of emergency. Emergency contact information was provided to the patient/guardian . . OARRS reviewed . 02/08/2025 Anxiety (ICD-10 - F41.9) 02/16/2025 Psychophysiological insomnia (ICD-10 - F51.04) 03/30/2025 Inattention (ICD-10 - R41.840) . FDA [...] reviewed . 03/30/2025 Anxiety (ICD-10 - F41.9) 01/18/2025 Inattention (ICD-10 - R41.840) . FDA approved [...] to the patient/guardian. . OARRS reviewed . 01/23/2025 Anxiety (ICD-10 - F41.9) 01/16/2025 Inattention (ICD-10 - R41.840) 12/13/2024 Inattention (ICD-10 - R41.840) . FDA approved [...] functioning _Improve attention and or hyperactivity . . Crisis Intervention plan was discussed and agreed upon. Patient/Guardian will call 911 in case of emergency. Emergency contact information was provided to the patient/guardian. . OARRS reviewed . . 11/22/2024 Inattention (ICD-10 - R41.840) . FDA approved [...] functioning _Improve attention and or hyperactivity . . Crisis Intervention plan was discussed and agreed upon. Patient/Guardian will call 911 in case of emergency. Emergency contact information was provided to the patient/guardian. . OARRS reviewed . 11/02/2024 Inattention (ICD-10 - R41.840) . FDA approved [...] functioning _Improve attention and or hyperactivity . . Crisis Intervention plan was discussed and agreed upon. Patient/Guardian will call 911 in case of emergency. Emergency contact information was provided to the patient/guardian. . OARRS reviewed . 10/16/2024 Inattention (ICD-10 - R41.840) . FDA approved [...] functioning _Improve attention and or hyperactivity . . Crisis Intervention plan was discussed and agreed upon. Patient/Guardian will call 911 in case of emergency. Emergency contact information was provided to the patient/guardian. . OARRS reviewed . 08/31/2024 Inattention (ICD-10 - R41.840) . FDA approved [...] to the patient/guardian. . OARRS reviewed . 10/02/2024 Anxiety (ICD-10 - F41.9) clonidine: Encouraged to call office or report to the if the patient experiences dizziness or lightheadedness 07/14/2024 Inattention (ICD-10 - R41.840) . FDA approved [...] functioning _Improve attention and or hyperactivity . . Crisis Intervention plan was discussed and agreed upon. Patient/Guardian will call 911 in case of emergency. Emergency contact information was provided to the patient/guardian. . OARRS reviewed . 06/15/2024 Inattention (ICD-10 - R41.840) 04/27/2024 Inattention (ICD-10 - R41.840) FDA approved stimulant medication for this age [...] presentation of new symptoms or behaviors. . She will continue Vyvanse. Discussed dosing/side effects. tolerating meds well, compliant; call for problems; questions answered satisfactorily, agreeable to treatment plan . GOALS: . Maintain medication regimen _Improve social and interpersonal functioning _Improve attention and or hyperactivity . follow up 3 weeks . Crisis Intervention plan was discussed and agreed upon. Patient/Guardian will call 911 in case of emergency. Emergency contact information was provided to the patient/guardian . . OARRS reviewed . 05/24/2024 Inattention (ICD-10 - R41.840) 04/27/2024 Bipolar depression (ICD-10 - F31.30) She will continue Zyprexa. She will add Rexulti 0.5mg to see if mood improves. 06/15/2024 Anxiety (ICD-10 - F41.9) 05/24/2024 Anxiety (ICD-10 - F41.9) 08/31/2024 Anxiety (ICD-10 - F41.9) Recommended treatment is: _ Buspar is a medication used for anxiety. The medication can cause dizziness, sedation, and restless. Please contact the office if you experience these symptoms. The medication typically takes 2-4 weeks to achieve efficacy. Made aware to contact office if symptoms worsen. Please monitor for worsening of symptoms, especially suicidal ideations or morbid thoughts, and call office and or go to the emergency department immediately. Pt does not endorse exhibiting symptoms aligning with nidia. . The patient verbalizes understanding with all questions answered thoroughly and is in agreement with treatment plan. . Continue current treatment plan Patient/Guardian will call sooner if symptoms worsen. Patient understands to go to ER if needed if symptoms become severe. Crisis Intervention plan was discussed and agreed upon. Patient/Guardian will call 911 in case of emergency. Emergency contact information was provided to the patient/guardian. 07/14/2024 Psychophysiological insomnia (ICD-10 - F51.04) . Discussed seriousness of taking benzodiazepine medication daily and as needed, risks and [...] for any concerns about your medications. . 10/02/2024 Psychophysiological insomnia (ICD-10 - F51.04) Recommended treatment is: _ FDA approved medication for this age group include Selective Serotonin Reuptake Inhibitors (SSRI) and Selective Norepinephrine Reuptake Inhibitors (SNRI). . Selective serotonin reuptake inhibitors? can cause nausea, headache, upset stomach, diarrhea, constipation, anxiety, irritability, and sexual dysfunction. . Please monitor for worsening of symptoms, especially suicidal ideations or morbid thoughts, and call office and or go to the emergency department immediately. Pt does not endorse exhibiting symptoms aligning with nidia. . The patient verbalizes understanding with all questions answered thoroughly and is in agreement with treatment plan. . Continue current treatment plan Patient/Guardian will call sooner if symptoms worsen. Patient understands to go to ER if needed if symptoms become severe. Crisis Intervention plan was discussed and agreed upon. Patient/Guardian will call 911 in case of emergency. Emergency contact information was provided to the patient/guardian. . Informed consent obtained: YES, we discussed the diagnosis/diagnos es, the treatment options, treatment(s) recommended vs. no treatment. We discussed risks and benefits of treatment options, treatment recommendations vs. no treatment. . . Pt is to continue current treatment plan Has good tolerability and compliance with medication Call for problems All questions and concerns discussed . 10/16/2024 Anxiety (ICD-10 - F41.9) clonidine: Encouraged to call office or report to the if the patient experiences dizziness or lightheadedness . Informed consent obtained: YES, we discussed the diagnosis/diagnos es, the treatment options, treatment(s) recommended vs. no treatment. We discussed risks and benefits of treatment options, treatment recommendations vs. no treatment. . . Pt is to continue current treatment plan Has good tolerability and compliance with medication Call for problems All questions and concerns discussed . . Pt is to continue current treatment plan Has good tolerability and compliance with medication Call for problems All questions and concerns discussed . 11/02/2024 Anxiety (ICD-10 - F41.9) clonidine: Encouraged to call office or report to the if the patient experiences dizziness or lightheadedness 01/16/2025 Anxiety (ICD-10 - F41.9) 11/22/2024 Psychophysiological insomnia (ICD-10 - F51.04) insomnia or trouble falling asleep or staying asleep, can be caused by many different things such as untreated sleep apnea (complete sleep study), anxiety, depression, stress (practice mindfulness, essential oils, melatonin, sleep hygiene, meditation, chammomile tea), poor sleep habits, other medical conditions or medications. The best way to treat insomnia is to treat the cause. In general, we can all benefit from better sleep hygiene. Some recommendations to help you improve your sleep hygiene so you can fall asleep, stay asleep and wake up feeling refreshed include: - keep a routine bedtime and rise time. -avoid caffeine in the late afternoon/early evening, including chocolate -keep your bedroom technology free. Avoid TV and electronics one hour prior to bedtime. Don't have a clock visible in your room. -set up a worry time in the late afternoon to cope with worries and plan for the following day. -avoid naps. If necessary, keep naps under 15-20mins -develop a relaxing routine before bed -keep the bedroom for sleeping nad intimacy only -make your bedroom dark, quiet and comfrotable temperature -do not exercise right before bed. Do get 20-30 minutes of exercise during the day. Pharmacotherapy options: (pt should deny snoring, pauses in breathing during sleep, risk for falls, sleep walking, forning fog or confusion on these meds). REFER FOR A SLEEP STUDY! -Melatonin up to 10mg qhs -Valerian root/chamomile tea -Seroquel -Zolpidem Tartrate (Ambien) 12.5mg oral tablet ER. take 1 tablet at bedtime PRN for sleep (check [place], complete controlled substance agreement (CSA) contract. Complete urine drug screen (UDS). Discuss safety guidelines of sleep aides). *use caution -Eszopiclone (Lunesta) check [place]AR[place], complete controlled substance agreement (CSA) contract. Complete urine drug screen (UDS). Discuss safety guidelines of sleep aides). *use caution -Hydroxyzine (50-100mg qhs) 30-60min before bed -Trazodone 25-50mg qhs Max 200mg/d (brand names Desyrel, Oleptro) (can use in conjunction with SSRI for mood stabilization), taper off dose if high dose used LT - Doxepin 6mg PO qhs (3mg in elderly pts) (anxiolytic, TCA) PTSD/nightmares: - Prazosin Safety guidelines with taking sleep aids: - rise slowly if you ahve been sitting or lyind down - avoid alcohol while taking thid drug - this drug may cause sleepiness or lwoer alertness. this may lead to falls - some people taking this drug have done thing like sleepwalking, sleep driving, making and eating food, or having sex...rarely, this has led to severe injuries or . Most of hte time people do not remember doing these things. IF this happens, stop taking this drug and tell your provider right away. HPI of insomnia: - naps? - sleep duration - sleep initiation, problems going to sleep? - sleep maintenance, problematic awakeings? - problems staying asleep - breathing during sleep: snoring? - sleep positioning: - hypersomnia sx? - legs at night (RLS?): - movements in sleep: - parasomnia: 12/13/2024 Psychophysiological insomnia (ICD-10 - F51.04) insomnia or trouble falling asleep or staying asleep, can be caused by many different things such as untreated sleep apnea (complete sleep study), anxiety, depression, stress (practice mindfulness, essential oils, melatonin, sleep hygiene, meditation, chammomile tea), poor sleep habits, other medical conditions or medications. The best way to treat insomnia is to treat the cause. In general, we can all benefit from better sleep hygiene. Some recommendations to help you improve your sleep hygiene so you can fall asleep, stay asleep and wake up feeling refreshed include: - keep a routine bedtime and rise time. -avoid caffeine in the late afternoon/early evening, including chocolate -keep your bedroom technology free. Avoid TV and electronics one hour prior to bedtime. Don't have a clock visible in your room. -set up a worry time in the late afternoon to cope with worries and plan for the following day. -avoid naps. If necessary, keep naps under 15-20mins -develop a relaxing routine before bed -keep the bedroom for sleeping nad intimacy only -make your bedroom dark, quiet and comfrotable temperature -do not exercise right before bed. Do get 20-30 minutes of exercise during the day. Pharmacotherapy options: (pt should deny snoring, pauses in breathing during sleep, risk for falls, sleep walking, forning fog or confusion on these meds). REFER FOR A SLEEP STUDY! -Melatonin up to 10mg qhs -Valerian root/chamomile tea -Seroquel -Zolpidem Tartrate (Ambien) 12.5mg oral tablet ER. take 1 tablet at bedtime PRN for sleep (check [place]AR[place], complete controlled substance agreement (CSA) contract. Complete urine drug screen (UDS). Discuss safety guidelines of sleep aides). *use caution -Eszopiclone (Lunesta) check [place]AR[place], complete controlled substance agreement (CSA) contract. Complete urine drug screen (UDS). Discuss safety guidelines of sleep aides). *use caution -Hydroxyzine (50-100mg qhs) 30-60min before bed -Trazodone 25-50mg qhs Max 200mg/d (brand names Desyrel, Oleptro) (can use in conjunction with SSRI for mood stabilization), taper off dose if high dose used LT - Doxepin 6mg PO qhs (3mg in elderly pts) (anxiolytic, TCA) PTSD/nightmares: - Prazosin Safety guidelines with taking sleep aids: - rise slowly if you ahve been sitting or lyind down - avoid alcohol while taking thid drug - this drug may cause sleepiness or lwoer alertness. this may lead to falls - some people taking this drug have done thing like sleepwalking, sleep driving, making and eating food, or having sex...rarely, this has led to severe injuries or . Most of hte time people do not remember doing these things. IF this happens, stop taking this drug and tell your provider right away. HPI of insomnia: - naps? - sleep duration - sleep initiation, problems going to sleep? - sleep maintenance, problematic awakeings? - problems staying asleep - breathing during sleep: snoring? - sleep positioning: - hypersomnia sx? - legs at night (RLS?): - movements in sleep: - parasomnia: 01/18/2025 Anxiety (ICD-10 - F41.9) Patient educated on antipsychotic dosing schedule and [...] patient crisis plan. Provided crisis hotline number. [facility] has good support system. Made aware to contact office if has an increase in suicidal thoughts. If outside of office hours, patient to go to the ER. Patient will call the office with any questions or concerns. clonidine: Encouraged to call office or report to the if the patient experiences dizziness or lightheadedness 04/06/2024 Bipolar depression (ICD-10 - F31.30) She will continue Zyprexa. 03/30/2025 Anxiety (ICD-10 - F41.9) clonidine: Encouraged to call office or report to the if the patient experiences dizziness or lightheadedness 02/16/2025 Inattention (ICD-10 - R41.840) . FDA approved [...] functioning _Improve attention and or hyperactivity . . Crisis Intervention plan was discussed and agreed upon. Patient/Guardian will call 911 in case of emergency. Emergency contact information was provided to the patient/guardian. . OARRS reviewed . Informed consent obtained: YES, we discussed the diagnosis/diagnos es, the treatment options, treatment(s) recommended vs. no treatment. We discussed risks and benefits of treatment options, treatment recommendations vs. no treatment. . . . Pt is to continue current treatment plan Has good tolerability and compliance with medication Call for problems All questions and concerns discussed . 01/08/2025 History of posttraumatic stress disorder (PTSD) (ICD-10 - Z86.59) 02/08/2025 History of posttraumatic stress disorder (PTSD) (ICD-10 - Z86.59) 08/04/2024 Psychophysiological insomnia (ICD-10 - F51.04) insomnia or trouble falling asleep or staying asleep, can be caused by many different things such as untreated sleep apnea (complete sleep study), anxiety, depression, stress (practice mindfulness, essential oils, melatonin, sleep hygiene, meditation, chammomile tea), poor sleep habits, other medical conditions or medications. The best way to treat insomnia is to treat the cause. In general, we can all benefit from better sleep hygiene. Some recommendations to help you improve your sleep hygiene so you can fall asleep, stay asleep and wake up feeling refreshed include: - keep a routine bedtime and rise time. -avoid caffeine in the late afternoon/early evening, including chocolate -keep your bedroom technology free. Avoid TV and electronics one hour prior to bedtime. Don't have a clock visible in your room. -set up a worry time in the late afternoon to cope with worries and plan for the following day. -avoid naps. If necessary, keep naps under 15-20mins -develop a relaxing routine before bed -keep the bedroom for sleeping nad intimacy only -make your bedroom dark, quiet and comfrotable temperature -do not exercise right before bed. Do get 20-30 minutes of exercise during the day. Pharmacotherapy options: (pt should deny snoring, pauses in breathing during sleep, risk for falls, sleep walking, forning fog or confusion on these meds). REFER FOR A SLEEP STUDY! -Melatonin up to 10mg qhs -Valerian root/chamomile tea -Seroquel -Zolpidem Tartrate (Ambien) 12.5mg oral tablet ER. take 1 tablet at bedtime PRN for sleep (check OARRS, complete controlled substance agreement (CSA) contract. Complete urine drug screen (UDS). Discuss safety guidelines of sleep aides). *use caution -Eszopiclone (Lunesta) check OARRS, complete controlled substance agreement (CSA) contract. Complete urine drug screen (UDS). Discuss safety guidelines of sleep aides). *use caution -Hydroxyzine (50-100mg qhs) 30-60min before bed -Trazodone 25-50mg qhs Max 200mg/d (brand names Desyrel, Oleptro) (can use in conjunction with SSRI for mood stabilization), taper off dose if high dose used LT - Doxepin 6mg PO qhs (3mg in elderly pts) (anxiolytic, TCA) PTSD/nightmares: - Prazosin Safety guidelines with taking sleep aids: - rise slowly if you ahve been sitting or lyind down - avoid alcohol while taking thid drug - this drug may cause sleepiness or lwoer alertness. this may lead to falls - some people taking this drug have done thing like sleepwalking, sleep driving, making and eating food, or having sex...rarely, this has led to severe injuries or . Most of hte time people do not remember doing these things. IF this happens, stop taking this drug and tell your provider right away. HPI of insomnia: - naps? - sleep duration - sleep initiation, problems going to sleep? - sleep maintenance, problematic awakeings? - problems staying asleep - breathing during sleep: snoring? - sleep positioning: - hypersomnia sx? - legs at night (RLS?): - movements in sleep: - parasomnia: . Discussed seriousness of taking hypnotics medication daily and as needed, risks and [...] for any concerns about your medications. . 08/04/2024 Anxiety (ICD-10 - F41.9) Recommended treatment is: _ Buspar is a medication used for anxiety. The medication can cause dizziness, sedation, and restless. Please contact the office if you experience these symptoms. The medication typically takes 2-4 weeks to achieve efficacy. Made aware to contact office if symptoms worsen. Please monitor for worsening of symptoms, especially suicidal ideations or morbid thoughts, and call office and or go to the emergency department immediately. Pt does not endorse exhibiting symptoms aligning with nidia. . The patient verbalizes understanding with all questions answered thoroughly and is in agreement with treatment plan. . Continue current treatment plan Patient/Guardian will call sooner if symptoms worsen. Patient understands to go to ER if needed if symptoms become severe. Crisis Intervention plan was discussed and agreed upon. Patient/Guardian will call 911 in case of emergency. Emergency contact information was provided to the patient/guardian. 03/30/2025 Psychophysiological insomnia (ICD-10 - F51.04) . [...] Informed consent obtained: YES, we discussed the diagnosis/diagnos es, the treatment options, treatment(s) recommended vs. no treatment. We discussed risks and benefits of treatment options, treatment recommendations vs. no treatment. . . Pt is to continue current treatment plan Has good tolerability and compliance with medication Call for problems All questions and concerns discussed . . Informed consent obtained: YES, we discussed the diagnosis/diagnos es, the treatment options, treatment(s) recommended vs. no treatment. We discussed risks and benefits of treatment options, treatment recommendations vs. no treatment. . . Pt is to continue current treatment plan Has good tolerability and compliance with medication Call for problems All questions and concerns discussed . 04/06/2024 History of posttraumatic stress disorder (PTSD) (ICD-10 - Z86.59) Will continue therapy. 01/18/2025 Psychophysiological insomnia (ICD-10 - F51.04) insomnia or trouble falling asleep or staying asleep, can be caused by many different things such as untreated sleep apnea (complete sleep study), anxiety, depression, stress (practice mindfulness, essential oils, melatonin, sleep hygiene, meditation, chammomile tea), poor sleep habits, other medical conditions or medications. The best way to treat insomnia is to treat the cause. In general, we can all benefit from better sleep hygiene. Some recommendations to help you improve your sleep hygiene so you can fall asleep, stay asleep and wake up feeling refreshed include: - keep a routine bedtime and rise time. -avoid caffeine in the late afternoon/early evening, including chocolate -keep your bedroom technology free. Avoid TV and electronics one hour prior to bedtime. Don't have a clock visible in your room. -set up a worry time in the late afternoon to cope with worries and plan for the following day. -avoid naps. If necessary, keep naps under 15-20mins -develop a relaxing routine before bed -keep the bedroom for sleeping nad intimacy only -make your bedroom dark, quiet and comfrotable temperature -do not exercise right before bed. Do get 20-30 minutes of exercise during the day. Pharmacotherapy options: (pt should deny snoring, pauses in breathing during sleep, risk for falls, sleep walking, forning fog or confusion on these meds). REFER FOR A SLEEP STUDY! -Melatonin up to 10mg qhs -Valerian root/chamomile tea -Seroquel -Zolpidem Tartrate (Ambien) 12.5mg oral tablet ER. take 1 tablet at bedtime PRN for sleep (check [place], complete controlled substance agreement (CSA) contract. Complete urine drug screen (UDS). Discuss safety guidelines of sleep aides). *use caution -Eszopiclone (Lunesta) check [place], complete controlled substance agreement (CSA) contract. Complete urine drug screen (UDS). Discuss safety guidelines of sleep aides). *use caution -Hydroxyzine (50-100mg qhs) 30-60min before bed -Trazodone 25-50mg qhs Max 200mg/d (brand names Desyrel, Oleptro) (can use in conjunction with SSRI for mood stabilization), taper off dose if high dose used LT - Doxepin 6mg PO qhs (3mg in elderly pts) (anxiolytic, TCA) PTSD/nightmares: - Prazosin Safety guidelines with taking sleep aids: - rise slowly if you ahve been sitting or lyind down - avoid alcohol while taking thid drug - this drug may cause sleepiness or lwoer alertness. this may lead to falls - some people taking this drug have done thing like sleepwalking, sleep driving, making and eating food, or having sex...rarely, this has led to severe injuries or . Most of hte time people do not remember doing these things. IF this happens, stop taking this drug and tell your provider right away. HPI of insomnia: - naps? - sleep duration - sleep initiation, problems going to sleep? - sleep maintenance, problematic awakeings? - problems staying asleep - breathing during sleep: snoring? - sleep positioning: - hypersomnia sx? - legs at night (RLS?): - movements in sleep: - parasomnia: . Informed consent obtained: YES, we discussed the diagnosis/diagnos es, the treatment options, treatment(s) recommended vs. no treatment. We discussed risks and benefits of treatment options, treatment recommendations vs. no treatment. . . Pt is to continue current treatment plan Has good tolerability and compliance with medication Call for problems All questions and concerns discussed . 12/13/2024 Anxiety (ICD-10 - F41.9) clonidine: Encouraged to call office or report to the if the patient experiences dizziness or lightheadedness . Informed consent obtained: YES, we discussed the diagnosis/diagnos es, the treatment options, treatment(s) recommended vs. no treatment. We discussed risks and benefits of treatment options, treatment recommendations vs. no treatment. . . Pt is to continue current treatment plan Has good tolerability and compliance with medication Call for problems All questions and concerns discussed . 11/02/2024 Psychophysiological insomnia (ICD-10 - F51.04) insomnia or trouble falling asleep or staying asleep, can be caused by many different things such as untreated sleep apnea (complete sleep study), anxiety, depression, stress (practice mindfulness, essential oils, melatonin, sleep hygiene, meditation, chammomile tea), poor sleep habits, other medical conditions or medications. The best way to treat insomnia is to treat the cause. In general, we can all benefit from better sleep hygiene. Some recommendations to help you improve your sleep hygiene so you can fall asleep, stay asleep and wake up feeling refreshed include: - keep a routine bedtime and rise time. -avoid caffeine in the late afternoon/early evening, including chocolate -keep your bedroom technology free. Avoid TV and electronics one hour prior to bedtime. Don't have a clock visible in your room. -set up a worry time in the late afternoon to cope with worries and plan for the following day. -avoid naps. If necessary, keep naps under 15-20mins -develop a relaxing routine before bed -keep the bedroom for sleeping nad intimacy only -make your bedroom dark, quiet and comfrotable temperature -do not exercise right before bed. Do get 20-30 minutes of exercise during the day. Pharmacotherapy options: (pt should deny snoring, pauses in breathing during sleep, risk for falls, sleep walking, forning fog or confusion on these meds). REFER FOR A SLEEP STUDY! -Melatonin up to 10mg qhs -Valerian root/chamomile tea -Seroquel -Zolpidem Tartrate (Ambien) 12.5mg oral tablet ER. take 1 tablet at bedtime PRN for sleep (check OARRS, complete controlled substance agreement (CSA) contract. Complete urine drug screen (UDS). Discuss safety guidelines of sleep aides). *use caution -Eszopiclone (Lunesta) check [place]AR[place], complete controlled substance agreement (CSA) contract. Complete urine drug screen (UDS). Discuss safety guidelines of sleep aides). *use caution -Hydroxyzine (50-100mg qhs) 30-60min before bed -Trazodone 25-50mg qhs Max 200mg/d (brand names Desyrel, Oleptro) (can use in conjunction with SSRI for mood stabilization), taper off dose if high dose used LT - Doxepin 6mg PO qhs (3mg in elderly pts) (anxiolytic, TCA) PTSD/nightmares: - Prazosin Safety guidelines with taking sleep aids: - rise slowly if you ahve been sitting or lyind down - avoid alcohol while taking thid drug - this drug may cause sleepiness or lwoer alertness. this may lead to falls - some people taking this drug have done thing like sleepwalking, sleep driving, making and eating food, or having sex...rarely, this has led to severe injuries or . Most of hte time people do not remember doing these things. IF this happens, stop taking this drug and tell your provider right away. HPI of insomnia: - naps? - sleep duration - sleep initiation, problems going to sleep? - sleep maintenance, problematic awakeings? - problems staying asleep - breathing during sleep: snoring? - sleep positioning: - hypersomnia sx? - legs at night (RLS?): - movements in sleep: - parasomnia: . Informed consent obtained: YES, we discussed the diagnosis/diagnos es, the treatment options, treatment(s) recommended vs. no treatment. We discussed risks and benefits of treatment options, treatment recommendations vs. no treatment. . . Pt is to continue current treatment plan Has good tolerability and compliance with medication Call for problems All questions and concerns discussed . 11/22/2024 Anxiety (ICD-10 - F41.9) clonidine: Encouraged to call office or report to the if the patient experiences dizziness or lightheadedness . Informed consent obtained: YES, we discussed the diagnosis/diagnos es, the treatment options, treatment(s) recommended vs. no treatment. We discussed risks and benefits of treatment options, treatment recommendations vs. no treatment. . . Pt is to continue current treatment plan Has good tolerability and compliance with medication Call for problems All questions and concerns discussed . 07/14/2024 Anxiety (ICD-10 - F41.9) Buspar is a medication used for anxiety. The medication can cause dizziness, sedation, and restless. Please contact the office if you experience these symptoms. The medication typically takes 2-4 weeks to achieve efficacy. Made aware to contact office if symptoms worsen. Buspar is a medication used for anxiety. The medication can cause dizziness, sedation, and restless. Please contact the office if you experience these symptoms. The medication typically takes 2-4 weeks to achieve efficacy. Made aware to contact office if symptoms worsen. Patient educated about the importance of adequate sleep to your mental health. The bedroom should be kept dark to promote restful sleep. The patient should not use their phone or watch TV while in bed, these behaviors can be stimulating and keep the patient awake. . Informed consent obtained: YES, we discussed the diagnosis/diagnos es, the treatment options, treatment(s) recommended vs. no treatment. We discussed risks and benefits of treatment options, treatment recommendations vs. no treatment. . . Pt is to continue current treatment plan Has good tolerability and compliance with medication Call for problems All questions and concerns discussed . 08/31/2024 Psychophysiological insomnia (ICD-10 - F51.04) insomnia or trouble falling asleep or staying asleep, can be caused by many different things such as untreated sleep apnea (complete sleep study), anxiety, depression, stress (practice mindfulness, essential oils, melatonin, sleep hygiene, meditation, chammomile tea), poor sleep habits, other medical conditions or medications. The best way to treat insomnia is to treat the cause. In general, we can all benefit from better sleep hygiene. Some recommendations to help you improve your sleep hygiene so you can fall asleep, stay asleep and wake up feeling refreshed include: - keep a routine bedtime and rise time. -avoid caffeine in the late afternoon/early evening, including chocolate -keep your bedroom technology free. Avoid TV and electronics one hour prior to bedtime. Don't have a clock visible in your room. -set up a worry time in the late afternoon to cope with worries and plan for the following day. -avoid naps. If necessary, keep naps under 15-20mins -develop a relaxing routine before bed -keep the bedroom for sleeping nad intimacy only -make your bedroom dark, quiet and comfrotable temperature -do not exercise right before bed. Do get 20-30 minutes of exercise during the day. Pharmacotherapy options: (pt should deny snoring, pauses in breathing during sleep, risk for falls, sleep walking, forning fog or confusion on these meds). REFER FOR A SLEEP STUDY! -Melatonin up to 10mg qhs -Valerian root/chamomile tea -Seroquel -Zolpidem Tartrate (Ambien) 12.5mg oral tablet ER. take 1 tablet at bedtime PRN for sleep (check OAR[place], complete controlled substance agreement (CSA) contract. Complete urine drug screen (UDS). Discuss safety guidelines of sleep aides). *use caution -Eszopiclone (Lunesta) check OAR[place], complete controlled substance agreement (CSA) contract. Complete urine drug screen (UDS). Discuss safety guidelines of sleep aides). *use caution -Hydroxyzine (50-100mg qhs) 30-60min before bed -Trazodone 25-50mg qhs Max 200mg/d (brand names Desyrel, Oleptro) (can use in conjunction with SSRI for mood stabilization), taper off dose if high dose used LT - Doxepin 6mg PO qhs (3mg in elderly pts) (anxiolytic, TCA) PTSD/nightmares: - Prazosin Safety guidelines with taking sleep aids: - rise slowly if you ahve been sitting or lyind down - avoid alcohol while taking thid drug - this drug may cause sleepiness or lwoer alertness. this may lead to falls - some people taking this drug have done thing like sleepwalking, sleep driving, making and eating food, or having sex...rarely, this has led to severe injuries or . Most of hte time people do not remember doing these things. IF this happens, stop taking this drug and tell your provider right away. HPI of insomnia: - naps? - sleep duration - sleep initiation, problems going to sleep? - sleep maintenance, problematic awakeings? - problems staying asleep - breathing during sleep: snoring? - sleep positioning: - hypersomnia sx? - legs at night (RLS?): - movements in sleep: - parasomnia: 06/15/2024 Psychophysiological insomnia (ICD-10 - F51.04) 04/27/2024 History of posttraumatic stress disorder (PTSD) (ICD-10 - Z86.59) Will continue therapy. 05/24/2024 Psychophysiological insomnia (ICD-10 - F51.04) 05/24/2024 Other follow up in 3 weeks . Discussed seriousness of taking benzodiazepine medication daily and as needed, risks and [...] for any concerns about your medications. . Patient educated on new antipsychotic dosing schedule and side effects. Made [...] patient crisis plan. Provided crisis hotline number. [facility] has good support system. Made aware to contact office if has an increase in suicidal thoughts. If outside of office hours, patient to go to the ER. Patient will call the office with any questions or concerns. Buspar is a medication used for anxiety. The medication can cause dizziness, sedation, and restless. Please contact the office if you experience these symptoms. The medication typically takes 2-4 weeks to achieve efficacy. Made aware to contact office if symptoms worsen. . FDA approved stimulant medication for this [...] to the patient/guardian. . OARRS reviewed . Patient educated about the importance of adequate sleep to your mental health. The bedroom should be kept dark to promote restful sleep. The patient should not use their phone or watch TV while in bed, these behaviors can be stimulating and keep the patient awake. . Informed consent obtained: YES, we discussed the diagnosis/diagnos es, the treatment options, treatment(s) recommended vs. no treatment. We discussed risks and benefits of treatment options, treatment recommendations vs. no treatment. . 06/15/2024 Other follow up in 1 month Patient educated on new antipsychotic dosing schedule and side effects. Made [...] patient crisis plan. Provided crisis hotline number. [place] has good [place]. Made aware to contact office if has an increase in suicidal thoughts. If outside of office hours, patient to go to the ER. Patient will call the office with any questions or concerns. Buspar is a medication used for anxiety. The medication can cause dizziness, sedation, and restless. Please contact the office if you experience these symptoms. The medication typically takes 2-4 weeks to achieve efficacy. Made aware to contact office if symptoms worsen. . FDA approved stimulant medication for this [...] functioning _Improve attention and or hyperactivity . . Crisis Intervention plan was discussed and agreed upon. Patient/Guardian will call 911 in case of emergency. Emergency contact information was provided to the patient/guardian. . OARRS reviewed . . Discussed seriousness of taking benzodiazepine medication daily and as needed, risks and [...] provider for any concerns about your medications. Patient educated about the importance of adequate sleep to your mental health. The bedroom should be kept dark to promote restful sleep. The patient should not use their phone or watch TV while in bed, these behaviors can be stimulating and keep the patient awake. . . Informed consent obtained: YES, we discussed the diagnosis/diagnos es, the treatment options, treatment(s) recommended vs. no treatment. We discussed risks and benefits of treatment options, treatment recommendations vs. no treatment. . Plan Of Treatment Next Appt Details Provider Name:Bre rene, 04/13/2025 05:15:00 PM, [address] [facility], [place], [address], Provider Name:Nayana Prieto, 1 02:45:00 PM, [address], [place], [address], Insurance Providers Payer Name Payer Address Payer Phone Subscriber Number Group Number Insured Name Patient Relationship to Insured Coverage Start Date Coverage End Date [employer] [place] Medicaid [address] [place] [phone] [id number] ANALADI GONZALES Self - patient is the insured 3 [facility] [address] [place] [address] [id number] ANALADI GONZALES Self - patient is the insured 3 [facility] [address] [place] [address] [id number] ANALADI GONZALES Self - patient is the insured 9 3 [employer] MEDICAID [employer] after [facility] [address] [place] [address] [id number] ANALADI GONZALES Self - patient is the insured 9 3 [facility] [place] [place] Medicaid [address] [place] [address] [id number] ANALADI GONZALES Self - patient is the insured 3 3 [facility] [address] [place] [address] [id number] ANALADI GONZALES Self - patient is the insured 3 3 [facility] [employer] [place] Medicaid [address] [place] [address] [id number] LADI YUN Self - patient is the insured 3 3 Medical (General) History Medical History History ICD Code BIPOLAR DEPRESSION ANXIETY SEASONAL ALLERGIES STOMACH ULCERS MIGRAINES HIGH CHOLESTEROL Surgical History Surgery Date(Month/Year) ACL REPAIR LEFT KNEE Cauterization for ulcer spine surgery 08/24/23 tubal ligation 02/25/2024 Hospitalization History Reason Date(Month/Year) spine surgery 08/24/2023 Stomach Ulcer symptoms Bleeding stomach ulcer
--- OUTSIDE RECORDS SUMMARY | 2025-04-05 07:43 | XMS_ITS | Encounter Summary ---
Author Organization [facility] Address [address] [place] [id number] Care Team Providers Care Mandrel Maker Name Role Phone Amara Palacio Osbaldo POSTAGE MACHINE OPERATOR Unavailable [phone] Rosibel Jerez PA-C Primary Care Provider + Mar Ponce PA-C Unavailable [phone] Source Comments In the event this information is protected by the Federal Confidentiality of Alcohol and Drug AbusePatient Records regulations: The Federal rules restrict any use of the information to criminally investigate or prosecute any alcohol or drug abuse patient.[facility] Encounter Details Date Type Department Care Team (Late st Contact Info) Description 04/23/2023 Get Medical Advice Internal Medicine [facility] [address] [place], [place] [id number] Rosibel Jerez PA-C [address] [place], [place] [id number] 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 1 to 4 times per year 04/09/2023 Do you belong to any clubs o r organizations such as scientology groups, unions, fraternal or athletic groups, or [...] Answer Date Recorded PHQ-2 score 0 04/09/2023 [facility] [place] [facility] Occupat ional [facility] - Occupational Stress [...] risk 8 01/15/2023 Data from: https://www.neighborhoodatlas.medicine.[facility].edu/. Last address used for calculation [...] 06/06/2025 10:30 AM EST Office Visit Gastroenterology [address] [place] [address] [place] [address] [place] [address] Nausea and vomiting, unspecified vomiting type [R11.2] documented as of this encounter Visit Diagnoses Not on filedocumented in this encounter Care Teams Mandrel Maker Relationship Specialty Start Date End Date Rosibel Jerez PA-C [address] [place] [address] PCP - General Internal Medicine 04/09/23 Amara Palacio POSTAGE MACHINE OPERATOR [address] [place], [place] [address] [address] Referring Family Medicine 02/20/22 Mar Ponce PA-C [address] [place] [address] Embosser Apprentice Internal Medicine 06/12/24 08/14/24 documented as of this encounter
--- OUTSIDE RECORDS SUMMARY | 2025-04-05 07:43 | XMS_ITS | Encounter Summary ---
Author Organization [facility] Address [address] [facility] [place] [address] Care Team Providers Care Representative Government Relations Name Role Phone Teresa Quintanilla MD Unavailable [phone] Rosibel Jerez MD Primary Care Provider [phone] Encounter Details Date Type Department Care Team (Late st Contact Info) Description 02/21/2024 Abstract [facility] [address] [place] [address] Solomon Sorensen DO [address] [place], [place] [id number] Social History Tobacco Use Types Packs/Day Years [...] on filedocumented in this encounter Care Teams Representative Government Relations Relationship Specialty Start Date End Date Rosibel Jerez MD [address] [place] [address] PCP - General Physician Hospice Care Transitions Coordinator 12/14/23 Teresa Quintanilla MD [address] [place] [address] Referring Physician Family Medicine 03/02/23 documented as of this encounter
[2025-04-05] MEDS: MORPHINE SULFATE 4 MG/ML VIAL IV ×2 (08:00→12:06)
[2025-04-05] MEDS: PROMETHAZINE HCL 12.5 MG in 0.9 % SODIUM CHLORIDE 50 ML 202 MG IV (08:00)
[2025-04-05] MEDS: PANTOPRAZOLE SODIUM 40 MG VIAL IV (08:00)
[2025-04-05] MEDS: 0.9 % SODIUM CHLORIDE 1,000 ML 999 ML IV (08:01)
--- NOTE | 2025-04-05 08:02 | XR_ITS ---
The [address] [address] Patient Name: LADI YUN MRN: [id number] date: 1985 Sex: F Assigned Patient Location: ER Current Patient Location: ER Accession/Order Number: [id number] Exam Date: 04/05/2025 08:50 Report Date: 04/05/2025 09:41 At the request of: AN BENITEZ Procedure: XR acute abdomen series ACUTE ABDOMEN SERIES WITH PA CHEST: CLINICAL HISTORY: epigastric abd pain, n/v COMPARISON: CT 12/26/2024 and chest x-ray 02/11/2024 The chest film shows and shallow inspiration and minor basilar atelectasis or scarring. No other acute findings are seen. Supine and upright views of the abdomen and pelvis demonstrate air within the stomach. Air and stool are visualized within the right colon. There is air within nondistended small bowel loops on the right. No free air or significant air-fluid levels are noted. No soft tissue masses or suspect renal calculi are seen. The bony structures are intact. XR/XR acute abdomen series IMPRESSION: NONSPECIFIC, NONOBSTRUCTIVE BOWEL GAS PATTERN. Impression dictated by: Pham Venegas M.D. 04/05/2025 9:41 AM Dictation Location: [place] [address] Electronically authenticated by: [id number] Y Date: 04/05/2025 09:41
[2025-04-05 08:08] LABS: Hematocrit 41.2 % (36.0-48.0); Hemoglobin 14.9 g/dL (12.0-16.0); Immature Granulocytes Abs Auto 0.04 10^3/uL (0.00-0.03); Immature Granulocytes Pct Auto 0.3 % (0.0-0.5); Lymphocytes Absolute Auto 2.2 10^3/uL (1.2-3.8); Mean Corpuscular HGB Conc 36.2 g/dL (29.9-35.2); Mean Corpuscular Hemoglobin 31.3 pg (26.7-34.0); Mean Corpuscular Volume 86.6 fL (81.0-99.0); Platelet Count 333 10^3/uL (150-450); Red Blood Count 4.76 10^6/uL (4.20-5.40); White Blood Count 12.3 10^3/uL (4.0-11.0)
[2025-04-05 08:27] LABS: Alanine Aminotransferase 34 U/L (14-59); Albumin Globulin Ratio 1.2; Albumin Level 4.5 g/dL (3.4-5.0); Alkaline Phosphatase 94 U/L (46-116); Anion Gap 16.8; Aspartate Amino Transferase 24 U/L (15-37); Blood Urea Nitrogen 11.0 mg/dL (7.0-18.0); Calcium 9.7 mg/dL (8.5-10.1); Carbon Dioxide 26.7 mmol/L (21.0-32.0); Chloride 101 mmol/L (98-107); Estimated GFR (African America >60 (>=60 mL/min/1.73m^2); Estimated GFR (Non-African Ame >60 (>=60 mL/min/1.73m^2); Globulin 3.8 g/dL; Glucose 133 mg/dL (74-106); Lipase 34.0 U/L (16.0-77.0); Potassium 3.5 mmol/L (3.5-5.1); Sodium 141 mmol/L (136-145); Total Protein 8.3 g/dL (6.4-8.2)
[2025-04-05 08:29] LABS: Lactate/Lactic Acid 1.1 mmol/L (0.4-2.0)
[2025-04-05] MEDS: HALOPERIDOL LACTATE 5 MG/ML VIAL IV (09:31)
--- NOTE | 2025-04-05 10:12 | CT_ITS ---
The [address] [address] Patient Name: LADI YUN MRN: [id number] date: 1985 Sex: F Assigned Patient Location: ER Current Patient Location: Accession/Order Number: [id number] Exam Date: 04/05/2025 09:55 Report Date: 04/05/2025 10:28 At the request of: AN BENITEZ Procedure: CT abdomen pelvis w con CT ABDOMEN AND PELVIS WITH CONTRAST CLINICAL DATA: Upper abdominal pain and intractable nausea. COMPARISON: 12/26/2024 Spiral images were obtained through the abdomen and pelvis following 100 mL of Omnipaque 300. This CT exam was performed using one or more following dose reduction techniques: Automated exposure control, adjustment of the mA and/or kV according to patient size, or use of iterative reconstruction technique. Limited cuts through the lung bases show no contributory findings. There is fatty infiltration of the liver. No calcified gallstones are identified. The spleen, pancreas and adrenal glands show no acute findings. There are symmetric renal nephrograms, without hydronephrosis. There is a tiny left upper pole renal cyst. The abdominal aorta is normal caliber. No enlarged lymph nodes or ascites are seen. Moderate fluid is again noted within the stomach. The rugal folds appear mildly prominent. No dilated small bowel loops are present. There is stool within the colon on the right. The descending colon is underdistended. Tiny endplate spurs are present. Images through the pelvis show no appendiceal inflammation. The small bowel loops are normal caliber. The distal colon is mostly decompressed. No diverticular disease is seen. There are no adnexal cysts. The urinary bladder is unremarkable. No ascites is identified. CT/CT abdomen pelvis w con IMPRESSION: NO BOWEL OR URINARY TRACT OBSTRUCTION. FATTY LIVER. FLUID DISTENDED STOMACH WITH POSSIBLE NONSPECIFIC RUGAL FOLD THICKENING. NO OTHER ACUTE FINDINGS. Impression dictated by: Pham Venegas M.D. 04/05/2025 10:28 AM Dictation Location: [place] [address] Electronically authenticated by: [id number] Y Date: 04/05/2025 10:28
[2025-04-05] MEDS: PROCHLORPERAZINE 10 MG/2 ML VIAL IV (12:06)
--- NOTE | 2025-04-05 13:51 | CA_ITS ---
Patient Name: LADI YUN MR#: [id number] : 1985 Exam Date: 04/05/2025 Ordering Doctor: SUSAN PATRICK ECHOCARDIOGRAM REPORT PROCEDURE: CA ECHO DOPPLER COMPLETE INDICATIONS: RBBB, r/o cardiomyopathy COMPARISON: None. DESCRIPTION: COMPLETE ECHOCARDIOGRAM Real-time transthoracic echocardiography with 2D, M-mode, spectral and color flow Doppler performed. QUALITY: Technical quality was good. LEFT VENTRICLE: Normal chamber size. Normal left ventricular wall thickness. Normal systolic function. Estimated LVEF is 60%. LV EF: Normal left ventricular ejection fraction, (>55%). DIASTOLIC: Diastolic function is indeterminate. ATRIAL SEPTUM: LEFT ATRIUM: Normal chamber size. RIGHT ATRIUM: Normal chamber size. RIGHT VENTRICLE: Normal chamber size. Normal systolic function. TRICUSPID VALVE: Normal mobility and thickness. No stenosis with no regurgitation. Unable to assess right-sided pressures due to lack of measurable tricuspid regurgitation. MITRAL VALVE: Normal mobility and thickness. No evidence of mitral valve stenosis. There is no mitral annular calcification. No mitral regurgitation. AORTIC VALVE: Normal trileaflet appearance. No visible sclerosis. Normal leaflet mobility. No evidence of aortic valve stenosis. Trivial aortic regurgitation. AORTIC ROOT: Normal diameter and appearance, measuring 3.4 cm. PULMONIC VALVE: Normal thickness and mobility. No stenosis. No regurgitation. PERICARDIUM: No evidence of pericardial effusion. IVC: Collapses with inspiration. PLEURA: CONCLUSION: 1. Normal ventricular size and systolic function. LVEF is estimated at 60%. 2. No significant valvular dysfunction. 3. Unable to assess right-sided pressures due to lack of measurable tricuspid regurgitation. Adult Echocardiography Procedure Report Left Ventricle LVEDD (3.7 - 5.6 cm): 4.57 cm LVESD (2.2 - 4.0 cm): 3.14 cm LVIVS thickness (0.6 - 1.2 cm): 1.00 cm LVPW thickness (0.5 - 1.0 cm): 0.95 cm e': 0.11 m/s E - e': 6.00 LVOT Max Gradient: 3.15 mm[Hg] LVOT Area (cm2): 0.89 m/s Peak Velocity (LVOT): 0.89 m/s LVOT Diameter 2.05 cm Left Ventricular Ejection Fraction: 60% Left Atrium Left Atrium Systolic Dimension: 4.03 cm Mitral Valve MV E to A Ratio: 0.93 Mitral Valve A-Wave Peak Velocity: 0.69 m/s Mitral Valve E-Wave Peak Velocity: 0.65 m/s Right Ventricle Aorta AO Root Diam: 3.41 cm Aortic Valve AoV Area (Peak Silas): 2.67 cm2, 2.67 cm2 Peak Velocity(Antegrade Flow): 1.10 m/s Peak Gradient(Antegrade Flow): 4.83 mm[Hg] Tricuspid Valve Pulmonic Valve Peak Gradient: 2.54 mm[Hg], 3.06 mm[Hg] Right Atrium Right Atrium Systolic Pressure: 38.95 ml, 38.95 ml Dictated by: Jose Chance M.D. on 04/05/2025 at 15:41 Approved by: Jose Chance M.D. on 04/05/2025 at 15:46
--- NOTE | 2025-04-05 13:56 | PM.HP ---
HPI H&P: HPI History of Present Illness Chief complaint: abdominal pain GASTRITIS INTRACTABLE NAUSEA Narrative: Mrs. Byers is a 40-year-old female who came in with progressive vomiting and epigastric pain over the last 24 to 36 hours. No fever or chills. No diarrhea. No hematemesis or melena. No chest pain or palpitation. No other symptoms. Patient feels fatigued and exhausted. Opioid HPI Opioid Management Most Recent Pain and Opioid Data: Last Pain Scale 10 Today, 08:00 Last MAR Pain Assessment Today, 08:00 Last ORT Total Score 3 Today, 13:34 Last ORT Risk Category Low Risk Today, 13:34 Ur Phencyclidine Scrn, (NEGATIVE) Negative 12/27/24, 04:02 Review of Systems ROS Status of ROS 10 or more systems reviewed and unremarkable except as noted in history and below [facility] Medical History (Updated 04/05/25 @ 13:59 by Jin Stiles MD) Stomach ulcer ?K25.9 - Gastric ulcer, unspecified as acute or chronic, without hemorrhage or perforation (ICD-10) Back pain ?M54.9 - Dorsalgia, unspecified (ICD-10) Neck pain ?M54.2 - Cervicalgia (ICD-10) ADD (attention deficit disorder) ?F98.8 - Other specified behavioral and emotional disorders with onset usually occurring in childhood and adolescence (ICD-10) Insomnia ?G47.00 - Insomnia, unspecified (ICD-10) Bipolar disorder ?F31.9 - Bipolar disorder, unspecified (ICD-10) Depression ?F32.A - Depression, unspecified (ICD-10) PTSD (post-traumatic stress disorder) ?F43.10 - Post-traumatic stress disorder, unspecified (ICD-10) Anxiety ?F41.9 - Anxiety disorder, unspecified (ICD-10) Panic attacks ?F41.0 - Panic disorder [episodic paroxysmal anxiety] (ICD-10) Electronic cigarette use ?Z78.9 - Other specified health status (ICD-10) COVID-19 ?U07.1 - COVID-19 (ICD-10) Seasonal allergies ?J30.2 - Other seasonal allergic rhinitis (ICD-10) Bronchitis ?J40 - Bronchitis, not specified as acute or chronic (ICD-10) Request for sterilization ?Z30.2 - Encounter for sterilization (ICD-10) Pelvic pain ?R10.2 - Pelvic and perineal pain (ICD-10) Abnormal uterine bleeding ?N93.9 - Abnormal uterine and vaginal bleeding, unspecified (ICD-10) Menorrhagia ?N92.0 - Excessive and frequent menstruation with regular cycle (ICD-10) Kidney stones ?N20.0 - Calculus of kidney (ICD-10) Peptic ulcer ?K27.9 - Peptic ulcer, site unspecified, unspecified as acute or chronic, without hemorrhage or perforation (ICD-10) GERD (gastroesophageal reflux disease) ?K21.9 - Gastro-esophageal reflux disease without esophagitis (ICD-10) Tachycardia ?R00.0 - Tachycardia, unspecified (ICD-10) Postoperative nausea and vomiting ?R11.2 - Nausea with vomiting, unspecified (ICD-10) ?Z98.890 - Other specified postprocedural states (ICD-10) Surgical History H/O tubal ligation ?Z98.51 - Tubal ligation status (ICD-10) History of colonoscopy ?Z98.890 - Other specified postprocedural states (ICD-10) History of esophagogastroduodenoscopy (EGD) ?Z98.890 - Other specified postprocedural states (ICD-10) S/P ACL repair ?Z98.890 - Other specified postprocedural states (ICD-10) History of arthroscopy of knee ?Z98.890 - Other specified postprocedural states (ICD-10) H/O cervical spinal arthrodesis (08/24/23) ?Z98.1 - Arthrodesis status (ICD-10) Family History (Updated 12/26/24 @ 18:12 by Paula Carmona RN) Other Family history of bone cancer Family history of colon cancer Family history of diabetes mellitus Family history of hypertension Family history of lung cancer Family history of myocardial infarction Family history of stroke Social History (Updated 02/25/24 @ 07:28 by Jessica Manrique, MOISE) Within the past year, how often did you have a drink containing alcohol: monthly or less Smoking status: Former smoker Second hand tobacco smoke exposure: No Non-prescribed substance use: cannabis (any form) Non-prescribed substance use details: used last yesterday 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 Highest level of school completed/degree received: high school graduate Little interest or pleasure in doing things: not at all Feeling down, depressed, or hopeless: not at all Meds Home Medications and Allergies Home Medications ?Medication ?Instructions ?Recorded ?Confirmed ?Type albuterol sulfate 90 mcg/actuation 2 inh inhalation Q4H PRN shortness 02/11/24 04/05/25 History aerosol inhaler of breath or wheezing gabapentin 100 mg capsule 200 mg PO Q12H 02/11/24 04/05/25 History pantoprazole 40 mg tablet,delayed 40 mg PO DAILY 02/11/24 04/05/25 History release propranolol 80 mg capsule,24 80 mg PO Q24H 02/11/24 04/05/25 History hr,extended release sumatriptan succinate 50 mg tablet 50 mg PO Q2H PRN migraine headache 02/11/24 04/05/25 History tizanidine 4 mg tablet 4 mg PO .QHS muscle spasticity 02/11/24 04/05/25 History brexpiprazole 3 mg tablet (Rexulti) 3 mg PO .QD 12/26/24 04/05/25 History bupropion HCl 300 mg 24 hr tablet, 300 mg PO .QD 12/26/24 04/05/25 History extended release clonidine HCl 0.1 mg tablet 0.1 mg PO BID 12/26/24 04/05/25 History lisdexamfetamine 50 mg capsule 50 mg PO .QD 12/26/24 04/05/25 History (Salvador) ondansetron 4 mg disintegrating 4 mg PO Q6H PRN nausea and 12/26/24 04/05/25 Rx tablet vomiting #20 tabs dicyclomine 10 mg capsule 10 mg PO BID 10 days #20 caps 12/27/24 04/05/25 Rx celecoxib 200 mg capsule 200 mg PO DAILY 04/05/25 04/05/25 History olanzapine 10 mg-samidorphan 10 mg 1 tab PO DAILY 04/05/25 04/05/25 History tablet (Lybalvi) Allergies Allergy/AdvReac Type Severity Reaction Status Date / Time cariprazine (From Vraylar) Allergy out of Verified 04/05/25 07:35 body experience metoclopramide (From Reglan) Allergy Unknown Verified 04/05/25 07:35 Penicillins Allergy Rash Verified 04/05/25 07:35 Exam Narrative Exam Narrative: [pt is awake and alert. oriented to place, time and person. Patient is sleeping. Unwilling to participate in conversation very well. She answers questions by nodding her head up and down. Unwilling to look at me and focus. HEENT: [place] conjunctiva and NL buccal mucosa Neck: Supple, no tenderness Endocrine: No Thyromegaly. Vascular: No JVD or carotid bruit. Lymphatic: No cervical lymphadenopathy. Chest: CTA no DTP. Heart RRR, no extra sound or murmur. Abd: Soft, moderate tenderness in the epigastric area, no rebound and no rigidity. Increase abd girth therefore clinically I could not exclude the possibility of intra abd mass or organomegaly. LE: No cyanosis or clubbing, no varices or edema. Neuro: A A O. Nl speech, comprehension and attention. Nl and symetrical motor and tone examination through out. []] Constitutional Vital Signs, click to edit/add: Last Vital Signs Temp 97.9 F 04/05/25 13:34 Pulse 65 04/05/25 13:34 Resp 16 04/05/25 13:34 BP 133/77 04/05/25 13:34 Pulse Ox 96 04/05/25 13:34 O2 Del Method Room Air 04/05/25 13:34 Results Labs Labs: Short CBC 04/05/25 Range/Units 07:45 WBC 12.3 H (4.0-11.0) 10^3/uL Hgb 14.9 (12.0-16.0) g/dL Hct 41.2 (36.0-48.0) % Plt Count 333 (150-450) 10^3/uL BMP 04/05/25 07:45 Sodium 141 Potassium 3.5 Chloride 101 Carbon Dioxide 26.7 BUN 11.0 Creatinine 0.80 Glucose 133 H Calcium 9.7 Liver Function 04/05/25 Range/Units 07:45 Total Bilirubin 0.8 (0.2-1.0) mg/dL AST 24 (15-37) U/L ALT 34 (14-59) U/L Alkaline Phosphatase 94 (46-116) U/L Albumin 4.5 (3.4-5.0) g/dL Assessment and Plan Assessment and Plan (1) Intractable nausea: (2) Abdominal pain: (3) Polypharmacy: (4) Fatty liver: (5) Right bundle branch block: (6) SIRS (systemic inflammatory response syndrome): (7) Marijuana use: (8) Vaping nicotine dependence, non-tobacco product: (9) Acute distention of stomach: Plan Nausea and vomiting Large distended stomach on CT SIRS present on admission. No clinical evidence of active infection at this time. Suspect gastroparesis which could be related to medication side effect. Suspect but not confirmed gastric outlet obstruction. Patient is taking few medications that could cause gastroparesis including but not limited to clonidine, dicyclomine, gabapentin, Zofran, tizanidine. Patient also reported using marijuana that potentially could cause marijuana hyperemesis syndrome. Try to simplify her regimen, eliminate some of the medications Started her on PPI intravenously. Keep her n.p.o. for 12 hours. If no resolution of her symptoms by tomorrow I would recommend additional studies such as gastric emptying study. Chronic right bundle branch block associated with T wave abnormality I was able to track it down to February 2024. She might have had it even before that. No chest pain. Requested echocardiogram to rule out cardiomyopathy or significant valvular disease or pulmonary hypertension. Fibromyalgia and migraine Minimize her medication regimen. Follow-up in the outpatient setting. Polypharmacy Patient is on multiple medications that potentially could cause drug?drug interaction or side effects. Side effect include but not limited to gastroparesis, [employer] depression, respiratory depression, GI symptoms, cardiac dysrhythmia and others. I strongly recommend patient to go over her medication regimen with her primary care doctor and psychiatrist to reduce her risk having adverse effect. I need to be cautious not to stop multiple medications at the same time fearing that she may go into withdrawal. This should be done in a gradual fashion in the outpatient setting. Vaping and marijuana use Counseling and education are provided. Chronic, subacute medical conditions not listed above, abnormal labs and imaging. These would need to be addressed. Could be addressed later on or in the outpatient setting by PCP collaboration with other needed outpatient providers when time and condition are appropriate.
[2025-04-05] MEDS: KETOROLAC TROMETHAMINE 30 MG/ML VIAL 15 MG IVP ×2 (14:05→19:42)
[2025-04-05] MEDS: ENOXAPARIN SODIUM 40 MG/0.4 ML SYRINGE SUBQ (14:06)
[2025-04-05 18:24] LABS: Glucose Urine UA NEGATIVE (NEGATIVE)
[2025-04-05 18:30] LABS: Cast Seen? NONE SEEN #/LPF (NONE SEEN); Crystals Seen? None Seen #/HPF (None Seen); Urine Culture Indicated NO
[2025-04-05 18:36] LABS: Cannabinoid Screen Urine POSITIVE (NEGATIVE); Methamphetamines Screen Urine NEGATIVE (NEGATIVE); Tricyclic Antidepressant Urine NEGATIVE (NEGATIVE)
--- OUTSIDE RECORDS SUMMARY | 2025-04-05 19:30 | XMS_ITS | CCD ---
Author Organization [facility] Care Team Providers Care Curator Name Role Phone MIRIAM CAVAZOS Primary Care Unavailable PROVIDER, UNKNOWN Admitting Unavailable GENARO CASTELLANOS Attending Unavailable PATIENT, SELF Referring Unavailable TERESA PATEL Primary Care Physician [phone] Teresa Patel CNP Primary Care Provider Amara Palacio CNP Unavailable [phone] TERESA PATEL Admitting Unavailable TERESA PATEL Attending Unavailable RADHA, DR MONCADA Primary Care Unavailable TERESA PATEL Consulting Unavailable DWIGHT, TERESA Admitting Unavailable DWIGHT, TERESA Attending Unavailable OBINNAY, DR MONCADA Primary Care Unavailable WEST, DR CAMEJO Consulting Unavailable TERESA PATEL Consulting Unavailable MISC, DR ZIMMERMAN Admitting Unavailable MISC, DR ZIMMERMAN Attending Unavailable TERESA PATEL Primary Care Unavailable MISC, DR ZIMMERMAN Consulting Unavailable OBINNAY, DR MONCADA Primary Care Unavailable TAHMINA, LOREE Admitting Unavailable LOREE HANNAH Attending Unavailable LOREE HANNAH Consulting Unavailable RADHA, DR MONCADA Primary Care Unavailable PAY, DR PADILLA Admitting Unavailable PAY, DR PADILLA Attending Unavailable WEST, DR CAMEJO Consulting Unavailable PAY, DR PADILLA Consulting Unavailable OBINNAY, DR MONCADA Primary Care Unavailable TAHMINA, LOREE Admitting Unavailable TAHMINA, LOREE Attending Unavailable WEST, DR CAMEJO Consulting Unavailable TAHMINA, LOREE Consulting Unavailable DWIGHT, TERESA Admitting Unavailable DWIGHT, TERESA Attending Unavailable HOY, DR MONCADA Primary Care Unavailable DWIGHT, TERESA Admitting Unavailable DWIGHT, TERESA Attending Unavailable HOY, DR MONCADA Primary Care Unavailable DWIGHT, TERESA Admitting Unavailable DWIGHT, TERESA Attending Unavailable TERESA PATEL Primary Care Unavailable DWIGHT, TERESA Consulting Unavailable Miriam Cavazos Primary Care Provider Dwight PARENT PARTNER, Teresa S Primary Care Provider Pia DEE, Amara Unavailable Miriam Cavazos Primary Care Unavailable KYLEE VALENCIA Attending Unavailable Low Agrawal PA-Cth L Primary Care Provider Bonifacio SUPERVISOR [employer] NURSING, Nitza Unavailable Unavailable Teresa Paetl CNP Primary Care Provider [phone] Bonifacio SUPERVISOR [employer] HE[employer] NURSING, Nitza Unavailable Unavailable Elizabeth Piedra Unavailable PROVIDER, UNKNOWN Referring Unavailable MIZANIN, REUBEN L Primary Care Unavailable MizLow hampton PA-Cth L Primary Care Provider Mikal Garcia Attending Unavailable Silas Durant Attending Unavailable Amara Palacio Attending Unavailable Romy Barkley Admitting Unavailable Romy Barkley Attending Unavailable Romy Barkley Referring Unavailable Erika Flores Attending Unavailable Erika Flores Admitting Unavailable DO Solomon Sorensen Attending Provider Franchesca, Soloomn Admitting Unavailable Franchesca, Solomon Attending Unavailable Franchesca, Solomon Admitting Unavailable Franchesca, Solomon Attending Unavailable JESSICA CHE Attending Unavailable FRANCHESCASOLOMON LAST Attending Unavailable FRANCHESCA, SOLOMON Attending Unavailable JACKLYN STONE Attending Unavailable Pia DEE, Amara A. Unavailable Teresa Patel MD Unavailable Reuben Agrawal MD Primary Care Provider Mar Ponce PA-C Unavailable BUTT, BILAL MISTY Attending Unavailable BUTT, [...] Unavailabl e BUTT, BILAL MISTY Attending Unavailable BUTT, BILAL MISTY Referring Unavailable MIZANIN, REUBEN L Primary Care Unavailable PACENTA, LLOYD Referring Unavailable MIZANIN, REUBEN L Primary Care Unavailable MIZANIN, REUBEN L Referring Unavailable MIZANIN, REUBEN L Primary Care Unavailable GenkirilliShakiren Attending Unavailable Luis Mi, Saundra Admitting Unavailable thea Verónica Bradley Attending Unavailable Bereket, Mohamad A. Consulting Unavailable Aravind Douglass Attending Unavailable Genkirilli, Saundra Admitting Unavailable Mouchli, Mohamad A. Consulting Unavailable Mouchli, Mohamad A. Consulting Unavailable Mouchli, Mohamad A. Consulting Unavailable HAZARIKA, SUROVI Referring Unavailable MIZANIN, REUBEN [...] REUBEN L Attending Unavailable MIZANIN, REUBEN L Referring Unavailable MIZANIN, REUBEN L Primary Care Unavailable MIZANIN, REUBEN L Attending Unavailable MIZANIN, REUBEN L Primary Care Unavailable HAZARIKA, SUROVI Attending Unavailable MIZANIN, REUBEN L Primary Care Unavailable Allergies Allergy Classification Reported Allergen(s) Allergy Type Date of Onset Reaction(s) Facility cariprazine (2 sources) cariprazine Drug Allergy 2 Other: See Comments, Unknown [facility] DOPamine Antagonists (4 sources) Metoclopramide Drug Allergy 0 Other: See Comments, Mental Status Change [facility] Penicillins (antibiotic) (2 sources) Penicillins Drug Allergy 9 Hives [facility] (20 sources) Metoclopramide; Translations: [METOCLOPRAMIDE] Drug Allergy 0 Other: See Comments, rash, Other, Unknown [facility] (20 sources) Amoxicillin; Translations: [amoxicillin] Drug Allergy 3 Unknown (qualifier value), hives, Unknown, Rash [facility] (20 sources) Amoxicillin / Clavulanate; Translations: [amoxicillin-clavu lanate] Drug Allergy [facility] (20 sources) cariprazine; Translations: [cariprazine] Drug Allergy 2 [facility] (20 sources) cariprazine; Translations: [CARIPRAZINE] Drug Allergy 2 Other: See Comments, Unknown [facility] (20 sources) Metoclopramide; Translations: [METOCLOPRAMIDE HCL] Drug Allergy 0 Mental Status Change [facility] Work Phone: (20 sources) Penicillins; Translations: [PENICILLINS] Drug Allergy [facility] (20 sources) Iothalamic Acid; Translations: [IOTHALAMIC ACID] Drug Allergy 4 Other: See Comments [facility] (12 sources) Iothalamate; Translations: [iothalamate] Drug Allergy 4 Unknown [facility] (2 sources) Penicillin Drug Allergy [facility] (4 sources) Iothalamate; Translations: [iothalamate] Drug Allergy 4 [facility] Repository (1 source) Amoxicillin Drug Allergy 4 [facility] (1 source) cariprazine Drug Allergy 4 [facility] (4 sources) cariprazine Drug Allergy 2 Unknown, Other [facility] (4 sources) Penicillins Drug Allergy 9 Hives, Other, Unknown [facility] (4 sources) Amoxicillin-Pot Clavulanate Drug Allergy 3 Unknown [facility] (20 sources) Penicillins Drug Allergy 9 [facility] Medications Current Medications Medication Drug Class(es) Dates Sig (Normalized) Sig (Original) acetaminophen 300 mg / codeine phosphate 30 mg oral tablet (3 sources) Opioid Agonist Start: 02-29-2024 End: 03-10-2024 take 1 tablet by mouth every six hours for pain acetaminophen-code ine (Tylenol w/ Codeine #3) 300-30 MG tablet Indications: Acute postoperative pain Take 1 tablet by mouth every 6 (six) hours if needed for severe pain for up to 10 days 20 tablet 02/29/2024 03/10/2024 Active acetaminophen 325 mg / HYDROcodone bitartrate 5 mg oral tablet (4 sources) Opioid Agonist Start: 01-12-2022 [place] 325 mg-5 mg oral tablet 1 tab(s), Oral, q6hr as needed for pain, 7 tab(s), Refill(s) 0, [facility]/pharmacy #[id number], 152, cm, 01/12/22 9:47:00 EDT, Height/Length Dosing, 68, kg, 01/12/22 9:47:00 EDT, Weight Dosing Start Date: 01/12/22 Status: Ordered [id number] 200 actuat albuterol 0.09 mg/actuat metered dose inhaler (20 sources) beta2-Adrenergic Agonist Start: 06-22-2023 End: 09-20-2023 take 1-2 puff(s) by inhalation every four hours as needed for wheezing albuterol HFA (PROVENTIL HFA) 90 mcg/actuation inhaler Inhale 1-2 Puffs as instructed every 4 hours as needed for wheezing/shortness of breath. 18 g 06/22/2023 Active Comment on above: Inhale 1-2 Puffs as instructed every 4 hours as needed for wheezing/shortness of breath. brexpiprazole 3 mg oral tablet (20 sources) Atypical Antipsychotic Start: 01-03-2025 take 1 tablet by mouth once daily Rexulti 3 mg oral tablet 3 mg = 1 tab(s), Oral, Daily, Refills(s) 0 Start Date: 01/03/25 Status: Ordered Repeat number: 1 Start: 11-07-2024 take 1 tablet by layo once daily Brexpiprazole (Rexulti) 3 mg tablet Active 3 MG PO Daily November 07, 2024 12:00am Start: 10-02-2024 take 2 mg by mouth once daily REXULTI 3 mg tablet Take 2 mg by mouth once daily. 10/02/2024 Active 24 hr buPROPion hydrochloride 150 mg extended release oral tablet (20 sources) Aminoketone Start: 02-19-2025 take 1 tablet by mouth once daily buPROPion XL (WELLBUTRIN XL) 150 mg 24 hr tablet Take 1 tablet by mouth once daily. 02/19/2025 Active Start: 11-07-2024 take 1 tablet by layo th every twenty-four hours Bupropion Hcl 150 mg tablet extended release 24 hr Active MG PO November 07, 2024 12:00am Start: 10-02-2024 take 1 tablet by mouth once da itz buPROPion XL (WELLBUTRIN XL) 300 mg 24 hr tablet Take 300 mg by mouth once daily. 10/02/2024 Active celecoxib 200 mg oral capsule (20 sources) Nonsteroidal Anti-inflammatory Drug Start: 04-09-2023 End: 10-23-2024 take 1 capsule by mouth once daily celecoxib (CELEBREX) 200 mg capsule Take 1 capsule by mouth once daily. 90 capsule 3 10/23/2024 Active Comment on above: Take 1 capsule by mo [facility] once daily. TAKE 1 CAPSULE BY MO [facility] EVERY DAY cetirizine hydrochloride 10 mg oral tablet (20 sources) Histamine-1 Receptor Antagonist Start: 01-07-2022 End: 01-18-2025 take 1 tablet by mouth once daily at bedtime cetirizine (ZYRTEC) 10 mg tablet Take 1 tablet by mouth daily at bedtime. 90 tablet 1 01/18/2025 Active Start: 11-30-2018 End: 03-19-2022 take 1 [...] mg oral tablet (1 source) Benzodiazepine End: 03-19 take 1 tablet by mouth every twelve hours as needed clonazePAM (KLONOPIN) 1 mg tablet Take 1 mg by mouth twice daily as needed. 0 03/19/2022 Discontinued Comment on above: Take 1 mg by mouth t wice daily as needed. cloNIDine hydrochloride 0.1 mg oral tablet (20 sources) Central alpha-2 Adrenergic Agonist Start : 10-02 take 1 tablet by mouth every twelve hours as needed cloNIDine HCl (CATAPRES) 0.1 mg tablet Take 0.1 mg by mouth two times a day as needed. For Anxiety 10/02/2024 Active 24 hr dexmethylphenidate hydrochloride 35 mg extended release oral capsule (1 source) Central Nervous System Stimulant Start : 11-07 Dexmethylphenidate 35 mg capsule,ER biphasic 50-50 Active MG PO November 07, 2024 12:00am dicyclomine hydrochloride 10 mg oral capsule (20 sources) Anticholinergic Start : 12-24 take 1 capsule by mouth four times daily as needed Bentyl 10 mg Cap 10 mg = 1 cap(s), Oral, QID, PRN Other (see comment), For abdominal cramping, # 16 cap(s), Refills(s) 0, Pharmacy: [facility]/pharmacy #[id number], 152, cm, 12/23/22 19:46:00 EDT, Height/Length Dosing, 58, kg, 12/23/22 19:46:00 EDT, Weight Dosing Start Date: 12/24/22 Status: Ordered Quantity: 16.0 Unit: cap(s) Repeat number: 1 Start: 11-14-2021 End: 08-05-2022 take 1 capsule by mouth four times daily Bentyl 10 mg Cap 10 mg = 1 cap(s), Oral, QID, X 7 day(s), # 28 cap(s), Refills(s) 0, Pharmacy: [facility]/pharmacy #[id number], 152, cm, 07/29/22 2:29:00 EST, Height/Length Dosing, 64, kg, 07/29/22 2:29:00 EST, Weight Dosing Start Date: 07/29/22 Stop Date: 08/05/22 Status: Ordered dicyclomine (Favian tyl) 10 MG capsule every 6 (six) hours. Active Comment on above: 1 capsule. docusate sodium 100 mg oral capsule (11 sources) Start: 016 End: 024 take 1 capsule by mouth twice daily docusate sodium (COLACE) 100 MG capsule Take 1 Capsule by mouth 2 times daily. 60 Capsule 3 05/05/2016 Active Comment on above: Take 1 capsule by [facility] two times a day. DULoxetine 60 mg delayed release oral capsule (3 sources) Serotonin and Norepinephrine Reuptake Inhibitor Start: 017 take 1 capsule by mouth once daily duloxetine (CYMBALTA) 60 MG capsule Take 1 Capsule by mouth daily. 30 Capsule 5 09/08/2016 Active ergocalciferol 1.25 mg oral capsule (20 sources) Provitamin D2 Compound Start: 025 take 1 capsule by mouth every week ergocalciferol 50,000 unit capsule (VITAMIN D2, DRISDOL) Indications: Vitamin D deficiency Take 1 capsule by mouth one time a week. 12 capsule 3 10/05/2024 Active eszopiclone 2 mg oral tablet (20 sources) Start: 025 take 2 mg by mouth once daily at bedtime eszopiclone (LUNESTA) 2 mg Take 2 mg by mouth daily at bedtime. 10/03/2024 Active Ethinyl Estradiol / Ferrous fumarate / Norethindrone (20 sources) Estrogen Start: 024 take 1 tablet by mouth once BLISOVI 24 FE 1 mg-20 mcg (24)/75 mg (4) Take 1 tablet by mouth every afternoon. 07/25/2023 Active Start: 07-25-2023 take 1 tablet by layo th in the morning Blisovi 24 Fe 1-20 MG-MCG(24) tablet Take 1 tablet by mouth in the morning. 07/25/2023 Active Start: 07-25-2023 take 1 tablet by mouth once BL ISOVI 24 FE 1 mg-20 mcg (24)/75 mg [...] BID, # 20 tab(s), Refills(s) 0, Pharmacy: [facility]/pharmacy #[id number], 152, cm, 03/19/22 14:05:00 EDT, Height/Length Dosing, 68.2, kg, 03/19/22 14:05:00 EDT, Weight Dosing Start Date: 03/19/22 Status: Ordered Start: 02-09-2022 Dificid 200 mg oral tablet Refills(s) 0, Infection or prophylaxis for antibiotics Start Date: 02/09/22 Status: Ordered folic acid 1 mg oral tablet (4 sources) Start: 11-07-2022 take 1 tablet by mouth once daily folic acid 1 mg Tab 1 mg = 1 tab(s), Oral, Daily, # 30 tab(s), Refills(s) 0, Pharmacy: 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 540 capsule 1 03/01/2025 08/28/2025 Active Start: 11-07-2024 take 1 capsule by [facility] twice daily Gabapentin 100 mg capsule Active 100 MG PO Twice daily November 07, 2024 12:00am Start: 10-22-2023 End: 10-05-2024 take 2 capsules by mouth every twelve hours gabapentin (NEURONTIN) 100 mg capsule Take 2 capsules by mouth every 12 hours for 30 days. 120 capsule 10/22/2023 10/05/2024 Discontinued Start: 07-19-2023 End: 04-18-2025 take 2 capsules by mouth twice daily gabapentin (NEURONTIN) 100 mg capsule Take 2 capsules by mouth two times a day for 90 days. 120 capsule 2 01/18/2025 03/01/2025 Discontinued Start: 03-26-2023 End: 06-24-2023 take 2 capsules by mouth twice daily gabapentin (NEURONTIN) 100 mg capsule Take 2 capsules by mouth twice daily for 90 days. 120 capsule 2 03/26/2023 Active gabapentin (Neur ontin) 100 MG capsule 1 capsule Active Comment on above: Take 2 capsules [...] extended release oral tablet (20 sources) guaiFENesin (MUC INEX) 600 mg 12 hr tablet Take 1,200 mg by mouth twice daily as needed for cold/allergy symptoms. Active Comment on above: Take 1,200 mg by layo th twice daily as needed for cold/allergy symptoms. hydrOXYzine hydrochloride 25 mg oral tablet (20 sources) Antihistamine Start : 09-08 End: 09-09 hydrOXYzine (ATARAX) 25 MG tablet Take one tablet every 6 hours as needed for anxiety 120 Tablet 2 09/08/2016 Active ibuprofen 800 mg oral tablet (1 source) Nonsteroidal Anti-inflammatory Drug Start : 12-18 End: 03-19 take 1 tablet by mouth every eight hours as needed ibuprofen (MOTRIN) 800 mg tablet Take 1 tablet by mouth every 8 hours as needed. 30 tablet 0 12/18/2018 03/19/2022 Discontinued Comment on above: Take 1 tablet by layo th every 8 hours as needed. iv contrast (will be provided with radiology test) (1 source) Start : 12-12 End: 12-13 inject 1 dose intravenously once iv contrast (will be provided with radiology test) Indications: SOB (shortness of breath) , Wheezing CTA Coronary. No IV access, insert saline lock prior to the sedation, infusion, injection for imaging exam. Discontinue saline lock post exam. If Pt. has a central line or IVAD, may access for administration according to line specific nursing protocol. Once exam is complete flush line and de-access according to line specific nursing protocol in the CT contrast administration guidelines link. 1 each 12/12/2024 12/13/2024 Active lamoTRIgine (1 source) Mood Stabilizer, Anti-epileptic Agent End: 03-19 lamotrigine (LAMICTAL ORAL) Take by mouth. 0 03/19/2022 Discontinued Comment on above: Take by mouth. lisdexamfetamine dimesylate 50 mg oral capsule (20 sources) Central Nervous System Stimulant Start : 02-19 End: 03-21 take 1 capsule by mouth once daily lisdexamfetamine (VYVANSE) 50 mg capsule Indications: Attention deficit disorder, unspecified type Take 1 capsule by mouth once daily for 30 days. 02/19/2025 03/21/2025 Active Start: 10-05-2024 End: 02-19-2025 take 1 capsule by mouth once daily lisdexamfetamine (VYVANSE) 60 mg capsule Indications: Attention deficit disorder, unspecified type Take 1 capsule by mouth once daily for 30 days. 30 capsule 10/05/2024 02/19/2025 Discontinued Start: 10-02-2024 End: 10-05-2024 take 1 capsule by mouth once daily VYVANSE 50 mg capsule Take 50 mg by mouth once daily. 10/02/2024 10/05/2024 Discontinued Start: 12-03-2022 lisdexamfetami ne (Vyvanse) 30 MG capsule 20 mg 1 (one) time each day at the same time. 12/03/2022 Active Start: 12-03-2022 End: 04-09-2023 VYVANSE 30 mg capsule Start: 07-29-2022 End: 10-05-2024 take 1 capsule by mouth once daily in the morning Vyvanse 20 mg oral capsule TAKE 1 CAPSULE BY MOUTH EVERY DAY IN THE MORNING FOR 30 DAYS Start Date: 07/29/22 Status: Ordered Repeat number: 1 Comment on above: TAKE [address] [facility] EVERY DAY IN THE MORNING FOR 30 DAYS lurasidone hydrochloride 40 mg oral tablet (1 source) Atypical Antipsychotic End: 03-19-20 lurasidone (LATUDA) 40 mg tablet Take by mouth. 0 03/19/2022 Discontinued Comment on above: Take by mouth. magnesium sulfate 225 MG / potassium chloride 188 MG / sodium sulfate 1479 MG Oral Tablet [Sutab] (2 sources) Start: 07-30-19 take 1 tablet by mouth once Sutab oral tablet See Instructions, 1 EA, Refill(s) 0, Please follow instructions per packaging and physician's handout, [facility]/pharmacy #[id number], 152, cm, 07/30/22 12:41:00 EST, Height/Length Dosing, 65, kg, 07/30/22 12:41:00 EST, Weight Dosing Start Date: 07/30/22 Status: Ordered melatonin 3 mg oral tablet (20 sources) Start: 11-08-19 take 1 tablet by mouth at bedtime as needed for sleep melatonin 3 mg Tab 3 mg = 1 tab(s), Oral, Bedtime, PRN Sleep, # 30 tab(s), Refills(s) 0, Pharmacy: [facility]/pharmacy #[id number], 152.4, cm, 11/06/22 14:36:00 EDT, Height/Length Dosing, 59.5, kg, 11/06/22 14:36:00 EDT, Weight Dosing Start Date: 11/07/22 Status: Ordered Quantity: 30.0 Unit: tab(s) Repeat number: 1 Comment on above: Take 3 mg by mouth. metoprolol tartrate 25 mg oral tablet (20 sources) beta-Adrenergic Jeanna Start: 02-03-20 take 1 mg by mouth twice daily Metoprolol tartrate 25 mg Tab mg tab(s), Oral, BID, Refills(s) 0 Start Date: 02/02/22 Status: Ordered Repeat number: 1 Start: 01-30-2022 End: 03-18-2023 take 1 tablet by mouth twice daily metoprolol tartrate, short acting, (LOPRESSOR) 50 mg tablet Take 50 mg by mouth twice daily. 0 01/30/2022 03/18/2023 Discontinued Comment on above: Take 50 mg by mouth twice daily. montelukast (1 source) Leukotriene Receptor Antagonist End: 2 montelukast sodium (SINGULAIR ORAL) Take 30 mg by mouth. 0 03/19/2022 Discontinued Comment on above: Take 30 mg by mouth. 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/pharmacy #[id number], 152.4, cm, 10/09/21 9:00:00 EDT, Height/Length Dosing, 78, kg, 10/09/21 9:00:00 EDT, Weight Dosing Start Date: 10/12/21 Status: Ordered OLANZapine 2.5 mg oral tablet (20 sources) Atypical Antipsychotic Start: 11-07-2024 take 1 tablet by mouth once daily Olanzapine 2.5 mg tablet Active 2.5 MG PO Daily November 07, 2024 12:00am Start: 09-09-2023 End: 10-05-2024 take 3 tablets by mouth once daily OLANZapine (ZYPREXA) 5 mg tablet Take 15 mg by mouth once daily. 09/09/2023 10/05/2024 Discontinued Start: 09-09-2023 take 1 tablet by layo once daily OLANZapine (ZYPREXA) 5 mg tablet Take 5 mg by mouth once daily. 0 09/09/2023 Active End: 01-27-2025 take 1 tablet by mouth once daily OLANZapine (ZYPREXA) 15 mg tablet Take 15 mg by mouth once daily. 01/27/2025 Discontinued Comment on above: Take 5 mg by mouth o nce daily. olanzapine-samidorph an (LYBALVI) 5-10 mg tablet (3 sources) Start: 5 take 1 tablet by mouth once daily olanzapine-samidorpha n (LYBALVI) 5-10 mg tablet Take 1 tablet by mouth once daily. 02/19/2025 Active omeprazole 40 mg delayed release oral capsule (12 sources) Proton Pump Inhibitor Start: 2 End: 3 take 1 capsule by mouth once daily omeprazole (PRILOSEC) 40 mg capsule Take 40 mg by mouth once daily. 0 02/16/2022 03/18/2023 Discontinued Start: 02-12-2014 End: 03-19-2022 omeprazole (PRILOSEC) 20 mg capsule Comment on above: Take 40 mg by mouth once daily. ondansetron 4 mg disintegrating oral tablet (10 sources) Serotonin-3 Receptor Antagonist Start: take 1 tablet by mouth every six hours as needed for nausea ondansetron 4 mg Dis Tab 4 mg = 1 tab(s), Oral, q6hr, PRN Nausea/Vomiting, Refills(s) 0 Start Date: 01/03/25 Status: Ordered Repeat number: 1 Start: 10-14-2021 take 1 tablet by layo th every eight hours as needed for nausea Zofran 4 mg Tab 4 mg = 1 tab(s), Oral, q8hr, PRN Nausea/Vomiting, # 12 tab(s), Refills(s) 0, Pharmacy: [facility]/pharmacy #[id number], 152, cm, 10/13/21 23:36:00 EDT, Height/Length Dosing, 71.7, kg, 10/13/21 23:36:00 EDT, Weight Dosing Start Date: 10/14/21 Status: Ordered Start: 10-12-2021 take 1 tablet by layo th every eight hours as needed for nausea Zofran 4 mg Tab 4 mg = 1 tab(s), Oral, q8hr, PRN Nausea/Vomiting, # 12 tab(s), Refills(s) 0, Pharmacy: [facility]/pharmacy #[id number], 152.4, cm, 10/09/21 9:00:00 EDT, Height/Length Dosing, 78, kg, 10/09/21 9:00:00 EDT, Weight Dosing Start Date: 10/12/21 Status: Ordered End: 01-26-2025 take 1 tablet by mouth every eight hours as needed ondansetron orally disintegrating (ZOFRAN ODT) 4 mg disintegrating tablet Take 4 mg by mouth every 8 hours as needed. 01/26/2025 Discontinued End: 04-09-2023 ondansetron (ZOFRAN) 8 mg ta [...] above: Take 1 tablet by layo every 4 hours as needed for pain for up to 7 days. One BID pantoprazole 40 mg delayed release oral tablet (20 sources) Proton Pump Inhibitor Start: End: take 1 tablet by mouth once daily pantoprazole DR (PROTONIX) 40 mg tablet Take 1 tablet by mouth once daily. 90 tablet 3 03/09/2025 03/04/2026 Active Start: 10-12-2021 take 1 tablet by layo twice daily Protonix 40 mg Tab-EC 40 mg = 1 tab(s), Oral, BID, # 60 tab(s), Refills(s) 0, Pharmacy: [facility]/pharmacy #[id number], 152.4, cm, 10/09/21 9:00:00 EDT, Height/Length Dosing, 78, kg, 10/09/21 9:00:00 EDT, Weight Dosing Start Date: 10/12/21 Status: Ordered Comment on above: Take 1 tablet by layo every afternoon. predniSONE 10 mg oral tablet (1 source) Start: 11-08-19 Prednisone 10 mg tablet Active 10 MG PO As Directed 25 03November 07, 2024 12:00am 4 tablets x 3 days, 2 tablets x 3 days, 1 tablet x 3 days vit-iron fumarate-fa ( MULTIVITAMINS) 28 mg iron- 800 mcg tab (3 sources) Start: 01-31-20 take 1 tablet by mouth once daily vit-iron fumarate-fa ( MULTIVITAMINS) 28 mg iron- 800 mcg tab Take 1 tablet by mouth once daily. 90 tablet 3 01/30/2025 Active promethazine hydrochloride 12.5 mg oral tablet (20 sources) Phenothiazine Start: 01-27-20 End: 02-03-20 take 12.5-25 mg by mouth every six hours as needed promethazine (PHENERGAN) 12.5 mg tablet Take 1-2 tablets by mouth every 6 hours as needed for nausea/vomiting for up to 7 days. 40 tablet 01/26/2025 02/02/2025 Active Start: 12-24-2022 End: 04-09-2023 take 25 mg rectal route every six hours as needed for nausea Phenergan 25 mg Supp 25 mg = 1 supp, Rectal, q6hr, PRN Nausea/Vomiting, # 6 EA, Refills(s) 0, Pharmacy: [facility]/pharmacy #[id number], 152, cm, 12/23/22 19:46:00 EDT, Height/Length Dosing, 58, kg, 12/23/22 19:46:00 EDT, Weight Dosing Start Date: 12/24/22 Status: Ordered Start: 10-20-2022 take 1 tablet by layo th every six hours as needed for nausea promethazine 25 mg Tab 25 mg = 1 tab(s), Oral, q6hr, PRN as needed for nausea/vomiting, # 16 tab(s), Refills(s) 0, Pharmacy: [facility]/pharmacy #[id number], 152.4, cm, 10/20/22 0:45:00 EDT, Height/Length [...] BY MOUTH EVERY DAY 90 capsule 3 05/15/2024 Active Start: 06-25-2023 propranolol (I NDERAL) 20 mg tablet Indications: Palpitations Take 1 tablet by mouth as directed. Take 20 mg as needed for sustained palpitations. Can repeat 20 mg every 6-8 hrs if needed. 30 tablet 1 06/25/2023 Active Propranolol HCl 20 MG Oral for 8 Days Active Comment on above: Take 1 tablet by layo th as directed. Take 20 mg as needed for sustained palpitations. Can repeat 20 mg every 6-8 hrs if needed. Take 1 capsule by mo [facility] once daily. Protonix 40 mg Tab-EC (3 sources) Start: 022 take 1 tablet by mouth twice daily Protonix 40 mg Tab-EC 40 mg = 1 tab(s), Oral, BID, # 60 tab(s), Refills(s) 0, Pharmacy: [facility]/pharmacy #[id number], 152.4, cm, 10/09/21 9:00:00 EDT, Height/Length [...] day(s), # 180 cap(s), Refills(s) 0, Pharmacy: [facility]/pharmacy #[id number], 152.4, cm, 10/22/22 10:27:00 EDT, Height/Length [...] day(s), # 56 tab(s), Refills(s) 0, Pharmacy: [facility]/pharmacy #[id number], 152.4, cm, 10/20/22 0:45:00 EDT, Height/Length Dosing, 61.2, kg, 10/20/22 0:45:00 EDT, Weight Dosing Start Date: 10/20/22 Stop Date: 11/03/22 Status: Ordered Start: 07-29-2022 End: 08-12-2022 take 1 tablet by mouth four times daily Carafate 1 gram Tab 1 gm = 1 tab(s), Oral, QID, X 14 day(s), # 56 tab(s), Refills(s) 0, [id number], cm, 07/29/22 2:29:00 EST, Height/Length Dosing, 64, kg, 07/29/22 2:29:00 EST, Weight Dosing Start Date: 07/29/22 Stop Date: 08/12/22 Status: Ordered Start: 10-14-2021 take 1 tablet by layo th four times daily Carafate 1 gram Tab 1 gm = 1 tab(s), Oral, QID, # 240 tab(s), Refills(s) 0, Pharmacy: [facility]/pharmacy #[id number], 152, cm, 10/13/21 23:36:00 EDT, Height/Length Dosing, 71.7, kg, 10/13/21 23:36:00 EDT, Weight Dosing Start Date: 10/14/21 Status: Ordered Start: 10-14-2021 take 1 tablet by layo four times daily Carafate 1 gram Tab 1 gm = 1 tab(s), Oral, QID, # 240 tab(s), Refills(s) 0, [id number] 152, cm, 10/13/21 23:36:00 EDT, Height/Length Dosing, 71.7, kg, 10/13/21 23:36:00 EDT, Weight Dosing Start Date: 10/14/21 Status: Ordered Start: 10-12-2021 take 2 tablets by mo [facility] four times daily Carafate 1 gram Tab 2 gm = 2 tab(s), Oral, QID, # 240 tab(s), Refills(s) 0, [id number], 152.4, cm, 10/09/21 9:00:00 EDT, Height/Length Dosing, 78, kg, 10/09/21 9:00:00 EDT, Weight Dosing Start Date: 10/12/21 Status: Ordered SUMAtriptan 50 mg oral tablet (20 sources) Serotonin-1b and Serotonin-1d Receptor Agonist Start: 07-31-2024 take 1 tablet by mouth every two hours as needed for headache SUMAtriptan (IMITREX) 50 mg tablet Take 1 tablet (50 mg) by mouth as needed for migraine headache (see administration instructions). at onset of headache. May repeat after 2 hours. 27 tablet 1 07/31/2024 Active Start: 02-28-2022 End: 07-31-2024 take 1 tablet by mouth twice daily as needed for headache SUMAtriptan (IMITREX) 50 mg tablet TAKE 1 TABLET BY MOUTH TWICE DAILY NEEDED AT ONSET OF HEADACHE MAY REPEAT IN 1 HOUR 02/28/2022 07/31/2024 Discontinued Start: 01-23-2004 End: 03-19-2022 take 1 tablet by mouth once daily as needed for headache Imitrex 100 mg Tab 100 mg = 1 tab(s), Oral, Daily, PRN as needed for migraine headache, Refills(s) 0 Start Date: 11/30/18 Status: Ordered Repeat number: 1 SUMAtriptan (Imi trex) 50 MG tablet every 12 (twelve) hours. Active Comment on above: 1 at onset, may repe at x 1. TAKE 1 TABLET BY LAYO TH TWICE DAILY NEEDED AT ONSET OF HEADACHE MAY REPEAT IN 1 HOUR tiZANidine 4 mg oral tablet (20 sources) Central alpha-2 Adrenergic Agonist Start: 5 take 1 tablet by mouth once daily at bedtime tiZANidine (ZANAFLEX) 4 mg tablet Indications: Neck pain , Upper back pain , TMJ disorder, unspecified Take 1 tablet by mouth daily at bedtime. 90 tablet 1 10/19/2024 Active Start: 09-07-2023 End: 12-29-2023 take 1 tablet by mouth every six [...] bedtime), # 30 tab(s), Refills(s) 5, Pharmacy: [id number], 160, cm, 03/20/20 16:08:00 EDT, Height/Length Dosing, 79.7, kg, 03/20/20 16:08:00 EDT, Weight Dosing Start Date: 03/20/20 Status: Ordered triamcinolone acetonide 1 mg/ml topical cream (1 source) Corticosteroid Start: Triamcinolone Acetonide 0.1 % 1 application to affected area Externally Twice a day for 14 days Jul, Active Turmeric extract (4 sources) Turmeric 500 MG capsule 1 (one) time each day at the same time. Active vancomycin 125 mg oral capsule (2 sources) Glycopeptide Antibacterial Start: End: take 1 capsule by mouth every six hours vancomycin 125 mg Cap 125 mg = 1 cap(s), Oral, q6hr, X 8 day(s), # 32 cap(s), Refills(s) 0, 0, Stop date 10/20/21 10:07:00 EDT, Route to Pharmacy Electronically, Pharmacy: [facility]/pharmacy #[id number], 152.4, cm, 10/09/21 9:00:00 EDT, Height/Length Dosing, 78, kg, 10/09/21 9:00:00 E... Start Date: 10/12/21 Stop Date: 10/20/21 Status: Ordered vitamin b12 1 mg oral tablet (20 sources) Vitamin B12 Start: 024 take 1 tablet by mouth once cyanocobalamin (VITAMIN B-12) 1,000 mcg tab Take 1 tablet by mouth every afternoon. 07/27/2023 Active Start: 11-07-2022 End: 04-09-2023 take 1 tablet by mouth once cyanocobalamin (VITAMIN B- 12) 1,000 mcg tab Take 1 tablet by mouth every afternoon. 07/27/2023 Active Comment on above: Take 1,000 mcg by mo uth once daily. Take 1 tablet by layo th every afternoon. Vitamin B12 1000 mcg Tab (4 sources) Start: 11-07-2022 take 1 tablet by mouth once daily Vitamin B12 1000 mcg Tab 1,000 mcg = 1 tab(s), Oral, Daily, # 30 tab(s), Refills(s) 0, Pharmacy: [facility]/pharmacy #[id number], 152.4, cm, 11/06/22 14:36:00 EDT, Height/Length Dosing, 59.5, kg, 11/06/22 14:36:00 EDT, Weight Dosing Start Date: 11/07/22 Status: Ordered Quantity: 30.0 Unit: tab(s) Repeat number: 1 Start: 11-07-2022 take 1 tablet by layo th once daily Vitamin B12 1000 mcg Tab 1,000 mcg = 1 tab(s), Oral, Daily, # 30 tab(s), Refills(s) 0, Pharmacy: [facility]/pharmacy #[id number], 152.4, cm, 11/06/22 14:36:00 EDT, Height/Length Dosing, 59.5, kg, 11/06/22 14:36:00 EDT, Weight Dosing Start Date: 11/07/22 Status: Ordered Zofran ODT 4 mg Tab-Dis (1 source) Start: 01-04-2025 take 1 tablet by mouth every eight hours as needed for nausea Zofran ODT 4 mg Tab-Dis 4 mg = 1 tab(s), Oral, q8hr, PRN Nausea/Vomiting, # 20 tab(s), Refills(s) 0, Pharmacy: [facility]/pharmacy #[id number], 152.4, cm, 01/02/25 21:23:00 EDT, Height/Length Dosing, 82.1, kg, 01/02/25 21:23:00 EDT, Weight Dosing Start Date: 01/04/25 Status: Ordered Quantity: 20.0 Unit: tab(s) Repeat number: 1 Completed/Discontinued Medications Medication Drug Class(es) Dates Sig [...] Refills(s) 0 Start Date: 02/19/22 Status: Ordered take 2 tablets by mo ut in the morning busPIRone (Buspar) 10 MG tablet Take 2 tablets by mouth in the morning and 2 tablets before bedtime. Active Comment on above: TAKE 1 TABLET BY LAYO TH TWICE A DAY FOR 30 DAYS Take 10 mg by mouth three times a day. cyclobenzaprine hydrochloride 10 mg oral tablet (20 sources) Muscle Relaxant Start: 08-25-19 End: 09-14-19 24 take 1 tablet by mouth three times [...] Take 1 tablet by layo th once daily as needed. Take 1 tablet by layo th three times a day for 20 days. etonogestrel 68 mg drug implant (7 sources) Progestin Start: 9 End: 3 etonogestrel (NEXPLANON) 68 mg impl subdermal implant Inject 68 mg subcutaneously. 0 12/08/2018 03/26/2023 Discontinued Comment on above: Inject 68 mg subcuta neously. lithium carbonate 300 mg oral capsule (2 sources) End: 3 take 1 capsule by mouth three times daily lithium carbonate (ESKALITH) 300 mg capsule TAKE ONE CAPSULE BY MOUTH THREE TIMES A DAY FOR 30 DAYS 0 04/09/2023 Discontinued Comment on above: TAKE ONE CAPSULE BY MOUTH THREE TIMES A DAY FOR 30 DAYS magnesium oxide 200 mg oral tablet (3 sources) Start: 5 End: 5 take 2 tablets by mouth once daily magnesium oxide 200 mg magnesium tab Take 2 tablets by mouth once daily. 02/19/2025 03/01/2025 Discontinued Start: 01-12-2022 End: 01-17-2022 take 1 tablet by mouth once daily magnesium oxide 400 mg Tab 400 mg = 1 tab(s), Oral, Daily, X 5 day(s), # 5 tab(s), Refills(s) 0, Pharmacy: [facility]/pharmacy #[id number], 152, cm, 01/12/22 9:47:00 EDT, Height/Length Dosing, 68, kg, 01/12/22 9:47:00 EDT, Weight Dosing Start Date: 01/12/22 Stop Date: 01/17/22 Status: Ordered mupirocin 0.02 mg/mg topical ointment (2 sources) RNA Synthetase Inhibitor Antibacterial Start: 08-05-2023 End: 08-10-2023 mupirocin (BACTROBAN) 2 % ointment Apply 0.5 [...] tablet (8 sources) Nonsteroidal Anti-inflammatory Drug End: 04-09-2023 take 1 tablet by mouth twice daily naproxen (NAPROSYN) 250 mg tablet Take 1 tablet by mouth two times a day. 0 Active Comment on above: Take 250 mg by mouth two times a day with meals. Take 1 tablet by layo th two times a day. Nexplanon 68 mg subcutaneous implant (1 source) Start: 12-08-2018 Nexplanon 68 mg subcutaneous implant 68 mg = 1 EA, Refills(s) 0 Start Date: 12/08/18 Status: Ordered nitroglycerin 0.3 mg sublingual tablet (12 sources) Nitrate Vasodilator Start: 12-12-2024 End: 03-01-2025 take 1 tablet under the tongue once nitroglycerin sublingual (NITROQUICK) 0.3 mg SL tablet Indications: SOB (shortness of breath) , Wheezing Dissolve 1 tablet under the tongue one time only for 1 dose. To be administered in Radiology for CTA exam 1 tablet 12/12/2024 03/01/2025 Discontinued norgestimate-ethiny l estradiol (MARIA EUGENIA ORAL) (16 sources) take 1 tablet by mouth once daily norgestimate-ethiny l estradiol (MARIA EUGENIA ORAL) Take 1 tablet by mouth once daily. 0 Active Comment on above: Take 1 tablet by layo th once daily. potassium chloride 20 meq extended release oral tablet (13 sources) Start: 12-24-2022 End: 04-09-2023 take 1 tablet by mouth [...] diarrhea, # 30 tab(s), Refills(s) 0, Pharmacy: [facility]/pharmacy #[id number], 152, cm, 11/13/21 12:21:00 EDT, Height/Length Dosing, [...] Sep, Not-Taking/PRN QUEtiapine 50 mg oral tablet (17 sources) Atypical Antipsychotic Start: 4 End: 4 [...] Date Documented Da te Episodic/Chronic Abdominal pain (15 sources) Abdominal pain; Translations: [Unspecified abdominal pain] Onset: 2 Episodic Administrative/social admission (2 sources) Patient encounter status; Translations: [Persons encountering health services in other specified circumstances] 04-07-2023 Episodic Allergic reactions (2 sources) Irritant contact dermatitis, unspecified cause; Translations: [Contact dermatitis and other eczema, unspecified cause] Episodic Anxiety disorders (20 sources) Anxiety disorder; [...] Onset: 2 Chronic Disorders of lipid metabolism (20 sources) Hyperlipidemia; Translations: [Hyperlipidemia, unspecified] Onset: 0 Chronic Disorders usually diagnosed in infancy, childhood, or adolescence (2 sources) Attention deficit hyperactivity disorder, predominantly inattentive type; Translations: [Other specified behavioral and emotional disorders with onset usually occurring in childhood and adolescence] 10-05-2024 Chronic Esophageal disorders (20 sources) Gastroesophageal reflux disease without esophagitis; Translations: [Gastro-esophageal reflux disease without esophagitis] Onset: 2 Chronic Essential hypertension (2 sources) Elevated blood pressure; Translations: [Essential (primary) hypertension] 04-07-2023 Chronic Fluid and electrolyte disorders (20 sources) Hypokalemia; Translations: [Hypokalemia] Onset: 2 Resolved: 3 Episodic Gastritis and duodenitis (1 source) Gastritis; Translations: [Gastritis, unspecified, without bleeding] Onset: 2 Episodic Gastroduodenal ulcer (except hemorrhage) (20 sources) Gastric ulcer; Translations: [Gastric ulcer, unspecified as acute or chronic, without hemorrhage or perforation] Onset: 2 Chronic Gastrointestinal hemorrhage (1 source) Hematemesis; Translations: [Hematemesis] Onset: 2 Episodic Headache; including migraine (20 sources) Migraine; Translations: [Migraine] Onset: 3 Resolved: 3 10-29-2003 Chronic Hemorrhoids (10 sources) Hemorrhoids; Translations: [Unspecified hemorrhoids] Onset: 3 Episodic Immunizations and screening for infectious disease (2 sources) Viral screening status; Translations: [Encounter for screening for other viral diseases] Onset: 5 10-05-2024 Episodic Intestinal infection (20 sources) Clostridium difficile [...] malformations of brain] Onset: 3 04-07-2023 Chronic Nutritional deficiencies (20 sources) Vitamin D deficiency; Translations: [Vitamin D deficiency, unspecified] Onset: 5 10-05-2024 Chronic Other connective tissue disease (2 sources) [...] Onset: 3 04-09-2023 Chronic Other gastrointestinal disorders (14 sources) Diarrhea; Translations: [Diarrhea, unspecified] Onset: 2 Episodic Other gastrointestinal disorders (1 source) Diarrhea of presumed infectious origin; Translations: [Diarrhea, unspecified] Episodic Other gastrointestinal disorders (1 source) Abnormal feces; Translations: [Other fecal abnormalities] Onset: 3 Episodic Other gastrointestinal disorders (8 sources) Loose stool 10-22-2022 Episodic Other hereditary and degenerative nervous system conditions (2 sources) Myelopathy in diseases classified elsewhere; Translations: [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)] Onset: 4 Chronic Other liver diseases (2 sources) Steatosis of liver; Translations: [Fatty (change of) liver, not elsewhere classified] 01-27-2025 Chronic Other liver diseases (1 source) Fatty (change of) liver, not elsewhere classified; Translations: [Fatty liver] Onset: 5 Chronic Other lower respiratory disease (9 sources) Dyspnea; Translations: [Shortness of breath] 12-12-2024 Episodic Other lower respiratory disease (9 sources) Wheezing; Translations: [Wheezing] 12-12-2024 Episodic Other lower respiratory disease (2 sources) Shortness of breath; Translations: [SOB (shortness of breath)] Onset: 5 Episodic Other lower respiratory disease (2 sources) Wheezing; Translations: [Wheezing] Onset: 5 Episodic Other nervous system disorders (4 sources) Chiari malformation type I; Translations: [Compression of brain] 03-05-2023 Chronic Other nervous system disorders (4 sources) Inattention; Translations: [Attention and concentration deficit] Onset: 3 02-24-2023 Chronic Other nervous system disorders (1 source) [...] Episodic Other nutritional; endocrine; and metabolic disorders (17 sources) Weight loss 02-02-2022 Episodic Other nutritional; endocrine; and metabolic disorders (1 source) Weight increased; Translations: [Abnormal weight gain] 10-05-2024 Episodic Other upper respiratory disease (4 sources) Chronic rhinitis; Translations: [Chronic rhinitis] Onset: 3 02-24-2023 Chronic Other upper respiratory infections (4 sources) Chronic [...] organs] Onset: 2 Episodic Residual codes; unclassified (17 sources) Family history of cancer of colon 02-02-2022 Episodic Residual codes; unclassified (1 source) Forgetful; Translations: [Other general symptoms and signs] 01-26-2025 Episodic Residual codes; unclassified (1 source) Other general symptoms and signs; Translations: [Forgetfulness] Onset: 5 Episodic Spondylosis; intervertebral disc disorders; other back problems (2 sources) 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; Translations: [Other cervical disc displacement, unspecified cervical region] 06-18-2023 Chronic Substance-related disorders (20 sources) Nicotine [...] UNSPECIFIED; Translations: [COUGH, UNSPECIFIED] Onset: 2 Unclassified (10 sources) Liver function test increased 07-30-2022 Past or Other Problems Problem Classification Problem [...] 2 Episodic Other aftercare (1 source) Other shelter (current) drug therapy; Translations: [OTH ACCOUNTS PAYABLE TECHNICIAN CURRENT DRUG THERAPY] Onset: 2 Episodic Other aftercare (2 sources) Surgical follow-up; Translations: [Encounter for follow-up examination after completed treatment for conditions other than malignant neoplasm] 03-09-2024 Episodic Other connective tissue disease (20 sources) [...] Onset: 3 Episodic Other upper respiratory disease (3 sources) Retropharyngeal abscess; Translations: [Retropharyngeal and parapharyngeal abscess] [...] ; Translations: [ with history of ] Unclassified (1 source) Patient encounter status 10-05-2024 Results Test Name Value Interpretation Reference Range Facility [facility] 03-01-2025 CNOV Office Visit ([facility] ) DIMITRILADI GONZALES ([id number]) 1985 F Date Time Provider Department 03/01/25 11:00 AM REUBEN AGRAWAL [facility] During your visit today, we recorded [...] [facility] they will contact you with pickup instructions and dosing details. You'll start low - and titrate up to 4.5mg to take daily - An order for a TENS unit (electrical stimulator) has been placed through [facility]; expect their call within 1-2 days [...] and arms. Neck and Back Pain: - Ladi Byers reports worsening pain in the back, [...] management strategies. Reuben Agrawal PA-C Recording using [employer] software for draft documentation of the visit was discussed with the patient/authorized customer service representative teacher; all questions welcomed and answered. Patient/authorized customer service representative teacher agreed to proceed Allergies As of Date: 03/01/2025 Noted Allergy Reaction CARIPRAZINE 06 (more content not included)... Normal [facility] CNPNon 02-19-2025 CNPN Telephone ([facility]) LADI BYERS ([id number]) 1985 F Date Time Provider Department 02/19/25 REUBEN AGRAWAL [facility] During your visit today, we recorded the following information about you: Reuben Agrawal PA-C 02/19/2025 12:24 PM Signed Received updated Rx list from [facility]. Updated psych medication Reuben Agrawal PA-C Allergies As of Date: 02/19/2025 Noted Allergy Reaction CARIPRAZINE 12/29/2021 14 - Other: See Comments 16 - Unknown METOCLOPRAMIDE 08/10/2013 14 - Other: See Comments PENICILLINS 12/18/2018 4 - Hives REGLAN (METOCLOPRAMIDE HCL) 12/30/2009 1 - Mental Status Change Date Reviewed: 01/29/2025 Reviewed by: Tess Jim, HOME STAGING SPECIALIST - Fully Assessed Reason for Visit: Received [...] daily. BUPROPION XL 150 MG TAB 02/19/2025 C (more content not included)... Normal [facility] LUNG DIFFUSION CAPACITY (JACKELYN O)on 01-29-2025 LUNG DIFFUSION CAPACITY (DLCO) [facility] Office Building [address] [place] [address] Test Date: 2025-01-29 Pat Name: LADI BYERS Department: Room: Gender: Female [employer]ing: : 1985 Requested By: Order Number: [id number] Reading MD: Willy Castaneda MD Interpretive Statements [...] 16:56:16 EDT by Willy Castaneda MD ID: [id number] Name: LADI BYERS Race: White Ht: 60.43 in Wt: 182.10 lbs Age: 39 Gender: Female : 1985 Dx: Shortness of breath Smoking Hx: Non-smoker Doctor: FRANCHESCA LOW Test Date: 01/29/2025 Site: [facility] Tech: Tess Jim PRE-BRONCH POST-BRONCH Donnie [...] 90-100 1.20 3 FIVC 3.34 3.30 -1 [id number] 3.28 1.79 2.94 4.33 111 0.43 3.43 [...] were repeatable. Last patient height taken 01/29/2025 Normal [facility] No Panel Informationon 01-29 [place] [address] Test Date: 2025-01-29 Pat Name: LADI BYERS Department: Room: Gender: Female [employer]ing: : 1985 Requested By: Order Number: [id number] Reading MD: Willy Castaneda MD Interpretive Statements [...] 16:56:16 EDT by Willy Castaneda MD ID: [id number] Name: LADI BYERS Race: White Ht: 60.43 in Wt: 182.10 lbs Age: 39 Gender: Female : 1985 Dx: Shortness of breath Smoking Hx: Non-smoker Doctor: FRANCHESCA LOW Test Date: 01/29/2025 Site: [facility] Tech: Tess Jim PRE-BRONCH POST-BRONCH Donnie LLN [...] 90-100 1.20 3 FIVC 3.34 3.30 -1 [id number] 3.28 1.79 2.94 4.33 111 0.43 3.43 [...] were repeatable. Last patient height taken 01/29/2025 PULMONARY FUNCTION LAB [facility] SPIROMETRY - BASELINE AND PO ST KATIUSKAATORon 01-29-2025 DLCO (ml/min/mmHg) 16.18 ml/min/mmHg [facility] DLCO LLN (ml/min/mmHg) 15.49 ml/min/mmHg [facility] DLCO PREDICTED (ml/min/mmHg) 19.57 ml/min/mmHg [facility] DLCO ULN (ml/min/mmHg) 24.42 ml/min/mmHg [facility] DLCO/VA (ml/min/mmHg/L) 0.04 ml/min/mmHg /L [facility] DLCO/VA PREDICTED (ml/min/mmHg/L) 0.05 ml/min/mmHg /L [facility] DLCO/VAcor (ml/min/mmHg/L) 0.04 ml/min/mmHg /L [facility] DLCOcor (ml/min/mmHg) 16.01 ml/min/mmHg [facility] DLCOcor PREDICTED (ml/min/mmHg) 19.57 ml/min/mmHg [facility] ERV PREDICTED (L) 0.99 L/S [facility] FEF25% POST (L/S) 6.65 L/S [facility] FEF25% PRE (L/S) 5.77 L/S [facility] [id number]% LLN (L/S) 1.79 L/S [facility] [id number]% POST (L/S) 3.43 L/S [facility] [id number]% PRE (L/S) 3.28 L/S [facility] [id number]% PREDICTED (L/S) 2.94 L/S [facility] FEF75% LLN (L/S) 0.52 L/S [facility] FEF75% POST (L/S) 1.24 L/S [facility] FEF75% PRE (L/S0 1.21 L/S [facility] FEF75% PREDICTED (L/S) 1.09 L/S [facility] FEF75% ULN (L/S) 2.06 L/S [facility] FET POST (S) 6.12 S [facility] FET PRE (S) 5.53 S [facility] FEV1 LLN (L) 1.89 L [facility] FEV1 PRE (L) 2.67 L [facility] FEV1 PREDICTED (L) 2.5 L [facility] FEV1 ULN (L) 3.07 L [facility] FEV1/FVC LLN (%) 73 % [facility] FEV1/FVC POST (%) 84 % [facility] FEV1/FVC PRE (%) 83 % [facility] FEV1/FVC PREDICTED (%) 84 % [facility] FEV1_POST (L) 2.71 L [facility] FVC LLN (L) 2.26 L [facility] FVC POST (L) 3.23 L [facility] FVC PRE (L) 3.21 L [facility] FVC PREDICTED (L) 2.96 L [facility] FVC ULN (L) 3.68 L [facility] IC PREDICTED (L) 1.97 L/S [facility] PEF LLN (L/S) 4.91 L/S [facility] PEF POST (L/S) 6.66 L/S [facility] PEF PRE (L/S) 6.07 L/S [facility] PEF ULN (L/S) 7.96 L/S [facility] SVC LLN (L) 2.26 L/S [facility] SVC PREDICTED (L) 2.96 L/S [facility] SVC ULN (L) 3.68 L/S [facility] VA (L) 4.3 L [facility] VA PREDICTED (L) 4.3 L [facility] SPIROMETRY - BASELINE AND POST DILATOR [facility] Office [place] [address] Test Date: 2025-01-29 Pat Name: LADI BYERS Department: Room: Gender: Female Sp[employer]ing: : 1985 Requested By: Order Number: [id number] Reading MD: Willy Castaneda MD Interpretive Statements [...] 16:56:16 EDT by Willy Castaneda MD ID: [id number] Name: LADI BYERS Race: White Ht: 60.43 in Wt: 182.10 lbs Age: 39 Gender: Female : 1985 Dx: Shortness of breath Smoking Hx: Non-smoker Doctor: FRANCHESCA LOW Test Date: 01/29/2025 Site: [facility] Tech: Tess Jim PRE-BRONCH POST-BRONCH Donnie [...] 90-100 1.20 3 FIVC 3.34 3.30 -1 NFD94-85 3.28 1.79 2.94 4.33 111 0.43 3.43 [...] 84 % FEV1/FVC_LLN (%) : 73 % HVF05_RAF (L/S) : 5.77 L/S WMU62_OWFI (L/S) : 6.65 L/S FTC18_OZV (L/S) : 1.21 L/S LTG53_OOKO (L/S) : 1.24 L/S RCY45_CAXR (L/S) : 1.09 L/S IBU58_KUW (L/S) : 0.52 L/S CGJ42_OUK (L/S) : 2.06 L/S KSG49-38%_PRE (L/S) : 3.28 L/S TGV56-63%_POST (L/S) : 3.43 L/S SQN85-72%_PRED (L/S) : 2.94 L/S BZM95-99%_LLN (L/S) : 1.79 L/S PEF_PRE (L/S) : [...] 19.57 ml/min/mmHg DLCO/VACOR (ML/MIN/MMHG/L) : 0.04 ml/min/mmHg/L [facility], SERUMon 01-27-2025 Folate [Mass/Vol] 3.8 ng/mL Low 4.7 - PINF ng/mL [facility] Folate [Mass/Vol]on 01-28-20 Interpretation and review of laboratory results Abnormal [facility] No Panel Informationon 01-27 Interpretation and review of laboratory results Normal [facility] TSH W/REFLEX FT4on TSH Qn 1.08 m[IU]/L [facility] Comment on above: If the patient is pr egnant, TSH reference range varies by gestational period: First Trimester (weeks 9-12): 0.180-2.990 mIU/L Second Trimester: 0.110-3.980 mIU/L Third Trimester: 0.480-4.710 mIU/L Oziel Chan et al. A Practical Approach for the Verifications and Determination of Site- and Trimester-Specific Reference Intervals for Thyroid Function tests in . Thyroid, 2019:29:3:412-420. Soren Christensen, et al. 2017 Guidelines of the [place] Thyroid Association for the Diagnosis and Management of Thyroid Disease during and the . Thyroid, 2017:27:3:315-389. VITAMIN B12on 01-27-2025 Cobalamin (Vitamin B12) [Mass/Vol] 614 pg/mL 232 - 1245 pg/mL [facility] CNOVon 01-26-2025 CNOV Office Visit (INMSHE ) LADI BYERS ([id number]) 1985 F Date Time Provider Department 01/26/25 9:20 AM REUBEN AGRAWAL INNDCHRIS During your visit today, we recorded the following information about you: Temperature Pulse Blood pressure Weight 97 degrees 63/minute 103/73 80.7 kg Height 1.54 m Reuben Agrawal PA-C 01/27/2025 8:36 PM Signed Subjective Ladi Byers is a 39 year old female. [...] pain: She recently was seen at the [facility] for N/V/Epigastric pain then went for evaluation at [facility] ER for same symptoms. At [facility], she was admitted and had CT [...] (per pt report). Will request records from [facility] - I'm able to see the labs [...] Meredith L, PA-C 01/26/2025 10:20 AM Signed [facility] Many physicians, nurse practitioners and physician assistants General gastroenterology, procedures as well as specialty care including hepatology Phone number: [phone] Address: [address] [place] [address] [place] [address] [email or web address] Marisol Hannah RN 02/05/2025 2:56 PM Signed Progress note printed and faxed to Bre Tineo CNP at [phone] as requested. Transmission received with request for [...] type [R11.2] Other Visit Diagnoses:Fatty liver [K76.0] Forget (more content not included)... Normal [facility] CNPNon 01-26-2025 CNPN Telephone ([facility]) LADI BYERS ([id number]) 1985 F Date Time Provider Department 01/26/25 REUBEN AGRAWAL [facility] During your visit today, we recorded the [...] chart. Scan on 01/30/2025 11:32 AM by ProviderCharles PA-C: Consultation - Emergency Medicine Reuben Agrawal PA-C [...] Reason for Visit: Request Outside Medical Records [1803] Cmt: Joce-Arron Prescriptions as of 02/01/2025 - vit-iron fumarate-fa [...] Encounter Status:Closed by GODFREY MARTIN on 01/26/25 Normal [facility] Folate SerPl-mCncon 01-27-20 Folate [Mass/Vol] 3.8 ng/mL Low >4.7 [facility] Comment on above: Order Comment: Speci men Type: BLOOD SPECIMENOrdering Facility: [facility] Address: [address] [place] [address] Performed By: #### 2 132-9, 2284-8, TSHRF ####[facility] LABCLIA [id number] [address] [place] HbA1c (Bld)on 01-26-2025 Average glucose Estimated from glycated hemoglobin (Bld) [Mass/Vol] 103 mg/dL [facility] Comment on above: eAG: (Estimated aver age glucose) is a calculated value from HgbA1c and is customer service representative teacher of the average blood glucose level in the last 2-3 month period. HbA1c (Bld) [Mass fraction] 5.2 % 4.3 - 5.6 % [facility] Comment on above: [place] Diabetes As sociation guidelines indicate that patients with HgbA1c in the range 5.7-6.4% are at increased risk for development of diabetes, and intervention by lifestyle modification may be beneficial. HgbA1c greater or equal to 6.5% is considered diagnostic of diabetes. [facility] Average glucose Estimated from glycated hemoglobin (Bld) [Mass/Vol] 103 mg/dL Normal [facility] Comment on above: Order Comment: Speci men Type: BLOOD SPECIMENOrdering Facility: [facility] Address: [address] [place] [address] Result Comment: eAG: (Estimated average glucose) is a calculated value from HgbA1c and is customer service representative teacher of the average blood glucose level in the last 2-3 month period. Performed By: #### 5 5454-3 ####[facility] LABIA [id number] [address] [place] HbA1c (Bld) [Mass fraction] 5.2 % Normal 4.3-5.6 [facility] Comment on above: Order Comment: Speci men Type: BLOOD SPECIMENOrdering Facility: [facility] Address: [address] [place] [address] Result Comment: Amer ican Diabetes Association guidelines indicate that patients with HgbA1c in the range 5.7-6.4% are at increased risk for development of diabetes, and intervention by lifestyle modification may be beneficial. HgbA1c greater or equal to 6.5% is considered diagnostic of diabetes. Performed By: #### 5 5454-3 ####[facility] LABCLIA [id number] [place] [address] [place] Methylmalonate SerPl-sCncon 01-26-2025 Methylmalonate [Moles/Vol] 0.10 umol/L Normal <=0.40 [facility] Comment on above: Order Comment: Caryn campos Type: BLOOD SPECIMENOrdering Facility: [facility] Address: [address] [place] [address] Result Comment: This test was developed, and its performance characteristics determined by the [facility] Department of Pathology and Laboratory Medicine. It has not been cleared or approved by the FDA. The [facility] Department of Pathology and Laboratory Medicine is regulated under CLIA as qualified to perform high-complexity testing. This test is used for clinical purposes. It should not be regarded as investigational or for research. Performed By: #### 1 3964-2 ####[facility] LABCLIA [id number] [place] [address] [place] TSH W/REFLEX FT4on TSH Qn 1.080 m[IU]/L Normal 0.270-4.200 [facility] Comment on above: Order Comment: Caryn acmpos Type: BLOOD SPECIMENOrdering Facility: [facility] Address: [address] [place] [address] Result Comment: If t he patient is , TSH reference range varies by gestational period: First Trimester (weeks 9-12): 0.180-2.990 mIU/L Second Trimester: 0.110-3.980 mIU/L Third Trimester: 0.480-4.710 mIU/L Oziel Chan et al. A Practical Approach for the Verifications and Determination of Site- and Trimester-Specific Reference Intervals for Thyroid Function tests in . Thyroid, 2019:29:3:412-420. Soren E, et al. 2017 Guidelines of the [place] Thyroid Association for the Diagnosis and Management of Thyroid Disease during and the . Thyroid, 2017:27:3:315-389. Performed By: #### 2 132-9, 2284-8, TSHRF ####[facility] LABIA [id number] [place] [id number] [place] Vit [facility]12 [facility] 025 Cobalamin (Vitamin B12) [Mass/Vol] 614 pg/mL Normal 232-1245 [facility] Comment on above: Order Comment: Speci men Type: BLOOD SPECIMENOrdering Facility: [facility] Address: [address] [place] [address] Performed By: #### 2 132-9, 2284-02, TSHRF ####[facility] [id number] [place] [address] [place] 25([place])D3 [facility] 2024 25-hydroxyvitamin D3 [Mass/Vol] 68.4 ng/mL Normal 31.0-80.0 [facility] Comment on above: Order Comment: Caryn campos Type: BLOOD SPECIMENOrdering Facility: [facility] Address: [address] [place] [address] Performed By: #### 1 989-3 ####[facility] [id number] [place] [address] [place] Creatinine and Glomerular fi ltration rate.predicted panel (S/P/Bld)on 01-25-2025 Creatinine [Mass/Vol] 0.98 mg/dL High 0.58-0.96 [facility] Comment on above: Order Comment: Caryn campos Type: BLOOD SPECIMENOrdering Facility: [facility] Address: [address] [place] [address] Performed By: #### 4 5066-8, 82053-2 ####[facility] LABCLIA [id number] [address] [address] [facility] [place]#### [address]-6 ####[facility] LABIA [id number] [address] [address] [facility] LABORATORYIA [id number] [place] [address] [place] eGFRcr SerPlBld CKD-EPI 2020 75 mL/min/1.73m??? Normal >=60 [facility] Comment on above: Order Comment: Speci men Type: BLOOD SPECIMENOrdering Facility: [facility] Address: [address] [place] [address] Result Comment: Ludivina mated Glomerular Filtration Rate [...] accurately reflect actual GFR. Performed By: #### 4 5066-8, 92276-1 ####[facility] LABIA [id number] [address] [address] [place]#### 94165-8 ####[facility] LABIA [id number] [address] [address] [facility] LABORATORYIA [id number] [place] [id number] [place] ECHOon 01-25-2025 Echocardiography Echocardiography Rep ort: Transthoracic Echo [facility] Date of service: 01/25/2025 1:40:41 PM PROFESSOR OF NURSING Ordering physician: FRANCHESCA LOW Exam indication: Shortness of Breath Technologist: Tuan Lorenzana Interpreting physician: Franchesca Low MD PATIENT: Name: MS. LADI BYERS : 1985 Age: 39 years Gender: [...] * * * Final * * * [employer] ([employer]) Medical Image : [id number] Normal [facility] HCV Ab Ser Qlon 01-25-2025 HCV Ab Ql (S) Negative Normal Negative [facility] Comment on above: Order Comment: Caryn [facility] Type: BLOOD SPECIMENOrdering Facility: [facility] Address: [address] [place] [address] Result Comment: The result suggests no evidence of infection with Hepatitis C virus. Should recent infection be suspected, repeat testing may be considered 4-6 weeks after this draw. Performed By: #### 1 6128-1 ####[facility] LABCLIA [id number] [place] [address] [place] Lipid 1996 panelon 5 Cholesterol [Mass/Vol] 257 mg/dL High <200 [facility] Comment on above: Order Comment: Caryn [facility] Type: BLOOD SPECIMENOrdering Facility: [facility] Address: [address] [place] [address] Result Comment: <200 mg/dL, Desirable 200-239 mg/dL, Borderline high >239 mg/dL, High Performed By: #### 4 5066-8, 25533-0 ####[facility] LABCLIA [id number] [facility] [id number], [place] [address] [place]#### 66245-8 ####[facility] LABCLIA [id number] [facility] [address], [address] [facility] LABORATORYCLIA [id number] [place] [address] [place] Cholesterol in HDL [Mass/Vol] 54 mg/dL Normal >39 [facility] Comment on above: Order Comment: Speci men Type: BLOOD SPECIMENOrdering Facility: [facility] Address: [address] [place] [address] Result Comment: 40-5 9 mg/dL, Acceptable >59 mg/dL, High: Negative risk factor for coronary heart disease <40 mg/dL, Low: Positive risk factor for coronary heart disease Performed By: #### 4 5066-8, 66589-9 ####[facility] LABCLIA [id number] [facility] [address], [address] [place]#### [address]-8 ####[facility] LABCLIA [id number] [facility] [address] [place] AMER[facility]AKETTER[facility] LABORATORYCLIA [id number] [place] [address] [place] Cholesterol in LDL [Mass/Vol] 165 mg/dL High <100 [facility] Comment on above: Order Comment: Speci men Type: BLOOD SPECIMENOrdering Facility: [facility] Address: [address] [place] [address] Result Comment: <100 mg/dL, Optimal 100-129 mg/dL, Near optimal/above optimal 130-159 mg/dL, Borderline high 160-189 mg/dL, High >189 mg/dL, Very high Secondary prevention optimal LDL Cholesterol levels are recommended to be <70 mg/dL LDL cholesterol is calculated using the Lim-NIH equation. Performed By: #### 4 5066-8, 72566-1 ####[facility] LABCLIA [id number] [address] [place] [address] [place]#### 18701-7 ####[facility] LABIA [id number] [address] [place] [address] [facility] LABORATORYIA [id number] [place] [address] [facility] Cholesterol in LDL/Cholesterol in HDL [Mass ratio] 3.06 {ratio} High <2.54 [facility] Comment on above: Order Comment: Speci men Type: BLOOD SPECIMENOrdering Facility: [facility] Address: [address] [place] [address] Result Comment: Refe renbradford: 1. National Cholesterol Education Program ATP III Guideline At-A-Glance Quick Desk Reference: National Heart, Lung, and Blood [place]. National Institutes of Health. 2001: NIH Publication No. 01-3305. 2. An International Atherosclerosis Society position paper: global recommendations for the management of dyslipidemia: executive summary, Atherosclerosis. 2014: 232(2):410-413. Performed By: #### 4 5066-8, 32179-4 ####[facility] LABIA [id number] [address] [place] [address] [place]#### 98720-2 ####[facility] LABIA [id number] [facility] [address] [place] [address] [facility] LABORATORYIA [id number] [place] [address] [place] [facility] Cholesterol in VLDL [Mass/Vol] 40 mg/dL High <30 [facility] Comment on above: Order Comment: Speci men Type: BLOOD SPECIMENOrdering Facility: [facility] Address: [address] [place] [address] Performed By: #### 4 5066-8, 26194-1 ####[facility] LABCLIA [id number] [facility] [place] [id number] [address] [place]#### 15291-4 ####[facility] LABCLIA [id number] [facility] [address] [place] [address] [place] [facility] LABORATORYCLIA [id number] [place] [address] [place] Cholesterol non HDL [Mass/Vol] 203 mg/dL High <130 [facility] Comment on above: Order Comment: Speci men Type: BLOOD SPECIMENOrdering Facility: [facility] Address: [address] [place] [address] Result Comment: <130 mg/dL, Optimal 130-159 mg/dL, Near optimal/above optimal 160-189 mg/dL, Borderline high 190-219 mg/dL, High >219 mg/dL, Very high Secondary prevention optimal non HDL Cholesterol levels are recommended to be <100 mg/dL Performed By: #### 4 5066-8, 50804-6 ####[facility] LABCLIA [id number] [facility] [place] [address] [place]#### 84049-6 ####[facility] LABCLIA [id number] [facility] [address] [place] [address] [place] [facility] LABORATORYCLIA [id number] [place] [address] [place] Cholesterol.total/Cho lesterol in HDL [Mass ratio] 4.76 {ratio} Normal <5.10 [facility] Comment on above: Order Comment: Speci men Type: BLOOD SPECIMENOrdering Facility: [facility] Address: [address] [place] [address] Performed By: #### 4 5066-8, 22619-6 ####[facility] LABCLIA [id number] [facility] [place] [address] [place]#### 11640-4 ####[facility] LABCLIA [id number] [facility] [address] [place] [address] [place] [facility] LABORATORYCLIA [id number] [place] [address] [place] FASTING TIME 16 hrs Normal [facility] Comment on above: Order Comment: Speci men Type: BLOOD SPECIMENOrdering Facility: [facility] Address: [address] [place] [address] Performed By: #### 4 5066-8, 09174-0 ####[facility] LABCLIA [id number] [address] [place] [address] [place]#### 28083-0 ####[facility] LABCLIA [id number] [address] [place] [address] [place] [facility] LABORATORYIA [id number] [address] [place] Triglyceride [Mass/Vol] 206 mg/dL High <150 [facility] Comment on above: Order Comment: Speci men Type: BLOOD SPECIMENOrdering Facility: [facility] Address: [address] [place] [address] Result Comment: <150 mg/dL, Normal 150-199 mg/dL, Borderline high 200-499 mg/dL, High >499 mg/dL, Very high Performed By: #### 4 5066-8, 92263-9 ####[facility] LABCLIA [id number] [address] [place] [address] [place]#### 60917-9 ####[facility] LABCLIA [id number] [address] [address] [place] [facility] LABORATORYCLIA [id number] [place] [address] [place] NT-proBNP [facility] 01-25 Natriuretic peptide.B prohormone N-Terminal [Mass/Vol] <36 Normal <125 [facility] Comment on above: Order Comment: Speci men Type: BLOOD SPECIMENOrdering Facility: [facility] Address: [address] [place] [address] Performed By: #### 4 5066-8, 22686-2 ####[facility] LABCLIA [id number] [address]#### 5[address]-4 ####[facility] LABCLIA [id number] [address] STATES OF [facility] LABORATORYCLIA [id number] [facility], [address] CNPErika 01-18-2025 CNPN Telephone (CARDLO) MODESTALADI ([id number]) 1985 F Date Time Provider Department 01/18/25 FRANCHESCA LOW During your visit today, we recorded the following information about you: Nury Ya 01/18/2025 12:01 PM Signed Ladi is calling Franchesca Low MD today because her CT scan was denied by her insurance Please advise Patient has been identified by name and birthdate. Duration of symptoms: N/A Person calling: self Call patient at: at home [phone] (home) [phone] (cell) Was an appointment scheduled: No Closing statement: Prior Authorization Calls: Thank you for calling [facility], your call will be returned within the next 24 hours or next business day. Zenaida Haynes, MOISE 01/18/2025 2:18 PM Signed Please discuss with patient about calcium score instead, and options to do at [facility] with copay $99 vs [facility]. Order placed in chart. MD Zahira Ray Kirk D, RN 01/18/2025 2:43 PM Signed Spoke to pt on phone, below information given per Dr Low Please discuss with patient about calcium score instead, and options to do at [facility] with copay $99 vs . Order placed in chart. Pt prefers to have done at , pt supplied fax number of [phone] Order faxed as requested Above number provided is not a fax # Called and faxed to [phone] Confirmed fax was received Allergies As of [...] Palpitations [R00.2] Order(s):CT CALCIUM SCORING SELF PAY [[id number]] Order #: [id number] FUTURE Prescriptions as of 01/18/2025 - cetirizine [...] myelopathy (HCC*08/24/2023 Status post cervical spinal arthrodesis [Z98 (more content not included)... Normal [facility] Surgical Pathology Reporton 01-11-2025 Surgical Pathology Report [facility] [address] [place] [address]- Surgical Pathology Report Collected Date/Time: 01/03/2025 15:22 [...] characteristics were determined by the Laboratory of [facility] Surgical Pathology. They have not been cleared [...] recognition technology and might contain unintended computerized c d still operator errors. Microscopic examination performed unless gross only specified. Quality was accessed and acceptable. Normal [facility] Comment on above: Performed By: #### 4 [id number] #### [facility] [address] [place] [address] CT Abdomen/Pelvis w/ Contras ton 01-04-2025 CT Abdomen/Pelvis w/ Contrast Exam Date/Time: 01/04/2025 11:48 EDT Reason for [...] Parikh MD Transcribed by: DEEPTHI Technologist: CLEVE Chauhan [facility] Discharge Note-Nursingon Discharge Note-Nursing Discharge Note-Nursing LADI BYERS :1985 Visit Date:01/02/2025 Inpatient Discharge Instructions [...] appointment(s). When: Follow Up with Bereket JUAREZ, Kylee Roblero [facility], [facility] When: Within 2 to 4 weeks Comments: Call for followup appointment for outpatient gastric emptying study Where: [address], [address] [place] [address]- [phone] Follow Up with TERESA PATEL When: Where: [address] [facility], [place] [address]- [phone] Business (1) Medications What How Much When Instructions Next Dose Changed ondansetron (Zofran ODT 4 mg Tab-Dis) 1 Tablets By Mouth Every 8 hours as needed for Nausea/Vomiting Pickup at [facility]/pharmacy #[id number] As needed, after 8:00 PM Unchanged brexpiprazole [...] bedtime Resume tonight at bedtime Pharmacy Information [facility]/pharmacy #[id number]: [address] [place], [place] [id number] [phone] What How Much When Comments Stop Taking [...] fL (01/03/25 06:42:00) Sodium Lvl: 138 mmol/L (07 (more content not included)... Normal [facility] Inpatient Clinical Summaryon 01-04-2025 Inpatient Clinical Summary Inpatient Clinical Summary [address] [address] Clinical Summary Person Information: Name: LADI BYERS Age: 39 Years : 1985 Sex: Female PCP: TERESA PATEL CNP Marital Status: Single Race: White Ethnicity: Non- or Language: [place] Visit Id: Visit Reason: Vomiting; Nausea; Abdominal pain; PER PATIENT, ANOTHER STOMACH ULCER, N/V, ABD PAIN, SWEATING Speciality: Acuity: Enc Type: Observation Med Service: Medical Arrival: 01/02/2025 21:13:34 Discharge: Dispo Type: Admitted as IP to this [facility] Address: [address] [place] [address] DR LAURA Pineda [facility] [phone] Provider Notes: Diagnosis: 1:Intractable nausea and vomiting; [...] With: Address: When: Bereket JUAREZ, Kylee Roblero [facility], [address], [address] [place] [address] [phone] Within 2 to 4 weeks Comments: Call for followup appointment for outpatient gastric emptying study With: Address: When: TERESA PATEL [address] [facility] [place] [address] [phone] Business (1) Patient Education Information: Cannabinoid Hyperemesis Syndrome [facility] Inpatient Patient Summaryon 01-04-2025 Inpatient Patient Summary Inpatient Patient Summary [address] [address] Patient Discharge Instructions PERSON INFORMATION Name: LADI BYERS Date of : 1985 Current Date: 01/04/2025 13:05:51 PHYSICIANS Admitting Physician: Saundra Blanc MD Primary Care Physician: TERESA PATEL CNP PCP Phone Number: [phone] Comment: Discharge Diagnosis: 1:Intractable nausea and vomiting; 2:Leukocytosis; 3:Dehydration; 4:Marijuana use; 5:Mixed bipolar affective disorder, mild; 6:History of gastric ulcer Condition at Discharge: Improved LADI BYERS has been given the following [...] With: Address: When: Bereket JUAREZ, Kylee Roblero [facility], [address], [address] [place] [id number] [phone] Within 2 to 4 weeks Comments: Call for followup appointment for outpatient gastric emptying study With: Address: When: TERESA PATEL [address] [place] [address] [phone] Business (1) In the event that this physician does not participate in your insurance network, please consult with your insurance company to find a nearby participating provider. Comment: MaiarMODESTA AMANDA L, have received the attached patient education materials/instructions and have verbalized understanding: Patient Signature Date Clinican/Nurse Signature Date HERE ARE THE MEDICATION CHANGES THAT OCCURRED DURING YOUR HOSPITAL STAY Medications to Continue Taking That Have Changed [id number], [address], [place] [id number], [phone] START: ondansetron (Zofran ODT 4 mg Tab-Dis) 1 Tablets By Mouth every 8 hours as needed Nausea/Vomiting. Refills: 0. Last Dose: Ne xt Dose: Other Medications START: ondansetron (ondansetron 4 mg Dis Tab) 1 Tablets By Mouth every 6 hours as needed Nausea/Vomiting. Last Dose: Ne xt Dose: Medications to Continue with No Changes Other Medications brexpiprazole (Rexulti 3 mg oral tablet) 1 Tablets By Mouth every day. Last Dose: Ne xt Dose: buPROPion (buPROPion 300 mg/24 hours ER Tab) 1 Tablets By Mouth every day. Last Dose: Ne xt Dose: celecoxib (celecoxib 200 mg Cap) 1 Capsules By Mouth every day. Last Dose: Ne xt Dose: clonidine (cloNIDine 0.1 mg tab) 1 tab(s) SubLingual. Last Dose: Ne xt Dose: cyanocobalamin (Vitamin B12 1000 mcg Tab) 1 Tablets By Mouth every day. Refills: 0. Last Dose: Ne xt Dose: dicyclomine (Bentyl 10 mg Cap) 1 Capsules By Mouth 4 times a day as needed Other (see comment). For abdominal cramping. Refills: 0. Last Dose: Ne xt Dose: folic acid (folic acid 1 mg Tab) 1 Tablets By Mouth every day. Refills: 0. Last Dose: Ne xt Dose: gabapentin (gabapentin 100 mg Cap) 2 Capsules By Mouth 2 times a day. Last Dose: Ne xt Dose: lisdexamfetamine (Vyvanse 20 mg oral capsule) TAKE 1 CAPSULE BY MOUTH EVERY DAY IN THE MORNING FOR 30 DAYS. Last Dose: Ne xt Dose: melatonin (melatonin 3 mg Tab) 1 Tablets By Mouth at bedtime as needed Sleep. Refills: 0. Last Dose: Ne xt Dose: metoprolol (Metoprolol tartrate 25 mg Tab) By Mouth 2 times a day. Last Dose: Ne xt Dose: pantoprazole (Protonix 40 mg Tab-DR) 1 Tablets By Mouth every day. Refills: 0. Last Dose: Ne xt Dose: sumatriptan (Imitrex 100 mg Tab) 1 Tablets By Mouth every day as needed as needed for migraine headache. Last Dose: Ne xt Dose: tizanidine (tiZANidine 4 mg Tab) 1 Tablets By Mouth at bedtime. Last Dose: Ne xt Dose: No Longer Take the Following Medications busPIRone 10 Milligram By Mouth 2 ti (more content not included)... Normal [facility] Main OR Intraoperative Recor don 01-04-2025 Main OR Intraoperative Record Main OR Intraoperative Record IntraOp Document Type FT Summary Primary Physician: Milton Patton MD Finalized Date/Time: 01/04/25 13:41:34 Pt. Name: LADI BYERS D.O.B./Sex: 1985 Female Med Rec #: [id number] Physician: Saundra Blanc MD Financial #: [id number] Pt. Type: O Room/Bed: [facility] Admit/Disch: 01/02/25 21:13:34 - Institution: Case Times FT Entry 1 Patient Times In Room 01/03/25 15:16:00 Out Room 01/03/25 15:30:00 Procedure Times Start 01/03/25 15:24:00 Stop 01/03/25 15:28:00 Anesthesia Times Start 01/03/25 15:16:00 Stop 01/03/25 15:30:00 Last Modified By: Azeb Jaquez RN 01/03/25 15:30:29 Case Attendance FT Entry 1 Entry 2 Entry 3 Case Attendee Kristy Philip CRNA, MD, Gilmar Jones Role Performed MAMMOGRAPHY TECHNOLOGIST Surgeon - Primary Scrub - Primary Time In 01/03/25 15:16:00 01/03/25 15:16:00 01/03/25 15:16:00 Time Out 01/03/25 15:30:00 01/03/25 15:30:00 01/03/25 15:30:00 Procedure EGD(.) EGD(.) EGD(.) Comments Dr. Chavez supervising procedure. Last Modified By: Katy Anderson CST, RN, Azeb Argueta RN 01/04/25 13:41:08 01/03/25 15:30:30 01/03/25 15:30:30 Entry 4 Case Attendee Azeb Jaquez RN Role Performed Comfort Advisor - Primary Time In 01/03/25 15:16:00 Time [...] (If Applicable) PreOp Antibiotic No Time Out Kristy Philip CRNA, Given Participants Gilmar Aguilar Sarmini MD, Leonid Horton RN, Kara N Time Out Complete 01/03/25 15:19:00 Outcomes Met? [...] gastric biopsy. Primary Procedure Yes Primary Surgeon Milton Patton MD Start 01/03/25 15:24:00 Stop 01/03/25 15:28:00 Anesthesia [...] and tissue Entry 1 Skin Integrity Intact, Burt, Warm, & Skin Abnormality No Dry Outcomes [...] RN Outcomes Met? Yes Last Modified By: Leonid PHIPPS, Azeb Garcia 01/03/25 15:20:45 (more content not included)... Normal [facility] BMPon 01-03-2025 Anion gap [Moles/Vol] 13 mmol/L Normal 6-16 [facility] Comment on above: Performed By: #### 2 [id number] #### [facility] [address] [place] [address] BUN/Creat Ratio 6 No Units Low 10-20 [facility] Comment on above: Performed By: #### 2 [id number] #### [facility] [address] [place] [address] Calcium [Mass/Vol] 9.2 mg/dL Normal 8.9-11.1 [facility] Comment on above: Performed By: #### 2 [id number] #### [facility] [address] [place] [address] Chloride [Moles/Vol] 105 mmol/L Normal 101-111 [facility] Comment on above: Performed By: #### 2 [id number] #### [facility] [address] [place] [address] CO2 [Moles/Vol] 24 mmol/L Normal 21-31 [facility] Comment on above: Performed By: #### 2 [id number] #### [facility] [address] [place] [address] Creatinine [Mass/Vol] 0.9 mg/dL Normal 0.5-1.3 [facility] Comment on above: Performed By: #### 2 [id number] #### [facility] [address] [place] [address] Glucose [Mass/Vol] 118 mg/dL Normal 55-199 [facility] Comment on above: Performed By: #### 2 [id number] #### [facility] [address] [place] [address] Potassium [Moles/Vol] 4.0 mmol/L Normal 3.5-5.3 [facility] Comment on above: Performed By: #### 2 [id number] #### [facility] [address] [place] [address] Sodium [Moles/Vol] 138 mmol/L Normal 135-145 [facility] Comment on above: Performed By: #### 2 [id number] #### [facility] [address] [place] [address] Urea nitrogen [Mass/Vol] 5 mg/dL Normal 5-21 [facility] Comment on above: Performed By: #### 2 [id number] #### [facility] [address] [place] [address] CBC w/ Auto Diffon 5 Basophil Absolute 0.1 E9/L Normal 0.0-0.2 [facility] Comment on above: Performed By: #### 2 [id number] #### [facility] [address] [place] [address] Basophils/100 WBC (Bld) 0.6 % Normal 0.0-2.0 [facility] Comment on above: Performed By: #### 2 [id number] #### [facility] [address] [place] [address] Eos Absolute 0.0 E9/L Normal 0.0-0.5 [facility] Comment on above: Performed By: #### 2 [id number] #### [facility] [address] [place] [address] Eosinophils/100 WBC (Bld) 0.0 % Normal 0.0-8.0 [facility] Comment on above: Performed By: #### 2 [id number] #### [facility] [address] [place] [address] Erythrocyte distribution width (RBC) [Ratio] 15.2 % High 10.9-14.2 [facility] Comment on above: Performed By: #### 2 [id number] #### [facility] [address] [place] [address] Hematocrit (Bld) [Volume fraction] 43.8 % Normal 34.0-46.0 [facility] Comment on above: Performed By: #### 2 [id number] #### [facility] [address] [place] [address] Hemoglobin (Bld) [Mass/Vol] 15.1 g/dL Normal 12.0-16.0 [facility] Comment on above: Performed By: #### 2 397106 #### [facility] [address] [place] [address] Lymph Absolute 2.2 E9/L Normal 1.0-4.0 [facility] Comment on above: Performed By: #### 2 633154 #### [facility] [address] [place] [address] Lymphocytes/100 WBC (Bld) 21.1 % Normal 14.0-50.0 [facility] Comment on above: Performed By: #### 2 [id number] #### [facility] [address] [place] [address] MCH (RBC) [Entitic mass] 30.9 pg Normal 27.0-34.0 [facility] Comment on above: Performed By: #### 2 [id number] #### [facility] [address] [place] [address] MCHC (RBC) [Mass/Vol] 34.4 g/dL Normal 31.4-36.0 [facility] Comment on above: Performed By: #### 2 [id number] #### [facility] [address] [place] [address] MCV (RBC) [Entitic vol] 89.7 fL Normal 80.0-100.0 [facility] Comment on above: Performed By: #### 2 294717 #### [facility] [address] [place] [address] Charles Absolute 0.7 E9/L Normal 0.2-1.0 [facility] Comment on above: Performed By: #### 2 103131 #### [facility] [address] [place] [address] Monocytes/100 WBC (Bld) 6.5 % Normal 4.0-14.0 [facility] Comment on above: Performed By: #### 2 612052 #### [facility] [address] [place] [address] Neutro Absolute 7.4 E9/L Normal 2.0-7.5 [facility] Comment on above: Performed By: #### 2 520586 #### [facility] [address] [place] [address] Neutro Auto 71.8 % Normal 36.0-75.0 [facility] Comment on above: Performed By: #### 2 851153 #### [facility] [address] [place] [address] Platelet 351.0 E9/L Normal 150.0-500.0 [facility] Comment on above: Performed By: #### 2 395244 #### [facility] [address] [place] [address] Platelet mean volume (Bld) [Entitic vol] 7.7 fL Normal 6.4-10.8 [facility] Comment on above: Performed By: #### 2 689188 #### [facility] [address] [place] [address] RBC 4.9 E12/L Normal 4.3-5.9 [facility] Comment on above: Performed By: #### 2 200837 #### [facility] [address] [place] [address] WBC 10.4 E9/L Normal 4.0-11.0 [facility] Comment on above: Performed By: #### 2 146067 #### [facility] [address] [place] [address] CHEMISTRYOrdered By: SYSTEM SYSTEM on 01-03-2025 Anion gap [Moles/Vol] 13 mmol/L Normal 6 - 16 mEq/L [facility] Calcium [Mass/Vol] 9.2 mg/dL Normal 8.9 - 11. 1 mg/dL [facility] Chloride [Moles/Vol] 105 mmol/L Normal 101 - 1 11 mmol/L [facility] CO2 [Moles/Vol] 24 mmol/L Normal 21 - 31 mmol/L [facility] Creatinine [Mass/Vol] 0.9 mg/dL Normal 0.5 - 1.3 mg/dL [facility] GFR/1.73 sq M.predicted MDRD (S/P/Bld) [Vol rate/Area] 83 mL/min/1.73 m2 Normal >=59mL/min/ 1.73 m2 [facility] Glucose [Mass/Vol] 118 mg/dL Normal 55 - 199 mg/dL [facility] Potassium [Moles/Vol] 4.0 mmol/L Normal 3.5 - 5.3 mmol/L [facility] Sodium [Moles/Vol] 138 mmol/L Normal 135 - 145 mmol/L [facility] Urea nitrogen [Mass/Vol] 5 mg/dL Normal 5 - 21 mg/dL [facility] Urea nitrogen/Creatinine [Mass ratio] 6 mg/mg Low 10 - 20 [facility] ED Clinical Summaryon 2024 ED Clinical Summary ED Clinical Summary [place] [address] ED Clinical Summary Person Information Name: LADI BYERS [facility] Age: 39 Years : 1985 Sex: Female Language: [place] PCP: TERESA PATEL CNP Marital Status: Single Visit Id: Visit Reason: Vomiting; Nausea; Abdominal pain; PER PATIENT, ANOTHER STOMACH ULCER, N/V, ABD PAIN, SWEATING Speciality: Acuity: 2 Enc Type: Observation Med Service: Medical Arrival: 01/02/2025 21:13:34 Discharge: LOS: 000 05:30 Checkin: 01/02/2025 21:13:34 Checkout: 01/03/2025 02:43:05 Dispo Type: Admitted as IP to this [facility] EVENTS: Event Name Event Status Request [...] 00:38:20 Patient Care Request 01/03/2025 00:38:20 ADDRESS: [address] [place] [address] DR LAURA SANZ [place] [id number] PHYS DOC NOTES: MEDICAL INFORMATION: Prescriptions Given: [...] 2:Marijuana use; 3:History of gastric ulcer; 4:Leukocytosis Normal [facility] ED Note-Physicianon 01-04-20 ED Note-Physician ED Note-Physician Basic Information Time Seen: Brian Aguilar PA-C 01/02/2025 21:18 Chief Complaint pt presents with abdominal pain. pt states she believes she has another ulcer. pt states she has not been able to stop throwing up. seen at [place], CT done. pain and vomiting started History of Present Illness Patient is a 39-year-old female with PMH of GERD, stomach ulcers, intractable nausea and vomiting, marijuana use, bipolar affective disorder, obesity that presents today for evaluation of her epigastric abdominal pain with severe nausea and vomiting. Patient states that she was seen at [facility] for this last week and had a [...] with severe nausea and vomiting. Seen at [facility] for this last week and had a [...] review the CT scan report done at [facility] which was negative for any acute intra-abdominal pathology. For this reason patient was started with a dose of droperidol and Benadryl as well as Pepcid and Bentyl and labs are obtained. Labs demonstrate leukocytosis with WBC of 15.3 and elevated neutrophils at 10.5 consistent with previous labs at [facility] on 12/26/2024. Patient did not improve [...] 01/02/25 21:26:00 EDT droperidol, 2.5 mg = (more content not included)... Normal [facility] Comment on above: Result Comment: Elec tronically Signed By: Brian Aguilar PA-C\.br\Date and Time Signed: 01/03/25 00:44 EDT\.br\Electronically Co-Signed By: Verónica Yates DO\.br\Date and Time Co-Signed: 01/03/25 00:54 EDT ED Patient Education Noteon 01-03-2025 ED Patient Education Note ED Patient Education Note Normal [facility] ED Patient Summaryon 025 ED Patient Summary ED Patient Summary [place] [id number] Patient Discharge Instructions Person Information Name: LADI BYERS Age: 39 Years Arrival Date: 01/02/2025 21:13:34 Discharge Diagnosis: 1:Intractable nausea and vomiting; 2:Marijuana use; 3:History of gastric ulcer; 4:Leukocytosis Primary Care Physician: TERESA PATEL CNP Provider Information Primary Provider: Verónica Yates DO Advanced [employer] Fishing Vessel:Lauren TRONCOSO, Brian Ambriz. The exam and treatment you received in the Emergency Department were for an urgent problem and are not intended as complete care. It is important that you follow up with a doctor, nurse practitioner, or physician???s assistant professor nurse education for ongoing care. If your symptoms become worse or you do not improve as expected and you are unable to reach your usual health care provider, you should return to the Emergency Department. We are available 24 hours a day. MODESTA LADI Rocio has been given the following list of [...] opioids can be used to help relieve uksptoup-ft-vsmlpr pain and are often prescribed following a [...] guidance from the Food and Drug Administration (www.fda.gov/Drugs/Resource sForYou). ??? Visit www.cdc.gov/drugoverdose to learn about the risks of opioids abuse and overdose. ??? If you believe you may be struggling with addiction, tell your health residential care facility manager and ask for guidance or call [facility]???S National Helpline at 2-598-941-XD (more content not included)... Normal [facility] HEMATOLOGYOrdered By: SYSTEM SYSTEM on 01-03-2025 Basophils/100 WBC (Bld) 0.6 % Normal 0.0 - 2.0 % [facility] Basophils/Leukocytes Auto (Bld) [Pure # fraction] 0.1 E9/L Normal 0.0 - 0.2 E9/L [facility] Eosinophils (Bld) [#/Vol] 0.0 E9/L Normal 0.0 - 0.5 E9/L [facility] Eosinophils/100 WBC (Bld) 0.0 % Normal 0.0 - 8.0 % [facility] Erythrocyte distribution width (RBC) [Ratio] 15.2 % High 10.9 - 14.2 % [facility] Hematocrit (Bld) [Volume fraction] 43.8 % Normal 34.0 - 46.0 % [facility] Hemoglobin (Bld) [Mass/Vol] 15.1 g/dL Normal 12.0 - 16.0 gm/dL [facility] Lymphocytes (Bld) [#/Vol] 2.2 E9/L Normal 1.0 - 4.0 E9/L [facility] Lymphocytes/100 WBC (Bld) 21.1 % Normal 14.0 - 50.0 % [facility] MCH (RBC) [Entitic mass] 30.9 pg Normal 27.0 - 34.0 pg [facility] MCHC (RBC) [Mass/Vol] 34.4 g/dL Normal 31.4 - 36.0 gm/dL [facility] MCV (RBC) [Entitic vol] 89.7 fL Normal 80.0 - 100.0 fL [facility] Monocytes (Bld) [#/Vol] 0.7 E9/L Normal 0.2 - 1.0 E9/L [facility] Monocytes/100 WBC (Bld) 6.5 % Normal 4.0 - 14.0 % [facility] Neutrophils (Bld) [#/Vol] 7.4 E9/L Normal 2.0 - 7.5 E9/L [facility] Neutrophils/100 WBC (Bld) 71.8 % Normal 36.0 - 75.0 % [facility] Platelet mean volume (Bld) [Entitic vol] 7.7 fL Normal 6.4 - 10.8 fL [facility] Platelets (Bld) [#/Vol] 351.0 E9/L Normal 150.0 - 500.0 E9/L [facility] RBC (Bld) [#/Vol] 4.9 E12/L Normal 4.3 - 5.9 E12/L [facility] WBC corrected for nucl RBC Auto (Bld) [#/Vol] 10.4 E9/L Normal 4.0 - 11.0 E9/L [facility] Interdisciplinary Note - Benson e Manageron 01-03-2025 Interdisciplinary Note - Property Administrator Interdisciplinary Note - Property Administrator CM met with patient at bedside. Patient [...] after scope pending GI. CM to follow. Normal [facility] Comment on above: Result Comment: Elec tronically Signed By: Godfrey Parker I\.br\Date and Time Signed: 01/03/25 11:42 EDT Main OR PACU I Recordon Main OR PACU I Record Main OR PACU I Rec ord PACU Phase I Document Type FT Summary Primary Physician: Milton Patton MD Finalized Date/Time: 01/03/25 17:10:20 Pt. Name: DIMITRIJANET LADIPERRI Pineda.O.B./Sex: 1985 Female Med Rec #: [id number] Physician: Saundra Blanc MD Financial #: [id number] Pt. Type: O Room/Bed: [place] [address] Admit/Disch: 01/02/25 21:13:34 - Institution: Case Times [...] Signed By: Margareth Ramírez RN 01/03/25 17:10 Normal [facility] Main OR Preoperative Recordo n 01-03-2025 Main OR Preoperative Record Main OR Preoperative Record Holding Area Document Type FT Summary Primary Physician: Milton Patton MD Finalized Date/Time: 01/03/25 14:26:44 Pt. Name: LADI BYERS D.O.B./Sex: 1985 Female Med Rec #: [id number] Physician: Saundra Blanc MD Financial #: [id number] Pt. Type: O Room/Bed: [place] [address] Admit/Disch: 01/02/25 21:13:34 - Institution: Case Times [...] Signed By: Kenyetta Capone RN 01/03/25 14:26 Normal [facility] SEROLOGYOrdered By: Jules graf on 01-03-2025 HCG.beta subunit (U) [Moles/Vol] Negative Normal [facility] Man Sero U BetaHcg Qualon 01-03-2025 U beta hCG Ql Negative Normal [facility] Comment on above: Performed By: #### 2 [id number] #### [facility] [address] [place] [address] UA with Cult Rflxon 01-04-20 25 Color (U) Yellow Normal Yellow [facility] Comment on above: Result Comment: Micr oscopic readings are only performed on those samples that meet specific criteria set forth by [facility]. Performed By: #### 4 [id number] #### [facility] [address] [place] [address] Glucose (U) [Mass/Vol] Negative Normal Negative [facility] Comment on above: Performed By: #### 4 [id number] #### [facility] [address] [place] [address] Ketones Ql (U) Trace Abnormal Negative [facility] Comment on above: Performed By: #### 4 [id number] #### [facility] [address] [place] [address] UA Blood Negative Normal Negative [facility] Comment on above: Performed By: #### 4 [id number] #### [facility] [address] [place] [address] UA Bacteria Trace Normal Trace [facility] Comment on above: Performed By: #### 4 [id number] #### [facility] [address] [place] [address] UA Clarity Clear Normal Clear [facility] Comment on above: Performed By: #### 4 [id number] #### [facility] [address] [place] [address] UA Hyal Cast 0-3 Normal 0-3 [facility] Comment on above: Performed By: #### 4 [id number] #### [facility] [address] [place] [address] UA Leuk Est Negative Normal Negative [facility] Comment on above: Performed By: #### 4 [id number] #### [facility] [address] [place] [address] UA Mucous 4+ [id number] Abnormal Negative [facility] Comment on above: Performed By: #### 4 [id number] #### [facility] [address] [place] [address] UA Nitrite Negative Normal Negative [facility] Comment on above: Performed By: #### 4 [id number] #### [facility] [address] [place] [address] UA pH 6.0 Invalid Interpretation Code 5.0-9.0 [facility] Comment on above: Performed By: #### 4 [id number] #### [facility] [address] [place] [address] UA Protein 1+ mg/dL Abnormal Negative [facility] Comment on above: Performed By: #### 4 [id number] #### [facility] [address] [place] [address] UA RBC 4-20 Abnormal 0-3 [facility] Comment on above: Performed By: #### 4 [id number] #### [facility] [address] [place] [address] UA Spec Grav 1.035 Invalid Interpretation Code 1.005-1.030 [facility] Comment on above: Performed By: #### 4 [id number] #### [facility] [address] [place] [address] UA Squam Epithelial 3-4 Invalid Interpretation Code [facility] Comment on above: Performed By: #### 4 [id number] #### [facility] [address] [place] [address] UA Urobilinogen Negative Normal Negative [facility] Comment on above: Performed By: #### 4 [id number] #### [facility] [address] [place] [address] UA WBC 0-5 Normal 0-5 [facility] Comment on above: Performed By: #### 4 [id number] #### [facility] [address] [place] [address] Urobilinogen (U) [Mass/Vol] Negative Normal Negative [facility] Comment on above: Performed By: #### 4 [id number] #### [facility] [address] [place] [address] URINALYSISOrdered By: SYSTEM SYSTEM on 01-03-2025 Bacteria Auto Ql (U) Trace /HPF Normal Trace/HPF [facility] UA Auto SS Bilirubin Ql (U) Negative Normal Negativemg/ dL [facility] UA Auto SS Clarity (U) Clear (01/03/25 6:30 AM) Normal Clear [facility] UA Auto SS Color (U) Yellow 1 (01/03/25 6:30 AM) Normal Yellow [facility] UA Auto SS Comment on above: Interpretive Data: M icroscopic readings are only performed on those samples that meet specific criteria set forth by [facility]. Epithelial cells.squamous Auto (Urine sed) [#/Area] 3-4 graded/HPF Invalid Interpretation Code [facility] UA Auto SS Glucose Ql (U) Negative Normal Negativemg/ dL [facility] UA Auto SS Hemoglobin Auto test strip (U) [Mass/Vol] Negative Normal Negativemg/ dL [facility] UA Auto SS Hyaline casts LM Ql (Urine sed) 0-3 graded/LPF Normal 0-3graded/L PF [facility] UA Auto SS Ketones Auto test strip Ql (U) Trace mg/dL Invalid Interpretation Code Negativemg/ dL [facility] UA Auto SS Leukocyte esterase Auto test strip Ql (U) Negative Normal NegativeLeu /uL [facility] UA Auto SS Mucus Auto Ql (U) 4+ graded/LPF Invalid Interpretation Code Negativegra ded/LPF [facility] UA Auto SS Nitrite Auto test strip Ql (U) Negative Normal Negativemg/ dL [facility] UA Auto SS pH (U) 6.0 *NA* (01/03/25 6:30 AM) Invalid Interpretation Code 5.0 - 9.0 [facility] UA Auto SS Protein Ql (U) 1+ mg/dL Invalid Interpretation Code Negativemg/ dL [facility] UA Auto SS RBC Ql (U) 4-20 graded/HPF Invalid Interpretation Code 0-3graded/H PF [facility] UA Auto SS Specific gravity (U) [Rel density] 1.035 *NA* (01/03/25 6:30 AM) Invalid Interpretation Code 1.005 - 1.030 [facility] UA Auto SS Urobilinogen (U) [Mass/Vol] Negative Normal Negativemg/ dL [facility] UA Auto SS WBC Auto (Urine sed) [#/Area] 0-5 graded/HPF Normal 0-5graded/H PF [facility] UA Auto SS URINALYSISOrdered By: Brian Aguilar on 01-03-2025 UA Spec Desc Clean Catch (01/03/25 6:30 AM) Normal [facility] UA Auto SS eGFRon 01-03-2025 eGFR 83 mL/min/1.73 m2 Normal >=59 [facility] Comment on above: Performed By: #### 1 [id number] ####[facility] [address] [place] [address] BMPon 01-02-2025 Anion gap [Moles/Vol] 19 mmol/L High 6-16 [facility] Comment on above: Performed By: #### 2 872391 #### [facility] [address] [place] [address] BUN/Creat Ratio 6 No Units Low 10-20 [facility] Comment on above: Performed By: #### 2 [id number] #### [facility] [address] [place] [address] Calcium [Mass/Vol] 10.4 mg/dL Normal 8.9-11.1 [facility] Comment on above: Performed By: #### 2 110903 #### [facility] [address] [place] [address] Chloride [Moles/Vol] 100 mmol/L Low 101-111 [facility] Comment on above: Performed By: #### 2 968517 #### [facility] [address] [place] [address] CO2 [Moles/Vol] 24 mmol/L Normal 21-31 [facility] Comment on above: Performed By: #### 2 715362 #### [facility] [address] [place] [address] Creatinine [Mass/Vol] 1.1 mg/dL Normal 0.5-1.3 [facility] Comment on above: Performed By: #### 2 612308 #### [facility] [address] [place] [address] Glucose [Mass/Vol] 129 mg/dL Normal 55-199 [facility] Comment on above: Performed By: #### 2 930911 #### [facility] [address] [place] [address] Potassium [Moles/Vol] 3.4 mmol/L Low 3.5-5.3 [facility] Comment on above: Performed By: #### 2 869578 #### [facility] [address] [place] [address] Sodium [Moles/Vol] 140 mmol/L Normal 135-145 [facility] Comment on above: Performed By: #### 2 636038 #### [facility] [address] [place] [address] Urea nitrogen [Mass/Vol] 6 mg/dL Normal 5-21 [facility] Comment on above: Performed By: #### 2 903751 #### [facility] [address] [place] [address] CBC w/ Auto Diffon 5 Basophil Absolute 0.1 E9/L Normal 0.0-0.2 [facility] Comment on above: Performed By: #### 2 118996 #### [facility] [address] [place] [address] Basophils/100 WBC (Bld) 0.9 % Normal 0.0-2.0 [facility] Comment on above: Performed By: #### 2 910706 #### [facility] [address] [place] [address] Eos Absolute 0.0 E9/L Normal 0.0-0.5 [facility] Comment on above: Performed By: #### 2 285999 #### [facility] [address] [place] [address] Eosinophils/100 WBC (Bld) 0.1 % Normal 0.0-8.0 [facility] Comment on above: Performed By: #### 2 840961 #### [facility] [address] [place] [address] Erythrocyte distribution width (RBC) [Ratio] 15.3 % High 10.9-14.2 [facility] Comment on above: Performed By: #### 2 885057 #### [facility] [address] [place] [address] Hematocrit (Bld) [Volume fraction] 50.4 % High 34.0-46.0 [facility] Comment on above: Performed By: #### 2 753740 #### [facility] [address] [place] [address] Hemoglobin (Bld) [Mass/Vol] 17.3 g/dL High 12.0-16.0 [facility] Comment on above: Performed By: #### 2 402939 #### [facility] [address] [place] [address] Lymph Absolute 3.7 E9/L Normal 1.0-4.0 [facility] Comment on above: Performed By: #### 2 942380 #### [facility] [address] [place] [address] Lymphocytes/100 WBC (Bld) 24.2 % Normal 14.0-50.0 [facility] Comment on above: Performed By: #### 2 491456 #### [facility] [address] [place] [address] MCH (RBC) [Entitic mass] 30.4 pg Normal 27.0-34.0 [facility] Comment on above: Performed By: #### 2 289788 #### [facility] [address] [place] [address] MCHC (RBC) [Mass/Vol] 34.3 g/dL Normal 31.4-36.0 [facility] Comment on above: Performed By: #### 2 308286 #### [facility] [address] [place] [address] MCV (RBC) [Entitic vol] 88.6 fL Normal 80.0-100.0 [facility] Comment on above: Performed By: #### 2 653883 #### [facility] [address] [place] [address] Charles Absolute 0.9 E9/L Normal 0.2-1.0 [facility] Comment on above: Performed By: #### 2 197723 #### [facility] [address] [place] [address] Monocytes/100 WBC (Bld) 5.8 % Normal 4.0-14.0 [facility] Comment on above: Performed By: #### 2 160774 #### [facility] [address] [place] [address] Neutro Absolute 10.5 E9/L High 2.0-7.5 [facility] Comment on above: Performed By: #### 2 536616 #### [facility] [address] [place] [address] Neutro Auto 69.0 % Normal 36.0-75.0 [facility] Comment on above: Performed By: #### 2 316613 #### [facility] [address] [place] [address] Platelet 404.0 E9/L Normal 150.0-500.0 [facility] Comment on above: Performed By: #### 2 036988 #### [facility] [address] [place] [address] Platelet mean volume (Bld) [Entitic vol] 8.0 fL Normal 6.4-10.8 [facility] Comment on above: Performed By: #### 2 957331 #### [facility] [address] [place] [address] RBC 5.7 E12/L Normal 4.3-5.9 [facility] Comment on above: Performed By: #### 2 392285 #### [facility] [address] [place] [address] WBC 15.3 E9/L High 4.0-11.0 [facility] Comment on above: Result Comment: Blossom pheral smear review performed. Performed By: #### 2 153101 #### [facility] [address] [place] [address] CHEMISTRYOrdered By: SYSTEM SYSTEM on 01-02-2025 Albumin [Mass/Vol] 5.5 g/dL High 3.3 - 5.0 gm/dL [facility] Albumin/Globulin [Mass ratio] 1.8 {ratio} Normal 1.1 - 2.2 [facility] ALP [Catalytic activity/Vol] 80 [iU]/d Normal 21 - 98 Int._Unit/L [facility] ALT No additional P-5'-P [Catalytic activity/Vol] 41 [iU]/d Normal 6 - 46 Int._Unit/L [facility] Anion gap [Moles/Vol] 19 mmol/L High 6 - 16 mEq/L [facility] AST [Catalytic activity/Vol] 33 [iU]/d Normal 5 - 43 Int._Unit/L [facility] Bilirubin [Mass/Vol] 0.6 mg/dL Normal 0.0 - 1 .1 mg/dL [facility] Bilirubin.direct [Mass/Vol] 0.0 mg/dL Normal 0.0 - 0.4 mg/dL [facility] Bilirubin.indirect [Mass or moles/Vol] 0.6 mg/dL Normal 0.1 - 0.9 mg/dL [facility] Calcium [Mass/Vol] 10.4 mg/dL Normal 8.9 - 11. 1 mg/dL [facility] Chloride [Moles/Vol] 100 mmol/L Low 101 - 1 11 mmol/L [facility] CO2 [Moles/Vol] 24 mmol/L Normal 21 - 31 mmol/L [facility] Creatinine [Mass/Vol] 1.1 mg/dL Normal 0.5 - 1.3 mg/dL [facility] GFR/1.73 sq M.predicted MDRD (S/P/Bld) [Vol rate/Area] 65 mL/min/1.73 m2 Normal >=59mL/min/ 1.73 m2 [facility] Globulin (S) [Mass/Vol] 3.0 g/dL Normal 1.4 - 4.0 gm/dL [facility] Glucose [Mass/Vol] 129 mg/dL Normal 55 - 199 mg/dL [facility] Lipase [Catalytic activity/Vol] 20 U/L Normal 13 - 58 unit/L [facility] Potassium [Moles/Vol] 3.4 mmol/L Low 3.5 - 5.3 mmol/L [facility] Protein [Mass/Vol] 8.5 g/dL High 6.0 - 7.8 gm/dL [facility] Sodium [Moles/Vol] 140 mmol/L Normal 135 - 145 mmol/L [facility] Urea nitrogen [Mass/Vol] 6 mg/dL Normal 5 - 21 mg/dL [facility] Urea nitrogen/Creatinine [Mass ratio] 6 mg/mg Low 10 - 20 [facility] Extra Blueon 01-02-2025 Tube Collected Plasma Yes Invalid Interpretation Code [facility] Comment on above: Performed By: #### 1 [id number] #### [facility] [address] [place] [address] HEMATOLOGYOrdered By: SYSTEM SYSTEM on 01-02-2025 Basophils/100 WBC (Bld) 0.9 % Normal 0.0 - 2.0 % [facility] Basophils/Leukocytes Auto (Bld) [Pure # fraction] 0.1 E9/L Normal 0.0 - 0.2 E9/L [facility] Eosinophils (Bld) [#/Vol] 0.0 E9/L Normal 0.0 - 0.5 E9/L [facility] Eosinophils/100 WBC (Bld) 0.1 % Normal 0.0 - 8.0 % [facility] Erythrocyte distribution width (RBC) [Ratio] 15.3 % High 10.9 - 14.2 % [facility] Hematocrit (Bld) [Volume fraction] 50.4 % High 34.0 - 46.0 % [facility] Hemoglobin (Bld) [Mass/Vol] 17.3 g/dL High 12.0 - 16.0 gm/dL [facility] Lymphocytes (Bld) [#/Vol] 3.7 E9/L Normal 1.0 - 4.0 E9/L [facility] Lymphocytes/100 WBC (Bld) 24.2 % Normal 14.0 - 50.0 % [facility] MCH (RBC) [Entitic mass] 30.4 pg Normal 27.0 - 34.0 pg [facility] MCHC (RBC) [Mass/Vol] 34.3 g/dL Normal 31.4 - 36.0 gm/dL [facility] MCV (RBC) [Entitic vol] 88.6 fL Normal 80.0 - 100.0 fL [facility] Monocytes (Bld) [#/Vol] 0.9 E9/L Normal 0.2 - 1.0 E9/L [facility] Monocytes/100 WBC (Bld) 5.8 % Normal 4.0 - 14.0 % [facility] Neutrophils (Bld) [#/Vol] 10.5 E9/L High 2.0 - 7.5 E9/L [facility] Neutrophils/100 WBC (Bld) 69.0 % Normal 36.0 - 75.0 % [facility] Platelet mean volume (Bld) [Entitic vol] 8.0 fL Normal 6.4 - 10.8 fL [facility] Platelets (Bld) [#/Vol] 404.0 E9/L Normal 150.0 - 500.0 E9/L [facility] RBC (Bld) [#/Vol] 5.7 E12/L Normal 4.3 - 5.9 E12/L [facility] WBC corrected for nucl RBC Auto (Bld) [#/Vol] 15.3 E9/L High 4.0 - 11.0 E9/L [facility] Comment on above: Result Comment: Blossom pheral smear review performed. Hep Func Panelon 01-02-2025 Albumin [Mass/Vol] 5.5 g/dL High 3.3-5.0 [facility] Comment on above: Performed By: #### 2 748673 #### [facility] [address] [place] [address] Albumin/Globulin [Mass ratio] 1.8 {ratio} Normal 1.1-2.2 [facility] Comment on above: Performed By: #### 2 688754 #### [facility] [address] [place] [address] Alk Phos 80 Int._Unit/L Normal 21-98 [facility] Comment on above: Performed By: #### 2 090986 #### [facility] [address] [place] [address] ALT 41 Int._Unit/L Normal 6-46 [facility] Comment on above: Performed By: #### 2 288605 #### [facility] [address] [place] [address] AST 33 Int._Unit/L Normal 5-43 [facility] Comment on above: Performed By: #### 2 124662 #### [facility] [address] [place] [address] Bili Direct 0.0 mg/dL Normal 0.0-0.4 [facility] Comment on above: Performed By: #### 2 797825 #### [facility] [address] [place] [address] Bili Indirect 0.6 mg/dL Normal 0.1-0.9 [facility] Comment on above: Performed By: #### 2 690769 #### [facility] [address] [place] [address] Bili Total 0.6 mg/dL Normal 0.0-1.1 [facility] Comment on above: Performed By: #### 2 827210 #### [facility] [address] [place] [address] Globulin (S) [Mass/Vol] 3.0 g/dL Normal 1.4-4.0 [facility] Comment on above: Performed By: #### 2 904505 #### [facility] [address] [place] [address] Protein [Mass/Vol] 8.5 g/dL High 6.0-7.8 [facility] Comment on above: Performed By: #### 2 122614 #### [facility] [address] [place] [address] Lipase Levelon 01-02-2025 Lipase Lvl 20 unit/L Normal 13-58 [facility] Comment on above: Performed By: #### 2 130300 #### [facility] [address] [place] [address] UA with Cult Rflxon 01-03-20 25 UA Spec Desc Clean Catch Normal [facility] Comment on above: Performed By: #### 4 [id number] #### [facility] [address] [place] [address] eGFRon 01-02-2025 eGFR 65 mL/min/1.73 m2 Normal >=59 [facility] Comment on above: Performed By: #### 1 [id number] #### [facility] [address] [facility] [place] [address] HE SCREENING W TOMOon 12-17 HE SCREENING W JUSTO * * *Final Report* * * DATE OF EXAM: Dec 17 2024 12:57PM W 0582 - HE SCREENING W JUSTO / PROCEDURE REASON: Screening mammogram, encounter for * * * * Physician Interpretation * * * * RESULT: [facility] [address] [place] [address] #[id number] - HE SCREENING W JUSTO HISTORY: 39 year-old patient [...] has dense breast tissue. Interpreting Radiologist: Nisha Freeman M.D. Electronically signed on: 12/18/2024 Production Expert: KODAK Transcribe Date/Time: Dec 17 2024 12:46P Dictated by : NISHA FREEMAN MD This examination was interpreted and the report reviewed and electronically signed by: NISHA FREEMAN MD on Dec 18 2024 8:20AM EST [id number] Normal [facility] CNOVon 12-12-2024 CNOV Office Visit (CARDLO ) LADI BYERS ([id number]) 1985 F Date Time Provider Department 12/12/24 8:00 AM FRANCHESCA LOW During your visit today, we recorded the following information about you: Pulse Blood pressure Weight 75/minute 95/65 86.1 kg Franchesca Low MD 12/12/2024 8:35 AM Signed [facility] [place] SECTION OF REGIONAL CARDIOLOGY OUTPATIENT VISIT DATE December 12, 2024 OUTPATIENT VISIT TYPE Established PRIMARY CARE PHYSICIAN: Reuben Agrawal [address] [place] [address] REFERRING PHYSICIAN: Maurice Edward [facility] [address] [address] C/C Follow-up today with symptoms of shortness of breath Last visit with me in 2022, subsequent F/u with [employer] in Jul 2023 HISTORY OF PRESENT ILLNESS: Ms. Byers is a 39 year old female, seen in clinic today for follow-up. Prior hx of palpitations treated with propanolol. Hx of palpitations with possible sinus tachycardia-seen an treated at [facility]. Was started on metoprolol in the [...] and PPI, anxiety-[facility] [place]. Since prior visit, The patient is a [...] personally reviewed ECG: Sinus rhythm, 49 bpm, ME 144, right bundle branch block. PAST MEDICAL [...] date: 07/12/2003 Quit date: 07/12/2023 Years since mohsen (more content not included)... Normal [facility] ECG COMPLETEon 12-12-2024 ECG COMPLETE Ventricular Rate : 4 9 BPM Atrial Rate : 49 BPM P-R Interval : 144 ms QRS Duration : 142 ms Q-T Interval : 476 ms QTC Calculation(Bazett) : 429 ms Calculated P [place] : 16 degrees Calculated R [place] : 270 degrees Calculated T [place] : 76 degrees SINUS BRADYCARDIA WITH SINUS ARRHYTHMIA COMPLETE RIGHT BUNDLE BRANCH BLOCK ABNORMAL ECG Confirmed by DRE ACKERMAN DO ([id number]) on 12/19/2024 11:17:56 AM NAME : LADI BYERS PID : [id number] : 1985 Gender : Female Race : ORD : [id number] Procedure Date : Dec 12 2024 07:58:47 [...] : DRE ACKERMAN DO Referred By : Sanjay Acquired by : Gissel edge [facility] Kyle 11-21-2024 BILLY Telephone ([facility]) MODESTALADI ([id number]) 1985 F Date Time Provider Department 11/21/24 MARTITAMARIA TERESA HAMPTONALONSO WANG During your visit today, we recorded the following information about you: Godfrey Martin MA 11/21/2024 10:14 AM Signed Received from [facility]. Placed in PCP inbox. [...] Encounter Status:Closed by GODFREY MARTIN on 11/21/24 [facility] CNPErika 10-13-2024 CNPN Telephone ([facility]) LADI BYERS ([id number]) 1985 F Date Time Provider Department 10/13/24 REUBEN AGRAWAL [facility] During your visit today, we recorded the following information about you: Godfrey Martin MA 10/13/2024 10:57 AM Signed Received from [facility]. Placed in pcp inbox for signature. Godfrey Martin MA October 13, 2024 10:57 AM Reuben Agrawal PA-C 10/16/2024 9:55 AM Signed Form completed and placed in outgoing ACTION box for clinical to process. ABA Matthews Alexandra, MA 10/16/2024 10:09 AM Signed Faxed [...] Encounter Status:Closed by GODFREY MARTIN on 10/13/24 [facility] CNOVon 10-05-2024 CNOV Office Visit ([facility] ) LADI BYERS ([id number]) 1985 F Date Time Provider Department 10/05/24 10:40 AM REUEBN AGRAWAL [facility] During your visit today, we recorded the following information about you: Temperature Pulse Blood pressure Weight 97.8 degrees 73/minute 121/85 86.6 kg Height 1.549 m Reuben Agrawal, ABA 10/05/2024 12:21 PM Signed Subjective Patient ID: Ladi is a 39 year old female who [...] colonoscopy in the past - done at [facility]. She takes Bentyl prn with benefit. PUD: She reports a history of a gastric ulcer. She has had an EGD in the past - done at [facility]. She takes pantoprazole daily. She also takes naproxen daily. Fibromyalgia: Previously dx with Fibromyalgia. She has seen PT/OT - great benefit in the past. Is on Gabapentin 100mg 2 po BID and Celebrex QD. She inquires about restarting Tizanidine for qhs to help with her upper back muscular pain/tightness. Nephrolithiasis: She has a hx of nephrolithiasis. No recent renal colic or hematuria [employer]: She's followed by [employer] annually. She has a history of abnormal [...] [facility] near [facility] home Pap: Followed by [employer] EGD/Colonoscopy: 08/2022 okay Declines COVID and flu vaccination Hep C screening ordered Fibromyalgia with upper back pain Already on Gabapentin and Celebrex regularly Pt inquires about tizanidine as she previously found it beneficial I will send letter to psych [facility] to clarify (more content not included)... Normal [facility] Kyle 10-05-2024 [facility] LADI BYERS ([id number]) 1985 F Date Time Provider Department 10/05/24 REUBEN AGRAWAL [facility] During your visit today, we recorded the following information about you: Reuben Agrawal PA-C 10/05/2024 12:22 PM Signed Letter placed in action outbox. Please fax to psychiatrist (will need to call to get fax number) Psychiatrist Bre Tineo [phone] [place] [id number] ABA Matthews Alexandra, MA 10/06/2024 8:07 AM Signed Called for fax number. Faxed letter to [phone] Godfrey Martin MA October 06, 2024 8:07 [...] Encounter Status:Closed by GODFREY MARTIN on 10/06/24 Normal [facility] HEMOGLOBIN A1C (POC)on 10-05 HbA1c (Bld) [Mass fraction] 5.4 % 4.3 - 5.6 % [facility] Comment on above: Location:[facility], [address], [place], [place], [address] Point of care (POC) Hemoglobin A1c (HGBA1C) testing is intended to assess glucose control and provide a management tool for patients known to have diabetes and their healthcare providers. Target HGBA1C levels may depend on specific clinical circumstances. POC HGBA1C is not intended for use as a diagnostic or screening test; laboratory-based testing should be used for diagnostic purposes. The following information is supplemental and may not be applicable to specific diabetes management situations: The POC device field checker provides a normal range of 4.2% to 6.5% for the HGBA1C POC test. However, the [place] [employer] guidelines indicate that patients with HGBA1C in the range of 5.7% to 6.4% are at increased risk for development of diabetes and that intervention by lifestyle modification may be beneficial. A HGBA1C level greater than or equal to 6.5% is considered diagnostic of diabetes, pending confirmatory testing. Use of HGBA1C testing to evaluate glucose control may not be appropriate for patients with hemoglobin variants or other conditions (e.g. anemia) that alter red blood cell lifespan. [facility] 25(OH)D3 [facility] 2024 25-hydroxyvitamin D3 [Mass/Vol] 21.5 ng/mL Low 31.0-80.0 [facility] Comment on above: Order Comment: Speci men Type: BLOOD SPECIMENOrdering Facility: [facility] Address: [address] [place] [address] Performed By: #### 1 989-3 ####[facility] LABCLIA [id number] [place] [id number] [place] CBC W Auto Differential pane l (Bld)on 10-02-2024 Basophils (Bld) [#/Vol] 10*3/uL Normal <0.11 [facility] Comment on above: Order Comment: Speci men Type: BLOOD SPECIMENOrdering Facility: [facility] Address: [address] [place] [address] Performed By: #### 5 7021-8 ####[facility] LABCLIA [id number] [place] [address] Basophils/100 WBC (Bld) 0.3 % Normal [facility] Comment on above: Order Comment: Speci men Type: BLOOD SPECIMENOrdering Facility: [facility] Address: [address] [place] [address] Performed By: #### 5 7021-8 ####[facility] LABCLIA [id number] [place] [address] Differential cell count method Nom (Bld) Auto Normal [facility] Comment on above: Order Comment: Speci men Type: BLOOD SPECIMENOrdering Facility: [facility] Address: [address] [place] [address] Performed By: #### 5 7021-8 ####[facility] LABCLIA [id number] [place] [address] Eosinophils (Bld) [#/Vol] 10*3/uL Normal <0.46 [facility] Comment on above: Order Comment: Speci men Type: BLOOD SPECIMENOrdering Facility: [facility] Address: [address] [place] [address] Performed By: #### 5 7021-8 ####[facility] LABCLIA [id number] [place] [address] Eosinophils/100 WBC (Bld) 0.0 % Normal [facility] Comment on above: Order Comment: Speci men Type: BLOOD SPECIMENOrdering Facility: [facility] Address: [address] [place] [address] Performed By: #### 5 7021-8 ####[facility] LABCLIA [id number] [place] [address] Erythrocyte distribution width (RBC) [Ratio] 13.0 % Normal 11.5-15.0 [facility] Comment on above: Order Comment: Speci men Type: BLOOD SPECIMENOrdering Facility: [facility] Address: [address] [place] [address] Performed By: #### 5 7021-8 ####[facility] LABCLIA [id number] [place] [address] Hematocrit (Bld) [Volume fraction] 40.0 % Normal 36.0-46.0 [facility] Comment on above: Order Comment: Speci men Type: BLOOD SPECIMENOrdering Facility: [facility] Address: [address] [place] [address] Performed By: #### 5 7021-8 ####[facility] LABCLIA [id number] [place] [address] Hemoglobin (Bld) [Mass/Vol] 13.9 g/dL Normal 11.5-15.5 [facility] Comment on above: Order Comment: Speci men Type: BLOOD SPECIMENOrdering Facility: [facility] Address: [address] [place] [address] Performed By: #### 5 7021-8 ####[facility] LABIA [id number] [place] [address] Immature granulocytes (Bld) [#/Vol] 0.05 10*3/uL Normal <0.10 [facility] Comment on above: Order Comment: Speci men Type: BLOOD SPECIMENOrdering Facility: [facility] Address: [address] [place] [address] Performed By: #### 5 7021-8 ####[facility] LABCLIA [id number] [place] [address] Immature granulocytes/100 WBC (Bld) 0.6 % Normal [facility] Comment on above: Order Comment: Speci men Type: BLOOD SPECIMENOrdering Facility: [facility] Address: [address] [place] [address] Performed By: #### 5 7021-8 ####[facility] LABIA [id number] [place] [address] Lymphocytes (Bld) [#/Vol] 2.83 10*3/uL Normal 1.00-4.00 [facility] Comment on above: Order Comment: Speci men Type: BLOOD SPECIMENOrdering Facility: [facility] Address: [address] [place] [address] Performed By: #### 5 7021-8 ####[facility] LABCLIA [id number] [place] [address] Lymphocytes/100 WBC (Bld) 35.4 % Normal [facility] Comment on above: Order Comment: Speci men Type: BLOOD SPECIMENOrdering Facility: [facility] Address: [address] [place] [address] Performed By: #### 5 7021-8 ####[facility] LABCLIA [id number] [place] [address] MCH (RBC) [Entitic mass] 30.2 pg Normal 26.0-34.0 [facility] Comment on above: Order Comment: Speci men Type: BLOOD SPECIMENOrdering Facility: [facility] Address: [address] [place] [address] Performed By: #### 5 7021-8 ####[facility] LABCLIA [id number] [place] [address] MCHC (RBC) [Mass/Vol] 34.8 g/dL Normal 30.5-36.0 [facility] Comment on above: Order Comment: Speci men Type: BLOOD SPECIMENOrdering Facility: [facility] Address: [address] [place] [address] Performed By: #### 5 7021-8 ####[facility] LABCLIA [id number] [place] [address] MCV (RBC) [Entitic vol] 87.0 fL Normal 80.0-100.0 [facility] Comment on above: Order Comment: Speci men Type: BLOOD SPECIMENOrdering Facility: [facility] Address: [address] [place] [address] Performed By: #### 5 7021-8 ####[facility] LABCLIA [id number] [place] [address] Monocytes (Bld) [#/Vol] 0.43 10*3/uL Normal <0.87 [facility] Comment on above: Order Comment: Speci men Type: BLOOD SPECIMENOrdering Facility: [facility] Address: [address] [place] [address] Performed By: #### 5 7021-8 ####[facility] LABCLIA [id number] [place] [address] Monocytes/100 WBC (Bld) 5.4 % Normal [facility] Comment on above: Order Comment: Speci men Type: BLOOD SPECIMENOrdering Facility: [facility] Address: [address] [place] [address] Performed By: #### 5 7021-8 ####[facility] LABCLIA [id number] [place] [address] Neutrophils (Bld) [#/Vol] 4.67 10*3/uL Normal 1.45-7.50 [facility] Comment on above: Order Comment: Speci men Type: BLOOD SPECIMENOrdering Facility: [facility] Address: [address] [place] [address] Performed By: #### 5 7021-8 ####[facility] LABCLIA [id number] [place] [address] Neutrophils/100 WBC (Bld) 58.3 % Normal [facility] Comment on above: Order Comment: Speci men Type: BLOOD SPECIMENOrdering Facility: [facility] Address: [address] [place] [address] Performed By: #### 5 7021-8 ####[facility] LABCLIA [id number] [place] [address] Nucleated RBC (Bld) [#/Vol] 10*3/uL Normal <0.01 [facility] Comment on above: Order Comment: Speci men Type: BLOOD SPECIMENOrdering Facility: [facility] Address: [address] [place] [address] Performed By: #### 5 7021-8 ####[facility] LABCLIA [id number] [place] [address] Nucleated RBC/100 WBC (Bld) [Ratio] 0.0 /100 WBC Normal [facility] Comment on above: Order Comment: Speci men Type: BLOOD SPECIMENOrdering Facility: [facility] Address: [address] [place] [address] Performed By: #### 5 7021-8 ####[facility] LABCLIA [id number] [place] [address] Platelet mean volume (Bld) [Entitic vol] 9.2 fL Normal 9.0-12.7 [facility] Comment on above: Order Comment: Speci men Type: BLOOD SPECIMENOrdering Facility: [facility] Address: [address] [place] [address] Performed By: #### 5 7021-8 ####[facility] LABCLIA [id number] [place] [address] Platelets (Bld) [#/Vol] 325 10*3/uL Normal 150-400 [facility] Comment on above: Order Comment: Speci men Type: BLOOD SPECIMENOrdering Facility: [facility] Address: [address] [place] [address] Performed By: #### 5 7021-8 ####[facility] LABCLIA [id number] [place] [address] RBC (Bld) [#/Vol] 4.60 10*6/uL Normal 3.90-5.20 [facility] Comment on above: Order Comment: Speci men Type: BLOOD SPECIMENOrdering Facility: [facility] Address: [address] [place] [address] Performed By: #### 5 7021-8 ####[facility] LABCLIA [id number] [place] [address] WBC (Bld) [#/Vol] 8.00 10*3/uL Normal 3.70-11.00 [facility] Comment on above: Order Comment: Speci men Type: BLOOD SPECIMENOrdering Facility: [facility] Address: [address] [place] [address] Performed By: #### 5 7021-8 ####[facility] LABCLIA [id number] [place] [address] Comprehensive metabolic 2000 panelon 10-02-2024 Albumin [Mass/Vol] 4.5 g/dL Normal 3.9-4.9 [facility] Comment on above: Order Comment: Speci men Type: BLOOD SPECIMENOrdering Facility: [facility] Address: [address] [place] [address] Performed By: #### 2 4323-8 ####[facility] LABCLIA [id number] [place] [address] ALP [Catalytic activity/Vol] 100 U/L Normal 34-123 [facility] Comment on above: Order Comment: Speci men Type: BLOOD SPECIMENOrdering Facility: [facility] Address: [address] [place] [address] Performed By: #### 2 4323-8 ####[facility] LABCLIA [id number] [place] [address] ALT [Catalytic activity/Vol] 20 U/L Normal 7-38 [facility] Comment on above: Order Comment: Speci men Type: BLOOD SPECIMENOrdering Facility: [facility] Address: [address] [place] [address] Performed By: #### 2 4323-8 ####[facility] LABCLIA [id number] [place] [address] Anion gap [Moles/Vol] 14 mmol/L Normal 8-15 [facility] Comment on above: Order Comment: Speci men Type: BLOOD SPECIMENOrdering Facility: [facility] Address: [address] [place] [address] Performed By: #### 2 4323-8 ####[facility] LABCLIA [id number] [place] [address] AST [Catalytic activity/Vol] 17 U/L Normal 13-35 [facility] Comment on above: Order Comment: Speci men Type: BLOOD SPECIMENOrdering Facility: [facility] Address: [address] [place] [address] Performed By: #### 2 4323-8 ####[facility] LABCLIA [id number] [place] [address] Bilirubin [Mass/Vol] 0.3 mg/dL Normal 0.2-1.3 [facility] Comment on above: Order Comment: Speci men Type: BLOOD SPECIMENOrdering Facility: [facility] Address: [address] [place] [address] Performed By: #### 2 4323-8 ####[facility] LABCLIA [id number] [place] [address] Calcium [Mass/Vol] 9.8 mg/dL Normal 8.5-10.2 [facility] Comment on above: Order Comment: Speci men Type: BLOOD SPECIMENOrdering Facility: [facility] Address: [address] [place] [address] Performed By: #### 2 4323-8 ####[facility] LABCLIA [id number] [place] [address] Chloride [Moles/Vol] 103 mmol/L Normal 98-107 [facility] Comment on above: Order Comment: Speci men Type: BLOOD SPECIMENOrdering Facility: [facility] Address: [address] [place] [address] Performed By: #### 2 4323-8 ####[facility] LABCLIA [id number] [place] [address] CO2 [Moles/Vol] 22 mmol/L Normal 22-30 [facility] Comment on above: Order Comment: Speci men Type: BLOOD SPECIMENOrdering Facility: [facility] Address: [address] [id number] Performed By: #### 2 4323-8 ####[facility] LABCLIA [id number] [place] [address] Creatinine [Mass/Vol] 0.98 mg/dL High 0.58-0.96 [facility] Comment on above: Order Comment: Speci men Type: BLOOD SPECIMENOrdering Facility: [facility] Address: [address] [place] [address] Performed By: #### 2 4323-8 ####[facility] LABCLIA [id number] [place] [address] Creatinine and Glomerular filtration rate.predicted panel (S/P/Bld) 75 mL/min/1.73m??? Normal >=60 [facility] Comment on above: Order Comment: Speci men Type: BLOOD SPECIMENOrdering Facility: [facility] Address: [address] [place] [address] Result Comment: Ludivina mated Glomerular Filtration Rate [...] reflect actual GFR. Performed By: #### 2 4323-8 ####[facility] LABCLIA [id number] [place] [address] Glucose [Mass/Vol] 103 mg/dL High 74-99 [facility] Comment on above: Order Comment: Speci men Type: BLOOD SPECIMENOrdering Facility: [facility] Address: [address] [place] [address] Result Comment: The [place] Diabetes Association (ADA) provides guidance for cutoff [...] Standards of Medical Care in Diabetes 2016, [place] Diabetes Association. Diabetes Care. 2016.39(Suppl 1). Performed By: #### 2 4323-8 ####[facility] LABCLIA [id number] [place] [address] Potassium [Moles/Vol] 4.0 mmol/L Normal 3.7-5.1 [facility] Comment on above: Order Comment: Speci men Type: BLOOD SPECIMENOrdering Facility: [facility] Address: [address] [place] [address] Performed By: #### 2 4323-8 ####[facility] LABIA [id number] [place] [address] Protein [Mass/Vol] 7.3 g/dL Normal 6.3-8.0 [facility] Comment on above: Order Comment: Speci men Type: BLOOD SPECIMENOrdering Facility: [facility] Address: [address] [place] [address] Performed By: #### 2 4323-8 ####[facility] LABCLIA [id number] [place] [address] Sodium [Moles/Vol] 139 mmol/L Normal 136-144 [facility] Comment on above: Order Comment: Speci men Type: BLOOD SPECIMENOrdering Facility: [facility] Address: [address] [place] [address] Performed By: #### 2 4323-8 ####[facility] LABCLIA [id number] [place] [address] Urea nitrogen [Mass/Vol] 12 mg/dL Normal 7-21 [facility] Comment on above: Order Comment: Speci men Type: BLOOD SPECIMENOrdering Facility: [facility] Address: [address] [place] [address] Performed By: #### 2 4323-8 ####[facility] LABCLIA [id number] [place] [address] Lipid 1996 panelon 5 Cholesterol [Mass/Vol] 221 mg/dL High <200 [facility] Comment on above: Order Comment: Speci men Type: BLOOD SPECIMENOrdering Facility: [facility] Address: [address] [place] [address] Result Comment: <200 mg/dL, Desirable 200-239 mg/dL, Borderline high >239 mg/dL, High Performed By: #### 2 4331-1 ####[facility] LABCLIA [id number] [address] LABCLIA [id number] [place] [address]#### TSHRF ####[facility] LABCLIA [id number] [address] [address] [place] Cholesterol in HDL [Mass/Vol] 43 mg/dL Normal >39 [facility] Comment on above: Order Comment: Speci men Type: BLOOD SPECIMENOrdering Facility: [facility] Address: [address] [place] [address] Result Comment: 40-5 9 mg/dL, Acceptable >59 mg/dL, High: Negative risk factor for coronary heart disease <40 mg/dL, Low: Positive risk factor for coronary heart disease Performed By: #### 2 4331-1 ####[facility] LABCLIA [id number] [place] [id number] [facility] LABCLIA [id number] [place] [address]#### TSHRF ####[facility] LABCLIA [id number] [address] [address] [place] Cholesterol in LDL [Mass/Vol] 118 mg/dL High <100 [facility] Comment on above: Order Comment: Speci men Type: BLOOD SPECIMENOrdering Facility: [facility] Address: [address] [place] [address] Result Comment: <100 mg/dL, Optimal 100-129 mg/dL, Near optimal/above optimal 130-159 mg/dL, Borderline high 160-189 mg/dL, High >189 mg/dL, Very high Secondary prevention optimal LDL Cholesterol levels are recommended to be < 70 mg/dL Performed By: #### 2 4331-1 ####[facility] LABCLIA [id number] [address] LABCLIA [id number] [place] [address]#### TSHRF ####[facility] LABCLIA [id number] [address] Cholesterol in LDL/Cholesterol in HDL [Mass ratio] 2.74 {ratio} High <2.54 [facility] Comment on above: Order Comment: Speci men Type: BLOOD SPECIMENOrdering Facility: [facility] Address: [address] [place] [address] Result Comment: Jelly reyes: 1. National Cholesterol Education Program ATP III Guideline At-A-Glance Quick Desk Reference: National Heart, Lung, and Blood [place]. National Institutes of Health. 2001: NIH Publication No. 01-3305. 2. An International Atherosclerosis Society position paper: global recommendations for the management of dyslipidemia: executive summary, Atherosclerosis. 2014: 232(2):410-413. Performed By: #### 2 4331-1 ####[facility] LABCLIA [id number] [address] LABCLIA [id number] [place] [address]#### TSHRF ####[facility] LABIA [id number] [place] [id number] [place] Cholesterol in VLDL [Mass/Vol] 60 mg/dL High <30 [facility] Comment on above: Order Comment: Speci men Type: BLOOD SPECIMENOrdering Facility: [facility] Address: [address] [place] [address] Performed By: #### 2 4331-1 ####[facility] LABCLIA [id number] [place] [id number] [facility] LABCLIA [id number] [place] [address]#### TSHRF ####[facility] LABIA [id number] [place] [address] [place] Cholesterol non HDL [Mass/Vol] 178 mg/dL High <130 [facility] Comment on above: Order Comment: Speci men Type: BLOOD SPECIMENOrdering Facility: [facility] Address: [address] [place] [address] Result Comment: <130 mg/dL, Optimal 130-159 mg/dL, Near optimal/above optimal 160-189 mg/dL, Borderline high 190-219 mg/dL, High >219 mg/dL, Very high Secondary prevention optimal non HDL Cholesterol levels are recommended to be <100 mg/dL Performed By: #### 2 4331-1 ####[facility] LABCLIA [id number] [place] [id number] [facility] LABCLIA [id number] [place] [address]#### TSHRF ####[facility] LABIA [id number] [place] [address] [place] Cholesterol.total/Cho lesterol in HDL [Mass ratio] 5.14 {ratio} High <5.10 [facility] Comment on above: Order Comment: Speci men Type: BLOOD SPECIMENOrdering Facility: [facility] Address: [address] [place] [address] Performed By: #### 2 4331-1 ####[facility] LABCLIA [id number] [address] [address] [facility] LABCLIA [id number] [place] [address]#### TSHRF ####[facility] LABCLIA [id number] [address] [address] [place] FASTING TIME 5 hrs Normal [facility] Comment on above: Order Comment: Speci men Type: BLOOD SPECIMENOrdering Facility: [facility] Address: [address] [place] [address] Performed By: #### 2 4331-1 ####[facility] LABCLIA [id number] [address] [address] [facility] LABCLIA [id number] [place] [address]#### TSHRF ####[facility] LABCLIA [id number] [place] [id number] [place] Triglyceride [Mass/Vol] 300 mg/dL High <150 [facility] Comment on above: Order Comment: Speci men Type: BLOOD SPECIMENOrdering Facility: [facility] Address: [address] [place], [place] [address] Result Comment: <150 mg/dL, Normal 150-199 mg/dL, Borderline high 200-499 mg/dL, High >499 mg/dL, Very high Performed By: #### 2 4331-1 ####[facility] LABCLIA [id number] [address] [address] [facility] LABCLIA [id number] [place] [address]#### TSHRF ####[facility] LABCLIA [id number] [address] [address] [place] TSH W/REFLEX FT4on 5 TSH Qn 1.560 m[IU]/L Normal 0.270-4.200 [facility] Comment on above: Order Comment: Speci men Type: BLOOD SPECIMENOrdering Facility: [facility] Address: [address], [place] [address] Result Comment: If t he patient is , TSH reference range varies by gestational period: First Trimester (weeks 9-12): 0.180-2.990 mIU/L Second Trimester: 0.110-3.980 mIU/L Third Trimester: 0.480-4.710 mIU/L Oziel Chan et al. A Practical Approach for the Verifications and Determination of Site- and Trimester-Specific Reference Intervals for Thyroid Function tests in . Thyroid, 2019:29:3:412-420. Soren Christensen et al. 2017 Guidelines of the [place] Thyroid Association for the Diagnosis and Management of Thyroid Disease during and the . Thyroid, 2017:27:3:315-389. Performed By: #### 2 4331-1 ####[facility] LABCLIA [id number] [address] [address] [facility] LABCLIA [id number] [place] [address]#### TSHRF ####[facility] LABCLIA [id number] [place] [address] [facility] CNOVon 08-04-2024 CNOV Office Visit ([facility]PSLU[facility] ) LADI BYERS ([id number]) 1985 F Date Time Provider Department 08/04/24 3:40 PM JOO CRUZ SPSLU[facility] During your visit today, we recorded the following information about you: Weight Height 85.6 kg 1.524 m Joo Cruz MD 08/04/2024 3:41 PM Signed SPINE SURGERY FOLLOW UP This is an in-person visit. SERVICE DATE: 08/04/2024 SURGERY DATE: ACDF C6/7 on (Date: 08/24/2023) Ladi Byers is seen for 1 year post [...] MD PATIENT NAME: Ladi Byers DATE: August 04, 2024 TIME: 3: (more content not included)... [facility] XR CERVICAL 2V AP/LATon 07-07 XR CERVICAL 2V AP/LAT * * *Final [...] change. Progressive degenerative disc disease at C5-6 Production Expert: [facility] Transcribe Date/Time: Aug 07 2024 1:07P Dictated by : ROMY NOBLES MD This examination was interpreted and the report reviewed and electronically signed by: ROMY NOBLES MD on Aug 07 2024 1:09PM EST [id number] [facility] ALL CBC WITH AUTO DIFFon BASOPHILS ABSOLUTE AUTO 0.0 [facility] Basophils/100 WBC (Bld) 0.3 % 0.2 - 2.0 % [facility] Eosinophils/100 WBC (Bld) 1.5 % 0.9 - 7.0 % [facility] Erythrocyte distribution width (RBC) [Ratio] 15.1 % High 11.0 - 15.0 % [facility] Hematocrit (Bld) [Volume fraction] 36.5 % 36.0 - 48.0 % [facility] Hemoglobin (Bld) [Mass/Vol] 12.3 g/dL 12.0 - 16.0 g/dL [facility] IMMATURE GRANULOCYTES ABS AUTO 0.03 [facility] Immature granulocytes/100 WBC (Bld) 0.3 % 0.0 - 0.5 % [facility] Interpretation and review of laboratory results Abnormal [facility] LYMPHOCYTES ABSOLUTE AUTO 3.5 [facility] Lymphocytes/100 WBC (Bld) 38.5 % 20.5 - 60.0 % [facility] MCH (RBC) [Entitic mass] 30.1 pg 26.7 - 34.0 pg [facility] MCHC (RBC) [Mass/Vol] 33.7 g/dL 29.9 - 35.2 g/dL [facility] MCV (RBC) [Entitic vol] 89.5 fL 81.0 - 99.0 fL [facility] MONOCYTES ABSOLUTE AUTO 0.5 [facility] Monocytes/100 WBC (Bld) 5.6 % 1.7 - 12.0 % [facility] NEUTROPHILS ABSOLUTE AUTO 4.8 [facility] Neutrophils/100 WBC (Bld) 53.8 % 43.0 - 75.0 % [facility] Platelet mean volume (Bld) [Entitic vol] 8.7 fL Low 9.5 - 13.5 fL [facility] TB EO # 0.1 [facility] TB PLT 304 [facility] RBC 4.08 Low [facility] TB WBC 9.0 [facility] CLINISYNC [facility] No Panel InformationOrdered By: Solomon Sorensen on 02-09-2024 Miscellaneous Pathology Test See comment [facility] Comment on above: See report. Scanned copy available in EMR. Pathology Request for Lab Co rpon 02-09-2024 Pathology Request for Lab [place] Normal [facility] Comment on above: Order Comment: PATHO LOGY COPPER PLATE PRINTER SPECIMEN Result Comment: See report. Scanned copy available in EMR. PERFORMED BY: [place] [address] PATHOLOGIST TRAUMA COORDINATOR ABHAY SOLOMON M.D. Performed By: #### P ATH TO [facility] #### [address] CNPErika 01-24-2024 CNPN Telephone ([facility]) LADI BYERS ([id number]) 1985 F Date Time Provider Department 01/24/24 JOO CRUZ [facility] During your visit today, we recorded [...] Status Change Date Reviewed: 11/30/2023 Reviewed by: Lloyd Mcconnell APRN.PARENT PARTNER - Fully Assessed Prescriptions as of 01/26/2024 [...] 08/24/2023 Level of Service: OFFICE/OUTPATIENT ESTABLISHED SF [facility] 10 MIN [[id number]] Encounter Status:Closed by JOO CRUZ on 01/24/24 [facility] Physician Orderon 11-15-2023 Physician Order [id number] [facility] 11-12-2023 CNPN Telephone (SPSLUH) LADI BYERS ([id number]) 1985 F Date Time Provider Department 11/12/23 JOO CRUZR [facility] During your visit today, we recorded the following information about you: Marv Murillo RN 11/12/2023 1:40 PM Signed Incoming fax received at 1 E office and scanned into patient chart. Marv Murillo RN 11/15/2023 10:26 AM Signed Fax sent to [facility] regarding completed Physical Therapy Initial Examination. [...] Encounter Status:Closed by MARV MURILLO on 11/12/23 [facility] 11[facility]2023 [facility] Office Visit ([facility] ) LADI BYERS ([id number]) 1985 F Date Time Provider Department 11/01/23 4:00 PM JOO CRUZ [facility] During your visit today, we recorded [...] 3:21 PM PAGER: Referring Provider: JOO CRUZ [[id number]] Allergies As of Date: 11/01/2023 Noted Allergy [...] Order #: [id number] (more content not included)... [facility] XR CERVICAL 2V AP/LATon -2 XR CERVICAL [...] IMPRESSION: Status post C6-C7 anterior spinal fusion. Production Expert: ADRYAN Transcribe Date/Time: Nov 02 2023 2:05P Dictated by : DIEGO AMIN MD This examination was interpreted and the report reviewed and electronically signed by: DIEGO AMIN MD on Nov 02 2023 2:08PM EST [id number] [facility] CNOVon 09-10-2023 CNOV Office Visit (SPSLUH ) LADI BYERS ([id number]) 1985 F Date Time Provider Department 09/10/23 8:40 AM [facility], we [...] 9:38 AM PAGER: Referring Provider: JOO CRUZ [[id number]] Allergies As of Date: 09/10/2023 Noted Allergy [...] as needed fo (more content not included)... [facility] 08-27-2023 [facility] Telephone ([facility]) LADI BYERS ([id number]) 1985 F Date Time Provider Department 08/27/23 JOO CRUZ [facility] During your visit today, we recorded the following information about you: Marv Murillo RN 08/27/2023 9:14 AM Signed Incoming mail to [facility]. Insurance document scanned into patient chart. Allergies [...] Encounter Status:Closed by MARV MURILLO on 08/27/23 [facility] 08-25-2023 [facility] HNO ID: [id number] Author: YULY SUMMERS RT(Jeremy) Service: Radiology Author Type: Technologist Type: Allied [...] PATIENT PRESENTS WITH AN IMPLANTABLE OR ATTACHED POWER TOOL REPAIR TECHNICIAN: No RADIOLOGY DEPARTMENT: General X-ray: Exam(s) Completed: Spine X-Ray(s): Cervical AP / LAT PERIPHERAL IV DATA: Not applicable SIGNED BY: RT Carlos Manuel(R) August 25, 2023 1:48 PM Normal [facility] Basic metabolic 2000 panelon 08-25-2023 Anion gap [Moles/Vol] 10 mmol/L Normal 9-18 [facility] Comment on above: Order Comment: Speci men Type: BLOOD SPECIMEN Ordering Facility: [facility] Address: [address] [place] [address] Performed By: #### 2 4321-2 #### [facility] CLIA [id number] [address] [place] [address] [place] Calcium [Mass/Vol] 8.8 mg/dL Normal 8.5-10.2 [facility] Comment on above: Order Comment: Speci men Type: BLOOD SPECIMEN Ordering Facility: [facility] Address: [address] [place] [address] Performed By: #### 2 4321-2 #### [facility] CLIA [id number] [address] [place] [address] [place] Chloride [Moles/Vol] 107 mmol/L High 97-105 [facility] Comment on above: Order Comment: Speci men Type: BLOOD SPECIMEN Ordering Facility: [facility] Address: [address] [place] [address] Performed By: #### 2 4321-2 #### [facility] CLIA [id number] [address] [place] [address] [place] CO2 [Moles/Vol] 23 mmol/L Normal 22-30 [facility] Comment on above: Order Comment: Speci men Type: BLOOD SPECIMEN Ordering Facility: [facility] Address: [address] [place] [address] Performed By: #### 2 4321-2 #### [facility] CLIA [id number] [address] [place] [address] [place] Creatinine [Mass/Vol] 0.73 mg/dL Normal 0.58-0.96 [facility] Comment on above: Order Comment: Speci men Type: BLOOD SPECIMEN Ordering Facility: [facility] Address: [address] [place] [address] Performed By: #### 2 4321-2 #### [facility] CLIA [id number] [address] [place], [place] [address] [place] Creatinine and Glomerular filtration rate.predicted panel (S/P/Bld) 108 mL/min/1.73m??? Normal >=60 [facility] Comment on above: Order Comment: Caryn campos Type: BLOOD SPECIMEN Ordering Facility: [facility] Address: [address] [place] [address] Result Comment: Ludivina mated Glomerular Filtration Rate [...] GFR. Performed By: #### 2 4321-2 #### [facility] CLIA [id number] [address] [place] [address] [place] Glucose [Mass/Vol] 103 mg/dL High 74-99 [facility] Comment on above: Order Comment: Caryn campos Type: BLOOD SPECIMEN Ordering Facility: [facility] Address: [address] [place] [address] Result Comment: The [place] Diabetes Association (ADA) provides guidance for cutoff [...] Standards of Medical Care in Diabetes 2016, [place] Diabetes Association. Diabetes Care. 2016.39(Suppl 1). Performed By: #### 2 4321-2 #### [facility] CLIA [id number] [address] [place] [address] [place] Potassium [Moles/Vol] 4.5 mmol/L Normal 3.7-5.1 [facility] Comment on above: Order Comment: Speci men Type: BLOOD SPECIMEN Ordering Facility: [facility] Address: [address] [place] [address] Performed By: #### 2 4321-2 #### [facility] CLIA [id number] [address] [place] [address] [place] Sodium [Moles/Vol] 140 mmol/L Normal 136-144 [facility] Comment on above: Order Comment: Speci men Type: BLOOD SPECIMEN Ordering Facility: [facility] Address: [address] [place] [address] Performed By: #### 2 4321-2 #### [facility] CLIA [id number] [address] [place] [address] [place] Urea nitrogen [Mass/Vol] 6 mg/dL Low 7-21 [facility] Comment on above: Order Comment: Speci men Type: BLOOD SPECIMEN Ordering Facility: [facility] Address: [address] [place] [address] Performed By: #### 2 4321-2 #### [facility] CLIA [id number] [address] [place] [address] [place] CASE MGT INIT ASSESon 2023 CASE MGT INIT ASSES HNO ID: [id number] Author: JUANJOSE CHAN LISW Service: ? Author Type: Actuary Manager Type: Care Mgt Initial Assessment Filed: 08/25/2023 10:14 Note Text: CARE MANAGEMENT: ASSESSMENT AND DISCHARGE PLAN SERVICE DATE: August 25, 2023 SERVICE TIME: 10:12 PCP: Reuben Agrawal PA-C Primary Contact: Extended Emergency Contact Information Primary Emergency Contact: Jameson Byers Address: [address] [place] [address] [place] Mobile Relation: Son Secondary Emergency Contact: Dari Byers Mobile Relation: Mother Admission Status: Inpatient Insurance Provider: [facility] MEDICAID Discharge Planning requested by: Per Department Practice Potential Transition Plans Home Advance Directives Current Advance Directive: None Electrician Telephone Attempted to Assist with AD Completion: Yes Action: Education Provided Current Living Arrangements and Support Lives with: Children Type of Residence: Private Residence (Apartment or Condo) Does the patient have to climb stairs at home?: No Support: Children, Parent How do you manage to accomplish the following: Independent: Ambulation;Transportation to appointments/community;Bath e/Shower;Dress;Meals/Meal Prep;Going to the bathroom;Medication Management Current Services/Equipment Current Post-Acute Service(s): None Discharge Planning Patient Goal(s): Less pain, General wellness [place] of Choice Explained: [place] of Choice Given: No Reason Not Given: [...] 25, 2023 TIME: 10:12 AM CONTACT #: [phone] Normal [facility] CBC panel Auto (Bld)on 08-25 Erythrocyte distribution width (RBC) [Ratio] 16.1 % High 11.5-15.0 [facility] Comment on above: Order Comment: Speci men Type: BLOOD SPECIMEN Ordering Facility: [facility] Address: [address] [place] [address] Performed By: #### 5 8410-2 #### [facility] CLIA [id number] [address] [place] [address] [place] Hematocrit (Bld) [Volume fraction] 30.2 % Low 36.0-46.0 [facility] Comment on above: Order Comment: Speci men Type: BLOOD SPECIMEN Ordering Facility: [facility] Address: [address] [place] [address] Performed By: #### 5 8410-2 #### [facility] CLIA [id number] [address] [place] [address] [place] Hemoglobin (Bld) [Mass/Vol] 9.5 g/dL Low 11.5-15.5 [facility] Comment on above: Order Comment: Speci men Type: BLOOD SPECIMEN Ordering Facility: [facility] Address: [address] [place] [address] Performed By: #### 5 8410-2 #### [facility] CLIA [id number] [address] [place] [address] [place] MCH (RBC) [Entitic mass] 25.4 pg Low 26.0-34.0 [facility] Comment on above: Order Comment: Speci men Type: BLOOD SPECIMEN Ordering Facility: [facility] Address: [address] [place] [address] Performed By: #### 5 8410-2 #### [facility] CLIA [id number] [address] [place] [address] [place] MCHC (RBC) [Mass/Vol] 31.5 g/dL Normal 30.5-36.0 [facility] Comment on above: Order Comment: Speci men Type: BLOOD SPECIMEN Ordering Facility: [facility] Address: [address] [place] [address] Performed By: #### 5 8410-2 #### [facility] CLIA [id number] [address] [place] [address] [place] MCV (RBC) [Entitic vol] 80.7 fL Normal 80.0-100.0 [facility] Comment on above: Order Comment: Speci men Type: BLOOD SPECIMEN Ordering Facility: [facility] Address: [address] [place] [address] Performed By: #### 5 8410-2 #### [facility] CLIA [id number] [address] [place], [place] [address] [place] Nucleated RBC (Bld) [#/Vol] 10*3/uL Normal <0.01 [facility] Comment on above: Order Comment: Speci men Type: BLOOD SPECIMEN Ordering Facility: [facility] Address: [address] [place] [address] Performed By: #### 5 8410-2 #### [facility] CLIA [id number] [address] [place] [address] [place] Platelet mean volume (Bld) [Entitic vol] 9.6 fL Normal 9.0-12.7 [facility] Comment on above: Order Comment: Speci men Type: BLOOD SPECIMEN Ordering Facility: [facility] Address: [address] [place] [address] Performed By: #### 5 8410-2 #### [facility] CLIA [id number] [address] [place] [address] [place] Platelets (Bld) [#/Vol] 355 10*3/uL Normal 150-400 [facility] Comment on above: Order Comment: Speci men Type: BLOOD SPECIMEN Ordering Facility: [facility] Address: [address] [place] [address] Performed By: #### 5 8410-2 #### [facility] CLIA [id number] [address] [place] [address] [place] RBC (Bld) [#/Vol] 3.74 10*6/uL Low 3.90-5.20 [facility] Comment on above: Order Comment: Speci men Type: BLOOD SPECIMEN Ordering Facility: [facility] Address: [address] [place] [address] Performed By: #### 5 8410-2 #### [facility] CLIA [id number] [address] [place], [place] [address] [place] WBC (Bld) [#/Vol] 14.23 10*3/uL High 3.70-11.00 [facility] Comment on above: Order Comment: Caryn campos Type: BLOOD SPECIMEN Ordering Facility: [facility] Address: [address] [place] [id number] Performed By: #### 5 8410-2 #### [facility] IA [id number] [address] [place] [id number] [facility] CNDSon 08-25-2023 CNDS HNO ID: [id number] Author: DERIK AMARAL MD Service: Orthopaedic Surgery Author Type: Resident Type: Discharge Summary Filed: 08/25/2023 07:08 Note Text: Attestation signed by Joo Cruz MD at 08/25/2023 8:18 AM I have personally seen and examined the above patient. I have confirmed the carrasco components of the history and physical exam with the patient and agree with the findings, assesment and plan documented above by the ortho resident. Post op acdf doing well.. Joo Cruz MD Spine Surgery. ORTHOPEDIC SURGERY DISCHARGE SUMMARY ADMISSION DATE: 08/24/2023 [...] old female who has been followed by Dr. Cruz, Joo Gilbert MD, in clinic for cervical stenosis. It was determined she would benefit from surgery. The procedure, its risks, benefits, and potential complications were discussed in detail with the patient prior to surgery. Understanding of all topics was conveyed by the patient, and consent was given for surgery. The patient was electively admitted to the [facility] on 08/24/2023. Surgery was scheduled and on [...] Center 09/10/2023 8:40 AM Joo Cruz MD [facility] 09/13/2023 9:15 AM GENERAL [facility] 11/01/2023 4:00 PM Joo Cruz MD [facility] 01/31/2024 1:30 PM Franchesca Low MD [facility] Discharge Medications: Medication List START taking these medications docusate sodium 100 mg capsule Commonly known as: COLACE Take 1 capsule by mouth two times a day. oxyCODONE IR 5 mg immediate release tablet Commonly known as: ROXICODONE Take 1 tablet by mouth every 4 hours as needed for (more content not included)... [facility] THERAPY NTon 08-25-2023 THERAPY NT HNO ID: [id number] Author: AKIN BILLINGSLEY, PT, DPT Service: Physical Therapy Author Type: Physical Therapist Type: Therapy (PT/OT/Speech/Resp) Filed: 08/25/2023 13:34 Note Text: Physical Therapy Evaluation Summary SERVICE DATE: 08/25/2023 SERVICE TIME: 1253 to 1311 ROOM: [id number] PT 6 Clicks Score: 24 DISCHARGE RECOMMENDATIONS [...] for Next Visit: Gait Training SIGNATURE: Akin Billingsley PT, DPT PATIENT NAME: Ladi Byers DATE: August 25, 2023 TIME: 1:34 PM [facility] THERAPY NT HNO ID: [id number] Author: LATOYA HEIN OTR/L Service: Occupational Therapy Author Type: Occupational Therapist Type: Therapy (PT/OT/Speech/Resp) Filed: 08/25/2023 13:39 Note Text: Per discussion with PT, pt with no skilled OT needs at this time. OT to discontinue orders. [facility] XR CERVICAL 2V AP/LATon 08-06 XR CERVICAL 2V AP/LAT * * *Final Report* * * DATE OF EXAM: Aug 25 2023 1:54PM [facility] 5308 - XR CERVICAL 2V AP/LAT / [...] is seen. Prevertebral soft tissues are unremarkable. Production Expert: PSCB Transcribe Date/Time: Aug 25 2023 3:54P Dictated by : EUGENIA CISNEROS MD This examination was interpreted and the report reviewed and electronically signed by: EUGENIA CISNEROS MD on Aug 25 2023 3:55PM EST [id number] [facility] ANES POSTPROC EVALon 024 ANES POSTPROC EVAL HNO ID: [id number] Author: GENEVIEVE VIEIRA MD Service: Anesthesiology Author Type: Anesthesiologist Type: Anesthesia Postprocedure Evaluation Filed: 08/24/2023 15:18 Note Text: POST ANESTHESIA EVALUATION NOTE : 1985 Procedure Summary Date: 08/24/23 Room / Location: [place] [address] / OR Anesthesia Start: 1204 Anesthesia Stop: 1501 [...] August 24, 2023 TIME: 3:18 PM CSN: [id number] [facility] ANES PRE-OPon 08-24-2023 ANES PRE-OP HNO ID: [id number] Author: GENEVIEVE VIEIRA MD Service: Anesthesiology Author [...] Koo present: no Lip Bite Test: II Microretrognathia/Micronagt hia/Recessed Chin: No DENTAL Dental findings: missing tooth/teeth [...] SIGNATURE: Genevieve Vieira MD PATIENT NAME: Ladi Byesr DATE: August 24, 2023 TIME: 10:51 AM CSN: [id number] [facility] BRIEF OP NOTon 08-24-2023 BRIEF OP NOT HNO ID: [id number] Author: JOO CRUZ MD Service: Neurosurgery Author Type: Physician Type: Brief Op Note Filed: 08/24/2023 14:51 Note Text: BRIEF OP NOTE LOG ID: [id number] Surgery/Procedure Date: 08/24/2023 Incision/Procedure Start Time: 12:49 PM Incision Close/Procedure End Time: 2:41 PM Surgeon(s)/Proceduralist(s) and Supervisor Shuttle Veneering(s): Surgeon(s) and Role: * Joo Cruz MD - Primary Pre-Op/Pre-Procedure Diagnosis: cervical myelo/radiculopathy Post-Op/Post-Procedure Diagnosis: same Procedure(s): ACDF C6/7 Anesthesia: General Estimated Blood Loss: 15 mls Specimens Removed: * No specimens in log * Drain: Implant Name Type Inv. Item Serial No. Provider Service Representative Lot No. LRB No. Used Action PIN YELLOW TITANIUM 14MM DISTRACTION STERILE DISPOSABLE - [id number] Pin PIN YELLOW TITANIUM 14MM DISTRACTION STERILE DISPOSABLE MEDICAL [id number] N/A 1 Non-Implant PIN YELLOW TITANIUM 14MM DISTRACTION STERILE DISPOSABLE - [id number] Pin PIN YELLOW TITANIUM 14MM DISTRACTION STERILE DISPOSABLE MEDICAL [id number] N/A 1 Non-Implant SPACER AVS 4D 6MM SPINAL BONE PLUG - [id number] Graft SPACER AVS 4D 6MM SPINAL BONE PLUG [id number] SHANNON SPINE N/A 1 Implanted OZARK SELF [...] 24, 2023 TIME: 2:51 PM PAGER/CONTACT #: [phone] Joo Cruz MD Spine Surgery. Call/text with any issues: Please page [facility] ([phone]) from 5p-6a and on weekends for any issues. Between 5PM to 7AM, or if urgent, please page the orthopaedic on-call resident at: [facility] ([phone]) for [facility] patients [id number] for [facility] patients [facility] CONSULTon 08-24-2023 CONSULT HNO ID: [id number] Author: NAPOLEON BISHOP MD Service: General Internal [...] NECK: Ne (more content not included)... Normal [facility] HCG Preg Ur Qlon 08-24-2023 HCG ( test) Ql (U) Negative Normal Negative [facility] Comment on above: Order Comment: Speci men Type: URINE SPECIMEN Ordering Facility: [facility] Address: [address] [place] [address] [place] [address] Result Comment: This test is intended to aid in the early detection of . Very dilute urine samples, as indicated by a low specific gravity, may not contain customer service representative teacher levels of hCG. This test detects intact [...] . Performed By: #### 2 106-3 #### [facility] [id number] [address] [place] [address] OF [place] NURSING PROGon 08-24-2023 NURSING PROG HNO ID: [id number] Author: JULES ZUÑIGA RN Service: ? Author Type: Registered Nurse Type: Nursing Progress Note Filed: 08/24/2023 18:27 Note Text: Transfer Note: PATIENT NAME: Ladi Byers Patient Location: [facility]/[id number] Room: [place] [address] Patient transferred into room/unit [facility] in stable condition. Actions taken: No futher actions taken at this time. Will continue to monitor and check with patient. [facility] OPERATIVE NOon 08-24-2023 OPERATIVE NO HNO ID: [id number] Author: JOO CRUZ MD Service: Neurosurgery Author Type: Physician Type: Operative Report Filed: 08/24/2023 16:58 Note Text: Operative NOTE LOG ID: [id number] Surgery/Procedure Date: 08/24/2023 Incision/Procedure Start Time: 12:49 PM Incision Close/Procedure End Time: 2:41 PM Surgeon(s)/Proceduralist(s) and Supervisor Shuttle Veneering(s): Surgeon(s) and Role: * Joo Cruz MD - Primary Pre-Op/Pre-Procedure Diagnosis: Cervical myelopathy /radiculopathy Post-Op/Post-Procedure Diagnosis: same Procedure(s): ACDF C6/7 Anesthesia: General Estimated Blood Loss: 15 mls Specimens Removed: * No specimens in log * Drain: Implant Name Type Inv. Item Serial No. Provider Service Representative Lot No. LRB No. Used Action PIN YELLOW TITANIUM 14MM DISTRACTION STERILE DISPOSABLE - [id number] Pin PIN YELLOW TITANIUM 14MM DISTRACTION STERILE DISPOSABLE MEDICAL [id number] N/A 1 Non-Implant PIN YELLOW TITANIUM 14MM DISTRACTION STERILE DISPOSABLE - [id number] Pin PIN YELLOW TITANIUM 14MM DISTRACTION STERILE DISPOSABLE [facility] [id number] N/A 1 Non-Implant SPACER AVS 4D 6MM SPINAL BONE PLUG - [id number] Graft SPACER AVS 4D 6MM SPINAL BONE PLUG [id number] SHANNON SPINE N/A 1 Implanted OZARK SELF [...] the longus colli muscle flaps at C6/7. [place] pins were placed into the vertebral body of C6 and C7. We confirmed our level using intraoperative fluoroscopy according to [facility]. At this point, The surgical microscope was brought into the field and the remaining portion of the operation performed using microdissection techniques. A complete diskectomy was performed at C6-C7 level. An anterior annulotomy was created using a #15 blade scalpel. The disk and endplate cartilages were removed in their entirety from valrgltc-up-vaqvadmy in anterior-posterior fashion. A posterior osteophyte was [...] used a 6 (more content not included)... [facility] XR CERVICAL 2V AP/LATon 08-06 XR [...] spaces are maintained IMPRESSION: SATISFACTORY POSTOPERATIVE SPINE Production Expert: ADRYAN Transcribe Date/Time: Aug 26 2023 3:02P Dictated by : SADIE NATH MD This examination was interpreted and the report reviewed and electronically signed by: SADIE NATH MD on Aug 26 2023 3:03PM EST [id number] [facility] XR VERIFY LEVEL [id number] 08-24-2023 XR VERIFY LEVEL C-SPINE-NB * * [...] phone and Skype during the surgical procedure. Production Expert: ADRYAN Transcribe Date/Time: Aug 24 2023 1:18P Dictated by : EUGENIA CISNEROS MD This examination was interpreted and the report reviewed and electronically signed by: EUGENIA CISNEROS MD on Aug 24 2023 1:20PM EST [id number] [facility] ECG 12-Leadon 07-19-2023 ECG 12-Lead [id number]#[id number] Normal [facility] Comment on above: Other Comment: PROVI CARLO REFUSED TO SIGN Echocardiographyon Echocardiography [id number]#[id number] Normal [facility] CT CERVICAL SPINE WO IVCONon 07-16-2023 CT CERVICAL SPINE WO IVCON * * *Final Report* * * DATE OF EXAM: Jul 16 2023 3:26PM [facility] [place] - CT CERVICAL SPINE WO IVCON [...] Counting reference: Craniocervical junction. Anatomic Variants: None. Kiln Burner (topogram) images: No additional findings. Alignment: There [...] No CT evidence of central canal stenosis. Production Expert: ADRYAN Transcribe Date/Time: Jul 16 2023 8:55P Dictated by : DIEGO AMIN MD This examination was interpreted and the report reviewed and electronically signed by: DIEGO AMIN MD on Jul 16 2023 9:00PM EST [id number] Normal [facility] No Panel Informationon 06-18 [facility] MR Cervical spine WO contras ton 04-15-2023 IMPRESSION: Mild ectopia of the cerebellar tonsils which does not quite meet the criteria for a Chiari I malformation. No significant compression of the cervical medullary junction. Left central disc extrusion at C6-7 with mild eccentric cord compression. Otherwise no significant cervical canal or foraminal stenosis. Anatomic Variant: None. Assume 7 cervical vertebrae with counting from the craniocervical junction. Production Expert: [facility] Transcribe Date/Time: Apr 15 2023 12:11P Dictated by : KRISTY RINCON MD This examination was interpreted and the report reviewed and electronically signed by: KRISTY RINCON MD on Apr 15 2023 12:19PM EST DIVISION OF RADIOLOGY * * *Final Report* * * DATE [...] thoracic spinal canal and foramina are patent. DIVISION OF RADIOLOGY Provider, [facility] - 04/15/2023 * * *Final Report* * * DATE OF EXAM: Apr 15 2023 10:56AM [facility] 0297 - MRI CERVICAL SPINE WO IVCON [...] thoracic spinal canal and foramina are patent. IMPRESSION IMPRESSION: Mild ectopia of the cerebellar tonsils which does not quite meet the criteria for a Chiari I malformation. No significant compression of the cervical medullary junction. Left central disc extrusion at C6-7 with mild eccentric cord compression. Otherwise no significant cervical canal or foraminal stenosis. Anatomic Variant: None. Assume 7 cervical vertebrae with counting from the craniocervical junction. Production Expert: [facility] Transcribe Date/Time: Apr 15 2023 12:11P Dictated by : KRISTY RINCON MD This examination was interpreted and the report reviewed and electronically signed by: KRISTY RINCON MD on Apr 15 2023 12:19PM EST [facility] Radiology Study observation (narrative) [facility] MR Cervical spine WO contras tOrdered By: [facility] Provider on 04-15-2023 [facility] Office Visiton 03-04-2023 Follow-up visit [id number] Ariadne Byers 1985 F Date Provider Department Center 03/04/2023 3848-KYLEE VALENCIA [facility] No family history on file Level of Service:01256 ME OFFICE/OUTPATIENT ESTABLISHED MOD MDM 30-39 MIN Normal [facility] US Pelvis Non-OB Completeon 02-08-2023 US [...] free fluid within the pelvis. Ordering Provider: Romy Barkley FINAL REPORT Dictated: 02/08/2023 11:58 am Yury Ho DO Signed (Electronic Signature): 02/08/2023 11:58 am Signed by: Yury Ho DO Transcribed by: DEEPTHI Technologist: MEGAN Technical Comments Transabdominal Ultrasound Performed Transvaginal Ultrasound Performed Uterus Position Anteverted Normal [facility] US Transvaginal Non-OBon US Transvaginal Non-OB Exam Date/Time: 02/04/2023 13:40 EDT Reason for Exam: Pelvic pain Report Please see ultrasound pelvis non-OB complete report. Ordering Provider: Romy Barkley FINAL REPORT Dictated: 02/08/2023 11:58 am Yury Ho DO Signed (Electronic Signature): 02/08/2023 11:58 am Signed by: Yury Ho DO Transcribed by: DEEPTHI Technologist: MEGAN Normal [facility] Consent for Treatmenton Consent for Treatment [id number]:127 Normal [facility] Consent for Treatmenton 01-04 Consent for Treatment [id number]:127 [facility] Consent for Treatment [id number]:127 Normal [facility] Physician Orderon 01-28-2023 Physician Order [id number]:127 Normal [facility] Discharge Instructionson Discharge Instructions [id number]:127 Normal [facility] ED Clinical Summaryon 2022 ED Clinical Summary (Inserted Image. Natalya ble to display) [address] [address] ED Clinical Summary Person Information Name: LADI BYERS [facility] Age: 37 Years : 1985 Sex: Female Language: Central African PCP: TERESA PATEL CNP Marital Status: Single [...] 12/24/2022 01:12:18 12/24/2022 01:12:18 12/24/2022 01:12:18 ADDRESS: [address] [place] [address] DR LAURA Pineda [place]SE [place] [phone] PHYS DOC NOTES: MEDICAL INFORMATION: Prescriptions Given: New Medications [facility]/pharmacy #[id number], [address], [place] [id number], [phone] dicyclomine (Bentyl 10 mg Cap) 1 Capsules By Mouth 4 times a day as needed Other (see comment). For abdominal cramping. Refills: 0. potassium chloride (potassium chloride 20 mEq ER Tab) 1 Tablets By Mouth every day for 5 Days. Refills: 0. Medications to Continue Taking That Have Changed [facility]/pharmacy #[id number], [address], [place] [id number], [phone] START: promethazine (Phenergan 25 mg Supp) 1 [...] every da (more content not included)... Normal [facility] ED Note-Physicianon 12-25-19 ED Note-Physician [...] She reports that she has seen a engineering aid for this in the past. My recommendation was she discussed with them debora (more content not included)... Normal [facility] Comment on above: Result Comment: Leonid kim Signed By: Silas Durant DO.anne\Date and Time Signed: 12/24/22 02:36 EDT ED [...] ? Antihistamines. ? Medicines for migraines. ? Jknx-ghb-odwgupt pain medicine. ? Over-the counter diet supplements. Severe nausea and vomiting may require you to stay at the hospital. You may need IV fluids to prevent or treat dehydration. Follow these instructions at home: During an episode ? Take jguv-jbf-qtvwoln and prescription medicines only as told by [...] avoid spicy or fatty foods, such as albanian fries and pizza. General instructions ? Monitor [...] tears while (more content not included)... Normal [facility] ED Patient Summaryon 023 ED Patient Summary (Inserted Image. Natalya ble to display) [address] [address] Patient Discharge Instructions Person Information Name: LADI BYERS Age: 37 Years Arrival Date: 12/23/2022 19:36:32 Discharge Diagnosis: Cyclical vomiting; Marijuana use; Prolonged QT interval Primary Care Physician: TERESA PATEL CNP Provider Information Primary Provider: Silas Durant DO Advanced Cook Fishing Vessel:None The exam and treatment you received in the Emergency Department were for an urgent problem and are not intended as complete care. It is important that you follow up with a doctor, nurse practitioner, or physician?s assistant professor nurse education for ongoing care. If your symptoms become worse or you do not improve as expected and you are unable to reach your usual health care provider, you should return to the Emergency Department. We are available 24 hours a day. LADI BYERS has been given the following list of patient education materials, prescriptions and follow-up instructions: Follow-up Instructions: With: Address: When: Padronlino ROBERTSON [address] [place] [address]. [address] [place], [place] [id number] [facility] (1) In 3 days 12/27/2022 Comments: Call to discuss your ongoing cyclic vomiting. Abstain from marijuana for 6 months to determine if this may be the cause. Take antinausea meds only as prescribed. There is increased risk of these medications for you given your prolonged QTc. Only take 1 antiemetic at this time. Follow-up with your engineering aid to discuss your QTc prolongation further. With: Address: When: TERESA PATEL [address] [place] [phone] Business (1) In 3 days 12/27/2022 Comments: [...] opioids can be used to help relieve jenbkimx-xq-nuykvt pain and are often prescribed following a [...] ? Some (more content not included)... Normal [facility] Monitor Recordon 12-24-2022 Monitor Record [id number]:127 Normal [facility] U Drug Screenon 12-24-2022 Tetrahydrocannabinol Screen method >50 ng/mL Ql (U) Positive Abnormal Negative [facility] Comment on above: Result Comment: Nega tive Cutoff: <50 ng/mL Performed By: #### 2 713203 ####[facility] [address] [place] [address] Amphetamines Screen method >1000 ng/mL Ql (U) Negative Normal Negative [facility] Comment on above: Result Comment: Nega tive Cutoff: <1000 ng/mL Performed By: #### 2 400393 ####[facility] [address] [place] [address] Barbiturates Screen Ql (U) Negative Normal Negative [facility] Comment on above: Result Comment: Nega tive Cutoff: <200 ng/mL Performed By: #### 2 558078 ####[facility] [address] [place] [address] Benzodiazepines Ql (U) Negative Normal Negative [facility] Comment on above: Result Comment: Nega tive Cutoff: <200 ng/mL Performed By: #### 2 505536 ####[facility] [address] [place] [address] Cocaine Ql (U) Negative Normal Negative [facility] Comment on above: Result Comment: Nega tive Cutoff: <300 ng/mL Performed By: #### 2 356191 ####[address] [address] Opiates Screen Ql (U) Negative Normal Negative [facility] Comment on above: Result Comment: Nega tive Cutoff: <300 ng/mL Performed By: #### 2 808323 ####[address] [place] [address] Phencyclidine Screen method >25 ng/mL Ql (U) Negative Normal Negative [facility] Comment on above: Result Comment: Nega tive Cutoff: <25 ng/mL These drug screen results are to be used for medical (i.e., treatment) purposes only. Unconfirmed drug screening results must not be used for non-medical purposes (e.g., employment testing, legal testing). Performed By: #### 2 395217 ####[address] [address] UA With Cult Reflexon 2022 Bilirubin Ql (U) Negative Normal Negative [facility] Comment on above: Performed By: #### 1 5197963 ####[address] [address] Clarity (U) CLEAR Normal Clear [facility] Comment on above: Performed By: #### 1 1050604 ####[address] [address] Color (U) YELLOW Normal Yellow [facility] Comment on above: Performed By: #### 1 7240921 ####[address] [address] Crystals LM Ql (Urine sed) Present Normal [facility] Comment on above: Performed By: #### 1 7018081 ####[address] [address] Epithelial cells.squamous LM.HPF (Urine sed) [#/Area] 0-2 Normal 0-2 [facility] Comment on above: Performed By: #### 1 5842663 ####[facility] [address] [place] [address] Glucose Test strip (U) [Mass/Vol] Negative Normal Negative [facility] Comment on above: Performed By: #### 1 9072022 ####[facility] [address] [place] [address] Hemoglobin Ql (U) Negative Normal Negative [facility] Comment on above: Performed By: #### 1 5882691 ####[facility] [address] [place] [address] Ketones (U) [Mass/Vol] 1+ Abnormal Negative [facility] Comment on above: Performed By: #### 1 8749520 ####[address] [address] [place].plasma/Lithiu m.RBC (Bld) [Mass ratio] 0-3 Normal 0-3 [facility] Comment on above: Performed By: #### 1 6797653 ####[facility] [address] [place] [address] Nitrite Ql (U) Negative Normal Negative [facility] Comment on above: Performed By: #### 1 7264822 ####[address] [address] pH (U) 8.5 [pH] Invalid Interpretation Code 5.0-9.0 [facility] Comment on above: Performed By: #### 1 0169167 ####[facility] [address] [place] [address] Protein (U) [Mass/Vol] 1+ Abnormal Negative [facility] Comment on above: Performed By: #### 1 4098587 ####[address] [place] [address] Specific gravity (U) [Rel density] 1.010 Invalid Interpretation Code 1.005-1.030 [facility] Comment on above: Performed By: #### 1 7257154 ####[address] [place] [address] Type of Urine collection method Clean Catch Normal [facility] Comment on above: Performed By: #### 1 2215128 ####[address] [address] Urobilinogen Qn (U) 0.2 {Patty'U}/dL Normal 0.0-1.0 [facility] Comment on above: Performed By: #### 1 8656694 ####[address] [address] WBC Auto Ql (U) Negative Normal Negative [facility] Comment on above: Performed By: #### 1 1046692 ####[address] [address] WBC LM.HPF (Urine sed) [#/Area] 0-5 Normal 0-5 [facility] Comment on above: Performed By: #### 1 7952015 ####[address] [address] Auto Diffon 12-23-2022 Basophils/100 WBC (Bld) 1.0 % Normal 0.0-2.0 [facility] Comment on above: Order Comment: Order Added by Discern Expert. Performed By: #### 2 698273, 40443609, 11366199, 7366039, 5156570, 6511554, 0909127, 3638097 ####[address] [address] Basophils/Leukocytes Auto (Bld) [Pure # fraction] 0.1 E9/L Normal 0.0-0.2 [facility] Comment on above: Order Comment: Order Added by Discern Expert. Performed By: #### 2 742604, 16697212, 32413187, 3764108, 5277484, 6917087, 1394243, 6327572 ####[facility] [address] [place] [address] Eosinophils/100 WBC (Bld) 0.2 % Normal 0.0-8.0 [facility] Comment on above: Order Comment: Order Added by Ke Expert. Performed By: #### 2 939897, 22130510, 72329811, 8583509, 8594716, 4918710, 7573107, 0213906 ####[address] [place] [address] Eosinophils/Leukocyte s Auto (Bld) [Pure # fraction] 0.0 E9/L Normal 0.0-0.5 [facility] Comment on above: Order Comment: Order Added by Discern Expert. Performed By: #### 2 993050, 33863199, 19804955, 0375209, 1107514, 5911896, 6527830, 8186545 ####[address] [address] Lymphocytes/100 WBC (Bld) 20.2 % Normal 14.0-50.0 [facility] Comment on above: Order Comment: Order Added by Ke Expert. Performed By: #### 2 010835, 75714767, 39184259, 6445238, 2090219, 4328175, 6433948, 1163880 ####[address] [address] Lymphocytes/Leukocyte s Auto (Bld) [Pure # fraction] 2.0 E9/L Normal 1.0-4.0 [facility] Comment on above: Order Comment: Order Added by Ke Expert. Performed By: #### 2 056195, 51025887, 29178639, 6756337, 0055155, 2073922, 0313752, 3529845 ####[address] [place] [address] Monocytes/100 WBC (Bld) 4.2 % Normal 4.0-14.0 [facility] Comment on above: Order Comment: Order Added by Ke Expert. Performed By: #### 2 085506, 35253910, 29832748, 1504952, 7824773, 7782278, 4280872, 4511278 ####[address] [address] Monocytes/Leukocytes Auto (Bld) [Pure # fraction] 0.4 E9/L Normal 0.2-1.0 [facility] Comment on above: Order Comment: Order Added by Discern Expert. Performed By: #### 2 214113, 44521574, 32342339, 3134482, 4363131, 6912333, 0071559, 6946954 ####[address] [place] [address] Neutrophils/100 WBC (Bld) 74.4 % Normal 36.0-75.0 [facility] Comment on above: Order Comment: Order Added by Discern Expert. Performed By: #### 2 689184, 87089353, 65171570, 4680498, 4000743, 5474886, 1762332, 9401540 ####[address] [address] Neutrophils/Leukocyte s Auto (Bld) [Pure # fraction] 7.3 E9/L Normal 2.0-7.5 [facility] Comment on above: Order Comment: Order Added by Discern Expert. Performed By: #### 2 071561, 07636750, 86757576, 7636381, 5063172, 2718776, 9938393, 3157768 ####[address] [address] B hCG Qualon 12-23-2022 Beta hCG Ql Negative Normal [facility] Comment on above: Performed By: #### 2 371237, 67819178, 55060849, 3852038, 4943600, 0397820, 0468626, 5561995 ####[facility] [address] [place] [address] BMPon 12-23-2022 Creatinine [Mass/Vol] 0.6 mg/dL Normal 0.5-1.3 [facility] Comment on above: Performed By: #### 2 067331, 24506932, 49619033, 9003660, 5716723, 7906994, 0491193, 7927646 ####[facility] [address] [place] [address] Urea nitrogen [Mass/Vol] 7 mg/dL Normal 5-21 [facility] Comment on above: Performed By: #### 2 790096, 09261476, 85813730, 2386305, 9447754, 7538027, 5653043, 2094308 ####[facility] [address] [place] [address] Urea nitrogen/Creatinine [Mass ratio] 12 No Units Normal 10-20 [facility] Comment on above: Performed By: #### 2 168853, 70461862, 42359172, 0084597, 7337772, 1982455, 0504019, 2387411 ####[facility] [address] [place] [address] Anion gap [Moles/Vol] 14 mmol/L Normal 6-16 [facility] Comment on above: Performed By: #### 2 305297, 80541936, 90847267, 9953163, 0626283, 6936743, 1258171, 1976646 ####[facility] [address] [place] [address] Calcium [Mass/Vol] 9.5 mg/dL Normal 8.9-11.1 [facility] Comment on above: Performed By: #### 2 338436, 24995435, 94993140, 3969716, 6776451, 9492186, 6269004, 8409444 ####[facility] [address] [place] [address] Chloride [Moles/Vol] 102 mmol/L Normal 101-111 [facility] Comment on above: Performed By: #### 2 879418, 71871270, 74662838, 1570936, 7772849, 1032098, 5344818, 5494775 ####[facility] [address] [place] [address] CO2 [Moles/Vol] 28 mmol/L Normal 21-31 [facility] Comment on above: Performed By: #### 2 191719, 20146799, 91523189, 6491811, 5805100, 5036469, 4662185, 7138392 ####[facility] [address] [place] [address] Glucose [Mass/Vol] 105 mg/dL Normal 55-199 [facility] Comment on above: Result Comment: If t his glucose result represents a fasting glucose, interpretation should refer to the following reference range: 55-99 mg/dL Performed By: #### 2 740847, 14194984, 05110365, 8874735, 3588765, 8030698, 1672645, 6625964 ####[facility] [address] [place] [address] Potassium [Moles/Vol] 3.1 mmol/L Low 3.5-5.3 [facility] Comment on above: Performed By: #### 2 629434, 07930507, 51510073, 2713805, 4480915, 9655666, 2711967, 9716511 ####[facility] [address] [place] [address] Sodium [Moles/Vol] 141 mmol/L Normal 135-145 [facility] Comment on above: Performed By: #### 2 620725, 26135017, 13830445, 1284698, 2755005, 8261854, 0038758, 7065740 ####[facility] [address] [place] [address] CBC w/ Auto Diffon 3 Erythrocyte distribution width (RBC) [Ratio] 13.6 % Normal 10.9-14.2 [facility] Comment on above: Performed By: #### 2 954796, 30647972, 27024920, 5342943, 4148936, 0965954, 7880942, 5143909 ####[facility] [address] [place] [address] Hematocrit (Bld) [Volume fraction] 47.1 % High 34.0-46.0 [facility] Comment on above: Performed By: #### 2 925847, 17351515, 37096117, 2011686, 6669755, 0311153, 3171271, 5298909 ####[facility] [address] [place] [address] Hemoglobin (Bld) [Mass/Vol] 16.6 g/dL High 12.0-16.0 [facility] Comment on above: Performed By: #### 2 299993, 46627695, 47694532, 0226010, 8697133, 4738915, 5872292, 4982428 ####[address] [place] [address] MCH (RBC) [Entitic mass] 34.9 pg High 27.0-34.0 [facility] Comment on above: Performed By: #### 2 179209, 46226070, 44261886, 8703949, 5739590, 6459951, 4291769, 6653100 ####[address] [address] MCHC (RBC) [Mass/Vol] 35.2 g/dL Normal 31.4-36.0 [facility] Comment on above: Performed By: #### 2 361858, 71225782, 19667519, 5303836, 3254643, 2077115, 1645286, 3887945 ####[address] [address] MCV (RBC) [Entitic vol] 99.1 fL Normal 80.0-100.0 [facility] Comment on above: Performed By: #### 2 516286, 52011689, 58109359, 7451797, 7931929, 3204735, 3432880, 0148608 ####[address] [place] [address] Platelet mean volume (Bld) [Entitic vol] 7.7 fL Normal 6.4-10.8 [facility] Comment on above: Performed By: #### 2 498203, 94220606, 57917795, 3583033, 2825174, 4007273, 3881671, 8876232 ####[address] [address] Platelets (Bld) [#/Vol] 294.0 E9/L Normal 150.0-500.0 [facility] Comment on above: Performed By: #### 2 778284, 63396758, 96100158, 9605589, 0643027, 9527448, 2873892, 8042355 ####[facility] [address] [place] [address] RBC (Bld) [#/Vol] 4.8 E12/L Normal 4.3-5.9 [facility] Comment on above: Performed By: #### 2 431006, 86660173, 17215392, 5131718, 9239449, 2956967, 8309429, 3298275 ####[facility] [address] [place] [address] WBC corrected for nucl RBC Auto (Bld) [#/Vol] 9.8 E9/L Normal 4.0-11.0 [facility] Comment on above: Performed By: #### 2 299571, 60243494, 62481536, 9730919, 9300185, 1039293, 3350271, 6555626 ####[facility] [address] [place] [address] CHEMISTRYOrdered By: SYSTEM SYSTEM on 12-23-2022 Amphetamines [...] 118 mL/min/1.73 m2 Normal >=59mL/min/ 1.73 m2 [facility] Chem S Globulin (S) [Mass/Vol] 3.2 g/dL [...] 7.8 g/dL Normal 6.0 - 7.8 gm/dL [facility] Sodium [Moles/Vol] 141 mmol/L Normal 135 - 145 mmol/L [facility] Urea nitrogen [Mass/Vol] 7 mg/dL Normal 5 - 21 mg/dL [facility] Urea nitrogen/Creatinine [Mass ratio] 12 mg/mg Normal 10 - 20 [facility] Consent for Treatmenton 12-04 Consent for Treatment [id number]:127 Normal [facility] ED Note-Nursingon 12-23-2022 ED Note-Nursing [...] is back on ED cart and on hall monitor. Normal [facility] HEMATOLOGYOrdered By: SYSTEM SYSTEM on 12-23-2022 Basophils/100 WBC (Bld) 1.0 % Normal 0.0 - 2.0 % [facility] HemeAutoSS Basophils/Leukocytes Auto (Bld) [Pure # fraction] 0.1 E9/L Normal 0.0 - 0.2 E9/L [facility] HemeAutoSS Eosinophils/100 WBC (Bld) 0.2 % Normal 0.0 - 8.0 % [facility] HemeAutoSS Eosinophils/Leukocyte s Auto (Bld) [Pure # fraction] 0.0 E9/L Normal 0.0 - 0.5 E9/L [facility] HemeAutoSS Lymphocytes/100 WBC (Bld) 20.2 % Normal 14.0 - 50.0 % [facility] HemeAutoSS Lymphocytes/Leukocyte s Auto (Bld) [Pure # fraction] 2.0 E9/L Normal 1.0 - 4.0 E9/L [facility] HemeAutoSS Monocytes/100 WBC (Bld) 4.2 % Normal 4.0 - 14.0 % [facility] HemeAutoSS Monocytes/Leukocytes Auto (Bld) [Pure # fraction] 0.4 E9/L Normal 0.2 - 1.0 E9/L [facility] HemeAutoSS Neutrophils/100 WBC (Bld) 74.4 % Normal 36.0 - 75.0 % [facility] HemeAutoSS Neutrophils/Leukocyte s Auto (Bld) [Pure # fraction] 7.3 E9/L [...] 9.8 E9/L Normal 4.0 - 11.0 E9/L [facility] HemeAutoSS Hep Func Panelon 12-23-2022 Albumin [Mass/Vol] 4.6 g/dL Normal 3.3-5.0 [facility] Comment on above: Performed By: #### 2 794419, 14165025, 22810634, 7293061, 3305923, 2467014, 7310801, 1289140 ####[facility] [address] [place] [address] Albumin/Globulin (S) [Mass conc ratio] 1.4 Normal 1.1-2.2 [facility] Comment on above: Performed By: #### 2 719856, 10095611, 41476516, 0269623, 9253433, 3989994, 5835576, 5725400 ####[facility] [address] [place] [address] ALP [Catalytic activity/Vol] 78 Int._Unit/L Normal 21-98 [facility] Comment on above: Performed By: #### 2 712172, 09516393, 58939617, 3923133, 0284995, 2002269, 5881069, 3422168 ####[address] [address] ALT No additional P-5'-P [Catalytic activity/Vol] 41 Int._Unit/L Normal 6-46 [facility] Comment on above: Performed By: #### 2 578832, 42137320, 87125968, 5638238, 8728088, 2961945, 3314598, 9240033 ####[address] [address] AST [Catalytic activity/Vol] 59 Int._Unit/L High 5-43 [facility] Comment on above: Performed By: #### 2 194492, 96588791, 24846364, 4683098, 1895657, 6777112, 4783533, 4997281 ####[address] [address] Bilirubin [Mass/Vol] 0.9 mg/dL Normal 0.0-1.1 [facility] Comment on above: Performed By: #### 2 772056, 53339966, 42443519, 0595260, 4629252, 8225245, 5037095, 7277890 ####[facility] [address] [place] [address] Bilirubin.direct [Mass/Vol] 0.1 mg/dL Normal 0.1-0.4 [facility] Comment on above: Performed By: #### 2 654532, 55278328, 23536890, 2773510, 2348008, 4206412, 5291560, [id number] ####[facility] [id number] [place] [address] Bilirubin.indirect [Mass or moles/Vol] 0.8 mg/dL Normal 0.1-0.9 [facility] Comment on above: Performed By: #### 2 [id number], [id number], [id number], 2484325, 5791383, 8246784, 0470603, [id number] ####[address] [place] [address] Globulin (S) [Mass/Vol] 3.2 g/dL Normal 1.4-4.0 [facility] Comment on above: Performed By: #### 2 485644, [id number], 51657552, 2885480, 7724177, 5329227, 3743764, [id number] ####[address] [place] [address] Protein [Mass/Vol] 7.8 g/dL Normal 6.0-7.8 [facility] Comment on above: Performed By: #### 2 170933, [id number], 72885239, 4351260, 5200003, 8311997, 0816020, 5567846 ####[address] [place] [address] Lipase Levelon 12-23-2022 Lipase [Catalytic activity/Vol] 32 U/L Normal 13-58 [facility] Comment on above: Performed By: #### 2 292024, [id number], [id number], 4361937, 7875812, 0037430, 4799608, 7469036 ####[address] [place] [address] Magnesiumon 12-23-2022 Magnesium [Mass/Vol] 2.2 mg/dL Normal 1.3-2.4 Fish er [facility] Comment on above: Performed By: #### 2 387337, [id number], 37656286, 3353083, 4524131, 1410413, 0077070, 5537589 ####[facility] [address] [place] [address] SEROLOGYOrdered By: Micky sebastian on 12-23-2022 Beta [...] Interpretation Code Negative [facility] UA Auto SS [place].plasma/Lithiu m.RBC (Bld) [Mass ratio] 0-3 /HPF Normal 0-3/HPF [...] [facility] UA Auto SS Urobilinogen Qn (U) 0.3691388 {Patty'U}/dL Normal 0.0 - 1.0 EU/dL [facility] UA Auto SS WBC Auto Ql (U) Negative (12/23/22 9:58 PM) Normal Negative [facility] UA Auto SS WBC LM.HPF (Urine sed) [#/Area] 0-5 /HPF Normal 0-5/HPF [facility] UA Auto SS eGFRon 12-23-2022 GFR/1.73 sq M.predicted among non-blacks MDRD (S/P/Bld) [Vol rate/Area] 118 mL/min/1.73 m2 Normal >=59 [facility] Comment on above: Order Comment: Order added by Discern Expert. Result Comment: Front End Engineer lanette kidney disease could be indicated at eGFR's of less than 60 mL/min/1.73m2. Kidney failure is indicated at less than 15 mL/min/1.73m2. Performed By: #### 2 [id number], [id number], 53653850, 7416300, 8541000, 7632937, 9350448, 1495570 ####[facility] [address] [place] [address] CHEMISTRYOrdered By: SYSTEM SYSTEM on 11-07-2022 Anion [...] Normal 0.0 - 8.0 % [facility] HemeAutoSS Eosinophils/Leukocyte s Auto (Bld) [Pure # fraction] 0.0 E9/L Normal 0.0 - 0.5 E9/L [facility] HemeAutoSS Lymphocytes/100 WBC (Bld) 25.0 % Normal 14.0 - 50.0 % [facility] HemeAutoSS Lymphocytes/Leukocyte s Auto (Bld) [Pure # fraction] 1.2 E9/L Normal 1.0 - 4.0 E9/L [facility] HemeAutoSS Monocytes/100 WBC (Bld) 9.6 % Normal 4.0 - 14.0 % [facility] HemeAutoSS Monocytes/Leukocytes Auto (Bld) [Pure # fraction] 0.5 E9/L Normal 0.2 - 1.0 E9/L [facility] HemeAutoSS Neutrophils/100 WBC (Bld) 65.0 % Normal 36.0 - 75.0 % [facility] HemeAutoSS Neutrophils/Leukocyte s Auto (Bld) [Pure # fraction] 3.2 E9/L [...] Normal 0.0 - 8.0 % [facility] HemeAutoSS Eosinophils/Leukocyte s Auto (Bld) [Pure # fraction] 0.0 E9/L Normal 0.0 - 0.5 E9/L [facility] HemeAutoSS Lymphocytes/100 WBC (Bld) 4.2 % Low 14.0 - 50.0 % [facility] HemeAutoSS Lymphocytes/Leukocyte s Auto (Bld) [Pure # fraction] 0.5 E9/L Low 1.0 - 4.0 E9/L [facility] HemeAutoSS Monocytes/100 WBC (Bld) 3.1 % Low 4.0 - 14.0 % [facility] HemeAutoSS Monocytes/Leukocytes Auto (Bld) [Pure # fraction] 0.3 E9/L Normal 0.2 - 1.0 E9/L [facility] HemeAutoSS Neutrophils/100 WBC (Bld) 92.5 % High 36.0 - 75.0 % [facility] HemeAutoSS Neutrophils/Leukocyte s Auto (Bld) [Pure # fraction] 10.2 E9/L [...] Interpretation Code Negative [facility] UA Auto SS [place].plasma/Lithiu m.RBC (Bld) [Mass ratio] 0-3 /HPF Normal 0-3/HPF [...] Desc Clean Catch (11/06/22 5:23 PM) Normal [facility] UA Auto SS Urobilinogen Qn (U) 0.3269391 {Patty'U}/dL Normal 0.0 - 1.0 EU/dL [facility] UA Auto SS WBC Auto Ql (U) Negative (11/06/22 5:23 PM) Normal Negative [facility] UA Auto SS WBC LM.HPF (Urine sed) [#/Area] 0-5 /HPF Normal 0-5/HPF [facility] UA Auto SS CHEMISTRYOrdered By: SYSTEM SYSTEM [...] rate/Area] mL/min/1.73 m2 Normal >=59mL/min/ 1.73 m2 [facility] Chem S Globulin (S) [Mass/Vol] 2.9 g/dL Normal 1.4 - 4.0 gm/dL FT Remisol Glucose [Mass/Vol] 84 mg/dL Normal 55 [...] 14.3 % High 10.9 - 14.2 % [facility] HemeAutoSS Hematocrit (Bld) [Volume fraction] 44.9 % [...] Normal 0.0 - 8.0 % [facility] HemeAutoSS Eosinophils/Leukocyte s Auto (Bld) [Pure # fraction] 0.1 E9/L Normal 0.0 - 0.5 E9/L [facility]eAutoSS Lymphocytes/100 WBC (Bld) 20.3 % Normal 14.0 - 50.0 % [facility]eAutoSS Lymphocytes/Leukocyte s Auto (Bld) [Pure # fraction] 2.9 E9/L Normal 1.0 - 4.0 E9/L [facility] HemeAutoSS Monocytes/100 WBC (Bld) 4.5 % Normal 4.0 - 14.0 % [facility]eAutoSS Monocytes/Leukocytes Auto (Bld) [Pure # fraction] 0.6 E9/L Normal 0.2 - 1.0 E9/L [facility]eAutoSS Neutrophils/100 WBC (Bld) 73.9 % Normal 36.0 - 75.0 % [facility]eAutoSS Neutrophils/Leukocyte s Auto (Bld) [Pure # fraction] 10.5 E9/L [...] - 11.0 E9/L [facility]AutoSS [facility] SARS-CoV-2 (COVID-19) RNA SAMAN+probe Ql (Unsp spec) Not detected Normal NOT DETECTED [facility] Comment on above: Result Comment: This test is not yet approved or cleared by the [place] FDA. When there are no FDA-approved or cleared tests available, and other criteria are met, FDA can make tests available under an emergency access mechanism called an Emergency Use Authorization (EUA). The EUA for this test is supported by the [place] of Health and Human Service's (HHS's) declaration [...] with SARS-CoV-2. Performed By: #### C MP, CMA #### [facility] [address] [place] [address] Dr. Kingsley Bautista INFLUENZA A AND B [facility] 05-18 [facility] SEE BELOW Normal [facility] Comment on above: Result Comment: Nega tive for Flu A protein angiten. Infection due to Flu A cannot be ruled out. Flu A angiten in the sample may be below the detection limit of the test. Performed By: #### I NFLUAB #### [facility] [address] [place] [address] Dr. Kingsley [facility]aut[facility] SEE BELOW Normal [facility] Comment on above: Result Comment: Nega tive for Flu B protein antigen. Infection due to Flu B cannot be ruled out. Flu B antigen in the sample may be below the detection limit of the test. Performed By: #### I NFLUAB #### [facility] [address] [place] [address] Dr. Kingsley Bautista INFLUENZA A AG Negative Normal NEGATIVE SEE COMMENT [facility] Comment on above: Performed By: #### I NFLUAB #### [facility] [address] [place] [address] Dr. Kingsley Bautista INFLUENZA B AG Negative Normal NEGATIVE SEE COMMENT [facility] Comment on above: Performed By: #### I NFLUAB #### [facility] [address] [address] [address] Kingsley Bautista INTERNAL CONTROLS Within Normal Limits Normal Wi thin Normal Limits [facility] Comment on above: Performed By: #### I NFLUAB #### [facility] [address] [place] [address] Dr. Kingsley Bautista GI PANEL (PCR)on 01-13-2022 Adenovirus F 40/41 Not detected Normal NOT DETECTED [facility] Comment on above: Performed By: #### G IPANEL #### [facility] [address] [place] [address] Dr. Kingsley Bautista Astrovirus Not detected Normal NOT DETECTED [facility] Comment on above: Performed By: #### G IPANEL #### [facility] [address] [place] [address] Dr. Kingsley Bautista C. Diff toxin A/B Detected Critically abnormal NOT DETECTED [facility] Comment on above: Performed By: #### G IPANEL #### [facility] [address] [place] [address] Dr. Kingsley Bautista Campylobacter Not detected Normal NOT DETECTED [facility] Comment on above: Performed By: #### G IPANEL #### [facility] [address] [place] [address] Dr. Kingsley Bautista Cryptosporidium Not detected Normal NOT DETECTED [facility] Comment on above: Performed By: #### G IPANEL #### [facility] [address] [place] [address] Dr. Kingsley Bautista Cyclos. Cayetanensis Not detected Normal NOT DETECTED [facility] Comment on above: Performed By: #### G IPANEL #### [facility] [address] [place] [address] Dr. Kingsley Bautista E. Coli O157 Not Applicable Normal Not Applicable [facility] Comment on above: Performed By: #### G IPANEL #### [facility] [address] [place] [address] Dr. Kingsley Bautista E. histolytica Not detected Normal NOT DETECTED [facility] Comment on above: Performed By: #### G IPANEL #### [facility] [address] [place] [address] Dr. Kingsley Bautista EAEC Not detected Normal NOT DETECTED [facility] Comment on above: Performed By: #### G IPANEL #### [facility] [address] [place] [address] Dr. Kingsley Bautista EIEC Not detected Normal NOT DETECTED [facility] Comment on above: Performed By: #### G IPANEL #### [facility] [address] [place] [address] Dr. Kingsley Bautista EPEC Not detected Normal NOT DETECTED [facility] Comment on above: Performed By: #### G IPANEL #### [facility] [address] [place] [address] Dr. Kingsley Bautista ETEC Not detected Normal NOT DETECTED [facility] Comment on above: Performed By: #### G IPANEL #### [facility] [address] [place] [address] Dr. Kingsley Watson Lamblia Not detected Normal NOT DETECTED [facility] Comment on above: Performed By: #### G IPANEL #### [facility] [address] [place] [address] Dr. Kingsley ALTAMIRANO CONTROLS PASSED Normal [facility] Comment on above: Performed By: #### G IPANEL #### [facility] [address] [place] [address] Dr. Kingsley [facility]ENZO [facility] HEADER GI PANEL BACTERIA Normal T [facility] Comment on above: Performed By: #### G IPANEL #### [facility] [address] [place] [address] Dr. Kingsley GILLESPIE ECOLI GI PANEL DIARRHEAGEN IC E.COLI / SHIGELLA Normal [facility] Comment on above: Performed By: #### G IPANEL #### [facility] [address] [place] [address] Dr. Kingsley GILLESPIE INFO SEE BELOW Normal [facility] Comment on above: Result Comment: EAEC - Enteroaggregative E. Coli EPEC- Enteropathogenic E. Coli ETEC- Enterotoxigenic E. Coli lt/st STEC- Shigella-like toxin-producing E. Coli stx1/stx2 EIEC- Shigella/Enteroinvasive E. Coli Performed By: #### G IPANEL #### [facility] [address] [place] [address] Dr. Kingsley GILLESPIE PARASITES GI PANEL PARASITES Normal [facility] Comment on above: Performed By: #### G IPANEL #### [facility] [address] [place] [address] Dr. Kingsley GILLESPIE VIRUS GI PANEL VIRUSES Normal [facility] Comment on above: Performed By: #### G IPANEL #### [facility] [address] [place] [address] Dr. Kingsley Bautista Norovirus GI/GII Not detected Normal NOT DETECTED [facility] Comment on above: Performed By: #### G IPANEL #### [facility] [address] [place] [address] Dr. Kingsley Bautista P. Shigelloides Not detected Normal NOT DETECTED [facility] Comment on above: Performed By: #### G IPANEL #### [facility] [address] [place] [address] Dr. Kingsley Bautista Rotavirus A Not detected Normal NOT DETECTED [facility] Comment on above: Performed By: #### G IPANEL #### [facility] [address] [place] [address] Dr. Kingsley Bautista Salmonella Not detected Normal NOT DETECTED [facility] Comment on above: Performed By: #### G IPANEL #### [facility] [address] [place] [address] Dr. Kingsley Bautista Sapovirus Not detected Normal NOT DETECTED [facility] Comment on above: Performed By: #### G IPANEL #### [facility] [address] [place] [address] Dr. Kingsley Bautista STEC Not detected Normal NOT DETECTED [facility] Comment on above: Performed By: #### G IPANEL #### [facility] [address] [place] [address] Dr. Kingsley Bautista Vibrio Not detected Normal NOT DETECTED [facility] Comment on above: Performed By: #### G IPANEL #### [facility] [address] [address] [address] Kingsley Bautista Vibrio Cholera Not detected Normal NOT DETECTED [facility] Comment on above: Performed By: #### G IPANEL #### [facility] [address] [address] [address] Kingsley Bautista Y. Enterocolitica Not detected Normal NOT DETECTED [facility] Comment on above: Performed By: #### G IPANEL #### [facility] [address] [address] [address] Kingsley Bautista CHEMISTRYOrdered By: SYSTEM SYSTEM [...] 0.8 mg/dL Normal 0.5 - 1.3 mg/dL [facility] Remisol GFR/1.73 sq M.predicted among blacks MDRD (S/P/Bld) [Vol rate/Area] mL/min/1.73 m2 Normal >=59mL/min/ 1.73 m2 [facility] Chem S GFR/1.73 sq M.predicted among non-blacks MDRD (S/P/Bld) [Vol rate/Area] mL/min/1.73 m2 Normal >=59mL/min/ 1.73 m2 [facility] Chem S Globulin (S) [Mass/Vol] 2.9 g/dL Normal 1.4 - 4.0 gm/dL [facility] Remisol Glucose [Mass/Vol] 105 mg/dL Normal 55 - 199 mg/dL [facility] Lipase [Catalytic activity/Vol] 37 U/L Normal 13 - 58 unit/L [facility] Magnesium [Mass/Vol] 1.2 mg/dL Low 1.3 - 2 .4 mg/dL [facility] Potassium [Moles/Vol] 3.0 mmol/L Low 3.5 - 5.3 mmol/L [facility] Protein [Mass/Vol] 7.3 g/dL Normal 6.0 - 7.8 gm/dL [facility] Remisol Sodium [Moles/Vol] 137 mmol/L Normal 135 - 145 mmol/L [facility] Remisol Urea nitrogen [Mass/Vol] 7 mg/dL Normal 5 - 21 mg/dL [facility] Urea nitrogen/Creatinine [Mass ratio] 9 mg/mg Low 10 - 20 [facility] HEMATOLOGYOrdered By: Genoveva Lorenzo on 01-12-2022 Anisocytosis Ql (Bld) Present (01/12/22 10:03 AM) Normal [facility] HemeManSS Erythrocyte distribution width (RBC) [Ratio] 21.1 [...] [Interp] See Morphology (01/12/22 10:03 AM) Normal [facility] HemeManSS Platelet mean volume (Bld) [Entitic vol] [...] Normal 0.0 - 8.0 % [facility]eAutoSS Eosinophils/Leukocyte s Auto (Bld) [Pure # fraction] 0.0 E9/L Normal 0.0 - 0.5 E9/L [facility]eAuto[facility] Lymphocytes/100 WBC (Bld) 17.8 % Normal 14.0 - 50.0 % [facility]eAutoSS Lymphocytes/Leukocyte s Auto (Bld) [Pure # fraction] 1.3 E9/L Normal 1.0 - 4.0 E9/L [facility]eAutoSS Monocytes/100 WBC (Bld) 7.4 % Normal 4.0 - 14.0 % [facility]eAutoSS Monocytes/Leukocytes Auto (Bld) [Pure # fraction] 0.5 E9/L Normal 0.2 - 1.0 E9/L [facility] HemeAutoSS Neutrophils/100 WBC (Bld) 74.3 % Normal 36.0 - 75.0 % [facility]eAutoSS Neutrophils/Leukocyte s Auto (Bld) [Pure # fraction] 5.4 E9/L Normal 2.0 - 7.5 E9/L [facility] HemeAutoSS HEMATOLOGYOrdered By: Kingsley Bautista on 01-12-2022 Path Review No significant morphological abnormalities identified.CPT [id number] Invalid Interpretation Code [facility] HemeManSS SEROLOGYOrdered By: Virginia tomas on 01-12-2022 Beta hCG Ql Negative (01/12/22 10:03 AM) Normal [facility] Man Sero URINALYSISOrdered By: Virginia Aguirre on [...] PM) Normal Negative [facility] UA Auto SS [place].plasma/Lithiu m.RBC (Bld) [Mass ratio] 0-3 /HPF Normal 0-3/HPF [...] PM) Invalid Interpretation Code 1.005 - 1.030 [facility] UA Auto SS UA Spec Desc Clean Catch (01/12/22 1:10 PM) Normal [facility] UA Auto SS Urobilinogen Qn (U) 0.2396038 {Patty'U}/dL Normal 0.0 - 1.0 EU/dL [facility] UA Auto SS WBC Auto Ql (U) Negative (01/12/22 1:10 PM) Normal Negative [facility] UA Auto SS WBC LM.HPF (Urine sed) [#/Area] 0-5 /HPF Normal 0-5/HPF [facility] UA Auto SS NM STRESS/REST MULTIon 12-30 NM STRESS/REST MULTI Patient: LADI BYERS Exam Date: 12/30/2021 : 1985 Gender:F Ordering : TERESA PATEL [facility] Admission #: [id number] Family : Order #: [id number] CLICK HERE TO VIEW EXAM RADIOLOGY REPORT [...] MD on 12/30/2021 at 15:36 Normal [facility] CBC AUTO DIFFon 12-29-2021 BASO # 0.0 103/ul Normal 0.0-0.1 [facility] Comment on above: Performed By: #### C DAVY, HERMANDM #### [facility] [address] [place] [address] Dr. Kingsley Bautista Basophils/100 WBC (Bld) 0.3 % Normal 0.2-2.0 [facility] Comment on above: Performed By: #### C DAVY, CMADM #### [facility] [address] [place] [address] Dr. Kingsley Bautista EO # 0.0 103/ul Normal 0.0-0.7 [facility] Comment on above: Performed By: #### C DAVY, HERMANDM #### [facility] [address] [place] [address] Dr. Kingsley Bautista Eosinophils/100 WBC (Bld) 0.1 % Critically low 0.9-7.0 [facility] Comment on above: Performed By: #### C DAVY, HERMANDM #### [facility] [address] [place] [address] Dr. Kingsley Bautista Erythrocyte distribution width (RBC) [Ratio] 17.1 % Critically high 11.0-15.0 [facility] Comment on above: Performed By: #### C DAVY, HERMANDM #### [facility] [address] [place] [address] Dr. Kingsley Bautista Hematocrit (Bld) [Volume fraction] 44.6 % Normal 36.0-48.0 [facility] Comment on above: Performed By: #### C DAVY, CMADM #### [facility] [address] [place] [address] Dr. Kingsley Bautista Hemoglobin (Bld) [Mass/Vol] 15.1 g/dL Normal 12.0-16.0 [facility] Comment on above: Performed By: #### C DAVY, CMADM #### [facility] [address] [place] [address] Dr. Kingsley Bautista IG # 0.02 10e3/ul Normal 0.00-0.03 [facility] Comment on above: Performed By: #### C MP, CMADM #### [facility] [address] [address] [address] Kingsley Bautista IG % 0.3 % Normal 0.0-0.5 [facility] Comment on above: Performed By: #### C MP, CMADM #### [facility] [address] [address] [address] Kingsley Bautista LYMPH # 1.9 103/ul Normal 1.2-3.8 [facility] Comment on above: Performed By: #### C MP, CMADM #### [facility] [address] [address] [address] Kingsley Bautista Lymphocytes/100 WBC (Bld) 26.1 % Normal 20.5-60.0 [facility] Comment on above: Performed By: #### C MP, CMADM #### [facility] [address] [address] [address] Kingsley Bautista MANUAL DIFF REQ NO Normal [facility] Comment on above: Performed By: #### C MP, CMADM #### [facility] [address] [address] [address] Kingsley Bautista MCH (RBC) [Entitic mass] 31.0 pg Normal 26.7-34.0 [facility] Comment on above: Performed By: #### C MP, CMADM #### [facility] [address] [address] [address] Kingsley Bautista MCHC (RBC) [Mass/Vol] 33.9 g/dL Normal 29.9-35.2 [facility] Comment on above: Performed By: #### C MP, CMADM #### [facility] [address] [address] [address] Kingsley Bautista MCV (RBC) [Entitic vol] 91.6 fL Normal 81.0-99.0 [facility] Comment on above: Performed By: #### C MP, CMADM #### [facility] [address] [address] [address] Kingsley Bautista MONO # 0.5 103/ul Normal 0.3-0.8 [facility] Comment on above: Performed By: #### C MP, CMADM #### [facility] [address] [place] [address] Dr. Kingsley Bautista Monocytes/100 WBC (Bld) 6.5 % Normal 1.7-12.0 [facility] Comment on above: Performed By: #### C DAVY, CMADM #### [facility] [address] [place] [address] Dr. Kingsley Bautista NEUT # 4.8 103/ul Normal 1.4-6.5 [facility] Comment on above: Performed By: #### C DAVY, CMADM #### [facility] [address] [place] [address] Dr. Kingsley Bautista Neutrophils/100 WBC (Bld) 66.7 % Normal 43.0-75.0 [facility] Comment on above: Performed By: #### C DAVY, HERMANDM #### [facility] [address] [place] [address] Dr. Kingsley Bautista Platelet mean volume (Bld) [Entitic vol] 8.9 fL Critically low 9.5-13.5 [facility] Comment on above: Performed By: #### C DAVY, HERMANDM #### [facility] [address] [place] [address] Dr. Kingsley Bautista PLT 263 103/ul Normal 150-450 [facility] Comment on above: Performed By: #### C DAVY, CMADM #### [facility] [address] [place] [address] Dr. Kingsley Bautista RBC 4.87 106/ul Normal 4.20-5.40 [facility] Comment on above: Performed By: #### C DAVY, CMADM #### [facility] [address] [place] [address] Dr. Kingsley Bautista WBC 7.2 103/ul Normal 4.0-11.0 [facility] Comment on above: Performed By: #### C DAVY, CMADM #### [facility] [address] [place] [address] Dr. Kingsley Bautista LIPASEon 12-29-2021 Lipase [Catalytic activity/Vol] 142.0 U/L Normal 73.0-393.0 [facility] Comment on above: Performed By: #### E , BMP #### [facility] [address] [place] [address] Dr. Kingsley Bautista PROF 14(COMP METB)on 022 Albumin [Mass/Vol] 4.1 g/dL Normal 3.4-5.0 [facility] Comment on above: Performed By: #### E , BMP #### [facility] [address] [place] [address] Dr. Kingsley Bautista Albumin/Globulin [Mass ratio] 1.1 {ratio} Normal [facility] Comment on above: Performed By: #### E , BMP #### [facility] [address] [place] [address] Dr. Kingsley Bautista ALP [Catalytic activity/Vol] 109 U/L Normal 46-116 [facility] Comment on above: Performed By: #### E , BMP #### [facility] [address] [place] [address] Dr. Kingsley Bautista ALT [Catalytic activity/Vol] 92 U/L Critically high 14-59 [facility] Comment on above: Performed By: #### E , BMP #### [facility] [address] [place] [address] Dr. Kingsley Bautista Anion gap [Moles/Vol] 17.4 mmol/L Normal [facility] Comment on above: Performed By: #### E , BMP #### [facility] [address] [place] [address] Dr. Kingsley Bautista AST [Catalytic activity/Vol] 123 U/L Critically high 15-37 [facility] Comment on above: Performed By: #### E , BMP #### [facility] [address] [place] [address] Dr. Kingsley Bautista Bilirubin [Mass/Vol] 1.2 mg/dL Critically high 0.2-1.0 [facility] Comment on above: Performed By: #### E , BMP #### [facility] [address] [place] [address] Dr. Kingsley Bautista Calcium [Mass/Vol] 9.3 mg/dL Normal 8.5-10.1 [facility] Comment on above: Performed By: #### E , BMP #### [facility] [address] [place] [address] Dr. Kingsley Bautista Chloride [Moles/Vol] 105 mmol/L Normal 98-107 [facility] Comment on above: Performed By: #### E , BMP #### [facility] [address] [place] [address] Dr. Kingsley Bautista CO2 [Moles/Vol] 22.1 mmol/L Normal 21.0-32.0 [facility] Comment on above: Performed By: #### E , BMP #### [facility] [address] [place] [address] Dr. Kingsley Bautista Creatinine [Mass/Vol] 0.67 mg/dL Normal 0.55-1.02 [facility] Comment on above: Performed By: #### E , BMP #### [facility] [address] [place] [address] Dr. Kingsley Bautista EGFR-AF CITIZEN OF [place] >=60 Normal >=60 [facility] Comment on above: Performed By: #### E , BMP #### [facility] [address] [place] [address] Dr. Kingsley Bautista EGFR-NON AF CITIZEN OF [place] >=60 Normal >=60 [facility] Comment on above: Performed By: #### E , BMP #### [facility] [address] [place] [address] Dr. Kingsley Bautista Globulin (S) [Mass/Vol] 3.8 g/dL Normal [facility] Comment on above: Performed By: #### E , BMP #### [facility] [address] [place] [address] Dr. Kingsley Bautista Glucose [Mass/Vol] 101 mg/dL Normal 74-106 [facility] Comment on above: Performed By: #### E , BMP #### [facility] [address] [place] [address] Dr. Kingsley Bautista Potassium [Moles/Vol] 3.5 mmol/L Normal 3.5-5.1 [facility] Comment on above: Performed By: #### E TH, BMP #### [facility] [address] [address] [address] Kingsley Bautista Protein [Mass/Vol] 7.9 g/dL Normal 6.4-8.2 [facility] Comment on above: Performed By: #### E TH, BMP #### [facility] [address] [address] [address] Kingsley Bautista Sodium [Moles/Vol] 141 mmol/L Normal 136-145 [facility] Comment on above: Performed By: #### E TH, BMP #### [facility] [address] [place] [address] Dr. Kingsley Bautista Urea nitrogen [Mass/Vol] 6.0 mg/dL Critically low 7.0-18.0 [facility] Comment on above: Performed By: #### E , BMP #### [facility] [address] [place] [address] Dr. Kingsley Bautista Urea nitrogen/Creatinine [Mass ratio] 9.0 mg/mg Normal [facility] Comment on above: Performed By: #### E , BMP #### [facility] [address] [place] [address] Dr. iKngsley Bautista TROPONIN, HIGH SENSITIVITYon 12-29-2021 HSTROP 4.5 pg/mL Normal 4.0-51.3 [facility] Comment on above: Result Comment: CUT- OFF POINTS HAVE BEEN ESTABLISHED BASED ON THE FOURTH UNIVERSAL DEFINITIONS OF MYOCARDIAL INFARCTION. THE UPPER REFERENCE LIMIT (URL) OF TROPONIN, DEFINED THE 99TH PERCENTILE OF cTnI DISTRIBUTION IN A REFERENCE POPULATION, HAS BEEN CONFIRMED THE DECISION THRESHOLD FOR IA DIAGNOSIS. Performed By: #### E , BMP #### [facility] [address] [place] [address] Dr. Kingsley Bautista XR CHEST 2 Von [...] by: NELL LUNDBERG Date: 2021-12-29 09:43 Normal [facility] CHEMISTRYOrdered By: SYSTEM SYSTEM on 10-14-2021 Anion gap [Moles/Vol] 9 mmol/L Normal 6 - 16 mEq/L [facility] Remisol Calcium [Mass/Vol] 8.4 mg/dL Low 8.9 [...] rate/Area] mL/min/1.73 m2 Normal >=59mL/min/ 1.73 m2 [facility] Chem S GFR/1.73 sq M.predicted among non-blacks MDRD (S/P/Bld) [Vol rate/Area] mL/min/1.73 m2 Normal >=59mL/min/ 1.73 m2 [facility] Chem S Glucose [Mass/Vol] 96 mg/dL Normal [...] Normal 0.0 - 8.0 % [facility]eAutoSS Eosinophils/Leukocyte s Auto (Bld) [Pure # fraction] 0.0 E9/L Normal 0.0 - 0.5 E9/L [facility] Lymphocytes/100 WBC (Bld) 18.3 % Normal 14.0 - 50.0 % [facility] Lymphocytes/Leukocyte s Auto (Bld) [Pure # fraction] 1.5 E9/L Normal 1.0 - 4.0 E9/L [facility] Monocytes/100 WBC (Bld) 6.4 % Normal 4.0 - 14.0 % [facility] Monocytes/Leukocytes Auto (Bld) [Pure # fraction] 0.5 E9/L Normal 0.2 - 1.0 E9/L [facility] Neutrophils/100 WBC (Bld) 74.8 % Normal 36.0 - 75.0 % [facility] Neutrophils/Leukocyte s Auto (Bld) [Pure # fraction] 6.0 E9/L [...] 10-13-2021 ABO/Rh Interp Positive Invalid Interpretation Code [facility] BB Subsection BLOOD BANKOrdered By: Archie Hackett [...] rate/Area] mL/min/1.73 m2 Normal >=59mL/min/ 1.73 m2 [facility] Chem S GFR/1.73 sq M.predicted among non-blacks MDRD (S/P/Bld) [Vol rate/Area] mL/min/1.73 m2 Normal >=59mL/min/ 1.73 m2 [facility] Chem S Globulin (S) [Mass/Vol] 3.2 g/dL Normal 1.4 - 4.0 gm/dL [facility] Remisol Glucose [Mass/Vol] 116 mg/dL Normal 55 [...] Normal 0.0 - 8.0 % [facility] Eosinophils/Leukocyte s Auto (Bld) [Pure # fraction] 0.0 E9/L Normal 0.0 - 0.5 E9/L [facility] Lymphocytes/100 WBC (Bld) 26.2 % Normal 14.0 - 50.0 % [facility] Lymphocytes/Leukocyte s Auto (Bld) [Pure # fraction] 2.9 E9/L Normal 1.0 - 4.0 E9/L [facility] Monocytes/100 WBC (Bld) 8.3 % Normal 4.0 - 14.0 % [facility] Monocytes/Leukocytes Auto (Bld) [Pure # fraction] 0.9 E9/L Normal 0.2 - 1.0 E9/L [facility] Neutrophils/100 WBC (Bld) 64.5 % Normal 36.0 - 75.0 % [facility] Neutrophils/Leukocyte s Auto (Bld) [Pure # fraction] 7.1 E9/L Normal 2.0 - 7.5 E9/L [facility] HEMATOLOGYOrdered By: Neli rose on 10-13-2021 Erythrocyte distribution width (RBC) [Ratio] 16.0 % High 10.9 - 14.2 % [facility] Hematocrit (Bld) [Volume fraction] 44.7 % Normal 34.0 - 46.0 % [facility] [...] rate/Area] mL/min/1.73 m2 Normal >=59mL/min/ 1.73 m2 [facility] Chem S GFR/1.73 sq M.predicted among non-blacks MDRD (S/P/Bld) [Vol rate/Area] mL/min/1.73 m2 Normal >=59mL/min/ 1.73 m2 [facility] Chem S Glucose [Mass/Vol] 82 mg/dL Normal 55 - 199 mg/dL [facility] Remisol Potassium [Moles/Vol] 3.5 mmol/L Normal 3.5 - 5.3 mmol/L [facility] Remisol Sodium [Moles/Vol] 141 mmol/L Normal 135 - 145 mmol/L [facility] Remisol Urea nitrogen [Mass/Vol] mg/dL Normal 5 - 21 mg/dL [facility] Remisol Urea nitrogen/Creatinine [Mass ratio] Unable to [...] Normal 0.0 - 8.0 % [facility]eAuto[facility] Eosinophils/Leukocyte s Auto (Bld) [Pure # fraction] 0.0 E9/L Normal 0.0 - 0.5 E9/L [facility] Lymphocytes/100 WBC (Bld) 25.6 % Normal 14.0 - 50.0 % [facility] Lymphocytes/Leukocyte s Auto (Bld) [Pure # fraction] 1.9 E9/L Normal 1.0 - 4.0 E9/L [facility] Monocytes/100 WBC (Bld) 5.8 % Normal 4.0 - 14.0 % [facility] Monocytes/Leukocytes Auto (Bld) [Pure # fraction] 0.4 E9/L Normal 0.2 - 1.0 E9/L [facility] Neutrophils/100 WBC (Bld) 68.0 % Normal 36.0 - 75.0 % [facility] Neutrophils/Leukocyte s Auto (Bld) [Pure # fraction] 5.2 E9/L [...] 7.6 E9/L Normal 4.0 - 11.0 E9/L [facility] HemeAutoSS Reference Laboratory Testing Ordered By: Generated DomainUser on 10-10-2021 Gastrin [Mass/Vol] 150 pg/mL High 0-115pg/mL [facility]Outs[facility] Comment on above: Result Comment: Siem Immulite 2000 Immunochemiluminometric assay (ICMA) Values obtained with different assay methods or kits cannot be used interchangeably. Results cannot be interpreted as absolute evidence of the presence or absence of malignant disease. Performed at: [facility] [id number] MD Yash Lewis BLOOD BANKOrdered By: Jules Torres on 10-09-2021 ABO/Rh Interp Positive Invalid Interpretation Code [facility] BB Subsection ABSC Gel Interp Negative (10/09/21 2:03 PM) Normal [facility] BB Subsection CHEMISTRYOrdered By: SYSTEM SYSTEM on [...] rate/Area] mL/min/1.73 m2 Normal >=59mL/min/ 1.73 m2 [facility] Chem S Glucose [Mass/Vol] 93 mg/dL Normal 55 - 199 mg/dL [facility] Remisol Magnesium [Mass/Vol] 1.3 mg/dL Normal 1.3 - 2 .4 mg/dL [facility] Remisol Sodium [Moles/Vol] 137 mmol/L Normal [...] rate/Area] mL/min/1.73 m2 Normal >=59mL/min/ 1.73 m2 [facility] Chem S GFR/1.73 sq M.predicted among non-blacks MDRD (S/P/Bld) [Vol rate/Area] mL/min/1.73 m2 Normal >=59mL/min/ 1.73 m2 [facility] Chem S Globulin (S) [Mass/Vol] 2.9 g/dL [...] Normal 0.0 - 8.0 % [facility]eAuto[facility] Eosinophils/Leukocyte s Auto (Bld) [Pure # fraction] 0.0 E9/L Normal 0.0 - 0.5 E9/L [facility] Lymphocytes/100 WBC (Bld) 27.9 % Normal 14.0 - 50.0 % [facility]Auto[facility] Lymphocytes/Leukocyte s Auto (Bld) [Pure # fraction] 2.5 E9/L Normal 1.0 - 4.0 E9/L [facility] Monocytes/100 WBC (Bld) 6.4 % Normal 4.0 - 14.0 % [facility] Monocytes/Leukocytes Auto (Bld) [Pure # fraction] 0.6 E9/L Normal 0.2 - 1.0 E9/L [facility] Neutrophils/100 WBC (Bld) 65.1 % Normal 36.0 - 75.0 % [facility] Neutrophils/Leukocyte s Auto (Bld) [Pure # fraction] 5.8 E9/L Normal 2.0 - 7.5 E9/L [facility] Basophils/100 WBC (Bld) 0.7 % Normal 0.0 - 2.0 % [facility] Basophils/Leukocytes Auto (Bld) [Pure # fraction] 0.1 E9/L Normal 0.0 - 0.2 E9/L [facility] Eosinophils/100 WBC (Bld) 0.3 % Normal 0.0 - 8.0 % [facility] Eosinophils/Leukocyte s Auto (Bld) [Pure # fraction] 0.0 E9/L Normal 0.0 - 0.5 E9/L [facility] Lymphocytes/100 WBC (Bld) 20.2 % Normal 14.0 - 50.0 % [facility] Lymphocytes/Leukocyte s Auto (Bld) [Pure # fraction] 2.0 E9/L Normal 1.0 - 4.0 E9/L [facility] Monocytes/100 WBC (Bld) 7.3 % Normal 4.0 - 14.0 % [facility] Monocytes/Leukocytes Auto (Bld) [Pure # fraction] 0.7 E9/L Normal 0.2 - 1.0 E9/L [facility] Neutrophils/100 WBC (Bld) 71.5 % Normal 36.0 - 75.0 % [facility] Neutrophils/Leukocyte s Auto (Bld) [Pure # fraction] 6.9 E9/L [...] 3.8 E12/L Low 4.3 - 5.9 E12/L [facility] HemeAutoSS WBC corrected for nucl RBC Auto (Bld) [#/Vol] 9.7 E9/L Normal 4.0 - 11.0 E9/L [facility] HemeAutoSS Reference Laboratory Testing Ordered By: Malorie DomainUser on 10-09-2021 Calprotectin (Stl) [Mass/Mass] 19 ug/g Invalid Interpretation Code 0-120mcg/gm [facility] Comment on above: Result Comment: Conc entration Interpretation Follow-Up <16 - 50 ug/g Normal None >50 -120 ug/g Borderline Re-evaluate in 4-6 weeks >120 ug/g Abnormal Repeat as clinically indicated Performed at: [facility] [id number] MD Yash Lewis [facility]on SARS-CoV-2 (COVID-19) RNA SAMAN+probe Ql (Unsp spec) Not detected Normal NOT DETECTED [facility] Comment on above: Result Comment: This test is not yet approved or cleared by the [place] FDA. When there are no FDA-approved or cleared tests available, and other criteria are met, FDA can make tests available under an emergency access mechanism called an Emergency Use Authorization (EUA). The EUA for this test is supported by the [place] of Health and Human Service's (HHS's) declaration [...] with SARS-CoV-2. Performed By: #### C MP, ANTHONY #### [facility] [address] [address] [address] Kingsley Bautista INFLUENZA A AND B AGon 10-03 INFLUANEGH SEE BELOW Normal [facility] Comment on above: Result Comment: Nega tive for Flu A protein angiten. Infection due to Flu A cannot be ruled out. Flu A angiten in the sample may be below the detection limit of the test. Performed By: #### C DAVY, CMADM #### [facility] [address] [place] [address] Dr. Kingsley Bautista [facility] SEE BELOW Normal [facility] Comment on above: Result Comment: Nega tive for Flu B protein antigen. Infection due to Flu B cannot be ruled out. Flu B antigen in the sample may be below the detection limit of the test. Performed By: #### C DAVY, CMADM #### [facility] [address] [place] [address] Dr. iKngsley Bautista INFLUENZA A AG Negative Normal NEGATIVE SEE COMMENT [facility] Comment on above: Performed By: #### C DAVY, CMADM #### [facility] [address] [place] [address] Dr. Kingsley Buatista INFLUENZA B AG Negative Normal NEGATIVE SEE COMMENT [facility] Comment on above: Performed By: #### C DAVY, CMADM #### [facility] [address] [place] [address] Dr. Kingsley Bautista INTERNAL CONTROLS Within Normal Limits Normal Wi thin Normal Limits [facility] Comment on above: Performed By: #### C DAVY, CMADM #### [facility] [address] [place] [address] Dr. Kingsley Bautista CBC AUTO DIFFon 09-27-2021 BASO # 0.0 103/ul Normal 0.0-0.1 [facility] Comment on above: Performed By: #### C BC #### [facility] [address] [place] [address] Dr. Kingsley Bautista Basophils/100 WBC (Bld) 0.2 % Normal 0.2-2.0 [facility] Comment on above: Performed By: #### C BC #### [facility] [address] [place] [address] Dr. Kingsley Bautista EO # 0.0 103/ul Normal 0.0-0.7 [facility] Comment on above: Performed By: #### C BC #### [facility] [address] [place] [address] Dr. Kingsley Bautista Eosinophils/100 WBC (Bld) 0.0 % Critically low 0.9-7.0 [facility] Comment on above: Performed By: #### C BC #### [facility] [address] [place] [address] Dr. Kingsley Bautista Erythrocyte distribution width (RBC) [Ratio] 13.4 % Normal 11.0-15.0 [facility] Comment on above: Performed By: #### C BC #### [facility] [address] [place] [address] Dr. Kingsley Bautista Hematocrit (Bld) [Volume fraction] 43.6 % Normal 36.0-48.0 [facility] Comment on above: Performed By: #### C BC #### [facility] [address] [place] [address] Dr. Kingsley Bautista Hemoglobin (Bld) [Mass/Vol] 15.1 g/dL Normal 12.0-16.0 [facility] Comment on above: Performed By: #### C BC #### [facility] [address] [place] [address] Dr. Kingsley Bautista IG # 0.03 10e3/ul Normal 0.00-0.03 [facility] Comment on above: Performed By: #### C BC #### [facility] [address] [place] [address] Dr. Kingsley Bautista IG % 0.3 % Normal 0.0-0.5 [facility] Comment on above: Performed By: #### C BC #### [facility] [address] [place] [address] Dr. Kingsley Bautista LYMPH # 1.5 103/ul Normal 1.2-3.8 [facility] Comment on above: Performed By: #### C BC #### [facility] [address] [place] [address] Dr. Kingsley Bautista Lymphocytes/100 WBC (Bld) 13.6 % Critically low 20.5-60.0 [facility] Comment on above: Performed By: #### C BC #### [facility] [address] [place] [address] Dr. Kingsley Bautista MANUAL DIFF REQ NO Normal [facility] Comment on above: Performed By: #### C BC #### [facility] [address] [place] [address] Dr. Kingsley Bautista MCH (RBC) [Entitic mass] 32.1 pg Normal 26.7-34.0 [facility] Comment on above: Performed By: #### C BC #### [facility] [address] [place] [address] Dr. Kingsley Bautista MCHC (RBC) [Mass/Vol] 34.6 g/dL Normal 29.9-35.2 [facility] Comment on above: Performed By: #### C BC #### [facility] [address] [place] [address] Dr. Kingsley Bautista MCV (RBC) [Entitic vol] 92.8 fL Normal 81.0-99.0 [facility] Comment on above: Performed By: #### C BC #### [facility] [address] [place] [address] Dr. Kingsley Bautista MONO # 0.6 103/ul Normal 0.3-0.8 [facility] Comment on above: Performed By: #### C BC #### [facility] [address] [place] [address] Dr. Kingsley Bautista Monocytes/100 WBC (Bld) 5.7 % Normal 1.7-12.0 [facility] Comment on above: Performed By: #### C BC #### [facility] [address] [place] [address] Dr. Kingsley Bautista NEUT # 9.1 103/ul Critically high 1.4-6.5 [facility] Comment on above: Performed By: #### C BC #### [facility] [address] [place] [address] Dr. Kingsley Bautista Neutrophils/100 WBC (Bld) 80.2 % Critically high 43.0-75.0 [facility] Comment on above: Performed By: #### C BC #### [facility] [address] [place] [address] Dr. Kingsley Bautista Platelet mean volume (Bld) [Entitic vol] 9.0 fL Critically low 9.5-13.5 [facility] Comment on above: Performed By: #### C BC #### [facility] [address] [place] [address] Dr. Kingsley Bautista PLT 341 103/ul Normal 150-450 [facility] Comment on above: Performed By: #### C BC #### [facility] [address] [place] [address] Dr. Kingsley Bautista RBC 4.70 106/ul Normal 4.20-5.40 [facility] Comment on above: Performed By: #### C BC #### [facility] [address] [place] [address] Dr. Kingsley Bautista WBC 11.3 103/ul Critically high 4.0-11.0 [facility] Comment on above: Performed By: #### C BC #### [facility] [address] [place] [address] Dr. Kingsley Bautista ETHANOL (BLD ALC)on 09-28-19 ALC NOTE NOTE: 80 mg/dl is e legal limit for a blood alcohol level Normal [facility] Comment on above: Performed By: #### E , BMP #### [facility] [address] [place] [address] Dr. Kingsley Bautista Ethanol [Mass/Vol] 59 mg/dL Normal [facility] Comment on above: Performed By: #### E , BMP #### [facility] [address] [place] [address] Dr. Kingsley Bautista PROF CHEM 8 (BAS METB)on Anion gap [Moles/Vol] 16.4 mmol/L Normal [facility] Comment on above: Performed By: #### E , BMP #### [facility] [address] [place] [address] Dr. Kingsley Bautista Calcium [Mass/Vol] 9.1 mg/dL Normal 8.5-10.1 [facility] Comment on above: Performed By: #### E , BMP #### [facility] [address] [place] [address] Dr. Kingsley Bautista Chloride [Moles/Vol] 102 mmol/L Normal 98-107 [facility] Comment on above: Performed By: #### E , BMP #### [facility] [address] [place] [address] Dr. Kingsley Bautista CO2 [Moles/Vol] 25.6 mmol/L Normal 22.0-30.0 [facility] Comment on above: Performed By: #### E , BMP #### [facility] [address] [place] [address] Dr. Kingsley Bautista Creatinine [Mass/Vol] 0.78 mg/dL Normal 0.52-1.04 [facility] Comment on above: Performed By: #### E , BMP #### [facility] [address] [place] [address] Dr. Kingsley Bautista EGFR-AF [place]IZ[place] >60 Normal >=60 [facility] Comment on above: Performed By: #### , BMP #### [facility] [address] [place] [address] Dr. Kingsley Bautista EGFR-NON AF CITIZEN OF [place] >60 Normal >=60 [facility] Comment on above: Performed By: #### E , BMP #### [facility] [address] [place] [address] Dr. Kingsley Bautista Glucose [Mass/Vol] 82 mg/dL Normal 74-106 [facility] Comment on above: Performed By: #### E , BMP #### [facility] [address] [place] [address] Dr. Kingsley Bautista Potassium [Moles/Vol] 3.0 mmol/L Critically low 3.4-5.0 [facility] Comment on above: Performed By: #### E , BMP #### [facility] [address] [place] [address] Dr. Kingsley Bautista Sodium [Moles/Vol] 140 mmol/L Normal 137-145 [facility] Comment on above: Performed By: #### E , BMP #### [facility] [address] [place] [address] Dr. Kingsley Bautista Urea nitrogen [Mass/Vol] 5.0 mg/dL Critically low 7.0-18.0 [facility] Comment on above: Performed By: #### E TH, BMP #### [facility] [address] [place] [address] Dr. Kingsley Bautista Urea nitrogen/Creatinine [Mass ratio] 6.4 mg/mg Normal [facility] Comment on above: Performed By: #### E TH, BMP #### [facility] [address] [place] [address] Dr. Kingsley Bautista CARDIAC MAURICE ADMITon 022 CK [Catalytic activity/Vol] 163 U/L Critically high 30-135 [facility] Comment on above: Performed By: #### C DAVY, CMADM #### [facility] [address] [place] [address] Dr. Kingsley Bautista CK.MB [Mass/Vol] 0.86 ng/mL Normal <=2.37 [facility] Comment on above: Performed By: #### C DAVY, CMADM #### [facility] [address] [place] [address] Dr. Kingsley Bautista HSTROP 4.2 pg/mL Normal 4.0-35.5 [facility] Comment on above: Result Comment: CUT- OFF POINTS HAVE BEEN ESTABLISHED BASED ON THE FOURTH UNIVERSAL DEFINITIONS OF MYOCARDIAL INFARCTION. THE UPPER REFERENCE LIMIT (URL) OF TROPONIN, DEFINED THE 99TH PERCENTILE OF cTnI DISTRIBUTION IN A REFERENCE POPULATION, HAS BEEN CONFIRMED THE DECISION THRESHOLD FOR IA DIAGNOSIS. Performed By: #### C DAVY, CMADM #### [facility] [address] [place] [address] Dr. Kingsley Bautsita TREMAINE 44.0 ng/mL Normal <=61.5 [facility] Comment on above: Performed By: #### C DAVY, CMADM #### [facility] [address] [place] [address] Dr. Kingsley Bautista CBC AUTO DIFFon 09-09-2021 BASO # 0.0 103/ul Normal 0.0-0.1 [facility] Comment on above: Performed By: #### C DAVY, CMADM #### [facility] [address] [place] [address] Dr. Kingsley Bautsita Basophils/100 WBC (Bld) 0.3 % Normal 0.2-2.0 [facility] Comment on above: Performed By: #### C MP, CMADM #### [facility] [address] [place] [address] Dr. Kingsley Bautista EO # 0.0 103/ul Normal 0.0-0.7 [facility] Comment on above: Performed By: #### C MP, CMADM #### [facility] [address] [place] [address] Dr. Kingsley Bautista Eosinophils/100 WBC (Bld) 0.5 % Critically low 0.9-7.0 [facility] Comment on above: Performed By: #### C DAVY, CMADM #### [facility] [address] [place] [address] Dr. Kingsley Bautista Erythrocyte distribution width (RBC) [Ratio] 14.1 % Normal 11.0-15.0 [facility] Comment on above: Performed By: #### C DAVY, CMADM #### [facility] [address] [place] [address] Dr. Kingsley Bautista Hematocrit (Bld) [Volume fraction] 42.2 % Normal 36.0-48.0 [facility] Comment on above: Performed By: #### C DAVY, CMADM #### [facility] [address] [place] [address] Dr. Kingsley Bautista Hemoglobin (Bld) [Mass/Vol] 14.4 g/dL Normal 12.0-16.0 [facility] Comment on above: Performed By: #### C MP, CMADM #### [facility] [address] [place] [address] Dr. Kingsley Bautista IG # 0.02 10e3/ul Normal 0.00-0.03 [facility] Comment on above: Performed By: #### C DAVY, CMADM #### [facility] [address] [place] [address] Dr. Kingsley Bautista IG % 0.3 % Normal 0.0-0.5 [facility] Comment on above: Performed By: #### C MP, CMADM #### [facility] [address] [place] [address] Dr. Kingsley Bautista LYMPH # 1.8 103/ul Normal 1.2-3.8 [facility] Comment on above: Performed By: #### C MP, CMADM #### [facility] [address] [place] [address] Dr. Kingsley Bautista Lymphocytes/100 WBC (Bld) 30.6 % Normal 20.5-60.0 [facility] Comment on above: Performed By: #### C MP, CMADM #### [facility] [address] [place] [address] Dr. Kingsley Bautista MANUAL DIFF REQ NO Normal [facility] Comment on above: Performed By: #### C MP, CMADM #### [facility] [address] [place] [address] Dr. Kingsley Bautista MCH (RBC) [Entitic mass] 31.7 pg Normal 26.7-34.0 [facility] Comment on above: Performed By: #### C MP, CMADM #### [facility] [address] [place] [address] Dr. Kingsley Bautista MCHC (RBC) [Mass/Vol] 34.1 g/dL Normal 29.9-35.2 [facility] Comment on above: Performed By: #### C MP, CMADM #### [facility] [address] [place] [address] Dr. Kingsley Bautista MCV (RBC) [Entitic vol] 93.0 fL Normal 81.0-99.0 [facility] Comment on above: Performed By: #### C MP, CMADM #### [facility] [address] [place] [address] Dr. Kingsley Bautista MONO # 0.4 103/ul Normal 0.3-0.8 [facility] Comment on above: Performed By: #### C MP, CMADM #### [facility] [address] [place] [address] Dr. Kingsley Bautista Monocytes/100 WBC (Bld) 7.2 % Normal 1.7-12.0 [facility] Comment on above: Performed By: #### C DAVY, HERMANDM #### [facility] [address] [place] [address] Dr. Kingsley Bautista NEUT # 3.7 103/ul Normal 1.4-6.5 [facility] Comment on above: Performed By: #### C ANTHONY BHATTI #### [facility] [address] [place] [address] Dr. Kingsley Bautista Neutrophils/100 WBC (Bld) 61.1 % Normal 43.0-75.0 [facility] Comment on above: Performed By: #### C ANTHONY BHATTI #### [facility] [address] [place] [address] Dr. Kingsley Bautista Platelet mean volume (Bld) [Entitic vol] 9.7 fL Normal 9.5-13.5 [facility] Comment on above: Performed By: #### C ANTHONY BHATTI #### [facility] [address] [place] [address] Dr. Kingsley Bautista PLT 314 103/ul Normal 150-450 [facility] Comment on above: Performed By: #### C ANTHONY BHATTI #### [facility] [address] [place] [address] Dr. Kingsley Bautista RBC 4.54 106/ul Normal 4.20-5.40 [facility] Comment on above: Performed By: #### C ANTHONY BHATTI #### [facility] [address] [place] [address] Dr. Kingsley Bautista WBC 6.0 103/ul Normal 4.0-11.0 [facility] Comment on above: Performed By: #### C ANTHONY BHATTI #### [facility] [address] [place] [address] Dr. Kingsley Bautista D-DIMERon 09-09-2021 D-DIMER <0.19 Normal 0.19-0.50 [facility] Comment on above: Performed By: #### C ANTHONY BHATTI #### [facility] [address] [place] [address] Dr. Kingsley Bautista D-DIMER COMMENTS SEE BELOW Normal [facility] Comment on above: Result Comment: Incr eases [...] Performed By: #### C MP, CMADM #### [facility] [address] [place] [address] Dr. Kingsley Bautista DRUG SCREEN RAPID (URINE)on 09-09-2021 AMP Positive Abnormal NEGATIVE [facility] Comment on above: Performed By: #### E RUR, DRUGRPD, PREGU #### [facility] [address] [place] [address] Dr. Kingsley Bautista BAR Negative Normal NEGATIVE [facility] Comment on above: Performed By: #### E RUR, DRUGRPD, PREGU #### [facility] [address] [place] [address] Dr. Kingsley Bautista BUP Negative Normal NEGATIVE [facility] Comment on above: Performed By: #### E RUR, DRUGRPD, PREGU #### [facility] [address] [place] [address] Dr. Kingsley Bautista BZO Negative Normal NEGATIVE [facility] Comment on above: Performed By: #### E RUR, DRUGRPD, PREGU #### [facility] [address] [place] [address] Dr. Kingsley Bautista CALLY Negative Normal NEGATIVE [facility] Comment on above: Performed By: #### E RUR, DRUGRPD, PREGU #### [facility] [address] [place] [address] Dr. Kingsley Bautista CUT-OFFS SEE BELOW Normal [facility] Comment on above: Result Comment: AMP (Amphetamine): [...] By: #### E RUR, DRUGRPD, PREGU #### [facility] [address] [place] [address] Dr. Kingsley Bautista DRUG CUT HEADER DRUG CLASS TEST SYST EM CUT-OFF CONCENTRATIONS ARE FOLLOWS: Normal [facility] Comment on above: Performed By: #### E RUR, DRUGRPD, PREGU #### [facility] [address] [place] [address] Dr. Kingsley Bautista mAMP Negative Normal NEGATIVE [facility] Comment on above: Performed By: #### E RUR, DRUGRPD, PREGU #### [facility] [address] [place] [address] Dr. Kingsley Bautista MTD Negative Normal NEGATIVE [facility] Comment on above: Performed By: #### E RUR, DRUGRPD, PREGU #### [facility] [address] [place] [address] Dr. Kingsley Bautista OPI Negative Normal NEGATIVE [facility] Comment on above: Performed By: #### E RUR, DRUGRPD, PREGU #### [facility] [address] [place] [address] Dr. Kingsley Bautista OXY Negative Normal NEGATIVE [facility] Comment on above: Performed By: #### E RUR, DRUGRPD, PREGU #### [facility] [address] [place] [address] Dr. Kingsley Bautista PCP Negative Normal NEGATIVE [facility] Comment on above: Performed By: #### E RUR, DRUGRPD, PREGU #### [facility] [address] [place] [address] Dr. Kingsley Bautista PPX Negative Normal NEGATIVE [facility] Comment on above: Performed By: #### E RUR, DRUGRPD, PREGU #### [facility] [address] [place] [address] Dr. Kingsley Bautista TCA Negative Normal NEGATIVE [facility] Comment on above: Performed By: #### E RUR, DRUGRPD, PREGU #### [facility] [address] [place] [address] Dr. Kingsley Bautista THC Positive Abnormal NEGATIVE [facility] Comment on above: Performed By: #### E RUR, DRUGRPD, PREGU #### [facility] [address] [place] [address] Dr. Kingsley Bautista ER URINE PROFILEon 2 Bilirubin Ql (U) Negative Normal NEGATIVE [facility] Comment on above: Performed By: #### E RUR, DRUGRPD, PREGU #### [facility] [address] [place] [address] Dr. Kingsley Bautista Clarity (U) CLEAR Normal CLEAR [facility] Comment on above: Performed By: #### E RUR, DRUGRPD, PREGU #### [facility] [address] [place] [address] Dr. Kingsley Bautista Color (U) LT. YELLOW Normal YELLOW [facility] Comment on above: Performed By: #### E RUR, DRUGRPD, PREGU #### [facility] [address] [place] [address] Dr. Kingsley Bautista ERUAHD A micrscopic examina tion will be performed if indicated. Normal [facility] Comment on above: Performed By: #### E RUR, DRUGRPD, PREGU #### [facility] [address] [place] [address] Dr. Kingsley Bautista Glucose Ql (U) Negative Normal NEGATIVE [facility] Comment on above: Performed By: #### E RUR, DRUGRPD, PREGU #### [facility] [address] [place] [address] Dr. Kingsley Bautista Hemoglobin Ql (U) Negative Normal NEGATIVE [facility] Comment on above: Performed By: #### E RUR, DRUGRPD, PREGU #### [facility] [address] [place] [address] Dr. Kingsley Bautista Ketones Ql (U) Negative Normal NEGATIVE [facility] Comment on above: Performed By: #### E RUR, DRUGRPD, PREGU #### [facility] [address] [address] [address] Kingsley Bautista LEUKOCYTES Negative Normal NEGATIVE [facility] Comment on above: Performed By: #### E RUR, DRUGRPD, PREGU #### [facility] [address] [address] [address] Kingsley Bautista Nitrite Ql (U) Negative Normal NEGATIVE [facility] Comment on above: Performed By: #### E RUR, DRUGRPD, PREGU #### [facility] [address] [place] [address] Dr. Kingsley Bautista pH (U) 6.5 [pH] Normal 5-9 [facility] Comment on above: Performed By: #### E RUR, DRUGRPD, PREGU #### [facility] [address] [place] [address] Dr. Kingsley Bautista SPEC GRAVITY <=1.005 Abnormal 1.005-<=1.0 25 [facility] Comment on above: Performed By: #### E RUR, DRUGRPD, PREGU #### [facility] [address] [place] [address] Dr. Kingsley Bautista UA PROTEIN Negative Normal NEGATIVE/ TRACE [facility] Comment on above: Performed By: #### E RUR, DRUGRPD, PREGU #### [facility] [address] [place] [address] Dr. Kingsley Bautista UR MICRO IND NOT INDICATED Normal [facility] Comment on above: Performed By: #### E RUR, DRUGRPD, PREGU #### [facility] [address] [place] [address] Dr. Kingsley Bautista Urobilinogen Qn (U) 0.2 {Patty'U}/dL Normal 0.2 - 1. 0 [facility] Comment on above: Performed By: #### E RUR, DRUGRPD, PREGU #### [facility] [address] [place] [address] Dr. Kingsley Bautista URon 09-09-2021 , QUAL Negative Normal NEGATIVE [facility] Comment on above: Performed By: #### E RUR, DRUGRPD, PREGU #### [facility] [address] [place] [address] Dr. Kingsley Bautista PROF 14(COMP METB)on 022 Albumin [Mass/Vol] 3.9 g/dL Normal 3.5-5.0 [facility] Comment on above: Performed By: #### C ANTHONY BHATTI #### [facility] [address] [place] [address] Dr. Kingsley Bautista Albumin/Globulin [Mass ratio] 1.2 {ratio} Normal [facility] Comment on above: Performed By: #### C ANTHONY BHATTI #### [facility] [address] [place] [address] Dr. Kingsley Bautista ALP [Catalytic activity/Vol] 67 U/L Normal 38-126 [facility] Comment on above: Performed By: #### C ANTHONY BHATTI #### [facility] [address] [place] [address] Dr. Kingsley Bautista ALT [Catalytic activity/Vol] 26 U/L Normal 9-52 [facility] Comment on above: Performed By: #### C HERMAN BHATTIDM #### [facility] [address] [place] [address] Dr. Kingsley Bautista Anion gap [Moles/Vol] 11.3 mmol/L Normal [facility] Comment on above: Performed By: #### C DAVY, HERMANDM #### [facility] [address] [place] [address] Dr. Kingsley Bautista AST [Catalytic activity/Vol] 38 U/L Critically high 14-36 [facility] Comment on above: Performed By: #### C DAVY, ANTHONY #### [facility] [address] [place] [address] Dr. Kingsley Bautista Bilirubin [Mass/Vol] 0.8 mg/dL Normal 0.2-1.3 [facility] Comment on above: Performed By: #### C DAVY, HERMANDM #### [facility] [address] [place] [address] Dr. Kingsley Bautista Calcium [Mass/Vol] 8.8 mg/dL Normal 8.4-10.2 [facility] Comment on above: Performed By: #### C DAVY, CMADM #### [facility] [address] [place] [address] Dr. Kingsley Bautista Chloride [Moles/Vol] 103 mmol/L Normal 98-107 [facility] Comment on above: Performed By: #### C DAVY, HERMANDM #### [facility] [address] [place] [address] Dr. Kingsley Bautista CO2 [Moles/Vol] 24.8 mmol/L Normal 22.0-30.0 [facility] Comment on above: Performed By: #### C DAVY, HERMANDM #### [facility] [address] [place] [address] Dr. Kingsley Bautista Creatinine [Mass/Vol] 0.86 mg/dL Normal 0.52-1.04 [facility] Comment on above: Performed By: #### C DAVY, HERMANDM #### [facility] [address] [place] [address] Dr. Kingsley Bautista EGFR-AF CITIZEN OF [place] >60 Normal >=60 [facility] Comment on above: Performed By: #### C DAVY, HERMANDM #### [facility] [address] [place] [address] Dr. Kingsley Bautista EGFR-NON AF CITIZEN OF [place] >60 Normal >=60 [facility] Comment on above: Performed By: #### C DAVY, HERMANDM #### [facility] [address] [place] [address] Dr. Kingsley Bautista Globulin (S) [Mass/Vol] 3.3 g/dL Normal [facility] Comment on above: Performed By: #### C DAVY, ANTHONY #### [facility] [address] [place] [address] Dr. Kingsley Bautista Glucose [Mass/Vol] 102 mg/dL Normal 74-106 [facility] Comment on above: Performed By: #### C ANTHONY BHATTI #### [facility] [address] [place] [address] Dr. Kingsley Bautista Potassium [Moles/Vol] 3.1 mmol/L Critically low 3.4-5.0 [facility] Comment on above: Performed By: #### C DAVY, HERMANDM #### [facility] [address] [address] [address] Kingsley Bautista Protein [Mass/Vol] 7.2 g/dL Normal 6.1-8.2 [facility] Comment on above: Performed By: #### C ANTHONY BHATTI #### [facility] [address] [place] [address] Dr. Kingsley Bautista Sodium [Moles/Vol] 136 mmol/L Critically low 137-145 [facility] Comment on above: Performed By: #### C ANTHONY BHATTI #### [facility] [address] [place] [address] Dr. Kingsley Bautista Urea nitrogen [Mass/Vol] 6.0 mg/dL Critically low 7.0-17.0 [facility] Comment on above: Performed By: #### C HERMAN BHATTIDM #### [facility] [address] [place] [address] Dr. Kingsley Bautista Urea nitrogen/Creatinine [Mass ratio] 7.0 mg/mg Normal [facility] Comment on above: Performed By: #### C ANTHONY BHATTI #### [facility] [address] [place] [address] Dr. Kingsley Bautista PROTIMEon 09-09-2021 INR Coag (PPP) [Relative time] 1.01 {INR} Normal [facility] Comment on above: Performed By: #### C ANTHONY BHATTI #### [facility] [address] [place] [address] Dr. Kingsley Bautista INR GUIDELINES SEE BELOW Normal [facility] Comment on above: Result Comment: HERIBERTO RED INR: 2.0 - 3.0 CONDITIONS NOT LISTED BELOW 2.5 - 3.5 FOR PROSTHETIC HEART VALVE REPLACEMENT 2.5 - 3.5 RECURRENT THROMBOSIS Performed By: #### C DAVY, HERMANDM #### [facility] [address] [place] [address] Dr. Kingsley Bautista PT Coag (PPP) [Time] 10.9 s Normal 9.0-11.6 [facility] Comment on above: Performed By: #### C DAVY, HERMANDM #### [facility] [address] [place] [address] Dr. Kingsley Bautista PTTon 09-09-2021 aPTT Coag (Bld) [Time] 25.9 s Normal 22.3-36.2 [facility] Comment on above: Performed By: #### C DAVY, ANTHONY #### [facility] [address] [place] [address] Dr. Kingsley Bautista TROPONIN, HIGH SENSITIVITYon 09-09-2021 HSTROP 7.7 pg/mL Normal 4.0-35.5 [facility] Comment on above: Result Comment: CUT- OFF POINTS HAVE BEEN ESTABLISHED BASED ON THE FOURTH UNIVERSAL DEFINITIONS OF MYOCARDIAL INFARCTION. THE UPPER REFERENCE LIMIT (URL) OF TROPONIN, DEFINED THE 99TH PERCENTILE OF cTnI DISTRIBUTION IN A REFERENCE POPULATION, HAS BEEN CONFIRMED THE DECISION THRESHOLD FOR IA DIAGNOSIS. Performed By: #### C DAVY, ANTHONY #### [facility] [address] [place] [address] Dr. Kingsley Bautista XR CHEST 1 Von [...] by: NELL LUNDBERG Date: 2021-09-09 11:09 Normal [facility] Vital Signs Date Time Vital Sign Value Performing Clinician Facility 03-01-2025 10:51-0400 Body height 152.4 cm Reuben Mizanin PA-C Work Phone: [facility] 03-01-2025 10:51-0400 Body mass index (BMI) [Ratio] 35.13 kg/m2 Reuben Mizanin PA-C Work Phone: [facility] 03-01-2025 10:51-0400 Body temperature 97.59 [degF] Reuben Mizanin PA-C Work Phone: [facility] 03-01-2025 10:51-0400 Body weight 81.6 kg Reuben Mizanin PA-C Work Phone: [facility] 03-01-2025 10:51-0400 Diastolic blood pressure 74 mm[Hg] Reuben Mizanin PA-C Work Phone: [facility] 03-01-2025 10:51-0400 Heart rate 56 /min Reuben Mizanin PA-C Work Phone: [facility] 03-01-2025 10:51-0400 SaO2% (BldA) [Mass fraction] 97 % Reuben Mizanin PA-C Work Phone: [facility] 03-01-2025 10:51-0400 Systolic blood pressure 108 mm[Hg] Reuben Mizanin PA-C Work Phone: [facility] 01-26-2025 09:10-0400 Body height 154 cm Reuben Mizanin PA-C Work Phone: [facility] 01-26-2025 09:10-0400 Body mass index (BMI) [Ratio] 34.02 kg/m2 Reuben Mizanin PA-C Work Phone: [facility] 01-26-2025 09:10-0400 Body temperature 97 [degF] Reuben Mizanin PA-C Work Phone: [facility] 01-26-2025 09:10-0400 Body weight 80.7 kg Reuben Mizanin PA-C Work Phone: [facility] 01-26-2025 09:10-0400 Diastolic blood pressure 73 mm[Hg] Reuben Mizanin PA-C Work Phone: [facility] 01-26-2025 09:10-0400 Heart rate 63 /min Reuben Mizanin PA-C Work Phone: [facility] 01-26-2025 09:10-0400 SaO2% (BldA) [Mass fraction] 98 % Reuben Mizanin PA-C Work Phone: [facility] 01-26-2025 09:10-0400 Systolic blood pressure 103 mm[Hg] Reuben Mizanin PA-C Work Phone: [facility] 12-12-2024 07:58-0400 Body mass index (BMI) [Ratio] 35.87 kg/m2 Franchesca Low MD Work Phone: [facility] 12-12-2024 07:58-0400 Body weight 86.1 kg Franchesca Low MD Work Phone: [facility] 12-12-2024 07:58-0400 Diastolic blood pressure 65 mm[Hg] Franchesca Low MD Work Phone: [facility] 12-12-2024 07:58-0400 Heart rate 75 /min Franchesca Low MD Work Phone: [facility] 12-12-2024 07:58-0400 Systolic blood pressure 95 mm[Hg] Franchesca Low MD Work Phone: [facility] 11-07-2024 09:38-0400 Body height 154.94 cm [facility] 11-07-2024 09:38-0400 Body mass index (BMI) [Ratio] 36.3 kg/m2 [facility] 11-07-2024 09:38-0400 Body temperature 98.2 [degF] [facility] 11-07-2024 09:38-0400 Body weight 87.25 kg [facility] 11-07-2024 09:38-0400 Diastolic blood pressure 62 mm[Hg] [facility] 11-07-2024 09:38-0400 Heart rate 72 /min [facility] 11-07-2024 09:38-0400 Respiratory rate 14 /min [facility] 11-07-2024 09:38-0400 SaO2% (BldA) [Mass fraction] 97 % [facility] 11-07-2024 09:38-0400 Systolic blood pressure 97 mm[Hg] [facility] 10-05-2024 10:15-0400 Body height 154.9 cm Reuben Mizanin PA-C Work Phone: [facility] 10-05-2024 10:15-0400 Body mass index (BMI) [Ratio] 36.09 kg/m2 Reuben Mizanin PA-C Work Phone: [facility] 10-05-2024 10:15-0400 Body temperature 97.81 [degF] Reuben Mizanin PA-C Work Phone: [facility] 10-05-2024 10:15-0400 Body weight 86.64 kg Reuben Mizanin PA-C Work Phone: [facility] 10-05-2024 10:15-0400 Diastolic blood pressure 85 mm[Hg] Reuben Mizanin PA-C Work Phone: [facility] 10-05-2024 10:15-0400 Heart rate 73 /min Reuben Mizanin PA-C Work Phone: [facility] 10-05-2024 10:15-0400 SaO2% (BldA) [Mass fraction] 99 % Reuben Mizanin PA-C Work Phone: [facility] 10-05-2024 10:15-0400 Systolic blood pressure 121 mm[Hg] Reuben Mizanin PA-C Work Phone: [facility] 08-04-2024 15:32-0500 Body height 152.4 cm Joo Cruz MD Work Phone: [facility] 08-04-2024 15:32-0500 Body mass index (BMI) [Ratio] 36.86 kg/m2 Bilal Butt Work Phone: [facility] 08-04-2024 15:32-0500 Body weight 85.6 kg Bilal Butt Work Phone: [facility] 03-09-2024 10:54-0400 Body mass index (BMI) [Ratio] 34.26 kg/m2 Jacklyn LIZ Work Phone: [facility] 03-09-2024 10:54-0400 Body weight 79.56 kg Jacklyn Stone PA Work Phone: [facility] 03-09-2024 10:54-0400 Diastolic blood pressure 80 mm[Hg] Jacklyn LIZ Work Phone: [facility] 03-09-2024 10:54-0400 Systolic blood pressure 122 mm[Hg] Jacklyn LIZ Work Phone: [facility] 11-01-2023 15:26-0400 Body height 152.4 cm Bilal Butt Work Phone: [facility] 11-01-2023 15:26-0400 Body mass index (BMI) [Ratio] 30.31 kg/m2 Bilal Butt Work Phone: [facility] 11-01-2023 15:26-0400 Body weight 70.4 kg Bilal Butt Work Phone: [facility] 09-10-2023 09:06-0500 Body height 152.4 cm Bilal Butt Work Phone: [facility] 09-10-2023 09:06-0500 Body weight 65.77 kg Bilal Butt Work Phone: [facility] 08-10-2023 15:15-0500 Body weight 67.59 kg Rukhsana Webb APRN.CNP Work Phone: [facility] 07-15-2023 17:10-0500 Body height 152.4 cm Elizabeth Peidra Other [employer] Other 07-15-2023 17:10-0500 Body mass index (BMI) [Ratio] 30.46 kg/m2 Elizabeth Piedra Other [employer] Other 07-15-2023 17:10-0500 Body temperature 98.6 [degF] Elizabeth Tadeo Other [employer] Other 07-15-2023 17:10-0500 Body weight 70.76 kg Elizabeth Piedra Other [employer] Other 07-15-2023 17:10-0500 Respiratory rate 18 /min Elizabeth Piedra Other [employer] Other 07-15-2023 17:10-0500 SaO2% (BldA) [Mass fraction] 99 % Elizabeth Piedra Other [employer] Other 07-02-2023 11:01-0500 Body height 152.4 cm Bilal Butt Work Phone: [facility] 07-02-2023 11:01-0500 Body weight 70.35 kg Bilal Butt Work Phone: [facility] 06-18-2023 07:58-0500 Body height 153.3 cm Rukhsana Webb [employer]PAR[employer]NER Work Phone: [facility] 06-18-2023 07:58-0500 Body weight 67.5 kg Rukhsana Webb [employer]ER.PARENT [employer]NER Work Phone: [facility] 04-09-2023 12:51-0400 Body height 152.4 cm Reuben Saeedanin PA-C Work Phone: [facility] 04-09-2023 12:51-0400 Body temperature 98.2 [degF] Reuben Saeedanin PA-C Work Phone: [facility] 04-09-2023 12:51-0400 Body weight 58.42 kg Reuben Mizanin PA-C Work Phone: [facility] 04-09-2023 12:51-0400 Diastolic blood pressure 85 mm[Hg] Reuben Mizanin PA-C Work Phone: [facility] 04-09-2023 12:51-0400 Heart rate 106 /min Reuben Mizanin PA-C Work Phone: [facility] 04-09-2023 12:51-0400 SaO2% (BldA) [Mass fraction] 99 % Reuben Mizanin PA-C Work Phone: [facility] 04-09-2023 12:51-0400 Systolic blood pressure 120 mm[Hg] Reuben Mizanin PA-C Work Phone: [facility] 04-07-2023 09:27-0400 Body height 152.4 cm Maurice Edward MD Work Phone: [facility] 04-07-2023 09:27-0400 Body weight 57.15 kg Maurice Edward MD Work Phone: [facility] 03-05-2023 10:40-0400 Body temperature 98.8 [degF] Tristan Guallpa MD Work Phone: [facility] 03-05-2023 10:40-0400 Body weight 54.43 kg Tristan Guallpa MD Work Phone: [facility] 03-05-2023 10:40-0400 Diastolic blood pressure 91 mm[Hg] Tristan Guallpa MD Work Phone: [facility] 03-05-2023 10:40-0400 Heart rate 99 /min Tristan Guallpa MD Work Phone: [facility] 03-05-2023 10:40-0400 SaO2% (BldA) [Mass fraction] 100 % Tristan Guallpa MD Work Phone: [facility] 03-05-2023 10:40-0400 Systolic blood pressure 132 mm[Hg] Tristan Guallpa MD Work Phone: [facility] 12-24-2022 00:25-0400 Diastolic blood pressure 73 mm[Hg] Silas Bhargav [facility] 12-24-2022 00:25-0400 Heart rate 73 /min Silas Bhargav [facility] 12-24-2022 00:25-0400 Mean blood pressure 81 mm[Hg] Silas Bhargav [facility] 12-24-2022 00:25-0400 Respiratory rate 11 /min Silas Bhargav [facility] 12-24-2022 00:25-0400 SaO2% (BldA) [Mass fraction] 97 % Silas Bhagrav [facility] 12-24-2022 00:25-0400 Systolic blood pressure 98 mm[Hg] Silas Bhargav [facility] 12-23-2022 23:30-0400 Diastolic blood pressure 71 mm[Hg] Silas Bhargav [facility] 12-23-2022 23:30-0400 Heart rate 70 /min Silas Bhargav [facility] 12-23-2022 23:30-0400 Mean blood pressure 78 mm[Hg] Silas Bhargav [facility] 12-23-2022 23:30-0400 Respiratory rate 14 /min Silas Bhargav [facility] 12-23-2022 23:30-0400 SaO2% (BldA) [Mass fraction] 98 % Silas Hbargav [facility] 12-23-2022 23:30-0400 Systolic blood pressure 93 mm[Hg] Silas Bhargav [facility] 12-23-2022 22:30-0400 Diastolic blood pressure 82 mm[Hg] Silas Bhargav [facility] 12-23-2022 22:30-0400 Heart rate 78 /min Silas Bhargav [facility] 12-23-2022 22:30-0400 Mean blood pressure 92 mm[Hg] Silas Bhargav [facility] 12-23-2022 22:30-0400 Respiratory rate 12 /min Silas Bhargav [facility] 12-23-2022 22:30-0400 SaO2% (BldA) [Mass fraction] 99 % Silas Bhargav [facility] 12-23-2022 22:30-0400 Systolic blood pressure 111 mm[Hg] Silas Bhargav [facility] 12-23-2022 22:12-0400 Heart rate 55 /min Silas Bhargav [facility] 12-23-2022 22:12-0400 Respiratory rate 18 /min Silas Bhargav [facility] 12-23-2022 19:38-0400 Body temperature 98.06 [degF] Silas Bhargav [facility] 12-23-2022 19:38-0400 Heart rate 83 /min Silas Bhargav [facility] 12-23-2022 19:38-0400 Respiratory rate 22 /min Silas Bhargav [facility] 11-07-2022 18:00-0400 [facility] 11-07-2022 18:00-0400 Promise to Return Lissettmad [facility] 11-07-2022 17:00-0400 Hourly Rounding [facility] 11-07-2022 17:00-0400 Promise to Return [facility] 11-07-2022 16:33-0400 Heart rate 89 /min [facility] 11-07-2022 16:33-0400 SaO2% (BldA) [Mass fraction] 100 % [facility] 11-07-2022 16:33-0400 Diastolic blood [facility] 61 mm[facility]Hg[facility] 11-07-2022 16:33-0400 Mean blood pressure 78 mm[Hg] [facility] 11-07-2022 16:33-0400 Systolic blood pressure 111 mm[Hg] [facility] 11-07-2022 16:32-0400 Body temperature 98.06 [degF] [facility] 11-07-2022 16:00-0400 Blood Pressure Location [facility] 11-07-2022 16:00-0400 Hourly Rounding [facility] 11-07-2022 16:00-0400 Promise to Return [facility] 11-07-2022 11:41-0400 Heart rate 66 /min [facility] 11-07-2022 11:41-0400 SaO2% (BldA) [Mass fraction] 98 % [facility] 11-07-2022 11:39-0400 Body temperature 97.7 [degF] [facility] 11-07-2022 11:39-0400 Diastolic blood pressure 75 mm[Hg] [facility] 11-07-2022 11:39-0400 Mean blood pressure 87 mm[Hg] [facility] 11-07-2022 11:39-0400 Systolic blood pressure 112 mm[Hg] [facility] 11-07-2022 11:00-0400 Respiratory rate 16 /min [facility] 11-07-2022 08:25-0400 Heart rate 74 /min [facility] 11-07-2022 08:25-0400 SaO2% (BldA) [Mass fraction] 98 % [facility] 11-07-2022 08:24-0400 Body temperature 98.24 [degF] [facility] 11-07-2022 08:23-0400 Diastolic blood pressure 70 mm[Hg] [facility] 11-07-2022 08:23-0400 Mean blood pressure 81 mm[Hg] [facility] 11-07-2022 08:23-0400 Systolic blood pressure 103 mm[Hg] [facility] 11-07-2022 08:00-0400 Respiratory rate 18 /min [facility] 11-06-2022 20:29-0400 Heart rate 88 /min [facility] 11-06-2022 14:33-0400 Heart rate 65 /min [facility] 10-22-2022 10:20-0400 Blood Pressure Location Amara Palacio [facility] 10-22-2022 10:20-0400 Body temperature 97.7 [degF] Amara Palacio [facility] 10-22-2022 10:20-0400 Diastolic blood pressure 87 mm[Hg] Amara Palacio [facility] 10-22-2022 10:20-0400 Heart rate 105 /min Amara Palacio [facility] 10-22-2022 10:20-0400 Systolic blood pressure 123 mm[Hg] Amara Palacio [facility] 07-30-2022 12:40-0500 Diastolic blood pressure 64 mm[Hg] Padron SALAM [facility] 07-30-2022 12:40-0500 Systolic blood pressure 102 mm[Hg] Padron SALAM [facility] 07-29-2022 05:30-0500 Diastolic blood pressure 85 mm[Hg] Mikal Radha [facility] 07-29-2022 05:30-0500 Heart rate 69 /min Mikal Radha [facility] 07-29-2022 05:30-0500 Mean blood pressure 96 mm[Hg] Mikal Radha [facility] 07-29-2022 05:30-0500 Respiratory rate 18 /min Mikal Radha [facility] 07-29-2022 05:30-0500 Systolic blood pressure 118 mm[Hg] Mikal Radha [facility] 07-29-2022 05:00-0500 Diastolic blood pressure 80 mm[Hg] Mikal Radha [facility] 07-29-2022 05:00-0500 Heart rate 99 /min Mikal Radha [facility] 07-29-2022 05:00-0500 Mean blood pressure 100 mm[Hg] Mikal Radha [facility] 07-29-2022 05:00-0500 Systolic blood pressure 141 mm[Hg] Mikal Radha [facility] 07-29-2022 04:30-0500 Diastolic blood pressure 84 mm[Hg] Mikal Radha [facility] 07-29-2022 04:30-0500 Heart rate 73 /min Mikal Radha [facility] 07-29-2022 04:30-0500 Mean blood pressure 95 mm[Hg] Mikal Radha [facility] 07-29-2022 04:30-0500 Respiratory rate 11 /min Mikal Radha [facility] 07-29-2022 04:30-0500 Systolic blood pressure 117 mm[Hg] Mikal Radha [facility] 07-29-2022 04:01-0500 SaO2% (BldA) [Mass fraction] 98 % Mikal Radha [facility] 07-29-2022 03:16-0500 Nursing Progress Note Reason Other: pt back from CT, pt reapplied to hall monitor and 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 pt denies current needs. Mikal Radha [facility] 07-29-2022 03:07-0500 Nursing Progress Note Reason Other: pt to CT at this time Mikal Radha [facility] 07-29-2022 02:51-0500 SaO2% (BldA) [Mass fraction] 99 % Mikal Radha [facility] 07-29-2022 02:24-0500 Body temperature 97.34 [degF] Mikal Radha [facility] 07-29-2022 02:24-0500 Heart rate 117 /min Mikal Radha [facility] 07-29-2022 02:24-0500 Respiratory rate 20 /min Mikal Radha [facility] 07-29-2022 02:24-0500 SaO2% (BldA) [Mass fraction] 96 % Mikal Garcia [facility] 03-19-2022 14:03-0400 Blood Pressure Location Padron SALAM [facility] 03-19-2022 14:03-0400 Diastolic blood pressure 80 mm[Hg] Padron SALAM [facility] 03-19-2022 14:03-0400 Heart rate 82 /min Padron SALAM [facility] 03-19-2022 14:03-0400 Respiratory rate 16 /min Padron SALAM [facility] 03-19-2022 14:03-0400 Systolic blood pressure 117 mm[Hg] Padron SALAM [facility] 03-19-2022 08:05-0400 Body height 152.4 cm Brooks Lamb MD Work Phone: [facility] 03-19-2022 08:05-0400 Body weight 68.81 kg Brooks Lamb MD Work Phone: [facility] 03-19-2022 08:05-0400 Diastolic blood pressure 72 mm[Hg] Brooks Lamb MD Work Phone: [facility] 03-19-2022 08:05-0400 Heart rate 91 /min Brooks Lamb MD Work Phone: [facility] 03-19-2022 08:05-0400 Systolic blood pressure 108 mm[Hg] Brooks Lamb MD Work Phone: [facility] 02-19-2022 10:43-0400 Blood Pressure Location Amara Palacio [facility] 02-19-2022 10:43-0400 Body temperature 97.52 [degF] Amaraochoa TovarPia [facility] 02-19-2022 10:43-0400 Diastolic blood pressure 72 mm[Hg] Amaraochoa TvoarPia [facility] 02-19-2022 10:43-0400 Heart rate 98 /min Amaraochoa TovarPia [facility] 02-19-2022 10:43-0400 Systolic blood pressure 103 mm[Hg] Amaraochoa TovarPia [facility] 02-09-2022 09:22-0400 Diastolic blood pressure 80 mm[Hg] Padron SALAM [facility] 02-09-2022 09:22-0400 Heart rate 54 /min Padron SALAM [facility] 02-09-2022 09:22-0400 Respiratory rate 16 /min Padron SALAM [facility] 02-09-2022 09:22-0400 SaO2% (BldA) [Mass fraction] 100 % Padron SALAM [facility] 02-09-2022 09:22-0400 Systolic blood pressure 110 mm[Hg] Padron SALAM [facility] 02-09-2022 09:10-0400 Diastolic blood pressure 75 mm[Hg] Padron SALAM [facility] 02-09-2022 09:10-0400 Heart rate 52 /min Padron SALAM [facility] 02-09-2022 09:10-0400 Respiratory rate 15 /min Padron SALAM [facility] 02-09-2022 09:10-0400 SaO2% (BldA) [Mass fraction] 99 % Padron SALAM [facility] 02-09-2022 09:10-0400 Systolic blood pressure 118 mm[Hg] Padron SALAM [facility] 02-09-2022 09:05-0400 Diastolic blood pressure 88 mm[Hg] Padron SALAM [facility] 02-09-2022 09:05-0400 Heart rate 58 /min Padron SALAM [facility] 02-09-2022 09:05-0400 Respiratory rate 16 /min Padron SALAM [facility] 02-09-2022 09:05-0400 SaO2% (BldA) [Mass fraction] 99 % Padron SALAM [facility] 02-09-2022 09:05-0400 Systolic blood pressure 116 mm[Hg] Padron SALAM [facility] 02-09-2022 08:57-0400 Body temperature 97.34 [degF] Padron SALAM [facility] 02-09-2022 08:55-0400 Respiratory rate 18 /min Padron SALAM [facility] 02-09-2022 08:50-0400 Respiratory rate 22 /min Padron SALAM [facility] 02-09-2022 07:55-0400 Blood Pressure Location Padron SALAM [facility] 02-09-2022 07:55-0400 Body temperature 96.98 [degF] Vito ROBERTSON [facility] 02-02-2022 08:27-0400 Blood Pressure Location Amara Palacio [facility] 02-02-2022 08:27-0400 Body temperature 97.34 [degF] Amara Palacio [facility] 02-02-2022 08:27-0400 Diastolic blood pressure 72 mm[Hg] Amara Lylez [facility] 02-02-2022 08:27-0400 Heart rate 96 /min Amara Palacio [facility] 02-02-2022 08:27-0400 SaO2% (BldA) [Mass fraction] 98 % Amara Palacio [facility] 02-02-2022 08:27-0400 Systolic blood pressure 102 mm[Hg] Amara Palacio [facility] 01-12-2022 14:27-0400 Hourly Rounding [facility] 01-12-2022 14:27-0400 Promise to Return [facility] 01-12-2022 14:00-0400 Diastolic blood pressure 88 mm[Hg] [facility] 01-12-2022 14:00-0400 Heart rate 55 /min [facility] 01-12-2022 14:00-0400 Respiratory rate 16 /min [facility] 01-12-2022 14:00-0400 Systolic blood pressure 128 mm[Hg] [facility] 01-12-2022 13:30-0400 Diastolic blood pressure 93 mm[Hg] [facility] 01-12-2022 13:30-0400 Heart rate 80 /min [facility] 01-12-2022 13:30-0400 Mean blood pressure 101 mm[Hg] [facility] 01-12-2022 13:30-0400 Respiratory rate 58 /min [facility] 01-12-2022 13:30-0400 SaO2% (BldA) [Mass fraction] 99 % [facility] 01-12-2022 13:30-0400 Systolic blood pressure 118 mm[Hg] [facility] 01-12-2022 13:00-0400 Hourly Rounding [facility] 01-12-2022 13:00-0400 Promise to Return [facility] 01-12-2022 12:27-0400 Hourly Rounding [facility] 01-12-2022 12:27-0400 Promise to Return [facility] 01-12-2022 12:26-0400 Diastolic blood pressure 92 mm[Hg] [facility] 01-12-2022 12:26-0400 Heart rate 73 /min [facility] 01-12-2022 12:26-0400 Respiratory rate 18 /min [facility] 01-12-2022 12:26-0400 Systolic blood pressure 121 mm[Hg] [facility] 01-12-2022 11:30-0400 Mean blood pressure 111 mm[Hg] [facility] 01-12-2022 09:43-0400 Body temperature 98.42 [degF] [facility] 01-12-2022 09:43-0400 Heart rate 96 /min [facility] 01-12-2022 09:43-0400 Respiratory rate 18 /min [facility] 12-24-2021 08:56-0400 Blood Pressure Location Padron SALAM [facility] 12-24-2021 08:56-0400 Diastolic blood pressure 76 mm[Hg] Padron SALAM [facility] 12-24-2021 08:56-0400 Heart rate 99 /min Padron SALAM [facility] 12-24-2021 08:56-0400 Respiratory rate 16 /min Padron SALAM [facility] 12-24-2021 08:56-0400 Systolic blood pressure 138 mm[Hg] Padron SALAM [facility] 10-14-2021 18:00-0400 Hourly Rounding Nagi GEOVANI [facility] 10-14-2021 18:00-0400 Promise to Return Nagi GEOVANI [facility] 10-14-2021 15:42-0400 Body temperature 98.6 [degF] Nagi GEOVANI [facility] 10-14-2021 15:42-0400 Diastolic blood pressure 70 mm[Hg] Nagiwilla PITTSSLIN [facility] 10-14-2021 15:42-0400 Heart rate 87 /min Nagi GEOVANI [facility] 10-14-2021 15:42-0400 Mean blood pressure 84 mm[Hg] Nagiwilla PITTSSLIN [facility] 10-14-2021 15:42-0400 SaO2% (BldA) [Mass fraction] 98 % Nagiiwlla PITTSSLIN [facility] 10-14-2021 15:42-0400 Systolic blood pressure 110 mm[Hg] Nagiwilla PITTSSLIN [facility] 10-14-2021 12:00-0400 Body temperature 98.06 [degF] Nagiwilla PITTSSLIN [facility] 10-14-2021 12:00-0400 Diastolic blood pressure 62 mm[Hg] Nagiwilla PITTSSLIN [facility] 10-14-2021 12:00-0400 Heart rate 97 /min Nagiwilla PITTSSLIN [facility] 10-14-2021 12:00-0400 Systolic blood pressure 97 mm[Hg] Nagiwilla PITTSSLIN [facility] 10-14-2021 08:16-0400 Body temperature 97.34 [degF] Nagiwilla PITTSSLIN [facility] 10-14-2021 08:16-0400 Diastolic blood pressure 71 mm[Hg] Nagiwilla PITTSSLIN [facility] 10-14-2021 08:16-0400 Heart rate 62 /min Nagiwilla PITTSSLIN [facility] 10-14-2021 08:16-0400 Mean blood pressure 83 mm[Hg] Nagi GEOVANI [facility] 10-14-2021 08:16-0400 SaO2% (BldA) [Mass fraction] 97 % Nagiwilla PITTSSLIN [facility] 10-14-2021 08:16-0400 Systolic blood pressure 107 mm[Hg] Nagiwilla PITTSSLIN [facility] 10-14-2021 02:10-0400 Blood Pressure Location Nagiwilla PITTSSLIN [facility] 10-14-2021 02:10-0400 Heart rate 107 /min Nagiwilla PITTSSLIN [facility] 10-14-2021 01:14-0400 Mean blood pressure 91 mm[Hg] Nagiwilla PITTSSLIN [facility] 10-14-2021 01:14-0400 Respiratory rate 15 /min Nagiwilla DRIVERLIN [facility] 10-14-2021 00:39-0400 Mean blood pressure 98 mm[Hg] Nagiwilla DRIVERLIN [facility] 10-14-2021 00:39-0400 Respiratory rate 15 /min Nagiwilla PITTSSLIN [facility] 10-13-2021 23:30-0400 Heart rate 101 /min Nagiwilla PITTSSLIN [facility] 10-13-2021 23:30-0400 Respiratory rate 16 /min Nagiwilla DRIVERLIN [facility] 10-12-2021 16:00-0400 Hourly Round[facility]-12-[facility] 16:00-0400 [facility] 10-12-2021 11:34-0400 [facility] 10-12-2021 11:34-0400 Body temperature 98.42 [degF] [facility] 10-12-2021 11:34-0400 BP/Pulse Patient Position [facility] 10-12-2021 11:34-0400 Diastolic blood pressure 77 mm[Hg] [facility] 10-12-2021 11:34-0400 Heart rate 65 /[facility] 10-12-2021 11:34-0400 Mean blood pressure 92 mm[Hg] [facility] 11:34-0400 Respiratory rate 18 /min [facility] 10-12-2021 11:34-0400 SaO2% (BldA) [Mass fraction] 98 % [facility] 10-12-2021 11:34-0400 Systolic blood pressure 123 mm[Hg] [facility] 10-12-2021 08:13-0400 [facility] 10-12-2021 08:13-0400 Body temperature 98.24 [degF] [facility] 10-12-2021 08:13-0400 BP/Pulse [facility] 10-12-2021 08:13-0400 Diastolic blood pressure 49 mm[Hg] [facility] 10-12-2021 08:13-0400 Heart rate 84 /min [facility] 10-12-2021 08:13-0400 Mean blood pressure 64 mm[Hg] [facility] 10-12-2021 08:13-0400 Respiratory rate 18 /min [facility] 10-12-2021 08:13-0400 SaO2% (BldA) [Mass fraction] 97 % [facility] 10-12-2021 08:13-0400 Systolic blood pressure 93 mm[Hg] [facility] 10-12-2021 01:00-0400 Blood Pressure [facility] 10-12-2021 01:00-0400 Body temperature 97.34 [degF] [facility] 10-12-2021 01:00-0400 BP/Pulse [facility] 10-12-2021 01:00-0400 Diastolic blood pressure 78 mm[Hg] [facility] 10-12-2021 01:00-0400 Heart rate 59 /min [facility] 10-12-2021 01:00-0400 Mean blood pressure 91 mm[Hg] [facility] 10-12-2021 01:00-0400 Respiratory rate 18 /min [facility] 10-12-2021 01:00-0400 SaO2% (BldA) [Mass fraction] 98 % [facility] 10-12-2021 01:00-0400 Systolic blood pressure 118 mm[Hg] [facility] 10-11-2021 21:00-0400 Mean blood pressure 98 mm[Hg] [facility] 10-11-2021 17:10-0400 Mean blood pressure 96 mm[Hg] [facility] 10-11-2021 01:00-0400 Mean blood pressure 79 mm[Hg] [facility] 10-10-2021 10:00-0400 Respiratory rate 10 /min [facility] 10-10-2021 09:00-0400 Respiratory rate 9 /min gonzález [facility] 10-10-2021 08:00-0400 Body temperature 98.06 [degF] [facility] 10-10-2021 08:00-0400 Respiratory rate 19 /min [facility] 10-10-2021 04:00-0400 Body temperature 98.24 [degF] [facility] 10-10-2021 00:00-0400 Body temperature 98.6 [degF] [facility] 10-09-2021 11:10-0400 Heart rate 60 /min [facility] 10-09-2021 10:58-0400 Nursing Progress Note Reason Other: PT TO FLOOR VIA Mónica PFEIFFER ON IV pump [facility] 10-09-2021 10:40-0400 Nursing Progress Note Reason Other: Patient and family updadted on admission and room [facility] 10-09-2021 08:56-0400 Heart rate 67 /min [facility] Encounters Encounter Date Encounter Type Care Provider Facility Start: 03-09-2025 End: 03-09-2025 ambulatory Reuben Agrawal PA-C Work Phone: Internal [facility] Comment on above: Medication Start: 03-01-2025 End: 03-01-2025 Office outpatient visit 25 minutes Reuben LIZ-C Work Phone: Internal [facility] Comment on above: Upper back pain (Mariangel jose Dx); 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); Neck pain Start: 03-01-2025 End: 03-01-2025 ambulatory REUBEN AGRAWAL Facility:[facility] Start: 02-19-2025 End: 02-19-2025 Telephone encounter Reuben Agrawal PA-C Work Phone: Internal [facility] Comment on above: Received Outside Med ical Records Start: 01-29-2025 End: 01-29-2025 Patient encounter procedure Pulm Lab [facility] Work Phone: Pulmonology Start: 01-29-2025 End: 01-29-2025 ambulatory FRANCHESCA LOW Pulmonology Comment on above: Spirometry Start: 01-26-2025 End: 01-26-2025 Telephone encounter Reuben Chan Mizanin PA-C Work Phone: Internal Medicine [facility] Comment on above: Request Outside Medi yaw Records (Neymar) Start: 01-26-2025 End: 01-26-2025 Office outpatient visit 25 minutes Reuben Rocio Mizanin PA-C Work Phone: [facility] Comment on above: Nausea and vomiting, unspecified vomiting type (Primary Dx); Fatty liver; Forgetfulness Start: 01-26-2025 End: 01-26-2025 ambulatory Reuben L Mizanin PA-C Work Phone: [facility] Comment on above: Pain management Start: 01-25-2025 End: 01-25-2025 ambulatory REUBEN L MIZANIN Facility:[facility] Start: 01-18-2025 End: 01-18-2025 Refill Reuben Rocio Mizanin PA-C Work Phone: [facility] Comment on above: Refill Request Insurance Authorizat ion Start: 01-02-2025 End: 01-04-2025 ambulatory Saundra Blanc Facility:[facility] Start: 01-02-2025 Emergency department patient visit DO Verónica Yates Facility:[facility] Start: 01-02-2025 End: 01-04-2025 Observation Saundra Genserene Heller [facility] Start: 12-17-2024 ambulatory REUBEN L MIZANIN Faci lity:[facility] Start: 12-17-2024 End: 12-17-2024 Subsequent hospital visit by physician Screen/Diag Mammo [facility] Work Phone: [facility] Radiology Mammography Comment on above: Screening mammogram, encounter for [Z12.31] Start: 12-12-2024 End: 12-12-2024 Patient encounter procedure Franchesca Low MD Work Phone: Cardiology Comment on above: SOB (shortness of br eath) (Primary Dx); Wheezing; History of tobacco use; Mixed hyperlipidemia Start: 12-12-2024 End: 12-12-2024 ambulatory FRANCHESCA LOW Facility:[facility] Start: 11-07-2024 End: 11-07-2024 ambulatory [facility] Work Phone: Start: 11-07-2024 End: 11-07-2024 Patient encounter procedure [facility] Work Phone: Start: 10-23-2024 End: 10-24-2024 Refill Lloyd Enedina VAZPARENT PARTNER Work Phone: [facility] Comment on above: Refill Request Refills Start: 10-16-2024 End: 10-16-2024 ambulatory Reuben Agrawal PA-C Work Phone: [facility] Comment on above: Tizanidine Start: 10-16-2024 End: 10-16-2024 E-mail encounter from caregiver Reuben Agrawal PA-C Work Phone: [facility] Start: 10-13-2024 End: 10-13-2024 Telephone encounter Reuben Agrawal PA-C Work Phone: [facility] Comment on above: Orders (PT: Initial Exam) Start: 10-05-2024 End: 10-06-2024 Follow-up encounter Reuben Agrawal PA-C Work Phone: [facility] Start: 10-05-2024 End: 10-06-2024 Telephone encounter Reuben Saeedanin PA-C Work Phone: [facility] Comment on above: Letter Start: 10-05-2024 End: 10-05-2024 ambulatory REUBEN AGRAWAL Facility:[facility] Start: 10-05-2024 End: 10-05-2024 Patient encounter status Reuben Agrawal PA-C Work Phone: [facility] Start: 10-05-2024 End: 10-05-2024 Periodic preventive med est patient 18-39 yrs Reuben Agrawal PA-C Work Phone: Internal Medicine [facility] Comment on above: Routine general medi yaw examination at a health care facility (Primary Dx); Upper back pain; Attention deficit disorder, unspecified type; Vitamin D deficiency; Dyslipidemia; Weight gain; Screening mammogram, encounter for; Special screening examination for viral disease Start: 10-02-2024 End: 12-02-2024 Follow-up encounter Reuben Agrawal PA-C Work Phone: Internal [facility] Start: 10-02-2024 End: 10-02-2024 ambulatory REUBEN AGRAWAL Facility:[facility] Start: 08-26-2024 End: 08-26-2024 Letter encounter Miriamdaily Cavazos Work Phone: [facility] Start: 08-15-2024 End: 08-15-2024 Orders Only Reuben Agrawal PA-C Work Phone: Internal 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 Comment on above: Meds Refill Request Start: 07-28-2024 End: 07-31-2024 Refill Reuben Chan Mizanin PA-C Work Phone: Internal [facility] Comment on above: Refill Request Start: 06-22-2024 End: 06-22-2024 Refill Reuben Chan Mizanin PA-C Work Phone: [facility] Comment on above: Refill Request Start: 05-20-2024 End: 05-20-2024 Letter encounter Miriam Cavazos Work Phone: [facility] Start: 05-13-2024 End: 05-15-2024 Refill Aguilar Lincoln PULVERIZER FEEDER.PARENT PARTNER Work Phone: Cardiology Comment on above: Refill Request Start: 03-25-2024 End: 03-27-2024 Refill Reuben Chan Mizanin PA-C Work Phone: Internal [facility] Comment on above: Refill Request Start: 03-09-2024 End: 03-09-2024 Bamboo flowsheet Jacklyn LIZ Work Phone: [facility] Start: 03-09-2024 End: 03-09-2024 Bamboo flowsheet Jacklyn LIZ Work Phone: [facility] Start: 03-09-2024 End: 03-09-2024 Postop follow up visit related to original px Jacklyn LIZ Work Phone: [facility] Comment on above: Postop check Start: 03-09-2024 End: 03-09-2024 ambulatory JACKLYN STONE Not Available Start: 03-06-2024 End: 03-07-2024 Refill Lloyd Mcconnell PULVERIZER FEEDER.PARENT PARTNER Work Phone: [facility] Comment on above: Refill Request Start: 02-25-2024 End: 02-25-2024 Clinisync Result Encounter Solomon Sorensen DO Work Phone: [facility] External [facility] Unsolicited Start: 02-25-2024 End: 02-25-2024 Clinisync Result Encounter Solomon Franchesca DO Work Phone: [facility] Unsolicited Start: 02-25-2024 End: 02-25-2024 ambulatory Solomon Franchesca [facility] Work Phone: Start: 02-25-2024 End: 02-25-2024 Departed Referred DO Solomon Franchesca Work Phone: [facility] Start: 02-10-2024 End: 02-10-2024 ambulatory Solomon Franchesca [facility] Work Phone: Start: 02-10-2024 End: 02-10-2024 Departed Referred DO Solomon Franchesca Work Phone: [facility] Start: 02-09-2024 End: 02-09-2024 ambulatory SOLOMON FRANCHESCA Not Available Start: 01-26-2024 Telephone encounter Joo Cruz MD Work Phone: [facility] Start: 01-24-2024 Office outpatient vi sit 10 minutes Joo Cruz MD Work Phone: [facility] Start: 01-17-2024 Orders Only Lloyd Mcconnell PULVERIZER FEEDER.PARENT PARTNER Work Phone: [facility] Comment on above: 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 Comment on above: Approval Start: 12-14-2023 End: 12-14-2023 ambulatory SOLOMON FRANCHESCA Not Available Start: 12-12-2023 Refill Reuben hampton PA-C Work Phone: [facility] Comment on above: Refill Request Start: 11-30-2023 MC Get Medical Advice Reuben Agrawal PA-C Work Phone: [facility] Comment on above: Refill Start: 11-16-2023 End: 11-16-2023 ambulatory JESSICA CHE Not Available Start: 11-15-2023 End: 11-16-2023 ambulatory Erika Flores Facility:[facility] Start: 11-15-2023 End: 11-15-2023 Lab Drop off Erika Flores [facility] Start: 11-13-2023 Refill Shelby Humphrey PULVERIZER FEEDER.PARENT PARTNER Work Phone: Cardiology Comment on above: Refill Request Start: 11-12-2023 Telephone encounter Joo Cruz MD Work Phone: [facility] Start: 11-01-2023 End: 11-01-2023 Postop follow up visit related to original px Joo Cruz MD Work Phone: [facility] Comment on above: 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) Start: 11-01-2023 End: 11-01-2023 ambulatory JOO CRUZ Facility:[facility] Start: 11-01-2023 Encounter for other preprocedural examination [facility] Start: 11-01-2023 End: 11-01-2023 Patient encounter status General [facility] Start: 11-01-2023 End: 11-01-2023 Subsequent hospital visit by physician General [facility] Radiology Comment on above: Cervical spinal sten osis [M48.02] Start: 10-22-2023 ambulatory Joo mackenzie MD Work Phone: [facility] Comment on above: Appeal Denied Start: 09-24-2023 Refill Joo mackenzie MD Work Phone: [facility] Comment on above: Refill Request Start: 09-14-2023 ambulatory Reuben hampton PA-C Work Phone: Internal Medicine [facility] Comment on above: Questions Start: 09-10-2023 End: 09-10-2023 Distance Health Reuben LIZ-C Work Phone: Internal Medicine [facility] Comment on above: Palpitations (Primar y Dx); Bipolar 1 disorder (HCC); S/P cervical spinal fusion Start: 09-10-2023 End: 09-10-2023 ambulatory JOO CRUZ Facility:[facility] Start: 09-10-2023 End: 09-10-2023 Postop follow up visit related to original px Joo Cruz MD Work Phone: [facility] Comment on above: 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) Start: 09-09-2023 ambulatory Joo mackenzie MD Work Phone: [facility] Comment on above: Zanaf[employer] Start: 09-09-2023 E-mail encounter hussein m caregiver Joo Cruz MD Work Phone: [facility] Start: 09-09-2023 Telephone encounter Reuben SHERWOODC Work Phone: [facility] Comment on above: [facility]- Occupational Therapy (Re-certification Note) Start: 09-06-2023 ambulatory Joo mackenzie MD Work Phone: [facility] Comment on above: Medication Start: 09-01-2023 ambulatory Joo mackenzie MD Work Phone: [facility] Comment on above: Question Start: 08-27-2023 Telephone encounter Joo Cruz MD Work Phone: [facility] Start: 08-26-2023 ambulatory Reuben LIZ-C Work Phone: Internal [facility] Comment on above: Plasma consent to re lease medical records Start: 08-26-2023 Telephone encounter Reuben Agrawal PA-C Work Phone: [facility] Comment on above: Appointment Start: 08-24-2023 End: 08-25-2023 ambulatory JOO CRUZ Facility:[facility] Start: 08-19-2023 Telephone encounter Joo Cruz MD Work Phone: Neurology Comment on above: Patient Update; Alicia ent Question Start: 08-12-2023 ambulatory Reubenalonso Saeed anin PA-C Work Phone: Internal [facility] Comment on above: Clearance Start: 08-10-2023 End: 08-10-2023 Patient encounter procedure Rukhsana Webb PULVERIZER FEEDER.PARENT PARTNER Work Phone: [facility] Comment on above: Spinal stenosis of c ervical region (Primary Dx) Start: 08-06-2023 Telephone encounter Joo Cruz MD Work Phone: [facility] Start: 07-16-2023 ambulatory UNKNOWN PROVIDER Facili ty:[facility] Start: 07-15-2023 End: 07-15-2023 ambulatory Elizabeth Piedra Other [employer] Other Start: 07-15-2023 Office outpatient ne w 20 minutes Elizabeth Piedra [facility] Start: 07-02-2023 End: 07-02-2023 Office outpatient new 30 minutes Joo Cruz MD Work Phone: [facility] Comment on above: Spinal stenosis of c ervical region (Primary Dx) Start: 06-18-2023 ambulatory Reuben Saeed anin PA-C Work Phone: Internal [facility] Comment on above: Question on results Start: 06-18-2023 End: 06-18-2023 Subsequent hospital visit by physician Xr [facility] General Radiology Comment on above: Cervicalgia [M54.2] Start: 06-18-2023 End: 06-18-2023 Patient encounter procedure Rukhsana Webb APRN.PARENT PARTNER Work Phone: [facility] Comment on above: Cervicalgia (Primary Dx); 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; Radiculopathy, cervical region Start: 06-14-2023 Telephone encounter Reuben Saeedanin PA-C Work Phone: Internal [facility] Comment on above: Orders (OT recertifi cation note) Start: 06-03-2023 E-mail encounter hussein gonzalez caregiver Reuben Saeedanin PA-C Work Phone: [place] Start: 06-03-2023 Follow-up encounter Reuben Saeedanin PA-C Work Phone: [facility] Comment on above: Follow up Start: 06-03-2023 Telephone encounter Reuben Saeedanin PA-C Work Phone: [facility] Start: 06-02-2023 E-mail encounter hussein m caregiver [facility] [address] Start: 06-02-2023 Patient encounter procedure [facility] Provider Pain Management Comment on above: regarding appointmen t with pain mgmt Start: 06-02-2023 Telephone encounter Reuben Chan Martitaanin PA-C Work Phone: [address] [place] [address] Comment on above: Patient Question Start: 04-16-2023 ambulatory Nitza Valdovinos [facility] Social Work Comment on above: SDOH Start: 04-15-2023 ambulatory Ladi Lapgabyi RT(R) Radiology Comment on above: Radiology MRI Start: 04-15-2023 Patient encounter procedure Ladiperri Calixtoi RT(R) [facility] [place] Start: 04-15-2023 End: 04-15-2023 Subsequent hospital visit by physician Mri [facility] Kim (1.5t) Work Phone: Radiology Comment on above: Chiari I malformatio n ([facility]) [G93.5] Start: 04-12-2023 Telephone encounter Reuben Saeedanin PA-C Work Phone: Family [facility] Comment on above: [facility] ) Start: 04-09-2023 Telephone encounter Reuben Chan Martitaanin PA-C Work Phone: Internal [facility] Comment on above: [facility] Request [facility] Medical Records Request [facility] In patient/Outpatient Medical Record Miguel Romero [facility] er Medical Records Request Start: 04-09-2023 End: 04-09-2023 Office outpatient new 60 minutes Reuben Agrawal PA-C Work Phone: Internal Medicine [facility] Comment on above: Abnormal EKG (Primar [...] with new doctor Start: 04-07-2023 End: 04-07-2023 [facility] Maurice Edward MD Work Phone: Family Medicine Comment on [...] 03-26-2023 ambulatory Zoraida cobb PA-C Work Phone: [facility] Comment on above: Echo and gabapentin Start: 03-26-2023 E-mail encounter fro m caregiver Zoraida Valle PA-C Work Phone: [facility] Start: 03-26-2023 Telephone encounter Zoraida menard PA-C Work Phone: [facility] Comment on above: Patient Update; Alicia ent Question; Orders Start: 03-18-2023 End: 03-18-2023 ambulatory Zoraida Valle PA-C Work Phone: [facility] Comment on above: Chiari I malformatio n (HCC) (Primary Dx); Chiari malformation type I (HCC) Start: 03-18-2023 End: 03-18-2023 Telemedicine consultation with patient Zoraida Chris Valle PA-C Work Phone: [facility] Start: 03-05-2023 End: 03-05-2023 Patient encounter procedure Tristan Guallpa MD Work Phone: Neurology Comment on above: Chiari malformation type I (HCC) (Primary Dx); History of TMJ syndrome Start: 03-04-2023 End: 03-04-2023 ambulatory [facility] Start: 03-02-2023 Telephone encounter Tristan Guallpa MD Work Phone: Neurology Comment on above: Forms Start: 02-26-2023 End: 02-26-2023 [facility] Tristan Guallpa MD Work Phone: Neurology Comment on above: History of TMJ disor carlo (Primary Dx) Start: 02-22-2023 Telephone encounter Tristan Guallpa MD Work Phone: Neurology Comment on above: Forms Start: 02-04-2023 End: 02-05-2023 ambulatory Romy Barkley Facility:[facility] Start: 02-01-2023 Emergency department patient visit Mikal Garcia Facility:[facility] Start: 01-01-2023 Telephone encounter Tristan Guallpa MD Work Phone: Neurology Comment on above: Patient Update Start: 12-23-2022 End: 12-24-2022 Emergency department patient visit Silas Durant Facility:[facility] Start: 12-23-2022 End: 12-24-2022 Emergency department patient visit Silas Durant [facility] Start: 11-26-2022 End: 11-27-2022 ambulatory Amara Palacio Facility:[facility] Start: 11-07-2022 ambulatory Miriamdaily underwoodty:[id number] Start: 11-06-2022 End: 11-07-2022 Observation Trey Treadwell [facility] Start: 11-05-2022 End: 11-05-2022 Lab Drop off Erika Chris Lopeze [facility] Start: 10-27-2022 End: 10-27-2022 Patient encounter procedure Amara Palacio [facility] Start: 10-22-2022 End: 10-22-2022 Patient encounter procedure Amara Palacio [facility] Start: 09-01-2022 Letter encounter Miriamdaily Cavazos Work Phone: [facility] Start: 08-25-2022 End: 08-25-2022 Lab Drop off Padron SALAM [facility] Start: 07-30-2022 End: 07-30-2022 Patient encounter procedure Padron SALAM [facility] Start: 07-29-2022 End: 07-29-2022 Emergency department patient visit Mikal Garcia [facility] Start: 05-18-2022 End: 05-18-2022 ambulatory [facility] Facility:[facility] Start: 03-20-2022 End: 03-20-2022 Lab Drop off Padron SALAM [facility] Start: 03-19-2022 End: 03-19-2022 Patient encounter procedure Brooks Lamb MD Work Phone: Gastroenterology [place] Comment on above: Diarrhea of presumed infectious origin (Primary Dx) Start: 02-19-2022 End: 02-19-2022 Patient encounter procedure Amaraochoa Tovarmetz [facility] Start: 02-09-2022 End: 02-09-2022 Patient encounter procedure Padron SALAM [facility] Start: 02-02-2022 End: 02-02-2022 Patient encounter procedure Amara A Pia [facility] Start: 01-13-2022 End: 01-13-[address] DOCTOR HAN Facility:[facility] Start: 01-12-2022 End: 01-12-2022 Emergency department patient visit Pardeep Leblanc Sandro [facility] Start: 12-30-2021 End: 12-31-2021 ambulatory TERESA PATEL Facility:[facility] Start: 12-29-2021 End: 12-29-[address] ANTWAN GARCIA Facility:[facility] Start: 12-24-2021 End: 05-13-2022 Recurring Vito TOLBERTAM [facility] Start: 12-24-2021 End: 12-24-2021 Patient encounter procedure Padron SALAM [facility] Start: 12-23-2021 ambulatory TEREAS PATEL Facility: [facility] Start: 12-03-2021 End: 12-03-2021 Patient encounter procedure Amraaochoa Tovarmetz [facility] Start: 10-21-2021 ambulatory TERESA PATEL Facility: [facility] Start: 10-13-2021 End: 10-14-2021 Observation Nagi OLIVO [facility] Start: 10-09-2021 End: 10-12-2021 Evaluation and management of inpatient Lissettgonzález Treadwell [facility] Start: 10-03-2021 End: 10-03-2021 ambulatory TERESA DWIGHT Facility:[facility] Start: 09-27-2021 End: 09-27-[address] ANTWAN GARCIA Facility:[facility] Start: 09-09-2021 End: 09-09-[address] ANTWAN GARCIA Facility:[facility] Start: 05-19-2016 End: 05-23-2016 ambulatory MIRIAM CAVAZOS Facility:[facility] Procedures Date Procedure Procedure Detail Performing Clinician Start: 01-29-2025 Brncdilat rspse spmtry pre&post-brncdilat admn Franchesca Low MD Work Phone: Start: 01-03-2025 Esophagogastroduodenoscopy Saundra hutchins Start: 10-05-2024 Hemoglobin A1c/Hemoglobin.total in Blood Reuben Agrawal PA-C Work Phone: Start: 02-25-2024 ALL CBC WITH AUTO DIFF Solomon Sorensen DO Work Phone: Start: 11-15-2023 Microscopic observation [Identifier] in Cervix by Cyto stain Solomon Sorensen DO Work Phone: Start: 06-18-2023 Radex spine cervical 4 or 5 views Rukhsana Webb PULVERIZER FEEDER.PARENT PARTNER Work Phone: Start: 04-15-2023 Mri spinal canal cervical w/o contrast matrl Zoraida Valle PA-C Work Phone: Start: 08-25-2022 Colonoscopy Amara Palacio Start: 02-09-2022 Esophagogastroduodenoscopy Vito ROBERTSON Start: 10-09-2021 Esophagogastroduodenoscopy Trey Stephenson i Start: 07-05-2001 Rupture of anterior cruciate ligament of left knee (disorder) Trey Treadwell Plan of Treatment Date Care Activity Detail Author Start: 2035 Shingles (RZV) Vaccine (1 of 2) Shingles (RZV) Vaccine (1 of 2) [facility] Start: 02-12-2033 Urine microalbumin profile DTaP,Tdap,Td Vaccine (8 - Td or Tdap) [facility] Start: 11-14-2026 Screening for malignant neoplasm of cervix [facility] Start: 03-01-2026 Annual PCP Team Chronic Disease Visit Annual PCP Team Chronic Disease Visit [facility] Start: 01-26-2026 Annual PCP Team Chronic Disease Visit Annual PCP Team Chronic Disease Visit [facility] Start: 12-17-2025 Screening for malignant neoplasm of breast Mammogram Screening [facility] Start: 12-12-2025 BP Controlled (<130/80) BP Controlled (<130/80) [facility] Start: 10-05-2025 Annual PCP Team Chronic Disease Visit Annual PCP Team Chronic Disease Visit [facility] Start: 10-05-2025 Covid-19 Vaccine ( season) Covid-19 Vaccine ( season) [facility] Comment on above: Postponed from 03/05/2024 (Declined at t his time) Start: 06-06-2025 End: 06-06-2025 Patient encounter procedure 06/06/2025 10:30 AM EST Office Visit Gastroenterology [address] [place] [address] [place] [address] [place] [address] Nausea and vomiting, unspecified vomiting type [R11.2] Gastroenterology Comment on above: Nausea and vomiting, unspecified vomitin g type [R11.2] Start: 04-04-2025 Influenza vaccination Influenza Vaccine (#1) [facility] Start: 03-05-2025 Influenza vaccination [facility] Start: 01-29-2025 End: 01-29-2025 ambulatory Pulmonology Comment on above: SOB (shortness of breath) [R06.02] Start: 01-26-2025 End: 04-27-2025 Methylmalonate [Moles/volume] in Serum or Plasma [facility] Work Phone: Comment on above: Expected: 01/26/2025 (Approximate), Expi res: 04/27/2025 Start: 01-26-2025 End: 01-26-2025 Patient encounter procedure 01/26/2025 9:20 AM EDT Office Visit Internal Medicine [facility] [address] [place] [place] [address] Reuben Agrawal PA-C [address] [place] [address] follow-up from PT to discuss pain management. Referral to gastroenterology from hospital stay. Internal Medicine [facility] Comment on above: follow-up from PT to discuss pain manage ment. Referral to gastroenterology from hospital stay. Start: 01-26-2025 End: 01-26-2025 ambulatory Pulmonology Comment on above: SOB (shortness of breath) [R06.02] Start: 01-25-2025 End: 01-25-2025 Patient encounter procedure 01/25/2025 1:50 PM EDT Office Visit Cardiology [address] [facility] [place] [address] Kim Belt Picker [facility] [address] [place], [place] [id number] SOB (shortness of breath) [R06.02] Cardiology Comment on above: SOB (shortness of breath) [R06.02] Start: 01-25-2025 End: 01-25-2025 ambulatory 01/25/2025 1:00 PM EDT Results Only [facility] [address] [facility] [place] [address] Dennard [facility] Start: 01-11-2025 End: 04-12-2025 Natriuretic peptide.B prohormone N-Terminal [Mass/volume] in Serum or Plasma NT PRO BNP Lab Routine SOB (shortness of breath) Wheezing Expected: 01/11/2025, Expires: 04/12/2025 [facility] Comment on above: Expected: 01/11/2025, Expires: Start: 01-04-2025 End: 04-05-2025 25-hydroxyvitamin D3 [Mass/volume] in Serum or Plasma VITAMIN D 25 HYDROXY Lab Routine Vitamin D deficiency Expected: 01/04/2025, Expires: 04/05/2025 [facility] Work Phone: Comment on above: Expected: 01/04/2025, Expires: Start: 01-04-2025 End: 04-05-2025 Hepatitis C virus Ab [Presence] in Serum HEPATITIS C ANTIBODY IA WITH CONFIRMATION Lab Routine Special screening examination for viral disease Expected: 01/04/2025 (Approximate), Expires: 04/05/2025 [facility] Comment on above: Expected: 01/04/2025 (Approximate), Expi res: 04/05/2025 Start: 01-04-2025 End: 04-05-2025 Lipid 1996 panel - Serum or Plasma LIPID PANEL, FASTING Lab Routine Dyslipidemia Expected: 01/04/2025, Expires: 04/05/2025 [facility] Comment on above: Expected: 01/04/2025, Expires: Start: 01-04-2025 End: 01-04-2025 Patient encounter procedure Radiology Comment on above: SOB (shortness of breath) [R06.02] Start: 01-04-2025 End: 01-04-[address] [facility] [address] aleksandra Montiel Comment on above: Labs SOB (shortness of br eath) [R06.02] Start: 01-01-2025 Influenza vaccination Influenza Vaccine (#1) [facility] Comment on above: Postponed from 03/05/2024 (Declined at t his time) Start: 12-17-2024 End: 12-17-2024 Patient encounter procedure 12/17/2024 12:40 PM EDT Appointment [facility] Radiology Mammography [address] [place], [place] [id number] HE SCREENING W JUSTO [facility] Radiology Mammography Comment on above: HE SCREENING W [facility] Start: 12-12-2024 End: 03-13-2025 Creatinine and Glomerular filtration rate.predicted panel - Serum, Plasma or Blood CREATININE BLD Lab Routine SOB (shortness of breath) Wheezing Expected: 12/12/2024, Expires: 03/13/2025 [facility] Comment on above: Expected: 12/12/2024, Expires: Start: 12-12-2024 End: 12-12-2024 Patient encounter procedure 12/12/2024 8:00 AM EDT Office Visit Cardiology [address] [facility] [place] [address] Franchesca Low MD [address] [facility] [place] [address] Follow Up Cardiology Comment on above: Follow Up Start: 11-16-2024 End: 11-16-2024 Patient encounter procedure 11/16/2024 1:00 PM EDT Office Visit [facility] [address] [place] [phone] Jessica Che APRN-PARENT PARTNER [address] [place] [address] [facility] Start: 09-09-2024 Annual PCP Team Chronic Disease Visit Annual PCP Team Chronic Disease Visit [facility] Start: 09-04-2024 End: 09-04-2024 Patient encounter procedure 09/04/2024 10:40 AM EST Office Visit Internal Medicine [facility] [address] [place] [id number] Reuben Agrawal PA-C [address] [place] [address] Annual Internal Medicine [facility] Comment on above: Annual Start: 08-29-2024 End: 11-28-2024 25-hydroxyvitamin D3 [Mass/volume] in Serum or Plasma VITAMIN D 25 HYDROXY Lab Routine Neck pain Expected: 08/29/2024 (Approximate), Expires: 11/28/2024 [facility] Comment on above: Expected: 08/29/2024 (Approximate), Expi res: 11/28/2024 Start: 08-29-2024 End: 11-28-2024 CBC W Auto Differential panel - Blood COMPLETE BLOOD COUNT AND DIFFERENTIAL Lab Routine Routine general medical examination at a health care facility Expected: 08/29/2024 (Approximate), Expires: 11/28/2024 [facility] Work Phone: Comment on above: Expected: 08/29/2024 (Approximate), Expi res: 11/28/2024 Start: 08-29-2024 End: 11-28-2024 Comprehensive metabolic 2000 panel - Serum or Plasma COMPREHENSIVE METABOLIC PANEL Lab Routine Routine general medical examination at a health care facility Expected: 08/29/2024 (Approximate), Expires: 11/28/2024 [facility] Comment on above: Expected: 08/29/2024 (Approximate), Expi res: 11/28/2024 Start: 08-29-2024 End: 11-28-2024 Lipid 1996 panel - Serum or Plasma LIPID PANEL BASIC Lab Routine Routine general medical examination at a health care facility Expected: 08/29/2024 (Approximate), Expires: 11/28/2024 [facility] Comment on above: Expected: 08/29/2024 (Approximate), Expi res: 11/28/2024 Start: 08-29-2024 End: 11-28-2024 TSH W/REFLEX FT4 TSH W/REFLEX FT4 Lab Routine Routine general medical examination at a health care facility Expected: 08/29/2024 (Approximate), Expires: 11/28/2024 [facility] Comment on above: Expected: 08/29/2024 (Approximate), Expi res: 11/28/2024 Start: 08-03-2024 BP Controlled (<130/80) BP Controlled (<130/80) [facility] Start: 06-25-2024 BP Controlled (<130/80) BP Controlled (<130/80) [facility] Start: 06-09-2024 End: 06-09-2024 Patient encounter procedure 06/09/2024 3:30 PM EST Office Visit Cardiology [address] [place], [place] [phone] Franchesca Low MD [address] [place] [id number] 6 month f/u, rs from 01/30 Cardiology Comment on above: 6 month f/u, rs from 01/30 Start: 04-09-2024 Annual PCP Team Chronic Disease Visit Annual PCP Team Chronic Disease Visit [facility] Start: 03-09-2024 End: 03-09-2024 Patient encounter procedure 03/09/2024 10:10 AM EDT Office Visit [facility] [address] [phone] Jacklyn Stone PA [address] [place] [address] Arrived [facility] Comment on above: Arrived Start: 03-05-2024 COVID-19 Vaccine ( season) COVID-19 Vaccine ( season) [facility] Start: 03-05-2024 Covid-19 Vaccine ( season) Covid-19 Vaccine ( season) [facility] Start: 03-05-2024 Covid-19 Vaccine ( season) Covid-19 Vaccine ( season) [facility] Start: 03-05-2024 Influenza vaccination [facility] Start: 02-28-2024 End: 02-28-2024 Patient encounter procedure Radiology Comment on above: S/P cervical spinal fusion [Z98.1 6 month Post Op Foll ow Up Start: 02-25-2024 End: 02-25-2024 Patient encounter procedure 02/25/2024 9:30 AM EDT Procedure Visit [facility] Solomon Sorensen DO [address] [place] [address] [facility] Start: 02-09-2024 [facility] Start: 02-08-2024 End: 02-08-2024 Patient encounter procedure 02/08/2024 1:30 PM EDT Office Visit Cardiology [address] [facility] [address] Franchesca Low MD [address] [facility] [address] 6 month f/u, rs from 01/30 Cardiology Comment on above: 6 month f/u, rs from 01/30 Start: 02-04-2024 End: 02-04-2024 ambulatory 02/04/2024 4:20 PM EDT [facility] [address] [place] [phone] Joo Cruz MD [address] [place] [id number] add on per [place] [facility] Comment on above: add on per NE Start: 01-21-2024 End: 01-21-2024 ambulatory 01/21/2024 4:20 PM EDT [facility] [address] [place] [phone] Joo Cruz MD [address] [place] [id number] add on per [place] [facility] Comment on above: add on per NE Start: 08-15-2023 Hepatitis B Vaccine (3 of 3 - 19+ 3-dose series) Hepatitis B Vaccine (3 of 3 - 19+ 3-dose series) [facility] Start: 03-05-2023 Covid-19 Vaccine ( season) Covid-19 Vaccine ( season) [facility] Start: 03-05-2023 Influenza vaccination INFLUENZA (#1) [facility] Start: 08-29-2022 COVID-19 VACCINE (3 - Pfizer series) COVID-19 VACCINE (3 - Pfizer series) [facility] Start: 07-05-2022 DEPRESSION ASSESSMENT DEPRESSION ASSESSMENT [facility] Start: 04-04-2022 Influenza vaccination Influenza Vaccine (#1) [facility] Start: 03-19-2022 End: 05-19-2022 CBC panel - Blood by Automated count CBC Lab Routine Diarrhea of presumed infectious origin Expected: 03/19/2022, Expires: 05/19/2022 [facility] Work Phone: Comment on above: Expected: 03/19/2022, Expires: 2 Start: 03-19-2022 End: 05-19-2022 Comprehensive metabolic 2000 panel - Serum or Plasma COMP METABOLIC PANEL Lab Routine Diarrhea of presumed infectious origin Expected: 03/19/2022, Expires: 05/19/2022 [facility] Work Phone: Comment on above: Expected: 03/19/2022, Expires: 2 Start: 03-05-2022 Influenza vaccination INFLUENZA (#1) [facility] Start: 2015 HPV TESTING HPV TESTING [facility] Start: 2015 Screening for malignant neoplasm of cervix [facility] Start: 02-18-2012 HPV Vaccine (1 - 3-dose SCDM series) HPV Vaccine (1 - 3-dose SCDM series) [facility] Start: 02-18-2012 HPV Vaccine (optional start 27-45 years) HPV Vaccine (optional start 27-45 years) [facility] Start: 07-03-2009 PAP TESTING PAP TESTING [facility] Start: 07-03-2009 Screening for malignant neoplasm of cervix Pap Testing [facility] Start: 07-03-2007 Screening for malignant neoplasm of cervix Cervical Cancer Screening [facility] Start: 2006 Screening for malignant neoplasm of cervix [facility] Start: 02-18-2004 Hepatitis A (HAV) Vaccine (optional start 19+ years) Hepatitis A (HAV) Vaccine (optional start 19+ years) [facility] Start: 02-18-2004 Hepatitis B vaccination Hepatitis B (HBV) Vaccine (1 of 3 - 19+ 3-dose series) [facility] Start: 02-18-2004 Urine microalbumin profile [facility] Start: 2003 BP Controlled (<130/80) BP Controlled (<130/80) [facility] Start: 2003 HEPATITIS C SCREENING HEPATITIS C SCREENING [facility] Start: 2003 Hepatitis C screening [facility] Start: 2003 Tetanus + diphtheria + acellular pertussis vaccine (product) Tdap Booster [facility] Start: 02-18-2000 HIV screening HIV Test [facility] Start: 1997 Adult depression screening assessment DEPRESSION SCREENING [facility] Start: 1991 Pneumococcal vaccination [facility] Start: 1985 COVID-19 VACCINE (#1) COVID-19 VACCINE (#1) [facility] Start: 1985 HEPATITIS B (1 of 3 - 3-dose series) HEPATITIS B (1 of 3 - 3-dose series) [facility] Start: 1985 Hepatitis B Vaccine (1 of 3 - 3-dose series) Hepatitis B Vaccine (1 of 3 - 3-dose series) [facility] Start: 1985 [facility] [Mass/m ass] in Stool CALPROTECTIN,FECAL Lab Routine Diarrhea of presumed infectious origin Ordered: 03/19/2022 [facility] Work Phone: Comment on above: Ordered: 03/19/2022 Clostridioides diffi cile toxin genes [Presence] in Stool by SMAAN with probe detection C. DIFFICILE PCR Lab Routine Diarrhea of presumed infectious origin Ordered: 03/19/2022 [facility] Work Phone: Comment on above: Ordered: 03/19/2022 End: 07-31-2024 Ct cervical spine w/o contrast material CT CERVICAL SPINE WO IVCON Radiology Routine Spinal stenosis of cervical region 1 Occurrences starting 07/02/2023 until 07/31/2024 [facility] Work Phone: Comment on above: 1 Occurrences starting 07/02/2023 until 07/31/2024 End: 2026 CT Heart and Coronary arteries for calcium scoring WO contrast CT CALCIUM SCORING SELF PAY Radiology Routine Encounter for screening for cardiovascular disorders Mixed hyperlipidemia Palpitations 1 Occurrences starting 01/18/2025 until 2026 [facility] Work Phone: Comment on above: 1 Occurrences starting 01/18/2025 until 2026 End: 01-11-2026 CT-FRACTIONAL FLOW RESERVE CT-FRACTIONAL FLOW RESERVE Radiology Routine SOB (shortness of breath) Wheezing 1 Occurrences starting 12/12/2024 until 01/11/2026 [facility] Comment on above: 1 Occurrences starting 12/12/2024 until 01/11/2026 End: 01-11-2026 CTA Heart and Coronary arteries W contrast IV CTA CORONARY W IVCON Radiology Routine SOB (shortness of breath) Wheezing 1 Occurrences starting 12/12/2024 until 01/11/2026 [facility] Comment on above: 1 Occurrences starting 12/12/2024 until 01/11/2026 End: 11-04-2025 DBT Breast - bilateral screening HE SCREENING W JUSTO Radiology Routine Screening mammogram, encounter for 1 Occurrences starting 10/05/2024 until 11/04/2025 [facility] Comment on above: 1 Occurrences starting 10/05/2024 until 11/04/2025 DBT Breast - bilater al screening HE SCREENING W JUSTO Radiology Routine Screening mammogram, encounter for 12/17/2024 12:57 PM EDT [facility] Work Phone: ECG COMPLETE ECG COMPLETE ECG Routine SOB (shortness of breath) Wheezing Ordered: 12/12/2024 [facility] Work Phone: Comment on above: Ordered: 12/12/2024 End: 04-09-2024 Echocardiography ECHO Cardiology Routine Abnormal EKG 1 Occurrences starting 04/09/2023 until 04/09/2024 [facility] Work Phone: Comment on above: 1 Occurrences starting 04/09/2023 until 04/09/2024 End: 12-12-2025 Echocardiography ECHO Cardiology Routine SOB (shortness of breath) Wheezing 1 Occurrences starting 12/12/2024 until 12/12/2025 [facility] Comment on above: 1 Occurrences starting 12/12/2024 until 12/12/2025 Gastrointestinal pathogens panel - Stool by Culture STOOL CULTURE/EIA Microbiology Routine Diarrhea of presumed infectious origin Ordered: 03/19/2022 [facility] Work Phone: Comment on above: Ordered: 03/19/2022 Giardia lamblia+Cryptosporidium sp Ag [Presence] in Stool by Immunoassay CRYPTOSPORIDIUM AND GIARDIA ANTIGENS BY EIA Microbiology Routine Diarrhea of presumed infectious origin Ordered: 03/19/2022 [facility] Work Phone: Comment on above: Ordered: 03/19/2022 End: 01-11-2026 LUNG DIFFUSION CAPACITY (DLCO) LUNG DIFFUSION CAPACITY (DLCO) PFT Routine SOB (shortness of breath) Wheezing 1 Occurrences starting 12/12/2024 until 01/11/2026 [facility] Comment on above: 1 Occurrences starting 12/12/2024 until 01/11/2026 End: 04-16-2024 Mri spinal canal cervical w/o contrast matrl MRI CERVICAL SPINE WO IVCON Radiology Routine Chiari I malformation (HCC) 1 Occurrences starting 03/18/2023 until 04/16/2024 [facility] Work Phone: Comment on above: 1 Occurrences starting 03/18/2023 until 04/16/2024 SPINE INTERVENTION PROCEDURE SPINE INTERVENTION PROCEDURE Procedures Routine Cervicalgia 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 Radiculopathy, cervical region Ordered: 06/18/2023 [facility] Work Phone: Comment on above: Ordered: 06/18/2023 End: 01-11-2026 SPIROMETRY - BASELINE AND POST DILATOR SPIROMETRY - BASELINE AND POST DILATOR PFT Routine SOB (shortness of breath) Wheezing 1 Occurrences starting 12/12/2024 until 01/11/2026 [facility] Comment on above: 1 Occurrences starting 12/12/2024 until 01/11/2026 XR Cervical spine AP and Lateral XR CERV GENERAL 2V AP/LAT Radiology Routine Cervical spinal stenosis Pre-op testing 11/01/2023 3:18 PM EDT [facility] Work Phone: End: 02-15-2025 XR Cervical spine AP and Lateral XR CERV GENERAL 2V AP/LAT Radiology Routine 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) 1 Occurrences starting 01/17/2024 until 02/15/2025 [facility] Work Phone: Comment on above: 1 Occurrences starting 01/17/2024 until 02/15/2025 XR Cervical spine AP and Lateral XR CERV GENERAL 2V AP/LAT Radiology Routine 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) 08/04/2024 3:25 PM EST [facility] Work Phone: End: 01-11-2026 XR Chest PA and Lateral XR CHEST 2V FRONTAL/LAT Radiology Routine SOB (shortness of breath) Wheezing 1 Occurrences starting 12/12/2024 until 01/11/2026 [facility] Comment on above: 1 Occurrences starting 12/12/2024 until 01/11/2026 [facility] Immunizations Immunization Date Immunization Notes Care Provider [facility] 06-17-2023 hepatitis B vaccine, adult dosage Joo Cruz MD Work Phone: [facility] 03-16-2023 hepatitis B vaccine, adult dosage Joo Cruz MD Work Phone: [facility] 02-14-2023 Influenza, injectable, Madin Marian Canine Kidney, preservative free, quadrivalent Joo Cruz MD Work Phone: [facility] 02-14-2023 influenza virus vaccine, unspecified formulation Lloyd Mcconnell APRN.PARENT PARTNER Work Phone: [facility] 02-12-2023 hepatitis B vaccine, adult dosage Joo Cruz MD Work Phone: [facility] 02-12-2023 tetanus toxoid, reduced diphtheria toxoid, and acellular pertussis vaccine, adsorbed Joo Cruz MD Work Phone: [facility] 07-04-2022 SARS-CoV-2 mRNA (ygabrmkyudv-ssau-brv belkis) vaccine Vito ROBERTSON [facility] Comment on above: Result Comment: 2022: TPVALL 06-13-2022 SARS-CoV-2 mRNA (moszfuxbcvj-jotm-lvw belkis) vaccine Vito ROBERTSON [facility] Comment on above: Result Comment: 2022: TPVALL 02-03-2011 tetanus toxoid, reduced diphtheria toxoid, and acellular pertussis vaccine, adsorbed Trey Treadwell [facility] Comment on above: Reason for Medicatio n: Other (see comment) Reason for Medicatio n: Other (see comment) 09-09-2010 influenza virus vaccine, split virus (incl. purified surface antigen) Elizabeth Piedra Other [employer] Other 09-09-2010 influenza virus vaccine, unspecified formulation DO Solomon Sorensen Work Phone: [facility] 02-14-1997 measles, mumps and rubella virus vaccine Padron SALAM [facility] 02-07-1990 diphtheria, tetanus toxoids and pertussis vaccine Joo Cruz MD Work Phone: [facility] 11-07-1989 trivalent poliovirus vaccine, live, oral Joo Cruz MD Work Phone: [facility] 04-24-1987 haemophilus influenzae type b vaccine, conjugate unspecified formulation Joo Cruz MD Work Phone: [facility] 04-24-1987 Hib, unspecified formulation Padron SALAM [facility] 01-22-1987 diphtheria, tetanus toxoids and pertussis vaccine Joo Cruz MD Work Phone: [facility] 11-19-1986 trivalent poliovirus vaccine, live, oral Joo Cruz MD Work Phone: [facility] 06-18-1986 measles, mumps and rubella virus vaccine Padron SALAM [facility] 1985 diphtheria, tetanus toxoids and pertussis vaccine Joo Cruz MD Work Phone: [facility] 1985 diphtheria, tetanus toxoids and pertussis vaccine Joo Cruz MD Work Phone: [facility] 1985 trivalent poliovirus vaccine, live, oral Joo Cruz MD Work Phone: [facility] 1985 diphtheria, tetanus toxoids and pertussis vaccine Joo Cruz MD Work Phone: [facility] 1985 trivalent poliovirus vaccine, live, oral Joo Cruz MD Work Phone: [facility] NEGATED: Highlighted row has not occurred!03-19-2022 influenza virus vaccine, unspecified formulation Vito ROBERTSON [facility] NEGATED: Highlighted row has not occurred!02-19-2022 influenza virus vaccine, unspecified formulation Amara Palacio [facility] Payers Date Payer Category Payer Medicaid HMO [id number] 2016 Unknown [employer] [id number] 2016-Present [id number] 2014 Medicaid [id number] 1985 Unknown [id number] 2.16.840.1.279137.3.579.2.732 1985 Unknown [id number] 2.16.840.1.570258.3.579.2.593 1985 Unknown [id number] 2.16.840.1.577892.3.579.2.593 1985 Unknown [id number] 2.16.840.1.529936.3.579.2.593 1985 Unknown [id number] 2.16.840.1.357028.3.579.2.59 1985 Unknown [id number] 2.16.840.1.858948.3.579.2.593 1985 Unknown [id number] 2.16.840.1.660499.3.579.2.593 1985 Unknown [id number] 2.16.840.1.730906.3.579.2.593 1985 Unknown [id number] 2.16.840.1.501878.3.579.2.593 1985 Unknown [id number] 2.16.840.1.253932.3.579.2.593 1985 Unknown [id number] 2.16.840.1.710209.3.579.2.356 1985 Unknown [id number] 2.16.840.1.296989.3.579.2.72 1985 Unknown [id number] 2.16.840.1.735219.3.579.2.72 1985 Unknown [id number] 2.16.840.1.815163.3.579.2.72 1985 Unknown [id number] 2.16.840.1.915158.3.579.2.72 1985 Unknown [id number] 2.16.840.1.131513.3.579.2.72 1985 Unknown [id number] 2.16.840.1.734494.3.579.2.125 1985 Unknown [id number] 2.16.840.1.711925.3.579.2.125 1985 Unknown [id number] 2.16.840.1.289107.3.579.2.125 1985 Unknown [id number] 2.16.840.1.111606.3.579.2.1259 1985 Unknown [id number] 2.16.840.1.768501.3.579.2.72 1985 Unknown [id number] 2.16.840.1.131445.3.579.2.727 1985 Unknown [id number] 2.16.840.1.828111.3.579.2.727 1959 Medicaid [id number] 1959 Self-pay Unknown [id number] 2.16.840.1.680761.3.579.2.531 Unknown [id number] 2.16.840.1.199389.3.579.2.531 Social History Date Type Detail Facility Start: 03-20-2020 End: 08-04-2024 Tobacco smoking status Ex-smoker (finding) [facility] Comment on above: Patient vapes 1 cart erage a day quit over a month ag o Start: 12-21-2022 End: 01-15-2023 Sex Assigned At Female [facility] Start: 11-13-2021 Tobacco smoking status Heavy t obacco smoker (finding) [facility] Comment on above: Patient vapes 1 cart erage a day Start: 06-05-2012 Tobacco smoking status Never [facility] Comment on above: quit over a month ag o Start: 07-12-2003 End: 07-12-2023 History of tobacco use Current smoker [facility] Start: 07-12-2003 End: 07-12-2023 History of tobacco use Cigarette Smoker [facility] Start: 03-19-2022 End: 01-15-2023 Cigarettes smoked current (pack per day) - Reported 0.5 [facility] Start: 03-19-2022 End: 08-04-2024 Tobacco use and exposure Smokeless tobacco non-user [facility] Start: 03-19-2022 End: 01-26-2025 Alcohol intake Current drinker of alcohol (finding) [facility] Start: 1985 Sex Assigned At Not on file [facility] Start: 03-09-2022 End: 03-19-2022 Exposure to SARS-CoV-2 (event) Not sure [facility] Start: 05-02-2016 End: 04-07-2023 Tobacco smoking status NHIS Smokes tobacco daily [facility] Work Phone: Start: 05-02-2016 Alcohol Comment rare/social [facility] Start: 1985 Sex Assigned At [facility] Start: 03-18-2023 Gender identity Identifies as female gender (finding) [facility] Start: 04-08-2023 Sexual orientation Bisexual (finding ) [facility] Has the [employer], or [employer] threatened to shut off services in your home in past 12Mo Yes [facility] Are you now , , , , never or living with a partner? Never [facility] How often to you hav e a drink containing alcohol? 2-4 times a month [facility] How hard is it for y ou to pay for the very basics like food, housing, medical care, and heating Very hard [facility] Do you feel stress - tense, restless, nervous, or anxious, or unable to sleep at night because your mind is troubled all the time - these days [OSQ] Very much [facility] (I/We) worried wheth er (my/our) food would run out before (I/we) got money to buy more. Often true [facility] At any time in the p ast 12 months, were you homeless or living in residential [including now]? No [facility] Start: 06-22-2023 Sexual orientation Choose not to dis close [facility] Start: 03-24-2016 End: 09-23-2018 Sex Female (finding) [facility] Start: 03-02-2023 [facility] Start: 02-09-2024 End: 03-09-2024 Alcoholic beverage intake Lifetime non-drinker (finding) [facility] Start: 03-02-2023 Alcohol Comment caffeine: 2-3 cups per day [facility] How many standard drinks containing alcohol do you have on a typical day? 3 or 4 [facility] How often do you hav e 6 or more drinks on 1 occasion? Less than monthly [facility] if ever smoked [facility] Work Phone: Sexual Orientation [facility] Start: 05-23-2016 Details of drug misu se behavior Misuses drugs (finding) [facility] Start: 05-23-2016 Details of drug misu se behavior Cannabis (substance) [facility] Medical Equipment Procedure Code Equipment Code [...] 4d 6m m Spinal Bone Plug - [id number] Start: 08-24-2023 [place] Plate, 1 Level, Sz 18mm [id number] Start: 08-24-2023 Nephi Self Start ing Variable Screw Size 4mm X 12mm [id number] Start: 08-24-2023 Unknown Unknown 10/09/21 Non Biological Unknown FDA Start: 10-09-2021 FDA Start: 10-09-2021 Unknown Unknown 10/09/21 Non Biological Unknown FDA Start: 10-09-2021 FDA Start: 10-09-2021 Functional Status Date Assessment Result Facility 10-05-2024 Total score [AUDIT-C] 4 10/06/19 25 10:07 AM EDT User, Court [facility] 10-05-2024 Within the last year , have you been humiliated or emotionally abused in other ways by your partner or ex-partner? No 10/05/2024 10:07 AM EDT User, Court [facility] 10-05-2024 Within the last year , have you been afraid of your partner or ex-partner? No 10/05/2024 10:07 AM EDT User, Naseemtoddt [facility] 10-05-2024 Within the last year , have you been raped or forced to have any kind of sexual activity by your partner or ex-partner? No 10/05/2024 10:07 AM EDT User, Myctoddt [facility] 10-05-2024 Within the last year , have you been kicked, hit, slapped, or otherwise physically hurt by your partner or ex-partner? No 10/05/2024 10:07 AM EDT User, Rachnat [facility] 10-05-2024 How often to you hav e a drink containing alcohol? 2-4 times a month 10/05/2024 10:07 AM EDT UserCourt 2-4 times a month [facility] 10-05-[address] inks containing alcohol do you have on a typical day? 3 or 4 10/05/2024 10:07 AM EDT User, Rachnat 3 or 4 [facility] 10-05-2024 How often do you hav e 6 or more drinks on 1 occasion? Less than monthly 10/05/2024 10:07 AM EDT User, Mychart Less than monthly [facility] 08-25-2023 Are you deaf, or do you have serious difficulty hearing No 08/25/2023 1:46 PM Sana Wolfe RN No [facility] 08-25-2023 Are you blind, or do you have serious difficulty seeing, even when wearing glasses No 08/25/2023 1:46 PM Sana Wolfe RN No [facility] 08-25-2023 Do you have serious difficulty walking or climbing stairs No 08/25/2023 1:46 PM Sana Wolfe RN No [facility] 08-25-2023 Do you have difficul ty dressing or bathing No 08/25/2023 1:46 PM Sana Wolfe RN No [facility] 08-25-2023 Because of a physica l, mental, or emotional condition, do you have difficulty doing errands alone such as visiting a physician's office or shopping No 08/25/2023 1:46 PM Sana Wolfe RN No [facility] 12-23-2022 Functional Status N/A [facility] 11-06-2022 Functional Status N/A [facility] 11-06-2022 Functional Status [facility] 10-22-2022 Functional Status N/A [facility] 07-30-2022 Functional Status N/A [facility] 07-29-2022 Functional Status Yes [facility] 03-19-2022 Functional Status N/A [facility] 02-19-2022 N/A [facility] 02-09-2022 Functional Status N/A [facility] 02-02-2022 Functional Status N/A [facility] 01-12-2022 Functional Status N/A Joce Ambrosio [facility] 12-24-2021 Functional Status N/A [facility] 05-04-2016 Are you deaf, or do you have serious difficulty hearing No 05/04/2016 7:41 AM Isela Russell [facility] Work Phone: 05-04-2016 Are you blind, or do you have serious difficulty seeing, even when wearing glasses No 05/04/2016 7:41 AM Isela Russell No [facility] 05-04-2016 Do you have serious difficulty walking or climbing stairs No 05/04/2016 7:41 AM Isela Russell No [facility] 05-04-2016 Do you have difficul ty dressing or bathing No 05/04/2016 7:41 AM Isela Russell [facility] 05-04-2016 Because of a physica l, mental, or emotional condition, do you have difficulty doing errands alone such as visiting a physician's office or shopping No 05/04/2016 7:41 AM Isela Russell [facility] Mental Status Date Assessment Result Facility 08-25-2023 Because of a physica l, mental, or emotional condition, do you have serious difficulty concentrating, remembering, or making decisions No 08/25/2023 1:46 PM Sana Wolfe RN No [facility] 05-04-2016 Because of a physica l, mental, or emotional condition, do you have serious difficulty concentrating, remembering, or making decisions No 05/04/2016 7:41 AM Is[facility] Clinical Notes 01-25-2003 to 03-09-2025 Telephone Encounter - Godfrey Martin MA - 03/09/2025 3:12 PM EDTTelephone Encounter - Godfrey Martin MA - 03/09/2025 3:12 PM Reuben Vivar PA-C - 03/01/2025 12:44 PM EDT Note Date & Type Note Facility 03-09-2025 Telephone encounter Note Patient requesting refills as follows: Requested Prescriptions Pending Prescriptions Disp Refills pantoprazole DR (PROTONIX) 40 mg tablet 30 tablet 1 Sig: Take 1 tablet by mouth once daily. Last appointment: 03/01/2025 Next scheduled appointment: Visit date not found Godfrey Martin MA March 09, 2025 3:13 PM [facility] 03-09-2025 Miscellaneous Notes Patient requesting refills as follows: Requested Prescriptions Pending Prescriptions Disp Refills pantoprazole DR (PROTONIX) 40 mg tablet 30 tablet 1 Sig: Take 1 tablet by mouth once daily. Last appointment: 03/01/2025 Next scheduled appointment: Visit date not found Godfrey Martin MA March 09, 2025 3:13 PM documented in this encounter [facility] 03-01-2025 Note HNO ID: [id number] Author: REUBEN AGRAWAL PA-C Service: ? Author Type: Physician Supervisor [employer] Type: Progress Notes Filed: 03/01/2025 12:47 Note Text: Subjective The patient is a 40-year-old female with chronic neck and back pain, presenting for evaluation and management of worsening myofascial neck and upper back pain with radicular symptoms into the shoulders and arms. Neck and Back Pain: - Ladi Byers reports worsening pain in the back, [...] management strategies. Reuben Agrawal PA-C Recording using ambient [employer] software for draft documentation of the visit was discussed with the patient/authorized customer service representative teacher; all questions welcomed and answered. Patient/authorized customer service representative teacher agreed to proceed [facility] 03-01-2025 History of Presen t illness Narrative Subjective The patient is a 40-year-old female with chronic neck and back pain, presenting for evaluation and management of worsening myofascial neck and upper back pain with radicular symptoms into the shoulders and arms. Neck and Back Pain: - Ladi Byers reports worsening pain in the back, [...] pressure 108/74, pulse (!) 56, temperature 36.4 C (97.6 F), height 152.4 cm (5'), weight 81.6 kg [...] Psychiatric: Mood and Affect: Mood normal. Assessment & Plan 1. Upper back pain (M54.9) 2. [...] management strategies. Reuben Agrawal PA-C Recording using [employer] software for draft documentation of the visit was discussed with the patient/authorized customer service representative teacher; all questions welcomed and answered. Patient/authorized customer service representative teacher agreed to proceed documented in this encounter [facility] 03-01-2025 Instructions Reuben Agrawal PA-C - 03/01/2025 11:27 AM EDT Images from the original note were not included. - Increase your gabapentin by adding your usual two-pill dose at bedtime; continue your current morning and noon gabapentin doses as before. - Continue taking Celebrex (celecoxib) each morning and your muscle relaxer as previously prescribed. - [facility] they will contact you with pickup instructions and dosing details. You'll start low - and titrate up to 4.5mg to take daily - An order for a TENS unit (electrical stimulator) has been placed through [facility]; expect their call within 1-2 days to arrange delivery and setup. - Check with your insurance about coverage for acupuncture treatments and consider scheduling sessions if covered. - You may try an acupuncture mat (the spiky mat available online) as an additional at-home therapy. Unsure if it'll help. - If you d like to resume physical therapy or occupational therapy for your neck and back, contact our office to request a referral. documented in this encounter [facility] 02-19-2025 Telephone encounter Note Received updated Rx list from [facility]. Updated psych medication Reuben Agrawal PA-C [facility] 02-19-2025 Miscellaneous Notes Received updated Rx list from [facility]. Updated psych medication Rebuen Agrawal PA-C documented in this encounter [facility] 02-05-2025 Note HNO ID: [id number] Author: MARISOL HANNAH RN Service: ? Author Type: Registered Nurse Type: Progress Notes Filed: 02/05/2025 14:56 Note Text: Progress note printed and faxed to Bre Tineo CNP at [phone] as requested. Transmission received with request for their office to fax our office an updated medication list [facility] 01-26-2025 Telephone encounter Note Requested. Godfrey Martin MA January 26, 2025 3:13 PM [facility] 01-26-2025 Miscellaneous Notes Requested. Godfrey Martin MA January 26, 2025 3:13 PM Please request records from [facility] regarding recent hospital stay (01/2025). I can see in careeverywhere some information including labs - but I can't see her CT report(s) or EGD report(s) which I need. Reuben Agrawal PA-C documented in this encounter [facility] 01-26-2025 Telephone encounter Note Please request records from [facility] regarding recent hospital stay (01/2025). I can see in careeverywhere some information including labs - but I can't see her CT report(s) or EGD report(s) which I need. Reuben Agrawal PA-C [facility] 01-26-2025 Telephone encounter Note Patient seen today. Does she need another appt since this wasn't discussed? Godfrey Martin MA January 26, 2025 11:27 AM [facility] 01-26-2025 Miscellaneous Notes Patient seen today. Does she need another appt since this wasn't discussed? Godfrey Martin MA January 26, 2025 11:27 AM documented in this encounter [facility] 01-26-2025 Instructions Reuben Agrawal PA-C - 01/26/2025 10:20 AM EDT [facility] Many physicians, nurse practitioners and physician assistants General gastroenterology, procedures as well as specialty care including hepatology Phone number: [phone] Address: [address] [place] [address] [email or web address] documented in this encounter [facility] 01-26-2025 Note HNO ID: [id number] Author: REUBEN AGRAWAL PA-C Service: ? Author Type: Physician Supervisor [employer] Type: Progress Notes Filed: 01/27/2025 20:36 Note Text: Subjective Ladi Byers is a 39 year old female. [...] pain: She recently was seen at the [facility] for N/V/Epigastric pain then went for evaluation at [facility] ER for same symptoms. At [facility], she was admitted and had CT [...] (per pt report). Will request records from [facility] - I'm able to see the labs but not the radiology/CTs or EGD. Recommend d/c of Marijuana use - concern for Marijuana-induced hyperemesis syndrome. Recommend appt with GI - may want further testing for FUNCTIONAL cause such as gastroparesis. Fatty liver Request records from [facility] particularly imaging. I do see reference to fatty liver in the notes I can see from [facility]. Discussed this can be addressed at appt [...] (pt acknowledges uncontrolled) prior to memory testing. Reuben Agrawal PA-C [facility] 01-26-2025 History of Presen t illness Narrative Subjective Ladi Byers is a 39 year old female. [...] pain: She recently was seen at the [facility] for N/V/Epigastric pain then went for evaluation at [facility] ER for same symptoms. At [facility], she was admitted and had CT [...] Objective BP 103/73 Pulse 63 Temp 36.1 C (97 F) (Temporal) Ht 154 cm (5' 0.64 ) Wt 80.7 kg (177 lb 14.6 oz) LMP 07/19/2023 (Exact Date) SpO2 98% BMI 34.02 kg/m Physical Exam HENT: Head: Normocephalic and atraumatic. [...] is tearful (when discussing her memory). Assessment & Plan Nausea and vomiting, unspecified vomiting type [...] (pt acknowledges uncontrolled) prior to memory testing. Reuben Agrawal PA-C documented in this encounter [facility] 01-18-2025 Telephone encounter Note Spoke to pt on phone, below information given per Dr Low Please discuss with patient about calcium score instead, and options to do at [facility] with copay $99 vs [facility]. Order placed in chart. Pt prefers to have done at , pt supplied fax number of [phone] Order faxed as requested Above number provided is not a fax # Called and faxed to [phone] Confirmed fax was received [facility] 01-18-2025 Miscellaneous Notes Spoke to pt on phone, below information given per Dr Low Please discuss with patient about calcium score instead, and options to do at [facility] with copay $99 vs [facility]. Order placed in chart. Pt prefers to have done at , pt supplied fax number of [phone] Order faxed as requested Above number provided is not a fax # Called and faxed to [phone] Confirmed fax was received Please discuss with patient about calcium score instead, and options to do at [facility] with copay $99 vs [facility]. Order placed in chart. Franchesca Low MD Ladi is calling Franchesca Low MD today because her CT scan was denied by her insurance Please advise Patient has been identified by name and birthdate. Duration of symptoms: N/A Person calling: self Call patient at: at home [phone] (home) [phone] (cell) Was an appointment scheduled: No Closing statement: Prior Authorization Calls: Thank you for calling [facility], your call will be returned within the next 24 hours or next business day. Nury Baldwin Pss documented in this encounter [facility] 01-18-2025 Telephone encounter Note Please discuss with patient about calcium score instead, and options to do at [facility] with copay $99 vs [facility]. Order placed in chart. Franchesca Low MD [facility] 01-18-2025 Telephone encounter Note Neuro SPINE CARE COORDINATION QUICK NOTE SURGERY DATE: ACDF C6/7 on (Date: 08/24/2023) Last fill on 10-23-24 - refill of Neurontin 100 ( take 2 BID ) requested. Routed to [facility] for review - refill [facility] Work Phone: 01-18-2025 Miscellaneous Notes Neuro SPINE CARE COORDINATION QUICK NOTE SURGERY DATE: ACDF C6/7 on (Date: 08/24/2023) Last fill on 10-23-24 - refill of Neurontin 100 ( take 2 BID ) requested. Routed to [facility] for review - refill documented in this encounter [facility] 01-18-2025 Telephone encounter Note Ladi is calling Franchesca Low MD today because her CT scan was denied by her insurance Please advise Patient has been identified by name and birthdate. Duration of symptoms: N/A Person calling: self Call patient at: at home [phone] (home) [phone] (cell) Was an appointment scheduled: No Closing statement: Prior Authorization Calls: Thank you for calling [facility], your call will be returned within the next 24 hours or next business day. Nury Bocanegra [facility] 01-18-2025 Telephone encounter Note The following approved medication requests have been transmitted electronically. Requested Prescriptions Pending Prescriptions Disp Refills cetirizine (ZYRTEC) 10 mg tablet 90 tablet 1 Sig: Take 1 tablet by mouth daily at bedtime. Paula Schmidt APRN.CNP [facility] 01-18-2025 Miscellaneous Notes The following approved medication requests have been transmitted electronically. Requested Prescriptions Pending Prescriptions Disp Refills cetirizine (ZYRTEC) 10 mg tablet 90 tablet 1 Sig: Take 1 tablet by mouth daily at bedtime. Paula Schmidt APRN.CNP Last ov:10/05/24 Next ov:none Patient requests via MyChart refills as follows: Requested Prescriptions Pending Prescriptions Disp Refills cetirizine (ZYRTEC) 10 mg tablet 90 tablet 1 Sig: Take 1 tablet by mouth daily at bedtime. Please review and advise. Nilda Herndon MA documented in this encounter [facility] 01-18-2025 Telephone encounter Note Last ov:10/05/24 Next ov:none Patient requests via MyChart refills as follows: Requested Prescriptions Pending Prescriptions Disp Refills cetirizine (ZYRTEC) 10 mg tablet 90 tablet 1 Sig: Take 1 tablet by mouth daily at bedtime. Please review and advise. Nilda Herndon MA [facility] 01-04-2025 Note Consultation Note Patient: LADI BYERS Age: 39 years Sex: Female : 1985 Associated Diagnoses: None Author: Milton Patton MD Subjective Tolerated liquid diet, advance to regular [...] alcohol, consider FibroScan further workup in clinic [facility] Comment on above: Result Comment: Elec tronically Signed By: Milton Patton MD\.br\Date and Time Signed: 01/04/25 15:33 EDT 01-04-2025 Evaluation + Plan note Extrac marlyn from: Title:Discharge Note Author:Aravind Douglass DO Date:01/04/25 Discharge To, Anticipated II - Home independently Discharged to - Home independently Transported by, Anticipated - Family Prescriptions Bentyl 10 mg Cap, 10 mg= [...] Oral, Bedtime Vyvanse 20 mg oral capsule With When Contact Information Bereket JUAREZ, Kylee Roblero, GAS, MED Within [address] to [address] [place] [address], [address] [place] [address]- [phone] Additional Instructions: Call for followup appointment for outpatient gastric emptying study TERESA PATEL [address] [facility] [place] [address]- [phone] Business (1) Additional Instructions: Cannabinoid Hyperemesis Syndrome Extracted from: Title:Progress Note * Author:Almas aPtton MD Date:01/04/25 Impression and Plan This is a 39-year-old [...] alcohol, consider FibroScan further workup in clinic Extracted from: Title:ANES Post-operative Note - General Author: Kartik Chavez Jr., DO Date:01/03/25 Plan Transfer/Discharge: Transfer/Discharge Discharge when meets criteria ( From PACU to Ambulatory Surgery Unit, and To home ). Extracted from: Title:Inpatient Consultation -Floor Code* Author:Milton Patton MD Date:01/03/25 Impression and Plan This is a 39-year-old [...] alcohol, consider FibroScan further workup in clinic Extracted from: Title:ANES Pre-operative Note - Endo Author:Kartik Wan Jr., DO Date:01/03/25 Plan [place] [employer]hesi[employer] (ASA) physical status classification: Class II. Anesthetic Preoperative Plan: Anesthesia General, and -TIVA. Extracted from: Title:Admission H & P Author:Saundra Blanc MD Date:01/03/25 39yo female with a PMH gastr ic ulcers, GERD, bipolar affective disorder, daily marijuana [...] Had negative CT A/P on 12/26 at [facility]. 3. Dehydration (E86.0: Dehydration) Due to [...] ulcer disease) Protonix. GI consult for EGD Addendum by Trenton Douglass DO, am on January 03, 2025 09:58:28 EDT Separate progress note was not done due to patient was admitted after midnight. I did see patient patient independently this morning. Patient was resting in bed. Patient had stated pain had improved with medication. Patient scheduled for EGD later today. Agree with assessment and plan as above. Extracted from: Title:ED Note Author:Lauren TRONCOSO, Brian Quinones te:01/02/25 1. Intractable nausea and vo miting (R11.2: Nausea with vomiting, unspecified) 2. Marijuana [...] Beta Hcg Qual UA with Cult Rflx [facility] [id number] [facility] Understand[facility] Education Yes [facility] Education Video After a Hospital Stay: Managing Appointments [facility] Learning Participants [facility]07-03-2025 [facility] Learning Participants [facility] Education Video Avoiding Infections in the Hospital [facility] Understands Education [facility] Hospital Discharge instructions Patient Education 01/04/2025 11:19:30 Cannabinoid Hyperemesis Syndrome Cannabinoid Hyperemesis Syndrome Cannabinoid hyperemesis syndrome (CHS) is a condition that causes repeated nausea, vomiting, and abdominal pain after long-term use of marijuana (cannabis). People with CHS typically use marijuana 3 5 times a day for many years before [...] get worse over time. Symptoms may include: Frequent nausea, especially early in the morning. Vomiting. This can become severe. Abdominal pain. Feeling very tired (lethargic). Headaches. CHS may go away and come back many times (recur). People may not have symptoms or may otherwise be healthy in between CHS episodes. Taking hot showers can relieve the symptoms of CHS, so feeling the need to take several hot showers throughout the day can be a sign of this condition. How is this diagnosed? CHS may be diagnosed based on: Your symptoms and medical history, including any drug use. A physical exam. You may have tests done to rule out other problems that could cause your symptoms. These tests may include: Blood tests. Urine tests. Imaging tests, such as an X-ray or a CT scan. How is this treated? Treatment for this condition involves stopping marijuana use. Treatment may include: A drug rehab program, if you have trouble stopping marijuana use. Medicines for nausea. These may be given at the hospital through an IV inserted into one of your veins, or they may be medicines that you take by mouth (orally). Certain creams that contain a substance called capsaicin. These may improve symptoms when applied to the abdomen. Hot showers to help relieve symptoms. In severe cases, you may need treatment at a hospital. You may be given IV fluids to prevent or treat dehydration as well as medicines to treat nausea, vomiting, and pain. Follow these instructions at home: During an episode of CHS Stay in bed and rest in a dark, quiet room. Take anti-nausea medicine as told by your health care provider. Try taking hot showers to relieve your symptoms. After an episode of CHS Drink small amounts of clear fluids. Slowly add more if you can keep the fluids down without vomiting. Once you are able to eat without vomiting, eat soft foods in small amounts every 3 4 hours. General instructions Do not use any products that contain marijuana.If you need help quitting, ask your health care provider for resources and treatment options. Drink enough fluid to keep your urine pale yellow. Avoid drinking fluids that have a lot of sugar or caffeine, such as coffee and soda. Take and apply [id number] and prescription medicines only as told by your health care provider. Ask your health care provider before starting any new medicines or treatments. Keep all follow-up visits. This includes any recommended programs for substance use disorders. Contact a health care provider if: Your symptoms get worse. You cannot drink fluids without vomiting or severe pain. You have pain and trouble swallowing after an episode. Get help right away if: You cannot stop vomiting. You have blood in your vomit or your vomit looks like coffee grounds. You have severe abdominal pain. You have stools that are bloody or black, or stools that look like tar. You have symptoms of dehydration, such as: ?Sunken eyes. ?Inability to make tears. ?Cracked lips or dry mouth. ?Decreased urine production. ?Weakness. ?Sleepiness. ?Dizziness, light-headedness, or fainting. These symptoms may be an emergency. Get help right away. Call 911. Do not wait to see if the symptoms will go away. Do not drive yourself to the hospital. Summary Cannabinoid hyperemesis syndrome (CHS) is a condition that causes repeated nausea, vomiting, and abdominal pain after long-term use of marijuana. Treatment for this condition involves stopping marijuana use. Hot showers and capsaicin creams may also help relieve symptoms. Your health care provider may prescribe medicines to help with nausea. Ask your health care provider before starting any medicines or other treatments. This information is not intended to replace advice given to you by your health care provider. Make sure you discuss any questions you have with your health care provider. Document Revised: 10/19/2022 Document Reviewed: 10/19/2022 [employer] Patient Education 2023 [employer]. Follow Up Care 01/02/2025 21:15:59 With:Patient preferrs to make own hospital follow up appointment(s). Address:Unknown When: Unknown With:Bereket JUAREZ, BRITTNI Beckham, [facility] Address: [address] [place] [address], [facility] [address] [place] [phone] When:2 to 4 weeks Comments:Call for followup appointment for outpatient gastric emptying study With:TERESA PATEL Address: [address] [place] [phone] Business (1) When: Unknown [facility] 07-03-2025 NoteDischarge Summary Admission and Discharge Information Admitting Physician [...] diarrhea fevers chills. Patient was seen at [facility] 12/26. At that time patient had [...] Intractable n/v, hx gastric ulcers, Consult and Co-manage Physical Exam Vitals & Measurements T: 36.5 [...] With When Contact Information Bereket JUAREZ, Kylee Roblero GAS, [facility] Within 2 to 4 weeks [address], [address] [place] [phone] Additional Instructions: Call for followup appointment for outpatient gastric emptying study TERESA PATEL [address] [place] [address]- [phone] Business (1) Additional Instructions: Patient Education Cannabinoid Hyperemesis S (more content not included)...[facility] CenterComment on above:Result Comment: Electronically Signed By: Aravind Douglass DO\.br\Date and Time Signed: 01/04/25 13:18 [id number] NotePatient Education - Text Gastroenterology Cannabinoid Hyperemesis Syndrome [...] coffee and soda. ??? Take and apply [id number] and prescription medicines only as told by [...] by your health care provider. Make sure y (more content not included)...[facility]07[facility] NoteProgress Note-Physician Patient: LADI BYERS Age: 39 years Sex: Female : 1985 Associated Diagnoses: None Author: Kartik Chavez Jr., DO Postoperative Information Postoperative disposition: Postoperative disposition: Home. Optimetrix number: Optimetrix number [id number]. Anesthetic utilized: General. Physical Examination Vital Signs 01/03/2025 16:15 EDT SpO2 97 % 01/03/2025 15:35 EDT SpO2 96 % 01/03/2025 15:35 EDT Respiratory Rate Monitored 20 br/min 01/03/2025 15:35 EDT Heart Rate Monitored 112 bpm IA 01/03/2025 15:35 EDT Systolic Blood Pressure 149 mmHg HI Diastolic Blood Pressure 95 mmHg HI Mean Arterial Pressure, Cuff 113 mmHg 01/03/2025 15:30 EDT Systolic Blood Pressure 149 mmHg HI Diastolic Blood Pressure 102 mmHg IA 01/03/2025 15:30 EDT Temperature Temporal Artery 36.8 [...] to Ambulatory Surgery Unit, and To home ).[facility] CenterComment on above:Result Comment: Electronically Signed By: Kartik Chavez Jr., DO\Date and Time Signed: 01/03/25 16:26 [id number] NoteEndoscopic Procedure Report - Other Patient: LADI BYERS Age: 39 years Sex: Female : [...] safety measures. Endoscope type used was an adult- size, introduced orally, advanced to the 3rd portion [...] 4. Normal examined duodenum Images Procedure images: Rec1_hd_video__T1___892.jpg Rec_hd_video__T14___970.jpg Rec1_hd_video_T14_41_[id number]_484.jpg Rec1_hd_video__T14_41_[id number]_652.jpg Rec1_hd_video_T14_40_54_182.jpg Rec1_hd_video_T14_40_41_033.jpg Rec1_hd_video__T14_39_[id number]_707.jpg Rec1_hd_video__T14_39_47_021.jpg Rec1_hd_video_T14_39_44_839.jpg Rec1_hd_video_T14_39_29_594.jpg Rec1_hd_video__T14_39_19_744.jpg Rec1_hd_video_T14_39_05_060.jpg Rec1_hd_video_T14_38_56_839.jpg Rec1_hd_video_T14_38_08_728.jpg Rec1_hd_video_T14_37_55_275.jpg . Post-Procedure Complications: none. Estimated blood [...] by tomorrow consider CT abdomen with IV contrastFirelands Regional Medical CenterComment on above:Result Comment: Electronically Signed By: Pooja JUAREZ, Milton Herrera\.br\Date and Time Signed: 01/03/25 15:38 EDTOther Comment: Missing Attachment - attachment storage system not supported [id number] Can be viewed in source system Missing Attachment - attachment storage system not supported [id number] Can be viewed in source systemMissing Attachment - attachment storage system not supported [id number] Can be viewed in source systemMissing Attachment - attachment storage system not supported [id number] Can be viewed in source systemMissing Attachment - attachment storage system not supported [id number] Can be viewed in source systemMissing Attachment - attachment storage system not supported [id number] Can be viewed in source systemMissing Attachment - attachment storage system not supported [id number] Can be viewed in source systemMissing Attachment - attachment storage system not supported [id number] Can be viewed in source system Missing Attachment - attachment storage system not supported [id number] Can be viewed in source systemMissing Attachment - attachment storage system not supported [id number] Can be viewed in source systemMissing Attachment - attachment storage system not supported [id number] Can be viewed in source systemMissing Attachment - attachment storage system not supported [id number] Can be viewed in source systemMissing Attachment - attachment storage system not supported [id number] Can be viewed in source systemMissing Attachment - attachment storage system not supported [id number] Can be viewed in source systemMissing Attachment - attachment storage system not supported [id number] Can be viewed in source system 01-03-2025 NoteConsultation Note Patient: LADI BYERS Age: 39 years Sex: Female : 1985 Associated Diagnoses: None Author: Milton Patton MD Basic Information Abdominal pain History of Present Illness This is a 39-year-old lady with past medical history of GERD, gastric ulcer, bipolar disorder, marijuana use disorder who presented to the hospital with abdominal pain Denies any melena or hematochezia, no hematemesis or coffee-ground emesis She reports that she had similar epigastric pain in 2021 when she had a large deep gastric ulcer inthe antrum in October 2021, repeat EGD in [...] cramping, # 16 cap(s), Refills(s) 0, Pharmacy: [facility]/pharmacy #[id number], 152, cm, 12/23/22 19:46:00 EDT, Height/Length Dosing, 58, kg, 12/23/22 19:46:00 EDT, Weight Dosing Phenergan 25 mg Supp: 25 mg = 1 supp, Rectal, q6hr, PRN Nausea/Vomiting, # 6 EA, Refills(s) 0, [id number], cm, 12/23/22 19:46:00 EDT, Height/Length Dosing, 58, kg, 12/23/22 19:46:00 EDT, Weight Dosing Protonix 40 mg Tab-DR: 40 mg = 1 tab(s), Oral, Daily, # 30 tab(s), Refills(s) 0, [id number], 152, cm, 07/29/22 2:29:00 EST, Height/Length Dosing, 64, kg, 07/29/22 2:29:00 EST, Weight Dosing Vitamin B12 1000 mcg Tab: 1,000 mcg = 1 tab(s), Oral, Daily, # 30 tab(s), Refills(s) 0, [id number], 152.4, cm, 11/06/22 14:36:00 EDT, Height/Length Dosing, 59.5, kg, 11/06/22 14:36:00 EDT, Weight Dosing folic acid 1 mg Tab: 1 mg = 1 tab(s), Oral, Daily, # 30 tab(s), Refills(s) 0, [id number], 152.4, cm, 11/06/22 14:36:00 EDT, Height/Length Dosing, 59.5, kg, 11/06/22 14:36:00 EDT, Weight Dosing melatonin 3 mg Tab: 3 mg = 1 tab(s), Oral, Bedtime, PRN Sleep, # 30 tab(s), Refills(s) 0, [id number], 152.4, cm, 11/06/22 14:36:00 EDT, Height/Length Dosing, 59.5, kg, 11/06/22 14:36:00 EDT, Weight Dosing promethazine 25 mg Tab: 25 mg = 1 tab(s), Oral, q6hr, PRN as needed for nausea/vomiting, # 16 tab(s), Refills(s) 0, Pharmacy: [facility]/pharmacy #[id number], 152.4, cm, 10/20/22 0:45:00 EDT, Height/Length Dosing, 61.2, kg, 10/20/22 0:45:00 EDT, Weight Dosing Documented Medications Documented Imitrex 100 mg Tab: 100 mg = 1 tab(s), Oral, Daily, PRN as needed for migraine headache, Refills(s)0 Metoprolol tartrate 25 mg Tab: mg tab(s), [...] 14:24) Heart Rate Monitored 102 bpm (JAN 03 15:25) Resp Rate 20 br/min (JAN 03 14:24) [...] she had a large deep gastric ulcer inthe antrum in October 2021, repeat EGD in February 2020 showed that also resolved Denies any NSAID use, no alcohol (more content not included)...[facility] CenterComment on above:Result Comment: Electronically Signed By: Pooja JUAREZ, Milton Herrera\.br\Date and Time Signed: 01/03/25 15:34 [id number] Note Progress Note-Physician Patient: LADI BYERS Age: 39 years Sex: Female : [...] cramping, # 16 cap(s), Refills(s) 0, Pharmacy: [facility]/pharmacy #[id number], 152, cm, 12/23/22 19:46:00 EDT, Height/Length Dosing, 58, kg, 12/23/22 19:46:00 EDT, Weight Dosing Phenergan 25 mg Supp: 25 mg = 1 supp, Rectal, q6hr, PRN Nausea/Vomiting, # 6 EA, Refills(s) 0, [id number] 152, cm, 12/23/22 19:46:00 EDT, Height/Length Dosing, 58, kg, 12/23/22 19:46:00 EDT, Weight Dosing Protonix 40 mg Tab-DR: 40 mg = 1 tab(s), Oral, Daily, # 30 tab(s), Refills(s) 0, [id number], 152, cm, 07/29/22 2:29:00 EST, Height/Length Dosing, 64, kg, 07/29/22 2:29:00 EST, Weight Dosing Vitamin B12 1000 mcg Tab: 1,000 mcg = 1 tab(s), Oral, Daily, # 30 tab(s), Refills(s) 0, [id number], 152.4, cm, 11/06/22 14:36:00 EDT, Height/Length Dosing, 59.5, kg, 11/06/22 14:36:00 EDT, Weight Dosing folic acid 1 mg Tab: 1 mg = 1 tab(s), Oral, Daily, # 30 tab(s), Refills(s) 0, Pharmacy: [id number], 152.4, cm, 11/06/22 14:36:00 EDT, Height/Length Dosing, 59.5, kg, 11/06/22 14:36:00 EDT, Weight Dosing melatonin 3 mg Tab: 3 mg = 1 tab(s), Oral, Bedtime, PRN Sleep, # 30 tab(s), Refills(s) 0, [id number], 152.4, cm, 11/06/22 14:36:00 EDT, Height/Length Dosing, 59.5, kg, 11/06/22 14:36:00 EDT, Weight Dosing promethazine 25 mg Tab: 25 mg = 1 tab(s), Oral, q6hr, PRN as needed for nausea/vomiting, # 16 tab(s), Refills(s) 0, [id number], 152.4, cm, 10/20/22 0:45:00 EDT, Height/Length Dosing, 61.2, kg, 10/20/22 0:45:00 EDT, Weight Dosing Documented Medications Documented Imitrex 100 mg Tab: 100 mg = 1 tab(s), Oral, Daily, PRN as needed for migraine headache, Refills(s)0 Metoprolol tartrate 25 mg Tab: mg tab(s), [...] 40 mg Tab-DR 40 mg = 1 tab (more content not included)...[facility] CenterComment on above:Result Comment: Electronically Signed By: Kartik Chavez Jr., DO\.anne\Date and Time Signed: 01/03/25 14:17 [id number] Note History and Physical Chief Complaint Nausea and [...] like coffee grounds. She was seen at [facility] on 12/26. Had a CT A/P then with no acute process identified. WBC then was 15.7K. States her symptoms have not improved at all since then; theyhave not worsened. Has a hx gastric ulcers 2y ago and states this feels very similar to then. Indicates she takes Protonix. Is also on Celebrex. She is not a diabetic, no hx gastroparesis. Does admitto smoking marijuana daily. ED Course: Vitals revealed tachycardia. No fever. WBC elevated at 15.3K (similar to where it was [facility] on 12/26). Her K+ is low [...] 5.7 E12/L (01/02/25::) HGB: 17.3 gm/dL High (01/02/25:32:) Hct: 50.4 % High (01/02/25::) MCV: 88.6 fL (01/02/25::) MCH: 30.4 pg (01/02/25::) MCHC: 34.3 gm/dL (01/02/25::) RDW: 15.3 % High (01/02/25::) Platelet: 404 E9/L (01/02/25::) MPV: 8 fL (01/02/25::) Neutro Auto: 69 % (01/02/25:32:) Lymph Auto: 24.2 % (01/02/25:32:) Charles Auto: 5.8 % (01/02/25:32:) Eos Auto: 0.1 % (01/02/25::) Basophil Auto: 0.9 % (01/02/25::) Neutro Absolute: 10.5 E9/L High (01/02/25:32:) Lymph Absolute: 3.7 E9/L (01/02/25::) Charles Absolute: 0.9 E9/L (01/02/25::00) Eos Absolute: 0 E9/L (01/02/25::) Basophil Absolute: 0.1 E9/L (01/02/25::) Glucose Lvl: 129 mg/dL (01/02/25:32:00) BUN: 6 mg/dL (01/02/25:32:00) Creatinine: 1.1 mg/dL (01/02/25:32:00) eGFR: 65 mL/min/1.73 m2 (07/01/25 21:32:00) BUN/Creat Ratio: 6 Low (01/02/25 21:32:00) Sodium Lvl: 140 mmol/L (01/02/25:32:00) Potassium Lvl: 3.4 mmol/L Low (01/02/25:32:00) Chloride: 100 mmol/L Low (01/02/25:32:00) CO2: 24 mmol/L (01/02/25:32:00) AGAP: 19 mEq/L High (01/02/25:32:00) Calcium Lvl: 10.4 mg/dL (01/02/25:32:00) Alk Phos: 80 Int._Unit/L (01/02/25:32:00) ALT: 41 Int._Unit/L (01/02/25:32:00) AST: 33 Int._Unit/L (01/02/25:32:) Total Protein: 8.5 gm/dL High (01/02/25:32:00) Albumin Lvl: 5.5 gm/dL High (01/02/25:32:00) Globulin: 3 gm/dL (01/02/25:32:00) A/G Ratio: 1.8 (01/02/25:32:00) Bili Total: 0.6 mg/dL (01/02/25:32:00) Bili Direct: 0 mg/dL (01/02/25:32:00) Bili Indirect: 0.6 mg/dL (01/02/25:32:00) Lipase Lvl: 20 unit/L (01/02/25:32:00) Assessment/Plan 39yo female with a PMH gastric ulcers, GERD, bipolar affective disorder, daily marijuana use. 1. Intractable nausea and vomiting (R11.2: Nausea with vomiting, unspecified) Presents with a >1w history of intractable n/v and epigastric pain. Differen (more content not included)...[facility] CenterComment on above:Result Comment: Electronically Signed By: Aravind Douglass DO\.br\Date and Time Signed: 01/03/25 09:59 [id number] NoteHistory and Physical Chief Complaint Nausea and vomiting [...] like coffee grounds. She was seen at [facility] on 12/26. Had a CT A/P then with no acute process identified. WBC then was 15.7K. States her symptoms have not improved at all since then; theyhave not worsened. Has a hx gastric ulcers 2y ago and states this feels very similar to then. Indicates she takes Protonix. Is also on Celebrex. She is not a diabetic, no hx gastroparesis. Does admitto smoking marijuana daily. ED Course: Vitals revealed tachycardia. No fever. WBC elevated at 15.3K ([facility] Her K+ is low [...] cooperative Lab Results WBC: 15.3 E9/L High (01/02/25 21:32:00) RBC: 5.7 E12/L (01/02/25 21:32:00) HGB: 17.3 gm/dL High (01/02/25 21:32:00) Hct: 50.4 % High (01/02/25 21:32:00) MCV: 88.6 fL (01/02/25 21:32:00) MCH: 30.4 pg (01/02/25:32:00) MCHC: 34.3 gm/dL (01/02/25 21:32:00) RDW: 15.3 % High (01/02/25 21:32:00) Platelet: 404 E9/L (01/02/25 21:32:00) MPV: 8 fL (01/02/25 21:32:00) Neutro Auto: 69 % (01/02/25 21:32:00) Lymph Auto: 24.2 % (01/02/25 21:32:00) Charles Auto: 5.8 % (01/02/25:32:00) Eos Auto: 0.1 % (01/02/25:32:00) Basophil Auto: 0.9 % (01/02/25 21:32:00) Neutro Absolute: 10.5 E9/L High (01/02/25 21:32:00) Lymph Absolute: 3.7 E9/L (01/02/25:32:00) Charles Absolute: 0.9 E9/L (01/02/25:32:00) Eos Absolute: 0 E9/L (01/02/25::00) Basophil Absolute: 0.1 E9/L (01/02/25:32:00) Glucose Lvl: 129 mg/dL (01/02/25:32:00) BUN: 6 mg/dL (01/02/25::) Creatinine: 1.1 mg/dL (01/02/25::) eGFR: 65 mL/min/1.73 m2 (01/02/25::) BUN/Creat Ratio: 6 Low (01/02/25::) Sodium Lvl: 140 mmol/L (01/02/25::) Potassium Lvl: 3.4 mmol/L Low (01/02/25::) Chloride: 100 mmol/L Low (01/02/25::) CO2: 24 mmol/L (01/02/25::00) AGAP: 19 mEq/L High (01/02/25:32:00) Calcium Lvl: 10.4 mg/dL (01/02/25:32:00) Alk Phos: 80 Int._Unit/L (01/02/25:32:00) ALT: 41 Int._Unit/L (01/02/25:32:00) AST: 33 Int._Unit/L (01/02/25:32:00) Total Protein: 8.5 gm/dL High (01/02/25:32:00) Albumin Lvl: 5.5 gm/dL High (01/02/25:32:00) Globulin: 3 gm/dL (01/02/25:32:00) A/G Ratio: 1.8 (01/02/25:32:00) Bili Total: 0.6 mg/dL (01/02/25:32:00) Bili Direct: 0 mg/dL (01/02/25:32:00) Bili Indirect: 0.6 mg/dL (01/02/25 21:32:00) Lipase Lvl: 20 unit/L (01/02/25 21:32:00) Assessment/Plan 39yo female with a PMH gastric ulcers, GERD, bipolar affective disorder, daily marijuana use. 1. Intractable nausea and vomiting (R11.2: Nausea with vomiting, unspecified) Presents with a >1w history of intractable n/v and epigastric pain. Differen (more content not included)...[facility] CenterComment on above:Result Comment: Electronically Signed By: Guanaco JUAREZ, Saundra\.anne\Date and Time Signed: 01/03/25 04:06 [id number] History of Present illness Narrative* Zoraida Mccabe Mammo Tech - 12/17/2024 12:40 PM EDT Radiology Service Progress Note PATIENT NAME: Ladi Byers DATE OF SERVICE: December 17, 2024 TIME: 12:45 PM PATIENT IDENTITY VERIFICATION COMPLETED USING TWO (2) IDENTIFIERS: Name and Date of confirmedby patient verbally and Name and Date of confirmed by identification band. FALL SCREENING: Has the patient had 2 falls in the last year or 1 fall with injury or currently using an Ambulatory Assistive Device (Walker, Cane, Wheelchair, Crutches, etc.)? No PATIENT GENDER DATA: Assigned female at . status: : No status:NO. PATIENT RELEVANT IMPLANT DATA REVIEWED: Not Applicable PATIENT PRESENTS WITH AN IMPLANTABLE OR ATTACHED POWER TOOL REPAIR TECHNICIAN: No RADIOLOGY DEPARTMENT: Mammography PERIPHERAL IV DATA: Not applicable SIGNED BY: Roxanna Rothman December 17, 2024 12:45 PM documented in this encounterBerger [facility]06-15-2025 NoteHNO ID: [id number] Author: ZORAIDA MCCABE Mammo Tech Service: ? Author Type: Technologist Type: Progress Notes Filed: 12/17/2024 12:45 Note Text: Radiology Service Progress Note PATIENT NAME: Ladi Byers DATE OF SERVICE: December 17, 2024 [...] PATIENT PRESENTS WITH AN IMPLANTABLE OR ATTACHED POWER TOOL REPAIR TECHNICIAN: No RADIOLOGY DEPARTMENT: Mammography PERIPHERAL IV DATA: Not applicable SIGNED BY: Zoraida Mccabe [employer] December 17, 2024 12:45 [facility] [id number] NoteHNO ID: [id number] Author: FRANCHESCA LOW MD Service: ? Author Type: Physician Type: Progress Notes Filed: 12/12/2024 08:35 Note Text: [facility] [place] SECTION OF REGIONAL CARDIOLOGY OUTPATIENT VISIT DATE December 12, 2024 OUTPATIENT VISIT TYPE Established PRIMARY CARE PHYSICIAN: Reuben Agrawal [address] [place] [address] REFERRING PHYSICIAN: Maurice Edward [address] [facility] [address] [place] [id number] C/C Follow-up today with symptoms of shortness of breath Last visit with me in 2022, subsequent F/u with [employer] in Jul 2023 HISTORY OF PRESENT ILLNESS: Ms. Byers is a 39 year old female, seen in clinic today for follow-up. Prior hx of palpitations treated with propanolol. Hx of palpitations with possible sinus tachycardia-seen an treated at [facility]. Was started on metoprolol in the [...] carafate and PPI, anxiety-follows with psychiatrist through [facility] in [place]. Since prior visit, The patient is a [...] personally reviewed ECG: Sinus rhythm, 49 bpm, ME 144, right bundle branch block. PAST MEDICAL [...] 2.0 standard drinks of alcohol Types: 2 Standa (more content not included)...[facility] 12-12-2024 History of Present illness Narrative* Franchesca Low MD - 12/12/2024 8:05 AM EDT Images from the original note were not included. [facility] [place] SECTION OF REGIONAL CARDIOLOGY OUTPATIENT VISIT DATE December 12, 2024 OUTPATIENT VISIT TYPE Established PRIMARY CARE PHYSICIAN: Reuben Agrawal [address] [place] [address] REFERRING PHYSICIAN: Maurice Edward [address] [facility] [address] [place] [id number] C/C Follow-up today with symptoms of shortness of breath Last visit with me in 2022, subsequent F/u with [employer] in Jul 2023 HISTORY OF PRESENT ILLNESS: Ms. Byers is a 39 year old female, seen in clinic today for follow-up. Prior hx of palpitations treated with propanolol. Hx of palpitations with possible sinus tachycardia-seen an treated at [facility]. Was started on metoprolol in the past, it did not help with symptoms of heart palpitations. An exercise stress test with stress SPECT in December 2021, scanned under Care Everywhere showed no exercise-induced rhythm or EKG abnormalities, no perfusion defects. Echocardiogram June 2023 normal LV size and function, LVEF 60%, RV normal size and function, nosignificant valvular abnormalities She gets palpitations 2-3 times/week. Non-exertional. Lasts for seconds to a min at a time. No family history of premature coronary artery disease, no family history of SCD. She has 2 children, 12 and 18 years old and normal with no specific cardiovascular complications peripartum. Prior hx of smoking-8pkyr, vapes Additional comorbidities include migraines, gastric ulcer -prior EGD and cauterization, on carafateand PPI, anxiety-follows with psychiatrist [facility] in [place]. Since prior visit, The patient is a 39-year-old female with a history of hypercholesterolemia, prior tobacco use, and palpitations, presenting for evaluation of dyspnea. The patient reports experiencing dyspnea with minimal exertion, such as speaking in full sentences.She notes associated wheezing but denies any cough, chest pain, or orthopnea. She uses an inhaler without relief. She has not undergone pulmonary function testing. She reports mild dyspnea at rest and has noticed leg swelling. She denies any known allergies to contrast dye. She has a history of palpitations, which have improved with propranolol 80 mg daily. She denies anyrecent episodes. She has a history of hypercholesterolemia and prior tobacco use, having quit smoking three years ago. She has known allergies to metoclopramide, pantoprazole, and Vraylar. REVIEW OF SYSTEMS: 10 systems reviewed and are negative with the exception of pertinent positives described in HPI PHYSICAL EXAMINATION: BP 95/65 Pulse 75 Wt 86.1 kg (189 lb 13.1 oz) LMP 07/19/2023 (Exact Date) BMI 35.87 kg/m General: No acute distress, appears comfortable HEENT: [...] personally reviewed ECG: Sinus rhythm, 49 bpm, ME 144, right bundle branch block. PAST MEDICAL [...] 4 hoursas needed for wheezing/shortness of breath. guaiFENesin (MUCINEX) [...] reactive airway disease. MD Franchesca Ray MD documented in this encounterBerger Hospital04-22-2025 Telephone encounter Note * Telephone Encounter - Reuben Agrawal PA-C - 10/24/2024 7:33 AM EDT Rx sent 10/23/2024 in another enc Reuben Agrawal PA-C [facility]04-[facility] Miscellaneous Notes* Telephone Encounter - Reuben Agrawal PA-C - 10/24/2024 7:33 AM EDT Rx sent 10/23/2024 in another enc Reuben Agrawla PA-C * Telephone Encounter - Leonie Kemp MA - 10/23/2024 1:51 PM EDT Patient is requesting a medication refill. Last appointment: 10/05/2024 Next scheduled appointment: Appointments for Next 60 Days Date Time Provider Location Dept Phone 12/12/2024 8:00 AM FRANCHESCA LOW [facility] [phone] 12/17/2024 12:40 PM SCREEN/[facility] [phone] Requested Prescriptions Pending Prescriptions Disp Refills celecoxib (CELEBREX) 200 mg capsule 30 capsule 5 Sig: Take 1 capsule by mouth once daily. Leonie Kemp MA October 23, 2024 1:51 PM documented in this encounterBerger Hospital04-21-2025 Telephone encounter Note * Telephone Encounter - Reuben Agrawal PA-C - 10/23/2024 4:20 PM EDT Celebrex sent so it's a 90 day supply. Appears gabapentin was sent by another [facility] today ([facility]) Reuben Agrawal PA-C [facility]04-21-2025 Miscellaneous Notes* Telephone Encounter - Reuben Agrawal PA-C - 10/23/2024 4:20 PM EDT Celebrex sent so it's a 90 day supply. Appears gabapentin was sent by another [facility] today ([facility]) Reuben Agrawal PA-C * Telephone Encounter - Godfrey Martin MA - 10/23/2024 2:06 PM EDT Patient should have celebrex on file at the pharmacy. Patient should not be out of gabapentin but does not have additional refill on file. Godfrey Martin MA October 23, 2024 2:08 PM documented in this encounterBerger Hospital04-21-2025 Telephone encounter Note * Telephone Encounter - Godfrey Martin MA - 10/23/2024 2:06 PM EDT Patient should have celebrex on file at the pharmacy. Patient should not be out of gabapentin but does not have additional refill on file. Godfrey Martin MA October 23, 2024 2:08 PM [facility]04-21-2025 Telephone encounter Note* Telephone Encounter - Leonie Kemp MA - 10/23/2024 1:51 PM EDT Patient is requesting a medication refill. Last appointment: 10/05/2024 Next scheduled appointment: Appointments for Next 60 Days Date Time Provider Location Dept Phone 12/12/2024 8:00 AM [facility] [phone] 12/17/2024 12:40 PM SCREEN/[facility] [phone] Requested Prescriptions Pending Prescriptions Disp Refills celecoxib (CELEBREX) 200 mg capsule 30 capsule 5 Sig: Take 1 capsule by mouth once daily. Leonie Kemp MA October 23, 2024 1:51 PM [facility]04-21-2025 Telephone encounter Note* Telephone Encounter - She De Jesus RN - 10/23/2024 12:55 PM EDT Neuro SPINE CARE COORDINATION QUICK NOTE ALEXANDER 07-[address] Cruz ( SP ACDF) Current dosage of Neurontin is 100 mg BID with last fill on 07-31-24 Routed to [facility] for review - refill [facility] Work Phone: 1(974) 669-173204-21-2025 Miscellaneous Notes* Telephone Encounter - She De Jesus RN - 10/23/2024 12:55 PM EDT Neuro SPINE CARE COORDINATION QUICK NOTE ALEXANDER 07-[address] Cruz ( SP ACDF) Current dosage of Neurontin is 100 mg BID with last fill on 1-27-25 Routed to [facility] for review - refill documented in this encounterBerger Hospital04-11-2025 Telephone encounter Note * Telephone Encounter - Godfrey Martin MA - 10/13/2024 10:56 AM EDT [facility] Placed in pcp inbox for signature. Godfrey Martin MA October 13, 2024 10:57 AM [facility]04-11-2025 Miscellaneous Notes* Telephone Encounter - Godfrey Martin MA - 10/13/2024 10:56 AM EDT [facility] Placed in pcp inbox for signature. Godfrey Martin MA October 13, 2024 10:57 AM documented in this encounterBerger Hospital04-04-2025 Telephone encounter Note * Telephone Encounter - Godfrey Martin MA - 10/06/2024 8:09 AM EDT Order for PT faxed to [phone] [facility]04-04-2025 Miscellaneous Notes* Telephone Encounter - Godfrey Martin MA - 10/06/2024 8:09 AM EDT Order for PT faxed to [phone] documented in this encounterBerger Hospital04-04-2025 Telephone encounter Note * Telephone Encounter - Godfrey Martin MA - 10/06/2024 8:05 AM EDT Called for fax number. Faxed letter to [phone] Godfrey Martin MA October 06, 2024 8:07 AM [facility]04-04-2025 Miscellaneous Notes* Telephone Encounter - Godfrey Martin MA - 10/06/2024 8:05 AM EDT Called for fax number. Faxed letter to [phone] Godfrey Martin MA October 06, 2024 8:07 AM * Telephone Encounter - Reuben Agrawal PA-C - 10/05/2024 12:21 PM EDT Letter placed in action outbox. Please fax to psychiatrist (will need to call to get fax number) Psychiatrist Bre Tineo [phone] [address] [place] [address] Reuben Agrawal PA-C documented in this encounterBerger Hospital04-03-2025 Telephone encounter Note * Telephone Encounter - Reuben Agrawal PA-C - 10/05/2024 12:21 PM EDT Letter placed in action outbox. Please fax to psychiatrist (will need to call to get fax number) Psychiatrist Bre Tineo [phone] [address] [place] [address] Reuben Agrawal PA-C [facility]04-03-2025 Instructions* Patient Instructions* Reuben Agrawal PA-C - 10/05/2024 10:58 AM EDT Start Vitamin D prescription weekly Check labs in 3 months Recommend low cholesterol diet Check labs FASTING in 3 months Physical therapy order faxed - but also given to you. documented in this encounterBerger Hospital04-03-2025 NoteHNO ID: [id number] Author: REUBEN AGRAWAL PA-C Service: ? Author Type: Physician Supervisor [employer] Type: Progress Notes Filed: 10/05/2024 12:21 Note Text: Subjective Patient ID: Ladi is a 39 year old female who [...] colonoscopy in the past - done at [facility]. She takes Bentyl prn with benefit. PUD: She reports a history of a gastric ulcer. She has had an EGD in the past - done at [facility]. She takes pantoprazole daily. She also takes naproxen daily. Fibromyalgia: Previously dx with Fibromyalgia. She has seen PT/OT - great benefit in the past. Is on Gabapentin 100mg 2 po BID and Celebrex QD. She inquires about restarting Tizanidine for qhs to help with her upper back muscular pain/tightness. Nephrolithiasis: She has a hx of nephrolithiasis. No recent renal colic or hematuria [facility] [facility]: She's followed by [facility] annually. She has a history of abnormal [...] [facility] Pap: Followed by [facility] EGD/Colonoscopy: 08/2022 okay Declines COVID and flu [...] changing plan of care) Psychiatrist Bre Tineo [phone] [address] [place] [address] [facility] History of Present illness Narrative* Reuben Agrawal PA-C - 10/05/2024 10:31 AM EDT Subjective Patient ID: Ladi is a 39 year old female who [...] psychiatry - which has been increasing. She notesno change in her palpitations. TMJ: She has [...] colonoscopy in the past - done at [facility]. She takes Bentyl prn with benefit. PUD: She reports a history of a gastric ulcer. She has had an EGD in the past - done at [facility]. She takes pantoprazole daily. She also takes naproxen daily. Fibromyalgia: Previously dx with Fibromyalgia. She has seen PT/OT - great benefit in the past. Is on Gabapentin 100mg 2 po BID and Celebrex QD. She inquires about restarting Tizanidine for qhs to help with her upper back muscular pain/tightness. Nephrolithiasis: She has a hx of nephrolithiasis. No recent renal colic or hematuria [employer]: She's followed by [facility] annually. She has a history of abnormal [...] Objective BP 121/85 Pulse 73 Temp 36.6 C (97.8 F) (Temporal) Ht 154.9 cm (5' 1 ) Wt 86.6 kg (191 lb) LMP 07/19/2023 (Exact Date) SpO2 99% BMI 36.09 kg/m Physical Exam HENT: Head: Normocephalic and atraumatic. [...] and time. Psychiatric: Judgment: Judgment normal. Assessment & Plan Routine general medical examination at a [...] [facility] Pap: Followed by [facility] EGD/Colonoscopy: 08/2022 okay Declines COVID and flu [...] changing plan of care) Psychiatrist Bre Tineo [phone] [place] [address] Reuben Agrawal PA-C documented in this encounterBerger Hospital01-31-2025 NoteHNO ID: [id number] Author: JOO CRUZ MD Service: ? Author Type: Physician Type: Progress Notes Filed: 08/04/2024 15:41 Note Text: SPINE SURGERY FOLLOW UP This is an in-person visit. SERVICE DATE: 08/04/2024 SURGERY DATE: ACDF C6/7 on (Date: 08/24/2023) Ladi Byers is seen for 1 year post [...] MD PATIENT NAME: Ladi Byers DATE: August 04, 2024 TIME: 3:04 PM [id number] History of Present illness Narrative* Joo Cruz MD - 08/04/2024 3:04 PM EST Images from the original note were not included. SPINE SURGERY FOLLOW UP This is an in-person visit. SERVICE DATE: 08/04/2024 SURGERY DATE: ACDF C6/7 on (Date: 08/24/2023) Ladi Byers is seen for 1 year post [...] MD PATIENT NAME: Ladi Byers DATE: August 04, 2024 TIME: 3:04 PM PAGER: documented in this encounterBerger Hospital01-31-2025 History of Present illness Narrative* Daniel Keller RT(R) - 08/04/2024 3:00 PM EST Radiology Service Progress Note PATIENT NAME: Ladi Byers DATE OF SERVICE: August 04, 2024 TIME: 3:26 PM PATIENT IDENTITY VERIFICATION COMPLETED USING TWO (2) IDENTIFIERS: Name and Date of confirmedby patient verbally and Name and Date of confirmed by identification band. FALL SCREENING: Has the patient had 2 falls in the last year or 1 fall with injury or currently using an Ambulatory Assistive Device (Walker, Cane, Wheelchair, Crutches, etc.)? No PATIENT GENDER DATA: Assigned female at . status: : No status:N/A PATIENT RELEVANT IMPLANT DATA REVIEWED: Not Applicable PATIENT PRESENTS WITH AN IMPLANTABLE OR ATTACHED POWER TOOL REPAIR TECHNICIAN: No RADIOLOGY DEPARTMENT: General X-ray: Exam(s) Completed: Spine X-Ray(s): Cervical AP / LAT PERIPHERAL IV DATA: Not applicable SIGNED BY: RT Deonte(Jeremy) August 04, 2024 3:26 PM documented in this encounterBerger Hospital01-31-2025 NoteHNO ID: [id number] Author: DANIEL KELLER RT(R) Service: Radiology Author Type: Technologist Type: Progress Notes Filed: 08/04/2024 15:27 Note Text: Radiology Service Progress Note PATIENT NAME: Ladi Byers DATE OF SERVICE: August 04, 2024 [...] PATIENT PRESENTS WITH AN IMPLANTABLE OR ATTACHED POWER TOOL REPAIR TECHNICIAN: No RADIOLOGY DEPARTMENT: General X-ray: Exam(s) Completed: Spine X-Ray(s): Cervical AP / LAT PERIPHERAL IV DATA: Not applicable SIGNED BY: RT Deonte(R) August 04, 2024 3:26 [facility]01-27-2025 Telephone encounter Note* Telephone Encounter - Reuben Agrawal PA-C - 07/31/2024 7:45 PM EST Rx sent as requested. [facility]01-27-2025 Telephone encounter Note* Telephone Encounter - Reuben Agrawal PA-C - 07/31/2024 7:45 PM EST Rx sent as requested. [facility]01-27-2025 Miscellaneous Notes* Telephone Encounter - Reuben Agrawal PA-C - 07/31/2024 7:45 PM EST Rx sent as requested. * Telephone Encounter - Liliam Rees MA - 07/31/2024 4:04 PM EST Patient needs to schedule an appointment! Patient is requesting a medication refill. Last appointment: 09/10/2023 Next scheduled appointment: Requested Prescriptions Pending Prescriptions Disp Refills cetirizine (ZYRTEC) 10 mg tablet [Pharmacy Med Name: CETIRIZINE HCL 10 MG TABLET] 90 tablet 1 Sig: TAKE 1 TABLET BY MOUTH EVERYDAY AT BEDTIME Liliam Rees MA July 31, 2024 4:05 PM documented in this encounterBerger Hospital01-27-2025 Miscellaneous Notes* Telephone Encounter - Reuben Agrawal PA-C - 07/31/2024 7:45 PM EST Rx sent as requested. * Telephone Encounter - Scarlett Lane MA - 07/31/2024 11:14 AM EST Pharmacy escripts requesting the following refill: Medication was last filled on 06/22/2024 with a 30 day supply and 5 refills. Last office visit:09/10/2023([facility]) Next office visit:None Requested Prescriptions Pending Prescriptions Disp Refills celecoxib (CELEBREX) 200 mg capsule 30 capsule 5 Sig: Take 1 capsule by mouth once daily. Please Scarlett ye MA documented in this encounterBerger Hospital01-27-2025 Telephone encounter Note * Telephone Encounter - Liliam Rees MA - 07/31/2024 4:04 PM EST Patient needs to schedule an appointment! Patient is requesting a medication refill. Last appointment: 09/10/2023 Next scheduled appointment: Requested Prescriptions Pending Prescriptions Disp Refills cetirizine (ZYRTEC) 10 mg tablet [Pharmacy Med Name: CETIRIZINE HCL 10 MG TABLET] 90 tablet 1 Sig: TAKE 1 TABLET BY MOUTH EVERYDAY AT BEDTIME Liliam Rees MA July 31, 2024 4:05 PM [facility]01-27-2025 Telephone encounter Note* Telephone Encounter - She De Jesus RN - 07/31/2024 2:50 PM EST Neuro SPINE CARE COORDINATION QUICK NOTE ALEXANDER 10-26- ACDF - 2-- Pt continues with Neurontin 200 mg BID - refill requested - Routed to [facility] for review. [facility] Work Phone: 1(632) 373-987101-27-2025 Miscellaneous Notes* Telephone Encounter - She De Jesus RN - 07/31/2024 2:50 PM EST Neuro SPINE CARE COORDINATION QUICK NOTE ALEXANDER 10-26- ACDF - 2-- Pt continues with Neurontin 200 mg BID - refill requested - Routed to [facility] for review. documented in this encounterBerger Hospital01-27-2025 Telephone encounter Note * Telephone Encounter - Scarlett Lane MA - 07/31/2024 11:14 AM EST Pharmacy escripts requesting the following refill: Medication was last filled on 06/22/2024 with a 30 day supply and 5 refills. Last office visit:09/10/2023([facility]) Next office visit:None Requested Prescriptions Pending Prescriptions Disp Refills celecoxib (CELEBREX) 200 mg capsule 30 capsule 5 Sig: Take 1 capsule by mouth once daily. Please review, Scarlett Lane MA [facility]01-27-2025 Telephone encounter Note* Telephone Encounter - Godfrey Martin MA - 07/31/2024 8:26 AM EST Patient requesting refills as follows: Requested Prescriptions Pending Prescriptions Disp Refills SUMAtriptan (IMITREX) 50 mg tablet Sig: May repeat dose after 2 hours if needed. Maximum daily dose is 200 mg per day. pantoprazole [address] (PROTONIX) 40 mg tablet Sig: Take 1 tablet by mouth every afternoon. Last appointment: 04/09/2023 Next scheduled appointment: Visit date not found Godfrey Martin MA July 31, 2024 8:26 AM [facility]01-27-2025 Miscellaneous Notes* Telephone Encounter - Godfrey Martin MA - 07/31/2024 8:26 AM EST Patient requesting refills as follows: Requested Prescriptions Pending Prescriptions Disp Refills SUMAtriptan (IMITREX) 50 mg tablet Sig: May repeat dose after 2 hours if needed. Maximum daily dose is 200 mg per day. pantoprazole DR (PROTONIX) 40 mg tablet Sig: Take 1 tablet by mouth every afternoon. Last appointment: 04/09/2023 Next scheduled appointment: Visit date not found Godfrey Martin MA July 31, 2024 8:26 AM documented in this encounterBerger Hospital11-11-2024 Telephone encounter Note * Telephone Encounter - Kell Hannah MA - 05/15/2024 10:25 AM EST Pharmacy electronically requests the following refill(s) Requested Prescriptions Pending Prescriptions Disp Refills propranolol ER (INDERAL LA) 80 mg 24 hr capsule [Pharmacy Med Name: PROPRANOLOL ER 80 MG CAPSULE] 90 capsule 3 Sig: TAKE 1 CAPSULE BY MOUTH EVERY DAY Kell Hannah MA [facility]11-11-2024 Miscellaneous Notes* Telephone Encounter - Kell Hannah MA - 05/15/2024 10:25 AM EST Pharmacy electronically requests the following refill(s) Requested Prescriptions Pending Prescriptions Disp Refills propranolol ER (INDERAL LA) 80 mg 24 hr capsule [Pharmacy Med Name: PROPRANOLOL ER 80 MG CAPSULE] 90 capsule 3 Sig: TAKE 1 CAPSULE BY MOUTH EVERY DAY Kell Hannah MA documented in this encounterBerger Hospital09-23-2024 Telephone encounter Note * Telephone Encounter - Reuben Agrawal PA-C - 03/27/2024 9:34 AM EDT Rx sent as requested. [facility]09-23-2024 Miscellaneous Notes* Telephone Encounter - Reuben Agrawal PA-C - 03/27/2024 9:34 AM EDT Rx sent as requested. * Telephone Encounter - Liliam Rees MA - 03/27/2024 6:28 AM EDT Patient is requesting a medication refill. Last appointment: 09/10/2023 Next scheduled appointment: Requested Prescriptions Pending Prescriptions Disp Refills cetirizine (ZYRTEC) 10 mg tablet [Pharmacy Med Name: CETIRIZINE HCL 10 MG TABLET] 90 tablet 1 Sig: take 1 tablet by mouth everyday at bedtime Liliam Rees MA March 27, 2024 6:28 AM documented in this encounterBerger Hospital09-23-2024 Telephone encounter Note * Telephone Encounter - Liliam Rees MA - 03/27/2024 6:28 AM EDT Patient is requesting a medication refill. Last appointment: 09/10/2023 Next scheduled appointment: Requested Prescriptions Pending Prescriptions Disp Refills cetirizine (ZYRTEC) 10 mg tablet [Pharmacy Med Name: CETIRIZINE HCL 10 MG TABLET] 90 tablet 1 Sig: take 1 tablet by mouth everyday at bedtime Liliam Rees MA March 27, 2024 6:28 AM [facility]09-05-2024 History of Present illness Narrative* SHALONDA Newman - 03/09/2024 10:10 AM EDT Reason for Appointment: Patient ID: Ladi Byers is a 39 y.o. female who presents for Post-op Visit Patient presents today for 1 Week Post Op Follow Up appointment. MEDICATIONS Current Outpatient Medications Medication Instructions acetaminophen-codeine (Tylenol w/ Codeine #3) 300-30 MG tablet 1 tablet, Oral, Every 6 hours PRN Blisovi 24 Fe 1-20 MG-MCG(24) tablet 1 tablet, Oral, Daily RT busPIRone (Buspar) 10 MG tablet 2 tablets, Oral, 2 times daily celecoxib (CeleBREX) 200 MG capsule Every 24 hours cetirizine (ZyrTEC) 10 MG tablet Every 24 hours cyanocobalamin (VITAMIN B-12) 1,000 mcg, Oral, Daily RT dicyclomine (Bentyl) 10 MG capsule Every 6 hours gabapentin (Neurontin) 100 MG capsule 1 capsule lisdexamfetamine (VYVANSE) 20 mg, Every 24 hours pantoprazole (ProtoNix) 40 MG EC tablet TAKE 1 TABLET BY MOUTH EVERY DAY FOR 30 DAYS propranolol LA (Inderal LA) 80 MG 24 hr capsule 1 capsule, Every 24 hours SUMAtriptan (Imitrex) 50 MG tablet Every 12 hours Turmeric 500 MG capsule Every 24 hours ZyPREXA 15 MG tablet Every 24 hours ALLERGIES Allergies Allergen Reactions Amoxicillin Unknown and Rash Other Reaction(s): hives Amoxicillin-Pot Clavulanate Unknown Penicillins Hives, Other and Unknown Cariprazine Other and Unknown Other Reaction(s): out of body experience, Unknown Iothalamate Unknown Metoclopramide Other and Unknown Other Reaction(s): rash, Unknown PROBLEMS Active Ambulatory Problems Diagnosis Date Noted Acid reflux 02/24/2023 Anxiety 02/24/2023 Chronic post-traumatic stress disorder (PTSD) ([facility] 02/24/2023 Chronic rhinitis 02/24/2023 Current smoker 02/24/2023 Depressed bipolar I disorder (CMS/HCC) 02/24/2023 Insomnia 02/24/2023 Inattention 02/24/2023 Mixed bipolar affective disorder, mild (CMS/HCC) 02/24/2023 Mixed hyperlipidemia (CMS/HCC) 05/24/2020 Obesity 02/24/2023 Resolved Ambulatory Problems Diagnosis Date Noted Acute hypokalemia 02/24/2023 Past Medical History: Diagnosis Date Bipolar affective (CMS/HCC) Cerebellar tonsillar ectopia (CMS/HCC) PTSD (post-traumatic stress disorder) (CMS/HCC) Stomach ulcer HISTORY PAST MEDICAL HISTORY SOCIAL HISTORY Past Medical History: Diagnosis Date Acute hypokalemia 02/24/2023 Bipolar affective (CMS/HCC) Cerebellar tonsillar ectopia (CMS/HCC) PTSD (post-traumatic stress disorder) (CMS/HCC) Stomach ulcer Social History Tobacco Use Smoking status: Never Smokeless tobacco: Never Substance Use Topics Alcohol use: Never Comment: caffeine: 2-3 cups per day Drug use: Never FAMILY HISTORY Family History Problem Relation Name Age of Onset Bone cancer Maternal Grandmother Heart attack Paternal Grandmother Lung cancer Paternal Grandfather SURGICAL HISTORY Past Surgical History: Procedure Laterality Date ANTERIOR CRUCIATE LIGAMENT REPAIR KNEE LIGAMENT RECONSTRUCTION SALPINGECTOMY Bilateral 02/25/2024 davinci SPINAL FUSION REVIEW OF SYSTEMS Review of Systems: Review of Systems Constitutional: Negative. HENT: Negative. Eyes: Negative. Respiratory: Negative. Cardiovascular: Negative. Gastrointestinal: Negative. Genitourinary: Negative. Musculoskeletal: Negative. Skin: Negative. Neurological: Negative. All other systems reviewed and are negative. Hematological: Negative. Endocrine: Negative. Allergic/Immunologic: Negative. OBJECTIVE Objective: Physical Exam Constitutional: Appearance: Normal appearance. She is normal weight. HENT: Head: Normocephalic. Cardiovascular: Rate and Rhythm: Normal rate. Pulses: Normal pulses. Pulmonary: Effort: Pulmonary effort is normal. Breath sounds: Normal breath sounds. Abdominal: Palpations: Abdomen is soft. Comments: Incisions healing well Musculoskeletal: General: Normal range of motion. Neurological: General: No focal deficit present. Mental Status: She is alert and oriented to person, place, and time. Psychiatric: Mood and Affect: Mood normal. Behavior: Behavior normal. Thought Content: Thought content normal. Judgment: Judgment normal. Vitals and nursing note reviewed. Vitals: Estimated body mass index is 34.26 kg/m as calculated from the following: Height as of 8/7/24: 5'. Weight as of this encounter: 175 lb 6.4 oz. BP: 122/80 Patient's last menstrual period was 02/04/2024. ASSESSMENT & PLAN ICD-10-CM 1. Postop check Z09 Post Op Follow Up: Patient presents today for a one week postop check after having a Da Kyle assisted Laparoscopic bilateral salpingectomy. Patient is doing well but has minor complaints of pain. Incisions has been noted as healing well with no signs and symptoms of infection. Restrictions lifted Follow Up: Pt will follow up for annual or sooner if needed Documented by SHALONDA Newman on behalf of: SHALONDA Newman documented in this encounterHermann Area District [id number] Telephone encounter Note* Telephone Encounter - She De Jesus RN - 03/07/2024 10:15 AM EDT Neuro SPINE CARE COORDINATION QUICK NOTE SURGERY DATE: ACDF C6/7 on (Date: 08/24/2023) LM to the pt to call to clarify as Zanaflex was not prescribed by our office. [facility] Work Phone: 1(494) 541-752509-03-2024 Miscellaneous Notes* Telephone Encounter - She De Jesus RN - 03/07/2024 10:15 AM EDT Neuro SPINE CARE COORDINATION QUICK NOTE SURGERY DATE: ACDF C6/7 on (Date: 08/24/2023) LM to the pt to call to clarify as Zanaflex was not prescribed by our office. documented in this encounterBerger Hospital07-24-2024 Telephone encounter Note * Telephone Encounter - She De Jesus RN - 01/26/2024 12:13 PM EDT Neuro SPINE CARE COORDINATION QUICK NOTE The script was faxed but pt has not schedule the cervical plain films. She will call facility todayto schedule. Pt is aware that the CD will need to be mailed to the office or images pushed via PACK system. [facility] Work Phone: 1(334) 512-991607-24-2024 Miscellaneous Notes* Telephone Encounter - She De Jesus RN - 01/26/2024 12:13 PM EDT Neuro SPINE CARE COORDINATION QUICK NOTE The script was faxed but pt has not schedule the cervical plain films. She will call facility todayto schedule. Pt is aware that the CD will need to be mailed to the office or images pushed via PACK system. documented in this encounterBerger Hospital07-22-2024 Telephone encounter Note * Telephone Encounter - Joo Cruz MD - 01/24/2024 10:48 AM EDT Call placed to the patient as she [...] phone call. Joo Cruz MD Spine Surgery. [facility] Work Phone: 1(135) 183-138207-22-2024 Miscellaneous Notes* Telephone Encounter - Joo Cruz MD - 01/24/2024 10:48 AM EDT Call placed to the patient as she [...] Cruz MD Spine Surgery. documented in this encounterBerger Hospital07-15-2024 Telephone encounter Note * Telephone Encounter - She De Jesus RN - 01/17/2024 8:25 AM EDT Neuro SPINE CARE COORDINATION QUICK NOTE Call to the pt @ Dr. Cruz request Pt will have x rays done locally ( she will my chart the facility name and fax) Virtual apt with Dr. Cruz on 01-21-24 @ 4 20 pm [facility] Work Phone: 1(857) 893-421407-15-2024 Miscellaneous Notes* Telephone Encounter - She De Jesus RN - 01/17/2024 8:25 AM EDT Neuro SPINE CARE COORDINATION QUICK NOTE Call to the pt @ Dr. Cruz request Pt will have x rays done locally ( she will my chart the facility name and fax) Virtual apt with Dr. Cruz on 01-21-24 @ 4 20 pm documented in this encounterBerger Hospital06-20-2024 Telephone encounter Note * Telephone Encounter - Godfrey Martin MA - 12/23/2023 6:46 AM EDT Printed and placed in pcp inbox. Godfrey Martin MA December 23, 2023 6:54 AM [facility]06-20-2024 Miscellaneous Notes* Telephone Encounter - Godfrey Martin MA - 12/23/2023 6:46 AM EDT Printed and placed in pcp inbox. Godfrey Martin MA December 23, 2023 6:54 AM documented in this encounterBerger Hospital06-10-2024 Telephone encounter Note * Telephone Encounter - Reuben Agrawal PA-C - 12/13/2023 4:44 PM EDT Rx sent as requested. [facility]06-10-2024 Miscellaneous Notes* Telephone Encounter - Reuben Agrawal PA-C - 12/13/2023 4:44 PM EDT Rx sent as requested. * Telephone Encounter - Liliam Rees MA - 12/13/2023 7:35 AM EDT Patient is requesting a medication refill. Last appointment: 09/10/2023 Next scheduled appointment: Requested Prescriptions Pending Prescriptions Disp Refills celecoxib (CELEBREX) 200 mg capsule [Pharmacy Med Name: CELECOXIB 200 MG CAPSULE] 30 capsule 5 Sig: take 1 capsule by mouth every day Liliam Rees MA December 13, 2023 7:35 AM documented in this encounterBerger Hospital06-10-2024 Telephone encounter Note * Telephone Encounter - Liliam Rees MA - 12/13/2023 7:35 AM EDT Patient is requesting a medication refill. Last appointment: 09/10/2023 Next scheduled appointment: Requested Prescriptions Pending Prescriptions Disp Refills celecoxib (CELEBREX) 200 mg capsule [Pharmacy Med Name: CELECOXIB 200 MG CAPSULE] 30 capsule 5 Sig: take 1 capsule by mouth every day Liliam Rees MA December 13, 2023 7:35 AM [facility]05-28[facility] Telephone encounter Note* Telephone Encounter - Reuben Agrawal PA-C - 11/30/2023 12:15 PM EDT Rx prescribed by neurosurg. Please forward to neurosurg as she has maintained care with that team. Reuben Agrawal PA-C [facility]05-28-2024 Miscellaneous Notes* Telephone Encounter - Reuben Agrawal PA-C - 11/30/2023 12:15 PM EDT Rx prescribed by neurosurg. Please forward to neurosurg as she has maintained care with that team. Reuben Agrawal PA-C * Telephone Encounter - Nilda Herndon MA - 11/30/2023 10:32 AM EDT Distance Health: 09/10/23 Last ov: 04/09/23 Next ov: none Patient requests via MyChart refills as follows: Requested Prescriptions Pending Prescriptions Disp Refills gabapentin (NEURONTIN) 100 mg capsule 120 capsule 2 Sig: TAKE 2 CAPSULES BY MOUTH TWICE A DAY FOR 90 DAYS Please review and advise. Nilda Herndon MA documented in this encounterBerger Hospital05-28-2024 Telephone encounter Note * Telephone Encounter - Nilda Herndon MA - 11/30/2023 10:32 AM EDT Distance Health: 09/10/23 Last ov: 04/09/23 Next ov: none Patient requests via MyChart refills as follows: Requested Prescriptions Pending Prescriptions Disp Refills gabapentin (NEURONTIN) 100 mg capsule 120 capsule 2 Sig: TAKE 2 CAPSULES BY MOUTH TWICE A DAY FOR 90 DAYS Please review and advise. Nilda Herndon MA [facility]05-14-2024 Telephone encounter Note* Telephone Encounter - Cameron Stauffer LPN - 11/16/2023 10:24 AM EDT Received request for refill of the following [...] 08/04/2023 0.79 0.58 - 0.96 mg/dL Final [facility]05-14-2024 Miscellaneous Notes* Telephone Encounter - Cameron Stauffer LPN - 11/16/2023 10:24 AM EDT Received request for refill of the following [...] - 0.96 mg/dL Final documented in this encounterBerger Hospital05-10-2024 Telephone encounter Note * Telephone Encounter - Marv Murillo RN - 11/12/2023 1:39 PM EDT Incoming fax received at 1 E office and scanned into patient chart. [facility]-10-2024 Miscellaneous Notes* Telephone Encounter - Marv Murillo RN - 11/12/2023 1:39 PM EDT Incoming fax received at 1 E office and scanned into patient chart. documented in this encounterBerger Hospital04-29-2024 History of Present illness Narrative* Joo Cruz MD - 11/01/2023 3:21 PM EDT SPINE SURGERY FOLLOW UP This is an in-person visit. SERVICE DATE: 11/01/2023 SURGERY DATE: ACDF C6/7 on (Date: 08/24/2023) Ladi Byers is seen for 10 week post operative follow up. She reports she is doing well. Has noticed improvements in hand function. Reports upper back pain, that improved with nsaids. She previously has tried dry needling which improved this pain. No issueswith swallowing. She is interested in therapy for [...] severe depression 20-27 Severe depression PHYSICAL EXAM: [facility] 07/19/2023 (Exact Date) GENERAL APPEARANCE: Well nourished, [...] TIME: 3:21 PM PAGER: documented in this encounterBerger Hospital04-29-2024 NoteHNO ID: [id number] Author: JOO CRUZ MD Service: ? Author Type: Physician Type: Progress Notes Filed: 11/01/2023 15:36 Note Text: SPINE SURGERY FOLLOW UP This is an in-person visit. SERVICE DATE: 11/01/2023 SURGERY DATE: ACDF C6/7 on (Date: 08/24/2023) Ladi Beyrs is seen for 10 week post operative [...] severe depression 20-27 Severe depression PHYSICAL EXAM: [facility] 07/19/2023 (Exact Date) GENERAL APPEARANCE: Well nourished, [...] DATE: November 01, 2023 TIME: 3:21 PM PAGER:[facility] [id number] History of Present illness Narrative* Yuly Summers, RT(R) - 11/01/2023 3:00 PM EDT Radiology Service Progress Note PATIENT NAME: Ladi Byers DATE OF SERVICE: November 01, 2023 TIME: 3:18 PM PATIENT IDENTITY VERIFICATION COMPLETED USING TWO (2) IDENTIFIERS: Name and Date of confirmedby patient verbally and Name and Date of [...] PATIENT PRESENTS WITH AN IMPLANTABLE OR ATTACHED POWER TOOL REPAIR TECHNICIAN: No RADIOLOGY DEPARTMENT: General X-ray: Exam(s) Completed: Spine X-Ray(s): Cervical AP / LAT PERIPHERAL IV DATA: Not applicable SIGNED BY: RT Carlos Manuel(Jeremy) November 01, 2023 3:18 PM documented in this encounterBerger Hospital04-29-2024 NoteHNO ID: [id number] Author: YULY SUMMERS RT(R) Service: Radiology Author [...] PATIENT PRESENTS WITH AN IMPLANTABLE OR ATTACHED POWER TOOL REPAIR TECHNICIAN: No RADIOLOGY DEPARTMENT: General X-ray: Exam(s) Completed: Spine X-Ray(s): Cervical AP / LAT PERIPHERAL IV DATA: Not applicable SIGNED BY: RT Carlos Manuel(R) November 01, 2023 3:18 [facility]03-25-2024 Miscellaneous Notes* Telephone Encounter - She De Jesus RN - 09/27/2023 8:41 AM EDT Neuro SPINE CARE COORDINATION QUICK NOTE SURGERY [...] Routed to Dr. Cruz for review/ Refill * Telephone Encounter - Shivani Clements - 09/27/2023 8:13 AM EDT Last filled: 09/07/23 Last OV: 09/10/23 documented in this encounterBerger Hospital03-08-2024 History of Present illness Narrative* Reuben Agrawal PA-C - 09/10/2023 12:19 PM EST Telemedicine Visit - Distance [facility] Virtual Visit Note Patient seen on vivit Video Visit platform. Location of patient: [place] Reuben Agrawal PA-C I have communicated my name and active licensure. The patient's identity and physical location wereverified at the time of this visit. Either the patient or their legal customer service representative teacher has been informed of the risks and benefits of -- and alternatives to -- treatment through a remote evaluation andconsents to proceed with the evaluation remotely. History [...] she reports was to help cervical radiculopathy andbalance. She's maintained her follow ups with neurosurgery. She's reports her flexeril was changed to Tizanidine. She states she has a 10 pound lifting restriction. She is not doing PT for her neck -but is in OT for other medical conditions. [...] I should be receiving information from her drupal web developer regarding her disability case. PAST MEDICAL HISTORY [...] care as recommended by neurosurgery. Advised that ifshe wishes to donate plasma to reach back out to me after 11/22/2023 if a form needs completed. Recommend follow up in April for annual physical. Reuben Agrawal PA-C documented in this encounterBerger Hospital03-08-2024 NoteHNO ID: [id number] Author: JOO CRUZ MD Service: ? Author [...] DATE: September 10, 2023 TIME: 9:38 AM PAGER:[facility] [id number] History of Present illness Narrative* Joo Cruz MD - 09/10/2023 9:38 AM EST SPINE SURGERY FOLLOW UP This is an [...] TIME: 9:38 AM PAGER: documented in this encounterBerger Hospital03-07-2024 Miscellaneous Notes* Telephone Encounter - Liliam Rees MA - 09/09/2023 9:33 AM EST Fax came over for Occupational Therapy Re-certification Note from [facility]. Physician signed paperwork and was faxed back over to [facility] with confirmation. Liliam Rees MA September 09, 2023 9:35 AM documented in this encounterBerger Hospital03-04-2024 Miscellaneous Notes* Telephone Encounter - Talita Grewal - 09/06/2023 4:43 PM EST Pt returned your call. [phone] * Telephone Encounter - She De Jesus RN - 09/06/2023 11:42 AM EST Neuro SPINE CARE COORDINATION QUICK NOTE Procedure(s): ACDF C6/7 ( 08-24-23 ) Call to the pt and LM on identified VM documented in this encounterBerger Hospital02-23-2024 Miscellaneous Notes* Telephone Encounter - Marv Murillo RN - 08/27/2023 9:12 AM EST Incoming mail to 1 E office [employer]. Insurance document scanned into patient chart. documented in this [facility]02-22-2024 Miscellaneous Notes* Telephone Encounter - Palak Holbrook RN - 08/26/2023 9:10 AM EST Images from the original note were not included. CALL FOR ER FOLLOW UP: Ladi was seen for cervical spinal fusion at Date:08/24/2023 - 08/25/2023 (30 hours) [facility] How is patient doing now? Sore from [...] MAY REPEAT IN 1 HOUR Palak INTERIANO data entry processor of M .Mizanin PA-C [facility] [address] [place] [address] TEL FAX documented in this encounterBerger Hospital02-21-2024 NoteHNO ID: [id number] Author: NAPOLEON BISHOP MD Service: General Internal [...] which included preparing to see the patient, [id number] patient care, completing clinical documen (more content not included)...[facility] [id number] NoteHNO ID: [id number] Author: DERIK AMARAL MD Service: Orthopaedic Surgery [...] Flexion Arm Extension Wrist Ext Wrist Flex License Examiner HI R 5 5 5 5 5 [...] page the orthopaedic on-call resident at: [facility] ([id number]) for [facility] patients [address] for [facility] patients [address] for [facility] patients [address] for [facility] patients [address] for [facility] patients Please page [facility] ([id number]) from 7am-5pm and on weekends for any issues.[facility] HospitalNmngwkom11-43-7701 NoteHNO ID: [id number] Author: JOO CRUZ MD Service: Neurosurgery Author [...] page the orthopaedic on-call resident at: [facility] ([phone]) for [facility] patients [address] for [facility]02-20-2024 NoteHNO ID: [id number] Author: RADAMES CARTY AA Service: ? Author Type: Navy Material Inspector Type: Anesthesia Procedure Notes Filed: 08/24/2023 12:56 [...] August 24, 2023 TIME: 12:55 PM CSN: [id number] NoteHNO ID: [id number] Author: RADAMES CARTY AA Service: ? Author Type: Navy Material Inspector Type: Anesthesia Procedure Notes Filed: 08/24/2023 12:49 [...] August 24, 2023 TIME: 12:46 PM CSN: [id number] NoteHNO ID: [id number] Author: JOO CRUZ MD Service: Neurosurgery Author Type: Physician Type: Progress Notes Filed: 08/24/2023 12:07 Note Text: Patient seen and examined. No neurological changes with prolonged hyperextension of neck. Moving all limbs 5/5. Reports L>R radicular complaints. Understands plan for surgery along with associated risks. All questions answered. Proceed with surgery. Joo Cruz MD Spine Surgery. [facility] [id number] Miscellaneous Notes* Telephone Encounter - She De Jesus, MOISE - 08/19/2023 3:21 PM EST Neuro SPINE CARE COORDINATION QUICK NOTE Pt is aware PRASNANA has approved her surgery . We will move forward with the appeal at this time. * Telephone Encounter - Katey Orellana - 08/19/2023 3:05 PM EST Call received for Joo Cruz MD regarding [...] appointment: 09/10/2023 Best number to reach caller: [phone] Best time to reach caller: anytime Is it OK to leave a detailed voice message? Yes Katey Orellana documented in this encounterBerger Hospital02-09-2024 Miscellaneous Notes* Telephone Encounter - Reuben Agrawal PA-C - 08/13/2023 10:51 AM EST Pt presented forms for healthcare provider regarding ability to donate up to 850mL of plasma twice a week due to her being dx with cerebellar tonsillar ectopia. I'm uncertain of any restrictions for plasma donation regarding her cerebellar tonsillar ectopia - of note - also planned to have C-spine surgery. Any recommendations/restrictions? Reuben Agrawal PA-C documented in this encounterBerger Hospital02-06-2024 History of Present illness Narrative* Rukhsana Webb APRN.PARENT PARTNER - 08/10/2023 3:30 PM EST Images from the original note were [...] just get past . Currently employed at [employer]. 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 Smoker and [...] Physical Therapy and Occupational therapy : At [facility] 01/2023 - 05/31/2023 - 22 visits , [...] Months -- Frequency: Continuous Continuous Intervention/Comfort measure: Medication;Relaxation;Aromatherapy to promote a healing environment;Cold;Education;Exercise;Heat;Massage;Pillow support;Positioning -- Litigation: No Workers' Compensation: No [...] Follow up: PRN Imaging Ordered: None SIGNATURE: Rukhsana Webb APRN.CNP PATIENT NAME: Ladi Byers DATE:August 10, 2023 TIME:3:14 PM documented in this encounterBerger Hospital02-02-2024 Miscellaneous Notes* Telephone Encounter - She De Jesus RN - 08/06/2023 10:01 AM EST Neuro SPINE CARE COORDINATION QUICK NOTE Call to the pt - due to ATB. Use for the tooth infection - she will postponed to 08-24-[address] Cruz documented in this encounterBerger Hospital01-11-2024 Evaluation note* Encounter Date Diagnosis Assessment Notes Treatment Notes Treatment Clinical Notes Jul, Irritant contact dermatitis, unspecified trigger [...] understanding and is agreeable with treatment plan. [employer] Other 12-29-2023 History of Present illness Narrative* Joo Cruz [...] 38F, RHD, vaper, currently employed at [employer], but enrolled in nursing school reports a [...] BICEPS TRICEPS DELTS Wrist Ext Wrist Flex License Examiner HI R 5 5 5 5 5 [...] of cervical region (primary encounter diagnosis) Ladi Byesr has a condition that requires further workup. [...] TIME: 11:13 AM PAGER: documented in this encounterBerger Hospital12-15-2023 Instructions* Patient Instructions* Rukhsana Webb APRN.[facility] - 06/18/2023 8:33 AM EST Images from the original note were not included. Chronic Neck Pain Overview: Neck pain is common. Approximately three out of four [place] adults will experience an episode of neck [...] or narcotic medications are not recommended for shelter use. Other medications, particularly antidepressants, may be [...] that require prompt, urgent medical attention. SIGNATURE: Rukhsana Webb APRN.CNP PATIENT NAME: Ladi Byers DATE: June [...] that require prompt, urgent medical attention. SIGNATURE: Rukhsana Webb APRN.CNP PATIENT NAME: Ladi Byers DATE: June 18, 2023 TIME: 8:33 AM documented in this encounterBerger Hospital12-15-2023 History of Present illness Narrative* Rukhsana Webb APRN.CNP - 06/18/2023 8:00 AM EST Images [...] just get past . Currently employed at [employer]. 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 Smoker and [...] Physical Therapy and Occupational therapy : At [facility] 01/2023 - 05/31/2023 - 22 visits , [...] Continuous Continuous Intervention/Comfort measure: Medication;Reposition;Relaxation;Exercise;Heat;Massage;Pillow support; Positioning;Therapeutic techniques-[facility] -- Litigation: No Workers' Compensation: No YELLOW [...] Physical Therapy and Occupational therapy : At [facility] 01/2023 - 05/31/2023 - 22 visits ,restarted [...] Cervical interlaminar ANURAG reviewed in detail with shalonda dhillon at time of today's appointment. She [...] after interventional procedure Imaging Ordered: None SIGNATURE: Rukhsana Webb APRN.CNP PATIENT NAME: Ladi Byers DATE:June 18, 2023 TIME:7:56 AM documented in this encounterBerger Hospital12-11-2023 Miscellaneous Notes* Telephone Encounter - Godfrey Martin MA - 06/14/2023 1:28 PM EST OT note received from rehab services. Needs signed and faxed back. In pcp inbox. Godfrey Martin MA June 14, 2023 1:29 PM documented in this encounterBerger Hospital11-30-2023 Miscellaneous Notes* Telephone Encounter - Reuben Agrawal PA-C - 06/03/2023 3:54 PM EST Notified the contact who had notified me of it not being covered Reuben Agrawal PA-C documented in this encounterBerger Hospital11-30-2023 Miscellaneous Notes* Telephone Encounter - Godfrey [...] calling: self Call patient at: on cell [phone] (home) [phone] (cell) Was an appointment scheduled: No Closing statement: Results or non-symptom based questions: Thank you for calling [facility], your call will be returned within the next business day. Ladi Bocanegra documented in this encounterBerger Hospital11-30-2023 Miscellaneous Notes* Telephone Encounter - Reuben [...] - appt 06/18 We never received any [employer]PER [employer] records that we requested including any paps Maintain care with [employer]ATE [employer]INTER High risk to be 35+ years old smoking and on combination oral control. Increased risk for blood clots/stroke. Would not recommend she be on it. Work with COPPER PLATE PRINTER regarding options/recommendations. Will send [employer] message to pt Reuben Agrawal PA-C documented in this encounterBerger Hospital10-13-2023 History of Present illness Narrative* Nitza Valdovinos LSW - 04/16/2023 1:45 PM EDT Primary Care Social Work Provider Action / FYI PCP Action Date of Service: 04/16/2023 Patient identified by name and date of : Yes- via [employer]ek Mobile Referral Source: Pursue Patient Outreach: Follow Up Mode of Outreach: [employer] Response Time: Contact made Patient Identified Needs: Food: Resource eligibility limitations Assessment Provide Patient Resources PCSW Action Taken Provide Patient Resources Is the patient ready for discharge? Yes Social Barrier resolution or patient discharge reason: Patient self-managing with resources given Narrative: PCSW received return message from patient via Mychart. She stated she is interested in additional food resources. At this time she is awaiting SNAP and Medicaid benefits. SW was able to locate local food pantries that serve patient's area. SW provided a list and encouraged patient to reach out for additional needs. Interventions: Discharge from PCSW panel JACOB Sanchez April 16, 2023 3:33 PM [facility] [employer] Wednesdays 1pm-5pm [address] [facility] [employer] [address] [place], [place] - [address] Mon,Tues, Fri 9am-12pm and 1pm-3pm [facility] [employer] [address] [place], [place] - [address] Community Action Commission of [facility] Open M-F 9am-3:30pm [address] [employer] [facility] [phone] documented in this encounterBerger Hospital10-12-2023 History of Present illness Narrative* Ladi [...] 15, 2023 10:46 AM documented in this encounterBerger Hospital10-09-2023 Miscellaneous Notes* Telephone Encounter - Yue Ross MA - 04/12/2023 11:52 AM EDT Records received and printed for provider will hand to provider documented in this encounterBerger Hospital10-06-2023 History of Present illness Narrative* Reuben Agrawal PA-C - 04/09/2023 5:16 PM EDT Subjective HPI Patient here to establish care. She'd like to get nearly all of her medical care in one system - except for psychiatry because she likes her psych and it's quite difficult to find a new psychiatrist. 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 Pt currently in [employer] school at [employer]. Psych: She reports a hx of depression, [...] denied because she needed to see a engineering aid. She suspects they didn't submit the right information for authorization. She alsoreports that the engineering aid verbally told psychiatry it was okay - but that documentation suggested otherwise so psychiatry will not refill/change medications. She had a stress test previously withcardiology - reports it ws done at [facility] which [facility]. TMJ: Pt reports she was previously [...] She takes Imitrex prn. She's followed by [facility] - mild cerebellar tonsillar ectopia. MRI C-spine ordered. C-spine: She reports ongoing neck pain and upper back pain. She has had imaging including xray. She's followed by [facility] - mild cerebellar tonsillar ectopia. MRI C-spine ordered. She requests an order for PT and OT - previously was seeing therapy but wishes to transfer all care to [facility]. She takes naproxen daily and flexeril prn. IBS: She reports a history of irritable bowel syndrome. She has had a colonoscopy in the past - done at [facility]. She takes Bentyl prn with benefit. PUD: She reports a history of a gastric ulcer. She has had an EGD in the past - done at [facility]. She takes pantoprazole daily. She also takes naproxen daily. She also reports hx of fibromyalgia and nephrolithiasis. [employer]ATE PRINTER: She's followed by [employer]ATE [employer] annually. She has a history of abnormal [...] CONSULT TO PHYSICAL THERAPY - CONSULT TO SECOND RIGGER 5. TMJ disorder, unspecified - ICD9: 524.60, [...] CONSULT TO PHYSICAL THERAPY - CONSULT TO SECOND RIGGER 8. Upper back pain - ICD9: 724.5, ICD10: M54.9 Likely also related to neck pain. Referral to PT/OT made. - CONSULT TO PHYSICAL THERAPY - CONSULT TO SECOND RIGGER 9. History of peptic ulcer - ICD9: [...] that required tx and is followed by COP[employer] PLATE PR[employer] annually. Will request records. Records requested Colonoscopy with pathology EGD with pathology Stress test Previous PT and OT notes Previous PCP records for history Last 1-2 years of labs from PCP Last paps and note from COPPER [employer]ATE [employer] EKGs done within the past year To Do Still need to obtain/review family history Review records Evaluate if she had Hep C screening Update pap in health maintenance Update vaccinations on file Recheck BP Reuben Agrawal PA-C I spent a total of 95 minutes on the date of the service which included preparing to see the patient, [id number] patient care, completing clinical documentation, performing a medically appropriate examination, counseling and educating the patient/family/caregiver, and ordering medications, tests,or procedures. documented in this encounterBerger Hospital10-06-2023 Miscellaneous Notes* Telephone Encounter - Liliam Rees MA - 04/09/2023 3:58 PM EDT Just sent over a request for medical records for [facility]. Liliam Rees MA April 09, 2023 3:59 PM documented in this encounterBerger Hospital10-06-2023 Miscellaneous Notes* Telephone Encounter - Liliam Rees MA - 04/09/2023 3:55 PM EDT Just sent over a request for medical records for [facility]. Liliam Rees MA April 09, 2023 3:56 PM documented in this encounterBerger Hospital10-06-2023 Miscellaneous Notes* Telephone Encounter - Liliam Rees MA - 04/09/2023 3:53 PM EDT Just sent over a request for medical records for [facility] HAND TILE MAKER. Liliam Rees MA April 09, 2023 3:54 PM documented in this encounterBerger Hospital10-06-2023 Miscellaneous Notes* Telephone Encounter - Liliam Rees MA - 04/09/2023 3:49 PM EDT Just sent over a request for medical records for [facility]. Liliam Rees MA April 09, 2023 3:51 PM documented in this encounterBerger Hospital10-04-2023 History of Present illness Narrative* Maurice Edward MD - 04/07/2023 3:05 PM EDT GENERAL VISIT Patient seen on [employer] video visit platform. I have communicated my name and active licensure. The patient's identity and physical location wereverified at the time of this visit. Either the patient or their legal customer service representative teacher has been informed of the risks and benefits of -- and alternatives to -- treatment through a remote evaluation andconsents to proceed with the evaluation remotely. CC: Establish care with PCP, needs Cardiac Consult including ECHO for abn EKG per PSYCHIATRY Ladi Byers is a 38 year old female who presents with with a complicated h/o of being followed by [facility], and multiple psychiatry meds and diagnoses, needing to establish with a [facility] PCP (prefers [facility] as lives near [place]), as well as needing a Map Plotter through [facility], tomedically clear her for adjustment of her psychiatric medications, d/t findings on EKG performed atPSYCH evaluation by her local PSYCH team and [facility]. Dx Cerebral Tonsillar Ectopia, and mild post spondylosis C5-C7, seeing PT and OT, has been very helpful. Had last PT appt that insurance wouldcover, as of right now no surgery will be needed, d/t relief she has been able to achieve, but needs relationship with PCP to allow additional PT/OT authorization. Sees Mental health for PTSD, Anxiety and Depression, from [facility] ([place] [facility]), and PSYCH won't recommend change in meds till cardiac clearance. Patient used to take seroquel for sleep, but given EKG PSYCH says needs ECHO, but insurance won't approve ECHO w/o consult to CARDIOLOGY first. Per CARDIOLOGY NOTE from [facility], dated 03-04-23: Patient here for 1 year follow up chest pain and palpitations. She was seen in [facility] ED in November 2022 for GI issues. [...] as needed Kylee Valencia MD Interventional Cardiology [facility] Reviewed: problem list, medical/surgical/family/social history, medications, and allergies EKG: asked patient to upload through [facility], see under SCANNED DOCUMENTS from today Unconfirmed reading: Sinus rhythm with frequent VPC's, RBBB (120+ ms QRS orientation), Left anterior fascicular block, Moderate T-Wave abnormality, Abnormal EKG (Vent rate 69, ME 122, QRS 138, QT/BGb983/507 ALLERGIES Allergen Reactions Cariprazine Other: See Comments, [...] on last reading, patient is comfortable with [place] location - ESTABLISH WITH PRIMARY CARE - [...] which included preparing to see the patient, ywsv-yr-enmq patient care, completing clinical documentation, obtaining and/or reviewing separately obtained history, performing a medically appropriate examination, counseling and educating the pat ient/family/caregiver, ordering medications, tests, or procedures, communicating with other HCPs (not separately reported), independently interpreting results (not separately reported), communicatingresults to the patient/family/caregiver, and care coordination (not separately reported). Maurice Edward MD documented in this encounterBerger Hospital10-04-2023 Nurse Note* Madelyn Meade MA - 04/07/2023 9:35 AM EDT Items addressed in this encounter: Virtual Visit Pre Check In Checked in name and location verified patient aware of Telehealth appointment with Dr Wagner Meade MA April 07, 2023 9:35 AM 9:35 AM documented in this encounterBerger Hospital09-22-2023 Miscellaneous Notes* Telephone Encounter - Néstor Lees - 03/26/2023 11:10 AM EDT General Call Caller : pt Contact Reason for Call : Pt would like to discuss receiving an order for an ECHO. She also would like to discuss the continuation of Gabapentin, as the prescribing physician will no longer refill Patient requesting return call ? Yes documented in this encounterBerger Hospital09-14-2023 History of Present illness Narrative* Zoraida Valle PA-C - 03/18/2023 7:14 AM EDT This note was created using NoteWriter. Subjective [...] able to work. 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 Can be vv Pt given number [phone] Or can call [phone]. I spent a total of 50 minutes on the date of the service which included preparing to see the patient, oyqi-yw-dogy patient care, completing clinical documentation, obtaining and/or reviewing separately obtained history, counseling and educating the patient/family/caregiver, ordering medications, sascha ts, or procedures, communicating with other HCPs (not separately reported), independently interpreting results (not separately reported), communicating results to the patient/family/caregiver, and care coordination (not separately reported). This virtual visit was conducted via [employer] which is a HIPAA compliant video platform. I received consent from the patient to perform the visit using this platform. The visit required patient-provider interaction for the medical decision making as documented herein. I have communicated my name and active licensure. The patient's identity and physical location wereverified at the time of this visit. Either the patient or their legal customer service representative teacher has been informed of the risks and benefits of -- and alternatives to -- treatment through a remote evaluation andconsents to proceed with the evaluation remotely. documented in this encounterBerger Hospital09-01-2023 History of Present illness Narrative* Tristan Guallpa MD - 03/05/2023 11:00 AM EDT Impression: This is Ms. Ladi Byers, a 38 year old female who [facility] up. New [...] care. Tristan Guallpa MD Staff, [facility] [place] HPI: This is Ms. Ladi Byers, a 38 year old female who presents to the [facility] for follow up. Review: Just seen by virtual visit 02/26/2023. This is Ms. Ladi Byers, a 38 year old female who presents to the [facility] for follow up. Seen [...] care for self Pain like this since Quality? 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 documented in this encounterBerger Hospital08-31-2023 NotePatient here for 1 year follow up chest pain and palpitations. She was seen in [facility] ED in November 2022 for GI issues. It was advised she stop Seroquel due to her ECG. She stopped it for awhile, but then started it back up less than 1 week ago. Still gets intermittent chest pain and palpitations.[facility]08-31-2023 NoteCardiology Follow Up Progress Note [...] All questions were answere (more content not included)...[facility]08-29-2023 Miscellaneous Notes* Telephone Encounter - Corina Osman - 03/02/2023 10:07 AM EDT Received Attending Physician Statement by fax from [employer]. Scanned to patient's chart for review. documented in this encounterBerger Hospital08-29-2023 Miscellaneous Notes* Telephone Encounter - Genaro Vee RN - 03/02/2023 9:[address] Guallpa aware of outside medical records available in scanned documents Genaro Vee RN BSN [facility] [place] * Telephone Encounter - Corina Osman - 03/02/2023 8:54 AM EDT Received PT Recertification addendum by fax from [facility]. Scanned to patient's chart for provider review. documented in this encounterBerger Hospital08-28-2023 Miscellaneous Notes* Telephone Encounter - Genaro Vee RN - 03/01/2023 1:47 PM EDT Called Kodi at [facility] Explained that Dr Guallpa and pt had a discussion that pt's PCP would order the aquatherapy Per her request I faxed office note from Dr Guallpa attn Kodi [phone] Genaro Vee RN BSN [facility] [place] * Telephone Encounter - Genaro Vee RN - 03/01/2023 12:[address] Ramu Vee RN BSN [facility] [place] * Telephone Encounter - Josi Mark - 03/01/2023 11:57 AM EDT Kodi from [facility] calling to see if the provider could sign and fax back the recertification ZACH. She can be reached at [phone] x [phone] if any questions. * Telephone Encounter - Genaro Vee RN - 02/22/2023 2:[address] Ramu Vee RN BSN [facility] [place] * Telephone Encounter - Josi Mark - 02/22/2023 2:21 PM EDT Received a fax from [facility] requesting a physician signature on a P.T. recertification dated 02/19/23. Scanned into [employer]. documented in this encounterBerger Hospital08-25-2023 History of Present illness Narrative* Tristan Guallpa MD - 02/26/2023 11:00 AM EDT I received consent from the patient to perform the visit as a virtual encounter. Individuals who were included in, or assisted with the encounter were: Ladi Byers Tristan Guallpa MD Location: home Impression: This is Ms. Ladi Byers, a 38 year old female who presents to the [facility] for follow up. Seen [...] needed Tristan Guallpa MD Staff, [facility] [place] HPI: This is Ms. Ladi Byers, a 38 year old female who presents to the [facility] for follow up. Review: Last seen 01/15 by virtual visit. This is Ms. Ladi Byers, a 37 year old female who presents to the [facility] for follow-up. Seen previously [...] Sabra maneuver exercises to the patient via [employer]. - Follow-up with primary care. Could discuss [...] patient/documenting in the chart. documented in this encounterBerger Hospital06-30-2023 Miscellaneous Notes* Telephone Encounter - Genaro Vee RN - 01/01/2023 4:51 PM EDT Called [facility] [phone] She reports she evaluated pt last week [...] any further therapy with pt Genaro Vee [facility] [place] * Telephone Encounter - Janel Villagomez - 01/01/2023 3:51 PM EDT Received call from SARITHA Arguello at [facility], who has concerns about new symptoms patients is having. She would like to speak to either nurse or provider regarding this. Suandra Cell [phone] ok to leave message documented in this encounterBerger Hospital06-22-2023 Hospital Discharge instructions Patient Education 12/24/2022 [...] medicines. ?Antacids. ?Antidepressants. ?Antihistamines. ?Medicines for migraines. ?Gdrl-aqv-jbyhrlg pain medicine. ?Over-the counter diet supplements. Severe nausea and vomiting may require you to stay at the hospital. You may need IV fluids to prevent or treat dehydration. Follow these instructions at home: During an episode Take kwxr-yag-innavrt and prescription medicines only as told by [...] avoid spicy or fatty foods, such as albanian fries and pizza. General instructions Monitor your [...] provider. Document Revised: 01/28/2022 Document Reviewed: 01/28/2022 [employer] Patient Education 2022 [employer]. 12/24/2022 00:35:36 Hypokalemia Hypokalemia Hypokalemia means that [...] products, such as yogurt. General instructions Take poan-mec-jkjikzt and prescription medicines only as told by [...] provider. Document Revised: 03/05/2022 Document Reviewed: 03/05/2022 [employer] Patient Education 2022 [employer]. Follow Up Care 12/23/2022 19:37:14 With:Vito ROBERTSON Address: [address] [place] [phone] Business (1) When:12/27/2022 Comments:Call to discuss your ongoing cyclic vomiting.Abstain from marijuana for 6 months to determine if this may be the cause.Take antinausea meds only as prescribed. There is increased risk of these medications for you given your prolonged QTc. Only take 1 antiemetic at this time. Follow-up with your card iologist to discuss your QTc prolongation further. With:TERESA PATEL Address: [address] [place] [phone] [place] (1) When:12/27/2022 Comments:Call the office of your [...] weakness, or any new or worsening symptoms. [facility]06-21-2023 Evaluation + Plan noteExtracted from: Title:ED [...] by PCR 10/22/22 * Gastrin Level 11/09/22 [facility]05-06-2023 Hospital Discharge instructions Patient Education 11/07/2022 [...] products, such as yogurt. General instructions Take ftvm-gop-kxeuqoi and prescription medicines only as told by [...] provider. Document Revised: 03/05/2022 Document Reviewed: 03/05/2022 [employer] Patient Education 2022 [employer]. Follow Up Care 11/06/2022 14:31:05 With:Vito ROBERTSON Address: [address] [place] [address] Business (1) When: Unknown With:TERESA PATEL Address: [address] [facility], [place] [phone] Business (1) When: Unknown [facility]05-06-2023 Evaluation + Plan noteExtracted from: Title:Discharge [...] mg oral capsule With When Contact Information Padron MARCELO [address] [place] [address] Business (1) Additional Instructions: TERESA PATEL In 0 days [address], [place] [phone] Business (1) Additional Instructions: Extracted from: Title:ED [...] Date:11/19/2022 09:20:00 AM Scheduled Provider:Amara Palacio CNP Location:[facility] App[facility]ment Type:[facility] Follow Up Diagnostic Tests Pending * Clostridium Difficile PCR 11/06/22 * Acute Hepatitis A B C Panel 11/07/22 Future Scheduled Tests Laboratory* Fecal WBC Lactoferrin 10/22/22 * Giardia lamblia, Direct Detection EIA 10/22/22 * O & P Exam, Routine 10/22/22 * Clostridium Difficile PCR 10/22/22 * Enteric Panel by PCR 10/22/22 [facility]04-20-2023 Hospital Discharge instructions Patient Education 10/22/2022 [...] Follow these instructions at home: Medicines Take zwmt-avm-zxrvywi and prescription medicines only as told by [...] Watch your condition for any changes. Take piho-yeb-zsflqsv and prescription medicines only as told by [...] provider. Document Revised: 08/09/2020 Document Reviewed: 10/30/2019 [employer] Patient Education 2022 [employer]. Follow Up Care 10/14/2022 11:29:35 With:Amara Palacio CNP Address: When:1 month [facility] 01-26-2023 Evaluation + Plan note Future Scheduled Tests Laboratory* Qxqjb-3-Iuewkisdcgo 07/30/22 * Ceruloplasmin 07/30/22 * Antimitochondrial Antibody, [...] * Iron Level 07/30/22 * Transferrin 07/30/22 [facility]01-25-2023 Evaluation + Plan noteExtracted from: Title:ED [...] day(s), # 28 cap(s), Refills(s) 0, Pharmacy: [facility]/pharmacy #[id number], 152, cm, 07/29/22 2:29:00 EST, Height/Length [...] Daily, # 30 tab(s), Refills(s) 0, [id number], cm, 07/29/22 2:29:00 EST, Height/Length [...] day(s), # 56 tab(s), Refills(s) 0, Pharmacy: [facility]/pharmacy #[id number], 152, cm, 07/29/22 2:29:00 EST, Height/Length Dosing, 64, kg, 07/29/22 2:29:00 EST, Weight Dosing Automated Diff Basic Metabolic Panel CBC w/ Auto Diff CT Abdomen/Pelvis w/ Contrast eGFR Hepatic Function Panel Lipase Level U Beta Hcg Qual UA With Cult Reflex Future Appointments Appointment Date:07/30/2022 12:30:00 PM Scheduled Provider:Vito ROBERTSON MD Location:[facility] Appointment Type:[facility] Follow Up Future Scheduled Tests Laboratory* Gastrin Level 6/22/22 [facility]01-25-2023 Hospital Discharge instructions Patient Education 07/29/2022 [...] Follow these instructions at home: Medicines Take vtyt-tdl-wpwwcyt and prescription medicines only as told by [...] Watch your condition for any changes. Take zasf-umu-xgypxco and prescription medicines only as told by [...] 03/31/2006 Document Revised: 10/30/2019 Document Reviewed: 10/30/2019 [employer] Patient Education 2019 [employer] Follow Up Care 07/29/2022 02:21:57 With:Vito ROBERTSON Address: [address] [place] [phone] Business (1) When:08/01/2022 With:TERESA PATEL Address: [address] [facility] [phone] Business (1) When:08/01/2022 [facility]09-16-2022 Evaluation + Plan note Diagnostic Tests Pending * Clostridium difficile by PCR 03/20/22 Future Scheduled Tests Laboratory* Gastrin Level 12/24/21 [facility]09-15-2022 Evaluation + Plan note Future Scheduled Tests Laboratory* Clostridium difficile by PCR 03/19/22 * Gastrin Level 12/24/21 [facility] 09-15-2022 History of Present illness Narrative* Brooks Lamb [...] for internal providers or letter via the [employer] Postal Service for external providers. HPI: Ladi [...] Hives Reglan [Metoclopram* Mental Status Change Medications: busPIRone (BUSPAR) [...] 03/19/22 TIME: 8:13 AM CC: Amara Palacio, PARENT PARTNER documented in this encounterBerger Hospital08-18-2022 Hospital Discharge instructions Patient Education 02/19/2022 10:44:55 Peptic Ulcer, Amwu-mt-Dnsj Peptic Ulcer A peptic ulcer is a [...] need help quitting, ask your doctor. Take fjjd-ugg-beqwvms and prescription medicines only as told by [...] 09/15/2010 Document Revised: 12/27/2018 Document Reviewed: 12/27/2018 [employer] Patient Education 2020 [employer]. Follow Up Care 02/10/2022 14:51:10 With:MARCELO JUAREZ, BRITTNI Padron, [facility] Address: [address] [place], [place] [address] [place] [address] When:1 to 2 weeks Comments:Elevated liver enzymes. [facility] [id number] Hospital Discharge instructions Patient Education 02/09/2022 09:04:31 Endoscopy, Care After Procedure [facility] (CUSTOM) Endoscopy Care After Procedure Please read the instructions outlined below and refer to this sheet in the next few weeks. These discharge instructions provide you with general information on caring for yourself [facility] Your doctor may also give you specific [...] Document Re-Released: 12/13/2006 ExitCare Patient Information 2009 [employer]. Follow Up Care 12/24/2021 09:43:04 With:Vito ROBERTSON Address: [address] [place] [address] [employer] [place] (1) When:1 to 2 weeks Comments:Call for any problems. Office will call for follow up appointment [facility]08-01-2022 Hospital Discharge instructions Patient Education 02/02/2022 [...] Follow these instructions at home: Medicines Take behf-fil-ctncqev and prescription medicines only as told by [...] chlorine bleach. Be sure to: ?Read the field checker's instructions or read online resources to find [...] 03/31/2006 Document Revised: 11/15/2019 Document Reviewed: 11/15/2019 [employer] Patient Education 2019 [employer]. Follow Up Care 01/12/2022 08:08:14 With:MARCELO JUAREZ, BRITTNI Padron, [facility] Address: [address] [place] [address]. [address] [place] [address] When:1 month [facility] [id number] Hospital Discharge instructions Patient Education 01/12/2022 14:42:18 [...] do that. Take them as directed. Take gusp-vjk-obqflip and prescription medicines only as told by [...] 03/17/2006 Document Revised: 06/03/2018 Document Reviewed: 05/23/2018 [employer] Patient Education 2020 [employer]. 01/12/2022 14:42:18 Hypokalemia Hypokalemia Hypokalemia means that [...] hospital. Follow these instructions at home: Take kzdh-hnn-ubexrel and prescription medicines only as told by [...] cantaloupe, kiwi, oranges, tomatoes, asparagus, and potatoes. ?[place] juice. ?Tomato juice. ?Red meats. ?Yogurt. Keep [...] 06/21/2006 Document Revised: 02/01/2019 Document Reviewed: 02/01/2019 [employer] Patient Education 2020 [employer]. 01/12/2022 14:42:18 Diarrhea, Adult Diarrhea, Adult Diarrhea [...] oral rehydration solution (ORS). This is an mmma-bwb-jbcaekv medicine that helps return your body to [...] drinks, sports drinks, and soda. Eat bland, iojj-wu-dgsmvb foods in small amounts as you are able. These foods include bananas, applesauce, rice, lean meats, toast, and crackers. Avoid alcohol. Avoid spicy or fatty foods. Medicines Take cfts-oig-udvxlha and prescription medicines only as told by your health care provider. If you were prescribed an antibiotic medicine, take it as told by your health care provider. Do notstop using the antibiotic even if you start to feel better. General instructions Wash your hands often using soap and water. If soap and water are not available, use a hand technology assistant. Others in the household should wash their [...] soap and water are not available, usehand technology assistant. Contact a health care provider if your diarrhea gets worse or you have new symptoms. Get help right away if you have signs of dehydration. This information is not intended to replace advice given to you by your health care provider. Make sure you discuss any questions you have with your health care provider. Document Released: 06/11/2003 Document Revised: 11/07/2019 Document Reviewed: 11/25/2018 [employer] Patient Education 2020 [employer]. 01/12/2022 14:42:18 Nausea and Vomiting, Adult Nausea [...] water added (diluted fruit juice). Eat bland, jlph-ge-ezithn foods in small amounts as you are able. These foods include bananas, applesauce, rice, lean meats, toast, and crackers. Avoid fluids that contain a lot of sugar or caffeine, such as energy drinks, sports drinks, and soda. Avoid alcohol. Avoid spicy or fatty foods. General instructions Take ppco-anp-ymdsldq and prescription medicines only as told by your health care provider. Drink enough fluid to keep your urine pale yellow. Wash your hands often using soap and water. If soap and water are not available, use hand technology assistant. Make sure that all people in your [...] eating and drinking to prevent dehydration. Take ussm-elg-nbtxogc and prescription medicines only as told by [...] 06/21/2006 Document Revised: 10/13/2019 Document Reviewed: 11/29/2018 [employer] Patient Education 2019 [employer] 01/12/2022 14:42:18 Abdominal Pain, Adult Abdominal Pain, [...] Follow these instructions at home: Medicines Take rtak-jzg-kohaihe and prescription medicines only as told by [...] Watch your condition for any changes. Take mcgq-zsa-ypasjee and prescription medicines only as told by [...] 03/31/2006 Document Revised: 10/30/2019 Document Reviewed: 10/30/2019 [employer] Patient Education 2020 [employer]. Follow Up Care 01/12/2022 09:37:31 With:Vito ROBERTSON Address: [address] [place] [address]. [address] [place] [address] Business (1) When:01/15/2022 14:27:38 Comments:Return to the emergency room if your pain gets worse, vomiting recurs or any new symptoms. With:TERESA PATEL Address: [address] [place] [phone] Business (1) When:Within 3 Day(s) [facility]07-11-2022 Evaluation + Plan noteExtracted from: Title:ED [...] day(s), # 5 tab(s), Refills(s) 0, Pharmacy: [facility]/pharmacy #[id number], 152, cm, 01/12/22 9:47:00 EDT, Height/Length [...] Date:02/02/2022 08:20:00 AM Scheduled Provider:Amara Palacio CNP Location:[facility] Appointment Type:BAD Follow Up Appointment Date:02/12/2022 09:00:00 AM Scheduled Provider: Location:[facility] Appointment Type:Surgery PAT COVID Testing Appointment Date:02/19/2022 08:35:00 AM Scheduled Provider: Location:[facility] Appointment Type:Surgery FT Future Scheduled Tests Laboratory* Gastrin Level 12/24/21 [facility]06-22-20[facility] Evaluation + Plan note Future Scheduled Tests Laboratory* Gastrin Level 12/24/21 [facility]04-12-2022 Hospital Discharge instructions Patient Education 10/14/2021 [...] soft drinks. Herbal tea. Fats and oils [place] oil. Canola oil. Grapeseed oil. Emery oil. Seasoning and other foods Low-fat salad dressing. Ketchup. Low-fat mayonnaise. All spices except pepper. Low-sodium seasoningmixes. Foods to avoid Meats and other protein foods Fatty meats. Fried meats. Any meat that causes symptoms. Dairy Whole milk. Ice cream. Cream. Chocolate milk. Beverages Alcohol. Coffee. Cola and energy drinks. Black or green tea. Foster. Fats and oils Butter. Lard. Ghee. Seasoning [...] 09/12/2012 Document Revised: 06/03/2018 Document Reviewed: 08/02/2017 [employer] Patient Education 2020 [employer]. 10/14/2021 17:33:16 Peptic Ulcer Peptic Ulcer A [...] quitting, ask your health care provider. Take lslj-wpn-opugxqy and prescription medicines only as told by your health care provider. ?Do not use tjis-ghj-huimsuj medicines in place of prescription medicines unless your health care provider approves. ?Do not take aspirin, ibuprofen, or other NSAIDs unless your health care provider told you to do so. Take inks-agy-rhdozrk and prescription medicines only as told by [...] quitting, ask your health care provider. Take kjtf-hnm-fhklftx and prescription medicines only as told by your health care provider. Do not use rkrp-kqk-rlcazrj medicines in place of prescription medicines unless [...] 06/18/2001 Document Revised: 12/27/2018 Document Reviewed: 12/27/2018 [employer] Patient Education 2020 [employer] 10/14/2021 17:33:09 Gastrointestinal Bleeding Gastrointestinal Bleeding Gastrointestinal [...] observation. Follow these instructions at home: Take szyt-mvh-sfrcagg and prescription medicines only as told by [...] on the cause of the bleeding. Take rzuu-zpb-olzvbqm and prescription medicines only as told by [...] 06/18/2001 Document Revised: 02/01/2019 Document Reviewed: 02/01/2019 [employer] Patient Education 2020 [employer]. 10/14/2021 11:53:50 Hematemesis Hematemesis Hematemesis is when [...] tarry. Follow these instructions at home: Take emdd-fze-rqqspgz and prescription medicines only as told by [...] your local emergency services (911 in the [place]). Do not drive yourself to the hospital. Summary Hematemesis is when you vomit blood. It is a sign of bleeding in the upper GI tract (gastrointestinal tract). Hematemesis is usually caused by bleeding in the esophagus or stomach. Do not take NSAIDs (including aspirin and ibuprofen), drink alcohol, or use tobacco products. Take jmaj-gkc-ujcdpsj and prescription medicines only as told by your health care provider. This information is not intended to replace advice given to you by your health care provider. Make sure you discuss any questions you have with your health care provider. Document Released: 07/29/2005 Document Revised: 07/01/2018 Document Reviewed: 07/01/2018 [employer] Patient Education [employer]. Follow Up Care 10/13/2021 23:28:04 With:MARCELO JUAREZ, BRITTNI Padron, [facility] Address: [address] [place] [address]. [address] [place] [address] When:2 to 4 weeks With:TERESA PATEL CNP Address: [address] [place] [phone] When:2 to 4 days [facility]04-12-2022 Evaluation + Plan noteExtracted from: Title:Discharge [...] Nausea/Vomiting, # 12 tab(s), Refills(s) 0, Pharmacy: [facility]/pharmacy #[id number], 152, cm, 10/13/21 23:36:00 EDT, Height/Length Dosing, 71.7, kg, 10/13/21 23:36:00 EDT, Weight Dosing sucralfate, 1 gm = 1 tab(s), Tab, Oral, QID, Routine, Start date 10/14/21 13:00:00 EDT sucralfate, 1 gm = 1 tab(s), Oral, QID, # 240 tab(s), Refills(s) 0, Pharmacy: [facility]/pharmacy #[id number], 152, cm, 10/13/21 23:36:00 EDT, Height/Length [...] With When Contact Information MARCELO JUAREZ, Vito, GAS, MED Within 2 to 4 weeks [address] [place] [address] Additional Instructions: TERESA PATEL CNP Within 2 to 4 days [address] [facility] [address] [phone] Additional Instructions: Peptic Ulcer Eating Plan Peptic Ulcer Gastrointestinal Bleeding Hematemesis Extracted from: Title:Admission H & P Author:GEOVANI HERNANDEZ Nagi Kirk Date:10/14/21 1. N&V (nausea and vomiting) (R11.2: [...] PTT Stool for Occult Blood POC Troponin [facility]04-10-2022 Evaluation + Plan noteExtracted from: Title:Discharge Note Author:Mile JUAREZ, Naifd Henny ate:10/12/21 Gastritis Antral Ulcer -S/P EGD on [...] patch(es), TransDermal, Daily, 30 EA, Refill(s) 0, [facility]/pharmacy #[id number], 152.4, cm, 10/09/21 9:00:00 EDT, Height/Length Dosing, 78, kg, 10/09/21 9:00:00 EDT, Weight Dosing nicotine, 21 mg, 1 patch(es), Patch-ER, TransDermal, Once, Stop date 10/11/21 16:00:00 EDT, Routine, Start date 10/11/21 16:00:00 EDT, to replace patch that fell off during shower until tomorrow's dose ondansetron, 4 mg = 1 tab(s), Oral, q8hr, PRN Nausea/Vomiting, # 12 tab(s), Refills(s) 0, Pharmacy: [facility]/pharmacy #[id number], 152.4, cm, 10/09/21 9:00:00 EDT, Height/Length Dosing, 78, kg, 10/09/21 9:00:00 EDT, Weight Dosing pantoprazole, 40 mg = 1 tab(s), Oral, BID, # 60 tab(s), Refills(s) 0, Pharmacy: [facility]/pharmacy #[id number], 152.4, cm, 10/09/21 9:00:00 EDT, Height/Length Dosing, 78, kg, 10/09/21 9:00:00 EDT, Weight Dosing sucralfate, 2 gm = 2 tab(s), Oral, QID, # 240 tab(s), Refills(s) 0, Pharmacy: [facility]/pharmacy #[id number], 152.4, cm, 10/09/21 9:00:00 EDT, Height/Length [...] 10:07:00 EDT, Route to Pharmacy Electronically, Pharmacy: [facility]/pharmacy #[id number], 152.4, cm, 10/09/21 9:00:00 EDT, Height/Length [...] Oral, Daily With When Contact Information [address] [place] [address] Business (1) Additional Instructions: Peptic Ulcer TERESA PATEL In 0 days [address] [place] [phone]- [phone] Business (1) Additional Instructions: Peptic Ulcer Endoscopy, Care After Procedure (SHSSTEV) Extracted from: Title:APSO Note Author:Mile JUAREZ, [facility] Date: Gastritis Antral Ulcer -S/P [...] T4fr Reflex Vital Signs Weight Addendum by Moussawi MD, [facility] ad on October 10, 2021 11:27:57 EDT [...] from: Title:Admission H & P Author:Mile JUAREZ, [facility] Date:10/09/21 Gastritis -Spoke with medical social consultant, very much appreciate assistance, likely EGD -Patient [...] Vital Signs Weight Addendum by Mile JUAREZ, m ad on October 09, 2021 12:54:04 EDT [...] Function Panel Lipase Level PT & PTT [facility]04-10-2022 Hospital Discharge instructions Patient Education 10/12/2021 [...] quitting, ask your health care provider. Take dycp-jja-difbjcm and prescription medicines only as told by your health care provider. ?Do not use swds-jre-eolygaa medicines in place of prescription medicines unless your health care provider approves. ?Do not take aspirin, ibuprofen, or other NSAIDs unless your health care provider told you to do so. Take trow-yfj-peoieqk and prescription medicines only as told by [...] quitting, ask your health care provider. Take bdnn-qct-rwkxbzi and prescription medicines only as told by your health care provider. Do not use ajlh-coo-xdfbpxw medicines in place of prescription medicines unless [...] 06/18/2001 Document Revised: 12/27/2018 Document Reviewed: 12/27/2018 [employer] Patient Education 2020 [employer] 10/12/2021 10:12:41 Endoscopy, Care After Procedure (SHSSTEV) Endoscopy Care After Procedure Please read the instructions outlined below and refer to this sheet in the next few weeks. These discharge instructions provide you with general information on [facility] Your doctor may also give you specific [...] 02/02/2005 Document Re-Released: 12/13/2006 [employer] Patient Information 2010 [employer]. Follow Up Care 10/09/2021 08:53:26 With:Vito ROBERTSON Address: [address] [place] [address]. [address] [place] [address] Business (1) When: Unknown Comments:Peptic Ulcer With:TERESA PATEL Address: [address] [facility] [place] [address] [phone] Business (1) When: Unknown [facility]07-24-2003 History of Past illness Narrative* Problem Noted Date Diagnosed Date Resolved Date Migraine 01/25/2003 04/09/2023 documented as of this encounter (statuses as of 04/10/2023) [facility] History of Past illness Narrative* Problem Noted Date Diagnosed Date Resolved Date Migraine 01/25/2003 04/09/2023 documented as of this encounter (statuses as of 04/10/2023) [facility] History of Past illness Narrative* Problem Noted Date Diagnosed Date Resolved Date Migraine 01/25/2003 04/09/2023 documented as of this encounter (statuses as of 04/13/2023) [address]24-2003 History of Past illness Narrative* Problem Noted Date Diagnosed Date Resolved Date Migraine 01/25/2003 04/09/2023 documented as of this encounter (statuses as of 04/15/2023) [address] History of Past illness Narrative* Problem Noted Date Diagnosed Date Resolved Date Migraine 01/25/2003 04/09/2023 documented as of this encounter (statuses as of 04/16/2023) [address] History of Past illness Narrative* Problem Noted Date Diagnosed Date Resolved Date Migraine 01/25/2003 04/09/2023 documented as of this encounter (statuses as of 05/12/2023) [address] History of Past illness Narrative* Problem Noted Date Diagnosed Date Resolved Date Migraine 01/25/2003 04/09/2023 documented as of this encounter (statuses as of 06/02/2023) [address] History of Past illness Narrative* Problem Noted Date Diagnosed Date Resolved Date Migraine 01/25/2003 04/09/2023 documented as of this encounter (statuses as of 06/03/2023) [address] History of Past illness Narrative* Problem Noted Date Diagnosed Date Resolved Date Migraine 01/25/2003 04/09/2023 documented as of this encounter (statuses as of 06/04/2023) [address] History of Past illness Narrative* Problem Noted Date Diagnosed Date Resolved Date Migraine 01/25/2003 04/09/2023 documented as of this encounter (statuses as of 06/04/2023) [address] History of Past illness Narrative* Problem Noted Date Diagnosed Date Resolved Date Migraine 01/25/2003 04/09/2023 documented as of this encounter (statuses as of 06/14/2023) [address] History of Past illness Narrative* Problem Noted Date Diagnosed Date Resolved Date Migraine 01/25/2003 04/09/2023 documented as of this encounter (statuses as of 06/18/2023) [address] History of Past illness Narrative* Problem Noted Date Diagnosed Date Resolved Date Migraine 01/25/2003 04/09/2023 documented as of this encounter (statuses as of 06/19/2023) [address] History of Past illness Narrative* Problem Noted Date Diagnosed Date Resolved Date Migraine 01/25/2003 04/09/2023 documented as of this encounter (statuses as of 06/20/2023) [address] History of Past illness Narrative* Problem Noted Date Diagnosed Date Resolved Date Migraine 01/25/2003 04/09/2023 documented as of this encounter (statuses as of 07/04/2023) [address] History of Past illness Narrative* Problem Noted Date Diagnosed Date Resolved Date Migraine 01/25/2003 04/09/2023 documented as of this encounter (statuses as of 08/06/2023) [address] History of Past illness Narrative* Problem Noted Date Diagnosed Date Resolved Date Migraine 01/25/2003 04/09/2023 documented as of this encounter (statuses as of 08/06/2023) [address] History of Past illness Narrative* Problem Noted Date Diagnosed Date Resolved Date Migraine 01/25/2003 04/09/2023 documented as of this encounter (statuses as of 08/11/2023) [address] History of Past illness Narrative* Problem Noted Date Diagnosed Date Resolved Date Migraine 01/25/2003 04/09/2023 documented as of this encounter (statuses as of 08/13/2023) [address] History of Past illness Narrative* Problem Noted Date Diagnosed Date Resolved Date Migraine 01/25/2003 04/09/2023 documented as of this encounter (statuses as of 08/19/2023) [address] History of Past illness Narrative* Problem Noted Date Diagnosed Date Resolved Date Migraine 01/25/2003 04/09/2023 documented as of this encounter (statuses as of 08/26/2023) [address] History of Past illness Narrative* Problem Noted Date Diagnosed Date Resolved Date Migraine 01/25/2003 04/09/2023 documented as of this encounter (statuses as of 08/26/2023) [address] History of Past illness Narrative* Problem Noted Date Diagnosed Date Resolved Date Migraine 01/25/2003 04/09/2023 documented as of this encounter (statuses as of 08/27/2023) [address] History of Past illness Narrative* Problem Noted Date Diagnosed Date Resolved Date Migraine 01/25/2003 04/09/2023 documented as of this encounter (statuses as of 09/02/2023) [address] History of Past illness Narrative* Problem Noted Date Diagnosed Date Resolved Date Migraine 01/25/2003 04/09/2023 documented as of this encounter (statuses as of 09/06/2023) [address] History of Past illness Narrative* Problem Noted Date Diagnosed Date Resolved Date Migraine 01/25/2003 04/09/2023 documented as of this encounter (statuses as of 09/09/2023) [address] History of Past illness Narrative* Problem Noted Date Diagnosed Date Resolved Date Migraine 01/25/2003 04/09/2023 documented as of this encounter (statuses as of 09/09/2023) [address] History of Past illness Narrative* Problem Noted Date Diagnosed Date Resolved Date Migraine 01/25/2003 04/09/2023 documented as of this encounter (statuses as of 09/10/2023) [address] History of Past illness Narrative* Problem Noted Date Diagnosed Date Resolved Date Migraine 01/25/2003 04/09/2023 documented as of this encounter (statuses as of 09/10/2023) [address] History of Past illness Narrative* Problem Noted Date Diagnosed Date Resolved Date Migraine 01/25/2003 04/09/2023 documented as of this encounter (statuses as of 09/15/2023) [address] History of Past illness Narrative* Problem Noted Date Diagnosed Date Resolved Date Migraine 01/25/2003 04/09/2023 documented as of this encounter (statuses as of 09/27/2023) [address] History of Past illness Narrative* Problem Noted Date Diagnosed Date Resolved Date Migraine 01/25/2003 04/09/2023 documented as of this encounter (statuses as of 10/22/2023) [facility] Appointment Date:12/24/2021 08:30:00 AM Scheduled Provider:Vito ROBERTSON MD Location:[facility] Appointment Type:[facility] Follow Up [facility] Evaluation + Plan note Future Appointments Appointment Date:02/12/2022 09:00:00 AM Scheduled Provider: Location:[facility] Appointment Type:Surgery PAT COVID Testing Appointment Date:02/19/2022 08:35:00 AM Scheduled Provider: Location:[facility] Appointment Type:Surgery FT Future Scheduled Tests Laboratory* Gastrin Level 12/24/21 [facility] Evaluation + Plan note Future Appointments Appointment Date:02/09/2022 08:40:00 AM Scheduled Provider: Location:[facility] Appointment Type:Surgery FT Appointment Date:03/11/2022 08:00:00 AM Scheduled Provider:Vito ROBERTSON MD Location:[facility] Appointment Type:[facility] Follow Up Future Scheduled Tests Laboratory* Gastrin Level 12/24/21 [facility] Evaluation + Plan note Future Appointments Appointment Date:03/11/2022 08:00:00 AM Scheduled Provider:Vito ROBERTSON MD Location:[facility] Appointment Type:BAD Follow Up Future Scheduled Tests Laboratory* Gastrin Level 12[facility]24/[facility] Appointment Date:02/24/2022 03:00:00 PM Scheduled Provider:Vito ROBERTSON MD Location:[facility] Appointment Type:BAD Follow Up Future Scheduled Tests Laboratory* Gastrin Level 12/24/21 [facility] Evaluation + Plan note Future Appointments Appointment Date:08/03/2022 03:00:00 PM Scheduled Provider: [facility] Type:US Abdominal/Pelvis (FT) Future Scheduled Tests Laboratory* Kteyx-3-Dbhwjzwmndc 07/30/22 * Ceruloplasmin 07/30/22 * Antimitochondrial Antibody, [...] * Transferrin 07/30/22 Radiology* US Liver 08/03/22 [facility] Evaluation + Plan note Future Appointments Appointment Date:10/27/2022 10:30:00 AM Scheduled Provider: Location[facility] Appointment Type:US Abdominal/Pelvis () Appointment Date:11/19/2022 09:20:00 AM Scheduled Provider:Amara Palacio CNP Location:[facility] Appointment Type:[facility] Follow Up Future Scheduled Tests Laboratory* Fecal WBC Lactoferrin 10/22/22 * Giardia lamblia, Direct Detection EIA 10/22/22 * O & P Exam, Routine 10/22/22 * Clostridium Difficile PCR 10/22/22 * Enteric Panel by PCR 10/22/22 Radiology* US Gallbladder 10/27/22 [facility] Evaluation + Plan note Future Appointments Appointment Date:10/27/2022 10:30:00 AM Scheduled Provider: Location[facility] Appointment Type:US Abdominal/Pelvis () Appointment Date:11/19/2022 09:20:00 AM Scheduled Provider:Amara Palacio CNP Location:[facility] Appointment Type:[facility] Follow Up Diagnostic Tests Pending * Garhw-5-Rwiylyymsyr 10/22/22 * Antimitochondrial Antibody, Quantitative 10/22/22 * [...] by PCR 10/22/22 Radiology* US Gallbladder [facility]27/22 [facility] Appointment Date:11/19/2022 09:20:00 AM Scheduled Provider:Amara Palacio CNP Location:[facility] Appointment Type:BAD Follow Up Future Scheduled Tests Laboratory* Fecal WBC Lactoferrin 10/22/22 * Giardia lamblia, Direct Detection EIA 10/22/22 * O & P Exam, Routine 10/22/22 * Clostridium Difficile PCR 10/22/22 * Enteric Panel by PCR 10/22/22 [facility] App[facility]ments Appointment Date:11/19/2022 09:20:00 AM Scheduled Provider:Amara Palacio CNP Location:[facility] Appointment Type:[facility] Follow Up Diagnostic Tests Pending * PAP [id number] 11/05/22 Future Scheduled Tests Laboratory* Fecal WBC Lactoferrin 10/22/22 * Giardia lamblia, Direct Detection EIA 10/22/22 * O & P Exam, Routine 10/22/22 * Clostridium Difficile PCR 10/22/22 * Enteric Panel by PCR 10/22/22 [facility] note* Diagnosis Diarrhea of presumed infectious origin- Primary [facility] [place] [facility] Diagnosis History of TMJ disorder- Primary Personal history of other musculoskeletal disorders documented [facility] [place] [facility]* Diagnosis Chiari malformation type I (HCC)- Primary Compression of brain History of TMJ syndrome Personal history of other musculoskeletal disorders documented [facility] [place] [facility]* Diagnosis Chiari I malformation (HCC)- Primary Compression of brain Chiari malformation type I (HCC) Compression of brain [facility] [place] [facility]* Diagnosis Abnormal EKG- [...] bundle branch block [facility] Diagnosis Abnormal EKG- Primary Nonspecific [...] for seeking consultation [facility]* Diagnosis Encounter for screening involving social determinants of health (SDoH)- Primary [facility] Diagnosis Cervicalgia- Primary 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 Displacement of cervical intervertebral disc without myelopathy Radiculopathy, cervical region Brachial neuritis or radiculitis nos [facility] Diagnosis Cervicalgia 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 Displacement of cervical intervertebral disc without myelopathy Radiculopathy, cervical region Brachial neuritis or radiculitis nos documented [facility] [place] [facility]* Diagnosis Spinal stenosis of cervical region- Primary Spinal stenosis in cervical region Cervicalgia Displacement of cervical intervertebral disc without myelopathy Brachial neuritis Brachial neuritis or radiculitis nos [facility]* Diagnosis Spinal stenosis of cervical region- Primary Spinal stenosis in cervical region Cervical spinal stenosis Spinal stenosis in cervical region Pre-op testing Preoperative examination, unspecified [facility] Diagnosis 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)- Primary [facility]* Diagnosis Palpitations- Primary Bipolar 1 disorder (HCC) Bipolar I disorder, most recent episode (or current) unspecified S/P cervical spinal fusion Arthrodesis status [facility] Diagnosis Chronic TMJ pain- Primary documented in this encounter [facility] note* Diagnosis Postoperative pain Other acute postoperative pain documented in this encounter [facility] note* Diagnosis 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)- Primary documented in this encounter [facility] note* Diagnosis Cervical spinal stenosis Spinal stenosis in cervical region Pre-op testing Preoperative examination, unspecified documented in this encounter [facility] note* Diagnosis 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)- Primary documented in this encounter [facility] noteNo assessment information availableAccess [facility] Work Phone: Evaluation note* Diagnosis Chiari I malformation (HCC) Compression of brain Preoperative clearance- Primary Preoperative examination, unspecified Migraine without status migrainosus, not intractable, unspecified migraine type Palpitations History of peptic ulcer Personal history of peptic ulcer disease MDD (major depressive disorder), recurrent episode, mild (HCC) Major depressive disorder, recurrent episode, mild DIMITRI (generalized anxiety disorder) Generalized anxiety disorder History of nephrolithiasis Personal history of urinary calculi Former smoker Personal history of tobacco use, presenting hazards to health documented in this encounter [facility] note* Diagnosis Postop check Follow-up examination, following unspecified surgery documented in this encounter [facility] note* Diagnosis Preoperative clearance- Primary Preoperative examination, unspecified Migraine without status migrainosus, not intractable, unspecified migraine type Palpitations History of peptic ulcer Personal history of peptic ulcer disease MDD (major depressive disorder), recurrent episode, mild (HCC) Major depressive disorder, recurrent episode, mild DIMITRI (generalized anxiety disorder) Generalized anxiety disorder History of nephrolithiasis Personal history of urinary calculi Former smoker Personal history of tobacco use, presenting hazards to health 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)- Primary documented in this encounter [facility] note* Diagnosis Preoperative clearance- Primary Preoperative examination, unspecified Migraine without status migrainosus, not intractable, unspecified migraine type Palpitations History of peptic ulcer Personal history of peptic ulcer disease MDD (major depressive disorder), recurrent episode, mild (HCC) Major depressive disorder, recurrent episode, mild DIMITRI (generalized anxiety disorder) Generalized anxiety disorder History of nephrolithiasis Personal history of urinary calculi Former smoker Personal history of tobacco use, presenting hazards to health 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) documented in this encounter [facility] note* Diagnosis Preoperative clearance- Primary Preoperative examination, unspecified Migraine without status migrainosus, not intractable, unspecified migraine type Palpitations History of peptic ulcer Personal history of peptic ulcer disease MDD (major depressive disorder), recurrent episode, mild (HCC) Major depressive disorder, recurrent episode, mild DIMITRI (generalized anxiety disorder) Generalized anxiety disorder History of nephrolithiasis Personal history of urinary calculi Former smoker Personal history of tobacco use, presenting hazards to health Routine general medical examination at a health care facility- Primary Neck pain Cervicalgia documented in this encounter [facility] note* Diagnosis Preoperative clearance- Primary Preoperative examination, unspecified Migraine without status migrainosus, not intractable, unspecified migraine type Palpitations History of peptic ulcer Personal history of peptic ulcer disease MDD (major depressive disorder), recurrent episode, mild Major depressive disorder, recurrent episode, mild DIMITRI (generalized anxiety disorder) Generalized anxiety disorder History of nephrolithiasis Personal history of urinary calculi Former smoker Personal history of tobacco use, presenting hazards to health Routine general medical examination at a health care facility- Primary Upper back pain Attention deficit disorder, unspecified type Vitamin D deficiency Unspecified vitamin D deficiency Dyslipidemia Other and unspecified hyperlipidemia Weight gain Abnormal weight gain Screening mammogram, encounter for Special screening examination for viral disease Special screening examination for unspecified viral disease documented in this encounter [facility] note* Diagnosis Onset Date Resolution Status Admit Date Irritant contact dermatitis noneacti ve November 07, 2024 9:32am [facility] Work Phone: Evaluation note* Diagnosis Preoperative clearance- Primary Preoperative examination, unspecified Migraine without status migrainosus, not intractable, unspecified migraine type Palpitations History of peptic ulcer Personal history of peptic ulcer disease MDD (major depressive disorder), recurrent episode, mild Major depressive disorder, recurrent episode, mild DIMITRI (generalized anxiety disorder) Generalized anxiety disorder History of nephrolithiasis Personal history of urinary calculi Former smoker Personal history of tobacco use, presenting hazards to health SOB (shortness of breath)- Primary Shortness of breath Wheezing History of tobacco use Personal history of tobacco use, presenting hazards to health Mixed hyperlipidemia documented in this encounter [facility] note* Diagnosis Preoperative clearance- Primary Preoperative examination, unspecified Migraine without status migrainosus, not intractable, unspecified migraine type Palpitations History of peptic ulcer Personal history of peptic ulcer disease MDD (major depressive disorder), recurrent episode, mild Major depressive disorder, recurrent episode, mild DIMITRI (generalized anxiety disorder) Generalized anxiety disorder History of nephrolithiasis Personal history of urinary calculi Former smoker Personal history of tobacco use, presenting hazards to health Screening mammogram, encounter for documented in this encounter [facility] note* Diagnosis Preoperative clearance- Primary Preoperative examination, unspecified Migraine without status migrainosus, not intractable, unspecified migraine type Palpitations History of peptic ulcer Personal history of peptic ulcer disease MDD (major depressive disorder), recurrent episode, mild Major depressive disorder, recurrent episode, mild DIMITRI (generalized anxiety disorder) Generalized anxiety disorder History of nephrolithiasis Personal history of urinary calculi Former smoker Personal history of tobacco use, presenting hazards to health Encounter for screening for cardiovascular disorders- Primary Screening for other and unspecified cardiovascular conditions Mixed hyperlipidemia Palpitations documented in this encounter [facility] note* Diagnosis Preoperative clearance- Primary Preoperative examination, unspecified Migraine without status migrainosus, not intractable, unspecified migraine type Palpitations History of peptic ulcer Personal history of peptic ulcer disease MDD (major depressive disorder), recurrent episode, mild Major depressive disorder, recurrent episode, mild DIMITRI (generalized anxiety disorder) Generalized anxiety disorder History of nephrolithiasis Personal history of urinary calculi Former smoker Personal history of tobacco use, presenting hazards to health Nausea and vomiting, unspecified vomiting type- Primary Fatty liver Other chronic nonalcoholic liver disease Forgetfulness Other general symptoms documented in this encounter [facility] note* Diagnosis Preoperative clearance- Primary Preoperative examination, unspecified Migraine without status migrainosus, not intractable, unspecified migraine type Palpitations History of peptic ulcer Personal history of peptic ulcer disease MDD (major depressive disorder), recurrent episode, mild Major depressive disorder, recurrent episode, mild DIMITRI (generalized anxiety disorder) Generalized anxiety disorder History of nephrolithiasis Personal history of urinary calculi Former smoker Personal history of tobacco use, presenting hazards to health SOB (shortness of breath) Shortness of breath Wheezing [facility] this [facility]* Diagnosis Preoperative clearance- Primary Preoperative examination, unspecified Migraine without status migrainosus, not intractable, unspecified migraine type Palpitations History of peptic ulcer Personal history of peptic ulcer disease MDD (major depressive disorder), recurrent episode, mild Major depressive disorder, recurrent episode, mild DIMITRI (generalized anxiety disorder) Generalized anxiety disorder History of nephrolithiasis Personal history of urinary calculi Former smoker Personal history of tobacco use, presenting hazards to health Attention deficit disorder, unspecified type [facility] Preoperative clearance- Primary Preoperative examination, unspecified Migraine without status migrainosus, not intractable, unspecified migraine type Palpitations History of peptic ulcer Personal history of peptic ulcer disease MDD (major depressive disorder), recurrent episode, mild Major depressive disorder, recurrent episode, mild DIMITRI (generalized anxiety disorder) Generalized anxiety disorder History of nephrolithiasis Personal history of urinary calculi Former smoker Personal history of tobacco use, presenting hazards to health Upper back pain- Primary 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) Neck pain Cervicalgia documented in this encounter [facility] general Narrative - Reported* Type Description Date Medical History migraines Medical History back pain Medical History Esophageal reflux Surgical History Acl left knee 2002 Surgical History left knee ligament reconstructi on 2003 Hospitalization History 01/30/05 Hospitalization History stomach ulcer 2021 [employer] Other Hospital course Narrative No data available for this [facility] No data available for this section [facility] Progress note No data available for this section [facility] Reason for referral (narrative)* Diagnostic Procedure Only (Routine) - Closed Specialty Diagnoses / Procedures Referred By Renee ambrosio Referred To Contact XR IMAGING Diagnoses Cervicalgia 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 Radiculopathy, cervical region Procedures XR CERV OTHER 4V AP/LAT/FLX/EXT RADEX SPINE CERVICAL 4 OR 5 VIEWS Rukhsana Webb, HARISH [address] [place] [address] [place] [address] Referral ID Status Reason Start Date Expiration Date V isits Requested Visits Authorized [id number] Closed Auto-Generate d Referral 06/18/2023 07/17/2024 1 1 [facility] for referral (narrative)* Diagnostic Procedure Only (Routine) - New Request Specialty Diagnoses / Procedures Referred By Renee ambrosio Referred To Contact XR IMAGING Diagnoses 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) Procedures XR CERV GENERAL 2V AP/LAT RADEX SPINE CERVICAL 2 OR 3 VIEWS Lloyd Mcconnell APRN.PARENT PARTNER [address] Mail Code [address] [place] [id number] [facility] [place] [address] Referral ID Status Reason Start Date Expiration Date Visits Requested Visits Authorized [id number] New Request Auto-Generat ed Referral 01/17/2024 02/15/2025 1 1 [facility] for visit Narrative* Diagnostic Procedure Only (Routine) - Closed Specialty Diagnoses / Procedures Referred By Contac t Referred To Contact XR IMAGING Diagnoses Cervicalgia 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 Radiculopathy, cervical region Procedures XR CERV OTHER 4V AP/LAT/FLX/EXT RADEX SPINE CERVICAL 4 OR 5 VIEWS Rukhsana Webb APRN.PARENT PARTNER [id number] [place] [id number] [facility] [place] [address] Referral ID Status Reason Start Date Expiration Date V isits Requested Visits Authorized [id number] Closed Auto-Generate d Referral 06/18/2023 07/17/2024 1 1 [facility] for visit Narrative* Diagnostic Procedure Only (Routine) - Closed Specialty Diagnoses / Procedures Referred By Contac t Referred To Contact XR IMAGING Diagnoses Cervical spinal stenosis Pre-op testing Procedures XR CERV GENERAL 2V AP/LAT RADEX SPINE CERVICAL 2 OR 3 VIEWS Joo Cruz MD [address] [place] [address] Xr Imaging [facility] Referral ID Status Reason Start Date Expiration Date V isits Requested Visits Authorized [id number] Closed Auto-Generate d Referral 07/07/2023 08/04/2024 1 1 [facility] for visit Narrative* Diagnostic Procedure Only (Routine) - Closed Specialty Diagnoses / Procedures Referred By Contac t Referred To Contact XR IMAGING Diagnoses 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) Procedures XR CERV GENERAL 2V AP/LAT RADEX SPINE CERVICAL 2 OR 3 VIEWS Lloyd Mcconnell APRN.PARENT PARTNER [address] Mail Code [address] [place] [address] [facility] [address] Referral ID Status Reason Start Date Expiration Date V isits Requested Visits Authorized [id number] Closed Auto-Generate d Referral 01/17/2024 07/04/2025 1 1 [facility] Summary Purpose Family History Relationship Condition Age at Onset Recorded Date/T chen aunt Family history of other condition Unknown Unknown grandparent Unknown Family history of other condition Unknown grandparent Family history of other condition Unknown Advance Directives Latest Code Status on File Code Status Date Activated Date Inactivated Comments Full Code 05/03/2016 3:00 PM 05/05/2016 1:34 PM Code Status History Code Status Date Activated Date Inactivated Comments Full Code 05/03/2016 4:03 AM 05/03/2016 3:00 PM Full Code 05/03/2016 3:46 AM 05/03/2016 4:03 AM Date Activated Date Inactivated Comments 05/03/2016 3:00 PM 05/05/2016 1:34 PM Date Activated Date Inactivated Comments 05/03/2016 4:03 AM 05/03/2016 3:00 PM Date Activated Date Inactivated Comments 05/03/2016 3:46 AM 05/03/2016 4:03 AM Advance Directive Response Recorded Date/ Time Advance Directives March 7:51am Reason for Referral Specialty Diagnoses / Procedures Referred By Contac t Referred To Contact [facility] Diagnoses 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) Procedures CONSULT TO PHYSICAL THERAPY PHYSICAL THERAPY EVALUATION HIGH COMPLEX 45 MINS Joo Cruz MD [address] [place] [address] [facility] [place] [address] [place] [address] Referral ID Status Reason Start Date Expiration Date Visits Requested Visits Authorized [id number] Pending Review Auto-Generat ed Referral 11/01/2023 10/31/2024 1 1 Specialty Diagnoses / Procedures Referred By Contac t Referred To Contact Dentistry Diagnoses Chronic TMJ pain Procedures CONSULT TO DENTISTRY OFFICE/OUTPATIENT [facility] MDM 60 MINUTES Reuben Agrawal PA-C [address] [place] [address] Referral ID Status Reason Start Date Expiration Date Visits Requested Visits Authorized [id number] Pending Review PCP Requested Referral 09/14/2023 09/13/2024 1 1 Specialty Diagnoses / Procedures Referred By Contac t Referred To Contact CT IMAGING Diagnoses Spinal stenosis of cervical region Procedures CT CERVICAL SPINE WO IVCON CT CERVICAL SPINE W/O CONTRAST MATERIAL Joo Cruz MD [address] [place], [place] [id number] Ct Imaging [place] [address] Referral ID Status Reason Start Date Expiration Date Visits Requested Visits Authorized [id number] Additional Clinical Info Needed Auto-Generat ed Referral 3 07/31/2024 1 1 Specialty Diagnoses / Procedures Referred By Contac t Referred To Contact Diagnoses Cervicalgia 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 Radiculopathy, cervical region Procedures CONSULT TO SPINE SURGERY OFFICE/OUTPATIENT [facility] 60-74 MINUTES Rukhsana Webb, HIMANSHU.PARENT PARTNER [address] [place] [address] Referral ID Status Reason Start Date Expiration Date Visits Requested Visits Authorized [id number] Authorized PCP Requested Referral 3 06/17/2024 1 1 Specialty Diagnoses / Procedures Referred By Contac t Referred To Contact XR IMAGING Diagnoses Cervicalgia 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 Radiculopathy, cervical region Procedures XR CERV OTHER 4V AP/LAT/FLX/EXT RADEX SPINE CERVICAL 4 OR 5 VIEWS Rukhsana Webb, PULVERIZER FEEDER.PARENT PARTNER [address] [place] [address] Xr Imaging [facility] Referral ID Status Reason Start Date Expiration Date V isits Requested Visits Authorized [id number] Closed Auto-Generate d Referral 06/18/2023 07/17/2024 1 1 Specialty Diagnoses / Procedures Referred By Contac t Referred To Contact [facility] Diagnoses Neck pain Jaw pain Upper back pain Procedures CONSULT TO SECOND RIGGER OCCUPATIONAL THERAPY EVAL HIGH COMPLEX 60 MINS Reuben Agrawal PA-C [address] [place] [address] [facility] [place] [address] [place] [address] Referral ID Status Reason Start Date Expiration Date Visits Requested Visits Authorized [id number] Pending Review Auto-Generat ed Referral 04/09/2023 04/08/2024 1 1 Specialty Diagnoses / Procedures Referred By Contac t Referred To Contact [facility] Diagnoses Neck pain Jaw pain Upper back pain Procedures CONSULT TO PHYSICAL THERAPY PHYSICAL THERAPY EVALUATION HIGH COMPLEX 45 MINS Reuben Agrawal PA-C [address] [place] [address] [facility] [address] [address] Referral ID Status Reason Start Date Expiration Date Visits Requested Visits Authorized [id number] Pending Review Auto-Generat ed Referral 04/09/2023 04/08/2024 1 1 Specialty Diagnoses / Procedures Referred By Contac t Referred To Contact Cardiology Diagnoses Abnormal EKG Procedures CONSULT TO CARDIOLOGY OFFICE/OUTPATIENT [facility] MDM 60-74 MINUTES Reuben Agrawal PA-C [address] [place] [address] Referral ID Status Reason Start Date Expiration Date Visits Requested Visits Authorized [id number] Authorized PCP Requested Referral 04/09/2023 04/08/2024 1 1 Specialty Diagnoses / Procedures Referred By Contac t Referred To Contact [facility] Diagnoses Abnormal EKG Procedures ECHO ECHO TTHRC R-T 2D W/WOM-MODE COMPL SPEC&COLR D Reuben Agrawal PA-C [address] [place] [address] [facility] [place] [address] [place] [address] Referral ID Status Reason Start Date Expiration Date Visits Requested Visits Authorized [id number] Pending Review Auto-Generat ed Referral 04/09/2023 04/08/2024 [...] OFFICE/OUTPATIENT NEW [facility] MDM 60-74 MINUTES Maurice Edward MD [address] [facility] [address] [place] [address] Referral ID Status Reason Start Date Expiration Date Visits Requested Visits Authorized [id number] Authorized PCP Requested Referral 04/07/2023 04/06/2024 1 [...] PRIMARY CARE NEW PATIENT OFFICE/OUTPATIENT [facility] 60-74 MINUTES Maurice Edward MD [address] [facility] [address] [place] [address] [facility] [address] [place] [address] Referral ID Status Reason Start Date Expiration Date Visits Requested Visits Authorized [id number] Authorized PCP Requested Referral 04/07/2023 04/06/2024 1 1 Specialty Diagnoses / Procedures Referred By Contac t Referred To Contact MR IMAGING Diagnoses Chiari I malformation (HCC) Procedures MRI CERVICAL SPINE WO IVCON MRI SPINAL CANAL CERVICAL W/O CONTRAST Zoraida Jeong PA-C [address] [place] [address] Mr Imaging [place] [address] Referral ID Status Reason Start Date Expiration Date Visits Requested Visits Authorized [id number] Pending Review Auto-Generat ed Referral 03/18/2023 04/16/2024 1 1 Specialty Diagnoses / Procedures Referred By Contac t Referred To Contact Neurosurgery Diagnoses Chiari malformation type I (HCC) Procedures CONSULT TO NEUROSURGERY OFFICE/OUTPATIENT [facility] MDM 60-74 MINUTES Tristan Guallpa MD [address] [place] [address] Referral ID Status Reason Start Date Expiration Date Visits Requested Visits Authorized [id number] Authorized PCP Requested Referral 03/05/2023 03/04/2024 1 1 Chief Complaint and Reason for Visit Chief Complaint Admit Date Rash all over from tanning lotion November 9:32am Reason for Visit Admit Date Irritant contact dermatitis November 07 9:32am Additional Source Comments INFORMATION SOURCE (unrecogn ized section and content) DATE CREATED AUTHOR 08/12/2021 [facility] DATE CREATED AUTHOR AUTHOR'S ORGANIZ ATION 05/22/2022 [facility] DATE CREATED AUTHOR AUTHOR'S ORGANIZ ATION 02/16/2023 [facility] DATE CREATED AUTHOR AUTHOR'S ORGANIZ ATION 03/05/2023 [facility] DATE CREATED AUTHOR AUTHOR'S ORGANIZ ATION 07/17/2023 [facility] DATE CREATED AUTHOR AUTHOR'S ORGANIZ ATION 11/16/2023 [facility] DATE CREATED AUTHOR AUTHOR'S ORGANIZ ATION 02/27/2024 [facility] DATE CREATED AUTHOR AUTHOR'S ORGANIZ ATION 03/11/2024 [facility] EPIC DATE CREATED AUTHOR AUTHOR'S ORGANIZ ATION 08/08/2024 [facility] DATE CREATED AUTHOR AUTHOR'S ORGANIZ ATION 12/19/2024 [facility] DATE CREATED AUTHOR AUTHOR'S ORGANIZ ATION 01/05/2025 [facility] DATE CREATED AUTHOR AUTHOR'S ORGANIZ ATION 01/12/2025 [facility] DATE CREATED AUTHOR AUTHOR'S ORGANIZ ATION 01/15/2025 [facility] DATE CREATED AUTHOR AUTHOR'S ORGANIZ ATION 01/17/2025 [facility] DATE CREATED AUTHOR AUTHOR'S ORGANIZ ATION 01/30/2025 [facility] DATE CREATED AUTHOR AUTHOR'S ORGANIZ ATION 03/03/2025 [facility] Care Team (unrecognized sect ion and content) Curator Relationship Specialty Start Date End Date Teresa Patel, PARENT PARTNER [address] [place] [address] PCP - General 12/18/18 Amara Pal[address] CNP [address] [facility] [place] [address] Referring Family Practice 02/20/22 Curator Relationship Specialty Start Date End Date Miriam Cavazos [address] [place] [address] PCP - General 05/02/16 Curator Relationship Specialty Start Date End Date Teresa Patel CNP [address] [place] [address] PCP - General 12/18/18 Amara Palacio CNP [address] [place] [address] Referring Family Medicine 02/20/22 Curator Relationship Specialty Start Date End Date Teresa Patel CNP [address] [place] [address] PCP - General 12/18/18 Amara Palacio CNP [address] [place] [address] Referring Family Medicine 02/20/22 Curator Relationship Specialty Start Date End Date Teresa Patel CNP [address] [place] [address] PCP - General 12/18/18 Amara Palacio CNP [address] [place] [address] Referring Family Medicine 02/20/22 Curator Relationship Specialty Start Date End Date Teresa Patel CNP [address] [place] [place] [address] PCP - General 12/18/18 Amara Palacio CNP [address] [place] [address] Referring Family Medicine 02/20/22 Curator Relationship Specialty Start Date End Date Teresa Patel CNP [address] [place] [address] PCP - General 12/18/18 Amara Palacio CNP [address] [place] [address] Referring Family Medicine 02/20/22 Curator Relationship Specialty Start Date End Date Teresa Patel CNP [address] [place] [address] PCP - General 12/18/18 Amara Palacio CNP [address] [place] [address] Referring Family Medicine 02/20/22 Curator Relationship Specialty Start Date End Date Teresa Patel CNP [address] [place] [address] PCP - General 12/18/18 Amara Palacio CNP [address] [place] [address] Referring Family Medicine 02/20/22 Curator Relationship Specialty Start Date End Date Teresa Patel CNP [address] [place] [address] PCP - General 12/18/18 Amara Palacio CNP [address] [place] [address] Referring Family Medicine 02/20/22 Curator Relationship Specialty Start Date End Date Reuben Agrawal PA-C [address] [place] [address] PCP - General Internal Medicine 04/09/23 Amara Palacio CNP [address] [place] [address] Referring Family Medicine 02/20/22 Curator Relationship Specialty Start Date End Date Reuben Agrawal PA-C [address] [place] [address] PCP - General Internal Medicine 04/09/23 Amara Palacio CNP [address] [place] [address] Referring Family Medicine 02/20/22 Curator Relationship Specialty Start Date End Date Reuben Agrawal PA-C [address] [place] [address] PCP - General Internal Medicine 04/09/23 Amara Palacio CNP [address] [place] [address] Referring Family Medicine 02/20/22 Curator Relationship Specialty Start Date End Date Reuben Agrawal PA-C [address] [place] [address] PCP - General Internal Medicine 04/09/23 Amara Palacio, LEILA [address] [place] [address] Referring Family Medicine 02/20/22 [facility] Curator Relationship Specialty Start Date End Date Teresa Patel, PARENT PARTNER [address] [place] [address] PCP - General 12/18/18 04/08/23 Reuben Agrawal PA-C [address] [place] [address] PCP - General Internal Medicine 04/09/23 Amara Palacio CNP [address] [place] [address] Referring Family Medicine 02/20/[address] [facility] 04/15/23 04/20/23 Curator Relationship Specialty Start Date End Date Reuben Agrawal PA-C [address] [place] [address] PCP - General Internal Medicine 04/09/23 Amara Palacio, LEILA [address] [place] [address] Referring Family Medicine 02/20/22 Curator Relationship Specialty Start Date End Date Reuben Agrawal PA-C [address] [place] [address] PCP - General Internal Medicine 04/09/23 Amara Palacio CNP [address] [place] [address] Referring Family Medicine 02/20/22 Curator Relationship Specialty Start Date End Date Reuben Agrawal PA-C [address] [place] [address] PCP - General Internal Medicine 04/09/23 Amara Palacio CNP [facility] [place] [address] Referring Family Medicine 02/20/22 Curator Relationship Specialty Start Date End Date Reuben Agrawal PA-C [address] [place] [address] PCP - General Internal Medicine 04/09/23 Amara Palacio CNP [address] [place] [address] Referring Family Medicine 02/20/22 Curator Relationship Specialty Start Date End Date Reuben Agrawal PA-C [address] [place] [address] PCP - General Internal Medicine 04/09/23 Amara Palacio CNP [address] [place] [address] Referring Family Medicine 02/20/22 Curator Relationship Specialty Start Date End Date Reuben Agrawal PA-C [address] [place] [address] PCP - General Internal Medicine 04/09/23 Amara Palacio, LEILA [address] [place] [address] Referring Family Medicine 02/20/22 Curator Relationship Specialty Start Date End Date Reuben Agrawal PA-C [address] [place] [address] PCP - General Internal Medicine 04/09/23 Amara Palacio, LEILA [address] [place] [address] Referring Family Medicine 02/20/22 Curator Relationship Specialty Start Date End Date Teresa Patel, PARENT PARTNER [address] [place] [address] PCP - General 12/18/18 04/08/23 Reuben Agrawal PA-C [address] [place] [address] 73303 PCP - General Internal Medicine 04/09/23 Amara Palacio, PARENT PARTNER [address] [facility] [place] [address] Referring Family Medicine 02/20/22 Nitza Valdovinos LSW Actuary Manager Curing Machine Operator 04/15/23 04/20/23 Curator Relationship Specialty Start Date End Date Reuben Agrawal PA-C [address] [place] [address] PCP - General Internal Medicine 04/09/23 Amara Palacio CNP [address] [place] [address] Referring Family Medicine 02/20/22 Curator Relationship Specialty Start Date End Date Reuben Agrawal PA-C [address] [place] [address] 90078 PCP - General Internal Medicine 04/09/23 Amara Palacio CNP [address] [place] [address] Referring Family Medicine 02/20/22 Curator Relationship Specialty Start Date End Date Reuben Agrawal PA-C [address] [place] [address] 50852 PCP - General Internal Medicine 04/09/23 Amara Palacio CNP [address] [place] [address] Referring Family Medicine 02/20/22 Curator Relationship Specialty Start Date End Date Reuben Agrawal PA-C [address] [place] [address] 11363 PCP - General Internal Medicine 04/09/23 Amara Palacio CNP [address] [place] [address] Referring Family Medicine 02/20/22 Curator Relationship Specialty Start Date End Date Reuben Agrawal PA-C [address] [place] [address] PCP - General Internal Medicine 04/09/23 Amara Palacio CNP [address] [place] [address] Referring Family Medicine 02/20/22 Curator Relationship Specialty Start Date End Date Reuben Agrawal PA-C [address] [place] [address] PCP - General Internal Medicine 04/09/23 Amara Palacio CNP [address] [place] [address] Referring Family Medicine 02/20/22 Curator Relationship Specialty Start Date End Date Reuben Agrawal PA-C [address] [place] [address] PCP - General Internal Medicine 04/09/23 Amara Palacio PARENT PARTNER [address] [place] [address] Referring Family Medicine 02/20/22 Curator Relationship Specialty Start Date End Date Reuben Agrawal PA-C [address] [place] [address] PCP - General Internal Medicine 04/09/23 Amara Paalcio, LEILA [address] [place] [address] Referring Family Medicine 02/20/22 Curator Relationship Specialty Start Date End Date Reuben Agrawal PA-C [address] [place] [address] 50424 PCP - General Internal Medicine 04/09/23 Amara Palacio CNP [address] [place] [address] Referring Family Medicine 02/20/22 Curator Relationship Specialty Start Date End Date Reuben Agrawal PA-C [address] [place] [address] 52361 PCP - General Internal Medicine 04/09/23 Amara Palacio CNP [address] [place] [address] Referring Family Medicine 02/20/22 Curator Relationship Specialty Start Date End Date Reuben Agrawal PA-C [address] [place] [address] 39050 PCP - General Internal Medicine 04/09/23 Amara Palacio CNP [address] [place] [address] Referring Family Medicine 02/20/22 Curator Relationship Specialty Start Date End Date Reuben Agrawal PA-C [address] [place] [address] 53205 PCP - General Internal Medicine 04/09/23 Amara Palacio CNP [address] [place] [address] Referring Family Medicine 02/20/22 Curator Relationship Specialty Start Date End Date Reuben Agrawal PA-C [address] [place] [address] 95826 PCP - General Internal Medicine 04/09/23 Amara Palacio CNP [address] [place] [address] Referring Family Medicine 02/20/22 Curator Relationship Specialty Start Date End Date Reuben Agrawal PA-C [address] [place] [address] 33104 PCP - General Internal Medicine 04/09/23 Amara Palacio, LEILA [address] [place] [address] Referring Family Medicine 02/20/22 Curator Relationship Specialty Start Date End Date Reuben Agrawal PA-C [address] [place] [address] 25380 PCP - General Internal Medicine 04/09/23 Amara Palacio, LEILA [address] [place] [address] Referring Family Medicine 02/20/22 Team Status: Inactive Member Role Status Dates Solomon Sorensen DO Attending Provider Active Start : February 10, 2024 End: February 10, 2024 Team Status: Inactive Member Role Status Dates Solomon Sorensen DO Attending Provider Active Start : February 25, 2024 End: February 25, 2024 Curator Relationship Specialty Start Date End Date Reuben Agrawal PA-C [address] [place] [address] PCP - General Internal Medicine 04/09/23 Amara Palacio CNP [address] [place] [address] Referring Family Medicine 02/20/22 Nitza Valdovinos LSW Actuary Manager Curing Machine Operator 04/15/23 04/20/23 Curator Relationship Specialty Start Date End Date Reuben Agrawal PA-C [address] [place] [address] PCP - General Internal Medicine 04/09/23 Amara Palacio PARENT PARTNER [address] [place] [address] Referring Family Medicine 02/20/22 Curator Relationship Specialty Start Date End Date Miriam Cavazos [address] [place] [address] PCP - General 05/02/16 Curator Relationship Specialty Start Date End Date Reuben Agrawal MD [address] [place] [address] 20644 PCP - General Physician Supervisor Shuttle Veneering 12/14/23 Teresa Patel MD [address] [place] [address] 12291 Referring Physician Family Medicine 03/02/23 Curator Relationship Specialty Start Date End Date Reuben Agrawal MD [address] [place] [address] PCP - General Physician Supervisor Shuttle Veneering 12/14/23 Teresa Patel MD [address] [place] [address] 43764 Referring Physician Family Medicine 03/02/23 Curator Relationship Specialty Start Date End Date Reuben Agrawal MD [address] [place] [address] PCP - General Physician Supervisor Shuttle Veneering 12/14/23 Teresa Patel MD [address] [place] [address] 12561 Referring Physician Family Medicine 03/02/23 Curator Relationship Specialty Start Date End Date Reuben Agrawal PA-C [address] [place] [address] 06633 PCP - General Internal Medicine 04/09/23 Amara Palacio CNP [address] [place], [place] [id number] Referring Family Medicine 02/20/22 Mar Ponce PA-C [address] [place] [address] 25959 Instructor Ballroom Dancing Internal Medicine 06/12/24 Curator Relationship Specialty Start Date End Date Reuben Agrawal PA-C [address] [place] [address] 31744 PCP - General Internal Medicine 04/09/23 Amara Palacio CNP [address] [place] [address] Referring Family Medicine 02/20/22 Mar Ponce PA-C [address] [place] [address] 74653 Instructor Ballroom Dancing Internal Medicine 06/12/24 Curator Relationship Specialty Start Date End Date Reuben Agrawal PA-C [address] [place] [address] 29603 PCP - General Internal Medicine 04/09/23 Amara Palacio, LEILA [address] [place] [address] Referring Family Medicine 02/20/22 Mar Ponce PA-C [address] [place] [address] 27366 Instructor Ballroom Dancing Internal Medicine 06/12/24 Curator Relationship Specialty Start Date End Date Reuben Agrawal PA-C [address] [place] [address] 20011 PCP - General Internal Medicine 04/09/23 Amara Palacio PARENT PARTNER [address] [place] [address] Referring Family Medicine 02/20/22 Mar Ponce PA-C [facility] [place] [address] Instructor Ballroom Dancing Internal Medicine 06/12/24 Curator Relationship Specialty Start Date End Date Reuben Agrawal PA-C [address] [place] [address] 06819 PCP - General Internal Medicine 04/09/23 Amara Palacio, PARENT PARTNER [address] [place] [address] Referring Family Medicine 02/20/22 Mar Ponce PA-C [address] [place] [address] 53413 Instructor Ballroom Dancing Internal Medicine 06/12/24 Curator Relationship Specialty Start Date End Date Reuben Agrawal PA-C [address] [place] [address] 98531 PCP - General Internal Medicine 04/09/23 Amara Palacio, LEILA [address] [place] [address] Referring Family Medicine 02/20/22 Curator Relationship Specialty Start Date End Date Reuben Agrawal PA-C [address] [place] [address] 17510 PCP - General Internal Medicine 04/09/23 Amara Palacio, PARENT PARTNER [address] [place] [address] Referring Family Medicine 02/20/22 Curator Relationship Specialty Start Date End Date Reuben Agrawal PA-C [address] [facility] [place] [address] PCP - General Internal Medicine 04/09/23 Amara Palacio, PARENT PARTNER [address] [place] [address] Referring Family Medicine 02/20/22 Curator Relationship Specialty Start Date End Date Reuben Agrawal PA-C [address] [place] [address] 45257 PCP - General Internal Medicine 04/09/23 Amara Palacio, PARENT PARTNER [address] [place] [address] Referring Family Medicine 02/20/22 Curator Relationship Specialty Start Date End Date Reuben Agrawal PA-C [address] [place] [address] 21510 PCP - General Internal Medicine 04/09/23 Amara Palacio, LEILA [address] [place] [address] Referring Family Medicine 02/20/22 Curator Relationship Specialty Start Date End Date Reuben Agrawal PA-C [address] [place] [address] 87690 PCP - General Internal Medicine 04/09/23 Amara Palacio, PARENT PARTNER [address] [place] [address] Referring Family Medicine 02/20/22 Curator Relationship Specialty Start Date End Date Reuben Agrawal PA-C [address] [place] [address] 98201 PCP - General Internal Medicine 04/09/23 Amara Palacio, PARENT PARTNER [address] [place] [address] Referring Family Medicine 02/20/22 Team Status: Active Member Role Status Dates NON STAFF Primary Care Provider Active Team Status: Inactive Member Role Status Dates Elizabeth Piedra APRN Attending Provider Active Start: November 07, 2024 End: November 07, 2024 NON STAFF Primary Care Provider Active Start: November 07, 2024 End: November 07, 2024 Curator Relationship Specialty Start Date End Date Reuben Agrawal PA-C [address] [place] [address] 72772 PCP - General Internal Medicine 04/09/23 Amara Palacio, LEILA [address] [place] [address] Referring Family Medicine 02/20/22 Curator Relationship Specialty Start Date End Date Reuben Agrawal PA-C [address] [place] [address] 55147 PCP - General Internal Medicine 04/09/23 Amara Palacio, PARENT PARTNER [address] [place] [address] Referring Family Medicine 02/20/22 Curator Relationship Specialty Start Date End Date Reuben gArawal PA-C [address] [place] [address] 83369 PCP - General Internal Medicine 04/09/23 Amara Palacio, PARENT PARTNER [address] [place] [address] Referring Family Medicine 02/20/22 Curator Relationship Specialty Start Date End Date Reuben Agrawal PA-C [address] [place] [address] 62882 PCP - General Internal Medicine 04/09/23 Amara Palaico, PARENT PARTNER [address] [place] [address] Referring Family Medicine 02/20/22 Curator Relationship Specialty Start Date End Date Reuben Agrawal PA-C [address] [place] [address] 74683 PCP - General Internal Medicine 04/09/23 Amara Palacio, PARENT PARTNER [address] [place] [address] Referring Family Medicine 02/20/22 Curator Relationship Specialty Start Date End Date Reuben Agrawal PA-C [address] [place] [address] 22005 PCP - General Internal Medicine 04/09/23 Amara Palacio, PARENT PARTNER [address] [place] [address] Referring Family Medicine 02/20/22 Curator Relationship Specialty Start Date End Date Reuben Agrawal PA-C [address] [place] [address] 46616 PCP - General Internal Medicine 04/09/23 Amara Palacio, PARENT PARTNER [address] [place] [address] Referring Family Medicine 02/20/22 Curator Relationship Specialty Start Date End Date Reuben Agrawal PA-C [address] [place] [address] 76314 PCP - General Internal Medicine 04/09/23 Amara Palacio, LEILA [facility] [place] [address] Referring Family Medicine 02/20/22 Curator Relationship Specialty Start Date End Date Reuben Agrawal PA-C [address] [place] [address] 27501 PCP - General Internal Medicine 04/09/23 Amara Palacio, PARENT PARTNER [address] [place] [address] Referring Family Medicine 02/20/22 Curator Relationship Specialty Start Date End Date Reuben Agrawal PA-C [address] [place] [address] 30577 PCP - General Internal Medicine 04/09/23 Amara Palacio, PARENT PARTNER [address] [place] [address] Referring Family Medicine 02/20/22 Curator Relationship Specialty Start Date End Date Reuben Agrawal PA-C [address] [place] [address] PCP - General Internal Medicine 04/09/23 Amara Palacio CNP [address] [place] [address] [place] [address] Referring Family Medicine 02/20/22 Source Comments (unrecognize d section and content) In the event this informatio n is protected by the Federal Confidentiality of Alcohol and Drug Abuse Patient Records regulations: The Federal rules restrict any use of the information to criminally investigate or prosecute any alcohol or drug abuse patient.[facility] HospitalIn the event this information is protected by the Federal Confidentiality of Alcohol and Drug Abuse Patient Records regulations: The Federal rules restrict any use of the information to criminally investigate or prosecute any alcohol or drug abuse patient.[facility] HospitalIn the event this information is protected by the Federal Confidentiality of Alcohol and Drug Abuse Patient Records regulations: The Federal rules restrict any use of the information to criminally investigate or prosecute any alcohol or drug abuse patient.[facility] HospitalIn the event this information is protected by the Federal Confidentiality of Alcohol and Drug Abuse Patient Records regulations: The Federal rules restrict any use of the information to criminally investigate or prosecute any alcohol or drug abuse patient.[facility] HospitalIn the event this information is protected by the Federal Confidentiality of Alcohol and Drug Abuse Patient Records regulations: The Federal rules restrict any use of the information to criminally investigate or prosecute any alcohol or drug abuse patient.[facility] HospitalIn the event this information is protected by the Federal Confidentiality of Alcohol and Drug Abuse Patient Records regulations: The Federal rules restrict any use of the information to criminally investigate or prosecute any alcohol or drug abuse patient.[facility] HospitalIn the event this information is protected by the Federal Confidentiality of Alcohol and Drug Abuse Patient Records regulations: The Federal rules restrict any use of the information to criminally investigate or prosecute any alcohol or drug abuse patient.[facility] HospitalIn the event this information is protected by the Federal Confidentiality of Alcohol and Drug Abuse Patient Records regulations: The Federal rules restrict any use of the information to criminally investigate or prosecute any alcohol or drug abuse patient.[facility] HospitalIn the event this information is protected by the Federal Confidentiality of Alcohol and Drug Abuse Patient Records regulations: The Federal rules restrict any use of the information to criminally investigate or prosecute any alcohol or drug abuse patient.[facility] HospitalIn the event this information is protected by the Federal Confidentiality of Alcohol and Drug Abuse Patient Records regulations: The Federal rules restrict any use of the information to criminally investigate or prosecute any alcohol or drug abuse patient.[facility] HospitalIn the event this information is protected by the Federal Confidentiality of Alcohol and Drug Abuse Patient Records regulations: The Federal rules restrict any use of the information to criminally investigate or prosecute any alcohol or drug abuse patient.[facility] HospitalIn the event this information is protected by the Federal Confidentiality of Alcohol and Drug Abuse Patient Records regulations: The Federal rules restrict any use of the information to criminally investigate or prosecute any alcohol or drug abuse patient.[facility] HospitalIn the event this information is protected by the Federal Confidentiality of Alcohol and Drug Abuse Patient Records regulations: The Federal rules restrict any use of the information to criminally investigate or prosecute any alcohol or drug abuse patient.[facility] HospitalIn the event this information is protected by the Federal Confidentiality of Alcohol and Drug Abuse Patient Records regulations: The Federal rules restrict any use of the information to criminally investigate or prosecute any alcohol or drug abuse patient.[facility] HospitalIn the event this information is protected by the Federal Confidentiality of Alcohol and Drug Abuse Patient Records regulations: The Federal rules restrict any use of the information to criminally investigate or prosecute any alcohol or drug abuse patient.[facility] HospitalIn the event this information is protected by the Federal Confidentiality of Alcohol and Drug Abuse Patient Records regulations: The Federal rules restrict any use of the information to criminally investigate or prosecute any alcohol or drug abuse patient.[facility] HospitalIn the event this information is protected by the Federal Confidentiality of Alcohol and Drug Abuse Patient Records regulations: The Federal rules restrict any use of the information to criminally investigate or prosecute any alcohol or drug abuse patient.[facility] HospitalIn the event this information is protected by the Federal Confidentiality of Alcohol and Drug Abuse Patient Records regulations: The Federal rules restrict any use of the information to criminally investigate or prosecute any alcohol or drug abuse patient.[facility] HospitalIn the event this information is protected by the Federal Confidentiality of Alcohol and Drug Abuse Patient Records regulations: The Federal rules restrict any use of the information to criminally investigate or prosecute any alcohol or drug abuse patient.[facility] HospitalIn the event this information is protected by the Federal Confidentiality of Alcohol and Drug Abuse Patient Records regulations: The Federal rules restrict any use of the information to criminally investigate or prosecute any alcohol or drug abuse patient.[facility] HospitalIn the event this information is protected by the Federal Confidentiality of Alcohol and Drug Abuse Patient Records regulations: The Federal rules restrict any use of the information to criminally investigate or prosecute any alcohol or drug abuse patient.[facility] HospitalIn the event this information is protected by the Federal Confidentiality of Alcohol and Drug Abuse Patient Records regulations: The Federal rules restrict any use of the information to criminally investigate or prosecute any alcohol or drug abuse patient.[facility] HospitalIn the event this information is protected by the Federal Confidentiality of Alcohol and Drug Abuse Patient Records regulations: The Federal rules restrict any use of the information to criminally investigate or prosecute any alcohol or drug abuse patient.[facility] HospitalIn the event this information is protected by the Federal Confidentiality of Alcohol and Drug Abuse Patient Records regulations: The Federal rules restrict any use of the information to criminally investigate or prosecute any alcohol or drug abuse patient.[facility] HospitalIn the event this information is protected by the Federal Confidentiality of Alcohol and Drug Abuse Patient Records regulations: The Federal rules restrict any use of the information to criminally investigate or prosecute any alcohol or drug abuse patient.[facility] HospitalIn the event this information is protected by the Federal Confidentiality of Alcohol and Drug Abuse Patient Records regulations: The Federal rules restrict any use of the information to criminally investigate or prosecute any alcohol or drug abuse patient.[facility] HospitalIn the event this information is protected by the Federal Confidentiality of Alcohol and Drug Abuse Patient Records regulations: The Federal rules restrict any use of the information to criminally investigate or prosecute any alcohol or drug abuse patient.[facility] HospitalIn the event this information is protected by the Federal Confidentiality of Alcohol and Drug Abuse Patient Records regulations: The Federal rules restrict any use of the information to criminally investigate or prosecute any alcohol or drug abuse patient.[facility] HospitalIn the event this information is protected by the Federal Confidentiality of Alcohol and Drug Abuse Patient Records regulations: The Federal rules restrict any use of the information to criminally investigate or prosecute any alcohol or drug abuse patient.[facility] HospitalIn the event this information is protected by the Federal Confidentiality of Alcohol and Drug Abuse Patient Records regulations: The Federal rules restrict any use of the information to criminally investigate or prosecute any alcohol or drug abuse patient.[facility] HospitalIn the event this information is protected by the Federal Confidentiality of Alcohol and Drug Abuse Patient Records regulations: The Federal rules restrict any use of the information to criminally investigate or prosecute any alcohol or drug abuse patient.[facility] HospitalIn the event this information is protected by the Federal Confidentiality of Alcohol and Drug Abuse Patient Records regulations: The Federal rules restrict any use of the information to criminally investigate or prosecute any alcohol or drug abuse patient.[facility] HospitalIn the event this information is protected by the Federal Confidentiality of Alcohol and Drug Abuse Patient Records regulations: The Federal rules restrict any use of the information to criminally investigate or prosecute any alcohol or drug abuse patient.[facility] HospitalIn the event this information is protected by the Federal Confidentiality of Alcohol and Drug Abuse Patient Records regulations: The Federal rules restrict any use of the information to criminally investigate or prosecute any alcohol or drug abuse patient.[facility] HospitalIn the event this information is protected by the Federal Confidentiality of Alcohol and Drug Abuse Patient Records regulations: The Federal rules restrict any use of the information to criminally investigate or prosecute any alcohol or drug abuse patient.[facility] HospitalIn the event this information is protected by the Federal Confidentiality of Alcohol and Drug Abuse Patient Records regulations: The Federal rules restrict any use of the information to criminally investigate or prosecute any alcohol or drug abuse patient.[facility] HospitalIn the event this information is protected by the Federal Confidentiality of Alcohol and Drug Abuse Patient Records regulations: The Federal rules restrict any use of the information to criminally investigate or prosecute any alcohol or drug abuse patient.[facility] HospitalIn the event this information is protected by the Federal Confidentiality of Alcohol and Drug Abuse Patient Records regulations: The Federal rules restrict any use of the information to criminally investigate or prosecute any alcohol or drug abuse patient.[facility] HospitalIn the event this information is protected by the Federal Confidentiality of Alcohol and Drug Abuse Patient Records regulations: The Federal rules restrict any use of the information to criminally investigate or prosecute any alcohol or drug abuse patient.[facility] HospitalIn the event this information is protected by the Federal Confidentiality of Alcohol and Drug Abuse Patient Records regulations: The Federal rules restrict any use of the information to criminally investigate or prosecute any alcohol or drug abuse patient.[facility] HospitalIn the event this information is protected by the Federal Confidentiality of Alcohol and Drug Abuse Patient Records regulations: The Federal rules restrict any use of the information to criminally investigate or prosecute any alcohol or drug abuse patient.[facility] HospitalIn the event this information is protected by the Federal Confidentiality of Alcohol and Drug Abuse Patient Records regulations: The Federal rules restrict any use of the information to criminally investigate or prosecute any alcohol or drug abuse patient.[facility] HospitalIn the event this information is protected by the Federal Confidentiality of Alcohol and Drug Abuse Patient Records regulations: The Federal rules restrict any use of the information to criminally investigate or prosecute any alcohol or drug abuse patient.[facility] HospitalIn the event this information is protected by the Federal Confidentiality of Alcohol and Drug Abuse Patient Records regulations: The Federal rules restrict any use of the information to criminally investigate or prosecute any alcohol or drug abuse patient.[facility] HospitalIn the event this information is protected by the Federal Confidentiality of Alcohol and Drug Abuse Patient Records regulations: The Federal rules restrict any use of the information to criminally investigate or prosecute any alcohol or drug abuse patient.[facility] HospitalIn the event this information is protected by the Federal Confidentiality of Alcohol and Drug Abuse Patient Records regulations: The Federal rules restrict any use of the information to criminally investigate or prosecute any alcohol or drug abuse patient.[facility] HospitalIn the event this information is protected by the Federal Confidentiality of Alcohol and Drug Abuse Patient Records regulations: The Federal rules restrict any use of the information to criminally investigate or prosecute any alcohol or drug abuse patient.[facility] HospitalIn the event this information is protected by the Federal Confidentiality of Alcohol and Drug Abuse Patient Records regulations: The Federal rules restrict any use of the information to criminally investigate or prosecute any alcohol or drug abuse patient.[facility] HospitalIn the event this information is protected by the Federal Confidentiality of Alcohol and Drug Abuse Patient Records regulations: The Federal rules restrict any use of the information to criminally investigate or prosecute any alcohol or drug abuse patient.[facility] HospitalIn the event this information is protected by the Federal Confidentiality of Alcohol and Drug Abuse Patient Records regulations: The Federal rules restrict any use of the information to criminally investigate or prosecute any alcohol or drug abuse patient.[facility] HospitalIn the event this information is protected by the Federal Confidentiality of Alcohol and Drug Abuse Patient Records regulations: The Federal rules restrict any use of the information to criminally investigate or prosecute any alcohol or drug abuse patient.[facility] HospitalIn the event this information is protected by the Federal Confidentiality of Alcohol and Drug Abuse Patient Records regulations: The Federal rules restrict any use of the information to criminally investigate or prosecute any alcohol or drug abuse patient.[facility] HospitalIn the event this information is protected by the Federal Confidentiality of Alcohol and Drug Abuse Patient Records regulations: The Federal rules restrict any use of the information to criminally investigate or prosecute any alcohol or drug abuse patient.[facility] HospitalIn the event this information is protected by the Federal Confidentiality of Alcohol and Drug Abuse Patient Records regulations: The Federal rules restrict any use of the information to criminally investigate or prosecute any alcohol or drug abuse patient.[facility] HospitalIn the event this information is protected by the Federal Confidentiality of Alcohol and Drug Abuse Patient Records regulations: The Federal rules restrict any use of the information to criminally investigate or prosecute any alcohol or drug abuse patient.[facility] HospitalIn the event this information is protected by the Federal Confidentiality of Alcohol and Drug Abuse Patient Records regulations: The Federal rules restrict any use of the information to criminally investigate or prosecute any alcohol or drug abuse patient.[facility] HospitalIn the event this information is protected by the Federal Confidentiality of Alcohol and Drug Abuse Patient Records regulations: The Federal rules restrict any use of the information to criminally investigate or prosecute any alcohol or drug abuse patient.[facility] HospitalIn the event this information is protected by the Federal Confidentiality of Alcohol and Drug Abuse Patient Records regulations: The Federal rules restrict any use of the information to criminally investigate or prosecute any alcohol or drug abuse patient.[facility] HospitalIn the event this information is protected by the Federal Confidentiality of Alcohol and Drug Abuse Patient Records regulations: The Federal rules restrict any use of the information to criminally investigate or prosecute any alcohol or drug abuse patient.[facility] HospitalIn the event this information is protected by the Federal Confidentiality of Alcohol and Drug Abuse Patient Records regulations: The Federal rules restrict any use of the information to criminally investigate or prosecute any alcohol or drug abuse patient.[facility] HospitalIn the event this information is protected by the Federal Confidentiality of Alcohol and Drug Abuse Patient Records regulations: The Federal rules restrict any use of the information to criminally investigate or prosecute any alcohol or drug abuse patient.[facility] HospitalIn the event this information is protected by the Federal Confidentiality of Alcohol and Drug Abuse Patient Records regulations: The Federal rules restrict any use of the information to criminally investigate or prosecute any alcohol or drug abuse patient.[facility] HospitalIn the event this information is protected by the Federal Confidentiality of Alcohol and Drug Abuse Patient Records regulations: The Federal rules restrict any use of the information to criminally investigate or prosecute any alcohol or drug abuse patient.[facility] HospitalIn the event this information is protected by the Federal Confidentiality of Alcohol and Drug Abuse Patient Records regulations: The Federal rules restrict any use of the information to criminally investigate or prosecute any alcohol or drug abuse patient.[facility] HospitalIn the event this information is protected by the Federal Confidentiality of Alcohol and Drug Abuse Patient Records regulations: The Federal rules restrict any use of the information to criminally investigate or prosecute any alcohol or drug abuse patient.[facility] HospitalIn the event this information is protected by the Federal Confidentiality of Alcohol and Drug Abuse Patient Records regulations: The Federal rules restrict any use of the information to criminally investigate or prosecute any alcohol or drug abuse patient.[facility] HospitalIn the event this information is protected by the Federal Confidentiality of Alcohol and Drug Abuse Patient Records regulations: The Federal rules restrict any use of the information to criminally investigate or prosecute any alcohol or drug abuse patient.[facility] HospitalIn the event this information is protected by the Federal Confidentiality of Alcohol and Drug Abuse Patient Records regulations: The Federal rules restrict any use of the information to criminally investigate or prosecute any alcohol or drug abuse patient.[facility] HospitalIn the event this information is protected by the Federal Confidentiality of Alcohol and Drug Abuse Patient Records regulations: The Federal rules restrict any use of the information to criminally investigate or prosecute any alcohol or drug abuse patient.[facility] HospitalIn the event this information is protected by the Federal Confidentiality of Alcohol and Drug Abuse Patient Records regulations: The Federal rules restrict any use of the information to criminally investigate or prosecute any alcohol or drug abuse patient.[facility] HospitalIn the event this information is protected by the Federal Confidentiality of Alcohol and Drug Abuse Patient Records regulations: The Federal rules restrict any use of the information to criminally investigate or prosecute any alcohol or drug abuse patient.[facility] HospitalIn the event this information is protected by the Federal Confidentiality of Alcohol and Drug Abuse Patient Records regulations: The Federal rules restrict any use of the information to criminally investigate or prosecute any alcohol or drug abuse patient.[facility] HospitalIn the event this information is protected by the Federal Confidentiality of Alcohol and Drug Abuse Patient Records regulations: The Federal rules restrict any use of the information to criminally investigate or prosecute any alcohol or drug abuse patient.[facility] HospitalIn the event this information is protected by the Federal Confidentiality of Alcohol and Drug Abuse Patient Records regulations: The Federal rules restrict any use of the information to criminally investigate or prosecute any alcohol or drug abuse patient.[facility] HospitalIn the event this information is protected by the Federal Confidentiality of Alcohol and Drug Abuse Patient Records regulations: The Federal rules restrict any use of the information to criminally investigate or prosecute any alcohol or drug abuse patient.[facility] HospitalIn the event this information is protected by the Federal Confidentiality of Alcohol and Drug Abuse Patient Records regulations: The Federal rules restrict any use of the information to criminally investigate or prosecute any alcohol or drug abuse patient.[facility] HospitalIn the event this information is protected by the Federal Confidentiality of Alcohol and Drug Abuse Patient Records regulations: The Federal rules restrict any use of the information to criminally investigate or prosecute any alcohol or drug abuse patient.[facility] HospitalIn the event this information is protected by the Federal Confidentiality of Alcohol and Drug Abuse Patient Records regulations: The Federal rules restrict any use of the information to criminally investigate or prosecute any alcohol or drug abuse patient.[facility] HospitalIn the event this information is protected by the Federal Confidentiality of Alcohol and Drug Abuse Patient Records regulations: The Federal rules restrict any use of the information to criminally investigate or prosecute any alcohol or drug abuse patient.[facility] HospitalIn the event this information is protected by the Federal Confidentiality of Alcohol and Drug Abuse Patient Records regulations: The Federal rules restrict any use of the information to criminally investigate or prosecute any alcohol or drug abuse patient.[facility] HospitalIn the event this information is protected by the Federal Confidentiality of Alcohol and Drug Abuse Patient Records regulations: The Federal rules restrict any use of the information to criminally investigate or prosecute any alcohol or drug abuse patient.[facility] HospitalIn the event this information is protected by the Federal Confidentiality of Alcohol and Drug Abuse Patient Records regulations: The Federal rules restrict any use of the information to criminally investigate or prosecute any alcohol or drug abuse patient.[facility] HospitalIn the event this information is protected by the Federal Confidentiality of Alcohol and Drug Abuse Patient Records regulations: The Federal rules restrict any use of the information to criminally investigate or prosecute any alcohol or drug abuse patient.[facility] HospitalIn the event this information is protected by the Federal Confidentiality of Alcohol and Drug Abuse Patient Records regulations: The Federal rules restrict any use of the information to criminally investigate or prosecute any alcohol or drug abuse patient.[facility] HospitalIn the event this information is protected by the Federal Confidentiality of Alcohol and Drug Abuse Patient Records regulations: The Federal rules restrict any use of the information to criminally investigate or prosecute any alcohol or drug abuse patient.[facility] HospitalIn the event this information is protected by the Federal Confidentiality of Alcohol and Drug Abuse Patient Records regulations: The Federal rules restrict any use of the information to criminally investigate or prosecute any alcohol or drug abuse patient.[facility] HospitalIn the event this information is protected by the Federal Confidentiality of Alcohol and Drug Abuse Patient Records regulations: The Federal rules restrict any use of the information to criminally investigate or prosecute any alcohol or drug abuse patient.[facility] HospitalIn the event this information is protected by the Federal Confidentiality of Alcohol and Drug Abuse Patient Records regulations: The Federal rules restrict any use of the information to criminally investigate or prosecute any alcohol or drug abuse patient.[facility] HospitalIn the event this information is protected by the Federal Confidentiality of Alcohol and Drug Abuse Patient Records regulations: The Federal rules restrict any use of the information to criminally investigate or prosecute any alcohol or drug abuse patient.[facility] HospitalIn the event this information is protected by the Federal Confidentiality of Alcohol and Drug Abuse Patient Records regulations: The Federal rules restrict any use of the information to criminally investigate or prosecute any alcohol or drug abuse patient.[facility] HospitalIn the event this information is protected by the Federal Confidentiality of Alcohol and Drug Abuse Patient Records regulations: The Federal rules restrict any use of the information to criminally investigate or prosecute any alcohol or drug abuse patient.[facility] Reason for Visit (unrecogniz ed section and content) Reason Comments Eval for Fecal Transplant C Diff since A pril- 3 rounds of antibiotics and nothing is helping Specialty Diagnoses / Procedures Referred By Contact Referred To Contact Gastroenterology / GASTROENTEROLOGY Diagnoses Evaluation of FMT (Fecal Transplant). Procedures NEW DDI PATIENT Amara Palacio, PARENT PARTNER [address] [place] [address] Brooks Lamb MD [address] [facility] [place] [address] Referral ID Status Reason Start Date Expiration Date V isits Requested Visits Authorized [id number] Closed OON/Self Pay Override 03/19/2022 05/18/2022 1 1 Reason Comments Patient Update Reason Comments Follow Up Reason Comments Follow Up Specialty Diagnoses / Procedures Referred By Contac t Referred To Contact Neurology / NEUROMUSCULAR Diagnoses TMJ follow up, back/neck pain Procedures EST NI PATIENT aSra Patelela Kathryn, PARENT PARTNER [address] [place] [address] Tristan Guallpa MD [address] [place] [address] Referral ID Status Reason Start Date Expiration Date V isits Requested Visits Authorized [id number] Outside PCP 03/05/2023 05/04/2023 1 1 Reason Comments New Patient Specialty Diagnoses / Procedures Referred By Contac t Referred To Contact Neurosurgery Diagnoses Chiari malformation type I (HCC) Procedures CONSULT TO NEUROSURGERY OFFICE/OUTPATIENT NEW HIGH MDM 60-74 MINUTES Tristan Guallpa MD [address] [place] [address] Referral ID Status Reason Start Date Expiration Date V isits Requested Visits Authorized [id number] Closed PCP Requested Referral 03/05/2023 03/04/2024 1 1 Reason Comments Patient Update Patient Question Orders Reason Comments Multiple Concerns Cardiology referral extensive health history would like care moved to [facility] Specialty Diagnoses / Procedures Referred By Contac t Referred To Contact Diagnoses Evaluation Procedures VIRTUAL VISIT MNT, GILBERTO CADE EA. 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 Requ est Reason Comments [facility] Inpatient/Outpatient M edical Record Reque Reason Comments [facility] Medical Records R equest Reason Comments Establish Care Patient has no sarika rns, will like to establish care with a PCP Specialty Diagnoses / Procedures Referred By Contac t Referred To Contact Diagnoses Establish care with PCP Procedures Establish Care with PCP Maurice Edward MD [address] [facility] [address] [place] [address] [facility] [address] Referral ID Status Reason Start Date Expiration Date V isits Requested Visits Authorized [id number] New Request 04/09/2023 07/08/2023 99 99 Reason [...] [M50.30] Procedures NEW MEDICAL Reuben Agrawal PA-C [address] [place] [address] Rukhsana Webb, PULVERIZER FEEDER.PARENT PARTNER [address] [place] [address] Referral ID Status Reason Start Date Expiration Date V isits Requested Visits Authorized [id number] Pending Review 06/18/2023 08/17/2023 1 1 Reason Comments New Patient Neck pain Reason Comments Follow Up Neck and arm pain Reason Comments Patient Update Patient Question Reason Comments Appointment Reason Comments [facility] Readers' Advisory Service Librarian apy Re-certification Note Reason Comments Established Patient Neck Pain Reason Comments Telemedicine Reason Onset Date Comments Refill Request 09/24/2023 Reason Comments Follow Up 6 wk post op Reason Comments Refill Request Specialty Diagnoses / Procedures Referred By Contac t Referred To Contact [facility] Diagnoses Chiari I malformation (HCC) Procedures MRI CERVICAL SPINE WO IVCON MRI SPINAL CANAL CERVICAL W/O CONTRAST Zoraida Jeong PA-C [address] [place] [address] [place] [address] Referral ID Status Reason Start Date Expiration Date V isits Requested Visits Authorized [id number] Closed Auto-Generate d Referral 03/31/2023 04/30/2023 1 1 Reason Comments Post-op Visit Reason Onset Date Comments Refill Request 07/31/2024 Reason Comments Post Op 1 year imaging done Reason Comments Yearly Exam Wants to discuss philip wilkins Reason Comments Letter Reason Comments Orders PT: Initial Exam Reason Onset Date Comments Refill Request 10/23/2024 Reason Comments Follow Up Reason Comments Radiology Mammogram Specialty Diagnoses / Procedures Referred By Contac t Referred To Contact [facility] Diagnoses Screening mammogram, encounter for Procedures HE SCREENING W JUSTO SCREENING DIGITAL BREAST TOMOSYNTHESIS BI SCREENING MAMMOGRAPHY BI 2-VIEW BREAST INC CAD Reuben Agrawal PA-C [address] [place] [address] Phone: tel: fax: [facility] [address] [place] [address] Referral ID Status Reason Start Date Expiration Date V isits Requested Visits Authorized [id number] Closed Auto-Generate d Referral 10/05/2024 11/04/2025 1 1 Reason Onset Date Comments Refill Request 01/18/2025 Reason Comments Insurance Authorization Reason Comments Request Outside Medical Records [facility] Reason Comments Follow Up Was put on a new med ication, doesn't remember the name of it, it is for depression Reason Comments Spirometry Specialty Diagnoses / Procedures Referred By Contac t Referred To Contact [facility] Diagnoses SOB (shortness of breath) Wheezing Procedures SPIROMETRY - BASELINE AND POST DILATOR BRNCDILAT RSPSE SPMTRY PRE&POST-BRNCDILAT Franchesca Rausch MD [address] [facility] [place] [address] Phone: tel: fax: [facility] [address] [place] [address] Referral ID Status Reason Start Date Expiration Date V isits Requested Visits Authorized [id number] Closed Auto-Generate d Referral 12/28/2024 07/04/2025 1 1 Specialty Diagnoses / Procedures Referred By Contac t Referred To Contact [facility] Diagnoses SOB (shortness of breath) Wheezing Procedures LUNG DIFFUSION CAPACITY (DLCO) DIFFUSING CAPACITY Franchesca Low MD [address] [facility] [place] [address] Phone: tel: fax: [facility] [address] [place] [id number] Referral ID Status Reason Start Date Expiration Date V isits Requested Visits Authorized [id number] Closed Auto-Generate d Referral 12/28/2024 07/04/2025 1 1 Reason Comments Received Outside Medical Records Reason Comments Back Pain Upper back and neck pain worse in the last few months Goals (unrecognized section and content) Goals may [...] BE BASED ON THE PRIMARY CLINICAL RECORDS. [employer] provides no warranty or guarantee of the accuracy or completeness of information in this document.
--- NOTE | 2025-04-05 20:16 | PC.NURSE ---
patient called out with her call light asking if she could go home. RN went down and discussed with her. Patient asked Can I go home? RN explained to patient that it was in her best interest to stay but if she really wanted to go home, she would have to fill out an AMA form. RN explained to patient the details about an AMA form. Patient still stated she wanted to leave, stated she was too irritable and fidgety to stay. An AMA form was filled out and signed and placed in patient's chart. I.V.'s were removed from both arms. Doctor was notified. Patient was walked out by security.
--- NOTE | 2025-04-06 09:15 | P.DS_ITS ---
DS: Providers Provider Date of admission: 04/05/25 13:27 Primary care physician: SHALONDA Bo DS: Diagnosis Discharge Diagnosis (1) Intractable nausea: (2) Abdominal pain: (3) Polypharmacy: (4) Fatty liver: (5) Right bundle branch block: (6) SIRS (systemic inflammatory response syndrome): (7) Marijuana use: (8) Vaping nicotine dependence, non-tobacco product: (9) Acute distention of stomach: Plan As listed above, below and others that are not listed DS: Summary Hospital Course Hospital Course: Mrs. Byers is a 40-year-old female who came in with abdominal pain, nausea and vomiting. Nausea and vomiting Large distended stomach on CT SIRS present on admission. No clinical evidence of active infection at this time. Suspect gastroparesis which could be related to medication side effect. Suspect but not confirmed gastric outlet obstruction. Patient is taking few medications that could cause gastroparesis including but not limited to clonidine, dicyclomine, gabapentin, Zofran, tizanidine. Patient also reported using marijuana that potentially could cause marijuana hyperemesis syndrome. Try to simplify her regimen, eliminate some of the medications Started her on PPI intravenously. Keep her n.p.o. for 12 hours. If no resolution of her symptoms by tomorrow I would recommend additional studies such as gastric emptying study. Chronic right bundle branch block associated with T wave abnormality I was able to track it down to February 2024. She might have had it even before that. No chest pain. Requested echocardiogram to rule out cardiomyopathy or significant valvular disease or pulmonary hypertension. Fibromyalgia and migraine Minimize her medication regimen. Follow-up in the outpatient setting. Polypharmacy Patient is on multiple medications that potentially could cause drug?drug interaction or side effects. Side effect include but not limited to gastroparesis, [employer] depression, respiratory depression, GI symptoms, cardiac dysrhythmia and others. I strongly recommend patient to go over her medication regimen with her primary care doctor and psychiatrist to reduce her risk having adverse effect. I need to be cautious not to stop multiple medications at the same time fearing that she may go into withdrawal. This should be done in a gradual fashion in the outpatient setting. Vaping and marijuana use Counseling and education are provided. Chronic, subacute medical conditions not listed above, abnormal labs and imaging. These would need to be addressed. Could be addressed later on or in the outpatient setting by PCP collaboration with other needed outpatient providers when time and condition are appropriate. Unfortunately, last evening decided to leave AMA despite nursing education about the potential risk and implication. Unfortunately patient decided to leave prematurely prior to final diagnosis is reached and without appropriate discharge medications, instructions and follow- up putting her at potential risk having decompensation of condition, collapsible organ function, disability, psychological distress and even . Patient insisted on leaving AGAINST MEDICAL ADVICE. We do not have legal authority to the patient in the hospital against her well. Patient was released out of the hospital. Time Spent with Patient Time attestation: Total time spent providing and/or coordinating discharge services: Exam Constitutional Vital Signs, click to edit/add: Last Vital Signs Temp 98.2 F 04/05/25 20:00 Pulse 83 04/05/25 20:00 Resp 18 04/05/25 20:00 BP 143/92 H 04/05/25 20:00 Pulse Ox 96 04/05/25 20:00 O2 Del Method Room Air 04/05/25 20:00 DS: Data Data Completed and Pending Labs on day of discharge: Labs from last 24 hours 04/05/25 18:10 Urine Color Yellow Urine Clarity Clear Urine pH 6.5 Ur Specific [place] 1.010 Urine Protein Trace Urine Glucose (UA) Negative Urine Ketones >=80 A Urine Occult Blood Negative Urine Nitrite Negative Urine Bilirubin Negative Urine Urobilinogen 1.0 Ur Leukocyte Esterase Negative Urine RBC 0-2 Urine WBC 0-2 A Ur Squamous Epith Cells Few A Urine Crystals None seen Urine Bacteria Trace A Urine Casts None seen Urine Mucus Small A Ur Culture Indicated? No Urine Opiates Screen Positive A Ur Buprenorphine Scrn Negative Ur Oxycodone Screen Negative Urine Methadone Screen Negative Ur Barbiturates Screen Negative U Tricyclic Antidepress Negative Ur Phencyclidine Scrn Negative Ur Amphetamines Screen Positive A U Methamphetamines Scrn Negative U Benzodiazepines Scrn Negative Urine Cocaine Screen Negative U Cannabinoids Screen Positive A Discharge Plan Discharge Disposition: Left Against Medical Advice Discharge Date/Time: 04/05/25 20:37
== END 2025-04-05 20:37 | disposition left against medical advice (07) ==
LOC: ER 10:46 → MS 13:30
PROVIDERS: Admitting Provider Internal Medicine; Emergency Provider Emergency Medicine; PCP Physician Assistant; Visit Provider Internal Medicine
DX: R11.2 Nausea with vomiting, unspecified (principal); R10.9 Unspecified abdominal pain; Z53.29 Procedure and treatment not carried out because of patient's decision for other reasons; K76.0 Fatty (change of) liver, not elsewhere classified; I45.10 Unspecified right bundle-branch block; R65.10 Systemic inflammatory response syndrome (SIRS) of non-infectious origin without acute organ dysfunction; F12.90 Cannabis use, unspecified, uncomplicated; K31.0 Acute dilatation of stomach; Z79.899 Other long term (current) drug therapy; K29.70 Gastritis, unspecified, without bleeding; M79.7 Fibromyalgia; G43.909 Migraine, unspecified, not intractable, without status migrainosus; F17.290 Nicotine dependence, other tobacco product, uncomplicated
CPT/HCPCS: 36415; 74022; 74177; 80053; 80307; 81001; 83605; 83690; 85025; 93005; 93306; 96361; 96365; 96372; 96375; 96376; 99285; G0378; J0780; J1630; J1650; J1885; J2270; J2405; J2550; Q9967

== ENCOUNTER 2025-05-15 09:27 | Outpatient (OUT) | payer OTHER, SELFPAY ==
[2025-05-15 10:05] LABS: Hematocrit 40.8 % (36.0-48.0); Hemoglobin 14.1 g/dL (12.0-16.0); Immature Granulocytes Abs Auto 0.02 10^3/uL (0.00-0.03); Immature Granulocytes Pct Auto 0.3 % (0.0-0.5); Lymphocytes Absolute Auto 3.0 10^3/uL (1.2-3.8); Mean Corpuscular HGB Conc 34.6 g/dL (29.9-35.2); Mean Corpuscular Hemoglobin 30.4 pg (26.7-34.0); Mean Corpuscular Volume 87.9 fL (81.0-99.0); Platelet Count 354 10^3/uL (150-450); Red Blood Count 4.64 10^6/uL (4.20-5.40); White Blood Count 7.6 10^3/uL (4.0-11.0)
[2025-05-15 10:24] LABS: Alanine Aminotransferase 31 U/L (14-59); Albumin Globulin Ratio 1.1; Albumin Level 4.0 g/dL (3.4-5.0); Alkaline Phosphatase 89 U/L (46-116); Anion Gap 16.4; Aspartate Amino Transferase 19 U/L (15-37); Blood Urea Nitrogen 9.0 mg/dL (7.0-18.0); Calcium 9.5 mg/dL (8.5-10.1); Carbon Dioxide 26.8 mmol/L (21.0-32.0); Chloride 103 mmol/L (98-107); Cholesterol 255 mg/dL (<=200); Estimated GFR (African America >60 (>=60 mL/min/1.73m^2); Estimated GFR (Non-African Ame 52 (>=60 mL/min/1.73m^2); Globulin 3.5 g/dL; Glucose 91 mg/dL (74-106); HDL Cholesterol 59 mg/dL (40-60); Potassium 4.2 mmol/L (3.5-5.1); Sodium 142 mmol/L (136-145); Thyroid Stimulating Hormone 1.944 uIU/mL (0.358-3.740); Total Protein 7.5 g/dL (6.4-8.2); Triglycerides 144 mg/dL (<=150); VLDL CHOLESTEROL 28.8 mg/dL
[2025-05-17 13:09] LABS: Calcitriol(1,25 di-OH Vit D) 58.6 pg/mL (24.8-81.5)
== END 2025-05-15 09:28 | disposition home or self-care (01) ==
LOC: LAB 09:29
PROVIDERS: PCP Physician Assistant; Visit Provider Nurse Practitioner Psychiatric/Mental Health
DX: F31.30 Bipolar disorder, current episode depressed, mild or moderate severity, unspecified (principal)
CPT/HCPCS: 36415; 80053; 80061; 82652; 84443; 85025